=== PATIENT | male | born 1945 | race Caucasian/White ===

== ENCOUNTER 2016-06-08 08:16 | Day surgery (SDC) | payer MEDICARE ==
[2016-06-02 12:48] VITALS: BMI 37.3
[~2016-06-08 08:16] MED LIST: LACTATED RINGERS 1,000 ML IV SCH
[2016-06-08 08:49] VITALS: RESP 18; TEMP 97.9
[2016-06-08] MEDS ORDERED: PROPOFOL 10 MG/ML 20 ML VIAL IV ONE (08:55)
--- NOTE | 2016-06-08 09:35 | P.PCN ---
Date of Procedure: 06/08/16 Procedure(s) Performed: Procedure: Colonoscopy and polypectomy. Preoperative diagnosis: Hemoccult-positive stools. Postoperative diagnosis: 1. Small/diminutive sigmoid polyps snared but no large polyps or cancer. 2. Sigmoid diverticulosis with no evidence of acute diverticulitis or strictures. 3. Low-grade internal hemorrhoids not bleeding at the time of this exam. Preparation: HalfLytely prep. Sedation: Was provided by anesthesia. Brief clinical history: The patient is a 70-year-old male who is referred for this evaluation for screening for neoplasia because of finding of occult blood in his stools. He had no prior colonoscopy. The patient has rare intermittent rectal bleeding. No abdominal pains, change in bowel habits or any family history of colon cancer. This would be his first colonoscopy. Procedure: With the patient on his left lateral decubitus position and after informed consent and adequate sedation, the perianal area was inspected and it did not show any fissures or fistulas. There were no masses felt on digital rectal examination. The Olympus CFQ 160L video colonoscope was then inserted in the rectum in the usual fashion and advanced to the cecum. There were a few diverticular orifices seen scattered in the sigmoid with no evidence of acute diverticulitis or strictures. The mucosa appeared healthy. There were 2 small/ diminutive polyps in the distal sigmoid that I snared and retrieved by suction but there were no large polyps or cancer. I retroflexed endoscope in the rectum before the endoscope was withdrawn. Low-grade internal hemorrhoids were noted but there was no evidence of bleeding. The patient tolerated the procedure well. Plan: The patient was reassured. Discussed dietary measures and local care for hemorrhoids. Consideration can be given for repeat exam in 5 years depending on his overall health at that time. He will follow up with you as planned.
[2016-06-08 09:38] VITALS: BP 129/73; PULSE 90
== END 2016-06-08 09:56 | disposition home or self-care (01) ==
LOC: ORWHC2ENDO 08:16
DX: D12.5 Benign neoplasm of sigmoid colon (principal); K64.8 Other hemorrhoids; K92.1 Melena; K57.30 Diverticulosis of large intestine without perforation or abscess without bleeding; Z88.8 Allergy status to other drugs, medicaments and biological substances; Z79.899 Other long term (current) drug therapy
CPT/HCPCS: 88305; 45385; J2704; 99153

== ENCOUNTER → 2017-01-20 | Outpatient (CLI) | payer MEDICARE ==
[2017-01-20 17:56] LABS: Blood Urea Nitrogen 11 mg/dL (9-20); Non-African American GFR(MDRD) >60 (>60 ml/min/1.73 sqM)
--- NOTE | 2017-01-20 20:02 | CT ---
EXAMINATION TYPE: CT abdomen pelvis w con DATE OF EXAM: 01/20/2017 COMPARISON: 10/27/2010 HISTORY: Genrealized abdominal pain. CT DLP: 1776.8 mGycm Automated exposure control for dose reduction was used. TECHNIQUE: Helical acquisition of images was performed from the lung bases through the pelvis. CONTRAST: Performed with Oral Contrast and with IV Contrast, patient injected with 100 mL of Omnipaque 300. FINDINGS: Lung bases are clear of consolidation. There is no pleural effusion. Liver spleen pancreas gallbladder appear normal. Bile ducts are not dilated. There is no adrenal mass. There are multiple surgical clips related to right nephrectomy. Left kidney shows normal size and contour. There is no hydronephrosis. There is no retroperitoneal adenopathy. I see no intestinal wall thickening. There are no dilated loops. Bladder distends smoothly. Abdominal aorta is atheromatous. There are spondylotic changes in the lumbar spine with evidence for some mult ilevel lumbar spinal stenosis. There are a few diverticula in the sigmoid colon. IMPRESSION: RIGHT NEPHRECTOMY. NO EVIDENCE OF RECURRENT TUMOR. THERE IS CLEARING OF LEFT RENAL CORTICAL CYST COMP ARED TO OLD EXAM. ATHEROSCLEROTIC VASCULAR DISEASE. MILD COLONIC DIVERTICULOSIS. MILD MULTILEVEL LUMB AR SPINAL STENOSIS.
== END | disposition home or self-care (01) ==
LOC: RADCTMAIN 17:19
DX: K57.30 Diverticulosis of large intestine without perforation or abscess without bleeding (principal); I70.90 Unspecified atherosclerosis; Z90.5 Acquired absence of kidney
CPT/HCPCS: 82565; 84520; 74177; 36415; Q9967

== ENCOUNTER 2017-08-03 11:41 | Observation (INO) | payer MEDICARE ==
[2017-08-03] MEDS ORDERED: MECLIZINE 12.5 MG TAB PO STA (12:09)
--- NOTE | 2017-08-03 12:55 | CT ---
EXAMINATION TYPE: CT brain wo con DATE OF EXAM: 08/03/2017 COMPARISON: NONE HISTORY: Weak feeling, near syncopal CT DLP: [address] of the brain was performed. The ventricles, basal cisterns and sulci overlying the cerebral convexities demonstrate mild enlargem ent. There is no evidence for intracranial hemorrhage or sulcal effacement. There is decreased attenuation about the periventricular white matter and deep white matter of both c erebral hemispheres, compatible with chronic small vessel ischemia. Differential diagnosis does inclu de demyelination. No mass effects are seen.No midline shift. Osseous calvarium is intact. If symptoms persist consider MRI. IMPRESSION: 1. Age related atrophic and chronic small vessel ischemic change without acute intracranial process s een at this time.
[2017-08-03 13:03] LABS: INR 1.2 (<1.2); Prothrombin Time 11.1 sec (9.0-12.0)
--- NOTE | 2017-08-03 13:08 | XR ---
EXAMINATION TYPE: XR chest 2V DATE OF EXAM: 08/03/2017 COMPARISON: 08/23/2013 HISTORY: Shortness of breath TECHNIQUE: Frontal and lateral views of the chest are obtained. FINDINGS: Scattered senescent parenchymal changes noted. No evidence for infiltrate. No evidence for atelectasis. Cardiomegaly with pulmonary venous congestion. No evidence for overt failure at this time. Mediastinal structures are stable and grossly unremarkable. No evidence for hilar prominence. Degenerative changes dorsal spine. IMPRESSION: 1. Cardiomegaly with pulmonary venous congestion. No evidence for overt failure at this time.
[2017-08-03 13:18] LABS: Basophils % (A) 0 %; Eosinophils # (A) 0.1 k/uL (0-0.7); Eosinophils % (A) 1 %; HCT 46.9 % (39.0-53.0); HGB 14.9 gm/dL (13.0-17.5); Lymphocytes # (A) 1.2 k/uL (1.0-4.8); Lymphocytes % (A) 14 %; MCH 30.5 pg (25.0-35.0); MCHC 31.8 g/dL (31.0-37.0); MCV 95.9 fL (80.0-100.0); Mean Platelet Volume 7.2; Monocytes # (A) 0.6 k/uL (0-1.0); Monocytes % (A) 7 %; Neutrophils # (A) 6.8 k/uL (1.3-7.7); Neutrophils % (A) 76 %; Platelet Count 205 k/uL (150-450); RBC 4.89 m/uL (4.30-5.90); RDW 14.1 % (11.5-15.5); WBC 8.9 k/uL (3.8-10.6)
[2017-08-03 13:27] LABS: Appearance,Urine Clear (Clear); Bilirubin,Urine Negative (Negative); Blood,Urine Negative (Negative); Color,Urine Yellow; Glucose,Urine (UA) Negative (Negative); Ketones,Urine Negative (Negative); Leukocyte Esterase,Urine Negative (Negative); Nitrite,Urine Negative (Negative); PH, Urine 5.5 (5.0-8.0); Protein,Urine Trace (Negative); Specific Gravity,Urine 1.019 (1.001-1.035); Urobilinogen,Urine <2.0 mg/dL (<2.0)
[2017-08-03 13:29] LABS: ALT 30 U/L (21-72); AST 21 U/L (17-59); Albumin 3.6 g/dL (3.5-5.0); Alcohol <10 mg/dL; Alkaline Phosphatase 70 U/L (38-126); Anion Gap 10 mmol/L; Blood Urea Nitrogen 18 mg/dL (9-20); Calcium 8.9 mg/dL (8.4-10.2); Carbon Dioxide 30 mmol/L (22-30); Chloride 100 mmol/L (98-107); Glucose 96 mg/dL (74-99); Potassium 4.2 mmol/L (3.5-5.1); Sodium 140 mmol/L (137-145); Total Bilirubin 0.7 mg/dL (0.2-1.3); Total Protein 6.1 g/dL (6.3-8.2)
[2017-08-03 13:51] LABS: Amphetamine Screen,Urine Not Detected (NotDetected); Barbiturate Screen,Urine Not Detected (NotDetected); Benzodiazepines Screen,Urine Not Detected (NotDetected); Cocaine Screen,Urine Not Detected (NotDetected); Methadone Screen, Urine Not Detected (NotDetected); Opiate Screen,Urine Not Detected (NotDetected); Oxycodone Screen, Urine Not Detected (NotDetected); Phencyclidine Screen,Urine Not Detected (NotDetected); Tricyclic Antidepressant,Urine Not Detected (NotDetected); Urn Cannabinoid Scrn Detected (NotDetected)
[2017-08-03] MEDS ORDERED: ONDANSETRON 4 MG/2 ML VIAL IVP PRN ×2 (14:42→15:39)
[2017-08-03] MEDS ORDERED: NALOXONE 0.4 MG/ML 1 ML VIAL IV PRN (14:42)
--- NOTE | 2017-08-03 14:42 | ED ---
Dizziness HPI - General Chief Complaint: Dizziness Stated Complaint: Nausea Time Seen by Provider: 08/03/17 11:52 Source: patient, EMS Mode of arrival: EMS Limitations: no limitations - History of Present Illness Initial Comments: Patient complains of some dizziness today. He states that he developed left- sided weakness, which has resolved. However, he still feels dizzy. He does not feel like he can walk. He denies any chest or back pain. He has no belly pain. He has no nausea or vomiting. He states that he took a marijuana brownie earlier today. Earlier today, he was out raking, and had no weakness, dizziness or trouble walking at that time. He has no change in vision or hearing. He has no neck pain or stiffness. He has no belly pain. - Related Data Home Medications Medication Instructions Recorded Confirmed Multivitamins, Thera [Multivitamin] 1 tab PO BID 06/02/16 08/03/17 Gabapentin [Neurontin] 300 mg PO TID PRN 08/03/17 08/03/17 Vit C/E/Zn/Coppr/Lutein/Zeaxan 1 cap PO DAILY 08/03/17 08/03/17 [Preservision Areds 2 Softgel] Allergies Allergy/AdvReac Type Severity Reaction Status Date / Time lidocaine Allergy Lightheaded, Verified 08/03/17 12:10 low heart beat Review of Systems ROS Statement: Those systems with pertinent positive or pertinent negative responses have been documented in the HPI. ROS Other: All systems not noted in ROS Statement are negative. Past Medical History Past Medical History: Cancer, Eye Disorder Additional Past Medical History / Comment(s): Guaic positive stool. Kidney CA. Left eye detached retina.Macular degeneration. History of Any Multi-Drug Resistant Organisms: None Reported Past Surgical History: Back Surgery Additional Past Surgical History / Comment(s): Rt kidney removed. Lt eye surg x3 for detacted retina. Jesus cataract surg. Past Anesthesia/Blood Transfusion Reactions: Previous Problems w/ Anesthesia Additional Past Anesthesia/Blood Transfusion Reaction / Comment(s): States low heart rate & lt-headed with Lidocaine via ?epidural. Difficult intubation. Past Psychological History: No Psychological Hx Reported Smoking Status: Current every day smoker Past Alcohol Use History: Occasional Past Drug Use History: None Reported - Past Family History Mother Family Medical History: Cancer Additional Family Medical History / Comment(s): Brain CA. General Exam Limitations: no limitations General appearance: alert, in no apparent distress Head exam: Present: atraumatic, normocephalic, normal inspection Eye exam: Present: normal appearance, PERRL, EOMI. Absent: scleral icterus, conjunctival injection, periorbital swelling ENT exam: Present: normal exam, mucous membranes moist Neck exam: Present: normal inspection. Absent: tenderness, meningismus, lymphadenopathy Respiratory exam: Present: normal lung sounds bilaterally. Absent: respiratory distress, wheezes, rales, rhonchi, stridor Cardiovascular Exam: Present: regular rate, normal rhythm, normal heart sounds. Absent: systolic murmur, diastolic murmur, rubs, gallop, clicks GI/Abdominal exam: Present: soft, normal bowel sounds. Absent: distended, tenderness, guarding, rebound, rigid Extremities exam: Present: normal inspection, full ROM, normal capillary refill. Absent: tenderness, pedal edema, joint swelling, calf tenderness Back exam: Present: normal inspection Neurological exam: Present: alert, oriented X3, CN II-XII intact Psychiatric exam: Present: normal affect, normal mood Skin exam: Present: warm, dry, intact, normal color. Absent: rash Course Vital Signs 08/03/17 08/03/17 11:46 14:00 Temperature 96.9 F L Pulse Rate 84 96 Respiratory 18 18 Rate Blood Pressure 125/72 126/63 O2 Sat by Pulse 93 L 93 L Oximetry EKG Findings - EKG Comments: EKG Findings:: Twelve-lead EKG shows ventricular rate 97 bpm, normal CO interval and QRS complexes, no ST elevation or depression, interpreted by me as normal sinus rhythm. Medical Decision Making - Medical Decision Making Patient presents with dizziness, left-sided weakness which has resolved. CT the head is negative. Laboratory studies are normal. This could be related to a TIA. Patient states he can't walk well and he is afraid of falling over. Therefore he will be admitted for observation and neurology consultation. - Lab Data Result diagrams: 08/03/17 11:55 08/03/17 12:56 Lab Results 08/03/17 08/03/17 08/03/17 Range/Units 11:55 11:55 12:56 WBC 8.9 (3.8-10.6) k/uL RBC 4.89 (4.30-5.90) m/uL Hgb 14.9 (13.0-17.5) gm/dL Hct 46.9 (39.0-53.0) % MCV 95.9 (80.0-100.0) fL MCH 30.5 (25.0-35.0) pg MCHC 31.8 (31.0-37.0) g/dL RDW 14.1 (11.5-15.5) % Plt Count 205 (150-450) k/uL Neutrophils % 76 % Lymphocytes % 14 % Monocytes % 7 % Eosinophils % 1 % Basophils % 0 % Neutrophils # 6.8 (1.3-7.7) k/uL Lymphocytes # 1.2 (1.0-4.8) k/uL Monocytes # 0.6 (0-1.0) k/uL Eosinophils # 0.1 (0-0.7) k/uL Basophils # 0.0 (0-0.2) k/uL PT 11.1 (9.0-12.0) sec INR 1.2 H (<1.2) Sodium 140 (137-145) mmol/L Potassium 4.2 (3.5-5.1) mmol/L Chloride 100 (98-107) mmol/L Carbon Dioxide 30 (22-30) mmol/L Anion Gap 10 mmol/L BUN 18 (9-20) mg/dL Creatinine 0.78 (0.66-1.25) mg/dL Est GFR (CKD-EPI)AfAm >90 (>60 ml/min/1.73 sqM) Est GFR (CKD-EPI)NonAf >90 (>60 ml/min/1.73 sqM) Glucose 96 (74-99) mg/dL Calcium 8.9 (8.4-10.2) mg/dL Total Bilirubin 0.7 (0.2-1.3) mg/dL AST 21 (17-59) U/L ALT 30 (21-72) U/L Alkaline Phosphatase 70 (38-126) U/L Troponin I (0.000-0.034) ng/mL NT-Pro-B Natriuret Pep pg/mL Total Protein 6.1 L (6.3-8.2) g/dL Albumin 3.6 (3.5-5.0) g/dL Urine Color Urine Appearance (Clear) Urine pH (5.0-8.0) Ur Specific Petal (1.001-1.035) Urine Protein (Negative) Urine Glucose (UA) (Negative) Urine Ketones (Negative) Urine Blood (Negative) Urine Nitrite (Negative) Urine Bilirubin (Negative) Urine Urobilinogen (<2.0) mg/dL Ur Leukocyte Esterase (Negative) Urine Opiates Screen (NotDetected) Ur Oxycodone Screen (NotDetected) Urine Methadone Screen (NotDetected) Ur Propoxyphene Screen (NotDetected) Ur Barbiturates Screen (NotDetected) U Tricyclic Antidepress (NotDetected) Ur Phencyclidine Scrn (NotDetected) Ur Amphetamines Screen (NotDetected) U Methamphetamines Scrn (NotDetected) U Benzodiazepines Scrn (NotDetected) Urine Cocaine Screen (NotDetected) U Marijuana (THC) Screen (NotDetected) Serum Alcohol <10 mg/dL 08/03/17 08/03/17 08/03/17 Range/Units 13:10 13:10 Unknown WBC (3.8-10.6) k/uL RBC (4.30-5.90) m/uL Hgb (13.0-17.5) gm/dL Hct (39.0-53.0) % MCV (80.0-100.0) fL MCH (25.0-35.0) pg MCHC (31.0-37.0) g/dL RDW (11.5-15.5) % Plt Count (150-450) k/uL Neutrophils % % Lymphocytes % % Monocytes % % Eosinophils % % Basophils % % Neutrophils # (1.3-7.7) k/uL Lymphocytes # (1.0-4.8) k/uL Monocytes # (0-1.0) k/uL Eosinophils # (0-0.7) k/uL Basophils # (0-0.2) k/uL PT (9.0-12.0) sec INR (<1.2) Sodium (137-145) mmol/L Potassium (3.5-5.1) mmol/L Chloride (98-107) mmol/L Carbon Dioxide (22-30) mmol/L Anion Gap mmol/L BUN (9-20) mg/dL Creatinine (0.66-1.25) mg/dL Est GFR (CKD-EPI)AfAm (>60 ml/min/1.73 sqM) Est GFR (CKD-EPI)NonAf (>60 ml/min/1.73 sqM) Glucose (74-99) mg/dL Calcium (8.4-10.2) mg/dL Total Bilirubin (0.2-1.3) mg/dL AST (17-59) U/L ALT (21-72) U/L Alkaline Phosphatase (38-126) U/L Troponin I (0.000-0.034) ng/mL NT-Pro-B Natriuret Pep 722 pg/mL Total Protein (6.3-8.2) g/dL Albumin (3.5-5.0) g/dL Urine Color Yellow Urine Appearance Clear (Clear) Urine pH 5.5 (5.0-8.0) Ur Specific Petal 1.019 (1.001-1.035) Urine Protein Trace H (Negative) Urine Glucose (UA) Negative (Negative) Urine Ketones Negative (Negative) Urine Blood Negative (Negative) Urine Nitrite Negative (Negative) Urine Bilirubin Negative (Negative) Urine Urobilinogen <2.0 (<2.0) mg/dL Ur Leukocyte Esterase Negative (Negative) Urine Opiates Screen Not Detected (NotDetected) Ur Oxycodone Screen Not Detected (NotDetected) Urine Methadone Screen Not Detected (NotDetected) Ur Propoxyphene Screen Not Detected (NotDetected) Ur Barbiturates Screen Not Detected (NotDetected) U Tricyclic Antidepress Not Detected (NotDetected) Ur Phencyclidine Scrn Not Detected (NotDetected) Ur Amphetamines Screen Not Detected (NotDetected) U Methamphetamines Scrn Not Detected (NotDetected) U Benzodiazepines Scrn Not Detected (NotDetected) Urine Cocaine Screen Not Detected (NotDetected) U Marijuana (THC) Screen Detected H (NotDetected) Serum Alcohol mg/dL 08/03/17 Range/Units Unknown WBC (3.8-10.6) k/uL RBC (4.30-5.90) m/uL Hgb (13.0-17.5) gm/dL Hct (39.0-53.0) % MCV (80.0-100.0) fL MCH (25.0-35.0) pg MCHC (31.0-37.0) g/dL RDW (11.5-15.5) % Plt Count (150-450) k/uL Neutrophils % % Lymphocytes % % Monocytes % % Eosinophils % % Basophils % % Neutrophils # (1.3-7.7) k/uL Lymphocytes # (1.0-4.8) k/uL Monocytes # (0-1.0) k/uL Eosinophils # (0-0.7) k/uL Basophils # (0-0.2) k/uL PT (9.0-12.0) sec INR (<1.2) Sodium (137-145) mmol/L Potassium (3.5-5.1) mmol/L Chloride (98-107) mmol/L Carbon Dioxide (22-30) mmol/L Anion Gap mmol/L BUN (9-20) mg/dL Creatinine (0.66-1.25) mg/dL Est GFR (CKD-EPI)AfAm (>60 ml/min/1.73 sqM) Est GFR (CKD-EPI)NonAf (>60 ml/min/1.73 sqM) Glucose (74-99) mg/dL Calcium (8.4-10.2) mg/dL Total Bilirubin (0.2-1.3) mg/dL AST (17-59) U/L ALT (21-72) U/L Alkaline Phosphatase (38-126) U/L Troponin I <0.012 (0.000-0.034) ng/mL NT-Pro-B Natriuret Pep pg/mL Total Protein (6.3-8.2) g/dL Albumin (3.5-5.0) g/dL Urine Color Urine Appearance (Clear) Urine pH (5.0-8.0) Ur Specific Petal (1.001-1.035) Urine Protein (Negative) Urine Glucose (UA) (Negative) Urine Ketones (Negative) Urine Blood (Negative) Urine Nitrite (Negative) Urine Bilirubin (Negative) Urine Urobilinogen (<2.0) mg/dL Ur Leukocyte Esterase (Negative) Urine Opiates Screen (NotDetected) Ur Oxycodone Screen (NotDetected) Urine Methadone Screen (NotDetected) Ur Propoxyphene Screen (NotDetected) Ur Barbiturates Screen (NotDetected) U Tricyclic Antidepress (NotDetected) Ur Phencyclidine Scrn (NotDetected) Ur Amphetamines Screen (NotDetected) U Methamphetamines Scrn (NotDetected) U Benzodiazepines Scrn (NotDetected) Urine Cocaine Screen (NotDetected) U Marijuana (THC) Screen (NotDetected) Serum Alcohol mg/dL Disposition Clinical Impression: Transient cerebral ischemia Disposition: ADMITTED IP TO THIS HOSP Condition: Fair Referrals: [facility],Clinic [Primary Care Provider] - 1-2 days
[2017-08-03] MEDS ORDERED: GABAPENTIN 300 MG CAP PO PRN (14:44)
[2017-08-03] MEDS ORDERED: ASPIRIN 81 MG PO STA (15:35)
[2017-08-03] MEDS ORDERED: CALCIUM CARBONATE 500 MG CHEWABLE PO PRN (15:39)
[2017-08-03] MEDS ORDERED: ACETAMINOPHEN TAB 325 MG TAB PO PRN (15:39)
[2017-08-03] MEDS ORDERED: LABETALOL 5 MG/ML VIAL MDV IVP PRN (15:39)
[2017-08-03] MEDS ORDERED: HYDROcodone/APAP 5-325MG 1 EACH TAB PO PRN (16:22)
[2017-08-03] MEDS ORDERED: ALBUTEROL NEBULIZED 2.5 MG/3 ML INHALATION PRN (16:22)
--- NOTE | 2017-08-03 16:36 | P.HPIM ---
History of Present Illness H&P Date: 08/03/17 Chief Complaint: dizziness patient is a 71-year-old male with a past medical history of melanoma , kidney cancer, emphysema on home oxygen, and left eye retinal detachment presented to the emergency department with complaints of dizziness. On arrival to the ER his vital signs were within normal limits. Laboratory analysis was essentially unremarkable. Head CT showed age-related atrophy with small vessel ischemic changes. His chest x-ray demonstrated no acute process. His EKG showed sinus rhythm at a rate of 97 with PVCs, normal axis, normal intervals, and no ST-T wave changes. He was given a dose of Antivert but his symptoms did not resolve. Arrangements were made for admission for observation. Patient seen and examined at bedside in the emergency department. He states that he started experiencing whole body weakness and dizziness at 10:30 AM. It worsened until 11 AM. His family and encouraged him to come to the emergency department. He states he felt like he was given a pass out. He did not have any acute changes in vision. He did not feel so the room was spinning. He denied chest pain, shortness of breath, nausea, and vomiting. He is still having intermittent dizziness, but the weakness has resolved. he has not had any recent cough, cold, fever, or flulike symptoms. He has not recently started or stopped any medications. He denies eating or drinking anything unusual, or changes in his usual activity. However he did admit to the ER to eating a marijuana brownie. He also complains of chronic thoracic back pain that started after he had a melanoma removed approximately one year ago. He states the squeezing sensation starts in the center of his back he then has radiation down his left leg and around his left abdomen. He describes it as a squeezing sensation and feeling like there is something under his skin. He has tried Neurontin in the past without success. However he was taking it on an as-needed basis. He states he is [facility]. Review of Systems General: no fever/chills, no rigors, no weight loss/weight gain, no unusual fatigue Eyes: no noticeable visual changes recently, had chronic visual loss, no loss of vision ENT: no rhinorrhea, no congestion, no sore throat Cardiovascular: no chest pain, no palpitations, + preyncope/ No syncope, no edema Pulmonary: no shortness of breath, no wheezing, no cough Abdominal: no abdominal pain, no constipation, no diarrhea, no vomiting, no nausea Genitourinary: no dysuria, no urinary frequency, no unusual discharge/odor Neuro: + paresthesias leg leg and left abdomen, no unusual paresis/paralysis, no headache, + dizziness Dermatologic: no unusual rashes, no unusual lesions, no unusual changes in nails Hematologic: no hemoptysis, no hematuria, no melena/hematochezia Psychiatric: no changes in mood or behaviors, no changes in sleep pattern Past Medical History Past Medical History: Cancer, Eye Disorder Additional Past Medical History / Comment(s): emphysema (patient states he is not aware of this but takes inhalers and uses oxygen at home), Kidney CA. Left eye detached retina.Macular degeneration. History of Any Multi-Drug Resistant Organisms: None Reported Past Surgical History: Back Surgery Additional Past Surgical History / Comment(s): Rt kidney removed. Lt eye surg x3 for detacted retina. Jesus cataract surg. Mohs surgery thoracic spine for melanoma. Past Anesthesia/Blood Transfusion Reactions: Previous Problems w/ Anesthesia Additional Past Anesthesia/Blood Transfusion Reaction / Comment(s): States low heart rate & lt-headed with Lidocaine via ?epidural. Difficult intubation. Past Psychological History: No Psychological Hx Reported Smoking Status: Current every day smoker Past Alcohol Use History: Occasional Additional Past Alcohol Use History / Comment(s): states that he drinks 2-3 beers 3 times weekly, and one day of the week he drinks 15 beers Past Drug Use History: None Reported Additional History: Lives with his , uses oxygen, no pain or walker use - Past Family History Mother Family Medical History: Cancer Additional Family Medical History / Comment(s): Brain CA. Father Family Medical History: CVA/TIA Medications and Allergies Home Medications Medication Instructions Recorded Confirmed Type Multivitamins, Thera [Multivitamin] 1 tab PO BID 06/02/16 08/03/17 History Gabapentin [Neurontin] 300 mg PO TID PRN 08/03/17 08/03/17 History Vit C/E/Zn/Coppr/Lutein/Zeaxan 1 cap PO DAILY 08/03/17 08/03/17 History [Preservision Areds 2 Softgel] Allergies Allergy/AdvReac Type Severity Reaction Status Date / Time lidocaine Allergy Lightheaded, Verified 08/03/17 12:10 low heart beat Physical Exam Osteopathic Statement: *. No significant issues noted on an osteopathic structural exam other than those noted in the History and Physical/Consult. Vitals: Vital Signs Temp Pulse Resp BP Pulse Ox 08/03/17 14:00 96 18 126/63 93 L 08/03/17 11:46 96.9 F L 84 18 125/72 93 L Intake and Output 08/03/17 08/03/17 08/03/17 06:59 14:59 22:59 Other: Weight 124.738 kg General: non toxic, no distress, appears at stated age,obese Derm: no unusual rashes/lesions no unusual ecchymoses, warm, dry Head: atraumatic, normocephalic, symmetric Eyes: EOMI, no lid lag, anicteric sclera, pupils equal round reactive to light, conjunctival injection on the left with purulent drainage ENT: Nose and ears atraumatic, no thrush, no pharyngeal erythema Neck: No thyromegaly, no cervical lymphadenopathy, trachea midline, supple Mouth: no lip lesion, mucus membranes moist Cardiovascular: S1S2 reg, no murmur, positive posterior tibial pulse bilateral, no edema, capillary refill less than 2 seconds Lungs: decreased bs bilateral, no rhonchi, no rales , no accessory muscle use Abdominal: soft, nontender to palpation, no guarding, no appreciable organomegaly, normal bowel sounds Ext: no gross muscle atrophy, muscle strength 5 out of 5 in all 4 extremities grossly, no contractures, Neuro: CN II-XI grossly intact, light touch intact all 4 extremities, finger to nose intact on right but poor, Psych: Alert, oriented, appropriate affect Results CBC & Chem 7: 08/03/17 11:55 08/03/17 12:56 Labs: Abnormal Lab Results - Last 24 Hours (Table) 08/03/17 08/03/17 08/03/17 Range/Units 11:55 12:56 13:10 INR 1.2 H (<1.2) Total Protein 6.1 L (6.3-8.2) g/dL Urine Protein (Negative) U Marijuana (THC) Screen Detected H (NotDetected) 08/03/17 Range/Units 13:10 INR (<1.2) Total Protein (6.3-8.2) g/dL Urine Protein Trace H (Negative) U Marijuana (THC) Screen (NotDetected) Comments: His EKG showed sinus rhythm at a rate of 97 with PVCs, normal axis, normal intervals, and no ST-T wave changes. Chest x-ray: report reviewed CT Scan - head: report reviewed Thrombosis Risk Factor Assmnt - DVT/VTE Prophylaxis DVT/VTE Prophylaxis: Pharmacologic Prophylaxis ordered Assessment and Plan Assessment: Dizziness - CVA vs vertigo vs arrhythmia - tele, echo - ASA, statin - speech/PT/OT consult - MRA/MRI brain - neuro check Back pain and parasthesia - check CT of cervical and thoracic spine - Pain control - consided repeat trial of gabapentin on chronic basis Emphysema without exacerbation - albuterol prn Chronic hypoxic respiraotry failure - O2 as needed Morbid obesity BMI 39.5 - structured outpatinet weight loss Tobacco absue - cessation - nicotine replacement Left eye conjunctivitis - cipro gtts X 5 days Chronic: macular degeneration retinal detachment Surrogate decision-maker: Narcisa CODE STATUS:Full, does not want vent penitentiary DVT prophylaxis: Lovenox Discussed with: Patient, family Anticipated discharge: 24-[address]: home A total of 60 minutes was spent on the care of this complex patient more than 50 % of the time was spent in counseling and care coordination.
[2017-08-03 17:14] LABS: Glucose,Whole Blood 113 mg/dL (75-99)
[2017-08-03 17:29] VITALS: BMI 39.4
[2017-08-03] MEDS: NICOTINE 21MG/24HR PATCH TRANSDERM SCH (17:58)
[2017-08-03] MEDS: CIPROFLOXACIN 0.3% OPHTH SOLN 5 ML BTL LEFT EYE SCH ×3 (17:58→23:08)
--- NOTE | 2017-08-03 19:25 | CT ---
EXAMINATION TYPE: CT CervThoracic spine wo con DATE OF EXAM: 08/03/2017 COMPARISON: NONE HISTORY: Pain and tingling CT DLP: 2216.2 mGycm Automated exposure control for dose reduction was used. FINDINGS: Total axial sections are obtained from the level of the skull base to L1 vertebra with no contrast. Cervical and thoracic vertebra have fairly normal alignment. There is anterior spurring in the lower cervical spine in the mid and lower thoracic spine. There is osteopenia. There is very subtle loss of height of a few mid thoracic vertebra. This is less than 10%. There is narrowing at C5-6 C6-7 disc s paces with spurring of the endplates. The skull base is intact. Posterior elements appear intact. The re is no cervical or thoracic paraspinal mass. I do not see any significant cervical or thoracic spin al stenosis. There is slight narrowing of the spinal canal at C5-6 C6-7 due to endplate spur formatio n. The canal measures 8 to 9 mm at C5-6. IMPRESSION: SPONDYLOTIC CHANGES ABOVE. OSTEOPENIA. MINIMAL INSUFFICIENCY COMPRESSION DEFORMITY IN THE MIDTHORA CIC VERTEBRA. SPONDYLOTIC CHANGES IN THE LOWER CERVICAL SPINE. NO SPINAL STENOSIS.
--- NOTE | 2017-08-03 19:49 | P.CNNES ---
History of Present Illness Consult date: 08/03/17 Reason for Consult: Patient with near syncope and dizziness. History of Present Illness: This patient is a 71-year-old right-handed white male was brought into the emergency room today with symptoms of dizziness and lightheadedness. Patient states that he was outdoors working in his yard raking when he became suddenly weak with generalized leg weakness and lightheadedness. He started to feel near syncopal and was able to go indoors and sat on his couch for several minutes. He was able to alert his who found him to be somewhat confused and complaining of lightheadedness. He did not have any true vertigo or spinning sensation but felt generally weak and disoriented slightly. The patient states that he has a history of having had back surgery in 2008 and subsequently was found also to have evidence of melanoma diagnosed in July 2016. He underwent 2 surgical procedures for removal of the melanoma. He has been having recurrent thoracic pain that seems to radiate onto his side mostly on his left side. As noted the melanoma was completely removed. He has been having recurrent pain in the thoracic region near the site of one of the biopsy excisions that was done for him. He had tried Neurontin but had not been taking Neurontin on any regular basis. He mentions he also has a history of renal cancer and did have one nephrectomy procedure done in the past. He was seen in the emergency room today by Dr. Rosado who did order a computed tomography scan of the brain. CAT scan of the brain revealed only age-related atrophy with small vessel ischemic changes. Patient also was sent for CT of the cervical and thoracic spine. The impression on this report indicated spondylitic changes with osteopenia and compression deformity in the mid thoracic vertebra. Spondylitic changes also in the lower cervical spine were noted with no evidence of spinal stenosis. We reviewed the results of the CAT scan of the brain and of the cervical and thoracic spine today with the patient. The patient states due to the severity of his back pain symptoms he did use a marijuana brownie as this seemed to give him some relief so he could do some work. Apparently he had taken one prior to going out and raking this morning. He also used a similar marijuana brownie for relief of back pain while he did some painting yesterday. It is unclear whether this may have also caused some of his symptoms of lightheadedness and slight confusion earlier today. The patient is now admitted and neurology has been consulted for further evaluation and recommendations. Review of Systems Constitutional: Denies chills, Denies fever Eyes: denies blurred vision, denies pain Ears, nose, mouth and throat: Denies headache, Denies sore throat Cardiovascular: Denies chest pain, Denies shortness of breath Respiratory: Denies cough Gastrointestinal: Denies abdominal pain, Denies diarrhea, Denies nausea, Denies vomiting Musculoskeletal: Denies myalgias Integumentary: Denies pruritus, Denies rash Neurological: Reports burning pain, Reports confusion, Reports paresthesias, Reports sensory deficit, Reports syncope, Reports tingling, Denies numbness, Denies weakness Psychiatric: Denies anxiety, Denies depression Endocrine: Denies fatigue, Denies weight change Past Medical History Past Medical History: Cancer, Eye Disorder Additional Past Medical History / Comment(s): emphysema (patient states he is not aware of this but takes inhalers and uses oxygen at home), Kidney CA. Left eye detached retina.Macular degeneration. History of Any Multi-Drug Resistant Organisms: None Reported Past Surgical History: Back Surgery Additional Past Surgical History / Comment(s): Rt kidney removed. Lt eye surg x3 for detacted retina. Jesus cataract surg. Mohs surgery thoracic spine for melanoma. Past Anesthesia/Blood Transfusion Reactions: Previous Problems w/ Anesthesia Additional Past Anesthesia/Blood Transfusion Reaction / Comment(s): States low heart rate & lt-headed with Lidocaine via ?epidural. Difficult intubation. Past Psychological History: No Psychological Hx Reported Smoking Status: Current every day smoker Past Alcohol Use History: Occasional Additional Past Alcohol Use History / Comment(s): states that he drinks 2-3 beers 3 times weekly, and one day of the week he drinks 15 beers Past Drug Use History: None Reported - Past Family History Mother Family Medical History: Cancer Additional Family Medical History / Comment(s): Brain CA. Father Family Medical History: CVA/TIA Medications and Allergies Home Medications Medication Instructions Recorded Confirmed Type Multivitamins, Thera [Multivitamin] 1 tab PO BID 06/02/16 08/03/17 History Gabapentin [Neurontin] 300 mg PO TID PRN 08/03/17 08/03/17 History Vit C/E/Zn/Coppr/Lutein/Zeaxan 1 cap PO DAILY 08/03/17 08/03/17 History [Preservision Areds 2 Softgel] Allergies Allergy/AdvReac Type Severity Reaction Status Date / Time lidocaine Allergy Lightheaded, Verified 08/03/17 12:10 low heart beat Physical Examination - Vital Signs Vital Signs: Vital Signs Temp Pulse Resp BP Pulse Ox 08/03/17 16:16 92 16 123/80 96 08/03/17 14:00 96 18 126/63 93 L 08/03/17 11:46 96.9 F L 84 18 125/72 93 L Intake and Output 08/03/17 08/03/17 08/03/17 06:59 14:59 22:59 Intake Total 238 Balance 238 Intake: Oral 238 Other: Weight 124.738 kg 124.738 kg - Constitutional General appearance: average body habitus, cooperative - EENT EENT: PERRL, mucous membranes moist - Respiratory Respiratory: lungs clear, normal breath sounds - Cardiovascular Cardiovascular: regular rate, normal S1, normal S2 Extremities: no peripheral edema bilaterally - Gastrointestinal Gastrointestinal: normoactive bowel sounds - Integumentary Integumentary: normal - Neurologic Cranial nerve examination: PERRL, EOMI, VFF, V1/V2/V3 grossly intact, face symmetric, tongue midline, intact gag reflex, intact corneal reflex, normal palatal elevation Speech examination: intact Sensorimotor examination: intact Detailed motor examination: grossly full strength in all extremities Motor examination - right side: 4/5: biceps, triceps, wrist flexion, wrist extension, recreational director, hip flexors, knee extensors, dorsiflexion, toe extension (EHL) , plantarflexion Motor examination - left side: 4/5: biceps, triceps, wrist flexion, wrist extension, recreational director, hip flexors, knee extensors, dorsiflexion, toe extension (EHL) , plantarflexion Detailed sensory examination: intact Reflex and gait examination: intact Reflexes: 1+: ankle, bicep, knee, tricep - Musculoskeletal Musculoskeletal: no pain - Psychiatric Psychiatric: mood/affect appropriate, cooperative Results - Laboratory Findings CBC and BMP: 08/03/17 11:55 08/03/17 12:56 Abnormal Lab Findings: Abnormal Labs 08/03/17 08/03/17 08/03/17 11:55 12:56 13:10 INR 1.2 H POC Glucose (mg/dL) Total Protein 6.1 L Urine Protein U Marijuana (THC) Screen Detected H 08/03/17 08/03/17 13:10 17:12 INR POC Glucose (mg/dL) 113 H Total Protein Urine Protein Trace H U Marijuana (THC) Screen Assessment and Plan (1) TIA (transient ischemic attack) Current Visit: Yes Status: Acute Code(s): G45.9 - TRANSIENT CEREBRAL ISCHEMIC ATTACK, UNSPECIFIED SNOMED Code(s): 935930999 (2) Near syncope Current Visit: Yes Status: Acute Code(s): R55 - SYNCOPE AND COLLAPSE SNOMED Code(s): 581267395 (3) History of melanoma excision Current Visit: Yes Status: Acute Code(s): Z98.890 - OTHER SPECIFIED POSTPROCEDURAL STATES; Z85.820 - PERSONAL HISTORY OF MALIGNANT MELANOMA OF SKIN SNOMED Code(s): 239804391 (4) Dizziness Current Visit: Yes Status: Acute Code(s): R42 - DIZZINESS AND GIDDINESS SNOMED Code(s): 842319792 Plan: This patient is a 71-year-old male being evaluated for recent episode of lightheadedness and near syncope and dizziness. Patient was outdoors this morning raking his yard when he became suddenly symptomatic. He went indoors and his noticed that he was having difficulties. EMS was called and he was brought into the emergency room for further evaluation. He was seen in the ER by Dr. Rosado. Computed tomography scan of the brain was ordered and revealed age related atrophy and chronic small vessel ischemic changes without acute intracranial process. He also had a computed tomography scan of the cervical and thoracic spine results of which are noted above. Patient apparently had consumed brownie containing marijuana as it was helpful for relief of some of his chronic pain symptoms related to his back. He has undergone resection of 2 melanoma sites at the [facility] in July 2016. Following this he has had recurrent pain radiating into his left thoracic region. CAT scan results are as noted above. Patient may be a candidate to retry Neurontin for management of neuropathic pain. We recommend patient undergo MRI/MRA of the brain to further evaluate for possibility of brainstem ischemia. Clinical history suggesting possible more findings for near syncope. We will continue close neurological follow-up of this patient during this admission. His overall prognosis at this time remains guarded. Case was discussed at length with the patient. All of his questions were answered. He is aware of our recommendations. Time with Patient: Greater than 30
[2017-08-03] MEDS ORDERED: ATORVASTATIN 80 MG TAB PO SCH (21:00)
--- NOTE | 2017-08-03 21:01 | ECHOF ---
Referral Reason:Thrombus MEASUREMENTS -------- HEIGHT: 175.3 cm WEIGHT: 127.0 kg BP: RVIDd: 3.4 cm (< 3.3) IVSd: 1.0 cm (0.6 - 1.1) LVIDd: 5.3 cm (3.9 - 5.3) LVPWd: 1.2 cm (0.6 - 1.1) EDV(Teich): 134 ml IVSs: 1.1 cm LVIDs: 4.5 cm LVPWs: 1.1 cm %IVS Thck: 9 % ESV(Teich): 94 ml EF(Teich): 29 % %FS: 14 % SV(Teich): 39 ml LA Diam: 4.0 cm (2.7 - 3.8) Ao Diam: 3.2 cm (2.0 - 3.7) AV Cusp: 2.2 cm (1.5 - 2.6) LA Diam: 4.0 cm (2.7 - 3.8) MV EXCURSION: 21.475 mm (> 18.000) MV EF SLOPE: 104 mm/s (70 - 150) EPSS: 0.5 cm MV E Javier: 0.72 m/s MV DecT: 224 ms MV Dec [place]oto: 3.2 m/s MV A Javier: 0.86 m/s MV E/A Ratio: 0.83 MV PHT: 65 ms E/E': 11.53 E': 0.06 m/s AV Vmax: 1.26 m/s AV maxP.36 mmHg TR Vmax: 2.00 m/s TR maxP.00 mmHg RAP: 5.00 mmHg RVSP: 21.00 mmHg FINDINGS -------- Sinus rhythm. Morbid Obesity This was a techncally difficult study with suboptimal views, , Definity utilized for enhancement of images. The left ventricular size is normal. There is mild concentric left ventricular hypertrophy. Overa ll left ventricular systolic function is low-normal with, an EF between 50 - 55 %. The right ventricle is normal in size. The left atrial size is normal. The right atrial size is normal. .5 Lumason utilized for Enhancement of images. The aortic valve is trileaflet, and appears structurally normal. No aortic stenosis or regurgitation. Mild mitral annular calcification present. Mild mitral regurgitation is present. Mild tricuspid regurgitation present. There is no evidence of pulmonary hypertension. The right v entricular systolic pressure, as measured by Doppler, is 21.00mmHg. There is no pulmonic regurgitation present. The aortic root size is normal. There is no pericardial effusion. CONCLUSIONS -------- 1. Morbid Obesity 2. This was a techncally difficult study with suboptimal views, , Definity utilized for enhancement o f images. 3. The left ventricular size is normal. 4. There is mild concentric left ventricular hypertrophy. 5. Overall left ventricular systolic function is low-normal with, an EF between 50 - 55 %. 6. The left atrial size is normal. 7. .5 Lumason utilized for Enhancement of images. 8. The aortic valve is trileaflet, and appears structurally normal. No aortic stenosis or regurgitati on. 9. Mild mitral annular calcification present. 10. Mild mitral regurgitation is present. 11. Mild tricuspid regurgitation present. 12. There is no evidence of pulmonary hypertension. 13. The right ventricular systolic pressure, as measured by Doppler, is 21.00mmHg. 14. There is no pulmonic regurgitation present. 15. The aortic root size is normal. 16. There is no pericardial effusion. [employer]MENT REPAIRER: Rody Marc RDCS
[2017-08-03] MEDS: FAMOTIDINE 20 MG TAB PO SCH (21:04)
[2017-08-03 21:11] LABS: Glucose,Whole Blood 103 mg/dL (75-99)
[2017-08-04] MEDS: CIPROFLOXACIN 0.3% OPHTH SOLN 5 ML BTL LEFT EYE SCH ×3 (03:58→11:36)
[2017-08-04 06:32] LABS: Glucose,Whole Blood 91 mg/dL (75-99)
[2017-08-04] MEDS ORDERED: LORazepam 2 MG/ML INJ IV PRN (07:24)
[2017-08-04 07:35] LABS: Anion Gap 9 mmol/L; Blood Urea Nitrogen 16 mg/dL (9-20); Calcium 8.9 mg/dL (8.4-10.2); Carbon Dioxide 30 mmol/L (22-30); Chloride 101 mmol/L (98-107); Cholesterol 157 mg/dL (<200); Glucose 82 mg/dL (74-99); HDL Cholesterol 50 mg/dL (40-60); LDL Cholesterol,Calculated 96 mg/dL (0-99); Potassium 4.4 mmol/L (3.5-5.1); Sodium 140 mmol/L (137-145); Triglycerides 54 mg/dL (<150)
[2017-08-04] MEDS ORDERED: ASPIRIN 325 MG TAB PO SCH (09:00)
[2017-08-04] MEDS ORDERED: ENOXAPARIN 40 MG/0.4 ML SYRINGE SQ SCH (09:00)
[2017-08-04] MEDS: FAMOTIDINE 20 MG TAB PO SCH (09:12)
[2017-08-04] MEDS: NICOTINE 21MG/24HR PATCH TRANSDERM SCH (09:12)
[2017-08-04 09:37] VITALS: RESP 18
--- NOTE | 2017-08-04 10:24 | MR ---
EXAMINATION TYPE: MR brain wo con DATE OF EXAM: 08/04/2017 8:25 AM COMPARISON: NONE HISTORY: CVA, dizziness FINDINGS: The ventricles, basal cisterns and sulci overlying the cerebral convexities are mildly enlarged. There is evidence of moderate periventricular white matter ischemic demyelination. Remote deep white matter insults are also noted. No acute edema is seen on diffusion weighted imaging. There is no evidence for midline shift or mass effect. Acute intracranial hemorrhage or extra-axial collection is not evident. The paranasal sinuses and mastoid air cells are well-aerated. Small mucous retention cyst or polyp ri ght maxillary sinus. IMPRESSION: Age-related atrophic and chronic small vessel ischemic change. No acute intracranial process at this time.
--- NOTE | 2017-08-04 10:28 | MR ---
EXAMINATION TYPE: MR angio head wo/neck wo/w con DATE OF EXAM: 08/04/2017 8:59 AM COMPARISON: NONE HISTORY: CVA, dizziness Three-dimensional [id number] cervical carotid MRA was performed with multiple intensity projectio n images submitted and source data reviewed at the workstation. 12.5 cc Gadavist was utilized. Right carotid system: There is mild plaque seen about the common carotid artery. Mild plaque is also seen at the origin and proximal aspect of the right internal carotid artery. Stenosis is estimated at less than 50%. No hemodynamically significant stenosis is appreciated. Right external carotid ar richard right vertebral artery are patent. Left carotid system: Mild plaque involving the left common carotid artery. Minimal to mild plaque or igin left ICA. No hemodynamically significant stenosis is appreciated. External carotid artery and the left vertebral artery are patent. IMPRESSION: 1. No hemodynamically significant stenosis is appreciated at this time. EXAMINATION TYPE: MR angio head wo/neck wo/w con DATE OF EXAM: 08/04/2017 8:59 AM COMPARISON: NONE HISTORY: CVA, dizziness Three-dimensional [id number] intracranial MRA was performed with multiple intensity projection im ages submitted and source data reviewed at the workstation. The vertebrobasilar system as well as intracranial portions of the internal carotid arteries and thei r major tributaries are patent. I do not see evidence for sizable aneurysm or vascular malformation. IMPRESSION: Normal study.
[2017-08-04 11:26] LABS: Glucose,Whole Blood 87 mg/dL (75-99)
[2017-08-04 11:47] VITALS: BP 127/68; PULSE 87; TEMP 98
[2017-08-04] MEDS ORDERED: VIT A,C & E-LUTEIN-MINERALS 1 EACH TAB PO SCH (12:00)
[2017-08-04] MEDS ORDERED: MULTIVITAMINS, THERA 1 EACH TAB PO SCH (12:00)
[2017-08-04 14:16] LABS: Hemoglobin A1C 5.5 % (4.0-6.0)
--- NOTE | 2017-08-04 14:46 | P.DS ---
Providers Date of admission: 08/03/17 14:42 Expected date of discharge: 08/04/17 Attending physician: Gretchen Bernardo DO Consults: 08/03/17 14:43 Consult Physician Routine Consulting Provider: Juliano Sandhu Consult Reason/Comments: tia Do you want consulting provider notified?: Yes Primary care physician: [facility] - Discharge Diagnosis(es) (1) Marijuana intoxication Status: Acute (2) Dizziness Status: Acute (3) Neuropathy Status: Acute (4) History of melanoma excision Status: Acute (5) Near syncope Status: Acute (6) Back pain Status: Acute (7) Conjunctivitis, left eye Status: Acute (8) Tobacco abuse Status: Acute (9) Chronic respiratory failure with hypoxia Status: Acute Hospital Course: Patient is a 71-year-old male with a past medical history of melanoma , kidney cancer, emphysema on home oxygen, and left eye retinal detachment presented to the emergency department with complaints of dizziness. On arrival to the ER his vital signs were within normal limits. Laboratory analysis was essentially unremarkable. Head CT showed age-related atrophy with small vessel ischemic changes. His chest x-ray demonstrated no acute process. His EKG showed sinus rhythm at a rate of 97 with PVCs, normal axis, normal intervals, and no ST-T wave changes. He was given a dose of Antivert but his symptoms did not resolve. Arrangements were made for admission for observation. He also complained of chronic thoracic back pain that started after he had a melanoma removed approximately one year ago. He has tried Neurontin in the past without success. However he was taking it on an as-needed basis. He states he is supposed to get a referral to neurology from the [place] shortly. he was monitored overnight. Blood pressure was normal limits.cholesterol profile is within normal limits. Troponins remained negative. He underwent a CT of the cervical and thoracic spinewhich showed spondylitic changes, osteopenia, and mild insufficiency compression deformity.the next morning he underwent an MRI of the brain which showed age-related atrophy and chronic small vessel ischemic changes. MRA of the head and neck showed no hemodynamically significant stenosis.he was seen by neurology who felt this was probable presyncopal episode. Patient admitted to eating a marijuana laced brownie. He states he's been doing this to help deal with the neuropathy and pain. He does not once prior and had no significant side effects. We determined that his dizziness and weakness likely stemmed from marijuana intoxication. We discussed a formal trial of gabapentin where he takes this 3 times a day. We will start with his 300 mg 3 times a day dosing and informed him that we can escalate from there. [facility] We had an extensive discussion stating that he needs to take this 3 times a day and not as needed for pain. [facility] will [facility]. He was determined stable for discharge. Patient seen and examined at bedside. Dizziness is resolved, weakness resolved , feeling much better. No chest pain or shortness of breath. Discussion as outlined above. Vital signs reviewed and stable. General: non toxic, no distress, appears at stated age Derm: warm, dry Head: atraumatic, normocephalic, symmetric Eyes: EOMI, no lid lag, anicteric sclera Mouth: no lip lesion, mucus membranes moist Cardiovascular: S1S2 reg, no murmur, positive posterior tibial pulse bilateral, Lungs: CTA bilateral, no rhonchi, no rales , no accessory muscle use Abdominal: soft, nontender to palpation, no guarding, no appreciable organomegaly Ext: no gross muscle atrophy, no edema, no contractures Neuro: CN II-XI grossly intact, no focal neuro deficits Psych: Alert, oriented, appropriate affect A total of 42 minutes of time were spent preparing this complex discharge summary. Pertinent Studies: CT of the cervical and thoracic spinewhich showed spondylitic changes, osteopenia, and mild insufficiency compression deformity. MRI of the brain which showed age-related atrophy and chronic small vessel ischemic changes MRA of the head and neck showed no hemodynamically significant stenosis. Patient Condition at Discharge: Stable Plan - Discharge Summary Discharge Rx Participant: No New Discharge Prescriptions: New Ciprofloxacin Ophth Soln [Ciloxan 0.3% Ophth Soln] 2 drops LEFT EYE Q4HR #1 bottle Continue Multivitamins, Thera [Multivitamin (formulary)] 1 tab PO BID Vit C/E/Zn/Coppr/Lutein/Zeaxan [Preservision Areds 2 Softgel] 1 cap PO DAILY Changed Gabapentin [Neurontin] 300 mg PO TID #90 cap Discharge Medication List Multivitamins, Thera [Multivitamin (formulary)] 1 tab PO BID 06/02/16 [History] Vit C/E/Zn/Coppr/Lutein/Zeaxan [Preservision Areds 2 Softgel] 1 cap PO DAILY [History] Ciprofloxacin Ophth Soln [Ciloxan 0.3% Ophth Soln] 2 drops LEFT EYE Q4HR #1 bottle 08/04/17 [Rx] Gabapentin [Neurontin] 300 mg PO TID #90 cap 08/04/17 [Rx] Follow up Appointment(s)/Referral(s): Juliano Sandhu MD [STAFF PHYSICIAN] - 08/26/17 10:15 am (Patient requested referral for nerve pain.) [facility] [Primary Care Provider] - 08/15/17 10:00 am ([phone] With Vickie FIERRO) Patient Instructions/Handouts: Transient Ischemic Attack (DC), Heart Healthy Diet (DC) Activity/Diet/Wound Care/Special Instructions: heart healthy diet Activity as tolerated. Gabapentin: Please take twice daily for the first 7 days, then increase to 3 times daily. May cause sedation do not drive or operate heavy machinery. Discharge Disposition: HOME SELF-CARE
== END 2017-08-04 13:21 | disposition home or self-care (01) ==
LOC: EC 11:41 → 6SEL 14:42
PROVIDERS: ADMIT Internal Medicine; ATTEND Internal Medicine
DX: F12.929 Cannabis use, unspecified with intoxication, unspecified (principal); R42 Dizziness and giddiness; R53.1 Weakness; R55 Syncope and collapse; G62.9 Polyneuropathy, unspecified; H10.9 Unspecified conjunctivitis; J96.11 Chronic respiratory failure with hypoxia; J43.9 Emphysema, unspecified; Z99.81 Dependence on supplemental oxygen; G89.29 Other chronic pain; M54.6 Pain in thoracic spine; R20.2 Paresthesia of skin; F17.200 Nicotine dependence, unspecified, uncomplicated; H35.30 Unspecified macular degeneration; Z68.39 Body mass index [BMI] 39.0-39.9, adult; E66.01 Morbid (severe) obesity due to excess calories; H33.22 Serous retinal detachment, left eye; Z90.5 Acquired absence of kidney; Z79.899 Other long term (current) drug therapy; Z88.4 Allergy status to anesthetic agent; Z85.528 Personal history of other malignant neoplasm of kidney; Z85.820 Personal history of malignant melanoma of skin; Z80.8 Family history of malignant neoplasm of other organs or systems; Z82.3 Family history of stroke; M85.80 Other specified disorders of bone density and structure, unspecified site
CPT/HCPCS: 99285 ×2; 96374; 36415; 93005; 83880; 80061; 80053; 80048; 84443; 84484 ×2; 85025; 85610; 81003; 80306; 80320; 83036; 71046; 72128; 72125; 70450; 70544; 70549; 70551; G0378 ×2; C8929; S4990 ×2; J2060; A9581; Q9950; 93306

== ENCOUNTER → 2018-09-06 | Outpatient (CLI) | payer OTHER ==
--- NOTE | 2018-09-06 15:13 | MR ---
MRI CERVICAL SPINE: CLINICAL HISTORY: Cervicalgia per order. Neck pain for 2 years per patient. TECHNIQUE: Multiplanar, multisequence imaging of the cervical spine is performed without and with IV contrast, 12 cc of gadolinium was given intravenously. COMPARISON: CT cervical spine August 03, 2017. FINDINGS: Sagittal images of the cervical spine show the craniocervical junction to remain within nor mal limits. Generalized canal narrowing throughout the cervical spine is noted. The cervical and upp er thoracic spinal cord is normal in course, caliber, and signal. There is stable grade 1 retrolisthe sis of C5 on C6 and to lesser degree C6 on C7. The vertebral body heights remain normal. Moderate dis c space narrowing and anterior spurring C5-C6 level and mild disc space narrowing and anterior spurri ng with Modic type I degenerative change C6-C7 level are noted. No suspicious postcontrast enhancemen t is seen. Axial images at the C2-C3 level shows right paracentral disc protrusion effacing and to rule out thec al sac on axial image 53 confirm sagittal image 10 with annular tear, bilateral neural foramina are p atent. Axial images at the C3-C4 level shows central disc protrusion effacing anterior thecal sac with mild bilateral neural foraminal narrowing axial image 43. Axial images at C4-C5 level shows central disc protrusion effacing anterior thecal sac with uncoverte bral facet degenerative changes causing moderate bilateral neural foraminal narrowing. Axial images at C5-C6 levels with spondylolisthesis and broad-based posterior disc protrusion effacin g anterior thecal sac and causing moderate to advanced bilateral neural foraminal narrowing. Axial images at C6-C7 level shows spondylolisthesis and broad-based upper central disc protrusion eff acing at the lateral thecal sac and causing moderate to advanced bilateral neural foraminal narrowing . Axial images at C7-T1 level are felt within normal limits. Uncovertebral facet spurring is seen gisel r on CT at this level bilaterally. IMPRESSION: Multilevel degenerative changes in the cervical spine most prominent at C5-C6 and C6-C7 l evel as detailed above.
== END | disposition home or self-care (01) ==
LOC: RADMRIMAIN 13:12
PROVIDERS: ATTEND Physician Assistant Medical
DX: M47.812 Spondylosis without myelopathy or radiculopathy, cervical region (principal)
CPT/HCPCS: 72156

== ENCOUNTER → 2018-09-14 | Outpatient (CLI) | payer OTHER ==
[~2018-09-14] MED LIST changes: -LACTATED RINGERS 1,000 ML IV SCH; +REGADENOSON 0.4 MG/5 ML SYRINGE IV ONE
--- NOTE | 2018-09-14 16:56 | NM ---
EXAMINATION TYPE: NM stress lexiscan cardiolite DATE OF EXAM: 09/14/2018 COMPARISON: NONE HISTORY: 72-year-old male with chest pain TECHNIQUE: After the intravenous administration of 10.16 mCi Tc 99m Sestamibi - Cardiolite resting S PECT images acquired 45 minutes post injection. The patient received 0.4mg Lexiscan, 25 mCi Tc 99m Sestamibi - Stress images obtained 30 minutes post injection FINDINGS: Review of stress and rest SPECT images demonstrates multiple areas of decreased perfusion particularl y on the rest images which becomes less pronounced on stress imaging. Some fixed areas along the infe roseptal wall are noted, again, more pronounced on rest imaging. Findings suggesting attenuation cayla fact. No distinct reversibility seen. Gated analysis shows appropriate wall motion but with an estima tani left ventricular ejection fraction of 48 %. TID was calculated at 1.0, within normal limits. IMPRESSION: Areas of decreased perfusion more pronounced on the rest imaging suggesting attenuation artifact. No definite suspicious reversibility is seen. However, note that estimated LVEF is calculated at 48% whi ch is diminished. Further clinical evaluation recommended.
--- NOTE | 2018-09-15 11:37 | P.STRESS ---
- Stress Test Note Stress Test Results/Findings: Exam Performed: NM stress lexiscan cardiolite Exam Date: 09/14/18 Reason for Exam: Chest Pain Height: 5 ft 10 in Weight: 113.398 kg Protocol: Lexiscan Stage: na Duration of Exercise: na Resting Heart Rate: 75 Resting Blood Pressure: 149/84 Maximum Achieved Heart Rate: 92 Maximum Achieved Blood Pressure: 149/84 85% PMHR: 126 100% PMHR: 148 METS: na Technologist Comment: Stress Test Results/Findings: Baseline heart is 75 beats a minute Baseline blood pressure 149/84 mmHg B centralization normal sinus rhythm and normal cardiac intervals Patient received Lexiscan infusion per protocol No ECG evidence for ischemia no significant heart rate or blood pressure changes Nuclear portion will be reported separately
== END | disposition home or self-care (01) ==
LOC: RADNMMAIN 08:33
PROVIDERS: ATTEND Physician Assistant Medical
DX: R94.31 Abnormal electrocardiogram [ECG] [EKG] (principal); R07.89 Other chest pain
CPT/HCPCS: 93017; 78452; A9500; J2785

== ENCOUNTER 2019-02-23 06:18 | Day surgery (SDC) | payer OTHER ==
[2019-02-20 15:41] VITALS: BMI 37.3
[~2019-02-23 06:18] MED LIST changes: +ALPRAZolam 0.25 MG TAB PO PRN; +ALPRAZolam 0.5 MG TAB PO PRN; +NITROGLYCERIN SL TABS 0.4 MG TAB SUBLINGUAL PRN; -REGADENOSON 0.4 MG/5 ML SYRINGE IV ONE; +SODIUM CHLORIDE 0.9% 1,000 ML in EMPTY BAG 1 BAG IV ONE
[2019-02-23] MEDS ORDERED: ATORVASTATIN 80 MG TAB PO ONE (07:00)
[2019-02-23] MEDS ORDERED: ASPIRIN 325 MG TAB PO ONE (07:00)
[2019-02-23 07:21] VITALS: TEMP 98.5
[2019-02-23] MEDS ORDERED: LIDOCAINE 1% INJ 10MG/ML (20 ML MDV) ONE (07:36)
[2019-02-23] MEDS ORDERED: VERAPAMIL 2.5 MG/ML 2 ML AMP ONE (07:36)
[2019-02-23] MEDS: MIDAZOLAM 2 MG/2 ML VIAL IV ONE ×2 (07:48→07:54)
[2019-02-23] MEDS ORDERED: HEPARIN SODIUM 1,000 UN/ML (10ML VL) ONE ×2 (07:59→08:01)
[2019-02-23] MEDS ORDERED: MIDAZOLAM 2 MG/2 ML VIAL IV ONE (08:00)
[2019-02-23] MEDS ORDERED: LIDOCAINE 1% INJ 10MG/ML (20 ML MDV) SQ ONE (08:00)
[2019-02-23] MEDS: VERAPAMIL SYRINGE (5 MG/10 ML) INTRAARTER ONE ×2 (08:02→08:08)
[2019-02-23] MEDS ORDERED: IOPAMIDOL-370 125ML BTL INJ ONE (08:08)
[2019-02-23] MEDS ORDERED: RX INFO: IV CONTRAST WAS GIVEN 1 EACH MISC MISCELLANE PRN (08:22)
[2019-02-23] MEDS ORDERED: SODIUM CHLORIDE 0.9% 1,000 ML IV SCH (08:30)
--- NOTE | 2019-02-23 08:37 | P.PCN ---
Date of Procedure: 02/23/19 Operative Findings: CARDIAC CATHETERIZATION PERFORMING PHYSICIAN: Manfred Rodgers MD, RPVI PROCEDURE PERFORMED: 1. Selective right and left coronary angiogram 2. Left heart catheterization INDICATION: This is a pleasant 73-year-old gentleman with a past medical history significant for hypertension and dyslipidemia who continues to have shortness of breath. A stress test was performed and came in to be unremarkable. An echocardiogram was done and showed cardiomyopathy with EF around 45%. Because of that a heart catheterization was advised to rule out severe coronary artery disease contributing to the shortness of breath as well as cardiomyopathy. COMPLICATION: None APPROACH: Right radial artery LEVEL OF SEDATION: Moderate Sedation a of 13 minutes PROCEDURE DESCRIPTION: After obtaining an informed consent, the patient was brought to cardiac garage laborer. Local anesthesia was performed using lidocaine subcutaneously. The right radial artery was cannulated using Seldinger technique, the guidewire passed easily, following that we advanced a 5-Lao sheath dilator assembly, the wire and dilator were removed and sheath was flushed. Following that, 2 mg of verapamil along with 5000 unit heparin were given. Selective right and left coronary angiogram using a 6-Lao JR4 and JL 3.5 catheters. Following that we did left heart catheterization using 6-Lao pigtail catheter. The procedure was completed there was no complication. SELECTIVE CORONARY ANGIOGRAM: The right coronary artery: Is a large caliber vessel and a dominant vessel. The mid RCA has mild disease only. Distally bifurcates into PDA and PLV branches and both appeared to be angiographically normal. Left main: It is angiographically normal. Bifurcates into left circumflex, ramus intermedius, and left anterior descending artery The left circumflex: Is a large caliber vessel and codominant vessel. The left circumflex in the distal portion has intermediate lesion appeared to be in the range of 50% only. The left anterior descending artery: Is a large caliber vessel and its angiographically normal. The midportion gives rises into a large diagonal branch which seems to be angiographically normal. HEMODYNAMICS: The LVEDP was 8 mmHg without significant gradient across aortic valve. CONCLUSION: 1. Mild disease involving the mid RCA 2. Intermediate disease involving the distal LCx 3. Normal LVEDP 4. No gradient across aortic valve POSTPROCEDURE MANAGEMENT: Medical treatment Follow-up with the patient
[2019-02-23 11:20] VITALS: PULSE 72
[2019-02-23 13:31] VITALS: BP 145/78; RESP 18
== END 2019-02-23 13:31 | disposition home or self-care (01) ==
LOC: CATHCVL 06:18
PROVIDERS: ATTEND Internal Medicine Interventional Cardiology
DX: I25.10 Atherosclerotic heart disease of native coronary artery without angina pectoris (principal); I42.9 Cardiomyopathy, unspecified; I10 Essential (primary) hypertension; E78.00 Pure hypercholesterolemia, unspecified; E78.5 Hyperlipidemia, unspecified; H54.8 Legal blindness, as defined in USA; Z87.891 Personal history of nicotine dependence; Z79.899 Other long term (current) drug therapy; Z82.49 Family history of ischemic heart disease and other diseases of the circulatory system
CPT/HCPCS: 93458; C1769; C1894; J2250; J2001; J1644; Q9967

== ENCOUNTER 2020-11-25 11:40 | Inpatient (IN) | payer OTHER, MEDICARE ==
[2020-11-25] MEDS ORDERED: HEPARIN SODIUM 1,000 UN/ML (10ML VL) IV ONE (12:26)
[2020-11-25] MEDS ORDERED: DILTIAZEM DRIP BOLUS FROM BAG 1 MG SOLN IV ONE (12:26)
--- NOTE | 2020-11-25 12:31 | ED ---
Arrhythmia/Palpitations HPI - General Chief Complaint: Arrhythmia/Palpitations Stated Complaint: Sent by PCP - irregular heartbeat Time Seen by Provider: 11/25/20 12:02 Source: patient, RN notes reviewed Mode of arrival: wheelchair Limitations: no limitations - History of Present Illness Initial Comments: This is a 74-year-old male with a history of a who was seen by Dr. Kramer today and sent here for evaluation he was found to have new onset atrial fibrillation with a rapid ventricular response. Patient has been having episodes of dizziness and lightheadedness also exertional dyspnea. He states is since been going on for quite some time 3 cannot pinpoint exactly when it started. He denies any chest pain fevers chills nausea vomiting sweats or other symptoms MD Complaint: rapid heart beat, palpitations, atrial fibrillation - Related Data Home Medications Medication Instructions Recorded Confirmed Vit C/E/Zn/Coppr/Lutein/Zeaxan 1 cap PO BID 08/03/17 11/25/20 [Preservision Areds 2 Softgel] Albuterol Sulfate [Proair Hfa] 2 puff INHALATION RT-Q6H PRN 02/23/19 11/25/20 Gabapentin [Neurontin] 400 mg PO BID 02/23/19 11/25/20 Metoprolol Tartrate [Lopressor] 25 mg PO BID 02/23/19 11/25/20 lisinopriL [Zestril] 2.5 mg PO HS 02/23/19 11/25/20 Albuterol Nebulized [Ventolin 2.5 mg INHALATION RT-QID PRN 11/25/20 11/25/20 Nebulized] Aspirin EC [Ecotrin Low Dose] 81 mg PO DAILY 11/25/20 11/25/20 Dextran 70/Hypromellose 1 drop BOTH EYES QID 11/25/20 11/25/20 [Lubricating Tears 0.1-0.3% Drp] Escitalopram [Lexapro] 10 mg PO DAILY 11/25/20 11/25/20 Lidocaine 4% Cream [Lmx 4] 1 applic TOPICAL BID PRN 11/25/20 11/25/20 Allergies Allergy/AdvReac Type Severity Reaction Status Date / Time atorvastatin [From Lipitor] AdvReac Muscle Pain Verified 11/25/20 13:41 Review of Systems ROS Statement: Those systems with pertinent positive or pertinent negative responses have been documented in the HPI. ROS Other: All systems not noted in ROS Statement are negative. Past Medical History Past Medical History: Cancer, Eye Disorder, Hearing Disorder / Deafness, Hyperlipidemia, Hypertension, Osteoarthritis (OA) Additional Past Medical History / Comment(s): Emphysema (takes inhalers and uses oxygen at home). Hx Kidney Cancer in 2006. Left eye detached retina. Wet Macular Degeneration right eye. Hx Melanoma on back. Bilateral hearing aid use, legally blind. History of Any Multi-Drug Resistant Organisms: None Reported Past Surgical History: Back Surgery Additional Past Surgical History / Comment(s): Right kidney removed. Left eye surgery X3 for detacted retina. Bilateral cataract surgery. Mohs surgery thoracic spine for melanoma. Past Anesthesia/Blood Transfusion Reactions: Previous Problems w/ Anesthesia Additional Past Anesthesia/Blood Transfusion Reaction / Comment(s): States low heart rate, light-headed and low BP X1 with anesthesia. "Got broke vocal cord and could not talk for 2 months after anesthesia one time." Past Psychological History: No Psychological Hx Reported Past Alcohol Use History: Daily Past Drug Use History: Marijuana - Past Family History Mother Family Medical History: Cancer Additional Family Medical History / Comment(s): Brain CA. Father Family Medical History: CVA/TIA General Exam - General Exam Comments Initial Comments: This is a well-developed well-nourished awake alert oriented 3 male Limitations: no limitations General appearance: alert, in no apparent distress Head exam: Present: atraumatic, normocephalic, normal inspection Eye exam: Present: normal appearance, PERRL, EOMI. Absent: scleral icterus, conjunctival injection, periorbital swelling ENT exam: Present: normal exam, mucous membranes moist Neck exam: Present: normal inspection. Absent: tenderness, meningismus, lymphadenopathy Respiratory exam: Present: normal lung sounds bilaterally. Absent: respiratory distress, wheezes, rales, rhonchi, stridor Cardiovascular Exam: Present: tachycardia, irregular rhythm. Absent: systolic murmur, diastolic murmur, rubs, gallop, clicks GI/Abdominal exam: Present: soft, normal bowel sounds. Absent: distended, tenderness, guarding, rebound, rigid Extremities exam: Present: full ROM, normal capillary refill, pedal edema (Trace edema). Absent: tenderness, joint swelling, calf tenderness Back exam: Present: normal inspection Neurological exam: Present: alert, oriented X3, CN II-XII intact Psychiatric exam: Present: normal affect, normal mood Skin exam: Present: warm, dry, intact, normal color. Absent: rash Course Vital Signs 11/25/20 11/25/20 11/25/20 11:58 12:35 12:55 Temperature 98.2 F Pulse Rate 76 186 H 161 H Respiratory 20 20 20 Rate Blood Pressure 134/114 102/89 102/85 O2 Sat by Pulse 95 96 96 Oximetry 11/25/20 11/25/20 11/25/20 13:00 13:05 13:15 Temperature Pulse Rate 146 H 165 H 152 H Respiratory 20 20 20 Rate Blood Pressure 112/79 104/82 106/77 O2 Sat by Pulse 92 L 94 L 94 L Oximetry 11/25/20 11/25/20 11/25/20 13:20 13:25 13:45 Temperature Pulse Rate 149 H 144 H 137 H Respiratory 20 20 20 Rate Blood Pressure 95/83 97/82 113/99 O2 Sat by Pulse 93 L 94 L 95 Oximetry 11/25/20 13:50 Temperature Pulse Rate 135 H Respiratory 20 Rate Blood Pressure 140/85 O2 Sat by Pulse 94 L Oximetry EKG Findings - EKG Results: EKG: interpreted by ERMD (Atrial fibrillation with a rapid ventricular response rate was 79 QRS 106 QT since QTC 262/[address]-T wave configuration) Medical Decision Making - Medical Decision Making I did discuss [employer] the patient family as well as with Dr. maynard. Patient be admitted with cardiology consultation from Dr. Kramer. - Lab Data Result diagrams: 11/25/20 12:33 11/25/20 12:33 Lab Results 11/25/20 11/25/20 11/25/20 Range/Units 12:33 12:33 12:33 WBC 7.3 (3.8-10.6) k/uL RBC 3.83 L (4.30-5.90) m/uL Hgb 12.3 L (13.0-17.5) gm/dL Hct 38.4 L (39.0-53.0) % MCV 100.4 H (80.0-100.0) fL MCH 32.1 (25.0-35.0) pg MCHC 32.0 (31.0-37.0) g/dL RDW 13.1 (11.5-15.5) % Plt Count 229 (150-450) k/uL MPV 8.0 Neutrophils % 74 % Lymphocytes % 14 % Monocytes % 7 % Eosinophils % 3 % Basophils % 1 % Neutrophils # 5.4 (1.3-7.7) k/uL Lymphocytes # 1.0 (1.0-4.8) k/uL Monocytes # 0.5 (0-1.0) k/uL Eosinophils # 0.2 (0-0.7) k/uL Basophils # 0.0 (0-0.2) k/uL Hypochromasia Slight PT 10.4 (9.0-12.0) sec INR 1.0 (<1.2) APTT 22.5 (22.0-30.0) sec Sodium 140 (137-145) mmol/L Potassium 4.6 (3.5-5.1) mmol/L Chloride 101 (98-107) mmol/L Carbon Dioxide 36 H (22-30) mmol/L Anion Gap 3 mmol/L BUN 24 H (9-20) mg/dL Creatinine 0.77 (0.66-1.25) mg/dL Est GFR (CKD-EPI)AfAm >90 (>60 ml/min/1.73 sqM) Est GFR (CKD-EPI)NonAf 90 (>60 ml/min/1.73 sqM) Glucose 100 H (74-99) mg/dL Calcium 9.0 (8.4-10.2) mg/dL Magnesium 2.1 (1.6-2.3) mg/dL Total Bilirubin 0.3 (0.2-1.3) mg/dL AST 25 (17-59) U/L ALT 22 (4-49) U/L Alkaline Phosphatase 81 (38-126) U/L Creatine Kinase 81 (55-170) U/L Troponin I (0.000-0.034) ng/mL Total Protein 6.4 (6.3-8.2) g/dL Albumin 3.7 (3.5-5.0) g/dL TSH 1.860 (0.465-4.680) mIU/L 11/25/20 Range/Units 12:33 WBC (3.8-10.6) k/uL RBC (4.30-5.90) m/uL Hgb (13.0-17.5) gm/dL Hct (39.0-53.0) % MCV (80.0-100.0) fL MCH (25.0-35.0) pg MCHC (31.0-37.0) g/dL RDW (11.5-15.5) % Plt Count (150-450) k/uL MPV Neutrophils % % Lymphocytes % % Monocytes % % Eosinophils % % Basophils % % Neutrophils # (1.3-7.7) k/uL Lymphocytes # (1.0-4.8) k/uL Monocytes # (0-1.0) k/uL Eosinophils # (0-0.7) k/uL Basophils # (0-0.2) k/uL Hypochromasia PT (9.0-12.0) sec INR (<1.2) APTT (22.0-30.0) sec Sodium (137-145) mmol/L Potassium (3.5-5.1) mmol/L Chloride (98-107) mmol/L Carbon Dioxide (22-30) mmol/L Anion Gap mmol/L BUN (9-20) mg/dL Creatinine (0.66-1.25) mg/dL Est GFR (CKD-EPI)AfAm (>60 ml/min/1.73 sqM) Est GFR (CKD-EPI)NonAf (>60 ml/min/1.73 sqM) Glucose (74-99) mg/dL Calcium (8.4-10.2) mg/dL Magnesium (1.6-2.3) mg/dL Total Bilirubin (0.2-1.3) mg/dL AST (17-59) U/L ALT (4-49) U/L Alkaline Phosphatase (38-126) U/L Creatine Kinase (55-170) U/L Troponin I <0.012 (0.000-0.034) ng/mL Total Protein (6.3-8.2) g/dL Albumin (3.5-5.0) g/dL TSH (0.465-4.680) mIU/L - Radiology Data Radiology results: report reviewed (Imaging reviewed evidence of congestive failure. Please see the complete report), image reviewed Critical Care Time Critical Care Time: Yes Total Critical Care Time: 39 Critical Care Time: Ur care time includes initial presentation with history physical labs x-rays. Reevaluation is of the patient response to therapy discuss with the patient family regarding the findings review of old charting. Admission orders documentation the above. Disposition Clinical Impression: Rapid atrial fibrillation, Congestive heart failure Disposition: ADMITTED IP TO THIS HOSP Condition: Fair Referrals: [facility],Clinic [Primary Care Provider] - 1-2 days
[2020-11-25 12:49] LABS: Basophils % (A) 1 %; Eosinophils # (A) 0.2 k/uL (0-0.7); Eosinophils % (A) 3 %; HCT 38.4 % (39.0-53.0); HGB 12.3 gm/dL (13.0-17.5); Hypochromasia Slight; Lymphocytes % (A) 14 %; MCH 32.1 pg (25.0-35.0); MCV 100.4 fL (80.0-100.0); Monocytes # (A) 0.5 k/uL (0-1.0); Monocytes % (A) 7 %; Neutrophils # (A) 5.4 k/uL (1.3-7.7); Neutrophils % (A) 74 %; Platelet Count 229 k/uL (150-450); RBC 3.83 m/uL (4.30-5.90); RDW 13.1 % (11.5-15.5); WBC 7.3 k/uL (3.8-10.6)
[2020-11-25] MEDS: HEPARIN SOD,PORK IN 0.45% NACL 25,000 UNIT in 0.45% NACL 1 250ML.BAG IV SCH (12:52)
--- NOTE | 2020-11-25 12:52 | XR ---
EXAMINATION TYPE: XR chest 2V DATE OF EXAM: 11/25/2020 COMPARISON: 08/03/2017 HISTORY: Dysrhythmia TECHNIQUE: Frontal and lateral views of the chest are obtained. FINDINGS: There is pulmonary edema and mild bibasilar airspace disease which is new since the prior exam. Cardiac silhouette is unchanged in size. IMPRESSION: There is pulmonary edema and mild bibasilar airspace disease which is new since the prior exam.
[2020-11-25] MEDS: DILTIAZEM 125 MG in SODIUM CHLORIDE 0.9% 100 ML IV SCH (12:54)
[2020-11-25 13:00] LABS: ALT 22 U/L (4-49); AST 25 U/L (17-59); African American GFR (CKD) >90 (>60 ml/min/1.73 sqM); Albumin 3.7 g/dL (3.5-5.0); Alkaline Phosphatase 81 U/L (38-126); Anion Gap 3 mmol/L; Blood Urea Nitrogen 24 mg/dL (9-20); Carbon Dioxide 36 mmol/L (22-30); Chloride 101 mmol/L (98-107); Creatine Kinase 81 U/L (55-170); Glucose 100 mg/dL (74-99); Magnesium 2.1 mg/dL (1.6-2.3); Non-African American GFR(CKD) 90 (>60 ml/min/1.73 sqM); Potassium 4.6 mmol/L (3.5-5.1); Sodium 140 mmol/L (137-145); Total Bilirubin 0.3 mg/dL (0.2-1.3); Total Protein 6.4 g/dL (6.3-8.2)
[2020-11-25 13:04] LABS: Partial Thromboplastin Time 22.5 sec (22.0-30.0); Prothrombin Time 10.4 sec (9.0-12.0)
[2020-11-25] MEDS: SODIUM CHLORIDE 0.9% 500 ML 500 ML IV STA (13:26)
[2020-11-25] MEDS ORDERED: DILTIAZEM DRIP BOLUS FROM BAG 1 MG SOLN IV STA (13:47)
[2020-11-25] MEDS ORDERED: LIDOCAINE 4% CREAM 5 GM TUBE TOPICAL PRN (13:59)
[2020-11-25] MEDS ORDERED: ALBUTEROL NEBULIZED 2.5 MG/3 ML INHALATION PRN (13:59)
[2020-11-25] MEDS: SODIUM CHLORIDE 0.9% 1,000 ML IV SCH (15:01)
[2020-11-25] MEDS: FUROSEMIDE 10 MG/ML 4 ML VIAL IV SCH ×2 (16:16→21:31)
[2020-11-25] MEDS: METOPROLOL TARTRATE 25 MG TAB PO SCH ×2 (17:29→23:35)
[2020-11-25] MEDS: ARTIFICIAL TEARS-HYPROMELLOSE DROPS 15 ML BTL BOTH EYES SCH ×2 (19:01→21:31)
[2020-11-25] MEDS: ALPRAZolam 0.25 MG TAB PO PRN (19:51)
[2020-11-25] MEDS: GABAPENTIN 400 MG CAP PO SCH (19:52)
[2020-11-25] MEDS ORDERED: METOPROLOL TARTRATE 25 MG TAB PO SCH (21:00)
--- NOTE | 2020-11-25 21:06 | P.HPIM ---
History of Present Illness this is a pleasant 74yo M wiht past medical history of hyperlipidemia , hypertension , osteoarthritis, emphysemia and copd on chroinc oxygen use at home (4 L/M) left eye detached retina, 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 me lanoma on the back, hearing difficulty , legally blind . he follows up with the [facility] , his cardiologsit is and battery checker is , he went to see today for palpiation and not feeling well and found to have a fib and rve , he was referred to the emergency room, no chest pain or dyspnea. no abd pain or diarrhea ,no urinary complaint or fever he smokes 1-2 ceg per day, he drinks once or twice weekly ,no illicit drugs on admission his HR 140-180s, rest of vitals are stable labs reviewed, unremarkable CBC, BMP LFT. TSH is normal at 1.8. troponin is negative at <0.012, proBNP 3310 EKG: atrial fibrillation at 179 CXR: no acute process Past Medical History Past Medical History: Cancer, Eye Disorder, Hearing Disorder / Deafness, Hyperlipidemia, Hypertension, Osteoarthritis (OA) Additional Past Medical History / Comment(s): Emphysema (takes inhalers and uses oxygen at home). Hx Kidney Cancer in 2006. Left eye detached retina. Wet Macular Degeneration right eye. Hx Melanoma on back. Bilateral hearing aid use, legally blind. History of Any Multi-Drug Resistant Organisms: None Reported Past Surgical History: Back Surgery Additional Past Surgical History / Comment(s): Right kidney removed. Left eye surgery X3 for detacted retina. Bilateral cataract surgery. Mohs surgery thoracic spine for melanoma. Past Anesthesia/Blood Transfusion Reactions: Previous Problems w/ Anesthesia Additional Past Anesthesia/Blood Transfusion Reaction / Comment(s): States low heart rate, light-headed and low BP X1 with anesthesia. "Got broke vocal cord and could not talk for 2 months after anesthesia one time." Past Psychological History: No Psychological Hx Reported Past Alcohol Use History: Daily Past Drug Use History: Marijuana - Past Family History Mother Family Medical History: Cancer Additional Family Medical History / Comment(s): Brain CA. Father Family Medical History: CVA/TIA Medications and Allergies Home Medications Medication Instructions Recorded Confirmed Type Vit C/E/Zn/Coppr/Lutein/Zeaxan 1 cap PO BID 08/03/17 11/25/20 History [Preservision Areds 2 Softgel] Albuterol Sulfate [Proair Hfa] 2 puff INHALATION RT-Q6H PRN 02/23/19 11/25/20 History Gabapentin [Neurontin] 400 mg PO BID 02/23/19 11/25/20 History Metoprolol Tartrate [Lopressor] 25 mg PO BID 02/23/19 11/25/20 History lisinopriL [Zestril] 2.5 mg PO HS 02/23/19 11/25/20 History Albuterol Nebulized [Ventolin 2.5 mg INHALATION RT-QID PRN 11/25/20 11/25/20 History Nebulized] Aspirin EC [Ecotrin Low Dose] 81 mg PO DAILY 11/25/20 11/25/20 History Dextran 70/Hypromellose 1 drop BOTH EYES QID 11/25/20 11/25/20 History [Lubricating Tears 0.1-0.3% Drp] Escitalopram [Lexapro] 10 mg PO DAILY 11/25/20 11/25/20 History Lidocaine 4% Cream [Lmx 4] 1 applic TOPICAL BID PRN 11/25/20 11/25/20 History Allergies Allergy/AdvReac Type Severity Reaction Status Date / Time atorvastatin [From Lipitor] AdvReac Muscle Pain Verified 11/25/20 13:41 Physical Exam Vitals: Vital Signs Temp Pulse Resp BP Pulse Ox 11/25/20 14:20 109 H 20 95/79 96 11/25/20 14:00 104 H 20 116/69 96 11/25/20 13:50 135 H 20 140/85 94 L 11/25/20 13:45 137 H 20 113/99 95 11/25/20 13:25 144 H 20 97/82 94 L 11/25/20 13:20 149 H 20 95/83 93 L 11/25/20 13:15 152 H 20 106/77 94 L 11/25/20 13:05 165 H 20 104/82 94 L 11/25/20 13:00 146 H 20 112/79 92 L 11/25/20 12:55 161 H 20 102/85 96 11/25/20 12:35 186 H 20 102/89 96 11/25/20 11:58 98.2 F 76 20 134/114 95 Intake and Output 11/24/20 11/25/20 11/25/20 22:59 06:59 14:59 Other: Weight 122.47 kg GENERAL: The patient is alert and oriented x3, not in any acute distress. Well developed, well nourished. HEENT: Pupils are round and equally reacting to light. EOMI. No scleral icterus. No conjunctival pallor. Normocephalic, atraumatic. No pharyngeal erythema. No thyromegaly. CARDIOVASCULAR: S1 and S2 present. No murmurs, rubs, or gallops. PULMONARY: Chest is clear to auscultation, no wheezing or crackles. ABDOMEN: Soft, nontender, nondistended, normoactive bowel sounds. No palpable organomegaly. MUSCULOSKELETAL: No joint swelling or deformity. EXTREMITIES: No cyanosis, clubbing, or pedal edema. NEUROLOGICAL: Gross neurological examination did not reveal any focal deficits. SKIN: No rashes. no petechiae. Results CBC & Chem 7: 11/25/20 12:33 11/25/20 12:33 Labs: Abnormal Lab Results - Last 24 Hours (Table) 11/25/20 11/25/20 Range/Units 12:33 12:33 RBC 3.83 L (4.30-5.90) m/uL Hgb 12.3 L (13.0-17.5) gm/dL Hct 38.4 L (39.0-53.0) % MCV 100.4 H (80.0-100.0) fL Carbon Dioxide 36 H (22-30) mmol/L BUN 24 H (9-20) mg/dL Glucose 100 H (74-99) mg/dL Assessment and Plan Assessment: new onset Atrial fibrillation with RVR hyperlipidemia hypertension nicotine dependance osteoarthritis emphysemia and copd on chroinc oxygen use at home (4 L/M) left eye detached retina, wet macular degeneration of the right eye, legally b tom melanoma on the back hearing difficulty obesity Plan: this is a pleasant 74 yo M who presents with afib and rvr, c/w cardizem and heparin drip started in ED cardiology consult monitor heart rate Labs and medication were reviewed.. Continue same treatment. Continue with symptomatic treatment. Resume home medication. Monitor lytes and vitals. DVT and GI prophylaxis. Further recommendationsas per clinical course of the patient DVT prophylaxis: heparin GI Prophylaxis: Pepcid
[2020-11-26] MEDS: ALPRAZolam 0.25 MG TAB PO PRN (01:12)
[2020-11-26 03:16] LABS: Basophils % (A) 1 %; Eosinophils # (A) 0.2 k/uL (0-0.7); Eosinophils % (A) 3 %; HCT 38.6 % (39.0-53.0); HGB 11.5 gm/dL (13.0-17.5); Hypochromasia Moderate; Lymphocytes # (A) 1.1 k/uL (1.0-4.8); Lymphocytes % (A) 15 %; MCH 31.4 pg (25.0-35.0); MCHC 29.9 g/dL (31.0-37.0); Macrocytosis Moderate; Mean Platelet Volume 7.5; Monocytes # (A) 0.5 k/uL (0-1.0); Monocytes % (A) 7 %; Neutrophils # (A) 5.4 k/uL (1.3-7.7); Neutrophils % (A) 72 %; Platelet Count 232 k/uL (150-450); RBC 3.67 m/uL (4.30-5.90); RDW 13.8 % (11.5-15.5); WBC 7.6 k/uL (3.8-10.6)
[2020-11-26 03:39] LABS: Calcium 8.5 mg/dL (8.4-10.2); Potassium 4.1 mmol/L (3.5-5.1)
[2020-11-26] MEDS: FUROSEMIDE 10 MG/ML 4 ML VIAL IV SCH ×2 (05:48→21:21)
[2020-11-26] MEDS: HEPARIN SOD,PORK IN 0.45% NACL 25,000 UNIT in 0.45% NACL 1 250ML.BAG IV SCH (05:52)
[2020-11-26] MEDS ORDERED: APIXABAN 5 MG TAB PO SCH (09:00)
[2020-11-26] MEDS ORDERED: ASPIRIN 81 MG PO SCH (09:00)
[2020-11-26] MEDS: ARTIFICIAL TEARS-HYPROMELLOSE DROPS 15 ML BTL BOTH EYES SCH ×4 (09:18→21:22)
[2020-11-26] MEDS: GABAPENTIN 400 MG CAP PO SCH ×2 (09:18→21:21)
[2020-11-26] MEDS: VIT A,C & E-LUTEIN-MINERALS 1 EACH TAB PO SCH (09:18)
[2020-11-26] MEDS: ESCITALOPRAM 10 MG TAB PO SCH (09:18)
[2020-11-26] MEDS: METOPROLOL TARTRATE 50 MG TAB PO SCH ×2 (09:18→21:22)
[2020-11-26] MEDS: AMIODARONE 200 MG TAB PO SCH ×2 (09:18→21:21)
[2020-11-26] MEDS: APIXABAN 5 MG TAB PO SCH ×2 (10:15→21:21)
--- NOTE | 2020-11-26 11:03 | ECHOF ---
Referral Reason:LV function MEASUREMENTS -------- HEIGHT: 177.8 cm WEIGHT: 137.0 kg BP: 114/63 RVIDd: 5.1 cm (< 3.3) IVSd: 1.2 cm (0.6 - 1.1) LVIDd: 4.4 cm (3.9 - 5.3) LVPWd: 1.5 cm (0.6 - 1.1) IVSs: 1.3 cm LVIDs: 3.4 cm LVPWs: 2.3 cm LAESV Index (A-L): 29.25 ml/m Ao Diam: 3.2 cm (2.0 - 3.7) AV Cusp: 2.2 cm (1.5 - 2.6) LA Diam: 5.0 cm (2.7 - 3.8) MV EXCURSION: 16.775 mm (> 18.000) MV EF SLOPE: 63 mm/s (70 - 150) EPSS: 0.8 cm RAP: 20.00 mmHg RVSP: 65.95 mmHg FINDINGS -------- This was a technically difficult study with suboptimal views. The left ventricular size is normal. There is mild concentric left ventricular hypertrophy. Overa ll left ventricular systolic function is mildly impaired with, an EF between 45 - 50 %. The right ventricle is moderate to severely enlarged. LA is midly dilated 29-33ml/m2. The right atrium was not well visualized. 5.0mg of Lumason was utilized for enhancement of images Interatrial and interventricular septum intact. The aortic valve was not well visualized. There is no evidence of aortic regurgitation. There is no evidence of aortic stenosis. The mitral valve was not well visualized. Mild mitral regurgitation is present. Moderate to severe tricuspid regurgitation present. There is severe pulmonary hypertension. The r ight ventricular systolic pressure, as measured by Doppler, is 65.95mmHg. The pulmonic valve was not well visualized. There is no pulmonic regurgitation present. The aortic root size is normal. The inferior vena cava is dilated with poor inspiratory collapse which is consistent with estimated r ight atrial pressure of 20 mmHg. There is no pericardial effusion. CONCLUSIONS -------- 1. The left ventricular size is normal. 2. There is mild concentric left ventricular hypertrophy. 3. Overall left ventricular systolic function is mildly impaired with, an EF between 45 - 50 %. 4. The right ventricle is moderate to severely enlarged. 5. LA is midly dilated 29-33ml/m2. 6. Mild mitral regurgitation is present. 7. Moderate to severe tricuspid regurgitation present. 8. There is severe pulmonary hypertension. 9. The right ventricular systolic pressure, as measured by Doppler, is 65.95mmHg. 10. The inferior vena cava is dilated with poor inspiratory collapse which is consistent with estimat ed right atrial pressure of 20 mmHg. ANIMAL ATTENDANTS AND TRAINERS: Luz Briceno RDCS
[2020-11-26 11:07] VITALS: BMI 43.3
--- NOTE | 2020-11-26 11:46 | P.CRDCN ---
History of Present Illness History of present illness: HISTORY OF PRESENTING ILLNESS This is a pleasant 74-year-old male past medical history significant for hypertension, non obstructive coronary artery disease, dyslipidemia, and COPD, obstructive sleep apnea. He follows in the office with Dr. Rodgers. We have been asked to see in consultation for atrial fibrillation with RVR. Patient states that he's been feeling tired and fatigued and no energy. He also had increasing shortness of breath with exertion over the past 2-3 weeks is progressively getting worse. He presents to appointment with Dr. Rodgers on 11/25/20, he was tachycardic and EKG was performed and was found to be in atrial fibrillation with rapid ventricular response and was sent to the emergency department. He has chronic shortness of breath, but it has worsening. He states he does have obstructive sleep apnea with use of CPAP at home. He states he is a former heavy alcohol user. Currently drinks about 8 beers a week. Current every day smoker. Smokes 1-2 cigarettes per day. Denies history of diabetes, stroke, [place], GI bleed or gastric ulcers. He endorses symptoms of occasionally waking up short of breath. He is able to sleep flat with one pillow on his side. Denies chest pain, palpitations, lightheadedness, dizziness, syncope. DIAGNOSTICS EKG reveals atrial fibrillation with rapid ventricular response heart rate 179. Prior EKG in the office in 2018 patient was in sinus rhythm Most recent stress test with Lexiscan 09/2018 which was negative for reversible ischemia Cardiac catheterization history includes catheterization 02/2019 which revealed minimal CAD, 50% lesion in the distal left circumflex Most recent echocardiogram 06/2019 revealed an EF of 55%, mild concentric hypertrophy, mild mitral regurgitation mild tricuspid regurgitation Telemetry tracings indicate patient in atrial fibrillation with rapid ventricular response heart rate 100 to 160s. Chest xray evidence of pulmonary edema, cardiac silhouette is enlarged, mild bibasilar airspace disease. Laboratory reviewed, troponin negative 1, proBNP 3310, TSH within normal limits, WBC 7.6, hemoglobin 11.5, platelets 232, sodium 141, potassium 4.1, serum creatinine 0.98, magnesium 2.1, liver enzymes within normal limits. Current home medications include lisinopril 2.5 mg nightly, metoprolol tartrate 25 mg twice daily, gabapentin, Lexapro, aspirin 81 mg daily, albuterol REVIEW OF SYSTEMS At the time of my exam: CONSTITUTIONAL: Denies fever or chills. Positive fatigue, positive tiredness CARDIOVASCULAR: Positive shortness of breath, positive orthopnea Denies chest pain or palpitations. RESPIRATORY: Denies cough. GASTROINTESTINAL: Denies abdominal pain, diarrhea, constipation, nausea or vomiting. MUSCULOSKELETAL: Denies myalgias. NEUROLOGIC: Denies numbness, tingling, headacbe or weakness. ENDOCRINE: + fatigue, Denies weight change, polydipsia or polyurina. GENITOURINARY: Denies burning, hematuria or urgency with micturation. HEMATOLOGIC: Denies history of anemia or bleeding. PHYSICAL EXAMINATION CONSTITUTIONAL: Appears short of breath, labored breathing HEENT: Head is normocephalic. Pupils are equal, round. Sclerae anicteric. Mucous membranes of the mouth are moist. No JVD. No carotid bruit. CHEST EXAMINATION: Lungs are clear to auscultation. No chest wall tenderness is noted on palpation or with deep breathing. HEART EXAMINATION: Irregular tachycardic rate and rhythm. S1, S2 heard. Systolic murmur noted left sternal border ABDOMEN: Soft, nontender. Positive bowel sounds. EXTREMITIES: 2+ peripheral pulses, 1+ bilateral lower extremity extremity edema and no calf tenderness. SKIN:intact NEUROLOGIC EXAMINATION: Patient is awake, alert and oriented x3. ASSESSMENT Paroxysmal atrial fibrillation with rapid ventricular response - [id number] score 3 Acute systolic heart failure- mildly impaired EF 45-50% Severe pulmonary hypertension Hypertension Nonobstructive coronary artery disease Dyslipidemia COPD Objective sleep apnea Chronic nicotine dependence PLAN -Obtain 2-D echocardiogram to assess LV function revealed left ventricular systolic function is mildly impaired with an EF of 45-50%, right ventricle is moderately to severely enlarged, mild mitral regurgitation, moderate to severe tricuspid regurgitation, severe pulmonary hypertension with an RVSP of 65.9 mmHg -Continue IV cardizem 5mg/hr -Start amiodarone 400mg BID -Increase metoprolol tartrate to 50mg BID -Reduce IV Lasix to 40mg BID -Continue lisinopril 2.5 mg nightly -Start Eliquis 5mg BID, will discontinue aspirin and heparin drip -Monitor renal function and electrolytes -Case management consulted for Eliquis coverage, due to patient's [facility] insurance Eliquis is covered at this time prescription sent to pharmacy for free month, case management is humairag a printed prescription to the [facility] for coverage. -Further recommendations based on clinical course Nurse Practitioner note has been reviewed, I agree with a documented findings and plan of care. Patient was seen and examined. Past Medical History Past Medical History: Cancer, Eye Disorder, Hearing Disorder / Deafness, Hyperlipidemia, Hypertension, Osteoarthritis (OA) Additional Past Medical History / Comment(s): Emphysema (takes inhalers and uses oxygen at home). Hx Kidney Cancer in 2006. Left eye detached retina. Wet Macular Degeneration right eye. Hx Melanoma on back. Bilateral hearing aid use, legally blind. History of Any Multi-Drug Resistant Organisms: None Reported Past Surgical History: Back Surgery Additional Past Surgical History / Comment(s): Right kidney removed. Left eye surgery X3 for detacted retina. Bilateral cataract surgery. Mohs surgery thoracic spine for melanoma. Past Anesthesia/Blood Transfusion Reactions: Previous Problems w/ Anesthesia Additional Past Anesthesia/Blood Transfusion Reaction / Comment(s): States low heart rate, light-headed and low BP X1 with anesthesia. "Got broke vocal cord and could not talk for 2 months after anesthesia one time." Past Psychological History: No Psychological Hx Reported Past Alcohol Use History: Daily Past Drug Use History: Marijuana - Past Family History Mother Family Medical History: Cancer Additional Family Medical History / Comment(s): Brain CA. Father Family Medical History: CVA/TIA Medications and Allergies Home Medications Medication Instructions Recorded Confirmed Type Vit C/E/Zn/Coppr/Lutein/Zeaxan 1 cap PO BID 08/03/17 11/25/20 History [Preservision Areds 2 Softgel] Albuterol Sulfate [Proair Hfa] 2 puff INHALATION RT-Q6H PRN 02/23/19 11/25/20 History Gabapentin [Neurontin] 400 mg PO BID 02/23/19 11/25/20 History Metoprolol Tartrate [Lopressor] 25 mg PO BID 02/23/19 11/25/20 History lisinopriL [Zestril] 2.5 mg PO HS 02/23/19 11/25/20 History Albuterol Nebulized [Ventolin 2.5 mg INHALATION RT-QID PRN 11/25/20 11/25/20 History Nebulized] Aspirin EC [Ecotrin Low Dose] 81 mg PO DAILY 11/25/20 11/25/20 History Dextran 70/Hypromellose 1 drop BOTH EYES QID 11/25/20 11/25/20 History [Lubricating Tears 0.1-0.3% Drp] Escitalopram [Lexapro] 10 mg PO DAILY 11/25/20 11/25/20 History Lidocaine 4% Cream [Lmx 4] 1 applic TOPICAL BID PRN 11/25/20 11/25/20 History Apixaban [Eliquis] 5 mg PO BID 30 Days #60 tab 11/26/20 Rx Allergies Allergy/AdvReac Type Severity Reaction Status Date / Time atorvastatin [From Lipitor] AdvReac Muscle Pain Verified 11/25/20 13:41 Physical Exam Vitals: Vital Signs Temp Pulse Resp BP Pulse Ox 11/25/20 14:20 109 H 20 95/79 96 11/25/20 14:00 104 H 20 116/69 96 11/25/20 13:50 135 H 20 140/85 94 L 11/25/20 13:45 137 H 20 113/99 95 11/25/20 13:25 144 H 20 97/82 94 L 11/25/20 13:20 149 H 20 95/83 93 L 11/25/20 13:15 152 H 20 106/77 94 L 11/25/20 13:05 165 H 20 104/82 94 L 11/25/20 13:00 146 H 20 112/79 92 L 11/25/20 12:55 161 H 20 102/85 96 11/25/20 12:35 186 H 20 102/89 96 11/25/20 11:58 98.2 F 76 20 134/114 95 Intake and Output 11/24/20 11/25/20 11/25/20 22:59 06:59 14:59 Other: Weight 122.47 kg Results 11/26/20 02:44 11/26/20 02:44 Cardiac Enzymes 11/25/20 11/25/20 Range/Units 12:33 12:33 AST 25 (17-59) U/L Troponin I <0.012 (0.000-0.034) ng/mL Coagulation 11/25/20 Range/Units 12:33 PT 10.4 (9.0-12.0) sec APTT 22.5 (22.0-30.0) sec CBC 11/25/20 Range/Units 12:33 WBC 7.3 (3.8-10.6) k/uL RBC 3.83 L (4.30-5.90) m/uL Hgb 12.3 L (13.0-17.5) gm/dL Hct 38.4 L (39.0-53.0) % Plt Count 229 (150-450) k/uL Comprehensive Metabolic Panel 11/25/20 Range/Units 12:33 Sodium 140 (137-145) mmol/L Potassium 4.6 (3.5-5.1) mmol/L Chloride 101 (98-107) mmol/L Carbon Dioxide 36 H (22-30) mmol/L BUN 24 H (9-20) mg/dL Creatinine 0.77 (0.66-1.25) mg/dL Glucose 100 H (74-99) mg/dL Calcium 9.0 (8.4-10.2) mg/dL AST 25 (17-59) U/L ALT 22 (4-49) U/L Alkaline Phosphatase 81 (38-126) U/L Total Protein 6.4 (6.3-8.2) g/dL Albumin 3.7 (3.5-5.0) g/dL Current Medications Generic Name Dose Route Start Last Admin Trade Name Freq PRN Reason Stop Dose Admin Albuterol Sulfate 2.5 mg 11/25/20 13:59 Albuterol Nebulized 2.5 Mg/3 Ml INHALATION RT-QID PRN Shortness Of Breath Artificial Tears 1 drops 11/25/20 18:00 Artificial Tears-Hypromellose Drops 15 Ml Btl BOTH EYES QID [facility] Aspirin 81 mg 11/26/20 09:00 Aspirin 81 Mg PO DAILY [facility] Escitalopram Oxalate 10 mg 11/26/20 09:00 Escitalopram 10 Mg Tab PO DAILY [facility] Furosemide 40 mg 11/25/20 14:00 Furosemide 10 Mg/Ml 4 Ml Vial IV Q8H [facility] Gabapentin 400 mg 11/25/20 21:00 Gabapentin 400 Mg Cap PO BID [facility] Diltiazem HCl 125 mg/ Sodium 125 mls @ 5 mls/hr 11/25/20 12:30 11/25/20 12:54 Chloride IV 5 mg/hr .Q24H [facility] 5 mls/hr Administration 5 MG/HR Heparin Sodium/Sodium Chloride 250 mls @ 10 mls/hr 11/25/20 12:30 11/25/20 12:52 25,000 unit/ Sodium Chloride IV 8.165 units/kg/hr .Q24H [facility] 10 mls/hr Administration Protocol 8.165 UNITS/KG/HR Sodium Chloride 1,000 mls @ 20 mls/hr 11/25/20 14:00 Saline 0.9% IV .Q24H [facility] Lidocaine HCl 1 applic 11/25/20 13:59 Lidocaine 4% Cream 5 Gm Tube TOPICAL BID PRN knee pain Protocol Lisinopril 2.5 mg 11/25/20 21:00 Lisinopril 2.5 Mg Tab PO HS [facility] Metoprolol Tartrate 25 mg 11/25/20 21:00 Metoprolol Tartrate 25 Mg Tab PO BID [facility] Multivitamins/Minerals 1 each 11/26/20 09:00 Vit A,C & W-[id number]-[id number] 1 Each Tab PO DAILY [facility] Intake and Output 11/24/20 11/25/20 11/25/20 22:59 06:59 14:59 Other: Weight 122.47 kg Patient Weight 11/26/20 06:59 Weight 122.47 kg 11/25/20 12:33 11/25/20 12:33
--- NOTE | 2020-11-26 13:22 | P.PN ---
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 melanoma on the back, hearing difficulty , legally blind . he follows up with the [facility] , his cardiologsit is and lead instructor/flight attendant is , he went to see today for palpiation and not feeling well and found to have a fib and rve , he was referred to the emergency room, no chest pain or dyspnea. no abd pain or diarrhea ,no urinary complaint or fever he smokes 1-2 ceg per day, he drinks once or twice weekly ,no illicit drugs on admission his HR 140-180s, rest of vitals are stable labs reviewed, unremarkable CBC, BMP LFT. TSH is normal at 1.8. troponin is negative at <0.012, proBNP 3310 EKG: atrial fibrillation at 179 CXR: no acute process 11/26/2020 Patient denies chest pain or dyspnea today, however looks like he has some difficulty breathing when talking although he denies any symptoms. He is using his CPAP machine from home at night for his EIGHTH. No coughing. No chest pain. No other complaint. Heart rate still uncontrolled at 138, pressure is on the low side 90/54 after m etoprolol 50 mg added by tea room manager. Therefore amiodarone was added also by tea room manager 400 mg twice daily. His creatinine and labs are normal. cht x-ray some bilateral pulmonary congestion and small right pleural effusion Heparin drip switch to Eliquis, we need to find the co-pay. He kept on Cardizem drip. A diagram showed ejection fraction of 45-50% with mild LVH, deferred to severe tricuspid regurgitation, es severe pulmonary hypertension Review of systems CONSTITUTIONAL: No fever, no malaise, no fatigue. HEENT: No recent visual problems or hearing problems. Denied any sore throat. CARDIOVASCULAR: No orthopnea, PND, no palpitations, no syncope. PULMONARY: No shortness of breath, no cough, no hemoptysis. GASTROINTESTINAL: No diarrhea, no nausea, no vomiting, no abdominal pain. Normoactive bowel sounds. NEUROLOGICAL: No headaches, no weakness, no numbness. Active Medications Generic Name Dose Route Start Last Admin Trade Name Freq PRN Reason Stop Dose Admin Albuterol Sulfate 2.5 mg 11/25/20 13:59 11/26/20 11:21 Albuterol Nebulized 2.5 Mg/3 Ml INHALATION 2.5 mg RT-QID PRN Administration Shortness Of Breath Alprazolam 0.25 mg 11/25/20 19:14 11/26/20 01:12 Alprazolam 0.25 Mg Tab PO 0.25 mg TID PRN Administration Anxiety Amiodarone HCl 400 mg 11/26/20 09:00 11/26/20 09:18 Amiodarone 200 Mg Tab PO 400 mg BID [facility] Administration Apixaban 5 mg 11/26/20 10:15 Apixaban 5 Mg Tab PO BID [facility] Protocol Artificial Tears 1 drops 11/25/20 18:00 11/26/20 09:18 Artificial Tears-Hypromellose Drops 15 Ml Btl BOTH EYES 1 drops QID [facility] Administration Escitalopram Oxalate 10 mg 11/26/20 09:00 11/26/20 09:18 Escitalopram 10 Mg Tab PO 10 mg DAILY [facility] Administration Furosemide 40 mg 11/26/20 21:00 Furosemide 10 Mg/Ml 4 Ml Vial IV Q12HR [facility] Gabapentin 400 mg 11/25/20 21:00 11/26/20 09:18 Gabapentin 400 Mg Cap PO 400 mg BID [facility] Administration Diltiazem HCl 125 mg/ Sodium 125 mls @ 5 mls/hr 11/25/20 12:30 11/25/20 12:54 Chloride IV 5 mg/hr .Q24H [facility] 5 mls/hr Administration 5 MG/HR Sodium Chloride 1,000 mls @ 20 mls/hr 11/25/20 14:00 11/25/20 15:01 Saline 0.9% IV 20 mls/hr .Q24H [facility] Administration Lidocaine HCl 1 applic 11/25/20 13:59 Lidocaine 4% Cream 5 Gm Tube TOPICAL BID PRN knee pain Protocol Lisinopril 2.5 mg 11/25/20 21:00 11/25/20 19:52 Lisinopril 2.5 Mg Tab PO 2.5 mg HS [facility] Administration Methylprednisolone Sodium Succinate 40 mg 11/26/20 14:00 Methylprednisolone Sod Succi 40 Mg/Ml 1 Ml Vial IV Q8HR [facility] Metoprolol Tartrate 50 mg 11/26/20 09:00 11/26/20 09:18 Metoprolol Tartrate 50 Mg Tab PO 50 mg BID [facility] Administration Multivitamins/Minerals 1 each 11/26/20 09:00 11/26/20 09:18 Vit A,C & W-Hzlnie-Hrphpctz 1 Each Tab PO 1 each DAILY [facility] Administration Objective - Vital Signs Vital signs: Vital Signs Temp 98.4 F 11/25/20 20:00 Pulse 80 11/26/20 12:00 Resp 20 11/26/20 12:00 BP 90/54 11/26/20 12:00 Pulse Ox 97 11/26/20 12:00 Intake & Output 11/25/20 11/26/20 11/26/20 18:59 06:59 18:59 Intake Total 260 204.000 354 Output Total 800 Balance 260 -596.000 354 Weight 137 kg 137 kg 137 kg Intake: Intake, IV Titration 204.000 Amount Heparin Sod,Pork in 0.45% 204.000 NaCl 25,000 unit In 0.45 % NaCl 1 250ml.bag @ 8. 165 UNITS/KG/HR 10 mls/hr IV .Q24H [facility] Rx#: [id number] Oral 260 354 Output: Urine 800 Other: Voiding Method Urinal Urinal - Exam -GENERAL: The patient is alert and oriented x3, not in any acute distress. Morbidly obese HEENT: Pupils are round and equally reacting to light. EOMI. No scleral icterus. No conjunctival pallor. Normocephalic, atraumatic. No pharyngeal erythema. No thyromegaly. CARDIOVASCULAR: S1 and S2 present. No murmurs, rubs, or gallops. -PULMONARY: Chest is clear to auscultation, no decreased air entry with the scattered wheezing ABDOMEN: Soft, nontender, nondistended, normoactive bowel sounds. No palpable organomegaly. MUSCULOSKELETAL: No joint swelling or deformity. EXTREMITIES: No cyanosis, clubbing, or pedal edema. NEUROLOGICAL: Gross neurological examination did not reveal any focal deficits. SKIN: No rashes. no petechiae. - Labs CBC & Chem 7: 11/26/20 02:44 11/26/20 02:44 Labs: Abnormal Lab Results - Last 24 Hours (Table) 11/26/20 11/26/20 11/26/20 Range/Units 02:44 02:44 02:44 RBC 3.67 L (4.30-5.90) m/uL Hgb 11.5 L (13.0-17.5) gm/dL Hct 38.6 L (39.0-53.0) % MCV 105.0 H (80.0-100.0) fL MCHC 29.9 L (31.0-37.0) g/dL APTT 33.4 H (22.0-30.0) sec Chloride 97 L (98-107) mmol/L Carbon Dioxide 38 H (22-30) mmol/L BUN 22 H (9-20) mg/dL Glucose 112 H (74-99) mg/dL 11/26/20 Range/Units 09:46 RBC (4.30-5.90) m/uL Hgb (13.0-17.5) gm/dL Hct (39.0-53.0) % MCV (80.0-100.0) fL MCHC (31.0-37.0) g/dL APTT 36.8 H (22.0-30.0) sec Chloride (98-107) mmol/L Carbon Dioxide (22-30) mmol/L BUN (9-20) mg/dL Glucose (74-99) mg/dL Assessment and Plan Assessment: new onset Atrial fibrillation with RVR Acute systolic CHF, ejection fraction 45-50% moderate to severe tricuspid regurgitation Severe pulmonary hypertension Acute COPD exacerbation hyperlipidemia hypertension nicotine dependance osteoarthritis emphysemia and copd on chroinc oxygen use at home (4 L/M) left eye detached retina, wet macular degeneration of the right eye, legally blind melanoma on the back hearing difficulty obesity Plan: this is a pleasant 74 yo M who presents with afib and rvr, c/w cardizem , continue with metoprolol and amiodarone and monitor heart rate Continue with with IV Lasix, continue with Eliquis cardiology consult s labs and tarts Solu-Medrol medication were reviewed.. Continue same treatment. Continue with symptomatic treatment. Resume home medication. Monitor lytes and vitals. DVT and GI p rophylaxis. Further recommendationsas per clinical course of the patient DVT prophylaxis: Eliquis GI Prophylaxis: Pepcid
[2020-11-26] MEDS: SODIUM CHLORIDE 0.9% 500 ML 500 ML IV STA ×2 (13:24→13:30)
[2020-11-26] MEDS: methylPREDNISolone SOD SUCCI 40 MG/ML 1 ML VIAL IV SCH ×2 (14:00→23:04)
[2020-11-26 14:11] LABS: Glucose,Whole Blood 130 mg/dL (75-99)
[2020-11-26 14:59] LABS: ABG Oxygen Saturation 99.5 % (94-97); ABG PH 7.29 (7.35-7.45); ABG PO2 246 mmHg (83-108); ABG TCO2 42 mmol/L (19-24); Allen Test Performed? Yes
[2020-11-26 15:04] LABS: ABG HCO3 40 mmol/L (21-25); ABG PCO2 83 mmHg (35-45)
[2020-11-26] MEDS ORDERED: RIVAROXABAN 20 MG TAB PO SCH (17:30)
[2020-11-26] MEDS: DILTIAZEM 125 MG in SODIUM CHLORIDE 0.9% 100 ML IV SCH (20:45)
[2020-11-26] MEDS: SODIUM CHLORIDE 0.9% 1,000 ML IV SCH (20:46)
[2020-11-26 21:05] LABS: Glucose,Whole Blood 118 mg/dL (75-99)
[2020-11-27 06:22] LABS: Glucose,Whole Blood 164 mg/dL (75-99)
[2020-11-27] MEDS: INSULIN ASPART (NovoLOG) 100 UNIT/ML VIAL SQ SCH ×4 (06:25→20:25)
[2020-11-27] MEDS: AMIODARONE 200 MG TAB PO SCH ×2 (08:00→20:25)
[2020-11-27] MEDS: FUROSEMIDE 10 MG/ML 4 ML VIAL IV SCH ×2 (08:10→20:25)
[2020-11-27] MEDS: methylPREDNISolone SOD SUCCI 40 MG/ML 1 ML VIAL IV SCH ×3 (08:10→22:54)
[2020-11-27] MEDS: VIT A,C & E-LUTEIN-MINERALS 1 EACH TAB PO SCH (08:10)
[2020-11-27] MEDS: METOPROLOL TARTRATE 50 MG TAB PO SCH (08:10)
[2020-11-27] MEDS: ESCITALOPRAM 10 MG TAB PO SCH (08:11)
[2020-11-27] MEDS: ARTIFICIAL TEARS-HYPROMELLOSE DROPS 15 ML BTL BOTH EYES SCH ×4 (08:11→20:24)
[2020-11-27] MEDS: APIXABAN 5 MG TAB PO SCH ×2 (08:11→20:25)
[2020-11-27] MEDS: GABAPENTIN 400 MG CAP PO SCH ×2 (08:11→20:25)
[2020-11-27 09:44] LABS: Basophils % (A) 0 %; Eosinophils % (A) 0 %; HCT 40.3 % (39.0-53.0); HGB 12.3 gm/dL (13.0-17.5); Hypochromasia Moderate; Lymphocytes # (A) 0.6 k/uL (1.0-4.8); Lymphocytes % (A) 6 %; MCH 31.7 pg (25.0-35.0); MCHC 30.5 g/dL (31.0-37.0); Macrocytosis Slight; Monocytes # (A) 0.2 k/uL (0-1.0); Monocytes % (A) 2 %; Neutrophils # (A) 8.7 k/uL (1.3-7.7); Neutrophils % (A) 92 %; Platelet Count 248 k/uL (150-450); RBC 3.87 m/uL (4.30-5.90); RDW 12.9 % (11.5-15.5); WBC 9.5 k/uL (3.8-10.6)
[2020-11-27 09:58] LABS: Calcium 8.7 mg/dL (8.4-10.2); Magnesium 1.9 mg/dL (1.6-2.3); Potassium 4.6 mmol/L (3.5-5.1)
[2020-11-27] MEDS ORDERED: METOPROLOL TARTRATE 25 MG TAB PO STA (10:31)
--- NOTE | 2020-11-27 11:31 | P.PN ---
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 melanoma on the back, hearing difficulty , legally blind . he follows up with the [facility] , his cardiologsit is and aids social worker is , he went to see today for palpiation and not feeling well and found to have a fib and rve , he was referred to the emergency room, no chest pain or dyspnea. no abd pain or diarrhea ,no urinary complaint or fever he smokes 1-2 ceg per day, he drinks once or twice weekly ,no illicit drugs on admission his HR 140-180s, rest of vitals are stable labs reviewed, unremarkable CBC, BMP LFT. TSH is normal at 1.8. troponin is negative at <0.012, proBNP 3310 EKG: atrial fibrillation at 179 CXR: no acute process 11/26/2020 Patient denies chest pain or dyspnea today, however looks like he has some difficulty breathing when talking although he denies any symptoms. He is using his CPAP machine from home at night for his EIGHTH. No coughing. No chest pain. No other complaint. Heart rate still uncontrolled at 138, pressure is on the low side 90/54 after m etoprolol 50 mg added by blockmason. Therefore amiodarone was added also by blockmason 400 mg twice daily. His creatinine and labs are normal. cht x-ray some bilateral pulmonary congestion and small right pleural effusion Heparin drip switch to Eliquis, we need to find the co-pay. He kept on Cardizem drip. A diagram showed ejection fraction of 45-50% with mild LVH, deferred to severe tricuspid regurgitation, es severe pulmonary hypertension 11/27/2020 Patient denies any symptoms currently, sitting at bedside. No chest pain or dyspnea. He uses CPAP machine last night where he had ABG shows CO2 retention. Today he is fully awake and oriented in his breathing quietly. His heart rate this morning was 147, he is already on amiodarone and metoprolol 50 mg which is increased to 75 mg, draped currently improved down to 117. Yesterday his blood pressure dropped to about 86/60s on Cardizem drip, so give him a bolus of 500 mL of normal saline, his Cardizem drip is stopped currently. Today systolic blood pressure is 118. And as stated he is asymptomatic. But he has bilateral leg swelling and decreased air entry on both legs on examination. Patient confirms history of COPD. He denies significant coughing or phlegm. No abdominal or GI complaints. Labs look stable. Cardiogram showed ejection fraction of 45-50% with mild LVH, there to severe tricuspid regurgitation severe pulmonary hypertension Remains on Eliquis 5 mg, Lasix 40 mg IV twice daily, salmeterol 40 mg, metoprolol 75 mg and amiodarone 400 mg Objective - Vital Signs Vital signs: Vital Signs Temp 98 F 11/27/20 08:00 Pulse 147 H 11/27/20 08:00 Resp 21 11/27/20 08:00 BP 102/61 11/27/20 03:57 Pulse Ox 91 L 11/27/20 08:00 Intake & Output 11/26/20 11/27/20 11/27/20 18:59 06:59 18:59 Intake Total 354 240 240 Output Total 475 Balance 354 -235 240 Weight 137 kg 136.5 kg Intake: Oral 354 240 240 Output: Urine 475 Other: Voiding Method Urinal Urinal Urinal # Voids 1 - Exam -GENERAL: The patient is alert and oriented x3, not in any acute distress. Morbidly obese HEENT: Pupils are round and equally reacting to light. EOMI. No scleral icterus. No conjunctival pallor. Normocephalic, atraumatic. No pharyngeal erythema. No thyromegaly. CARDIOVASCULAR: S1 and S2 present. No murmurs, rubs, or gallops. -PULMONARY: Chest is clear to auscultation, decreased air entry with the scattered wheezing, present since admission ABDOMEN: Soft, nontender, nondistended, normoactive bowel sounds. No palpable organomegaly. MUSCULOSKELETAL: No joint swelling or deformity. EXTREMITIES: No cyanosis, clubbing, or pedal edema. NEUROLOGICAL: Gross neurological examination did not reveal any focal deficits. SKIN: No rashes. no petechiae. - Labs CBC & Chem 7: 11/27/20 08:35 11/27/20 08:35 Labs: Abnormal Lab Results - Last 24 Hours (Table) 11/26/20 11/26/20 11/26/20 Range/Units 14:07 14:56 21:04 RBC (4.30-5.90) m/uL Hgb (13.0-17.5) gm/dL MCV (80.0-100.0) fL MCHC (31.0-37.0) g/dL Neutrophils # (1.3-7.7) k/uL Lymphocytes # (1.0-4.8) k/uL ABG pH 7.29 L (7.35-7.45) ABG pCO2 83 H* (35-45) mmHg ABG pO2 246 H (83-108) mmHg ABG HCO3 40 H* (21-25) mmol/L ABG Total CO2 42 H (19-24) mmol/L ABG O2 Saturation 99.5 H (94-97) % Chloride (98-107) mmol/L Carbon Dioxide (22-30) mmol/L BUN (9-20) mg/dL Glucose (74-99) mg/dL POC Glucose (mg/dL) 130 H 118 H (75-99) mg/dL 11/27/20 11/27/20 11/27/20 Range/Units 06:20 08:35 08:35 RBC 3.87 L (4.30-5.90) m/uL Hgb 12.3 L (13.0-17.5) gm/dL MCV 104.0 H (80.0-100.0) fL MCHC 30.5 L (31.0-37.0) g/dL Neutrophils # 8.7 H (1.3-7.7) k/uL Lymphocytes # 0.6 L (1.0-4.8) k/uL ABG pH (7.35-7.45) ABG pCO2 (35-45) mmHg ABG pO2 (83-108) mmHg ABG HCO3 (21-25) mmol/L ABG Total CO2 (19-24) mmol/L ABG O2 Saturation (94-97) % Chloride 96 L (98-107) mmol/L Carbon Dioxide 40 H (22-30) mmol/L BUN 32 H (9-20) mg/dL Glucose 203 H (74-99) mg/dL POC Glucose (mg/dL) 164 H (75-99) mg/dL Assessment and Plan Assessment: new onset Atrial fibrillation with RVR Acute systolic CHF, ejection fraction 45-50% moderate to severe tricuspid regurgitation Severe pulmonary hypertension Acute COPD exacerbation hyperlipidemia hypertension nicotine dependance osteoarthritis emphysemia and copd on chroinc oxygen use at home (4 L/M) left eye detached retina, wet macular degeneration of the right eye, legally blind melanoma on the back hearing difficulty obesity Plan: this is a pleasant 74 yo M who presents with afib and rvr, c/w cardizem , continue with metoprolol and amiodarone and monitor heart rate Continue with with IV Lasix, continue with Eliquis cardiology consult starts Solu-Medrol labs and medication were reviewed.. Continue same treatment. Continue with symptomatic treatment. Resume home medication. Monitor lytes and vitals. DVT and GI prophylaxis. Further recommendationsas per clinical course of the patient DVT prophylaxis: Eliquis GI Prophylaxis: Pepcid
[2020-11-27 11:38] LABS: Glucose,Whole Blood 205 mg/dL (75-99)
[2020-11-27] MEDS: DILTIAZEM 125 MG in SODIUM CHLORIDE 0.9% 100 ML IV SCH ×2 (12:56→20:44)
--- NOTE | 2020-11-27 13:02 | P.CNPUL ---
History of Present Illness Consult date: 11/27/20 Requesting physician: Issa E Joselin Reason for consult: dyspnea, COPD Chief complaint: New-onset atrial fibrillation, shortness of breath History of present illness: This is a very pleasant 74-year-old gentleman who follows at the [facility] for his primary care needs. He has a history of hearing disorder, hyperlipidemia, hypertension, osteoarthritis, kidney cancer in 2006, macular degeneration, melanoma removed from his back daily alcohol use, history of marijuana use. He also has chronic and ongoing tobacco dependence and oxygen dependent chronic obstructive pulmonary disease and had previously followed with a director public service that he was not liking and is scheduled to see Dr. Ware in our office next month. He has only been on a Ventolin rescue inhaler. However on 11/25/2020 he had been seen by his wellness consultant Dr. Kramer and found to be in new onset atrial fibrillation with a rapid ventricular response. The patient was having issues with dizziness, lightheadedness and shortness of breath and was referred here to the emergency room for the same. Chest x-ray revealed some pulmonary edema and mild bibasilar airspace disease. Arterial blood gases revealed a pO2 of 246, pCO2 83, pH 7.29 on 100% FiO2. He was placed on BiPAP support of 14/7 and 40% FiO2. He is seen today in consultation on the selective care unit. He sitting up at the bedside. Awake, alert and oriented 3. Maintaining O2 saturation in the 90s on 4 L/m per nasal cannula currently. No worsening shortness of breath, cough or congestion. He does remain in atrial fibrillation. He remains on IV diuretics, IV Solu-Medrol, bronchodilators. He's anticoagulated with Eliquis. White count 9.5. Hemoglobin 12.3. Sodium 141. Potassium 4.6. Creatinine 1.17. Review of Systems REVIEW OF SYSTEMS: CONSTITUTIONAL: Denies any recent significant weight loss or weight gain. EYES: Denies change in vision. EARS, NOSE, MOUTH, THROAT: Denies headaches, denies sore throat. CARDIOVASCULAR: Positive for dizziness, lightheadedness, palpitations no syncopal episodes. RESPIRATORY: Positive for shortness of breath, no cough, congestion or hemoptysis. GASTROINTESTINAL: Denies change in appetite, denies abdominal pain GENITOURINARY: Denies hematuria, denies infections. MUSKULOSKELETAL: Denies pain, denies swelling. INTEGUMENTARY: Denies rash, denies eczema. NEUROLOGICAL: Denies recent memory loss, no recent seizure activity. PSYCHIATRIC: Denies anxiety, denies depression. HEMATOLOGIC/LYMPHATIC: Denies anemia, denies enlarged lymph nodes. Past Medical History Past Medical History: Cancer, Eye Disorder, Hearing Disorder / Deafness, H yperlipidemia, Hypertension, Osteoarthritis (OA) Additional Past Medical History / Comment(s): Emphysema (takes inhalers and uses oxygen at home). Hx Kidney Cancer in 2006. Left eye detached retina. Wet Macular Degeneration right eye. Hx Melanoma on back. Bilateral hearing aid use, legally blind. History of Any Multi-Drug Resistant Organisms: None Reported Past Surgical History: Back Surgery Additional Past Surgical History / Comment(s): Right kidney removed. Left eye surgery X3 for detacted retina. Bilateral cataract surgery. Mohs surgery thoracic spine for melanoma. Past Anesthesia/Blood Transfusion Reactions: Previous Problems w/ Anesthesia Additional Past Anesthesia/Blood Transfusion Reaction / Comment(s): States low heart rate, light-headed and low BP X1 with anesthesia. "Got broke vocal cord and could not talk for 2 months after anesthesia one time." Past Psychological History: No Psychological Hx Reported Past Alcohol Use History: Daily Past Drug Use History: Marijuana - Past Family History Mother Family Medical History: Cancer Additional Family Medical History / Comment(s): Brain CA. Father Family Medical History: CVA/TIA Medications and Allergies Home Medications Medication Instructions Recorded Confirmed Type Vit C/E/Zn/Coppr/Lutein/Zeaxan 1 cap PO BID 08/03/17 11/25/20 History [Preservision Areds 2 Softgel] Albuterol Sulfate [Proair Hfa] 2 puff INHALATION RT-Q6H PRN 02/23/19 11/25/20 History Gabapentin [Neurontin] 400 mg PO BID 02/23/19 11/25/20 History Metoprolol Tartrate [Lopressor] 25 mg PO BID 02/23/19 11/25/20 History lisinopriL [Zestril] 2.5 mg PO HS 02/23/19 11/25/20 History Albuterol Nebulized [Ventolin 2.5 mg INHALATION RT-QID PRN 11/25/20 11/25/20 History Nebulized] Aspirin EC [Ecotrin Low Dose] 81 mg PO DAILY 11/25/20 11/25/20 History Dextran 70/Hypromellose 1 drop BOTH EYES QID 11/25/20 11/25/20 History [Lubricating Tears 0.1-0.3% Drp] Escitalopram [Lexapro] 10 mg PO DAILY 11/25/20 11/25/20 History Lidocaine 4% Cream [Lmx 4] 1 applic TOPICAL BID PRN 11/25/20 11/25/20 History Apixaban [Eliquis] 5 mg PO BID 30 Days #60 tab 11/26/20 Rx Allergies Allergy/AdvReac Type Severity Reaction Status Date / Time atorvastatin [From Lipitor] AdvReac Muscle Pain Verified 11/25/20 13:41 Physical Exam Vitals: Vital Signs Temp Pulse Resp BP Pulse Ox 11/27/20 11:57 97.6 F 142 H 18 112/58 97 11/27/20 08:00 98 F 147 H 21 91 L 11/27/20 03:57 97.5 F L 117 H 21 102/61 94 L 11/27/20 00:00 97.5 F L 118 H 22 100/51 95 11/26/20 20:10 22 95 11/26/20 20:00 98.5 F 109 H 23 108/66 96 11/26/20 15:52 98 F 68 20 125/59 99 11/26/20 14:00 80 20 Intake and Output 11/26/20 11/27/20 11/27/20 22:59 06:59 14:59 Intake Total 240 480 Output Total 225 250 Balance 15 -250 480 Intake: Oral 240 480 Output: Urine 225 250 Other: Voiding Method Urinal Urinal Urinal # Voids 1 1 Weight 136.5 kg GENERAL EXAM: Alert, pleasant 74-year-old gentleman, on 4 L nasal cannula alternating with BiPAP, fairly comfortable in no apparent distress. HEAD: Normocephalic. EYES: Normal reaction of pupils, equal size. NOSE: Clear with pink turbinates. THROAT: No erythema or exudates. NECK: No masses, no JVD. CHEST: No chest wall deformity. LUNGS: Equal air entry with faint crackles in the bases, diminished. CVS: S1 and S2 normal with no audible murmur, irregular rhythm. ABDOMEN: No hepatosplenomegaly, normal bowel sounds, no guarding or rigidity. SPINE: No scoliosis or deformity SKIN: No rashes CENTRAL NERVOUS SYSTEM: No focal deficits, tone is normal in all 4 extremities. EXTREMITIES: There is no peripheral edema. No clubbing, no cyanosis. Peripheral pulses are intact. Results - Laboratory Findings CBC and BMP: 11/27/20 08:35 11/27/20 08:35 ABG ABG pH 7.29 (7.35-7.45) L 11/26/20 14:56 ABG pCO2 83 mmHg (35-45) H* 11/26/20 14:56 ABG pO2 246 mmHg (83-108) H 11/26/20 14:56 ABG O2 Saturation 99.5 % (94-97) H 11/26/20 14:56 PT/INR, D-dimer PT 10.4 sec (9.0-12.0) 11/25/20 12:33 INR 1.0 (<1.2) 11/25/20 12:33 Abnormal lab findings: Abnormal Labs 11/25/20 11/25/20 11/26/20 12:33 12:33 02:44 RBC 3.83 L Hgb 12.3 L Hct 38.4 L MCV 100.4 H MCHC Neutrophils # Lymphocytes # APTT 33.4 H ABG pH ABG pCO2 ABG pO2 ABG HCO3 ABG Total CO2 ABG O2 Saturation Chloride Carbon Dioxide 36 H BUN 24 H Glucose 100 H POC Glucose (mg/dL) 11/26/20 11/26/20 11/26/20 02:44 02:44 09:46 RBC 3.67 L Hgb 11.5 L Hct 38.6 L MCV 105.0 H MCHC 29.9 L Neutrophils # Lymphocytes # APTT 36.8 H ABG pH ABG pCO2 ABG pO2 ABG HCO3 ABG Total CO2 ABG O2 Saturation Chloride 97 L Carbon Dioxide 38 H BUN 22 H Glucose 112 H POC Glucose (mg/dL) 11/26/20 11/26/20 11/26/20 14:07 14:56 21:04 RBC Hgb Hct MCV MCHC Neutrophils # Lymphocytes # APTT ABG pH 7.29 L ABG pCO2 83 H* ABG pO2 246 H ABG HCO3 40 H* ABG Total CO2 42 H ABG O2 Saturation 99.5 H Chloride Carbon Dioxide BUN Glucose POC Glucose (mg/dL) 130 H 118 H 11/27/20 11/27/20 11/27/20 06:20 08:35 08:35 RBC 3.87 L Hgb 12.3 L Hct MCV 104.0 H MCHC 30.5 L Neutrophils # 8.7 H Lymphocytes # 0.6 L APTT ABG pH ABG pCO2 ABG pO2 ABG HCO3 ABG Total CO2 ABG O2 Saturation Chloride 96 L Carbon Dioxide 40 H BUN 32 H Glucose 203 H POC Glucose (mg/dL) 164 H 11/27/20 11:36 RBC Hgb Hct MCV MCHC Neutrophils # Lymphocytes # APTT ABG pH ABG pCO2 ABG pO2 ABG HCO3 ABG Total CO2 ABG O2 Saturation Chloride Carbon Dioxide BUN Glucose POC Glucose (mg/dL) 205 H - Diagnostic Findings Chest x-ray: image reviewed Assessment and Plan Assessment: 1 Atrial fibrillation with a rapid ventricular response, anticoagulated with Eliquis 2 Acute on chronic hypoxemic/hypercapnic respiratory failure secondary to acute COPD exacerbation 3 Chronic obstructive pulmonary disease, oxygen dependent 4 Chronic and ongoing tobacco dependence 5 Acute on chronic systolic and diastolic congestive heart failure 6 Severe pulmonary hypertension 7 History of obstructive sleep apnea, not on home equipment 8 History of melanoma with resection on his back 9 Hypertension 10 Hyperlipidemia 12 Hearing disorder Plan: The patient was seen and evaluated by Dr. Ware Chest x-ray, ABGs and labs reviewed Continue with DuoNeb inhalations, Pulmicort and Perforomist inhalations, IV Solu-Medrol Continue IV diuretics Educated regarding the importance of complete smoking cessation Full pulmonary workup at his scheduled appointment with Dr. Ware 12/08/2020 We will continue to follow and make further recommendations based on his clinical status I, the cosigning physician, performed a history & physical examination of the patient. Lungs sounds with crackles in the posterior bases. Maintaining good O2 saturations in the 90s on 4 L/m per nasal cannula. I discussed the assessment and plan of care with my nurse practitioner, Irina Vidal. I attest to the above consultation as dictated by her. Time with Patient: Greater than 30
--- NOTE | 2020-11-27 13:33 | P.PN ---
Subjective This is a pleasant 74-year-old male past medical history significant for hypertension, non obstructive coronary artery disease, dyslipidemia, and COPD, obstructive sleep apnea. He follows in the office with Dr. Rodgers. We have been asked to see in consultation for atrial fibrillation with RVR. Patient started on amiodarone, IV Cardizem, and metoprolol tartrate was increased. Echocardiogram revealed left ventricular systolic function is mildly impaired with an EF of 45-50%, right ventricle is moderately to severely enlarged, mild mitral regurgitation, moderate to severe tricuspid regurgitation, severe pulmonary hypertension with an RVSP of 65.9 mmHg. Patient seen and examined at bedside, no acute distress. No change breathing. He continues to short of breath. Yesterday evening patient on IV Cardizem drip at 5 mg/hr, patient's heart rate was 60 to 80s, continued to be in atrial fibrillation and he was hypotensive. Cardizem drip was stopped. Overnight and this morning patient continued to be in atrial fibrillation tachycardic heart rate in the 140 to 160s. BP 118/66. G reviewed WBC 9.5, hemoglobin 12.3, platelets 240, sodium 141, potassium 4.6, BNP 2, serum creatinine 1.1, magnesium 1.9. Patient really maintained on amiodarone 400mg BID, Eliquis 5mg BID, Cardizem Drip on hold, Lasix 40mg IV BID, lisinopril 2.5mg night, metoprolol tartrate 50mg BID. His lower extremity edema has much improved. PHYSICAL EXAMINATION CONSTITUTIONAL: Sitting up at the bedside, no acute distress. HEENT: Head is normocephalic. No JVD. No carotid bruit. CHEST EXAMINATION: Lungs are clear to auscultation. No chest wall tenderness is noted on palpation or with deep breathing. HEART EXAMINATION: Irregular tachycardic rate and rhythm. S1, S2 heard. Systolic murmur noted left sternal border ABDOMEN: Soft, nontender. Positive bowel sounds. EXTREMITIES: 2+ peripheral pulses, No lower extremity extremity edema and no calf tenderness. NEUROLOGIC EXAMINATION: Patient is awake, alert and oriented x3. ASSESSMENT Paroxysmal atrial fibrillation with rapid ventricular response - [id number] score 3 Acute systolic heart failure- mildly impaired EF 45-50% Severe pulmonary hypertension Hypertension Nonobstructive coronary artery disease Dyslipidemia COPD Objective sleep apnea Chronic nicotine dependence PLAN -We will increase metoprolol tartrate to 75mg BID -Restart IV cardizem 5mg/hr if patient continues to be tachycardic -Continue amiodarone 400mg BID -Continue IV Lasix to 40mg BID -Continue lisinopril 2.5 mg nightly -Start Eliquis 5mg BID, will discontinue aspirin and heparin drip -Monitor renal function and electrolytes -Case management consulted for Eliquis coverage, due to patient's [employer] insurance Eliquis is covered at this time prescription sent to pharmacy for free month, case management is faxing a printed prescription to the [place] for coverage. -Further recommendations based on clinical course Nurse Practitioner note has been reviewed, I agree with a documented findings and plan of care. Patient was seen and examined. Objective - Vital Signs Vital signs: Vital Signs Temp 97.6 F 11/27/20 11:57 Pulse 142 H 11/27/20 11:57 Resp 18 11/27/20 11:57 BP 112/58 11/27/20 11:57 Pulse Ox 97 11/27/20 11:57 Intake & Output 11/26/20 11/27/20 11/27/20 18:59 06:59 18:59 Intake Total 479 240 480 Output Total 475 Balance 479 -235 480 Weight 137 kg 136.5 kg Intake: Intake, IV Titration 125 Amount Diltiazem 125 mg In 125 Sodium Chloride 0.9% 100 ml @ 5 MG/HR 5 mls/hr IV .Q24H [facility] Rx#:[id number] Oral 354 240 480 Output: Urine 475 Other: Voiding Method Urinal Urinal Urinal # Voids 1 - Labs CBC & Chem 7: 11/27/20 08:35 11/27/20 08:35 Labs: Abnormal Lab Results - Last 24 Hours (Table) 11/26/20 11/26/20 11/26/20 Range/Units 14:07 14:56 21:04 RBC (4.30-5.90) m/uL Hgb (13.0-17.5) gm/dL MCV (80.0-100.0) fL MCHC (31.0-37.0) g/dL Neutrophils # (1.3-7.7) k/uL Lymphocytes # (1.0-4.8) k/uL ABG pH 7.29 L (7.35-7.45) ABG pCO2 83 H* (35-45) mmHg ABG pO2 246 H (83-108) mmHg ABG HCO3 40 H* (21-25) mmol/L ABG Total CO2 42 H (19-24) mmol/L ABG O2 Saturation 99.5 H (94-97) % Chloride (98-107) mmol/L Carbon Dioxide (22-30) mmol/L BUN (9-20) mg/dL Glucose (74-99) mg/dL POC Glucose (mg/dL) 130 H 118 H (75-99) mg/dL 11/27/20 11/27/20 11/27/20 Range/Units 06:20 08:35 08:35 RBC 3.87 L (4.30-5.90) m/uL Hgb 12.3 L (13.0-17.5) gm/dL MCV 104.0 H (80.0-100.0) fL MCHC 30.5 L (31.0-37.0) g/dL Neutrophils # 8.7 H (1.3-7.7) k/uL Lymphocytes # 0.6 L (1.0-4.8) k/uL ABG pH (7.35-7.45) ABG pCO2 (35-45) mmHg ABG pO2 (83-108) mmHg ABG HCO3 (21-25) mmol/L ABG Total CO2 (19-24) mmol/L ABG O2 Saturation (94-97) % Chloride 96 L (98-107) mmol/L Carbon Dioxide 40 H (22-30) mmol/L BUN 32 H (9-20) mg/dL Glucose 203 H (74-99) mg/dL POC Glucose (mg/dL) 164 H (75-99) mg/dL 11/27/20 Range/Units 11:36 RBC (4.30-5.90) m/uL Hgb (13.0-17.5) gm/dL MCV (80.0-100.0) fL MCHC (31.0-37.0) g/dL Neutrophils # (1.3-7.7) k/uL Lymphocytes # (1.0-4.8) k/uL ABG pH (7.35-7.45) ABG pCO2 (35-45) mmHg ABG pO2 (83-108) mmHg ABG HCO3 (21-25) mmol/L ABG Total CO2 (19-24) mmol/L ABG O2 Saturation (94-97) % Chloride (98-107) mmol/L Carbon Dioxide (22-30) mmol/L BUN (9-20) mg/dL Glucose (74-99) mg/dL POC Glucose (mg/dL) 205 H (75-99) mg/dL
[2020-11-27 17:03] LABS: Glucose,Whole Blood 142 mg/dL (75-99)
[2020-11-27] MEDS: SODIUM CHLORIDE 0.9% 1,000 ML IV SCH (19:28)
[2020-11-27 20:12] LABS: Glucose,Whole Blood 161 mg/dL (75-99)
[2020-11-27] MEDS: METOPROLOL TARTRATE 25 MG TAB PO SCH (20:25)
[2020-11-28 06:12] LABS: Glucose,Whole Blood 150 mg/dL (75-99)
[2020-11-28] MEDS: INSULIN ASPART (NovoLOG) 100 UNIT/ML VIAL SQ SCH ×4 (06:24→21:22)
[2020-11-28] MEDS: VIT A,C & E-LUTEIN-MINERALS 1 EACH TAB PO SCH (08:53)
[2020-11-28] MEDS: METOPROLOL TARTRATE 25 MG TAB PO SCH ×2 (08:53→21:22)
[2020-11-28] MEDS: methylPREDNISolone SOD SUCCI 40 MG/ML 1 ML VIAL IV SCH (08:53)
[2020-11-28] MEDS: AMIODARONE 200 MG TAB PO SCH ×2 (08:54→21:22)
[2020-11-28] MEDS: ESCITALOPRAM 10 MG TAB PO SCH (08:54)
[2020-11-28] MEDS: GABAPENTIN 400 MG CAP PO SCH ×2 (08:54→21:21)
[2020-11-28] MEDS: FUROSEMIDE 10 MG/ML 4 ML VIAL IV SCH (08:58)
[2020-11-28] MEDS: APIXABAN 5 MG TAB PO SCH ×2 (08:58→21:21)
[2020-11-28] MEDS: ARTIFICIAL TEARS-HYPROMELLOSE DROPS 15 ML BTL BOTH EYES SCH ×4 (08:59→21:23)
[2020-11-28 09:08] LABS: Calcium 8.8 mg/dL (8.4-10.2); Potassium 4.8 mmol/L (3.5-5.1)
[2020-11-28 11:34] LABS: Glucose,Whole Blood 168 mg/dL (75-99)
--- NOTE | 2020-11-28 12:17 | P.PN ---
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 melanoma on the back, hearing difficulty , legally blind . he follows up with the [facility] , his cardiologsit is and executive administrative asst is , he went to see today for palpiation and not feeling well and found to have a fib and rve , he was referred to the emergency room, no chest pain or dyspnea. no abd pain or diarrhea ,no urinary complaint or fever he smokes 1-2 ceg per day, he drinks once or twice weekly ,no illicit drugs on admission his HR 140-180s, rest of vitals are stable labs reviewed, unremarkable CBC, BMP LFT. TSH is normal at 1.8. troponin is negative at <0.012, proBNP 3310 EKG: atrial fibrillation at 179 CXR: no acute process 11/26/2020 Patient denies chest pain or dyspnea today, however looks like he has some difficulty breathing when talking although he denies any symptoms. He is using his CPAP machine from home at night for his EIGHTH. No coughing. No chest pain. No other complaint. Heart rate still uncontrolled at 138, pressure is on the low side 90/54 after m etoprolol 50 mg added by polisher aluminum. Therefore amiodarone was added also by polisher aluminum 400 mg twice daily. His creatinine and labs are normal. cht x-ray some bilateral pulmonary congestion and small right pleural effusion Heparin drip switch to Eliquis, we need to find the co-pay. He kept on Cardizem drip. A diagram showed ejection fraction of 45-50% with mild LVH, deferred to severe tricuspid regurgitation, es severe pulmonary hypertension 11/27/2020 Patient denies any symptoms currently, sitting at bedside. No chest pain or dyspnea. He uses CPAP machine last night where he had ABG shows CO2 retention. Today he is fully awake and oriented in his breathing quietly. His heart rate this morning was 147, he is already on amiodarone and metoprolol 50 mg which is increased to 75 mg, draped currently improved down to 117. Yesterday his blood pressure dropped to about 86/60s on Cardizem drip, so give him a bolus of 500 mL of normal saline, his Cardizem drip is stopped currently. Today systolic blood pressure is 118. And as stated he is asymptomatic. But he has bilateral leg swelling and decreased air entry on both legs on examination. Patient confirms history of COPD. He denies significant coughing or phlegm. No abdominal or GI complaints. Labs look stable. Cardiogram showed ejection fraction of 45-50% with mild LVH, there to severe tricuspid regurgitation severe pulmonary hypertension Remains on Eliquis 5 mg, Lasix 40 mg IV twice daily, salmeterol 40 mg, metoprolol 75 mg and amiodarone 400 mg 11/28/2020 Patient is still clinically the same, not in respiratory distress while at rest. His total using the BiPAP machine during the night. This morning he was still on bicarb drip and his creatinine went up to 1.6 this morning. Cardiology and pulmonary input is appreciated. Kept on Eliquis 5 mg, Solu-Medrol, we will check cartilage team to switch his Lasix oral scissors creatinine went up. We will keep monitoring Objective - Vital Signs Vital signs: Vital Signs Temp 97.6 F 11/28/20 08:00 Pulse 103 H 11/28/20 08:00 Resp 22 11/28/20 08:00 BP 119/56 11/28/20 08:00 Pulse Ox 96 11/28/20 08:00 Intake & Output 11/27/20 11/28/20 11/28/20 18:59 06:59 18:59 Intake Total 1360 399 240 Output Total 550 375 175 Balance 810 24 65 Weight 139 kg Intake: Intake, IV Titration 39 Amount Diltiazem 125 mg In 39 Sodium Chloride 0.9% 100 ml @ 5 MG/HR 5 mls/hr IV .Q24H [facility] Rx#:[id number] Oral 1360 360 240 Output: Urine 550 375 175 Other: Voiding Method Urinal Urinal - Exam -GENERAL: The patient is alert and oriented x3, not in any acute distress. M orbidly obese HEENT: Pupils are round and equally reacting to light. EOMI. No scleral icterus. No conjunctival pallor. Normocephalic, atraumatic. No pharyngeal erythema. No thyromegaly. CARDIOVASCULAR: S1 and S2 present. No murmurs, rubs, or gallops. -PULMONARY: Chest is clear to auscultation, decreased air entry with the scattered wheezing, present since admission ABDOMEN: Soft, nontender, nondistended, normoactive bowel sounds. No palpable organomegaly. MUSCULOSKELETAL: No joint swelling or deformity. EXTREMITIES: No cyanosis, clubbing, or pedal edema. NEUROLOGICAL: Gross neurological examination did not reveal any focal deficits. SKIN: No rashes. no petechiae. - Labs CBC & Chem 7: 11/27/20 08:35 11/28/20 08:22 Labs: Abnormal Lab Results - Last 24 Hours (Table) 11/27/20 11/27/20 11/28/20 Range/Units 17:02 20:11 06:11 Chloride (98-107) mmol/L Carbon Dioxide (22-30) mmol/L BUN (9-20) mg/dL Creatinine (0.66-1.25) mg/dL Glucose (74-99) mg/dL POC Glucose (mg/dL) 142 H 161 H 150 H (75-99) mg/dL 11/28/20 11/28/20 Range/Units 08:22 11:31 Chloride 91 L (98-107) mmol/L Carbon Dioxide 38 H (22-30) mmol/L BUN 45 H (9-20) mg/dL Creatinine 1.61 H (0.66-1.25) mg/dL Glucose 188 H (74-99) mg/dL POC Glucose (mg/dL) 168 H (75-99) mg/dL Assessment and Plan Assessment: new onset Atrial fibrillation with RVR Acute systolic CHF, ejection fraction 45-50% moderate to severe tricuspid regurgitation Severe pulmonary hypertension Acute COPD exacerbation hyperlipidemia hypertension nicotine dependance osteoarthritis emphysemia and copd on chroinc oxygen use at home (4 L/M) left eye detached retina, wet macular degeneration of the right eye, legally blind melanoma on the back hearing difficulty obesity Plan: this is a pleasant 74 yo M who presents with afib and rvr, c/w cardizem , continue with metoprolol and amiodarone and monitor heart rate Continue with with IV Lasix, continue with Eliquis cardiology consult starts Solu-Medrol labs and medication were reviewed.. Continue same treatment. Continue with symptomatic treatment. Resume home medication. Monitor lytes and vitals. DVT and GI prophylaxis. Further recommendationsas per clinical course of the patient DVT prophylaxis: Eliquis GI Prophylaxis: Pepcid
--- NOTE | 2020-11-28 13:34 | P.PN ---
Subjective Progress Note Date: 11/28/20 Principal diagnosis: New-onset A. fib, shortness of breath This is a very pleasant 74-year-old gentleman who follows at the [facility] clinic for his primary care needs. He has a history of hearing disorder, hyperlipidemia, hypertension, osteoarthritis, kidney cancer in 2006, macular degeneration, melanoma removed from his back daily alcohol use, history of marijuana use. He also has chronic and ongoing tobacco dependence and oxygen dependent chronic obstructive pulmonary disease and had previously followed with a hide salter that he was not liking and is scheduled to see Dr. Ware in our office next month. He has only been on a Ventolin rescue inhaler. However on 11/25/2020 he had been seen by his radiology orderly Dr. Kramer and found to be in new onset atrial fibrillation with a rapid ventricular response. The patient was having issues with dizziness, lightheadedness and shortness of breath and was referred here to the emergency room for the same. Chest x-ray revealed some pulmonary edema and mild bibasilar airspace disease. Arterial blood gases revealed a pO2 of 246, pCO2 83, pH 7.29 on 100% FiO2. He was placed on BiPAP support of 14/7 and 40% FiO2. He is seen today in consultation on the selective care unit. He sitting up at the bedside. Awake, alert and oriented 3. Maintaining O2 saturation in the 90s on 4 L/m per nasal cannula currently. No worsening shortness of breath, cough or congestion. He does remain in atrial fibrillation. He remains on IV diuretics, IV Solu-Medrol, bronchodilators. He's anticoagulated with Eliquis. White count 9.5. Hemoglobin 12.3. Sodium 141. Potassium 4.6. Creatinine 1.17. On 11/28/2020 patient seen in follow-up on selective care unit, he is currently on 3 L of oxygen pulse ox is 96%, he did wear BiPAP overnight, remains in A. fib with a rate of 103 bpm, plantar chest pain, he remains on lasix at 40 mg every 12 hours, net fluid balance is difficult to estimate, she still appears to be in positive fluid balance. Remains on Lasix 40 mg every 12 hours. Today's labs have been reviewed, his sodium is 137, potassium is 4.8, chloride is 91, CO2 is 38, B1 is 45, creatinine is 1.61. Overall he is breathing comfortably, he sitting up on the edge of the bed, his is at the bedside. No hemoptysis, no wheezing or phlegm production. His chest x-ray showed no acute process. Patient was started on Eliquis and oral Cordarone by cardiology. She remains on IV Lasix currently at 40 mg every 8 hours. His echocardiogram showed mildly impaired LV function with EF of 45-50%, no evidence of aortic regurgitation, no evidence of aortic stenosis, moderate to severe tricuspid regurgitation, severe pulmonary hypertension with right-sided pressure of 65.9 mmHg. Objective - Vital Signs Vital signs: Vital Signs Temp 97.6 F 11/28/20 08:00 Pulse 103 H 11/28/20 08:00 Resp 22 11/28/20 08:00 BP 119/56 11/28/20 08:00 Pulse Ox 96 11/28/20 08:00 Intake & Output 11/27/20 11/28/20 11/28/20 18:59 06:59 18:59 Intake Total 1360 399 480 Output Total 550 375 175 Balance 810 24 305 Weight 139 kg Intake: Intake, IV Titration 39 Amount Diltiazem 125 mg In 39 Sodium Chloride 0.9% 100 ml @ 5 MG/HR 5 mls/hr IV .Q24H [facility] Rx#:[id number] Oral 1360 360 480 Output: Urine 550 375 175 Other: Voiding Method Urinal Urinal - Exam GENERAL EXAM: Alert, very pleasant, 74-year-old white male, on 3 L of oxygen p ulse ox of 96% comfortable in no apparent distress. HEAD: Normocephalic/atraumatic. EYES: Normal reaction of pupils, equal size. Conjunctiva pink, sclera white. NOSE: Clear with pink turbinates. THROAT: No erythema or exudates. NECK: No masses, no JVD, no thyroid enlargement, no adenopathy. CHEST: No chest wall deformity. Symmetrical expansion. LUNGS: Equal air entry with no crackles, wheeze, rhonchi or dullness. CVS: Irregular rate and rhythm, normal S1 and S2, no gallops, no murmurs, no rub s ABDOMEN: Soft, nontender. No hepatosplenomegaly, normal bowel sounds, no guarding or rigidity. EXTREMITIES: No clubbing, no edema, no cyanosis, 2+ pulses and upper and lower extremities. MUSCULOSKELETAL: Muscle strength and tone normal. SPINE: No scoliosis or deformity SKIN: No rashes CENTRAL NERVOUS SYSTEM: Alert and oriented -3. No focal deficits, tone is normal in all 4 extremities. PSYCHIATRIC: Alert and oriented -3. Appropriate affect. Intact judgment and insight. - Labs CBC & Chem 7: 11/27/20 08:35 11/28/20 08:22 Labs: Abnormal Lab Results - Last 24 Hours (Table) 11/27/20 11/27/20 11/28/20 Range/Units 17:02 20:11 06:11 Chloride (98-107) mmol/L Carbon Dioxide (22-30) mmol/L BUN (9-20) mg/dL Creatinine (0.66-1.25) mg/dL Glucose (74-99) mg/dL POC Glucose (mg/dL) 142 H 161 H 150 H (75-99) mg/dL 11/28/20 11/28/20 Range/Units 08:22 11:31 Chloride 91 L (98-107) mmol/L Carbon Dioxide 38 H (22-30) mmol/L BUN 45 H (9-20) mg/dL Creatinine 1.61 H (0.66-1.25) mg/dL Glucose 188 H (74-99) mg/dL POC Glucose (mg/dL) 168 H (75-99) mg/dL Assessment and Plan Plan: Assessment: #1. Acute on chronic hypoxic/hypercapnic respiratory failure secondary to acute COPD exacerbation #2. A. fib with RVR, currently better controlled, on metoprolol and amiodarone and Eliquis for anticoagulation #3. Chronic obstructive pulmonary disease, oxygen dependent at baseline #4. Chronic and ongoing tobacco dependence #5. Acute on chronic systolic and diastolic CHF #6. Severe pulmonary hypertension with severe tricuspid regurgitation and mildly impaired EF #7. History of obstructive sleep apnea not on home CPAP #8. History of melanoma with resection on his back #9. Hypertension #10. Hyperlipidemia #11. Hearing disorder #12. Acute kidney injury related to diuretics Plan: Continue IV Lasix to once daily Stop IV steroids and switched to oral prednisone 40 mg daily From pulmonary perspective patient can be considered for discharge home when cleared by cardiology and medicine He has a upcoming appointment with Dr. Ware December 2 Antiarrhythmics and anticoagulation per cardiology Smoking cessation was strongly advised We'll continue to follow I performed a history & physical examination of the patient and discussed their management with my nurse practitioner, Bridget Roy. I reviewed the nurse practitioner's note and agree with the documented findings and plan of care. Lung sounds are positive for diffuse wheezes throughout the lung farah. The fi ndings and the impression was discussed with the patient. I attest to the documentation by the nurse practitioner. Time with Patient: Less than 30
--- NOTE | 2020-11-28 14:46 | P.PN ---
Subjective Progress Note Date: 11/28/20 This is a pleasant 74-year-old gentleman with a past medical history significant for hypertension, nonobstructive CAD, dyslipidemia, COPD, and obstructive sleep apnea. He follows in the office with Dr. Rodgers. Presented to the hospital with complaints of worsening fatigue, decreased energy and progressively worsening dyspnea on exertion over the past 2-3 weeks. We were asked the patient in consultation for atrial fibrillation with rapid ventricular response. Was initiated on Cardizem drip. He is currently on amiodarone 400 mg by mouth twice a day and metoprolol tartrate 75 mg by mouth twice a day. Cardizem drip continues at 5 mg an hour. Heart rate is currently in the 80s. Cardiogram with Doppler study done this admission showed mildly impaired LV systolic function with an ejection fraction between 45-50%, moderate to severely enlarged RV, mild MR, moderate to severe TR and severe pulmonary hypertension with RVSP of 65.95 mmHg. He is currently being diuresed with IV Lasix 40 mg every 12 hours. Abscess morning show worsening renal function with a BUN of 45 and creatinine of 1.61. On examination he sitting up at the side of the bed. He overall feels a bit better. He feels his breathing is stable over the last 24 hours. He denies any complaints of chest discomfort, dizziness, lightheadedness or palpitations. He denies any orthopnea or PND. He's been using BiPAP at night. Blood pressure is stable. He's been afebrile. Objective - Vital Signs Vital signs: Vital Signs Temp 97.6 F 11/28/20 08:00 Pulse 103 H 11/28/20 08:00 Resp 22 11/28/20 08:00 BP 119/56 11/28/20 08:00 Pulse Ox 96 11/28/20 08:00 Intake & Output 11/27/20 11/28/20 11/28/20 18:59 06:59 18:59 Intake Total 1360 399 240 Output Total 550 375 175 Balance 810 24 65 Weight 139 kg Intake: Intake, IV Titration 39 Amount Diltiazem 125 mg In 39 Sodium Chloride 0.9% 100 ml @ 5 MG/HR 5 mls/hr IV .Q24H [facility] Rx#:[id number] Oral 1360 360 240 Output: Urine 550 375 175 Other: Voiding Method Urinal Urinal - Exam PHYSICAL EXAMINATION: HEENT: Head is atraumatic, normocephalic. Pupils equal, round. Neck is supple. There is no elevated jugular venous pressure. HEART EXAMINATION: Heart sounds irregular rate and rhythm, S1 and S2 normal. The systolic murmur. CHEST EXAMINATION: Lungs reveal diminished air entry bilaterally. No chest wall tenderness is noted on palpation or with deep breathing. ABDOMEN: Soft, nontender. Bowel sounds are heard. No organomegaly noted. EXTREMITIES: 2+ peripheral pulses with evidence of mild peripheral edema and no calf tenderness noted. NEUROLOGIC patient is awake, alert and oriented x3. . - Labs CBC & Chem 7: 11/27/20 08:35 11/28/20 08:22 Labs: Abnormal Lab Results - Last 24 Hours (Table) 11/27/20 11/27/20 11/28/20 Range/Units 17:02 20:11 06:11 Chloride (98-107) mmol/L Carbon Dioxide (22-30) mmol/L BUN (9-20) mg/dL Creatinine (0.66-1.25) mg/dL Glucose (74-99) mg/dL POC Glucose (mg/dL) 142 H 161 H 150 H (75-99) mg/dL 11/28/20 11/28/20 Range/Units 08:22 11:31 Chloride 91 L (98-107) mmol/L Carbon Dioxide 38 H (22-30) mmol/L BUN 45 H (9-20) mg/dL Creatinine 1.61 H (0.66-1.25) mg/dL Glucose 188 H (74-99) mg/dL POC Glucose (mg/dL) 168 H (75-99) mg/dL Assessment and Plan Assessment: #1 atrial fibrillation with rapid ventricular response, likely persistent, currently anticoagulated with Eliquis, rate currently controlled on metoprolol tartrate 75 mg by mouth twice a day, amiodarone 400 mg by mouth twice a day and Cardizem at 5 mg per hour. #2 acute congestive heart failure with mildly impaired systolic function ejection fraction 45-50% #3 severe pulmonary hypertension #4 hypertension #5 nonobstructive CAD #6 dyslipidemia #7 COPD #8 obstructive sleep apnea #9 chronic nicotine dependence Plan: From cardiology perspective we will stop IV Cardizem. We will switch the patient to by mouth Lasix. We will continue to monitor renal function, electrolytes, daily weights as well as intake and outputs. We will continue to follow the patient provide further recommendations accordingly. YARN DUMPER note has been reviewed, I agree with a documented findings and plan of care. Patient was seen and examined.
[2020-11-28 16:34] LABS: Glucose,Whole Blood 147 mg/dL (75-99)
[2020-11-28 20:15] LABS: Glucose,Whole Blood 188 mg/dL (75-99)
[2020-11-28] MEDS ORDERED: METOPROLOL TARTRATE 50 MG TAB PO STA (22:28)
[2020-11-29 06:07] LABS: Glucose,Whole Blood 125 mg/dL (75-99)
[2020-11-29] MEDS: INSULIN ASPART (NovoLOG) 100 UNIT/ML VIAL SQ SCH ×4 (06:09→20:42)
[2020-11-29 08:11] LABS: Calcium 8.8 mg/dL (8.4-10.2)
[2020-11-29] MEDS ORDERED: FUROSEMIDE 10 MG/ML 4 ML VIAL IV SCH (09:00)
[2020-11-29] MEDS: GABAPENTIN 400 MG CAP PO SCH ×2 (09:38→20:41)
[2020-11-29] MEDS: predniSONE 20 MG TAB PO SCH (09:38)
[2020-11-29] MEDS: METOPROLOL TARTRATE 25 MG TAB PO SCH ×3 (09:38→21:44)
[2020-11-29] MEDS: ESCITALOPRAM 10 MG TAB PO SCH (09:38)
[2020-11-29] MEDS: VIT A,C & E-LUTEIN-MINERALS 1 EACH TAB PO SCH (09:38)
[2020-11-29] MEDS: AMIODARONE 200 MG TAB PO SCH ×2 (09:39→20:41)
[2020-11-29] MEDS: ARTIFICIAL TEARS-HYPROMELLOSE DROPS 15 ML BTL BOTH EYES SCH ×4 (09:39→20:42)
[2020-11-29] MEDS: APIXABAN 5 MG TAB PO SCH ×2 (09:39→20:42)
[2020-11-29] MEDS ORDERED: METOPROLOL TARTRATE 50 MG TAB PO STA (11:10)
[2020-11-29 11:43] LABS: Glucose,Whole Blood 112 mg/dL (75-99)
--- NOTE | 2020-11-29 12:17 | P.PN ---
Subjective Progress Note Date: 11/29/20 Principal diagnosis: New-onset A. fib, shortness of breath This is a very pleasant 74-year-old gentleman who follows at the [facility] clinic for his primary care needs. He has a history of hearing disorder, hyperlipidemia, hypertension, osteoarthritis, kidney cancer in 2006, macular degeneration, melanoma removed from his back daily alcohol use, history of marijuana use. He also has chronic and ongoing tobacco dependence and oxygen dependent chronic obstructive pulmonary disease and had previously followed with a veneer marker that he was not liking and is scheduled to see Dr. Ware in our office next month. He has only been on a Ventolin rescue inhaler. However on 11/25/2020 he had been seen by his whirley operator Dr. Kramer and found to be in new onset atrial fibrillation with a rapid ventricular response. The patient was having issues with dizziness, lightheadedness and shortness of breath and was referred here to the emergency room for the same. Chest x-ray revealed some pulmonary edema and mild bibasilar airspace disease. Arterial blood gases revealed a pO2 of 246, pCO2 83, pH 7.29 on 100% FiO2. He was placed on BiPAP support of 14/7 and 40% FiO2. He is seen today in consultation on the selective care unit. He sitting up at the bedside. Awake, alert and oriented 3. Maintaining O2 saturation in the 90s on 4 L/m per nasal cannula currently. No worsening shortness of breath, cough or congestion. He does remain in atrial fibrillation. He remains on IV diuretics, IV Solu-Medrol, bronchodilators. He's anticoagulated with Eliquis. White count 9.5. Hemoglobin 12.3. Sodium 141. Potassium 4.6. Creatinine 1.17. On 11/28/2020 patient seen in follow-up on selective care unit, he is currently on 3 L of oxygen pulse ox is 96%, he did wear BiPAP overnight, remains in A. fib with a rate of 103 bpm, plantar chest pain, he remains on lasix at 40 mg every 12 hours, net fluid balance is difficult to estimate, she still appears to be in positive fluid balance. Remains on Lasix 40 mg every 12 hours. Today's labs have been reviewed, his sodium is 137, potassium is 4.8, chloride is 91, CO2 is 38, B1 is 45, creatinine is 1.61. Overall he is breathing comfortably, he sitting up on the edge of the bed, his is at the bedside. No hemoptysis, no wheezing or phlegm production. His chest x-ray showed no acute process. Patient was started on Eliquis and oral Cordarone by cardiology. She remains on IV Lasix currently at 40 mg every 8 hours. His echocardiogram showed mildly impaired LV function with EF of 45-50%, no evidence of aortic regurgitation, no evidence of aortic stenosis, moderate to severe tricuspid regurgitation, severe pulmonary hypertension with right-sided pressure of 65.9 mmHg. On the 2020 patient seen in follow-up on selective care unit, he is sitting up in the recliner, breathing comfortably, he is currently just on 2 L of oxygen pulse ox is 95%. Awake and alert, oriented 3, no altered mentation, he did wear BiPAP last night with FiO2 of 40%. Has had no acute events overnight, he remains in atrial fibrillation, with a rate of 109 BPM. No worsening cough or congestion. No new chest x-ray, we'll cut back his Lasix yesterday to once daily in view of his worsening renal function, he has remained on Lasix 40 mg once daily today's labs have been reviewed showing teen worsening of renal function, and his creatinine is up to 1.7, and BUN is 55 with CO2 of 39. He continues on oral prednisone and breathing treatments, no significant wheezing, chest tightness, no significant phlegm production. Objective - Vital Signs Vital signs: Vital Signs Temp 97.8 F 11/29/20 11:36 Pulse 132 H 11/29/20 11:36 Resp 22 11/29/20 11:36 BP 98/67 11/29/20 11:36 Pulse Ox 94 L 11/29/20 11:36 Intake & Output 11/28/20 11/29/20 11/29/20 18:59 06:59 18:59 Intake Total 880 240 180 Output Total 715 400 300 Balance 165 -160 -120 Weight 139.5 kg Intake: Oral 880 240 180 Output: Urine 715 400 300 Other: Voiding Method Urinal # Voids 1 - Exam GENERAL EXAM: Alert, very pleasant, 74-year-old white male, on 3 L of oxygen pulse ox of 96% comfortable in no apparent distress. HEAD: Normocephalic/atraumatic. EYES: Normal reaction of pupils, equal size. Conjunctiva pink, sclera white. NOSE: Clear with pink turbinates. THROAT: No erythema or exudates. NECK: No masses, no JVD, no thyroid enlargement, no adenopathy. CHEST: No chest wall deformity. Symmetrical expansion. LUNGS: Equal air entry with no crackles, wheeze, rhonchi or dullness. CVS: Irregular rate and rhythm, normal S1 and S2, no gallops, no murmurs, no rubs ABDOMEN: Soft, nontender. No hepatosplenomegaly, normal bowel sounds, no guarding or rigidity. EXTREMITIES: No clubbing, no edema, no cyanosis, 2+ pulses and upper and lower extremities. MUSCULOSKELETAL: Muscle strength and tone normal. SPINE: No scoliosis or deformity SKIN: No rashes CENTRAL NERVOUS SYSTEM: Alert and oriented -3. No focal deficits, tone is normal in all 4 extremities. PSYCHIATRIC: Alert and oriented -3. Appropriate affect. Intact judgment and insight. - Labs CBC & Chem 7: 11/27/20 08:35 11/29/20 07:17 Labs: Abnormal Lab Results - Last 24 Hours (Table) 11/28/20 11/28/20 11/29/20 Range/Units 16:33 20:14 06:06 Chloride (98-107) mmol/L Carbon Dioxide (22-30) mmol/L BUN (9-20) mg/dL Creatinine (0.66-1.25) mg/dL Glucose (74-99) mg/dL POC Glucose (mg/dL) 147 H 188 H 125 H (75-99) mg/dL 11/29/20 11/29/20 Range/Units 07:17 11:41 Chloride 92 L (98-107) mmol/L Carbon Dioxide 39 H (22-30) mmol/L BUN 55 H (9-20) mg/dL Creatinine 1.70 H (0.66-1.25) mg/dL Glucose 117 H (74-99) mg/dL POC Glucose (mg/dL) 112 H (75-99) mg/dL Assessment and Plan Plan: Assessment: #1. Acute on chronic hypoxic/hypercapnic respiratory failure secondary to acute COPD exacerbation, improving #2. A. fib with RVR, currently better controlled, on metoprolol and amiodarone and Eliquis for anticoagulation #3. Chronic obstructive pulmonary disease, oxygen dependent at baseline #4. Chronic and ongoing tobacco dependence #5. Acute on chronic systolic and diastolic CHF #6. Severe pulmonary hypertension with severe tricuspid regurgitation and mildly impaired EF #7. History of obstructive sleep apnea not on home CPAP #8. History of melanoma with resection on his back #9. Hypertension #10. Hyperlipidemia #11. Hearing disorder #12. Acute kidney injury related to diuretics Plan: Continue oral prednisone Continue nebulized bronchodilators Patient's breathing is stable, improving Continue weaning FiO2 to keep O2 sats at or above 88-90% BiPAP support as needed Renal function is worsening, and patient has severe pulmonary hypertension We'll stop the IV Lasix for now Follow-up labs tomorrow From pulmonary perspective he could be considered for discharge home as long as been cleared by cardiology and medicine We'll continue to follow while he is inpatient and monitor his respiratory status I performed a history & physical examination of the patient and discussed their management with my nurse practitioner, Bridget Roy. I reviewed the nurse practitioner's note and agree with the documented findings and plan of care. Lung sounds are positive for diffuse wheezes throughout the lung farah. The findings and the impression was discussed with the patient. I attest to the documentation by the nurse practitioner. Time with Patient: Less than 30
--- NOTE | 2020-11-29 13:06 | P.PN ---
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 melanoma on the back, hearing difficulty , legally blind . he follows up with the [facility] , his cardiologsit is and quarter seamer is , he went to see today for palpiation and not feeling well and found to have a fib and rve , he was referred to the emergency room, no chest pain or dyspnea. no abd pain or diarrhea ,no urinary complaint or fever he smokes 1-2 ceg per day, he drinks once or twice weekly ,no illicit drugs on admission his HR 140-180s, rest of vitals are stable labs reviewed, unremarkable CBC, BMP LFT. TSH is normal at 1.8. troponin is negative at <0.012, proBNP 3310 EKG: atrial fibrillation at 179 CXR: no acute process 11/26/2020 Patient denies chest pain or dyspnea today, however looks like he has some difficulty breathing when talking although he denies any symptoms. He is using his CPAP machine from home at night for his EIGHTH. No coughing. No chest pain. No other complaint. Heart rate still uncontrolled at 138, pressure is on the low side 90/54 after m etoprolol 50 mg added by professor of business. Therefore amiodarone was added also by professor of business 400 mg twice daily. His creatinine and labs are normal. cht x-ray some bilateral pulmonary congestion and small right pleural effusion Heparin drip switch to Eliquis, we need to find the co-pay. He kept on Cardizem drip. A diagram showed ejection fraction of 45-50% with mild LVH, deferred to severe tricuspid regurgitation, es severe pulmonary hypertension 11/27/2020 Patient denies any symptoms currently, sitting at bedside. No chest pain or dyspnea. He uses CPAP machine last night where he had ABG shows CO2 retention. Today he is fully awake and oriented in his breathing quietly. His heart rate this morning was 147, he is already on amiodarone and metoprolol 50 mg which is increased to 75 mg, draped currently improved down to 117. Yesterday his blood pressure dropped to about 86/60s on Cardizem drip, so give him a bolus of 500 mL of normal saline, his Cardizem drip is stopped currently. Today systolic blood pressure is 118. And as stated he is asymptomatic. But he has bilateral leg swelling and decreased air entry on both legs on examination. Patient confirms history of COPD. He denies significant coughing or phlegm. No abdominal or GI complaints. Labs look stable. Cardiogram showed ejection fraction of 45-50% with mild LVH, there to severe tricuspid regurgitation severe pulmonary hypertension Remains on Eliquis 5 mg, Lasix 40 mg IV twice daily, salmeterol 40 mg, metoprolol 75 mg and amiodarone 400 mg 11/28/2020 Patient is still clinically the same, not in respiratory distress while at rest. His total using the BiPAP machine during the night. This morning he was still on bicarb drip and his creatinine went up to 1.6 this morning. Cardiology and pulmonary input is appreciated. Kept on Eliquis 5 mg, Solu-Medrol, we will check cartilage team to switch his Lasix oral scissors creatinine went up. We will keep monitoring 11/29/2020 Patient denies any symptoms, no chest pain or dyspnea. However he was still tachycardic this morning and received 50 mL extra dose of metoprolol prior professor of business He Is using the CPAP machine at night. He has 2+ bilateral leg swelling. His heart rate is around 132, blood pressure 98/67 and breathing rate 22 No significant wheezing but he has distant breath sounds due to his body habitus and obesity. Is not significantly dyspneic. And agree with changing his steroids to prednisone 40 mg. At the Lasix was used, his creatinine went up slightly at 1.7. Pulmonary service already cleared the patient for discharge Cardiology still on the case for uncontrolled heart rate. Patient is currently on Eliquis 5 mg and metoprolol 25 mg twice a day Eliquis is new medication, he is provided with a coupon for the first month free of discharge and he will follow-up with the [place] for further prescription Objective - Vital Signs Vital signs: Vital Signs Temp 97.8 F 11/29/20 11:36 Pulse 132 H 11/29/20 11:36 Resp 22 11/29/20 11:36 BP 98/67 11/29/20 11:36 Pulse Ox 94 L 11/29/20 11:36 Intake & Output 11/28/20 11/29/20 11/29/20 18:59 06:59 18:59 Intake Total 880 240 180 Output Total 715 400 300 Balance 165 -160 -120 Weight 139.5 kg Intake: Oral 880 240 180 Output: Urine 715 400 300 Other: Voiding Method Urinal # Voids 1 - Exam -GENERAL: The patient is alert and oriented x3, not in any acute distress. Morbidly obese HEENT: Pupils are round and equally reacting to light. EOMI. No scleral icterus. No conjunctival pallor. Normocephalic, atraumatic. No pharyngeal erythema. No thyromegaly. CARDIOVASCULAR: S1 and S2 present. No murmurs, rubs, or gallops. -PULMONARY: Chest is clear to auscultation, decreased air entry with the scattered wheezing, present since admission ABDOMEN: Soft, nontender, nondistended, normoactive bowel sounds. No palpable organomegaly. MUSCULOSKELETAL: No joint swelling or deformity. EXTREMITIES: No cyanosis, clubbing, or pedal edema. NEUROLOGICAL: Gross neurological examination did not reveal any focal deficits. SKIN: No rashes. no petechiae. - Labs CBC & Chem 7: 11/27/20 08:35 11/29/20 07:17 Labs: Abnormal Lab Results - Last 24 Hours (Table) 11/28/20 11/28/20 11/29/20 Range/Units 16:33 20:14 06:06 Chloride (98-107) mmol/L Carbon Dioxide (22-30) mmol/L BUN (9-20) mg/dL Creatinine (0.66-1.25) mg/dL Glucose (74-99) mg/dL POC Glucose (mg/dL) 147 H 188 H 125 H (75-99) mg/dL 11/29/20 11/29/20 Range/Units 07:17 11:41 Chloride 92 L (98-107) mmol/L Carbon Dioxide 39 H (22-30) mmol/L BUN 55 H (9-20) mg/dL Creatinine 1.70 H (0.66-1.25) mg/dL Glucose 117 H (74-99) mg/dL POC Glucose (mg/dL) 112 H (75-99) mg/dL Assessment and Plan Assessment: new onset Atrial fibrillation with RVR Acute systolic CHF, ejection fraction 45-50% moderate to severe tricuspid regurgitation Severe pulmonary hypertension Acute COPD exacerbation hyperlipidemia hypertension nicotine dependance osteoarthritis emphysemia and copd on chroinc oxygen use at home (4 L/M) left eye detached retina, 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 Continue same treatment. Continue with symptomatic treatment. Resume home medication. Monitor lytes and vitals. DVT and GI prophylaxis. Further recommendationsas per clinical course of the patient DVT prophylaxis: Eliquis GI Prophylaxis: Pepcid
--- NOTE | 2020-11-29 14:11 | P.PN ---
Subjective Progress Note Date: 11/29/20 This is a pleasant 74-year-old gentleman with a past medical history significant for hypertension, nonobstructive CAD, dyslipidemia, COPD, and obstructive sleep apnea. He follows in the office with Dr. Rodgers. Presented to the hospital with complaints of worsening fatigue, decreased energy and progressively worsening dyspnea on exertion over the past 2-3 weeks. We were asked the patient in consultation for atrial fibrillation with rapid ventricular response. Was initiated on Cardizem drip. He is currently on amiodarone 400 mg by mouth twice a day and metoprolol tartrate 75 mg by mouth twice a day. Cardizem drip continues at 5 mg an hour. Heart rate is currently in the 80s. Cardiogram with Doppler study done this admission showed mildly impaired LV systolic function with an ejection fraction between 45-50%, moderate to severely enlarged RV, mild MR, moderate to severe TR and severe pulmonary hypertension with RVSP of 65.95 mmHg. He is currently being diuresed with IV Lasix 40 mg every 12 hours. Abscess morning show worsening renal function with a BUN of 45 and creatinine of 1.61. On examination he sitting up at the side of the bed. He overall feels a bit better. He feels his breathing is stable over the last 24 hours. He denies any complaints of chest discomfort, dizziness, lightheadedness or palpitations. He denies any orthopnea or PND. He's been using BiPAP at night. Blood pressure is stable. He's been afebrile. 11/29/2020 Patient was seen and examined this afternoon sitting up in a chair. His heart rate remains poorly controlled and he has received 2 doses of extra metoprolol. Continues on amiodarone 400 mg by mouth twice a day. Creatinine is up to 1.7 today and Lasix and placed on hold. Continues to have dyspnea on exertion with drop in oxygen saturation with activity. Pulmonary is following. Objective - Vital Signs Vital signs: Vital Signs Temp 97.8 F 11/29/20 11:36 Pulse 132 H 11/29/20 11:36 Resp 22 11/29/20 11:36 BP 98/67 11/29/20 11:36 Pulse Ox 94 L 11/29/20 11:36 Intake & Output 11/28/20 11/29/20 11/29/20 18:59 06:59 18:59 Intake Total 880 240 180 Output Total 715 400 300 Balance 165 -160 -120 Weight 139.5 kg Intake: Oral 880 240 180 Output: Urine 715 400 300 Other: Voiding Method Urinal # Voids 1 - Exam PHYSICAL EXAMINATION: HEENT: Head is atraumatic, normocephalic. Pupils equal, round. Neck is supple. There is no elevated jugular venous pressure. HEART EXAMINATION: Heart sounds irregular rate and rhythm with tachycardia, S1 and S2 normal. The systolic murmur. CHEST EXAMINATION: Lungs reveal diminished air entry bilaterally. No chest wall tenderness is noted on palpation or with deep breathing. ABDOMEN: Soft, nontender. Bowel sounds are heard. No organomegaly noted. EXTREMITIES: 2+ peripheral pulses with evidence of mild peripheral edema and no calf tenderness noted. NEUROLOGIC patient is awake, alert and oriented x3. . - Labs CBC & Chem 7: 11/27/20 08:35 11/29/20 07:17 Labs: Abnormal Lab Results - Last 24 Hours (Table) 11/28/20 11/28/20 11/29/20 Range/Units 16:33 20:14 06:06 Chloride (98-107) mmol/L Carbon Dioxide (22-30) mmol/L BUN (9-20) mg/dL Creatinine (0.66-1.25) mg/dL Glucose (74-99) mg/dL POC Glucose (mg/dL) 147 H 188 H 125 H (75-99) mg/dL 11/29/20 11/29/20 Range/Units 07:17 11:41 Chloride 92 L (98-107) mmol/L Carbon Dioxide 39 H (22-30) mmol/L BUN 55 H (9-20) mg/dL Creatinine 1.70 H (0.66-1.25) mg/dL Glucose 117 H (74-99) mg/dL POC Glucose (mg/dL) 112 H (75-99) mg/dL Assessment and Plan Assessment: #1 atrial fibrillation with rapid ventricular response, likely persistent, currently anticoagulated with Eliquis, currently on metoprolol tartrate 75 mg by mouth twice a day, amiodarone 400 mg by mouth twice a day. #2 acute congestive heart failure with mildly impaired systolic function ejection fraction 45-50% #3 severe pulmonary hypertension #4 hypertension #5 nonobstructive CAD #6 dyslipidemia #7 COPD #8 obstructive sleep apnea #9 chronic nicotine dependence #10 acute kidney injury, Lasix currently on hold Plan: From cardiology perspective we will increase metoprolol to 75 mg by mouth 3 times a day. We will continue to monitor renal function, electrolytes, daily weights as well as intake and outputs. We will continue to follow the patient provide further recommendations accordingly. TRAINING AND DOCUMENTATION SPECIALIST note has been reviewed, I agree with a documented findings and plan of care. Patient was seen and examined.
[2020-11-29 16:30] LABS: Glucose,Whole Blood 126 mg/dL (75-99)
[2020-11-29 20:00] LABS: Glucose,Whole Blood 267 mg/dL (75-99)
[2020-11-29] MEDS: ALPRAZolam 0.25 MG TAB PO PRN (20:46)
[2020-11-30 06:06] LABS: Glucose,Whole Blood 104 mg/dL (75-99)
[2020-11-30] MEDS: INSULIN ASPART (NovoLOG) 100 UNIT/ML VIAL SQ SCH ×4 (06:07→21:21)
[2020-11-30 07:55] LABS: Calcium 8.7 mg/dL (8.4-10.2)
--- NOTE | 2020-11-30 08:04 | XR ---
EXAMINATION TYPE: XR chest 1V portable DATE OF EXAM: 11/30/2020 COMPARISON: 11/25/2020 HISTORY: 74 years Male. STUDY INDICATION GIVEN: Shortness of breath TECHNIQUE: AP portable chest radiograph FINDINGS AND IMPRESSION: Cardiomegaly, prominent interstitium Curly B-lines suggest pulmonary edema CHF. Bibasilar opacities which have a patchy-like appearance in the right lower lobe: Atelectasis and/or d eveloping pneumonia. Small right pleural effusion slightly increased in size. No left pleural effusion. No pneumothorax. Osteopenic bony structures no acute osseous abnormality. Irregular appearance to the anterior aspect of the left seventh rib could be related to remote trauma.
[2020-11-30] MEDS: VIT A,C & E-LUTEIN-MINERALS 1 EACH TAB PO SCH (09:33)
[2020-11-30] MEDS: METOPROLOL TARTRATE 25 MG TAB PO SCH ×3 (09:33→21:20)
[2020-11-30] MEDS: ARTIFICIAL TEARS-HYPROMELLOSE DROPS 15 ML BTL BOTH EYES SCH ×4 (09:33→21:22)
[2020-11-30] MEDS: predniSONE 20 MG TAB PO SCH (09:33)
[2020-11-30] MEDS: GABAPENTIN 400 MG CAP PO SCH ×2 (09:33→21:21)
[2020-11-30] MEDS: APIXABAN 5 MG TAB PO SCH ×2 (09:33→21:21)
[2020-11-30] MEDS: ESCITALOPRAM 10 MG TAB PO SCH (09:33)
[2020-11-30] MEDS: AMIODARONE 200 MG TAB PO SCH ×2 (09:33→21:20)
[2020-11-30 11:43] LABS: Glucose,Whole Blood 109 mg/dL (75-99)
--- NOTE | 2020-11-30 12:11 | P.PN ---
Subjective Progress Note Date: 11/30/20 Principal diagnosis: New-onset A. fib, shortness of breath This is a very pleasant 74-year-old gentleman who follows at the [facility] clinic for his primary care needs. He has a history of hearing disorder, hyperlipidemia, hypertension, osteoarthritis, kidney cancer in 2006, macular degeneration, melanoma removed from his back daily alcohol use, history of marijuana use. He also has chronic and ongoing tobacco dependence and oxygen dependent chronic obstructive pulmonary disease and had previously followed with a senior living sales counselor that he was not liking and is scheduled to see Dr. Ware in our office next month. He has only been on a Ventolin rescue inhaler. However on 11/25/2020 he had been seen by his group therapist Dr. Kramer and found to be in new onset atrial fibrillation with a rapid ventricular response. The patient was having issues with dizziness, lightheadedness and shortness of breath and was referred here to the emergency room for the same. Chest x-ray revealed some pulmonary edema and mild bibasilar airspace disease. Arterial blood gases revealed a pO2 of 246, pCO2 83, pH 7.29 on 100% FiO2. He was placed on BiPAP support of 14/7 and 40% FiO2. He is seen today in consultation on the selective care unit. He sitting up at the bedside. Awake, alert and oriented 3. Maintaining O2 saturation in the 90s on 4 L/m per nasal cannula currently. No worsening shortness of breath, cough or congestion. He does remain in atrial fibrillation. He remains on IV diuretics, IV Solu-Medrol, bronchodilators. He's anticoagulated with Eliquis. White count 9.5. Hemoglobin 12.3. Sodium 141. Potassium 4.6. Creatinine 1.17. On 11/28/2020 patient seen in follow-up on selective care unit, he is currently on 3 L of oxygen pulse ox is 96%, he did wear BiPAP overnight, remains in A. fib with a rate of 103 bpm, plantar chest pain, he remains on lasix at 40 mg every 12 hours, net fluid balance is difficult to estimate, she still appears to be in positive fluid balance. Remains on Lasix 40 mg every 12 hours. Today's labs have been reviewed, his sodium is 137, potassium is 4.8, chloride is 91, CO2 is 38, B1 is 45, creatinine is 1.61. Overall he is breathing comfortably, he sitting up on the edge of the bed, his is at the bedside. No hemoptysis, no wheezing or phlegm production. His chest x-ray showed no acute process. Patient was started on Eliquis and oral Cordarone by cardiology. She remains on IV Lasix currently at 40 mg every 8 hours. His echocardiogram showed mildly impaired LV function with EF of 45-50%, no evidence of aortic regurgitation, no evidence of aortic stenosis, moderate to severe tricuspid regurgitation, severe pulmonary hypertension with right-sided pressure of 65.9 mmHg. On the 2020 patient seen in follow-up on selective care unit, he is sitting up in the recliner, breathing comfortably, he is currently just on 2 L of oxygen pulse ox is 95%. Awake and alert, oriented 3, no altered mentation, he did wear BiPAP last night with FiO2 of 40%. Has had no acute events overnight, he remains in atrial fibrillation, with a rate of 109 BPM. No worsening cough or congestion. No new chest x-ray, we'll cut back his Lasix yesterday to once daily in view of his worsening renal function, he has remained on Lasix 40 mg once daily today's labs have been reviewed showing teen worsening of renal function, and his creatinine is up to 1.7, and BUN is 55 with CO2 of 39. He continues on oral prednisone and breathing treatments, no significant wheezing, chest tightness, no significant phlegm production. On the 11/30/2020 patient seen in follow-up on selective care unit. Wore BiPAP support last night, he is breathing comfortably, has had no acute events overnight, he is currently on 2 L of oxygen his pulse ox is 95%, had no fever or chills, he remains in atrial fibrillation, with a rate of 89-107 BPM. He is breathing comfortably, we stopped his diuretics yesterday, his weight is relatively stable, he is voiding, creatinine is up to 1.85 on today's labs, BUN is 67, CO2 is 40. His chest x-ray today shows cardiomegaly, prominent interstitium, pulmonary edema or CHF. Objective - Vital Signs Vital signs: Vital Signs Temp 98.8 F 11/30/20 08:50 Pulse 105 H 11/30/20 08:50 Resp 20 11/30/20 08:50 BP 116/58 11/30/20 08:50 Pulse Ox 83 L 11/30/20 11:34 Intake & Output 11/29/20 11/30/20 11/30/20 18:59 06:59 18:59 Intake Total 950 240 180 Output Total 600 675 Balance 350 -435 180 Weight 139.6 kg Intake: Oral 950 240 180 Output: Urine 600 675 Other: Voiding Method Urinal - Exam GENERAL EXAM: Alert, very pleasant, 74-year-old white male, on 3 L of oxygen pulse ox of 96% comfortable in no apparent distress. HEAD: Normocephalic/atraumatic. EYES: Normal reaction of pupils, equal size. Conjunctiva pink, sclera white. NOSE: Clear with pink turbinates. THROAT: No erythema or exudates. NECK: No masses, no JVD, no thyroid enlargement, no adenopathy. CHEST: No chest wall deformity. Symmetrical expansion. LUNGS: Equal air entry with no crackles, wheeze, rhonchi or dullness. CVS: Irregular rate and rhythm, normal S1 and S2, no gallops, no murmurs, no rubs ABDOMEN: Soft, nontender. No hepatosplenomegaly, normal bowel sounds, no guarding or rigidity. EXTREMITIES: No clubbing, no edema, no cyanosis, 2+ pulses and upper and lower extremities. MUSCULOSKELETAL: Muscle strength and tone normal. SPINE: No scoliosis or deformity SKIN: No rashes CENTRAL NERVOUS SYSTEM: Alert and oriented -3. No focal deficits, tone is normal in all 4 extremities. PSYCHIATRIC: Alert and oriented -3. Appropriate affect. Intact judgment and insight. - Labs CBC & Chem 7: 11/27/20 08:35 11/30/20 06:54 Labs: Abnormal Lab Results - Last 24 Hours (Table) 11/29/20 11/29/20 11/30/20 Range/Units 16:29 19:58 06:05 Chloride (98-107) mmol/L Carbon Dioxide (22-30) mmol/L BUN (9-20) mg/dL Creatinine (0.66-1.25) mg/dL POC Glucose (mg/dL) 126 H 267 H 104 H (75-99) mg/dL 11/30/20 11/30/20 Range/Units 06:54 11:42 Chloride 94 L (98-107) mmol/L Carbon Dioxide 40 H (22-30) mmol/L BUN 62 H (9-20) mg/dL Creatinine 1.85 H (0.66-1.25) mg/dL POC Glucose (mg/dL) 109 H (75-99) mg/dL Assessment and Plan Plan: Assessment: #1. Acute on chronic hypoxic/hypercapnic respiratory failure secondary to acute COPD exacerbation, improving #2. A. fib with RVR, currently better controlled, on metoprolol and amiodarone and Eliquis for anticoagulation #3. Chronic obstructive pulmonary disease, oxygen dependent at baseline #4. Chronic and ongoing tobacco dependence #5. Acute on chronic systolic and diastolic CHF #6. Severe pulmonary hypertension with severe tricuspid regurgitation and mildly impaired EF #7. History of obstructive sleep apnea not on home CPAP #8. History of melanoma with resection on his back #9. Hypertension #10. Hyperlipidemia #11. Hearing disorder #12. Acute kidney injury related to diuretics Plan: Patient's breathing is stable, improving Continue weaning FiO2 to keep O2 sats at or above 88-90% BiPAP support as needed Renal function is worsening, diuretics remain on hold Today's chest x-ray has been noted No worsening dyspnea Continue oral prednisone I performed a history & physical examination of the patient and discussed their management with my nurse practitioner, Bridget Roy. I reviewed the nurse practitioner's note and agree with the documented findings and plan of care. Lung sounds are positive for diffuse wheezes throughout the lung farah. The findings and the impression was discussed with the patient. I attest to the documentation by the nurse practitioner. Time with Patient: Less than 30
--- NOTE | 2020-11-30 16:01 | P.PN ---
Subjective Progress Note Date: 11/30/20 This is a pleasant 74-year-old gentleman with a past medical history significant for hypertension, nonobstructive CAD, dyslipidemia, COPD, and obstructive sleep apnea. He follows in the office with Dr. Rodgers. Presented to the hospital with complaints of worsening fatigue, decreased energy and progressively worsening dyspnea on exertion over the past 2-3 weeks. We were asked the patient in consultation for atrial fibrillation with rapid ventricular response. Was initiated on Cardizem drip. He is currently on amiodarone 400 mg by mouth twice a day and metoprolol tartrate 75 mg by mouth twice a day. Cardizem drip continues at 5 mg an hour. Heart rate is currently in the 80s. Cardiogram with Doppler study done this admission showed mildly impaired LV systolic function with an ejection fraction between 45-50%, moderate to severely enlarged RV, mild MR, moderate to severe TR and severe pulmonary hypertension with RVSP of 65.95 mmHg. He is currently being diuresed with IV Lasix 40 mg every 12 hours. Abscess morning show worsening renal function with a BUN of 45 and creatinine of 1.61. On examination he sitting up at the side of the bed. He overall feels a bit better. He feels his breathing is stable over the last 24 hours. He denies any complaints of chest discomfort, dizziness, lightheadedness or palpitations. He denies any orthopnea or PND. He's been using BiPAP at night. Blood pressure is stable. He's been afebrile. 11/29/2020 Patient was seen and examined this afternoon sitting up in a chair. His heart rate remains poorly controlled and he has received 2 doses of extra metoprolol. Continues on amiodarone 400 mg by mouth twice a day. Creatinine is up to 1.7 today and Lasix and placed on hold. Continues to have dyspnea on exertion with drop in oxygen saturation with activity. Pulmonary is following. 11/30/2020 Patient was seen and examined this afternoon sitting up at the side of the bed. Heart rate is better controlled running in the 90s to low 100s. He continues on amiodarone 400 mg by mouth twice a day and metoprolol tartrate 75 mg by mouth 3 times a day and lisinopril 2.5 mg by mouth daily.. Overall he feels a bit better today. He feels his breathing is improved some. Lasix remains on hold creatinine is up to 1.85. Objective - Vital Signs Vital signs: Vital Signs Temp 98.3 F 11/30/20 12:00 Pulse 96 11/30/20 12:00 Resp 22 11/30/20 12:00 BP 91/59 11/30/20 12:00 Pulse Ox 94 L 11/30/20 12:00 Intake & Output 11/29/20 11/30/20 11/30/20 18:59 06:59 18:59 Intake Total 950 240 180 Output Total 600 675 300 Balance 350 -435 -120 Weight 139.6 kg Intake: Oral 950 240 180 Output: Urine 600 675 300 Stool 0 Other: Voiding Method Urinal # Voids 1 # Bowel Movements 0 - Exam PHYSICAL EXAMINATION: HEENT: Head is atraumatic, normocephalic. Pupils equal, round. Neck is supple. There is no elevated jugular venous pressure. HEART EXAMINATION: Heart sounds irregular rate and rhythm, S1 and S2 normal. With a systolic murmur. CHEST EXAMINATION: Lungs reveal diminished air entry bilaterally. No chest wall tenderness is noted on palpation or with deep breathing. ABDOMEN: Soft, nontender. Bowel sounds are heard. No organomegaly noted. EXTREMITIES: 2+ peripheral pulses with evidence of mild peripheral edema and no calf tenderness noted. NEUROLOGIC patient is awake, alert and oriented x3. . - Labs CBC & Chem 7: 11/27/20 08:35 11/30/20 06:54 Labs: Abnormal Lab Results - Last 24 Hours (Table) 11/29/20 11/29/20 11/30/20 Range/Units 16:29 19:58 06:05 Chloride (98-107) mmol/L Carbon Dioxide (22-30) mmol/L BUN (9-20) mg/dL Creatinine (0.66-1.25) mg/dL POC Glucose (mg/dL) 126 H 267 H 104 H (75-99) mg/dL 11/30/20 11/30/20 Range/Units 06:54 11:42 Chloride 94 L (98-107) mmol/L Carbon Dioxide 40 H (22-30) mmol/L BUN 62 H (9-20) mg/dL Creatinine 1.85 H (0.66-1.25) mg/dL POC Glucose (mg/dL) 109 H (75-99) mg/dL Assessment and Plan Assessment: #1 atrial fibrillation with rapid ventricular response, likely persistent, currently anticoagulated with Eliquis, currently on metoprolol tartrate 75 mg by mouth 3 times a day, amiodarone 400 mg by mouth twice a day, heart rate is better controlled today #2 acute congestive heart failure with mildly impaired systolic function ejection fraction 45-50% #3 severe pulmonary hypertension #4 hypertension currently with hypotension #5 nonobstructive CAD #6 dyslipidemia #7 COPD #8 obstructive sleep apnea #9 chronic nicotine dependence #10 acute kidney injury, Lasix currently on hold Plan: From cardiology perspective we will stop lisinopril for now. We will continue to monitor renal function, electrolytes, daily weights as well as intake and outputs. We will continue to follow the patient provide further recommendations accordingly. COLOR SPECIALIST note has been reviewed, I agree with a documented findings and plan of care. Patient was seen and examined.
[2020-11-30 16:37] LABS: Glucose,Whole Blood 157 mg/dL (75-99)
[2020-11-30 19:48] LABS: Glucose,Whole Blood 213 mg/dL (75-99)
[2020-11-30] MEDS: ALPRAZolam 0.25 MG TAB PO PRN (21:20)
[2020-12-01] MEDS: INSULIN ASPART (NovoLOG) 100 UNIT/ML VIAL SQ SCH ×2 (06:01→13:04)
[2020-12-01 06:02] LABS: Glucose,Whole Blood 98 mg/dL (75-99)
--- NOTE | 2020-12-01 06:59 | P.PN ---
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 melanoma on the back, hearing difficulty , legally blind . he follows up with the [facility] , his cardiologsit is and iap displays analyst is , he went to see today for palpiation and not feeling well and found to have a fib and rve , he was referred to the emergency room, no chest pain or dyspnea. no abd pain or diarrhea ,no urinary complaint or fever he smokes 1-2 ceg per day, he drinks once or twice weekly ,no illicit drugs on admission his HR 140-180s, rest of vitals are stable labs reviewed, unremarkable CBC, BMP LFT. TSH is normal at 1.8. troponin is negative at <0.012, proBNP 3310 EKG: atrial fibrillation at 179 CXR: no acute process 11/26/2020 Patient denies chest pain or dyspnea today, however looks like he has some difficulty breathing when talking although he denies any symptoms. He is using his CPAP machine from home at night for his EIGHTH. No coughing. No chest pain. No other complaint. Heart rate still uncontrolled at 138, pressure is on the low side 90/54 after m etoprolol 50 mg added by plater apprentice. Therefore amiodarone was added also by plater apprentice 400 mg twice daily. His creatinine and labs are normal. cht x-ray some bilateral pulmonary congestion and small right pleural effusion Heparin drip switch to Eliquis, we need to find the co-pay. He kept on Cardizem drip. A diagram showed ejection fraction of 45-50% with mild LVH, deferred to severe tricuspid regurgitation, es severe pulmonary hypertension 11/27/2020 Patient denies any symptoms currently, sitting at bedside. No chest pain or dyspnea. He uses CPAP machine last night where he had ABG shows CO2 retention. Today he is fully awake and oriented in his breathing quietly. His heart rate this morning was 147, he is already on amiodarone and metoprolol 50 mg which is increased to 75 mg, draped currently improved down to 117. Yesterday his blood pressure dropped to about 86/60s on Cardizem drip, so give him a bolus of 500 mL of normal saline, his Cardizem drip is stopped currently. Today systolic blood pressure is 118. And as stated he is asymptomatic. But he has bilateral leg swelling and decreased air entry on both legs on examination. Patient confirms history of COPD. He denies significant coughing or phlegm. No abdominal or GI complaints. Labs look stable. Cardiogram showed ejection fraction of 45-50% with mild LVH, there to severe tricuspid regurgitation severe pulmonary hypertension Remains on Eliquis 5 mg, Lasix 40 mg IV twice daily, salmeterol 40 mg, metoprolol 75 mg and amiodarone 400 mg 11/28/2020 Patient is still clinically the same, not in respiratory distress while at rest. His total using the BiPAP machine during the night. This morning he was still on bicarb drip and his creatinine went up to 1.6 this morning. Cardiology and pulmonary input is appreciated. Kept on Eliquis 5 mg, Solu-Medrol, we will check cartilage team to switch his Lasix oral scissors creatinine went up. We will keep monitoring 11/29/2020 Patient denies any symptoms, no chest pain or dyspnea. However he was still tachycardic this morning and received 50 mL extra dose of metoprolol prior plater apprentice He Is using the CPAP machine at night. He has 2+ bilateral leg swelling. His heart rate is around 132, blood pressure 98/67 and breathing rate 22 No significant wheezing but he has distant breath sounds due to his body habitus and obesity. Is not significantly dyspneic. And agree with changing his steroids to prednisone 40 mg. At the Lasix was used, his creatinine went up slightly at 1.7. Pulmonary service already cleared the patient for discharge Cardiology still on the case for uncontrolled heart rate. Patient is currently on Eliquis 5 mg and metoprolol 25 mg twice a day Eliquis is new medication, he is provided with a coupon for the first month free of discharge and he will follow-up with the [facility] for further prescription patient seen and examined by me on 11/30/2020 History of asymptomatic with no chest pain or dyspnea. Hemodynamically stable Heart rate still go above 100 at times but is better controlled on metoprolol 25 mg 3 times a day Patient is currently on Eliquis and on for one was opened provided and [facility], patient informed and he agreed Gore Maker: The case Objective - Vital Signs Vital signs: Vital Signs Temp 97.7 F 12/01/20 04:00 Pulse 71 12/01/20 04:00 Resp 19 12/01/20 04:00 BP 120/75 12/01/20 00:00 Pulse Ox 98 12/01/20 04:00 Intake & Output 11/30/20 11/30/20 12/01/20 06:59 18:59 06:59 Intake Total 240 180 240 Output Total 675 600 645 Balance -435 420 -405 Weight 139.6 kg 139.3 kg Intake: Oral 240 180 240 Output: Urine 675 600 645 Stool 0 Other: Voiding Method Urinal Urinal # Voids 1 1 # Bowel Movements 0 - Exam -GENERAL: The patient is alert and oriented x3, not in any acute distress. Morbidly obese HEENT: Pupils are round and equally reacting to light. EOMI. No scleral icterus. No conjunctival pallor. Normocephalic, atraumatic. No pharyngeal erythema. No thyromegaly. CARDIOVASCULAR: S1 and S2 present. No murmurs, rubs, or gallops. -PULMONARY: Chest is clear to auscultation, decreased air entry with the scattered wheezing, present since admission ABDOMEN: Soft, nontender, nondistended, normoactive bowel sounds. No palpable organomegaly. MUSCULOSKELETAL: No joint swelling or deformity. EXTREMITIES: No cyanosis, clubbing, or pedal edema. NEUROLOGICAL: Gross neurological examination did not reveal any focal deficits. SKIN: No rashes. no petechiae. - Labs CBC & Chem 7: 11/27/20 08:35 11/30/20 06:54 Labs: Abnormal Lab Results - Last 24 Hours (Table) 11/30/20 11/30/20 11/30/20 Range/Units 06:54 11:42 16:36 Chloride 94 L (98-107) mmol/L Carbon Dioxide 40 H (22-30) mmol/L BUN 62 H (9-20) mg/dL Creatinine 1.85 H (0.66-1.25) mg/dL POC Glucose (mg/dL) 109 H 157 H (75-99) mg/dL 11/30/20 Range/Units 19:45 Chloride (98-107) mmol/L Carbon Dioxide (22-30) mmol/L BUN (9-20) mg/dL Creatinine (0.66-1.25) mg/dL POC Glucose (mg/dL) 213 H (75-99) mg/dL Assessment and Plan Assessment: new onset Atrial fibrillation with RVR Acute systolic CHF, ejection fraction 45-50% moderate to severe tricuspid regurgitation Severe pulmonary hypertension Acute COPD exacerbation hyperlipidemia hypertension nicotine dependance osteoarthritis emphysemia and copd on chroinc oxygen use at home (4 L/M) left eye detached retina, 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 Continue same treatment. Continue with symptomatic treatment. Resume home medication. Monitor lytes and vitals. DVT and GI prophylaxis. Further recommendationsas per clinical course of the patient DVT prophylaxis: Eliquis GI Prophylaxis: Pepcid
[2020-12-01 09:04] VITALS: TEMP 98.3
[2020-12-01] MEDS: VIT A,C & E-LUTEIN-MINERALS 1 EACH TAB PO SCH (09:05)
[2020-12-01] MEDS: METOPROLOL TARTRATE 25 MG TAB PO SCH ×2 (09:05→15:14)
[2020-12-01] MEDS: APIXABAN 5 MG TAB PO SCH (09:05)
[2020-12-01] MEDS: GABAPENTIN 400 MG CAP PO SCH (09:06)
[2020-12-01] MEDS: AMIODARONE 200 MG TAB PO SCH (09:06)
[2020-12-01] MEDS: ESCITALOPRAM 10 MG TAB PO SCH (09:06)
[2020-12-01] MEDS: predniSONE 20 MG TAB PO SCH (09:06)
[2020-12-01] MEDS: ARTIFICIAL TEARS-HYPROMELLOSE DROPS 15 ML BTL BOTH EYES SCH ×2 (09:06→14:33)
[2020-12-01 11:40] LABS: Glucose,Whole Blood 127 mg/dL (75-99)
[2020-12-01 11:49] LABS: Calcium 9.4 mg/dL (8.4-10.2); Potassium 4.7 mmol/L (3.5-5.1)
--- NOTE | 2020-12-01 12:26 | P.PN ---
Subjective This is a pleasant 74-year-old gentleman with a past medical history significant for hypertension, nonobstructive CAD, dyslipidemia, COPD, and obstructive sleep apnea. He follows in the office with Dr. Rodgers. Presented to the hospital with complaints of worsening fatigue, decreased energy and progressively worsening dyspnea on exertion over the past 2-3 weeks. We were asked the patient in consultation for atrial fibrillation with rapid ventricular response. Was initiated on Cardizem drip. He is currently on amiodarone 400 mg by mouth twice a day and metoprolol tartrate 75 mg by mouth twice a day. Cardizem drip continues at 5 mg an hour. Heart rate is currently in the 80s. Cardiogram with Doppler study done this admission showed mildly impaired LV systolic function with an ejection fraction between 45-50%, moderate to severely enlarged RV, mild MR, moderate to severe TR and severe pulmonary hypertension with RVSP of 65.95 mmHg. He is currently being diuresed with IV Lasix 40 mg every 12 hours. Abscess morning show worsening renal function with a BUN of 45 and creatinine of 1.61. On examination he sitting up at the side of the bed. He overall feels a bit better. He feels his breathing is stable over the last 24 hours. He denies any complaints of chest discomfort, dizziness, lightheadedness or palpitations. He denies any orthopnea or PND. He's been using BiPAP at night. Blood pressure is stable. He's been afebrile. 12/01/2020 Patient seen and examined sitting up in chair in no acute distress. He continues to have mild shortness of breath. He denies chest pain, dizziness or palpitations. Telemetry tracings reviewed, heart rates between 90 and 110. Blood pressure 109/66. Laboratory data reviewed, sodium 140, potassium 4.7 and creatinine 1.28. GENERAL: Well-appearing, well-nourished and in no acute distress. NECK: Supple without JVD or thyromegaly. LUNGS: Breath sounds clear to auscultation bilaterally. Respiration equal and unlabored. No wheezes, rales or rhonchi. HEART: Irregular rate and rhythm with systolic ejection murmur at the base, no rubs or gallops. S1 and S2 heard. EXTREMITIES: Normal range of motion, trace bilateral lower extremity edema. No clubbing or cyanosis. Peripheral pulses intact. ASSESSMENT Chronic persistent atrial fibrillation with rapid ventricular rate Acute on chronic systolic heart failure Severe pulmonary hypertension Nonobstructive coronary artery disease Acute kidney injury Dyslipidemia COPD Chronic nicotine dependence PLAN Decrease amiodarone to 200 mg twice a day for 2 weeks and then 200 mg daily thereafter. Clinically stable from a cardiac prospective, follow up with Dr. Rodgers upon discharge. Nurse Practitioner note has been reviewed, I agree with a documented findings and plan of care. Patient was seen and examined. Objective - Vital Signs Vital signs: Vital Signs Temp 98.3 F 12/01/20 09:01 Pulse 94 12/01/20 09:01 Resp 16 12/01/20 09:01 BP 109/66 12/01/20 09:01 Pulse Ox 91 L 12/01/20 09:01 Intake & Output 11/30/20 12/01/20 12/01/20 18:59 06:59 18:59 Intake Total 180 240 960 Output Total 600 645 Balance -420 -405 960 Weight 139.3 kg Intake: Oral 180 240 960 Output: Urine 600 645 Stool 0 Other: Voiding Method Urinal Urinal # Voids 1 1 # Bowel Movements 0 - Labs CBC & Chem 7: 11/27/20 08:35 12/01/20 10:56 Labs: Abnormal Lab Results - Last 24 Hours (Table) 11/30/20 11/30/20 12/01/20 Range/Units 16:36 19:45 10:56 Chloride 97 L (98-107) mmol/L Carbon Dioxide 38 H (22-30) mmol/L BUN 51 H (9-20) mg/dL Creatinine 1.28 H (0.66-1.25) mg/dL Glucose 128 H (74-99) mg/dL POC Glucose (mg/dL) 157 H 213 H (75-99) mg/dL 12/01/20 Range/Units 11:35 Chloride (98-107) mmol/L Carbon Dioxide (22-30) mmol/L BUN (9-20) mg/dL Creatinine (0.66-1.25) mg/dL Glucose (74-99) mg/dL POC Glucose (mg/dL) 127 H (75-99) mg/dL
--- NOTE | 2020-12-01 13:03 | P.PN ---
Subjective Progress Note Date: 12/01/20 Principal diagnosis: New-onset A. fib, shortness of breath This is a very pleasant 74-year-old gentleman who follows at the [facility] clinic for his primary care needs. He has a history of hearing disorder, hyperlipidemia, hypertension, osteoarthritis, kidney cancer in 2006, macular degeneration, melanoma removed from his back daily alcohol use, history of marijuana use. He also has chronic and ongoing tobacco dependence and oxygen dependent chronic obstructive pulmonary disease and had previously followed with a service center appraiser that he was not liking and is scheduled to see Dr. Ware in our office next month. He has only been on a Ventolin rescue inhaler. However on 11/25/2020 he had been seen by his garment tag stringer Dr. Kramer and found to be in new onset atrial fibrillation with a rapid ventricular response. The patient was having issues with dizziness, lightheadedness and shortness of breath and was referred here to the emergency room for the same. Chest x-ray revealed some pulmonary edema and mild bibasilar airspace disease. Arterial blood gases revealed a pO2 of 246, pCO2 83, pH 7.29 on 100% FiO2. He was placed on BiPAP support of 14/7 and 40% FiO2. He is seen today in consultation on the selective care unit. He sitting up at the bedside. Awake, alert and oriented 3. Maintaining O2 saturation in the 90s on 4 L/m per nasal cannula currently. No worsening shortness of breath, cough or congestion. He does remain in atrial fibrillation. He remains on IV diuretics, IV Solu-Medrol, bronchodilators. He's anticoagulated with Eliquis. White count 9.5. Hemoglobin 12.3. Sodium 141. Potassium 4.6. Creatinine 1.17. On 11/28/2020 patient seen in follow-up on selective care unit, he is currently on 3 L of oxygen pulse ox is 96%, he did wear BiPAP overnight, remains in A. fib with a rate of 103 bpm, plantar chest pain, he remains on lasix at 40 mg every 12 hours, net fluid balance is difficult to estimate, she still appears to be in positive fluid balance. Remains on Lasix 40 mg every 12 hours. Today's labs have been reviewed, his sodium is 137, potassium is 4.8, chloride is 91, CO2 is 38, B1 is 45, creatinine is 1.61. Overall he is breathing comfortably, he sitting up on the edge of the bed, his is at the bedside. No hemoptysis, no wheezing or phlegm production. His chest x-ray showed no acute process. Patient was started on Eliquis and oral Cordarone by cardiology. She remains on IV Lasix currently at 40 mg every 8 hours. His echocardiogram showed mildly impaired LV function with EF of 45-50%, no evidence of aortic regurgitation, no evidence of aortic stenosis, moderate to severe tricuspid regurgitation, severe pulmonary hypertension with right-sided pressure of 65.9 mmHg. On the 2020 patient seen in follow-up on selective care unit, he is sitting up in the recliner, breathing comfortably, he is currently just on 2 L of oxygen pulse ox is 95%. Awake and alert, oriented 3, no altered mentation, he did wear BiPAP last night with FiO2 of 40%. Has had no acute events overnight, he remains in atrial fibrillation, with a rate of 109 BPM. No worsening cough or congestion. No new chest x-ray, we'll cut back his Lasix yesterday to once daily in view of his worsening renal function, he has remained on Lasix 40 mg once daily today's labs have been reviewed showing teen worsening of renal function, and his creatinine is up to 1.7, and BUN is 55 with CO2 of 39. He continues on oral prednisone and breathing treatments, no significant wheezing, chest tightness, no significant phlegm production. On the 11/30/2020 patient seen in follow-up on selective care unit. Wore BiPAP support last night, he is breathing comfortably, has had no acute events overnight, he is currently on 2 L of oxygen his pulse ox is 95%, had no fever or chills, he remains in atrial fibrillation, with a rate of 89-107 BPM. He is breathing comfortably, we stopped his diuretics yesterday, his weight is relatively stable, he is voiding, creatinine is up to 1.85 on today's labs, BUN is 67, CO2 is 40. His chest x-ray today shows cardiomegaly, prominent interstitium, pulmonary edema or CHF. On 12/01/2020 patient seen in follow-up on selective care unit. She is sitting up in the chair, breathing comfortably, he did wear BiPAP last night at pressures of 14/7 and FiO2 of 40%, he is currently on 2 L of oxygen pulse ox is 91%, his Lasix remains on hold, today's labs show improving renal function, with BUN of 51 and creatinine down to 1.28. Potassium is 4.7, sodium is 140. Patient is currently on Cordarone 200 mg twice a day, and Eliquis for anticoagulation, we transitioned him to oral prednisone. Worsening dyspnea, no wheezing no chest discomfort. Heart rate is controlled. Objective - Vital Signs Vital signs: Vital Signs Temp 98.3 F 12/01/20 09:01 Pulse 94 12/01/20 09:01 Resp 16 12/01/20 09:01 BP 109/66 12/01/20 09:01 Pulse Ox 91 L 12/01/20 09:01 Intake & Output 11/30/20 12/01/20 12/01/20 18:59 06:59 18:59 Intake Total 180 240 960 Output Total 600 645 Balance -420 -405 960 Weight 139.3 kg Intake: Oral 180 240 960 Output: Urine 600 645 Stool 0 Other: Voiding Method Urinal Urinal # Voids 1 1 # Bowel Movements 0 - Exam GENERAL EXAM: Alert, very pleasant, 74-year-old white male, on 2 L of oxygen pulse ox of 91% comfortable in no apparent distress. HEAD: Normocephalic/atraumatic. EYES: Normal reaction of pupils, equal size. Conjunctiva pink, sclera white. NOSE: Clear with pink turbinates. THROAT: No erythema or exudates. NECK: No masses, no JVD, no thyroid enlargement, no adenopathy. CHEST: No chest wall deformity. Symmetrical expansion. LUNGS: Equal air entry with no crackles, wheeze, rhonchi or dullness. CVS: Irregular rate and rhythm, normal S1 and S2, no gallops, no murmurs, no rubs ABDOMEN: Soft, nontender. No hepatosplenomegaly, normal bowel sounds, no guarding or rigidity. EXTREMITIES: No clubbing, no edema, no cyanosis, 2+ pulses and upper and lower extremities. MUSCULOSKELETAL: Muscle strength and tone normal. SPINE: No scoliosis or deformity SKIN: No rashes CENTRAL NERVOUS SYSTEM: Alert and oriented -3. No focal deficits, tone is normal in all 4 extremities. PSYCHIATRIC: Alert and oriented -3. Appropriate affect. Intact judgment and insight. - Labs CBC & Chem 7: 11/27/20 08:35 12/01/20 10:56 Labs: Abnormal Lab Results - Last 24 Hours (Table) 11/30/20 11/30/20 12/01/20 Range/Units 16:36 19:45 10:56 Chloride 97 L (98-107) mmol/L Carbon Dioxide 38 H (22-30) mmol/L BUN 51 H (9-20) mg/dL Creatinine 1.28 H (0.66-1.25) mg/dL Glucose 128 H (74-99) mg/dL POC Glucose (mg/dL) 157 H 213 H (75-99) mg/dL 12/01/20 Range/Units 11:35 Chloride (98-107) mmol/L Carbon Dioxide (22-30) mmol/L BUN (9-20) mg/dL Creatinine (0.66-1.25) mg/dL Glucose (74-99) mg/dL POC Glucose (mg/dL) 127 H (75-99) mg/dL Assessment and Plan Plan: Assessment: #1. Acute on chronic hypoxic/hypercapnic respiratory failure secondary to acute COPD exacerbation, improving #2. A. fib with RVR, currently better controlled, on metoprolol and amiodarone and Eliquis for anticoagulation #3. Chronic obstructive pulmonary disease, oxygen dependent at baseline #4. Chronic and ongoing tobacco dependence #5. Acute on chronic systolic and diastolic CHF #6. Severe pulmonary hypertension with severe tricuspid regurgitation and mildly impaired EF #7. History of obstructive sleep apnea not on home CPAP #8. History of melanoma with resection on his back #9. Hypertension #10. Hyperlipidemia #11. Hearing disorder #12. Acute kidney injury related to diuretics, improving, diuretics remain on hold Plan: Patient has remained stable Breathing is improving Continue weaning FiO2 Currently down to 2 L, obtain home oxygen assessment Patient is clear for discharge home from pulmonary perspective he will need outpatient sleep study He can finish prednisone taper, and resume generalized bronchodilators Outpatient follow-up with Dr. Ware in the office, will need a sleep study set up when he sees Dr. Ware I performed a history & physical examination of the patient and discussed their management with my nurse practitioner, Bridget Roy. I reviewed the nurse practitioner's note and agree with the documented findings and plan of care. Lung sounds are positive for diffuse wheezes throughout the lung farah. The findings and the impression was discussed with the patient. I attest to the documentation by the nurse practitioner. Time with Patient: Less than 30
[2020-12-01 13:06] VITALS: RESP 18
[2020-12-01] MEDS ORDERED: FUROSEMIDE 10 MG/ML 2 ML VIAL IV ONE (14:19)
[2020-12-01 15:14] VITALS: BP 113/80; PULSE 97
[2020-12-01] MEDS ORDERED: AMIODARONE 200 MG TAB PO SCH (21:00)
--- NOTE | 2020-12-01 23:21 | P.DS ---
Providers Date of admission: 11/25/20 13:57 Attending physician: Issa Olivera MD Consults: 11/25/20 13:57 Consult Physician Routine Consulting Provider: Manfred Rodgers Consult Reason/Comments: New-onset A. fib Do you want consulting provider notified?: Already Contacted 11/26/20 14:43 Consult Physician Urgent Consulting Provider: Chacho James Consult Reason/Comments: hypoxia Do you want consulting provider notified?: Already Contacted 11/30/20 09:01 Consult Physician Routine Consulting Provider: Zeke Mcgrath Consult Reason/Comments: UTI, urinary retention Do you want consulting provider notified?: Yes Primary care physician: [facility] Hospital Course: Diagnoses: new onset Atrial fibrillation with RVR Acute systolic CHF, ejection fraction 45-50% moderate to severe tricuspid regurgitation Severe pulmonary hypertension Acute COPD exacerbation hyperlipidemia hypertension nicotine dependance osteoarthritis emphysemia and copd on chroinc oxygen use at home (4 L/M) left eye detached retina, wet macular degeneration of the right eye, legally blind melanoma on the back hearing difficulty obesity Hospital course: this is a pleasant 74yo M wiht past medical history of hyperlipidemia , hypertension , osteoarthritis, emphysemia and copd on chroinc oxygen use at home (4 L/M) left eye detached retina, 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 melanoma on the back, hearing difficulty , legally blind . he [facility] , his cardiologsit is and charge aide is , he went to see for palpiation and not feeling well and found to have a fib and rve , he was referred to the emergency room, his rate was controlled easily but with amiodarone 400 mg twice daily, metoprolol 75 mg 3 times a day, later on upon discharge diamond sander change his amiodarone to 200 mg twice a day for 2 weeks and daily thereafter. Patient is a started also on Eliquis, a 1 month free Eliquis Parmjit is provided for him with recommendation to follow-up with the [facility]/office for more prescription thereafter, he verbalized understanding and acceptance with this recommendation Also found to have acute COPD exacerbation and treated with steroids. This was switched to tapered prednisone up on discharge Patient uses CPAP machine at home and advised to continue with it Other problems including moderate to severe tricuspid regurgitation with severe pulmonary hypertension Patient has been evaluated by charge aide and diamond sander on both surfaces cleared him for discharge Patient is back to baseline and he was asymptomatic on the day of discharge. He only had mild exertional dyspnea more than usual and one-time dose of Lasix 20 mg is provided for him. Of note the staff worked the patient on 2 L/m of oxygen where usually he is at 4 L/m of oxygen Nevertheless patient is back to baseline I medically stable for discharge and he agrees to go home today and follow-up as an outpatient Problems and management plan were discussed with the patient and he verbalized understanding and acceptance Patient was found stable and can be discharged home however he needs follow-up as an outpatient. Patient was instructed to follow up with PCP within one week and patient agrees Physical exam -Gen: patient is a AAOx3, no distress. Morbidly obese CVS: S1-S2, RRR, no murmur Lungs: B/L CTA, no wheezing Abdomen: soft, no distention, no tenderness, positive bowel sounds -Extremity: Bilateral pitting leg edema. No induration Time spent more than 35 minutes Patient Condition at Discharge: Fair Plan - Discharge Summary Discharge Rx Participant: Yes New Discharge Prescriptions: New Apixaban [Eliquis] 5 mg PO BID 30 Days #60 tab Amiodarone [Cordarone] 200 mg PO DIRECTED 30 Days #60 tab predniSONE 10 mg PO DIRECTED #40 tab Continue Vit C/E/Zn/Coppr/Lutein/Zeaxan [Preservision Areds 2 Softgel] 1 cap PO BID Albuterol Sulfate [Proair Hfa] 2 puff INHALATION RT-Q6H PRN PRN Reason: Shortness Of Breath Metoprolol Tartrate [Lopressor] 25 mg PO BID Gabapentin [Neurontin] 400 mg PO BID Lidocaine 4% Cream [Lmx 4] 1 applic TOPICAL BID PRN PRN Reason: knee pain Escitalopram [Lexapro] 10 mg PO DAILY Dextran 70/Hypromellose [Lubricating Tears 0.1-0.3% Drp] 1 drop BOTH EYES QID Albuterol Nebulized [Ventolin Nebulized] 2.5 mg INHALATION RT-QID PRN PRN Reason: Shortness Of Breath Discontinued lisinopriL [Zestril] 2.5 mg PO HS Aspirin EC [Ecotrin Low Dose] 81 mg PO DAILY Discharge Medication List Vit C/E/Zn/Coppr/Lutein/Zeaxan [Preservision Areds 2 Softgel] 1 cap PO BID 08/03/17 [History] Albuterol Sulfate [Proair Hfa] 2 puff INHALATION RT-Q6H PRN 02/23/19 [History] Gabapentin [Neurontin] 400 mg PO BID 02/23/19 [History] Metoprolol Tartrate [Lopressor] 25 mg PO BID 02/23/19 [History] Albuterol Nebulized [Ventolin Nebulized] 2.5 mg INHALATION RT-QID PRN 11/25/20 [History] Dextran 70/Hypromellose [Lubricating Tears 0.1-0.3% Drp] 1 drop BOTH EYES QID 11/25/20 [History] Escitalopram [Lexapro] 10 mg PO DAILY 11/25/20 [History] Lidocaine 4% Cream [Lmx 4] 1 applic TOPICAL BID PRN 11/25/20 [History] Apixaban [Eliquis] 5 mg PO BID 30 Days #60 tab 11/26/20 [Rx] Amiodarone [Cordarone] 200 mg PO DIRECTED 30 Days #60 tab 12/01/20 [Rx] predniSONE 10 mg PO DIRECTED #40 tab 12/01/20 [Rx] Follow up Appointment(s)/Referral(s): Manfred Rodgers MD [STAFF PHYSICIAN] - 12/08/20 1:15 pm ([facility] location) Chris Ware DO [Doctor of Osteopathic Medicine] - 12/08/20 11:30 am (you will need outpatient sleep study) [facility] [Primary Care Provider] - 12/04/20 10:00 am (Virtual Appointment: Office will call you to confirm appointment and assist with set up. ) Patient Instructions/Handouts: Heart Failure ([facility]), A-fib (Atrial Fibrillation) ([facility]) Activity/Diet/Wound Care/Special Instructions: *Patient will need his first month of Eliquis filled at [facility] using a coupon. family independence case manager already faxed a written Rx to the [facility] to continue thereafter. Home Care Services will be arranged through the [facility]. If patient does not hear from them within 2 days of discharge, call the [facility] at [phone]. Discharge Disposition: HOME SELF-CARE
== END 2020-12-01 16:03 | disposition home or self-care (01) | DRG 308 ==
LOC: EC 11:40 → 3SCARD 13:57
PROVIDERS: ADMIT Internal Medicine; ATTEND Internal Medicine
PROC: 5A09557 Assistance with Respiratory Ventilation, Greater than 96 Consecutive Hours, Continuous Positive Airway Pressure (ICD-10-PCS; principal; 2020-11-26)
DX: I48.19 Other persistent atrial fibrillation (principal); J96.21 Acute and chronic respiratory failure with hypoxia; I50.21 Acute systolic (congestive) heart failure; J96.22 Acute and chronic respiratory failure with hypercapnia; Z68.41 Body mass index [BMI] 40.0-44.9, adult; N17.9 Acute kidney failure, unspecified; N39.0 Urinary tract infection, site not specified; R00.2 Palpitations; H91.90 Unspecified hearing loss, unspecified ear; J43.9 Emphysema, unspecified; Z85.528 Personal history of other malignant neoplasm of kidney; Z85.820 Personal history of malignant melanoma of skin; H54.8 Legal blindness, as defined in USA; Z80.8 Family history of malignant neoplasm of other organs or systems; Z82.3 Family history of stroke; E78.5 Hyperlipidemia, unspecified; Z99.81 Dependence on supplemental oxygen; H35.3210 Exudative age-related macular degeneration, right eye, stage unspecified; Z97.4 Presence of external hearing-aid; M19.90 Unspecified osteoarthritis, unspecified site; E66.9 Obesity, unspecified; I27.20 Pulmonary hypertension, unspecified; I25.10 Atherosclerotic heart disease of native coronary artery without angina pectoris; G47.33 Obstructive sleep apnea (adult) (pediatric); T50.2X5A Adverse effect of carbonic-anhydrase inhibitors, benzothiadiazides and other diuretics, initial encounter; I95.9 Hypotension, unspecified; R33.9 Retention of urine, unspecified; I07.1 Rheumatic tricuspid insufficiency; F17.210 Nicotine dependence, cigarettes, uncomplicated; Z79.01 Long term (current) use of anticoagulants; Z79.82 Long term (current) use of aspirin; Z79.899 Other long term (current) drug therapy; I11.0 Hypertensive heart disease with heart failure
CPT/HCPCS: 36415; 36600; 71045; 71046; 80048; 80053; 82550; 82805; 83735; 83880; 84443; 84484; 85025; 85610; 85730; 93005; 93306; 94640; 94660; 94760; 96360; 96374; 96375; 96376; 99285; 99291

== ENCOUNTER 2020-12-02 16:32 | Inpatient (IN) | payer OTHER, MEDICARE ==
[2020-12-02] MEDS ORDERED: ASPIRIN 81 MG PO STA (17:02)
[2020-12-02] MEDS ORDERED: IPRATROPIUM-ALBUTEROL 3 ML NEB INHALATION STA ×2 (17:03→18:20)
[2020-12-02] MEDS ORDERED: methylPREDNISolone SOD SUCCI 125 MG/2 ML VIAL IV STA (17:03)
[2020-12-02] MEDS: MAGNESIUM SULFATE-D5W PMX 1 GM in DEXTROSE/WATER 1 100ML.BAG IVPB SCH ×2 (17:08→18:11)
--- NOTE | 2020-12-02 18:18 | ED ---
General Adult HPI - General Chief complaint: Chest Pain Stated complaint: chest pain Time Seen by Provider: 12/02/20 16:43 Source: patient, RN notes reviewed, old records reviewed Mode of arrival: wheelchair Limitations: no limitations - History of Present Illness Initial comments: Patient is a 74-year-old male with past medical history of chronic respiratory failure requiring home 4L NC home oxygen, COPD, heart failure, A. fib was recently discharged from the hospital yesterday presents returning to the emergency department complaining of left-sided chest pain as well as worsening dyspnea and bilateral lower extremity edema. He states been worsening over the last day or so. They became concerned and brought him to the emergency department for evaluation. He presents with his family members. He denies any fevers, chills, cough. Denies any abdominal pain, nausea, vomiting. States that his shortness of breath is worse with exertion. He does endorse worsening exertional dyspnea but denies any worsening orthopnea or paroxysmal nocturnal dyspnea. He describes the chest pain as a sharp sensation over his left chest that does not radiate. It is improving at this time, and was worse earlier. He denies any palliative or provocative factors that are known. He'll ice denies any abdominal pain, nausea, vomiting. Patient otherwise feels his baseline. Family members are concerned that he may have been discharged home to really he presents complaining of his cardiac and lung symptoms at this time. - Related Data Home Medications Medication Instructions Recorded Confirmed Vit C/E/Zn/Coppr/Lutein/Zeaxan 1 cap PO BID 08/03/17 12/02/20 [Preservision Areds 2 Softgel] Albuterol Sulfate [Proair Hfa] 2 puff INHALATION RT-Q6H PRN 02/23/19 12/02/20 Gabapentin [Neurontin] 400 mg PO BID 02/23/19 12/02/20 Albuterol Nebulized [Ventolin 2.5 mg INHALATION RT-QID PRN 11/25/20 12/02/20 Nebulized] Dextran 70/Hypromellose 1 drop BOTH EYES QID 11/25/20 12/02/20 [Lubricating Tears 0.1-0.3% Drp] Escitalopram [Lexapro] 10 mg PO DAILY 11/25/20 12/02/20 Lidocaine 4% Cream [Lmx 4] 1 applic TOPICAL BID PRN 11/25/20 12/02/20 Amiodarone [Cordarone] See Taper PO DIRECTED 12/02/20 12/02/20 predniSONE See Taper PO DIRECTED 12/02/20 12/02/20 Previous Rx's Medication Instructions Recorded Apixaban [Eliquis] 5 mg PO BID 30 Days #60 tab 11/26/20 Metoprolol Tartrate [Lopressor] 75 mg PO TID #90 tablet 12/01/20 Allergies Allergy/AdvReac Type Severity Reaction Status Date / Time atorvastatin [From Lipitor] AdvReac Muscle Pain Verified 12/02/20 18:10 Review of Systems ROS Statement: Those systems with pertinent positive or pertinent negative responses have been documented in the HPI. Review of Systems: CONST: Denies fever EYES: Denies blurry vision ENT: Denies nasal congestion C/V: Endorses chest pain RESP: Shortness of breath GI: Denies abdominal pain : Denies dysuria SKIN: Denies rash. MSK: Denies joint pain. NEURO: Denies headache ROS Other: All systems not noted in ROS Statement are negative. Past Medical History Past Medical History: Atrial Fibrillation, Cancer, Eye Disorder, Hearing Disorder / Deafness, Hyperlipidemia, Hypertension, Osteoarthritis (OA) Additional Past Medical History / Comment(s): Emphysema (takes inhalers and uses oxygen at home). Hx Kidney Cancer in 2006. Left eye detached retina. Wet Macular Degeneration right eye. Hx Melanoma on back. Bilateral hearing aid use, legally blind. History of Any Multi-Drug Resistant Organisms: None Reported Past Surgical History: Back Surgery Additional Past Surgical History / Comment(s): Right kidney removed. Left eye surgery X3 for detacted retina. Bilateral cataract surgery. Mohs surgery thoracic spine for melanoma. Past Anesthesia/Blood Transfusion Reactions: Previous Problems w/ Anesthesia Additional Past Anesthesia/Blood Transfusion Reaction / Comment(s): States low heart rate, light-headed and low BP X1 with anesthesia. "Got broke vocal cord and could not talk for 2 months after anesthesia one time." Past Psychological History: No Psychological Hx Reported Smoking Status: Former smoker Past Alcohol Use History: Daily Past Drug Use History: Marijuana - Past Family History Mother Family Medical History: Cancer Additional Family Medical History / Comment(s): Brain CA. Father Family Medical History: CVA/TIA General Exam - General Exam Comments Initial Comments: General: Appears in no acute distress. HEAD: Normal with no signs of head trauma. EYES: PERRLA, EOMI, conjunctiva normal, no discharge. ENT: Hearing grossly intact, normal oropharynx. RESPIRATORY: Reduced breath sounds bilaterally with end expiratory wheezing. No obvious rhonchi. Minimal increased work of breathing. No retractions. C/V: Patient is tachycardic with an irregular rhythm. S1 and S2 auscultated. Patient has 2-3+ pitting edema in the bilateral lower extremities up to the level of the knees. Peripheral pulses are 2+ and intact throughout. ABD: Abd is soft, nontender, nondistended EXT: Normal range of motion, no obvious deformity SKIN: No rashes or lesions observed on exposed skin. NEURO: Alert and oriented 4. Limitations: no limitations Course Vital Signs 12/02/20 12/02/20 12/02/20 16:33 17:28 17:37 Temperature 98.1 F Pulse Rate 106 H 92 94 Respiratory 24 18 18 Rate Blood Pressure 117/74 O2 Sat by Pulse 81 L Oximetry 12/02/20 12/02/20 12/02/20 18:15 19:22 19:33 Temperature Pulse Rate 102 H 112 H 106 H Respiratory 16 Rate Blood Pressure 108/77 O2 Sat by Pulse 92 L Oximetry Medical Decision Making - Medical Decision Making Based on the patient's presentation and physical exam, I do believe he is likely expressing a heart failure exacerbation as well as COPD exacerbation, likely a mixed picture. Therefore we will treat for both. Due to his chest pain that is improving, I would like to obtain a cardiac workup as well. This will include basic labs, troponin, EKG, chest x-ray. Also included BNP. COVID-19 swab will be obtained. Patient will be admitted 125 mg of IV Solu-Medrol as well as multiple DuoNeb breathing treatments in the department for his COPD exacerbation. He was given an aspirin for his chest pain. I did a point of care echo which revealed bilateral B lines in both lung farah as well as before IVC with a mildly reduced EF, which is concerning for heart failure exacerbation therefore that coupled with his worsening dyspnea and bilateral lower extremity edema, he will receive 40 mg of IV Lasix. He'll be connected to continuous cardiac monitoring was here in the department. He was in agreement with this plan. Patient's EKG shows A. fib without RVR. He is rate controlled. Chest x-ray reveals mild bilateral pulmonary edema. Laboratory studies are remarkable for an elevated BNP in the 6000s, a normal troponin. Patient does have a mild hyperkalemia 5.4 without any EKG changes at this time. He is receiving Lasix which should help clear it. Patient is a mild leukocytosis of 11.9. Patient does have an elevated bicarbonate which appears chronic as it is 38 which is similar as yesterday. Renal function is mildly improved with a creatinine of 1.21. Remainder of his laboratory studies are unremarkable. Due to patient's hyperkalemia, we will provide him with 10 units of regular insulin as well as an amp of D50 to shift it intracellularly until can be cleared by Lasix. Patient is already receiving albuterol and DuoNeb switches shifted as well. Renal function is adequate so he should clear it. On reevaluation, patient's breathing is improved as is his oxygen saturation to there are greater than 95% on 5 L nasal cannula. Breath sounds are more audible bilaterally with improved wheezing, and he will be administered an additional DuoNeb at this time. I informed him the results of his laboratory studies and imaging and a specimen I would like to admit the hospital. He was in agreement with this plan. Patient remains in nature fibrillation but rate controlled with rate less than 110 bpm. Patient was in agreement with this plan. COVID-19 swab was negative. I spoke with the admitting team, GABRIEL Patiño of [facility], who accepted the admission. Patient will be admitted under Dr. Stallworth. I put a routine consult and for the patient's lumber marker, Dr. andino, to evaluate the patient tomorrow. Patient was placed on every six-hour 40 mg Solu-Medrol as well as every 4 hours DuoNeb breathing treatments for his COPD exacerbation. Nightly CPAP was ordered at the patient's request. I spoke with the patient's shrimp peeling machine operator, Dr. Rodgers and consult attempt to evaluate him for his heart failure exacerbation. Dr. Rodgers agreed to the consultation. Patient was therefore admitted to the hospital in serious condition with a telemetry bed. - Lab Data Result diagrams: 12/02/20 17:11 12/02/20 17:11 Lab Results 12/02/20 12/02/20 12/02/20 Range/Units 17:11 17:11 17:11 WBC 11.9 H (3.8-10.6) k/uL RBC 4.17 L (4.30-5.90) m/uL Hgb 13.0 (13.0-17.5) gm/dL Hct 43.4 (39.0-53.0) % MCV 104.1 H (80.0-100.0) fL MCH 31.2 (25.0-35.0) pg MCHC 30.0 L (31.0-37.0) g/dL RDW 12.9 (11.5-15.5) % Plt Count 233 (150-450) k/uL MPV 8.2 Neutrophils % 90 % Lymphocytes % 5 % Monocytes % 4 % Eosinophils % 0 % Basophils % 0 % Neutrophils # 10.7 H (1.3-7.7) k/uL Lymphocytes # 0.6 L (1.0-4.8) k/uL Monocytes # 0.4 (0-1.0) k/uL Eosinophils # 0.0 (0-0.7) k/uL Basophils # 0.0 (0-0.2) k/uL Hypochromasia Moderate Macrocytosis Slight PT 10.5 (9.0-12.0) sec INR 1.0 (<1.2) APTT 22.6 (22.0-30.0) sec Sodium 138 (137-145) mmol/L Potassium 5.4 H (3.5-5.1) mmol/L Chloride 95 L (98-107) mmol/L Carbon Dioxide 38 H (22-30) mmol/L Anion Gap 5 mmol/L BUN 45 H (9-20) mg/dL Creatinine 1.21 (0.66-1.25) mg/dL Est GFR (CKD-EPI)AfAm 68 (>60 ml/min/1.73 sqM) Est GFR (CKD-EPI)NonAf 59 (>60 ml/min/1.73 sqM) Glucose 176 H (74-99) mg/dL Calcium 9.4 (8.4-10.2) mg/dL Magnesium 2.3 (1.6-2.3) mg/dL Total Bilirubin 0.3 (0.2-1.3) mg/dL AST 27 (17-59) U/L ALT 50 H (4-49) U/L Alkaline Phosphatase 68 (38-126) U/L Troponin I (0.000-0.034) ng/mL NT-Pro-B Natriuret Pep pg/mL Total Protein 6.5 (6.3-8.2) g/dL Albumin 3.8 (3.5-5.0) g/dL Coronavirus (PCR) (Not Detectd) 12/02/20 12/02/20 12/02/20 Range/Units 17:11 17:11 18:45 WBC (3.8-10.6) k/uL RBC (4.30-5.90) m/uL Hgb (13.0-17.5) gm/dL Hct (39.0-53.0) % MCV (80.0-100.0) fL MCH (25.0-35.0) pg MCHC (31.0-37.0) g/dL RDW (11.5-15.5) % Plt Count (150-450) k/uL MPV Neutrophils % % Lymphocytes % % Monocytes % % Eosinophils % % Basophils % % Neutrophils # (1.3-7.7) k/uL Lymphocytes # (1.0-4.8) k/uL Monocytes # (0-1.0) k/uL Eosinophils # (0-0.7) k/uL Basophils # (0-0.2) k/uL Hypochromasia Macrocytosis PT (9.0-12.0) sec INR (<1.2) APTT (22.0-30.0) sec Sodium (137-145) mmol/L Potassium (3.5-5.1) mmol/L Chloride (98-107) mmol/L Carbon Dioxide (22-30) mmol/L Anion Gap mmol/L BUN (9-20) mg/dL Creatinine (0.66-1.25) mg/dL Est GFR (CKD-EPI)AfAm (>60 ml/min/1.73 sqM) Est GFR (CKD-EPI)NonAf (>60 ml/min/1.73 sqM) Glucose (74-99) mg/dL Calcium (8.4-10.2) mg/dL Magnesium (1.6-2.3) mg/dL Total Bilirubin (0.2-1.3) mg/dL AST (17-59) U/L ALT (4-49) U/L Alkaline Phosphatase (38-126) U/L Troponin I <0.012 (0.000-0.034) ng/mL NT-Pro-B Natriuret Pep 6450 pg/mL Total Protein (6.3-8.2) g/dL Albumin (3.5-5.0) g/dL Coronavirus (PCR) Not Detected (Not Detectd) - EKG Data -: EKG Interpreted by Me EKG Comments: 12-lead Electrocardiogram Interpretation Note EKG was reviewed and interpreted by myself. 12-lead ECG performed at 1656 is interpreted by me as revealing atrial fibrillation at a rate of 104 beats per minute. [place] is normal. TX interval is unobtainable. QRS duration is 112 ms, QTc is 423 ms.. There were no ST or T wave abnormalities to suggest myocardial ischemia or injury. R wave progression across the precordium was satisfactory. By my interpretation this EKG is non-diagnostic for acute ischemia. Disposition Clinical Impression: COPD exacerbation, Acute exacerbation of congestive heart failure, Atrial fibrillation, Chronic respiratory failure with hypoxia, On home oxygen therapy, Sleep apnea, Hyperkalemia, Dyspnea, Chest pain Disposition: ADMITTED IP TO THIS HOSP Condition: Serious Referrals: [facility],Clinic [Primary Care Provider] - 1-2 days
--- NOTE | 2020-12-02 18:18 | XR ---
EXAMINATION TYPE: XR chest 2V DATE OF EXAM: 12/02/2020 COMPARISON: 11/30/2020 HISTORY: Chest TECHNIQUE: FINDINGS: There is some blunting of the costophrenic angles. Heart is enlarged. There is minimal marco a estion. There are chest leads. Bony thorax is intact. IMPRESSION: Small pleural effusions. There is mild pulmonary congestion and consistent with minimal h eart failure that is unchanged compared to last exam..
[2020-12-02] MEDS ORDERED: FUROSEMIDE 10 MG/ML 4 ML VIAL IV STA (18:25)
[2020-12-02 18:34] LABS: Basophils % (A) 0 %; Eosinophils % (A) 0 %; HCT 43.4 % (39.0-53.0); Hypochromasia Moderate; Lymphocytes # (A) 0.6 k/uL (1.0-4.8); Lymphocytes % (A) 5 %; MCH 31.2 pg (25.0-35.0); MCV 104.1 fL (80.0-100.0); Macrocytosis Slight; Mean Platelet Volume 8.2; Monocytes # (A) 0.4 k/uL (0-1.0); Monocytes % (A) 4 %; Neutrophils # (A) 10.7 k/uL (1.3-7.7); Neutrophils % (A) 90 %; Platelet Count 233 k/uL (150-450); RBC 4.17 m/uL (4.30-5.90); RDW 12.9 % (11.5-15.5); WBC 11.9 k/uL (3.8-10.6)
[2020-12-02 18:39] LABS: Albumin 3.8 g/dL (3.5-5.0); Calcium 9.4 mg/dL (8.4-10.2); Magnesium 2.3 mg/dL (1.6-2.3); Potassium 5.4 mmol/L (3.5-5.1); Total Bilirubin 0.3 mg/dL (0.2-1.3); Total Protein 6.5 g/dL (6.3-8.2)
[2020-12-02 18:43] LABS: Partial Thromboplastin Time 22.6 sec (22.0-30.0); Prothrombin Time 10.5 sec (9.0-12.0)
[2020-12-02] MEDS ORDERED: ACETAMINOPHEN TAB 325 MG TAB PO PRN (19:28)
[2020-12-02] MEDS ORDERED: DEXTROSE 50% SYRINGE 50 ML IVP STA (20:00)
[2020-12-02] MEDS ORDERED: INSULIN REGULAR 100 UNIT/ML VIAL (IV) IV ONE (20:00)
[2020-12-02] MEDS: APIXABAN 5 MG TAB PO SCH (21:54)
[2020-12-02] MEDS: GABAPENTIN 400 MG CAP PO SCH (21:55)
[2020-12-02] MEDS: AMIODARONE 200 MG TAB PO SCH (21:55)
[2020-12-02] MEDS: ARTIFICIAL TEARS-HYPROMELLOSE DROPS 15 ML BTL BOTH EYES SCH (22:06)
[2020-12-02] MEDS: IPRATROPIUM-ALBUTEROL 3 ML NEB INHALATION SCH ×2 (22:06→23:56)
[2020-12-02] MEDS: METOPROLOL TARTRATE 25 MG TAB PO SCH (22:09)
[2020-12-02] MEDS ORDERED: IPRATROPIUM-ALBUTEROL 3 ML NEB ONE (23:59)
[2020-12-03] MEDS: IPRATROPIUM-ALBUTEROL 3 ML NEB INHALATION SCH ×5 (04:25→19:58)
[2020-12-03] MEDS: methylPREDNISolone SOD SUCCI 40 MG/ML 1 ML VIAL IV SCH ×5 (06:16→23:06)
[2020-12-03] MEDS: MIDODRINE 5 MG TAB PO SCH ×3 (07:59→18:15)
[2020-12-03] MEDS: METOPROLOL TARTRATE 25 MG TAB PO SCH ×3 (08:19→20:50)
[2020-12-03] MEDS: AMIODARONE 200 MG TAB PO SCH ×2 (08:19→20:51)
[2020-12-03] MEDS: APIXABAN 5 MG TAB PO SCH ×2 (08:19→20:51)
[2020-12-03] MEDS: GABAPENTIN 400 MG CAP PO SCH ×2 (08:19→20:50)
[2020-12-03] MEDS: FUROSEMIDE 10 MG/ML 4 ML VIAL IV SCH ×2 (08:20→20:51)
--- NOTE | 2020-12-03 08:24 | P.CRDCN ---
History of Present Illness Consult date: 12/03/20 History of present illness: This is a very pleasant 74-year-old gentleman with extensive past medical history consistent off advanced chronic obstructive pulmonary disease and currently the patient is on oxygen continuously as well as mild cardiomyopathy with last echo showing an 85% as well as persistent atrial fibrillation as well as hypertension and dyslipidemia presented to the emergency department complaining of increasing shortness of breath. The patient just was discharged from the hospital summary after he was admitted with a newly diagnosed as atrial fibrillation and a rate control strategy was proceeded. He was discharged on metoprolol as well as on oral anticoagulation. This time he stated that he wake up yesterday not feeling well. He did not have any specific symptoms of chest pain or chest discomfort but he did have slight increase in the shortness of breath.No cough or sputum production. No fever no chills. He did feel weak and tired and has no energy. When he presented to emergency department he underwent a workup including EKG showing atrial fibrillation with heart rate 110 beats per minutes. The NC proBNP came in to be elevated. On examination he has no JVD but he does have clear breathing sounds bilaterally with mild bilateral lower extremities edema. The patient was started on Lasix. He stated that he is feeling slightly better. The last echo from his previous admission showed an ejection fraction of 45% with severe pulmonary hypertension which is not unexpected given his lung condition and COPD. Past Medical History Past Medical History: Atrial Fibrillation, Cancer, Eye Disorder, Hearing Disorder / Deafness, Hyperlipidemia, Hypertension, Osteoarthritis (OA) Additional Past Medical History / Comment(s): Emphysema (takes inhalers and uses oxygen at home). Hx Kidney Cancer in 2006. Left eye detached retina. Wet Macular Degeneration right eye. Hx Melanoma on back. Bilateral hearing aid use, legally blind. History of Any Multi-Drug Resistant Organisms: None Reported Past Surgical History: Back Surgery Additional Past Surgical History / Comment(s): Right kidney removed. Left eye surgery X3 for detacted retina. Bilateral cataract surgery. Mohs surgery thoracic spine for melanoma. Past Anesthesia/Blood Transfusion Reactions: Previous Problems w/ Anesthesia Additional Past Anesthesia/Blood Transfusion Reaction / Comment(s): States low heart rate, light-headed and low BP X1 with anesthesia. "Got broke vocal cord a nd could not talk for 2 months after anesthesia one time." Past Psychological History: No Psychological Hx Reported Smoking Status: Former smoker Past Alcohol Use History: Daily Past Drug Use History: Marijuana - Past Family History Mother Family Medical History: Cancer Additional Family Medical History / Comment(s): Brain CA. Father Family Medical History: CVA/TIA Medications and Allergies Home Medications Medication Instructions Recorded Confirmed Type Vit C/E/Zn/Coppr/Lutein/Zeaxan 1 cap PO BID 08/03/17 12/02/20 History [Preservision Areds 2 Softgel] Albuterol Sulfate [Proair Hfa] 2 puff INHALATION RT-Q6H PRN 02/23/19 12/02/20 History Gabapentin [Neurontin] 400 mg PO BID 02/23/19 12/02/20 History Albuterol Nebulized [Ventolin 2.5 mg INHALATION RT-QID PRN 11/25/20 12/02/20 History Nebulized] Dextran 70/Hypromellose 1 drop BOTH EYES QID 11/25/20 12/02/20 History [Lubricating Tears 0.1-0.3% Drp] Escitalopram [Lexapro] 10 mg PO DAILY 11/25/20 12/02/20 History Lidocaine 4% Cream [Lmx 4] 1 applic TOPICAL BID PRN 11/25/20 12/02/20 History Apixaban [Eliquis] 5 mg PO BID 30 Days #60 tab 11/26/20 12/02/20 Rx Metoprolol Tartrate [Lopressor] 75 mg PO TID #90 tablet 12/01/20 12/02/20 Rx Amiodarone [Cordarone] See Taper PO DIRECTED 12/02/20 12/02/20 History predniSONE See Taper PO DIRECTED 12/02/20 12/02/20 History Allergies Allergy/AdvReac Type Severity Reaction Status Date / Time atorvastatin [From Lipitor] AdvReac Muscle Pain Verified 12/02/20 18:10 Physical Exam Vitals: Vital Signs Temp Pulse Pulse Resp BP BP Pulse Ox 12/03/20 07:39 97.2 F L 94 20 143/112 96 12/03/20 07:34 114 H 18 12/03/20 07:24 108 H 18 94 L 12/03/20 06:24 99 18 133/99 94 L 12/02/20 23:03 110 H 18 114/58 97 12/02/20 22:05 115 H 22 93/70 93 L 07/27/21 19:33 106 H 12/02/20 19:22 112 H 12/02/20 18:15 102 H 16 108/77 92 L 12/02/20 17:37 94 18 12/02/20 17:28 92 18 12/02/20 16:33 98.1 F 106 H 24 117/74 81 L Intake and Output 12/02/20 12/03/20 12/03/20 22:59 06:59 14:59 Other: Weight 136.078 kg - Constitutional General appearance: no acute distress - Respiratory Respiratory: bilateral: CTA - Cardiovascular Rhythm: irregularly irregular Heart sounds: normal: S1, S2 Abnormal Heart Sounds: systolic murmur Results 12/02/20 17:11 12/02/20 17:11 Cardiac Enzymes 12/02/20 12/02/20 12/02/20 Range/Units 17:11 17:11 21:01 AST 27 (17-59) U/L Troponin I <0.012 <0.012 (0.000-0.034) ng/mL 12/03/20 Range/Units 03:55 AST (17-59) U/L Troponin I <0.012 (0.000-0.034) ng/mL Coagulation 12/02/20 Range/Units 17:11 PT 10.5 (9.0-12.0) sec APTT 22.6 (22.0-30.0) sec CBC 12/02/20 Range/Units 17:11 WBC 11.9 H (3.8-10.6) k/uL RBC 4.17 L (4.30-5.90) m/uL Hgb 13.0 (13.0-17.5) gm/dL Hct 43.4 (39.0-53.0) % Plt Count 233 (150-450) k/uL Comprehensive Metabolic Panel 12/02/20 Range/Units 17:11 Sodium 138 (137-145) mmol/L Potassium 5.4 H (3.5-5.1) mmol/L Chloride 95 L (98-107) mmol/L Carbon Dioxide 38 H (22-30) mmol/L BUN 45 H (9-20) mg/dL Creatinine 1.21 (0.66-1.25) mg/dL Glucose 176 H (74-99) mg/dL Calcium 9.4 (8.4-10.2) mg/dL AST 27 (17-59) U/L ALT 50 H (4-49) U/L Alkaline Phosphatase 68 (38-126) U/L Total Protein 6.5 (6.3-8.2) g/dL Albumin 3.8 (3.5-5.0) g/dL Current Medications Generic Name Dose Route Start Last Admin Trade Name Freq PRN Reason Stop Dose Admin Acetaminophen 650 mg 12/02/20 19:28 Acetaminophen Tab 325 Mg Tab PO Q6HR PRN Mild Pain or Fever > 100.5 Albuterol/Ipratropium 3 ml 12/02/20 22:00 12/03/20 07:24 Ipratropium-Albuterol 3 Ml Neb INHALATION 3 ml RT-Q4H ELKE Administration Amiodarone HCl 200 mg 12/02/20 21:00 12/02/20 21:55 Amiodarone 200 Mg Tab PO 200 mg BID ELKE Administration Apixaban 5 mg 12/02/20 21:00 12/02/20 21:54 Apixaban 5 Mg Tab PO 5 mg BID ELKE Administration Protocol Artificial Tears 1 drops 12/02/20 22:00 12/02/20 22:06 Artificial Tears-Hypromellose Drops 15 Ml Btl BOTH EYES Not Given QID ELKE Furosemide 40 mg 12/03/20 09:00 Furosemide 10 Mg/Ml 4 Ml Vial IV Q12HR ELKE Gabapentin 400 mg 12/02/20 21:00 12/02/20 21:55 Gabapentin 400 Mg Cap PO 400 mg BID ELKE Administration Methylprednisolone Sodium Succinate 40 mg 12/03/20 00:00 12/03/20 06:22 Methylprednisolone Sod Succi 40 Mg/Ml 1 Ml Vial IV 40 mg Q6HR ELKE Administration Metoprolol Tartrate 75 mg 12/02/20 22:00 12/02/20 22:09 Metoprolol Tartrate 25 Mg Tab PO 75 mg TID ELKE Administration Midodrine 5 mg 12/03/20 07:30 12/03/20 07:59 Midodrine 5 Mg Tab PO Not Given AC-TID ELKE Intake and Output 12/02/20 12/03/20 12/03/20 22:59 06:59 14:59 Other: Weight 136.078 kg 12/02/20 17:11 12/02/20 17:11 Assessment and Plan Assessment: Assessment #1 generalized symptoms of tiredness and fatigue and has no energy. #2 shortness of breath which is a combination of chronic obstructive pulmonary disease as well as heart failure with reduced ejection fraction #3 known chronic hypoxic respiratory failure #4 persistent atrial fibrillation with relatively controlled heart rate #5 multiple comorbid conditions Plan #1 I doubt the patient is in overt heart failure clinically. He has no JVD. His breathing sounds are clear. He has only mild or extremities edema. #2 continue the Lasix for additional 24 hours #3 monitor the kidney function and electrolytes #4 recent echo showed an EF of 45% #5 follow-up with the patient
[2020-12-03] MEDS: ARTIFICIAL TEARS-HYPROMELLOSE DROPS 15 ML BTL BOTH EYES SCH ×4 (08:35→20:52)
--- NOTE | 2020-12-03 10:50 | P.HPIM ---
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 me lanoma on the back, hearing difficulty , legally blind . he follows up with the [facility] , his cardiologsit is and medicine and health service manager is , he was recently discharged 2 days ago for A. fib and RVR on the top of his acute systolic CHF and COPD exacerbation. However patient went home and had difficulty moving around, he dropped his oxygen and it was still short of breath. He missed 1 dose of metoprolol but resumed his medication of right toes 75 mg 3 times a day. also he was not restricting the flu. The patient returns to the hospital complaining of from dyspnea, fatigue and tiredness with bilateral leg swelling. Also is complaining of from a sharp left-sided chest pain that increased with movement and tenderness. His chest pain does not look cardiac in origin and is improved by the time I saw him His Vitas looks stable, he is saturating 93% on his home dose of 4 L oxygen nasal cannula, he was slightly tachycardic at 110-115. However in the morning his heart rate was 99. his labs showed mild leukocytosis of 11.9 since he is on prednisone. Potassium slightly up at 5.41 normal creatinine at 1.2. Rest of CBC, INR, BMP and liver enzymes were unremarkable. Troponins 3 less than 0.012 which is negative. emergency room he received Lasix 1, Solu-Medrol, bronchodilator. chest x-ray showing: Pulmonary congestion similar to last CXR EKG showing atrial fibrillation's with RVR at 104, QTC is 423 Review of Systems CONSTITUTIONAL: No fever, no malaise, no fatigue. HEENT: No recent visual problems or hearing problems. Denied any sore throat. CARDIOVASCULAR: No orthopnea, PND, no palpitations, no syncope. PULMONARY: No chest wall tenderness, no hemoptysis. GASTROINTESTINAL: No diarrhea, no nausea, no vomiting, no abdominal pain. Normoactive bowel sounds. NEUROLOGICAL: No headaches, no weakness, no numbness. HEMATOLOGICAL: Denies any bleeding or petechiae. GENITOURINARY: Denies any burning micturition, frequency, or urgency. MUSCULOSKELETAL/RHEUMATOLOGICAL: Denies any joint pain, swelling, or any muscle pain. ENDOCRINE: Denies any polyuria or polydipsia. Past Medical History Past Medical History: Atrial Fibrillation, Cancer, Eye Disorder, Hearing Disorder / Deafness, Hyperlipidemia, Hypertension, Osteoarthritis (OA) Additional Past Medical History / Comment(s): Emphysema (takes inhalers and uses oxygen at home). Hx Kidney Cancer in 2006. Left eye detached retina. Wet Macular Degeneration right eye. Hx Melanoma on back. Bilateral hearing aid use, legally blind. History of Any Multi-Drug Resistant Organisms: None Reported Past Surgical History: Back Surgery Additional Past Surgical History / Comment(s): Right kidney removed. Left eye surgery X3 for detacted retina. Bilateral cataract surgery. Mohs surgery thoracic spine for melanoma. Past Anesthesia/Blood Transfusion Reactions: Previous Problems w/ Anesthesia Additional Past Anesthesia/Blood Transfusion Reaction / Comment(s): States low heart rate, light-headed and low BP X1 with anesthesia. "Got broke vocal cord and could not talk for 2 months after anesthesia one time." Past Psychological History: No Psychological Hx Reported Smoking Status: Former smoker Past Alcohol Use History: Daily Past Drug Use History: Marijuana - Past Family History Mother Family Medical History: Cancer Additional Family Medical History / Comment(s): Brain CA. Father Family Medical History: CVA/TIA Medications and Allergies Home Medications Medication Instructions Recorded Confirmed Type Vit C/E/Zn/Coppr/Lutein/Zeaxan 1 cap PO BID 08/03/17 12/02/20 History [Preservision Areds 2 Softgel] Albuterol Sulfate [Proair Hfa] 2 puff INHALATION RT-Q6H PRN 02/23/19 12/02/20 History Gabapentin [Neurontin] 400 mg PO BID 02/23/19 12/02/20 History Albuterol Nebulized [Ventolin 2.5 mg INHALATION RT-QID PRN 11/25/20 12/02/20 History Nebulized] Dextran 70/Hypromellose 1 drop BOTH EYES QID 11/25/20 12/02/20 History [Lubricating Tears 0.1-0.3% Drp] Escitalopram [Lexapro] 10 mg PO DAILY 11/25/20 12/02/20 History Lidocaine 4% Cream [Lmx 4] 1 applic TOPICAL BID PRN 11/25/20 12/02/20 History Apixaban [Eliquis] 5 mg PO BID 30 Days #60 tab 11/26/20 12/02/20 Rx Metoprolol Tartrate [Lopressor] 75 mg PO TID #90 tablet 12/01/20 12/02/20 Rx Amiodarone [Cordarone] See Taper PO DIRECTED 12/02/20 12/02/20 History predniSONE See Taper PO DIRECTED 12/02/20 12/02/20 History Allergies Allergy/AdvReac Type Severity Reaction Status Date / Time atorvastatin [From Lipitor] AdvReac Muscle Pain Verified 12/02/20 18:10 Physical Exam Vitals: Vital Signs Temp Pulse Resp BP Pulse Ox 12/03/20 06:24 99 18 133/99 94 L 12/02/20 23:03 110 H 18 114/58 97 12/02/20 22:05 115 H 22 93/70 93 L 12/02/20 19:33 106 H 12/02/20 19:22 112 H 12/02/20 18:15 102 H 16 108/77 92 L 12/02/20 17:37 94 18 12/02/20 17:28 92 18 12/02/20 16:33 98.1 F 106 H 24 117/74 81 L Intake and Output 12/02/20 12/03/20 12/03/20 22:59 06:59 14:59 Other: Weight 136.078 kg -GENERAL: The patient is alert and oriented x3, not in any acute distress. Obese HEENT: Pupils are round and equally reacting to light. EOMI. No scleral icterus. No conjunctival pallor. Normocephalic, atraumatic. No pharyngeal erythema. No thyromegaly. CARDIOVASCULAR: S1 and S2 present. No murmurs, rubs, or gallops. -PULMONARY: Chest is clear to auscultation, bilateral scattered wheezing and bilateral basal crackles. with decreased air entry ABDOMEN: Soft, nontender, nondistended, normoactive bowel sounds. No palpable organomegaly. MUSCULOSKELETAL: No joint swelling or deformity. -EXTREMITIES: No cyanosis, clubbing,. 2+ leg edema, pitting. NEUROLOGICAL: Gross neurological examination did not reveal any focal deficits. SKIN: No rashes. No petechiae Results CBC & Chem 7: 12/02/20 17:11 12/02/20 17:11 Labs: Abnormal Lab Results - Last 24 Hours (Table) 12/02/20 12/02/20 Range/Units 17:11 17:11 WBC 11.9 H (3.8-10.6) k/uL RBC 4.17 L (4.30-5.90) m/uL MCV 104.1 H (80.0-100.0) fL MCHC 30.0 L (31.0-37.0) g/dL Neutrophils # 10.7 H (1.3-7.7) k/uL Lymphocytes # 0.6 L (1.0-4.8) k/uL Potassium 5.4 H (3.5-5.1) mmol/L Chloride 95 L (98-107) mmol/L Carbon Dioxide 38 H (22-30) mmol/L BUN 45 H (9-20) mg/dL Glucose 176 H (74-99) mg/dL ALT 50 H (4-49) U/L Assessment and Plan Assessment: Acute on chronic systolic CHF, ejection fraction 45-50% Acute COPD exacerbation Deconditioning new onset Atrial fibrillation with RVR moderate to severe tricuspid regurgitation Severe pulmonary hypertension hyperlipidemia hypertension nicotine dependance osteoarthritis emphysemia and copd on chroinc oxygen use at home (4 L/M) left eye detached retina, 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 Continue with steroids and bronchodilator. Start Lasix 40 mg twice daily, at midodrine to help blood pressure Monitor electrolytes and creatinine Cardiology and pulmonary team consult Probably patient will need placement to ECF for rehab, he is from the [facility] and office Labs and medication were reviewed.. Continue same treatment. Continue with symptomatic treatment. Resume home medication. Monitor lytes and vitals. DVT and GI prophylaxis. Further recommendationsas per clinical course of the patient DVT prophylaxis: Eliquis GI Prophylaxis: Pepcid PT/OT: Pending Prognosis is guarded
--- NOTE | 2020-12-03 11:50 | P.CNPUL ---
History of Present Illness Consult date: 12/03/20 Requesting physician: Lakhwinder Stallworth Reason for consult: dyspnea, pleural effusion Chief complaint: Generalized weakness, fatigue, shortness of breath History of present illness: This is a very pleasant 74-year-old gentleman who follows at the [facility] clinic for his primary care needs. He has a history of hearing disorder, hyperlipidemia, hypertension, osteoarthritis, kidney cancer in 2006, macular degeneration, melanoma removed from his back daily alcohol use, history of marijuana use. He also has chronic and ongoing tobacco dependence and oxygen dependent chronic obstructive pulmonary disease and had previously followed with a mop worker that he was not liking and is scheduled to see Dr. Ware in our office next month. He also has obstructive sleep apnea but not utilizing his home CPAP. He has only been on a Ventolin rescue inhaler. He was recently hospitalized for atrial fibrillation with a rapid ventricular response and fluid volume overload. He was discharged home on amiodarone, Eliquis, beta blockers. Prednisone taper for COPD. He was just discharged home on 12/01/2020 and return to the emergency room on 12/02/2020 with complaints of generalized weakness, fatigue, increasing edema of the lower extremities. He was short of breath. Chest x-ray revealed evidence of small bilateral pleural effusions with some mild pulmonary congestion consistent with minimal heart failure. He is seen today in consultation in the emergency room. He is currently sitting up on the stretcher. Awake and alert in no acute distress. He states he just has general overall weakness and fatigue. Short of breath with minimal activity. He is maintaining O2 saturations in the mid 90s on 4 L/m per nasal cannula. He is a febrile. Slightly tachycardic. Remains in atrial fibrillation. White count 11.9. Hemoglobin 13.0. Sodium 138. Potassium 5.4. Creatinine 1.21. Troponins negative 3. ProBNP 6450. Barbosa virus not detected. He's been initiated on DuoNeb inhalations, IV Solu-Medrol, IV diuretics. Anticoagulated with Eliquis. Review of Systems REVIEW OF SYSTEMS: CONSTITUTIONAL: Positive for generalized weakness, fatigue. Denies any recent significant weight loss or weight gain. EYES: Denies change in vision. EARS, NOSE, MOUTH, THROAT: Denies headaches, denies sore throat. CARDIOVASCULAR: Denies chest pain, palpitations or syncopal episodes. RESPIRATORY: Positive for shortness of breath, cough, congestion or hemoptysis. GASTROINTESTINAL: Denies change in appetite, denies abdominal pain GENITOURINARY: Denies hematuria, denies infections. MUSKULOSKELETAL: Denies pain, denies swelling. INTEGUMENTARY: Denies rash, denies eczema. NEUROLOGICAL: Denies recent memory loss, no recent seizure activity. PSYCHIATRIC: Denies anxiety, denies depression. HEMATOLOGIC/LYMPHATIC: Denies anemia, denies enlarged lymph nodes. Past Medical History Past Medical History: Atrial Fibrillation, Cancer, Eye Disorder, Hearing Disorder / Deafness, Hyperlipidemia, Hypertension, Osteoarthritis (OA) Additional Past Medical History / Comment(s): Emphysema (takes inhalers and uses oxygen at home). Hx Kidney Cancer in 2006. Left eye detached retina. Wet Macular Degeneration right eye. Hx Melanoma on back. Bilateral hearing aid use, legally blind. History of Any Multi-Drug Resistant Organisms: None Reported Past Surgical History: Back Surgery Additional Past Surgical History / Comment(s): Right kidney removed. Left eye surgery X3 for detacted retina. Bilateral cataract surgery. Mohs surgery thoracic spine for melanoma. Past Anesthesia/Blood Transfusion Reactions: Previous Problems w/ Anesthesia Additional Past Anesthesia/Blood Transfusion Reaction / Comment(s): States low heart rate, light-headed and low BP X1 with anesthesia. "Got broke vocal cord and could not talk for 2 months after anesthesia one time." Past Psychological History: No Psychological Hx Reported Smoking Status: Former smoker Past Alcohol Use History: Daily Past Drug Use History: Marijuana - Past Family History Mother Family Medical History: Cancer Additional Family Medical History / Comment(s): Brain CA. Father Family Medical History: CVA/TIA Medications and Allergies Home Medications Medication Instructions Recorded Confirmed Type Vit C/E/Zn/Coppr/Lutein/Zeaxan 1 cap PO BID 08/03/17 12/02/20 History [Preservision Areds 2 Softgel] Albuterol Sulfate [Proair Hfa] 2 puff INHALATION RT-Q6H PRN 02/23/19 12/02/20 History Gabapentin [Neurontin] 400 mg PO BID 02/23/19 12/02/20 History Albuterol Nebulized [Ventolin 2.5 mg INHALATION RT-QID PRN 11/25/20 12/02/20 History Nebulized] Dextran 70/Hypromellose 1 drop BOTH EYES QID 11/25/20 12/02/20 History [Lubricating Tears 0.1-0.3% Drp] Escitalopram [Lexapro] 10 mg PO DAILY 11/25/20 12/02/20 History Lidocaine 4% Cream [Lmx 4] 1 applic TOPICAL BID PRN 11/25/20 12/02/20 History Apixaban [Eliquis] 5 mg PO BID 30 Days #60 tab 11/26/20 12/02/20 Rx Metoprolol Tartrate [Lopressor] 75 mg PO TID #90 tablet 12/01/20 12/02/20 Rx Amiodarone [Cordarone] See Taper PO DIRECTED 12/02/20 12/02/20 History predniSONE See Taper PO DIRECTED 12/02/20 12/02/20 History Allergies Allergy/AdvReac Type Severity Reaction Status Date / Time atorvastatin [From Lipitor] AdvReac Muscle Pain Verified 12/02/20 18:10 Physical Exam Vitals: Vital Signs Temp Pulse Pulse Resp BP BP Pulse Ox 12/03/20 11:16 111 H 18 12/03/20 11:05 103 H 18 12/03/20 07:39 97.2 F L 94 20 143/112 96 12/03/20 07:34 114 H 18 12/03/20 07:24 108 H 18 94 L 12/03/20 06:24 99 18 133/99 94 L 12/02/20 23:03 110 H 18 114/58 97 12/02/20 22:05 115 H 22 93/70 93 L 12/02/20 19:33 106 H 12/02/20 19:22 112 H 12/02/20 18:15 102 H 16 108/77 92 L 12/02/20 17:37 94 18 12/02/20 17:28 92 18 12/02/20 16:33 98.1 F 106 H 24 117/74 81 L Intake and Output 12/02/20 12/03/20 12/03/20 22:59 06:59 14:59 Intake Total 320 Output Total 400 Balance -80 Intake: Oral 320 Output: Urine 400 Other: Weight 136.078 kg GENERAL EXAM: Alert, pleasant 74-year-old gentleman, on 4 L nasal cannula, fairly comfortable in no apparent distress. HEAD: Normocephalic. EYES: Normal reaction of pupils, equal size. NOSE: Clear with pink turbinates. THROAT: No erythema or exudates. NECK: No masses, no JVD. CHEST: No chest wall deformity. LUNGS: Equal air entry with faint crackles in the bases, diminished. CVS: S1 and S2 normal with no audible murmur, irregular rhythm. ABDOMEN: No hepatosplenomegaly, normal bowel sounds, no guarding or rigidity. SPINE: No scoliosis or deformity SKIN: No rashes CENTRAL NERVOUS SYSTEM: No focal deficits, tone is normal in all 4 extremities. EXTREMITIES: There is 1+ peripheral edema. No clubbing, no cyanosis. Peripheral pulses are intact. Results - Laboratory Findings CBC and BMP: 12/02/20 17:11 12/02/20 17:11 PT/INR, D-dimer PT 10.5 sec (9.0-12.0) 12/02/20 17:11 INR 1.0 (<1.2) 12/02/20 17:11 Abnormal lab findings: Abnormal Labs 12/02/20 12/02/20 17:11 17:11 WBC 11.9 H RBC 4.17 L MCV 104.1 H MCHC 30.0 L Neutrophils # 10.7 H Lymphocytes # 0.6 L Potassium 5.4 H Chloride 95 L Carbon Dioxide 38 H BUN 45 H Glucose 176 H ALT 50 H Assessment and Plan Assessment: 1 Generalized fatigue and weakness. Possibly related to ongoing atrial fibrillation, COPD, diastolic heart failure 2 Atrial fibrillation, anticoagulated with Eliquis 3 Acute on chronic hypoxemic/hypercapnic respiratory failure secondary to acute COPD exacerbation 4 Chronic obstructive pulmonary disease, oxygen dependent 5 Chronic and ongoing tobacco dependence 6 Acute on chronic systolic and diastolic congestive heart failure 7 Severe pulmonary hypertension 8 History of obstructive sleep apnea, not utilizing his home CPAP 9 History of melanoma with resection on his back 10 Hypertension 11 Hyperlipidemia 12 Hearing disorder Plan: The patient was seen and evaluated by Dr. James Chest x-ray, labs reviewed Continue bronchodilators, IV Solu-Medrol Continue IV diuretics to new Eliquis Requested home CPAP machine to be brought in for evaluation Educated regarding the importance of complete smoking cessation We will continue to follow and make further recommendations based on his clinical status I, the cosigning physician, performed a history & physical examination of the patient. Lungs sounds faint crackles in the posterior bases, diminished. Maintaining good O2 saturations in the 90s on 4 L/m per nasal cannula. I discussed the assessment and plan of care with my nurse practitioner, Irina Vidal. I attest to the above consult patient as dictated by her. Time with Patient: Greater than 30
[2020-12-03 20:09] LABS: Glucose,Whole Blood 203 mg/dL (75-99)
[2020-12-03] MEDS: INSULIN ASPART (NovoLOG) 100 UNIT/ML VIAL SQ SCH (20:51)
[2020-12-03] MEDS ORDERED: ALPRAZolam 0.5 MG TAB PO STA (22:33)
[2020-12-03] MEDS ORDERED: METOPROLOL TARTRATE 5 MG/5 ML VIAL IVP PRN (22:51)
[2020-12-03] MEDS ORDERED: methylPREDNISolone SOD SUCCI 40 MG/ML 1 ML VIAL ONE (23:59)
[2020-12-03] MEDS ORDERED: IPRATROPIUM-ALBUTEROL 3 ML NEB ONE (23:59)
[2020-12-04] MEDS: IPRATROPIUM-ALBUTEROL 3 ML NEB INHALATION SCH ×6 (00:18→20:51)
[2020-12-04] MEDS: INSULIN ASPART (NovoLOG) 100 UNIT/ML VIAL SQ SCH ×4 (06:06→20:35)
[2020-12-04 06:09] LABS: Glucose,Whole Blood 115 mg/dL (75-99)
[2020-12-04] MEDS: methylPREDNISolone SOD SUCCI 40 MG/ML 1 ML VIAL IV SCH ×4 (06:17→22:57)
[2020-12-04] MEDS: MIDODRINE 5 MG TAB PO SCH (06:17)
[2020-12-04] MEDS: APIXABAN 5 MG TAB PO SCH ×2 (08:08→20:35)
[2020-12-04] MEDS: AMIODARONE 200 MG TAB PO SCH ×2 (08:08→20:35)
[2020-12-04] MEDS: GABAPENTIN 400 MG CAP PO SCH ×2 (08:09→20:35)
[2020-12-04] MEDS: FUROSEMIDE 10 MG/ML 4 ML VIAL IV SCH (08:09)
[2020-12-04] MEDS: ARTIFICIAL TEARS-HYPROMELLOSE DROPS 15 ML BTL BOTH EYES SCH ×4 (08:09→20:36)
[2020-12-04] MEDS: METOPROLOL TARTRATE 25 MG TAB PO SCH ×2 (08:10→16:39)
[2020-12-04 09:18] LABS: Basophils % (A) 0 %; Eosinophils % (A) 0 %; HCT 42.4 % (39.0-53.0); HGB 13.1 gm/dL (13.0-17.5); Hypochromasia Slight; Lymphocytes # (A) 0.7 k/uL (1.0-4.8); Lymphocytes % (A) 4 %; MCH 31.9 pg (25.0-35.0); MCHC 30.9 g/dL (31.0-37.0); MCV 103.1 fL (80.0-100.0); Macrocytosis Slight; Monocytes # (A) 0.5 k/uL (0-1.0); Monocytes % (A) 3 %; Neutrophils # (A) 17.4 k/uL (1.3-7.7); Neutrophils % (A) 93 %; Platelet Count 232 k/uL (150-450); RBC 4.11 m/uL (4.30-5.90); RDW 12.9 % (11.5-15.5); WBC 18.7 k/uL (3.8-10.6)
[2020-12-04 09:35] LABS: Potassium 4.6 mmol/L (3.5-5.1)
[2020-12-04 11:49] LABS: Glucose,Whole Blood 195 mg/dL (75-99)
--- NOTE | 2020-12-04 14:18 | P.PN ---
Subjective This is a pleasant 74-year-old male past medical history significant for hypertension, non obstructive coronary artery disease, dyslipidemia, and COPD, obstructive sleep apnea uses CPAP, former etoh, nicotine dependence. He follows in the office with Dr. Rodgers. We have been asked to see in consultation for congestive heart failure. Patient recently admitted to the hospital on for newly diagnosed atrial fibrillation. At that time patient was having symptoms of feeling tired, fatigued and no energy. He also had increased shortness of breath with exertion for 2-3 weeks that progressively getting worse. He presents to appointment with Dr. Rodgers on 11/25/20, he was tachycardic and EKG was performed and was found to be in atrial fibrillation with rapid ventricular response and was sent to the emergency department. Echocardiogram left ventricular systolic function is mildly impaired with an EF of 45-50%, right ventricle is moderately to severely enlarged, mild mitral regurgitation, moderate to severe tricuspid regurgitation, severe pulmonary hypertension with an RVSP of 65.9 mmHg. He was initiated on IV Lasix 40 mg twice a day, amiodarone 400 mg twice a day, metoprolol titrate 75 mg 3 times a day and Eliquis 2.5mg BI D. His kidney function worsened and his IV diuretics stopped. Patient was stabilized, seem to improve and was discharged home. However, over the past 2 days he has been feeling worse. He states he started feeling short short of breath, lightheaded and just not feeling well. He also endorses having CPAP issues and not having the right CPAP for home. Denies chest pain, palpitations. Denies history of diabetes, stroke, [place]. DIAGNOSTICS EKG reveals atrial fibrillation heart rate 104. Prior EKG in the office in 2019 patient was in sinus rhythm Most recent stress test with Lexiscan 09/2018 which was negative for reversible ischemia Cardiac catheterization history includes catheterization 02/2019 which revealed minimal CAD, 50% lesion in the distal left circumflex Telemetry tracings indicate patient in atrial fibrillation with rapid ventricular response heart rate 100-120s Chest xray reveals small pleural effusions. Mild pulmonary congestion which is unchanged compared to prior chest x-ray Laboratory reviewed, WBC 18.7, hemoglobin 13.1, platelets 232, sodium 134, potassium 4.6, BUN 49, serum creatinine 1.4, magnesium 2.0, troponin negative 1 Current home medications include Toprol titrate 75 mg 2 times a day, Eliquis 5 mg twice a day, amiodarone taper. PHYSICAL EXAMINATION CONSTITUTIONAL: No acute distress HEENT: Head is normocephalic. No JVD. No carotid bruit. CHEST EXAMINATION: Lungs crackles in the bases bilaterally No chest wall tenderness is noted on palpation or with deep breathing. HEART EXAMINATION: Irregular tachycardic rate and rhythm. S1, S2 heard. Systolic murmur noted left sternal border ABDOMEN: Soft, nontender. Positive bowel sounds. EXTREMITIES: 2+ peripheral pulses, 1+ bilateral lower extremity extremity edema and no calf tenderness. NEUROLOGIC EXAMINATION: Patient is awake, alert and oriented x3. ASSESSMENT Shortness of breath, most likely multifactorial due to atrial fibrillation with RVR, JAMEY with difficulty using CPAP device at home, and COPD. Paroxysmal atrial fibrillation with rapid ventricular response - [id number] score 3 on Eliquis Acute systolic heart failure- mildly impaired EF 45-50% Severe pulmonary hypertension Hypertension Nonobstructive coronary artery disease Dyslipidemia COPD Objective sleep apnea Chronic nicotine dependence PLAN Will continue patient's home cardiac medications amiodarone 200mg BID, Eliquis, metoprolol tartrate Continue Lasix 40mg BID Will plan for [facility] cardioverison with Dr. Rodgers tomorrow 12/05/20, Patient is agreement in the procedure. I have discussed the risks, benefits and alternative therapies for the above-mentioned procedure and for both sedation/analgesia as they pertain to this patient. The patient has indicated understanding and acceptance of the risks and procedures discussed. Questions have been answered appropriately and he is agreeable to move forward with the above-stated procedure. Further recommendations based on clinical course Nurse Practitioner note has been reviewed, I agree with a documented findings and plan of care. Patient was seen and examined. Objective - Vital Signs Vital signs: Vital Signs Temp 98.1 F 12/04/20 04:00 Pulse 55 L 12/04/20 04:25 Resp 16 12/04/20 04:25 BP 123/65 12/04/20 04:00 Pulse Ox 98 12/04/20 04:00 Intake & Output 12/03/20 12/04/20 12/04/20 18:59 06:59 18:59 Intake Total 760 Output Total 900 800 Balance -140 -800 Weight 136.078 kg 137.8 kg Intake: Oral 760 Output: Urine 900 800 Other: Voiding Method Urinal Urinal # Voids 400 - Labs CBC & Chem 7: 12/04/20 08:38 12/04/20 08:38 Labs: Abnormal Lab Results - Last 24 Hours (Table) 12/03/20 12/04/20 Range/Units 20:08 06:05 POC Glucose (mg/dL) 203 H 115 H (75-99) mg/dL
--- NOTE | 2020-12-04 14:34 | P.PN ---
Subjective Progress Note Date: 12/04/20 This is a very pleasant 74-year-old gentleman who follows at the [facility] for his primary care needs. He has a history of hearing disorder, hyperlipidemia, hypertension, osteoarthritis, kidney cancer in 2006, macular degeneration, melanoma removed from his back daily alcohol use, history of marijuana use. He also has chronic and ongoing tobacco dependence and oxygen dependent chronic obstructive pulmonary disease and had previously followed with a filling machine tender that he was not liking and is scheduled to see Dr. Ware in our office next month. He also has obstructive sleep apnea but not utilizing his home CPAP. He has only been on a Ventolin rescue inhaler. He was recently hospitalized for atrial fibrillation with a rapid ventricular response and fluid volume overload. He was discharged home on amiodarone, Eliquis, beta blockers. Prednisone taper for COPD. He was just discharged home on 12/01/2020 and return to the emergency room on 12/02/2020 with complaints of generalized weakness, fatigue, increasing edema of the lower extremities. He was short of breath. Chest x-ray revealed evidence of small bilateral pleural effusions with some mild pulmonary congestion consistent with minimal heart failure. He is seen today in consultation in the emergency room. He is currently sitting up on the stretcher. Awake and alert in no acute distress. He states he just has general overall weakness and fatigue. Short of breath with minimal activity. He is maintaining O2 saturations in the mid 90s on 4 L/m per nasal cannula. He is a febrile. Slightly tachycardic. Remains in atrial fibrillation. White count 11.9. Hemoglobin 13.0. Sodium 138. Potassium 5.4. Creatinine 1.21. Troponins negative 3. ProBNP 6450. Barbosa virus not detected. He's been initiated on DuoNeb inhalations, IV Solu-Medrol, IV diuretics. Anticoagulated with Eliquis. 12/04/2020, the patient is doing well perthe complaints of shortness of breath compared to yesterday. Still has significant amount of edema in lower extremity although improved compared to yesterday. He has a single kidney. His chronic kidney disease. His Lasix has been switched to oral 40 mg by mouth twice a day. He is in a negative fluid balance of at least 1 L over the past 24 hours. He remains in atrial fibrillation. He is being considered for cardioversion. He is on amiodarone, beta blockers, Eliquis. He is also on IV Solu-Medrol regarding COPD exacerbation in combination with bronchodilators. He is cur rently on oxygen 40s per minute nasal cannula. No signs of any significant respiratory distress. His comorbidities are all noted. Objective - Vital Signs Vital signs: Vital Signs Temp 98.1 F 12/04/20 08:00 Pulse 85 12/04/20 14:00 Resp 18 12/04/20 14:00 BP 111/66 12/04/20 12:00 Pulse Ox 95 12/04/20 12:00 Intake & Output 12/03/20 12/04/20 12/04/20 18:59 06:59 18:59 Intake Total 760 360 Output Total 900 800 500 Balance -140 -800 -140 Weight 136.078 kg 137.8 kg Intake: Oral 760 360 Output: Urine 900 800 500 Other: Voiding Method Urinal Urinal # Voids 400 - Exam GENERAL EXAM: Alert, pleasant 74-year-old gentleman, on 4 L nasal cannula, fairly comfortable in no apparent distress. HEAD: Normocephalic. EYES: Normal reaction of pupils, equal size. NOSE: Clear with pink turbinates. THROAT: No erythema or exudates. NECK: No masses, no JVD. CHEST: No chest wall deformity. LUNGS: Equal air entry with faint crackles in the bases, diminished. CVS: S1 and S2 normal with no audible murmur, irregular rhythm. ABDOMEN: No hepatosplenomegaly, normal bowel sounds, no guarding or rigidity. SPINE: No scoliosis or deformity SKIN: No rashes CENTRAL NERVOUS SYSTEM: No focal deficits, tone is normal in all 4 extremities. EXTREMITIES: There is 1+ peripheral edema. No clubbing, no cyanosis. Peripheral pulses are intact. - Labs CBC & Chem 7: 12/04/20 08:38 12/04/20 08:38 Labs: Abnormal Lab Results - Last 24 Hours (Table) 12/03/20 12/04/20 12/04/20 Range/Units 20:08 06:05 08:38 WBC 18.7 H (3.8-10.6) k/uL RBC 4.11 L (4.30-5.90) m/uL MCV 103.1 H (80.0-100.0) fL MCHC 30.9 L (31.0-37.0) g/dL Neutrophils # 17.4 H (1.3-7.7) k/uL Lymphocytes # 0.7 L (1.0-4.8) k/uL Chloride (98-107) mmol/L Carbon Dioxide (22-30) mmol/L BUN (9-20) mg/dL Creatinine (0.66-1.25) mg/dL Glucose (74-99) mg/dL POC Glucose (mg/dL) 203 H 115 H (75-99) mg/dL 12/04/20 12/04/20 Range/Units 08:38 11:47 WBC (3.8-10.6) k/uL RBC (4.30-5.90) m/uL MCV (80.0-100.0) fL MCHC (31.0-37.0) g/dL Neutrophils # (1.3-7.7) k/uL Lymphocytes # (1.0-4.8) k/uL Chloride 86 L (98-107) mmol/L Carbon Dioxide 43 H* (22-30) mmol/L BUN 49 H (9-20) mg/dL Creatinine 1.46 H (0.66-1.25) mg/dL Glucose 177 H (74-99) mg/dL POC Glucose (mg/dL) 195 H (75-99) mg/dL Assessment and Plan Plan: 1 shortness of breath, multifactorial, associated related to COPD exacerbation, CHF/fluid overload/lower extremity edema and chronic atrial fibrillation. 2 Atrial fibrillation, anticoagulated with Eliquis 3 Acute on chronic hypoxemic/hypercapnic respiratory failure secondary to acute COPD exacerbation 4 Chronic obstructive pulmonary disease, oxygen dependent 5 Chronic and ongoing tobacco dependence 6 Acute on chronic systolic and diastolic congestive heart failure, the patient has a ejection fraction of 45-50%, mildly impaired and severe pulmonary hypertension. 7 Severe pulmonary hypertension 8 History of obstructive sleep apnea, not utilizing his home CPAP 9 History of melanoma with resection on his back 10 Hypertension 11 Hyperlipidemia 12 Hearing disorder 13 morbid obesity with a BMI of 43.6 14 acute kidney injury and the patient is known to have a single kidney with a previous nephrectomy Plan: Agree on reducing the dose of Lasix Monitor renal function Cardioversion in a.m. regarding atrial fibrillation Continue bronchodilators continue IV Solu-Medrol Monitor fluid balance We'll continue to follow. Also always encourage the patient to go back on utilizing his CPAP regarding his obstructive sleep apnea.
[2020-12-04 16:22] LABS: Glucose,Whole Blood 120 mg/dL (75-99)
[2020-12-04] MEDS: FUROSEMIDE 40 MG TAB PO SCH (16:26)
[2020-12-04] MEDS: METOPROLOL TARTRATE 50 MG TAB PO SCH ×2 (16:27→20:35)
[2020-12-04 20:29] LABS: Glucose,Whole Blood 146 mg/dL (75-99)
[2020-12-04] MEDS ORDERED: ALPRAZolam 0.5 MG TAB PO STA (22:54)
[2020-12-05] MEDS: IPRATROPIUM-ALBUTEROL 3 ML NEB INHALATION SCH ×6 (00:31→19:28)
[2020-12-05] MEDS: INSULIN ASPART (NovoLOG) 100 UNIT/ML VIAL SQ SCH ×4 (05:54→21:51)
[2020-12-05] MEDS: ARTIFICIAL TEARS-HYPROMELLOSE DROPS 15 ML BTL BOTH EYES SCH ×4 (05:54→21:54)
[2020-12-05] MEDS ORDERED: ALPRAZolam 0.5 MG TAB PO PRN (05:59)
[2020-12-05] MEDS: methylPREDNISolone SOD SUCCI 40 MG/ML 1 ML VIAL IV SCH ×2 (06:01→12:10)
[2020-12-05] MEDS: METOPROLOL TARTRATE 50 MG TAB PO SCH ×3 (06:01→21:51)
[2020-12-05] MEDS: APIXABAN 5 MG TAB PO SCH ×2 (06:01→21:51)
[2020-12-05] MEDS: GABAPENTIN 400 MG CAP PO SCH ×2 (06:01→21:51)
[2020-12-05] MEDS: AMIODARONE 200 MG TAB PO SCH (06:01)
[2020-12-05 06:13] LABS: Glucose,Whole Blood 122 mg/dL (75-99)
[2020-12-05 07:39] LABS: Calcium 8.8 mg/dL (8.4-10.2); Magnesium 2.2 mg/dL (1.6-2.3); Potassium 4.9 mmol/L (3.5-5.1)
--- NOTE | 2020-12-05 08:23 | P.PN ---
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 melanoma on the back, hearing difficulty , legally blind . he follows up with the [facility] , his cardiologsit is and battery inspector is , he was recently discharged 2 days ago for A. fib and RVR on the top of his acute systolic CHF and COPD exacerbation. However patient went home and had difficulty moving around, he dropped his oxygen and it was still short of breath. He missed 1 dose of metoprolol but resumed his medication of right toes 75 mg 3 times a day. also he was not restricting the flu. The patient returns to the hospital complaining of from dyspnea, fatigue and tiredness with bilateral leg swelling. Also is complaining of from a sharp left-sided chest pain that increased with movement and tenderness. His chest pain does not look cardiac in origin and is improved by the time I saw him His Vitas looks stable, he is saturating 93% on his home dose of 4 L oxygen nasal cannula, he was slightly tachycardic at 110-115. However in the morning his heart rate was 99. his labs showed mild leukocytosis of 11.9 since he is on prednisone. Potassium slightly up at 5.41 normal creatinine at 1.2. Rest of CBC, INR, BMP and liver enzymes were unremarkable. Troponins 3 less than 0.012 which is negative. emergency room he received Lasix 1, Solu-Medrol, bronchodilator. chest x-ray showing: Pulmonary congestion similar to last CXR EKG showing atrial fibrillation's with RVR at 104, QTC is 423 12/05/2020 Patient sitting in bed edge with no symptoms. No dyspnea or chest pain while at rest. Heart rate is controlled and 80s Creatinine went up to 1.4 and his IV Lasix switched to oral dose 40 mg twice a day Keep the patient on a fluid restriction Patient is also on Solu-Medrol 40 mg as well as Eliquis 5 mg Plan by cement mason for OSWALDO and cardioversion tomorrow Objective - Vital Signs Vital signs: Vital Signs Temp 98.4 F 12/04/20 15:51 Pulse 104 H 12/04/20 16:39 Resp 18 12/04/20 15:51 BP 98/58 12/04/20 15:51 Pulse Ox 94 L 12/04/20 15:51 Intake & Output 12/03/20 12/04/20 12/04/20 18:59 06:59 18:59 Intake Total 760 360 Output Total 467 677 9003 Balance -140 -800 -1140 Weight 136.078 kg 137.8 kg Intake: Oral 760 360 Output: Urine 524 028 8948 Other: Voiding Method Urinal Urinal # Voids 400 - Exam GENERAL: The patient is alert and oriented x3, not in any acute distress.obese HEENT: Pupils are round and equally reacting to light. EOMI. No scleral icterus. No conjunctival pallor. Normocephalic, atraumatic. No pharyngeal erythema. No thyromegaly. CARDIOVASCULAR: S1 and S2 present. No murmurs, rubs, or gallops. PULMONARY: Chest is clear to auscultation, no wheezing or crackles. ABDOMEN: Soft, nontender, nondistended, normoactive bowel sounds. No palpable organomegaly. MUSCULOSKELETAL: No joint swelling or deformity. -EXTREMITIES: No cyanosis, clubbing, or. Bilateral leg edema NEUROLOGICAL: Gross neurological examination did not reveal any focal deficits. SKIN: No rashes. no petechiae. - Labs CBC & Chem 7: 12/04/20 08:38 12/05/20 06:36 Labs: Abnormal Lab Results - Last 24 Hours (Table) 12/03/20 12/04/20 12/04/20 Range/Units 20:08 06:05 08:38 WBC 18.7 H (3.8-10.6) k/uL RBC 4.11 L (4.30-5.90) m/uL MCV 103.1 H (80.0-100.0) fL MCHC 30.9 L (31.0-37.0) g/dL Neutrophils # 17.4 H (1.3-7.7) k/uL Lymphocytes # 0.7 L (1.0-4.8) k/uL Chloride (98-107) mmol/L Carbon Dioxide (22-30) mmol/L BUN (9-20) mg/dL Creatinine (0.66-1.25) mg/dL Glucose (74-99) mg/dL POC Glucose (mg/dL) 203 H 115 H (75-99) mg/dL 12/04/20 12/04/20 12/04/20 Range/Units 08:38 11:47 16:21 WBC (3.8-10.6) k/uL RBC (4.30-5.90) m/uL MCV (80.0-100.0) fL MCHC (31.0-37.0) g/dL Neutrophils # (1.3-7.7) k/uL Lymphocytes # (1.0-4.8) k/uL Chloride 86 L (98-107) mmol/L Carbon Dioxide 43 H* (22-30) mmol/L BUN 49 H (9-20) mg/dL Creatinine 1.46 H (0.66-1.25) mg/dL Glucose 177 H (74-99) mg/dL POC Glucose (mg/dL) 195 H 120 H (75-99) mg/dL Assessment and Plan Assessment: Acute on chronic systolic CHF, ejection fraction 45-50% Acute COPD exacerbation Deconditioning new onset Atrial fibrillation with RVR moderate to severe tricuspid regurgitation Severe pulmonary hypertension hyperlipidemia hypertension nicotine dependance osteoarthritis emphysemia and copd on chroinc oxygen use at home (4 L/M) left eye detached retina, 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 Continue with steroids and bronchodilator. Start Lasix 40 mg twice daily, at midodrine to help blood pressure Monitor electrolytes and creatinine Cardiology and pulmonary team consult OSWALDO and cardioversion in a.m. Probably patient will need placement to ECF for rehab, he is from the OR system and office Labs and medication were reviewed.. Continue same treatment. Continue with symptomatic treatment. Resume home medication. Monitor lytes and vitals. DVT and GI prophylaxis. Further recommendationsas per clinical course of the patient DVT prophylaxis: Eliquis GI Prophylaxis: Pepcid PT/OT: Pending Prognosis is guarded
[2020-12-05] MEDS: FUROSEMIDE 40 MG TAB PO SCH ×2 (08:27→16:54)
[2020-12-05 08:33] LABS: Basophils % (A) 0 %; Eosinophils % (A) 0 %; HCT 44.4 % (39.0-53.0); HGB 13.9 gm/dL (13.0-17.5); Hypochromasia Slight; Lymphocytes # (A) 0.8 k/uL (1.0-4.8); Lymphocytes % (A) 5 %; MCH 31.9 pg (25.0-35.0); MCHC 31.2 g/dL (31.0-37.0); MCV 102.3 fL (80.0-100.0); Macrocytosis Slight; Mean Platelet Volume 7.8; Monocytes # (A) 0.6 k/uL (0-1.0); Monocytes % (A) 4 %; Neutrophils % (A) 91 %; Platelet Count 244 k/uL (150-450); RBC 4.34 m/uL (4.30-5.90); RDW 13.3 % (11.5-15.5); WBC 16.6 k/uL (3.8-10.6)
[2020-12-05] MEDS ORDERED: LACTATED RINGERS 1,000 ML IV ONE ×2 (09:22)
[2020-12-05] MEDS ORDERED: PROPOFOL 10 MG/ML 20 ML VIAL IV ONE (09:32)
[2020-12-05 10:40] VITALS: RESP 20
[2020-12-05 11:48] LABS: Glucose,Whole Blood 174 mg/dL (75-99)
--- NOTE | 2020-12-05 12:06 | ECHOT ---
TRANSESOPHAGEAL ECHOCARDIOGRAM DATE OF SERVICE: December 05, 2020 PERFORMING PHYSICIAN: Manfred Rodgers MD. PROCEDURE PERFORMED: Transesophageal echocardiogram. INDICATION: Rule out left atrial appendage thrombus before cardioversion. COMPLICATION: None. LEVEL OF SEDATION: The procedure was performed using deep sedation and using propofol with [employer] in the room. PROCEDURE DESCRIPTION: After obtaining an informed consent, the patient was brought to the recovery room. The patient was turned into left lateral position. Pulse oximetry and heart rate monitors were attached the patient. Subsequently, the patient was sedated using propofol. After that, the transesophageal echocardiogram probe was advanced through the bite guard to the mid esophageal where 2D echocardiogram images as well as color Doppler images of various cardiac structures were obtained. Left atrial appendage thrombus was ruled out. The procedure was completed without any complication. FINDINGS: The left ventricular dimension appeared to be within normal limits. Left ventricular systolic function appeared to be mildly impaired with EF around 45%. Right ventricle appeared to be mildly dilated. The left atrium and right atrium are severely dilated. The left atrial appendage appeared to be free from any thrombus. The aortic valve is trileaflet valve and seems to be mildly thickened and calcified without stenosis with trace insufficiency. The mitral valve seems to be mildly thickened with mild mitral regurgitation. There was moderate tricuspid regurgitation seen. The pulmonary artery systolic pressure was not calculated. CONCLUSION: 1. Mildly impaired left ventricular systolic function with EF of 45%. 2. Dilated right ventricle with normal function. 3. Severe biatrial enlargement. 4. Intact interatrial septum. 5. Intact left atrial appendage without any evidence of thrombus. 6. Aortic sclerosis without stenosis with trace insufficiency. 7. Thickened mitral valve leaflets with mild mitral regurgitation. 8. Moderate tricuspid regurgitation. 9. No evidence of pericardial effusion. MMODL / IJN: [id number] /
--- NOTE | 2020-12-05 12:10 | CE ---
CARDIAC ELECTROPHYSIOLOGY REPORT DATE OF SERVICE: December 02, 2020. PERFORMING PHYSICIAN: Manfred Rodgers MD. PROCEDURE PERFORMED: Successful cardioversion of atrial fibrillation to normal sinus mechanism using 200 joules on first attempt. INDICATION: Atrial fibrillation was difficult to control on maximized medical treatment. PROCEDURE DESCRIPTION: After OSWALDO was performed and intracardiac thrombus was ruled out, we pursued cardioversion. The patient was cardioverted from atrial fibrillation to normal sinus mechanism using 200 joules on first attempt. CONCLUSION: Successful cardioversion of atrial fibrillation to normal sinus mechanism using 200 joules on first attempt. POSTPROCEDURE MANAGEMENT: 1. Continue anticoagulation. 2. Follow up with the patient. MMODL / IJN: [id number] /
[2020-12-05] MEDS ORDERED: FUROSEMIDE 10 MG/ML 4 ML VIAL IV SCH (13:15)
--- NOTE | 2020-12-05 14:05 | P.PN ---
Subjective Progress Note Date: 12/05/20 This is a very pleasant 74-year-old gentleman who follows at the [facility] for his primary care needs. He has a history of hearing disorder, hyperlipidemia, hypertension, osteoarthritis, kidney cancer in 2006, macular degeneration, melanoma removed from his back daily alcohol use, history of marijuana use. He also has chronic and ongoing tobacco dependence and oxygen dependent chronic obstructive pulmonary disease and had previously followed with a manager of network that he was not liking and is scheduled to see Dr. Ware in our office next month. He also has obstructive sleep apnea but not utilizing his home CPAP. He has only been on a Ventolin rescue inhaler. He was recently hospitalized for atrial fibrillation with a rapid ventricular response and fluid volume overload. He was discharged home on amiodarone, Eliquis, beta blockers. Prednisone taper for COPD. He was just discharged home on 12/01/2020 and return to the emergency room on 12/02/2020 with complaints of generalized weakness, fatigue, increasing edema of the lower extremities. He was short of breath. Chest x-ray revealed evidence of small bilateral pleural effusions with some mild pulmonary congestion consistent with minimal heart failure. He is seen today in consultation in the emergency room. He is currently sitting up on the stretcher. Awake and alert in no acute distress. He states he just has general overall weakness and fatigue. Short of breath with minimal activity. He is maintaining O2 saturations in the mid 90s on 4 L/m per nasal cannula. He is a febrile. Slightly tachycardic. Remains in atrial fibrillation. White count 11.9. Hemoglobin 13.0. Sodium 138. Potassium 5.4. Creatinine 1.21. Troponins negative 3. ProBNP 6450. Barbosa virus not detected. He's been initiated on DuoNeb inhalations, IV Solu-Medrol, IV diuretics. Anticoagulated with Eliquis. 12/04/2020, the patient is doing well perthe complaints of shortness of breath compared to yesterday. Still has significant amount of edema in lower extremity although improved compared to yesterday. He has a single kidney. His chronic kidney disease. His Lasix has been switched to oral 40 mg by mouth twice a day. He is in a negative fluid balance of at least 1 L over the past 24 hours. He remains in atrial fibrillation. He is being considered for cardioversion. He is on amiodarone, beta blockers, Eliquis. He is also on IV Solu-Medrol regarding COPD exacerbation in combination with bronchodilators. He is cur rently on oxygen 40s per minute nasal cannula. No signs of any significant respiratory distress. His comorbidities are all noted. 12/05/2020 on seeing the patient for a follow-up. The patient underwent a OSWALDO cardioversion today. The OSWALDO showed mild impairment of LV function with an ejection fraction of 45%.. Severely dilated RV, biatrial enlargement and no evidence of any intracardiac thrombus. The patient underwent cardioversion utilizing 200 J and he converted back into normal sinus mechanism. Anti- coagulation was resumed. Clinically is doing well. He is sitting up on a chair. He is still being diuresed with IV Lasix. He is receiving Lasix at a dose of 40 mg by mouth 100 daily basis. Fluid balance has been -1.5 L over the past 24 hours. In fact he diuresed another 1700 mL of urine today before. His kidney function is stable with a creatinine of 1.4. Noted the patient has only a single kidney and as such would not subject him to aggressive diuresis. Wasn't +16.6 hemoglobin 13.9. Objective - Vital Signs Vital signs: Vital Signs Temp 98.5 F 12/05/20 10:39 Pulse 58 L 12/05/20 11:50 Resp 20 12/05/20 11:50 BP 113/69 12/05/20 11:50 Pulse Ox 96 12/05/20 11:50 Intake & Output 12/04/20 12/05/20 12/05/20 18:59 06:59 18:59 Intake Total 600 280 Output Total 1500 600 200 Balance -900 -600 80 Weight 136 kg Intake: IV 100 Oral 600 180 Output: Urine 1500 600 200 Other: # Voids 1 - Exam GENERAL EXAM: Alert, pleasant 74-year-old gentleman, on 4 L nasal cannula, fairly comfortable in no apparent distress. HEAD: Normocephalic. EYES: Normal reaction of pupils, equal size. NOSE: Clear with pink turbinates. THROAT: No erythema or exudates. NECK: No masses, no JVD. CHEST: No chest wall deformity. LUNGS: Equal air entry with faint crackles in the bases, diminished. CVS: S1 and S2 normal with no audible murmur, irregular rhythm. ABDOMEN: No hepatosplenomegaly, normal bowel sounds, no guarding or rigidity. SPINE: No scoliosis or deformity SKIN: No rashes CENTRAL NERVOUS SYSTEM: No focal deficits, tone is normal in all 4 extremities. EXTREMITIES: There is 1+ peripheral edema. No clubbing, no cyanosis. Peripheral pulses are intact. - Labs CBC & Chem 7: 12/05/20 06:36 12/05/20 06:36 Labs: Abnormal Lab Results - Last 24 Hours (Table) 12/04/20 12/04/20 12/05/20 Range/Units 16:21 20:27 05:57 WBC (3.8-10.6) k/uL MCV (80.0-100.0) fL Neutrophils # (1.3-7.7) k/uL Lymphocytes # (1.0-4.8) k/uL Chloride (98-107) mmol/L Carbon Dioxide (22-30) mmol/L BUN (9-20) mg/dL Creatinine (0.66-1.25) mg/dL Glucose (74-99) mg/dL POC Glucose (mg/dL) 120 H 146 H 122 H (75-99) mg/dL 12/05/20 12/05/20 12/05/20 Range/Units 06:36 06:36 11:46 WBC 16.6 H (3.8-10.6) k/uL MCV 102.3 H (80.0-100.0) fL Neutrophils # 15.0 H (1.3-7.7) k/uL Lymphocytes # 0.8 L (1.0-4.8) k/uL Chloride 85 L (98-107) mmol/L Carbon Dioxide 44 H* (22-30) mmol/L BUN 54 H (9-20) mg/dL Creatinine 1.49 H (0.66-1.25) mg/dL Glucose 126 H (74-99) mg/dL POC Glucose (mg/dL) 174 H (75-99) mg/dL Assessment and Plan Plan: 1 shortness of breath, multifactorial, associated related to COPD exacerbation, CHF/fluid overload/lower extremity edema and chronic atrial fibrillation. 2 Atrial fibrillation, anticoagulated with Eliquis, the patient is post OSWALDO, post cardioversion and currently in a normal sinus mechanism. 3 Acute on chronic hypoxemic/hypercapnic respiratory failure secondary to acute COPD exacerbation 4 Chronic obstructive pulmonary disease, oxygen dependent 5 Chronic and ongoing tobacco dependence 6 Acute on chronic systolic and diastolic congestive heart failure, the patient has a ejection fraction of 45-50%, mildly impaired and severe pulmonary hyp ertension. 7 Severe pulmonary hypertension 8 History of obstructive sleep apnea, not utilizing his home CPAP 9 History of melanoma with resection on his back 10 Hypertension 11 Hyperlipidemia 12 Hearing disorder 13 morbid obesity with a BMI of 43.6 14 acute kidney injury and the patient is known to have a single kidney with a previous nephrectomy is stable at 1.4. Plan: Continue PO Lasix Monitor renal function Cardioversion completed Continue bronchodilators Stop the IV Solu-Medrol put the patient prednisone burst taper Patient to bring his CPAP machine from home for me to check and make the necessary adjustments Monitor fluid balance We'll continue to follow.
[2020-12-05 16:45] LABS: Glucose,Whole Blood 142 mg/dL (75-99)
[2020-12-05] MEDS ORDERED: IPRATROPIUM-ALBUTEROL 3 ML NEB INHALATION PRN (20:25)
[2020-12-05 20:26] LABS: Glucose,Whole Blood 188 mg/dL (75-99)
--- NOTE | 2020-12-05 21:14 | P.PN ---
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 melanoma on the back, hearing difficulty , legally blind . he follows up with the [facility] , his cardiologsit is and instructional developer is , he was recently discharged 2 days ago for A. fib and RVR on the top of his acute systolic CHF and COPD exacerbation. However patient went home and had difficulty moving around, he dropped his oxygen and it was still short of breath. He missed 1 dose of metoprolol but resumed his medication of right toes 75 mg 3 times a day. also he was not restricting the flu. The patient returns to the hospital complaining of from dyspnea, fatigue and tiredness with bilateral leg swelling. Also is complaining of from a sharp left-sided chest pain that increased with movement and tenderness. His chest pain does not look cardiac in origin and is improved by the time I saw him His Vitas looks stable, he is saturating 93% on his home dose of 4 L oxygen nasal cannula, he was slightly tachycardic at 110-115. However in the morning his heart rate was 99. his labs showed mild leukocytosis of 11.9 since he is on prednisone. Potassium slightly up at 5.41 normal creatinine at 1.2. Rest of CBC, INR, BMP and liver enzymes were unremarkable. Troponins 3 less than 0.012 which is negative. emergency room he received Lasix 1, Solu-Medrol, bronchodilator. chest x-ray showing: Pulmonary congestion similar to last CXR EKG showing atrial fibrillation's with RVR at 104, QTC is 423 12/04/2020 Patient sitting in bed edge with no symptoms. No dyspnea or chest pain while at rest. Heart rate is controlled and 80s Creatinine went up to 1.4 and his IV Lasix switched to oral dose 40 mg twice a day Keep the patient on a fluid restriction Patient is also on Solu-Medrol 40 mg as well as Eliquis 5 mg Plan by family psychologist for OSWALDO and cardioversion tomorrow 12/05/2020 Patient is doing well. No chest pain or dyspnea. He is status post cardioversion and his heart rate is under control now Metoprolol to 50 mg 3 times a day and amiodarone to 200 mg daily. Filler Leaf Cutter Long recommendation Continue with the Eliquis 5 mg I discussed the case with family psychologist, keep Lasix by mouth 40 mg twice daily Continue Solu-Medrol 40 mg He did very well with PT/OT. Patient couldn't walk 60 feet. Patient does not need to rehab and he can go home with home care. Possible discharge in 24 hours if remains stable per Filler Leaf Cutter Long who recommended to keep him one more day Objective - Vital Signs Vital signs: Vital Signs Temp 98.5 F 12/05/20 10:39 Pulse 58 L 12/05/20 11:50 Resp 20 12/05/20 11:50 BP 113/69 12/05/20 11:50 Pulse Ox 96 12/05/20 11:50 Intake & Output 12/04/20 12/05/20 12/05/20 18:59 06:59 18:59 Intake Total 600 280 Output Total 1500 600 200 Balance -900 -600 80 Weight 136 kg Intake: IV 100 Oral 600 180 Output: Urine 1500 600 200 Other: # Voids 1 - Exam GENERAL: The patient is alert and oriented x3, not in any acute distress.obese HEENT: Pupils are round and equally reacting to light. EOMI. No scleral icterus. No conjunctival pallor. Normocephalic, atraumatic. No pharyngeal erythema. No thyromegaly. CARDIOVASCULAR: S1 and S2 present. No murmurs, rubs, or gallops. PULMONARY: Chest is clear to auscultation, no wheezing or crackles. ABDOMEN: Soft, nontender, nondistended, normoactive bowel sounds. No palpable organomegaly. MUSCULOSKELETAL: No joint swelling or deformity. -EXTREMITIES: No cyanosis, clubbing, or. Bilateral leg edema NEUROLOGICAL: Gross neurological examination did not reveal any focal deficits. SKIN: No rashes. no petechiae. - Labs CBC & Chem 7: 12/05/20 06:36 12/05/20 06:36 Labs: Abnormal Lab Results - Last 24 Hours (Table) 12/04/20 12/04/20 12/05/20 Range/Units 16:21 20:27 05:57 WBC (3.8-10.6) k/uL MCV (80.0-100.0) fL Neutrophils # (1.3-7.7) k/uL Lymphocytes # (1.0-4.8) k/uL Chloride (98-107) mmol/L Carbon Dioxide (22-30) mmol/L BUN (9-20) mg/dL Creatinine (0.66-1.25) mg/dL Glucose (74-99) mg/dL POC Glucose (mg/dL) 120 H 146 H 122 H (75-99) mg/dL 12/05/20 12/05/20 12/05/20 Range/Units 06:36 06:36 11:46 WBC 16.6 H (3.8-10.6) k/uL MCV 102.3 H (80.0-100.0) fL Neutrophils # 15.0 H (1.3-7.7) k/uL Lymphocytes # 0.8 L (1.0-4.8) k/uL Chloride 85 L (98-107) mmol/L Carbon Dioxide 44 H* (22-30) mmol/L BUN 54 H (9-20) mg/dL Creatinine 1.49 H (0.66-1.25) mg/dL Glucose 126 H (74-99) mg/dL POC Glucose (mg/dL) 174 H (75-99) mg/dL Assessment and Plan Assessment: Acute on chronic systolic CHF, ejection fraction 45-50% Acute COPD exacerbation Recent onset Atrial fibrillation with RVR, status post cardioversion on 12/04 moderate to severe tricuspid regurgitation Severe pulmonary hypertension hyperlipidemia hypertension nicotine dependance osteoarthritis emphysemia and copd on chroinc oxygen use at home (4 L/M) left eye detached retina, 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 Continue with steroids and bronchodilator. Continue with Lasix 40 mg twice daily No dose of metoprolol and amiodarone. Filler Leaf Cutter Long Monitor electrolytes and creatinine Cardiology and pulmonary team consult Probably patient will need placement to ECF for rehab, he is from the [place] and [place] Labs and medication were reviewed.. Continue same treatment. Continue with symptomatic treatment. Resume home medication. Monitor lytes and vitals. DVT and GI prophylaxis. Further recommendations as per clinical course of the patient DVT prophylaxis: Eliquis GI Prophylaxis: Pepcid PT/OT: No need for rehab, continue with home health care upon discharge Possible discharge in 24 hours to 48 hours if he remains stable and improved
[2020-12-06 06:23] LABS: Glucose,Whole Blood 112 mg/dL (75-99)
[2020-12-06] MEDS: INSULIN ASPART (NovoLOG) 100 UNIT/ML VIAL SQ SCH ×2 (07:19→12:18)
[2020-12-06] MEDS: IPRATROPIUM-ALBUTEROL 3 ML NEB INHALATION SCH ×3 (08:04→15:48)
[2020-12-06 08:27] LABS: Basophils % (A) 0 %; Eosinophils % (A) 0 %; HGB 13.9 gm/dL (13.0-17.5); Hypochromasia Slight; Lymphocytes # (A) 0.8 k/uL (1.0-4.8); Lymphocytes % (A) 6 %; MCH 32.3 pg (25.0-35.0); MCHC 31.5 g/dL (31.0-37.0); MCV 102.8 fL (80.0-100.0); Macrocytosis Slight; Monocytes # (A) 0.9 k/uL (0-1.0); Monocytes % (A) 7 %; Neutrophils # (A) 12.1 k/uL (1.3-7.7); Neutrophils % (A) 86 %; Platelet Count 217 k/uL (150-450); RBC 4.28 m/uL (4.30-5.90); RDW 12.8 % (11.5-15.5)
[2020-12-06 08:41] LABS: Calcium 8.9 mg/dL (8.4-10.2); Magnesium 2.2 mg/dL (1.6-2.3); Potassium 5.3 mmol/L (3.5-5.1)
--- NOTE | 2020-12-06 08:57 | XR ---
EXAMINATION TYPE: XR chest 1V portable DATE OF EXAM: 12/06/2020 COMPARISON: 12/02/2020 HISTORY: Chest pain TECHNIQUE: Single frontal view of the chest is obtained. FINDINGS: There is no change in the mild diffuse interstitial opacity most likely reflecting mild in terstitial edema. Heart size is mildly prominent and there is a small to moderate right pleural effus ion. There is no pneumothorax. The osseous structures are intact there is been no significant interva l change since the prior study IMPRESSION: No change in the acute cardiopulmonary process most likely reflecting moderate CHF.
[2020-12-06] MEDS ORDERED: predniSONE 20 MG TAB PO SCH (09:00)
[2020-12-06] MEDS: ARTIFICIAL TEARS-HYPROMELLOSE DROPS 15 ML BTL BOTH EYES SCH ×2 (09:00→16:41)
[2020-12-06] MEDS: APIXABAN 5 MG TAB PO SCH (09:00)
[2020-12-06] MEDS: AMIODARONE 200 MG TAB PO SCH (09:00)
[2020-12-06] MEDS: FUROSEMIDE 40 MG TAB PO SCH (09:01)
[2020-12-06] MEDS: METOPROLOL TARTRATE 50 MG TAB PO SCH ×2 (09:01→16:42)
[2020-12-06] MEDS: GABAPENTIN 400 MG CAP PO SCH (09:01)
[2020-12-06 09:46] VITALS: TEMP 97.6
[2020-12-06] MEDS ORDERED: SODIUM POLYSTYRENE SULFONATE 30 GM/120 ML BOTTLE RECTAL ONE (12:00)
--- NOTE | 2020-12-06 12:02 | P.PN ---
Subjective Progress Note Date: 12/06/20 This is a very pleasant 74-year-old gentleman who follows at the [facility] for his primary care needs. He has a history of hearing disorder, hyperlipidemia, hypertension, osteoarthritis, kidney cancer in 2006, macular degeneration, melanoma removed from his back daily alcohol use, history of marijuana use. He also has chronic and ongoing tobacco dependence and oxygen dependent chronic obstructive pulmonary disease and had previously followed with a truck trailer mechanic that he was not liking and is scheduled to see Dr. Ware in our office next month. He also has obstructive sleep apnea but not utilizing his home CPAP. He has only been on a Ventolin rescue inhaler. He was recently hospitalized for atrial fibrillation with a rapid ventricular response and fluid volume overload. He was discharged home on amiodarone, Eliquis, beta blockers. Prednisone taper for COPD. He was just discharged home on 12/01/2020 and return to the emergency room on 12/02/2020 with complaints of generalized weakness, fatigue, increasing edema of the lower extremities. He was short of breath. Chest x-ray revealed evidence of small bilateral pleural effusions with some mild pulmonary congestion consistent with minimal heart failure. He is seen today in consultation in the emergency room. He is currently sitting up on the stretcher. Awake and alert in no acute distress. He states he just has general overall weakness and fatigue. Short of breath with minimal activity. He is maintaining O2 saturations in the mid 90s on 4 L/m per nasal cannula. He is a febrile. Slightly tachycardic. Remains in atrial fibrillation. White count 11.9. Hemoglobin 13.0. Sodium 138. Potassium 5.4. Creatinine 1.21. Troponins negative 3. ProBNP 6450. Barbosa virus not detected. He's been initiated on DuoNeb inhalations, IV Solu-Medrol, IV diuretics. Anticoagulated with Eliquis. 12/04/2020, the patient is doing well perthe complaints of shortness of breath compared to yesterday. Still has significant amount of edema in lower extremity although improved compared to yesterday. He has a single kidney. His chronic kidney disease. His Lasix has been switched to oral 40 mg by mouth twice a day. He is in a negative fluid balance of at least 1 L over the past 24 hours. He remains in atrial fibrillation. He is being considered for cardioversion. He is on amiodarone, beta blockers, Eliquis. He is also on IV Solu-Medrol regarding COPD exacerbation in combination with bronchodilators. He is cur rently on oxygen 40s per minute nasal cannula. No signs of any significant respiratory distress. His comorbidities are all noted. 12/05/2020 on seeing the patient for a follow-up. The patient underwent a OSWALDO cardioversion today. The OSWALDO showed mild impairment of LV function with an ejection fraction of 45%.. Severely dilated RV, biatrial enlargement and no evidence of any intracardiac thrombus. The patient underwent cardioversion utilizing 200 J and he converted back into normal sinus mechanism. Anti- coagulation was resumed. Clinically is doing well. He is sitting up on a chair. He is still being diuresed with IV Lasix. He is receiving Lasix at a dose of 40 mg by mouth 100 daily basis. Fluid balance has been -1.5 L over the past 24 hours. In fact he diuresed another 1700 mL of urine today before. His kidney function is stable with a creatinine of 1.4. Noted the patient has only a single kidney and as such would not subject him to aggressive diuresis. Wasn't +16.6 hemoglobin 13.9. 12/06/2020, the patient is being seen in follow-up. Doing well. Sitting up on a chair. Post cardioversion. He remains in sinus rhythm. Chest x-ray shows small bilateral pleural effusion and some mild interstitial edema. Aeration is improved. In terms of diuretics, he remains on Lasix 40 mg by mouth twice a day. He is making good urine output. His creatinine is stable at 1.4 with a mean of 55. Serum bicarbonate of 43. No other complaints otherwise for now. He remains on oxygen at 4 L per minute nasal cannula. Objective - Vital Signs Vital signs: Vital Signs Temp 97.6 F 12/06/20 08:00 Pulse 68 12/06/20 11:25 Resp 20 12/06/20 08:00 BP 131/88 12/06/20 08:00 Pulse Ox 92 L 12/06/20 08:00 Intake & Output 12/05/20 12/06/20 12/06/20 18:59 06:59 18:59 Intake Total 520 240 Output Total 300 525 Balance 220 -525 240 Weight 138.4 kg Intake: IV 100 Oral 420 240 Output: Urine 300 525 - Exam GENERAL EXAM: Alert, pleasant 74-year-old gentleman, on 4 L nasal cannula, fairly comfortable in no apparent distress. HEAD: Normocephalic. EYES: Normal reaction of pupils, equal size. NOSE: Clear with pink turbinates. THROAT: No erythema or exudates. NECK: No masses, no JVD. CHEST: No chest wall deformity. LUNGS: Equal air entry with faint crackles in the bases, diminished. CVS: S1 and S2 normal with no audible murmur, irregular rhythm. ABDOMEN: No hepatosplenomegaly, normal bowel sounds, no guarding or rigidity. SPINE: No scoliosis or deformity SKIN: No rashes CENTRAL NERVOUS SYSTEM: No focal deficits, tone is normal in all 4 extremities. EXTREMITIES: There is 1+ peripheral edema. No clubbing, no cyanosis. Peripheral pulses are intact. - Labs CBC & Chem 7: 12/06/20 07:28 12/06/20 07:28 Labs: Abnormal Lab Results - Last 24 Hours (Table) 12/05/20 12/05/20 12/06/20 Range/Units 16:43 20:24 06:22 WBC (3.8-10.6) k/uL RBC (4.30-5.90) m/uL MCV (80.0-100.0) fL Neutrophils # (1.3-7.7) k/uL Lymphocytes # (1.0-4.8) k/uL Potassium (3.5-5.1) mmol/L Chloride (98-107) mmol/L Carbon Dioxide (22-30) mmol/L BUN (9-20) mg/dL Creatinine (0.66-1.25) mg/dL Glucose (74-99) mg/dL POC Glucose (mg/dL) 142 H 188 H 112 H (75-99) mg/dL 12/06/20 12/06/20 Range/Units 07:28 07:28 WBC 14.0 H (3.8-10.6) k/uL RBC 4.28 L (4.30-5.90) m/uL MCV 102.8 H (80.0-100.0) fL Neutrophils # 12.1 H (1.3-7.7) k/uL Lymphocytes # 0.8 L (1.0-4.8) k/uL Potassium 5.3 H (3.5-5.1) mmol/L Chloride 85 L (98-107) mmol/L Carbon Dioxide 43 H* (22-30) mmol/L BUN 55 H (9-20) mg/dL Creatinine 1.41 H (0.66-1.25) mg/dL Glucose 100 H (74-99) mg/dL POC Glucose (mg/dL) (75-99) mg/dL Assessment and Plan Plan: 1 shortness of breath, multifactorial, associated related to COPD exacerbation, CHF/fluid overload/lower extremity edema and chronic atrial fibrillation. Patient is post cardioversion. He is diuresing well. Is less short of breath. Function remains stable. 2 Atrial fibrillation, anticoagulated with Eliquis, the patient is post OSWALDO, post cardioversion and currently in a normal sinus mechanism. 3 Acute on chronic hypoxemic/hypercapnic respiratory failure secondary to acute COPD exacerbation 4 Chronic obstructive pulmonary disease, oxygen dependent 5 Chronic and ongoing tobacco dependence 6 Acute on chronic systolic and diastolic congestive heart failure, the patient has a ejection fraction of 45-50%, mildly impaired and severe pulmonary hypertension. 7 Severe pulmonary hypertension 8 History of obstructive sleep apnea, not utilizing his home CPAP 9 History of melanoma with resection on his back 10 Hypertension 11 Hyperlipidemia 12 Hearing disorder 13 morbid obesity with a BMI of 43.6 14 acute kidney injury and the patient is known to have a single kidney with a previous nephrectomy is stable at 1.4. Plan: Continue PO Lasix Monitor renal function Cardioversion completed Continue bronchodilators Stop the IV Solu-Medrol put the patient prednisone burst taper The patient has a dreamstation APAP at the minimum pressure of 6 and pressure of 18, automatic setting. Machine was checked. This machine is currently on a recall. He needs to contact with a later stage he'll [facility] to [facility] replacement [facility]. We'll continue to follow.
[2020-12-06 12:10] LABS: Glucose,Whole Blood 86 mg/dL (75-99)
--- NOTE | 2020-12-06 12:44 | P.PN ---
Subjective This is a pleasant 74-year-old male past medical history significant for hypertension, non obstructive coronary artery disease, dyslipidemia, and COPD, obstructive sleep apnea uses CPAP, former etoh, nicotine dependence. He follows in the office with Dr. Rodgers. We have been asked to see in consultation for congestive heart failure. Patient recently admitted to the hospital on / for newly diagnosed atrial fibrillation. At that time patient was having symptoms of feeling tired, fatigued and no energy. He also had increased shortness of breath with exertion for 2-3 weeks that progressively getting worse. He presents to appointment with Dr. Rodgers on 11/25/20, he was tachycardic and EKG was performed and was found to be in atrial fibrillation with rapid ventricular response and was sent to the emergency department. Echocardiogram left ventricular systolic function is mildly impaired with an EF of 45-50%, right ventricle is moderately to severely enlarged, mild mitral regurgitation, moderate to severe tricuspid regurgitation, severe pulmonary hypertension with an RVSP of 65.9 mmHg. He was initiated on IV Lasix 40 mg twice a day, amiodarone 400 mg twice a day, metoprolol titrate 75 mg 3 times a day and Eliquis 2.5mg B ID. His kidney function worsened and his IV diuretics stopped. Patient was stabilized, seem to improve and was discharged home. However, over the past 2 days he has been feeling worse. He states he started feeling short short of breath, lightheaded and just not feeling well. He also endorses having CPAP issues and not having the right CPAP for home. Denies chest pain, palpitations. Denies history of diabetes, stroke, [place]. 12/06 Patient seen and examined. Patient states he feels much better since his cardioversion 12/05/2020. He states he was able to get better sleep. He has been diuresis with mild increased creatinine however appears at baseline. I'll hyperkalemia. Discussed better diet without as much salt intake. He was not on any water pills at home and we will stop his Lasix. He appears stable for discharge home today. DIAGNOSTICS EKG reveals atrial fibrillation heart rate 104. Prior EKG in the office in 2018 patient was in sinus rhythm Most recent stress test with Lexiscan 09/2018 which was negative for reversible ischemia Cardiac catheterization history includes catheterization 02/2019 which revealed minimal CAD, 50% lesion in the distal left circumflex Telemetry tracings indicate patient in atrial fibrillation with rapid ventricular response heart rate 100-120s Chest xray reveals small pleural effusions. Mild pulmonary congestion which is unchanged compared to prior chest x-ray Laboratory reviewed, WBC 18.7, hemoglobin 13.1, platelets 232, sodium 134, po tassium 4.6, BUN 49, serum creatinine 1.4, magnesium 2.0, troponin negative 1 Current home medications include Toprol titrate 75 mg 2 times a day, Eliquis 5 mg twice a day, amiodarone taper. PHYSICAL EXAMINATION CONSTITUTIONAL: No acute distress HEENT: Head is normocephalic. No JVD. No carotid bruit. CHEST EXAMINATION: Lungs crackles in the bases bilaterally No chest wall tenderness is noted on palpation or with deep breathing. HEART EXAMINATION: Regular rate and rhythm. S1, S2 heard. Systolic murmur noted left sternal border ABDOMEN: Soft, nontender. Positive bowel sounds. EXTREMITIES: 2+ peripheral pulses, 1+ bilateral lower extremity extremity edema and no calf tenderness. NEUROLOGIC EXAMINATION: Patient is awake, alert and oriented x3. ASSESSMENT Shortness of breath, most likely multifactorial due to atrial fibrillation with RVR, JAMEY with difficulty using CPAP device at home, and COPD. Paroxysmal atrial fibrillation with rapid ventricular response - [id number] score 3 on Eliquis, S/p CV 12/05, currently sinus rhythm Chronic systolic heart failure- mildly impaired EF 45-50% Severe pulmonary hypertension Hypertension Nonobstructive coronary artery disease Dyslipidemia COPD Objective sleep apnea Chronic nicotine dependence PLAN Will continue patient's home cardiac medications amiodarone 200mg BID, Eliquis, metoprolol tartrate Patient appears much improved since cardioversion. He states he is feeling better and sleeping better without as much shortness breath. May still be some component of his chronic COPD. Patient did have issues with overdiuresis and ac dewey kidney injury previously and we will stop Lasix. Stable for discharge home on amiodarone and beta arsh. Discussed importance of CPAP. Follow-up in office in 1 week. Lower extremity edema likely some component of venous insufficiency. Objective - Vital Signs Vital signs: Vital Signs Temp 97.6 F 12/06/20 08:00 Pulse 68 12/06/20 11:25 Resp 20 12/06/20 08:00 BP 131/88 12/06/20 08:00 Pulse Ox 92 L 07/31/21 08:00 Intake & Output 12/05/20 12/06/20 12/06/20 18:59 06:59 18:59 Intake Total 520 240 Output Total 300 525 Balance 220 -525 240 Weight 138.4 kg Intake: IV 100 Oral 420 240 Output: Urine 300 525 - Labs CBC & Chem 7: 12/06/20 07:28 12/06/20 07:28 Labs: Abnormal Lab Results - Last 24 Hours (Table) 12/05/20 12/05/20 12/06/20 Range/Units 16:43 20:24 06:22 WBC (3.8-10.6) k/uL RBC (4.30-5.90) m/uL MCV (80.0-100.0) fL Neutrophils # (1.3-7.7) k/uL Lymphocytes # (1.0-4.8) k/uL Potassium (3.5-5.1) mmol/L Chloride (98-107) mmol/L Carbon Dioxide (22-30) mmol/L BUN (9-20) mg/dL Creatinine (0.66-1.25) mg/dL Glucose (74-99) mg/dL POC Glucose (mg/dL) 142 H 188 H 112 H (75-99) mg/dL 12/06/20 12/06/20 Range/Units 07:28 07:28 WBC 14.0 H (3.8-10.6) k/uL RBC 4.28 L (4.30-5.90) m/uL MCV 102.8 H (80.0-100.0) fL Neutrophils # 12.1 H (1.3-7.7) k/uL Lymphocytes # 0.8 L (1.0-4.8) k/uL Potassium 5.3 H (3.5-5.1) mmol/L Chloride 85 L (98-107) mmol/L Carbon Dioxide 43 H* (22-30) mmol/L BUN 55 H (9-20) mg/dL Creatinine 1.41 H (0.66-1.25) mg/dL Glucose 100 H (74-99) mg/dL POC Glucose (mg/dL) (75-99) mg/dL
[2020-12-06 14:22] VITALS: BP 127/74
[2020-12-06 15:58] VITALS: PULSE 70
--- NOTE | 2020-12-07 00:17 | P.DS ---
Providers Date of admission: 12/02/20 19:33 Attending physician: Lakhwinder Stallworth Consults: 12/02/20 19:28 Consult Physician Routine Consulting Provider: Chris Ware Consult Reason/Comments: COPD exacerbation, chronic hypoxic respiratory failure Do you want consulting provider notified?: Yes, Notify in am Consult Physician Routine Consulting Provider: Manfred Rodgers Consult Reason/Comments: Heart failure exacerbation, history of afib Do you want consulting provider notified?: Already Contacted Primary care physician: [facility] Hospital Course: Diagnoses: Acute on chronic systolic CHF, ejection fraction 45-50% Acute COPD exacerbation Recent onset Atrial fibrillation with RVR, status post cardioversion on 12/04 moderate to severe tricuspid regurgitation Severe pulmonary hypertension hyperlipidemia hypertension nicotine dependance osteoarthritis emphysemia and copd on chroinc oxygen use at home (4 L/M) left eye detached retina, 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 melanoma on the back, hearing difficulty , legally blind . he follows up with [facility] , his cardiologsit is and hand plug shaper is , he was recently discharged 2 days ago for A. fib and RVR on the top of his acute systolic CHF and COPD exacerbation. However patient went home and had difficulty moving around, he dropped his oxygen and it was still short of breath. He missed 1 dose of metoprolol but resumed his medication of right toes 75 mg 3 times a day. So he [facility] the [facility] with similar symptoms. He was evaluated by oracle reports developer and hand plug shaper and he was treated with IV Solu-Medrol and switched to oral prednisone. Benefits Coordinator evaluated the patient, he underwent OSWALDO and cardioversion yesterday on 12/05 post procedure he felt better. Benefits Coordinator lowered his metoprolol 75 mg down to 50 mg 3 times a day. While keeping amiodarone 200 mg twice a day for 2 weeks and switch to once daily thereafter (patient has PRESCRIPTION provided for him including amiodarone and Eliquis from recent previous admission, the only new prescription provided for him is for metoprolol/Lopressor) patient was counseled extensively about this prescription on the day of discharge he denies chest pain or dyspnea. No abdominal pain. No change in urine or bowel habits. No fever Patient was cleared for discharge by cardiology and pulmonary teams Problems and management plan were discussed with the patient and he verbalized understanding and acceptance Patient was found stable and can be discharged home however he needs follow-up as an outpatient. Patient was instructed to follow up with PCP within [place] clinic within one week and patient agrees with the appointments made for him on 12/25. Also patient agrees with the appointments made for him with Dr. Ware on 12/[address] Kramer on 12/08 and states he will follow-up Physical exam -Gen: patient is a AAOx3, no distress. Obese CVS: S1-S2, RRR, no murmur Lungs: B/L CTA, no wheezing Abdomen: soft, no distention, no tenderness, positive bowel sounds -Extremity: 2+ bilateral pitting leg edema . No induration Time spent more than 35 minutes Patient Condition at Discharge: Serious Plan - Discharge Summary Discharge Rx Participant: No New Discharge Prescriptions: New Metoprolol Tartrate [Lopressor] 50 mg PO TID #90 tab Continue Vit C/E/Zn/Coppr/Lutein/Zeaxan [Preservision Areds 2 Softgel] 1 cap PO BID Albuterol Sulfate [Proair Hfa] 2 puff INHALATION RT-Q6H PRN PRN Reason: Shortness Of Breath Gabapentin [Neurontin] 400 mg PO BID Lidocaine 4% Cream [Lmx 4] 1 applic TOPICAL BID PRN PRN Reason: knee pain Escitalopram [Lexapro] 10 mg PO DAILY Dextran 70/Hypromellose [Lubricating Tears 0.1-0.3% Drp] 1 drop BOTH EYES QID Albuterol Nebulized [Ventolin Nebulized] 2.5 mg INHALATION RT-QID PRN PRN Reason: Shortness Of Breath Apixaban [Eliquis] 5 mg PO BID 30 Days #60 tab Amiodarone [Cordarone] See Taper PO DIRECTED predniSONE See Taper PO DIRECTED Discontinued Metoprolol Tartrate [Lopressor] 75 mg PO TID #90 tablet Discharge Medication List Vit C/E/Zn/Coppr/Lutein/Zeaxan [Preservision Areds 2 Softgel] 1 cap PO BID 08/03/17 [History] Albuterol Sulfate [Proair Hfa] 2 puff INHALATION RT-Q6H PRN 02/23/19 [History] Gabapentin [Neurontin] 400 mg PO BID 02/23/19 [History] Albuterol Nebulized [Ventolin Nebulized] 2.5 mg INHALATION RT-QID PRN 11/25/20 [History] Dextran 70/Hypromellose [Lubricating Tears 0.1-0.3% Drp] 1 drop BOTH EYES QID 11/25/20 [History] Escitalopram [Lexapro] 10 mg PO DAILY 11/25/20 [History] Lidocaine 4% Cream [Lmx 4] 1 applic TOPICAL BID PRN 11/25/20 [History] Apixaban [Eliquis] 5 mg PO BID 30 Days #60 tab 11/26/20 [Rx] Amiodarone [Cordarone] See Taper PO DIRECTED 12/02/20 [History] predniSONE See Taper PO DIRECTED 12/02/20 [History] Metoprolol Tartrate [Lopressor] 50 mg PO TID #90 tab 12/05/20 [Rx] Follow up Appointment(s)/Referral(s): Manfred Rodgers MD [STAFF PHYSICIAN] - 12/08/20 1:15 pm Chris Ware DO [Doctor of Osteopathic Medicine] - 12/08/20 11:15 am [facility],Clinic [Primary Care Provider] - 12/25/20 3:00 pm Activity/Diet/Wound Care/Special Instructions: [facility] is setting up HomeCare. Heart healthy diet, also low potassium , low sodium diet limit potassium rich food eg no banana, no orange Activity is restricted until you see your doctor [facility] about your Eli[facility] refill after 1 month. Find out if you have any co-pays a head of time you will need to contact the [place] to obtain a replacement CPAP machine. Discharge Disposition: HOME WITH HOME HEALTH SERVICES
== END 2020-12-06 17:23 | disposition home health service (06) | DRG 291 ==
LOC: EC 16:32 → 5NMEDONC 19:33 → 3SCARD 12-03 16:04
PROVIDERS: ADMIT Hospitalist; ATTEND Hospitalist
PROC: 5A2204Z Restoration of Cardiac Rhythm, Single (ICD-10-PCS; principal; 2020-12-06)
PROC: B246ZZ4 Ultrasonography of Right and Left Heart, Transesophageal (ICD-10-PCS; 2020-12-06)
PROC: 3E0F7SF Introduction of Other Gas into Respiratory Tract, Via Natural or Artificial Opening (ICD-10-PCS; 2020-12-06)
DX: I11.0 Hypertensive heart disease with heart failure (principal); J96.21 Acute and chronic respiratory failure with hypoxia; J96.22 Acute and chronic respiratory failure with hypercapnia; I48.19 Other persistent atrial fibrillation; Z68.41 Body mass index [BMI] 40.0-44.9, adult; I50.43 Acute on chronic combined systolic (congestive) and diastolic (congestive) heart failure; I42.9 Cardiomyopathy, unspecified; D72.829 Elevated white blood cell count, unspecified; J43.9 Emphysema, unspecified; E78.5 Hyperlipidemia, unspecified; E87.5 Hyperkalemia; I07.1 Rheumatic tricuspid insufficiency; F17.210 Nicotine dependence, cigarettes, uncomplicated; E66.01 Morbid (severe) obesity due to excess calories; I13.0 Hypertensive heart and chronic kidney disease with heart failure and stage 1 through stage 4 chronic kidney disease, or unspecified chronic kidney disease; N18.9 Chronic kidney disease, unspecified; R00.0 Tachycardia, unspecified; G47.33 Obstructive sleep apnea (adult) (pediatric); H35.3210 Exudative age-related macular degeneration, right eye, stage unspecified; H54.8 Legal blindness, as defined in USA; H91.90 Unspecified hearing loss, unspecified ear; I25.10 Atherosclerotic heart disease of native coronary artery without angina pectoris; I27.20 Pulmonary hypertension, unspecified; M19.90 Unspecified osteoarthritis, unspecified site; Z20.822 Contact with and (suspected) exposure to COVID-19; Z79.01 Long term (current) use of anticoagulants; Z79.899 Other long term (current) drug therapy; Z98.41 Cataract extraction status, right eye; Z85.820 Personal history of malignant melanoma of skin; Z97.4 Presence of external hearing-aid; Z85.528 Personal history of other malignant neoplasm of kidney; Z99.81 Dependence on supplemental oxygen; Z88.8 Allergy status to other drugs, medicaments and biological substances; Z98.42 Cataract extraction status, left eye; Z71.6 Tobacco abuse counseling
CPT/HCPCS: 36415; 71045; 71046; 80048; 80053; 83735; 83880; 84132; 84484; 85025; 85610; 85730; 87635; 92960; 93005; 93312; 93320; 93325; 94640; 94660; 96365; 96375; 99285

== ENCOUNTER 2021-01-17 18:38 | Inpatient (IN) | payer MEDICARE ==
[2021-01-17] MEDS ORDERED: DILTIAZEM 5 MG/ML 5 ML VIAL IVP STA (19:12)
[2021-01-17] MEDS ORDERED: DILTIAZEM 125 MG in SODIUM CHLORIDE 0.9% 100 ML IV SCH (19:15)
[2021-01-17 19:24] LABS: Basophils % (A) 0 %; Eosinophils # (A) 0.1 k/uL (0-0.7); Eosinophils % (A) 2 %; HCT 36.2 % (39.0-53.0); HGB 11.4 gm/dL (13.0-17.5); Hypochromasia Moderate; Lymphocytes # (A) 0.8 k/uL (1.0-4.8); Lymphocytes % (A) 10 %; MCH 32.5 pg (25.0-35.0); MCHC 31.5 g/dL (31.0-37.0); MCV 103.2 fL (80.0-100.0); Macrocytosis Slight; Mean Platelet Volume 7.6; Monocytes # (A) 0.7 k/uL (0-1.0); Monocytes % (A) 8 %; Neutrophils # (A) 6.1 k/uL (1.3-7.7); Neutrophils % (A) 76 %; Platelet Count 214 k/uL (150-450); RBC 3.51 m/uL (4.30-5.90); RDW 14.8 % (11.5-15.5)
--- NOTE | 2021-01-17 19:28 | ED ---
General Adult HPI - General Chief complaint: Shortness of Breath Stated complaint: sob/chest pain Time Seen by Provider: 01/17/21 18:55 Source: patient Mode of arrival: wheelchair Limitations: no limitations - History of Present Illness Initial comments: 75 year-old male patient presents to the emergency department for evaluation of shortness of breath, chest pain, and palpitations. Patient states he has been having increased trouble over the last couple of weeks. States that today was worse. States he had some mild chest pain earlier today it has resolved. Patient states two days ago he caught himself drooling and was concerned he may have had a TIA. He does have history of afib, they did recently drop his metoprolol dose down to half. He does take apixaban. Denies cough or congestion. He is oxygen dependent. Denies fever or chills. Patient denies any recent rash, abdominal pain, nausea, vomiting, diarrhea, constipation, back pain, numbness, tingling, dizziness, weakness, hematuria, dysuria, urinary urgency, urinary frequency, headache, visual changes, or any other complaints. - Related Data Home Medications Medication Instructions Recorded Confirmed Vit C/E/Zn/Coppr/Lutein/Zeaxan 1 cap PO BID 08/03/17 01/17/21 [Preservision Areds 2 Softgel] Albuterol Sulfate [Proair Hfa] 2 puff INHALATION RT-Q6H PRN 02/23/19 01/17/21 Dextran 70/Hypromellose 1 drop BOTH EYES QID 11/25/20 01/17/21 [Lubricating Tears 0.1-0.3% Drp] Escitalopram [Lexapro] 10 mg PO DAILY 11/25/20 01/17/21 Lidocaine 4% Cream [Lmx 4] 1 applic TOPICAL BID PRN 11/25/20 01/17/21 Amiodarone [Cordarone] 200 mg PO DAILY 12/02/20 01/17/21 Albuterol Nebulized [Ventolin 2.5 mg INHALATION RT-Q4H 01/17/21 01/17/21 Nebulized] Fluticasone Propion/Salmeterol 1 puff INHALATION RT-BID 01/17/21 01/17/21 [Fluticasone-Salmeterol 500-50] Roflumilast [Daliresp] 500 mcg PO DAILY 01/17/21 01/17/21 Tiotropium 2.5 Mcg/Puff [Spiriva 2 puff INHALATION RT-DAILY 01/17/21 01/17/21 Respimat 2.5 Mcg] predniSONE 5 mg PO DAILY 01/17/21 01/17/21 traZODone HCL [Desyrel] 50 mg PO HS 01/17/21 01/17/21 Previous Rx's Medication Instructions Recorded Apixaban [Eliquis] 5 mg PO BID 30 Days #60 tab 11/26/20 Metoprolol Tartrate [Lopressor] 50 mg PO TID #90 tab 12/05/20 Allergies Allergy/AdvReac Type Severity Reaction Status Date / Time atorvastatin [From Lipitor] AdvReac Muscle Pain Verified 01/17/21 20:11 Review of Systems ROS Statement: Those systems with pertinent positive or pertinent negative responses have been documented in the HPI. ROS Other: All systems not noted in ROS Statement are negative. Past Medical History Past Medical History: Atrial Fibrillation, Cancer, COPD, Eye Disorder, Hearing Disorder / Deafness, Hyperlipidemia, Hypertension, Osteoarthritis (OA) Additional Past Medical History / Comment(s): Emphysema (takes inhalers and uses oxygen at home). Hx Kidney Cancer in 2006. Left eye detached retina. Wet Macular Degeneration right eye. Hx Melanoma on back. Bilateral hearing aid use, legally blind. History of Any Multi-Drug Resistant Organisms: None Reported Past Surgical History: Back Surgery Additional Past Surgical History / Comment(s): Right kidney removed. Left eye surgery X3 for detacted retina. Bilateral cataract surgery. Mohs surgery thoracic spine for melanoma. Past Anesthesia/Blood Transfusion Reactions: Previous Problems w/ Anesthesia Additional Past Anesthesia/Blood Transfusion Reaction / Comment(s): States low heart rate, light-headed and low BP X1 with anesthesia. "Got broke vocal cord and could not talk for 2 months after anesthesia one time." Past Psychological History: No Psychological Hx Reported Smoking Status: Former smoker Past Alcohol Use History: None Reported Past Drug Use History: None Reported - Past Family History Mother Family Medical History: Cancer Additional Family Medical History / Comment(s): Brain CA. Father Family Medical History: CVA/TIA General Exam Limitations: no limitations General appearance: alert, in no apparent distress, other (This is a well- developed, well-nourished adult male patient in no acute distress. Vital signs upon presentation temperature 98.3F, pulse 78, respirations 20, blood pressure 115/72, pulse ox 97% on room air.) ENT exam: Present: normal exam, normal oropharynx, mucous membranes moist Respiratory exam: Present: normal lung sounds bilaterally. Absent: respiratory distress, wheezes, rales, rhonchi, stridor Cardiovascular Exam: Present: tachycardia, irregular rhythm, normal heart sounds. Absent: systolic murmur, diastolic murmur, rubs, gallop, clicks GI/Abdominal exam: Present: soft, normal bowel sounds. Absent: distended, tenderness, guarding, rebound, rigid Neurological exam: Present: alert, oriented X3, CN II-XII intact Psychiatric exam: Present: normal affect, normal mood Skin exam: Present: warm, dry, intact, normal color. Absent: rash Course Vital Signs 01/17/21 01/17/21 01/17/21 18:39 19:01 19:48 Temperature 98.3 F Pulse Rate 78 156 H 123 H Respiratory 20 24 24 Rate Blood Pressure 115/72 104/75 112/91 O2 Sat by Pulse 97 95 95 Oximetry EKG Findings - EKG Comments: EKG Findings:: EKG obtained at 1848 shows A. fib with RVR with a rate of 141, QRS duration 108, QT 260, QTC 398. No evidence of ST elevation or depression. Medical Decision Making - Medical Decision Making 75-year-old male patient presents to the emergency department today for evaluation of shortness of breath, chest pain, palpitations. Physical examination revealed diminished lung sounds bilaterally. Abdomen soft and nontender. Mild swelling in the lower extremities. EKG did reveal A. fib with RVR. Labs reviewed and were relatively unremarkable with no new changes. He was given 20 mg of IV Cardizem and started on Cardizem drip. Cardizem drip is being titrated for rate control. He'll be admitted to the hospital for ca rdiology evaluation. Patient is agreeable this plan. He does currently take apixaban. Case discussed by attending Dr. Gillette. - Lab Data Result diagrams: 01/17/21 19:10 01/17/21 19:10 Lab Results 01/17/21 01/17/21 01/17/21 Range/Units 19:10 19:10 19:10 WBC 8.0 (3.8-10.6) k/uL RBC 3.51 L (4.30-5.90) m/uL Hgb 11.4 L (13.0-17.5) gm/dL Hct 36.2 L (39.0-53.0) % MCV 103.2 H (80.0-100.0) fL MCH 32.5 (25.0-35.0) pg MCHC 31.5 (31.0-37.0) g/dL RDW 14.8 (11.5-15.5) % Plt Count 214 (150-450) k/uL MPV 7.6 Neutrophils % 76 % Lymphocytes % 10 % Monocytes % 8 % Eosinophils % 2 % Basophils % 0 % Neutrophils # 6.1 (1.3-7.7) k/uL Lymphocytes # 0.8 L (1.0-4.8) k/uL Monocytes # 0.7 (0-1.0) k/uL Eosinophils # 0.1 (0-0.7) k/uL Basophils # 0.0 (0-0.2) k/uL Hypochromasia Moderate Macrocytosis Slight PT 11.4 (9.0-12.0) sec INR 1.1 (<1.2) APTT 23.3 (22.0-30.0) sec Sodium 140 (137-145) mmol/L Potassium 4.6 (3.5-5.1) mmol/L Chloride 100 (98-107) mmol/L Carbon Dioxide 33 H (22-30) mmol/L Anion Gap 7 mmol/L BUN 35 H (9-20) mg/dL Creatinine 1.30 H (0.66-1.25) mg/dL Est GFR (CKD-EPI)AfAm 62 (>60 ml/min/1.73 sqM) Est GFR (CKD-EPI)NonAf 54 (>60 ml/min/1.73 sqM) Glucose 111 H (74-99) mg/dL Calcium 9.3 (8.4-10.2) mg/dL Magnesium 1.9 (1.6-2.3) mg/dL Total Bilirubin 0.5 (0.2-1.3) mg/dL AST 28 (17-59) U/L ALT 41 (4-49) U/L Alkaline Phosphatase 94 (38-126) U/L Troponin I (0.000-0.034) ng/mL Total Protein 6.5 (6.3-8.2) g/dL Albumin 3.7 (3.5-5.0) g/dL TSH 1.560 (0.465-4.680) mIU/L Coronavirus (PCR) (Not Detectd) 01/17/21 01/17/21 Range/Units 19:10 19:10 WBC (3.8-10.6) k/uL RBC (4.30-5.90) m/uL Hgb (13.0-17.5) gm/dL Hct (39.0-53.0) % MCV (80.0-100.0) fL MCH (25.0-35.0) pg MCHC (31.0-37.0) g/dL RDW (11.5-15.5) % Plt Count (150-450) k/uL MPV Neutrophils % % Lymphocytes % % Monocytes % % Eosinophils % % Basophils % % Neutrophils # (1.3-7.7) k/uL Lymphocytes # (1.0-4.8) k/uL Monocytes # (0-1.0) k/uL Eosinophils # (0-0.7) k/uL Basophils # (0-0.2) k/uL Hypochromasia Macrocytosis PT (9.0-12.0) sec INR (<1.2) APTT (22.0-30.0) sec Sodium (137-145) mmol/L Potassium (3.5-5.1) mmol/L Chloride (98-107) mmol/L Carbon Dioxide (22-30) mmol/L Anion Gap mmol/L BUN (9-20) mg/dL Creatinine (0.66-1.25) mg/dL Est GFR (CKD-EPI)AfAm (>60 ml/min/1.73 sqM) Est GFR (CKD-EPI)NonAf (>60 ml/min/1.73 sqM) Glucose (74-99) mg/dL Calcium (8.4-10.2) mg/dL Magnesium (1.6-2.3) mg/dL Total Bilirubin (0.2-1.3) mg/dL AST (17-59) U/L ALT (4-49) U/L Alkaline Phosphatase (38-126) U/L Troponin I <0.012 (0.000-0.034) ng/mL Total Protein (6.3-8.2) g/dL Albumin (3.5-5.0) g/dL TSH (0.465-4.680) mIU/L Coronavirus (PCR) Not Detected (Not Detectd) - Radiology Data Radiology results: report reviewed, image reviewed Two-view x-ray of the chest is obtained. Report was reviewed in its entirety. Impression by Dr. Ashton shows cardiomegaly with prominence of the left interstitial and small right pleural effusion. Disposition Clinical Impression: Atrial fibrillation with RVR, Chest pain Disposition: ADMITTED IP TO THIS [facility] Condition: Serious Referrals: [facility],Clinic [Primary Care Provider] - 1-2 days Decision to Admit Reason: Admit from EC Decision Date: 01/17/21 Decision Time: 20:32
[2021-01-17 19:31] LABS: INR 1.1 (<1.2); Partial Thromboplastin Time 23.3 sec (22.0-30.0); Prothrombin Time 11.4 sec (9.0-12.0)
[2021-01-17 19:38] LABS: Albumin 3.7 g/dL (3.5-5.0); Calcium 9.3 mg/dL (8.4-10.2); Magnesium 1.9 mg/dL (1.6-2.3); Potassium 4.6 mmol/L (3.5-5.1); Total Bilirubin 0.5 mg/dL (0.2-1.3); Total Protein 6.5 g/dL (6.3-8.2)
--- NOTE | 2021-01-17 19:42 | XR ---
EXAMINATION TYPE: XR chest 2V DATE OF EXAM: 01/17/2021 COMPARISON: Chest radiograph 12/06/2020 HISTORY: Congestive heart failure TECHNIQUE: Frontal and lateral views of the chest are obtained. FINDINGS: Unchanged cardiomegaly. Mildly prominent lung interstitium. Small right pleural effusion. No dense fo cheryl consolidation or pneumothorax. Visualized osseous structures appear intact. IMPRESSION: Cardiomegaly with prominence of the lung interstitium and small right pleural effusion.
[2021-01-17] MEDS ORDERED: NALOXONE 0.4 MG/ML 1 ML VIAL IV PRN (20:28)
[2021-01-17] MEDS: DILTIAZEM 125 MG in SODIUM CHLORIDE 0.9% 100 ML IV SCH (23:04)
[2021-01-17] MEDS: METOPROLOL TARTRATE 50 MG TAB PO SCH (23:04)
[2021-01-17] MEDS: traZODone HCL 50 MG TAB PO SCH (23:05)
[2021-01-18] MEDS: ALBUTEROL NEBULIZED 2.5 MG/3 ML INHALATION SCH ×6 (00:30→19:49)
[2021-01-18] MEDS ORDERED: ALBUTEROL NEBULIZED 2.5 MG/3 ML INHALATION PRN (06:00)
[2021-01-18] MEDS: ARTIFICIAL TEARS-HYPROMELLOSE DROPS 15 ML BTL BOTH EYES SCH ×4 (08:01→20:39)
[2021-01-18] MEDS: APIXABAN 5 MG TAB PO SCH ×2 (08:01→20:39)
[2021-01-18] MEDS: ESCITALOPRAM 10 MG TAB PO SCH (08:02)
[2021-01-18] MEDS: METOPROLOL TARTRATE 50 MG TAB PO SCH ×3 (08:02→20:38)
[2021-01-18] MEDS: DILTIAZEM 125 MG in SODIUM CHLORIDE 0.9% 100 ML IV SCH (08:14)
[2021-01-18] MEDS: SYMBICORT 160-4.5 MCG INHALER INHALATION SCH ×3 (08:26→19:49)
[2021-01-18] MEDS ORDERED: AMIODARONE 200 MG TAB PO SCH (09:00)
[2021-01-18] MEDS ORDERED: NON FORMULARY DRUG (Roflumilast [Daliresp] 500 MCG Tablet) PO SCH (09:00)
[2021-01-18] MEDS ORDERED: predniSONE 5 MG TAB PO SCH (09:00)
[2021-01-18] MEDS ORDERED: predniSONE 20 MG TAB PO STA (09:21)
--- NOTE | 2021-01-18 09:48 | P.HPIM ---
History of Present Illness This is a pleasant 75 years old male with past medical history of atrial fibrillation, COPD, hypertension, hyperlipidemia, osteoarthritis, right nephrectomy, legally blind. Presents because of worsening dyspnea and some little chest pain and tightness and this left side radiating to the center. Nonspecific. [place]ette Like tightness a nd draped in -09/15 and currently feels better now patient also complaining from worsening exertional dyspnea, currently he has difficulty walking because of his oxygen status . The to cough with occasional white phlegm also patient is on 4 L of oxygen at home, and a prednisone 5 mg daily. 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 Ware Patient is afebrile, he is tachycardic with heart rate 123-142. Blood pressure is stable patient is tachypneic at 24 and hypoxic saturating 90-97% on 4 L oxygen via nasal cannula. CBC is unremarkable except for mild anemia at 11.4. There is normal at 1.1. Creatinine is 1.3 which is at baseline of 1.2-1.4 TSH is normal at 1.5 Coronavirus not detected chest x-ray showed cardiomegaly with prominence of the lung interstitial small right pleural effusion In the emergency room patient was started on Cardizem drip and cardiology team were consulted Currently he is on Cardizem drip at 10 mg/h Review of Systems CONSTITUTIONAL: No fever, no malaise, no fatigue. HEENT: No recent visual problems or hearing problems. Denied any sore throat. CARDIOVASCULAR: No orthopnea, PND, no palpitations, no syncope. PULMONARY: No chest wall tenderness, no hemoptysis. GASTROINTESTINAL: No diarrhea, no nausea, no vomiting, no abdominal pain. Normoactive bowel sounds. NEUROLOGICAL: No headaches, no weakness, no numbness. HEMATOLOGICAL: Denies any bleeding or petechiae. GENITOURINARY: Denies any burning micturition, frequency, or urgency. MUSCULOSKELETAL/RHEUMATOLOGICAL: Denies any joint pain, swelling, or any muscle pain. ENDOCRINE: Denies any polyuria or polydipsia. ROS unobtainable: due to endotracheal tube Past Medical History Past Medical History: Atrial Fibrillation, Cancer, COPD, Eye Disorder, Hearing Disorder / Deafness, Hyperlipidemia, Hypertension, Osteoarthritis (OA) Additional Past Medical History / Comment(s): Emphysema (takes inhalers and uses oxygen at home). Hx Kidney Cancer in 2006, R nephrectomy.q Left eye detached retina. Wet Macular Degeneration right eye. Hx Melanoma on back. Bilateral hearing aid use, legally blind. History of Any Multi-Drug Resistant Organisms: None Reported Past Surgical History: Back Surgery Additional Past Surgical History / Comment(s): Right kidney removed. Left eye surgery X3 for detacted retina. Bilateral cataract surgery. Mohs surgery thoracic spine for melanoma. Past Anesthesia/Blood Transfusion Reactions: Previous Problems w/ Anesthesia Additional Past Anesthesia/Blood Transfusion Reaction / Comment(s): States low heart rate, light-headed and low BP X1 with anesthesia. "Got broke vocal cord and could not talk for 2 months after anesthesia one time." Past Psychological History: No Psychological Hx Reported Smoking Status: Former smoker Past Alcohol Use History: None Reported Past Drug Use History: None Reported Additional Drug Use History / Comment(s): States uses Marijuana "once a month, if that." Quit smoking 12/27 - Past Family History Mother Family Medical History: Cancer Additional Family Medical History / Comment(s): Brain CA. Father Family Medical History: CVA/TIA Medications and Allergies Home Medications Medication Instructions Recorded Confirmed Type Vit C/E/Zn/Coppr/Lutein/Zeaxan 1 cap PO BID 08/03/17 01/17/21 History [Preservision Areds 2 Softgel] Albuterol Sulfate [Proair Hfa] 2 puff INHALATION RT-Q6H PRN 02/23/19 01/17/21 History Dextran 70/Hypromellose 1 drop BOTH EYES QID 11/25/20 01/17/21 History [Lubricating Tears 0.1-0.3% Drp] Escitalopram [Lexapro] 10 mg PO DAILY 11/25/20 01/17/21 History Lidocaine 4% Cream [Lmx 4] 1 applic TOPICAL BID PRN 11/25/20 01/17/21 History Apixaban [Eliquis] 5 mg PO BID 30 Days #60 tab 11/26/20 01/17/21 Rx Amiodarone [Cordarone] 200 mg PO DAILY 12/02/20 01/17/21 History Metoprolol Tartrate [Lopressor] 50 mg PO TID #90 tab 12/05/20 01/17/21 Rx Albuterol Nebulized [Ventolin 2.5 mg INHALATION RT-Q4H 01/17/21 01/17/21 History Nebulized] Fluticasone Propion/Salmeterol 1 puff INHALATION RT-BID 01/17/21 01/17/21 History [Fluticasone-Salmeterol 500-50] Roflumilast [Daliresp] 500 mcg PO DAILY 01/17/21 01/17/21 History Tiotropium 2.5 Mcg/Puff [Spiriva 2 puff INHALATION RT-DAILY 01/17/21 01/17/21 History Respimat 2.5 Mcg] predniSONE 5 mg PO DAILY 01/17/21 01/17/21 History traZODone HCL [Desyrel] 50 mg PO HS 01/17/21 01/17/21 History Allergies Allergy/AdvReac Type Severity Reaction Status Date / Time atorvastatin [From Lipitor] AdvReac Muscle Pain Verified 01/17/21 20:11 Physical Exam Vitals: Vital Signs Temp Pulse Pulse Resp BP BP Pulse Ox 01/17/21 21:18 98.1 F 140 H 24 130/73 92 L 01/17/21 20:30 142 H 24 112/81 97 01/17/21 19:48 123 H 24 112/91 95 01/17/21 19:01 156 H 24 104/75 95 01/17/21 18:39 98.3 F 78 20 115/72 97 Intake and Output 01/17/21 01/17/21 01/17/21 06:59 14:59 22:59 Intake Total 4.583 Balance 4.583 Intake: Intake, IV Titration 4.583 Amount Diltiazem 125 mg In 4.583 Sodium Chloride 0.9% 100 ml @ 5 MG/HR 5 mls/hr IV .Q24H [facility] Rx#:[id number] Other: Weight 131.542 kg -GENERAL: The patient is alert and oriented x3, not in any acute distress. Obese HEENT: Pupils are round and equally reacting to light. EOMI. No scleral icterus. No conjunctival pallor. Normocephalic, atraumatic. No pharyngeal erythema. No thyromegaly. CARDIOVASCULAR: S1 and S2 present. No murmurs, rubs, or gallops. -PULMONARY: Chest is clear to auscultation, no wheezing or crackles. Some degree of air entry on both sides ABDOMEN: Soft, nontender, nondistended, normoactive bowel sounds. No palpable organomegaly. MUSCULOSKELETAL: No joint swelling or deformity. EXTREMITIES: No cyanosis, clubbing, or pedal edema. NEUROLOGICAL: Gross neurological examination did not reveal any focal deficits. SKIN: No rashes. No petechiae Results CBC & Chem 7: 01/17/21 19:10 01/17/21 19:10 Labs: Abnormal Lab Results - Last 24 Hours (Table) 01/17/21 01/17/21 Range/Units 19:10 19:10 RBC 3.51 L (4.30-5.90) m/uL Hgb 11.4 L (13.0-17.5) gm/dL Hct 36.2 L (39.0-53.0) % MCV 103.2 H (80.0-100.0) fL Lymphocytes # 0.8 L (1.0-4.8) k/uL Carbon Dioxide 33 H (22-30) mmol/L BUN 35 H (9-20) mg/dL Creatinine 1.30 H (0.66-1.25) mg/dL Glucose 111 H (74-99) mg/dL Thrombosis Risk Factor Assmnt - Choose All That Apply Each Factor Represents 1 point: Abnormal pulmonary function (COPD) Each Risk Factor Represents 3 Points: Age 75 years or older Other congenital or acquired thrombophilia - If yes, enter type in comment: No Thrombosis Risk Factor Assessment Total Risk Factor Score: 4 Thrombosis Risk Factor Assessment Level: Moderate Risk Assessment and Plan Assessment: A. fib with RVR COPD, with acute exacerbation Acute hypoxic respiratory failure Chronic kidney disease liver enzymes are unremarkable. Troponin is negative less than 0.012. 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 fib and RVR and hypoxia and tachypnea Continue with Cardizem drip. Restart Eliquis. Continue with telemetry and cardiology consult we will consult pulmonary service for his respiratory distress. Continue with steroids, bronchodilator and oxygen therapy. Labs and medication were reviewed.. Continue same treatment. Continue with symptomatic treatment. Resume home medication. Monitor lytes and vitals. DVT and GI prophylaxis. Further recommendations as per clinical course of the patient DVT prophylaxiEliquis GI Prophylaxis: Pepcid PT/OT: Pending Prognosis is guarded
[2021-01-18] MEDS: FUROSEMIDE 10 MG/ML 4 ML VIAL IV SCH ×2 (10:32→20:38)
--- NOTE | 2021-01-18 10:36 | CONS ---
CONSULTATION Mr. Senior is a 75-year-old male who presented to the emergency room with not feeling well. He has been short of breath, having palpitations, some tightness in the chest, and because of that he came into the emergency room. Subsequently he was admitted. The patient has a known history of chronic severe obstructive lung disease. He stopped smoking 2 months ago. He has a history of atrial fibrillation, was admitted to the hospital toward the end of November of this year with atrial fibrillation and RVR. At that time he was treated medically, then presented again to the hospital with symptoms of progressive dyspnea and atrial fibrillation with rapid ventricular response. He underwent transesophageal echocardiogram by Dr. Rodgers and was found to have an ejection fraction of 45% with biatrial enlargement and moderate tricuspid regurgitation. He underwent cardioversion with moravian of sinus mechanism. The patient came in in atrial fibrillation at this time. He is not quite sure if he stayed in sinus mechanism or if he had recurrent atrial fibrillation since the intervention. He has chronic peripheral edema. He has significant dyspnea on exertion. No dizziness. No syncope. No PND or significant orthopnea. On his echocardiogram that was done in November his right-sided pressure was 66 mmHg, consistent with severe pulmonary hypertension. His coronary risk factors are remarkable for the prior history of smoking. He is hypertensive. He is nondiabetic. MEDICATION: His medications includes Eliquis 5 mg twice a day, Lopressor 50 mg 3 times a day, fluticasone, albuterol, amiodarone 200 mg daily, Respimat, prednisone and trazodone. REVIEW OF SYSTEMS: RESPIRATORY SYSTEM: He has chronic dyspnea on exertion with chronic obstructive lung disease. No recent fever. GI SYSTEM: No recent GI bleeding. No peptic ulcer disease. SYSTEM: No dysuria or hematuria. NERVOUS SYSTEM: No stroke or seizure. PHYSICAL EXAMINATION: This is a 75-year-old male, alert, oriented, in no apparent distress, obese. VITAL SIGNS: Blood pressure 124/79 with a heart rate running in the 100s to 120s. HEAD: Normocephalic. Eyes: Sclerae anicteric. NECK: No bruit. LUNGS: Decreased air exchange bilaterally. No wheezes. HEART: Irregularly irregular. S1, S2. No S3, with systolic murmur at the base. No diastolic murmur. No rub. ABDOMEN: Soft, obese, nontender. EXTREMITIES: Plus 1 to 2 edema bilaterally. LAB DATA: Lab data revealed BUN and creatinine of 35 and 1.3, potassium 4.6. Troponin less than 0.012. TSH 1.560. Hemoglobin of 11.4. EKG revealed atrial fibrillation with rapid ventricular response, rate in the 140s, with nonspecific ST-T wave changes. Chest x-ray shows a small right pleural effusion. IMPRESSION: 1. Atrial fibrillation. The patient underwent cardioversion on December 06 of this year. Unclear if he maintained sinus mechanism since. 2. Symptoms of dyspnea with a combination of probable congestive heart failure with mildly impaired left ventricular systolic function in addition to chronic obstructive lung disease and severe pulmonary hypertension. 3. Severe pulmonary hypertension, chronic obstructive lung disease and prior history of smoking. 4. Hypertension. RECOMMENDATIONS: From the cardiac standpoint, I will continue IV Cardizem for now. I will start him on IV Lasix. Will follow his renal function closely. I will increase the dose of his amiodarone. Depending on his progress, further recommendations will be made regarding the need to attempt repeat cardioversion if he has maintained sinus mechanism post previous CVN. At this time will control the rate. Thank you for this consult. Will follow with you . MMODL / IJN: [id number] / YAS
[2021-01-18] MEDS: Roflumilast [Daliresp] 500 MCG Tablet PO SCH (17:57)
[2021-01-18] MEDS: traZODone HCL 50 MG TAB PO SCH (20:39)
[2021-01-18] MEDS: FAMOTIDINE 20 MG/2 ML VIAL IV SCH (20:39)
[2021-01-18] MEDS: AMIODARONE 200 MG TAB PO SCH (20:39)
[2021-01-19] MEDS: DILTIAZEM 125 MG in SODIUM CHLORIDE 0.9% 100 ML IV SCH ×2 (00:07→22:16)
[2021-01-19] MEDS: ALBUTEROL NEBULIZED 2.5 MG/3 ML INHALATION SCH ×3 (03:52→08:31)
[2021-01-19] MEDS: SYMBICORT 160-4.5 MCG INHALER INHALATION SCH ×2 (08:31→19:59)
[2021-01-19 08:56] LABS: Calcium 8.7 mg/dL (8.4-10.2)
--- NOTE | 2021-01-19 08:59 | XR ---
EXAMINATION TYPE: XR chest 1V portable DATE OF EXAM: 01/19/2021 CLINICAL HISTORY: Difficulty breathing progress study. TECHNIQUE: Single AP portable upright view of the chest is obtained. COMPARISON: Chest x-ray from 2 days earlier FINDINGS: Persistent cardiomegaly with small to moderate size right pleural effusion and associated atelectasis and/or infiltrate. Left lung remains clear. Osseous structures are intact. IMPRESSION: Cardiomegaly with small to moderate size right pleural effusion and associated right basi lar atelectasis and/or infiltrate redemonstrated. No significant change from 2 days earlier.
[2021-01-19] MEDS ORDERED: methylPREDNISolone SOD SUCCI 40 MG/ML 1 ML VIAL IV SCH (09:00)
[2021-01-19 09:07] LABS: Magnesium 1.9 mg/dL (1.6-2.3); Potassium 4.9 mmol/L (3.5-5.1)
[2021-01-19] MEDS: AMIODARONE 200 MG TAB PO SCH ×2 (09:13→20:24)
[2021-01-19] MEDS: APIXABAN 5 MG TAB PO SCH ×2 (09:13→20:21)
[2021-01-19] MEDS: ESCITALOPRAM 10 MG TAB PO SCH (09:14)
[2021-01-19] MEDS: METOPROLOL TARTRATE 50 MG TAB PO SCH (09:14)
[2021-01-19] MEDS: ARTIFICIAL TEARS-HYPROMELLOSE DROPS 15 ML BTL BOTH EYES SCH ×4 (09:14→20:27)
[2021-01-19] MEDS: Roflumilast [Daliresp] 500 MCG Tablet PO SCH (09:15)
[2021-01-19] MEDS: FAMOTIDINE 20 MG/2 ML VIAL IV SCH (09:16)
[2021-01-19] MEDS: FUROSEMIDE 10 MG/ML 4 ML VIAL IV SCH (09:17)
--- NOTE | 2021-01-19 11:33 | P.PN ---
Subjective This is a pleasant 75 years old male with past medical history of atrial fibrillation, COPD, hypertension, hyperlipidemia, osteoarthritis, right nep hrectomy, legally blind. Presents because of worsening dyspnea and some little chest pain and tightness and this left side radiating to the center. Nonspecific. [place] Like tightness and draped in and currently feels better now patient also complaining from worsening exertional dyspnea, currently he has difficulty walking because of his oxygen status . The to cough with occasional white phlegm also patient is on 4 L of oxygen at home, and a prednisone 5 mg daily. 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 Blood pressure is stable patient is tachypneic at 24 and hypoxic saturating 90-97% on 4 L oxygen via nasal cannula. CBC is unremarkable except for mild anemia at 11.4. There is normal at 1.1. Creatinine is 1.3 which is at baseline of 1.2-1.4 TSH is normal at 1.5 Coronavirus not detected chest x-ray showed cardiomegaly with prominence of the lung interstitial small right pleural effusion In the emergency room patient was started on Cardizem drip and cardiology team were consulted Currently he is on Cardizem drip at 10 mg/h 01/19/2021 Patient with no chest pain but still short of breath and he has decreased air entry with significant leg swelling, on chest exam he has bilateral crepitation. Oxygen saturation is at baseline at 24 L, at home he uses 4 L oxygen. His labs are stable and creatinine is slightly better at 1.5 today. Chest x-ray showing right pleural effusion with associated atelectasis versus infiltrate. Patient of pneumonia is low with no fever or leukocytosis. An echo from 11/2020 showing ejection fraction of 45-50%. TSH is normal at 1.5 He remains on Eliquis, Cardizem drip at 10 mg per hour, IV Lasix 40 mg twice daily and steroids are switched to prednisone 40 mg by pulmonary team. Objective - Vital Signs Vital signs: Vital Signs Temp 97.9 F 01/19/21 08:00 Pulse 95 01/19/21 08:44 Resp 18 01/19/21 08:44 BP 107/62 01/19/21 08:00 Pulse Ox 92 L 01/19/21 08:37 Intake & Output 01/18/21 01/19/21 01/19/21 18:59 06:59 18:59 Intake Total 451.667 125 Output Total 800 550 Balance -348.333 -425 Weight 135.2 kg Intake: Intake, IV Titration 91.667 125 Amount Diltiazem 125 mg In 91.667 125 Sodium Chloride 0.9% 100 ml @ 10 MG/HR 10 mls/hr IV .[id number] [facility] Rx#: [id number] Oral 360 Output: Urine 800 550 Other: Voiding Method Toilet Toilet Urinal Urinal # Voids 1 1 - Exam -GENERAL: The patient is alert and oriented x3, not in any acute distress. Obese HEENT: Pupils are round and equally reacting to light. EOMI. No scleral icterus. No conjunctival pallor. Normocephalic, atraumatic. No pharyngeal erythema. No thyromegaly. CARDIOVASCULAR: S1 and S2 present. No murmurs, rubs, or gallops. -PULMONARY: Chest is clear to auscultation, bilateral crepitation with decreased air entry on both sides ABDOMEN: Soft, nontender, nondistended, normoactive bowel sounds. No palpable organomegaly. MUSCULOSKELETAL: No joint swelling or deformity. -EXTREMITIES: No cyanosis, clubbing, bilateral pitting leg edema NEUROLOGICAL: Gross neurological examination did not reveal any focal deficits. SKIN: No rashes. no petechiae. - Labs CBC & Chem 7: 01/17/21 19:10 01/19/21 08:08 Labs: Abnormal Lab Results - Last 24 Hours (Table) 01/19/21 Range/Units 08:08 Chloride 96 L (98-107) mmol/L Carbon Dioxide 35 H (22-30) mmol/L BUN 39 H (9-20) mg/dL Glucose 113 H (74-99) mg/dL Assessment and Plan Assessment: A. fib with RVR acute on chronic systolic CHF with ejection fraction 45-50% COPD, with mild acute exacerbation Acute on chronic hypoxic respiratory failure Chronic kidney disease liver enzymes are unremarkable. Troponin is negative less than 0.012. 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 fib and RVR and hypoxia and tachypnea patient is on IV Lasix 40 mg twice a day Continue with Cardizem drip. Continue with Eliquis. Continue with telemetry and cardiology consult we will consult pulmonary service for his respiratory distress. Continue with steroids, bronchodilator and oxygen therapy. Labs and medication were reviewed.. Continue same treatment. Continue with symptomatic treatment. Resume home medication. Monitor lytes and vitals. DVT and GI prophylaxis. Further recommendations as per clinical course of the patient DVT prophylaxiEliquis GI Prophylaxis: Pepcid PT/OT: Pending Prognosis is guarded
[2021-01-19] MEDS: IPRATROPIUM-ALBUTEROL 3 ML NEB INHALATION SCH ×3 (11:35→19:59)
[2021-01-19 11:48] LABS: Glucose,Whole Blood 139 mg/dL (75-99)
[2021-01-19] MEDS: INSULIN ASPART (NovoLOG) 100 UNIT/ML VIAL SQ SCH ×3 (12:06→20:22)
[2021-01-19] MEDS ORDERED: METOPROLOL TARTRATE 25 MG TAB PO STA (12:57)
--- NOTE | 2021-01-19 14:24 | P.CNPUL ---
History of Present Illness Consult date: 01/19/21 Requesting physician: Celina Chen Reason for consult: dyspnea Chief complaint: Dyspnea History of present illness: 75-year-old male patient with past medical history of COPD on home oxygen, chronic atrial fibrillation on Eliquis, chronic tobacco dependence quit only recently 2 months ago, history of systolic and diastolic CHF with ejection fraction of 45-50%, mildly impaired LV function, and severe pulmonary hypertension, obstructive sleep apnea noncompliant with CPAP, history of hyper tension, and hyperlipidemia him into the emergency department on 01/17/2021 complaining of shortness of breath, chest pain and palpitations. He states he has been increasing trouble over the last couple of weeks. He had some mild chest pain which had resolved spontaneously. Also reports an episode of drooling couple days ago, and was concerned about a possibility of TIA. He is on Eliquis on an outpatient basis. He reports increasing edema in his lower extremities, no fever or chills, no cough or chest congestion. No nausea, vomiting or diarrhea, no abdominal pain. His chest x-ray in the emergency department show cardiomegaly with prominence of the lung interstitium and small right pleural effusion. EKG showed A. fib with RVR with a rate of 141 BPM. Patient was started on IV Cardizem in the emergency department at 10 mg per hour for rate control, he is on home dose amiodarone 200 mg twice a day on which he continues, he is already on Eliquis 5 mg twice daily, currently his heart rate is better controlled, on 2 L of oxygen has pulse ox is 90-92%, he was generally fluid overloaded, short of breath, and his chest x-ray showed just showed prominence, and small right plural effusion.. Cardiology started the patient on IV diuretics 40 mg of Lasix every 12 hours, he is in -773 mL fluid balance over the last 24 hours, has quite a bit of swelling in bilateral lower extremities, follow-up chest x-ray today shows cardiomegaly persistent mild to moderate size right pleural effusion. No fever or chills, he tested negative for COVID-19, his baseline FEV1 is 19% of predicted, patient follows with Dr. Ware in the pulmonary clinic, he is on albuterol inhaler, and Advair in addition to Spiriva on an outpatient basis, in addition he is on maintenance dose prednisone 5 mg daily. Review of Systems All systems: negative Constitutional: Denies chills, Denies fever Eyes: denies blurred vision, denies pain Ears, nose, mouth and throat: Denies headache, Denies sore throat Cardiovascular: Reports chest pain, Reports leg edema, Denies shortness of breath Respiratory: Reports dyspnea, Denies cough Gastrointestinal: Denies abdominal pain, Denies diarrhea, Denies nausea, Denies vomiting Musculoskeletal: Denies myalgias Integumentary: Denies pruritus, Denies rash Neurological: Denies numbness, Denies weakness Psychiatric: Denies anxiety, Denies depression Endocrine: Denies fatigue, Denies weight change Past Medical History Past Medical History: Atrial Fibrillation, Cancer, COPD, Eye Disorder, Hearing Disorder / Deafness, Hyperlipidemia, Hypertension, Osteoarthritis (OA) Additional Past Medical History / Comment(s): Emphysema (takes inhalers and uses oxygen at home). Hx Kidney Cancer in 2006, R nephrectomy.q Left eye detached retina. Wet Macular Degeneration right eye. Hx Melanoma on back. Bilateral hearing aid use, legally blind. History of Any Multi-Drug Resistant Organisms: None Reported Past Surgical History: Back Surgery Additional Past Surgical History / Comment(s): Right kidney removed. Left eye surgery X3 for detacted retina. Bilateral cataract surgery. Mohs surgery thoracic spine for melanoma. Past Anesthesia/Blood Transfusion Reactions: Previous Problems w/ Anesthesia Additional Past Anesthesia/Blood Transfusion Reaction / Comment(s): States low h eart rate, light-headed and low BP X1 with anesthesia. "Got broke vocal cord and could not talk for 2 months after anesthesia one time." Past Psychological History: No Psychological Hx Reported Smoking Status: Former smoker Past Alcohol Use History: None Reported Past Drug Use History: None Reported Additional Drug Use History / Comment(s): States uses Marijuana "once a month, if that." Quit smoking 12/27 - Past Family History Mother Family Medical History: Cancer Additional Family Medical History / Comment(s): Brain CA. Father Family Medical History: CVA/TIA Medications and Allergies Home Medications Medication Instructions Recorded Confirmed Type Vit C/E/Zn/Coppr/Lutein/Zeaxan 1 cap PO BID 08/03/17 01/17/21 History [Preservision Areds 2 Softgel] Albuterol Sulfate [Proair Hfa] 2 puff INHALATION RT-Q6H PRN 02/23/19 01/17/21 History Dextran 70/Hypromellose 1 drop BOTH EYES QID 11/25/20 01/17/21 History [Lubricating Tears 0.1-0.3% Drp] Escitalopram [Lexapro] 10 mg PO DAILY 11/25/20 01/17/21 History Lidocaine 4% Cream [Lmx 4] 1 applic TOPICAL BID PRN 11/25/20 01/17/21 History Apixaban [Eliquis] 5 mg PO BID 30 Days #60 tab 11/26/20 01/17/21 Rx Amiodarone [Cordarone] 200 mg PO DAILY 12/02/20 01/17/21 History Metoprolol Tartrate [Lopressor] 50 mg PO TID #90 tab 12/05/20 01/17/21 Rx Albuterol Nebulized [Ventolin 2.5 mg INHALATION RT-Q4H 01/17/21 01/17/21 History Nebulized] Fluticasone Propion/Salmeterol 1 puff INHALATION RT-BID 01/17/21 01/17/21 History [Fluticasone-Salmeterol 500-50] Roflumilast [Daliresp] 500 mcg PO DAILY 01/17/21 01/17/21 History Tiotropium 2.5 Mcg/Puff [Spiriva 2 puff INHALATION RT-DAILY 01/17/21 01/17/21 History Respimat 2.5 Mcg] predniSONE 5 mg PO DAILY 01/17/21 01/17/21 History traZODone HCL [Desyrel] 50 mg PO HS 01/17/21 01/17/21 History Allergies Allergy/AdvReac Type Severity Reaction Status Date / Time atorvastatin [From Lipitor] AdvReac Muscle Pain Verified 01/17/21 20:11 Physical Exam Vitals: Vital Signs Temp Pulse Pulse Resp BP Pulse Ox 01/19/21 11:47 94 18 01/19/21 11:38 90 18 01/19/21 08:44 95 18 01/19/21 08:37 93 16 92 L 01/19/21 08:00 97.9 F 124 H 20 107/62 90 L 01/19/21 04:03 92 01/19/21 04:00 79 20 111/75 96 01/19/21 03:52 103 H 01/19/21 00:12 98/63 01/19/21 00:11 99 01/19/21 00:00 88 01/18/21 23:55 98.1 F 103 H 24 93/58 94 L 01/18/21 20:06 90 01/18/21 20:00 97.8 F 114 H 22 127/68 90 L 01/18/21 19:49 88 01/18/21 16:32 90 01/18/21 16:21 88 01/18/21 16:00 98.0 F 112 H 22 112/72 93 L Intake and Output 01/18/21 01/19/21 01/19/21 22:59 06:59 14:59 Intake Total 125 Output Total 800 550 Balance -675 -550 Intake: Intake, IV Titration 125 Amount Diltiazem 125 mg In 125 Sodium Chloride 0.9% 100 ml @ 10 MG/HR 10 mls/hr IV .[id number] [facility] Rx#: [id number] Output: Urine 800 550 Other: Voiding Method Toilet Urinal # Voids 1 Weight 135.2 kg GENERAL EXAM: Alert, very pleasant, 75-year-old on 2 L of oxygen, with pulse ox of 92% comfortable in no apparent distress. HEAD: Normocephalic/atraumatic. EYES: Normal reaction of pupils, equal size. Conjunctiva pink, sclera white. NOSE: Clear with pink turbinates. THROAT: No erythema or exudates. NECK: No masses, no JVD, no thyroid enlargement, no adenopathy. CHEST: No chest wall deformity. Symmetrical expansion. LUNGS: Equal air entry with no crackles, wheeze, rhonchi or dullness. CVS: Irregular rate and rhythm currently with a controlled rate, normal S1 and S2, no gallops, no murmurs, no rubs ABDOMEN: Soft, nontender. No hepatosplenomegaly, normal bowel sounds, no guarding or rigidity. EXTREMITIES: No clubbing, 1 plus lower extremity edema no cyanosis, 2+ pulses and upper and lower extremities. MUSCULOSKELETAL: Muscle strength and tone normal. SPINE: No scoliosis or deformity SKIN: No rashes CENTRAL NERVOUS SYSTEM: Alert and oriented -3. No focal deficits, tone is normal in all 4 extremities. PSYCHIATRIC: Alert and oriented -3. Appropriate affect. Intact judgment and insight. Results - Laboratory Findings CBC and BMP: 01/17/21 19:10 01/19/21 08:08 PT/INR, D-dimer PT 11.4 sec (9.0-12.0) 01/17/21 19:10 INR 1.1 (<1.2) 01/17/21 19:10 Abnormal lab findings: Abnormal Labs 01/17/21 01/17/21 01/19/21 19:10 19:10 08:08 RBC 3.51 L Hgb 11.4 L Hct 36.2 L MCV 103.2 H Lymphocytes # 0.8 L Chloride 96 L Carbon Dioxide 33 H 35 H BUN 35 H 39 H Creatinine 1.30 H Glucose 111 H 113 H POC Glucose (mg/dL) 01/19/21 11:46 RBC Hgb Hct MCV Lymphocytes # Chloride Carbon Dioxide BUN Creatinine Glucose POC Glucose (mg/dL) 139 H - Diagnostic Findings Chest x-ray: report reviewed, image reviewed Additional studies: EKG reviewed Assessment and Plan Plan: Assessment: #1. Acute on chronic hypoxic respiratory failure related to acute exacerbation of systolic CHF, with mildly impaired left ventricle systolic function and EF of 45-50%. COVID-19 PCR was negative #2. Mild exacerbation of chronic obstructive pulmonary disease related to the above #3. A. fib with RVR, patient continues on Cardizem infusion at 10 mg per hour, he is on home dose amiodarone 200 mg twice daily and home dose Eliquis 5 mg daily #4. History of chronic A. fib, with previous cardioversion #5. Severe pulmonary hypertension, with right-sided pressure of 66 mmHg likely related to history of COPD #6. Hypertension #7. Chronic nicotine dependence, currently in remission, quit smoking 2 months ago #8. 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 Hearing disorder #10. History of obstructive sleep apnea noncompliant with his home CPAP Plan: Continue diuretics per cardiology recommendations Continue rate control medications per cardiology We'll add oral prednisone 40 mg daily Continue with nebulized bronchodilators Recommend continuing with diuresis No need for antibiotics We'll continue to follow Follow-up labs including electrolytes and renal profile I performed a history & physical examination of the patient and discussed their management with my nurse practitioner, Bridget Kirill. I reviewed the nurse practitioner's note and agree with the documented findings and plan of care. Lung sounds are positive for crackles throughout the lung farah. The findings and the impression was discussed with the patient. I attest to the documentation by the nurse practitioner. Time with Patient: Greater than 30
--- NOTE | 2021-01-19 16:15 | P.PN ---
Subjective This is a pleasant 74-year-old male past medical history significant for chronic atrial fibrillation (diagnosed in November 2020), hypertension, non obstructive coronary artery disease, dyslipidemia, and COPD, obstructive sleep apnea uses CPAP, former etoh, nicotine dependence. He follows in the office with Dr. Rodgers. We have been asked to see in consultation for atrial fibrillation with RVR. Patient presented to the emergency department with worsening shortness of breath, palpitations. Patient recently admitted to the hospital on / for newly diagnosed atrial fibrillation. At that time patient was having symptoms of feeling tired, fatigued and no energy. He also had increased shortness of breath with exertion for 2-3 weeks that progressively getting worse. He presents to appointment with Dr. Rodgers on 11/25/20, he was tachycardic and EKG was performed and was found to be in atrial fibrillation with rapid ventricular response and was sent to the emergency department. Echocardiogram left ventricular systolic function is mildly impaired with an EF of 45-50%, right ventricle is moderately to severely enlarged, mild mitral regurgitation, moderate to severe tricuspid regurgitation, severe pulmonary hypertension with an RVSP of 65.9 mmHg. He underwent successful OSWALDO cardioversion with Dr. Rodgers and has been doing well since then. 01/19/21 Patient seen and examined at bedside, no acute distress. Continues to have shortness of breath. Telemetry reviewed patient continues to be atrial fibrillation with heart rates 80 to 120s. He states he continues to not feel well. Blood pressure 90/64, heart rate 66, afebrile, maintaining oxygen saturations on 2 L nasal cannula. He continues to be maintained on IV Cardizem at 10 mg/hr, metoprolol titrate 50 mg TID, his amiodarone was increased to 200 mg twice a day, anticoagulated on Eliquis 5 mg twice a day, Lasix 40mg IV BID. Patient with 1.3 L urine output over the past 24 hours. Laboratory data reviewed sodium 139, potassium 4.9, BUN 39, serum creatinine 1.25, proBNP 3050 PHYSICAL EXAMINATION CONSTITUTIONAL: No acute distress HEENT: Head is normocephalic. No JVD. CHEST EXAMINATION: Lungs diminished, decreased air exchange bilaterally No chest wall tenderness is noted on palpation or with deep breathing. HEART EXAMINATION: Irregular tachycardic rate and rhythm. S1, S2 heard. Systolic murmur noted left sternal border ABDOMEN: Soft, nontender. Positive bowel sounds. EXTREMITIES: 2+ peripheral pulses 2+-3+ bilateral lower extremity extremity edema and no calf tenderness. NEUROLOGIC EXAMINATION: Patient is awake, alert and oriented x3. ASSESSMENT Shortness of breath, most likely multifactorial due to atrial fibrillation with RVR, COPD and congestive heart failure, pulmonary hypertension Chronic atrial fibrillation with rapid ventricular response - [id number] score 3 on Eliquis Acute systolic heart failure- mildly impaired EF 45-50% Severe pulmonary hypertension Hypertension Nonobstructive coronary artery disease Dyslipidemia COPD Objective sleep apnea Chronic nicotine dependence PLAN Increase metoprolol tartrate to 75mg TID Wean IV cardizem drip Continue amiodarone and Eliquis Switch Bumex 2mg BID I/Os, Daily weights Monitor renal function and electrolytes. Continue cardiac telemetry Patient could benefit from an ablation in the future, this can be discussed as an outpatient Further recommendations based on clinical course Nurse Practitioner note has been reviewed, I agree with a documented findings and plan of care. Patient was seen and examined. Objective - Vital Signs Vital signs: Vital Signs Temp 97.9 F 01/19/21 12:00 Pulse 95 01/19/21 15:26 Resp 18 01/19/21 15:26 BP 98/64 01/19/21 12:00 Pulse Ox 92 L 01/19/21 08:37 Intake & Output 01/18/21 01/19/21 01/19/21 18:59 06:59 18:59 Intake Total 451.667 125 360 Output Total 800 550 Balance -348.333 -425 360 Weight 135.2 kg Intake: Intake, IV Titration 91.667 125 Amount Diltiazem 125 mg In 91.667 125 Sodium Chloride 0.9% 100 ml @ 10 MG/HR 10 mls/hr IV .[id number] [facility] Rx#: [id number] Oral 360 360 Output: Urine 800 550 Other: Voiding Method Toilet Toilet Urinal Urinal # Voids 1 1 - Labs CBC & Chem 7: 01/17/21 19:10 01/19/21 08:08 Labs: Abnormal Lab Results - Last 24 Hours (Table) 01/19/21 01/19/21 Range/Units 08:08 11:46 Chloride 96 L (98-107) mmol/L Carbon Dioxide 35 H (22-30) mmol/L BUN 39 H (9-20) mg/dL Glucose 113 H (74-99) mg/dL POC Glucose (mg/dL) 139 H (75-99) mg/dL
[2021-01-19 16:31] LABS: Glucose,Whole Blood 162 mg/dL (75-99)
[2021-01-19] MEDS: METOPROLOL TARTRATE 25 MG TAB PO SCH ×2 (16:51→20:20)
[2021-01-19 20:05] LABS: Glucose,Whole Blood 180 mg/dL (75-99)
[2021-01-19] MEDS: FAMOTIDINE 20 MG TAB PO SCH (20:21)
[2021-01-19] MEDS: traZODone HCL 50 MG TAB PO SCH (20:21)
[2021-01-19] MEDS: BUMETANIDE 1 MG TAB PO SCH (20:21)
[2021-01-20] MEDS: DILTIAZEM 125 MG in SODIUM CHLORIDE 0.9% 100 ML IV SCH (06:25)
[2021-01-20 06:30] LABS: Glucose,Whole Blood 121 mg/dL (75-99)
[2021-01-20] MEDS: INSULIN ASPART (NovoLOG) 100 UNIT/ML VIAL SQ SCH ×4 (06:32→21:41)
[2021-01-20 08:09] LABS: Calcium 8.7 mg/dL (8.4-10.2); Magnesium 1.6 mg/dL (1.6-2.3); Potassium 4.3 mmol/L (3.5-5.1)
[2021-01-20] MEDS: BUMETANIDE 1 MG TAB PO SCH ×2 (08:27→21:53)
[2021-01-20] MEDS: METOPROLOL TARTRATE 25 MG TAB PO SCH ×3 (08:27→21:40)
[2021-01-20] MEDS: predniSONE 20 MG TAB PO SCH (08:28)
[2021-01-20] MEDS: AMIODARONE 200 MG TAB PO SCH ×2 (08:28→21:40)
[2021-01-20] MEDS: APIXABAN 5 MG TAB PO SCH ×2 (08:29→21:40)
[2021-01-20] MEDS: ESCITALOPRAM 10 MG TAB PO SCH (08:29)
[2021-01-20] MEDS: FAMOTIDINE 20 MG TAB PO SCH ×2 (08:29→21:41)
[2021-01-20] MEDS: ARTIFICIAL TEARS-HYPROMELLOSE DROPS 15 ML BTL BOTH EYES SCH ×4 (08:29→21:42)
[2021-01-20] MEDS: Roflumilast [Daliresp] 500 MCG Tablet PO SCH (08:30)
[2021-01-20] MEDS: SYMBICORT 160-4.5 MCG INHALER INHALATION SCH ×2 (09:17→20:30)
[2021-01-20] MEDS: IPRATROPIUM-ALBUTEROL 3 ML NEB INHALATION SCH ×4 (09:18→20:30)
[2021-01-20] MEDS ORDERED: DIGOXIN 250 MCG/ML 2 ML AMP IVP ONE (10:41)
[2021-01-20] MEDS ORDERED: MAGNESIUM SULFATE-D5W PMX 1 GM in DEXTROSE/WATER 1 100ML.BAG IVPB ONE (11:00)
--- NOTE | 2021-01-20 11:03 | P.PN ---
Subjective This is a pleasant 75 years old male with past medical history of atrial fibrillation, COPD, hypertension, hyperlipidemia, osteoarthritis, right nep hrectomy, legally blind. Presents because of worsening dyspnea and some little chest pain and tightness and this left side radiating to the center. Nonspecific. [place] Like tightness and draped in -09/15 and currently feels better now patient also complaining from worsening exertional dyspnea, currently he has difficulty walking because of his oxygen status . The to cough with occasional white phlegm also patient is on 4 L of oxygen at home, and a prednisone 5 mg daily. His lab instructor is Dr. Ware Patient is afebrile, he is tachycardic with heart rate 123-142. Blood pressure is stable patient is tachypneic at 24 and hypoxic saturating 90-97% on 4 L oxygen via nasal cannula. CBC is unremarkable except for mild anemia at 11.4. There is normal at 1.1. Creatinine is 1.3 which is at baseline of 1.2-1.4 TSH is normal at 1.5 Coronavirus not detected chest x-ray showed cardiomegaly with prominence of the lung interstitial small right pleural effusion In the emergency room patient was started on Cardizem drip and cardiology team were consulted Currently he is on Cardizem drip at 10 mg/h 01/19/2021 Patient with no chest pain but still short of breath and he has decreased air entry with significant leg swelling, on chest exam he has bilateral crepitation. Oxygen saturation is at baseline at 24 L, at home he uses 4 L oxygen. His labs are stable and creatinine is slightly better at 1.5 today. Chest x-ray showing right pleural effusion with associated atelectasis versus infiltrate. Patient of pneumonia is low with no fever or leukocytosis. An echo from 11/2020 showing ejection fraction of 45-50%. TSH is normal at 1.5 He remains on Eliquis, Cardizem drip at 10 mg per hour, IV Lasix 40 mg twice daily and steroids are switched to prednisone 40 mg by pulmonary team. 01/20/2021 She does not see much difference since he came in both the sitting in bed most of the time. His breathing examination looks better. He is at baseline of 4 L oxygen via nasal cannula. Normal however his heart rate is a still uncontrolled around 116 today. Blood pressure is 104/54. Digoxin has been admitted today by broadband engineer on the top of his metoprolol 75 mg 3 times a day and amiodarone. His IV Lasix to switch to Bumex 2 mg twice a day Continue on a prednisone 40 mg per manager of radiology Objective - Vital Signs Vital signs: Vital Signs Temp 97.8 F 01/20/21 04:00 Pulse 109 H 01/20/21 04:00 Resp 20 01/20/21 04:00 BP 103/73 01/20/21 04:00 Pulse Ox 94 L 01/20/21 04:00 Intake & Output 01/19/21 01/20/21 01/20/21 18:59 06:59 18:59 Intake Total 360 240 Output Total 320 325 Balance 360 -320 -85 Weight 136.5 kg Intake: Oral 360 240 Output: Urine 320 325 Other: Voiding Method Toilet Urinal # Voids 1 1 1 # Bowel Movements 1 1 - Exam -GENERAL: The patient is alert and oriented x3, not in any acute distress. Obese HEENT: Pupils are round and equally reacting to light. EOMI. No scleral icterus. No conjunctival pallor. Normocephalic, atraumatic. No pharyngeal erythema. No thyromegaly. CARDIOVASCULAR: S1 and S2 present. No murmurs, rubs, or gallops. -PULMONARY: Chest is clear to auscultation, bilateral crepitation with decreased air entry on both sides ABDOMEN: Soft, nontender, nondistended, normoactive bowel sounds. No palpable organomegaly. MUSCULOSKELETAL: No joint swelling or deformity. -EXTREMITIES: No cyanosis, clubbing, bilateral pitting leg edema NEUROLOGICAL: Gross neurological examination did not reveal any focal deficits. SKIN: No rashes. no petechiae. - Labs CBC & Chem 7: 01/17/21 19:10 01/20/21 07:27 Labs: Abnormal Lab Results - Last 24 Hours (Table) 01/19/21 01/19/21 01/19/21 Range/Units 11:46 16:29 20:03 Chloride (98-107) mmol/L Carbon Dioxide (22-30) mmol/L BUN (9-20) mg/dL Glucose (74-99) mg/dL POC Glucose (mg/dL) 139 H 162 H 180 H (75-99) mg/dL 01/20/21 01/20/21 Range/Units 06:29 07:27 Chloride 95 L (98-107) mmol/L Carbon Dioxide 36 H (22-30) mmol/L BUN 40 H (9-20) mg/dL Glucose 110 H (74-99) mg/dL POC Glucose (mg/dL) 121 H (75-99) mg/dL Assessment and Plan Assessment: A. fib with RVR , currently is on Eliquis acute on chronic systolic CHF with ejection fraction 45-50% COPD, with mild acute exacerbation Acute on chronic hypoxic respiratory failure Chronic kidney disease liver enzymes are unremarkable. Troponin is negative less than 0.012. 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 fib and RVR and hypoxia and tachypnea patient is on Bumex 2 mg twice a day Continue with metoprolol, amiodarone and digoxin. Continue with Eliquis. Continue with telemetry and cardiology consult Continue with the prednisone 40 mg. Continue with bronchodilator and oxygen therapy. Labs and medication were reviewed.. Continue same treatment. Continue with symptomatic treatment. Resume home medication. Monitor lytes and vitals. DVT and GI prophylaxis. Further recommendations as per clinical course of the patient DVT prophylaxis Eliquis GI Prophylaxis: Pepcid PT/OT: Home health care Prognosis is guarded
[2021-01-20 11:34] LABS: Glucose,Whole Blood 123 mg/dL (75-99)
--- NOTE | 2021-01-20 11:53 | CDI ---
Documentation Clarification Form Date: 01/20/2021 11:44:26 AM From: Bailey Kenyon CCS, CCDS Admit Date: 01/17/2021 08:15:00 PM Patient Name: Abhilash Senior Visit Number: [id number] Discharge Date: ATTENTION: The Clinical Documentation Specialists (CDI) and [facility] Coding Staff appreciate your assistance in clarifying documentation. Please respond to the clarification below the line at the bottom and electronically sign. The CDI & [facility] Coding staff will review the response and follow-up if needed. Please note: Queries are made part of the Legal Health Record. If you have any questions, please contact the author of this message via ITS. Dr. Parsons E. Sheet: Chronic Kidney Disease is documented in the 01/17 History & Physical without further specificity. Nephrology is not consulted. Additional clarification regarding the stage of CKD is requested. History/Risk Factors per the 01/17 H/P: Atrial Fibrillation, Kidney Cancer 2007 status post Right Nephrectomy, COPD, Hyperlipidemia, Hypertension, Osteoarthritis, CHF, Home O2, Macular Degeneration Right Eye, Melanoma, Legally Blind. Clinical Indicators: Presented to the ED on 01/17 with SOB and Chest pain, Chest Tightness and Palpitations. ED Clinical Impression: Atrial Fibrillation w/RVR and Chest Pain 01/17 BUN: 35 Creatinine: 1.30 GFR: 54. 01/19 GFR: 56 01/20 GFR: 57 Historical GFR: 01/20/2017: >60 Treatment 01/17: Blood glucose monitoring, Telemetry, Heart Healthy Diet, O2 2Lnc, IV Cardizem 20 mg x1 Home meds: Desyrel, INH Albuterol, po Prednisone, INH Spiriva, Lexapro, Cordarone, Daliresp, INH Ventolin, Lopressor, Eliquis Please clarify the stage of the CKD, if known: [ ] CKD Stage 2 (GFR 60-89) [ ] CKD Stage 3 (GFR 30-59) [ ] CKD Stage 3a (GFR 45-59) [ ] CKD ruled out [ ] Other, please specify [ ] Unable to determine (Template Last revised: June 2020) CKD Stage 3 (GFR 30-59) [facility]
--- NOTE | 2021-01-20 12:37 | P.PN ---
Subjective This is a pleasant 74-year-old male past medical history significant for chronic atrial fibrillation (diagnosed in November 2020), hypertension, non obstructive coronary artery disease, dyslipidemia, and COPD, obstructive sleep apnea uses CPAP, former etoh, nicotine dependence. He follows in the office with Dr. Rodgers. We have been asked to see in consultation for atrial fibrillation with RVR. Patient presented to the emergency department with worsening shortness of breath, palpitations. Patient recently admitted to the hospital on / for newly diagnosed atrial fibrillation. At that time patient was having symptoms of feeling tired, fatigued and no energy. He also had increased shortness of breath with exertion for 2-3 weeks that progressively getting worse. He presents to appointment with Dr. Rodgers on 11/25/20, he was tachycardic and EKG was performed and was found to be in atrial fibrillation with rapid ventricular response and was sent to the emergency department. Echocardiogram left ventricular systolic function is mildly impaired with an EF of 45-50%, right ventricle is moderately to severely enlarged, mild mitral regurgitation, moderate to severe tricuspid regurgitation, severe pulmonary hypertension with an RVSP of 65.9 mmHg. He underwent successful OSWALDO cardioversion with Dr. Rodgers and has been doing well since then. 01/20/21 Patient seen and examined at bedside, no acute distress. Continues to have shortness of breath. He states he is just not feeling well. Telemetry reviewed patient continues to be atrial fibrillation with heart rates 90-130s. Blood pressure 103/73, heart rate 120s, afebrile, maintaining oxygen saturations on 2 L nasal cannula. He continues to be maintained on metoprolol tartrate 75 mg TID, amiodarone 200 mg twice a day, anticoagulated on Eliquis 5 mg twice a day, Bumex 2mg BID. Patient with 600mL urine output over the past 24 hours. Laboratory data reviewed sodium 139, potassium 4.3, BUN 40, serum creatinine 1.24 (1.25 yesterday), proBNP 3050 PHYSICAL EXAMINATION CONSTITUTIONAL: No acute distress HEENT: Head is normocephalic. No JVD. CHEST EXAMINATION: Lungs diminished, decreased air exchange bilaterally No chest wall tenderness is noted on palpation or with deep breathing. HEART EXAMINATION: Irregular tachycardic rate and rhythm. S1, S2 heard. Systolic murmur noted left sternal border ABDOMEN: Soft, nontender. Positive bowel sounds. EXTREMITIES: 2+ peripheral pulses 2+ bilateral lower extremity extremity edema and no calf tenderness. NEUROLOGIC EXAMINATION: Patient is awake, alert and oriented x3. ASSESSMENT Shortness of breath, most likely multifactorial due to atrial fibrillation with RVR, COPD and congestive heart failure, pulmonary hypertension Chronic atrial fibrillation with rapid ventricular response - [id number] score 3 on Eliquis Acute systolic heart failure- mildly impaired EF 45-50% Severe pulmonary hypertension Hypertension Nonobstructive coronary artery disease Dyslipidemia COPD Objective sleep apnea Chronic nicotine dependence PLAN -Start Digoxin, give IV 250mg loading dose, Digoxin PO 250mg Daily started tomorrow -We will proceed with OSWALDO cardioversion tomorrow 01/[address] Rodgers -NPO after midnight -I have discussed the risks, benefits and alternative therapies for the above- mentioned procedure and for both sedation/analgesia if indicated, as they pertain to this patient. The patient has indicated understanding and acceptance of the risks and procedures discussed. Questions have been answered appropriately and he is agreeable to move forward with the above-stated procedure. -Continue metoprolol tartrate to 75mg TID and amiodarone 200mg BID -IV cardizem drip is off. -Continue Eliquis 5mg BID -Continue Bumex 2mg BID -I/Os, Daily weights -Monitor renal function and electrolytes. -Continue cardiac telemetry -Patient could benefit from an ablation in the future, this can be discussed as an outpatient -Further recommendations based on clinical course Nurse Practitioner note has been reviewed, I agree with a documented findings and plan of care. Patient was seen and examined. Objective - Vital Signs Vital signs: Vital Signs Temp 97.8 F 01/20/21 04:00 Pulse 109 H 01/20/21 04:00 Resp 20 01/20/21 04:00 BP 103/73 01/20/21 04:00 Pulse Ox 94 L 01/20/21 04:00 Intake & Output 01/19/21 01/20/21 01/20/21 18:59 06:59 18:59 Intake Total 360 240 Output Total 320 325 Balance 360 -320 -85 Weight 136.5 kg Intake: Oral 360 240 Output: Urine 320 325 Other: Voiding Method Toilet Urinal # Voids 1 1 # Bowel Movements 1 - Labs CBC & Chem 7: 01/17/21 19:10 01/20/21 07:27 Labs: Abnormal Lab Results - Last 24 Hours (Table) 01/19/21 01/19/21 01/19/21 Range/Units 08:08 11:46 16:29 Chloride 96 L (98-107) mmol/L Carbon Dioxide 35 H (22-30) mmol/L BUN 39 H (9-20) mg/dL Glucose 113 H (74-99) mg/dL POC Glucose (mg/dL) 139 H 162 H (75-99) mg/dL 01/19/21 01/20/21 01/20/21 Range/Units 20:03 06:29 07:27 Chloride 95 L (98-107) mmol/L Carbon Dioxide 36 H (22-30) mmol/L BUN 40 H (9-20) mg/dL Glucose 110 H (74-99) mg/dL POC Glucose (mg/dL) 180 H 121 H (75-99) mg/dL
--- NOTE | 2021-01-20 14:12 | P.PN ---
Subjective Progress Note Date: 01/20/21 75-year-old male patient with past medical history of COPD on home oxygen, chronic atrial fibrillation on Eliquis, chronic tobacco dependence quit only recently 2 months ago, history of systolic and diastolic CHF with ejection fraction of 45-50%, mildly impaired LV function, and severe pulmonary hypertensi on, obstructive sleep apnea noncompliant with CPAP, history of hypertension, and hyperlipidemia him into the emergency department on 01/17/2021 complaining of shortness of breath, chest pain and palpitations. He states he has been increasing trouble over the last couple of weeks. He had some mild chest pain which had resolved spontaneously. Also reports an episode of drooling couple days ago, and was concerned about a possibility of TIA. He is on Eliquis on an outpatient basis. He reports increasing edema in his lower extremities, no fever or chills, no cough or chest congestion. No nausea, vomiting or diarrhea, no abdominal pain. His chest x-ray in the emergency department show cardi omegaly with prominence of the lung interstitium and small right pleural effusion. EKG showed A. fib with RVR with a rate of 141 BPM. Patient was started on IV Cardizem in the emergency department at 10 mg per hour for rate control, he is on home dose amiodarone 200 mg twice a day on which he continues, he is already on Eliquis 5 mg twice daily, currently his heart rate is better controlled, on 2 L of oxygen has pulse ox is 90-92%, he was generally fluid overloaded, short of breath, and his chest x-ray showed just showed prominence, and small right plural effusion.. Cardiology started the patient on IV diuretics 40 mg of Lasix every 12 hours, he is in -773 mL fluid balance over the last 24 hours, has quite a bit of swelling in bilateral lower extremities, follow-up chest x-ray today shows cardiomegaly persistent mild to moderate size right pleural effusion. No fever or chills, he tested negative for COVID-19, his baseline FEV1 is 19% of predicted, patient follows with Dr. Ware in the pulmonary clinic, he is on albuterol inhaler, and Advair in addition to Spiriva on an outpatient basis, in addition he is on maintenance dose prednisone 5 mg daily. On 01/20/2021 patient seen in follow-up on medical surgical floor. Patient is currently on 5 L of oxygen, he still has exertional dyspnea just walking to the bathroom, but seems to be in no acute distress. Cardizem drip has been discontinued, he still remains in A. fib with RVR with a rate of 2128. Cardiology is following and patient is being loaded with digoxin. No IV fluids. And his IV fluids have been hep-locked, his been afebrile. Vital signs have been stable, he is on nebulized bronchodilators, he is on oral prednisone. He is on Bumex, and he is in negative fluid balance. Objective - Vital Signs Vital signs: Vital Signs Temp 98.1 F 01/20/21 08:00 Pulse 95 01/20/21 12:55 Resp 20 01/20/21 08:00 BP 104/59 01/20/21 08:00 Pulse Ox 91 L 01/20/21 08:00 Intake & Output 01/19/21 01/20/21 01/20/21 18:59 06:59 18:59 Intake Total 360 240 Output Total 320 325 Balance 360 -320 -85 Weight 136.5 kg Intake: Oral 360 240 Output: Urine 320 325 Other: Voiding Method Toilet Urinal # Voids 1 1 1 # Bowel Movements 1 1 - Exam GENERAL EXAM: Alert, very pleasant, 75-year-old on 2 L of oxygen, with pulse ox of 92% comfortable in no apparent distress. HEAD: Normocephalic/atraumatic. EYES: Normal reaction of pupils, equal size. Conjunctiva pink, sclera white. NOSE: Clear with pink turbinates. THROAT: No erythema or exudates. NECK: No masses, no JVD, no thyroid enlargement, no adenopathy. CHEST: No chest wall deformity. Symmetrical expansion. LUNGS: Equal air entry with no crackles, wheeze, rhonchi or dullness. CVS: Irregular rate and rhythm currently with a controlled rate, normal S1 and S2, no gallops, no murmurs, no rubs ABDOMEN: Soft, nontender. No hepatosplenomegaly, normal bowel sounds, no guarding or rigidity. EXTREMITIES: No clubbing, 1 plus lower extremity edema no cyanosis, 2+ pulses and upper and lower extremities. MUSCULOSKELETAL: Muscle strength and tone normal. SPINE: No scoliosis or deformity SKIN: No rashes CENTRAL NERVOUS SYSTEM: Alert and oriented -3. No focal deficits, tone is normal in all 4 extremities. PSYCHIATRIC: Alert and oriented -3. Appropriate affect. Intact judgment and insight. - Labs CBC & Chem 7: 01/17/21 19:10 01/20/21 07:27 Labs: Abnormal Lab Results - Last 24 Hours (Table) 01/19/21 01/19/21 01/20/21 Range/Units 16:29 20:03 06:29 Chloride (98-107) mmol/L Carbon Dioxide (22-30) mmol/L BUN (9-20) mg/dL Glucose (74-99) mg/dL POC Glucose (mg/dL) 162 H 180 H 121 H (75-99) mg/dL 01/20/21 01/20/21 Range/Units 07:27 11:32 Chloride 95 L (98-107) mmol/L Carbon Dioxide 36 H (22-30) mmol/L BUN 40 H (9-20) mg/dL Glucose 110 H (74-99) mg/dL POC Glucose (mg/dL) 123 H (75-99) mg/dL Assessment and Plan Plan: Assessment: #1. Acute on chronic hypoxic respiratory failure related to acute exacerbation of systolic CHF, with mildly impaired left ventricle systolic function and EF of 45-50%. COVID-19 PCR was negative #2. Mild exacerbation of chronic obstructive pulmonary disease related to the above #3. A. fib with RVR, patient continues on Cardizem infusion at 10 mg per hour, he is on home dose amiodarone 200 mg twice daily and home dose Eliquis 5 mg daily #4. History of chronic A. fib, with previous cardioversion #5. Severe pulmonary hypertension, with right-sided pressure of 66 mmHg likely related to history of COPD #6. Hypertension #7. Chronic nicotine dependence, currently in remission, quit smoking 2 months ago #8. 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 Hearing disorder #10. History of obstructive sleep apnea noncompliant with his home CPAP Plan: Continue diuretics per cardiology recommendations he is currently on Bumex, he is in negative fluid balance,breathing although still has exertional dyspnea Continue rate control medications per cardiology Continue bronchodilators, continue prednisone Follow-up labs including electrolytes and renal profile I performed a history & physical examination of the patient and discussed their management with my nurse practitioner, Bridget Roy. I reviewed the nurse practitioner's note and agree with the documented findings and plan of care. Lung sounds are positive for crackles throughout the lung farah. The findings and the impression was discussed with the patient. I attest to the documentation by the nurse practitioner. Time with Patient: Less than 30
[2021-01-20 16:52] LABS: Glucose,Whole Blood 158 mg/dL (75-99)
[2021-01-20 20:25] LABS: Glucose,Whole Blood 157 mg/dL (75-99)
[2021-01-20] MEDS: traZODone HCL 50 MG TAB PO SCH (21:41)
[2021-01-21 06:10] LABS: Glucose,Whole Blood 92 mg/dL (75-99)
[2021-01-21] MEDS: INSULIN ASPART (NovoLOG) 100 UNIT/ML VIAL SQ SCH ×4 (08:19→22:25)
[2021-01-21 08:31] LABS: Calcium 8.8 mg/dL (8.4-10.2)
[2021-01-21] MEDS: SYMBICORT 160-4.5 MCG INHALER INHALATION SCH ×2 (08:40→21:02)
[2021-01-21] MEDS: IPRATROPIUM-ALBUTEROL 3 ML NEB INHALATION SCH ×4 (08:40→21:02)
[2021-01-21] MEDS: METOPROLOL TARTRATE 25 MG TAB PO SCH ×3 (11:48→22:24)
[2021-01-21] MEDS: predniSONE 20 MG TAB PO SCH (11:48)
[2021-01-21] MEDS: ESCITALOPRAM 10 MG TAB PO SCH (11:48)
[2021-01-21] MEDS: APIXABAN 5 MG TAB PO SCH ×2 (11:48→22:24)
[2021-01-21] MEDS: DIGOXIN 250 MCG TAB PO SCH (11:49)
[2021-01-21] MEDS: ARTIFICIAL TEARS-HYPROMELLOSE DROPS 15 ML BTL BOTH EYES SCH ×4 (11:49→22:28)
[2021-01-21] MEDS: BUMETANIDE 1 MG TAB PO SCH ×2 (11:49→22:23)
[2021-01-21] MEDS: Roflumilast [Daliresp] 500 MCG Tablet PO SCH (11:49)
[2021-01-21] MEDS: AMIODARONE 200 MG TAB PO SCH ×2 (11:49→22:24)
[2021-01-21] MEDS: FAMOTIDINE 20 MG TAB PO SCH ×2 (11:54→11:55)
[2021-01-21 12:27] LABS: Glucose,Whole Blood 83 mg/dL (75-99)
--- NOTE | 2021-01-21 13:24 | P.PN ---
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 He states he has been increasing trouble over the last couple of weeks. He had some mild chest pain which had resolved spontaneously. Also reports an episode of drooling couple days ago, and was concerned about a possibility of TIA. He is on Eliquis on an outpatient basis. He reports increasing edema in his lower extremities, no fever or chills, no cough or chest congestion. No nausea, vomiting or diarrhea, no abdominal pain. His chest x-ray in the emergency department show cardi omegaly with prominence of the lung interstitium and small right pleural effusion. EKG showed A. fib with RVR with a rate of 141 BPM. Patient was started on IV Cardizem in the emergency department at 10 mg per hour for rate control, he is on home dose amiodarone 200 mg twice a day on which he continues, he is already on Eliquis 5 mg twice daily, currently his heart rate is better controlled, on 2 L of oxygen has pulse ox is 90-92%, he was generally fluid overloaded, short of breath, and his chest x-ray showed just showed prominence, and small right plural effusion.. Cardiology started the patient on IV diuretics 40 mg of Lasix every 12 hours, he is in -773 mL fluid balance over the last 24 hours, has quite a bit of swelling in bilateral lower extremities, follow-up chest x-ray today shows cardiomegaly persistent mild to moderate size right pleural effusion. No fever or chills, he tested negative for COVID-19, his baseline FEV1 is 19% of predicted, patient follows with Dr. Ware in the pulmonary clinic, he is on albuterol inhaler, and Advair in addition to Spiriva on an outpatient basis, in addition he is on maintenance dose prednisone 5 mg daily. On 01/20/2021 patient seen in follow-up on medical surgical floor. Patient is currently on 5 L of oxygen, he still has exertional dyspnea just walking to the bathroom, but seems to be in no acute distress. Cardizem drip has been discontinued, he still remains in A. fib with RVR with a rate of 129. Cardiology is following and patient is being loaded with digoxin. No IV fluids. And his IV fluids have been hep-locked, his been afebrile. Vital signs have been stable, he is on nebulized bronchodilators, he is on oral prednisone. He is on Bumex, and he is in negative fluid balance. On 02/01/2021 patient seen in follow-up on selective care unit, he remains in atrial fibrillation, and the rate is still uncontrolled, currently at 126, he is off the Cardizem infusion, he was loaded with digoxin yesterday, he is on met oprolol 75 mg 3 times daily, and continues on maintenance dose of digoxin. He states he is still quite short of breath with any exertion, and walking only short distances in the room, remains on 4 L of oxygen pulse ox 97%, afebrile, remains on bronchodilators, including Symbicort, and DuoNeb, he is on oral prednisone 40 mg daily, is on Bumex 2 mg twice daily. Patient is on Eliquis, and cardiology is planning on cardioversion today. Objective - Vital Signs Vital signs: Vital Signs Temp 97.9 F 01/21/21 11:43 Pulse 60 01/21/21 11:59 Resp 18 01/21/21 11:43 BP 117/70 01/21/21 11:43 Pulse Ox 97 01/21/21 11:43 Intake & Output 01/20/21 01/21/21 01/21/21 18:59 06:59 18:59 Intake Total 480 0 Output Total 650 1700 Balance -170 -1700 0 Weight 134.4 kg Intake: Oral 480 0 Output: Urine 650 1700 Other: # Voids 1 1 # Bowel Movements 1 1 - Exam GENERAL EXAM: Alert, very pleasant, 75-year-old on 2 L of oxygen, with pulse ox of 92% comfortable in no apparent distress. HEAD: Normocephalic/atraumatic. EYES: Normal reaction of pupils, equal size. Conjunctiva pink, sclera white. NOSE: Clear with pink turbinates. THROAT: No erythema or exudates. NECK: No masses, no JVD, no thyroid enlargement, no adenopathy. CHEST: No chest wall deformity. Symmetrical expansion. LUNGS: Equal air entry with no crackles, wheeze, rhonchi or dullness. CVS: Irregular rate and rhythm currently with a controlled rate, normal S1 and S2, no gallops, no murmurs, no rubs ABDOMEN: Soft, nontender. No hepatosplenomegaly, normal bowel sounds, no guarding or rigidity. EXTREMITIES: No clubbing, 1 plus lower extremity edema no cyanosis, 2+ pulses and upper and lower extremities. MUSCULOSKELETAL: Muscle strength and tone normal. SPINE: No scoliosis or deformity SKIN: No rashes CENTRAL NERVOUS SYSTEM: Alert and oriented -3. No focal deficits, tone is normal in all 4 extremities. PSYCHIATRIC: Alert and oriented -3. Appropriate affect. Intact judgment and insight. - Labs CBC & Chem 7: 01/17/21 19:10 01/21/21 07:20 Labs: Abnormal Lab Results - Last 24 Hours (Table) 01/20/21 01/20/21 01/21/21 Range/Units 16:49 20:23 07:20 Chloride 91 L (98-107) mmol/L Carbon Dioxide 39 H (22-30) mmol/L BUN 45 H (9-20) mg/dL Creatinine 1.35 H (0.66-1.25) mg/dL POC Glucose (mg/dL) 158 H 157 H (75-99) mg/dL Assessment and Plan Plan: Assessment: #1. Acute on chronic hypoxic respiratory failure related to acute exacerbation of systolic CHF, with mildly impaired left ventricle systolic function and EF of 45-50%. COVID-19 PCR was negative #2. Mild exacerbation of chronic obstructive pulmonary disease related to the above #3. A. fib with RVR, patient continues on Cardizem infusion at 10 mg per hour, he is on home dose amiodarone 200 mg twice daily and home dose Eliquis 5 mg daily #4. History of chronic A. fib, with previous cardioversion #5. Severe pulmonary hypertension, with right-sided pressure of 66 mmHg likely related to history of COPD #6. Hypertension #7. Chronic nicotine dependence, currently in remission, quit smoking 2 months ago #8. 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 Hearing disorder #10. History of obstructive sleep apnea noncompliant with his home CPAP Plan: Continue oral prednisone, continue bronchodilators Patient's heart rate still poorly controlled, Rate control medications and anticoagulation per cardiology Continues on diuretics, he is maintaining negative fluid balance Patient is scheduled for cardioversion today Follow-up chest x-ray in the morning, follow-up labs I performed a history & physical examination of the patient and discussed their management with my nurse practitioner, Bridget Roy. I reviewed the nurse practitioner's note and agree with the documented findings and plan of care. Lung sounds are positive for crackles throughout the lung farah. The findings and the impression was discussed with the patient. I attest to the documentation by the nurse practitioner. Time with Patient: Less than 30
--- NOTE | 2021-01-21 13:28 | P.PN ---
Subjective This is a pleasant 75 years old male with past medical history of atrial fibrillation, COPD, hypertension, hyperlipidemia, osteoarthritis, right nep hrectomy, legally blind. Presents because of worsening dyspnea and some little chest pain and tightness and this left side radiating to the center. Nonspecific. [place] Like tightness and draped in -09/15 and currently feels better now patient also complaining from worsening exertional dyspnea, currently he has difficulty walking because of his oxygen status . The to cough with occasional white phlegm also patient is on 4 L of oxygen at home, and a prednisone 5 mg daily. His bronc breaker is Dr. Ware Patient is afebrile, he is tachycardic with heart rate 123-142. Blood pressure is stable patient is tachypneic at 24 and hypoxic saturating 90-97% on 4 L oxygen via nasal cannula. CBC is unremarkable except for mild anemia at 11.4. There is normal at 1.1. Creatinine is 1.3 which is at baseline of 1.2-1.4 TSH is normal at 1.5 Coronavirus not detected chest x-ray showed cardiomegaly with prominence of the lung interstitial small right pleural effusion In the emergency room patient was started on Cardizem drip and cardiology team were consulted Currently he is on Cardizem drip at 10 mg/h 01/19/2021 Patient with no chest pain but still short of breath and he has decreased air entry with significant leg swelling, on chest exam he has bilateral crepitation. Oxygen saturation is at baseline at 24 L, at home he uses 4 L oxygen. His labs are stable and creatinine is slightly better at 1.5 today. Chest x-ray showing right pleural effusion with associated atelectasis versus infiltrate. Patient of pneumonia is low with no fever or leukocytosis. An echo from 11/2020 showing ejection fraction of 45-50%. TSH is normal at 1.5 He remains on Eliquis, Cardizem drip at 10 mg per hour, IV Lasix 40 mg twice daily and steroids are switched to prednisone 40 mg by pulmonary team. 01/20/2021 She does not see much difference since he came in both the sitting in bed most of the time. His breathing examination looks better. He is at baseline of 4 L oxygen via nasal cannula. Normal however his heart rate is a still uncontrolled around 116 today. Blood pressure is 104/54. Digoxin has been admitted today by packaging clerk on the top of his metoprolol 75 mg 3 times a day and amiodarone. His IV Lasix to switch to Bumex 2 mg twice a day Continue on a prednisone 40 mg per shop router 01/21/2021 Herman looks generally stable but he still complains from the same symptoms he came into the hospital with. he is basically breathing quietly at rest, with some fluid overload with extensive edema in the legs but he got some exertional dyspnea when he walks, he is also big heavy habitus with BMI of 42.5. He is kept on amiodarone 200 mg twice a day, and metoprolol 25 mg twice a day and dig oxin was added yesterday his heart rate was 105 this morning however it was 88R on, we'll keep monitoring. The case with cardiology team and possible his going for a OSWALDO tomorrow and possible cardioversion. Objective - Vital Signs Vital signs: Vital Signs Temp 97.9 F 01/21/21 11:43 Pulse 60 01/21/21 11:59 Resp 18 01/21/21 11:43 BP 117/70 01/21/21 11:43 Pulse Ox 97 01/21/21 11:43 Intake & Output 01/20/21 01/21/21 01/21/21 18:59 06:59 18:59 Intake Total 480 0 Output Total 650 1700 Balance -170 -1700 0 Weight 134.4 kg Intake: Oral 480 0 Output: Urine 650 1700 Other: # Voids 1 1 # Bowel Movements 1 1 - Exam -GENERAL: The patient is alert and oriented x3, not in any acute distress. Obese HEENT: Pupils are round and equally reacting to light. EOMI. No scleral icterus. No conjunctival pallor. Normocephalic, atraumatic. No pharyngeal erythema. No thyromegaly. CARDIOVASCULAR: S1 and S2 present. No murmurs, rubs, or gallops. -PULMONARY: Chest is clear to auscultation, bilateral crepitation with decreased air entry on both sides ABDOMEN: Soft, nontender, nondistended, normoactive bowel sounds. No palpable organomegaly. MUSCULOSKELETAL: No joint swelling or deformity. -EXTREMITIES: No cyanosis, clubbing, bilateral pitting leg edema NEUROLOGICAL: Gross neurological examination did not reveal any focal deficits. SKIN: No rashes. no petechiae. - Labs CBC & Chem 7: 01/17/21 19:10 01/21/21 07:20 Labs: Abnormal Lab Results - Last 24 Hours (Table) 01/20/21 01/20/21 01/21/21 Range/Units 16:49 20:23 07:20 Chloride 91 L (98-107) mmol/L Carbon Dioxide 39 H (22-30) mmol/L BUN 45 H (9-20) mg/dL Creatinine 1.35 H (0.66-1.25) mg/dL POC Glucose (mg/dL) 158 H 157 H (75-99) mg/dL Assessment and Plan Assessment: A. fib with RVR , currently is on Eliquis acute on chronic systolic CHF with ejection fraction 45-50% COPD, with mild acute exacerbation Acute on chronic hypoxic respiratory failure Chronic kidney disease liver enzymes are unremarkable. Troponin is negative less than 0.012. 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 fib and RVR and hypoxia and tachypnea patient is on Bumex 2 mg twice a day Continue with metoprolol, amiodarone and digoxin. Continue with Eliquis. Continue with telemetry and cardiology consult Continue with the prednisone 40 mg. Continue with bronchodilator and oxygen therapy. Possible cardioversion in the morning if no improvement Labs and medication were reviewed.. Continue same treatment. Continue with symptomatic treatment. Resume home medication. Monitor lytes and vitals. DVT and GI prophylaxis. Further recommendations as per clinical course of the patient DVT prophylaxis Eliquis GI Prophylaxis: Pepcid PT/OT: Home health care Prognosis is guarded
[2021-01-21] MEDS ORDERED: LACTATED RINGERS 1,000 ML IV ONE (14:22)
[2021-01-21] MEDS ORDERED: PROPOFOL 10 MG/ML 20 ML VIAL IV ONE (14:30)
--- NOTE | 2021-01-21 15:11 | PCN ---
PROCEDURE NOTE DATE OF PROCEDURE: 01/21/2021 PROCEDURE PERFORMED: Successful cardioversion of atrial fibrillation to normal sinus mechanism using 75 joules on first attempt. PERFORMING PHYSICIAN: Manfred Rodgers MD. INDICATION: Atrial fibrillation, uncontrolled on medical treatment. PROCEDURE DESCRIPTION: After obtaining informed consent, the patient was brought to the recovery room. Pulse oximetry and heart rate monitors were attached to the patient. Subsequently, the patient was sedated using propofol with FRONT END WEB DEVELOPER in the room. The patient then cardioverted from atrial fibrillation to normal sinus mechanism using 75 joules on first attempt. CONCLUSION: Successful cardioversion of atrial fibrillation to normal sinus mechanism using 75 joules on first attempt. MMODL / IJN: [id number] /
[2021-01-21 17:11] LABS: Glucose,Whole Blood 193 mg/dL (75-99)
[2021-01-21 20:13] LABS: Glucose,Whole Blood 166 mg/dL (75-99)
[2021-01-21] MEDS: traZODone HCL 50 MG TAB PO SCH (22:25)
[2021-01-22 06:42] LABS: Glucose,Whole Blood 91 mg/dL (75-99)
[2021-01-22] MEDS: INSULIN ASPART (NovoLOG) 100 UNIT/ML VIAL SQ SCH ×4 (06:50→21:19)
[2021-01-22 07:02] LABS: Basophils % (A) 0 %; Eosinophils % (A) 0 %; HCT 37.9 % (39.0-53.0); HGB 12.1 gm/dL (13.0-17.5); Hypochromasia Slight; Lymphocytes # (A) 0.6 k/uL (1.0-4.8); Lymphocytes % (A) 6 %; MCH 32.2 pg (25.0-35.0); MCHC 31.8 g/dL (31.0-37.0); MCV 101.1 fL (80.0-100.0); Macrocytosis Slight; Mean Platelet Volume 7.8; Monocytes # (A) 0.9 k/uL (0-1.0); Monocytes % (A) 8 %; Neutrophils # (A) 9.1 k/uL (1.3-7.7); Neutrophils % (A) 84 %; Platelet Count 226 k/uL (150-450); RBC 3.75 m/uL (4.30-5.90); RDW 14.4 % (11.5-15.5); WBC 10.9 k/uL (3.8-10.6)
[2021-01-22 07:14] LABS: Calcium 8.5 mg/dL (8.4-10.2); Potassium 3.9 mmol/L (3.5-5.1)
--- NOTE | 2021-01-22 07:45 | XR ---
EXAMINATION TYPE: XR chest 1V portable DATE OF EXAM: 01/22/2021 CLINICAL HISTORY: Difficulty breathing progress study. TECHNIQUE: Single AP portable upright view of the chest is obtained. COMPARISON: Chest x-ray from 3 days earlier and older studies FINDINGS: Persistent cardiomegaly with small to moderate size right pleural effusion and associated basilar opacity. Tiny left pleural effusion with associated patchy atelectasis and/or infiltrate is p resent currently. Osseous structures remaining intact. IMPRESSION: Cardiomegaly with small to moderate size right pleural effusion and tiny left pleural eff usion with associated right greater than left bibasilar atelectasis and/or infiltrate now present. Ri ght-sided findings not significantly changed from most recent x-ray
[2021-01-22] MEDS: SYMBICORT 160-4.5 MCG INHALER INHALATION SCH ×2 (08:35→19:05)
[2021-01-22] MEDS: IPRATROPIUM-ALBUTEROL 3 ML NEB INHALATION SCH ×4 (08:35→19:06)
[2021-01-22] MEDS: DIGOXIN 250 MCG TAB PO SCH (08:57)
[2021-01-22] MEDS: APIXABAN 5 MG TAB PO SCH ×2 (08:57→21:19)
[2021-01-22] MEDS: AMIODARONE 200 MG TAB PO SCH ×2 (08:57→21:19)
[2021-01-22] MEDS: METOPROLOL TARTRATE 25 MG TAB PO SCH ×3 (08:58→21:19)
[2021-01-22] MEDS: Roflumilast [Daliresp] 500 MCG Tablet PO SCH (08:58)
[2021-01-22] MEDS: FAMOTIDINE 20 MG TAB PO SCH ×2 (08:58→21:19)
[2021-01-22] MEDS: BUMETANIDE 1 MG TAB PO SCH (08:58)
[2021-01-22] MEDS: predniSONE 20 MG TAB PO SCH (08:58)
[2021-01-22] MEDS: ESCITALOPRAM 10 MG TAB PO SCH (08:58)
[2021-01-22] MEDS: ARTIFICIAL TEARS-HYPROMELLOSE DROPS 15 ML BTL BOTH EYES SCH ×4 (08:59→21:20)
[2021-01-22] MEDS ORDERED: BUMETANIDE 0.25 MG/ML 10 ML VIAL IV SCH (10:30)
[2021-01-22 12:06] LABS: Glucose,Whole Blood 104 mg/dL (75-99)
--- NOTE | 2021-01-22 13:31 | P.PN ---
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 He states he has been increasing trouble over the last couple of weeks. He had some mild chest pain which had resolved spontaneously. Also reports an episode of drooling couple days ago, and was concerned about a possibility of TIA. He is on Eliquis on an outpatient basis. He reports increasing edema in his lower extremities, no fever or chills, no cough or chest congestion. No nausea, vomiting or diarrhea, no abdominal pain. His chest x-ray in the emergency department show cardi omegaly with prominence of the lung interstitium and small right pleural effusion. EKG showed A. fib with RVR with a rate of 141 BPM. Patient was started on IV Cardizem in the emergency department at 10 mg per hour for rate control, he is on home dose amiodarone 200 mg twice a day on which he continues, he is already on Eliquis 5 mg twice daily, currently his heart rate is better controlled, on 2 L of oxygen has pulse ox is 90-92%, he was generally fluid overloaded, short of breath, and his chest x-ray showed just showed prominence, and small right plural effusion.. Cardiology started the patient on IV diuretics 40 mg of Lasix every 12 hours, he is in -773 mL fluid balance over the last 24 hours, has quite a bit of swelling in bilateral lower extremities, follow-up chest x-ray today shows cardiomegaly persistent mild to moderate size right pleural effusion. No fever or chills, he tested negative for COVID-19, his baseline FEV1 is 19% of predicted, patient follows with Dr. Ware in the pulmonary clinic, he is on albuterol inhaler, and Advair in addition to Spiriva on an outpatient basis, in addition he is on maintenance dose prednisone 5 mg daily. On 01/20/2021 patient seen in follow-up on medical surgical floor. Patient is currently on 5 L of oxygen, he still has exertional dyspnea just walking to the bathroom, but seems to be in no acute distress. Cardizem drip has been discontinued, he still remains in A. fib with RVR with a rate of 129. Cardiology is following and patient is being loaded with digoxin. No IV fluids. And his IV fluids have been hep-locked, his been afebrile. Vital signs have been stable, he is on nebulized bronchodilators, he is on oral prednisone. He is on Bumex, and he is in negative fluid balance. On 02/01/2021 patient seen in follow-up on selective care unit, he remains in atrial fibrillation, and the rate is still uncontrolled, currently at 126, he is off the Cardizem infusion, he was loaded with digoxin yesterday, he is on met oprolol 75 mg 3 times daily, and continues on maintenance dose of digoxin. He states he is still quite short of breath with any exertion, and walking only short distances in the room, remains on 4 L of oxygen pulse ox 97%, afebrile, remains on bronchodilators, including Symbicort, and DuoNeb, he is on oral prednisone 40 mg daily, is on Bumex 2 mg twice daily. Patient is on Eliquis, and cardiology is planning on cardioversion today. On 01/22/2021 patient seen in follow-up on selective care unit, he is sitting up on the edge of the bed, he does not feel like he is improving, although he seems quite comfortable, does not appear to be in any acute distress, he states he feels tired, but seems to be breathing comfortably, he continues on oral Bumex 2 mg twice daily, he is in negative fluid balance, his weight is down by 4.4 kg in the last 24 hours, he is currently on 4 L of oxygen, his pulse ox is 88%, no fever or chills, no complaints of chest discomfort, he status post transesophageal echocardiogram and cardioversion on 01/21/2021. The seizure was successful, and patient converted to sinus mechanism utilizing 75 J on the first attempt. Vital signs have been stable, blood pressure stable, 106/50, she remains on oral diuretics, he remains on oral amiodarone, and Eliquis in additi on to digoxin, he is on nebulized bronchodilators, he is on oral prednisone 40 mg daily, his chest x-ray shows cardiomegaly with small to moderate-sized right pleural effusion and tiny left pleural effusion with associated bibasilar atelectasis. In the findings are relatively stable compared to most recent chest x-ray. Objective - Vital Signs Vital signs: Vital Signs Temp 98.2 F 01/22/21 12:00 Pulse 69 01/22/21 12:00 Resp 20 01/22/21 12:00 BP 106/50 01/22/21 12:00 Pulse Ox 88 L 01/22/21 12:00 Intake & Output 01/21/21 01/22/21 01/22/21 18:59 06:59 18:59 Intake Total 300 240 Output Total 500 650 Balance -200 -410 Weight 130 kg Intake: IV 300 Oral 0 240 Output: Urine 500 650 Other: # Voids 1 1 # Bowel Movements 1 - Exam GENERAL EXAM: Alert, very pleasant, 75-year-old on 4 L of oxygen, with pulse ox of 88% comfortable in no apparent distress. HEAD: Normocephalic/atraumatic. EYES: Normal reaction of pupils, equal size. Conjunctiva pink, sclera white. NOSE: Clear with pink turbinates. THROAT: No erythema or exudates. NECK: No masses, no JVD, no thyroid enlargement, no adenopathy. CHEST: No chest wall deformity. Symmetrical expansion. LUNGS: Equal air entry with no crackles, wheeze, rhonchi or dullness. CVS: regular rate and rhythm currently with a controlled rate, normal S1 and S2, no gallops, no murmurs, no rubs ABDOMEN: Soft, nontender. No hepatosplenomegaly, normal bowel sounds, no guard ing or rigidity. EXTREMITIES: No clubbing, 1 plus lower extremity edema no cyanosis, 2+ pulses and upper and lower extremities. MUSCULOSKELETAL: Muscle strength and tone normal. SPINE: No scoliosis or deformity SKIN: No rashes CENTRAL NERVOUS SYSTEM: Alert and oriented -3. No focal deficits, tone is normal in all 4 extremities. PSYCHIATRIC: Alert and oriented -3. Appropriate affect. Intact judgment and insight. - Labs CBC & Chem 7: 01/22/21 06:08 01/22/21 06:08 Labs: Abnormal Lab Results - Last 24 Hours (Table) 01/21/21 01/21/21 01/22/21 Range/Units 17:08 20:07 06:08 WBC (3.8-10.6) k/uL RBC (4.30-5.90) m/uL Hgb (13.0-17.5) gm/dL Hct (39.0-53.0) % MCV (80.0-100.0) fL Neutrophils # (1.3-7.7) k/uL Lymphocytes # (1.0-4.8) k/uL Chloride 91 L (98-107) mmol/L Carbon Dioxide 40 H (22-30) mmol/L BUN 41 H (9-20) mg/dL POC Glucose (mg/dL) 193 H 166 H (75-99) mg/dL 01/22/21 01/22/21 Range/Units 06:08 11:56 WBC 10.9 H (3.8-10.6) k/uL RBC 3.75 L (4.30-5.90) m/uL Hgb 12.1 L (13.0-17.5) gm/dL Hct 37.9 L (39.0-53.0) % MCV 101.1 H (80.0-100.0) fL Neutrophils # 9.1 H (1.3-7.7) k/uL Lymphocytes # 0.6 L (1.0-4.8) k/uL Chloride (98-107) mmol/L Carbon Dioxide (22-30) mmol/L BUN (9-20) mg/dL POC Glucose (mg/dL) 104 H (75-99) mg/dL Assessment and Plan Plan: Assessment: #1. Acute on chronic hypoxic respiratory failure related to acute exacerbation of systolic CHF, with mildly impaired left ventricle systolic function and EF of 45-50%. COVID-19 PCR was negative #2. Mild exacerbation of chronic obstructive pulmonary disease related to the above #3. A. fib with RVR, patient continues on Cardizem infusion at 10 mg per hour, he is on home dose amiodarone 200 mg twice daily and home dose Eliquis 5 mg daily. Status post OSWALDO and successful cardioversion on 01/21/2021 #4. History of chronic A. fib, with previous cardioversion #5. Severe pulmonary hypertension, with right-sided pressure of 66 mmHg likely related to history of COPD #6. Hypertension #7. Chronic nicotine dependence, currently in remission, quit smoking 2 months ago #8. 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 Hearing disorder #10. History of obstructive sleep apnea noncompliant with his home CPAP Plan: Continue Bumex Today's chest x-ray has been reviewed showing right greater than left pleural effusions and adjacent atelectasis Patient is maintaining negative fluid balance No worsening in his dyspnea Continue oral prednisone Continue nebulized bronchodilators I performed a history & physical examination of the patient and discussed their management with my nurse practitioner, Bridget Roy. I reviewed the nurse practitioner's note and agree with the documented findings and plan of care. Lung sounds are positive for crackles throughout the lung farah. The findings and the impression was discussed with the patient. I attest to the documentation by the nurse practitioner. Time with Patient: Less than 30
--- NOTE | 2021-01-22 13:46 | P.PN ---
Subjective This is a pleasant 74-year-old male past medical history significant for chronic atrial fibrillation (diagnosed in November 2020), hypertension, non obstructive coronary artery disease, dyslipidemia, and COPD, obstructive sleep apnea uses CPAP, former etoh, nicotine dependence. He follows in the office with Dr. Rodgers. We have been asked to see in consultation for atrial fibrillation with RVR. Patient presented to the emergency department with worsening shortness of breath, palpitations. Patient recently admitted to the hospital on / for newly diagnosed atrial fibrillation. At that time patient was having symptoms of feeling tired, fatigued and no energy. He also had increased shortness of breath with exertion for 2-3 weeks that progressively getting worse. He presents to appointment with Dr. Rodgers on 11/25/20, he was tachycardic and EKG was performed and was found to be in atrial fibrillation with rapid ventricular response and was sent to the emergency department. Echocardiogram left ventricular systolic function is mildly impaired with an EF of 45-50%, right ventricle is moderately to severely enlarged, mild mitral regurgitation, moderate to severe tricuspid regurgitation, severe pulmonary hypertension with an RVSP of 65.9 mmHg. He underwent successful OSWALDO cardioversion with Dr. Rodgers and has been doing well since then. 01/22/21 Patient seen and examined at bedside. He is s/p successful OSWALDO cardioversion with Dr. Rodgers on 01/21. Continues to have shortness of breath. He states he is still just not feeling well. Telemetry reviewed patient is maintaining sinus mechanism HR 55-60s. Blood pressure 132/62, heart rate 70 on 4L nasal cannular SpO2 88%. He continues to be maintained on metoprolol tartrate 75 mg TID, amiodarone 200 mg twice a day, anticoagulated on Eliquis 5 mg twice a day, Bumex 2mg BID, digoxin 250mg daily. Patient with 2.3L urine output over the past 24 hours. Laboratory data reviewed sodium 139, potassium 3.9, BUN 41, serum creatinine 1.19(1.24 yesterday). PHYSICAL EXAMINATION CONSTITUTIONAL: No acute distress HEENT: Head is normocephalic. No JVD. CHEST EXAMINATION: Lungs diminished, decreased air exchange bilaterally No chest wall tenderness is noted on palpation or with deep breathing. HEART EXAMINATION: Regular rate and rhythm. S1, S2 heard. Systolic murmur noted left sternal border ABDOMEN: Soft, nontender. Positive bowel sounds. EXTREMITIES: 2+ peripheral pulses 2+ bilateral lower extremity extremity edema and no calf tenderness. NEUROLOGIC EXAMINATION: Patient is awake, alert and oriented x3. ASSESSMENT Shortness of breath, most likely multifactorial due to atrial fibrillation with RVR, COPD and congestive heart failure, pulmonary hypertension Chronic atrial fibrillation with rapid ventricular response - [id number] score 3 on Eliquis s/p OSWALDO cardioversion 01/21 Acute systolic heart failure- mildly impaired EF 45-50% Severe pulmonary hypertension Hypertension Nonobstructive coronary artery disease Dyslipidemia COPD Objective sleep apnea Chronic nicotine dependence PLAN -Start IV Bumex 2mg BID -Continue Digoxin PO 250mg daily, metoprolol tartrate to 75mg TID and amiodarone 200mg BID -IV cardizem drip is off. -Continue Eliquis 5mg BID -I/Os, Daily weights -Monitor renal function and electrolytes. -Continue cardiac telemetry -Patient could benefit from an ablation in the future, this can be discussed as an outpatient -Further recommendations based on clinical course Nurse Practitioner note has been reviewed, I agree with a documented findings and plan of care. Patient was seen and examined. Objective - Vital Signs Vital signs: Vital Signs Temp 98.2 F 01/22/21 12:00 Pulse 69 01/22/21 12:00 Resp 20 01/22/21 12:00 BP 106/50 01/22/21 12:00 Pulse Ox 88 L 01/22/21 12:00 Intake & Output 01/21/21 01/22/21 01/22/21 18:59 06:59 18:59 Intake Total 300 240 Output Total 500 650 Balance -200 -410 Weight 130 kg Intake: IV 300 Oral 0 240 Output: Urine 500 650 Other: # Voids 1 1 # Bowel Movements 1 - Labs CBC & Chem 7: 01/22/21 06:08 01/22/21 06:08 Labs: Abnormal Lab Results - Last 24 Hours (Table) 01/21/21 01/21/21 01/22/21 Range/Units 17:08 20:07 06:08 WBC (3.8-10.6) k/uL RBC (4.30-5.90) m/uL Hgb (13.0-17.5) gm/dL Hct (39.0-53.0) % MCV (80.0-100.0) fL Neutrophils # (1.3-7.7) k/uL Lymphocytes # (1.0-4.8) k/uL Chloride 91 L (98-107) mmol/L Carbon Dioxide 40 H (22-30) mmol/L BUN 41 H (9-20) mg/dL POC Glucose (mg/dL) 193 H 166 H (75-99) mg/dL 01/22/21 01/22/21 Range/Units 06:08 11:56 WBC 10.9 H (3.8-10.6) k/uL RBC 3.75 L (4.30-5.90) m/uL Hgb 12.1 L (13.0-17.5) gm/dL Hct 37.9 L (39.0-53.0) % MCV 101.1 H (80.0-100.0) fL Neutrophils # 9.1 H (1.3-7.7) k/uL Lymphocytes # 0.6 L (1.0-4.8) k/uL Chloride (98-107) mmol/L Carbon Dioxide (22-30) mmol/L BUN (9-20) mg/dL POC Glucose (mg/dL) 104 H (75-99) mg/dL
--- NOTE | 2021-01-22 15:31 | P.PN ---
Subjective This is a pleasant 75 years old male with past medical history of atrial fibrillation, COPD, hypertension, hyperlipidemia, osteoarthritis, right nep hrectomy, legally blind. Presents because of worsening dyspnea and some little chest pain and tightness and this left side radiating to the center. Nonspecific. [place] Like tightness and draped in -09/15 and currently feels better now patient also complaining from worsening exertional dyspnea, currently he has difficulty walking because of his oxygen status . The to cough with occasional white phlegm also patient is on 4 L of oxygen at home, and a prednisone 5 mg daily. His coater hand is Dr. Ware Patient is afebrile, he is tachycardic with heart rate 123-142. Blood pressure is stable patient is tachypneic at 24 and hypoxic saturating 90-97% on 4 L oxygen via nasal cannula. CBC is unremarkable except for mild anemia at 11.4. There is normal at 1.1. Creatinine is 1.3 which is at baseline of 1.2-1.4 TSH is normal at 1.5 Coronavirus not detected chest x-ray showed cardiomegaly with prominence of the lung interstitial small right pleural effusion In the emergency room patient was started on Cardizem drip and cardiology team were consulted Currently he is on Cardizem drip at 10 mg/h 01/19/2021 Patient with no chest pain but still short of breath and he has decreased air entry with significant leg swelling, on chest exam he has bilateral crepitation. Oxygen saturation is at baseline at 24 L, at home he uses 4 L oxygen. His labs are stable and creatinine is slightly better at 1.5 today. Chest x-ray showing right pleural effusion with associated atelectasis versus infiltrate. Patient of pneumonia is low with no fever or leukocytosis. An echo from 11/2020 showing ejection fraction of 45-50%. TSH is normal at 1.5 He remains on Eliquis, Cardizem drip at 10 mg per hour, IV Lasix 40 mg twice daily and steroids are switched to prednisone 40 mg by pulmonary team. 01/20/2021 She does not see much difference since he came in both the sitting in bed most of the time. His breathing examination looks better. He is at baseline of 4 L oxygen via nasal cannula. Normal however his heart rate is a still uncontrolled around 116 today. Blood pressure is 104/54. Digoxin has been admitted today by lacquer mixer on the top of his metoprolol 75 mg 3 times a day and amiodarone. His IV Lasix to switch to Bumex 2 mg twice a day Continue on a prednisone 40 mg per cork floor installer 01/21/2021 Herman looks generally stable but he still complains from the same symptoms he came into the hospital with. he is basically breathing quietly at rest, with some fluid overload with extensive edema in the legs but he got some exertional dyspnea when he walks, he is also big heavy habitus with BMI of 42.5. He is kept on amiodarone 200 mg twice a day, and metoprolol 25 mg twice a day and dig oxin was added yesterday his heart rate was 105 this morning however it was 88R on, we'll keep monitoring. The case with cardiology team and possible his going for a OSWALDO tomorrow and possible cardioversion. 01/22/2021 Patient is to see him since he came in with his respiratory status is is in significant fluid overload with significant bilateral pleural effusion and like edema and swelling. He has exertional dyspnea. Today he was started on IV Bumex by lacquer mixer While his heart rate is controlled with metoprolol, amiodarone and digoxin. E Learning Specialist recommended considering ablation which can be discussed and done as an outpatient. Other than that he is hemodynamically stable. Creatinine improved down to 1.1. He is saturating 88% on baseline of 4 L/m of oxygen. Continue on Eliquis, IV Bumex, prednisone 40 mg daily. Objective - Vital Signs Vital signs: Vital Signs Temp 98.2 F 01/22/21 12:00 Pulse 69 01/22/21 14:00 Resp 20 01/22/21 14:00 BP 106/50 01/22/21 12:00 Pulse Ox 88 L 01/22/21 12:00 Intake & Output 01/21/21 01/22/21 01/22/21 18:59 06:59 18:59 Intake Total 300 420 Output Total 500 650 Balance -200 -230 Weight 130 kg Intake: IV 300 Oral 0 420 Output: Urine 500 650 Other: # Voids 1 1 # Bowel Movements 1 - Exam -GENERAL: The patient is alert and oriented x3, not in any acute distress. Obese HEENT: Pupils are round and equally reacting to light. EOMI. No scleral icterus. No conjunctival pallor. Normocephalic, atraumatic. No pharyngeal erythema. No thyromegaly. CARDIOVASCULAR: S1 and S2 present. No murmurs, rubs, or gallops. -PULMONARY: Chest is clear to auscultation, bilateral crepitation with decreased air entry on both sides ABDOMEN: Soft, nontender, nondistended, normoactive bowel sounds. No palpable organomegaly. MUSCULOSKELETAL: No joint swelling or deformity. -EXTREMITIES: No cyanosis, clubbing, bilateral pitting leg edema NEUROLOGICAL: Gross neurological examination did not reveal any focal deficits. SKIN: No rashes. no petechiae. - Labs CBC & Chem 7: 01/22/21 06:08 01/22/21 06:08 Labs: Abnormal Lab Results - Last 24 Hours (Table) 01/21/21 01/21/21 01/22/21 Range/Units 17:08 20:07 06:08 WBC (3.8-10.6) k/uL RBC (4.30-5.90) m/uL Hgb (13.0-17.5) gm/dL Hct (39.0-53.0) % MCV (80.0-100.0) fL Neutrophils # (1.3-7.7) k/uL Lymphocytes # (1.0-4.8) k/uL Chloride 91 L (98-107) mmol/L Carbon Dioxide 40 H (22-30) mmol/L BUN 41 H (9-20) mg/dL POC Glucose (mg/dL) 193 H 166 H (75-99) mg/dL 01/22/21 01/22/21 Range/Units 06:08 11:56 WBC 10.9 H (3.8-10.6) k/uL RBC 3.75 L (4.30-5.90) m/uL Hgb 12.1 L (13.0-17.5) gm/dL Hct 37.9 L (39.0-53.0) % MCV 101.1 H (80.0-100.0) fL Neutrophils # 9.1 H (1.3-7.7) k/uL Lymphocytes # 0.6 L (1.0-4.8) k/uL Chloride (98-107) mmol/L Carbon Dioxide (22-30) mmol/L BUN (9-20) mg/dL POC Glucose (mg/dL) 104 H (75-99) mg/dL Assessment and Plan Assessment: A. fib with RVR , currently is on Eliquis acute on chronic systolic CHF with ejection fraction 45-50% COPD, with mild acute exacerbation Acute on chronic hypoxic respiratory failure Chronic kidney disease liver enzymes are unremarkable. Troponin is negative less than 0.012. 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 fib and RVR and hypoxia and tachypnea patient is on iv Bumex 2 mg twice a day Continue with metoprolol, amiodarone and digoxin. Continue with Eliquis. Continue with telemetry and cardiology consult Continue with the prednisone 40 mg. Continue with bronchodilator and oxygen therapy. Possible cardioversion in the morning if no improvement Labs and medication were reviewed.. Continue same treatment. Continue with symptomatic treatment. Resume home medication. Monitor lytes and vitals. DVT and GI prophylaxis. Further recommendations as per clinical course of the patient DVT prophylaxis Eliquis GI Prophylaxis: Pepcid PT/OT: Home health care Prognosis is guarded
[2021-01-22 16:31] LABS: Glucose,Whole Blood 136 mg/dL (75-99)
[2021-01-22] MEDS: BUMETANIDE 0.25 MG/ML 10 ML VIAL IV SCH (16:42)
[2021-01-22 19:47] LABS: Glucose,Whole Blood 163 mg/dL (75-99)
[2021-01-22] MEDS: traZODone HCL 50 MG TAB PO SCH (21:19)
[2021-01-23] MEDS: BUMETANIDE 0.25 MG/ML 10 ML VIAL IV SCH ×2 (04:16→16:16)
[2021-01-23 05:46] LABS: Glucose,Whole Blood 121 mg/dL (75-99)
[2021-01-23] MEDS: INSULIN ASPART (NovoLOG) 100 UNIT/ML VIAL SQ SCH ×4 (05:53→21:18)
[2021-01-23] MEDS: SYMBICORT 160-4.5 MCG INHALER INHALATION SCH ×2 (07:42→20:43)
[2021-01-23] MEDS: IPRATROPIUM-ALBUTEROL 3 ML NEB INHALATION SCH ×4 (07:42→20:43)
[2021-01-23 09:00] LABS: Calcium 8.6 mg/dL (8.4-10.2); Magnesium 1.4 mg/dL (1.6-2.3); Potassium 3.4 mmol/L (3.5-5.1)
[2021-01-23] MEDS: FAMOTIDINE 20 MG TAB PO SCH ×2 (09:38→21:13)
[2021-01-23] MEDS: METOPROLOL TARTRATE 25 MG TAB PO SCH ×3 (09:38→21:13)
[2021-01-23] MEDS: APIXABAN 5 MG TAB PO SCH ×2 (09:38→21:13)
[2021-01-23] MEDS: AMIODARONE 200 MG TAB PO SCH ×2 (09:38→21:13)
[2021-01-23] MEDS: DIGOXIN 250 MCG TAB PO SCH (09:38)
[2021-01-23] MEDS: predniSONE 20 MG TAB PO SCH (09:38)
[2021-01-23] MEDS: ESCITALOPRAM 10 MG TAB PO SCH (09:38)
[2021-01-23] MEDS: Roflumilast [Daliresp] 500 MCG Tablet PO SCH (09:39)
[2021-01-23] MEDS ORDERED: Potassium Replacement Protocol 1 EACH MISC MISCELLANE PRN ×2 (09:41→09:46)
[2021-01-23] MEDS: ARTIFICIAL TEARS-HYPROMELLOSE DROPS 15 ML BTL BOTH EYES SCH ×4 (09:41→21:15)
[2021-01-23] MEDS ORDERED: Magnesium Replacement Protocol 1 EACH MISC MISCELLANE PRN ×2 (09:42→09:46)
[2021-01-23] MEDS: POTASSIUM CHLORIDE ER 20 MEQ TAB.ER PO SCH ×2 (11:38→13:09)
[2021-01-23] MEDS: MAGNESIUM SULFATE-D5W PMX 1 GM in DEXTROSE/WATER 1 100ML.BAG IVPB SCH ×3 (11:38→16:16)
[2021-01-23] MEDS: acetaZOLAMIDE 250 MG TAB PO SCH (11:38)
[2021-01-23 12:11] LABS: Glucose,Whole Blood 110 mg/dL (75-99)
[2021-01-23 13:37] VITALS: BMI 41.8
--- NOTE | 2021-01-23 14:17 | P.PN ---
Subjective This is a pleasant 74-year-old male past medical history significant for chronic atrial fibrillation (diagnosed in November 2020), hypertension, non obstructive coronary artery disease, dyslipidemia, and COPD, obstructive sleep apnea uses CPAP, former etoh, nicotine dependence. He follows in the office with Dr. Rodgers. We have been asked to see in consultation for atrial fibrillation with RVR. Patient presented to the emergency department with worsening shortness of breath, palpitations. Patient recently admitted to the hospital on / for newly diagnosed atrial fibrillation. At that time patient was having symptoms of feeling tired, fatigued and no energy. He also had increased shortness of breath with exertion for 2-3 weeks that progressively getting worse. He presents to appointment with Dr. Rodgers on 11/25/20, he was tachycardic and EKG was performed and was found to be in atrial fibrillation with rapid ventricular response and was sent to the emergency department. Echocardiogram left ventricular systolic function is mildly impaired with an EF of 45-50%, right ventricle is moderately to severely enlarged, mild mitral regurgitation, moderate to severe tricuspid regurgitation, severe pulmonary hypertension with an RVSP of 65.9 mmHg. He underwent successful OSWALDO cardioversion with Dr. Rodgers and has been doing well since then. 01/21/21- Patient underwent successful OSWALDO cardioversion with Dr. Rodgers 01/23/21: Patient seen and examined at bedside, no acute distress. He states he continues to feel short of breath and not feeling well. Telemetry reviewed patient is maintaining sinus mechanism HR 55-60s. Blood pressure 119/50, heart rate 56, afebrile, maintaining oxygen saturations on 4 L nasal cannula. He continues to be maintained on metoprolol tartrate 75 mg TID, amiodarone 200 mg twice a day, anticoagulated on Eliquis 5 mg twice a day, Bumex 2mg BID, digoxin 250mg daily. He is having significant urinary output, negative fluid balance. Patient with 3.4 L urine output over the past 24 hours. Laboratory data reviewed sodium 139, potassium 3.4, BUN 38, serum creatinine 1.21(1.19 yesterday), magnesium 1.4 PHYSICAL EXAMINATION CONSTITUTIONAL: No acute distress, states he continues to feel short of breath. HEENT: Head is normocephalic. No JVD. CHEST EXAMINATION: Lungs diminished, decreased air exchange bilaterally No chest wall tenderness is noted on palpation or with deep breathing. HEART EXAMINATION: Regular rate and rhythm. S1, S2 heard. Systolic murmur noted left sternal border ABDOMEN: Soft, nontender. Positive bowel sounds. EXTREMITIES: 2+ peripheral pulses 2+ bilateral lower extremity extremity edema and no calf tenderness. NEUROLOGIC EXAMINATION: Patient is awake, alert and oriented x3. ASSESSMENT Shortness of breath, most likely multifactorial due to atrial fibrillation with RVR, COPD and congestive heart failure, pulmonary hypertension Chronic atrial fibrillation with rapid ventricular response - [id number] score 3 on Eliquis s/p OSWALDO cardioversion 01/21 Acute systolic heart failure- mildly impaired EF 45-50% Severe pulmonary hypertension Hypertension Nonobstructive coronary artery disease Dyslipidemia COPD Objective sleep apnea Chronic nicotine dependence Hypokalemia Hypomagnesemia PLAN -Replace potassium and magnesium per protocol -Continue Bumex 2mg BID -Continue Digoxin PO 250mg daily, metoprolol tartrate to 75mg TID and amiodarone 200mg BID -Continue Eliquis 5mg BID -I/Os, Daily weights -Monitor renal function and electrolytes. -Continue cardiac telemetry -Patient could benefit from an ablation in the future, this can be discussed as an outpatient -Further recommendations based on clinical course Nurse Practitioner note has been reviewed, I agree with a documented findings and plan of care. Patient was seen and examined. Objective - Vital Signs Vital signs: Vital Signs Temp 97.9 F 01/23/21 08:00 Pulse 88 01/23/21 11:45 Resp 19 01/23/21 08:00 BP 119/58 01/23/21 08:00 Pulse Ox 90 L 01/23/21 08:00 Intake & Output 01/22/21 01/23/21 01/23/21 18:59 06:59 18:59 Intake Total 660 610 Output Total 1300 2100 600 Balance -640 -1490 -600 Weight 132.3 kg 132.3 kg Intake: Oral 660 610 Output: Urine 1300 2100 600 Other: Voiding Method Toilet Toilet Urinal Urinal # Voids 1 1 - Labs CBC & Chem 7: 01/22/21 06:08 01/23/21 08:08 Labs: Abnormal Lab Results - Last 24 Hours (Table) 01/22/21 01/22/21 01/23/21 Range/Units 16:29 19:44 05:44 Potassium (3.5-5.1) mmol/L Chloride (98-107) mmol/L Carbon Dioxide (22-30) mmol/L BUN (9-20) mg/dL Glucose (74-99) mg/dL POC Glucose (mg/dL) 136 H 163 H 121 H (75-99) mg/dL Magnesium (1.6-2.3) mg/dL 01/23/21 01/23/21 Range/Units 08:08 11:50 Potassium 3.4 L (3.5-5.1) mmol/L Chloride 85 L (98-107) mmol/L Carbon Dioxide 45 H* (22-30) mmol/L BUN 38 H (9-20) mg/dL Glucose 120 H (74-99) mg/dL POC Glucose (mg/dL) 110 H (75-99) mg/dL Magnesium 1.4 L (1.6-2.3) mg/dL
--- NOTE | 2021-01-23 14:30 | P.PN ---
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 He states he has been increasing trouble over the last couple of weeks. He had some mild chest pain which had resolved spontaneously. Also reports an episode of drooling couple days ago, and was concerned about a possibility of TIA. He is on Eliquis on an outpatient basis. He reports increasing edema in his lower extremities, no fever or chills, no cough or chest congestion. No nausea, vomiting or diarrhea, no abdominal pain. His chest x-ray in the emergency department show cardiomegaly with prominence of the lung interstitium and small right pleural effusion. EKG showed A. fib with RVR with a rate of 141 BPM. Patient was started on IV Cardizem in the emergency department at 10 mg per hour for rate control, he is on home dose amiodarone 200 mg twice a day on which he continues, he is already on Eliquis 5 mg twice daily, currently his heart rate is better controlled, on 2 L of oxygen has pulse ox is 90-92%, he was generally fluid overloaded, short of breath, and his chest x-ray showed just showed prominence, and small right plural effusion.. Cardiology started the patient on IV diuretics 40 mg of Lasix every 12 hours, he is in -773 mL fluid balance over the last 24 hours, has quite a bit of swelling in bilateral lower extremities, follow-up chest x-ray today shows cardiomegaly persistent mild to moderate size right pleural effusion. No fever or chills, he tested negative for COVID-19, his baseline FEV1 is 19% of predicted, patient follows with Dr. Ware in the pulmonary clinic, he is on albuterol inhaler, and Advair in addition to Spiriva on an outpatient basis, in addition he is on maintenance dose prednisone 5 mg daily. On 01/20/2021 patient seen in follow-up on medical surgical floor. Patient is currently on 5 L of oxygen, he still has exertional dyspnea just walking to the bathroom, but seems to be in no acute distress. Cardizem drip has been discontinued, he still remains in A. fib with RVR with a rate of 129. Cardiology is following and patient is being loaded with digoxin. No IV fluids. And his IV fluids have been hep-locked, his been afebrile. Vital signs have been stable, he is on nebulized bronchodilators, he is on oral prednisone. He is on Bumex, and he is in negative fluid balance. On 02/01/2021 patient seen in follow-up on selective care unit, he remains in atrial fibrillation, and the rate is still uncontrolled, currently at 126, he is off the Cardizem infusion, he was loaded with digoxin yesterday, he is on metoprolol 75 mg 3 times daily, and continues on maintenance dose of digoxin. He states he is still quite short of breath with any exertion, and walking only short distances in the room, remains on 4 L of oxygen pulse ox 97%, afebrile, remains on bronchodilators, including Symbicort, and DuoNeb, he is on oral prednisone 40 mg daily, is on Bumex 2 mg twice daily. Patient is on Eliquis, and cardiology is planning on cardioversion today. On 01/22/2021 patient seen in follow-up on selective care unit, he is sitting up on the edge of the bed, he does not feel like he is improving, although he seems quite comfortable, does not appear to be in any acute distress, he states he feels tired, but seems to be breathing comfortably, he continues on oral Bumex 2 mg twice daily, he is in negative fluid balance, his weight is down by 4.4 kg in the last 24 hours, he is currently on 4 L of oxygen, his pulse ox is 88%, no fever or chills, no complaints of chest discomfort, he status post transesophageal echocardiogram and cardioversion on 01/21/2021. The seizure was successful, and patient converted to sinus mechanism utilizing 75 J on the first attempt. Vital signs have been stable, blood pressure stable, 106/50, she remains on oral diuretics, he remains on oral amiodarone, and Eliquis in addition to digoxin, he is on nebulized bronchodilators, he is on oral prednisone 40 mg daily, his chest x-ray shows cardiomegaly with small to moderate-sized right pleural effusion and tiny left pleural effusion with associated bibasilar atelectasis. In the findings are relatively stable compared to most recent chest x-ray. Reevaluated today on 01/23/2021, patient is feeling a bit better today, remains in sinus rhythm, his rate is 60. Continues to have dyspnea on exertion, but definitely improved compared to his initial presentation. Chest x-ray continues to show small bilateral pleural effusions right more so than left. Patient remains on diuretics/Bumex. Patient is on 4 L nasal cannula, and his O2 saturations 90%. Electrolytes are normal potassium is 3.4 bicarb is 45 BUN is 38 creatinine 1.21 Objective - Vital Signs Vital signs: Vital Signs Temp 97.9 F 01/23/21 08:00 Pulse 88 01/23/21 11:45 Resp 19 01/23/21 08:00 BP 119/58 01/23/21 08:00 Pulse Ox 90 L 01/23/21 08:00 Intake & Output 01/22/21 01/23/21 01/23/21 18:59 06:59 18:59 Intake Total 660 610 Output Total 1300 2100 600 Balance -640 -1490 -600 Weight 132.3 kg 132.3 kg Intake: Oral 660 610 Output: Urine 1300 2100 600 Other: Voiding Method Toilet Toilet Urinal Urinal # Voids 1 1 - Exam GENERAL EXAM: Revealed a 75-year-old white male obese, pleasant, in no distress. HEAD: Normocephalic/atraumatic. EENT: PERRLA, HI, anicteric, no neck masses, no JVD, no stridor. CHEST: No chest wall deformity. . LUNGS: Minimal fine crackles at the bases especially at the right base. Symmetrical chest expansion CVS: regular rate and rhythm currently with a controlled rate, normal S1 and S2, no gallops, no murmurs, no rubs ABDOMEN: Soft, nontender. No hepatosplenomegaly, normal bowel sounds, no guarding or rigidity. EXTREMITIES: No clubbing, 1+ bipedal edema. MUSCULOSKELETAL: Muscle strength and tone normal. SKIN: No rashes CENTRAL NERVOUS SYSTEM: Alert and oriented -3. No gross focal deficit. PSYCHIATRIC: Normal mood affect and normal mental status examination. - Labs CBC & Chem 7: 01/22/21 06:08 01/23/21 08:08 Labs: Abnormal Lab Results - Last 24 Hours (Table) 01/22/21 01/22/21 01/23/21 Range/Units 16:29 19:44 05:44 Potassium (3.5-5.1) mmol/L Chloride (98-107) mmol/L Carbon Dioxide (22-30) mmol/L BUN (9-20) mg/dL Glucose (74-99) mg/dL POC Glucose (mg/dL) 136 H 163 H 121 H (75-99) mg/dL Magnesium (1.6-2.3) mg/dL 01/23/21 01/23/21 Range/Units 08:08 11:50 Potassium 3.4 L (3.5-5.1) mmol/L Chloride 85 L (98-107) mmol/L Carbon Dioxide 45 H* (22-30) mmol/L BUN 38 H (9-20) mg/dL Glucose 120 H (74-99) mg/dL POC Glucose (mg/dL) 110 H (75-99) mg/dL Magnesium 1.4 L (1.6-2.3) mg/dL Assessment and Plan Assessment: #1. Acute on chronic hypoxic respiratory failure related to acute exacerbation of systolic CHF, with mildly impaired left ventricle systolic function and EF of 45-50%. COVID-19 PCR was negative #2. Mild exacerbation of chronic obstructive pulmonary disease related to the above #3. A. fib with RVR, patient continues on Cardizem infusion at 10 mg per hour, he is on home dose amiodarone 200 mg twice daily and home dose Eliquis 5 mg daily. Status post OSWALDO and successful cardioversion on 01/21/2021 #4. History of chronic A. fib, with previous cardioversion #5. Severe pulmonary hypertension, with right-sided pressure of 66 mmHg likely related to history of COPD #6. Hypertension #7. Chronic nicotine dependence, currently in remission, quit smoking 2 months ago #8. 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 Hearing disorder #10. History of obstructive sleep apnea noncompliant with his home CPAP Recommendation: Continue present treatment plan including diuretics, Continue cardiac meds for his atrial fibrillation patient responded well to his recent cardioversion. Continue to maintain a relatively negative fluid balance. His pleural effusion is not large enough to consider thoracentesis. Continue bronchodilators and oral steroids for his underlying COPD. Continue oxygen and titrate accordingly. We will clear the patient to be discharged home once he is cleared by cardiology. Time with Patient: Less than 30
[2021-01-23 16:49] LABS: Glucose,Whole Blood 196 mg/dL (75-99)
[2021-01-23 20:21] LABS: Glucose,Whole Blood 128 mg/dL (75-99)
[2021-01-23] MEDS: traZODone HCL 50 MG TAB PO SCH (21:13)
[2021-01-24] MEDS: BUMETANIDE 0.25 MG/ML 10 ML VIAL IV SCH (03:33)
[2021-01-24 06:17] LABS: Glucose,Whole Blood 92 mg/dL (75-99)
[2021-01-24] MEDS: INSULIN ASPART (NovoLOG) 100 UNIT/ML VIAL SQ SCH ×4 (06:23→20:21)
[2021-01-24] MEDS: IPRATROPIUM-ALBUTEROL 3 ML NEB INHALATION SCH ×4 (08:32→19:51)
[2021-01-24] MEDS: SYMBICORT 160-4.5 MCG INHALER INHALATION SCH ×2 (08:32→19:51)
[2021-01-24] MEDS: ESCITALOPRAM 10 MG TAB PO SCH (09:02)
[2021-01-24] MEDS: predniSONE 20 MG TAB PO SCH (09:02)
[2021-01-24] MEDS: AMIODARONE 200 MG TAB PO SCH ×2 (09:02→20:20)
[2021-01-24] MEDS: APIXABAN 5 MG TAB PO SCH ×2 (09:02→20:20)
[2021-01-24] MEDS: DIGOXIN 250 MCG TAB PO SCH (09:03)
[2021-01-24] MEDS: FAMOTIDINE 20 MG TAB PO SCH ×2 (09:03→20:20)
[2021-01-24] MEDS: METOPROLOL TARTRATE 25 MG TAB PO SCH ×3 (09:03→20:20)
[2021-01-24] MEDS: acetaZOLAMIDE 250 MG TAB PO SCH ×2 (09:03→20:21)
[2021-01-24 09:33] LABS: Calcium 8.9 mg/dL (8.4-10.2); Potassium 3.8 mmol/L (3.5-5.1)
[2021-01-24 12:00] LABS: Glucose,Whole Blood 133 mg/dL (75-99)
[2021-01-24] MEDS: ARTIFICIAL TEARS-HYPROMELLOSE DROPS 15 ML BTL BOTH EYES SCH ×4 (12:28→20:22)
[2021-01-24] MEDS: Roflumilast [Daliresp] 500 MCG Tablet PO SCH (12:28)
--- NOTE | 2021-01-24 12:44 | P.PN ---
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 He states he has been increasing trouble over the last couple of weeks. He had some mild chest pain which had resolved spontaneously. Also reports an episode of drooling couple days ago, and was concerned about a possibility of TIA. He is on Eliquis on an outpatient basis. He reports increasing edema in his lower extremities, no fever or chills, no cough or chest congestion. No nausea, vomiting or diarrhea, no abdominal pain. His chest x-ray in the emergency department show cardi omegaly with prominence of the lung interstitium and small right pleural effusion. EKG showed A. fib with RVR with a rate of 141 BPM. Patient was started on IV Cardizem in the emergency department at 10 mg per hour for rate control, he is on home dose amiodarone 200 mg twice a day on which he continues, he is already on Eliquis 5 mg twice daily, currently his heart rate is better controlled, on 2 L of oxygen has pulse ox is 90-92%, he was generally fluid overloaded, short of breath, and his chest x-ray showed just showed prominence, and small right plural effusion.. Cardiology started the patient on IV diuretics 40 mg of Lasix every 12 hours, he is in -773 mL fluid balance over the last 24 hours, has quite a bit of swelling in bilateral lower extremities, follow-up chest x-ray today shows cardiomegaly persistent mild to moderate size right pleural effusion. No fever or chills, he tested negative for COVID-19, his baseline FEV1 is 19% of predicted, patient follows with Dr. Ware in the pulmonary clinic, he is on albuterol inhaler, and Advair in addition to Spiriva on an outpatient basis, in addition he is on maintenance dose prednisone 5 mg daily. On 01/20/2021 patient seen in follow-up on medical surgical floor. Patient is currently on 5 L of oxygen, he still has exertional dyspnea just walking to the bathroom, but seems to be in no acute distress. Cardizem drip has been discontinued, he still remains in A. fib with RVR with a rate of 129. Cardiology is following and patient is being loaded with digoxin. No IV fluids. And his IV fluids have been hep-locked, his been afebrile. Vital signs have been stable, he is on nebulized bronchodilators, he is on oral prednisone. He is on Bumex, and he is in negative fluid balance. On 02/01/2021 patient seen in follow-up on selective care unit, he remains in atrial fibrillation, and the rate is still uncontrolled, currently at 126, he is off the Cardizem infusion, he was loaded with digoxin yesterday, he is on met oprolol 75 mg 3 times daily, and continues on maintenance dose of digoxin. He states he is still quite short of breath with any exertion, and walking only short distances in the room, remains on 4 L of oxygen pulse ox 97%, afebrile, remains on bronchodilators, including Symbicort, and DuoNeb, he is on oral prednisone 40 mg daily, is on Bumex 2 mg twice daily. Patient is on Eliquis, and cardiology is planning on cardioversion today. On 01/22/2021 patient seen in follow-up on selective care unit, he is sitting up on the edge of the bed, he does not feel like he is improving, although he seems quite comfortable, does not appear to be in any acute distress, he states he feels tired, but seems to be breathing comfortably, he continues on oral Bumex 2 mg twice daily, he is in negative fluid balance, his weight is down by 4.4 kg in the last 24 hours, he is currently on 4 L of oxygen, his pulse ox is 88%, no fever or chills, no complaints of chest discomfort, he status post transesophageal echocardiogram and cardioversion on 01/21/2021. The seizure was successful, and patient converted to sinus mechanism utilizing 75 J on the first attempt. Vital signs have been stable, blood pressure stable, 106/50, she remains on oral diuretics, he remains on oral amiodarone, and Eliquis in additi on to digoxin, he is on nebulized bronchodilators, he is on oral prednisone 40 mg daily, his chest x-ray shows cardiomegaly with small to moderate-sized right pleural effusion and tiny left pleural effusion with associated bibasilar atelectasis. In the findings are relatively stable compared to most recent chest x-ray. On 01/24/2021 patient seen in follow-up on [facility] care unit, he is sleeping comfortably in bed, but did not like the patient, seems to be breathing comfortably, he is currently on 4 L of oxygen his pulse ox is 92%, has been afebrile, vital signs have been stable overnight. Remains on IV Bumex 2 mg twice daily, he is in -2.5 L over the last 24 hours, yesterday he was also started on Diamox in view of metabolic alkalosis. His CO2 is down slightly to 43 today. Sodium is 139, potassium is 3.8, chloride is 87, BUN is 32, and creatinine is 1.4. Patient remains on Eliquis for history of A. fib. He is on digoxin, oral amiodarone. Patient is on breathing treatments, and oral prednisone 40. New chest x-ray today. Objective - Vital Signs Vital signs: Vital Signs Temp 97.8 F 01/23/21 20:00 Pulse 64 01/24/21 12:05 Resp 16 01/24/21 08:00 BP 109/55 01/24/21 08:00 Pulse Ox 98 01/24/21 08:00 Intake & Output 01/23/21 01/24/21 01/24/21 18:59 06:59 18:59 Intake Total 240 485 780 Output Total 1500 1750 1625 Balance -1260 -1265 -845 Weight 132.3 kg Intake: Oral 240 485 780 Output: Urine 1500 1750 1625 Other: Voiding Method Toilet Toilet Toilet Urinal Urinal Urinal # Voids 1 - Exam GENERAL EXAM: Alert, very pleasant, 75-year-old on 4 L of oxygen, with pulse ox of 92% comfortable in no apparent distress. HEAD: Normocephalic/atraumatic. EYES: Normal reaction of pupils, equal size. Conjunctiva pink, sclera white. NOSE: Clear with pink turbinates. THROAT: No erythema or exudates. NECK: No masses, no JVD, no thyroid enlargement, no adenopathy. CHEST: No chest wall deformity. Symmetrical expansion. LUNGS: Equal air entry with no crackles, wheeze, rhonchi or dullness. CVS: regular rate and rhythm currently with a controlled rate, normal S1 and S2, no gallops, no murmurs, no rubs ABDOMEN: Soft, nontender. No hepatosplenomegaly, normal bowel sounds, no guarding or rigidity. EXTREMITIES: No clubbing, 1 plus lower extremity edema no cyanosis, 2+ pulses and upper and lower extremities. MUSCULOSKELETAL: Muscle strength and tone normal. SPINE: No scoliosis or deformity SKIN: No rashes CENTRAL NERVOUS SYSTEM: Alert and oriented -3. No focal deficits, tone is normal in all 4 extremities. PSYCHIATRIC: Alert and oriented -3. Appropriate affect. Intact judgment and insight. - Labs CBC & Chem 7: 01/22/21 06:08 01/24/21 08:38 Labs: Abnormal Lab Results - Last 24 Hours (Table) 01/23/21 01/23/21 01/24/21 Range/Units 16:28 20:19 08:38 Chloride 87 L (98-107) mmol/L Carbon Dioxide 43 H* (22-30) mmol/L BUN 32 H (9-20) mg/dL Creatinine 1.40 H (0.66-1.25) mg/dL Glucose 122 H (74-99) mg/dL POC Glucose (mg/dL) 196 H 128 H (75-99) mg/dL 01/24/21 Range/Units 11:57 Chloride (98-107) mmol/L Carbon Dioxide (22-30) mmol/L BUN (9-20) mg/dL Creatinine (0.66-1.25) mg/dL Glucose (74-99) mg/dL POC Glucose (mg/dL) 133 H (75-99) mg/dL Assessment and Plan Plan: Assessment: #1. Acute on chronic hypoxic respiratory failure related to acute exacerbation of systolic CHF, with mildly impaired left ventricle systolic function and EF of 45-50%. COVID-19 PCR was negative #2. Mild exacerbation of chronic obstructive pulmonary disease related to the above #3. A. fib with RVR, patient continues on Cardizem infusion at 10 mg per hour, he is on home dose amiodarone 200 mg twice daily and home dose Eliquis 5 mg daily. Status post OSWALDO and successful cardioversion on 01/21/2021 #4. History of chronic A. fib, with previous cardioversion #5. Severe pulmonary hypertension, with right-sided pressure of 66 mmHg likely related to history of COPD #6. Hypertension #7. Chronic nicotine dependence, currently in remission, quit smoking 2 months ago #8. 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 Hearing disorder #10. History of obstructive sleep apnea noncompliant with his home CPAP Plan: Increase diamox to twice daily Follow-up chest x-ray tomorrow Monitor electrolytes and renal profile Continue oral prednisone and nebulized bronchodilators From pulmonary respect patient could be considered for discharge home when cleared by cardiology I performed a history & physical examination of the patient and discussed their management with my nurse practitioner, Bridget Roy. I reviewed the nurse practitioner's note and agree with the documented findings and plan of care. Lung sounds are positive for crackles throughout the lung farah. The findings and the impression was discussed with the patient. I attest to the documentation by the nurse practitioner. Time with Patient: Less than 30
--- NOTE | 2021-01-24 16:26 | P.PN ---
Subjective This is a pleasant 74-year-old male past medical history significant for chronic atrial fibrillation (diagnosed in November 2020), hypertension, non obstructive coronary artery disease, dyslipidemia, and COPD, obstructive sleep apnea uses CPAP, former etoh, nicotine dependence. He follows in the office with Dr. Rodgers. We have been asked to see in consultation for atrial fibrillation with RVR. Patient presented to the emergency department with worsening shortness of breath, palpitations. Patient recently admitted to the hospital on / for newly diagnosed atrial fibrillation. At that time patient was having symptoms of feeling tired, fatigued and no energy. He also had increased shortness of breath with exertion for 2-3 weeks that progressively getting worse. He presents to appointment with Dr. Rodgers on 11/25/20, he was tachycardic and EKG was performed and was found to be in atrial fibrillation with rapid ventricular response and was sent to the emergency department. Echocardiogram left ventricular systolic function is mildly impaired with an EF of 45-50%, right ventricle is moderately to severely enlarged, mild mitral regurgitation, moderate to severe tricuspid regurgitation, severe pulmonary hypertension with an RVSP of 65.9 mmHg. He underwent successful OSWALDO cardioversion with Dr. Rodgers and has been doing well since then. 01/21/21- Patient underwent successful OSWALDO cardioversion with Dr. Rodgers 01/23/21: Patient seen and examined at bedside, no acute distress. He states he continues to feel short of breath and not feeling well. Telemetry reviewed patient is maintaining sinus mechanism HR 55-60s. Blood pressure 119/50, heart rate 56, afebrile, maintaining oxygen saturations on 4 L nasal cannula. He continues to be maintained on metoprolol tartrate 75 mg TID, amiodarone 200 mg twice a day, anticoagulated on Eliquis 5 mg twice a day, Bumex 2mg BID, digoxin 250mg daily. He is having significant urinary output, negative fluid balance. Patient with 3.4 L urine output over the past 24 hours. Laboratory data reviewed sodium 139, potassium 3.4, BUN 38, serum creatinine 1.21(1.19 yesterday), magnesium 1.4 01/24 Patient seen and examined. Patient admits to slow improvements however still has significant lower extremity edema. He has been diuresed with IV diuretics and was started on Diamox yesterday for metabolic alkalosis. His bicarb was still 43 today and creatinine mildly increased up to 1.4. He was changed back down to Bumex 2 mg by mouth twice daily. PHYSICAL EXAMINATION CONSTITUTIONAL: No acute distress, states he continues to feel short of breath. HEENT: Head is normocephalic. No JVD. CHEST EXAMINATION: Lungs diminished, decreased air exchange bilaterally No chest wall tenderness is noted on palpation or with deep breathing. HEART EXAMINATION: Regular rate and rhythm. S1, S2 heard. Systolic murmur noted left sternal border ABDOMEN: Soft, nontender. Positive bowel sounds. EXTREMITIES: 2+ peripheral pulses 2+ bilateral lower extremity extremity edema and no calf tenderness. NEUROLOGIC EXAMINATION: Patient is awake, alert and oriented x3. ASSESSMENT Shortness of breath, most likely multifactorial due to atrial fibrillation with RVR, COPD and congestive heart failure, pulmonary hypertension Chronic atrial fibrillation with rapid ventricular response - [id number] score 3 on Eliquis s/p OSWALDO cardioversion 01/21 Acute systolic heart failure- mildly impaired EF 45-50% Severe pulmonary hypertension Hypertension Nonobstructive coronary artery disease Dyslipidemia COPD Objective sleep apnea Chronic nicotine dependence Hypokalemia Hypomagnesemia PLAN -Replace potassium and magnesium per protocol -Continue Digoxin PO 250mg daily, metoprolol tartrate to 75mg TID and amiodarone 200mg BID -Continue Eliquis 5mg BID Bumex was changed to oral by pulmonology. Mild increase in creatinine noted. Majority of the lower extremity edema mainly related to venous insufficiency. Continue with supportive care. Objective - Vital Signs Vital signs: Vital Signs Temp 97.8 F 01/23/21 20:00 Pulse 60 01/24/21 16:17 Resp 16 01/24/21 12:00 BP 137/65 01/24/21 12:00 Pulse Ox 92 L 01/24/21 12:00 Intake & Output 01/23/21 01/24/21 01/24/21 18:59 06:59 18:59 Intake Total 163 281 1467 Output Total 1500 1750 1625 Balance -1260 -1265 -485 Weight 132.3 kg Intake: Oral 002 295 3580 Output: Urine 1500 1750 1625 Other: Voiding Method Toilet Toilet Toilet Urinal Urinal Urinal # Voids 1 - Labs CBC & Chem 7: 01/22/21 06:08 01/24/21 08:38 Labs: Abnormal Lab Results - Last 24 Hours (Table) 01/23/21 01/23/21 01/24/21 Range/Units 16:28 20:19 08:38 Chloride 87 L (98-107) mmol/L Carbon Dioxide 43 H* (22-30) mmol/L BUN 32 H (9-20) mg/dL Creatinine 1.40 H (0.66-1.25) mg/dL Glucose 122 H (74-99) mg/dL POC Glucose (mg/dL) 196 H 128 H (75-99) mg/dL 01/24/21 Range/Units 11:57 Chloride (98-107) mmol/L Carbon Dioxide (22-30) mmol/L BUN (9-20) mg/dL Creatinine (0.66-1.25) mg/dL Glucose (74-99) mg/dL POC Glucose (mg/dL) 133 H (75-99) mg/dL
--- NOTE | 2021-01-24 16:43 | P.PN ---
Subjective Progress Note Date: 01/23/21 Principal diagnosis: Linda davila with RVR , currently is on Eliquis Acute on chronic systolic CHF with ejection fraction 45-50% COPD, with mild acute exacerbation Acute on chronic hypoxic respiratory failure 75 years old male with past medical history of atrial fibrillation, COPD, hypertension, hyperlipidemia, osteoarthritis, right nephrectomy, legally blind. Presents because of worsening dyspnea and some little chest pain and tightness and this left side radiating to the center. Nonspecific. [place] Like tightness and draped in 4-5 and currently feels better now patient also complaining from worsening exertional dyspnea, currently he has difficulty walking because of his oxygen status . The to cough with occasional white phlegm also patient is on 4 L of oxygen at home, and a prednisone 5 mg daily. His pastoral ministries professor is Dr. Ware Patient is afebrile, he is tachycardic with heart rate 123-142. Blood pressure is stable patient is tachypneic at 24 and hypoxic saturating 90-97% on 4 L oxygen via nasal cannula. CBC is unremarkable except for mild anemia at 11.4. There is normal at 1.1. Creatinine is 1.3 which is at baseline of 1.2-1.4 TSH is normal at 1.5 Coronavirus not detected chest x-ray showed cardiomegaly with prominence of the lung interstitial small right pleural effusion In the emergency room patient was started on Cardizem drip and cardiology team were consulted Currently he is on Cardizem drip at 10 mg/h Objective - Vital Signs Vital signs: Vital Signs Temp 97.9 F 01/23/21 08:00 Pulse 86 01/23/21 11:36 Resp 19 01/23/21 08:00 BP 119/58 01/23/21 08:00 Pulse Ox 90 L 01/23/21 08:00 Intake & Output 01/22/21 01/23/21 01/23/21 18:59 06:59 18:59 Intake Total 660 610 Output Total 1300 2100 600 Balance -640 1490 -600 Weight 132.3 kg Intake: Oral 660 610 Output: Urine 1300 2100 600 Other: Voiding Method Toilet Urinal # Voids 1 1 - Exam -GENERAL: The patient is alert and oriented x3, not in any acute distress. Obese HEENT: Pupils are round and equally reacting to light. EOMI. No scleral icterus. No conjunctival pallor. Normocephalic, atraumatic. No pharyngeal erythema. No thyromegaly. CARDIOVASCULAR: S1 and S2 present. No murmurs, rubs, or gallops. -PULMONARY: Chest is clear to auscultation, bilateral crepitation with decreased air entry on both sides ABDOMEN: Soft, nontender, nondistended, normoactive bowel sounds. No palpable o rganomegaly. MUSCULOSKELETAL: No joint swelling or deformity. -EXTREMITIES: No cyanosis, clubbing, bilateral pitting leg edema NEUROLOGICAL: Gross neurological examination did not reveal any focal deficits. SKIN: No rashes. no petechiae. - Labs CBC & Chem 7: 01/22/21 06:08 01/24/21 08:38 Labs: Abnormal Lab Results - Last 24 Hours (Table) 01/22/21 01/22/21 01/22/21 Range/Units 11:56 16:29 19:44 Potassium (3.5-5.1) mmol/L Chloride (98-107) mmol/L Carbon Dioxide (22-30) mmol/L BUN (9-20) mg/dL Glucose (74-99) mg/dL POC Glucose (mg/dL) 104 H 136 H 163 H (75-99) mg/dL Magnesium (1.6-2.3) mg/dL 01/23/21 01/23/21 Range/Units 05:44 08:08 Potassium 3.4 L (3.5-5.1) mmol/L Chloride 85 L (98-107) mmol/L Carbon Dioxide 45 H* (22-30) mmol/L BUN 38 H (9-20) mg/dL Glucose 120 H (74-99) mg/dL POC Glucose (mg/dL) 121 H (75-99) mg/dL Magnesium 1.4 L (1.6-2.3) mg/dL Assessment and Plan Assessment: A. fib with RVR , currently is on Eliquis acute on chronic systolic CHF with ejection fraction 45-50% COPD, with mild acute exacerbation Acute on chronic hypoxic respiratory failure Chronic kidney disease liver enzymes are unremarkable. Troponin is negative less than 0.012. 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 fib and RVR and hypoxia and tachypnea patient is on iv Bumex 2 mg twice a day Continue with metoprolol, amiodarone and digoxin. Continue with Eliquis. Continue with telemetry and cardiology consult Continue with the prednisone 40 mg. Continue with bronchodilator and oxygen therapy. Possible cardioversion in the morning if no improvement Labs and medication were reviewed.. Continue same treatment. Continue with sy mptomatic treatment. Resume home medication. Monitor lytes and vitals. DVT and GI prophylaxis. Further recommendations as per clinical course of the patient DVT prophylaxis Eliquis GI Prophylaxis: Pepcid PT/OT: Home health care Prognosis is guarded
[2021-01-24 16:47] LABS: Glucose,Whole Blood 146 mg/dL (75-99)
--- NOTE | 2021-01-24 16:48 | P.PN ---
Subjective Progress Note Date: 01/24/21 Principal diagnosis: A. fib with RVR , currently is on Eliquis Acute on chronic systolic CHF with ejection fraction 45-50% COPD, with mild acute exacerbation Acute on chronic hypoxic respiratory failure 75 years old male with past medical history of atrial fibrillation, COPD, hypertension, hyperlipidemia, osteoarthritis, right nephrectomy, legally blind. Presents because of worsening dyspnea and some little chest pain and tightness and this left side radiating to the center. Nonspecific. [place] Like tightness and draped in 4-09/15 and currently feels better now patient also complaining from worsening exertional dyspnea, currently he has difficulty walking because of his oxygen status . The to cough with occasional white phlegm also patient is on 4 L of oxygen at home, and a prednisone 5 mg daily. His slag motor operator is Dr. Ware Patient is afebrile, he is tachycardic with heart rate 123-142. Blood pressure is stable patient is tachypneic at 24 and hypoxic saturating 90-97% on 4 L oxygen via nasal cannula. CBC is unremarkable except for mild anemia at 11.4. There is normal at 1.1. Creatinine is 1.3 which is at baseline of 1.2-1.4 TSH is normal at 1.5 Coronavirus not detected chest x-ray showed cardiomegaly with prominence of the lung interstitial small right pleural effusion In the emergency room patient was started on Cardizem drip and cardiology team were consulted Currently he is on Cardizem drip at 10 mg/h 01/24/2021 Patient seen in follow-up on selective care unit, he is sleeping comfortably in bed, but did not like the patient, seems to be breathing comfortably, he is currently on 4 L of oxygen his pulse ox is 92%, has been afebrile, vital signs have been stable overnight. Remains on IV Bumex 2 mg twice daily, he is in -2.5 L over the last 24 hours, yesterday he was also started on Diamox in view of metabolic alkalosis. His CO2 is down slightly to 43 today. Sodium is 139, potassium is 3.8, chloride is 87, BUN is 32, and creatinine is 1.4. Patient remains on Eliquis for history of A. fib. He is on digoxin, oral amiodarone. Patient is on breathing treatments, and oral prednisone 40. Patient remains on Bumex 2 mg IV twice a day; await further recommendations from cardiology; Diamox increased to a twice a day dosing; patient will remain on oral prednisone and bronchodilator nebulizer treatments and has been cleared for discharge from pulmonary standpoint; await further recommendations and cardiology Objective - Vital Signs Vital signs: Vital Signs Temp 97.8 F 01/23/21 20:00 Pulse 56 L 01/24/21 08:44 Resp 16 01/24/21 08:00 BP 109/55 01/24/21 08:00 Pulse Ox 98 01/24/21 08:00 Intake & Output 01/23/21 01/24/21 01/24/21 18:59 06:59 18:59 Intake Total 240 485 780 Output Total 1500 1750 1625 Balance -1260 -1265 -845 Weight 132.3 kg Intake: Oral 240 485 780 Output: Urine 1500 1750 1625 Other: Voiding Method Toilet Toilet Urinal Urinal # Voids 1 - Exam -GENERAL: The patient is alert and oriented x3, not in any acute distress. Obese HEENT: Pupils are round and equally reacting to light. EOMI. No scleral icterus. No conjunctival pallor. Normocephalic, atraumatic. No pharyngeal erythema. No thyromegaly. CARDIOVASCULAR: S1 and S2 present. No murmurs, rubs, or gallops. -PULMONARY: Chest is clear to auscultation, bilateral crepitation with decreased air entry on both sides ABDOMEN: Soft, nontender, nondistended, normoactive bowel sounds. No palpable organomegaly. MUSCULOSKELETAL: No joint swelling or deformity. -EXTREMITIES: No cyanosis, clubbing, bilateral pitting leg edema NEUROLOGICAL: Gross neurological examination did not reveal any focal deficits. SKIN: No rashes. no petechiae. - Labs CBC & Chem 7: 01/22/21 06:08 01/24/21 08:38 Labs: Abnormal Lab Results - Last 24 Hours (Table) 01/23/21 01/23/21 01/23/21 Range/Units 11:50 16:28 20:19 Chloride (98-107) mmol/L Carbon Dioxide (22-30) mmol/L BUN (9-20) mg/dL Creatinine (0.66-1.25) mg/dL Glucose (74-99) mg/dL POC Glucose (mg/dL) 110 H 196 H 128 H (75-99) mg/dL 01/24/21 Range/Units 08:38 Chloride 87 L (98-107) mmol/L Carbon Dioxide 43 H* (22-30) mmol/L BUN 32 H (9-20) mg/dL Creatinine 1.40 H (0.66-1.25) mg/dL Glucose 122 H (74-99) mg/dL POC Glucose (mg/dL) (75-99) mg/dL Assessment and Plan Assessment: A. fib with RVR , currently is on Eliquis acute on chronic systolic CHF with ejection fraction 45-50% COPD, with mild acute exacerbation Acute on chronic hypoxic respiratory failure Chronic kidney disease liver enzymes are unremarkable. Troponin is negative less than 0.012. 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 fib and RVR and hypoxia and tachypnea patient is on iv Bumex 2 mg twice a day Continue with metoprolol, amiodarone and digoxin. Continue with Eliquis. Continue with telemetry and cardiology consult Continue with the prednisone 40 mg. Continue with bronchodilator and oxygen therapy. Possible cardioversion in the morning if no improvement Labs and medication were reviewed.. Continue same treatment. Continue with symptomatic treatment. Resume home medication. Monitor lytes and vitals. DVT and GI prophylaxis. Further recommendations as per clinical course of the patient DVT prophylaxis Eliquis GI Prophylaxis: Pepcid PT/OT: Home health care Prognosis is guarded
[2021-01-24 19:46] LABS: Glucose,Whole Blood 194 mg/dL (75-99)
[2021-01-24] MEDS: BUMETANIDE 1 MG TAB PO SCH (20:21)
[2021-01-24] MEDS: traZODone HCL 50 MG TAB PO SCH (20:21)
[2021-01-25 05:57] LABS: Glucose,Whole Blood 94 mg/dL (75-99)
[2021-01-25] MEDS: INSULIN ASPART (NovoLOG) 100 UNIT/ML VIAL SQ SCH ×4 (05:59→22:16)
--- NOTE | 2021-01-25 07:38 | XR ---
EXAMINATION TYPE: XR chest 1V portable DATE OF EXAM: 01/25/2021 Comparison: 01/22/2021 Clinical History: 75-year-old male shortness of breath Findings: Heart mildly enlarged. Interstitial prominence. Continued small to moderate right effusion with right basilar opacity. Impression: 1. Mild cardiomegaly with interstitial changes are similar, correlate for mild pulmonary vascular con gestion. 2. Also, continued small to moderate right effusion with adjacent atelectasis and/or consolidation.
[2021-01-25] MEDS: IPRATROPIUM-ALBUTEROL 3 ML NEB INHALATION SCH ×4 (07:42→20:22)
[2021-01-25] MEDS: SYMBICORT 160-4.5 MCG INHALER INHALATION SCH ×2 (07:42→20:22)
[2021-01-25] MEDS: ESCITALOPRAM 10 MG TAB PO SCH (09:39)
[2021-01-25] MEDS: METOPROLOL TARTRATE 25 MG TAB PO SCH ×3 (09:39→22:15)
[2021-01-25] MEDS: DIGOXIN 250 MCG TAB PO SCH (09:39)
[2021-01-25] MEDS: acetaZOLAMIDE 250 MG TAB PO SCH ×2 (09:39→22:14)
[2021-01-25] MEDS: BUMETANIDE 1 MG TAB PO SCH ×2 (09:39→22:15)
[2021-01-25] MEDS: FAMOTIDINE 20 MG TAB PO SCH (09:39)
[2021-01-25] MEDS: APIXABAN 5 MG TAB PO SCH ×2 (09:40→22:15)
[2021-01-25] MEDS: Roflumilast [Daliresp] 500 MCG Tablet PO SCH (09:40)
[2021-01-25] MEDS: predniSONE 20 MG TAB PO SCH (09:40)
[2021-01-25] MEDS: AMIODARONE 200 MG TAB PO SCH ×2 (09:40→22:15)
[2021-01-25] MEDS: ARTIFICIAL TEARS-HYPROMELLOSE DROPS 15 ML BTL BOTH EYES SCH ×4 (09:41→22:16)
[2021-01-25 11:38] LABS: Glucose,Whole Blood 111 mg/dL (75-99)
--- NOTE | 2021-01-25 13:30 | P.PN ---
Subjective Progress Note Date: 01/25/21 75-year-old male patient with past medical history of COPD on home oxygen, chronic atrial fibrillation on Eliquis, chronic tobacco dependence quit only recently 2 months ago, history of systolic and diastolic CHF with ejection fraction of 45-50%, mildly impaired LV function, and severe pulmonary hypertens ion, obstructive sleep apnea noncompliant with CPAP, history of hypertension, and hyperlipidemia him into the emergency department on 01/17/2021 complaining of shortness of breath, chest pain and palpitations. He states he has been increasing trouble over the last couple of weeks. He had some mild chest pain which had resolved spontaneously. Also reports an episode of drooling couple days ago, and was concerned about a possibility of TIA. He is on Eliquis on an outpatient basis. He reports increasing edema in his lower extremities, no fever or chills, no cough or chest congestion. No nausea, vomiting or diarrhea, no abdominal pain. His chest x-ray in the emergency department show card iomegaly with prominence of the lung interstitium and small right pleural effusion. EKG showed A. fib with RVR with a rate of 141 BPM. Patient was started on IV Cardizem in the emergency department at 10 mg per hour for rate control, he is on home dose amiodarone 200 mg twice a day on which he continues, he is already on Eliquis 5 mg twice daily, currently his heart rate is better controlled, on 2 L of oxygen has pulse ox is 90-92%, he was generally fluid overloaded, short of breath, and his chest x-ray showed just showed prominence, and small right plural effusion.. Cardiology started the patient on IV diuretics 40 mg of Lasix every 12 hours, he is in -773 mL fluid balance over the last 24 hours, has quite a bit of swelling in bilateral lower extremities, follow-up chest x-ray today shows cardiomegaly persistent mild to moderate size right pleural effusion. No fever or chills, he tested negative for COVID-19, his baseline FEV1 is 19% of predicted, patient follows with Dr. Ware in the pulmonary clinic, he is on albuterol inhaler, and Advair in addition to Spiriva on an outpatient basis, in addition he is on maintenance dose prednisone 5 mg daily. On 01/20/2021 patient seen in follow-up on medical surgical floor. Patient is currently on 5 L of oxygen, he still has exertional dyspnea just walking to the bathroom, but seems to be in no acute distress. Cardizem drip has been discontinued, he still remains in A. fib with RVR with a rate of 129. Cardiology is following and patient is being loaded with digoxin. No IV fluids. And his IV fluids have been hep-locked, his been afebrile. Vital signs have been stable, he is on nebulized bronchodilators, he is on oral prednisone. He is on Bumex, and he is in negative fluid balance. On 02/01/2021 patient seen in follow-up on selective care unit, he remains in atrial fibrillation, and the rate is still uncontrolled, currently at 126, he is off the Cardizem infusion, he was loaded with digoxin yesterday, he is on me toprolol 75 mg 3 times daily, and continues on maintenance dose of digoxin. He states he is still quite short of breath with any exertion, and walking only short distances in the room, remains on 4 L of oxygen pulse ox 97%, afebrile, remains on bronchodilators, including Symbicort, and DuoNeb, he is on oral prednisone 40 mg daily, is on Bumex 2 mg twice daily. Patient is on Eliquis, and cardiology is planning on cardioversion today. On 01/22/2021 patient seen in follow-up on selective care unit, he is sitting up on the edge of the bed, he does not feel like he is improving, although he seems quite comfortable, does not appear to be in any acute distress, he states he feels tired, but seems to be breathing comfortably, he continues on oral Bumex 2 mg twice daily, he is in negative fluid balance, his weight is down by 4.4 kg in the last 24 hours, he is currently on 4 L of oxygen, his pulse ox is 88%, no fever or chills, no complaints of chest discomfort, he status post transesophageal echocardiogram and cardioversion on 01/21/2021. The seizure was successful, and patient converted to sinus mechanism utilizing 75 J on the first attempt. Vital signs have been stable, blood pressure stable, 106/50, she remains on oral diuretics, he remains on oral amiodarone, and Eliquis in addit ion to digoxin, he is on nebulized bronchodilators, he is on oral prednisone 40 mg daily, his chest x-ray shows cardiomegaly with small to moderate-sized right pleural effusion and tiny left pleural effusion with associated bibasilar atelectasis. In the findings are relatively stable compared to most recent chest x-ray. On 01/24/2021 patient seen in follow-up on selective care unit, he is sleeping comfortably in bed, but did not like the patient, seems to be breathing comfortably, he is currently on 4 L of oxygen his pulse ox is 92%, has been afebrile, vital signs have been stable overnight. Remains on IV Bumex 2 mg twice daily, he is in -2.5 L over the last 24 hours, yesterday he was also started on Diamox in view of metabolic alkalosis. His CO2 is down slightly to 43 today. Sodium is 139, potassium is 3.8, chloride is 87, BUN is 32, and creatinine is 1.4. Patient remains on Eliquis for history of A. fib. He is on digoxin, oral amiodarone. Patient is on breathing treatments, and oral prednisone 40. New chest x-ray today. The patient is seen today 01/25/2021 in follow-up on the selective care unit. He is currently sitting up in a chair at the bedside. Awake and alert in no acute distress. Breathing easier today compared to yesterday. Maintaining O2 saturations in the 90s on 2 L/m per nasal cannula. He's been afebrile. Hemodynamically. Chest x-ray shows mild cardiomegaly with interstitial changes and mild pulmonary vascular congestion. There is a moderate right effusion with adjacent atelectasis. Blood glucose 111. He remains on DuoNeb inhalations, Symbicort, Daliresp. Oral diuretics. Objective - Vital Signs Vital signs: Vital Signs Temp 96.6 F L 01/25/21 08:00 Pulse 51 L 01/25/21 12:00 Resp 16 01/25/21 12:00 BP 121/57 01/25/21 12:00 Pulse Ox 93 L 01/25/21 12:00 Intake & Output 01/24/21 01/25/21 01/25/21 18:59 06:59 18:59 Intake Total 1860 735 420 Output Total 1625 1600 Balance 235 -865 420 Weight 124.8 kg Intake: Oral 1860 735 420 Output: Urine 1625 1600 Other: Voiding Method Toilet Toilet Toilet Urinal Urinal Urinal - Exam GENERAL EXAM: Alert, very pleasant, 75-year-old on 2 L of oxygen, with pulse ox of 93% comfortable in no apparent distress. HEAD: Normocephalic/atraumatic. EYES: Normal reaction of pupils, equal size. Conjunctiva pink, sclera white. NOSE: Clear with pink turbinates. THROAT: No erythema or exudates. NECK: No masses, no JVD, no thyroid enlargement, no adenopathy. CHEST: No chest wall deformity. Symmetrical expansion. LUNGS: Equal air entry with crackles in the right base, diminished. CVS: regular rate and rhythm currently with a controlled rate, normal S1 and S2, no gallops, no murmurs, no rubs ABDOMEN: Soft, nontender. No hepatosplenomegaly, normal bowel sounds, no guarding or rigidity. EXTREMITIES: No clubbing, 1 plus lower extremity edema no cyanosis, 2+ pulses and upper and lower extremities. MUSCULOSKELETAL: Muscle strength and tone normal. SPINE: No scoliosis or deformity SKIN: No rashes CENTRAL NERVOUS SYSTEM: No focal deficits, tone is normal in all 4 extremities. PSYCHIATRIC: Alert and oriented -3. Appropriate affect. Intact judgment and insight. - Labs CBC & Chem 7: 01/22/21 06:08 01/24/21 08:38 Labs: Abnormal Lab Results - Last 24 Hours (Table) 01/24/21 01/24/21 01/25/21 Range/Units 16:45 19:45 11:36 POC Glucose (mg/dL) 146 H 194 H 111 H (75-99) mg/dL Assessment and Plan Assessment: 1 Acute on chronic hypoxic respiratory failure related to acute exacerbation of systolic CHF, with mildly impaired left ventricle systolic function and EF of 45-50%. COVID-19 PCR was negative 2 Mild exacerbation of chronic obstructive pulmonary disease related to the above 3 A. fib with RVR, patient continues on Cardizem infusion at 10 mg per hour, he is on home dose amiodarone 200 mg twice daily and home dose Eliquis 5 mg daily. Status post OSWALDO and successful cardioversion on 01/21/2021 4 History of chronic A. 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 Du Chest x-ray reviewed Cleared for discharge from the pulmonary standpoint Follow-up in the office in 1-2 weeks' He'll have a follow-up chest x-ray then I, the cosigning physician, performed a history & physical examination of the patient. Lungs sounds with crackles in the right. Maintaining good O2 saturations in the 90s on 2 L/m per nasal cannula. I discussed the assessment and plan of care with my nurse practitioner, Irina Vidal. I attest to the above note as dictated by her.
[2021-01-25 16:43] LABS: Glucose,Whole Blood 165 mg/dL (75-99)
--- NOTE | 2021-01-25 18:32 | P.PN ---
Subjective Progress Note Date: 01/25/21 Principal diagnosis: A. fib with RVR , currently is on Eliquis Acute on chronic systolic CHF with ejection fraction 45-50% COPD, with mild acute exacerbation Acute on chronic hypoxic respiratory failure 75 years old male with past medical history of atrial fibrillation, COPD, hypertension, hyperlipidemia, osteoarthritis, right nephrectomy, legally blind. Presents because of worsening dyspnea and some little chest pain and tightness and this left side radiating to the center. Nonspecific. [place] Like tightness and draped in 4-09/15 and currently feels better now patient also complaining from worsening exertional dyspnea, currently he has difficulty walking because of his oxygen status . The to cough with occasional white phlegm also patient is on 4 L of oxygen at home, and a prednisone 5 mg daily. His edgerman is Dr. Ware Patient is afebrile, he is tachycardic with heart rate 123-142. Blood pressure is stable patient is tachypneic at 24 and hypoxic saturating 90-97% on 4 L oxygen via nasal cannula. CBC is unremarkable except for mild anemia at 11.4. There is normal at 1.1. Creatinine is 1.3 which is at baseline of 1.2-1.4 TSH is normal at 1.5 Coronavirus not detected chest x-ray showed cardiomegaly with prominence of the lung interstitial small right pleural effusion In the emergency room patient was started on Cardizem drip and cardiology team were consulted Currently he is on Cardizem drip at 10 mg/h 01/24/2021 Patient seen in follow-up on selective care unit, he is sleeping comfortably in bed, but did not like the patient, seems to be breathing comfortably, he is currently on 4 L of oxygen his pulse ox is 92%, has been afebrile, vital signs have been stable overnight. Remains on IV Bumex 2 mg twice daily, he is in -2.5 L over the last 24 hours, yesterday he was also started on Diamox in view of metabolic alkalosis. His CO2 is down slightly to 43 today. Sodium is 139, potassium is 3.8, chloride is 87, BUN is 32, and creatinine is 1.4. Patient remains on Eliquis for history of A. fib. He is on digoxin, oral amiodarone. Patient is on breathing treatments, and oral prednisone 40. Patient remains on Bumex 2 mg IV twice a day; await further recommendations from cardiology; Diamox increased to a twice a day dosing; patient will remain on oral prednisone and bronchodilator nebulizer treatments and has been cleared for discharge from pulmonary standpoint; await further recommendations and cardiology 01/25/2021 Patient is seen and evaluated in follow-up on the selective care unit. He is currently sitting up in a chair at the bedside. Awake and alert in no acute distress. Breathing easier today compared to yesterday. Maintaining O2 satura tions in the 90s on 2 L/m per nasal cannula. He's been afebrile. Hemodynamically. Chest x-ray shows mild cardiomegaly with interstitial changes and mild pulmonary vascular congestion. There is a moderate right effusion with adjacent atelectasis. Blood glucose 111. He remains on DuoNeb inhalations, Symbicort, Daliresp. Oral diuretics. Patient remains on O2 at 2-3 L per nasal cannula; we will continue to titrate as able; chest x-ray shows persistent vascular congestion; patient is currently switched to oral diuretics due to worsening renal function; need to be ree valuated by cardiology; we will monitor renal function with plans for possible discharge in next 24-48 hours if renal function remains stable and patient is cleared by cardiology Objective - Vital Signs Vital signs: Vital Signs Temp 96.6 F L 01/25/21 08:00 Pulse 52 L 01/25/21 16:00 Resp 16 01/25/21 16:00 BP 135/55 01/25/21 16:00 Pulse Ox 94 L 01/25/21 16:00 Intake & Output 01/24/21 01/25/21 01/25/21 18:59 06:59 18:59 Intake Total 1860 735 900 Output Total 1625 1600 1075 Balance 235 -865 -175 Weight 124.8 kg Intake: Oral 1860 735 900 Output: Urine 1625 1600 1075 Other: Voiding Method Toilet Toilet Toilet Urinal Urinal Urinal - Exam -GENERAL: The patient is alert and oriented x3, not in any acute distress. Obese HEENT: Pupils are round and equally reacting to light. EOMI. No scleral icterus. No conjunctival pallor. Normocephalic, atraumatic. No pharyngeal erythema. No thyromegaly. CARDIOVASCULAR: S1 and S2 present. No murmurs, rubs, or gallops. -PULMONARY: Chest is clear to auscultation, bilateral crepitation with decreased air entry on both sides ABDOMEN: Soft, nontender, nondistended, normoactive bowel sounds. No palpable organomegaly. MUSCULOSKELETAL: No joint swelling or deformity. -EXTREMITIES: No cyanosis, clubbing, bilateral pitting leg edema NEUROLOGICAL: Gross neurological examination did not reveal any focal deficits. SKIN: No rashes. no petechiae. - Labs CBC & Chem 7: 01/22/21 06:08 01/24/21 08:38 Labs: Abnormal Lab Results - Last 24 Hours (Table) 01/24/21 01/25/21 01/25/21 Range/Units 19:45 11:36 16:41 POC Glucose (mg/dL) 194 H 111 H 165 H (75-99) mg/dL Assessment and Plan Assessment: A. fib with RVR , currently is on Eliquis acute on chronic systolic CHF with ejection fraction 45-50% COPD, with mild acute exacerbation Acute on chronic hypoxic respiratory failure Chronic kidney disease liver enzymes are unremarkable. Troponin is negative less than 0.012. 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 fib and RVR and hypoxia and tachypnea patient is on iv Bumex 2 mg twice a day Continue with metoprolol, amiodarone and digoxin. Continue with Eliquis. Continue with telemetry and cardiology consult Continue with the prednisone 40 mg. Continue with bronchodilator and oxygen therapy. Possible cardioversion in the morning if no improvement Labs and medication were reviewed.. Continue same treatment. Continue with symptomatic treatment. Resume home medication. Monitor lytes and vitals. DVT and GI prophylaxis. Further recommendations as per clinical course of the patient DVT prophylaxis Eliquis GI Prophylaxis: Pepcid PT/OT: Home health care Prognosis is guarded
--- NOTE | 2021-01-25 20:22 | P.PN ---
Subjective This is a pleasant 75-year-old male past medical history significant for chronic atrial fibrillation (diagnosed in November 2020), hypertension, non obstructive coronary artery disease, dyslipidemia, and COPD, obstructive sleep apnea uses CPAP, former etoh, nicotine dependence. He follows in the office with Dr. Rodgers. We have been asked to see in consultation for atrial fibrillation with RVR. Patient presented to the emergency department with worsening shortness of breath, palpitations. Patient recently admitted to the hospital on / for newly diagnosed atrial fibrillation. At that time patient was having symptoms of feeling tired, fatigued and no energy. He also had increased shortness of breath with exertion for 2-3 weeks that progressively getting worse. He presents to appointment with Dr. Rodgers on 11/25/20, he was tachycardic and EKG was performed and was found to be in atrial fibrillation with rapid ventricular response and was sent to the emergency department. Echocardiogram left ventricular systolic function is mildly impaired with an EF of 45-50%, right ventricle is moderately to severely enlarged, mild mitral regurgitation, moderate to severe tricuspid regurgitation, severe pulmonary hypertension with an RVSP of 65.9 mmHg. He underwent successful OSWALDO cardioversion with Dr. Rodgers and has been doing well since then. 01/21/21- Patient underwent successful OSWALDO cardioversion with Dr. Rodgers 01/23/21: Patient seen and examined at bedside, no acute distress. He states he continues to feel short of breath and not feeling well. Telemetry reviewed patient is maintaining sinus mechanism HR 55-60s. Blood pressure 119/50, heart rate 56, afebrile, maintaining oxygen saturations on 4 L nasal cannula. He continues to be maintained on metoprolol tartrate 75 mg TID, amiodarone 200 mg twice a day, anticoagulated on Eliquis 5 mg twice a day, Bumex 2mg BID, digoxin 250mg daily. He is having significant urinary output, negative fluid balance. Patient with 3.4 L urine output over the past 24 hours. Laboratory data reviewed sodium 139, potassium 3.4, BUN 38, serum creatinine 1.21(1.19 yesterday), magnesium 1.4 01/24 Patient seen and examined. Patient admits to slow improvements however still has significant lower extremity edema. He has been diuresed with IV diuretics and was started on Diamox yesterday for metabolic alkalosis. His bicarb was still 43 today and creatinine mildly increased up to 1.4. He was changed back down to Bumex 2 mg by mouth twice daily. 01/25 Patient seen and examined. Patient states he is feeling much better today. Remains in sinus rhythm. He has been receiving Diamox as well as the Bumex 2 mg twice a day. We are still documenteding excellent urine output with -2.5 L.. PHYSICAL EXAMINATION CONSTITUTIONAL: No acute distress HEENT: Head is normocephalic. No JVD. CHEST EXAMINATION: Lungs diminished, decreased air exchange bilaterally No chest wall tenderness is noted on palpation or with deep breathing. HEART EXAMINATION: Regular rate and rhythm. S1, S2 heard. Systolic murmur noted left sternal border ABDOMEN: Soft, nontender. Positive bowel sounds. EXTREMITIES: 2+ peripheral pulses 2+ bilateral lower extremity extremity edema and no calf tenderness. NEUROLOGIC EXAMINATION: Patient is awake, alert and oriented x3. ASSESSMENT Shortness of breath, most likely multifactorial due to atrial fibrillation with RVR, COPD and congestive heart failure, pulmonary hypertension Chronic atrial fibrillation with rapid ventricular response - [id number] score 3 on Eliquis s/p OSWALDO cardioversion 01/21 Acute systolic heart failure- mildly impaired EF 45-50% Severe pulmonary hypertension Hypertension Nonobstructive coronary artery disease Dyslipidemia COPD Objective sleep apnea Chronic nicotine dependence Hypokalemia Hypomagnesemia PLAN -Continue Digoxin PO 250mg daily, metoprolol tartrate to 75mg TID and amiodarone 200mg BID, currently in sinus -Continue Eliquis 5mg BID No blood work from today however monitor kidney function tomorrow morning. Patient continues to diurese well. Would continue with diuresis. Continue supportive care. Objective - Vital Signs Vital signs: Vital Signs Temp 97.6 F 01/25/21 19:51 Pulse 53 L 01/25/21 19:51 Resp 16 01/25/21 19:51 BP 116/59 01/25/21 19:51 Pulse Ox 94 L 01/25/21 19:51 Intake & Output 01/25/21 01/25/21 01/26/21 06:59 18:59 06:59 Intake Total 735 900 Output Total 1600 1075 1075 Balance -649 -175 107 Weight 124.8 kg Intake: Oral 735 900 Output: Urine 1600 1075 1075 Other: Voiding Method Toilet Toilet Toilet Urinal Urinal Urinal # Voids 1 # Bowel Movements 1 - Labs CBC & Chem 7: 01/22/21 06:08 01/24/21 08:38 Labs: Abnormal Lab Results - Last 24 Hours (Table) 01/25/21 01/25/21 Range/Units 11:36 16:41 POC Glucose (mg/dL) 111 H 165 H (75-99) mg/dL
[2021-01-25 20:38] LABS: Glucose,Whole Blood 130 mg/dL (75-99)
[2021-01-25] MEDS: traZODone HCL 50 MG TAB PO SCH (22:14)
[2021-01-26 05:45] LABS: Glucose,Whole Blood 99 mg/dL (75-99)
[2021-01-26] MEDS: INSULIN ASPART (NovoLOG) 100 UNIT/ML VIAL SQ SCH ×2 (07:49→12:22)
[2021-01-26] MEDS: SYMBICORT 160-4.5 MCG INHALER INHALATION SCH (08:07)
[2021-01-26] MEDS: IPRATROPIUM-ALBUTEROL 3 ML NEB INHALATION SCH ×3 (08:07→15:27)
[2021-01-26] MEDS ORDERED: FAMOTIDINE 20 MG TAB PO SCH (09:00)
[2021-01-26 09:27] LABS: Calcium 9.2 mg/dL (8.4-10.2); Potassium 3.4 mmol/L (3.5-5.1)
[2021-01-26 09:49] LABS: Basophils % (A) 0 %; Eosinophils # (A) 0.1 k/uL (0-0.7); Eosinophils % (A) 0 %; HCT 42.2 % (39.0-53.0); HGB 12.5 gm/dL (13.0-17.5); Hypochromasia Marked; Lymphocytes # (A) 0.9 k/uL (1.0-4.8); Lymphocytes % (A) 8 %; MCH 31.2 pg (25.0-35.0); MCHC 29.6 g/dL (31.0-37.0); MCV 105.2 fL (80.0-100.0); Macrocytosis Moderate; Mean Platelet Volume 8.2; Monocytes # (A) 0.5 k/uL (0-1.0); Monocytes % (A) 5 %; Neutrophils # (A) 8.8 k/uL (1.3-7.7); Neutrophils % (A) 85 %; Platelet Count 238 k/uL (150-450); RBC 4.01 m/uL (4.30-5.90); RDW 13.4 % (11.5-15.5); WBC 10.3 k/uL (3.8-10.6)
[2021-01-26 09:51] VITALS: RESP 18; TEMP 97.6
[2021-01-26 09:52] LABS: Magnesium 1.8 mg/dL (1.6-2.3)
[2021-01-26] MEDS: BUMETANIDE 1 MG TAB PO SCH (10:10)
[2021-01-26] MEDS: METOPROLOL TARTRATE 25 MG TAB PO SCH (10:10)
[2021-01-26] MEDS: ESCITALOPRAM 10 MG TAB PO SCH (10:11)
[2021-01-26] MEDS: DIGOXIN 250 MCG TAB PO SCH (10:11)
[2021-01-26] MEDS: acetaZOLAMIDE 250 MG TAB PO SCH (10:11)
[2021-01-26] MEDS: predniSONE 20 MG TAB PO SCH (10:11)
[2021-01-26] MEDS: APIXABAN 5 MG TAB PO SCH (10:11)
[2021-01-26] MEDS: AMIODARONE 200 MG TAB PO SCH (10:11)
[2021-01-26] MEDS: Roflumilast [Daliresp] 500 MCG Tablet PO SCH (10:12)
[2021-01-26] MEDS: ARTIFICIAL TEARS-HYPROMELLOSE DROPS 15 ML BTL BOTH EYES SCH ×2 (10:12→12:45)
[2021-01-26] MEDS: POTASSIUM CHLORIDE ER 20 MEQ TAB.ER PO SCH ×2 (10:12→12:45)
[2021-01-26 11:44] LABS: Glucose,Whole Blood 85 mg/dL (75-99)
--- NOTE | 2021-01-26 11:48 | P.PN ---
Subjective maintaining SR, no chest pain. Breathing stable. This is a pleasant 75-year-old male past medical history significant for chronic atrial fibrillation (diagnosed in November 2020), hypertension, non obstructive coronary artery disease, dyslipidemia, and COPD, obstructive sleep apnea uses CPAP, former etoh, nicotine dependence. He follows in the office with Dr. Rodgers. We have been asked to see in consultation for atrial fibrillation with RVR. Patient presented to the emergency department with worsening shortness of breath, palpitations. Patient recently admitted to the hospital on / for newly diagnosed atrial fibrillation. At that time patient was having symptoms of feeling tired, fatigued and no energy. He also had increased shortness of breath with exertion for 2-3 weeks that progressively getting worse. He presents to appointment with Dr. Rodgers on 11/25/20, he was tachycardic and EKG was performed and was found to be in atrial fibrillation with rapid ventricular response and was sent to the emergency department. Echocardiogram left ventricular systolic function is mildly impaired with an EF of 45-50%, right ventricle is moderately to severely enlarged, mild mitral regurgitation, moderate to severe tricuspid regurgitation, severe pulmonary hypertension with an RVSP of 65.9 mmHg. He underwent successful OSWALDO cardioversion with Dr. Rodgers and has been doing well since then. 01/26/2021 Pt seen and examined sitting up in recliner in no acute distress. He denies chest pain, worsening shortness of breath, dizziness or palpitations. Blood pressure 107/57 heart rate 56 afebrile and maintaining oxygen saturation on n temo cannula. Laboratory data reviewed, WBC 10.3, hemoglobin 12.5, platelets 238, sodium 138, potassium 3.4 and creatinine 1.4. PHYSICAL EXAMINATION CONSTITUTIONAL: No acute distress HEENT: Head is normocephalic. No JVD. CHEST EXAMINATION: Lungs diminished, decreased air exchange bilaterally No c hest wall tenderness is noted on palpation or with deep breathing. HEART EXAMINATION: Regular rate and rhythm. S1, S2 heard. Systolic murmur noted left sternal border EXTREMITIES: 2+ peripheral pulses 1+ bilateral lower extremity extremity edema and no calf tenderness. ASSESSMENT Shortness of breath, most likely multifactorial due to atrial fibrillation with RVR, COPD and congestive heart failure, pulmonary hypertension Chronic atrial fibrillation with rapid ventricular response - [id number] score 3 on Eliquis s/p OSWALDO cardioversion 01/21 Acute systolic heart failure- mildly impaired EF 45-50% Severe pulmonary hypertension Hypertension Nonobstructive coronary artery disease Dyslipidemia COPD Objective sleep apnea Chronic nicotine dependence Hypokalemia Hypomagnesemia PLAN Continue Digoxin PO 250mg daily, metoprolol tartrate to 75mg TID and amiodarone 200mg BID, currently in sinus. Continue Eliquis 5mg BID for thromboembolic protection. Stable for discharge on current medical regimen. Follow up with Dr. Rodgers upon discharge. Nurse Practitioner note has been reviewed, I agree with a documented findings and plan of care. Patient was seen and examined. Objective - Vital Signs Vital signs: Vital Signs Temp 97.8 F 01/26/21 04:00 Pulse 60 01/26/21 08:23 Resp 20 01/26/21 04:00 BP 135/61 01/26/21 04:00 Pulse Ox 99 01/26/21 04:00 Intake & Output 01/25/21 01/26/21 01/26/21 18:59 06:59 18:59 Intake Total 900 358 Output Total 1075 3100 Balance -175 -3100 358 Weight 124.6 kg Intake: Oral 900 358 Output: Urine 1075 3100 Other: Voiding Method Toilet Toilet Urinal Urinal # Voids 2 # Bowel Movements 1 - Labs CBC & Chem 7: 01/26/21 08:31 01/26/21 08:31 Labs: Abnormal Lab Results - Last 24 Hours (Table) 01/25/21 01/25/21 01/25/21 Range/Units 11:36 16:41 20:26 POC Glucose (mg/dL) 111 H 165 H 130 H (75-99) mg/dL
[2021-01-26 12:22] VITALS: BP 110/55; PULSE 54
[2021-01-26] MEDS ORDERED: POTASSIUM CHLORIDE ER 20 MEQ TAB.ER PO SCH (14:00)
--- NOTE | 2021-01-26 14:27 | P.PN ---
Subjective Progress Note Date: 01/26/21 Principal diagnosis: Acute exacerbation of systolic CHF, and COPD, and A. fib with RVR 75-year-old male patient with past medical history of COPD on home oxygen, chronic atrial fibrillation on Eliquis, chronic tobacco dependence quit only recently 2 months ago, history of systolic and diastolic CHF with ejection fraction of 45-50%, mildly impaired LV function, and severe pulmonary hypertension, obstructive sleep apnea noncompliant with CPAP, history of hypertension, and hyperlipidemia him into the emergency department on 01/17/2021 complaining of shortness of breath, chest pain and palpitations. He states he has been increasing trouble over the last couple of weeks. He had some mild chest pain which had resolved spontaneously. Also reports an episode of drooling couple days ago, and was concerned about a possibility of TIA. He is on Eliquis on an outpatient basis. He reports increasing edema in his lower extremities, no fever or chills, no cough or chest congestion. No nausea, vomiting or diarrhea, no abdominal pain. His chest x-ray in the emergency depar tment show cardiomegaly with prominence of the lung interstitium and small right pleural effusion. EKG showed A. fib with RVR with a rate of 141 BPM. Patient was started on IV Cardizem in the emergency department at 10 mg per hour for rate control, he is on home dose amiodarone 200 mg twice a day on which he continues, he is already on Eliquis 5 mg twice daily, currently his heart rate is better controlled, on 2 L of oxygen has pulse ox is 90-92%, he was generally fluid overloaded, short of breath, and his chest x-ray showed just showed prominence, and small right plural effusion.. Cardiology started the patient on IV diuretics 40 mg of Lasix every 12 hours, he is in -773 mL fluid balance over the last 24 hours, has quite a bit of swelling in bilateral lower extremities, follow-up chest x-ray today shows cardiomegaly persistent mild to moderate size right pleural effusion. No fever or chills, he tested negative for COVID-19, his baseline FEV1 is 19% of predicted, patient follows with Dr. Ware in the pulmonary clinic, he is on albuterol inhaler, and Advair in addition to Spiriva on an outpatient basis, in addition he is on maintenance dose prednisone 5 mg daily. On 01/20/2021 patient seen in follow-up on medical surgical floor. Patient is currently on 5 L of oxygen, he still has exertional dyspnea just walking to the bathroom, but seems to be in no acute distress. Cardizem drip has been discontinued, he still remains in A. fib with RVR with a rate of 129. Cardiology is following and patient is being loaded with digoxin. No IV fluids. And his IV fluids have been hep-locked, his been afebrile. Vital signs have been stable, he is on nebulized bronchodilators, he is on oral prednisone. He is on Bumex, and he is in negative fluid balance. On 02/01/2021 patient seen in follow-up on selective care unit, he remains in atrial fibrillation, and the rate is still uncontrolled, currently at 126, he is off the Cardizem infusion, he was loaded with digoxin yesterday, he is on metoprolol 75 mg 3 times daily, and continues on maintenance dose of digoxin. He states he is still quite short of breath with any exertion, and walking only short distances in the room, remains on 4 L of oxygen pulse ox 97%, afebrile, remains on bronchodilators, including Symbicort, and DuoNeb, he is on oral prednisone 40 mg daily, is on Bumex 2 mg twice daily. Patient is on Eliquis, and cardiology is planning on cardioversion today. On 01/22/2021 patient seen in follow-up on selective care unit, he is sitting up on the edge of the bed, he does not feel like he is improving, although he seems quite comfortable, does not appear to be in any acute distress, he states he feels tired, but seems to be breathing comfortably, he continues on oral Bumex 2 mg twice daily, he is in negative fluid balance, his weight is down by 4.4 kg in the last 24 hours, he is currently on 4 L of oxygen, his pulse ox is 88%, no fever or chills, no complaints of chest discomfort, he status post transesophageal echocardiogram and cardioversion on 01/21/2021. The seizure was successful, and patient converted to sinus mechanism utilizing 75 J on the first attempt. Vital signs have been stable, blood pressure stable, 106/50, she remains on oral diuretics, he remains on oral amiodarone, and Eliquis in addition to digoxin, he is on nebulized bronchodilators, he is on oral prednisone 40 mg daily, his chest x-ray shows cardiomegaly with small to moderate-sized right pleural effusion and tiny left pleural effusion with associated bibasilar atelectasis. In the findings are relatively stable compared to most recent chest x-ray. On 01/24/2021 patient seen in follow-up on selective care unit, he is sleeping comfortably in bed, but did not like the patient, seems to be breathing comfortably, he is currently on 4 L of oxygen his pulse ox is 92%, has been afebrile, vital signs have been stable overnight. Remains on IV Bumex 2 mg twice daily, he is in -2.5 L over the last 24 hours, yesterday he was also started on Diamox in view of metabolic alkalosis. His CO2 is down slightly to 43 today. Sodium is 139, potassium is 3.8, chloride is 87, BUN is 32, and creatinine is 1.4. Patient remains on Eliquis for history of A. fib. He is on digoxin, oral amiodarone. Patient is on breathing treatments, and oral prednisone 40. New chest x-ray today. On 01/26/2021 patient seen in follow-up on selective care unit. He is awake and alert, in no acute distress, he sitting up in the recliner, he is currently on 4 L of oxygen a pulse ox of 94%, he remains on oral Bumex 2 mg twice daily, he is in negative 3.2 L net fluid balance over the last 24 hours, he also remains on oral Diamox 250 mg twice daily. Overall patient appears to be breathing much easier, no complaints of chest pain, his most recent chest x-ray from yesterday showed mild enlargement of his heart, interstitial prominence, [id number] right pleural effusion with right basilar opacity. Today's labs have been re viewed, his white blood cell count is 10.3, hemoglobin is 12.5, sodium is 138, potassium is 3.4, chloride is 88, CO2 is 43, BUN is 34, and creatinine is 1.4. His heart rate is well controlled, he is on a combination of oral Cordarone, he is on Eliquis for anticoagulation, he is on digoxin, and metoprolol 75 mg 3 times daily, cardiology is following. He is breathing easier, no significant wheezing or congestion. He has been transitioned to oral prednisone. Objective - Vital Signs Vital signs: Vital Signs Temp 97.6 F 01/26/21 08:20 Pulse 54 L 01/26/21 12:00 Resp 18 01/26/21 12:00 BP 110/55 01/26/21 12:00 Pulse Ox 94 L 01/26/21 12:00 Intake & Output 01/25/21 01/26/21 01/26/21 18:59 06:59 18:59 Intake Total 900 358 Output Total 1075 3100 250 Balance -175 -3100 108 Weight 124.6 kg Intake: Oral 900 358 Output: Urine 1075 3100 250 Other: Voiding Method Toilet Toilet Toilet Urinal Urinal Urinal # Voids 2 # Bowel Movements 1 - Exam GENERAL EXAM: Alert, very pleasant, 75-year-old on 4 L of oxygen, with pulse ox of 92% comfortable in no apparent distress. HEAD: Normocephalic/atraumatic. EYES: Normal reaction of pupils, equal size. Conjunctiva pink, sclera white. NOSE: Clear with pink turbinates. THROAT: No erythema or exudates. NECK: No masses, no JVD, no thyroid enlargement, no adenopathy. CHEST: No chest wall deformity. Symmetrical expansion. LUNGS: Equal air entry with no crackles, wheeze, rhonchi or dullness. CVS: regular rate and rhythm currently with a controlled rate, normal S1 and S2, no gallops, no murmurs, no rubs ABDOMEN: Soft, nontender. No hepatosplenomegaly, normal bowel sounds, no guarding or rigidity. EXTREMITIES: No clubbing, 1 plus lower extremity edema no cyanosis, 2+ pulses and upper and lower extremities. MUSCULOSKELETAL: Muscle strength and tone normal. SPINE: No scoliosis or deformity SKIN: No rashes CENTRAL NERVOUS SYSTEM: Alert and oriented -3. No focal deficits, tone is normal in all 4 extremities. PSYCHIATRIC: Alert and oriented -3. Appropriate affect. Intact judgment and insight. - Labs CBC & Chem 7: 01/26/21 08:31 01/26/21 08:31 Labs: Abnormal Lab Results - Last 24 Hours (Table) 01/25/21 01/25/21 01/26/21 Range/Units 16:41 20:26 08:31 RBC (4.30-5.90) m/uL Hgb (13.0-17.5) gm/dL MCV (80.0-100.0) fL MCHC (31.0-37.0) g/dL Neutrophils # (1.3-7.7) k/uL Lymphocytes # (1.0-4.8) k/uL Potassium 3.4 L (3.5-5.1) mmol/L Chloride 88 L (98-107) mmol/L Carbon Dioxide 43 H* (22-30) mmol/L BUN 34 H (9-20) mg/dL Creatinine 1.40 H (0.66-1.25) mg/dL Glucose 127 H (74-99) mg/dL POC Glucose (mg/dL) 165 H 130 H (75-99) mg/dL 01/26/21 Range/Units 08:31 RBC 4.01 L (4.30-5.90) m/uL Hgb 12.5 L (13.0-17.5) gm/dL MCV 105.2 H (80.0-100.0) fL MCHC 29.6 L (31.0-37.0) g/dL Neutrophils # 8.8 H (1.3-7.7) k/uL Lymphocytes # 0.9 L (1.0-4.8) k/uL Potassium (3.5-5.1) mmol/L Chloride (98-107) mmol/L Carbon Dioxide (22-30) mmol/L BUN (9-20) mg/dL Creatinine (0.66-1.25) mg/dL Glucose (74-99) mg/dL POC Glucose (mg/dL) (75-99) mg/dL Assessment and Plan Plan: Assessment: #1. Acute on chronic hypoxic respiratory failure related to acute exacerbation of systolic CHF, with mildly impaired left ventricle systolic function and EF of 45-50%. COVID-19 PCR was negative #2. Mild exacerbation of chronic obstructive pulmonary disease related to the above #3. A. fib with RVR, patient continues on Cardizem infusion at 10 mg per hour, he is on home dose amiodarone 200 mg twice daily and home dose Eliquis 5 mg daily. Status post OSWALDO and successful cardioversion on 01/21/2021 #4. History of chronic A. fib, with previous cardioversion #5. Severe pulmonary hypertension, with right-sided pressure of 66 mmHg likely related to history of COPD #6. Hypertension #7. Chronic nicotine dependence, currently in remission, quit smoking 2 months ago #8. 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 Hearing disorder #10. History of obstructive sleep apnea noncompliant with his home CPAP Plan: Patient is stable Breathing is improving Continue oral Bumex and Diamox Continue prednisone, breathing treatments Increase activity as tolerated Patient can be considered for discharge home from pulmonary perspective if cleared by cardiology Our pulmonary office will be contacting him with an appointment for CPAP titration I performed a history & physical examination of the patient and discussed their management with my nurse practitioner, Bridget Roy. I reviewed the nurse practitioner's note and agree with the documented findings and plan of care. Lung sounds are positive for crackles throughout the lung farah. The findings and the impression was discussed with the patient. I attest to the documentation by the nurse practitioner. Time with Patient: Less than 30
--- NOTE | 2021-01-26 22:37 | P.DS ---
Providers Date of admission: 01/17/21 20:15 Attending physician: Celina Chen Consults: 01/17/21 20:29 Consult Physician Routine Consulting Provider: [facility] Consult Reason/Comments: Afib w RVR Do you want consulting provider notified?: Yes 01/18/21 13:00 Consult Physician Routine Consulting Provider: Gladys Du Reason/Comments: COPD Do you want consulting provider notified?: Yes Primary care physician: [facility] Hospital Course: Final Diagnosis A. fib with RVR , currently is on Eliquis acute on chronic systolic CHF with ejection fraction 45-50% COPD, with mild acute exacerbation Acute on chronic hypoxic respiratory failure Chronic kidney disease liver enzymes are unremarkable. Troponin is negative less than 0.012. 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 Pt will follow up in the pulmonary office in 1 to 2 weeks for a repeat chest xray. Continue with 1200 mL fluid restriction. Repeat BMP in 2 days. Pt will be sent home with home health care. He currently wears 4L NC at home, he is at his baseline. Hospital Course This is a pleasant 75 year old male who presented to the [facility] with complaints of SOB chest pain and palpitations. This patient has PMH of COPD on 4L NC home oxygen, chronic atrial fibrillation on eliquis, systolic and diastolic chronic CHF with an EF of 45-50%, severe pulmonary hypertension, chronic tobacco use, quit 2 months ago, hypertension, hyperlipidemia, JAMEY with CPAP noncompliance, as well as chronic kidney disease, legally blind, history of kidney cancer with right nephrectomy, and morbid obesity. Patient also had some concerns for a TIA becuase he also had an eipsode of drooling at home prior to admission. Patient reports edema in his LE bilaterally. COVID 19 is negative. Pts CO2 is elevated at 43 and he is being discharged on diamox. Potassium 3.4 was replaced per protocol and patient was discharged home on oral potassium. Patient had a chest xray in the [facility] which revealed cardiomegaly and a small right pleural effusion. Patient was started on IV cardizem gtt d/t afib RVR. Pt underwent a succesfull OSWALDO with cardioversion on 01/21. Repeat chest xray on 01/25 revealed mild pulmonary vascular congestion, and small to moderate right effusion with adjacent atelectasis or consolidation. Patient has been transitioned to PO amio and PO digoxin, as well as PO bumex on DC from cardiology services. Vital signs have remained stable, afebrile, SR in the 50's, BP 110/55, 94% on 4L NC. Patient will need to f/u with providers and continue on 1200 cc fluid restriction. 01/26/2021 Patient is evaluated at bedside sitting up in the chair. He is feeling well, was able to get into the shower today. He denies any chest pain, palpitations, cough, or SOB with activity. His lungs are clear to auscultation, and S1 and S2 with regular rate and rhythm are heard. Patient does cont. to have 1-2+ LE pitting edema, however this is improving. Overall patient is down about 30 lbs this hospital stay. Pt is ready for discharge, and has been cleared by cardiology and pulmonary services. Please see medication reconciliation for a list of current medications. Thank you for allowing us to participate in the care of this patient. Patient Condition at Discharge: Fair Plan - Discharge Summary Discharge Rx Participant: No New Discharge Prescriptions: New Bumetanide [BUMEX] 2 mg PO BID #60 tab acetaZOLAMIDE [Diamox] 250 mg PO BID #60 tab Famotidine [Pepcid] 20 mg PO DAILY tab Potassium Chloride ER [K-Dur 20] 20 meq PO DAILY #30 tab Digoxin [Lanoxin] 250 mcg PO DAILY #30 tab Metoprolol Tartrate [Lopressor] 75 mg PO TID #90 tab Continue Vit C/E/Zn/Coppr/Lutein/Zeaxan [Preservision Areds 2 Softgel] 1 cap PO BID Albuterol Sulfate [Proair Hfa] 2 puff INHALATION RT-Q6H PRN PRN Reason: Shortness Of Breath Lidocaine 4% Cream [Lmx 4] 1 applic TOPICAL BID PRN PRN Reason: knee pain Escitalopram [Lexapro] 10 mg PO DAILY Dextran 70/Hypromellose [Lubricating Tears 0.1-0.3% Drp] 1 drop BOTH EYES QID Apixaban [Eliquis] 5 mg PO BID 30 Days #60 tab Fluticasone Propion/Salmeterol [Fluticasone-Salmeterol 500-50] 1 puff INHALATION RT-BID Amiodarone [Cordarone] 200 mg PO DAILY traZODone HCL [Desyrel] 50 mg PO HS predniSONE 5 mg PO DAILY Tiotropium 2.5 Mcg/Puff [Spiriva Respimat 2.5 Mcg] 2 puff INHALATION RT-DAILY Roflumilast [Daliresp] 500 mcg PO DAILY Albuterol Nebulized [Ventolin Nebulized] 2.5 mg INHALATION RT-Q4H Discontinued Metoprolol Tartrate [Lopressor] 50 mg PO TID #90 tab Discharge Medication List Vit C/E/Zn/Coppr/Lutein/Zeaxan [Preservision Areds 2 Softgel] 1 cap PO BID 08/03/17 [History] Albuterol Sulfate [Proair Hfa] 2 puff INHALATION RT-Q6H PRN 02/23/19 [History] Dextran 70/Hypromellose [Lubricating Tears 0.1-0.3% Drp] 1 drop BOTH EYES QID 11/25/20 [History] Escitalopram [Lexapro] 10 mg PO DAILY 11/25/20 [History] Lidocaine 4% Cream [Lmx 4] 1 applic TOPICAL BID PRN 11/25/20 [History] Apixaban [Eliquis] 5 mg PO BID 30 Days #60 tab 11/26/20 [Rx] Amiodarone [Cordarone] 200 mg PO DAILY 12/02/20 [History] Albuterol Nebulized [Ventolin Nebulized] 2.5 mg INHALATION RT-Q4H 01/17/21 [History] Fluticasone Propion/Salmeterol [Fluticasone-Salmeterol 500-50] 1 puff INHALATION RT-BID 01/17/21 [History] Roflumilast [Daliresp] 500 mcg PO DAILY 01/17/21 [History] Tiotropium 2.5 Mcg/Puff [Spiriva Respimat 2.5 Mcg] 2 puff INHALATION RT-DAILY 01/17/21 [History] predniSONE 5 mg PO DAILY 01/17/21 [History] traZODone HCL [Desyrel] 50 mg PO HS 09/11/21 [History] Bumetanide [BUMEX] 2 mg PO BID #60 tab 01/26/21 [Rx] Digoxin [Lanoxin] 250 mcg PO DAILY #30 tab 01/26/21 [Rx] Famotidine [Pepcid] 20 mg PO DAILY tab 01/26/21 [Rx] Metoprolol Tartrate [Lopressor] 75 mg PO TID #90 tab 01/26/21 [Rx] Potassium Chloride ER [K-Dur 20] 20 meq PO DAILY #30 tab 01/26/21 [Rx] acetaZOLAMIDE [Diamox] 250 mg PO BID #60 tab 01/26/21 [Rx] Follow up Appointment(s)/Referral(s): Gladys Du MD [STAFF PHYSICIAN] - 02/10/21 3:45 pm (Patient is to follow-up in 1-2 weeks Will have a repeat chest x-ray the office With Irina Vidal NP) Manfred Rodgers MD [STAFF PHYSICIAN] - 01/30/21 2:45 pm [facility] [Primary Care Provider] - 1-2 days Ambulatory/Diagnostic Orders: Basic Metabolic Panel [LAB.AMB] Time Frame: 2 Days, Location: None Selected Patient Instructions/Handouts: Heart Failure (DC), A-fib (Atrial Fibrillation) (DC), COPD (Chronic Obstructive Pulmonary Disease) (DC) Activity/Diet/Wound Care/Special Instructions: Continue with 1200 mL fluid restriction Patient is to follow up with his PCP, he needs a dig level outpatient as well as a vitamin B12 level. Discharge Disposition: HOME WITH HOME HEALTH SERVICES
== END 2021-01-26 16:04 | disposition home health service (06) | DRG 308 ==
LOC: EC 18:38 → 3SCARD 20:15
PROVIDERS: ADMIT Internal Medicine; ATTEND Internal Medicine
PROC: 5A2204Z Restoration of Cardiac Rhythm, Single (ICD-10-PCS; principal; 2021-01-21 10:40)
DX: I48.20 Chronic atrial fibrillation, unspecified (principal); J96.21 Acute and chronic respiratory failure with hypoxia; I50.43 Acute on chronic combined systolic (congestive) and diastolic (congestive) heart failure; J44.1 Chronic obstructive pulmonary disease with (acute) exacerbation; E87.3 Alkalosis; I27.23 Pulmonary hypertension due to lung diseases and hypoxia; Z20.822 Contact with and (suspected) exposure to COVID-19; J44.0 Chronic obstructive pulmonary disease with (acute) lower respiratory infection; I13.0 Hypertensive heart and chronic kidney disease with heart failure and stage 1 through stage 4 chronic kidney disease, or unspecified chronic kidney disease; H54.8 Legal blindness, as defined in USA; F17.211 Nicotine dependence, cigarettes, in remission; N18.30 Chronic kidney disease, stage 3 unspecified; E78.5 Hyperlipidemia, unspecified; E83.42 Hypomagnesemia; E87.6 Hypokalemia; M19.90 Unspecified osteoarthritis, unspecified site; H91.90 Unspecified hearing loss, unspecified ear; I25.10 Atherosclerotic heart disease of native coronary artery without angina pectoris; E66.9 Obesity, unspecified; G47.33 Obstructive sleep apnea (adult) (pediatric); H35.3290 Exudative age-related macular degeneration, unspecified eye, stage unspecified; F12.90 Cannabis use, unspecified, uncomplicated; I07.1 Rheumatic tricuspid insufficiency; D64.9 Anemia, unspecified; Z99.81 Dependence on supplemental oxygen; Z97.4 Presence of external hearing-aid; Z68.41 Body mass index [BMI] 40.0-44.9, adult; Z90.5 Acquired absence of kidney; Z91.19 Patient's noncompliance with other medical treatment and regimen; Z85.820 Personal history of malignant melanoma of skin; Z85.528 Personal history of other malignant neoplasm of kidney; Z80.8 Family history of malignant neoplasm of other organs or systems; Z79.899 Other long term (current) drug therapy; Z79.01 Long term (current) use of anticoagulants
CPT/HCPCS: 36415; 71045; 71046; 80048; 80053; 83735; 83880; 84443; 84484; 85025; 85610; 85730; 87635; 92960; 93005; 94640; 94760; 96374; 99285

== ENCOUNTER → 2021-02-04 | Outpatient (CLI) | payer MEDICARE ==
[2021-02-05 13:39] LABS: African American GFR (CKD) 70.3 (60.0-200.0); Anion Gap 10.2 mmol/L (4.00-12.00); BUN/Creat Ratio 27.69 Ratio (12.00-20.00); Blood Urea Nitrogen 32.4 mg/dL (9.0-27.0); Carbon Dioxide 37.3 mmol/L (21.6-31.8); Magnesium 2.1 mg/dL (1.5-2.4); Non-African American GFR(CKD) 60.6 (60.0-200.0); Potassium 3.8 mmol/L (3.5-5.5)
== END | disposition home or self-care (01) ==
LOC: LABWHC1 11:47
PROVIDERS: ATTEND Nurse Practitioner Adult Health
DX: I10 Essential (primary) hypertension (principal)
CPT/HCPCS: 36415; 80048; 83735

== ENCOUNTER 2021-04-17 15:16 | Emergency (ER) | payer MEDICARE ==
[2021-04-17 15:24] VITALS: TEMP 98.2
[2021-04-17 16:12] LABS: Albumin 3.5 g/dL (3.5-5.0); Calcium 9.1 mg/dL (8.4-10.2); INR 0.9 (<1.2); Partial Thromboplastin Time 22.2 sec (22.0-30.0); Potassium 3.8 mmol/L (3.5-5.1); Prothrombin Time 10.2 sec (9.0-12.0); Total Bilirubin 0.3 mg/dL (0.2-1.3); Total Protein 6.7 g/dL (6.3-8.2)
[2021-04-17 16:15] LABS: Basophils # (A) 0.1 k/uL (0-0.2); Basophils % (A) 1 %; Eosinophils # (A) 0.4 k/uL (0-0.7); Eosinophils % (A) 7 %; HCT 37.2 % (39.0-53.0); HGB 11.8 gm/dL (13.0-17.5); Hypochromasia Slight; Lymphocytes # (A) 1.1 k/uL (1.0-4.8); Lymphocytes % (A) 18 %; MCH 30.9 pg (25.0-35.0); MCHC 31.8 g/dL (31.0-37.0); MCV 97.3 fL (80.0-100.0); Mean Platelet Volume 7.2; Monocytes # (A) 0.6 k/uL (0-1.0); Monocytes % (A) 9 %; Neutrophils # (A) 3.8 k/uL (1.3-7.7); Neutrophils % (A) 62 %; Platelet Count 239 k/uL (150-450); RBC 3.83 m/uL (4.30-5.90); RDW 14.2 % (11.5-15.5); WBC 6.2 k/uL (3.8-10.6)
--- NOTE | 2021-04-17 16:45 | ED ---
General Adult HPI - General Chief complaint: Shortness of Breath Stated complaint: SOB Time Seen by Provider: 04/17/21 16:32 Source: patient Mode of arrival: wheelchair Limitations: no limitations - History of Present Illness Initial comments: Dictation was produced using [employer] dictation software. please excuse any grammatical, word or spelling errors. Chief Complaint: 75-year-old male with multiple comorbidities presents to the em ergency department for symptoms of head cold History of Present Illness: Patient is a 75-year-old male presents to the emergency department for 10 days of URI symptoms. Patient states he has runny n ose and congestion and a dry cough. Patient has multiple cardiopulmonary comorbidities including A. fib, COPD dyslipidemia and hypertension. Patient wears 4 L nasal cannula at home. Patient denies any shortness of breath. Denies any chest pain. States that his whole household head COVID-19 recently. Patient is vaccinated. The ROS documented in this emergency department record has been reviewed and confirmed by me. Those systems with pertinent positive or negative responses have been documented in the HPI. All other systems are other negative and/or noncontributory. PHYSICAL EXAM: General Impression: Alert and oriented x3, not in acute distress HEENT: Normocephalic atraumatic, extra-ocular movements intact, pupils equal and reactive to light bilaterally, mucous membranes moist. Cardiovascular: Heart regular rate and rhythm Chest: Able to complete full sentences, no retractions, no tachypnea Abdomen: abdomen soft, non-tender, non-distended, no organomegaly Musculoskeletal: Pulses present and equal in all extremities, no peripheral edema Motor: no focal deficits noted Neurological: CN II-XII grossly intact, no focal motor or sensory deficits noted Skin: Intact with no visualized rashes Psych: Normal affect and mood ED course: 75-year-old male presents to the emergency department for URI symptoms. Vital signs upon arrival are within acceptable limits. His 97% on 4 L nasal cannula which is his usual oxygen nasal cannula level. She hasn't underwent and stretch protocol orders. CBC, coag panel, metabolic panel is within acceptable limits. Patient is positive for COVID-19. Patient meets criteria for monoclonal antibody infusion. He is agreeable. Chest x-ray is unremarkable. Patient agreeable for monoclonal antibody infusion. Patient given Afrin spray to bilateral naris for nasal congestion. patient observed after infusion with no issues. The patient will be discharged. Return precautions discussed. - Related Data Home Medications Medication Instructions Recorded Confirmed Vit C/E/Zn/Coppr/Lutein/Zeaxan 1 cap PO BID 08/03/17 01/17/21 [Preservision Areds 2 Softgel] Albuterol Sulfate [Proair Hfa] 2 puff INHALATION RT-Q6H PRN 02/23/19 01/17/21 Dextran 70/Hypromellose 1 drop BOTH EYES QID 11/25/20 01/17/21 [Lubricating Tears 0.1-0.3% Drp] Escitalopram [Lexapro] 10 mg PO DAILY 11/25/20 01/17/21 Lidocaine 4% Cream [Lmx 4] 1 applic TOPICAL BID PRN 11/25/20 01/17/21 Amiodarone [Cordarone] 200 mg PO DAILY 12/02/20 01/17/21 Albuterol Nebulized [Ventolin 2.5 mg INHALATION RT-Q4H 01/17/21 01/17/21 Nebulized] Fluticasone Propion/Salmeterol 1 puff INHALATION RT-BID 01/17/21 01/17/21 [Fluticasone-Salmeterol 500-50] Roflumilast [Daliresp] 500 mcg PO DAILY 01/17/21 01/17/21 Tiotropium 2.5 Mcg/Puff [Spiriva 2 puff INHALATION RT-DAILY 01/17/21 01/17/21 Respimat 2.5 Mcg] predniSONE 5 mg PO DAILY 01/17/21 01/17/21 traZODone HCL [Desyrel] 50 mg PO HS 01/17/21 01/17/21 Previous Rx's Medication Instructions Recorded Apixaban [Eliquis] 5 mg PO BID 30 Days #60 tab 11/26/20 Bumetanide [BUMEX] 2 mg PO BID #60 tab 01/26/21 Digoxin [Lanoxin] 250 mcg PO DAILY #30 tab 01/26/21 Famotidine [Pepcid] 20 mg PO DAILY tab 01/26/21 Metoprolol Tartrate [Lopressor] 75 mg PO TID #90 tab 01/26/21 Potassium Chloride ER [K-Dur 20] 20 meq PO DAILY #30 tab 01/26/21 acetaZOLAMIDE [Diamox] 250 mg PO BID #60 tab 01/26/21 Allergies Allergy/AdvReac Type Severity Reaction Status Date / Time No Known Allergies Allergy Verified 04/17/21 15:21 Review of Systems ROS Statement: Those systems with pertinent positive or pertinent negative responses have been documented in the HPI. ROS Other: All systems not noted in ROS Statement are negative. Past Medical History Past Medical History: Atrial Fibrillation, Cancer, COPD, Eye Disorder, Hearing Disorder / Deafness, Hyperlipidemia, Hypertension, Osteoarthritis (OA) Additional Past Medical History / Comment(s): Emphysema (takes inhalers and uses oxygen at home). Hx Kidney Cancer in 2006, R nephrectomy.q Left eye detached retina. Wet Macular Degeneration right eye. Hx Melanoma on back. Bilateral hearing aid use, legally blind. History of Any Multi-Drug Resistant Organisms: None Reported Past Surgical History: Back Surgery Additional Past Surgical History / Comment(s): Right kidney removed. Left eye surgery X3 for detacted retina. Bilateral cataract surgery. Mohs surgery thoracic spine for melanoma. Past Anesthesia/Blood Transfusion Reactions: Previous Problems w/ Anesthesia Additional Past Anesthesia/Blood Transfusion Reaction / Comment(s): States low heart rate, light-headed and low BP X1 with anesthesia. "Got broke vocal cord and could not talk for 2 months after anesthesia one time." Past Psychological History: No Psychological Hx Reported Smoking Status: Former smoker Past Alcohol Use History: None Reported Past Drug Use History: None Reported - Past Family History Mother Family Medical History: Cancer Additional Family Medical History / Comment(s): Brain CA. Father Family Medical History: CVA/TIA General Exam Limitations: no limitations Course Vital Signs 04/17/21 04/17/21 15:21 17:50 Temperature 98.2 F 98.2 F Pulse Rate 100 73 Respiratory 22 18 Rate Blood Pressure 145/79 133/74 O2 Sat by Pulse 97 100 Oximetry Medical Decision Making - Lab Data Result diagrams: 04/17/21 15:55 04/17/21 15:55 Lab Results 04/17/21 04/17/21 04/17/21 Range/Units 15:29 15:55 15:55 WBC 6.2 (3.8-10.6) k/uL RBC 3.83 L (4.30-5.90) m/uL Hgb 11.8 L (13.0-17.5) gm/dL Hct 37.2 L (39.0-53.0) % MCV 97.3 (80.0-100.0) fL MCH 30.9 (25.0-35.0) pg MCHC 31.8 (31.0-37.0) g/dL RDW 14.2 (11.5-15.5) % Plt Count 239 (150-450) k/uL MPV 7.2 Neutrophils % 62 % Lymphocytes % 18 % Monocytes % 9 % Eosinophils % 7 % Basophils % 1 % Neutrophils # 3.8 (1.3-7.7) k/uL Lymphocytes # 1.1 (1.0-4.8) k/uL Monocytes # 0.6 (0-1.0) k/uL Eosinophils # 0.4 (0-0.7) k/uL Basophils # 0.1 (0-0.2) k/uL Hypochromasia Slight PT 10.2 (9.0-12.0) sec INR 0.9 (<1.2) APTT 22.2 (22.0-30.0) sec Sodium (137-145) mmol/L Potassium (3.5-5.1) mmol/L Chloride (98-107) mmol/L Carbon Dioxide (22-30) mmol/L Anion Gap mmol/L BUN (9-20) mg/dL Creatinine (0.66-1.25) mg/dL Est GFR (CKD-EPI)AfAm (>60 ml/min/1.73 sqM) Est GFR (CKD-EPI)NonAf (>60 ml/min/1.73 sqM) Glucose (74-99) mg/dL Calcium (8.4-10.2) mg/dL Total Bilirubin (0.2-1.3) mg/dL AST (17-59) U/L ALT (4-49) U/L Alkaline Phosphatase (38-126) U/L Troponin I (0.000-0.034) ng/mL Total Protein (6.3-8.2) g/dL Albumin (3.5-5.0) g/dL Coronavirus (PCR) Detected A (Not Detectd) 04/17/21 04/17/21 Range/Units 15:55 15:55 WBC (3.8-10.6) k/uL RBC (4.30-5.90) m/uL Hgb (13.0-17.5) gm/dL Hct (39.0-53.0) % MCV (80.0-100.0) fL MCH (25.0-35.0) pg MCHC (31.0-37.0) g/dL RDW (11.5-15.5) % Plt Count (150-450) k/uL MPV Neutrophils % % Lymphocytes % % Monocytes % % Eosinophils % % Basophils % % Neutrophils # (1.3-7.7) k/uL Lymphocytes # (1.0-4.8) k/uL Monocytes # (0-1.0) k/uL Eosinophils # (0-0.7) k/uL Basophils # (0-0.2) k/uL Hypochromasia PT (9.0-12.0) sec INR (<1.2) APTT (22.0-30.0) sec Sodium 138 (137-145) mmol/L Potassium 3.8 (3.5-5.1) mmol/L Chloride 94 L (98-107) mmol/L Carbon Dioxide 38 H (22-30) mmol/L Anion Gap 6 mmol/L BUN 25 H (9-20) mg/dL Creatinine 1.06 (0.66-1.25) mg/dL Est GFR (CKD-EPI)AfAm 80 (>60 ml/min/1.73 sqM) Est GFR (CKD-EPI)NonAf 69 (>60 ml/min/1.73 sqM) Glucose 104 H (74-99) mg/dL Calcium 9.1 (8.4-10.2) mg/dL Total Bilirubin 0.3 (0.2-1.3) mg/dL AST 55 (17-59) U/L ALT 84 H (4-49) U/L Alkaline Phosphatase 131 H (38-126) U/L Troponin I <0.012 (0.000-0.034) ng/mL Total Protein 6.7 (6.3-8.2) g/dL Albumin 3.5 (3.5-5.0) g/dL Coronavirus (PCR) (Not Detectd) Disposition Clinical Impression: COVID-19 Disposition: HOME SELF-CARE Condition: Good Instructions (If sedation given, give patient instructions): Coronavirus Disease 2019 (COVID-19) Is patient prescribed a controlled substance at d/c from ED?: No Referrals: Sinan Kurtz DO [Doctor of Osteopathic Medicine] - 1-2 days
--- NOTE | 2021-04-17 17:21 | XR ---
EXAMINATION TYPE: XR chest 1V portable DATE OF EXAM: 04/17/2021 COMPARISON: 02/10/2021 HISTORY: Short of breath TECHNIQUE: Single view FINDINGS: Heart is normal. Lungs are clear of consolidation. There are no hilar masses. Costophrenic angles are clear. There is slight coarsening of the interstitial markings. There is no heart failure. IMPRESSION: No active cardiopulmonary disease. Mild pulmonary fibrotic changes. Normal heart. No dugan ge.
[2021-04-17] MEDS ORDERED: CASIRIVIMAB (REGN10933) (EUA) 600 MG, IMDEVIMAB (REGN10987) (EUA) 600 MG in SODIUM CHLO... IVPB ONE (17:30)
[2021-04-17 17:52] VITALS: RESP 18
[2021-04-17] MEDS ORDERED: OXYMETAZOLINE 0.05% NASL SPRAY 1 SPRAY BOTTLE NASAL STA (18:00)
[2021-04-17] MEDS ORDERED: SODIUM CHLORIDE 0.9% 50 ML IVPB ONE (18:00)
[2021-04-17 19:02] VITALS: BP 120/69; PULSE 84
== END 2021-04-17 19:15 | disposition home or self-care (01) ==
LOC: EC 15:16
DX: U07.1 COVID-19 (principal); I48.91 Unspecified atrial fibrillation; J44.9 Chronic obstructive pulmonary disease, unspecified; E78.5 Hyperlipidemia, unspecified; I10 Essential (primary) hypertension; H91.90 Unspecified hearing loss, unspecified ear; M19.90 Unspecified osteoarthritis, unspecified site; Z87.891 Personal history of nicotine dependence; Z79.51 Long term (current) use of inhaled steroids; Z79.01 Long term (current) use of anticoagulants; Z79.899 Other long term (current) drug therapy
CPT/HCPCS: 99284; 36415; 93005; 80053; 84484; 85025; 85610; 85730; 87635; 71045; Q0244

== ENCOUNTER 2021-08-04 14:47 | Observation (INO) | payer OTHER, MEDICARE ==
[2021-08-04] MEDS ORDERED: methylPREDNISolone SOD SUCCI 125 MG/2 ML VIAL IV STA (15:32)
[2021-08-04] MEDS ORDERED: IPRATROPIUM-ALBUTEROL 3 ML NEB INHALATION STA (15:32)
--- NOTE | 2021-08-04 15:37 | ED ---
General Adult HPI - General Chief complaint: Shortness of Breath Stated complaint: MANN Time Seen by Provider: 08/04/21 15:05 Source: patient, family, RN notes reviewed Mode of arrival: ambulatory Limitations: no limitations - History of Present Illness Initial comments: Patient is a pleasant 75-year-old male presenting to emergency Department short of breath. Symptoms have progressively the past couple of weeks. Occasional cough. Patient did go to his doctor recently and was told CO2 level was high. Patient has been recently on antibiotics and steroids without improvement. No fevers. No leg pain or leg swelling. Patient does have history of COPD. - Related Data Home Medications Medication Instructions Recorded Confirmed Vit C/E/Zn/Coppr/Lutein/Zeaxan 1 cap PO BID 08/03/17 05/12/21 [Preservision Areds 2 Softgel] Albuterol Sulfate [Proair Hfa] 2 puff INHALATION RT-Q6H PRN 02/23/19 05/12/21 Dextran 70/Hypromellose 1 drop BOTH EYES QID 11/25/20 05/12/21 [Lubricating Tears 0.1-0.3% Drp] Escitalopram [Lexapro] 10 mg PO DAILY 11/25/20 01/17/21 Lidocaine 4% Cream [Lmx 4] 1 applic TOPICAL BID PRN 11/25/20 01/17/21 Amiodarone [Cordarone] 200 mg PO DAILY 12/02/20 01/17/21 Albuterol Nebulized [Ventolin 2.5 mg INHALATION RT-Q4H 01/17/21 05/12/21 Nebulized] Fluticasone Propion/Salmeterol 1 puff INHALATION RT-BID 01/17/21 05/12/21 [Fluticasone-Salmeterol 500-50] Roflumilast [Daliresp] 500 mcg PO DAILY 01/17/21 01/17/21 Tiotropium 2.5 Mcg/Puff [Spiriva 2 puff INHALATION RT-DAILY 01/17/21 01/17/21 Respimat 2.5 Mcg] predniSONE 5 mg PO DAILY 01/17/21 01/17/21 traZODone HCL [Desyrel] 50 mg PO HS 01/17/21 01/17/21 Previous Rx's Medication Instructions Recorded Apixaban [Eliquis] 5 mg PO BID 30 Days #60 tab 11/26/20 Bumetanide [BUMEX] 2 mg PO BID #60 tab 01/26/21 Digoxin [Lanoxin] 250 mcg PO DAILY #30 tab 01/26/21 Famotidine [Pepcid] 20 mg PO DAILY tab 01/26/21 Metoprolol Tartrate [Lopressor] 75 mg PO TID #90 tab 01/26/21 Potassium Chloride ER [K-Dur 20] 20 meq PO DAILY #30 tab 01/26/21 acetaZOLAMIDE [Diamox] 250 mg PO BID #60 tab 01/26/21 Allergies Allergy/AdvReac Type Severity Reaction Status Date / Time No Known Allergies Allergy Verified 08/04/21 15:09 Review of Systems ROS Statement: Those systems with pertinent positive or pertinent negative responses have been documented in the HPI. ROS Other: All systems not noted in ROS Statement are negative. Constitutional: Denies: fever Eyes: Denies: eye pain ENT: Denies: ear pain Respiratory: Reports: as per HPI, dyspnea Cardiovascular: Denies: chest pain Endocrine: Reports: fatigue Gastrointestinal: Denies: abdominal pain Genitourinary: Denies: dysuria Musculoskeletal: Denies: back pain Skin: Denies: rash Neurological: Denies: weakness Past Medical History Past Medical History: Atrial Fibrillation, Cancer, COPD, Eye Disorder, Hearing Disorder / Deafness, Hyperlipidemia, Hypertension, Osteoarthritis (OA) Additional Past Medical History / Comment(s): Emphysema (takes inhalers and uses oxygen at home). Hx Kidney Cancer in 2006, R nephrectomy.q Left eye detached retina. Wet Macular Degeneration right eye. Hx Melanoma on back. Bilateral hearing aid use, legally blind. History of Any Multi-Drug Resistant Organisms: None Reported Past Surgical History: Back Surgery Additional Past Surgical History / Comment(s): Right kidney removed. Left eye surgery X3 for detacted retina. Bilateral cataract surgery. Mohs surgery thorac ic spine for melanoma. Past Anesthesia/Blood Transfusion Reactions: Previous Problems w/ Anesthesia Additional Past Anesthesia/Blood Transfusion Reaction / Comment(s): States low heart rate, light-headed and low BP X1 with anesthesia. "Got broke vocal cord and could not talk for 2 months after anesthesia one time." Past Psychological History: No Psychological Hx Reported Smoking Status: Never smoker Past Alcohol Use History: None Reported Past Drug Use History: None Reported - Past Family History Mother Family Medical History: Cancer Additional Family Medical History / Comment(s): Brain Cancer. Father Family Medical History: CVA/TIA General Exam Limitations: no limitations General appearance: alert, in no apparent distress Head exam: Present: normocephalic Eye exam: Present: normal appearance Neck exam: Present: normal inspection Respiratory exam: Present: decreased breath sounds Cardiovascular Exam: Present: regular rate, normal rhythm GI/Abdominal exam: Present: soft. Absent: tenderness Extremities exam: Present: normal inspection. Absent: pedal edema, calf tenderness Neurological exam: Present: alert Psychiatric exam: Present: normal affect, normal mood Skin exam: Present: normal color Course Vital Signs 08/04/21 08/04/21 08/04/21 15:04 16:29 16:56 Temperature 98.4 F 97.8 F Pulse Rate 64 62 62 Respiratory 22 20 18 Rate Blood Pressure 106/64 126/72 O2 Sat by Pulse 96 96 Oximetry EKG Findings - EKG Comments: EKG Findings:: Sinus rhythm with rate of 63. [place] 157. QRS 141. QT 378. QTC 35. Normal axis. Bundle-branch block. No acute ST change. Medical Decision Making - Medical Decision Making Patient reevaluated. Patient and family updated. Case discussed with Dr. mcelroy who will admit this patient that was determined to be observation per nursing administration - Lab Data Result diagrams: 08/04/21 15:38 08/04/21 15:38 Lab Results 08/04/21 08/04/21 08/04/21 Range/Units 15:38 15:38 15:38 WBC 9.3 (3.8-10.6) k/uL RBC 4.40 (4.30-5.90) m/uL Hgb 12.9 L (13.0-17.5) gm/dL Hct 41.3 (39.0-53.0) % MCV 94.0 (80.0-100.0) fL MCH 29.4 (25.0-35.0) pg MCHC 31.3 (31.0-37.0) g/dL RDW 13.2 (11.5-15.5) % Plt Count 266 (150-450) k/uL MPV 7.0 Neutrophils % (Manual) 72 % Lymphocytes % (Manual) 19 % Monocytes % (Manual) 8 % Eosinophils % (Manual) 1 % Neutrophils # (Manual) 6.70 (1.3-7.7) k/uL Lymphocytes # (Manual) 1.77 (1.0-4.8) k/uL Monocytes # (Manual) 0.74 (0-1.0) k/uL Eosinophils # (Manual) 0.09 (0-0.7) k/uL Nucleated RBCs 0 (0-0) /100 WBC Manual Slide Review Performed RBC Morphology Normal PT 10.2 (9.0-12.0) sec INR 0.9 (<1.2) APTT 22.0 (22.0-30.0) sec Sample Site ABG pH (7.35-7.45) ABG pCO2 (35-45) mmHg ABG pO2 (83-108) mmHg ABG HCO3 (21-25) mmol/L ABG Total CO2 (19-24) mmol/L ABG O2 Saturation (94-97) % ABG Base Excess mmol/L Pritesh Test FiO2 % Sodium 137 (137-145) mmol/L Potassium 3.8 (3.5-5.1) mmol/L Chloride 89 L (98-107) mmol/L Carbon Dioxide 39 H (22-30) mmol/L Anion Gap 9 mmol/L BUN 45 H (9-20) mg/dL Creatinine 1.81 H (0.66-1.25) mg/dL Est GFR (CKD-EPI)AfAm 41 (>60 ml/min/1.73 sqM) Est GFR (CKD-EPI)NonAf 36 (>60 ml/min/1.73 sqM) Glucose 103 H (74-99) mg/dL Plasma Lactic Acid Fabiano (0.7-2.0) mmol/L Calcium 9.5 (8.4-10.2) mg/dL Total Bilirubin 0.7 (0.2-1.3) mg/dL AST 19 (17-59) U/L ALT 20 (4-49) U/L Alkaline Phosphatase 88 (38-126) U/L Troponin I (0.000-0.034) ng/mL Total Protein 7.1 (6.3-8.2) g/dL Albumin 3.9 (3.5-5.0) g/dL Coronavirus (PCR) (Not Detectd) 08/04/21 08/04/2108/04/22 Range/Units 15:38 15:38 15:38 WBC (3.8-10.6) k/uL RBC (4.30-5.90) m/uL Hgb (13.0-17.5) gm/dL Hct (39.0-53.0) % MCV (80.0-100.0) fL MCH (25.0-35.0) pg MCHC (31.0-37.0) g/dL RDW (11.5-15.5) % Plt Count (150-450) k/uL MPV Neutrophils % (Manual) % Lymphocytes % (Manual) % Monocytes % (Manual) % Eosinophils % (Manual) % Neutrophils # (Manual) (1.3-7.7) k/uL Lymphocytes # (Manual) (1.0-4.8) k/uL Monocytes # (Manual) (0-1.0) k/uL Eosinophils # (Manual) (0-0.7) k/uL Nucleated RBCs (0-0) /100 WBC Manual Slide Review RBC Morphology PT (9.0-12.0) sec INR (<1.2) APTT (22.0-30.0) sec Sample Site ABG pH (7.35-7.45) ABG pCO2 (35-45) mmHg ABG pO2 (83-108) mmHg ABG HCO3 (21-25) mmol/L ABG Total CO2 (19-24) mmol/L ABG O2 Saturation (94-97) % ABG Base Excess mmol/L Pritesh Test FiO2 % Sodium (137-145) mmol/L Potassium (3.5-5.1) mmol/L Chloride (98-107) mmol/L Carbon Dioxide (22-30) mmol/L Anion Gap mmol/L BUN (9-20) mg/dL Creatinine (0.66-1.25) mg/dL Est GFR (CKD-EPI)AfAm (>60 ml/min/1.73 sqM) Est GFR (CKD-EPI)NonAf (>60 ml/min/1.73 sqM) Glucose (74-99) mg/dL Plasma Lactic Acid Fabiano 1.3 (0.7-2.0) mmol/L Calcium (8.4-10.2) mg/dL Total Bilirubin (0.2-1.3) mg/dL AST (17-59) U/L ALT (4-49) U/L Alkaline Phosphatase (38-126) U/L Troponin I 0.020 (0.000-0.034) ng/mL Total Protein (6.3-8.2) g/dL Albumin (3.5-5.0) g/dL Coronavirus (PCR) Not Detected (Not Detectd) 08/04/21 Range/Units 16:07 WBC (3.8-10.6) k/uL RBC (4.30-5.90) m/uL Hgb (13.0-17.5) gm/dL Hct (39.0-53.0) % MCV (80.0-100.0) fL MCH (25.0-35.0) pg MCHC (31.0-37.0) g/dL RDW (11.5-15.5) % Plt Count (150-450) k/uL MPV Neutrophils % (Manual) % Lymphocytes % (Manual) % Monocytes % (Manual) % Eosinophils % (Manual) % Neutrophils # (Manual) (1.3-7.7) k/uL Lymphocytes # (Manual) (1.0-4.8) k/uL Monocytes # (Manual) (0-1.0) k/uL Eosinophils # (Manual) (0-0.7) k/uL Nucleated RBCs (0-0) /100 WBC Manual Slide Review RBC Morphology PT (9.0-12.0) sec INR (<1.2) APTT (22.0-30.0) sec Sample Site Right Radial ABG pH 7.45 (7.35-7.45) ABG pCO2 65 H (35-45) mmHg ABG pO2 207 H (83-108) mmHg ABG HCO3 45 H* (21-25) mmol/L ABG Total CO2 47 H (19-24) mmol/L ABG O2 Saturation 99.1 H (94-97) % ABG Base Excess 21.2 mmol/L Pritesh Test Yes FiO2 35 % Sodium (137-145) mmol/L Potassium (3.5-5.1) mmol/L Chloride (98-107) mmol/L Carbon Dioxide (22-30) mmol/L Anion Gap mmol/L BUN (9-20) mg/dL Creatinine (0.66-1.25) mg/dL Est GFR (CKD-EPI)AfAm (>60 ml/min/1.73 sqM) Est GFR (CKD-EPI)NonAf (>60 ml/min/1.73 sqM) Glucose (74-99) mg/dL Plasma Lactic Acid Fabiano (0.7-2.0) mmol/L Calcium (8.4-10.2) mg/dL Total Bilirubin (0.2-1.3) mg/dL AST (17-59) U/L ALT (4-49) U/L Alkaline Phosphatase (38-126) U/L Troponin I (0.000-0.034) ng/mL Total Protein (6.3-8.2) g/dL Albumin (3.5-5.0) g/dL Coronavirus (PCR) (Not Detectd) - Radiology Data Radiology results: image reviewed (Chest x-ray does not reveal acute abno rmality.) Disposition Clinical Impression: Renal insufficiency, COPD (chronic obstructive pulmonary disease), CO2 retention Disposition: ADMITTED IP TO THIS HOSP Is patient prescribed a controlled substance at d/c from ED?: No Referrals: Vickie Haro, PAC [REFERRING] - 1-2 days
[2021-08-04 15:58] LABS: HCT 41.3 % (39.0-53.0); HGB 12.9 gm/dL (13.0-17.5); MCH 29.4 pg (25.0-35.0); MCHC 31.3 g/dL (31.0-37.0); Platelet Count 266 k/uL (150-450); RDW 13.2 % (11.5-15.5); WBC 9.3 k/uL (3.8-10.6)
[2021-08-04 16:07] LABS: Albumin 3.9 g/dL (3.5-5.0); Calcium 9.5 mg/dL (8.4-10.2); Potassium 3.8 mmol/L (3.5-5.1); Total Bilirubin 0.7 mg/dL (0.2-1.3); Total Protein 7.1 g/dL (6.3-8.2)
[2021-08-04 16:12] LABS: ABG Base Excess 21.2 mmol/L; ABG Oxygen Saturation 99.1 % (94-97); ABG PCO2 65 mmHg (35-45); ABG PH 7.45 (7.35-7.45); ABG PO2 207 mmHg (83-108); ABG TCO2 47 mmol/L (19-24); Allen Test Performed? Yes
--- NOTE | 2021-08-04 16:28 | XR ---
EXAMINATION TYPE: XR chest 2V DATE OF EXAM: 08/04/2021 COMPARISON: X-ray dated 04/17/2021 HISTORY: Difficulty breathing TECHNIQUE: Frontal and lateral views of the chest are obtained. FINDINGS: Suspected COPD changes. Left basal linear pulmonary atelectasis versus minimal pulmonary infiltration . 10 mm nodular density superimposed on the lung bases on the lateral view, not appreciated previousl y. Further elective CT assessment can be considered. Grossly unremarkable lungs otherwise. No sizable pleural effusion or definite pneumothorax. No gross cardiomegaly. Degenerative changes of the thoracic spine. IMPRESSION: No significant acute pulmonary abnormality identified. Incidental findings as described above.
[2021-08-04 16:29] LABS: INR 0.9 (<1.2); Prothrombin Time 10.2 sec (9.0-12.0)
[2021-08-04 16:32] LABS: ABG HCO3 45 mmol/L (21-25)
[2021-08-04 16:39] LABS: Eosinophils # (M) 0.09 k/uL (0-0.7); Lymphocytes # (M) 1.77 k/uL (1.0-4.8); Monocytes # (M) 0.74 k/uL (0-1.0); Neutrophils % (M) 72 %; Nucleated Red Blood Cells 0 /100 WBC (0-0); Total Cells Counted 100
[2021-08-04 16:40] LABS: RBC Morphology Normal
[2021-08-04] MEDS ORDERED: IPRATROPIUM-ALBUTEROL 3 ML NEB INHALATION PRN (17:43)
[2021-08-04] MEDS ORDERED: SODIUM CHLORIDE 0.9% 1,000 ML IV STA (17:43)
[2021-08-04] MEDS: IPRATROPIUM-ALBUTEROL 3 ML NEB INHALATION SCH (21:12)
[2021-08-04] MEDS: methylPREDNISolone SOD SUCCI 125 MG/2 ML VIAL IV SCH (21:35)
--- NOTE | 2021-08-05 01:34 | P.HPIM ---
History of Present Illness H&P Date: 08/04/21 The patient is a 75-year-old male with a PMH of A. fib on Eliquis, hypertension, hyperlipidemia, COPD, chronic hypoxic respiratory failure on 2 L nasal cannula continuous oxygen at home, chronic kidney disease who was sent to the emergency room for abnormal lab results. Patient reports that he was called at home and told that his CO2 was elevated and that he should go to the emergency room. He reports that over the past few days he has been feeling more tired than usual. Reports occasional dyspnea on exertion without chest discomfort. Also reports a poor appetite over the past 1 week due to his above symptoms and thereby a poor oral intake including fluids. Denied experiencing fever, chills, cough. Denied nausea, vomiting, diaphoresis, dizziness. Chest x-ray in the emergency room was unremarkable. EKG reveals sinus rhythm at 63 bpm with a right bundle branch block. Laboratory evaluation was remarkable for a CO2 of 39 on BMP, BUN 45, and creatinine 1.81 (baseline 1.4), and pCO2 of 65 on ABG. The patient reports being diagnosed with obstructive sleep apnea but not using his CPAP. He reports that he does not find it comfortable. Review of systems: Pertinent positives and negatives as discussed in HPI, a complete review of systems was performed and all other systems are negative. Physical examination: General: non toxic, no distress, appears at stated age, obese Derm: no unusual rashes/lesions no unusual ecchymoses, warm, dry Head: atraumatic, normocephalic, symmetric Eyes: EOMI, no lid lag, anicteric sclera, pupils equal round reactive to light ENT: Nose and ears atraumatic, no thrush, no pharyngeal erythema Neck: No thyromegaly, no cervical lymphadenopathy, trachea midline, supple Mouth: no lip lesion, mucus membranes moist Cardiovascular: S1S2 reg, no murmur, positive posterior tibial pulse bilateral, no edema, capillary refill less than 2 seconds Lungs: Expiratory wheezing with somewhat poor air entry, no rhonchi, no rales , no accessory muscle use Abdominal: soft, nontender to palpation, no guarding, no appreciable organomegaly, normal bowel sounds Ext: no gross muscle atrophy, muscle strength 5 out of 5 in all 4 extremities grossly, no contractures, Neuro: CN II-XI grossly intact, light touch intact all 4 extremities, finger to nose within normal limits, Psych: Alert, oriented, appropriate affect Assessment/plan Acute kidney injury, on chronic kidney disease, likely secondary to poor oral intake -Gentle IV fluids Acute COPD exacerbation with acute on chronic hypercapnic respiratory failure -Solumedrol -Duonebs -Home inhalers Chronic conditions: A. fib, hypertension, hyperlipidemia -Continue with home meds DVT prophylaxis -Eliquis The patient is admitted with an anticipated less than 2 midnight stay for evaluation of acute COPD exacer CODE STATUS: Full Code Discussed with: Patient Anticipated discharge date: in am Anticipated discharge place: Home Past Medical History Past Medical History: Atrial Fibrillation, Cancer, COPD, Eye Disorder, Hearing Disorder / Deafness, Hyperlipidemia, Hypertension, Osteoarthritis (OA) Additional Past Medical History / Comment(s): Emphysema (takes inhalers and uses oxygen at home). Hx Kidney Cancer in 2006, R nephrectomy.q Left eye detached retina. Wet Macular Degeneration right eye. Hx Melanoma on back. Bilateral hea ring aid use, legally blind. History of Any Multi-Drug Resistant Organisms: None Reported Past Surgical History: Back Surgery Additional Past Surgical History / Comment(s): Right kidney removed. Left eye surgery X3 for detacted retina. Bilateral cataract surgery. Mohs surgery thoracic spine for melanoma. Past Anesthesia/Blood Transfusion Reactions: Previous Problems w/ Anesthesia Additional Past Anesthesia/Blood Transfusion Reaction / Comment(s): States low heart rate, light-headed and low BP X1 with anesthesia. "Got broke vocal cord and could not talk for 2 months after anesthesia one time." Past Psychological History: No Psychological Hx Reported Smoking Status: Never smoker Past Alcohol Use History: None Reported Past Drug Use History: None Reported - Past Family History Mother Family Medical History: Cancer Additional Family Medical History / Comment(s): Brain Cancer. Father Family Medical History: CVA/TIA Medications and Allergies Home Medications Medication Instructions Recorded Confirmed Type Vit C/E/Zn/Coppr/Lutein/Zeaxan 1 cap PO BID 08/03/17 08/04/21 History [Preservision Areds 2 Softgel] Albuterol Sulfate [Proair Hfa] 2 puff INHALATION RT-Q6H PRN 02/23/19 08/04/21 History Escitalopram [Lexapro] 10 mg PO DAILY 11/25/20 08/04/21 History Apixaban [Eliquis] 5 mg PO BID 30 Days #60 tab 11/26/20 08/04/21 Rx Amiodarone [Cordarone] 200 mg PO DAILY 12/02/20 08/04/21 History Albuterol Nebulized [Ventolin 2.5 mg INHALATION RT-QID PRN 01/17/21 08/04/21 History Nebulized] Fluticasone Propion/Salmeterol 1 puff INHALATION RT-BID 01/17/21 08/04/21 History [Fluticasone-Salmeterol 500-50] Roflumilast [Daliresp] 500 mcg PO DAILY 01/17/21 08/04/21 History Tiotropium 2.5 Mcg/Puff [Spiriva 2 puff INHALATION RT-DAILY 01/17/21 08/04/21 History Respimat 2.5 Mcg] predniSONE 5 mg PO DAILY 01/17/21 08/04/21 History traZODone HCL [Desyrel] 50 mg PO HS 01/17/21 08/04/21 History Digoxin [Lanoxin] 250 mcg PO DAILY #30 tab 01/26/21 08/04/21 Rx Famotidine [Pepcid] 20 mg PO DAILY tab 01/26/21 08/04/21 Rx Metoprolol Tartrate [Lopressor] 75 mg PO TID #90 tab 01/26/21 08/04/21 Rx Potassium Chloride ER [K-Dur 20] 20 meq PO DAILY #30 tab 01/26/21 08/04/21 Rx Ammonium Lactate Cream [Lac-Hydrin 1 applic TOPICAL BID 08/04/21 08/04/21 History 12% Cream] Bumetanide [BUMEX] 2 mg PO BID 08/04/21 08/04/21 History Dextran/Hypromellose/Glycerin 1 drop BOTH EYES QID 08/04/21 08/04/21 History [Genteal Tears 0.1%-0.2%-0.3%] Loratadine 10 mg PO DAILY 08/04/21 08/04/21 History Rosuvastatin [Crestor] 10 mg PO DAILY 08/04/21 08/04/21 History Allergies Allergy/AdvReac Type Severity Reaction Status Date / Time atorvastatin [From Lipitor] Allergy Per Verified 08/04/21 17:52 [facility] Physical Exam Vitals: Vital Signs Temp Pulse Resp BP Pulse Ox 08/04/21 20:50 98.3 F 76 18 114/62 95 08/04/21 16:56 97.8 F 62 18 126/72 96 08/04/21 16:29 62 20 08/04/21 15:04 98.4 F 64 22 106/64 96 Intake and Output 08/04/21 08/04/21 08/04/21 06:59 14:59 22:59 Other: Weight 106.594 kg Results CBC & Chem 7: 08/04/21 15:38 08/04/21 15:38 Labs: Abnormal Lab Results - Last 24 Hours (Table) 08/04/21 08/04/21 08/04/21 Range/Units 15:38 15:38 16:07 Hgb 12.9 L (13.0-17.5) gm/dL ABG pCO2 65 H (35-45) mmHg ABG pO2 207 H (83-108) mmHg ABG HCO3 45 H* (21-25) mmol/L ABG Total CO2 47 H (19-24) mmol/L ABG O2 Saturation 99.1 H (94-97) % Chloride 89 L (98-107) mmol/L Carbon Dioxide 39 H (22-30) mmol/L BUN 45 H (9-20) mg/dL Creatinine 1.81 H (0.66-1.25) mg/dL Glucose 103 H (74-99) mg/dL
[2021-08-05] MEDS: methylPREDNISolone SOD SUCCI 125 MG/2 ML VIAL IV SCH ×4 (04:07→21:40)
[2021-08-05 07:40] LABS: Glucose,Whole Blood 135 mg/dL (75-99)
[2021-08-05] MEDS: IPRATROPIUM-ALBUTEROL 3 ML NEB INHALATION SCH ×4 (08:14→19:39)
[2021-08-05] MEDS: SYMBICORT 160-4.5 MCG INHALER INHALATION SCH ×2 (08:14→19:40)
[2021-08-05] MEDS: IPRATROPIUM 0.5 MG/2.5 ML NEBU INHALATION SCH ×4 (08:15→19:38)
[2021-08-05] MEDS: DIGOXIN 250 MCG TAB PO SCH (08:31)
[2021-08-05] MEDS: INSULIN ASPART (NovoLOG) 100 UNIT/ML VIAL SQ SCH ×4 (08:31→20:26)
[2021-08-05] MEDS: APIXABAN 5 MG TAB PO SCH ×2 (08:31→20:04)
[2021-08-05] MEDS: ESCITALOPRAM 10 MG TAB PO SCH (08:31)
[2021-08-05] MEDS: AMIODARONE 200 MG TAB PO SCH (08:31)
[2021-08-05] MEDS: FAMOTIDINE 20 MG TAB PO SCH (08:31)
[2021-08-05] MEDS: METOPROLOL TARTRATE 25 MG TAB PO SCH ×3 (08:31→20:18)
[2021-08-05] MEDS: BUMETANIDE 1 MG TAB PO SCH ×2 (08:31→20:04)
[2021-08-05] MEDS: NON FORMULARY DRUG (Rosuvastatin 20 MG Tablet) PO SCH (08:32)
--- NOTE | 2021-08-05 08:39 | P.PN ---
Subjective Progress Note Date: 08/05/21 Hospital course: Patient is a very pleasant 75-year-old male with a past medical history of atrial fibrillation on oral anticoagulation with Eliquis, hypertension, hyperlipidemia, type II [id number]-rzajibgak diabetes mellitus, COPD home oxygen dependent on 2 L at all times, obstructive sleep apnea reports has been unable to use CPAP, and stage II chronic kidney disease. Patient presented to the emergency department with a chief complaint of abnormal labs. Patient reports that he went to his PCPs office for a checkup secondary to experiencing increased dyspnea with exertion, decreased appetite, and excessive fatigue worsening over the past week. Patient received a phone call at home telling him that his CO2 was elevated and that he should go to the ER for further evaluat ion. In the emergency department, patient was seen and fully evaluated. Lab findings revealed compensated metabolic alkalosis with pH of 7.45, pCO2 65, pO2 of 207, bicarbonate 45, total CO2 of 47, and O2 saturation of 99.1 with a base excess of 21.2. CBC revealed very mild normocytic normochromic anemia with hemoglobin of 12.9 otherwise unremarkable. Coags unremarkable. CMP revealing non-anion gap metabolic alkalosis with chloride of 89 and bicarb of 39 and acute kidney injury on chronic kidney disease with BUN of 45, creatinine 1.81, and GFR of 36 with baseline creatinine of 1.06. Patient was admitted under our services for acute kidney injury on chronic kidney disease secondary to dehydration resulting from poor oral intake and acute COPD exacerbation with acute on chronic hypercapnic respiratory failure. Physical exam: Patient seen and fully evaluated at the bedside this morning. He was sitting up in the chair. He reports generalized fatigue, nausea, and loss of appetite. He denies having any headache, lightheadedness, dizziness, chest pain, palpitations, shortness of breath at rest, abdominal pain, vomiting, or diarrhea. We will obtain repeat morning labs as well as a digoxin level to rule out digoxin toxicity. Vital signs reviewed and stable. General: Nontoxic, no distress and appears stated age. Derm: Skin warm and dry, normal coloration for ethnicity. Head: Atraumatic, normocephalic and symmetric. Eyes: no lid lag, and anicteric sclera. Patient with a lazy eye and history of left eye detached retina in right eye macular degeneration, legally blind. Mouth: no lip lesions, mucus membranes moist Cardiovascular: regular rate and rhythm with normal S1S2, no murmur, positive posterior tibial pulses bilaterally, and cap refill < 2 seconds. Lungs: Respirations even, regular, and unlabored on room air. Lungs CTA bilaterally, no rhonchi, no rales, no wheezing, and no accessory muscle usage. Abdominal: soft, nontender to palpation, no guarding, no appreciable organomegaly Ext: ROM intact. No gross muscle atrophy, no edema, no contractures Neuro: Speech clear, face symmetrical and CN II-XII grossly intact with no noted focal neuro deficits Psych: Alert and oriented to person, place, time, and situation. Appropriate and pleasant affect. Assessment and Plan of Care: Acute kidney injury on stage II chronic kidney disease, secondary to dehydration resulting from poor oral intake. History of renal carcinoma with right nephrectomy in 2006 Fatigue, decreased appetite, dehydration -Continue hydration with IV fluids. -Hold nephrotoxic medications -Continue close monitoring with repeat a.m. labs. -Obtain digoxin level to rule out dig toxicity secondary to reports of loss of appetite. Patient does deny episodes of vomiting, diarrhea, palpitations, headache, lightheadedness or vision changes. Acute COPD exacerbation with acute on chronic hypercapnic respiratory failure Obstructive sleep apnea -Provide oxygenation as needed to maintain SpO2 equal to or greater than 92%. -Encourage use of CPAP nightly as recommended. Discussed with patient possibility of getting alternative mask, possibly nasal CPAP mask. Discussed with respiratory and case management, working with medical supply company in attempts to obtain. May be difficult as patient's CPAP and supplies are from [place]. -Telemetry monitoring. -Monitor Pulse-oximetry -Duonebs as needed for SOB and/or wheezing -Encourage use of Incentive Spirometry 10-15 times hourly while awake -Steroids: Solu-Medrol -Consult the general manager Atrial fibrillation -Continue daily medication regimen with amiodarone, digoxin, metoprolol, and Eliquis. -Obtain digoxin level. Hypertension -Monitor vital signs and continue daily medication regimen. Hyperlipidemia -Continue daily medication regimen with rosuvastatin. -Encourage heart healthy and carb consistent diet. Vmj-bvlmdyq-peviwyisy diabetes mellitus -Patient on home medications normally diet-controlled, Place patient on glycemic protocol with NovoLog sliding scale as patient has been placed on steroids which will likely increase glucose levels. -We will obtain a hemoglobin A1c with a.m. labs. 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 -Fall precautions CODE STATUS: Full code DVT prophylaxis: Richard Discussed with: Patient and RN Anticipated discharge date: likely tomorrow pending repeat a.m. labs Anticipated discharge place: Home A total of 38 minutes was spent on the care of this complex patient more than 50% of the time was spent in counseling and care coordination. I reviewed the documentation as provided by the CHANDLER above, who is the original author of this note. I agree with the documented assessment and plan, with the following changes: None Objective - Vital Signs Vital signs: Vital Signs Temp 98.2 F 08/05/21 04:45 Pulse 83 08/05/21 08:37 Resp 20 08/05/21 04:45 BP 128/62 08/05/21 04:45 Pulse Ox 97 08/05/21 08:21 Intake & Output 08/04/21 08/05/21 08/05/21 18:59 06:59 18:59 Intake Total 100 Balance 100 Weight 106.594 kg Intake: Oral 100 Other: Voiding Method Toilet Urinal # Voids 1 - Labs CBC & Chem 7: 08/05/21 08:32 08/05/21 08:32 Labs: Abnormal Lab Results - Last 24 Hours (Table) 08/04/21 08/04/21 08/04/21 Range/Units 15:38 15:38 16:07 Hgb 12.9 L (13.0-17.5) gm/dL ABG pCO2 65 H (35-45) mmHg ABG pO2 207 H (83-108) mmHg ABG HCO3 45 H* (21-25) mmol/L ABG Total CO2 47 H (19-24) mmol/L ABG O2 Saturation 99.1 H (94-97) % Chloride 89 L (98-107) mmol/L Carbon Dioxide 39 H (22-30) mmol/L BUN 45 H (9-20) mg/dL Creatinine 1.81 H (0.66-1.25) mg/dL Glucose 103 H (74-99) mg/dL POC Glucose (mg/dL) (75-99) mg/dL 08/05/21 Range/Units 07:39 Hgb (13.0-17.5) gm/dL ABG pCO2 (35-45) mmHg ABG pO2 (83-108) mmHg ABG HCO3 (21-25) mmol/L ABG Total CO2 (19-24) mmol/L ABG O2 Saturation (94-97) % Chloride (98-107) mmol/L Carbon Dioxide (22-30) mmol/L BUN (9-20) mg/dL Creatinine (0.66-1.25) mg/dL Glucose (74-99) mg/dL POC Glucose (mg/dL) 135 H (75-99) mg/dL
[2021-08-05 08:59] LABS: HCT 37.4 % (39.0-53.0); HGB 11.9 gm/dL (13.0-17.5); MCH 30.1 pg (25.0-35.0); MCHC 31.9 g/dL (31.0-37.0); MCV 94.2 fL (80.0-100.0); Mean Platelet Volume 7.4; Platelet Count 221 k/uL (150-450); RBC 3.97 m/uL (4.30-5.90); RDW 12.7 % (11.5-15.5); WBC 8.4 k/uL (3.8-10.6)
[2021-08-05] MEDS ORDERED: predniSONE 5 MG TAB PO SCH (09:00)
[2021-08-05 09:08] LABS: ALT 18 U/L (4-49); AST 16 U/L (17-59); African American GFR (CKD) 45 (>60 ml/min/1.73 sqM); Albumin 3.4 g/dL (3.5-5.0); Albumin/Globulin Ratio 1.2; Alkaline Phosphatase 95 U/L (38-126); Blood Urea Nitrogen 47 mg/dL (9-20); Calcium 8.8 mg/dL (8.4-10.2); Chloride 86 mmol/L (98-107); Globulin 2.9 g/dL; Glucose 199 mg/dL (74-99); Magnesium 1.8 mg/dL (1.6-2.3); Non-African American GFR(CKD) 39 (>60 ml/min/1.73 sqM); Potassium 3.7 mmol/L (3.5-5.1); Sodium 134 mmol/L (137-145); Total Bilirubin 0.7 mg/dL (0.2-1.3); Total Protein 6.3 g/dL (6.3-8.2)
[2021-08-05 09:14] LABS: Anion Gap 9 mmol/L
[2021-08-05 09:18] LABS: Carbon Dioxide 39 mmol/L (22-30)
[2021-08-05 11:50] LABS: Glucose,Whole Blood 239 mg/dL (75-99)
[2021-08-05 13:48] LABS: Glucose,Whole Blood 170 mg/dL (75-99)
[2021-08-05 14:25] LABS: Glucose,Whole Blood 182 mg/dL (75-99)
[2021-08-05 15:11] LABS: VBG PH 7.45 (7.31-7.41)
[2021-08-05 16:58] LABS: Glucose,Whole Blood 149 mg/dL (75-99)
[2021-08-05 20:22] LABS: Glucose,Whole Blood 172 mg/dL (75-99)
[2021-08-05] MEDS ORDERED: traZODone HCL 50 MG TAB PO SCH (21:00)
[2021-08-06] MEDS ORDERED: MELATONIN 5 MG TABLET PO SCH (01:00)
[2021-08-06] MEDS: methylPREDNISolone SOD SUCCI 125 MG/2 ML VIAL IV SCH ×2 (04:15→10:50)
[2021-08-06 07:36] LABS: Glucose,Whole Blood 160 mg/dL (75-99)
[2021-08-06] MEDS: NON FORMULARY DRUG (Rosuvastatin 20 MG Tablet) PO SCH (07:47)
[2021-08-06] MEDS: FAMOTIDINE 20 MG TAB PO SCH (07:49)
[2021-08-06] MEDS: DIGOXIN 250 MCG TAB PO SCH (07:49)
[2021-08-06] MEDS: APIXABAN 5 MG TAB PO SCH (07:49)
[2021-08-06] MEDS: INSULIN ASPART (NovoLOG) 100 UNIT/ML VIAL SQ SCH ×2 (07:49→12:11)
[2021-08-06] MEDS: AMIODARONE 200 MG TAB PO SCH (07:49)
[2021-08-06] MEDS: BUMETANIDE 1 MG TAB PO SCH (07:49)
[2021-08-06] MEDS: METOPROLOL TARTRATE 25 MG TAB PO SCH (07:49)
[2021-08-06] MEDS: ESCITALOPRAM 10 MG TAB PO SCH (07:50)
[2021-08-06 08:10] VITALS: BP 102/55; RESP 18; TEMP 97.7
[2021-08-06] MEDS: IPRATROPIUM 0.5 MG/2.5 ML NEBU INHALATION SCH ×2 (08:13→11:52)
[2021-08-06] MEDS: SYMBICORT 160-4.5 MCG INHALER INHALATION SCH (08:15)
[2021-08-06] MEDS: IPRATROPIUM-ALBUTEROL 3 ML NEB INHALATION SCH ×2 (08:15→11:52)
[2021-08-06 09:14] LABS: HCT 33.2 % (39.6-50.0); HGB 10.5 g/dL (13.0-17.0); MCH 28.8 pg (27.0-32.0); MCHC 31.6 g/dL (32.0-37.0); MCV 91.2 fL (80.0-97.0); Mean Platelet Volume 9.7 fL (9.5-12.2); NRBC Per 100 WBC 0 /100 WBCS (0.0-0.0); Platelet Count 213 X 10*3/uL (140-440); RBC 3.64 X 10*6/uL (4.40-5.60); RDW 12.8 % (11.5-14.5); WBC 14.36 X 10*3/uL (4.50-10.00)
[2021-08-06 09:22] LABS: African American GFR (CKD) 44.7 (60.0-200.0); Albumin 3.6 g/dL (3.8-4.9); Albumin/Globulin Ratio 1.64 (1.60-3.17); Anion Gap 12.5 mmol/L (10.00-18.00); BUN/Creat Ratio 25.53 Ratio (12.00-20.00); Blood Urea Nitrogen 43.4 mg/dL (9.0-27.0); Calcium 8.6 mg/dL (8.7-10.3); Carbon Dioxide 34.5 mmol/L (20.0-27.5); Globulin 2.2 g/dL (1.6-3.3); Magnesium 2.3 mg/dL (1.5-2.4); Non-African American GFR(CKD) 38.6 (60.0-200.0); Potassium 3.6 mmol/L (3.5-5.5); Total Bilirubin 0.3 mg/dL (0.30-1.20); Total Protein 5.8 g/dL (6.2-8.2)
--- NOTE | 2021-08-06 10:33 | P.PN ---
Subjective Progress Note Date: 08/06/21 Hospital course: Patient is a very pleasant 75-year-old male with a past medical history of atrial fibrillation on oral anticoagulation with Eliquis, hypertension, hyperlipidemia, type II xfq-fbeiqyg-agaafddcw diabetes mellitus, COPD home oxygen dependent on 2 L at all times, obstructive sleep apnea reports has been unable to use CPAP, and stage II chronic kidney disease. Patient presented to the emergency department with a chief complaint of abnormal labs. Patient reports that he went to his PCPs office for a checkup secondary to experiencing increased dyspnea with exertion, decreased appetite, and excessive fatigue worsening over the past week. Patient received a phone call at home telling him that his CO2 was elevated and that he should go to the ER for further evaluat ion. In the emergency department, patient was seen and fully evaluated. Lab findings revealed compensated metabolic alkalosis with pH of 7.45, pCO2 65, pO2 of 207, bicarbonate 45, total CO2 of 47, and O2 saturation of 99.1 with a base excess of 21.2. CBC revealed very mild normocytic normochromic anemia with hemoglobin of 12.9 otherwise unremarkable. Coags unremarkable. CMP revealing non-anion gap metabolic alkalosis with chloride of 89 and bicarb of 39 and acute kidney injury on chronic kidney disease with BUN of 45, creatinine 1.81, and GFR of 36 with baseline creatinine of 1.06. Patient was admitted under our services for acute kidney injury on chronic kidney disease secondary to dehydration resulting from poor oral intake and acute COPD exacerbation with acute on chronic hypercapnic respiratory failure. Physical exam: Patient seen and fully evaluated at the bedside this morning. He was sitting up in the chair. He reports generalized fatigue, nausea, and loss of appetite. He denies having any headache, lightheadedness, dizziness, chest pain, palpitations, shortness of breath at rest, abdominal pain, vomiting, or diarrhea. We will obtain repeat morning labs as well as a digoxin level to rule out digoxin toxicity. Vital signs reviewed and stable. General: Nontoxic, no distress and appears stated age. Derm: Skin warm and dry, normal coloration for ethnicity. Head: Atraumatic, normocephalic and symmetric. Eyes: no lid lag, and anicteric sclera. Patient with a lazy eye and history of left eye detached retina in right eye macular degeneration, legally blind. Mouth: no lip lesions, mucus membranes moist Cardiovascular: regular rate and rhythm with normal S1S2, no murmur, positive posterior tibial pulses bilaterally, and cap refill < 2 seconds. Lungs: Respirations even, regular, and unlabored on room air. Lungs CTA bilaterally, no rhonchi, no rales, no wheezing, and no accessory muscle usage. Abdominal: soft, nontender to palpation, no guarding, no appreciable organomegaly Ext: ROM intact. No gross muscle atrophy, no edema, no contractures Neuro: Speech clear, face symmetrical and CN II-XII grossly intact with no noted focal neuro deficits Psych: Alert and oriented to person, place, time, and situation. Appropriate and pleasant affect. Assessment and Plan of Care: Acute kidney injury on stage II chronic kidney disease, secondary to dehydration resulting from poor oral intake. History of renal carcinoma with right nephrectomy in 2006 Fatigue, decreased appetite, dehydration -Continue hydration with IV fluids. -Hold nephrotoxic medications -Continue close monitoring with repeat a.m. labs. -Obtain digoxin level to rule out dig toxicity secondary to reports of loss of appetite. Patient does deny episodes of vomiting, diarrhea, palpitations, headache, lightheadedness or vision changes. Acute COPD exacerbation with acute on chronic hypercapnic respiratory failure Obstructive sleep apnea -Provide oxygenation as needed to maintain SpO2 equal to or greater than 92%. -Encourage use of CPAP nightly as recommended. Discussed with patient possibility of getting alternative mask, possibly nasal CPAP mask. Discussed with respiratory and case management, working with medical supply company in attempts to obtain. May be difficult as patient's CPAP and supplies are from [place]. -Telemetry monitoring. -Monitor Pulse-oximetry -Duonebs as needed for SOB and/or wheezing -Encourage use of Incentive Spirometry 10-15 times hourly while awake -Steroids: Solu-Medrol -Consult the professor of communication and writing Atrial fibrillation -Continue daily medication regimen with amiodarone, digoxin, metoprolol, and Eliquis. -Obtain digoxin level. Hypertension -Monitor vital signs and continue daily medication regimen. Hyperlipidemia -Continue daily medication regimen with rosuvastatin. -Encourage heart healthy and carb consistent diet. Umu-cqexeca-autijbnju diabetes mellitus -Patient on home medications normally diet-controlled, Place patient on glycemic protocol with NovoLog sliding scale as patient has been placed on steroids which will likely increase glucose levels. -We will obtain a hemoglobin A1c with a.m. labs. 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 -Fall precautions CODE STATUS: Full code DVT prophylaxis: Richard Discussed with: Patient and RN Anticipated discharge date: likely tomorrow pending repeat a.m. labs Anticipated discharge place: Home A total of 38 minutes was spent on the care of this complex patient more than 50% of the time was spent in counseling and care coordination. Objective - Vital Signs Vital signs: Vital Signs Temp 97.7 F 08/06/21 07:30 Pulse 74 08/06/21 08:23 Resp 18 08/06/21 07:30 BP 102/55 08/06/21 07:30 Pulse Ox 94 L 08/06/21 08:16 Intake & Output 08/05/21 08/06/21 08/06/21 18:59 06:59 18:59 Intake Total 700 900 Output Total 275 Balance 425 900 Intake: Intake, IV Titration 600 900 Amount Sodium Chloride 0.9% 1, 600 900 000 ml @ 75 mls/hr IV . [id number] STA Rx#:[id number] Oral 100 Output: Urine 275 Other: Voiding Method Urinal Urinal Urinal # Bowel Movements 0 0 - Labs CBC & Chem 7: 08/06/21 06:27 08/06/21 06:27 Labs: Abnormal Lab Results - Last 24 Hours (Table) 08/05/21 08/05/21 08/05/21 Range/Units 11:48 13:46 14:23 WBC (4.50-10.00) X 10*3/uL RBC (4.40-5.60) X 10*6/uL Hgb (13.0-17.0) g/dL Hct (39.6-50.0) % MCHC (32.0-37.0) g/dL VBG pH (7.31-7.41) VBG pCO2 (37-51) mmHg VBG HCO3 (24-28) mmol/L Chloride (96-109) mmol/L Carbon Dioxide (20.0-27.5) mmol/L BUN (9.0-27.0) mg/dL Creatinine (0.6-1.5) mg/dL Est GFR (CKD-EPI)AfAm (60.0-200.0) Est GFR (CKD-EPI)NonAf (60.0-200.0) BUN/Creatinine Ratio (12.00-20.00) Ratio Glucose (70-110) mg/dL POC Glucose (mg/dL) 239 H 170 H 182 H (75-99) mg/dL Calcium (8.7-10.3) mg/dL AST (14-35) U/L Total Protein (6.2-8.2) g/dL Albumin (3.8-4.9) g/dL 08/05/21 08/05/21 08/05/21 Range/Units 14:35 16:56 20:21 WBC (4.50-10.00) X 10*3/uL RBC (4.40-5.60) X 10*6/uL Hgb (13.0-17.0) g/dL Hct (39.6-50.0) % MCHC (32.0-37.0) g/dL VBG pH 7.45 H (7.31-7.41) VBG pCO2 53 H (37-51) mmHg VBG HCO3 36 H (24-28) mmol/L Chloride (96-109) mmol/L Carbon Dioxide (20.0-27.5) mmol/L BUN (9.0-27.0) mg/dL Creatinine (0.6-1.5) mg/dL Est GFR (CKD-EPI)AfAm (60.0-200.0) Est GFR (CKD-EPI)NonAf (60.0-200.0) BUN/Creatinine Ratio (12.00-20.00) Ratio Glucose (70-110) mg/dL POC Glucose (mg/dL) 149 H 172 H (75-99) mg/dL Calcium (8.7-10.3) mg/dL AST (14-35) U/L Total Protein (6.2-8.2) g/dL Albumin (3.8-4.9) g/dL 08/06/21 08/06/21 08/06/21 Range/Units 06:27 06:27 07:32 WBC 14.36 H (4.50-10.00) X 10*3/uL RBC 3.64 L (4.40-5.60) X 10*6/uL Hgb 10.5 L (13.0-17.0) g/dL Hct 33.2 L (39.6-50.0) % MCHC 31.6 L (32.0-37.0) g/dL VBG pH (7.31-7.41) VBG pCO2 (37-51) mmHg VBG HCO3 (24-28) mmol/L Chloride 91 L (96-109) mmol/L Carbon Dioxide 34.5 H (20.0-27.5) mmol/L BUN 43.4 H (9.0-27.0) mg/dL Creatinine 1.7 H (0.6-1.5) mg/dL Est GFR (CKD-EPI)AfAm 44.7 L (60.0-200.0) Est GFR (CKD-EPI)NonAf 38.6 L (60.0-200.0) BUN/Creatinine Ratio 25.53 H (12.00-20.00) Ratio Glucose 156 H (70-110) mg/dL POC Glucose (mg/dL) 160 H (75-99) mg/dL Calcium 8.6 L (8.7-10.3) mg/dL AST 7 L (14-35) U/L Total Protein 5.8 L (6.2-8.2) g/dL Albumin 3.6 L (3.8-4.9) g/dL
[2021-08-06 11:43] LABS: Glucose,Whole Blood 152 mg/dL (75-99)
--- NOTE | 2021-08-06 12:14 | P.CNPUL ---
History of Present Illness Consult date: 08/06/21 Requesting physician: Flavia Vega Reason for consult: dyspnea, COPD Chief complaint: Shortness of breath History of present illness: This is a very pleasant 75-year-old male patient who follows at the [facility] for his primary care needs. He has a history of atrial fibrillation, kidney cancer status post right nephrectomy in 2006, hyperlipidemia, hypertension, hearing disorder, osteoarthritis, resection of a melanoma of the back. He also has a history of 60 years of chronic tobacco dependence however quit in January 2021. He had been seen and evaluated our office at that time. His FEV1 value is 19% of predicted. Gold stage IV COPD. He is oxygen dependent normally on 4 L/m per nasal cannula. He also has obstructive sleep apnea and had previously been prescribed CPAP though he denies using it often. He also has essential tremors. He presented here on 08/04/2021 with complaints of increasing shortness of breath. He is seen today in consultation on the regular medical f david. He is awake and alert in no acute distress. Currently maintaining O2 saturations in the 90s on 2 L/m per nasal cannula. He is afebrile. Hemodynamically stable. Chest x-ray revealed no significant acute pulmonary process. Evidence of COPD. 10 mm nodular density superimposed on the lung b ases on the lateral view. White count 14.3. Hemoglobin 10.5. Sodium 138. Potassium 3.6. BUN 43. Creatinine 1.7. Blood glucose 152. He's been initiated on Symbicort, DuoNeb inhalations, IV Solu-Medrol. He is breathing a bit easier today compared to yesterday. Review of Systems REVIEW OF SYSTEMS: CONSTITUTIONAL: Denies any recent significant weight loss or weight gain. EYES: Denies change in vision. EARS, NOSE, MOUTH, THROAT: Denies headaches, denies sore throat. CARDIOVASCULAR: Denies chest pain, palpitations or syncopal episodes. RESPIRATORY: Positive for shortness of breath, cough, congestion no hemoptysis. GASTROINTESTINAL: Denies change in appetite, denies abdominal pain GENITOURINARY: Denies hematuria, denies infections. MUSKULOSKELETAL: Denies pain, denies swelling. INTEGUMENTARY: Denies rash, denies eczema. NEUROLOGICAL: Denies recent memory loss, no recent seizure activity. PSYCHIATRIC: Denies anxiety, denies depression. HEMATOLOGIC/LYMPHATIC: Denies anemia, denies enlarged lymph nodes. Past Medical History Past Medical History: Atrial Fibrillation, Cancer, COPD, Eye Disorder, Hearing Disorder / Deafness, Hyperlipidemia, Hypertension, Osteoarthritis (OA) Additional Past Medical History / Comment(s): Emphysema (takes inhalers and uses oxygen at home). Hx Kidney Cancer in 2006, R nephrectomy.q Left eye detached retina. Wet Macular Degeneration right eye. Hx Melanoma on back. Bilateral hearing aid use, legally blind. History of Any Multi-Drug Resistant Organisms: None Reported Past Surgical History: Back Surgery Additional Past Surgical History / Comment(s): Right kidney removed. Left eye s urgery X3 for detacted retina. Bilateral cataract surgery. Mohs surgery thoracic spine for melanoma. Past Anesthesia/Blood Transfusion Reactions: Previous Problems w/ Anesthesia Additional Past Anesthesia/Blood Transfusion Reaction / Comment(s): States low heart rate, light-headed and low BP X1 with anesthesia. "Got broke vocal cord and could not talk for 2 months after anesthesia one time." Smoking Status: Former smoker - Past Family History Mother Family Medical History: Cancer Additional Family Medical History / Comment(s): Brain Cancer. Father Family Medical History: CVA/TIA Medications and Allergies Home Medications Medication Instructions Recorded Confirmed Type Vit C/E/Zn/Coppr/Lutein/Zeaxan 1 cap PO BID 08/03/17 08/04/21 History [Preservision Areds 2 Softgel] Albuterol Sulfate [Proair Hfa] 2 puff INHALATION RT-Q6H PRN 02/23/19 08/04/21 History Escitalopram [Lexapro] 10 mg PO DAILY 11/25/20 08/04/21 History Apixaban [Eliquis] 5 mg PO BID 30 Days #60 tab 11/26/20 08/04/21 Rx Amiodarone [Cordarone] 200 mg PO DAILY 12/02/20 08/04/21 History Albuterol Nebulized [Ventolin 2.5 mg INHALATION RT-QID PRN 01/17/21 08/04/21 History Nebulized] Fluticasone Propion/Salmeterol 1 puff INHALATION RT-BID 01/17/21 08/04/21 History [Fluticasone-Salmeterol 500-50] Roflumilast [Daliresp] 500 mcg PO DAILY 01/17/21 08/04/21 History Tiotropium 2.5 Mcg/Puff [Spiriva 2 puff INHALATION RT-DAILY 01/17/21 08/04/21 History Respimat 2.5 Mcg] traZODone HCL [Desyrel] 50 mg PO HS 01/17/21 08/04/21 History Famotidine [Pepcid] 20 mg PO DAILY tab 01/26/21 08/04/21 Rx Metoprolol Tartrate [Lopressor] 75 mg PO TID #90 tab 01/26/21 08/04/21 Rx Potassium Chloride ER [K-Dur 20] 20 meq PO DAILY #30 tab 01/26/21 08/04/21 Rx Ammonium Lactate Cream [Lac-Hydrin 1 applic TOPICAL BID 08/04/21 08/04/21 History 12% Cream] Bumetanide [BUMEX] 2 mg PO BID 08/04/21 08/04/21 History Dextran/Hypromellose/Glycerin 1 drop BOTH EYES QID 08/04/21 08/04/21 History [Genteal Tears 0.1%-0.2%-0.3%] Loratadine 10 mg PO DAILY 08/04/21 08/04/21 History Rosuvastatin [Crestor] 10 mg PO DAILY 08/04/21 08/04/21 History Digoxin [Lanoxin] 125 mcg PO DAILY #30 tab 08/06/21 08/04/21 Rx predniSONE 5 mg PO DAILY #0 08/06/21 08/04/21 Rx predniSONE 50 mg PO DAILY 5 Days #5 tab 08/06/21 Rx Allergies Allergy/AdvReac Type Severity Reaction Status Date / Time atorvastatin [From Lipitor] Allergy Per Verified 08/04/21 17:52 [facility] Physical Exam Vitals: Vital Signs Temp Pulse Pulse Resp BP Pulse Ox 08/06/21 12:01 75 08/06/21 11:53 73 08/06/21 08:23 74 08/06/21 08:16 70 94 L 08/06/21 07:30 97.7 F 68 18 102/55 92 L 08/06/21 04:50 97.5 F L 69 16 121/62 93 L 08/05/21 20:32 97.2 F L 64 18 113/48 95 08/05/21 20:00 18 03/30/22 19:55 68 08/05/21 19:40 64 92 L 08/05/21 16:11 76 08/05/21 15:56 67 08/05/21 14:19 70 22 113/57 99 08/05/21 14:12 77 22 131/55 98 08/05/21 12:25 98.1 F 66 20 119/60 92 L Intake and Output 08/05/21 08/06/21 08/06/21 22:59 06:59 14:59 Intake Total 600 900 Output Total 275 Balance 325 900 Intake: Intake, IV Titration 600 900 Amount Sodium Chloride 0.9% 1, 600 900 000 ml @ 75 mls/hr IV . [id number] STA Rx#:[id number] Output: Urine 275 Other: Voiding Method Urinal Urinal # Bowel Movements 0 GENERAL EXAM: Alert, active, pleasant 75 year gentleman, on 2 L nasal cannula, comfortable in no apparent distress. HEAD: Normocephalic. EYES: Normal reaction of pupils, equal size. NOSE: Clear with pink turbinates. THROAT: No erythema or exudates. NECK: No masses, no JVD. CHEST: No chest wall deformity. LUNGS: Equal air entry with faint and extra wheeze, diminished. CVS: S1 and S2 normal with no audible murmur, regular rhythm. ABDOMEN: No hepatosplenomegaly, normal bowel sounds, no guarding or rigidity. SPINE: No scoliosis or deformity SKIN: No rashes CENTRAL NERVOUS SYSTEM: No focal deficits, tone is normal in all 4 extremities. EXTREMITIES: There is no peripheral edema. No clubbing, no cyanosis. Peripheral pulses are intact. Results - Laboratory Findings CBC and BMP: 08/06/21 06:27 08/06/21 06:27 ABG ABG pH 7.45 (7.35-7.45) 08/04/21 16:07 ABG pCO2 65 mmHg (35-45) H 08/04/21 16:07 ABG pO2 207 mmHg (83-108) H 08/04/21 16:07 ABG O2 Saturation 99.1 % (94-97) H 08/04/21 16:07 PT/INR, D-dimer PT 10.2 sec (9.0-12.0) 08/04/21 15:38 INR 0.9 (<1.2) 08/04/21 15:38 Abnormal lab findings: Abnormal Labs 08/04/21 08/04/21 08/04/21 15:38 15:38 16:07 WBC RBC Hgb 12.9 L Hct MCHC ABG pCO2 65 H ABG pO2 207 H ABG HCO3 45 H* ABG Total CO2 47 H ABG O2 Saturation 99.1 H VBG pH VBG pCO2 VBG HCO3 Sodium Chloride 89 L Carbon Dioxide 39 H BUN 45 H Creatinine 1.81 H Est GFR (CKD-EPI)AfAm Est GFR (CKD-EPI)NonAf BUN/Creatinine Ratio Glucose 103 H POC Glucose (mg/dL) Calcium AST Total Protein Albumin 08/05/21 08/05/21 08/05/21 07:39 08:32 08:32 WBC RBC 3.97 L Hgb 11.9 L Hct 37.4 L MCHC ABG pCO2 ABG pO2 ABG HCO3 ABG Total CO2 ABG O2 Saturation VBG pH VBG pCO2 VBG HCO3 Sodium 134 L Chloride 86 L Carbon Dioxide 39 H BUN 47 H Creatinine 1.70 H Est GFR (CKD-EPI)AfAm Est GFR (CKD-EPI)NonAf BUN/Creatinine Ratio Glucose 199 H POC Glucose (mg/dL) 135 H Calcium AST 16 L Total Protein Albumin 3.4 L 08/05/21 08/05/21 08/05/21 11:48 13:46 14:23 WBC RBC Hgb Hct MCHC ABG pCO2 ABG pO2 ABG HCO3 ABG Total CO2 ABG O2 Saturation VBG pH VBG pCO2 VBG HCO3 Sodium Chloride Carbon Dioxide BUN Creatinine Est GFR (CKD-EPI)AfAm Est GFR (CKD-EPI)NonAf BUN/Creatinine Ratio Glucose POC Glucose (mg/dL) 239 H 170 H 182 H Calcium AST Total Protein Albumin 08/05/21 08/05/21 08/05/21 14:35 16:56 20:21 WBC RBC Hgb Hct MCHC ABG pCO2 ABG pO2 ABG HCO3 ABG Total CO2 ABG O2 Saturation VBG pH 7.45 H VBG pCO2 53 H VBG HCO3 36 H Sodium Chloride Carbon Dioxide BUN Creatinine Est GFR (CKD-EPI)AfAm Est GFR (CKD-EPI)NonAf BUN/Creatinine Ratio Glucose POC Glucose (mg/dL) 149 H 172 H Calcium AST Total Protein Albumin 08/06/21 08/06/2122 06:27 06:27 07:32 WBC 14.36 H RBC 3.64 L Hgb 10.5 L Hct 33.2 L MCHC 31.6 L ABG pCO2 ABG pO2 ABG HCO3 ABG Total CO2 ABG O2 Saturation VBG pH VBG pCO2 VBG HCO3 Sodium Chloride 91 L Carbon Dioxide 34.5 H BUN 43.4 H Creatinine 1.7 H Est GFR (CKD-EPI)AfAm 44.7 L Est GFR (CKD-EPI)NonAf 38.6 L BUN/Creatinine Ratio 25.53 H Glucose 156 H POC Glucose (mg/dL) 160 H Calcium 8.6 L AST 7 L Total Protein 5.8 L Albumin 3.6 L 08/06/21 11:36 WBC RBC Hgb Hct MCHC ABG pCO2 ABG pO2 ABG HCO3 ABG Total CO2 ABG O2 Saturation VBG pH VBG pCO2 VBG HCO3 Sodium Chloride Carbon Dioxide BUN Creatinine Est GFR (CKD-EPI)AfAm Est GFR (CKD-EPI)NonAf BUN/Creatinine Ratio Glucose POC Glucose (mg/dL) 152 H Calcium AST Total Protein Albumin - Diagnostic Findings Chest x-ray: image reviewed Assessment and Plan Assessment: 1 Acute on chronic hypoxemic respiratory failure secondary to acute exacerbation of chronic obstructive pulmonary disease 2 History of severe oxygen dependent chronic obstructive pulmonary disease, Gold stage IV with an FEV1 value 19% of predicted 3 60 year smoking history, quit in January 2021 4 History of atrial fibrillation anticoagulated with Eliquis 5 Hypertension 6 Hyperlipidemia 7 History of obstructive sleep apnea, noncompliant with CPAP 8 Secondary pulmonary hypertension Plan: The patient was seen and evaluated X-ray and labs reviewed Plan for outpatient workup regarding the possible 10 mm pulmonary nodule The patient would not likely tolerate any interventions Continue home Symbicort, Spiriva, albuterol Complete a prednisone taper starting at 40 mg daily for 4 days Follow up with Dr. Ware in 1-2 weeks' I have personally seen and examined the patient, performed the documentation and the assessment and plan as written. Number of minutes spent on the visit: 20.
[2021-08-06 12:37] VITALS: PULSE 68
--- NOTE | 2021-08-06 13:02 | P.DS ---
Providers Date of admission: 08/04/21 17:43 Expected date of discharge: 08/06/21 Attending physician: Flavia Vega MD Consults: 08/05/21 16:20 Consult Physician Routine Consulting Provider: Chris Ware Consult Reason/Comments: Acute on chronic hypercapnic respiratory failure Do you want consulting provider notified?: Yes Primary care physician: [facility] Hospital Course: Discharge Diagnosis: Acute kidney injury on stage III chronic kidney disease, secondary to dehydration resulting from poor oral intake. History of renal carcinoma with right nephrectomy in 2006. Improved with IV hydration and patient to follow-up with repeat BMP with results to go [facility]. Fatigue, loss of appetite, nausea. Likely secondary to increased digoxin level nearly toxic. Digoxin dose decreased in half down to 125 g daily, patient to follow-up with cardiology in 1 week. Acute COPD exacerbation with acute on chronic hypercapnic respiratory failure, discharged home with prednisone taper Obstructive sleep apnea, discussed with patient possibility of getting an alternative mask to optimize use of CPAP, patient [facility]. Atrial fibrillation. Continue daily medication regimen with amiodarone, digoxin, metoprolol, and Eliquis. Digoxin dose was decreased by half secondary to elevated digoxin levels. Hypertension, Monitor vital signs and continue daily medication regimen. Hyperlipidemia. Continue daily medication regimen with rosuvastatin. 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 Patient presented to the emergency department with a chief complaint of abnormal labs. Patient reports that he went to his PCPs office for a checkup secondary to experiencing increased dyspnea with exertion, decreased appetite, and excessive fatigue worsening over the past week. Patient received a phone call at home telling him that his CO2 was elevated and that he should go to the ER for further evaluation. In the emergency department, patient was seen and fully evaluated. Lab findings revealed compensated metabolic alkalosis with pH of 7.45, pCO2 65, pO2 of 207, bicarbonate 45, total CO2 of 47, and O2 saturation of 99.1 with a base excess of 21.2. CBC revealed very mild normocytic normochromic anemia with hemoglobin of 12.9 otherwise unremarkable. Coags unremarkable. CMP revealing non-anion gap metabolic alkalosis with chloride of 89 and bicarb of 39 and acute kidney injury on chronic kidney disease with BUN of 45, creatinine 1.81, and GFR of 36 with baseline creatinine of 1.06. Patient was admitted under our services for acute kidney injury on chronic kidney disease secondary to dehydration resulting from poor oral intake and acute COPD exacerbation with acute on chronic hypercapnic respiratory failure. Patient was started on IV hydration, duo nebs, and steroids. Gait digoxin level was obtained secondary to nausea and loss of appetite. This is elevated at 2.2 nearly toxic. Digoxin was decreased from 225 g daily down to 125 g daily. Patient monitored again overnight. Upon evaluation, patient reports he feels better than he has felt in a long time. Patient reports for the first time he is looking forward to eating breakfast as his appetite has returned. Patient states he feels more energized and much better and denies having any complaints at this time. He was seen and evaluated by pulmonary who is recommending patient continue home Symbicort, Spiriva, and albuterol. Patient doing well at this time and denies experiencing shortness of breath at rest, dizziness, lightheadedness, chest pain or palpitations. Patient medically stable for discharge at this time and being discharged home on a prednisone taper and instructed to resume daily 5 mg of prednisone once taper is completed. Patient to follow-up with repeat BMP in 3 days with results to go to [facility] for follow-up. Patient will also need to follow-up with pulmonology for further evaluation of possible nodule on lung by cardiology for further evaluation as digoxin dose was decreased. Patient medically stable for discharge at this time. Physical exam: Vital signs reviewed and stable. General: Nontoxic, no distress and appears stated age. Derm: Skin warm and dry, normal coloration for ethnicity. Head: Atraumatic, normocephalic and symmetric. Eyes: no lid lag, and anicteric sclera. Patient with a lazy eye and history of left eye detached retina in right eye macular degeneration, legally blind. Mouth: no lip lesions, mucus membranes moist Cardiovascular: regular rate and rhythm with normal S1S2, no murmur, positive posterior tibial pulses bilaterally, and cap refill < 2 seconds. Lungs: Respirations even, regular, and unlabored on room air. Lungs CTA bilaterally, no rhonchi, no rales, no wheezing, and no accessory muscle usage. Abdominal: soft, nontender to palpation, no guarding, no appreciable organomegaly Ext: ROM intact. No gross muscle atrophy, no edema, no contractures Neuro: Speech clear, face symmetrical and CN II-XII grossly intact with no noted focal neuro deficits Psych: Alert and oriented to person, place, time, and situation. Appropriate and pleasant affect. A total of 39 minutes of time were spent preparing this complex discharge summary. I reviewed the documentation as provided by the CHANDLER above, who is the original author of this note. I agree with the documented assessment and plan, with the following changes: none Patient Condition at Discharge: Stable Plan - Discharge Summary New Discharge Prescriptions: New predniSONE See Taper PO DAILY #30 tab Continue Vit C/E/Zn/Coppr/Lutein/Zeaxan [Preservision Areds 2 Softgel] 1 cap PO BID Albuterol Sulfate [Proair Hfa] 2 puff INHALATION RT-Q6H PRN PRN Reason: Shortness Of Breath Escitalopram [Lexapro] 10 mg PO DAILY Apixaban [Eliquis] 5 mg PO BID 30 Days #60 tab Fluticasone Propion/Salmeterol [Fluticasone-Salmeterol 500-50] 1 puff INHALATION RT-BID Famotidine [Pepcid] 20 mg PO DAILY tab Loratadine 10 mg PO DAILY Rosuvastatin [Crestor] 10 mg PO DAILY Amiodarone [Cordarone] 200 mg PO DAILY traZODone HCL [Desyrel] 50 mg PO HS Tiotropium 2.5 Mcg/Puff [Spiriva Respimat 2.5 Mcg] 2 puff INHALATION RT-DAILY Roflumilast [Daliresp] 500 mcg PO DAILY Albuterol Nebulized [Ventolin Nebulized] 2.5 mg INHALATION RT-QID PRN PRN Reason: Shortness Of Breath Potassium Chloride ER [K-Dur 20] 20 meq PO DAILY #30 tab Metoprolol Tartrate [Lopressor] 75 mg PO TID #90 tab Dextran/Hypromellose/Glycerin [Genteal Tears 0.1%-0.2%-0.3%] 1 drop BOTH EYES QID Bumetanide [BUMEX] 2 mg PO BID Ammonium Lactate Cream [Lac-Hydrin 12% Cream] 1 applic TOPICAL BID predniSONE 5 mg PO DAILY #0 Changed Digoxin [Lanoxin] 125 mcg PO DAILY #30 tab Discharge Medication List Vit C/E/Zn/Coppr/Lutein/Zeaxan [Preservision Areds 2 Softgel] 1 cap PO BID 08/03/17 [History] Albuterol Sulfate [Proair Hfa] 2 puff INHALATION RT-Q6H PRN 02/23/19 [History] Escitalopram [Lexapro] 10 mg PO DAILY 11/25/20 [History] Apixaban [Eliquis] 5 mg PO BID 30 Days #60 tab 11/26/20 [Rx] Amiodarone [Cordarone] 200 mg PO DAILY 12/02/20 [History] Albuterol Nebulized [Ventolin Nebulized] 2.5 mg INHALATION RT-QID PRN 01/17/21 [History] Fluticasone Propion/Salmeterol [Fluticasone-Salmeterol 500-50] 1 puff INHALATION RT-BID 01/17/21 [History] Roflumilast [Daliresp] 500 mcg PO DAILY 01/17/21 [History] Tiotropium 2.5 Mcg/Puff [Spiriva Respimat 2.5 Mcg] 2 puff INHALATION RT-DAILY 01/17/21 [History] traZODone HCL [Desyrel] 50 mg PO HS 01/17/21 [History] Famotidine [Pepcid] 20 mg PO DAILY tab 01/26/21 [Rx] Metoprolol Tartrate [Lopressor] 75 mg PO TID #90 tab 01/26/21 [Rx] Potassium Chloride ER [K-Dur 20] 20 meq PO DAILY #30 tab 01/26/21 [Rx] Ammonium Lactate Cream [Lac-Hydrin 12% Cream] 1 applic TOPICAL BID 08/04/21 [History] Bumetanide [BUMEX] 2 mg PO BID 08/04/21 [History] Dextran/Hypromellose/Glycerin [Genteal Tears 0.1%-0.2%-0.3%] 1 drop BOTH EYES QID 08/04/21 [History] Loratadine 10 mg PO DAILY 08/04/21 [History] Rosuvastatin [Crestor] 10 mg PO DAILY 08/04/21 [History] Digoxin [Lanoxin] 125 mcg PO DAILY #30 tab 08/06/21 [Rx] predniSONE 5 mg PO DAILY #0 08/06/21 [Rx] predniSONE See Taper PO DAILY #30 tab 08/06/21 [Rx] Follow up Appointment(s)/Referral(s): Vickie Haro, JITENDRA [REFERRING] - 1-2 days Manfred Rodgers MD [STAFF PHYSICIAN] - 08/24/21 3:00 pm (This appointment will be at the [address] [place] [address].) Chris Ware DO [Doctor of Osteopathic Medicine] - 1 Week (The office was on lunch please call and make follow up appiontment.) Ambulatory/Diagnostic Orders: Basic Metabolic Panel [LAB.AMB] Time Frame: 3 Days, Location: None Selected Activity/Diet/Wound Care/Special Instructions: Activity: As tolerated. Take breaks as needed. Diet: Heart healthy and carb consistent diet. Avoid salts, or foods with hidden salts such as canned or boxed foods and frozen dinners. Extra salt makes your heart work harder and traps the fluid in your body for longer. Special Instructions: Take all of your medications as directed and remember to keep all of your doctor's appointments and follow-up as needed. As we discussed your digoxin levels were very high, near toxic. This was likely the cause of your loss of appetite and nausea experienced over the past week. Your dose has been decreased to half a pill (125 mcg) so you will only take half of a tablet and will need to follow up in the office with your remote sensing technician, Dr. Rodgers as we discussed. You will need to follow up outpatient with pulmonary, Dr. Ware for further evaluation of possible nodule and continued long-term management of COPD. [facility]. Thank you for allowing us to participate in your care, it was truly a pleasure having you for our patient!!! Discharge Disposition: HOME SELF-CARE
[2021-08-07] MEDS ORDERED: DIGOXIN 125 MCG TAB PO SCH (09:00)
== END 2021-08-06 14:47 | disposition home or self-care (01) ==
LOC: EC 14:47 → 6NMEDSUR 17:43 → 5NMEDONC 08-05 00:08
PROVIDERS: ADMIT Internal Medicine; ATTEND Internal Medicine
DX: E87.2 Acidosis (principal); E86.0 Dehydration; J44.9 Chronic obstructive pulmonary disease, unspecified; D63.1 Anemia in chronic kidney disease; E87.3 Alkalosis; J96.12 Chronic respiratory failure with hypercapnia; J96.11 Chronic respiratory failure with hypoxia; I12.9 Hypertensive chronic kidney disease with stage 1 through stage 4 chronic kidney disease, or unspecified chronic kidney disease; N18.30 Chronic kidney disease, stage 3 unspecified; N17.9 Acute kidney failure, unspecified; G47.33 Obstructive sleep apnea (adult) (pediatric); E78.5 Hyperlipidemia, unspecified; H91.90 Unspecified hearing loss, unspecified ear; M19.90 Unspecified osteoarthritis, unspecified site; J43.9 Emphysema, unspecified; Z99.81 Dependence on supplemental oxygen; Z85.528 Personal history of other malignant neoplasm of kidney; Z90.5 Acquired absence of kidney; H35.3210 Exudative age-related macular degeneration, right eye, stage unspecified; H54.8 Legal blindness, as defined in USA; Z98.42 Cataract extraction status, left eye; Z98.41 Cataract extraction status, right eye; Z79.899 Other long term (current) drug therapy; Z85.820 Personal history of malignant melanoma of skin; Z98.890 Other specified postprocedural states; Z80.8 Family history of malignant neoplasm of other organs or systems; Z82.3 Family history of stroke; Z79.01 Long term (current) use of anticoagulants; Z79.52 Long term (current) use of systemic steroids; Z88.8 Allergy status to other drugs, medicaments and biological substances; I48.91 Unspecified atrial fibrillation
CPT/HCPCS: 96376 ×3; 96361 ×2; 96374; 99285; 36415; 94640 ×4; 36600; 94760; 93005; 83880; 80053 ×3; 80162; 82805; 82803; 83605; 83735 ×2; 84484; 85025; 85027 ×2; 85610; 85730; 83036; 84145; 87635; 71046; G0378 ×3; J2930 ×3; J7512

== ENCOUNTER 2021-11-15 08:32 | Inpatient (IN) | payer OTHER, MEDICARE ==
[2021-11-15] MEDS ORDERED: methylPREDNISolone SOD SUCCI 125 MG/2 ML VIAL IV STA (08:50)
[2021-11-15] MEDS ORDERED: IPRATROPIUM-ALBUTEROL 3 ML NEB INHALATION STA (08:50)
--- NOTE | 2021-11-15 08:53 | ED ---
General Adult HPI - General Chief complaint: Shortness of Breath Stated complaint: MANN Time Seen by Provider: 11/15/21 08:39 Source: patient, RN notes reviewed Mode of arrival: ambulatory Limitations: no limitations - History of Present Illness Initial comments: Patient is a pleasant 75-year-old male presenting to the emergency department with difficulty breathing. Symptoms have progressed over the past week. Minimal cough. No fever. Symptoms are similar to previous COPD. Patient did talk to his lung doctor who recommended he come to the emergency department. No leg pain or leg swelling. - Related Data Home Medications Medication Instructions Recorded Confirmed Vit C/E/Zn/Coppr/Lutein/Zeaxan 1 cap PO BID 08/03/17 08/04/21 [Preservision Areds 2 Softgel] Albuterol Sulfate [Proair Hfa] 2 puff INHALATION RT-Q6H PRN 02/23/19 08/04/21 Escitalopram [Lexapro] 10 mg PO DAILY 11/25/20 08/04/21 Amiodarone [Cordarone] 200 mg PO DAILY 12/02/20 08/04/21 Albuterol Nebulized [Ventolin 2.5 mg INHALATION RT-QID PRN 01/17/21 08/04/21 Nebulized] Fluticasone Propion/Salmeterol 1 puff INHALATION RT-BID 01/17/21 08/04/21 [Fluticasone-Salmeterol 500-50] Roflumilast [Daliresp] 500 mcg PO DAILY 01/17/21 08/04/21 Tiotropium 2.5 Mcg/Puff [Spiriva 2 puff INHALATION RT-DAILY 01/17/21 08/04/21 Respimat 2.5 Mcg] traZODone HCL [Desyrel] 50 mg PO HS 01/17/21 08/04/21 Ammonium Lactate Cream [Lac-Hydrin 1 applic TOPICAL BID 08/04/21 08/04/21 12% Cream] Bumetanide [BUMEX] 2 mg PO BID 08/04/21 08/04/21 Dextran/Hypromellose/Glycerin 1 drop BOTH EYES QID 08/04/21 08/04/21 [Genteal Tears 0.1%-0.2%-0.3%] Loratadine 10 mg PO DAILY 08/04/21 08/04/21 Rosuvastatin [Crestor] 10 mg PO DAILY 08/04/21 08/04/21 Previous Rx's Medication Instructions Recorded Apixaban [Eliquis] 5 mg PO BID 30 Days #60 tab 11/26/20 Famotidine [Pepcid] 20 mg PO DAILY tab 01/26/21 Metoprolol Tartrate [Lopressor] 75 mg PO TID #90 tab 01/26/21 Potassium Chloride ER [K-Dur 20] 20 meq PO DAILY #30 tab 01/26/21 Digoxin [Lanoxin] 125 mcg PO DAILY #30 tab 08/06/21 predniSONE 5 mg PO DAILY #0 08/06/21 predniSONE See Taper PO DAILY #30 tab 08/06/21 Allergies Allergy/AdvReac Type Severity Reaction Status Date / Time atorvastatin [From Lipitor] Allergy Per Verified 11/15/21 08:36 [facility] Review of Systems ROS Statement: Those systems with pertinent positive or pertinent negative responses have been documented in the HPI. ROS Other: All systems not noted in ROS Statement are negative. Constitutional: Denies: fever Eyes: Denies: eye pain ENT: Denies: ear pain Respiratory: Reports: as per HPI, dyspnea Cardiovascular: Denies: chest pain Endocrine: Denies: fatigue Gastrointestinal: Denies: abdominal pain Genitourinary: Denies: dysuria Musculoskeletal: Denies: back pain Skin: Denies: rash Neurological: Denies: weakness Past Medical History Past Medical History: Atrial Fibrillation, Cancer, COPD, Eye Disorder, Hearing Disorder / Deafness, Hyperlipidemia, Hypertension, Osteoarthritis (OA) Additional Past Medical History / Comment(s): Emphysema (takes inhalers and uses oxygen at home). Hx Kidney Cancer in 2006, R nephrectomy.q Left eye detached retina. Wet Macular Degeneration right eye. Hx Melanoma on back. Bilateral hearing aid use, legally blind. History of Any Multi-Drug Resistant Organisms: None Reported Past Surgical History: Back Surgery Additional Past Surgical History / Comment(s): Right kidney removed. Left eye surgery X3 for detacted retina. Bilateral cataract surgery. Mohs surgery thoracic spine for melanoma. Past Anesthesia/Blood Transfusion Reactions: Previous Problems w/ Anesthesia Additional Past Anesthesia/Blood Transfusion Reaction / Comment(s): States low heart rate, light-headed and low BP X1 with anesthesia. "Got broke vocal cord and could not talk for 2 months after anesthesia one time." Past Psychological History: No Psychological Hx Reported Smoking Status: Former smoker Past Alcohol Use History: None Reported Past Drug Use History: None Reported - Past Family History Mother Family Medical History: Cancer Additional Family Medical History / Comment(s): Brain Cancer. Father Family Medical History: CVA/TIA General Exam Limitations: no limitations General appearance: alert, in no apparent distress Head exam: Present: normocephalic Eye exam: Present: normal appearance Neck exam: Present: normal inspection Respiratory exam: Present: decreased breath sounds Cardiovascular Exam: Present: regular rate, normal rhythm GI/Abdominal exam: Present: soft. Absent: tenderness Extremities exam: Present: normal inspection. Absent: pedal edema, joint swelling, calf tenderness Neurological exam: Present: alert Psychiatric exam: Present: normal affect, normal mood Skin exam: Present: normal color Course Vital Signs 11/15/21 11/15/21 11/15/21 08:34 09:50 09:57 Temperature 98 F Pulse Rate 67 60 Respiratory 26 H 20 Rate Blood Pressure 129/63 O2 Sat by Pulse 78 L Oximetry 11/15/21 11/15/21 11/15/21 10:06 10:50 11:01 Temperature Pulse Rate 60 Respiratory 18 Rate Blood Pressure O2 Sat by Pulse 88 L 95 Oximetry EKG Findings - EKG Comments: EKG Findings:: Sinus bradycardia 58. ID 141. QRS 141. QT 440. QTc 437. Normal axis. Right bundle branch block. No acute ST change. Medical Decision Making - Medical Decision Making Patient reevaluated and somewhat better. Patient ambulated with increase dyspnea and pulse ox dropping to 85% despite 4 L nasal cannula. Case discussed with Dr. Agrawal, who will admit covering Dr. Bharati Harvey. Patient and family updated - Lab Data Result diagrams: 11/15/21 09:04 11/15/21 09:04 Lab Results 11/15/21 11/15/21 11/15/21 Range/Units 09:04 09:04 09:04 WBC 4.2 (3.8-10.6) k/uL RBC 3.60 L (4.30-5.90) m/uL Hgb 11.3 L (13.0-17.5) gm/dL Hct 34.9 L (39.0-53.0) % MCV 97.1 (80.0-100.0) fL MCH 31.3 (25.0-35.0) pg MCHC 32.2 (31.0-37.0) g/dL RDW 14.3 (11.5-15.5) % Plt Count 187 (150-450) k/uL MPV 7.4 Neutrophils % (Manual) 55 % Lymphocytes % (Manual) 23 % Monocytes % (Manual) 14 % Eosinophils % (Manual) 7 % Basophils % (Manual) 1 % Neutrophils # (Manual) 2.31 (1.3-7.7) k/uL Lymphocytes # (Manual) 0.97 L (1.0-4.8) k/uL Monocytes # (Manual) 0.59 (0-1.0) k/uL Eosinophils # (Manual) 0.29 (0-0.7) k/uL Basophils # (Manual) 0.04 (0-0.2) k/uL Nucleated RBCs 0 (0-0) /100 WBC Manual Slide Review Performed Hypochromasia Slight PT 10.5 (9.0-12.0) sec INR 1.0 (<1.2) APTT 25.4 (22.0-30.0) sec Sodium 140 (137-145) mmol/L Potassium 4.4 (3.5-5.1) mmol/L Chloride 88 L (98-107) mmol/L Carbon Dioxide 44 H* (22-30) mmol/L Anion Gap 8 mmol/L BUN 36 H (9-20) mg/dL Creatinine 1.62 H (0.66-1.25) mg/dL Est GFR (CKD-EPI)AfAm 47 (>60 ml/min/1.73 sqM) Est GFR (CKD-EPI)NonAf 41 (>60 ml/min/1.73 sqM) Glucose 102 H (74-99) mg/dL Plasma Lactic Acid Fabiano (0.7-2.0) mmol/L Calcium 8.4 (8.4-10.2) mg/dL Total Bilirubin 0.4 (0.2-1.3) mg/dL AST 25 (17-59) U/L ALT 16 (4-49) U/L Alkaline Phosphatase 103 (38-126) U/L NT-Pro-B Natriuret Pep pg/mL Total Protein 6.8 (6.3-8.2) g/dL Albumin 3.8 (3.5-5.0) g/dL Coronavirus (PCR) (Not Detectd) Influenza Type A RNA (Not Detectd) Influenza Type B (PCR) (Not Detectd) 11/15/21 11/15/21 11/15/21 Range/Units 09:04 09:04 09:04 WBC (3.8-10.6) k/uL RBC (4.30-5.90) m/uL Hgb (13.0-17.5) gm/dL Hct (39.0-53.0) % MCV (80.0-100.0) fL MCH (25.0-35.0) pg MCHC (31.0-37.0) g/dL RDW (11.5-15.5) % Plt Count (150-450) k/uL MPV Neutrophils % (Manual) % Lymphocytes % (Manual) % Monocytes % (Manual) % Eosinophils % (Manual) % Basophils % (Manual) % Neutrophils # (Manual) (1.3-7.7) k/uL Lymphocytes # (Manual) (1.0-4.8) k/uL Monocytes # (Manual) (0-1.0) k/uL Eosinophils # (Manual) (0-0.7) k/uL Basophils # (Manual) (0-0.2) k/uL Nucleated RBCs (0-0) /100 WBC Manual Slide Review Hypochromasia PT (9.0-12.0) sec INR (<1.2) APTT (22.0-30.0) sec Sodium (137-145) mmol/L Potassium (3.5-5.1) mmol/L Chloride (98-107) mmol/L Carbon Dioxide (22-30) mmol/L Anion Gap mmol/L BUN (9-20) mg/dL Creatinine (0.66-1.25) mg/dL Est GFR (CKD-EPI)AfAm (>60 ml/min/1.73 sqM) Est GFR (CKD-EPI)NonAf (>60 ml/min/1.73 sqM) Glucose (74-99) mg/dL Plasma Lactic Acid Fabiano 0.9 (0.7-2.0) mmol/L Calcium (8.4-10.2) mg/dL Total Bilirubin (0.2-1.3) mg/dL AST (17-59) U/L ALT (4-49) U/L Alkaline Phosphatase (38-126) U/L NT-Pro-B Natriuret Pep 375 pg/mL Total Protein (6.3-8.2) g/dL Albumin (3.5-5.0) g/dL Coronavirus (PCR) Not Detected (Not Detectd) Influenza Type A RNA (Not Detectd) Influenza Type B (PCR) (Not Detectd) 11/15/21 Range/Units 09:04 WBC (3.8-10.6) k/uL RBC (4.30-5.90) m/uL Hgb (13.0-17.5) gm/dL Hct (39.0-53.0) % MCV (80.0-100.0) fL MCH (25.0-35.0) pg MCHC (31.0-37.0) g/dL RDW (11.5-15.5) % Plt Count (150-450) k/uL MPV Neutrophils % (Manual) % Lymphocytes % (Manual) % Monocytes % (Manual) % Eosinophils % (Manual) % Basophils % (Manual) % Neutrophils # (Manual) (1.3-7.7) k/uL Lymphocytes # (Manual) (1.0-4.8) k/uL Monocytes # (Manual) (0-1.0) k/uL Eosinophils # (Manual) (0-0.7) k/uL Basophils # (Manual) (0-0.2) k/uL Nucleated RBCs (0-0) /100 WBC Manual Slide Review Hypochromasia PT (9.0-12.0) sec INR (<1.2) APTT (22.0-30.0) sec Sodium (137-145) mmol/L Potassium (3.5-5.1) mmol/L Chloride (98-107) mmol/L Carbon Dioxide (22-30) mmol/L Anion Gap mmol/L BUN (9-20) mg/dL Creatinine (0.66-1.25) mg/dL Est GFR (CKD-EPI)AfAm (>60 ml/min/1.73 sqM) Est GFR (CKD-EPI)NonAf (>60 ml/min/1.73 sqM) Glucose (74-99) mg/dL Plasma Lactic Acid Fabiano (0.7-2.0) mmol/L Calcium (8.4-10.2) mg/dL Total Bilirubin (0.2-1.3) mg/dL AST (17-59) U/L ALT (4-49) U/L Alkaline Phosphatase (38-126) U/L NT-Pro-B Natriuret Pep pg/mL Total Protein (6.3-8.2) g/dL Albumin (3.5-5.0) g/dL Coronavirus (PCR) (Not Detectd) Influenza Type A RNA Not Detected (Not Detectd) Influenza Type B (PCR) Not Detected (Not Detectd) - Radiology Data Radiology results: image reviewed (Chest x-ray shows cardiomegaly. Tiny bilateral effusions.) Disposition Clinical Impression: COPD exacerbation Disposition: ADMITTED IP TO THIS HOSP Is patient prescribed a controlled substance at d/c from ED?: No Referrals: Sinan Kurtz DO [Primary Care Provider] - 1-2 days Time of Disposition: 11:20
[2021-11-15 09:25] LABS: Partial Thromboplastin Time 25.4 sec (22.0-30.0); Prothrombin Time 10.5 sec (9.0-12.0)
[2021-11-15 09:29] LABS: Albumin 3.8 g/dL (3.5-5.0); Calcium 8.4 mg/dL (8.4-10.2); Potassium 4.4 mmol/L (3.5-5.1); Total Bilirubin 0.4 mg/dL (0.2-1.3); Total Protein 6.8 g/dL (6.3-8.2)
[2021-11-15 09:40] LABS: HCT 34.9 % (39.0-53.0); HGB 11.3 gm/dL (13.0-17.5); Hypochromasia Slight; MCH 31.3 pg (25.0-35.0); MCHC 32.2 g/dL (31.0-37.0); MCV 97.1 fL (80.0-100.0); Mean Platelet Volume 7.4; Platelet Count 187 k/uL (150-450); RDW 14.3 % (11.5-15.5); WBC 4.2 k/uL (3.8-10.6)
--- NOTE | 2021-11-15 09:44 | XR ---
EXAMINATION TYPE: XR chest 2V DATE OF EXAM: 11/15/2021 COMPARISON: Chest x-ray August 04, 2021 HISTORY: Difficulty in breathing. TECHNIQUE: Frontal and lateral views of the chest are obtained. FINDINGS: There is new right basilar opacity.. The cardiac silhouette size is more prominent and mi ldly enlarged. Tiny bilateral pleural effusions on the lateral view are now present. The osseous st ructures are intact. IMPRESSION: New mild cardiomegaly and tiny bilateral pleural effusions. Correlate for CHF exacerbati on.
[2021-11-15 10:24] LABS: Basophils # (M) 0.04 k/uL (0-0.2); Eosinophils # (M) 0.29 k/uL (0-0.7); Lymphocytes # (M) 0.97 k/uL (1.0-4.8); Monocytes # (M) 0.59 k/uL (0-1.0); Neutrophils # (M) 2.31 k/uL (1.3-7.7); Neutrophils % (M) 55 %; Nucleated Red Blood Cells 0 /100 WBC (0-0); Total Cells Counted 100
[2021-11-15] MEDS ORDERED: IPRATROPIUM-ALBUTEROL 3 ML NEB INHALATION PRN (11:20)
[2021-11-15] MEDS: IPRATROPIUM-ALBUTEROL 3 ML NEB INHALATION SCH ×3 (11:38→19:43)
[2021-11-15] MEDS ORDERED: NALOXONE 0.4 MG/ML 1 ML VIAL IV PRN ×2 (13:25→13:26)
--- NOTE | 2021-11-15 13:36 | P.HPIM ---
History of Present Illness H&P Date: 11/15/21 Chief Complaint: sob 75-year-old male with past medical history significant for atrial fibrillation, advanced COPD on 4-5L of O2 at baseline follows with Dr. Ware, legally blind, hyperlipidemia, hypertension, osteoarthritis presenting to the emergency department with difficulty breathing maikol on exertion. Symptoms have progressed over the past week. Minimal cough. No fever. Symptoms are similar to previous COPD. Patient did talk to his lung doctor who recommended he come to the emergency department. No leg pain or leg swelling. He also has been having intermittent abdominal pain associated with urinary frequency, denied fevers or chills. No nausea or vomiting.. He was ambulated in the emergency department when his baseline oxygen and his O2 saturation dropped to 77%. Chest x-ray showed new mild cardiomegaly with tiny bilateral pleural effusion. ProBNP was 375. Creatinine 1.65, chronic. EKG okay. He was subsequently admitted for further evaluation. Review of Systems Complete review of system performed, pertinent positives per HPI, otherwise negative Past Medical History Past Medical History: Atrial Fibrillation, Cancer, COPD, Eye Disorder, Hearing Disorder / Deafness, Hyperlipidemia, Hypertension, Osteoarthritis (OA) Additional Past Medical History / Comment(s): Emphysema (takes inhalers and uses oxygen at home). Hx Kidney Cancer in 2006, R nephrectomy.q Left eye detached retina. Wet Macular Degeneration right eye. Hx Melanoma on back. Bilateral hearing aid use, legally blind. History of Any Multi-Drug Resistant Organisms: None Reported Past Surgical History: Back Surgery Additional Past Surgical History / Comment(s): Right kidney removed. Left eye surgery X3 for detacted retina. Bilateral cataract surgery. Mohs surgery thoracic spine for melanoma. Past Anesthesia/Blood Transfusion Reactions: Previous Problems w/ Anesthesia Additional Past Anesthesia/Blood Transfusion Reaction / Comment(s): States low heart rate, light-headed and low BP X1 with anesthesia. "Got broke vocal cord and could not talk for 2 months after anesthesia one time." Past Psychological History: No Psychological Hx Reported Smoking Status: Former smoker Past Alcohol Use History: None Reported Past Drug Use History: None Reported - Past Family History Mother Family Medical History: Cancer Additional Family Medical History / Comment(s): Brain Cancer. Father Family Medical History: CVA/TIA Medications and Allergies Home Medications Medication Instructions Recorded Confirmed Type Vit C/E/Zn/Coppr/Lutein/Zeaxan 1 cap PO BID 08/03/17 11/15/21 History [Preservision Areds 2 Softgel] Albuterol Sulfate [Proair Hfa] 2 puff INHALATION RT-Q6H PRN 02/23/19 11/15/21 History Escitalopram [Lexapro] 10 mg PO DAILY 11/25/20 11/15/21 History Apixaban [Eliquis] 5 mg PO BID 30 Days #60 tab 11/26/20 11/15/21 Rx Amiodarone [Cordarone] 200 mg PO DAILY 12/02/20 11/15/21 History Albuterol Nebulized [Ventolin 2.5 mg INHALATION RT-TID PRN 01/17/21 11/15/21 History Nebulized] Roflumilast [Daliresp] 500 mcg PO DAILY 01/17/21 11/15/21 History Tiotropium 2.5 Mcg/Puff [Spiriva 2 puff INHALATION RT-DAILY 01/17/21 11/15/21 History Respimat 2.5 Mcg] Potassium Chloride ER [K-Dur 20] 20 meq PO DAILY #30 tab 01/26/21 11/15/21 Rx Ammonium Lactate Cream [Lac-Hydrin 1 applic TOPICAL BID 08/04/21 11/15/21 History 12% Cream] Bumetanide [BUMEX] 2 mg PO BID 08/04/21 11/15/21 History Dextran/Hypromellose/Glycerin 1 drop BOTH EYES QID 08/04/21 11/15/21 History [Genteal Tears 0.1%-0.2%-0.3%] Loratadine 10 mg PO DAILY 08/04/21 11/15/21 History Rosuvastatin [Crestor] 10 mg PO DAILY 08/04/21 11/15/21 History Digoxin [Lanoxin] 125 mcg PO DAILY #30 tab 08/06/21 11/15/21 Rx predniSONE 5 mg PO DAILY #0 08/06/21 11/15/21 Rx Famotidine [Pepcid] 20 mg PO BID 11/15/21 11/15/21 History Fluticasone Propion/Salmeterol 1 puff INHALATION RT-BID 11/15/21 11/15/21 History [Wixela 500-50 Inhub] Gabapentin [Neurontin] 400 mg PO BID 11/15/21 11/15/21 History Metoprolol Tartrate [Lopressor] 12.5 mg PO BID 11/15/21 11/15/21 History Allergies Allergy/AdvReac Type Severity Reaction Status Date / Time atorvastatin [From Lipitor] Allergy Per Verified 11/15/21 12:10 [facility] Physical Exam Vitals: Vital Signs Temp Pulse Resp BP Pulse Ox 11/15/21 11:48 70 11/15/21 11:38 68 93 L 11/15/21 11:01 18 95 11/15/21 10:50 88 L 11/15/21 10:06 60 11/15/21 09:57 60 11/15/21 09:50 20 11/15/21 08:34 98 F 67 26 H 129/63 78 L Intake and Output 11/14/21 11/15/21 11/15/21 22:59 06:59 14:59 Other: Weight 113.398 kg Constitutional: No acute distress, conversant, pleasant Eyes:Anicteric sclerae, moist conjunctiva, no lid-lag, PERRLA, ENMT: Oropharynx clear, no erythema, exudates Neck: Supple, FROM, no masses, or JVD, No carotid bruits, No thyromegaly Lungs: Severely diminished breath sounds bilaterally, Clear to percussion, Normal respiratory effort, no accessory muscle use Cardiovascular: Heart regular in rate and rhythm, No murmurs, gallops, or rubs, No peripheral edema Abdominal: Soft, Nontender, no guarding, rebound or rigidity, Normoactive bowel sounds, No hepatomegaly, No splenomegaly, No palpable mass Skin: Normal temperature, tone, texture, turgor, no induration, No subcutaneous nodules, No rash, lesions, No ulcers Extremities: No digital cyanosis, No clubbing, Pedal pulses intact and symmetrical, Radial pulses intact and symmetrical, No calf tenderness Psychiatric: Alert and oriented to person, place and time, appropriate affect, intact judgement Neuro: Muscles Strength 5/5 in all 4 extremities, Sensation to light touch grossly present throughout, Cranial nerves II-XII grossly intact, no focal sensory deficits Results CBC & Chem 7: 11/15/21 09:04 11/15/21 09:04 Labs: Abnormal Lab Results - Last 24 Hours (Table) 11/15/21 11/15/21 Range/Units 09:04 09:04 RBC 3.60 L (4.30-5.90) m/uL Hgb 11.3 L (13.0-17.5) gm/dL Hct 34.9 L (39.0-53.0) % Lymphocytes # (Manual) 0.97 L (1.0-4.8) k/uL Chloride 88 L (98-107) mmol/L Carbon Dioxide 44 H* (22-30) mmol/L BUN 36 H (9-20) mg/dL Creatinine 1.62 H (0.66-1.25) mg/dL Glucose 102 H (74-99) mg/dL Assessment and Plan Plan: Acute on chronic hypoxemic respiratory failure Acute COPD exacerbation IV steroids Bronchodilators Check pro calcitonin Consult pulmonary Supplemental oxygen Monitor O2 sats Urinary frequency Check urinalysis with culture if indicated Atrial Fibrillation, paroxysmal, Hyperlipidemia, Hypertension, Osteoarthritis (OA) All chronic Resume medications Admit to inpatient, expected length of stay more than 2 midnights
[2021-11-15] MEDS: methylPREDNISolone SOD SUCCI 125 MG/2 ML VIAL IV SCH ×2 (14:26→20:23)
[2021-11-15] MEDS ORDERED: IPRATROPIUM 0.5 MG/2.5 ML NEBU INHALATION SCH (16:00)
[2021-11-15] MEDS ORDERED: ACETAMINOPHEN TAB 325 MG TAB PO PRN (16:33)
[2021-11-15 17:11] LABS: Appearance,Urine Clear (Clear); Bilirubin,Urine Negative (Negative); Blood,Urine Negative (Negative); Color,Urine Yellow; Glucose,Urine (UA) Negative (Negative); Ketones,Urine Negative (Negative); Leukocyte Esterase,Urine Negative (Negative); Nitrite,Urine Negative (Negative); Protein,Urine Negative (Negative); Specific Gravity,Urine 1.014 (1.001-1.035); Urobilinogen,Urine <2.0 mg/dL (<2.0)
[2021-11-15] MEDS: ARTIFICIAL TEARS-HYPROMELLOSE DROPS 15 ML BTL BOTH EYES SCH ×2 (17:20→20:24)
[2021-11-15] MEDS: SYMBICORT 160-4.5 MCG INHALER INHALATION SCH (19:43)
[2021-11-15] MEDS: APIXABAN 5 MG TAB PO SCH (20:23)
[2021-11-15] MEDS: GABAPENTIN 400 MG CAP PO SCH (20:24)
[2021-11-15] MEDS: FAMOTIDINE 20 MG TAB PO SCH (20:24)
[2021-11-15] MEDS: MELATONIN 5 MG TABLET PO SCH (20:24)
[2021-11-15] MEDS: BUMETANIDE 1 MG TAB PO SCH (20:24)
[2021-11-15] MEDS: METOPROLOL TARTRATE 12.5 MG TAB PO SCH (20:24)
[2021-11-16] MEDS: methylPREDNISolone SOD SUCCI 125 MG/2 ML VIAL IV SCH ×4 (02:54→21:55)
[2021-11-16] MEDS: SYMBICORT 160-4.5 MCG INHALER INHALATION SCH ×2 (08:13→20:35)
[2021-11-16] MEDS: IPRATROPIUM-ALBUTEROL 3 ML NEB INHALATION SCH ×4 (08:13→20:35)
[2021-11-16] MEDS: FAMOTIDINE 20 MG TAB PO SCH (08:52)
[2021-11-16] MEDS: POTASSIUM CHLORIDE ER 20 MEQ TAB.ER PO SCH (08:52)
[2021-11-16] MEDS: METOPROLOL TARTRATE 12.5 MG TAB PO SCH ×2 (08:52→21:50)
[2021-11-16] MEDS: ESCITALOPRAM 10 MG TAB PO SCH (08:52)
[2021-11-16] MEDS: GABAPENTIN 400 MG CAP PO SCH ×2 (08:52→21:50)
[2021-11-16] MEDS: APIXABAN 5 MG TAB PO SCH ×2 (08:52→21:50)
[2021-11-16] MEDS: AMIODARONE 200 MG TAB PO SCH (08:52)
[2021-11-16] MEDS: LORATADINE 10 MG TAB PO SCH (08:52)
[2021-11-16] MEDS: BUMETANIDE 1 MG TAB PO SCH ×2 (08:52→21:50)
[2021-11-16] MEDS: ARTIFICIAL TEARS-HYPROMELLOSE DROPS 15 ML BTL BOTH EYES SCH ×4 (08:53→22:15)
[2021-11-16] MEDS: PATIENT'S OWN (Rosuvastatin 20 MG Tablet) PO SCH (08:54)
[2021-11-16] MEDS: ROFLUMILAST 500 MCG PO SCH (08:54)
[2021-11-16] MEDS ORDERED: DIGOXIN 250 MCG TAB PO SCH (09:00)
[2021-11-16 09:13] LABS: Basophils # (A) 0.01 X 10*3/uL (0.00-0.10); Basophils % (A) 0.1 %; Eosinophils # (A) 0 X 10*3/uL (0.04-0.35); Eosinophils % (A) 0 %; HCT 33.4 % (39.6-50.0); HGB 9.9 g/dL (13.0-17.0); Immature Grans, Automated 0.4 %; Lymphocytes # (A) 0.46 X 10*3/uL (0.90-5.00); Lymphocytes % (A) 6.4 %; MCH 28.9 pg (27.0-32.0); MCHC 29.6 g/dL (32.0-37.0); MCV 97.4 fL (80.0-97.0); Mean Platelet Volume 9.5 fL (9.5-12.2); Monocytes # (A) 0.11 X 10*3/uL (0.20-1.00); Monocytes % (A) 1.5 %; NRBC Per 100 WBC 0 /100 WBCS (0.0-0.0); Neutrophils # (A) 6.59 X 10*3/uL (1.80-7.70); Neutrophils % (A) 91.6 %; Platelet Count 176 X 10*3/uL (140-440); RBC 3.43 X 10*6/uL (4.40-5.60); RDW 13.7 % (11.5-14.5)
[2021-11-16 09:36] LABS: Albumin/Globulin Ratio 1.74 (1.60-3.17); Anion Gap 9.4 mmol/L (10.00-18.00); BUN/Creat Ratio 22.8 Ratio (12.00-20.00); Blood Urea Nitrogen 34.2 mg/dL (9.0-27.0); Calcium 8.8 mg/dL (8.7-10.3); Carbon Dioxide 38.6 mmol/L (20.0-27.5); Globulin 2.3 g/dL (1.6-3.3); Non-African American GFR(CKD) 44.9 (60.0-200.0); Potassium 4.7 mmol/L (3.5-5.5); Total Bilirubin 0.2 mg/dL (0.30-1.20); Total Protein 6.3 g/dL (6.2-8.2)
[2021-11-16 09:49] LABS: ABG Base Excess 15.6 mmol/L; ABG Oxygen Saturation 89.4 % (94-97); ABG PCO2 60 mmHg (35-45); ABG PH 7.43 (7.35-7.45); ABG TCO2 42 mmol/L (19-24); Allen Test Performed? Yes
[2021-11-16 09:52] LABS: ABG HCO3 40 mmol/L (21-25); ABG PO2 54 mmHg (83-108)
[2021-11-16] MEDS: DOXYCYCLINE 100 MG CAP PO SCH ×2 (11:33→21:50)
--- NOTE | 2021-11-16 11:33 | P.CNPUL ---
History of Present Illness Consult date: 11/16/21 Requesting physician: Emma Donnelly Reason for consult: dyspnea, COPD, hypoxemia, pulmonary hypertension, abnormal CXR/CT, obstructive sleep apnea Chief complaint: Shortness of breath. History of present illness: Pulmonary/critical care consultation dated 11/16/2021. 75-year-old male with history of very severe COPD, who presents to the emergency department on November 15, complaining of shortness of breath. He apparently called our office on Tuesday, stating that his saturations were down into the low 80s and high 70s. We told him to go to the emergency room. He finally made it there on November 15, yesterday. The patient does have a bit of a cough. Is mostly nonproductive. No wheezing. No fever or chills. He hasn't been feeling well for about a week or so. The patient is oxygen dependent, with chronic hypoxemic respiratory failure. Currently, he's on 8 L, with a saturation of 93%. He has a history of atrial fibrillation, COPD, decreased hearing, hyperlipidemia, hypertension, kidney cancer, status post right nephrectomy, detached retina, macular degeneration, and melanoma. He was a heavy smoker in the past. White count 7.2, hemoglobin 9.9, hematocrit 33.4, 176,000. Blood gases show pO2 of 54, pCO2 of 60, and a pH is 7.43. That was on 4 L. Saturations are 89.4%. Sodium 138, potassium 4.7, chlorides 90, CO2 39, anion gap 9, BUN 34, creatinine 1.5. Chest x-rays consistent with mild fluid overload. Review of Systems REVIEW OF SYSTEMS: CONSTITUTIONAL: [Negative.] NEUROLOGIC: [ Negative.] HEENT: [ Negative.] CARDIAC: [Negative.] PULMONARY: Shortness of breath, nonproductive cough, and low saturations. GI: [Negative.] : [Negative.] RHEUMATOLOGIC: [ Negative.] IMMUNOLOGIC: [ Negative.] ENDOCRINE: [Negative. ] DERMATOLOGIC: [Negative.] Past Medical History Past Medical History: Atrial Fibrillation, Cancer, COPD, Eye Disorder, Hearing Disorder / Deafness, Hyperlipidemia, Hypertension, Osteoarthritis (OA) Additional Past Medical History / Comment(s): Emphysema (takes inhalers and uses oxygen at home). Hx Kidney Cancer in 2006, R nephrectomy.q Left eye detached retina. Wet Macular Degeneration right eye. Hx Melanoma on back. Bilateral hearing aid use, legally blind. History of Any Multi-Drug Resistant Organisms: None Reported Past Surgical History: Back Surgery Additional Past Surgical History / Comment(s): Right kidney removed. Left eye surgery X3 for detacted retina. Bilateral cataract surgery. Mohs surgery thoracic spine for melanoma. Past Anesthesia/Blood Transfusion Reactions: Previous Problems w/ Anesthesia Additional Past Anesthesia/Blood Transfusion Reaction / Comment(s): States low heart rate, light-headed and low BP X1 with anesthesia. "Got broke vocal cord and could not talk for 2 months after anesthesia one time." Past Psychological History: No Psychological Hx Reported Smoking Status: Former smoker Past Alcohol Use History: None Reported Additional Past Alcohol Use History / Comment(s): States that he drinks occasionally Past Drug Use History: None Reported Additional Drug Use History / Comment(s): Quit smoking 12/27 - Past Family History Mother Family Medical History: Cancer Additional Family Medical History / Comment(s): Brain Cancer. Father Family Medical History: CVA/TIA Medications and Allergies Home Medications Medication Instructions Recorded Confirmed Type Vit C/E/Zn/Coppr/Lutein/Zeaxan 1 cap PO BID 08/03/17 11/15/21 History [Preservision Areds 2 Softgel] Albuterol Sulfate [Proair Hfa] 2 puff INHALATION RT-Q6H PRN 02/23/19 11/15/21 History Escitalopram [Lexapro] 10 mg PO DAILY 11/25/20 11/15/21 History Apixaban [Eliquis] 5 mg PO BID 30 Days #60 tab 11/26/20 11/15/21 Rx Amiodarone [Cordarone] 200 mg PO DAILY 12/02/20 11/15/21 History Albuterol Nebulized [Ventolin 2.5 mg INHALATION RT-TID PRN 01/17/21 11/15/21 History Nebulized] Roflumilast [Daliresp] 500 mcg PO DAILY 01/17/21 11/15/21 History Tiotropium 2.5 Mcg/Puff [Spiriva 2 puff INHALATION RT-DAILY 01/17/21 11/15/21 History Respimat 2.5 Mcg] Potassium Chloride ER [K-Dur 20] 20 meq PO DAILY #30 tab 01/26/21 11/15/21 Rx Ammonium Lactate Cream [Lac-Hydrin 1 applic TOPICAL BID 08/04/21 11/15/21 History 12% Cream] Bumetanide [BUMEX] 2 mg PO BID 08/04/21 11/15/21 History Dextran/Hypromellose/Glycerin 1 drop BOTH EYES QID 08/04/21 11/15/21 History [Genteal Tears 0.1%-0.2%-0.3%] Loratadine 10 mg PO DAILY 08/04/21 11/15/21 History Rosuvastatin [Crestor] 10 mg PO DAILY 08/04/21 11/15/21 History Digoxin [Lanoxin] 125 mcg PO DAILY #30 tab 08/06/21 11/15/21 Rx predniSONE 5 mg PO DAILY #0 08/06/21 11/15/21 Rx Ammonium Lactate Cream [Lac-Hydrin 1 applic TOPICAL BID 11/15/21 11/15/21 History 12% Cream] Digoxin [Lanoxin] 125 mcg PO DAILY 11/15/21 11/15/21 History Famotidine [Pepcid] 20 mg PO BID 11/15/21 11/15/21 History Fluticasone Propion/Salmeterol 1 puff INHALATION RT-BID 11/15/21 11/15/21 History [Wixela 500-50 Inhub] Gabapentin [Neurontin] 400 mg PO BID 11/15/21 11/15/21 History Loratadine [Claritin] 10 mg PO DAILY 11/15/21 11/15/21 History Metoprolol Tartrate [Lopressor] 12.5 mg PO BID 11/15/21 11/15/21 History Potassium Chloride ER [K-Dur 20] 20 meq PO BID 11/15/21 11/15/21 History Rosuvastatin [Crestor] 10 mg PO DAILY 11/15/21 11/15/21 History traZODone HCL [Desyrel] 50 mg PO HS 11/15/21 11/15/21 History Allergies Allergy/AdvReac Type Severity Reaction Status Date / Time atorvastatin [From Lipitor] Allergy Per Verified 11/15/21 12:[address] [facility] Physical Exam Osteopathic Statement: *. No significant issues noted on an osteopathic structural exam other than those noted in the History and Physical/Consult. Vitals: Vital Signs Temp Pulse Pulse Resp BP BP Pulse Ox 11/16/21 09:05 18 93 L 11/16/21 08:28 83 95 11/16/21 08:16 86 11/16/21 08:00 97.6 F 72 16 125/51 93 L 11/16/21 00:36 97.8 F 71 16 114/61 92 L 11/15/21 20:04 76 11/15/21 19:54 98.1 F 75 16 114/65 95 11/15/21 19:43 72 11/15/21 15:39 66 11/15/21 15:27 66 11/15/21 13:56 97.6 F 70 20 112/60 91 L 11/15/21 13:10 97.6 F 69 20 112/60 91 L 11/15/21 13:07 69 20 121/65 93 L 11/15/21 11:48 70 11/15/21 11:38 68 93 L Intake and Output 11/15/21 11/16/21 11/16/21 22:59 06:59 14:59 Intake Total 1380 Output Total 950 300 400 Balance 430 -300 -400 Intake: Oral 1380 Output: Urine 950 300 400 Other: Voiding Method Urinal No acute distress, oriented 3. Currently, the patient's on 8 L high flow nasal cannula. Turn down the 4 L, so that we can obtain an arterial blood gas. No conversational dyspnea, or use of accessory muscles. HEENT examination is grossly unremarkable. Neck supple. Full range of motion. No adenopathy thyromegaly or neck vein distention. Cardiovascular examination reveals regular rhythm rate. S1-S2 normal. No S3 or S4. No discernible murmur noted. Heart sounds are distant. Heart rate 83 bpm. Lungs reveal scattered rhonchi, crackles, and wheezes. Breath sounds are diminished throughout. Her sounds are equal bilaterally. Abdomen soft with bowel sounds. No masses or tenderness. Extremities are intact. No cyanosis or clubbing. Mild edema appreciated. Skin is without rash or lesion. Neurologic examination is brief but nonfocal. Results - Laboratory Findings CBC and BMP: 11/16/21 05:34 11/16/21 05:34 ABG ABG pH 7.43 (7.35-7.45) 11/16/21 09:38 ABG pCO2 60 mmHg (35-45) H 11/16/21 09:38 ABG pO2 54 mmHg (83-108) L* 11/16/21 09:38 ABG O2 Saturation 89.4 % (94-97) L 11/16/21 09:38 PT/INR, D-dimer PT 10.5 sec (9.0-12.0) 11/15/21 09:04 INR 1.0 (<1.2) 11/15/21 09:04 Abnormal lab findings: Abnormal Labs 11/15/21 11/15/21 11/15/21 09:04 09:04 09:04 RBC 3.60 L Hgb 11.3 L Hct 34.9 L MCV MCHC Lymphocytes # Lymphocytes # (Manual) 0.97 L Monocytes # Eosinophils # ABG pCO2 ABG pO2 ABG HCO3 ABG Total CO2 ABG O2 Saturation Chloride 88 L Carbon Dioxide 44 H* Anion Gap BUN 36 H Creatinine 1.62 H Est GFR (CKD-EPI)AfAm Est GFR (CKD-EPI)NonAf BUN/Creatinine Ratio Glucose 102 H Total Bilirubin Procalcitonin 0.23 H 11/16/21 11/16/21 11/16/21 05:34 05:34 09:38 RBC 3.43 L Hgb 9.9 L Hct 33.4 L MCV 97.4 H MCHC 29.6 L Lymphocytes # 0.46 L Lymphocytes # (Manual) Monocytes # 0.11 L Eosinophils # 0 L ABG pCO2 60 H ABG pO2 54 L* ABG HCO3 40 H* ABG Total CO2 42 H ABG O2 Saturation 89.4 L Chloride 90 L Carbon Dioxide 38.6 H Anion Gap 9.40 L BUN 34.2 H Creatinine Est GFR (CKD-EPI)AfAm 52.0 L Est GFR (CKD-EPI)NonAf 44.9 L BUN/Creatinine Ratio 22.80 H Glucose 161 H Total Bilirubin 0.20 L Procalcitonin - Diagnostic Findings Chest x-ray: image reviewed Assessment and Plan Assessment: Acute on chronic hypoxemic and hypercapnic respiratory failure, in a patient with severe COPD. Chronic hypoxemic respiratory failure. History of chronic atrial fibrillation. Prior history of heavy tobacco use. History of deafness. History of right no detachment macular degeneration. History of hyperlipidemia. History of hypertension. History of osteoarthritis. Previous history of right nephrectomy for hypernephroma. History of melanoma. Plan: Plan dated 11/16/2021. This patient is admitted with a COPD exacerbation. We'll make sure he has all the appropriate medications including inhaled corticosteroids, systemic corticosteroids, long-acting beta agonists, short acting beta agonist, muscarinic antagonist, and oxygen therapy. The patient's medication profile is reviewed and everything seems appropriate. I don't believe he benefits from doxycycline at this time. All the other medications seem appropriate. We will continue to follow. Prognosis is certainly guarded. The patient's blood gases reviewed. He is a CO2 retainer. Based on the blood gas, the patient should be discharged on a Trilogy ventilator, with the average volume assured pressure support modality (AVAPS). Time with Patient: Greater than 30
--- NOTE | 2021-11-16 13:37 | P.PN ---
Subjective Progress Note Date: 11/16/21 Principal diagnosis: sob States that if he gets up and ambulates he gets short of breath but if he is sitting he is ok. No chest pain or significant cough. No fevers. Objective - Vital Signs Vital signs: Vital Signs Temp 97.6 F 11/16/21 08:00 Pulse 87 11/16/21 12:14 Resp 18 11/16/21 09:05 BP 125/51 11/16/21 08:00 Pulse Ox 93 L 11/16/21 09:05 FiO2 Intake & Output 11/15/21 11/16/21 11/16/21 18:59 06:59 18:59 Intake Total 1380 Output Total 750 500 400 Balance 630 -500 -400 Weight 113.398 kg Intake: Oral 1380 Output: Urine 750 500 400 Other: Voiding Method Urinal - Exam Constitutional: No acute distress, conversant, pleasant Eyes:Anicteric sclerae, moist conjunctiva, no lid-lag, PERRLA, ENMT: Oropharynx clear, no erythema, exudates Neck: Supple, FROM, no masses, or JVD, No carotid bruits, No thyromegaly Lungs: Severely diminished breath sounds bilaterally, Clear to percussion, Normal respiratory effort, no accessory muscle use Cardiovascular: Heart regular in rate and rhythm, No murmurs, gallops, or rubs, No peripheral edema Abdominal: Soft, Nontender, no guarding, rebound or rigidity, Normoactive bowel sounds, No hepatomegaly, No splenomegaly, No palpable mass Skin: Normal temperature, tone, texture, turgor, no induration, No subcutaneous nodules, No rash, lesions, No ulcers Extremities: No digital cyanosis, No clubbing, Pedal pulses intact and symmetrical, Radial pulses intact and symmetrical, No calf tenderness Psychiatric: Alert and oriented to person, place and time, appropriate affect, intact judgement Neuro: Muscles Strength 5/5 in all 4 extremities, Sensation to light touch grossly present throughout, Cranial nerves II-XII grossly intact, no focal sensory deficits - Labs CBC & Chem 7: 11/16/21 05:34 11/16/21 05:34 Labs: Abnormal Lab Results - Last 24 Hours (Table) 11/15/21 11/16/21 11/16/21 Range/Units 09:04 05:34 05:34 RBC 3.43 L (4.40-5.60) X 10*6/uL Hgb 9.9 L (13.0-17.0) g/dL Hct 33.4 L (39.6-50.0) % MCV 97.4 H (80.0-97.0) fL MCHC 29.6 L (32.0-37.0) g/dL Lymphocytes # 0.46 L (0.90-5.00) X 10*3/uL Monocytes # 0.11 L (0.20-1.00) X 10*3/uL Eosinophils # 0 L (0.04-0.35) X 10*3/uL ABG pCO2 (35-45) mmHg ABG pO2 (83-108) mmHg ABG HCO3 (21-25) mmol/L ABG Total CO2 (19-24) mmol/L ABG O2 Saturation (94-97) % Chloride 90 L (96-109) mmol/L Carbon Dioxide 38.6 H (20.0-27.5) mmol/L Anion Gap 9.40 L (10.00-18.00) mmol/L BUN 34.2 H (9.0-27.0) mg/dL Est GFR (CKD-EPI)AfAm 52.0 L (60.0-200.0) Est GFR (CKD-EPI)NonAf 44.9 L (60.0-200.0) BUN/Creatinine Ratio 22.80 H (12.00-20.00) Ratio Glucose 161 H (70-110) mg/dL Total Bilirubin 0.20 L (0.30-1.20) mg/dL Procalcitonin 0.23 H (0.02-0.09) ng/mL 11/16/21 Range/Units 09:38 RBC (4.40-5.60) X 10*6/uL Hgb (13.0-17.0) g/dL Hct (39.6-50.0) % MCV (80.0-97.0) fL MCHC (32.0-37.0) g/dL Lymphocytes # (0.90-5.00) X 10*3/uL Monocytes # (0.20-1.00) X 10*3/uL Eosinophils # (0.04-0.35) X 10*3/uL ABG pCO2 60 H (35-45) mmHg ABG pO2 54 L* (83-108) mmHg ABG HCO3 40 H* (21-25) mmol/L ABG Total CO2 42 H (19-24) mmol/L ABG O2 Saturation 89.4 L (94-97) % Chloride (96-109) mmol/L Carbon Dioxide (20.0-27.5) mmol/L Anion Gap (10.00-18.00) mmol/L BUN (9.0-27.0) mg/dL Est GFR (CKD-EPI)AfAm (60.0-200.0) Est GFR (CKD-EPI)NonAf (60.0-200.0) BUN/Creatinine Ratio (12.00-20.00) Ratio Glucose (70-110) mg/dL Total Bilirubin (0.30-1.20) mg/dL Procalcitonin (0.02-0.09) ng/mL Assessment and Plan Plan: Acute on chronic hypoxemic respiratory failure Acute COPD exacerbation Currently requiring 8L IV steroids Bronchodilators Pro calcitonin up 0.23, will start abx. Pulmonary following. Supplemental oxygen Monitor O2 sats Urinary frequency Urinalysis negative for infection Atrial Fibrillation, paroxysmal, Hyperlipidemia, Hypertension, Osteoarthritis (OA) All chronic Resume medications
[2021-11-16] MEDS: MELATONIN 5 MG TABLET PO SCH (21:50)
[2021-11-17] MEDS: methylPREDNISolone SOD SUCCI 125 MG/2 ML VIAL IV SCH ×4 (03:39→20:58)
[2021-11-17] MEDS: METOPROLOL TARTRATE 12.5 MG TAB PO SCH ×2 (07:25→20:18)
[2021-11-17] MEDS: APIXABAN 5 MG TAB PO SCH ×2 (07:25→20:18)
[2021-11-17] MEDS: DOXYCYCLINE 100 MG CAP PO SCH ×2 (07:26→20:18)
[2021-11-17] MEDS: GABAPENTIN 400 MG CAP PO SCH ×2 (07:26→20:18)
[2021-11-17] MEDS: BUMETANIDE 1 MG TAB PO SCH ×2 (07:26→20:18)
[2021-11-17] MEDS: AMIODARONE 200 MG TAB PO SCH (07:26)
[2021-11-17] MEDS: FAMOTIDINE 20 MG TAB PO SCH (07:26)
[2021-11-17] MEDS: POTASSIUM CHLORIDE ER 20 MEQ TAB.ER PO SCH (07:26)
[2021-11-17] MEDS: LORATADINE 10 MG TAB PO SCH (07:26)
[2021-11-17] MEDS: ARTIFICIAL TEARS-HYPROMELLOSE DROPS 15 ML BTL BOTH EYES SCH ×4 (07:29→20:19)
[2021-11-17] MEDS: ESCITALOPRAM 10 MG TAB PO SCH (07:31)
[2021-11-17] MEDS: ROFLUMILAST 500 MCG PO SCH (07:32)
[2021-11-17] MEDS: PATIENT'S OWN (Rosuvastatin 20 MG Tablet) PO SCH (07:32)
[2021-11-17] MEDS: SYMBICORT 160-4.5 MCG INHALER INHALATION SCH ×2 (08:12→19:36)
[2021-11-17] MEDS: IPRATROPIUM-ALBUTEROL 3 ML NEB INHALATION SCH ×4 (08:12→19:36)
--- NOTE | 2021-11-17 12:24 | P.PN ---
Subjective Progress Note Date: 11/17/21 Principal diagnosis: Shortness of breath. Pulmonary/critical care consultation dated 11/16/2021. 75-year-old male with history of very severe COPD, who presents to the emergency department on November 15, complaining of shortness of breath. He apparently called our office on Tuesday, stating that his saturations were down into the low 80s and high 70s. We told him to go to the emergency room. He finally made it there on November 15, yesterday. The patient does have a bit of a cough. Is mostly nonproductive. No wheezing. No fever or chills. He hasn't been feeling well for about a week or so. The patient is oxygen dependent, with chronic hypoxemic respiratory failure. Currently, he's on 8 L, with a saturation of 93%. He has a history of atrial fibrillation, COPD, decreased hearing, hyperlipidemia, hypertension, kidney cancer, status post right nephrectomy, detached retina, macular degeneration, and melanoma. He was a heavy smoker in the past. White count 7.2, hemoglobin 9.9, hematocrit 33.4, 176,000. Blood gases show pO2 of 54, pCO2 of 60, and a pH is 7.43. That was on 4 L. Saturations are 89.4%. Sodium 138, potassium 4.7, chlorides 90, CO2 39, anion gap 9, BUN 34, creatinine 1.5. Chest x-rays consistent with mild fluid overload. Progress note dated 11/17/2021. This is a 75-year-old male seen yesterday in consultation. The patient does have history of chronic hypoxemic respiratory failure, and severe COPD. I see the patient in the office. Please see the note above. Currently, he's feeling better, and is on 4 L. We were able to arrange for him to get a Trilogy ventilator. The patient will be on average volume assured pressure support. This should help the patient with his underlying COPD. Currently, he's on 4 L nasal cannula. Is not receiving any IV fluids. No new labs today. Patient's resting comfortably in a chair next to his hospital bed. Objective - Vital Signs Vital signs: Vital Signs Temp 97.7 F 11/17/21 07:53 Pulse 65 11/17/21 12:08 Resp 18 11/17/21 07:53 BP 120/61 11/17/21 07:53 Pulse Ox 93 L 11/17/21 08:12 FiO2 36 11/17/21 08:12 Intake & Output 11/16/21 11/17/21 11/17/21 18:59 06:59 18:59 Intake Total 100 Output Total 1000 Balance -900 Intake: Intake, IV Titration 100 Amount cefTRIAXone 1 gm In 100 Sodium Chloride 0.9% 50 ml @ 100 mls/hr IVPB Q24HR [facility] Rx#:[id number] Output: Urine 1000 Other: Voiding Method Toilet Urinal # Voids 2 - Exam No acute distress, oriented 3. Currently, the patient's on 4 L nasal cannula. Saturations are more than adequate. There is no conversational dyspnea, or use of accessory muscles. HEENT examination is grossly unremarkable. Neck supple. Full range of motion. No adenopathy thyromegaly or neck vein distention. Cardiovascular examination reveals regular rhythm rate. S1-S2 normal. No S3 or S4. No discernible murmur noted. Heart sounds are distant. Heart rate 65 bpm. Lungs reveal scattered rhonchi, crackles, and wheezes. Breath sounds are diminished throughout. Breath sounds are equal bilaterally. Breath sounds are improved today. 4 L saturation is 93%. Abdomen soft with bowel sounds. No masses or tenderness. Extremities are intact. No cyanosis or clubbing. Mild edema appreciated. Skin is without rash or lesion. Neurologic examination is brief but nonfocal. - Labs CBC & Chem 7: 11/16/21 05:34 11/16/21 05:34 Assessment and Plan Assessment: Acute on chronic hypoxemic and hypercapnic respiratory failure, in a patient with severe COPD. Chronic hypoxemic respiratory failure. History of chronic atrial fibrillation. Prior history of heavy tobacco use. History of deafness. History of right no detachment macular degeneration. History of hyperlipidemia. History of hypertension. History of osteoarthritis. Previous history of right nephrectomy for hypernephroma. History of melanoma. Plan: Plan dated 11/16/2021. This patient is admitted with a COPD exacerbation. We'll make sure he has all the appropriate medications including inhaled corticosteroids, systemic corticosteroids, long-acting beta agonists, short acting beta agonist, muscarinic antagonist, and oxygen therapy. The patient's medication profile is reviewed and everything seems appropriate. I don't believe he benefits from doxycycline at this time. All the other medications seem appropriate. We will continue to follow. Prognosis is certainly guarded. The patient's blood gases reviewed. He is a CO2 retainer. Based on the blood gas, the patient should be discharged on a Trilogy ventilator, with the average volume assured pressure support modality (AVAPS). Plan dated 11/17/2021. The patient is admitted with a diagnosis of COPD exacerbation. The patient's on appropriate medications. He is now back to 4 L nasal cannula, which is his home oxygen dose. Blood gases support a Trilogy ventilator at home. We will arrange for this. Labs, x-rays, and medications are reviewed. The patient appears to be doing relatively well, and much better. Breath sounds are improved. We will continue to follow make recommendations where appropriate. Prognosis is certainly guarded. Time with Patient: Less than 30
--- NOTE | 2021-11-17 13:07 | P.PN ---
Subjective Progress Note Date: 11/17/21 Principal diagnosis: sob Patient still having shortness of breath with activity. He denied having any chest pain, cough or fevers. Objective - Vital Signs Vital signs: Vital Signs Temp 97.7 F 11/17/21 07:53 Pulse 65 11/17/21 12:08 Resp 18 11/17/21 07:53 BP 120/61 11/17/21 07:53 Pulse Ox 93 L 11/17/21 08:12 FiO2 36 11/17/21 08:12 Intake & Output 11/16/21 11/17/21 11/17/21 18:59 06:59 18:59 Intake Total 100 Output Total 1000 Balance -900 Intake: Intake, IV Titration 100 Amount cefTRIAXone 1 gm In 100 Sodium Chloride 0.9% 50 ml @ 100 mls/hr IVPB Q24HR [facility] Rx#:[id number] Output: Urine 1000 Other: Voiding Method Toilet Urinal # Voids 2 - Exam Constitutional: No acute distress, conversant, pleasant Eyes:Anicteric sclerae, moist conjunctiva, no lid-lag, PERRLA, ENMT: Oropharynx clear, no erythema, exudates Neck: Supple, FROM, no masses, or JVD, No carotid bruits, No thyromegaly Lungs: Severely diminished breath sounds bilaterally, Clear to percussion, Normal respiratory effort, no accessory muscle use Cardiovascular: Heart regular in rate and rhythm, No murmurs, gallops, or rubs, No peripheral edema Abdominal: Soft, Nontender, no guarding, rebound or rigidity, Normoactive bowel sounds, No hepatomegaly, No splenomegaly, No palpable mass Skin: Normal temperature, tone, texture, turgor, no induration, No subcutaneous nodules, No rash, lesions, No ulcers Extremities: No digital cyanosis, No clubbing, Pedal pulses intact and symmetri cheryl, Radial pulses intact and symmetrical, No calf tenderness Psychiatric: Alert and oriented to person, place and time, appropriate affect, intact judgement Neuro: Muscles Strength 5/5 in all 4 extremities, Sensation to light touch grossly present throughout, Cranial nerves II-XII grossly intact, no focal sensory deficits - Labs CBC & Chem 7: 11/16/21 05:34 11/16/21 05:34 Assessment and Plan Plan: Acute on chronic hypoxemic respiratory failure Acute COPD exacerbation Earlier he was requiring 8L, currently is on 4 L. IV steroids Bronchodilators Pro calcitonin up 0.23, continue doxycycline. Pulmonary advised discharging patient on a Trilogy ventilator, with the average volume assured pressure support modality (AVAPS). Supplemental oxygen Monitor O2 sats Urinary frequency Urinalysis negative for infection Atrial Fibrillation, paroxysmal, Hyperlipidemia, Hypertension, Osteoarthritis (OA) All chronic Resume medications Anticipated discharge: Home in a.m.
[2021-11-17] MEDS: MELATONIN 5 MG TABLET PO SCH (20:18)
[2021-11-18] MEDS: methylPREDNISolone SOD SUCCI 125 MG/2 ML VIAL IV SCH ×2 (03:30→08:37)
[2021-11-18 07:27] VITALS: BP 125/66; RESP 17; TEMP 98.4
[2021-11-18] MEDS: SYMBICORT 160-4.5 MCG INHALER INHALATION SCH (08:22)
[2021-11-18] MEDS: IPRATROPIUM-ALBUTEROL 3 ML NEB INHALATION SCH ×2 (08:22→11:42)
[2021-11-18 08:26] VITALS: PULSE 80
[2021-11-18] MEDS: GABAPENTIN 400 MG CAP PO SCH (08:36)
[2021-11-18] MEDS: LORATADINE 10 MG TAB PO SCH (08:36)
[2021-11-18] MEDS: APIXABAN 5 MG TAB PO SCH (08:36)
[2021-11-18] MEDS: METOPROLOL TARTRATE 12.5 MG TAB PO SCH (08:37)
[2021-11-18] MEDS: ESCITALOPRAM 10 MG TAB PO SCH (08:37)
[2021-11-18] MEDS: DOXYCYCLINE 100 MG CAP PO SCH (08:37)
[2021-11-18] MEDS: AMIODARONE 200 MG TAB PO SCH (08:37)
[2021-11-18] MEDS: POTASSIUM CHLORIDE ER 20 MEQ TAB.ER PO SCH (08:37)
[2021-11-18] MEDS: FAMOTIDINE 20 MG TAB PO SCH (08:37)
[2021-11-18] MEDS: BUMETANIDE 1 MG TAB PO SCH (08:37)
[2021-11-18] MEDS ORDERED: predniSONE 20 MG TAB PO SCH (09:00)
[2021-11-18] MEDS: ROFLUMILAST 500 MCG PO SCH (09:13)
[2021-11-18] MEDS: PATIENT'S OWN (Rosuvastatin 20 MG Tablet) PO SCH (09:13)
[2021-11-18] MEDS: ARTIFICIAL TEARS-HYPROMELLOSE DROPS 15 ML BTL BOTH EYES SCH (09:49)
--- NOTE | 2021-11-18 12:34 | P.PN ---
Subjective Progress Note Date: 11/18/21 Principal diagnosis: Shortness of breath On 11/18/2021 patient seen in follow-up on medical surgical floor, he is awake and alert, in no acute distress, he is clinically improving, breathing quite comfortably, he remains on 4 L of oxygen pulse ox is 94%. His IV fluids have been hep-locked. Patient's blood gas didn't qualify him for trilogy device for diagnoses of advanced COPD with recurrent hospitalizations for acute exacerbations. Currently arrangements are in progress for arrangement of Trilogy ventilator at home, on AVAPS settings. Currently patient remains on Sym bicort, DuoNeb, remains on doxycycline and Rocephin for antibiotic coverage, and and IV Solu-Medrol. His had no fever or chills. His chest x-ray on admission showed mild cardiomegaly and tiny bilateral pleural effusions. Objective - Vital Signs Vital signs: Vital Signs Temp 98.4 F 11/18/21 07:26 Pulse 80 11/18/21 08:37 Resp 17 11/18/21 07:26 BP 125/66 11/18/21 07:26 Pulse Ox 94 L 11/18/21 07:26 FiO2 36 11/17/21 08:12 Intake & Output 11/17/21 11/18/21 11/18/21 18:59 06:59 18:59 Intake Total 240 Balance 240 Intake: Oral 240 Other: Voiding Method Toilet Urinal # Voids 2 3 - Exam GENERAL EXAM: Alert, very pleasant, 75-year-old white male, on 4 L of oxygen pulse ox of 90-94% comfortable in no apparent distress. HEAD: Normocephalic/atraumatic. EYES: Normal reaction of pupils, equal size. Conjunctiva pink, sclera white. NOSE: Clear with pink turbinates. THROAT: No erythema or exudates. NECK: No masses, no JVD, no thyroid enlargement, no adenopathy. CHEST: No chest wall deformity. Symmetrical expansion. LUNGS: Diminished air entry with no crackles, wheeze, rhonchi or dullness. CVS: Regular rate and rhythm, normal S1 and S2, no gallops, no murmurs, no rubs ABDOMEN: Soft, nontender. No hepatosplenomegaly, normal bowel sounds, no guarding or rigidity. EXTREMITIES: No clubbing, no edema, no cyanosis, 2+ pulses and upper and lower extremities. MUSCULOSKELETAL: Muscle strength and tone normal. SPINE: No scoliosis or deformity SKIN: No rashes CENTRAL NERVOUS SYSTEM: Alert and oriented -3. No focal deficits, tone is normal in all 4 extremities. PSYCHIATRIC: Alert and oriented -3. Appropriate affect. Intact judgment and insight. - Labs CBC & Chem 7: 11/16/21 05:34 11/16/21 05:34 Assessment and Plan Plan: Assessment: #1. Acute on chronic hypoxic and hypercapnic respiratory failure related to acute exacerbation of COPD #2. Chronic hypoxic and hypercapnic respiratory failure #3. History of chronic atrial fibrillation #4. Previous history of heavy tobacco use, currently in remission #5. History of deafness #6. History of right macular degeneration #7. Hypertension #8. Hyperlipidemia #9. History arthritis #10. Previous history of right nephrectomy for hypernephroma #11. History of melanoma Plan: Patient is clinically improved Breathing much more comfortably We will transition his IV Solu-Medrol to oral prednisone 40 mg He can continue on doxycycline, we can discontinue the Rocephin Patient is stable for discharge home today Trilogy ventilator on AVAPS settings is being arranged for home use for a diagnosis of advanced COPD with chronic hypoxic and hypercapnic respiratory failure with recurrent readmissions At home he can resume his maintenance Wixela Inhub, Spiriva, and nebulized albuterol He can resume his Bumex Outpatient follow-up with Dr. Ware in the office next week I have personally seen and examined the patient, performed the documentation and the assessment and plan as written. Number of minutes spent on the visit: [15] Time with Patient: Less than 30
--- NOTE | 2021-11-18 15:08 | P.DS ---
Providers Date of admission: 11/15/21 11:21 Expected date of discharge: 11/18/21 Attending physician: Emma Donnelly MD Consults: 11/15/21 11:20 Consult Physician Routine Consulting Provider: Chris Ware Consult Reason/Comments: dyspnea Do you want consulting provider notified?: Yes Primary care physician: [facility] Course: 75-year-old male with past medical history significant for atrial fibrillation, advanced COPD on 4-5L of O2 at baseline follows with Dr. Ware, legally blind, hyperlipidemia, hypertension, osteoarthritis presenting to the emergency department with difficulty breathing maikol on exertion. Symptoms have progressed over the past week. Minimal cough. No fever. Symptoms are similar to previous COPD. Patient did talk to his lung doctor who recommended he come to the emergency department. No leg pain or leg swelling. He also has been having intermittent abdominal pain associated with urinary frequency, denied fevers or chills. No nausea or vomiting. He was ambulated in the emergency department when his baseline oxygen and his O2 saturation dropped to 77%. Chest x-ray showed new mild cardiomegaly with tiny bilateral pleural effusion. ProBNP was 375. Creatinine 1.65, chronic. He was subsequently admitted for further evaluation. Patient was started on IV steroids and bronchodilators. Pulmonology was consulted for further management of his condition. Pulmonology recommended trilogy ventilator which was arranged to arrive at home on the day of discharge. His pro-calcitonin was mildly elevated for which he was started on doxycycline for 3 days. His respiratory status improved. He was able to be weaned down to his baseline oxygen 4 L. Patient was seen and examined on 11/18/2021. He reported feeling back to baseline with considerable improvement in his breathing. Patient was requesting to be discharged home. He was cleared by pulmonology standpoint. He was discharged home with Medrol Dosepak and advised to continue prednisone after completion. Advised follow-up with his PCP within 1-2 days of discharge. Advised to follow-up with Pulmonology Dr. Ware on 11/26/2021. This complex discharge took about 45 minutes to complete. General: [non toxic], [no distress], [appears at stated age] Derm: [warm], [dry] Head: [atraumatic], [normocephalic], [symmetric] Eyes: [EOMI], [no lid lag], [anicteric sclera] Mouth: [no lip lesion], [mucus membranes moist] Cardiovascular: [S1S2 reg], [no murmur] Lungs: [Decreased breath sounds bilateral], [no rhonchi, no rales] , [no accessory muscle use] Ext: [no gross muscle atrophy], [no edema], [no contractures] Neuro: [no focal neuro deficits] Psych: [Alert], [oriented], [appropriate affect] Discharge Diagnosis: Acute on chronic hypoxemic hypercapnic respiratory failure Acute COPD exacerbation Chronic conditions: Atrial Fibrillation, Hyperlipidemia, Hypertension, Osteoarthritis (OA) Pertinent Studies: CXR Patient Condition at Discharge: Stable Plan - Discharge Summary Discharge Rx Participant: Yes New Discharge Prescriptions: New methylPREDNISolone Dose Pack [Medrol Dose Pack] 4 mg PO DIRECTED #1 packet Continue Vit C/E/Zn/Coppr/Lutein/Zeaxan [Preservision Areds 2 Softgel] 1 cap PO BID Albuterol Sulfate [Proair Hfa] 2 puff INHALATION RT-Q6H PRN PRN Reason: Shortness Of Breath Escitalopram [Lexapro] 10 mg PO DAILY Apixaban [Eliquis] 5 mg PO BID 30 Days #60 tab Loratadine 10 mg PO DAILY Rosuvastatin [Crestor] 10 mg PO DAILY Gabapentin [Neurontin] 400 mg PO BID Metoprolol Tartrate [Lopressor] 12.5 mg PO BID Fluticasone Propion/Salmeterol [Wixela 500-50 Inhub] 1 puff INHALATION RT-BID Famotidine [Pepcid] 20 mg PO BID Amiodarone [Cordarone] 200 mg PO DAILY Tiotropium 2.5 Mcg/Puff [Spiriva Respimat 2.5 Mcg] 2 puff INHALATION RT-DAILY Roflumilast [Daliresp] 500 mcg PO DAILY Albuterol Nebulized [Ventolin Nebulized] 2.5 mg INHALATION RT-TID PRN PRN Reason: Shortness Of Breath Potassium Chloride ER [K-Dur 20] 20 meq PO DAILY #30 tab Dextran/Hypromellose/Glycerin [Genteal Tears 0.1%-0.2%-0.3%] 1 drop BOTH EYES QID Bumetanide [BUMEX] 2 mg PO BID predniSONE 5 mg PO DAILY #0 traZODone HCL [Desyrel] 50 mg PO HS Rosuvastatin [Crestor] 10 mg PO DAILY Digoxin [Lanoxin] 125 mcg PO DAILY Ammonium Lactate Cream [Lac-Hydrin 12% Cream] 1 applic TOPICAL BID Discontinued Digoxin [Lanoxin] 125 mcg PO DAILY #30 tab Potassium Chloride ER [K-Dur 20] 20 meq PO BID Ammonium Lactate Cream [Lac-Hydrin 12% Cream] 1 applic TOPICAL BID Loratadine [Claritin] 10 mg PO DAILY Discharge Medication List Vit C/E/Zn/Coppr/Lutein/Zeaxan [Preservision Areds 2 Softgel] 1 cap PO BID 08/03/17 [History] Albuterol Sulfate [Proair Hfa] 2 puff INHALATION RT-Q6H PRN 02/23/19 [History] Escitalopram [Lexapro] 10 mg PO DAILY 11/25/20 [History] Apixaban [Eliquis] 5 mg PO BID 30 Days #60 tab 11/26/20 [Rx] Amiodarone [Cordarone] 200 mg PO DAILY 12/02/20 [History] Albuterol Nebulized [Ventolin Nebulized] 2.5 mg INHALATION RT-TID PRN 01/17/21 [History] Roflumilast [Daliresp] 500 mcg PO DAILY 01/17/21 [History] Tiotropium 2.5 Mcg/Puff [Spiriva Respimat 2.5 Mcg] 2 puff INHALATION RT-DAILY 01/17/21 [History] Potassium Chloride ER [K-Dur 20] 20 meq PO DAILY #30 tab 01/26/21 [Rx] Bumetanide [BUMEX] 2 mg PO BID 08/04/21 [History] Dextran/Hypromellose/Glycerin [Genteal Tears 0.1%-0.2%-0.3%] 1 drop BOTH EYES QID 08/04/21 [History] Loratadine 10 mg PO DAILY 08/04/21 [History] Rosuvastatin [Crestor] 10 mg PO DAILY 08/04/21 [History] predniSONE 5 mg PO DAILY #0 08/06/21 [Rx] Ammonium Lactate Cream [Lac-Hydrin 12% Cream] 1 applic TOPICAL BID 11/15/21 [History] Digoxin [Lanoxin] 125 mcg PO DAILY 11/15/21 [History] Famotidine [Pepcid] 20 mg PO BID 11/15/21 [History] Fluticasone Propion/Salmeterol [Wixela 500-50 Inhub] 1 puff INHALATION RT-BID 11/15/21 [History] Gabapentin [Neurontin] 400 mg PO BID 11/15/21 [History] Metoprolol Tartrate [Lopressor] 12.5 mg PO BID 11/15/21 [History] Rosuvastatin [Crestor] 10 mg PO DAILY 11/15/21 [History] traZODone HCL [Desyrel] 50 mg PO HS 11/15/21 [History] methylPREDNISolone Dose Pack [Medrol Dose Pack] 4 mg PO DIRECTED #1 packet [Rx] Follow up Appointment(s)/Referral(s): Vickie Haro PAC [REFERRING] - 1-2 Days [facility] [NON-STAFF] - As Needed Chris Ware DO [Family Provider] - 11/26/21 9:30 am Clay Concepcion [NON-STAFF] - (Please call Jamey Williamson if you have any questions regarding the Trilogy Vent. ) Patient Instructions/Handouts: COPD (Chronic Obstructive Pulmonary Disease) (DC) Activity/Diet/Wound Care/Special Instructions: *coordinator of genetic services: see case management for indigent funds form for new meds at discharge Home Care is being arranged by the [facility]. Please call [phone] if you do not hear from a home care agency within 48 hours of discharge. Start home dose of Prednisone after finishing Medrol Dose-[place] Follow up with PCP within 1-2 days of discharge. Follow up with Pulmonology within 1 week of discharge. Come back to the ED for worsening shortness of breath. Discharge Disposition: HOME SELF-CARE
== END 2021-11-18 14:30 | disposition home health service (06) | DRG 189 ==
LOC: EC 08:32 → 4SSUR 11:21
PROVIDERS: ADMIT Internal Medicine; ATTEND Internal Medicine
DX: J96.21 Acute and chronic respiratory failure with hypoxia (principal); I27.20 Pulmonary hypertension, unspecified; Z99.81 Dependence on supplemental oxygen; J43.9 Emphysema, unspecified; J96.22 Acute and chronic respiratory failure with hypercapnia; E78.5 Hyperlipidemia, unspecified; I48.0 Paroxysmal atrial fibrillation; H35.3210 Exudative age-related macular degeneration, right eye, stage unspecified; Z20.822 Contact with and (suspected) exposure to COVID-19; G47.33 Obstructive sleep apnea (adult) (pediatric); I10 Essential (primary) hypertension; E87.70 Fluid overload, unspecified; R35.0 Frequency of micturition; I45.10 Unspecified right bundle-branch block; H54.8 Legal blindness, as defined in USA; H91.90 Unspecified hearing loss, unspecified ear; M19.90 Unspecified osteoarthritis, unspecified site; Z79.01 Long term (current) use of anticoagulants; Z79.51 Long term (current) use of inhaled steroids; Z79.52 Long term (current) use of systemic steroids; Z79.899 Other long term (current) drug therapy; Z85.528 Personal history of other malignant neoplasm of kidney; Z90.5 Acquired absence of kidney; Z85.820 Personal history of malignant melanoma of skin; Z87.891 Personal history of nicotine dependence; Z88.8 Allergy status to other drugs, medicaments and biological substances; Z80.8 Family history of malignant neoplasm of other organs or systems
CPT/HCPCS: 36415; 36600; 71046; 80053; 81003; 82805; 83605; 83735; 83880; 84145; 85025; 85610; 85730; 87502; 87635; 93005; 94640; 94760; 96374; 99285

== ENCOUNTER 2022-05-30 19:25 | Inpatient (IN) | payer OTHER, MEDICARE ==
[2022-05-30 19:56] LABS: Glucose,Whole Blood 225 mg/dL (70-110)
[2022-05-30] MEDS ORDERED: IPRATROPIUM-ALBUTEROL 3 ML NEB INHALATION STA (20:33)
[2022-05-30 20:34] LABS: Basophils % (A) 1 %; Eosinophils # (A) 0.1 k/uL (0-0.7); Eosinophils % (A) 1 %; HCT 37.7 % (39.0-53.0); Lymphocytes # (A) 0.5 k/uL (1.0-4.8); Lymphocytes % (A) 7 %; MCH 30.2 pg (25.0-35.0); MCHC 31.8 g/dL (31.0-37.0); MCV 95.1 fL (80.0-100.0); Mean Platelet Volume 7.2; Monocytes # (A) 0.5 k/uL (0-1.0); Monocytes % (A) 7 %; Neutrophils # (A) 5.5 k/uL (1.3-7.7); Neutrophils % (A) 81 %; Platelet Count 176 k/uL (150-450); RBC 3.96 m/uL (4.30-5.90); RDW 14.7 % (11.5-15.5); WBC 6.9 k/uL (3.8-10.6)
[2022-05-30] MEDS ORDERED: LORazepam 2 MG/ML INJ IV STA (20:34)
--- NOTE | 2022-05-30 20:39 | ED ---
Dizziness HPI - General Chief Complaint: Dizziness Stated Complaint: Dizzy Time Seen by Provider: 05/30/22 19:53 Source: patient, family, RN notes reviewed Mode of arrival: wheelchair Limitations: no limitations - History of Present Illness Initial Comments: This is a 76-year-old male who presents to the emergency department for dizziness and tremors. States that this been present for the last 3-4 days and seems to be worsening. It started in the left hand and is now in both hands and legs. States that he feels very unsteady. He is having difficulty using his hands to hold objects due to the shaking. Denies any history of similar symptoms in the past. Denies any fevers or chills. He does report a minor increase in shortness of breath over the last few days. He is on 4 L oxygen via nasal cannula at home for COPD. Also reports intermittent chest tightness over the last couple of days. Denies any fevers, chills, sore throat, palpitations, abdominal pain, nausea, vomiting, diarrhea, back pain, or headaches. MD Complaint: dizziness, other (tremors) Onset/Timin -: days(s) Associated Symptoms: chest pain, shortness of breath - Related Data Home Medications Medication Instructions Recorded Confirmed Vit C/E/Zn/Coppr/Lutein/Zeaxan 1 cap PO BID 08/03/17 11/15/21 [Preservision Areds 2 Softgel] Albuterol Sulfate [Proair Hfa] 2 puff INHALATION RT-Q6H PRN 02/23/19 11/15/21 Escitalopram [Lexapro] 10 mg PO DAILY 11/25/20 11/15/21 Amiodarone [Cordarone] 200 mg PO DAILY 12/02/20 11/15/21 Albuterol Nebulized [Ventolin 2.5 mg INHALATION RT-TID PRN 01/17/21 11/15/21 Nebulized] Roflumilast [Daliresp] 500 mcg PO DAILY 01/17/21 11/15/21 Tiotropium 2.5 Mcg/Puff [Spiriva 2 puff INHALATION RT-DAILY 01/17/21 11/15/21 Respimat 2.5 Mcg] Bumetanide [BUMEX] 2 mg PO BID 08/04/21 11/15/21 Dextran/Hypromellose/Glycerin 1 drop BOTH EYES QID 08/04/21 11/15/21 [Genteal Tears 0.1%-0.2%-0.3%] Loratadine 10 mg PO DAILY 08/04/21 11/15/21 Rosuvastatin [Crestor] 10 mg PO DAILY 08/04/21 11/15/21 Ammonium Lactate Cream [Lac-Hydrin 1 applic TOPICAL BID 11/15/21 11/15/21 12% Cream] Digoxin [Lanoxin] 125 mcg PO DAILY 11/15/21 11/15/21 Famotidine [Pepcid] 20 mg PO BID 11/15/21 11/15/21 Fluticasone Propion/Salmeterol 1 puff INHALATION RT-BID 11/15/21 11/15/21 [Wixela 500-50 Inhub] Gabapentin [Neurontin] 400 mg PO BID 11/15/21 11/15/21 Metoprolol Tartrate [Lopressor] 12.5 mg PO BID 11/15/21 11/15/21 Rosuvastatin [Crestor] 10 mg PO DAILY 11/15/21 11/15/21 traZODone HCL [Desyrel] 50 mg PO HS 11/15/21 11/15/21 Previous Rx's Medication Instructions Recorded Apixaban [Eliquis] 5 mg PO BID 30 Days #60 tab 11/26/20 Potassium Chloride ER [K-Dur 20] 20 meq PO DAILY #30 tab 01/26/21 predniSONE 5 mg PO DAILY #0 08/06/21 methylPREDNISolone Dose Pack 4 mg PO DIRECTED #1 packet 11/18/21 [Medrol Dose Pack] Allergies Allergy/AdvReac Type Severity Reaction Status Date / Time atorvastatin [From Lipitor] Allergy Per Verified 11/15/21 12:10 [facility] Review of Systems ROS Statement: Those systems with pertinent positive or pertinent negative responses have been documented in the HPI. ROS Other: All systems not noted in ROS Statement are negative. Past Medical History Past Medical History: Atrial Fibrillation, Cancer, COPD, Eye Disorder, Hearing Disorder / Deafness, Hyperlipidemia, Hypertension, Osteoarthritis (OA) Additional Past Medical History / Comment(s): Emphysema (takes inhalers and uses oxygen at home). Hx Kidney Cancer in 2007, R nephrectomy.q Left eye detached retina. Wet Macular Degeneration right eye. Hx Melanoma on back. Bilateral hearing aid use, legally blind. History of Any Multi-Drug Resistant Organisms: None Reported Past Surgical History: Back Surgery Additional Past Surgical History / Comment(s): Right kidney removed. Left eye surgery X3 for detacted retina. Bilateral cataract surgery. Mohs surgery thorac ic spine for melanoma. Past Anesthesia/Blood Transfusion Reactions: Previous Problems w/ Anesthesia Additional Past Anesthesia/Blood Transfusion Reaction / Comment(s): States low heart rate, light-headed and low BP X1 with anesthesia. "Got broke vocal cord and could not talk for 2 months after anesthesia one time." Past Psychological History: No Psychological Hx Reported Smoking Status: Former smoker Past Alcohol Use History: None Reported Past Drug Use History: None Reported - Past Family History Mother Family Medical History: Cancer Additional Family Medical History / Comment(s): Brain Cancer. Father Family Medical History: CVA/TIA General Exam Limitations: no limitations General appearance: alert, in no apparent distress Head exam: Present: atraumatic, normocephalic, normal inspection Respiratory exam: Present: decreased breath sounds, prolonged expiratory Cardiovascular Exam: Present: regular rate, normal rhythm Neurological exam: Present: alert, oriented X3, CN II-XII intact Psychiatric exam: Present: normal affect, normal mood Skin exam: Present: warm, dry, intact, normal color. Absent: rash Course Vital Signs 05/30/22 05/30/22 05/30/22 19:48 21:14 21:24 Temperature 98.4 F Pulse Rate 87 84 85 Respiratory 22 Rate Blood Pressure 125/62 O2 Sat by Pulse 92 L Oximetry 05/31/22 00:06 Temperature Pulse Rate 88 Respiratory 15 Rate Blood Pressure 133/87 O2 Sat by Pulse 99 Oximetry Medical Decision Making - Medical Decision Making This is a 76-year-old male who presents to the emergency department for increasing shortness of breath and tremors. Was pt. sent in by a medical professional or institution? @ -No Did you speak to anyone other than the patient for history? @ -His family Did you review nursing and triage notes? @ -Yes, and I agree, it is accurate with regards to the patient's symptoms. Were old charts reviewed? @ -Yes, lab work and EKG from 11/15/2021 Differential Diagnosis? @ -Differential Dyspnea: Coronary syndrome, arrhythmia, tamponade, asthma, COPD, pulmonary embolism, pneumonia, pneumothorax, pulmonary effusion, anaphylaxis, diabetic ketoacidosis, flailed chest, pulmonary contusion, diaphragmatic rupture, anemia, neuromusc ular, this is not meant to be an all-inclusive list. Differential Tremors: Parkinson's, brain lesion, essential tremor, MS, hypoglycemia, stress, this is not meant to be an all-inclusive list. Differential Chest Pain: Stable Angina, Unstable Angina, STEMI, NSTEMI Aortic Dissection, Pneumothorax, Musculoskeletal, Esophageal Spasm GERD, Cholecystitis, Pancreatitis, Zoster, this is not meant to be an all-inclusive list. EKG interpreted by me (3pts min.)? @ -Sinus rhythm. Ventricular rate 82 bpm, AZ interval 149 ms, QRS duration 156 ms, QTC 434 ms. X-rays interpreted by me (1pt min.)? @ --Chest x-ray obtained, my interpretation identifies no localized consolidations or infiltrates. CT interpreted by me (1pt min.)? @ -CT scan of the brain identifies no ischemic changes or masses. What testing was considered but not performed? (CT, X-rays, U/S, labs)? Why? @ -None What meds were considered but not given? Why? @ -None Did you discuss the management of the patient with other professionals? @ -Yes, Dr. Dudley who accepts the patient for admission. Did you reconcile home meds? @ -No Was smoking cessation discussed for >3mins.? @ -No Was critical care preformed (if so, how long)? @ -No Were there social determinants of health that impacted care today? How? (Homelessness, low income, unemployed, alcoholism, drug addiction, transportation, low edu. Level, literacy, decrease access to med. care, group home, rehab)? @ -No Was there de-escalation of care discussed even if they declined? (Discuss DNR or withdrawal of care, Hospice)? @ -No What co-morbidities impacted this encounter? (DM, HTN, Smoking, COPD, CAD, Cancer, CVA, Hep., AIDS, mental health diagnosis, sleep apnea, morbid obesity)? @ -COPD, HLD, HTN. Was patient admitted / discharged? @ -Admitted. Lab work obtained and is found to be consistent with an acute kidney injury and elevated lactic acid. CO2 is elevated, but consistent when compared with prior values. Chest x-ray and computed tomography scan of the br ain obtained both identifying no acute findings. He was given a liter bolus of normal saline for the OBDULIO and elevated lactic acid. DuoNeb breathing treatment administered as well, which the patient states is beneficial. Patient will be admitted to medicine for AK I and elevated lactic acid for rehydration. Undiagnosed new problem with uncertain prognosis? @ -Tremors Drug Therapy requiring intensive monitoring for toxicity (Heparin, Nitro, Insulin, Cardizem)? @ -None Were any procedures done? @ -None Diagnosis/symptom? @ -Acute kidney injury Acute, or Chronic, or Acute on Chronic? @ -Acute Uncomplicated (without systemic symptoms) or Complicated (systemic symptoms)? @ -Complicated Side effects of treatment? @ -None Exacerbation, Progression, or Severe Exacerbation] @ -Not applicable Poses a threat to life or bodily function? @ -Yes Diagnosis/symptom? @ -Elevated lactic acid Acute, or Chronic, or Acute on Chronic? @ -Acute Uncomplicated (without systemic symptoms) or Complicated (systemic symptoms)? @ -Complicated Side effects of treatment? @ -None Exacerbation, Progression, or Severe Exacerbation] @ -Not applicable Poses a threat to life or bodily function? @ -Yes This case was discussed in detail with the attending ED physician, Dr. Edwards. Presentation, findings, and treatment plan discussed in detail as well. - Lab Data Result diagrams: 05/30/22 20:06 05/30/22 20:06 Lab Results 05/30/22 05/30/22 05/30/22 Range/Units 19:53 20:06 20:06 WBC 6.9 (3.8-10.6) k/uL RBC 3.96 L (4.30-5.90) m/uL Hgb 12.0 L (13.0-17.5) gm/dL Hct 37.7 L (39.0-53.0) % MCV 95.1 (80.0-100.0) fL MCH 30.2 (25.0-35.0) pg MCHC 31.8 (31.0-37.0) g/dL RDW 14.7 (11.5-15.5) % Plt Count 176 (150-450) k/uL MPV 7.2 Neutrophils % 81 % Lymphocytes % 7 % Monocytes % 7 % Eosinophils % 1 % Basophils % 1 % Neutrophils # 5.5 (1.3-7.7) k/uL Lymphocytes # 0.5 L (1.0-4.8) k/uL Monocytes # 0.5 (0-1.0) k/uL Eosinophils # 0.1 (0-0.7) k/uL Basophils # 0.0 (0-0.2) k/uL PT 9.8 (9.0-12.0) sec INR 0.9 (<1.2) Sample Site ABG pH (7.35-7.45) ABG pCO2 (35-45) mmHg ABG pO2 (83-108) mmHg ABG HCO3 (21-25) mmol/L ABG Total CO2 (19-24) mmol/L ABG O2 Saturation (94-97) % ABG Base Excess mmol/L Pritesh Test FiO2 % Sodium (137-145) mmol/L Potassium (3.5-5.1) mmol/L Chloride (98-107) mmol/L Carbon Dioxide (22-30) mmol/L Anion Gap mmol/L BUN (9-20) mg/dL Creatinine (0.66-1.25) mg/dL Est GFR (CKD-EPI)AfAm (>60 ml/min/1.73 sqM) Est GFR (CKD-EPI)NonAf (>60 ml/min/1.73 sqM) Glucose (74-99) mg/dL POC Glucose (mg/dL) 225 H (70-110) mg/dL POC Glu Process Manufacturing Engineer ID Misty Story Lactic Ac Sepsis Rflx Plasma Lactic Acid Fabiano (0.7-2.0) mmol/L Calcium (8.4-10.2) mg/dL Magnesium (1.6-2.3) mg/dL Total Bilirubin (0.2-1.3) mg/dL AST (17-59) U/L ALT (4-49) U/L Alkaline Phosphatase (38-126) U/L Troponin I (0.000-0.034) ng/mL Total Protein (6.3-8.2) g/dL Albumin (3.5-5.0) g/dL TSH (0.465-4.680) mIU/L Free T4 (0.78-2.19) ng/dL Influenza Type A (PCR) (Not Detectd) Influenza Type B (PCR) (Not Detectd) RSV (PCR) (Not Detectd) SARS-CoV-2 (PCR) (Not Detectd) 05/30/22 05/30/22 05/30/22 Range/Units 20:06 20:06 20:24 WBC (3.8-10.6) k/uL RBC (4.30-5.90) m/uL Hgb (13.0-17.5) gm/dL Hct (39.0-53.0) % MCV (80.0-100.0) fL MCH (25.0-35.0) pg MCHC (31.0-37.0) g/dL RDW (11.5-15.5) % Plt Count (150-450) k/uL MPV Neutrophils % % Lymphocytes % % Monocytes % % Eosinophils % % Basophils % % Neutrophils # (1.3-7.7) k/uL Lymphocytes # (1.0-4.8) k/uL Monocytes # (0-1.0) k/uL Eosinophils # (0-0.7) k/uL Basophils # (0-0.2) k/uL PT (9.0-12.0) sec INR (<1.2) Sample Site ABG pH (7.35-7.45) ABG pCO2 (35-45) mmHg ABG pO2 (83-108) mmHg ABG HCO3 (21-25) mmol/L ABG Total CO2 (19-24) mmol/L ABG O2 Saturation (94-97) % ABG Base Excess mmol/L Pritesh Test FiO2 % Sodium 139 (137-145) mmol/L Potassium 3.9 (3.5-5.1) mmol/L Chloride 90 L (98-107) mmol/L Carbon Dioxide 42 H* (22-30) mmol/L Anion Gap 7 mmol/L BUN 36 H (9-20) mg/dL Creatinine 2.35 H (0.66-1.25) mg/dL Est GFR (CKD-EPI)AfAm 30 (>60 ml/min/1.73 sqM) Est GFR (CKD-EPI)NonAf 26 (>60 ml/min/1.73 sqM) Glucose 206 H (74-99) mg/dL POC Glucose (mg/dL) (70-110) mg/dL POC Glu Process Manufacturing Engineer ID Lactic Ac Sepsis Rflx Plasma Lactic Acid Fabiano 5.1 H* (0.7-2.0) mmol/L Calcium 8.7 (8.4-10.2) mg/dL Magnesium 2.0 (1.6-2.3) mg/dL Total Bilirubin 0.4 (0.2-1.3) mg/dL AST 23 (17-59) U/L ALT 23 (4-49) U/L Alkaline Phosphatase 100 (38-126) U/L Troponin I <0.012 (0.000-0.034) ng/mL Total Protein 6.6 (6.3-8.2) g/dL Albumin 3.9 (3.5-5.0) g/dL TSH 0.071 L (0.465-4.680) mIU/L Free T4 1.41 (0.78-2.19) ng/dL Influenza Type A (PCR) (Not Detectd) Influenza Type B (PCR) (Not Detectd) RSV (PCR) (Not Detectd) SARS-CoV-2 (PCR) (Not Detectd) 05/30/22 05/30/22 05/30/22 Range/Units 20:29 21:06 21:15 WBC (3.8-10.6) k/uL RBC (4.30-5.90) m/uL Hgb (13.0-17.5) gm/dL Hct (39.0-53.0) % MCV (80.0-100.0) fL MCH (25.0-35.0) pg MCHC (31.0-37.0) g/dL RDW (11.5-15.5) % Plt Count (150-450) k/uL MPV Neutrophils % % Lymphocytes % % Monocytes % % Eosinophils % % Basophils % % Neutrophils # (1.3-7.7) k/uL Lymphocytes # (1.0-4.8) k/uL Monocytes # (0-1.0) k/uL Eosinophils # (0-0.7) k/uL Basophils # (0-0.2) k/uL PT (9.0-12.0) sec INR (<1.2) Sample Site Right Radial ABG pH 7.42 (7.35-7.45) ABG pCO2 64 H (35-45) mmHg ABG pO2 83 (83-108) mmHg ABG HCO3 41 H* (21-25) mmol/L ABG Total CO2 43 H (19-24) mmol/L ABG O2 Saturation 96.4 (94-97) % ABG Base Excess 16.6 mmol/L Pritesh Test Yes FiO2 40 % Sodium (137-145) mmol/L Potassium (3.5-5.1) mmol/L Chloride (98-107) mmol/L Carbon Dioxide (22-30) mmol/L Anion Gap mmol/L BUN (9-20) mg/dL Creatinine (0.66-1.25) mg/dL Est GFR (CKD-EPI)AfAm (>60 ml/min/1.73 sqM) Est GFR (CKD-EPI)NonAf (>60 ml/min/1.73 sqM) Glucose (74-99) mg/dL POC Glucose (mg/dL) (70-110) mg/dL POC Glu Process Manufacturing Engineer ID Lactic Ac Sepsis Rflx Y Plasma Lactic Acid Fabiano (0.7-2.0) mmol/L Calcium (8.4-10.2) mg/dL Magnesium (1.6-2.3) mg/dL Total Bilirubin (0.2-1.3) mg/dL AST (17-59) U/L ALT (4-49) U/L Alkaline Phosphatase (38-126) U/L Troponin I (0.000-0.034) ng/mL Total Protein (6.3-8.2) g/dL Albumin (3.5-5.0) g/dL TSH (0.465-4.680) mIU/L Free T4 (0.78-2.19) ng/dL Influenza Type A (PCR) Not Detected (Not Detectd) Influenza Type B (PCR) Not Detected (Not Detectd) RSV (PCR) Not Detected (Not Detectd) SARS-CoV-2 (PCR) Not Detected (Not Detectd) - Radiology Data Radiology results: report reviewed, image reviewed Disposition Clinical Impression: OBDULIO (acute kidney injury), Tremor, Lactic acid increased Disposition: ADMITTED IP TO THIS HOSP
--- NOTE | 2022-05-30 20:45 | XR ---
EXAMINATION TYPE: XR chest 2V DATE OF EXAM: 05/30/2022 COMPARISON: 11/15/2021 HISTORY: Short of breath TECHNIQUE: 2 view FINDINGS: There is no heart failure nor confluent pneumonic infiltrate. Costophrenic angles are clear . There are no hilar masses. The bony thorax is intact. There are chest leads. IMPRESSION: No active cardiopulmonary disease. Normal heart. There is clearing of the small right ple ural effusion compared to the old exam.
[2022-05-30 20:49] LABS: ALT 23 U/L (4-49); AST 23 U/L (17-59); African American GFR (CKD) 30 (>60 ml/min/1.73 sqM); Albumin 3.9 g/dL (3.5-5.0); Alkaline Phosphatase 100 U/L (38-126); Blood Urea Nitrogen 36 mg/dL (9-20); Calcium 8.7 mg/dL (8.4-10.2); Chloride 90 mmol/L (98-107); Glucose 206 mg/dL (74-99); Non-African American GFR(CKD) 26 (>60 ml/min/1.73 sqM); Potassium 3.9 mmol/L (3.5-5.1); Sodium 139 mmol/L (137-145); Total Bilirubin 0.4 mg/dL (0.2-1.3); Total Protein 6.6 g/dL (6.3-8.2)
[2022-05-30 20:53] LABS: INR 0.9 (<1.2); Prothrombin Time 9.8 sec (9.0-12.0)
[2022-05-30 20:55] LABS: Anion Gap 7 mmol/L
[2022-05-30 21:04] LABS: Carbon Dioxide 42 mmol/L (22-30)
[2022-05-30] MEDS ORDERED: SODIUM CHLORIDE 0.9% 1,000 ML IV STA (21:11)
[2022-05-30 21:23] LABS: ABG Base Excess 16.6 mmol/L; ABG Oxygen Saturation 96.4 % (94-97); ABG PCO2 64 mmHg (35-45); ABG PH 7.42 (7.35-7.45); ABG PO2 83 mmHg (83-108); ABG TCO2 43 mmol/L (19-24); Allen Test Performed? Yes
[2022-05-30 21:34] LABS: ABG HCO3 41 mmol/L (21-25)
--- NOTE | 2022-05-30 21:39 | CT ---
EXAMINATION TYPE: CT brain wo con DATE OF EXAM: 05/30/2022 COMPARISON: 08/03/2017 HISTORY: Acute onset tremors, dizziness CT DLP: 1173.4 mGycm Automated exposure control for dose reduction was used. Images obtained of the brain without contrast. Ventricles have normal size. There is no mass effect or midline shift. No sign of intracranial hemorr sara. There is mild cerebral atrophy. The calvarium is intact. There is normal aeration of the mastoi d sinuses. No evidence of cerebral edema. IMPRESSION: Mild atrophy. No acute intracranial abnormality. No change.
[2022-05-30] MEDS ORDERED: ONDANSETRON 4 MG/2 ML VIAL IVP PRN (22:21)
[2022-05-30] MEDS ORDERED: NALOXONE 0.4 MG/ML 1 ML VIAL IV PRN (22:21)
[2022-05-30] MEDS ORDERED: HYDROcodone/APAP 5-325MG 1 EACH TAB PO PRN (22:21)
[2022-05-30 22:37] LABS: T4, Free (Free Thyroxine) 1.41 ng/dL (0.78-2.19)
[2022-05-31] MEDS: SODIUM CHLORIDE 0.9% 1,000 ML IV SCH ×2 (00:57→11:18)
--- NOTE | 2022-05-31 02:44 | P.HPIM ---
History of Present Illness H&P Date: 05/30/22 Chief Complaint: tremors 76 year old male with afib on eliquis , COPD on 4 L oxygen , hypertension patient coming in with dizziness and tremors that got worse over the past few days, he reports tremors in bilateral upper extremities of over a month which has been gradually getting worse. today he started experiencing tremors over his lower extrmeities with bilateral leg tingling for which he decided to come in for evaluation. he denies any history of stroke, denies any headache, or difficulty with speech . 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 denies any head injury he also reports exercise intolerance with SOB with moderately heavy exertions. denies chest pain , orthopnea or leg edema blood work showed elevated creatinine OBDULIO, lactic acidosis , chronic hypercapnic respiratory failure, mild anemia patient denies illicit drugs , smoking or heavy alcohol Brain CT no acute pathology CXR no acute pathology Review of Systems Pertinent positives as noted in HPI. All other systems were reviewed and are negative Past Medical History Past Medical History: Atrial Fibrillation, Cancer, COPD, Eye Disorder, Hearing D isorder / Deafness, Hyperlipidemia, Hypertension, Osteoarthritis (OA) Additional Past Medical History / Comment(s): Emphysema (takes inhalers and uses oxygen at home). Hx Kidney Cancer in 2006, R nephrectomy.q Left eye detached retina. Wet Macular Degeneration right eye. Hx Melanoma on back. Bilateral hearing aid use, legally blind. History of Any Multi-Drug Resistant Organisms: None Reported Past Surgical History: Back Surgery Additional Past Surgical History / Comment(s): Right kidney removed. Left eye surgery X3 for detacted retina. Bilateral cataract surgery. Mohs surgery thoracic spine for melanoma. Past Anesthesia/Blood Transfusion Reactions: Previous Problems w/ Anesthesia Additional Past Anesthesia/Blood Transfusion Reaction / Comment(s): States low heart rate, light-headed and low BP X1 with anesthesia. "Got broke vocal cord and could not talk for 2 months after anesthesia one time." Past Psychological History: No Psychological Hx Reported Smoking Status: Former smoker Past Alcohol Use History: None Reported Past Drug Use History: None Reported - Past Family History Mother Family Medical History: Cancer Additional Family Medical History / Comment(s): Brain Cancer. Father Family Medical History: CVA/TIA Medications and Allergies Home Medications Medication Instructions Recorded Confirmed Type Vit C/E/Zn/Coppr/Lutein/Zeaxan 1 cap PO BID 08/03/17 11/15/21 History [Preservision Areds 2 Softgel] Albuterol Sulfate [Proair Hfa] 2 puff INHALATION RT-Q6H PRN 02/23/19 11/15/21 History Escitalopram [Lexapro] 10 mg PO DAILY 11/25/20 11/15/21 History Apixaban [Eliquis] 5 mg PO BID 30 Days #60 tab 11/26/20 11/15/21 Rx Amiodarone [Cordarone] 200 mg PO DAILY 12/02/20 11/15/21 History Albuterol Nebulized [Ventolin 2.5 mg INHALATION RT-TID PRN 01/17/21 11/15/21 History Nebulized] Roflumilast [Daliresp] 500 mcg PO DAILY 01/17/21 11/15/21 History Tiotropium 2.5 Mcg/Puff [Spiriva 2 puff INHALATION RT-DAILY 01/17/21 11/15/21 History Respimat 2.5 Mcg] Potassium Chloride ER [K-Dur 20] 20 meq PO DAILY #30 tab 01/26/21 11/15/21 Rx Bumetanide [BUMEX] 2 mg PO BID 08/04/21 11/15/21 History Dextran/Hypromellose/Glycerin 1 drop BOTH EYES QID 08/04/21 11/15/21 History [Genteal Tears 0.1%-0.2%-0.3%] Loratadine 10 mg PO DAILY 08/04/21 11/15/21 History Rosuvastatin [Crestor] 10 mg PO DAILY 08/04/21 11/15/21 History predniSONE 5 mg PO DAILY #0 08/06/21 11/15/21 Rx Ammonium Lactate Cream [Lac-Hydrin 1 applic TOPICAL BID 11/15/21 11/15/21 History 12% Cream] Digoxin [Lanoxin] 125 mcg PO DAILY 11/15/21 11/15/21 History Famotidine [Pepcid] 20 mg PO BID 11/15/21 11/15/21 History Fluticasone Propion/Salmeterol 1 puff INHALATION RT-BID 11/15/21 11/15/21 History [Wixela 500-50 Inhub] Gabapentin [Neurontin] 400 mg PO BID 11/15/21 11/15/21 History Metoprolol Tartrate [Lopressor] 12.5 mg PO BID 11/15/21 11/15/21 History Rosuvastatin [Crestor] 10 mg PO DAILY 11/15/21 11/15/21 History traZODone HCL [Desyrel] 50 mg PO HS 11/15/21 11/15/21 History methylPREDNISolone Dose Pack 4 mg PO DIRECTED #1 packet 11/18/21 Rx [Medrol Dose Pack] Allergies Allergy/AdvReac Type Severity Reaction Status Date / Time atorvastatin [From Lipitor] Allergy Per Verified 11/15/21 12:10 [facility] Physical Exam Vitals: Vital Signs Temp Pulse Resp BP Pulse Ox 05/30/22 21:24 85 05/30/22 21:14 84 05/30/22 19:48 98.4 F 87 22 125/62 92 L Intake and Output 05/30/22 05/30/22 05/30/22 06:59 14:59 22:59 Other: Weight 113.398 kg Constitutional: No acute distress, conversant, pleasant Eyes: Anicteric sclerae, moist conjunctiva, Pupils equal round reactive to light ENMT: NC/AT Oropharynx clear, no erythema, or exudates Neck: Supple, no masses, or JVD No carotid bruits No thyromegaly Lungs: Clear to auscultation Clear to percussion Normal respiratory effort, no accessory muscle use Cardiovascular: Heart regular in rate and rhythm, No murmurs, gallops, or rubs No peripheral edema Abdominal: Soft Nontender, no guarding, rebound or rigidity Abdomen moving with respiration Normoactive bowel sounds No hepatomegaly, No splenomegaly No palpable mass No abdominal wall hernia noted Skin: Normal temperature, tone, texture, turgor No induration No subcutaneous nodules No rash, lesions No ulcers Extremities: No digital cyanosis No clubbing Pedal pulses intact and symmetrical Radial pulses intact and symmetrical No calf tenderness Psychiatric: Alert and oriented to person, place and time Appropriate affect fair judgement Neuro Muscles Strength 5/5 in all 4 extremities Sensation to light touch grossly present throughout Cranial nerves II-XII grossly intact Lymphatics: no palpable cervical or supraclavicular lymph nodes Results CBC & Chem 7: 05/30/22 20:06 05/30/22 20:06 Labs: Abnormal Lab Results - Last 24 Hours (Table) 05/30/22 05/30/22 05/30/22 Range/Units 19:53 20:06 20:06 RBC 3.96 L (4.30-5.90) m/uL Hgb 12.0 L (13.0-17.5) gm/dL Hct 37.7 L (39.0-53.0) % Lymphocytes # 0.5 L (1.0-4.8) k/uL ABG pCO2 (35-45) mmHg ABG HCO3 (21-25) mmol/L ABG Total CO2 (19-24) mmol/L Chloride 90 L (98-107) mmol/L Carbon Dioxide 42 H* (22-30) mmol/L BUN 36 H (9-20) mg/dL Creatinine 2.35 H (0.66-1.25) mg/dL Glucose 206 H (74-99) mg/dL POC Glucose (mg/dL) 225 H (70-110) mg/dL Plasma Lactic Acid Fabiano (0.7-2.0) mmol/L TSH 0.071 L (0.465-4.680) mIU/L 05/30/22 05/30/22 Range/Units 20:24 21:15 RBC (4.30-5.90) m/uL Hgb (13.0-17.5) gm/dL Hct (39.0-53.0) % Lymphocytes # (1.0-4.8) k/uL ABG pCO2 64 H (35-45) mmHg ABG HCO3 41 H* (21-25) mmol/L ABG Total CO2 43 H (19-24) mmol/L Chloride (98-107) mmol/L Carbon Dioxide (22-30) mmol/L BUN (9-20) mg/dL Creatinine (0.66-1.25) mg/dL Glucose (74-99) mg/dL POC Glucose (mg/dL) (70-110) mg/dL Plasma Lactic Acid Fabiano 5.1 H* (0.7-2.0) mmol/L TSH (0.465-4.680) mIU/L Assessment and Plan Assessment: OBDULIO secondary pre renal azotemia and dehydration lactic acidosis monitor urine output IVF hydration with normal saline avoid nephrotoxic meds tele chronic hypercapnic respiratory failure resume inhalers / nebulizers resume home oxygen 4 L NC CXR no acute pathology essential tremors CT brain no acute pathology neuro checks fall precautions PT eval check brain MRI, patient report new onset tremors and tingling lower extremities afib on eliquis verify home meds COPD compensated resume home oxygen 4 L NC resume inhalers and nebulizers verify home medications full code DVT PPX on eliquis or aifb
[2022-05-31] MEDS: IPRATROPIUM-ALBUTEROL 3 ML NEB INHALATION PRN ×2 (07:53→15:54)
[2022-05-31] MEDS: APIXABAN 5 MG TAB PO SCH ×2 (08:05→21:55)
[2022-05-31] MEDS ORDERED: METOPROLOL TARTRATE 12.5 MG TAB PO SCH (09:00)
[2022-05-31] MEDS ORDERED: FAMOTIDINE 20 MG TAB PO SCH (09:00)
[2022-05-31 09:37] LABS: Appearance,Urine Clear (Clear); Bilirubin,Urine Negative (Negative); Blood,Urine Negative (Negative); Color,Urine Yellow; Glucose,Urine (UA) Negative (Negative); Ketones,Urine Negative (Negative); Leukocyte Esterase,Urine Negative (Negative); Nitrite,Urine Negative (Negative); PH, Urine 5.5 (5.0-8.0); Protein,Urine Negative (Negative); Specific Gravity,Urine 1.017 (1.001-1.035); Urobilinogen,Urine <2.0 mg/dL (<2.0)
[2022-05-31 09:39] LABS: Amphetamine Screen,Urine Not Detected (NotDetected); Barbiturate Screen,Urine Not Detected (NotDetected); Benzodiazepines Screen,Urine Not Detected (NotDetected); Cocaine Screen,Urine Not Detected (NotDetected); Methadone Screen, Urine Not Detected (NotDetected); Opiate Screen,Urine Not Detected (NotDetected); Oxycodone Screen, Urine Not Detected (NotDetected); Phencyclidine Screen,Urine Not Detected (NotDetected); Tricyclic Antidepressant,Urine Not Detected (NotDetected); Urn Cannabinoid Scrn Detected (NotDetected)
--- NOTE | 2022-05-31 10:29 | P.PN ---
Subjective Progress Note Date: 05/31/22 Hospital course: Patient is a very pleasant 76-year-old male with a past medical history of COPD with chronic hypercarbic and hypoxic respiratory failure home oxygen dependent on 4 L at all times, atrial fibrillation on anticoagulation with Eliquis, hypertension, hyperlipidemia, macular degeneration with left detached retina resulting in blindness, and history of renal cancer in 2006 with right nephrectomy. Recent presented to the emergency department on 05/30/22 with a chief complaint of new onset bilateral upper and lower extremities. Patient reported upper extremity tremors began approximately one month ago and progressively worsening and yesterday he started dropping objects due to inability to plastic boat buffer or hold them because of worsening upper extremity tremors and developed lower extremity tremors and tingling so he decided it was imperative to come in for further evaluation to find out what was going on. Patient denies any recent changes in his medications or medication doses. He underwent full evaluation in the emergency department. Labs completed and upon review CBC revealed normocytic anemia with hemoglobin of 12.0. Normal coagulation profile. BMP revealing elevated renal function and metabolic acidosis with chloride of 90, carbon dioxide of 42, anion gap of 7, BUN 36, and creatinine of 2.35 with GFR of 26 (baseline creatinine 1.5). Initial lactic acid elevated at 2.8. Liver profile unremarkable and troponin negative at less than 0.012. TSH was low at 0.071 but free T4 was normal findings at 1.41. EKG was completed showing normal sinus rhythm at 82 bpm with a right bundle branch block and with the exception of rate this is unchanged when compared to previous EKG completed 11/15/21 showing sinus bradycardia at 58 bpm with a right bundle branch block. CT brain without contrast was completed showing mild atrophy and negative for acute intercranial abnormality. Patient was admitted under our services with consultation to neurology. Troponins trended all negative at less than 0.012, < 0.012, and 0.013. Patient was given a 1 L bolus and repeat lactate normal at 1.5. Influenza A, influenza B, RSV, and Covid PCR were all negative. Urina lysis negative for blood, ketones, or infection. An urine drug screen positive for marijuana. Physical exam: Patient seen and fully evaluated at bedside this morning. Patient reports his tremors seem to have improved daily and has only noticed when he tries to picker an object. However patient states he has also not been out of bed to assess his lower extremities and attempt to walk. He denies having any headache, lightheadedness, dizziness, chest pain, palpitations, shortness of breath, or experiencing any numbness or focal weakness in his extremities. Patient's medical record was updated with pharmacy and reviewed with patient. Patient denies having any changes in home medication dosages are pink started on any new medications. Home medications reordered at this time. Awaiting repeat BNP and toxin level. MRI to be completed. Vital signs reviewed and stable. General: Nontoxic, no distress and appears stated age. Derm: Skin warm and dry, normal coloration for ethnicity. Head: Atraumatic, normocephalic and symmetric. Eyes: EOMs intact, no lid lag, and anicteric sclera Mouth: no lip lesions, mucus membranes moist Cardiovascular: regular rate and rhythm with normal S1S2, no murmur, positive posterior tibial pulses bilaterally, and cap refill < 2 seconds. Lungs: Respirations even, regular, and unlabored on room air. Lungs diminished, no rhonchi, no rales, no wheezing, and no accessory muscle usage. Abdominal: soft, nontender to palpation, no guarding, no appreciable organomegaly Ext: ROM intact. No gross muscle atrophy, no edema, no contractures Neuro: Speech clear, face symmetrical and CN II-XII grossly intact with no noted focal neuro deficits. GCS 15. Minimal tremors noted when patient attempted to picker a glass, otherwise no resting tremors noted at this time. Psych: Alert and oriented to person, place, time, and situation. Appropriate and pleasant affect. Assessment and Plan of Care: Acute kidney injury with history of right nephrectomy -Acute kidney injury believed to be secondary to dehydration and daily diuretic use with Bumex 2 mg twice daily -Urinalysis negative for blood, protein, or infection. -Hold nephrotoxic medications including Bumex and continue gentle IV fluid hydration. -We will repeat BMP if no improvement or worsening of renal function will order renal ultrasound and consult to nephrology at that time. -Continue bladder management and monitor for postvoid residuals. New-onset essential tremors -CT brain negative for acute intercranial process -MRI to be completed -Neuro checks -Neurology consult -Fall precautions -PT/OT -Tremors can be common adverse effect of amiodarone, patient reports tremors new-onset and denies any recent changes in medication at this time we will continue with daily scheduled dose. Chronic respiratory failure with hypercarbia Advanced COPD, not in acute exacerbation -Continue with daily home oxygen 4 L at all times. -DuoNeb's as needed for shortness of breath and/or wheezing -Continue daily Scheduled albuterol nebulizer treatments. -Continue daily phosphodiesterase4 inhibitor, Daliresp. Paroxysmal Atrial fibrillation -Continue daily antiarrhythmics with digoxin and amiodarone and anticoagulation with Eliquis. -Obtain digoxin level CODE STATUS: Full code DVT prophylaxis: Eliquis Discussed with: Patient and RN Anticipated discharge date: Clinical course to determine Anticipated discharge place: Home A total of 38 minutes was spent on the care of this complex patient more than 50% of the time was spent in counseling and care coordination. Padilla Pham NP rendered care for this patient independently, reviewed the findings and plan as documented in the note above. I did not physically speak with or examine the patient on this date. Objective - Vital Signs Vital signs: Vital Signs Temp 98.3 F 05/31/22 07:40 Pulse 76 05/31/22 08:00 Resp 20 05/31/22 07:40 BP 133/63 05/31/22 07:40 Pulse Ox 93 L 05/31/22 07:40 FiO2 Intake & Output 05/30/22 05/31/22 05/31/22 18:59 06:59 18:59 Weight 113.398 kg Other: # Voids 2 - Labs CBC & Chem 7: 05/30/22 20:06 05/31/22 10:35 Labs: Abnormal Lab Results - Last 24 Hours (Table) 05/30/22 05/30/22 05/30/22 Range/Units 19:53 20:06 20:06 RBC 3.96 L (4.30-5.90) m/uL Hgb 12.0 L (13.0-17.5) gm/dL Hct 37.7 L (39.0-53.0) % Lymphocytes # 0.5 L (1.0-4.8) k/uL ABG pCO2 (35-45) mmHg ABG HCO3 (21-25) mmol/L ABG Total CO2 (19-24) mmol/L Chloride 90 L (98-107) mmol/L Carbon Dioxide 42 H* (22-30) mmol/L BUN 36 H (9-20) mg/dL Creatinine 2.35 H (0.66-1.25) mg/dL Glucose 206 H (74-99) mg/dL POC Glucose (mg/dL) 225 H (70-110) mg/dL Plasma Lactic Acid Fabiano (0.7-2.0) mmol/L TSH 0.071 L (0.465-4.680) mIU/L U Marijuana (THC) Screen (NotDetected) 05/30/22 05/30/22 05/30/22 Range/Units 20:24 21:15 22:34 RBC (4.30-5.90) m/uL Hgb (13.0-17.5) gm/dL Hct (39.0-53.0) % Lymphocytes # (1.0-4.8) k/uL ABG pCO2 64 H (35-45) mmHg ABG HCO3 41 H* (21-25) mmol/L ABG Total CO2 43 H (19-24) mmol/L Chloride (98-107) mmol/L Carbon Dioxide (22-30) mmol/L BUN (9-20) mg/dL Creatinine (0.66-1.25) mg/dL Glucose (74-99) mg/dL POC Glucose (mg/dL) (70-110) mg/dL Plasma Lactic Acid Fabiano 5.1 H* 2.8 H* (0.7-2.0) mmol/L TSH (0.465-4.680) mIU/L U Marijuana (THC) Screen (NotDetected) 05/31/22 Range/Units 09:00 RBC (4.30-5.90) m/uL Hgb (13.0-17.5) gm/dL Hct (39.0-53.0) % Lymphocytes # (1.0-4.8) k/uL ABG pCO2 (35-45) mmHg ABG HCO3 (21-25) mmol/L ABG Total CO2 (19-24) mmol/L Chloride (98-107) mmol/L Carbon Dioxide (22-30) mmol/L BUN (9-20) mg/dL Creatinine (0.66-1.25) mg/dL Glucose (74-99) mg/dL POC Glucose (mg/dL) (70-110) mg/dL Plasma Lactic Acid Fabiano (0.7-2.0) mmol/L TSH (0.465-4.680) mIU/L U Marijuana (THC) Screen Detected H (NotDetected)
[2022-05-31] MEDS: NON FORMULARY DRUG (Roflumilast [Daliresp] 500 MCG Tablet) PO SCH (11:13)
[2022-05-31] MEDS: NON FORMULARY DRUG (Rosuvastatin 20 MG Tablet) PO SCH (11:13)
[2022-05-31] MEDS: DIGOXIN 125 MCG TAB PO SCH (11:15)
[2022-05-31] MEDS: ESCITALOPRAM 10 MG TAB PO SCH (11:15)
[2022-05-31] MEDS: AMIODARONE 200 MG TAB PO SCH (11:15)
[2022-05-31] MEDS: FERROUS SULFATE 325 MG TAB PO SCH (11:15)
[2022-05-31 11:25] LABS: African American GFR (CKD) 48 (>60 ml/min/1.73 sqM); Blood Urea Nitrogen 34 mg/dL (9-20); Calcium 8.4 mg/dL (8.4-10.2); Chloride 94 mmol/L (98-107); Glucose 107 mg/dL (74-99); Non-African American GFR(CKD) 42 (>60 ml/min/1.73 sqM); Potassium 3.7 mmol/L (3.5-5.1); Sodium 138 mmol/L (137-145)
[2022-05-31] MEDS: ALBUTEROL NEBULIZED 2.5 MG/3 ML INHALATION SCH ×3 (11:29→20:13)
[2022-05-31 11:32] LABS: Anion Gap 3 mmol/L
[2022-05-31 11:39] LABS: Carbon Dioxide 41 mmol/L (22-30)
[2022-05-31 11:50] LABS: Digoxin 0.6 ng/mL
[2022-06-01] MEDS: ALBUTEROL NEBULIZED 2.5 MG/3 ML INHALATION SCH ×5 (01:15→20:06)
[2022-06-01] MEDS: SODIUM CHLORIDE 0.9% 1,000 ML IV SCH ×2 (02:57→15:36)
--- NOTE | 2022-06-01 07:55 | P.CNNES ---
History of Present Illness Consult date: 05/31/22 Requesting physician: Padilla Pham Reason for Consult: bilateral upper and lower extremity tremors and difficulty holding objects History of Present Illness: Patient is a 76-year-old male with history of X tobacco use, COPD came to the hospital yesterday at 7:25 PM for dizziness and tremors. Patient tells me that he has bad shakes for about 2 days prior to arrival. Prior to that he does not have any history of tremors. Even his legs also shaking too. He can't eat, cannot write because of the shakes. Prior to the 2 days prior to arrival, he did not have any problem with the tremors. He feels that these tremors don't seem to settle down. Vital signs on arrival blood pressure 125/62, pulse rate 87 temperature 98.4. Blood test shows WBC 6.9 hemoglobin 12.0, platelets 176. PT/PTT normal. Sodium and potassium are normal, carbon dioxide 42, BUN 36, creatinine 2.35. Lactate. 5.1. Hepatic panel, troponin negative. TSH is decreased 0.071 and free T4 normal 1.41. Influenza screen, RSV and monae virus PCR negative. Urine drug screen positive for marijuana. UA negative. CT head revealed mild atrophy, no acute intracranial process. I personally reviewed CT head, and agree with the findings. No acute process. Visualized paranasal sinuses reveal some opacification of the ethmoid air cells. Other sinuses are clear. External auditory canal appears clear. EKG shows sinus rhythm. Chest x-ray showed no active cardiac or disease. Normal heart. There is clearing of the small right pleural effusion compared to old exam. Current medications include Lexapro 10 mg, Eliquis 5 mg twice a day, amiodarone 200 mg daily, Daliresp, albuterol, potassium, Bumex, prednisone 5 mg daily, Crestor 10 mg daily, digoxin 125 mg daily, Pepcid, ferrous sulfate. Patient had a previous MRA of the brain without and MRA of the neck with and without contrast were normal on 08/04/2017. MRI of the brain from 08/04/2017 performed for dizziness showed age-related changes. No acute process. Patient has smoked 1 pack per day for about 50-55 years, quit 2 years ago. Patient drinks 4 beers every other day, sometimes 5 beers on the weekend. Denies any clear use. The last drink was yesterday while watching football. Review of Systems Constitutional: Denies chills, Denies fever Eyes: denies blurred vision, denies pain Ears: deny: ear discharge, earache Ears, nose, mouth and throat: Reports vertigo, Denies headache, Denies sore throat Cardiovascular: Reports shortness of breath, Denies chest pain Respiratory: Reports cough, Reports home oxygen, Reports wheezing Gastrointestinal: Denies abdominal pain, Denies diarrhea, Denies nausea, Denies vomiting Musculoskeletal: Denies myalgias Integumentary: Denies pruritus, Denies rash Neurological: Reports as per HPI Psychiatric: Denies anxiety, Denies depression Endocrine: Denies fatigue, Denies weight change Past Medical History Past Medical History: Atrial Fibrillation, Cancer, COPD, Eye Disorder, Hearing Disorder / Deafness, Hyperlipidemia, Hypertension, Osteoarthritis (OA) Additional Past Medical History / Comment(s): Emphysema (takes inhalers and uses oxygen at home). Hx Kidney Cancer in 2006, R nephrectomy.q Left eye detached retina. Wet Macular Degeneration right eye. Hx Melanoma on back. Bilateral hearing aid use, legally blind. History of Any Multi-Drug Resistant Organisms: None Reported Past Surgical History: Back Surgery Additional Past Surgical History / Comment(s): Right kidney removed. Left eye surgery X3 for detacted retina. Bilateral cataract surgery. Mohs surgery thoracic spine for melanoma. Past Anesthesia/Blood Transfusion Reactions: Previous Problems w/ Anesthesia Additional Past Anesthesia/Blood Transfusion Reaction / Comment(s): States low heart rate, light-headed and low BP X1 with anesthesia. "Got broke vocal cord and could not talk for 2 months after anesthesia one time." Past Psychological History: No Psychological Hx Reported Smoking Status: Former smoker Past Alcohol Use History: None Reported Past Drug Use History: None Reported - Past Family History Mother Family Medical History: Cancer Additional Family Medical History / Comment(s): Brain Cancer. Father Family Medical History: CVA/TIA Medications and Allergies Home Medications Medication Instructions Recorded Confirmed Type Vit C/E/Zn/Coppr/Lutein/Zeaxan 1 cap PO BID 08/03/17 05/31/22 History [Preservision Areds 2 Softgel] Escitalopram [Lexapro] 10 mg PO DAILY 11/25/20 05/31/22 History Apixaban [Eliquis] 5 mg PO BID 30 Days #60 tab 11/26/20 05/31/22 Rx Amiodarone [Cordarone] 200 mg PO DAILY 12/02/20 05/31/22 History Albuterol Nebulized [Ventolin 2.5 mg INHALATION RT-Q4H 01/17/21 05/31/22 History Nebulized] Roflumilast [Daliresp] 500 mcg PO DAILY 01/17/21 05/31/22 History Potassium Chloride ER [K-Dur 20] 20 meq PO DAILY #30 tab 01/26/21 05/31/22 Rx Bumetanide [BUMEX] 2 mg PO BID 08/04/21 05/31/22 History predniSONE 5 mg PO DAILY #0 08/06/21 05/31/22 Rx Digoxin [Lanoxin] 125 mcg PO DAILY 11/15/21 05/31/22 History Famotidine [Pepcid] 20 mg PO DAILY 11/15/21 05/31/22 History Rosuvastatin [Crestor] 10 mg PO DAILY 11/15/21 05/31/22 History Ferrous Sulfate [Feosol] 325 mg PO DAILY 05/31/22 05/31/22 History Ipratropium [place] 0.06%Nasal 1 spray EA NOSTRIL BID 05/31/22 05/31/22 History [Atrovent Nasal 0.06%] Allergies Allergy/AdvReac Type Severity Reaction Status Date / Time atorvastatin [From Lipitor] Allergy Per Verified 05/31/22 08:57 [facility] Physical Examination - Vital Signs Vital Signs: Vital Signs Temp Pulse Pulse Resp BP BP Pulse Ox 05/31/22 11:41 80 05/31/22 11:30 72 05/31/22 08:00 76 05/31/22 07:55 78 05/31/22 07:40 98.3 F 70 20 133/63 93 L 05/31/22 02:00 98.2 F 75 18 132/80 95 05/31/22 00:06 88 15 133/87 99 05/30/22 21:24 85 05/30/22 21:14 84 05/30/22 19:48 98.4 F 87 22 125/62 92 L Intake and Output 05/30/22 05/31/22 05/31/22 22:59 06:59 14:59 Other: # Voids 2 Weight 113.398 kg 113.398 kg Patient is an elderly male, very pleasant, in no acute distress. Patient is alert awake oriented to time place and person. Speech and language functions are normal. Patient can name and repeat very well. No aphasia or dysarthria. Attention, concentration and fund of knowledge is adequate. On cranial nerve examination, pupils are equal, round and reacting to light, visual farah are full on confrontation, with no neglect on double simultaneous stimulation. Extraocular muscles are intact with no nystagmus. Face is symmetr ic, tongue protrudes to the midline. Palatal elevation and sensation normal, hearing and shoulder shrug normal, facial sensation normal. On muscle strength testing, there is no pronator drift and the strength is normal in arms and legs distally and proximally. Deep tendon reflexes are symmetric biceps 2, brachioradialis 2, knees 2, ankles 1 and plantars are downgoing bilaterally. Sensory to touch is equal with no neglect on double simultaneous stimulation. Cerebellar function showed no ataxia for [id number] testing. No dysdiadochokinesia. Patient has mild to moderate tremors of outstretched hands, and also for [id number] testing. No tremors at rest. No ataxia for [id number] testing on either side. Tone and bulk of muscles normal. Gait deferred.. On general examination, there is no carotid bruit or murmur, S1-S2 audible. Chest is clear on consultation. Abdomen is soft nontender. No organomegaly, bowel sounds present. Peripheral pulses are present. Very mild peripheral edema. Results - Laboratory Findings CBC and BMP: 05/30/22 20:06 05/31/22 10:35 Abnormal Lab Findings: Abnormal Labs 05/30/22 05/30/22 05/30/22 19:53 20:06 20:06 RBC 3.96 L Hgb 12.0 L Hct 37.7 L Lymphocytes # 0.5 L ABG pCO2 ABG HCO3 ABG Total CO2 Chloride 90 L Carbon Dioxide 42 H* BUN 36 H Creatinine 2.35 H Glucose 206 H POC Glucose (mg/dL) 225 H Plasma Lactic Acid Fabiano TSH 0.071 L U Marijuana (THC) Screen 05/30/22 05/30/22 05/30/22 20:24 21:15 22:34 RBC Hgb Hct Lymphocytes # ABG pCO2 64 H ABG HCO3 41 H* ABG Total CO2 43 H Chloride Carbon Dioxide BUN Creatinine Glucose POC Glucose (mg/dL) Plasma Lactic Acid Fabiano 5.1 H* 2.8 H* TSH U Marijuana (THC) Screen 05/31/22 05/31/22 09:00 10:35 RBC Hgb Hct Lymphocytes # ABG pCO2 ABG HCO3 ABG Total CO2 Chloride 94 L Carbon Dioxide 41 H* BUN 34 H Creatinine 1.59 H Glucose 107 H POC Glucose (mg/dL) Plasma Lactic Acid Fabiano TSH U Marijuana (THC) Screen Detected H Assessment and Plan Assessment: * New onset tremors, likely metabolic tremors from acute (on chronic) metabolic dysfunction. Reasons multifactorial as mentioned below. * Acute kidney injury, improving * Abnormal thyroid functions, rule out mild hyperthyroidism. * Chronic hypoxic and hypercapnic respiratory failure. * COPD, home oxygen dependent at 4 L * Chronic CO2 retainer * Atrial fibrillation, on anticoagulation with Eliquis * X tobacco use * Hypertension * Hyperlipidemia * Macular degeneration * History of renal cancer in 2006 with right nephrectomy * Marijuana use Plan: * Patient's tremors are likely metabolic in nature. Patient states since he is in the hospital, the tremors are improving. Patient denies any history of tremors prior to few days before admission. Therefore doubt essential tremors. * Medical management of various cardiopulmonary and renal conditions as per IM. * Tremors can be enhanced by hyperthyroidism. Patient's TSH is low 0.071 ( 0.465-4.680), with normal free T4 1.41. Patient may have some component of hyperthyroidism. Suggest optimizing thyroid functions. * Check B12, folate. * Neurology will follow clinically. Thank you for the consult.
[2022-06-01] MEDS: AMIODARONE 200 MG TAB PO SCH (08:05)
[2022-06-01] MEDS: FAMOTIDINE 20 MG TAB PO SCH (08:06)
[2022-06-01] MEDS: DIGOXIN 125 MCG TAB PO SCH (08:07)
[2022-06-01] MEDS: ESCITALOPRAM 10 MG TAB PO SCH (08:07)
[2022-06-01] MEDS: FERROUS SULFATE 325 MG TAB PO SCH (08:08)
[2022-06-01] MEDS: APIXABAN 5 MG TAB PO SCH ×2 (08:08→21:09)
[2022-06-01] MEDS: NON FORMULARY DRUG (Rosuvastatin 20 MG Tablet) PO SCH (08:13)
[2022-06-01] MEDS: NON FORMULARY DRUG (Roflumilast [Daliresp] 500 MCG Tablet) PO SCH (08:13)
[2022-06-01] MEDS: ACETAMINOPHEN TAB 325 MG TAB PO PRN ×2 (08:35→22:02)
[2022-06-01 12:18] LABS: African American GFR (CKD) 77 (>60 ml/min/1.73 sqM); Blood Urea Nitrogen 18 mg/dL (9-20); Calcium 8.6 mg/dL (8.4-10.2); Chloride 94 mmol/L (98-107); Glucose 134 mg/dL (74-99); Magnesium 2.3 mg/dL (1.6-2.3); Non-African American GFR(CKD) 66 (>60 ml/min/1.73 sqM); Potassium 3.8 mmol/L (3.5-5.1); Sodium 138 mmol/L (137-145)
[2022-06-01 12:25] LABS: Anion Gap 1 mmol/L
[2022-06-01 12:34] LABS: Carbon Dioxide 43 mmol/L (22-30)
--- NOTE | 2022-06-01 14:41 | MR ---
EXAMINATION TYPE: MR brain wo con DATE OF EXAM: 06/01/2022 COMPARISON: Prior MRI brain August 04, 2017. CT brain 2 days ago. HISTORY: Tingling and tremors in lower extremities and right arm. TECHNIQUE: Multiplanar, multisequence imaging of the brain and brainstem is performed without IV cont rast. FINDINGS: Exam slightly suboptimal as patient has difficulty holding still. Diffusion weighted images demonstrate no evidence of a recent infarct or other diffusion abnormality. Mild to moderate ventricular and sulcal prominence is redemonstrated. Scattered areas of T2 hyperinte nsity in the deep and periventricular white matter are again seen. T2 Star-weighted images show singl e focus in the high posterior right frontal lobe axial image [id number] without calcification on recent CT s uspicious for focal old injury or hemosiderin deposition at this level. Midline structures demonstrate normal morphology. The craniocervical junction appears within normal limits. Normal vascular flow voids are present. Scleral buckle left globe is redemonstrated. Patchy m ucosal thickening and fluid in the bilateral ethmoid sinuses. Mild mucosal thickening in inferior rig ht maxillary sinus is noted. IMPRESSION: There is mild to moderate diffuse cerebral atrophy and chronic small vessel ischemic dugan ge redemonstrated. No MRI evidence for recent infarct. No significant change from prior MRI.
--- NOTE | 2022-06-01 15:14 | P.PN ---
Subjective Progress Note Date: 06/01/22 Hospital course: Patient is a very pleasant 76-year-old male with a past medical history of COPD with chronic hypercarbic and hypoxic respiratory failure home oxygen dependent on 4 L at all times, atrial fibrillation on anticoagulation with Eliquis, hypertension, hyperlipidemia, macular degeneration with left detached retina resulting in blindness, and history of renal cancer in 2006 with right nephrectomy. Recent presented to the emergency department on 05/30/22 with a chief complaint of new onset bilateral upper and lower extremities. 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 Patient denies any recent changes in his medications or medication doses. He underwent full evaluation in the emergency department. Labs completed and upon review CBC revealed normocytic anemia with hemoglobin of 12.0. Normal coagulation profile. BMP revealing elevated renal function and metabolic acidosis with chloride of 90, carbon dioxide of 42, anion gap of 7, BUN 36, and creatinine of 2.35 with GFR of 26 (baseline creatinine 1.5). Initial lactic acid elevated at 2.8. Liver profile unremarkable and troponin negative at less than 0.012. TSH was low at 0.071 but free T4 was normal findings at 1.41. EKG was completed showing normal sinus rhythm at 82 bpm with a right bundle branch block and with the exception of rate this is unchanged when compared to previous EKG completed 11/15/21 showing sinus bradycardia at 58 bpm with a right bundle branch block. CT brain without contrast was completed showing mild atrophy and negative for acute intercranial abnormality. Patient was admitted under our services with consultation to neurology. Troponins trended all negative at less than 0.012, < 0.012, and 0.013. Patient was given a 1 L bolus and repeat lactate normal at 1.5. Influenza A, influenza B, RSV, and Covid PCR were all negative. Urinalysis negative for blood, ketones, or infection. Urine drug screen positive for marijuana. Patient has been admitted under our services with consultation to neurology. Physical exam: Patient seen and fully evaluated at bedside this morning. Pt continues to have mild tremors with extension but absent with rest and reports feeling "tired and off". He denies having any headache, lightheadedness, dizziness, chest pain, palpitations, shortness of breath, or experiencing any numbness/tingling/focal weakness in his extremities. Morning labs reviewed and stable showing resolution of previous acute kidney injury with renal function improving from initial BUN of 36, creatinine 2.35, and GFR of 26 and now BUN of 18, creatinine 1.08, and GFR of 66. Patient continues to be hypercarbic with carbon dioxide of 43, this is chronic with baseline carbon dioxide around 40. Patient to continue with daily oxygen supplementation and nightly BiPAP. Awaiting MRI to be completed. Vital signs reviewed and stable. General: Nontoxic, no distress and appears stated age. Derm: Skin warm and dry, normal coloration for ethnicity. Head: Atraumatic, normocephalic and symmetric. Eyes: EOMs intact, no lid lag, and anicteric sclera Mouth: no lip lesions, mucus membranes moist Cardiovascular: regular rate and rhythm with normal S1S2, no murmur, positive posterior tibial pulses bilaterally, and cap refill < 2 seconds. Lungs: Respirations even, regular, and unlabored on room air. Lungs diminished, no rhonchi, no rales, no wheezing, and no accessory muscle usage. Abdominal: soft, nontender to palpation, no guarding, no appreciable organomegaly Ext: ROM intact. No gross muscle atrophy, no edema, no contractures Neuro: Speech clear, face symmetrical and CN II-XII grossly intact with no noted focal neuro deficits. GCS 15. Minimal tremors noted when patient attempted to pepper picker a glass, otherwise no resting tremors noted at this time. Psych: Alert and oriented to person, place, time, and situation. Appropriate and pleasant affect. Assessment and Plan of Care: Acute kidney injury with history of right nephrectomy, resolved after IV fluid hydration. -Acute kidney injury believed to be secondary to dehydration and daily diuretic use with Bumex 2 mg twice daily -Urinalysis negative for blood, protein, or infection. -Hold nephrotoxic medications including Bumex. -Patient received IV hydration resulting in resolution of acute kidney injury. New-onset essential tremors -CT brain negative for acute intercranial process -Awaiting MRI to be completed -Neuro checks -Neurology following, stating new-onset tremors likely metabolic tremors from acute on chronic metabolic dysfunction -Fall precautions -PT/OT -Tremors can be common adverse effect of amiodarone, patient reports tremors new-onset and denies any recent changes in medication at this time we will continue with daily scheduled dose. Chronic respiratory failure with hypercarbia Advanced COPD, not in acute exacerbation -Continue with daily home oxygen 4 L at all time and BiPAP nightly. -DuoNeb's as needed for shortness of breath and/or wheezing -Continue daily Scheduled albuterol nebulizer treatments. -Continue daily phosphodiesterase4 inhibitor, Daliresp. Paroxysmal Atrial fibrillation -Continue daily antiarrhythmics with digoxin and amiodarone and anticoagulation with Eliquis. -Digoxin level 0.6. Abnormal TSH 0.071 and free T4 1 0.41. Highly doubtful subclinical hyperthyroidism as patient is free from any other symptoms including tachycardia, diaphoresis, diarrhea, and has no noted tremors at rest. Hold all vitamins especially Preservision Areds (due to containing biotin which results in abnormal TSH) and have outpatient repeat TSH after 1 week. CODE STATUS: Full code DVT prophylaxis: Eliquis Discussed with: Patient and RN Anticipated discharge date: Clinical course to determine Anticipated discharge place: Home A total of 35 minutes was spent on the care of this complex patient more than 50% of the time was spent in counseling and care coordination. Padilla Pham NP rendered care for this patient independently, reviewed the findings and plan as documented in the note above. I did not physically speak with or examine the patient on this date. Objective - Vital Signs Vital signs: Vital Signs Temp 98.0 F 06/01/22 08:00 Pulse 76 06/01/22 08:32 Resp 18 06/01/22 08:00 BP 130/67 06/01/22 08:00 Pulse Ox 96 06/01/22 08:00 FiO2 Intake & Output 05/31/22 06/01/22 06/01/22 18:59 06:59 18:59 Intake Total 200 900 Output Total 300 600 Balance -100 300 Intake: Intake, IV Titration 900 Amount Sodium Chloride 0.9% 1, 900 000 ml @ 75 mls/hr IV . [id number] ELKE Rx#:[id number] Oral 200 Output: Urine 300 300 Post Void Residual 300 Other: Voiding Method Toilet # Voids 3 4 # Bowel Movements 2 - Labs CBC & Chem 7: 05/30/22 20:06 06/01/22 09:45 Labs: Abnormal Lab Results - Last 24 Hours (Table) 05/31/22 05/31/22 Range/Units 09:00 10:35 Chloride 94 L (98-107) mmol/L Carbon Dioxide 41 H* (22-30) mmol/L BUN 34 H (9-20) mg/dL Creatinine 1.59 H (0.66-1.25) mg/dL Glucose 107 H (74-99) mg/dL U Marijuana (THC) Screen Detected H (NotDetected)
[2022-06-01] MEDS: Rosuvastatin 20 MG Tablet PO SCH (15:36)
[2022-06-01] MEDS: Roflumilast [Daliresp] 500 MCG Tablet PO SCH (15:37)
[2022-06-02] MEDS: ALBUTEROL NEBULIZED 2.5 MG/3 ML INHALATION SCH ×3 (00:48→09:22)
[2022-06-02] MEDS: ACETAMINOPHEN TAB 325 MG TAB PO PRN (04:32)
[2022-06-02] MEDS: SODIUM CHLORIDE 0.9% 1,000 ML IV SCH (04:32)
[2022-06-02 08:06] VITALS: BP 145/73; PULSE 74; RESP 18; TEMP 98.2
[2022-06-02] MEDS: APIXABAN 5 MG TAB PO SCH (09:38)
[2022-06-02] MEDS: FERROUS SULFATE 325 MG TAB PO SCH (09:39)
[2022-06-02] MEDS: AMIODARONE 200 MG TAB PO SCH (09:39)
[2022-06-02] MEDS: DIGOXIN 125 MCG TAB PO SCH (09:39)
[2022-06-02] MEDS: FAMOTIDINE 20 MG TAB PO SCH (09:39)
[2022-06-02] MEDS: ESCITALOPRAM 10 MG TAB PO SCH (09:39)
[2022-06-02] MEDS: Roflumilast [Daliresp] 500 MCG Tablet PO SCH (09:40)
[2022-06-02] MEDS: Rosuvastatin 20 MG Tablet PO SCH (09:40)
--- NOTE | 2022-06-02 10:11 | P.DS ---
Providers Date of admission: 05/30/22 22:22 Expected date of discharge: 06/02/22 Attending physician: Sherry Dudley MD Consults: 05/31/22 10:08 Consult Physician Routine Consulting Provider: Rosalie George Consult Reason/Comments: bilateral upper and lower extremity tremors and difficulty holding objects Do you want consulting provider notified?: Yes Primary care physician: [facility] Hospital Course: Discharge Diagnosis: Acute kidney injury with history of right nephrectomy, resolved after IV fluid hydration. New-onset essential tremors. CT brain negative for acute intercranial process. MRI revealing mild to moderate diffuse cerebral atrophy and chronic small vessel ischemic changes redemonstrated with no reported significant changes from prior MRI completed 08/04/17, Neurology evaluating, stating new-onset tremors likely metabolic tremors from acute on chronic metabolic dysfunction. Tremors also possibly secondary to daily albuterol and steroid use for treatment of chronic respiratory failure with advanced COPD. Chronic respiratory failure with hypercarbia Advanced COPD, not in acute exacerbation. Continue with daily home oxygen 2-4 L at all time and BiPAP nightly. Paroxysmal Atrial fibrillation. Continue daily antiarrhythmics with digoxin and amiodarone and anticoagulation with Eliquis. Digoxin level 0.6. Abnormal TSH. TSH 0.071 and free T4 1 0.41. Highly doubtful subclinical hyperthyroidism as patient is free from any other symptoms including tachyc ardia, diaphoresis, diarrhea, and has no noted tremors at rest. Patient was instructed to Hold all vitamins especially Preservision Areds (due to containing biotin which results in abnormal TSH) and have outpatient repeat TSH after 1 week. Hospital Course: Patient is a very pleasant 76-year-old male with a past medical history of COPD with chronic hypercarbic and hypoxic respiratory failure home oxygen dependent on 4 L at all times, atrial fibrillation on anticoagulation with Eliquis, hypertension, hyperlipidemia, macular degeneration with left detached retina resulting in blindness, and history of renal cancer in 2007 with right nephrectomy. Recent presented to the emergency department on 05/30/22 with a chief complaint of new onset bilateral upper and lower extremities. 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 Patient denies any recent changes in his medications or medication doses. He underwent full evaluation in the emergency department. Labs completed and upon review CBC revealed normocytic anemia with hemoglobin of 12.0. Normal coagulation profile. BMP revealing elevated renal function and metabolic acidosis with chloride of 90, carbon dioxide of 42, anion gap of 7, BUN 36, and creatinine of 2.35 with GFR of 26 (baseline creatinine 1.5). Initial lactic acid elevated at 2.8. Liver profile unremarkable and troponin negative at less than 0.012. TSH was low at 0.071 but free T4 was normal findings at 1.41. EKG was completed showing normal sinus rhythm at 82 bpm with a right bundle branch block and with the exception of rate this is unchanged when compared to previous EKG completed 11/15/21 showing sinus bradycardia at 58 bpm with a right bundle branch block. CT brain without contrast was completed showing mild atrophy and negative for acute intercranial abnormality. Patient was admitted under our services with consultation to neurology. Troponins trended all negative at less than 0.012, < 0.012, and 0.013. Patient was given a 1 L bolus and repeat lactate normal at 1. 5. Influenza A, influenza B, RSV, and Covid PCR were all negative. Urinalysis negative for blood, ketones, or infection. Urine drug screen positive for marijuana. Patient has been admitted under our services with consultation to neurology. MRI revealing mild to moderate diffuse cerebral atrophy and chronic small vessel ischemic changes redemonstrated with no reported significant changes from prior MRI completed 08/04/17. Neurology evaluating, stating new- onset tremors likely metabolic tremors from acute on chronic metabolic dysfunction. Tremors also possibly secondary to daily albuterol and steroid use for treatment of chronic respiratory failure with advanced COPD. also discussed with patient that he will need to follow up outpatient for repeat lab work for Abnormal TSH. TSH 0.071 and free T4 1 0.41. Highly doubtful subclinical hyperthyroidism as patient is free from any other symptoms including tachycardia, diaphoresis, diarrhea, and has no noted tremors at rest. Patient was instructed to Hold all vitamins especially Preservision Areds (due to containing biotin which results in abnormal TSH) and have outpatient repeat TSH after 1 week. Patient also restarted on Bumex however dose was decreased from 2 mg by mouth twice daily down to 1 mg by mouth twice daily and patient to have repeat BMP in 1 week to ensure stable renal function. Patient is free from any complaints this morning. Has had significant improvement in tremors. Medically stable for discharge at this time. Physical exam: Vital signs reviewed and stable. General: Nontoxic, no distress and appears stated age. Derm: Skin warm and dry, normal coloration for ethnicity. Head: Atraumatic, normocephalic and symmetric. Eyes: EOMs intact, no lid lag, and anicteric sclera Mouth: no lip lesions, mucus membranes moist Cardiovascular: regular rate and rhythm with normal S1S2, no murmur, positive posterior tibial pulses bilaterally, and cap refill < 2 seconds. Lungs: Respirations even, regular, and unlabored on room air. Lungs diminished, no rhonchi, no rales, no wheezing, and no accessory muscle usage. Abdominal: soft, nontender to palpation, no guarding, no appreciable organomegaly Ext: ROM intact. No gross muscle atrophy, no edema, no contractures Neuro: Speech clear, face symmetrical and CN II-XII grossly intact with no noted focal neuro deficits. GCS 15. Minimal tremors noted when patient attempted to nut picker a glass, otherwise no resting tremors noted at this time. Psych: Alert and oriented to person, place, time, and situation. Appropriate and pleasant affect. A total of 34 minutes of time were spent preparing this complex discharge summary. Pt was discharged on 06/02/22 at 9:59 AM Padilla Pham NP rendered care for this patient independently, reviewed the findings and plan as documented in the note above. I did not physically speak with or examine the patient on this date. Patient Condition at Discharge: Stable Plan - Discharge Summary New Discharge Prescriptions: New Bumetanide [Bumex] 1 mg PO BID 30 Days #60 tablet Melatonin 5 mg PO HS 30 Days #30 tablet diphenhydrAMINE [Benadryl] 50 mg PO HS PRN 30 Days #30 capsule PRN Reason: Insomnia Continue Escitalopram [Lexapro] 10 mg PO DAILY Apixaban [Eliquis] 5 mg PO BID 30 Days #60 tab Famotidine [Pepcid] 20 mg PO DAILY Amiodarone [Cordarone] 200 mg PO DAILY Roflumilast [Daliresp] 500 mcg PO DAILY Albuterol Nebulized [Ventolin Nebulized] 2.5 mg INHALATION RT-Q4H Potassium Chloride ER [K-Dur 20] 20 meq PO DAILY #30 tab predniSONE 5 mg PO DAILY #0 Rosuvastatin [Crestor] 10 mg PO DAILY Digoxin [Lanoxin] 125 mcg PO DAILY Ipratropium [place] 0.06%Nasal [Atrovent Nasal 0.06%] 1 spray EA NOSTRIL BID Ferrous Sulfate [Iron (65 MG Elemental)] 325 mg PO DAILY Discontinued Bumetanide [BUMEX] 2 mg PO BID No Action Vit C/E/Zn/Coppr/Lutein/Zeaxan [Preservision Areds 2 Softgel] 1 cap PO BID Discharge Medication List Vit C/E/Zn/Coppr/Lutein/Zeaxan [Preservision Areds 2 Softgel] 1 cap PO BID 08/03/17 [History] Escitalopram [Lexapro] 10 mg PO DAILY 11/25/20 [History] Apixaban [Eliquis] 5 mg PO BID 30 Days #60 tab 11/26/20 [Rx] Amiodarone [Cordarone] 200 mg PO DAILY 12/02/20 [History] Albuterol Nebulized [Ventolin Nebulized] 2.5 mg INHALATION RT-Q4H 01/17/21 [History] Roflumilast [Daliresp] 500 mcg PO DAILY 01/17/21 [History] Potassium Chloride ER [K-Dur 20] 20 meq PO DAILY #30 tab 01/26/21 [Rx] predniSONE 5 mg PO DAILY #0 08/06/21 [Rx] Digoxin [Lanoxin] 125 mcg PO DAILY 11/15/21 [History] Famotidine [Pepcid] 20 mg PO DAILY 11/15/21 [History] Rosuvastatin [Crestor] 10 mg PO DAILY 11/15/21 [History] Ferrous Sulfate [Iron (65 MG Elemental)] 325 mg PO DAILY 05/31/22 [History] Ipratropium [place] 0.06%Nasal [Atrovent Nasal 0.06%] 1 spray EA NOSTRIL BID 05/31/22 [History] Bumetanide [Bumex] 1 mg PO BID 30 Days #60 tablet 06/02/22 [Rx] Melatonin 5 mg PO HS 30 Days #30 tablet 06/02/22 [Rx] diphenhydrAMINE [Benadryl] 50 mg PO HS PRN 30 Days #30 capsule 06/02/22 [Rx] Follow up Appointment(s)/Referral(s): [facility],Clinic [Primary Care Provider] - 06/11/22 1:00 pm Ambulatory/Diagnostic Orders: Basic Metabolic Panel [LAB.AMB] Time Frame: 1 Week, Location: None Selected T4, Free (Free Thyroxine) [LAB.AMB] Location: None Selected TSH, 3rd Generation [LAB.AMB] Time Frame: 1 Week, Location: None Selected Patient Instructions/Handouts: Bumetanide (By mouth), Diphenhydramine (By mouth), Melatonin (By mouth), Tremors (DC) Activity/Diet/Wound Care/Special Instructions: Activity: As tolerated. Take breaks as needed. Diet: Heart healthy and carb consistent diet. Avoid salts, or foods with hidden salts such as canned or boxed foods and frozen dinners. Extra salt makes your heart work harder and traps the fluid in your body for longer. Ensure that you stay hydrated while taking your diuretic to prevent kidney injury. Special Instructions: Take all of your medications as directed and remember to keep all of your doctor's appointments and follow-up as needed. As we discussed, I'm going to have you hold all multivitamins including Preservision Areds (due to containing biotin which can result in abnormal TSH) and have outpatient repeat TSH after 1 week. You may resume taking your vitamin after labs are drawn. I also sent order for a drill and melatonin as requested for nighttime assistance with sleeping, please take 30 minutes prior to going to bed. If you do not find improvement again speak with her primary doctor as we discussed because there are other medication options available for you. Thank you for allowing us to participate in your care, it was truly a pleasure having you for our patient!!! Discharge Disposition: HOME SELF-CARE
--- NOTE | 2022-06-02 11:07 | P.PN ---
Subjective Progress Note Date: 06/01/22 Patient was seen for a follow-up. Denies any changes in condition. Continues to have tremors. Objective - Vital Signs Vital signs: Vital Signs Temp 98.2 F 06/02/22 07:55 Pulse 74 06/02/22 07:55 Resp 18 06/02/22 07:55 BP 145/73 06/02/22 07:55 Pulse Ox 92 L 06/02/22 07:55 FiO2 28 06/01/22 22:34 Intake & Output 06/01/22 06/02/22 06/02/22 18:59 06:59 18:59 Intake Total 200 240 Output Total 300 1650 Balance -100 -1650 240 Intake: Oral 200 240 Output: Urine 300 1650 Other: Voiding Method Toilet Toilet Urinal # Voids 1 1 # Bowel Movements 1 - Exam Mental status, speech and language functions are normal. Cranial nerves are normal. Muscle strength normal. Patient continues to have [id number] fine tremors of outstretched hands and also for [id number] testing bilaterally, left more than right. No tremors at rest. Tone and bulk of muscles normal. No parkinsonian features. - Labs CBC & Chem 7: 05/30/22 20:06 06/01/22 09:45 Labs: Abnormal Lab Results - Last 24 Hours (Table) 06/01/22 Range/Units 09:45 Chloride 94 L (98-107) mmol/L Carbon Dioxide 43 H* (22-30) mmol/L Glucose 134 H (74-99) mg/dL Assessment and Plan Assessment: * New onset tremors, likely metabolic tremors from acute (on chronic) metabolic dysfunction. Reasons multifactorial as mentioned below. * Acute kidney injury, improving * Abnormal thyroid functions, rule out mild hyperthyroidism. * Chronic hypoxic and hypercapnic respiratory failure. * COPD, home oxygen dependent at 4 L * Chronic CO2 retainer * Atrial fibrillation, on anticoagulation with Eliquis * X tobacco use * Hypertension * Hyperlipidemia * Macular degeneration * History of renal cancer in 2006 with right nephrectomy * Marijuana use Plan: * Patient's tremors are likely metabolic in nature. Patient states since he is in the hospital, the tremors are improving. Patient denies any history of tremors prior to few days before admission. Therefore doubt essential tremors. May consider propranolol (beta blockers) for tremors although beta blockers may be contraindicated because of COPD. Cardio selective beta arsh like atenolol could be considered. * Medical management of various cardiopulmonary and renal conditions as per IM. * Tremors can be enhanced by hyperthyroidism. Patient's TSH is low 0.071 (0.465-4.680), with normal free T4 1.41. Patient may have some component of hyperthyroidism. Suggest optimizing thyroid functions. * B12 484, folate 11.20. * MRI of the brain initiated by primary physician was negative for any ischemic or neoplastic process. * Neurologically clear for discharge. Suggest follow up with neurologist as outpatient, if the tremors persist.
== END 2022-06-02 12:26 | disposition home or self-care (01) | DRG 683 ==
LOC: EC 19:25 → 4SSUR 22:22
PROVIDERS: ADMIT Internal Medicine; ATTEND Internal Medicine
DX: N17.9 Acute kidney failure, unspecified (principal); E87.20 Acidosis, unspecified; J96.12 Chronic respiratory failure with hypercapnia; J96.11 Chronic respiratory failure with hypoxia; H33.22 Serous retinal detachment, left eye; Z99.81 Dependence on supplemental oxygen; D64.9 Anemia, unspecified; E05.90 Thyrotoxicosis, unspecified without thyrotoxic crisis or storm; I48.0 Paroxysmal atrial fibrillation; E86.0 Dehydration; J43.9 Emphysema, unspecified; I10 Essential (primary) hypertension; G25.0 Essential tremor; H35.3220 Exudative age-related macular degeneration, left eye, stage unspecified; E78.5 Hyperlipidemia, unspecified; H54.8 Legal blindness, as defined in USA; H91.93 Unspecified hearing loss, bilateral; I45.10 Unspecified right bundle-branch block; Z20.822 Contact with and (suspected) exposure to COVID-19; Z90.5 Acquired absence of kidney; Z79.899 Other long term (current) drug therapy; Z79.51 Long term (current) use of inhaled steroids; Z79.891 Long term (current) use of opiate analgesic; Z79.01 Long term (current) use of anticoagulants; Z88.8 Allergy status to other drugs, medicaments and biological substances; Z97.4 Presence of external hearing-aid; Z87.891 Personal history of nicotine dependence; Z85.528 Personal history of other malignant neoplasm of kidney
CPT/HCPCS: 36415; 36600; 70450; 70551; 71046; 80048; 80053; 80162; 80306; 81003; 82607; 82746; 82805; 83605; 83735; 84439; 84443; 84484; 85025; 85610; 87636; 93005; 94640; 94660; 94760; 96361; 96374; 99285

== ENCOUNTER 2022-08-14 14:51 | Inpatient (IN) | payer OTHER, MEDICARE ==
--- NOTE | 2022-08-14 16:10 | ED ---
General Adult HPI - General Chief complaint: Recheck/Abnormal Lab/Rx Stated complaint: "not feeling well" Time Seen by Provider: 08/14/22 15:16 Source: patient Mode of arrival: ambulatory Limitations: no limitations - History of Present Illness Initial comments: This patient is 76-year-old man who presents with complaint that he is just generally not feeling well. He states he is having a hard time putting his finger on anything specific. When pressed with specific questions, he does acknowledge some chest tightness, feeling it mainly in the bilateral mid axillary areas. He did not call it pain but mainly tightness. He is denying dyspnea. He is complaining of fatigue and generalized weakness. No vomiting or diarrhea. No change in urination noted. -: days(s) Location: chest Quality: other (Tightness) Consistency: constant Improves with: none Worsens with: none Associated Symptoms: other (Fatigue) Treatments Prior to Arrival: none - Related Data Home Medications Medication Instructions Recorded Confirmed Vit C/E/Zn/Coppr/Lutein/Zeaxan 1 cap PO BID 08/03/17 08/14/22 [Preservision Areds 2 Softgel] Escitalopram [Lexapro] 10 mg PO DAILY 11/25/20 08/14/22 Amiodarone [Cordarone] 200 mg PO DAILY 12/02/20 08/14/22 Albuterol Nebulized [Ventolin 2.5 mg INHALATION RT-Q4H 01/17/21 08/14/22 Nebulized] Roflumilast [Daliresp] 500 mcg PO DAILY 01/17/21 08/14/22 Digoxin [Lanoxin] 125 mcg PO DAILY 11/15/21 08/14/22 Famotidine [Pepcid] 20 mg PO DAILY 11/15/21 08/14/22 Rosuvastatin [Crestor] 10 mg PO DAILY 11/15/21 08/14/22 Ferrous Sulfate [Iron (65 MG 325 mg PO DAILY 05/31/22 08/14/22 Elemental)] Ipratropium [place] 0.06%Nasal 1 spray EA NOSTRIL BID 05/31/22 08/14/22 [Atrovent Nasal 0.06%] Previous Rx's Medication Instructions Recorded Apixaban [Eliquis] 5 mg PO BID 30 Days #60 tab 11/26/20 Potassium Chloride ER [K-Dur 20] 20 meq PO DAILY #30 tab 01/26/21 predniSONE 5 mg PO DAILY #0 08/06/21 Bumetanide [Bumex] 1 mg PO BID 30 Days #60 tablet 06/02/22 Melatonin 5 mg PO HS 30 Days #30 tablet 06/02/22 diphenhydrAMINE [Benadryl] 50 mg PO HS PRN 30 Days #30 capsule 06/02/22 Allergies Allergy/AdvReac Type Severity Reaction Status Date / Time atorvastatin [From Lipitor] Allergy Per Verified 08/14/22 16:44 [facility] Review of Systems ROS Statement: Those systems with pertinent positive or pertinent negative responses have been documented in the HPI. ROS Other: All systems not noted in ROS Statement are negative. Constitutional: Reports: weakness. Denies: fever, chills Respiratory: Denies: cough, dyspnea, wheezes Cardiovascular: Reports: as per HPI, chest pain. Denies: palpitations, orthopnea, edema, syncope Gastrointestinal: Denies: abdominal pain, nausea, vomiting, diarrhea, melena, hematochezia Genitourinary: Denies: dysuria, hematuria Musculoskeletal: Denies: back pain Skin: Denies: rash Neurological: Denies: headache, weakness Past Medical History Past Medical History: Atrial Fibrillation, Cancer, COPD, Eye Disorder, Hearing Disorder / Deafness, Hyperlipidemia, Hypertension, Osteoarthritis (OA) Additional Past Medical History / Comment(s): Emphysema (takes inhalers and uses oxygen at home). Hx Kidney Cancer in 2006, R nephrectomy.q Left eye detached retina. Wet Macular Degeneration right eye. Hx Melanoma on back. Bilateral hearing aid use, legally blind. History of Any Multi-Drug Resistant Organisms: None Reported Past Surgical History: Back Surgery Additional Past Surgical History / Comment(s): Right kidney removed. Left eye surgery X3 for detacted retina. Bilateral cataract surgery. Mohs surgery thoracic spine for melanoma. Past Anesthesia/Blood Transfusion Reactions: Previous Problems w/ Anesthesia Additional Past Anesthesia/Blood Transfusion Reaction / Comment(s): States low heart rate, light-headed and low BP X1 with anesthesia. "Got broke vocal cord and could not talk for 2 months after anesthesia one time." Past Psychological History: No Psychological Hx Reported Smoking Status: Current every day smoker Past Alcohol Use History: Daily Past Drug Use History: None Reported - Past Family History Mother Family Medical History: Cancer Additional Family Medical History / Comment(s): Brain Cancer. Father Family Medical History: CVA/TIA General Exam Limitations: no limitations General appearance: alert, in no apparent distress Head exam: Present: atraumatic, normocephalic Eye exam: Present: normal appearance. Absent: scleral icterus, conjunctival injection Neck exam: Present: normal inspection Respiratory exam: Present: decreased breath sounds. Absent: respiratory distress, wheezes, rales, rhonchi, stridor, accessory muscle use Cardiovascular Exam: Present: regular rate, normal rhythm, normal heart sounds. Absent: systolic murmur, diastolic murmur, rubs, gallop GI/Abdominal exam: Present: soft. Absent: distended, tenderness, guarding, rebound, rigid, mass Extremities exam: Present: normal inspection, normal capillary refill. Absent: pedal edema, calf tenderness Back exam: Present: normal inspection. Absent: CVA tenderness (R), CVA tenderness (L) Neurological exam: Present: alert Skin exam: Present: warm, dry, intact, normal color. Absent: rash Course Vital Signs 08/14/22 08/14/22 08/14/22 15:02 17:04 18:24 Temperature 97.8 F Pulse Rate 89 80 Pulse Rate [ Pulse Oximetery ] Respiratory 24 18 Rate Blood Pressure 121/73 130/70 Blood Pressure [Left Arm] O2 Sat by Pulse 94 L 97 Oximetry Fraction of 30 Inspired Oxygen (FIO2) 08/14/22 08/14/22 08/14/22 18:31 19:07 19:33 Temperature Pulse Rate 70 77 Pulse Rate [ Pulse Oximetery ] Respiratory 18 Rate Blood Pressure 94/70 Blood Pressure [Left Arm] O2 Sat by Pulse 95 Oximetry Fraction of 27 27 Inspired Oxygen (FIO2) 08/14/22 08/14/22 08/14/22 19:41 20:36 21:01 Temperature 98.3 F Pulse Rate 78 77 Pulse Rate [ 70 Pulse Oximetery ] Respiratory 18 16 Rate Blood Pressure 150/59 Blood Pressure 143/72 [Left Arm] O2 Sat by Pulse 99 94 L Oximetry Fraction of Inspired Oxygen (FIO2) EKG Findings - EKG Results: EKG: interpreted by ERMD, sinus rhythm (Rate 75 bpm), normal axis - Blocks, [place], Hypertrophy, ST Abn: AV and intraventricular conduction: right bundle branch block (fixed/intermittent, complete/incomplete) Medical Decision Making - Medical Decision Making This patient is a 76-year-old man who presents to have evaluation as he is just not feeling right, as well as having chest tightness. On the exam, patient does appear to be having COPD exacerbation with very little air movement on auscultation. The chest x-ray is obtained and I interpreted this as not showing acute infiltrate, pneumothorax, or congestive heart failure. The patient's workup does reveal venous blood gas with pCO2 of 87. The patient does have lab evidence of chronic hypercapnia, though I suspect the level of 87 is above his baseline. We'll admit patient for course of antibiotic, steroid, inhaled medication, and retrial of BiPAP as well as pulmonology consultation. - Lab Data Result diagrams: 08/14/22 16:44 08/14/22 16:44 Lab Results 08/14/22 08/14/22 08/14/22 Range/Units 16:44 16:44 16:44 WBC 4.5 (3.8-10.6) k/uL RBC 4.34 (4.30-5.90) m/uL Hgb 13.4 (13.0-17.5) gm/dL Hct 40.9 (39.0-53.0) % MCV 94.3 (80.0-100.0) fL MCH 30.9 (25.0-35.0) pg MCHC 32.8 (31.0-37.0) g/dL RDW 13.7 (11.5-15.5) % Plt Count 149 L (150-450) k/uL MPV 7.3 Neutrophils % (Manual) 59 % Lymphocytes % (Manual) 21 % Monocytes % (Manual) 18 % Eosinophils % (Manual) 2 % Neutrophils # (Manual) 2.66 (1.3-7.7) k/uL Lymphocytes # (Manual) 0.95 L (1.0-4.8) k/uL Monocytes # (Manual) 0.81 (0-1.0) k/uL Eosinophils # (Manual) 0.09 (0-0.7) k/uL Nucleated RBCs 0 (0-0) /100 WBC Manual Slide Review Performed Stomatocytes Present VBG pH (7.31-7.41) VBG pCO2 (37-51) mmHg VBG HCO3 (24-28) mmol/L Sodium 141 (137-145) mmol/L Potassium 4.5 (3.5-5.1) mmol/L Chloride 90 L (98-107) mmol/L Carbon Dioxide 45 H* (22-30) mmol/L Anion Gap 6 mmol/L BUN 17 (9-20) mg/dL Creatinine 1.38 H (0.66-1.25) mg/dL Est GFR (CKD-EPI)AfAm 57 (>60 ml/min/1.73 sqM) Est GFR (CKD-EPI)NonAf 49 (>60 ml/min/1.73 sqM) Glucose 101 H (74-99) mg/dL Plasma Lactic Acid [place] (0.7-2.0) mmol/L Calcium 9.1 (8.4-10.2) mg/dL Total Bilirubin 0.6 (0.2-1.3) mg/dL AST 24 (17-59) U/L ALT 24 (4-49) U/L Alkaline Phosphatase 113 (38-126) U/L Troponin I (0.000-0.034) ng/mL NT-Pro-B Natriuret Pep pg/mL Total Protein 7.0 (6.3-8.2) g/dL Albumin 4.0 (3.5-5.0) g/dL Urine Color Yellow Urine Appearance Clear (Clear) Urine pH 6.0 (5.0-8.0) Ur Specific [place] 1.011 (1.001-1.035) Urine Protein Negative (Negative) Urine Glucose (UA) Negative (Negative) Urine Ketones Negative (Negative) Urine Blood Negative (Negative) Urine Nitrite Negative (Negative) Urine Bilirubin Negative (Negative) Urine Urobilinogen <2.0 (<2.0) mg/dL Ur Leukocyte Esterase Negative (Negative) Influenza Type A (PCR) (Not Detectd) Influenza Type B (PCR) (Not Detectd) RSV (PCR) (Not Detectd) SARS-CoV-2 (PCR) (Not Detectd) 08/14/22 08/14/22 08/14/22 Range/Units 16:44 16:44 16:44 WBC (3.8-10.6) k/uL RBC (4.30-5.90) m/uL Hgb (13.0-17.5) gm/dL Hct (39.0-53.0) % MCV (80.0-100.0) fL MCH (25.0-35.0) pg MCHC (31.0-37.0) g/dL RDW (11.5-15.5) % Plt Count (150-450) k/uL MPV Neutrophils % (Manual) % Lymphocytes % (Manual) % Monocytes % (Manual) % Eosinophils % (Manual) % Neutrophils # (Manual) (1.3-7.7) k/uL Lymphocytes # (Manual) (1.0-4.8) k/uL Monocytes # (Manual) (0-1.0) k/uL Eosinophils # (Manual) (0-0.7) k/uL Nucleated RBCs (0-0) /100 WBC Manual Slide Review Stomatocytes VBG pH (7.31-7.41) VBG pCO2 (37-51) mmHg VBG HCO3 (24-28) mmol/L Sodium (137-145) mmol/L Potassium (3.5-5.1) mmol/L Chloride (98-107) mmol/L Carbon Dioxide (22-30) mmol/L Anion Gap mmol/L BUN (9-20) mg/dL Creatinine (0.66-1.25) mg/dL Est GFR (CKD-EPI)AfAm (>60 ml/min/1.73 sqM) Est GFR (CKD-EPI)NonAf (>60 ml/min/1.73 sqM) Glucose (74-99) mg/dL Plasma Lactic Acid [place] 0.9 (0.7-2.0) mmol/L Calcium (8.4-10.2) mg/dL Total Bilirubin (0.2-1.3) mg/dL AST (17-59) U/L ALT (4-49) U/L Alkaline Phosphatase (38-126) U/L Troponin I <0.012 (0.000-0.034) ng/mL NT-Pro-B Natriuret Pep 183 pg/mL Total Protein (6.3-8.2) g/dL Albumin (3.5-5.0) g/dL Urine Color Urine Appearance (Clear) Urine pH (5.0-8.0) Ur Specific [place] (1.001-1.035) Urine Protein (Negative) Urine Glucose (UA) (Negative) Urine Ketones (Negative) Urine Blood (Negative) Urine Nitrite (Negative) Urine Bilirubin (Negative) Urine Urobilinogen (<2.0) mg/dL Ur Leukocyte Esterase (Negative) Influenza Type A (PCR) (Not Detectd) Influenza Type B (PCR) (Not Detectd) RSV (PCR) (Not Detectd) SARS-CoV-2 (PCR) (Not Detectd) 08/14/22 08/14/22 Range/Units 17:18 17:55 WBC (3.8-10.6) k/uL RBC (4.30-5.90) m/uL Hgb (13.0-17.5) gm/dL Hct (39.0-53.0) % MCV (80.0-100.0) fL MCH (25.0-35.0) pg MCHC (31.0-37.0) g/dL RDW (11.5-15.5) % Plt Count (150-450) k/uL MPV Neutrophils % (Manual) % Lymphocytes % (Manual) % Monocytes % (Manual) % Eosinophils % (Manual) % Neutrophils # (Manual) (1.3-7.7) k/uL Lymphocytes # (Manual) (1.0-4.8) k/uL Monocytes # (Manual) (0-1.0) k/uL Eosinophils # (Manual) (0-0.7) k/uL Nucleated RBCs (0-0) /100 WBC Manual Slide Review Stomatocytes VBG pH 7.34 (7.31-7.41) VBG pCO2 87 H* (37-51) mmHg VBG HCO3 46 H (24-28) mmol/L Sodium (137-145) mmol/L Potassium (3.5-5.1) mmol/L Chloride (98-107) mmol/L Carbon Dioxide (22-30) mmol/L Anion Gap mmol/L BUN (9-20) mg/dL Creatinine (0.66-1.25) mg/dL Est GFR (CKD-EPI)AfAm (>60 ml/min/1.73 sqM) Est GFR (CKD-EPI)NonAf (>60 ml/min/1.73 sqM) Glucose (74-99) mg/dL Plasma Lactic Acid Fabiano (0.7-2.0) mmol/L Calcium (8.4-10.2) mg/dL Total Bilirubin (0.2-1.3) mg/dL AST (17-59) U/L ALT (4-49) U/L Alkaline Phosphatase (38-126) U/L Troponin I (0.000-0.034) ng/mL NT-Pro-B Natriuret Pep pg/mL Total Protein (6.3-8.2) g/dL Albumin (3.5-5.0) g/dL Urine Color Urine Appearance (Clear) Urine pH (5.0-8.0) Ur Specific [place] (1.001-1.035) Urine Protein (Negative) Urine Glucose (UA) (Negative) Urine Ketones (Negative) Urine Blood (Negative) Urine Nitrite (Negative) Urine Bilirubin (Negative) Urine Urobilinogen (<2.0) mg/dL Ur Leukocyte Esterase (Negative) Influenza Type A (PCR) Not Detected (Not Detectd) Influenza Type B (PCR) Not Detected (Not Detectd) RSV (PCR) Not Detected (Not Detectd) SARS-CoV-2 (PCR) Not Detected (Not Detectd) Disposition Clinical Impression: COPD exacerbation, Chronic respiratory failure with hypercapnia Disposition: ADMITTED IP TO THIS HOSP Condition: Fair Is patient prescribed a controlled substance at d/c from ED?: No
--- NOTE | 2022-08-14 16:32 | XR ---
EXAMINATION TYPE: XR chest 2V DATE OF EXAM: 08/14/2022 COMPARISON: 05/30/22 HISTORY: Shortness of breath TECHNIQUE: Frontal and lateral views of the chest are obtained. FINDINGS: Scattered senescent parenchymal changes noted. Hyperinflation compatible with COPD. No evidence for infiltrate. No evidence for atelectasis. Heart size is stable. Mediastinal structures are stable and grossly unremarkable. No evidence for hilar prominence. Degenerative changes dorsal spine. IMPRESSION: 1. No evidence for acute pulmonary disease.
[2022-08-14 17:04] LABS: Calcium 9.1 mg/dL (8.4-10.2); Potassium 4.5 mmol/L (3.5-5.1); Total Bilirubin 0.6 mg/dL (0.2-1.3)
[2022-08-14 17:11] LABS: HCT 40.9 % (39.0-53.0); HGB 13.4 gm/dL (13.0-17.5); MCH 30.9 pg (25.0-35.0); MCHC 32.8 g/dL (31.0-37.0); MCV 94.3 fL (80.0-100.0); Mean Platelet Volume 7.3; Platelet Count 149 k/uL (150-450); RBC 4.34 m/uL (4.30-5.90); RDW 13.7 % (11.5-15.5); WBC 4.5 k/uL (3.8-10.6)
[2022-08-14 17:49] LABS: Eosinophils # (M) 0.09 k/uL (0-0.7); Lymphocytes # (M) 0.95 k/uL (1.0-4.8); Monocytes # (M) 0.81 k/uL (0-1.0); Neutrophils # (M) 2.66 k/uL (1.3-7.7); Neutrophils % (M) 59 %; Nucleated Red Blood Cells 0 /100 WBC (0-0); Stomatocytes Present; Total Cells Counted 100
[2022-08-14 18:06] LABS: VBG PH 7.34 (7.31-7.41)
[2022-08-14] MEDS ORDERED: methylPREDNISolone SOD SUCCI 125 MG/2 ML VIAL IV STA (18:09)
[2022-08-14] MEDS ORDERED: NALOXONE 0.4 MG/ML 1 ML VIAL IVP PRN (18:29)
[2022-08-14 18:33] LABS: Appearance,Urine Clear (Clear); Bilirubin,Urine Negative (Negative); Blood,Urine Negative (Negative); Color,Urine Yellow; Glucose,Urine (UA) Negative (Negative); Ketones,Urine Negative (Negative); Leukocyte Esterase,Urine Negative (Negative); Nitrite,Urine Negative (Negative); Protein,Urine Negative (Negative); Specific Gravity,Urine 1.011 (1.001-1.035); Urobilinogen,Urine <2.0 mg/dL (<2.0)
[2022-08-14] MEDS: IPRATROPIUM-ALBUTEROL 3 ML NEB INHALATION SCH (19:29)
[2022-08-14] MEDS ORDERED: HEPARIN SODIUM,PORCINE/PF 5,000 UNIT/0.5 ML SYRINGE SQ SCH (21:00)
[2022-08-14] MEDS: ACETAMINOPHEN TAB 325 MG TAB PO PRN (21:31)
[2022-08-14] MEDS: DOXYCYCLINE 100 MG CAP PO SCH (21:43)
[2022-08-15] MEDS: methylPREDNISolone SOD SUCCI 125 MG/2 ML VIAL IV SCH ×5 (01:03→23:27)
[2022-08-15] MEDS ORDERED: IPRATROPIUM 0.5 MG/2.5 ML NEBU INHALATION PRN (03:26)
--- NOTE | 2022-08-15 03:27 | P.HPIM ---
History of Present Illness H&P Date: 08/14/22 The patient is 76-year-old male with a PMH of A. lola on Eliquis, COPD with chronic hypoxic respiratory failure on 4 L is a cannula oxygen at home, hypertension, and hyperlipidemia who presents to the emergency room with complaints of feeling unwell. The patient states that over the past 1-2 days, he is simply not been feeling like himself. He does report chest tightness with minimal shortness of breath. Also denied fever, chills, cough, nausea, vomiting, abdominal pain, diarrhea. Chest x-ray the emergency room was unremarkable. EKG reveals sinus rhythm at 75 bpm with a right bundle branch block as reviewed by me. Laboratory evaluation revealed a WBC count of 4.5, hemoglobin 13.4, platelet count 149, sodium 141, potassium 4.5, chloride 90, CO2 45, creatinine 1.38, troponin less than 0.012, and proBNP 183 with an unremarkable UA. A VBG revealed a pH of 7.34, pCO2 87, and bicarb 46. Vital signs in the emergency room revealed SpO2 90% on 4 L is a cannula oxygen with BP 110/61, pulse 73, and temp 97.8F. ED documentation reviewed and case discussed with ED provider. Review of systems: Pertinent positives and negatives as discussed in HPI, a complete review of systems was performed and all other systems are negative. Physical examination: Vital signs reviewed General: non toxic, no distress, appears at stated age, obese Derm: no unusual rashes/lesions, warm Head: atraumatic, normocephalic, symmetric Eyes: EOMI, no lid lag, anicteric sclera, pupils equal round reactive to light ENT: Nose and ears atraumatic Neck: No cervical lymphadenopathy, trachea midline, supple Mouth: no lip lesion, mucus membranes moist Cardiovascular: S1S2 reg, no murmur, positive dorsalis pedis pulse bilateral, no edema Lungs: CTA bilateral, no rhonchi, no rales, no accessory muscle use Abdominal: soft, nontender to palpation, no guarding Ext: muscle strength 5 out of 5 in all 4 extremities grossly, no gross muscle atrophy, no contractures, Neuro: CN II-XI grossly intact, no gross focal neuro deficits Psych: Alert, oriented, appropriate affect Assessment: Acute on chronic hypoxic and hypercapnic respiratory failure, likely secondary to mild COPD exacerbation Thrombocytopenia Chronic conditions: Chronic kidney disease, A. fib, hypertension, hyperlipidemia Imaging: Chest x-ray the emergency room was unremarkable. EKG reveals sinus rhythm at 75 bpm with a right bundle branch block as reviewed by me. Data Review: Laboratory evaluation revealed a WBC count of 4.5, hemoglobin 13.4, platelet count 149, sodium 141, potassium 4.5, chloride 90, CO2 45, creatinine 1.38, troponin less than 0.012, and proBNP 183 with an unremarkable UA. A VBG revealed a pH of 7.34, pCO2 87, and bicarb 46. Vital signs in the emergency room revealed SpO2 90% on 4 L is a cannula oxygen with BP 110/61, pulse 73, and temp 97.8F. Plan: Continue Solu-Medrol 60 mg IV every 6 hours DuoNeb around the clock and as needed Pulmonary consulted Continue with home medications: -Eliquis 5 mg by mouth twice a day -Bumex 1 mg by mouth twice a day -Digoxin 125 mg by mouth daily -Crestor 10 mg by mouth daily -Amiodarone 200 mg by mouth daily DVT prophylaxis: Eliquis The patient is admitted with an anticipated greater than 2 midnight stay for evaluation of COPD exacerbation CODE STATUS: Full Code Discussed with: Patient Anticipated discharge place: Home Past Medical History Past Medical History: Atrial Fibrillation, Cancer, COPD, Eye Disorder, Hearing Disorder / Deafness, Hyperlipidemia, Hypertension, Osteoarthritis (OA) Additional Past Medical History / Comment(s): Emphysema (takes inhalers and uses oxygen at home). Hx Kidney Cancer in 2006, R nephrectomy.q Left eye detached retina. Wet Macular Degeneration right eye. Hx Melanoma on back. Bilateral hearing aid use, legally blind. History of Any Multi-Drug Resistant Organisms: None Reported Past Surgical History: Back Surgery Additional Past Surgical History / Comment(s): Right kidney removed. Left eye surgery X3 for detacted retina. Bilateral cataract surgery. Mohs surgery thoracic spine for melanoma. Past Anesthesia/Blood Transfusion Reactions: Previous Problems w/ Anesthesia Additional Past Anesthesia/Blood Transfusion Reaction / Comment(s): States low heart rate, light-headed and low BP X1 with anesthesia. "Got broke vocal cord and could not talk for 2 months after anesthesia one time." Past Psychological History: No Psychological Hx Reported Smoking Status: Current every day smoker Past Alcohol Use History: Daily Additional Past Alcohol Use History / Comment(s): States that he drinks Past Drug Use History: None Reported - Past Family History Mother Family Medical History: Cancer Additional Family Medical History / Comment(s): Brain Cancer. Father Family Medical History: CVA/TIA Medications and Allergies Home Medications Medication Instructions Recorded Confirmed Type Vit C/E/Zn/Coppr/Lutein/Zeaxan 1 cap PO BID 08/03/17 08/14/22 History [Preservision Areds 2 Softgel] Escitalopram [Lexapro] 10 mg PO DAILY 11/25/20 08/14/22 History Apixaban [Eliquis] 5 mg PO BID 30 Days #60 tab 11/26/20 08/14/22 Rx Amiodarone [Cordarone] 200 mg PO DAILY 12/02/20 08/14/22 History Albuterol Nebulized [Ventolin 2.5 mg INHALATION RT-Q4H 01/17/21 08/14/22 History Nebulized] Roflumilast [Daliresp] 500 mcg PO DAILY 01/17/21 08/14/22 History Potassium Chloride ER [K-Dur 20] 20 meq PO DAILY #30 tab 01/26/21 08/14/22 Rx predniSONE 5 mg PO DAILY #0 08/06/21 08/14/22 Rx Digoxin [Lanoxin] 125 mcg PO DAILY 11/15/21 08/14/22 History Famotidine [Pepcid] 20 mg PO DAILY 11/15/21 08/14/22 History Rosuvastatin [Crestor] 10 mg PO DAILY 11/15/21 08/14/22 History Ferrous Sulfate [Iron (65 MG 325 mg PO DAILY 05/31/22 08/14/22 History Elemental)] Ipratropium [place] 0.06%Nasal 1 spray EA NOSTRIL BID 05/31/22 08/14/22 History [Atrovent Nasal 0.06%] Bumetanide [Bumex] 1 mg PO BID 30 Days #60 tablet 06/02/22 08/14/22 Rx Melatonin 5 mg PO HS 30 Days #30 tablet 06/02/22 08/14/22 Rx diphenhydrAMINE [Benadryl] 50 mg PO HS PRN 30 Days #30 capsule 06/02/22 08/14/22 Rx Allergies Allergy/AdvReac Type Severity Reaction Status Date / Time atorvastatin [From Lipitor] Allergy Per Verified 08/14/22 16:44 [facility] Physical Exam Vitals: Vital Signs Temp Pulse Pulse Resp BP BP Pulse Ox 08/14/22 21:01 98.3 F 70 16 143/72 94 L 08/14/22 20:36 77 18 150/59 99 08/14/22 19:41 78 08/14/22 19:33 77 08/14/22 19:07 70 18 94/70 95 08/14/22 18:31 08/14/22 18:24 08/14/22 17:04 80 18 130/70 97 08/14/22 15:02 97.8 F 89 24 121/73 94 L FiO2 08/14/22 21:01 08/14/22 20:36 08/14/22 19:41 08/14/22 19:33 27 08/14/22 19:07 08/14/22 18:31 27 08/14/22 18:24 30 08/14/22 17:04 08/14/22 15:02 Intake and Output 08/14/22 08/14/22 08/15/22 14:59 22:59 06:59 Other: Weight 113.398 kg Results CBC & Chem 7: 08/14/22 16:44 08/14/22 16:44 Labs: Abnormal Lab Results - Last 24 Hours (Table) 08/14/22 08/14/22 08/14/22 Range/Units 16:44 16:44 17:55 Plt Count 149 L (150-450) k/uL Lymphocytes # (Manual) 0.95 L (1.0-4.8) k/uL VBG pCO2 87 H* (37-51) mmHg VBG HCO3 46 H (24-28) mmol/L Chloride 90 L (98-107) mmol/L Carbon Dioxide 45 H* (22-30) mmol/L Creatinine 1.38 H (0.66-1.25) mg/dL Glucose 101 H (74-99) mg/dL Thrombosis Risk Factor Assmnt - Choose All That Apply Any of the Below Risk Factors Present?: Yes Each Factor Represents 1 point: Abnormal pulmonary function (COPD), Obesity (BMI >25) Other Risk Factors: Yes Each Risk Factor Represents 2 Points: Age 61-74 years Other congenital or acquired thrombophilia - If yes, enter type in comment: No Thrombosis Risk Factor Assessment Total Risk Factor Score: 4 Thrombosis Risk Factor Assessment Level: Moderate Risk
[2022-08-15] MEDS ORDERED: ALBUTEROL NEBULIZED 2.5 MG/3 ML INHALATION PRN (03:29)
[2022-08-15 06:18] LABS: Glucose,Whole Blood 162 mg/dL (70-110)
[2022-08-15] MEDS: INSULIN ASPART (NovoLOG) 100 UNIT/ML VIAL SQ SCH ×4 (06:22→20:34)
[2022-08-15] MEDS: DIGOXIN 125 MCG TAB PO SCH (07:49)
[2022-08-15] MEDS: ESCITALOPRAM 10 MG TAB PO SCH (07:49)
[2022-08-15] MEDS: BUMETANIDE 1 MG TAB PO SCH ×2 (07:49→20:33)
[2022-08-15] MEDS: APIXABAN 5 MG TAB PO SCH ×2 (07:49→20:33)
[2022-08-15] MEDS: AMIODARONE 200 MG TAB PO SCH (07:49)
[2022-08-15] MEDS: DOXYCYCLINE 100 MG CAP PO SCH ×2 (07:49→20:33)
[2022-08-15] MEDS: NON FORMULARY DRUG (Rosuvastatin 20 MG Tablet) PO SCH (07:50)
[2022-08-15] MEDS: IPRATROPIUM-ALBUTEROL 3 ML NEB INHALATION SCH ×5 (09:14→22:30)
[2022-08-15 11:40] LABS: Glucose,Whole Blood 180 mg/dL (70-110)
[2022-08-15] MEDS: GABAPENTIN 100 MG CAP PO SCH ×2 (11:46→20:33)
--- NOTE | 2022-08-15 11:53 | P.CNPUL ---
History of Present Illness Consult date: 08/15/22 Requesting physician: Anjana Kumar Reason for consult: COPD Chief complaint: Shortness of breath History of present illness: This is a 76-year-old white male with known history of severe COPD/emphysema, FEV1 is in the range of 20% of the predicted. Patient has chronic hypoxic respiratory failure, maintained on 4 L nasal cannula at home, normally sees Dr. Ware for his underlying COPD. Patient also has AVAPS machine at home, and he is compliant with it. Patient came into the ER with 1 week history of shortness of breath, occasional dry cough, no chest pain, no fever, no chills, no hemopty sis. Patient was just not feeling well. Patient was also complaining of fatigue, and generalized weakness. Chest x-ray showed no evidence of active pulmonary disease. CBC was basically unremarkable, basic metabolic profile unremarkable except for elevated bicarb 45 and creatinine of 1.38, venous blood gases showed a pCO2 of 87 pH of 7.34, patient had negative screening for influenza A and influenza B, RSV and COVID-19 infection patient was admitted and this consult was appreciated patient was admitted with the impression of acute exacerbation of COPD Review of Systems CONSTITUTIONAL: Generalized weakness and fatigue, no fever, no chills. EYES: Denies change in vision. EARS, NOSE, MOUTH, THROAT: Denies headaches, denies sore throat. CARDIOVASCULAR: Denies chest pain, palpitations or syncopal episodes. RESPIRATORY: As noted in HPI, dry cough and shortness of breath. No chest pain no hemoptysis. GASTROINTESTINAL: Denies change in appetite, denies abdominal pain GENITOURINARY: Denies hematuria, denies infections. MUSKULOSKELETAL: Generalized weakness and fatigue. INTEGUMENTARY: Denies rash, denies eczema. NEUROLOGICAL: Denies recent memory loss, no recent seizure activity. PSYCHIATRIC: Denies anxiety, denies depression. HEMATOLOGIC/LYMPHATIC: Denies anemia, denies enlarged lymph nodes. Past Medical History Past Medical History: Atrial Fibrillation, Cancer, COPD, Eye Disorder, Hearing Disorder / Deafness, Hyperlipidemia, Hypertension, Osteoarthritis (OA) Additional Past Medical History / Comment(s): Emphysema (takes inhalers and uses oxygen at home). Hx Kidney Cancer in 2007, R nephrectomy.q Left eye detached retina. Wet Macular Degeneration right eye. Hx Melanoma on back. Bilateral hearing aid use, legally blind. History of Any Multi-Drug Resistant Organisms: None Reported Past Surgical History: Back Surgery Additional Past Surgical History / Comment(s): Right kidney removed. Left eye surgery X3 for detacted retina. Bilateral cataract surgery. Mohs surgery thoracic spine for melanoma. Past Anesthesia/Blood Transfusion Reactions: Previous Problems w/ Anesthesia Additional Past Anesthesia/Blood Transfusion Reaction / Comment(s): States low heart rate, light-headed and low BP X1 with anesthesia. "Got broke vocal cord and could not talk for 2 months after anesthesia one time." Past Psychological History: No Psychological Hx Reported Smoking Status: Current every day smoker Past Alcohol Use History: Daily Additional Past Alcohol Use History / Comment(s): States that he drinks Past Drug Use History: None Reported - Past Family History Mother Family Medical History: Cancer Additional Family Medical History / Comment(s): Brain Cancer. Father Family Medical History: CVA/TIA Medications and Allergies Home Medications Medication Instructions Recorded Confirmed Type Vit C/E/Zn/Coppr/Lutein/Zeaxan 1 cap PO BID 08/03/17 08/14/22 History [Preservision Areds 2 Softgel] Escitalopram [Lexapro] 10 mg PO DAILY 11/25/20 08/14/22 History Apixaban [Eliquis] 5 mg PO BID 30 Days #60 tab 11/26/20 08/14/22 Rx Amiodarone [Cordarone] 200 mg PO DAILY 12/02/20 08/14/22 History Albuterol Nebulized [Ventolin 2.5 mg INHALATION RT-Q4H 01/17/21 08/14/22 History Nebulized] Roflumilast [Daliresp] 500 mcg PO DAILY 01/17/21 08/14/22 History Potassium Chloride ER [K-Dur 20] 20 meq PO DAILY #30 tab 01/26/21 08/14/22 Rx predniSONE 5 mg PO DAILY #0 08/06/21 08/14/22 Rx Digoxin [Lanoxin] 125 mcg PO DAILY 11/15/21 08/14/22 History Famotidine [Pepcid] 20 mg PO DAILY 11/15/21 08/14/22 History Rosuvastatin [Crestor] 10 mg PO DAILY 11/15/21 08/14/22 History Ferrous Sulfate [Iron (65 MG 325 mg PO DAILY 05/31/22 08/14/22 History Elemental)] Ipratropium [place] 0.06%Nasal 1 spray EA NOSTRIL BID 05/31/22 08/14/22 History [Atrovent Nasal 0.06%] Bumetanide [Bumex] 1 mg PO BID 30 Days #60 tablet 06/02/22 08/14/22 Rx Melatonin 5 mg PO HS 30 Days #30 tablet 06/02/22 08/14/22 Rx diphenhydrAMINE [Benadryl] 50 mg PO HS PRN 30 Days #30 capsule 06/02/22 08/14/22 Rx Allergies Allergy/AdvReac Type Severity Reaction Status Date / Time atorvastatin [From Lipitor] Allergy Per Verified 08/14/22 16:44 [facility] Physical Exam Vitals: Vital Signs Temp Pulse Pulse Resp BP BP Pulse Ox 08/15/22 09:16 92 L 08/15/22 07:46 97.9 F 73 16 136/73 96 08/15/22 04:00 71 16 121/64 91 L 08/15/22 01:57 08/15/22 00:00 97.8 F 73 14 110/61 90 L 08/14/22 21:01 98.3 F 70 16 143/72 94 L 08/14/22 20:36 77 18 150/59 99 08/14/22 19:41 78 08/14/22 19:33 77 08/14/22 19:07 70 18 94/70 95 08/14/22 18:31 08/14/22 18:24 08/14/22 17:04 80 18 130/70 97 08/14/22 15:02 97.8 F 89 24 121/73 94 L FiO2 08/15/22 09:16 08/15/22 07:46 08/15/22 04:00 27 08/15/22 01:57 27 08/15/22 00:00 08/14/22 21:01 08/14/22 20:36 08/14/22 19:41 08/14/22 19:33 27 08/14/22 19:07 08/14/22 18:31 27 08/14/22 18:24 30 08/14/22 17:04 08/14/22 15:02 Intake and Output 08/14/22 08/15/22 08/15/22 22:59 06:59 14:59 Intake Total 608 Balance 608 Intake: IV 10 Invasive Line 1 10 Oral 598 Other: Voiding Method Toilet Toilet Toilet Urinal Urinal Urinal # Voids 0 1 # Bowel Movements 0 Weight 113.398 kg GENERAL EXAM: Revealed a very pleasant 76-year-old white male in no distress, on 4 L nasal cannula. HEAD: Normocephalic. EYES: Normal reaction of pupils, equal size. NOSE: Clear with pink turbinates. THROAT: No erythema or exudates. NECK: No masses, no JVD. CHEST: No chest wall deformity. LUNGS extremely diminished breath sound bilaterally no crackles or rhonchi or wheezes Cardiac: Distant S1 and S2, no S3 gallop,. ABDOMEN: No hepatosplenomegaly, normal bowel sounds, no guarding or rigidity. SKIN: No rashes CENTRAL NERVOUS SYalert and oriented 3,NO Focal deficits. EXTREMITIES: no clubbing edema or cyanosis Results - Laboratory Findings CBC and BMP: 08/14/22 16:44 08/14/22 16:44 Abnormal lab findings: Abnormal Labs 08/14/22 08/14/22 08/14/22 16:44 16:44 17:55 Plt Count 149 L Lymphocytes # (Manual) 0.95 L VBG pCO2 87 H* VBG HCO3 46 H Chloride 90 L Carbon Dioxide 45 H* Creatinine 1.38 H Glucose 101 H POC Glucose (mg/dL) 08/15/22 06:17 Plt Count Lymphocytes # (Manual) VBG pCO2 VBG HCO3 Chloride Carbon Dioxide Creatinine Glucose POC Glucose (mg/dL) 162 H - Diagnostic Findings Chest x-ray: image reviewed (As noted in HPI) Assessment and Plan Assessment: Impression: Acute exacerbation of COPD, patient has baseline Gold stage IV COPD,FEV1 in the range of 20% of the predicted value. AVAPS at home. Chronic hypoxic and hypercapnic respiratory failure [id number] smoking history quit in 2020. Chronic atrial fibrillation, anticoagulated with eliquis. Benign essential hypertension History of obstructive sleep apnea syndrome Secondary pulmonary hypertension Degenerative joint disease History of kidney cancer in 2006 and previous right nephrectomy History of back melanoma requiring surgery History of detached retina Recommendation: Continue present treatment plan Continue oxygen and titrate accordingly Use BiPAP as needed patient may bring his own AVAPS machine if possible. Patient to remain on Solu-Medrol. Continue updrafts. Resume home meds/cardiac meds including eliquis and diuretics as well as amiod kasia Agree with doxycycline twice a day Continue Symbicort We will continue to follow possible discharge planning in the next 24-48 hours Time with Patient: Greater than 30
--- NOTE | 2022-08-15 13:06 | P.PN ---
Subjective Progress Note Date: 08/15/22 Patient is a 76-year-old male with atrial fibrillation on Eliquis, COPD with chronic hypoxic respiratory failure on 4 L nasal cannula, hypertension, dyslipidemia, and multiple other comorbid conditions who presented to the ER with complaints of "feeling unwell". In the ER he underwent an extensive evaluation. Initial vital signs showed a an O2 sat of 90% on 4 L nasal cannula. Laboratory analysis was remarkable for platelets of 149, chloride 90, carbon dioxide 45, and creatinine of 1.38. Influenza A/B/RSV/COVID-19 were negative. VBG showed a pH of 7.34/CO2 87/HCO3 46. Chest x-ray was unremarkable for acute process. In the ER he was given steroids, bronchodilators, and doxycycline. He was admitted for further monitoring. Pulmonary was consulted. Patient seen and examined at bedside. He reports his breathing is much improved since yesterday, he denies any continued chest tightness. He is eating and drinking well. He complains of neuropathy in his lower extremities consisting of a burning and tingling pain. He reports he had an EEG done a month ago but has not yet been started on any medications. Vital signs reviewed General: nontoxic, no distress, appears at stated age, Obese Cardiovascular: S1S2 reg, no murmur, positive posterior tibial pulse bilateral, Lungs: Inspiratory wheeze with diminished breath sounds bilateral bases, no rhonchi, no rales , no accessory muscle use Abdominal: soft, nontender to palpation, no guarding, no appreciable organomeg harry Ext: no gross muscle atrophy, no edema, no contractures Neuro: CN II-XI grossly intact, no focal neuro deficits Psych: Alert, oriented, appropriate affect Assessment: Acute exacerbation of severe COPD Acute on chronic hypoxic respiratory failure Thrombocytopenia, likely reactive Paroxysmal atrial fibrillation Hypertension Dyslipidemia Chronic kidney disease Stage III Obesity with BMI 36.9 Peripheral neuropathy Chronic cardiomyopathy with ejection fraction 45-50%, severe pulmonary hypertension with severe tricuspid regurgitation Imaging: none additional for review Data Review: Vital signs from this morning reveal a temperature of 97.3, pulse 75, respirations 16, blood pressure 136/73, and O2 sat 96% on 4 L Plan: -Continue with DuoNeb 4 times daily and albuterol as needed, Symbicort twice daily, Solu-Medrol 60 every 6 -Doxycycline in 100 mg twice daily, day #1 -Amiodarone 200 mg daily, Eliquis 5 mg twice daily -Pulmonary consultation reviewed: BiPAP as needed patient may bring in his own AVAPS, continue with Solu-Medrol and updrafts -Start gabapentin 200 mg twice daily -Repeat BMP and CBC in a.m. DVT prophylaxis: Eliquis Discussed with: Patient, nursing Anticipated discharge date: 24-[address]: Home with home health This dictation was prepared using [employer] voice recognition software. Though every attempt is made to correct errors during during dictation some may still exist. Objective - Vital Signs Vital signs: Vital Signs Temp 97.3 F L 08/15/22 11:45 Pulse 90 08/15/22 12:32 Resp 16 08/15/22 11:45 BP 123/66 08/15/22 11:45 Pulse Ox 93 L 08/15/22 11:45 FiO2 27 08/15/22 04:00 Intake & Output 08/14/22 08/15/22 08/15/22 18:59 06:59 18:59 Intake Total 726 Balance 726 Weight 113.398 kg 113.398 kg Intake: IV 10 Invasive Line 1 10 Oral 716 Other: Voiding Method Toilet Toilet Urinal Urinal # Voids 0 1 # Bowel Movements 0 - Labs CBC & Chem 7: 08/14/22 16:44 08/14/22 16:44 Labs: Abnormal Lab Results - Last 24 Hours (Table) 08/14/22 08/14/22 08/14/22 Range/Units 16:44 16:44 17:55 Plt Count 149 L (150-450) k/uL Lymphocytes # (Manual) 0.95 L (1.0-4.8) k/uL VBG pCO2 87 H* (37-51) mmHg VBG HCO3 46 H (24-28) mmol/L Chloride 90 L (98-107) mmol/L Carbon Dioxide 45 H* (22-30) mmol/L Creatinine 1.38 H (0.66-1.25) mg/dL Glucose 101 H (74-99) mg/dL POC Glucose (mg/dL) (70-110) mg/dL 08/15/22 08/15/22 Range/Units 06:17 11:38 Plt Count (150-450) k/uL Lymphocytes # (Manual) (1.0-4.8) k/uL VBG pCO2 (37-51) mmHg VBG HCO3 (24-28) mmol/L Chloride (98-107) mmol/L Carbon Dioxide (22-30) mmol/L Creatinine (0.66-1.25) mg/dL Glucose (74-99) mg/dL POC Glucose (mg/dL) 162 H 180 H (70-110) mg/dL
[2022-08-15 16:23] LABS: Glucose,Whole Blood 179 mg/dL (70-110)
[2022-08-15 20:01] LABS: Glucose,Whole Blood 171 mg/dL (70-110)
[2022-08-15] MEDS: ACETAMINOPHEN TAB 325 MG TAB PO PRN (20:32)
[2022-08-15] MEDS: SYMBICORT 160-4.5 MCG INHALER INHALATION SCH ×2 (20:58→22:30)
[2022-08-16 03:53] VITALS: RESP 19
[2022-08-16 06:01] LABS: Glucose,Whole Blood 186 mg/dL (70-110)
[2022-08-16 06:02] LABS: HCT 39.1 % (39.0-53.0); HGB 12.4 gm/dL (13.0-17.5); MCHC 31.8 g/dL (31.0-37.0); MCV 94.5 fL (80.0-100.0); Mean Platelet Volume 7.6; Platelet Count 189 k/uL (150-450); RBC 4.14 m/uL (4.30-5.90); RDW 13.5 % (11.5-15.5); WBC 18.7 k/uL (3.8-10.6)
[2022-08-16 06:11] LABS: Calcium 8.7 mg/dL (8.4-10.2); Magnesium 1.9 mg/dL (1.6-2.3); Potassium 4.7 mmol/L (3.5-5.1)
[2022-08-16] MEDS: methylPREDNISolone SOD SUCCI 125 MG/2 ML VIAL IV SCH ×2 (06:13→11:55)
[2022-08-16] MEDS: INSULIN ASPART (NovoLOG) 100 UNIT/ML VIAL SQ SCH ×2 (06:14→11:56)
[2022-08-16] MEDS: IPRATROPIUM-ALBUTEROL 3 ML NEB INHALATION SCH ×2 (07:45→11:14)
[2022-08-16] MEDS: SYMBICORT 160-4.5 MCG INHALER INHALATION SCH (07:45)
[2022-08-16] MEDS: NON FORMULARY DRUG (Rosuvastatin 20 MG Tablet) PO SCH (08:50)
[2022-08-16] MEDS: DOXYCYCLINE 100 MG CAP PO SCH (08:56)
[2022-08-16] MEDS: APIXABAN 5 MG TAB PO SCH (08:56)
[2022-08-16] MEDS: GABAPENTIN 100 MG CAP PO SCH (08:56)
[2022-08-16] MEDS: AMIODARONE 200 MG TAB PO SCH (08:56)
[2022-08-16] MEDS: BUMETANIDE 1 MG TAB PO SCH (08:57)
[2022-08-16] MEDS: DIGOXIN 125 MCG TAB PO SCH (08:57)
[2022-08-16] MEDS: ESCITALOPRAM 10 MG TAB PO SCH (08:57)
--- NOTE | 2022-08-16 10:57 | P.PN ---
Subjective Progress Note Date: 08/16/22 Principal diagnosis: Shortness of breath. This is a 76-year-old white male with known history of severe COPD/emphysema, FEV1 is in the range of 20% of the predicted. Patient has chronic hypoxic respiratory failure, maintained on 4 L nasal cannula at home, normally sees Dr. Ware for his underlying COPD. Patient also has AVAPS machine at home, and he is compliant with it. Patient came into the ER with 1 week history of shortness of breath, occasional dry cough, no chest pain, no fever, no chills, no hemoptysis. Patient was just not feeling well. Patient was also complaining of fatigue, and generalized weakness. Chest x-ray showed no evidence of active pulmonary disease. CBC was basically unremarkable, basic metabolic profile unremarkable except for elevated bicarb 45 and creatinine of 1.38, venous blood gases showed a pCO2 of 87 pH of 7.34, patient had negative screening for influenza A and influenza B, RSV and COVID-19 infection patient was admitted and this consult was appreciated patient was admitted with the impression of acute exacerbation of COPD Progress note dated 08/16/2022. 76-year-old male, seen today in room 359. He is sitting at the edge of the bed. He's on 4 L of oxygen. The patient is not receiving any IV fluids. The patient is using BiPAP at 19, with settings of 12/6 and 27%. The patient does not have any distress. He is starting to feel better. White count 18.7, hemoglobin 12.4, hematocrit 39.1, and platelet count 189,000. Sodium 134, potassium 4.7, chloride 87, CO2 40, BUN 42, creatinine 1.38. Objective - Vital Signs Vital signs: Vital Signs Temp 97.8 F 08/16/22 08:53 Pulse 80 08/16/22 08:53 Resp 19 08/16/22 08:53 BP 142/62 08/16/22 08:53 Pulse Ox 95 08/16/22 08:53 FiO2 27 08/16/22 03:52 Intake & Output 08/15/22 08/16/22 08/16/22 18:59 06:59 18:59 Intake Total 1236 480 Output Total 460 Balance 1236 -460 480 Intake: IV 20 Invasive Line 1 20 Oral 1216 480 Output: Urine 460 Other: Voiding Method Toilet Toilet Urinal Urinal # Voids 1 # Bowel Movements 1 - Exam No acute distress, oriented 3. Currently on 4 L of oxygen. HEENT examination is grossly unremarkable. Neck supple. Full range of motion. No adenopathy thyromegaly or neck vein distention. Cardiovascular examination reveals regular rhythm rate. S1-S2 normal. No S3 or S4. No discernible murmur noted. Heart rate 80 bpm. Heart sounds are distant. Lungs reveal scattered bilateral expiratory wheezes and rhonchi. Breath sounds are equal bilaterally. There are no crackles. 4 L saturation is 95%. There is prolongation on forced maneuver. Abdomen soft bowel sounds are heard. No masses or tenderness. Extremities are intact. No cyanosis clubbing or edema. Skin is without rash or lesion. Neurologic examination is brief but nonfocal. - Labs CBC & Chem 7: 08/16/22 05:34 08/16/22 05:34 Labs: Abnormal Lab Results - Last 24 Hours (Table) 08/15/22 08/15/22 08/15/22 Range/Units 11:38 16:17 20:00 WBC (3.8-10.6) k/uL RBC (4.30-5.90) m/uL Hgb (13.0-17.5) gm/dL Sodium (137-145) mmol/L Chloride (98-107) mmol/L Carbon Dioxide (22-30) mmol/L BUN (9-20) mg/dL Creatinine (0.66-1.25) mg/dL Glucose (74-99) mg/dL POC Glucose (mg/dL) 180 H 179 H 171 H (70-110) mg/dL 08/16/22 08/16/22 08/16/22 Range/Units 05:34 05:34 05:58 WBC 18.7 H (3.8-10.6) k/uL RBC 4.14 L (4.30-5.90) m/uL Hgb 12.4 L (13.0-17.5) gm/dL Sodium 134 L (137-145) mmol/L Chloride 87 L (98-107) mmol/L Carbon Dioxide 40 H (22-30) mmol/L BUN 42 H (9-20) mg/dL Creatinine 1.38 H (0.66-1.25) mg/dL Glucose 174 H (74-99) mg/dL POC Glucose (mg/dL) 186 H (70-110) mg/dL Assessment and Plan Assessment: Acute exacerbation of COPD with acute hypoxemic respiratory failure. History of severe COPD, GOLD stage IV, with an FEV1 that is 20% of predicted. The patient uses a Trilogy ventilator at home, in the AVAPSmode. [id number] history of tobacco use. Chronic atrial fibrillation. Essential hypertension. Obstructive sleep apnea syndrome. Secondary pulmonary hypertension/cor pulmonale. Degenerative joint disease. Right nephrectomy, 2006, for hypernephroma. History of melanoma. History of detached retina. Plan: Plan dated 08/16/2022. The patient continues on oxygen therapy during the daytime, and BiPAP at nighttime. Labs, x-rays, and medications are all reviewed. The patient continues on appropriate updrafts, and systemic corticosteroids. He is also receiving doxycycline twice a day. We will continue to follow and make re commendations along the way. Prognosis is guarded. The patient does have severe/stage IV, COPD. Time with Patient: Less than 30
[2022-08-16 11:43] LABS: Glucose,Whole Blood 198 mg/dL (70-110)
[2022-08-16 12:00] VITALS: BP 124/57; PULSE 70; TEMP 98.1
--- NOTE | 2022-08-16 13:58 | P.DS ---
Providers Date of admission: 08/14/22 18:33 Expected date of discharge: 08/16/22 Attending physician: Gretchen Bernardo DO Consults: 08/14/22 18:34 Consult Physician Routine Consulting Provider: Gladys Du Consult Reason/Comments: COPD exacerbation. Acute on chronic hypercarbic respiratory failure. Do you want consulting provider notified?: Yes Primary care physician: [facility] Hospital Course: Discharge Diagnosis: Acute exacerbation of severe COPD Acute on chronic hypoxic respiratory failure Thrombocytopenia, likely reactive Paroxysmal atrial fibrillation Hypertension Dyslipidemia Chronic kidney disease Stage III Obesity with BMI 36.9 Peripheral neuropathy Chronic cardiomyopathy with ejection fraction 45-50%, severe pulmonary hypertension with severe tricuspid regurgitation Hospital Course: Patient is a 76-year-old male with atrial fibrillation on Eliquis, COPD with chronic hypoxic respiratory failure on 4 L nasal cannula, hypertension, dyslipidemia, and multiple other comorbid conditions who presented to the ER with complaints of "feeling unwell". In the ER he underwent an extensive evaluation. Initial vital signs showed a an O2 sat of 90% on 4 L nasal cannula. Laboratory analysis was remarkable for platelets of 149, chloride 90, carbon dioxide 45, and creatinine of 1.38. Influenza A/B/RSV/COVID-19 were negative. VBG showed a pH of 7.34/CO2 87/HCO3 46. Chest x-ray was unremarkable for acute process. In the ER he was given steroids, bronchodilators, and doxycycline. He was admitted for further monitoring. Pulmonary was consulted. He was continued on doxycycline steroids and bronchodilators. He continued to improve. His CO2 improved significantly. He was verbally cleared for discharge by pulmonary. His breathing was back to baseline and he was determined stable for discharge Follow-up: Dr. Ware in 1 week, [facility] in 3-5 days. Complete prednisone vesna, the resume prednisone 5 mg daily. Patient seen and examined at bedside. Breathing is back to baseline, no cough, eating and drinking well. He feels as though he can do well at home. Vital signs reviewed and stable. General: nontoxic, no distress, appears at stated age Derm: warm, dry Head: atraumatic, normocephalic, symmetric Eyes: EOMI, no lid lag, anicteric sclera Mouth: no lip lesion, mucus membranes moist Cardiovascular: S1S2 reg, no murmur, positive posterior tibial pulse bilateral, Lungs: Faint inspiratory wheeze bilaterally, no rhonchi, no rales , no accessory muscle use Abdominal: soft, nontender to palpation, no guarding, no appreciable organomegaly Ext: no gross muscle atrophy, no edema, no contractures Neuro: CN II-XI grossly intact, no focal neuro deficits Psych: Alert, oriented, appropriate affect A total of 37 minutes of time were spent preparing this complex discharge summary. Patient was discharged on 08/16/22. This dictation was prepared using [employer] voice recognition software. Though every attempt is made to correct errors during during dictation some may still exist. Patient Condition at Discharge: Fair Plan - Discharge Summary New Discharge Prescriptions: New predniSONE [Deltasone] 0 mg PO DIRECTED #24 tab Gabapentin [Neurontin] 200 mg PO BID #120 cap Doxycycline [Vibramycin] 100 mg PO BID #7 cap Continue Vit C/E/Zn/Coppr/Lutein/Zeaxan [Preservision Areds 2 Softgel] 1 cap PO BID Escitalopram [Lexapro] 10 mg PO DAILY Apixaban [Eliquis] 5 mg PO BID 30 Days #60 tab Famotidine [Pepcid] 20 mg PO DAILY Bumetanide [BUMEX] 1 mg PO BID 30 Days #60 tablet Melatonin 5 mg PO HS 30 Days #30 tablet Amiodarone [Cordarone] 200 mg PO DAILY Roflumilast [Daliresp] 500 mcg PO DAILY Albuterol Nebulized [Ventolin Nebulized] 2.5 mg INHALATION RT-Q4H Potassium Chloride ER [K-Dur 20] 20 meq PO DAILY #30 tab predniSONE 5 mg PO DAILY #0 Rosuvastatin [Crestor] 10 mg PO DAILY Digoxin [Lanoxin] 125 mcg PO DAILY Ipratropium [place] 0.06%Nasal [Atrovent Nasal 0.06%] 1 spray EA NOSTRIL BID Ferrous Sulfate [Iron (65 MG Elemental)] 325 mg PO DAILY diphenhydrAMINE [Benadryl] 50 mg PO HS PRN 30 Days #30 capsule PRN Reason: Insomnia Discharge Medication List Vit C/E/Zn/Coppr/Lutein/Zeaxan [Preservision Areds 2 Softgel] 1 cap PO BID 08/03/17 [History] Escitalopram [Lexapro] 10 mg PO DAILY 11/25/20 [History] Apixaban [Eliquis] 5 mg PO BID 30 Days #60 tab 11/26/20 [Rx] Amiodarone [Cordarone] 200 mg PO DAILY 12/02/20 [History] Albuterol Nebulized [Ventolin Nebulized] 2.5 mg INHALATION RT-Q4H 01/17/21 [History] Roflumilast [Daliresp] 500 mcg PO DAILY 01/17/21 [History] Potassium Chloride ER [K-Dur 20] 20 meq PO DAILY #30 tab 01/26/21 [Rx] predniSONE 5 mg PO DAILY #0 08/06/21 [Rx] Digoxin [Lanoxin] 125 mcg PO DAILY 11/15/21 [History] Famotidine [Pepcid] 20 mg PO DAILY 11/15/21 [History] Rosuvastatin [Crestor] 10 mg PO DAILY 11/15/21 [History] Ferrous Sulfate [Iron (65 MG Elemental)] 325 mg PO DAILY 05/31/22 [History] Ipratropium [place] 0.06%Nasal [Atrovent Nasal 0.06%] 1 spray EA NOSTRIL BID 05/31/22 [History] Bumetanide [BUMEX] 1 mg PO BID 30 Days #60 tablet 06/02/22 [Rx] Melatonin 5 mg PO HS 30 Days #30 tablet 06/02/22 [Rx] diphenhydrAMINE [Benadryl] 50 mg PO HS PRN 30 Days #30 capsule 06/02/22 [Rx] Doxycycline [Vibramycin] 100 mg PO BID #7 cap 08/16/22 [Rx] Gabapentin [Neurontin] 200 mg PO BID #120 cap 08/16/22 [Rx] predniSONE [Deltasone] 0 mg PO DIRECTED #24 tab 08/16/22 [Rx] Follow up Appointment(s)/Referral(s): Chris Ware DO [Doctor of Osteopathic Medicine] - 3 Days (Tuesday) [facility] [Primary Care Provider] - 08/19/22 3:00 pm () Activity/Diet/Wound Care/Special Instructions: Activity: as tolerated Diet: low salt Special Instructions: Home care orders faxed to [facility]. [place] will be arranging home care. Please call to follow up. #[phone]. Continued to do well abstaining from smoking. Please resume your home inhaler/nebulizer regimen as prescribed by Dr. Ware prior to this hospital stay. You have been given a prescription for a prednisone taper. Once this is completed please resume your prednisone 5 mg daily. Resume using your AVPS. Thank you for trusting us with your care, we wish you well on your journey better health. Discharge Disposition: HOME WITH HOME HEALTH SERVICES
== END 2022-08-16 14:59 | disposition home health service (06) | DRG 190 ==
LOC: EC 14:51 → 3SCARD 18:33
PROVIDERS: ADMIT Internal Medicine; ATTEND Internal Medicine
PROC: 5A09357 Assistance with Respiratory Ventilation, Less than 24 Consecutive Hours, Continuous Positive Airway Pressure (ICD-10-PCS; principal; 2022-08-14)
DX: J43.9 Emphysema, unspecified (principal); J96.21 Acute and chronic respiratory failure with hypoxia; J96.22 Acute and chronic respiratory failure with hypercapnia; I42.8 Other cardiomyopathies; Z20.822 Contact with and (suspected) exposure to COVID-19; M19.90 Unspecified osteoarthritis, unspecified site; N18.30 Chronic kidney disease, stage 3 unspecified; I12.9 Hypertensive chronic kidney disease with stage 1 through stage 4 chronic kidney disease, or unspecified chronic kidney disease; Z68.36 Body mass index [BMI] 36.0-36.9, adult; D69.6 Thrombocytopenia, unspecified; E78.5 Hyperlipidemia, unspecified; I48.0 Paroxysmal atrial fibrillation; I07.1 Rheumatic tricuspid insufficiency; H91.90 Unspecified hearing loss, unspecified ear; H54.8 Legal blindness, as defined in USA; I27.29 Other secondary pulmonary hypertension; G62.9 Polyneuropathy, unspecified; G47.33 Obstructive sleep apnea (adult) (pediatric); E66.9 Obesity, unspecified; F17.210 Nicotine dependence, cigarettes, uncomplicated; I45.10 Unspecified right bundle-branch block; Z79.01 Long term (current) use of anticoagulants; Z79.899 Other long term (current) drug therapy; Z85.528 Personal history of other malignant neoplasm of kidney; Z85.820 Personal history of malignant melanoma of skin; Z90.5 Acquired absence of kidney; Z97.4 Presence of external hearing-aid; Z88.8 Allergy status to other drugs, medicaments and biological substances
CPT/HCPCS: 36415; 71046; 80048; 80053; 81003; 82803; 83605; 83735; 83880; 84484; 85025; 85027; 87636; 93005; 94640; 94660; 94760; 96374; 99285

== ENCOUNTER 2022-08-19 16:53 | Inpatient (IN) | payer OTHER, MEDICARE ==
[2022-08-19] MEDS ORDERED: ALBUTEROL NEBULIZED 2.5 MG/3 ML INHALATION STA (17:16)
[2022-08-19] MEDS ORDERED: IPRATROPIUM-ALBUTEROL 3 ML NEB INHALATION STA (17:16)
[2022-08-19 18:13] LABS: Basophils % (A) 0 %; Eosinophils % (A) 0 %; HCT 38.9 % (39.0-53.0); HGB 12.6 gm/dL (13.0-17.5); Lymphocytes # (A) 0.5 k/uL (1.0-4.8); Lymphocytes % (A) 6 %; MCH 31.1 pg (25.0-35.0); MCHC 32.3 g/dL (31.0-37.0); MCV 96.2 fL (80.0-100.0); Mean Platelet Volume 7.4; Monocytes # (A) 0.2 k/uL (0-1.0); Monocytes % (A) 3 %; Neutrophils # (A) 7.3 k/uL (1.3-7.7); Neutrophils % (A) 90 %; Platelet Count 167 k/uL (150-450); RBC 4.05 m/uL (4.30-5.90); RDW 13.5 % (11.5-15.5)
[2022-08-19 18:17] LABS: Albumin 3.7 g/dL (3.5-5.0); Calcium 8.8 mg/dL (8.4-10.2); Potassium 4.6 mmol/L (3.5-5.1); Total Bilirubin 0.7 mg/dL (0.2-1.3); Total Protein 6.2 g/dL (6.3-8.2)
[2022-08-19 18:24] LABS: Prothrombin Time 10.2 sec (9.0-12.0)
[2022-08-19 18:28] LABS: Partial Thromboplastin Time 21.1 sec (22.0-30.0)
--- NOTE | 2022-08-19 19:10 | XR ---
EXAMINATION: XR chest 1V portable DATE AND TIME: 08/19/2022 5:49 PM CLINICAL INDICATION: PHH; sob TECHNIQUE: AP upright portable COMPARISON: 08/14/2022 FINDINGS: The lung bases show evidence of mild silhouetting of the pulmonary vasculature by a fine reticular pa ttern of increased density, a finding which can correlate with a clinical diagnosis of mild interstit ial phase pulmonary edema, provided there is no clinical evidence for infection. The pleural spaces are negative. EKG leads. The cardiac silhouette is not enlarged (AP x-ray technique). The remainder of the mediasti nal silhouette is unremarkable. The skeletal structures and soft tissues are negative for acute findings. IMPRESSION: Bibasilar mild silhouetting of the pulmonary vasculature.
[2022-08-19] MEDS ORDERED: methylPREDNISolone SOD SUCCI 125 MG/2 ML VIAL IV STA (19:24)
[2022-08-19] MEDS ORDERED: BUMETANIDE 0.25 MG/ML 4 ML VIAL IVP STA (19:26)
--- NOTE | 2022-08-19 19:27 | ED ---
SOB HPI - General Chief Complaint: Shortness of Breath Stated Complaint: SOB Time Seen by Provider: 08/19/22 17:05 Source: patient Mode of arrival: wheelchair Limitations: no limitations - History of Present Illness Initial Comments: 76 year old male past medical history of COPD on home O2 4 L, A. fib, congestive heart failure presents emergency department reporting shortness of breath. Patient was recently hospitalized for similar complaint. Was discharged home with steroids and antibiotics. Has been taking them as directed. Went to his primary care office today for his follow-up. They found him to have low oxygen saturations. Patient would desaturate into the 70s with ambulation on his 4 L. At rest the patient was 87%. Does admit to a chronic cough. Cough is nonproductive. No fevers. Denies any chest pain. No worsening of his lower extremity swelling. Has been taking all his medications as directed. States he uses his nebulizer twice a day. His continues to smoke. No other alleviating, precipitating or modifying factors - Related Data Home Medications Medication Instructions Recorded Confirmed Vit C/E/Zn/Coppr/Lutein/Zeaxan 1 cap PO BID 08/03/17 08/19/22 [Preservision Areds 2 Softgel] Escitalopram [Lexapro] 10 mg PO DAILY 11/25/20 08/19/22 Amiodarone [Cordarone] 200 mg PO DAILY 12/02/20 08/19/22 Albuterol Nebulized [Ventolin 2.5 mg INHALATION RT-Q4H 01/17/21 08/19/22 Nebulized] Roflumilast [Daliresp] 500 mcg PO DAILY 01/17/21 08/19/22 Digoxin [Lanoxin] 125 mcg PO DAILY 11/15/21 08/19/22 Famotidine [Pepcid] 20 mg PO DAILY 11/15/21 08/19/22 Rosuvastatin [Crestor] 10 mg PO DAILY 11/15/21 08/19/22 Ferrous Sulfate [Iron (65 MG 325 mg PO DAILY 05/31/22 08/19/22 Elemental)] Ipratropium [place] 0.06%Nasal 1 spr EA NOSTRIL BID 05/31/22 08/19/22 [Atrovent Nasal 0.06%] Previous Rx's Medication Instructions Recorded Apixaban [Eliquis] 5 mg PO BID 30 Days #60 tab 11/26/20 Potassium Chloride ER [K-Dur 20] 20 meq PO DAILY #30 tab 01/26/21 Bumetanide [BUMEX] 1 mg PO BID 30 Days #60 tablet 06/02/22 Melatonin 5 mg PO HS 30 Days #30 tablet 06/02/22 diphenhydrAMINE [Benadryl] 50 mg PO HS PRN 30 Days #30 capsule 06/02/22 Doxycycline [Vibramycin] 100 mg PO BID #7 cap 08/16/22 Gabapentin [Neurontin] 200 mg PO BID #120 cap 08/16/22 Budesonide-Formot 160-4.5 Mcg 2 puff INHALATION RT-BID #1 each 08/20/22 [Symbicort 160-4.5 Mcg Inhaler] predniSONE See Taper PO DIRECTED #30 tab 08/20/22 Allergies Allergy/AdvReac Type Severity Reaction Status Date / Time atorvastatin [From Lipitor] AdvReac Muscle pain Verified 08/19/22 18:52 Review of Systems ROS Statement: Those systems with pertinent positive or pertinent negative responses have been documented in the HPI. ROS Other: All systems not noted in ROS Statement are negative. Past Medical History Past Medical History: Atrial Fibrillation, Cancer, COPD, Eye Disorder, Hearing Disorder / Deafness, Hyperlipidemia, Hypertension, Osteoarthritis (OA) Additional Past Medical History / Comment(s): Emphysema (takes inhalers and uses oxygen at home). Hx Kidney Cancer in 2006, R nephrectomy.q Left eye detached retina. Wet Macular Degeneration right eye. Hx Melanoma on back. Bilateral hearing aid use, legally blind. History of Any Multi-Drug Resistant Organisms: None Reported Past Surgical History: Back Surgery Additional Past Surgical History / Comment(s): Right kidney removed. Left eye surgery X3 for detacted retina. Bilateral cataract surgery. Mohs surgery thoracic spine for melanoma. Past Anesthesia/Blood Transfusion Reactions: Previous Problems w/ Anesthesia Additional Past Anesthesia/Blood Transfusion Reaction / Comment(s): States low heart rate, light-headed and low BP X1 with anesthesia. "Got broke vocal cord and could not talk for 2 months after anesthesia one time." Past Psychological History: No Psychological Hx Reported Smoking Status: Current every day smoker Past Alcohol Use History: Daily Past Drug Use History: None Reported - Past Family History Mother Family Medical History: Cancer Additional Family Medical History / Comment(s): Brain Cancer. Father Family Medical History: CVA/TIA General Exam Limitations: no limitations General appearance: alert, anxious Head exam: Present: atraumatic, normocephalic, normal inspection Eye exam: Present: normal appearance, PERRL, EOMI. Absent: scleral icterus, conjunctival injection, periorbital swelling ENT exam: Present: normal exam, mucous membranes moist Neck exam: Present: normal inspection. Absent: tenderness, meningismus, lymphadenopathy Respiratory exam: Present: wheezes, accessory muscle use, decreased breath sounds. Absent: respiratory distress, rales, rhonchi, stridor Cardiovascular Exam: Present: regular rate, normal rhythm, normal heart sounds. Absent: systolic murmur, diastolic murmur, rubs, gallop, clicks GI/Abdominal exam: Present: soft, normal bowel sounds. Absent: distended, tenderness, guarding, rebound, rigid Extremities exam: Present: normal inspection, full ROM, normal capillary refill. Absent: tenderness, pedal edema, joint swelling, calf tenderness Back exam: Present: normal inspection Neurological exam: Present: alert, oriented X3, CN II-XII intact Psychiatric exam: Present: normal affect, normal mood Skin exam: Present: warm, dry, intact, normal color. Absent: rash Course Vital Signs 08/19/22 08/19/22 08/19/22 16:55 16:57 17:20 Temperature 98.6 F Pulse Rate 87 77 Pulse Rate [ Pulse Oximetery ] Respiratory 24 22 18 Rate Blood Pressure 142/66 Blood Pressure [Left Arm] O2 Sat by Pulse 87 L Oximetry 08/19/22 08/19/22 08/19/22 17:30 17:31 17:41 Temperature Pulse Rate 78 78 80 Pulse Rate [ Pulse Oximetery ] Respiratory 20 20 20 Rate Blood Pressure Blood Pressure [Left Arm] O2 Sat by Pulse Oximetry 08/19/22 08/19/22 20:23 21:15 Temperature 97.6 F Pulse Rate 71 Pulse Rate [ 72 Pulse Oximetery ] Respiratory 20 18 Rate Blood Pressure 126/69 Blood Pressure 147/76 [Left Arm] O2 Sat by Pulse 93 L 93 L Oximetry Medical Decision Making - Medical Decision Making Was pt. sent in by a medical professional or institution (, PA, BIBLE WORKER, urgent care, hospital, or retirement...) When possible be specific @ -No Did you speak to anyone other than the patient for history (EMS, parent, family, police, friend...)? What history was obtained from this source @ -Patient's son Did you review nursing and triage notes (agree or disagree)? Why? @ -I reviewed and agree with nursing and triage notes Were old charts reviewed (outside hosp., previous admission, EMS record, old EKG, old radiological studies, urgent care reports/EKG's, retirement records)? Report findings @ - old charts were reviewed - recent discharge summary Differential Diagnosis (chest pain, altered mental status, abdominal pain women, abdominal pain men, vaginal bleeding, weakness, fever, dyspnea, syncope, headache, dizziness, GI bleed, back pain, seizure, CVA, palpatations, mental health, musculoskeletal)? @ -acs, pleurisy, chest wall pain, nstemi, pe, CAP, COPD EKG interpreted by me (3pts min.). @ -yes X-rays interpreted by me (1pt min.). @ -yes CT interpreted by me (1pt min.). @ -None done U/S interpreted by me (1pt. min.). @ -None done What testing was considered but not performed or refused? (CT, X-rays, U/S, labs)? Why? @ -None What meds were considered but not given or refused? Why? @ -None Did you discuss the management of the patient with other professionals (karyn singh i.e. , PA, BIBLE WORKER, lab, RT, psych nurse, social worker psychiatric, mill crane operator, teacher, navigating officer, telephonic case manager)? Give summary @ -Dr. Kumar Was smoking cessation discussed for >3mins.? @ -No Was critical care preformed (if so, how long)? @ -No Were there social determinants of health that impacted care today? How? (Homelessness, low income, unemployed, alcoholism, drug addiction, transport ation, low edu. Level, literacy, decrease access to med. care, fpc, rehab)? @ -No Was there de-escalation of care discussed even if they declined (Discuss DNR or withdrawal of care, Hospice)? DNR status @ -No What co-morbidities impacted this encounter? (DM, HTN, Smoking, COPD, CAD, Cancer, CVA, ARF, Chemo, Hep., AIDS, mental health diagnosis, sleep apnea, morbid obesity)? @ -COPD Was patient admitted / discharged? Hospital course, mention meds given and route, prescriptions, significant lab abnormalities, going to OR and other pertinent info. @ -Upon arrival patient is placed into trauma 2. He does have increased work of breathing. He is placed on 15 L and given a DuoNeb breathing treatment followed by an albuterol treatment. Laboratory studies are conducted and reviewed. Elevated CO2 of 41 which is chronic for the patient. Chest x-ray demonstrates a little bit of pulmonary vascular congestion. I did order steroids and breathing treatments. Patient will be admitted to Dr. Kumar to admit the patient Undiagnosed new problem with uncertain prognosis? @ -No Drug Therapy requiring intensive monitoring for toxicity (Heparin, Nitro, Insulin, Cardizem)? @ -No Were any procedures done? @ -No Diagnosis/symptom? @ -acute copd exacerbation Acute, or Chronic, or Acute on Chronic? @ -acute on chronic Uncomplicated (without systemic symptoms) or Complicated (systemic symptoms)? @ -complicated Side effects of treatment? @ -No Exacerbation, Progression, or Severe Exacerbation? @ -severe exacerbation Poses a threat to life or bodily function? How? (Chest pain, [place], [place], pneumonia, PE, COPD, DKA, ARF, appy, cholecystitis, CVA, Diverticulitis, Homicidal, Suicidal, threat to staff... and all critical care pts) @ -yes - Lab Data Result diagrams: 08/20/22 07:41 08/20/22 07:41 Lab Results 08/19/22 08/19/22 08/19/22 Range/Units 17:51 17:51 17:51 WBC 8.0 (3.8-10.6) k/uL RBC 4.05 L (4.30-5.90) m/uL Hgb 12.6 L (13.0-17.5) gm/dL Hct 38.9 L (39.0-53.0) % MCV 96.2 (80.0-100.0) fL MCH 31.1 (25.0-35.0) pg MCHC 32.3 (31.0-37.0) g/dL RDW 13.5 (11.5-15.5) % Plt Count 167 (150-450) k/uL MPV 7.4 Neutrophils % 90 % Lymphocytes % 6 % Monocytes % 3 % Eosinophils % 0 % Basophils % 0 % Neutrophils # 7.3 (1.3-7.7) k/uL Lymphocytes # 0.5 L (1.0-4.8) k/uL Monocytes # 0.2 (0-1.0) k/uL Eosinophils # 0.0 (0-0.7) k/uL Basophils # 0.0 (0-0.2) k/uL PT 10.2 (9.0-12.0) sec INR 1.0 (<1.2) APTT 21.1 L (22.0-30.0) sec Sodium 141 (137-145) mmol/L Potassium 4.6 (3.5-5.1) mmol/L Chloride 96 L (98-107) mmol/L Carbon Dioxide 41 H* (22-30) mmol/L Anion Gap 4 mmol/L BUN 44 H (9-20) mg/dL Creatinine 1.58 H (0.66-1.25) mg/dL Est GFR (CKD-EPI)AfAm 49 (>60 ml/min/1.73 sqM) Est GFR (CKD-EPI)NonAf 42 (>60 ml/min/1.73 sqM) Glucose 123 H (74-99) mg/dL Plasma Lactic Acid [place] (0.7-2.0) mmol/L Calcium 8.8 (8.4-10.2) mg/dL Total Bilirubin 0.7 (0.2-1.3) mg/dL AST 20 (17-59) U/L ALT 24 (4-49) U/L Alkaline Phosphatase 87 (38-126) U/L Troponin I (0.000-0.034) ng/mL NT-Pro-B Natriuret Pep pg/mL Total Protein 6.2 L (6.3-8.2) g/dL Albumin 3.7 (3.5-5.0) g/dL Influenza Type A (PCR) (Not Detectd) Influenza Type B (PCR) (Not Detectd) RSV (PCR) (Not Detectd) SARS-CoV-2 (PCR) (Not Detectd) 08/19/22 08/19/22 08/19/22 Range/Units 17:51 17:51 17:51 WBC (3.8-10.6) k/uL RBC (4.30-5.90) m/uL Hgb (13.0-17.5) gm/dL Hct (39.0-53.0) % MCV (80.0-100.0) fL MCH (25.0-35.0) pg MCHC (31.0-37.0) g/dL RDW (11.5-15.5) % Plt Count (150-450) k/uL MPV Neutrophils % % Lymphocytes % % Monocytes % % Eosinophils % % Basophils % % Neutrophils # (1.3-7.7) k/uL Lymphocytes # (1.0-4.8) k/uL Monocytes # (0-1.0) k/uL Eosinophils # (0-0.7) k/uL Basophils # (0-0.2) k/uL PT (9.0-12.0) sec INR (<1.2) APTT (22.0-30.0) sec Sodium (137-145) mmol/L Potassium (3.5-5.1) mmol/L Chloride (98-107) mmol/L Carbon Dioxide (22-30) mmol/L Anion Gap mmol/L BUN (9-20) mg/dL Creatinine (0.66-1.25) mg/dL Est GFR (CKD-EPI)AfAm (>60 ml/min/1.73 sqM) Est GFR (CKD-EPI)NonAf (>60 ml/min/1.73 sqM) Glucose (74-99) mg/dL Plasma Lactic Acid Fabiano 1.6 (0.7-2.0) mmol/L Calcium (8.4-10.2) mg/dL Total Bilirubin (0.2-1.3) mg/dL AST (17-59) U/L ALT (4-49) U/L Alkaline Phosphatase (38-126) U/L Troponin I <0.012 (0.000-0.034) ng/mL NT-Pro-B Natriuret Pep 275 pg/mL Total Protein (6.3-8.2) g/dL Albumin (3.5-5.0) g/dL Influenza Type A (PCR) (Not Detectd) Influenza Type B (PCR) (Not Detectd) RSV (PCR) (Not Detectd) SARS-CoV-2 (PCR) (Not Detectd) 08/19/22 Range/Units 17:51 WBC (3.8-10.6) k/uL RBC (4.30-5.90) m/uL Hgb (13.0-17.5) gm/dL Hct (39.0-53.0) % MCV (80.0-100.0) fL MCH (25.0-35.0) pg MCHC (31.0-37.0) g/dL RDW (11.5-15.5) % Plt Count (150-450) k/uL MPV Neutrophils % % Lymphocytes % % Monocytes % % Eosinophils % % Basophils % % Neutrophils # (1.3-7.7) k/uL Lymphocytes # (1.0-4.8) k/uL Monocytes # (0-1.0) k/uL Eosinophils # (0-0.7) k/uL Basophils # (0-0.2) k/uL PT (9.0-12.0) sec INR (<1.2) APTT (22.0-30.0) sec Sodium (137-145) mmol/L Potassium (3.5-5.1) mmol/L Chloride (98-107) mmol/L Carbon Dioxide (22-30) mmol/L Anion Gap mmol/L BUN (9-20) mg/dL Creatinine (0.66-1.25) mg/dL Est GFR (CKD-EPI)AfAm (>60 ml/min/1.73 sqM) Est GFR (CKD-EPI)NonAf (>60 ml/min/1.73 sqM) Glucose (74-99) mg/dL Plasma Lactic Acid [place] (0.7-2.0) mmol/L Calcium (8.4-10.2) mg/dL Total Bilirubin (0.2-1.3) mg/dL AST (17-59) U/L ALT (4-49) U/L Alkaline Phosphatase (38-126) U/L Troponin I (0.000-0.034) ng/mL NT-Pro-B Natriuret Pep pg/mL Total Protein (6.3-8.2) g/dL Albumin (3.5-5.0) g/dL Influenza Type A (PCR) Not Detected (Not Detectd) Influenza Type B (PCR) Not Detected (Not Detectd) RSV (PCR) Not Detected (Not Detectd) SARS-CoV-2 (PCR) Not Detected (Not Detectd) - EKG Data EKG Comments: EKG demonstrates sinus rhythm with rate 81. MO interval 143. QRS 145. QTC of 400. There is a right bundle branch block. No acute ST segment elevations Disposition Clinical Impression: On home oxygen therapy, Chronic respiratory failure with hypoxia, CO2 retention Disposition: ADMITTED IP TO THIS HOSP Condition: Stable Is patient prescribed a controlled substance at d/c from ED?: No Time of Disposition: 19:53 Decision to Admit Reason: Admit from EC Decision Date: 08/19/22 Decision Time: 19:53
[2022-08-19] MEDS ORDERED: NALOXONE 0.4 MG/ML 1 ML VIAL IV PRN (19:53)
[2022-08-19] MEDS ORDERED: diphenhydrAMINE 25 MG CAP PO PRN (20:16)
[2022-08-19] MEDS ORDERED: IPRATROPIUM-ALBUTEROL 3 ML NEB INHALATION PRN (20:46)
[2022-08-19] MEDS ORDERED: MELATONIN 5 MG TABLET PO SCH (21:00)
[2022-08-19] MEDS: APIXABAN 5 MG TAB PO SCH (21:39)
[2022-08-19] MEDS: GABAPENTIN 100 MG CAP PO SCH (21:39)
[2022-08-19] MEDS: DOXYCYCLINE 100 MG CAP PO SCH (21:48)
[2022-08-19] MEDS: IPRATROPIUM BROMIDE 0.06% NASAL SPRAY (15 ML) EA NOSTRIL SCH (21:49)
--- NOTE | 2022-08-19 23:34 | P.HPIM ---
History of Present Illness H&P Date: 08/19/22 The patient is a 76-year-old male with a PMH of severe COPD, chronic hypoxic respiratory failure on 4 L nasal cannula oxygen continuously at home, paroxysmal A. fib on Eliquis, hypertension, hyperlipidemia, chronic kidney disease, and systolic CHF who presents to the emergency room with complaints of shortness of breath. Of note, the patient was recently admitted to the hospital for hypoxic and hypercapnic respiratory failure and was discharged on 08/16. The patient states that although he had initial improvement, he continued to gradually feel worse. The patient went to see his PCP earlier today where he was noted to be hypoxic with SpO2 in the 70s with ambulation while on 4 L nasal cannula oxygen. The patient denies experiencing lower extremity swelling, orthopnea, chest dis comfort, or cough. He also denied fever, chills, nausea, vomiting. In the emergency room, the patient underwent an extensive evaluation. Chest x- ray revealed no overt acute abnormalities aside from by basilar mild silhouetting of the pulmonary vasculature. EKG revealed sinus rhythm with a right bundle branch block at 81 bpm with diffuse T-wave flattening as reviewed by me. Upon presentation the patient was noted to be 87% SpO2 on nasal cannula 5 L oxygen. BP was 142/66, pulse 87, temp 98.6F, and respiratory rate 24. Laboratory evaluation was remarkable for hemoglobin 12.6, WBC count 8.0, CO2 41, BUN 44, creatinine 1.58 (1.38 on discharge), proBNP 275, troponin less than 0.012 with influenza, RSV, and Covid testing negative. ED documentation reviewed and case discussed with ED provider. Review of systems: Pertinent positives and negatives as discussed in HPI, a complete review of systems was performed and all other systems are negative. Physical examination: Vital signs reviewed General: non toxic, no distress, appears at stated age, obese Derm: no unusual rashes/lesions, warm Head: atraumatic, normocephalic, symmetric Eyes: EOMI, no lid lag, anicteric sclera, pupils equal round reactive to light ENT: Nose and ears atraumatic Neck: No cervical lymphadenopathy, trachea midline, supple Mouth: no lip lesion, mucus membranes moist Cardiovascular: S1S2 reg, no murmur, positive dorsalis pedis pulse bilateral, no edema Lungs: Poor air entry bilaterally with expiratory wheezing noted, no rales or rhonchi appreciated, no accessory muscle use Abdominal: soft, nontender to palpation, no guarding Ext: muscle strength 5 out of 5 in all 4 extremities grossly, no gross muscle atrophy, no contractures, Neuro: CN II-XI grossly intact, no gross focal neuro deficits Psych: Alert, oriented, appropriate affect Assessment: Acute on chronic hypoxic respiratory failure secondary to acute COPD exacerbation OBDULIO on chronic kidney disease Chronic conditions: A. fib, hypertension, hyperlipidemia, systolic CHF Imaging: Chest x-ray revealed no overt acute abnormalities aside from by basilar mild silhouetting of the pulmonary vasculature. EKG revealed sinus rhythm with a right bundle branch block at 81 bpm with diffuse T-wave flattening as reviewed by me. Data Review: Upon presentation the patient was noted to be 87% SpO2 on nasal cannula 5 L oxygen. BP was 142/66, pulse 87, temp 98.6F, and respiratory rate 24. Laboratory evaluation was remarkable for hemoglobin 12.6, WBC count 8.0, CO2 41, BUN 44, creatinine 1.58 (1.38 on discharge), proBNP 275, troponin less than 0.012 with influenza, RSV, and Covid testing negative. Plan: Obtain ABG Agree with Solu-Medrol 40 mg IV every 8 hour Pulmonary consulted DuoNeb's [id number]-[id number]-stfau and when necessary inhaled Hold off on home Bumex dose at this time due to acute kidney injury with low BNP Doxycycline 100 mg by mouth twice a day Continue with home medications: -Amiodarone 200 mg by mouth daily -Eliquis 5 mg by mouth twice a day -Lexapro 10 mg by mouth daily -Gabapentin 200 mg by mouth twice a day -Crestor 10 mg by mouth daily -Monitor BMP daily DVT prophylaxis: Eliquis The patient is admitted with an anticipated than 2 midnight stay for evaluation of COPD exacerbation CODE STATUS: Full Code Discussed with: Patient Anticipated discharge place: Home Past Medical History Past Medical History: Atrial Fibrillation, Cancer, COPD, Eye Disorder, Hearing Disorder / Deafness, Hyperlipidemia, Hypertension, Osteoarthritis (OA) Additional Past Medical History / Comment(s): Emphysema (takes inhalers and uses oxygen at home). Hx Kidney Cancer in 2006, R nephrectomy.q Left eye detached retina. Wet Macular Degeneration right eye. Hx Melanoma on back. Bilateral hearing aid use, legally blind. History of Any Multi-Drug Resistant Organisms: None Reported Past Surgical History: Back Surgery Additional Past Surgical History / Comment(s): Right kidney removed. Left eye surgery X3 for detacted retina. Bilateral cataract surgery. Mohs surgery thoracic spine for melanoma. Past Anesthesia/Blood Transfusion Reactions: Previous Problems w/ Anesthesia Additional Past Anesthesia/Blood Transfusion Reaction / Comment(s): States low heart rate, light-headed and low BP X1 with anesthesia. "Got broke vocal cord and could not talk for 2 months after anesthesia one time." Past Psychological History: No Psychological Hx Reported Smoking Status: Current every day smoker Past Alcohol Use History: Daily Additional Past Alcohol Use History / Comment(s): States that he drinks Past Drug Use History: None Reported - Past Family History Mother Family Medical History: Cancer Additional Family Medical History / Comment(s): Brain Cancer. Father Family Medical History: CVA/TIA Medications and Allergies Home Medications Medication Instructions Recorded Confirmed Type Vit C/E/Zn/Coppr/Lutein/Zeaxan 1 cap PO BID 08/03/17 08/19/22 History [Preservision Areds 2 Softgel] Escitalopram [Lexapro] 10 mg PO DAILY 11/25/20 08/19/22 History Apixaban [Eliquis] 5 mg PO BID 30 Days #60 tab 11/26/20 08/19/22 Rx Amiodarone [Cordarone] 200 mg PO DAILY 12/02/20 08/19/22 History Albuterol Nebulized [Ventolin 2.5 mg INHALATION RT-Q4H 01/17/21 08/19/22 History Nebulized] Roflumilast [Daliresp] 500 mcg PO DAILY 01/17/21 08/19/22 History Potassium Chloride ER [K-Dur 20] 20 meq PO DAILY #30 tab 01/26/21 08/19/22 Rx Digoxin [Lanoxin] 125 mcg PO DAILY 11/15/21 08/19/22 History Famotidine [Pepcid] 20 mg PO DAILY 11/15/21 08/19/22 History Rosuvastatin [Crestor] 10 mg PO DAILY 11/15/21 08/19/22 History Ferrous Sulfate [Iron (65 MG 325 mg PO DAILY 05/31/22 08/19/22 History Elemental)] Ipratropium [place] 0.06%Nasal 1 spr EA NOSTRIL BID 05/31/22 08/19/22 History [Atrovent Nasal 0.06%] Bumetanide [BUMEX] 1 mg PO BID 30 Days #60 tablet 06/02/22 08/19/22 Rx Melatonin 5 mg PO HS 30 Days #30 tablet 06/02/22 08/19/22 Rx diphenhydrAMINE [Benadryl] 50 mg PO HS PRN 30 Days #30 capsule 06/02/22 08/19/22 Rx Doxycycline [Vibramycin] 100 mg PO BID #7 cap 08/16/22 08/19/22 Rx Gabapentin [Neurontin] 200 mg PO BID #120 cap 08/16/22 08/19/22 Rx predniSONE 5 mg PO DIRECTED 08/19/22 08/19/22 History predniSONE [Deltasone] See Taper PO DIRECTED 08/19/22 08/19/22 History Allergies Allergy/AdvReac Type Severity Reaction Status Date / Time atorvastatin [From Lipitor] AdvReac Muscle pain Verified 08/19/22 18:52 Physical Exam Vitals: Vital Signs Temp Pulse Pulse Resp BP BP Pulse Ox 08/19/22 21:15 97.6 F 72 18 147/76 93 L 08/19/22 20:23 71 20 126/69 93 L 08/19/22 17:41 80 20 08/19/22 17:31 78 20 08/19/22 17:30 78 20 08/19/22 17:20 77 18 08/19/22 16:57 22 08/19/22 16:55 98.6 F 87 24 142/66 87 L Intake and Output 08/19/22 08/19/22 08/20/22 14:59 22:59 06:59 Intake Total 400 Balance 400 Intake: Oral 400 Other: Weight 112.491 kg Results CBC & Chem 7: 08/19/22 17:51 08/19/22 17:51 Labs: Abnormal Lab Results - Last 24 Hours (Table) 08/19/22 08/19/22 08/19/22 Range/Units 17:51 17:51 17:51 RBC 4.05 L (4.30-5.90) m/uL Hgb 12.6 L (13.0-17.5) gm/dL Hct 38.9 L (39.0-53.0) % Lymphocytes # 0.5 L (1.0-4.8) k/uL APTT 21.1 L (22.0-30.0) sec Chloride 96 L (98-107) mmol/L Carbon Dioxide 41 H* (22-30) mmol/L BUN 44 H (9-20) mg/dL Creatinine 1.58 H (0.66-1.25) mg/dL Glucose 123 H (74-99) mg/dL Total Protein 6.2 L (6.3-8.2) g/dL Thrombosis Risk Factor Assmnt - Choose All That Apply Any of the Below Risk Factors Present?: Yes Each Factor Represents 1 point: Abnormal pulmonary function (COPD) Other Risk Factors: Yes Each Risk Factor Represents 3 Points: Age 75 years or older Thrombosis Risk Factor Assessment Total Risk Factor Score: 4 Thrombosis Risk Factor Assessment Level: Moderate Risk
[2022-08-20] MEDS ORDERED: IPRATROPIUM-ALBUTEROL 3 ML NEB INHALATION SCH
[2022-08-20] MEDS ORDERED: methylPREDNISolone SOD SUCCI 40 MG/ML 1 ML VIAL IV SCH
[2022-08-20 01:05] LABS: ABG Base Excess 15.8 mmol/L; ABG Oxygen Saturation 96.1 % (94-97); ABG PCO2 64 mmHg (35-45); ABG PH 7.41 (7.35-7.45); ABG PO2 79 mmHg (83-108); ABG TCO2 43 mmol/L (19-24); Allen Test Performed? Yes
[2022-08-20 01:10] LABS: ABG HCO3 41 mmol/L (21-25)
[2022-08-20] MEDS ORDERED: SYMBICORT 160-4.5 MCG INHALER INHALATION SCH (08:00)
[2022-08-20] MEDS ORDERED: NON FORMULARY DRUG (Roflumilast [Daliresp] 500 MCG Tablet) PO SCH (09:00)
[2022-08-20] MEDS ORDERED: AMIODARONE 200 MG TAB PO SCH (09:00)
[2022-08-20] MEDS ORDERED: DIGOXIN 125 MCG TAB PO SCH (09:00)
[2022-08-20] MEDS ORDERED: POTASSIUM CHLORIDE ER 20 MEQ TAB.ER PO SCH (09:00)
[2022-08-20] MEDS ORDERED: NON FORMULARY DRUG (Rosuvastatin 20 MG Tablet) PO SCH (09:00)
[2022-08-20] MEDS ORDERED: ESCITALOPRAM 10 MG TAB PO SCH (09:00)
[2022-08-20] MEDS ORDERED: FAMOTIDINE 20 MG TAB PO SCH (09:00)
[2022-08-20] MEDS ORDERED: predniSONE 20 MG TAB PO SCH (09:00)
[2022-08-20] MEDS: DOXYCYCLINE 100 MG CAP PO SCH (09:13)
[2022-08-20] MEDS: APIXABAN 5 MG TAB PO SCH (09:13)
[2022-08-20] MEDS: GABAPENTIN 100 MG CAP PO SCH (09:14)
[2022-08-20] MEDS: IPRATROPIUM BROMIDE 0.06% NASAL SPRAY (15 ML) EA NOSTRIL SCH (09:15)
[2022-08-20] MEDS: IPRATROPIUM-ALBUTEROL 3 ML NEB INHALATION SCH ×2 (09:37→12:30)
[2022-08-20 11:24] LABS: Basophils # (A) 0 X 10*3/uL (0.00-0.10); Basophils % (A) 0 %; Eosinophils # (A) 0 X 10*3/uL (0.04-0.35); Eosinophils % (A) 0 %; HCT 41.7 % (39.6-50.0); HGB 12.8 g/dL (13.0-17.0); Immature Grans, Automated 0.5 %; Lymphocytes # (A) 0.44 X 10*3/uL (0.90-5.00); Lymphocytes % (A) 4.6 %; MCH 29.6 pg (27.0-32.0); MCHC 30.7 g/dL (32.0-37.0); MCV 96.3 fL (80.0-97.0); Mean Platelet Volume 9.9 fL (9.5-12.2); Monocytes # (A) 0.15 X 10*3/uL (0.20-1.00); Monocytes % (A) 1.6 %; NRBC Per 100 WBC 0 /100 WBCS (0.0-0.0); Neutrophils # (A) 8.86 X 10*3/uL (1.80-7.70); Neutrophils % (A) 93.3 %; Platelet Count 182 X 10*3/uL (140-440); RBC 4.33 X 10*6/uL (4.40-5.60)
[2022-08-20 11:25] LABS: African American GFR (CKD) 56.7 (60.0-200.0); Anion Gap 8.6 mmol/L (10.00-18.00); BUN/Creat Ratio 25.68 Ratio (12.00-20.00); Blood Urea Nitrogen 35.7 mg/dL (9.0-27.0); Non-African American GFR(CKD) 48.9 (60.0-200.0); Potassium 4.5 mmol/L (3.5-5.5)
--- NOTE | 2022-08-20 11:37 | P.CNPUL ---
History of Present Illness Consult date: 08/20/22 Requesting physician: Anjana Kumar Reason for consult: dyspnea, COPD Chief complaint: Hypoxemia History of present illness: This is a very pleasant 76-year-old male with known history of atrial fib rillation, hyperlipidemia, hypertension, hearing disorder, kidney cancer with previous right nephrectomy, macular degeneration, melanoma resected from his back, chronic and ongoing tobacco dependence, daily alcohol use. He also has severe COPD/emphysema, FEV1 is in the range of 20% of the predicted with chronic hypoxic respiratory failure, maintained on 4 L nasal cannula at home, normally sees Dr. Ware for his underlying COPD. Patient also has AVAPS machine at home, and he is compliant with it. He was just discharged home from here following his COPD exacerbation on 08/16/2022. Yesterday he was at the [facility] and his O2 saturations stayed at 85% while there and he is referred back here for further evaluation. He is seen in consultation on the regular medical floor. Currently sitting up at the bedside. Awake and alert in no acute distress. States his shortness of breath is about the same. Minimal dyspnea on exertion. No worse than his usual. He does state he may have overdid it the last couple of days being outside and blowing leaves though he does use his oxygen as far as it can reach. Chest x-ray reveals evidence of COPD, question mild pulmonary interstitial edema. White count 9.5. Hemoglobin 12.8. Platelets 182. Sodium 142. TSH 4.5. Bicarb 40. BUN 36. Creatinine 1.4. Arterial blood gases on 36% FiO2 revealed a PaO2 of 79, P CO2 of 64 and a pH of 7.41. Consistent with his chronic lung disease. He's been initiated on DuoNeb inhalations, Symbicort, IV Solu-Medrol. He is feeling better today and back to his baseline. He is anxious to go home. Review of Systems REVIEW OF SYSTEMS: CONSTITUTIONAL: Denies any recent significant weight loss or weight gain. EYES: Denies change in vision. EARS, NOSE, MOUTH, THROAT: Denies headaches, denies sore throat. CARDIOVASCULAR: Denies chest pain, palpitations or syncopal episodes. RESPIRATORY: Positive for shortness of breath, no cough, congestion or hemoptysis. GASTROINTESTINAL: Denies change in appetite, denies abdominal pain GENITOURINARY: Denies hematuria, denies infections. MUSKULOSKELETAL: Denies pain, denies swelling. INTEGUMENTARY: Denies rash, denies eczema. NEUROLOGICAL: Denies recent memory loss, no recent seizure activity. PSYCHIATRIC: Denies anxiety, denies depression. HEMATOLOGIC/LYMPHATIC: Denies anemia, denies enlarged lymph nodes. Past Medical History Past Medical History: Atrial Fibrillation, Cancer, COPD, Eye Disorder, Hearing Disorder / Deafness, Hyperlipidemia, Hypertension, Osteoarthritis (OA) Additional Past Medical History / Comment(s): Emphysema (takes inhalers and uses oxygen at home). Hx Kidney Cancer in 2006, R nephrectomy.q Left eye detached retina. Wet Macular Degeneration right eye. Hx Melanoma on back. Bilateral hearing aid use, legally blind. History of Any Multi-Drug Resistant Organisms: None Reported Past Surgical History: Back Surgery Additional Past Surgical History / Comment(s): Right kidney removed. Left eye surgery X3 for detacted retina. Bilateral cataract surgery. Mohs surgery thoracic spine for melanoma. Past Anesthesia/Blood Transfusion Reactions: Previous Problems w/ Anesthesia Additional Past Anesthesia/Blood Transfusion Reaction / Comment(s): States low heart rate, light-headed and low BP X1 with anesthesia. "Got broke vocal cord and could not talk for 2 months after anesthesia one time." Past Psychological History: No Psychological Hx Reported Smoking Status: Current every day smoker Past Alcohol Use History: Daily Additional Past Alcohol Use History / Comment(s): States that he drinks Past Drug Use History: None Reported - Past Family History Mother Family Medical History: Cancer Additional Family Medical History / Comment(s): Brain Cancer. Father Family Medical History: CVA/TIA Medications and Allergies Home Medications Medication Instructions Recorded Confirmed Type Vit C/E/Zn/Coppr/Lutein/Zeaxan 1 cap PO BID 08/03/17 08/19/22 History [Preservision Areds 2 Softgel] Escitalopram [Lexapro] 10 mg PO DAILY 11/25/20 08/19/22 History Apixaban [Eliquis] 5 mg PO BID 30 Days #60 tab 11/26/20 08/19/22 Rx Amiodarone [Cordarone] 200 mg PO DAILY 12/02/20 08/19/22 History Albuterol Nebulized [Ventolin 2.5 mg INHALATION RT-Q4H 01/17/21 08/19/22 History Nebulized] Roflumilast [Daliresp] 500 mcg PO DAILY 01/17/21 08/19/22 History Potassium Chloride ER [K-Dur 20] 20 meq PO DAILY #30 tab 01/26/21 08/19/22 Rx Digoxin [Lanoxin] 125 mcg PO DAILY 11/15/21 08/19/22 History Famotidine [Pepcid] 20 mg PO DAILY 11/15/21 08/19/22 History Rosuvastatin [Crestor] 10 mg PO DAILY 11/15/21 08/19/22 History Ferrous Sulfate [Iron (65 MG 325 mg PO DAILY 05/31/22 08/19/22 History Elemental)] Ipratropium [place] 0.06%Nasal 1 spr EA NOSTRIL BID 05/31/22 08/19/22 History [Atrovent Nasal 0.06%] Bumetanide [BUMEX] 1 mg PO BID 30 Days #60 tablet 06/02/22 08/19/22 Rx Melatonin 5 mg PO HS 30 Days #30 tablet 06/02/22 08/19/22 Rx diphenhydrAMINE [Benadryl] 50 mg PO HS PRN 30 Days #30 capsule 06/02/22 08/19/22 Rx Doxycycline [Vibramycin] 100 mg PO BID #7 cap 08/16/22 08/19/22 Rx Gabapentin [Neurontin] 200 mg PO BID #120 cap 08/16/22 08/19/22 Rx predniSONE 5 mg PO DIRECTED 08/19/22 08/19/22 History predniSONE [Deltasone] See Taper PO DIRECTED 08/19/22 08/19/22 History Allergies Allergy/AdvReac Type Severity Reaction Status Date / Time atorvastatin [From Lipitor] AdvReac Muscle pain Verified 08/19/22 18:52 Physical Exam Vitals: Vital Signs Temp Pulse Pulse Resp BP BP Pulse Ox 08/20/22 09:56 70 08/20/22 09:39 68 92 L 08/20/22 07:36 97.4 F L 66 18 148/70 93 L 08/20/22 01:40 97.6 F 64 18 153/64 98 08/19/22 21:15 97.6 F 72 18 147/76 93 L 08/19/22 20:23 71 20 126/69 93 L 08/19/22 17:41 80 20 08/19/22 17:31 78 20 08/19/22 17:30 78 20 08/19/22 17:20 77 18 08/19/22 16:57 22 08/19/22 16:55 98.6 F 87 24 142/66 87 L Intake and Output 08/19/22 08/20/22 08/20/22 22:59 06:59 14:59 Intake Total 400 Output Total 500 Balance 400 -500 Intake: Oral 400 Output: Urine 500 Other: Weight 112.491 kg GENERAL EXAM: Alert, active, very pleasant 76-year-old male, on 4 L nasal cannula, comfortable in no apparent distress. HEAD: Normocephalic. EYES: Normal reaction of pupils, equal size. NOSE: Clear with pink turbinates. THROAT: No erythema or exudates. NECK: No masses, no JVD. CHEST: No chest wall deformity. LUNGS: Equal air entry with no crackles, wheeze, rhonchi or dullness. Diminished throughout CVS: S1 and S2 normal with no audible murmur, regular rhythm. ABDOMEN: No hepatosplenomegaly, normal bowel sounds, no guarding or rigidity. SPINE: No scoliosis or deformity SKIN: No rashes CENTRAL NERVOUS SYSTEM: No focal deficits, tone is normal in all 4 extremities. EXTREMITIES: There is no peripheral edema. No clubbing, no cyanosis. Peripheral pulses are intact. Results - Laboratory Findings CBC and BMP: 08/20/22 07:41 08/20/22 07:41 ABG ABG pH 7.41 (7.35-7.45) 08/20/22 00:48 ABG pCO2 64 mmHg (35-45) H 08/20/22 00:48 ABG pO2 79 mmHg (83-108) L 08/20/22 00:48 ABG O2 Saturation 96.1 % (94-97) 08/20/22 00:48 PT/INR, D-dimer PT 10.2 sec (9.0-12.0) 08/19/22 17:51 INR 1.0 (<1.2) 08/19/22 17:51 Abnormal lab findings: Abnormal Labs 08/19/22 08/19/22 08/19/22 17:51 17:51 17:51 RBC 4.05 L Hgb 12.6 L Hct 38.9 L MCHC Immature Gran # Neutrophils # Lymphocytes # 0.5 L Monocytes # Eosinophils # APTT 21.1 L ABG pCO2 ABG pO2 ABG HCO3 ABG Total CO2 Chloride 96 L Carbon Dioxide 41 H* Anion Gap BUN 44 H Creatinine 1.58 H Est GFR (CKD-EPI)AfAm Est GFR (CKD-EPI)NonAf BUN/Creatinine Ratio Glucose 123 H Total Protein 6.2 L 08/20/22 08/20/22 08/20/22 00:48 07:41 07:41 RBC 4.33 L Hgb 12.8 L Hct MCHC 30.7 L Immature Gran # 0.05 H Neutrophils # 8.86 H Lymphocytes # 0.44 L Monocytes # 0.15 L Eosinophils # 0 L APTT ABG pCO2 64 H ABG pO2 79 L ABG HCO3 41 H* ABG Total CO2 43 H Chloride 93 L Carbon Dioxide 40.0 H Anion Gap 8.60 L BUN 35.7 H Creatinine Est GFR (CKD-EPI)AfAm 56.7 L Est GFR (CKD-EPI)NonAf 48.9 L BUN/Creatinine Ratio 25.68 H Glucose 134 H Total Protein - Diagnostic Findings Chest x-ray: image reviewed Assessment and Plan Assessment: Acute exacerbation of COPD, patient has baseline Gold stage IV COPD, FEV1 in the range of 20% of the predicted value. AVAPS at home. Chronic hypoxic and hypercapnic respiratory failure [id number] smoking history quit in 2020. Chronic atrial fibrillation, anticoagulated with eliquis. Benign essential hypertension History of obstructive sleep apnea syndrome Secondary pulmonary hypertension Degenerative joint disease History of kidney cancer in 2006 and previous right nephrectomy History of back melanoma requiring surgery History of detached retina Plan: The patient was seen and evaluated Chest x-ray, labs and medications reviewed Could be transitioned to oral prednisone taper Continue his home oxygen at home pulmonary medications Cleared for discharge from the pulmonary standpoint Keep his appointment with Dr. Ware as scheduled Encouraged to call sooner with any recurrence of symptoms or other questions or concerns I have personally seen and examined the patient, performed the documentation and the assessment and plan as written. Number of minutes spent on the visit: 20.
[2022-08-20 11:57] VITALS: BP 135/65; RESP 16; TEMP 98.2
[2022-08-20] MEDS ORDERED: FERROUS SULFATE 325 MG TAB PO SCH (12:00)
[2022-08-20 12:36] VITALS: PULSE 68
--- NOTE | 2022-08-20 13:20 | P.DS ---
Providers Date of admission: 08/19/22 20:07 Expected date of discharge: 08/20/22 Attending physician: Anjana Kumar MD Consults: 08/19/22 20:04 Consult Physician Urgent Consulting Provider: Chris Ware Consult Reason/Comments: aecopd Do you want consulting provider notified?: Yes Primary care physician: [facility] Course: The patient is a 76-year-old male with a PMH of severe COPD, chronic hypoxic respiratory failure on 4 L nasal cannula oxygen continuously at home, paroxysmal A. fib on Eliquis, hypertension, hyperlipidemia, chronic kidney disease, and systolic CHF who presents to the emergency room with complaints of shortness of breath. Of note, the patient was recently admitted to the hospital for hypoxic and hypercapnic respiratory failure and was discharged on 08/16. The patient states that although he had initial improvement, he continued to gradually feel worse. The patient went to see his PCP earlier today where he was noted to be hypoxic with SpO2 in the 70s with ambulation while on 4 L nasal cannula oxygen. In the emergency room, the patient underwent an extensive evaluation. Chest x- ray revealed no overt acute abnormalities aside from by basilar mild silhouetting of the pulmonary vasculature. EKG revealed sinus rhythm with a right bundle branch block at 81 bpm with diffuse T-wave flattening as reviewed by me. Upon presentation the patient was noted to be 87% SpO2 on nasal cannula 5 L oxygen. BP was 142/66, pulse 87, temp 98.6F, and respiratory rate 24. Laboratory evaluation was remarkable for hemoglobin 12.6, WBC count 8.0, CO2 41, BUN 44, creatinine 1.58 (1.38 on discharge), proBNP 275, troponin less than 0.012 with influenza, RSV, and Covid testing negative. Patient was started on bronchodilators scheduled and as needed along with Solu- Medrol. Pulmonology was consulted and recommended prednisone taper on discharge. Pulmonology clear the patient for discharge. Patient was seen and examined this afternoon. He reports breathing back to baseline. States that he is comfortable going home. Pertinent studies include chest x-ray. Vital signs reviewed General: non toxic, no distress, appears at stated age, obese Derm: no unusual rashes/lesions, warm Head: atraumatic, normocephalic, symmetric Eyes: EOMI, no lid lag, anicteric sclera ENT: Nose and ears atraumatic Neck: No cervical lymphadenopathy, trachea midline, supple Mouth: no lip lesion, mucus membranes moist Cardiovascular: Good distal perfusion in all 4 extremities Lungs: Poor air entry bilaterally with no wheezing, no rales or rhonchi appreciated, no accessory muscle use Ext: muscle strength 5 out of 5 in all 4 extremities grossly, no gross muscle atrophy, no contractures, Neuro: no gross focal neuro deficits Psych: Alert, oriented, appropriate affect Discharge diagnosis: Acute on chronic hypoxic respiratory failure secondary to acute COPD exacerbation OBDULIO on chronic kidney disease Chronic conditions: A. fib, hypertension, hyperlipidemia, systolic CHF This complex discharge took 35 minutes to complete. Patient Condition at Discharge: Stable Plan - Discharge Summary Discharge Rx Participant: No New Discharge Prescriptions: New predniSONE See Taper PO DIRECTED #30 tab Budesonide-Formot 160-4.5 Mcg [Symbicort 160-4.5 Mcg Inhaler] 2 puff INHALATION RT-BID #1 each Continue Vit C/E/Zn/Coppr/Lutein/Zeaxan [Preservision Areds 2 Softgel] 1 cap PO BID Escitalopram [Lexapro] 10 mg PO DAILY Apixaban [Eliquis] 5 mg PO BID 30 Days #60 tab Famotidine [Pepcid] 20 mg PO DAILY Bumetanide [BUMEX] 1 mg PO BID 30 Days #60 tablet Melatonin 5 mg PO HS 30 Days #30 tablet Gabapentin [Neurontin] 200 mg PO BID #120 cap Amiodarone [Cordarone] 200 mg PO DAILY Roflumilast [Daliresp] 500 mcg PO DAILY Albuterol Nebulized [Ventolin Nebulized] 2.5 mg INHALATION RT-Q4H Potassium Chloride ER [K-Dur 20] 20 meq PO DAILY #30 tab Rosuvastatin [Crestor] 10 mg PO DAILY Digoxin [Lanoxin] 125 mcg PO DAILY Ipratropium [place] 0.06%Nasal [Atrovent Nasal 0.06%] 1 spr EA NOSTRIL BID Ferrous Sulfate [Iron (65 MG Elemental)] 325 mg PO DAILY diphenhydrAMINE [Benadryl] 50 mg PO HS PRN 30 Days #30 capsule PRN Reason: Insomnia Doxycycline [Vibramycin] 100 mg PO BID #7 cap Discontinued predniSONE 5 mg PO DIRECTED predniSONE [Deltasone] See Taper PO DIRECTED Discharge Medication List Vit C/E/Zn/Coppr/Lutein/Zeaxan [Preservision Areds 2 Softgel] 1 cap PO BID 08/03/17 [History] Escitalopram [Lexapro] 10 mg PO DAILY 11/25/20 [History] Apixaban [Eliquis] 5 mg PO BID 30 Days #60 tab 11/26/20 [Rx] Amiodarone [Cordarone] 200 mg PO DAILY 12/02/20 [History] Albuterol Nebulized [Ventolin Nebulized] 2.5 mg INHALATION RT-Q4H 01/17/21 [History] Roflumilast [Daliresp] 500 mcg PO DAILY 01/17/21 [History] Potassium Chloride ER [K-Dur 20] 20 meq PO DAILY #30 tab 01/26/21 [Rx] Digoxin [Lanoxin] 125 mcg PO DAILY 11/15/21 [History] Famotidine [Pepcid] 20 mg PO DAILY 11/15/21 [History] Rosuvastatin [Crestor] 10 mg PO DAILY 11/15/21 [History] Ferrous Sulfate [Iron (65 MG Elemental)] 325 mg PO DAILY 05/31/22 [History] Ipratropium [place] 0.06%Nasal [Atrovent Nasal 0.06%] 1 spr EA NOSTRIL BID 05/31/22 [History] Bumetanide [BUMEX] 1 mg PO BID 30 Days #60 tablet 06/02/22 [Rx] Melatonin 5 mg PO HS 30 Days #30 tablet 06/02/22 [Rx] diphenhydrAMINE [Benadryl] 50 mg PO HS PRN 30 Days #30 capsule 06/02/22 [Rx] Doxycycline [Vibramycin] 100 mg PO BID #7 cap 08/16/22 [Rx] Gabapentin [Neurontin] 200 mg PO BID #120 cap 08/16/22 [Rx] Budesonide-Formot 160-4.5 Mcg [Symbicort 160-4.5 Mcg Inhaler] 2 puff INHALATION RT-BID #1 each 08/20/22 [Rx] predniSONE See Taper PO DIRECTED #30 tab 08/20/22 [Rx] Follow up Appointment(s)/Referral(s): Chris Ware DO [Doctor of Osteopathic Medicine] - 1 Week [facility] [Primary Care Provider] - 1-2 days Discharge Disposition: HOME SELF-CARE
== END 2022-08-20 14:30 | disposition home or self-care (01) | DRG 190 ==
LOC: EC 16:53 → 5NMEDONC 20:07
PROVIDERS: ADMIT Internal Medicine; ATTEND Internal Medicine
DX: J43.9 Emphysema, unspecified (principal); J96.21 Acute and chronic respiratory failure with hypoxia; J96.22 Acute and chronic respiratory failure with hypercapnia; N17.9 Acute kidney failure, unspecified; I13.0 Hypertensive heart and chronic kidney disease with heart failure and stage 1 through stage 4 chronic kidney disease, or unspecified chronic kidney disease; I48.20 Chronic atrial fibrillation, unspecified; I50.22 Chronic systolic (congestive) heart failure; H33.22 Serous retinal detachment, left eye; I27.29 Other secondary pulmonary hypertension; Z99.81 Dependence on supplemental oxygen; N18.9 Chronic kidney disease, unspecified; I45.10 Unspecified right bundle-branch block; H35.3290 Exudative age-related macular degeneration, unspecified eye, stage unspecified; H54.8 Legal blindness, as defined in USA; H91.93 Unspecified hearing loss, bilateral; E78.5 Hyperlipidemia, unspecified; G47.33 Obstructive sleep apnea (adult) (pediatric); M19.90 Unspecified osteoarthritis, unspecified site; F10.90 Alcohol use, unspecified, uncomplicated; Z20.822 Contact with and (suspected) exposure to COVID-19; Z85.528 Personal history of other malignant neoplasm of kidney; Z90.5 Acquired absence of kidney; Z97.4 Presence of external hearing-aid; Z85.820 Personal history of malignant melanoma of skin; Z88.8 Allergy status to other drugs, medicaments and biological substances; Z79.891 Long term (current) use of opiate analgesic; Z87.891 Personal history of nicotine dependence; Z79.899 Other long term (current) drug therapy; Z79.01 Long term (current) use of anticoagulants; Z80.8 Family history of malignant neoplasm of other organs or systems
CPT/HCPCS: 36415; 36600; 71045; 80048; 80053; 82805; 83605; 83880; 84484; 85025; 85610; 85730; 87636; 93005; 94640; 94760; 96374; 96375; 99285

== ENCOUNTER 2022-12-25 19:44 | Observation (INO) | payer OTHER, MEDICARE ==
[2022-12-25 20:53] LABS: HGB 11.5 gm/dL (13.0-17.5); MCH 31.5 pg (25.0-35.0); MCHC 32.9 g/dL (31.0-37.0); MCV 95.9 fL (80.0-100.0); Mean Platelet Volume 7.5; Platelet Count 154 k/uL (150-450); RBC 3.65 m/uL (4.30-5.90); RDW 13.1 % (11.5-15.5); WBC 5.2 k/uL (3.8-10.6)
[2022-12-25 21:01] LABS: ALT 19 U/L (4-49); AST 25 U/L (17-59); African American GFR (CKD) 71 (>60 ml/min/1.73 sqM); Albumin 3.5 g/dL (3.5-5.0); Alkaline Phosphatase 81 U/L (38-126); Anion Gap 7 mmol/L; Blood Urea Nitrogen 25 mg/dL (9-20); Calcium 8.1 mg/dL (8.4-10.2); Carbon Dioxide 39 mmol/L (22-30); Chloride 85 mmol/L (98-107); Creatine Kinase 67 U/L (55-170); Glucose 84 mg/dL (74-99); Magnesium 1.9 mg/dL (1.6-2.3); Non-African American GFR(CKD) 61 (>60 ml/min/1.73 sqM); Potassium 4.1 mmol/L (3.5-5.1); Sodium 131 mmol/L (137-145); Total Bilirubin 0.5 mg/dL (0.2-1.3); Total Protein 6.4 g/dL (6.3-8.2)
--- NOTE | 2022-12-25 21:10 | XR ---
EXAMINATION TYPE: XR chest 2V DATE OF EXAM: 12/25/2022 9:02 PM COMPARISON: Chest radiographs from 08/19/2022 TECHNIQUE: XR chest 2V Frontal and lateral views of the chest. CLINICAL INDICATION:Male, 77 years old with history of Weakness; FINDINGS: Lungs/Pleura: Prominent interstitial lung markings are seen scattered throughout the lungs with gene ening of the diaphragm and increased lucency of the lung apices. No evidence of focal consolidation, pneumothorax or pleural effusion. Pulmonary vascularity: Unremarkable. Heart/mediastinum: Cardiomediastinal silhouette is unremarkable. Musculoskeletal: No acute osseous pathology. Other findings: None IMPRESSION: 1. No acute cardiopulmonary disease process. 2. COPD changes.
[2022-12-25 21:19] LABS: INR 0.9 (<1.2); Partial Thromboplastin Time 22.7 sec (22.0-30.0); Prothrombin Time 9.8 sec (9.0-12.0)
[2022-12-25 22:34] LABS: Lymphocytes # (M) 0.94 k/uL (1.0-4.8); Monocytes # (M) 0.31 k/uL (0-1.0); Neutrophils # (M) 3.85 k/uL (1.3-7.7); Neutrophils % (M) 74 %; Nucleated Red Blood Cells 0 /100 WBC (0-0); Total Cells Counted 100
--- NOTE | 2022-12-25 22:44 | ED ---
General Adult HPI - General Chief complaint: Weakness Stated complaint: Weakness Time Seen by Provider: 12/25/22 19:51 Source: patient, EMS Mode of arrival: EMS Limitations: no limitations - History of Present Illness Initial comments: Abhilash is a 77-year-old male who presents to the ER today for evaluation of generalized weakness. Patient reports he's been progressively more weak over the past couple of weeks, today he had a trip and fall while walking with his walker he fell forward landing on his knees. He did not follow-up with the ground he didn't have any injuries but he was too weak to get back up. The patient states that he is just too weak to walk. He does admit to daily drinking and having a couple of beers today. He denies fevers chills cough congestion, chest pain, palpitations, nausea vomiting diarrhea. - Related Data Home Medications Medication Instructions Recorded Confirmed Vit C/E/Zn/Coppr/Lutein/Zeaxan 1 cap PO BID 08/03/17 12/25/22 [Preservision Areds 2 Softgel] Escitalopram [Lexapro] 10 mg PO DAILY 11/25/20 12/25/22 Amiodarone [Cordarone] 200 mg PO DAILY 12/02/20 12/25/22 Albuterol Nebulized [Ventolin 2.5 mg INHALATION RT-Q4H 01/17/21 12/25/22 Nebulized] Roflumilast [Daliresp] 500 mcg PO DAILY 01/17/21 12/25/22 Digoxin [Lanoxin] 125 mcg PO DAILY 11/15/21 12/25/22 Famotidine [Pepcid] 20 mg PO DAILY 11/15/21 12/25/22 Rosuvastatin [Crestor] 10 mg PO DAILY 11/15/21 12/25/22 Ferrous Sulfate [Iron (65 MG 325 mg PO DAILY 05/31/22 12/25/22 Elemental)] Ipratropium [place] 0.06%Nasal 1 spr EA NOSTRIL BID 05/31/22 12/25/22 [Atrovent Nasal 0.06%] Previous Rx's Medication Instructions Recorded Apixaban [Eliquis] 5 mg PO BID 30 Days #60 tab 11/26/20 Potassium Chloride ER [K-Dur 20] 20 meq PO DAILY #30 tab 01/26/21 Bumetanide [BUMEX] 1 mg PO BID 30 Days #60 tablet 06/02/22 Melatonin 5 mg PO HS 30 Days #30 tablet 06/02/22 diphenhydrAMINE [Benadryl] 50 mg PO HS PRN 30 Days #30 capsule 06/02/22 Gabapentin [Neurontin] 200 mg PO BID #120 cap 08/16/22 Budesonide-Formot 160-4.5 Mcg 2 puff INHALATION RT-BID #1 each 08/20/22 [Symbicort 160-4.5 Mcg Inhaler] Allergies Allergy/AdvReac Type Severity Reaction Status Date / Time atorvastatin [From Lipitor] AdvReac Muscle pain Verified 12/25/22 21:12 Review of Systems ROS Statement: Those systems with pertinent positive or pertinent negative responses have been documented in the HPI. ROS Other: All systems not noted in ROS Statement are negative. Past Medical History Past Medical History: Atrial Fibrillation, Cancer, COPD, Eye Disorder, Hearing Disorder / Deafness, Hyperlipidemia, Hypertension, Osteoarthritis (OA) Additional Past Medical History / Comment(s): Emphysema (takes inhalers and uses oxygen at home). Hx Kidney Cancer in 2006, R nephrectomy.q Left eye detached retina. Wet Macular Degeneration right eye. Hx Melanoma on back. Bilateral hearing aid use, legally blind. History of Any Multi-Drug Resistant Organisms: None Reported Past Surgical History: Back Surgery Additional Past Surgical History / Comment(s): Right kidney removed. Left eye surgery X3 for detacted retina. Bilateral cataract surgery. Mohs surgery thoracic spine for melanoma. Past Anesthesia/Blood Transfusion Reactions: Previous Problems w/ Anesthesia Additional Past Anesthesia/Blood Transfusion Reaction / Comment(s): States low heart rate, light-headed and low BP X1 with anesthesia. "Got broke vocal cord and could not talk for 2 months after anesthesia one time." Past Psychological History: No Psychological Hx Reported Smoking Status: Current every day smoker Past Alcohol Use History: Daily Past Drug Use History: None Reported - Past Family History Mother Family Medical History: Cancer Additional Family Medical History / Comment(s): Brain Cancer. Father Family Medical History: CVA/TIA General Exam - General Exam Comments Initial Comments: Physical Exam GENERAL: Chronically ill-appearing gentleman in no acute distress HENT: Normocephalic, Atraumatic. Eyes: No redness or discharge PULMONARY: Unlabored respirations. CARDIOVASCULAR: RRR Warm and well perfused extremities ABDOMEN: Non-distended SKIN: No rashes : Deferred NEUROLOGIC: Alert and oriented MUSCULOSKELETAL: Moving all extremities with no apparent injury PSYCHIATRIC: No SI/HI Limitations: no limitations Course Vital Signs 12/25/22 12/25/22 19:46 21:00 Temperature 97.5 F L Pulse Rate 79 77 Respiratory 20 20 Rate Blood Pressure 107/64 143/70 O2 Sat by Pulse 98 98 Oximetry EKG Findings - EKG Comments: EKG Findings:: EKG interpreted by me EKG obtained due to generalized weakness EKG obtained at 2041 rate is 74 rhythm is sinus with a right bundle, NJ 160 QRS 160 QTC [address] elevations or depressions or evidence of acute ischemia or infarction. Medical Decision Making - Medical Decision Making Was pt. sent in by a medical professional or institution (, PA, CASH REGISTER BALANCER, urgent care, hospital, or longterm...) When possible be specific @ -No Did you speak to anyone other than the patient for history (EMS, parent, family, police, friend...)? What history was obtained from this source @ -No Did you review nursing and triage notes (agree or disagree)? Why? @ -I reviewed and agree with nursing and triage notes Were old charts reviewed (outside hosp., previous admission, EMS record, old EKG, old radiological studies, urgent care reports/EKG's, longterm records)? Report findings @ medical records were reviewed Differential Diagnosis (chest pain, altered mental status, abdominal pain women, abdominal pain men, vaginal bleeding, weakness, fever, dyspnea, syncope, headache, dizziness, GI bleed, back pain, seizure, CVA, palpatations, mental health, musculoskeletal)? @ -Differential Weakness: Hypoglycemia, shock, sepsis, hyponatremia, anemia, infection, OK, ETOH, adverse medicine reaction, overdose, stroke, this is not meant to be an all-inclusive list. EKG interpreted by me (3pts min.). @ -As above X-rays interpreted by me (1pt min.). @ -None done CT interpreted by me (1pt min.). @ -None done U/S interpreted by me (1pt. min.). @ -None done What testing was considered but not performed or refused? (CT, X-rays, U/S, labs)? Why? @ -None What meds were considered but not given or refused? Why? @ -None Did you discuss the management of the patient with other professionals (professionals i.e. , PA, CASH REGISTER BALANCER, lab, RT, psych nurse, nephrology social worker, photographic equipment mechanic, teacher, corporate trust officer, caser in)? Give summary @ -No Was smoking cessation discussed for >3mins.? @ -No Was critical care preformed (if so, how long)? @ -No Were there social determinants of health that impacted care today? How? (Homelessness, low income, unemployed, alcoholism, drug addiction, transportation, low edu. Level, literacy, decrease access to med. care, group home, rehab)? @ -No Was there de-escalation of care discussed even if they declined (Discuss DNR or withdrawal of care, Hospice)? DNR status @ -No What co-morbidities impacted this encounter? (DM, HTN, Smoking, COPD, CAD, Cancer, CVA, ARF, Chemo, Hep., AIDS, mental health diagnosis, sleep apnea, morbid obesity)? @ -COPD, hypertension, cancer Was patient admitted / discharged? Hospital course, mention meds given and route, prescriptions, significant lab abnormalities, going to OR and other pertinent info. @ -Admit The patient was seen and evaluated this elderly gentleman with multiple comorbidities with progressively worsening weakness. Labs are consistent with some dehydration, lactic acidosis, hypocalcemia. Given the patient's inability to ambulate independently he will need to be hospitalized for evaluation by physical therapy Undiagnosed new problem with uncertain prognosis? @ -No Drug Therapy requiring intensive monitoring for toxicity (Heparin, Nitro, Insulin, Cardizem)? @ -No Were any procedures done? @ -No Diagnosis/symptom? @ -default Acute, or Chronic, or Acute on Chronic? @ -default Uncomplicated (without systemic symptoms) or Complicated (systemic symptoms)? @ -default Side effects of treatment? @ -No Exacerbation, Progression, or Severe Exacerbation? @ -No Poses a threat to life or bodily function? How? (Chest pain, USA, OK, pneumonia, PE, COPD, DKA, ARF, appy, cholecystitis, CVA, Diverticulitis, Homicidal, Suicidal, threat to staff... and all critical care pts) @ -No - Lab Data Result diagrams: 12/25/22 20:39 12/25/22 20:39 Lab Results 12/25/22 12/25/22 12/25/22 Range/Units 20:39 20:39 20:39 WBC 5.2 (3.8-10.6) k/uL RBC 3.65 L (4.30-5.90) m/uL Hgb 11.5 L (13.0-17.5) gm/dL Hct 35.0 L (39.0-53.0) % MCV 95.9 (80.0-100.0) fL MCH 31.5 (25.0-35.0) pg MCHC 32.9 (31.0-37.0) g/dL RDW 13.1 (11.5-15.5) % Plt Count 154 (150-450) k/uL MPV 7.5 Neutrophils % (Manual) 74 % Lymphocytes % (Manual) 18 % Monocytes % (Manual) 6 % Eosinophils % (Manual) 2 % Neutrophils # (Manual) 3.85 (1.3-7.7) k/uL Lymphocytes # (Manual) 0.94 L (1.0-4.8) k/uL Monocytes # (Manual) 0.31 (0-1.0) k/uL Eosinophils # (Manual) 0.10 (0-0.7) k/uL Nucleated RBCs 0 (0-0) /100 WBC Manual Slide Review Performed PT 9.8 (9.0-12.0) sec INR 0.9 (<1.2) APTT 22.7 (22.0-30.0) sec Sodium 131 L (137-145) mmol/L Potassium 4.1 (3.5-5.1) mmol/L Chloride 85 L (98-107) mmol/L Carbon Dioxide 39 H (22-30) mmol/L Anion Gap 7 mmol/L BUN 25 H (9-20) mg/dL Creatinine 1.15 (0.66-1.25) mg/dL Est GFR (CKD-EPI)AfAm 71 (>60 ml/min/1.73 sqM) Est GFR (CKD-EPI)NonAf 61 (>60 ml/min/1.73 sqM) Glucose 84 (74-99) mg/dL Lactic Ac Sepsis Rflx Plasma Lactic Acid Fabiano (0.7-2.0) mmol/L Calcium 8.1 L (8.4-10.2) mg/dL Magnesium 1.9 (1.6-2.3) mg/dL Total Bilirubin 0.5 (0.2-1.3) mg/dL AST 25 (17-59) U/L ALT 19 (4-49) U/L Alkaline Phosphatase 81 (38-126) U/L Creatine Kinase 67 (55-170) U/L Troponin I (0.000-0.034) ng/mL Total Protein 6.4 (6.3-8.2) g/dL Albumin 3.5 (3.5-5.0) g/dL Influenza Type A (PCR) (Not Detectd) Influenza Type B (PCR) (Not Detectd) RSV (PCR) (Not Detectd) SARS-CoV-2 (PCR) (Not Detectd) 12/25/22 12/25/22 12/25/22 Range/Units 20:39 20:39 21:20 WBC (3.8-10.6) k/uL RBC (4.30-5.90) m/uL Hgb (13.0-17.5) gm/dL Hct (39.0-53.0) % MCV (80.0-100.0) fL MCH (25.0-35.0) pg MCHC (31.0-37.0) g/dL RDW (11.5-15.5) % Plt Count (150-450) k/uL MPV Neutrophils % (Manual) % Lymphocytes % (Manual) % Monocytes % (Manual) % Eosinophils % (Manual) % Neutrophils # (Manual) (1.3-7.7) k/uL Lymphocytes # (Manual) (1.0-4.8) k/uL Monocytes # (Manual) (0-1.0) k/uL Eosinophils # (Manual) (0-0.7) k/uL Nucleated RBCs (0-0) /100 WBC Manual Slide Review PT (9.0-12.0) sec INR (<1.2) APTT (22.0-30.0) sec Sodium (137-145) mmol/L Potassium (3.5-5.1) mmol/L Chloride (98-107) mmol/L Carbon Dioxide (22-30) mmol/L Anion Gap mmol/L BUN (9-20) mg/dL Creatinine (0.66-1.25) mg/dL Est GFR (CKD-EPI)AfAm (>60 ml/min/1.73 sqM) Est GFR (CKD-EPI)NonAf (>60 ml/min/1.73 sqM) Glucose (74-99) mg/dL Lactic Ac Sepsis Rflx Y Plasma Lactic Acid Fabiano 3.1 H* (0.7-2.0) mmol/L Calcium (8.4-10.2) mg/dL Magnesium (1.6-2.3) mg/dL Total Bilirubin (0.2-1.3) mg/dL AST (17-59) U/L ALT (4-49) U/L Alkaline Phosphatase (38-126) U/L Creatine Kinase (55-170) U/L Troponin I <0.012 (0.000-0.034) ng/mL Total Protein (6.3-8.2) g/dL Albumin (3.5-5.0) g/dL Influenza Type A (PCR) (Not Detectd) Influenza Type B (PCR) (Not Detectd) RSV (PCR) (Not Detectd) SARS-CoV-2 (PCR) (Not Detectd) 12/25/22 Range/Units 22:53 WBC (3.8-10.6) k/uL RBC (4.30-5.90) m/uL Hgb (13.0-17.5) gm/dL Hct (39.0-53.0) % MCV (80.0-100.0) fL MCH (25.0-35.0) pg MCHC (31.0-37.0) g/dL RDW (11.5-15.5) % Plt Count (150-450) k/uL MPV Neutrophils % (Manual) % Lymphocytes % (Manual) % Monocytes % (Manual) % Eosinophils % (Manual) % Neutrophils # (Manual) (1.3-7.7) k/uL Lymphocytes # (Manual) (1.0-4.8) k/uL Monocytes # (Manual) (0-1.0) k/uL Eosinophils # (Manual) (0-0.7) k/uL Nucleated RBCs (0-0) /100 WBC Manual Slide Review PT (9.0-12.0) sec INR (<1.2) APTT (22.0-30.0) sec Sodium (137-145) mmol/L Potassium (3.5-5.1) mmol/L Chloride (98-107) mmol/L Carbon Dioxide (22-30) mmol/L Anion Gap mmol/L BUN (9-20) mg/dL Creatinine (0.66-1.25) mg/dL Est GFR (CKD-EPI)AfAm (>60 ml/min/1.73 sqM) Est GFR (CKD-EPI)NonAf (>60 ml/min/1.73 sqM) Glucose (74-99) mg/dL Lactic Ac Sepsis Rflx Plasma Lactic Acid Fabiano (0.7-2.0) mmol/L Calcium (8.4-10.2) mg/dL Magnesium (1.6-2.3) mg/dL Total Bilirubin (0.2-1.3) mg/dL AST (17-59) U/L ALT (4-49) U/L Alkaline Phosphatase (38-126) U/L Creatine Kinase (55-170) U/L Troponin I (0.000-0.034) ng/mL Total Protein (6.3-8.2) g/dL Albumin (3.5-5.0) g/dL Influenza Type A (PCR) Not Detected (Not Detectd) Influenza Type B (PCR) Not Detected (Not Detectd) RSV (PCR) Not Detected (Not Detectd) SARS-CoV-2 (PCR) Not Detected (Not Detectd) Disposition Clinical Impression: Generalized weakness, Lactic acidosis, CO2 retention, Chronic respiratory failure with hypercapnia, Renal insufficiency Disposition: ADMITTED IP TO THIS HOSP Condition: Serious
[2022-12-26] MEDS ORDERED: NALOXONE 0.4 MG/ML 1 ML VIAL IV PRN (00:11)
[2022-12-26] MEDS: ALBUTEROL NEBULIZED 2.5 MG/3 ML INHALATION SCH ×6 (03:25→23:34)
--- NOTE | 2022-12-26 03:38 | P.HPIM ---
History of Present Illness H&P Date: 12/26/22 Chief Complaint: fall 77 year old male with afib on blood thinners, COPD on 4 L NC patient lives at home with his , he is at his baseline of his health, he normally cant do much or go far due to shortness of breath. he was at home today , when suddenly felt weak in his legs and fell to the ground, he did not hit his head, no LOC, he denies any SOB, chest pain , dizziness, palpitations, nausea or vomiting. he denies any fever, chills, URI symptoms , denies any urinary changes, or bowel habit changes, denies any abd pain. patient denies any recent illness, or hospitalization, denies any recent changes with his medications he denies any new focal neuro deficits, or saddle numbness . he reports history of low back pain, and pinched nerve, but currently denies any radiculopathy admits to tobacco smoking , and alcohol few times a week, denies any illicit dr ugs PMHx COPD on 4 L NC, hypertension, afib on blood thinners review of systems Pertinent positives as noted in HPI. All other systems were reviewed and are negative on exam Constitutional: No acute distress, conversant, pleasant Eyes: Anicteric sclerae, moist conjunctiva, Pupils equal round reactive to light ENMT: NC/AT Oropharynx clear, no erythema, or exudates Neck: Supple, no masses, or JVD No carotid bruits No thyromegaly Lungs: Clear to auscultation Clear to percussion Normal respiratory effort, no accessory muscle use Cardiovascular: Heart regular in rate and rhythm, No murmurs, gallops, or rubs No peripheral edema Abdominal: Soft Nontender, no guarding, rebound or rigidity Abdomen moving with respiration Normoactive bowel sounds No hepatomegaly, No splenomegaly No palpable mass No abdominal wall hernia noted Skin: superficial scrap over the right wrist. Extremities: No digital cyanosis No clubbing Pedal pulses intact and symmetrical Radial pulses intact and symmetrical No calf tenderness Psychiatric: Alert and oriented to person, place and time Appropriate affect fair judgement Neuro Muscles Strength 4/5 in bilateral upper extremities , 4/5 in proximal muscle group of lower extremities , 3/5 in distal muscle group of lower extremities Sensation to light touch grossly present throughout Cranial nerves II-XII grossly intact Lymphatics: no palpable cervical or supraclavicular lymph nodes Past Medical History Past Medical History: Atrial Fibrillation, Cancer, COPD, Eye Disorder, Hearing Disorder / Deafness, Hyperlipidemia, Hypertension, Osteoarthritis (OA) Additional Past Medical History / Comment(s): Emphysema (takes inhalers and uses oxygen at home). Hx Kidney Cancer in 2007, R nephrectomy.q Left eye detached retina. Wet Macular Degeneration right eye. Hx Melanoma on back. Bilateral hearing aid use, legally blind. History of Any Multi-Drug Resistant Organisms: None Reported Past Surgical History: Back Surgery Additional Past Surgical History / Comment(s): Right kidney removed. Left eye surgery X3 for detacted retina. Bilateral cataract surgery. Mohs surgery thoracic spine for melanoma. Past Anesthesia/Blood Transfusion Reactions: Previous Problems w/ Anesthesia Additional Past Anesthesia/Blood Transfusion Reaction / Comment(s): States low heart rate, light-headed and low BP X1 with anesthesia. "Got broke vocal cord and could not talk for 2 months after anesthesia one time." Past Psychological History: No Psychological Hx Reported Smoking Status: Current every day smoker Past Alcohol Use History: Daily Additional Past Alcohol Use History / Comment(s): States that he drinks Past Drug Use History: None Reported Additional Drug Use History / Comment(s): Quit smoking 12/27 - Past Family History Mother Family Medical History: Cancer Additional Family Medical History / Comment(s): Brain Cancer. Father Family Medical History: CVA/TIA Medications and Allergies Home Medications Medication Instructions Recorded Confirmed Type Vit C/E/Zn/Coppr/Lutein/Zeaxan 1 cap PO BID 08/03/17 12/25/22 History [Preservision Areds 2 Softgel] Escitalopram [Lexapro] 10 mg PO DAILY 11/25/20 12/25/22 History Apixaban [Eliquis] 5 mg PO BID 30 Days #60 tab 11/26/20 12/25/22 Rx Amiodarone [Cordarone] 200 mg PO DAILY 12/02/20 12/25/22 History Albuterol Nebulized [Ventolin 2.5 mg INHALATION RT-Q4H 01/17/21 12/25/22 History Nebulized] Roflumilast [Daliresp] 500 mcg PO DAILY 01/17/21 12/25/22 History Potassium Chloride ER [K-Dur 20] 20 meq PO DAILY #30 tab 01/26/21 12/25/22 Rx Digoxin [Lanoxin] 125 mcg PO DAILY 11/15/21 12/25/22 History Famotidine [Pepcid] 20 mg PO DAILY 11/15/21 12/25/22 History Rosuvastatin [Crestor] 10 mg PO DAILY 11/15/21 12/25/22 History Ferrous Sulfate [Iron (65 MG 325 mg PO DAILY 05/31/22 12/25/22 History Elemental)] Ipratropium [place] 0.06%Nasal 1 spr EA NOSTRIL BID 05/31/22 12/25/22 History [Atrovent Nasal 0.06%] Bumetanide [BUMEX] 1 mg PO BID 30 Days #60 tablet 06/02/22 12/25/22 Rx Melatonin 5 mg PO HS 30 Days #30 tablet 06/02/22 12/25/22 Rx diphenhydrAMINE [Benadryl] 50 mg PO HS PRN 30 Days #30 capsule 06/02/22 12/25/22 Rx Gabapentin [Neurontin] 200 mg PO BID #120 cap 08/16/22 12/25/22 Rx Budesonide-Formot 160-4.5 Mcg 2 puff INHALATION RT-BID #1 each 08/20/22 12/25/22 Rx [Symbicort 160-4.5 Mcg Inhaler] Allergies Allergy/AdvReac Type Severity Reaction Status Date / Time atorvastatin [From Lipitor] AdvReac Muscle pain Verified 12/25/22 21:12 Physical Exam Vitals: Vital Signs Temp Pulse Pulse Resp BP BP Pulse Ox 12/26/22 02:17 97.6 F 71 18 182/66 98 12/26/22 01:46 97.9 F 72 20 168/68 98 12/25/22 21:00 77 20 143/70 98 12/25/22 19:46 97.5 F L 79 20 107/64 98 Intake and Output 12/25/22 12/25/22 12/26/22 14:59 22:59 06:59 Other: Weight 113.398 kg 113.398 kg Results CBC & Chem 7: 12/25/22 20:39 12/25/22 20:39 Labs: Abnormal Lab Results - Last 24 Hours (Table) 12/25/22 12/25/22 12/25/22 Range/Units 20:39 20:39 20:39 RBC 3.65 L (4.30-5.90) m/uL Hgb 11.5 L (13.0-17.5) gm/dL Hct 35.0 L (39.0-53.0) % Lymphocytes # (Manual) 0.94 L (1.0-4.8) k/uL Sodium 131 L (137-145) mmol/L Chloride 85 L (98-107) mmol/L Carbon Dioxide 39 H (22-30) mmol/L BUN 25 H (9-20) mg/dL Plasma Lactic Acid Fabiano 3.1 H* (0.7-2.0) mmol/L Calcium 8.1 L (8.4-10.2) mg/dL Assessment and Plan Assessment: 77 year old male with afib on blood thinner, COPD on4 L NC. coming in after a fall, I discussed the case with ED doc and I accepted the admission for fall due to lower extremity weakness for PT evaluation with anticipated length of stay < 2 midnights lower extremity weakness fall denies head injury or LOC fall precautions PT evaluation gentle IVF hydration with normal saline LA 3.2 continue to trend blood work showing Hgb 11.5 WBC 5.2 renal function unremarkable Na 131, K 4.1, BUN 25 , Cr 1.25 corrcted Ca 8.5 chronic conditions afib on blood thinner and amiodarone , digoxin COPD on 4 L NC, continue with inhalers and albuterol HLD on statin full code DVT PPX on eliquis for afib
[2022-12-26] MEDS: SODIUM CHLORIDE 0.9% 1,000 ML IV SCH ×2 (06:58→18:44)
[2022-12-26] MEDS: SYMBICORT 160-4.5 MCG INHALER INHALATION SCH ×2 (07:40→20:11)
[2022-12-26] MEDS: FAMOTIDINE 20 MG TAB PO SCH (09:16)
[2022-12-26] MEDS: AMIODARONE 200 MG TAB PO SCH (09:16)
[2022-12-26] MEDS: BUMETANIDE 1 MG TAB PO SCH ×2 (09:16→20:05)
[2022-12-26] MEDS: DIGOXIN 125 MCG TAB PO SCH (09:16)
[2022-12-26] MEDS: APIXABAN 5 MG TAB PO SCH ×2 (09:16→20:05)
[2022-12-26] MEDS: ESCITALOPRAM 10 MG TAB PO SCH (09:16)
[2022-12-26] MEDS: GABAPENTIN 100 MG CAP PO SCH ×2 (09:16→20:05)
[2022-12-26 10:40] LABS: African American GFR (CKD) 68 (>60 ml/min/1.73 sqM); Blood Urea Nitrogen 25 mg/dL (9-20); Calcium 8.2 mg/dL (8.4-10.2); Chloride 86 mmol/L (98-107); Glucose 137 mg/dL (74-99); Non-African American GFR(CKD) 59 (>60 ml/min/1.73 sqM); Potassium 4.3 mmol/L (3.5-5.1); Sodium 135 mmol/L (137-145)
[2022-12-26 10:56] LABS: Anion Gap 8 mmol/L
[2022-12-26 11:12] LABS: Carbon Dioxide 41 mmol/L (22-30)
[2022-12-26] MEDS: NON FORMULARY DRUG (Rosuvastatin 20 MG Tablet) PO SCH (12:38)
[2022-12-26] MEDS: MELATONIN 5 MG TABLET PO SCH (20:05)
[2022-12-27] MEDS: ALBUTEROL NEBULIZED 2.5 MG/3 ML INHALATION SCH ×6 (05:09→23:31)
[2022-12-27] MEDS: SODIUM CHLORIDE 0.9% 1,000 ML IV SCH (05:26)
[2022-12-27 07:13] LABS: African American GFR (CKD) 76 (>60 ml/min/1.73 sqM); Blood Urea Nitrogen 20 mg/dL (9-20); Calcium 8.3 mg/dL (8.4-10.2); Glucose 100 mg/dL (74-99); Non-African American GFR(CKD) 66 (>60 ml/min/1.73 sqM)
[2022-12-27 07:31] LABS: Carbon Dioxide 44 mmol/L (22-30)
[2022-12-27 07:35] LABS: Anion Gap 0 mmol/L; Chloride 89 mmol/L (98-107); Potassium 4.1 mmol/L (3.5-5.1); Sodium 133 mmol/L (137-145)
[2022-12-27] MEDS: SYMBICORT 160-4.5 MCG INHALER INHALATION SCH ×2 (07:59→19:35)
[2022-12-27] MEDS: APIXABAN 5 MG TAB PO SCH ×2 (08:26→20:00)
[2022-12-27] MEDS: GABAPENTIN 100 MG CAP PO SCH ×2 (08:26→20:00)
[2022-12-27] MEDS: ESCITALOPRAM 10 MG TAB PO SCH (08:26)
[2022-12-27] MEDS: FAMOTIDINE 20 MG TAB PO SCH (08:26)
[2022-12-27] MEDS: AMIODARONE 200 MG TAB PO SCH (08:27)
[2022-12-27] MEDS: BUMETANIDE 1 MG TAB PO SCH ×2 (08:27→20:01)
[2022-12-27] MEDS: DIGOXIN 125 MCG TAB PO SCH (09:57)
[2022-12-27] MEDS ORDERED: HYDROcodone/APAP 7.5-325MG 1 EACH TAB PO ONE (10:17)
[2022-12-27] MEDS ORDERED: HYDROcodone/APAP 7.5-325MG 1 EACH TAB PO PRN (10:17)
[2022-12-27] MEDS: NON FORMULARY DRUG (Roflumilast [Daliresp] 500 MCG Tablet) PO SCH (12:40)
[2022-12-27] MEDS: NON FORMULARY DRUG (Rosuvastatin 20 MG Tablet) PO SCH (12:41)
--- NOTE | 2022-12-27 15:10 | P.PN ---
Subjective Progress Note Date: 12/27/22 Patient is a 77-year-old male with PMH of chronic respiratory failure and COPD on 4 L nasal cannula, hypertension, atrial fibrillation, dyslipidemia presents the ED for generalized weakness and fall. He denied any loss of consciousness. He reports pain in his bilateral thighs. In the ED, his vital signs are stable on 4 L NC. CBC showed hemoglobin of 11.5. INR was 0.9. CMP showed sodium 131, chloride of 85, bicarb of 39, BUN of 25, calcium of 8.1. Lactic acid was 3.1. Troponin was less than 0.012. Creatinine kinase 67. Influenza, RSV, COVID-19 negative. Chest x-ray showed COPD changes and no acute pathology. EKG showed sinus rhythm with right bundle branch block. Patient was admitted for PT evaluation. PT evaluated the patient on 12/27 and recommends [facility] versus home with home health depending on progression and improvement. 12/27 Patient was seen and examined. No acute events overnight. Patient reports pain in his bilateral thighs. He reports continued weakness and difficulty ambulating. He would like to go home if possible. BMP shows sodium of 133, chloride of 89, bicarb of 44, glucose 100 and calcium of 8.3. General: non toxic, no distress, appears at stated age Derm: warm, dry Head: atraumatic, normocephalic, symmetric Eyes: EOMI, no lid lag, anicteric sclera Cardiovascular: S1S2 reg, no murmur Lungs: Decreased BS bilateral, no rhonchi, no rales , no accessory muscle use Ext: no gross muscle atrophy, no edema, no contractures Neuro: no focal neuro deficits Psych: Alert, oriented, appropriate affect Generalized weakness Fall Resolved: OBDULIO, Lactic acidosis Chronic conditions: Chronic respiratory failure and COPD on 4 L nasal cannula, hypertension, atrial fibrillation, dyslipidemia Based on my assessment of this patient, this patient meets a moderate complexity level of care. Patient has a new diagnosis of generalized weakness with fall with uncertain prognosis. Generalized weakness: PT and OT consulted. Fall precautions. SNF vs home with HH depending on progression. Fall Resolved: OBDULIO, Lactic acidosis I have reviewed the following customer service and sales consultant notes: I have reviewed the results of the following tests: BMP. I have ordered the following tests: BMP. Venous blood gas. I have discussed the care of this patient with the following independent his sinan: I have independently interpreted the following test below: I have discussed the management of this patient with the following physician: Objective - Vital Signs Vital signs: Vital Signs Temp 97.6 F 12/27/22 11:05 Pulse 78 12/27/22 11:38 Resp 18 12/27/22 11:05 BP 123/76 12/27/22 11:05 Pulse Ox 97 12/27/22 11:05 FiO2 Intake & Output 12/26/22 12/27/22 12/27/22 18:59 06:59 18:59 Intake Total 1400 Output Total 2450 1400 1050 Balance -2450 0 -1050 Intake: Intake, IV Titration 900 Amount Sodium Chloride 0.9% 1, 900 000 ml @ 75 mls/hr IV . [id number] [facility] Rx#:[id number] Oral 500 Output: Urine 2450 1400 1050 Other: Voiding Method Toilet Toilet Toilet Urinal Urinal Urinal # Bowel Movements 1 - Labs CBC & Chem 7: 12/25/22 20:39 12/27/22 05:32 Labs: Abnormal Lab Results - Last 24 Hours (Table) 12/27/22 Range/Units 05:32 Sodium 133 L (137-145) mmol/L Chloride 89 L (98-107) mmol/L Carbon Dioxide 44 H* (22-30) mmol/L Glucose 100 H (74-99) mg/dL Calcium 8.3 L (8.4-10.2) mg/dL
[2022-12-27] MEDS: MELATONIN 5 MG TABLET PO SCH (20:00)
[2022-12-28] MEDS: ALBUTEROL NEBULIZED 2.5 MG/3 ML INHALATION SCH ×3 (04:35→11:22)
[2022-12-28 06:11] LABS: VBG PH 7.37 (7.31-7.41)
[2022-12-28 06:25] LABS: African American GFR (CKD) 88 (>60 ml/min/1.73 sqM); Anion Gap 5 mmol/L; Blood Urea Nitrogen 17 mg/dL (9-20); Calcium 8.1 mg/dL (8.4-10.2); Chloride 89 mmol/L (98-107); Glucose 130 mg/dL (74-99); Non-African American GFR(CKD) 77 (>60 ml/min/1.73 sqM); Potassium 3.6 mmol/L (3.5-5.1); Sodium 134 mmol/L (137-145)
[2022-12-28 06:31] LABS: Carbon Dioxide 40 mmol/L (22-30)
[2022-12-28] MEDS: SYMBICORT 160-4.5 MCG INHALER INHALATION SCH (07:28)
[2022-12-28 07:38] VITALS: BP 127/69; RESP 20; TEMP 98.8
[2022-12-28 07:40] VITALS: PULSE 78
[2022-12-28] MEDS: ESCITALOPRAM 10 MG TAB PO SCH (08:35)
[2022-12-28] MEDS: AMIODARONE 200 MG TAB PO SCH (08:35)
[2022-12-28] MEDS: BUMETANIDE 1 MG TAB PO SCH (08:35)
[2022-12-28] MEDS: DIGOXIN 125 MCG TAB PO SCH (08:35)
[2022-12-28] MEDS: APIXABAN 5 MG TAB PO SCH (08:35)
[2022-12-28] MEDS: FAMOTIDINE 20 MG TAB PO SCH (08:35)
[2022-12-28] MEDS: NON FORMULARY DRUG (Rosuvastatin 20 MG Tablet) PO SCH (08:36)
[2022-12-28] MEDS: GABAPENTIN 100 MG CAP PO SCH (08:36)
[2022-12-28] MEDS: NON FORMULARY DRUG (Roflumilast [Daliresp] 500 MCG Tablet) PO SCH (08:36)
--- NOTE | 2022-12-28 10:31 | P.DS ---
Providers Date of admission: 12/26/22 00:12 Expected date of discharge: 12/28/22 Attending physician: Sherry Dudley MD Primary care physician: [facility] Hospital Course: Discharge Diagnosis: Generalized weakness Fall Lactic acidosis Chronic hypoxic respiratory failure COPD Hypertension Atrial fibrillation Dyslipidemia Hospital Course: 77-year-old male with PMH of chronic respiratory failure and COPD on 4 L nasal cannula, hypertension, atrial fibrillation, dyslipidemia presents the ED for generalized weakness and fall. In the ED, his vital signs are stable on 4 L NC. CBC showed hemoglobin of 11.5. INR was 0.9. CMP showed sodium 131, chloride of 85, bicarb of 39, BUN of 25, calcium of 8.1. Lactic acid was 3.1. Troponin was less than 0.012. Creatinine kinase 67. Influenza, RSV, COVID-19 negative. Chest x-ray showed COPD changes and no acute pathology. EKG showed sinus rhythm with right bundle branch block. Patient was admitted for PT evaluation. Lactic acid improved. No major electrolyte derangements. Metabolic alkalosis likely in the setting of chronic respiratory acidosis. Patient able to ambulate, will be discharged home with follow-up with PCP. Patient seen and examined at bedside. Vital signs reviewed and stable. General: nontoxic, no distress, appears at stated age Derm: warm, dry Head: atraumatic, normocephalic, symmetric Eyes: EOMI, no lid lag, anicteric sclera Mouth: no lip lesion, mucus membranes moist Cardiovascular: S1S2 reg, no murmur Lungs: CTA bilateral, no rhonchi, no rales , no accessory muscle use, supplemental oxygen Abdominal: soft, nontender to palpation, no guarding, no appreciable organomegaly Ext: no gross muscle atrophy, no edema, no contractures Neuro: CN II-XI grossly intact, no focal neuro deficits Psych: Alert, oriented, appropriate affect A total of 33 minutes of time were spent preparing this complex discharge summary. Patient was discharged on 12/28/22 9:48. Patient Condition at Discharge: Stable Plan - Discharge Summary Discharge Rx Participant: No New Discharge Prescriptions: Continue Vit C/E/Zn/Coppr/Lutein/Zeaxan [Preservision Areds 2 Softgel] 1 cap PO BID Escitalopram [Lexapro] 10 mg PO DAILY Apixaban [Eliquis] 5 mg PO BID 30 Days #60 tab Famotidine [Pepcid] 20 mg PO DAILY Bumetanide [BUMEX] 1 mg PO BID 30 Days #60 tablet Melatonin 5 mg PO HS 30 Days #30 tablet Gabapentin [Neurontin] 200 mg PO BID #120 cap Budesonide-Formot 160-4.5 Mcg [Symbicort 160-4.5 Mcg Inhaler] 2 puff INHALATION RT-BID #1 each Amiodarone [Cordarone] 200 mg PO DAILY Roflumilast [Daliresp] 500 mcg PO DAILY Albuterol Nebulized [Ventolin Nebulized] 2.5 mg INHALATION RT-Q4H Potassium Chloride ER [K-Dur 20] 20 meq PO DAILY #30 tab Rosuvastatin [Crestor] 10 mg PO DAILY Digoxin [Lanoxin] 125 mcg PO DAILY Ipratropium [place] 0.06%Nasal [Atrovent Nasal 0.06%] 1 spr EA NOSTRIL BID Ferrous Sulfate [Iron (65 MG Elemental)] 325 mg PO DAILY diphenhydrAMINE [Benadryl] 50 mg PO HS PRN 30 Days #30 capsule PRN Reason: Insomnia Discharge Medication List Vit C/E/Zn/Coppr/Lutein/Zeaxan [Preservision Areds 2 Softgel] 1 cap PO BID 08/03/17 [History] Escitalopram [Lexapro] 10 mg PO DAILY 11/25/20 [History] Apixaban [Eliquis] 5 mg PO BID 30 Days #60 tab 11/26/20 [Rx] Amiodarone [Cordarone] 200 mg PO DAILY 12/02/20 [History] Albuterol Nebulized [Ventolin Nebulized] 2.5 mg INHALATION RT-Q4H 01/17/21 [History] Roflumilast [Daliresp] 500 mcg PO DAILY 01/17/21 [History] Potassium Chloride ER [K-Dur 20] 20 meq PO DAILY #30 tab 01/26/21 [Rx] Digoxin [Lanoxin] 125 mcg PO DAILY 11/15/21 [History] Famotidine [Pepcid] 20 mg PO DAILY 11/15/21 [History] Rosuvastatin [Crestor] 10 mg PO DAILY 11/15/21 [History] Ferrous Sulfate [Iron (65 MG Elemental)] 325 mg PO DAILY 05/31/22 [History] Ipratropium [place] 0.06%Nasal [Atrovent Nasal 0.06%] 1 spr EA NOSTRIL BID 05/31/22 [History] Bumetanide [BUMEX] 1 mg PO BID 30 Days #60 tablet 06/02/22 [Rx] Melatonin 5 mg PO HS 30 Days #30 tablet 06/02/22 [Rx] diphenhydrAMINE [Benadryl] 50 mg PO HS PRN 30 Days #30 capsule 06/02/22 [Rx] Gabapentin [Neurontin] 200 mg PO BID #120 cap 08/16/22 [Rx] Budesonide-Formot 160-4.5 Mcg [Symbicort 160-4.5 Mcg Inhaler] 2 puff INHALATION RT-BID #1 each 08/20/22 [Rx] Follow up Appointment(s)/Referral([facility]): [facility] - 1 Week [facility],Clinic [Primary Care Provider] - 1-2 days Patient Instructions/Handouts: Weakness (DC) Activity/Diet/Wound Care/Special Instructions: the [facility] is setting up home care for you, if you do not hear from them in a few days - [facility] Please see your PCP. Discharge Disposition: HOME SELF-CARE
== END 2022-12-28 11:56 | disposition home or self-care (01) ==
LOC: EC 19:44 → 5NMEDONC 12-26 00:12
PROVIDERS: ADMIT Internal Medicine; ATTEND Internal Medicine
DX: R53.1 Weakness (principal); E87.20 Acidosis, unspecified; J96.11 Chronic respiratory failure with hypoxia; J43.9 Emphysema, unspecified; I10 Essential (primary) hypertension; I48.91 Unspecified atrial fibrillation; E78.5 Hyperlipidemia, unspecified; W01.0XXA Fall on same level from slipping, tripping and stumbling without subsequent striking against object, initial encounter; Z20.822 Contact with and (suspected) exposure to COVID-19; M79.651 Pain in right thigh; M79.652 Pain in left thigh; R26.2 Difficulty in walking, not elsewhere classified; N17.9 Acute kidney failure, unspecified; M19.90 Unspecified osteoarthritis, unspecified site; Z85.528 Personal history of other malignant neoplasm of kidney; Z90.5 Acquired absence of kidney; F17.200 Nicotine dependence, unspecified, uncomplicated; H35.3290 Exudative age-related macular degeneration, unspecified eye, stage unspecified; Z85.820 Personal history of malignant melanoma of skin; H54.8 Legal blindness, as defined in USA; H91.93 Unspecified hearing loss, bilateral; Z79.899 Other long term (current) drug therapy; Z79.01 Long term (current) use of anticoagulants; Z88.8 Allergy status to other drugs, medicaments and biological substances; Z80.8 Family history of malignant neoplasm of other organs or systems; Z82.3 Family history of stroke
CPT/HCPCS: 99285; 36415; 94640 ×6; 94760 ×3; 93005; 97530; 97162; 80053; 80048 ×3; 82550; 82803; 83605 ×2; 83735; 84484; 85025; 85610; 85730; 87636; 71046; G0378 ×3

== ENCOUNTER 2023-03-18 09:33 | Emergency (ER) | payer OTHER, MEDICARE ==
[2023-03-18] MEDS ORDERED: IPRATROPIUM-ALBUTEROL 3 ML NEB INHALATION STA (09:47)
--- NOTE | 2023-03-18 09:56 | ED ---
Recheck HPI - General Chief Complaint: Recheck/Abnormal Lab/Rx Stated Complaint: Abnormal Labs Time Seen by Provider: 03/18/23 09:39 Source: patient, RN notes reviewed Mode of arrival: ambulatory Limitations: no limitations - History of Present Illness Initial Comments: This is a 77-year-old male who presents to the emergency department for abnormal blood work. Patient had routine blood work done yesterday at the [facility], and received a phone call this morning stating that his carbon dioxide level was very high, and he needed to come to the emergency department. He does have COPD and wears oxygen at home. He has not had to increase this. He has felt slightly ill over the last week, but has otherwise not had any more difficulty breathing than normal. Denies any chest pain. He does regular breathing treatments at home and has a follow up with Dr. Ware, pulmonology, later this month. MD Complaint: abnormal lab - Related Data Home Medications Medication Instructions Recorded Confirmed Vit C/E/Zn/Coppr/Lutein/Zeaxan 1 cap PO BID 08/03/17 12/25/22 [Preservision Areds 2 Softgel] Escitalopram [Lexapro] 10 mg PO DAILY 11/25/20 12/25/22 Amiodarone [Cordarone] 200 mg PO DAILY 12/02/20 12/25/22 Albuterol Nebulized [Ventolin 2.5 mg INHALATION RT-Q4H 01/17/21 12/25/22 Nebulized] Roflumilast [Daliresp] 500 mcg PO DAILY 01/17/21 12/25/22 Digoxin [Lanoxin] 125 mcg PO DAILY 11/15/21 12/25/22 Famotidine [Pepcid] 20 mg PO DAILY 11/15/21 12/25/22 Rosuvastatin [Crestor] 10 mg PO DAILY 11/15/21 12/25/22 Ferrous Sulfate [Iron (65 MG 325 mg PO DAILY 05/31/22 12/25/22 Elemental)] Ipratropium [place] 0.06%Nasal 1 spr EA NOSTRIL BID 05/31/22 12/25/22 [Atrovent Nasal 0.06%] Previous Rx's Medication Instructions Recorded Apixaban [Eliquis] 5 mg PO BID 30 Days #60 tab 11/26/20 Potassium Chloride ER [K-Dur 20] 20 meq PO DAILY #30 tab 01/26/21 Bumetanide [BUMEX] 1 mg PO BID 30 Days #60 tablet 06/02/22 Melatonin 5 mg PO HS 30 Days #30 tablet 06/02/22 diphenhydrAMINE [Benadryl] 50 mg PO HS PRN 30 Days #30 capsule 06/02/22 Gabapentin [Neurontin] 200 mg PO BID #120 cap 08/16/22 Budesonide-Formot 160-4.5 Mcg 2 puff INHALATION RT-BID #1 each 08/20/22 [Symbicort 160-4.5 Mcg Inhaler] Allergies Allergy/AdvReac Type Severity Reaction Status Date / Time atorvastatin [From Lipitor] AdvReac Muscle pain Verified 03/18/23 09:36 Review of Systems ROS Statement: Those systems with pertinent positive or pertinent negative responses have been documented in the HPI. ROS Other: All systems not noted in ROS Statement are negative. Past Medical History Past Medical History: Atrial Fibrillation, Cancer, COPD, Eye Disorder, Hearing Disorder / Deafness, Hyperlipidemia, Hypertension, Osteoarthritis (OA) Additional Past Medical History / Comment(s): Emphysema (takes inhalers and uses oxygen at home). Hx Kidney Cancer in 2006, R nephrectomy.q Left eye detached retina. Wet Macular Degeneration right eye. Hx Melanoma on back. Bilateral hearing aid use, legally blind. History of Any Multi-Drug Resistant Organisms: None Reported Past Surgical History: Back Surgery Additional Past Surgical History / Comment(s): Right kidney removed. Left eye surgery X3 for detacted retina. Bilateral cataract surgery. Mohs surgery thoracic spine for melanoma. Past Anesthesia/Blood Transfusion Reactions: Previous Problems w/ Anesthesia Additional Past Anesthesia/Blood Transfusion Reaction / Comment(s): States low heart rate, light-headed and low BP X1 with anesthesia. "Got broke vocal cord and could not talk for 2 months after anesthesia one time." Past Psychological History: No Psychological Hx Reported Smoking Status: Current every day smoker Past Alcohol Use History: Daily Past Drug Use History: None Reported - Past Family History Mother Family Medical History: Cancer Additional Family Medical History / Comment(s): Brain Cancer. Father Family Medical History: CVA/TIA General Exam Limitations: no limitations General appearance: alert, in no apparent distress Head exam: Present: atraumatic, normocephalic, normal inspection Respiratory exam: Present: wheezes, decreased breath sounds, prolonged ex piratory Cardiovascular Exam: Present: regular rate, normal rhythm, normal heart sounds. Absent: systolic murmur, diastolic murmur, rubs, gallop, clicks Neurological exam: Present: alert, oriented X3, CN II-XII intact Psychiatric exam: Present: normal affect, normal mood Skin exam: Present: warm, dry, intact, normal color. Absent: rash Course Vital Signs 03/18/23 03/18/23 03/18/23 09:37 11:50 12:01 Temperature 98 F Pulse Rate 92 85 92 Respiratory 18 Rate Blood Pressure 133/60 O2 Sat by Pulse 91 L Oximetry 03/18/23 12:37 Temperature Pulse Rate 77 Respiratory 18 Rate Blood Pressure 117/95 O2 Sat by Pulse 95 Oximetry Medical Decision Making - Medical Decision Making This is a 77-year-old male who presents to the emergency department for shortness of breath and elevated CO2 levels. Was pt. sent in by a medical professional or institution? @ -No Did you speak to anyone other than the patient for history? @ -No Did you review nursing and triage notes? @ -Yes, and I agree, it is accurate with regards to the patient's symptoms. Were old charts reviewed? @ -No Differential Diagnosis? @ -Differential Dyspnea: Coronary syndrome, arrhythmia, tamponade, asthma, COPD, pulmonary embolism, pneumonia, pneumothorax, pulmonary effusion, anaphylaxis, diabetic ketoacidosis, flailed chest, pulmonary contusion, diaphragmatic rupture, anemia, neuro muscular, this is not meant to be an all-inclusive list. EKG interpreted by me (3pts min.)? @ -EKG interpreted by me demonstrating the following: Sinus rhythm. Ventricular rate 76 bpm, MS interval 155 ms, QRS duration 154 ms, QTC 389 ms. X-rays interpreted by me (1pt min.)? @ -Chest x-ray obtained, my interpretation identifies no localized consolidations or infiltrates. CT interpreted by me (1pt min.)? @ -Not obtained U/S interpreted by me (1pt. min.)? @ -Not obtained What testing was considered but not performed? (CT, X-rays, U/S, labs)? Why? @ -None What meds were considered but not given? Why? @ -None Did you discuss the management of the patient with other professionals? @ -No Did you reconcile home meds? @ -No Was smoking cessation discussed for >3mins.? @ -No Was critical care preformed (if so, how long)? @ -No Were there social determinants of health that impacted care today? How? (Homelessness, low income, unemployed, alcoholism, drug addiction, transportation, low edu. Level, literacy, decrease access to med. care, custodial, rehab)? @ -No Was there de-escalation of care discussed even if they declined? (Discuss DNR or withdrawal of care, Hospice)? @ -No What co-morbidities impacted this encounter? (DM, HTN, Smoking, COPD, CAD, Cancer, CVA, Hep., AIDS, mental health diagnosis, sleep apnea, morbid obesity)? @ -COPD Was patient admitted / discharged? @ -Discharged. Lab work obtained and found to be fairly unremarkable, with a CO2 of 37. This is better than it has been in the past for the patient and expected with his history of COPD. Covid, influenza, and RSV testing were negative. Chest x-ray reveals no acute process. He was given a DuoNeb breathing treatment in the emergency department. Given his current CO2 level, patient can be discharged home and will follow up with pulmonology as scheduled this month. Undiagnosed new problem with uncertain prognosis? @ -None Drug Therapy requiring intensive monitoring for toxicity (Heparin, Nitro, Insulin, Cardizem)? @ -None Were any procedures done? @ -None Diagnosis/symptom? @ -COPD Acute, or Chronic, or Acute on Chronic? @ -Chronic Uncomplicated (without systemic symptoms) or Complicated (systemic symptoms)? @ -Uncomplicated Side effects of treatment? @ -None Exacerbation, Progression, or Severe Exacerbation] @ -Stable Poses a threat to life or bodily function? @ -Not at this time Return precautions reviewed in depth, the patient is instructed to return to the emergency department with any new, worsening, or concerning symptoms. Patient verbalized understanding. This case was discussed in detail with the attending ED physician, Dr. Townsend. Presentation, findings, and treatment plan discussed in detail as well. - Lab Data Result diagrams: 03/18/23 10:48 03/18/23 10:48 Lab Results 03/18/23 03/18/23 03/18/23 Range/Units 10:48 10:48 10:48 WBC 8.3 (3.8-10.6) k/uL RBC 4.14 L (4.30-5.90) m/uL Hgb 12.9 L (13.0-17.5) gm/dL Hct 39.9 (39.0-53.0) % MCV 96.4 (80.0-100.0) fL MCH 31.2 (25.0-35.0) pg MCHC 32.4 (31.0-37.0) g/dL RDW 13.5 (11.5-15.5) % Plt Count 174 (150-450) k/uL MPV 7.1 Neutrophils % 76 % Lymphocytes % 10 % Monocytes % 8 % Eosinophils % 2 % Basophils % 0 % Neutrophils # 6.4 (1.3-7.7) k/uL Lymphocytes # 0.8 L (1.0-4.8) k/uL Monocytes # 0.7 (0-1.0) k/uL Eosinophils # 0.2 (0-0.7) k/uL Basophils # 0.0 (0-0.2) k/uL Sodium 139 (137-145) mmol/L Potassium 4.2 (3.5-5.1) mmol/L Chloride 90 L (98-107) mmol/L Carbon Dioxide 37 H (22-30) mmol/L Anion Gap 12 mmol/L BUN 26 H (9-20) mg/dL Creatinine 1.11 (0.66-1.25) mg/dL Est GFR (CKD-EPI)AfAm 74 (>60 ml/min/1.73 sqM) Est GFR (CKD-EPI)NonAf 64 (>60 ml/min/1.73 sqM) Glucose 93 (74-99) mg/dL Calcium 9.3 (8.4-10.2) mg/dL Total Bilirubin 0.7 (0.2-1.3) mg/dL AST 20 (17-59) U/L ALT 16 (4-49) U/L Alkaline Phosphatase 93 (38-126) U/L NT-Pro-B Natriuret Pep 155 pg/mL Total Protein 6.8 (6.3-8.2) g/dL Albumin 4.0 (3.5-5.0) g/dL Influenza Type A (PCR) Not Detected (Not Detectd) Influenza Type B (PCR) Not Detected (Not Detectd) RSV (PCR) Not Detected (Not Detectd) SARS-CoV-2 (PCR) Not Detected (Not Detectd) - Radiology Data Radiology results: report reviewed, image reviewed Disposition Clinical Impression: COPD (chronic obstructive pulmonary disease) Disposition: HOME SELF-CARE Instructions (If sedation given, give patient instructions): COPD (Chronic Obstructive Pulmonary Disease) (ED) Additional Instructions: Return to the emergency department with any new, worsening, or concerning symptoms. Follow up with your primary care provider in 1-[address] Ware as scheduled. Is patient prescribed a controlled substance at d/c from ED?: No Referrals: [facility],Clinic [Primary Care Provider] - 1-2 days
--- NOTE | 2023-03-18 10:23 | XR ---
EXAMINATION TYPE: XR chest 2V DATE OF EXAM: 03/18/2023 COMPARISON: 12/25/2022 HISTORY: 77 year-old male shortness of breath, difficulty breathing TECHNIQUE: AP and lateral views FINDINGS: Heart normal size. Aorta and pulmonary vasculature within normal limits. Some strandy densities in th e lower lungs likely atelectasis. No marsha consolidation or pleural effusion. Hyperinflation is prese nt. [facility] in the mid to lower thoracic spine. IMPRESSION: COPD. Some strandy atelectasis. No definite acute process.
[2023-03-18 10:26] VITALS: RESP 18; TEMP 98
[2023-03-18 11:06] LABS: Basophils % (A) 0 %; Eosinophils # (A) 0.2 k/uL (0-0.7); Eosinophils % (A) 2 %; HCT 39.9 % (39.0-53.0); HGB 12.9 gm/dL (13.0-17.5); Lymphocytes # (A) 0.8 k/uL (1.0-4.8); Lymphocytes % (A) 10 %; MCH 31.2 pg (25.0-35.0); MCHC 32.4 g/dL (31.0-37.0); MCV 96.4 fL (80.0-100.0); Mean Platelet Volume 7.1; Monocytes # (A) 0.7 k/uL (0-1.0); Monocytes % (A) 8 %; Neutrophils # (A) 6.4 k/uL (1.3-7.7); Neutrophils % (A) 76 %; Platelet Count 174 k/uL (150-450); RBC 4.14 m/uL (4.30-5.90); RDW 13.5 % (11.5-15.5); WBC 8.3 k/uL (3.8-10.6)
[2023-03-18 11:23] LABS: ALT 16 U/L (4-49); AST 20 U/L (17-59); African American GFR (CKD) 74 (>60 ml/min/1.73 sqM); Alkaline Phosphatase 93 U/L (38-126); Blood Urea Nitrogen 26 mg/dL (9-20); Calcium 9.3 mg/dL (8.4-10.2); Chloride 90 mmol/L (98-107); Glucose 93 mg/dL (74-99); Non-African American GFR(CKD) 64 (>60 ml/min/1.73 sqM); Potassium 4.2 mmol/L (3.5-5.1); Sodium 139 mmol/L (137-145); Total Bilirubin 0.7 mg/dL (0.2-1.3); Total Protein 6.8 g/dL (6.3-8.2)
[2023-03-18 11:29] LABS: Anion Gap 12 mmol/L
[2023-03-18 11:32] LABS: NT-Pro-B-Type Natriuretic Pept 155 pg/mL
[2023-03-18 11:35] LABS: Carbon Dioxide 37 mmol/L (22-30)
[2023-03-18 12:54] VITALS: BP 117/95; PULSE 77
== END 2023-03-18 12:45 | disposition home or self-care (01) ==
LOC: EC 09:33
DX: J44.9 Chronic obstructive pulmonary disease, unspecified (principal); E78.5 Hyperlipidemia, unspecified; I10 Essential (primary) hypertension; M19.90 Unspecified osteoarthritis, unspecified site; I48.91 Unspecified atrial fibrillation; F17.200 Nicotine dependence, unspecified, uncomplicated; Z88.8 Allergy status to other drugs, medicaments and biological substances; Z79.899 Other long term (current) drug therapy; Z20.822 Contact with and (suspected) exposure to COVID-19
CPT/HCPCS: 36415; 71046; 80053; 83880; 85025; 87636; 93005; 94640; 99284

== ENCOUNTER 2023-04-26 11:40 | Inpatient (IN) | payer OTHER, MEDICARE ==
[2023-04-26 11:49] LABS: Glucose,Whole Blood 117 mg/dL (70-110)
[2023-04-26 12:11] LABS: Basophils % (A) 0 %; Eosinophils # (A) 0.1 k/uL (0-0.7); Eosinophils % (A) 1 %; HGB 11.3 gm/dL (13.0-17.5); Hypochromasia Moderate; Lymphocytes # (A) 0.7 k/uL (1.0-4.8); Lymphocytes % (A) 8 %; MCH 31.4 pg (25.0-35.0); MCHC 31.3 g/dL (31.0-37.0); MCV 100.4 fL (80.0-100.0); Mean Platelet Volume 7.9; Monocytes # (A) 0.9 k/uL (0-1.0); Monocytes % (A) 9 %; Neutrophils # (A) 7.4 k/uL (1.3-7.7); Neutrophils % (A) 80 %; Platelet Count 182 k/uL (150-450); RBC 3.59 m/uL (4.30-5.90); RDW 13.1 % (11.5-15.5); WBC 9.4 k/uL (3.8-10.6)
[2023-04-26 12:23] LABS: INR 0.8 (<1.2); Partial Thromboplastin Time 24.9 sec (22.0-30.0); Prothrombin Time 9.4 sec (10.0-12.5)
[2023-04-26 12:34] LABS: VBG PH 7.3 (7.31-7.41)
[2023-04-26 12:43] LABS: ALT 24 U/L (4-49); AST 30 U/L (17-59); African American GFR (CKD) 58 (>60 ml/min/1.73 sqM); Albumin 3.4 g/dL (3.5-5.0); Alkaline Phosphatase 72 U/L (38-126); Blood Urea Nitrogen 40 mg/dL (9-20); Calcium 8.9 mg/dL (8.4-10.2); Chloride 93 mmol/L (98-107); Glucose 106 mg/dL (74-99); Magnesium 2.4 mg/dL (1.6-2.3); Non-African American GFR(CKD) 50 (>60 ml/min/1.73 sqM); Potassium 4.3 mmol/L (3.5-5.1); Sodium 142 mmol/L (137-145); Total Bilirubin 0.6 mg/dL (0.2-1.3); Total Protein 6.3 g/dL (6.3-8.2)
[2023-04-26 12:49] LABS: Anion Gap 8 mmol/L; NT-Pro-B-Type Natriuretic Pept 518 pg/mL
--- NOTE | 2023-04-26 12:49 | ED ---
Altered Mental Status HPI - General Chief Complaint: Altered Mental Status Stated Complaint: AMS Time Seen by Provider: 04/26/23 12:10 Source: patient, RN notes reviewed, old records reviewed Mode of arrival: EMS Limitations: altered mental status, physical limitation - History of Present Illness Initial Comments: This is a 77-year-old male is brought to ER today for evaluation of altered mental status not acting himself. Patient is severe COPD patient on 4 L of supportive supplemental oxygen. Family knows patient to be altered, confused throughout the day today which is been a problem with him before when his CO2 goes high, son is at bedside states patient has not been wearing his CPAP at night MD Complaint: altered mental status, confusion, weakness -: hour(s) Severity: moderate Consistency of Symptoms: waxing and waning Context: history of similar presentation, COPD Associated Symptoms: chest pain, cough Treatments Prior to Arrival: oxygen - Related Data Home Medications Medication Instructions Recorded Confirmed Vit C/E/Zn/Coppr/Lutein/Zeaxan 1 cap PO BID 08/03/17 04/26/23 [Preservision Areds 2 Softgel] Escitalopram [Lexapro] 10 mg PO DAILY 11/25/20 04/26/23 Amiodarone [Cordarone] 200 mg PO DAILY 12/02/20 04/26/23 Roflumilast [Daliresp] 500 mcg PO DAILY 01/17/21 04/26/23 Digoxin [Lanoxin] 125 mcg PO DAILY 11/15/21 04/26/23 Famotidine [Pepcid] 20 mg PO DAILY 11/15/21 04/26/23 Ferrous Sulfate [Iron (65 MG 325 mg PO DAILY 05/31/22 04/26/23 Elemental)] Albuterol Inhaler [Ventolin Hfa 2 puff INHALATION RT-Q6H PRN 04/26/23 04/26/23 Inhaler] Cholecalciferol [Vitamin D3 (25 25 mcg PO DAILY 04/26/23 04/26/23 Mcg = 1000 Iu)] Fluticasone Propion/Salmeterol 1 puff INHALATION RT-BID 04/26/23 04/26/23 [Wixela 500-50 Inhub] Loratadine 10 mg PO DAILY 04/26/23 04/26/23 Tiotropium 2.5 Mcg/Puff [Spiriva 2 puff INHALATION RT-DAILY 04/26/23 04/26/23 Respimat 2.5 Mcg] buPROPion [Wellbutrin] 150 mg PO BID 04/26/23 04/26/23 predniSONE 5 mg PO DAILY 04/26/23 04/26/23 Previous Rx's Medication Instructions Recorded Apixaban [Eliquis] 5 mg PO BID 30 Days #60 tab 11/26/20 Potassium Chloride ER [K-Dur 20] 20 meq PO DAILY #30 tab 01/26/21 Bumetanide [BUMEX] 1 mg PO BID 30 Days #60 tablet 06/02/22 dexAMETHasone [Decadron] 6 mg PO DAILY #6 tablet 04/30/23 Allergies Allergy/AdvReac Type Severity Reaction Status Date / Time atorvastatin [From Lipitor] AdvReac Muscle pain Verified 04/26/23 15:03 Review of Systems ROS Statement: Those systems with pertinent positive or pertinent negative responses have been documented in the HPI. ROS Other: All systems not noted in ROS Statement are negative. Past Medical History Past Medical History: Atrial Fibrillation, Cancer, COPD, Eye Disorder, Hearing Disorder / Deafness, Hyperlipidemia, Hypertension, Osteoarthritis (OA) Additional Past Medical History / Comment(s): Emphysema (takes inhalers and uses oxygen at home). Hx Kidney Cancer in 2006, R nephrectomy.q Left eye detached retina. Wet Macular Degeneration right eye. Hx Melanoma on back. Bilateral hearing aid use, legally blind. History of Any Multi-Drug Resistant Organisms: None Reported Past Surgical History: Back Surgery Additional Past Surgical History / Comment(s): Right kidney removed. Left eye surgery X3 for detacted retina. Bilateral cataract surgery. Mohs surgery thoracic spine for melanoma. Past Anesthesia/Blood Transfusion Reactions: Previous Problems w/ Anesthesia Additional Past Anesthesia/Blood Transfusion Reaction / Comment(s): States low heart rate, light-headed and low BP X1 with anesthesia. "Got broke vocal cord a nd could not talk for 2 months after anesthesia one time." Past Psychological History: No Psychological Hx Reported Smoking Status: Current every day smoker Past Alcohol Use History: Daily Past Drug Use History: None Reported - Past Family History Mother Family Medical History: Cancer Additional Family Medical History / Comment(s): Brain Cancer. Father Family Medical History: CVA/TIA General Exam Limitations: no limitations General appearance: alert, in no apparent distress, anxious, in distress Head exam: Present: atraumatic, normocephalic, normal inspection Eye exam: Present: normal appearance, PERRL, EOMI. Absent: scleral icterus, conjunctival injection, periorbital swelling ENT exam: Present: normal exam, mucous membranes moist Neck exam: Present: normal inspection. Absent: tenderness, meningismus, lymphad enopathy Respiratory exam: Present: respiratory distress, wheezes, accessory muscle use, decreased breath sounds, prolonged expiratory. Absent: rales, rhonchi, stridor Cardiovascular Exam: Present: regular rate, normal rhythm, normal heart sounds. Absent: systolic murmur, diastolic murmur, rubs, gallop, clicks GI/Abdominal exam: Present: soft, normal bowel sounds. Absent: distended, tenderness, guarding, rebound, rigid Extremities exam: Present: normal inspection, full ROM, normal capillary refill. Absent: tenderness, pedal edema, joint swelling, calf tenderness Back exam: Present: normal inspection Neurological exam: Present: alert, oriented X3, CN II-XII intact Psychiatric exam: Present: normal affect, normal mood Skin exam: Present: warm, dry, intact, normal color. Absent: rash Course Vital Signs 04/26/23 04/26/23 04/26/23 11:44 11:49 12:54 Temperature 98.1 F Pulse Rate 79 80 Pulse Rate [ Pulse Oximetery ] Respiratory 18 18 18 Rate Blood Pressure 118/65 136/56 Blood Pressure [Left Arm] O2 Sat by Pulse 92 L 91 L Oximetry Fraction of Inspired Oxygen (FIO2) 04/26/23 04/26/23 04/26/23 12:55 13:07 13:37 Temperature Pulse Rate 76 Pulse Rate [ Pulse Oximetery ] Respiratory 22 Rate Blood Pressure 104/47 Blood Pressure [Left Arm] O2 Sat by Pulse 94 L Oximetry Fraction of 40 40 Inspired Oxygen (FIO2) 04/26/23 04/26/23 04/26/23 14:57 15:00 15:10 Temperature 98.0 F Pulse Rate 77 78 Pulse Rate [ 80 Pulse Oximetery ] Respiratory 20 20 20 Rate Blood Pressure Blood Pressure 129/64 [Left Arm] O2 Sat by Pulse 88 L Oximetry Fraction of 40 Inspired Oxygen (FIO2) 04/26/23 04/26/23 04/26/23 15:35 17:04 17:14 Temperature 97.2 F L 97.0 F L Pulse Rate 75 77 70 Pulse Rate [ Pulse Oximetery ] Respiratory 18 18 18 Rate Blood Pressure 106/67 107/35 110/40 Blood Pressure [Left Arm] O2 Sat by Pulse 93 L 91 L 91 L Oximetry Fraction of Inspired Oxygen (FIO2) 04/26/23 17:35 Temperature Pulse Rate Pulse Rate [ Pulse Oximetery ] Respiratory Rate Blood Pressure Blood Pressure [Left Arm] O2 Sat by Pulse Oximetry Fraction of 40 Inspired Oxygen (FIO2) - Reevaluation(s) Reevaluation #1: 04/26/23 14:40 Records reviewed Reevaluation #2: 04/26/23 14:40 Patient symptoms are relatively unchanged placed on BiPAP Reevaluation #3: 04/26/23 14:40 Patient informed results and questions answered Reevaluation #4: 04/26/23 14:40 Was pt. sent in by a medical professional or institution (, PA, SHOPPER'S AIDE, urgent care, hospital, or group home...) When possible be specific @ -no Did you speak to anyone other than the patient for history (EMS, parent, family, police, friend...)? What history was obtained from this source @ -no Did you review nursing and triage notes (agree or disagree)? Why? @ -agree Are old charts reviewed (outside hosp., previous admission, EMS record, old EKG, old radiological studies, urgent care reports/EKG's, group home records)? Report findings @ -yes Differential Diagnosis (chest pain, altered mental status, abdominal pain women, abdominal pain men, vaginal bleeding, weakness, fever, dyspnea, syncope, headache, dizziness, GI bleed, back pain, seizure, CVA, palpatations, mental health, musculoskeletal)? @ -prior EKG interpreted by me (3pts min.). @ -yes X-rays interpreted by me (1pt min.). @ -yes positive for CHF CT interpreted by me (1pt min.). @ -no U/S interpreted by me (1pt. min.). @ -no What testing was considered but not performed or refused? (CT, X-rays, U/S, labs)? Why? @ -none What meds were considered but not given or refused? Why? @ -none Did you discuss the management of the patient with other professionals (professionals i.e. , PA, SHOPPER'S AIDE, lab, RT, psych nurse, marriage and family social worker, piccoloist, teacher, weapons officer naval activity, rifle case repairer)? Give summary @ -no Was smoking cessation discussed for >3mins.? @ -no Was critical care preformed (if so, how long)? @ -no Were there social determinants of health that impacted care today? How? (Homelessness, low income, unemployed, alcoholism, drug addiction, transportation, low edu. Level, literacy, decrease access to med. care, detention, rehab)? @ -none Was there de-escalation of care discussed even if they declined (Discuss DNR or withdrawal of care, Hospice)? DNR status @ -no What co-morbidities impacted this encounter? (DM, HTN, Smoking, COPD, CAD, Cancer, CVA, ARF, Chemo, Hep., AIDS, mental health diagnosis, sleep apnea, morbid obesity)? @ -none Was patient admitted / discharged? Hospital course, mention meds given and route, prescriptions, significant lab abnormalities, going to OR and other pertinent info. @ - 77 male to the ER for evaluation. Patient presents to the emergency department today for evaluation of severe COPD CHF, patient will be admitted for breathing treatments, BiPAP due to respiratory failure. Admitted Undiagnosed new problem with uncertain prognosis? @ -no Drug Therapy requiring intensive monitoring for toxicity (Heparin, Nitro, Insulin, Cardizem)? @ -no Were any procedures done? @ -no Diagnosis/symptom? @ -Respiratory failure, CHF, COPD Acute, or Chronic, or Acute on Chronic? @ -Acute Uncomplicated (without systemic symptoms) or Complicated (systemic symptoms)? @ -Complicated Side effects of treatment? @ -no Exacerbation, Progression, or Severe Exacerbation? @ -exacerbation Poses a threat to life or bodily function? How? (Chest pain, USA, MA, pneumonia, PE, COPD, DKA, ARF, appy, cholecystitis, CVA, Diverticulitis, Homicidal, Suicidal, threat to staff... and all critical care pts) @ -yes BiPAP dependent respiratory disease Reevaluation #5: 04/26/23 14:40 Differential Dyspnea: Coronary syndrome, arrhythmia, tamponade, asthma, COPD, pulmonary embolism, pneumonia, pneumothorax, pulmonary effusion, anaphylaxis, diabetic ketoacidosis, flailed chest, pulmonary contusion, diaphragmatic rupture, anemia, neuromuscu lar, this is not meant to be an all-inclusive list. - Consultations Consultation #1: geraldine maciel agrees to admit the patient Medical Decision Making - Medical Decision Making 77 male to the ER for evaluation. Patient presents to the emergency department today for evaluation of severe COPD CHF, patient will be admitted for breathing treatments, BiPAP due to respiratory failure. - Lab Data Result diagrams: 04/30/23 08:13 04/30/23 08:13 Lab Results 04/26/23 04/26/23 04/26/23 Range/Units 11:47 12:00 12:00 WBC 9.4 (3.8-10.6) k/uL RBC 3.59 L (4.30-5.90) m/uL Hgb 11.3 L (13.0-17.5) gm/dL Hct 36.0 L (39.0-53.0) % MCV 100.4 H (80.0-100.0) fL MCH 31.4 (25.0-35.0) pg MCHC 31.3 (31.0-37.0) g/dL RDW 13.1 (11.5-15.5) % Plt Count 182 (150-450) k/uL MPV 7.9 Neutrophils % 80 % Lymphocytes % 8 % Monocytes % 9 % Eosinophils % 1 % Basophils % 0 % Neutrophils # 7.4 (1.3-7.7) k/uL Lymphocytes # 0.7 L (1.0-4.8) k/uL Monocytes # 0.9 (0-1.0) k/uL Eosinophils # 0.1 (0-0.7) k/uL Basophils # 0.0 (0-0.2) k/uL Hypochromasia Moderate PT 9.4 L (10.0-12.5) sec INR 0.8 (<1.2) APTT 24.9 (22.0-30.0) sec VBG pH (7.31-7.41) VBG pCO2 (37-51) mmHg VBG HCO3 (24-28) mmol/L Sodium (137-145) mmol/L Potassium (3.5-5.1) mmol/L Chloride (98-107) mmol/L Carbon Dioxide (22-30) mmol/L Anion Gap mmol/L BUN (9-20) mg/dL Creatinine (0.66-1.25) mg/dL Est GFR (CKD-EPI)AfAm (>60 ml/min/1.73 sqM) Est GFR (CKD-EPI)NonAf (>60 ml/min/1.73 sqM) Glucose (74-99) mg/dL POC Glucose (mg/dL) 117 H (70-110) mg/dL POC Glu Plant Utilities Engineer ID Machado, Dashawn Plasma Lactic Acid Fabiano (0.7-2.0) mmol/L Calcium (8.4-10.2) mg/dL Magnesium (1.6-2.3) mg/dL Total Bilirubin (0.2-1.3) mg/dL AST (17-59) U/L ALT (4-49) U/L Alkaline Phosphatase (38-126) U/L Troponin I (0.000-0.034) ng/mL NT-Pro-B Natriuret Pep pg/mL Total Protein (6.3-8.2) g/dL Albumin (3.5-5.0) g/dL 04/26/23 04/26/23 04/26/23 Range/Units 12:00 12:00 12:00 WBC (3.8-10.6) k/uL RBC (4.30-5.90) m/uL Hgb (13.0-17.5) gm/dL Hct (39.0-53.0) % MCV (80.0-100.0) fL MCH (25.0-35.0) pg MCHC (31.0-37.0) g/dL RDW (11.5-15.5) % Plt Count (150-450) k/uL MPV Neutrophils % % Lymphocytes % % Monocytes % % Eosinophils % % Basophils % % Neutrophils # (1.3-7.7) k/uL Lymphocytes # (1.0-4.8) k/uL Monocytes # (0-1.0) k/uL Eosinophils # (0-0.7) k/uL Basophils # (0-0.2) k/uL Hypochromasia PT (10.0-12.5) sec INR (<1.2) APTT (22.0-30.0) sec VBG pH (7.31-7.41) VBG pCO2 (37-51) mmHg VBG HCO3 (24-28) mmol/L Sodium 142 (137-145) mmol/L Potassium 4.3 (3.5-5.1) mmol/L Chloride 93 L (98-107) mmol/L Carbon Dioxide 41 H* (22-30) mmol/L Anion Gap 8 mmol/L BUN 40 H (9-20) mg/dL Creatinine 1.36 H (0.66-1.25) mg/dL Est GFR (CKD-EPI)AfAm 58 (>60 ml/min/1.73 sqM) Est GFR (CKD-EPI)NonAf 50 (>60 ml/min/1.73 sqM) Glucose 106 H (74-99) mg/dL POC Glucose (mg/dL) (70-110) mg/dL POC Glu Plant Utilities Engineer ID Plasma Lactic Acid Fabiano 0.8 (0.7-2.0) mmol/L Calcium 8.9 (8.4-10.2) mg/dL Magnesium 2.4 H (1.6-2.3) mg/dL Total Bilirubin 0.6 (0.2-1.3) mg/dL AST 30 (17-59) U/L ALT 24 (4-49) U/L Alkaline Phosphatase 72 (38-126) U/L Troponin I 0.026 (0.000-0.034) ng/mL NT-Pro-B Natriuret Pep 518 pg/mL Total Protein 6.3 (6.3-8.2) g/dL Albumin 3.4 L (3.5-5.0) g/dL 04/26/23 Range/Units 12:00 WBC (3.8-10.6) k/uL RBC (4.30-5.90) m/uL Hgb (13.0-17.5) gm/dL Hct (39.0-53.0) % MCV (80.0-100.0) fL MCH (25.0-35.0) pg MCHC (31.0-37.0) g/dL RDW (11.5-15.5) % Plt Count (150-450) k/uL MPV Neutrophils % % Lymphocytes % % Monocytes % % Eosinophils % % Basophils % % Neutrophils # (1.3-7.7) k/uL Lymphocytes # (1.0-4.8) k/uL Monocytes # (0-1.0) k/uL Eosinophils # (0-0.7) k/uL Basophils # (0-0.2) k/uL Hypochromasia PT (10.0-12.5) sec INR (<1.2) APTT (22.0-30.0) sec VBG pH 7.30 L (7.31-7.41) VBG pCO2 92 H* (37-51) mmHg VBG HCO3 45 H (24-28) mmol/L Sodium (137-145) mmol/L Potassium (3.5-5.1) mmol/L Chloride (98-107) mmol/L Carbon Dioxide (22-30) mmol/L Anion Gap mmol/L BUN (9-20) mg/dL Creatinine (0.66-1.25) mg/dL Est GFR (CKD-EPI)AfAm (>60 ml/min/1.73 sqM) Est GFR (CKD-EPI)NonAf (>60 ml/min/1.73 sqM) Glucose (74-99) mg/dL POC Glucose (mg/dL) (70-110) mg/dL POC Glu Plant Utilities Engineer ID Plasma Lactic Acid Fabiano (0.7-2.0) mmol/L Calcium (8.4-10.2) mg/dL Magnesium (1.6-2.3) mg/dL Total Bilirubin (0.2-1.3) mg/dL AST (17-59) U/L ALT (4-49) U/L Alkaline Phosphatase (38-126) U/L Troponin I (0.000-0.034) ng/mL NT-Pro-B Natriuret Pep pg/mL Total Protein (6.3-8.2) g/dL Albumin (3.5-5.0) g/dL - EKG Data -: EKG Interpreted by Me (EKG shows sinus 79 MD 140 QRS 154 QTc 394) - Radiology Data Radiology results: report reviewed (CHest X-rays negative for acute disease), image reviewed Disposition Clinical Impression: Generalized weakness, Dyspnea, Congestive heart failure, COPD exacerbation, CO2 retention, Hypercarbia, Altered mental status Disposition: ADMITTED IP TO THIS [facility] Condition: Stable Is patient prescribed a controlled substance at d/c from ED?: No Time of Disposition: 14:00
[2023-04-26 12:54] LABS: Carbon Dioxide 41 mmol/L (22-30)
[2023-04-26] MEDS ORDERED: IPRATROPIUM-ALBUTEROL 3 ML NEB INHALATION STA ×2 (14:00→14:21)
[2023-04-26] MEDS ORDERED: ALBUTEROL NEBULIZED 2.5 MG/3 ML INHALATION PRN (14:00)
[2023-04-26] MEDS ORDERED: NALOXONE 0.4 MG/ML 1 ML VIAL IVP PRN (14:00)
[2023-04-26] MEDS ORDERED: NON FORMULARY DRUG (Albuterol Inhaler 90 MCG Puff) INHALATION PRN (16:25)
--- NOTE | 2023-04-26 16:36 | P.HPIM ---
History of Present Illness H&P Date: 04/26/23 Patient is a 77-year-old male with history of chronic hypoxic respiratory failure on 4 L nasal cannula, COPD, hypertension, atrial fibrillation, pulmonary hypertension, mildly reduced systolic function, dyslipidemia presenting with shortness of breath. Patient is a poor historian. He claims that he has been feeling weak and short of breath over the last 1 week. He has also noticed increase cough with minimal sputum production. He denies any chest pain, palpitations, abdominal pain, nausea, vomiting, urinary or bowel complaints. He denies any significant orthopnea or PND. He normally ambulates using a walker/cane. He lives with his . Unclear if patient still smokes. He says he occasionally drinks alcohol, denies any illicit drug use. Temperature is 98.1, pulse 79, respiratory rate 18, blood pressure 118/65, saturating at 92% on 3 L, now on BiPAP. WBC never 4, hemoglobin 11.3, pH 7.3, pCO2 92, bicarb 41, creatinine 1.36 slightly above baseline, proBNP 518, troponin 0.026, magnesium 2.4. Chest x-ray independently interpreted, shows interstitial opacities. EKG independently interpreted, shows sinus rhythm with left bundle branch block. Patient admitted for COPD exacerbation. Pulmonology consulted. Pertinent positives and negatives as discussed in HPI, a complete review of systems was performed and all other systems are negative. Patient seen and examined at bedside. Vital signs reviewed General: nontoxic, no distress, appears at stated age, morbidly obese Derm: warm, dry Head: atraumatic, normocephalic, symmetric Eyes: EOMI, no lid lag, anicteric sclera, pupils equal round reactive to light ENT: Nose and ears atraumatic Neck: No thyromegaly, supple Mouth: no lip lesion, mucus membranes moist Cardiovascular: S1S2 reg, no murmur, no edema Lungs: Bibasilar rales, no wheeze, no accessory muscle use, on BiPAP Abdominal: soft, nontender to palpation, no guarding, no appreciable organomegaly Ext: no gross muscle atrophy, muscle strength muscle strength 5 out of 5 in all 4 extremities, no contractures Neuro: CN II-XII grossly intact Psych: Alert, oriented, appropriate affect Assessment/Plan: Active: Acute COPD exacerbation Acute on chronic hypoxic and hypercapnic respiratory failure Respiratory acidosis -We'll obtain a respiratory viral panel -Continue BiPAP -IV Solu-Medrol 40 every 8 hours, monitor mentation -albuterol PRN, Wixela BID, Spiriva Daily -Pulmonology consulted -Repeat blood gas and BMP tomorrow Acute on chronic anemia -No significant change from baseline -No active bleeding -Repeat CBC tomorrow Chronic: Paroxysmal atrial fibrillation Hypertension Pulmonary hypertension Mildly reduced systolic function, not in exacerbation Dyslipidemia The patient is admitted with an anticipated greater than 2 midnight stay as inpatient status for evaluation of COPD exacerbation. Surrogate decision-maker: CODE STATUS: Full code DVT prophylaxis: drea Anticipated discharge date: Pending clinical course Anticipated discharge place: Pending clinical course A total of 65 minutes was spent on the care of this complex patient more than 50% of the time was spent in counseling and care coordination. Past Medical History Past Medical History: Atrial Fibrillation, Cancer, COPD, Eye Disorder, Hearing Disorder / Deafness, Hyperlipidemia, Hypertension, Osteoarthritis (OA) Additional Past Medical History / Comment(s): Emphysema (takes inhalers and uses oxygen at home). Hx Kidney Cancer in 2006, R nephrectomy.q Left eye detached retina. Wet Macular Degeneration right eye. Hx Melanoma on back. Bilateral hearing aid use, legally blind. History of Any Multi-Drug Resistant Organisms: None Reported Past Surgical History: Back Surgery Additional Past Surgical History / Comment(s): Right kidney removed. Left eye surgery X3 for detacted retina. Bilateral cataract surgery. Mohs surgery thoracic spine for melanoma. Past Anesthesia/Blood Transfusion Reactions: Previous Problems w/ Anesthesia Additional Past Anesthesia/Blood Transfusion Reaction / Comment(s): States low heart rate, light-headed and low BP X1 with anesthesia. "Got broke vocal cord and could not talk for 2 months after anesthesia one time." Past Psychological History: No Psychological Hx Reported Smoking Status: Current every day smoker Past Alcohol Use History: Daily Past Drug Use History: None Reported - Past Family History Mother Family Medical History: Cancer Additional Family Medical History / Comment(s): Brain Cancer. Father Family Medical History: CVA/TIA Medications and Allergies Home Medications Medication Instructions Recorded Confirmed Type Vit C/E/Zn/Coppr/Lutein/Zeaxan 1 cap PO BID 08/03/17 04/26/23 History [Preservision Areds 2 Softgel] Escitalopram [Lexapro] 10 mg PO DAILY 11/25/20 04/26/23 History Apixaban [Eliquis] 5 mg PO BID 30 Days #60 tab 11/26/20 04/26/23 Rx Amiodarone [Cordarone] 200 mg PO DAILY 12/02/20 04/26/23 History Roflumilast [Daliresp] 500 mcg PO DAILY 01/17/21 04/26/23 History Potassium Chloride ER [K-Dur 20] 20 meq PO DAILY #30 tab 01/26/21 04/26/23 Rx Digoxin [Lanoxin] 125 mcg PO DAILY 11/15/21 04/26/23 History Famotidine [Pepcid] 20 mg PO DAILY 11/15/21 04/26/23 History Ferrous Sulfate [Iron (65 MG 325 mg PO DAILY 05/31/22 04/26/23 History Elemental)] Bumetanide [BUMEX] 1 mg PO BID 30 Days #60 tablet 06/02/22 04/26/23 Rx Gabapentin [Neurontin] 200 mg PO BID #120 cap 08/16/22 04/26/23 Rx Albuterol Inhaler [Ventolin Hfa 2 puff INHALATION RT-Q6H PRN 04/26/23 04/26/23 History Inhaler] Cholecalciferol [Vitamin D3 (25 25 mcg PO DAILY 04/26/23 04/26/23 History Mcg = 1000 Iu)] Fluticasone Propion/Salmeterol 1 puff INHALATION RT-BID 04/26/23 04/26/23 History [Wixela 500-50 Inhub] Loratadine 10 mg PO DAILY 04/26/23 04/26/23 History Tiotropium 2.5 Mcg/Puff [Spiriva 2 puff INHALATION RT-DAILY 04/26/23 04/26/23 History Respimat 2.5 Mcg] buPROPion [Wellbutrin] 150 mg PO BID 04/26/23 04/26/23 History predniSONE 5 mg PO DAILY 04/26/23 04/26/23 History traZODone HCL [Desyrel] 50 mg PO HS 04/26/23 04/26/23 History Allergies Allergy/AdvReac Type Severity Reaction Status Date / Time atorvastatin [From Lipitor] AdvReac Muscle pain Verified 04/26/23 15:03 Physical Exam Vitals: Vital Signs Temp Pulse Resp BP Pulse Ox FiO2 04/26/23 15:35 75 18 106/67 93 L 04/26/23 15:10 78 20 04/26/23 15:00 77 20 40 04/26/23 13:37 76 22 104/47 94 L 04/26/23 13:07 40 04/26/23 12:55 40 04/26/23 12:54 80 18 136/56 91 L 04/26/23 11:49 18 04/26/23 11:44 98.1 F 79 18 118/65 92 L Intake and Output 04/26/23 04/26/23 04/26/23 06:59 14:59 22:59 Other: Weight 102.058 kg Results CBC & Chem 7: 04/26/23 12:00 04/26/23 12:00 Labs: Abnormal Lab Results - Last 24 Hours (Table) 04/26/23 04/26/23 04/26/23 Range/Units 11:47 12:00 12:00 RBC 3.59 L (4.30-5.90) m/uL Hgb 11.3 L (13.0-17.5) gm/dL Hct 36.0 L (39.0-53.0) % MCV 100.4 H (80.0-100.0) fL Lymphocytes # 0.7 L (1.0-4.8) k/uL PT 9.4 L (10.0-12.5) sec VBG pH (7.31-7.41) VBG pCO2 (37-51) mmHg VBG HCO3 (24-28) mmol/L Chloride (98-107) mmol/L Carbon Dioxide (22-30) mmol/L BUN (9-20) mg/dL Creatinine (0.66-1.25) mg/dL Glucose (74-99) mg/dL POC Glucose (mg/dL) 117 H (70-110) mg/dL Magnesium (1.6-2.3) mg/dL Albumin (3.5-5.0) g/dL 04/26/23 04/26/23 Range/Units 12:00 12:00 RBC (4.30-5.90) m/uL Hgb (13.0-17.5) gm/dL Hct (39.0-53.0) % MCV (80.0-100.0) fL Lymphocytes # (1.0-4.8) k/uL PT (10.0-12.5) sec VBG pH 7.30 L (7.31-7.41) VBG pCO2 92 H* (37-51) mmHg VBG HCO3 45 H (24-28) mmol/L Chloride 93 L (98-107) mmol/L Carbon Dioxide 41 H* (22-30) mmol/L BUN 40 H (9-20) mg/dL Creatinine 1.36 H (0.66-1.25) mg/dL Glucose 106 H (74-99) mg/dL POC Glucose (mg/dL) (70-110) mg/dL Magnesium 2.4 H (1.6-2.3) mg/dL Albumin 3.4 L (3.5-5.0) g/dL
--- NOTE | 2023-04-26 17:05 | XR ---
EXAMINATION TYPE: XR chest 2V DATE OF EXAM: 04/26/2023 1:05 PM CLINICAL INDICATION:Male, 77 years old with history of difficulty breathing; [facility] COMPARISON: 03/18/2023 TECHNIQUE: XR chest 2V. Frontal PA and lateral views of the chest. FINDINGS: EKG leads over the chest. No indwelling lines are seen. Heart again appears enlarged. Aorta is mildly tortuous. There is increased central vascular congestion, interstitial and alveolar opacities in the mid to lower lungs bilaterally compared to prior. Suspect enlarging small pleural effusions with bib asilar infiltrates or atelectasis. No visualized pneumothorax. There may be background COPD. Osseous structures appear unchanged. Mild degenerative changes of the shoulders and spine. IMPRESSION: Cardiomegaly, pulmonary vascular congestion, edema and bilateral pleural effusions. Correlate clinica lly for congestive heart failure. Superimposed infection should be excluded clinically.
[2023-04-26 17:20] LABS: VBG PH 7.47 (7.31-7.41)
[2023-04-26] MEDS: BUMETANIDE 1 MG TAB PO SCH (20:05)
[2023-04-26] MEDS: APIXABAN 5 MG TAB PO SCH (20:05)
[2023-04-26] MEDS: buPROPion 75 MG TAB PO SCH (20:05)
[2023-04-26] MEDS ORDERED: ALBUTEROL HFA INHALER INHALATION PRN (21:17)
[2023-04-26] MEDS: SYMBICORT 160-4.5 MCG INHALER INHALATION SCH (21:33)
[2023-04-27] MEDS ORDERED: methylPREDNISolone SOD SUCCI 40 MG/ML 1 ML VIAL IV SCH
--- NOTE | 2023-04-27 03:58 | P.CNPUL ---
History of Present Illness Consult date: 04/27/23 Requesting physician: Frederic Carmen Reason for consult: COPD Chief complaint: Altered mental status History of present illness: I am seeing this patient in consultation today 04/27/2023 after he was not acting himself while at home, he does have advanced COPD. He was positive for COVID-19 on arrival. Patient is a 77-year-old white male with past medical history significant for severe COPD, atrial fibrillation, hyperlipidemia, hypertension, renal cancer with previous right nephrectomy, macular degeneration, among other things. Patient does follow in the pulmonary office with Dr. Ware for management of his severe COPD/emphysema. He did have a recent office visit a little over one week ago. Recent PFT demonstrates a FEV1 37% of predicted. He is oxygen dependent while at home on 2 L nasal cannula. He is reportedly supposed to wear a AVAPS machine at night. Patient is currently lying in bed, on 4 L/m nasal cannula, in no acute distress. Apparently, he was noticed to be acting "off" while at home by his . He was confused and weak. Earlier in the week, he had URI-like symptoms such as runny nose, cough. He is now more short of breath than normal. Denies any fevers, chest pain, hemoptysis. Denies any heart palpitations, syncope, lower extremity edema. His had similar URI symptoms earlier in the week. VBG on arrival was consistent with hypercapnic respiratory failure. Patient was initially placed on BiPAP with settings 14/6 and FiO2 40%. He is currently alert and oriented, no signs of hypercapnia. He did test positive for COVID-19. Chest x-ray on arrival showed some cardiomegaly, pulmonary vascular congestion, and bilateral pleural effusions. No obvious evidence of pneumonia. CBC shows WBC count of 9.4, hemoglobin 11.3, hematocrit 36, platelets 182. CMP on arrival shows a sodium 142, potassium 4.3, chloride 93, serum bicarb 41, BUN 40, creatinine 1.36, glucose 106. Troponin 0.026. NT proBNP 518. ECG currently demonstrates normal sinus rhythm with a right bundle branch block. Afebrile. Patient appears hemodynamically stable. Review of Systems REVIEW OF SYSTEMS: CONSTITUTIONAL: Denies any recent significant weight loss or weight gain. Endorses generalized weakness. Denies fevers. EYES: Denies change in vision. EARS, NOSE, MOUTH, THROAT: Denies headaches, denies sore throat. CARDIOVASCULAR: Denies chest pain, palpitations or syncopal episodes. RESPIRATORY: See HPI GASTROINTESTINAL: Denies change in appetite, abdominal pain, nausea and vomiting, or diarrhea GENITOURINARY: Denies hematuria, denies infections. MUSKULOSKELETAL: Denies pain, denies swelling. INTEGUMENTARY: Denies rash, denies eczema. NEUROLOGICAL: Denies recent memory loss, no recent seizure activity. PSYCHIATRIC: Denies anxiety, denies depression. HEMATOLOGIC/LYMPHATIC: Denies anemia, denies enlarged lymph node Past Medical History Past Medical History: Atrial Fibrillation, Cancer, COPD, Eye Disorder, Hearing Disorder / Deafness, Hyperlipidemia, Hypertension, Osteoarthritis (OA) Additional Past Medical History / Comment(s): Emphysema (takes inhalers and uses oxygen at home). Hx Kidney Cancer in 2006, R nephrectomy.q Left eye detached retina. Wet Macular Degeneration right eye. Hx Melanoma on back. Bilateral heari ng aid use, legally blind. History of Any Multi-Drug Resistant Organisms: None Reported Past Surgical History: Back Surgery Additional Past Surgical History / Comment(s): Right kidney removed. Left eye surgery X3 for detacted retina. Bilateral cataract surgery. Mohs surgery thoracic spine for melanoma. Past Anesthesia/Blood Transfusion Reactions: Previous Problems w/ Anesthesia Additional Past Anesthesia/Blood Transfusion Reaction / Comment(s): States low heart rate, light-headed and low BP X1 with anesthesia. "Got broke vocal cord and could not talk for 2 months after anesthesia one time." Past Psychological History: No Psychological Hx Reported Smoking Status: Current every day smoker Past Alcohol Use History: Daily Past Drug Use History: None Reported - Past Family History Mother Family Medical History: Cancer Additional Family Medical History / Comment(s): Brain Cancer. Father Family Medical History: CVA/TIA Medications and Allergies Home Medications Medication Instructions Recorded Confirmed Type Vit C/E/Zn/Coppr/Lutein/Zeaxan 1 cap PO BID 08/03/17 04/26/23 History [Preservision Areds 2 Softgel] Escitalopram [Lexapro] 10 mg PO DAILY 11/25/20 04/26/23 History Apixaban [Eliquis] 5 mg PO BID 30 Days #60 tab 11/26/20 04/26/23 Rx Amiodarone [Cordarone] 200 mg PO DAILY 12/02/20 04/26/23 History Roflumilast [Daliresp] 500 mcg PO DAILY 01/17/21 04/26/23 History Potassium Chloride ER [K-Dur 20] 20 meq PO DAILY #30 tab 01/26/21 04/26/23 Rx Digoxin [Lanoxin] 125 mcg PO DAILY 11/15/21 04/26/23 History Famotidine [Pepcid] 20 mg PO DAILY 11/15/21 04/26/23 History Ferrous Sulfate [Iron (65 MG 325 mg PO DAILY 05/31/22 04/26/23 History Elemental)] Bumetanide [BUMEX] 1 mg PO BID 30 Days #60 tablet 06/02/22 04/26/23 Rx Gabapentin [Neurontin] 200 mg PO BID #120 cap 08/16/22 04/26/23 Rx Albuterol Inhaler [Ventolin Hfa 2 puff INHALATION RT-Q6H PRN 04/26/23 04/26/23 History Inhaler] Cholecalciferol [Vitamin D3 (25 25 mcg PO DAILY 04/26/23 04/26/23 History Mcg = 1000 Iu)] Fluticasone Propion/Salmeterol 1 puff INHALATION RT-BID 04/26/23 04/26/23 Hist ory [Wixela 500-50 Inhub] Loratadine 10 mg PO DAILY 04/26/23 04/26/23 History Tiotropium 2.5 Mcg/Puff [Spiriva 2 puff INHALATION RT-DAILY 04/26/23 04/26/23 History Respimat 2.5 Mcg] buPROPion [Wellbutrin] 150 mg PO BID 04/26/23 04/26/23 History predniSONE 5 mg PO DAILY 04/26/23 04/26/23 History traZODone HCL [Desyrel] 50 mg PO HS 04/26/23 04/26/23 History Allergies Allergy/AdvReac Type Severity Reaction Status Date / Time atorvastatin [From Lipitor] AdvReac Muscle pain Verified 04/26/23 15:03 Physical Exam Vitals: Vital Signs Temp Pulse Pulse Resp BP BP Pulse Ox 04/27/23 03:10 98.1 F 87 20 123/78 89 L 04/27/23 01:08 20 04/26/23 23:34 98.3 F 83 20 111/73 91 L 04/26/23 20:00 97.1 F L 76 20 129/64 94 L 04/26/23 17:39 04/26/23 17:35 04/26/23 17:14 97.0 F L 70 18 110/40 91 L 04/26/23 17:04 97.2 F L 77 18 107/35 91 L 04/26/23 15:35 75 18 106/67 93 L 04/26/23 15:10 78 20 04/26/23 15:00 77 20 04/26/23 14:57 98.0 F 80 20 129/64 88 L 04/26/23 13:37 76 22 104/47 94 L 04/26/23 13:07 04/26/23 12:55 04/26/23 12:54 80 18 136/56 91 L 04/26/23 11:49 18 04/26/23 11:44 98.1 F 79 18 118/65 92 L FiO2 04/27/23 03:10 04/27/23 01:08 04/26/23 23:34 04/26/23 20:00 04/26/23 17:39 40 04/26/23 17:35 40 04/26/23 17:14 04/26/23 17:04 04/26/23 15:35 04/26/23 15:10 04/26/23 15:00 40 04/26/23 14:57 04/26/23 13:37 04/26/23 13:07 40 04/26/23 12:55 40 04/26/23 12:54 04/26/23 11:49 04/26/23 11:44 Intake and Output 04/26/23 04/26/23 04/27/23 14:59 22:59 06:59 Output Total 800 Balance -800 Output: Urine 800 Other: # Voids 1 Weight 102.058 kg GENERAL EXAM: Alert, 77-year-old white male, comfortable in no apparent distress. HEAD: Normocephalic and atraumatic EYES: Normal reaction of pupils, equal size. NOSE: Clear with pink turbinates. THROAT: No erythema or exudates. NECK: No masses, no JVD. CHEST: No chest wall deformity. LUNGS: Equal air entry with bibasilar inspiratory crackles and diminished lung sounds throughout. no significant wheeze, rhonchi. on 4 L/m nasal cannula. No conversational dyspnea or accessory muscle use.. CVS: S1 and S2 normal with no audible murmur, regular rhythm. No extra heart sounds ABDOMEN: No hepatosplenomegaly, active bowel sounds, no guarding or rigidity. SPINE: No scoliosis or deformity SKIN: No rashes CENTRAL NERVOUS SYSTEM: No focal deficits, tone is normal in all 4 extremities. EXTREMITIES: There is no peripheral edema, clubbing, or cyanosis. Peripheral pulses are intact. Results - Laboratory Findings CBC and BMP: 04/26/23 12:00 04/26/23 12:00 PT/INR, D-dimer PT 9.4 sec (10.0-12.5) L 04/26/23 12:00 INR 0.8 (<1.2) 04/26/23 12:00 Abnormal lab findings: Abnormal Labs 04/26/23 04/26/23 04/26/23 11:47 12:00 12:00 RBC 3.59 L Hgb 11.3 L Hct 36.0 L MCV 100.4 H Lymphocytes # 0.7 L PT 9.4 L VBG pH VBG pCO2 VBG HCO3 Chloride Carbon Dioxide BUN Creatinine Glucose POC Glucose (mg/dL) 117 H Magnesium Albumin SARS-CoV-2 (PCR) 04/26/23 04/26/23 04/26/23 12:00 12:00 17:10 RBC Hgb Hct MCV Lymphocytes # PT VBG pH 7.30 L 7.47 H VBG pCO2 92 H* 60 H VBG HCO3 45 H 43 H Chloride 93 L Carbon Dioxide 41 H* BUN 40 H Creatinine 1.36 H Glucose 106 H POC Glucose (mg/dL) Magnesium 2.4 H Albumin 3.4 L SARS-CoV-2 (PCR) 04/26/23 17:10 RBC Hgb Hct MCV Lymphocytes # PT VBG pH VBG pCO2 VBG HCO3 Chloride Carbon Dioxide BUN Creatinine Glucose POC Glucose (mg/dL) Magnesium Albumin SARS-CoV-2 (PCR) Detected A - Diagnostic Findings Chest x-ray: image reviewed Assessment and Plan Assessment: Acute on chronic hypoxemic and hypercapnic respiratory failure, possibly multifactorial related to combination of acute COPD exacerbation and possible underlying congestive heart failure with reduced ejection fraction. Chest x-ray on arrival showed cardiomegaly, mild pulmonary vascular congestion, bilateral interstitial infiltrates, and suspected small bilateral pleural effusions. No obvious focal infiltrates or evidence of focal pneumonia. Acute COVID-19 infection Chronic hypoxic and hypercapnic respiratory failure secondary to severe oxygen dependent chronic obstructive pulmonary disease/emphysema. Most recent PFT demonstrates an FEV1 37% of predicted. Chronic atrial fibrillation, anticoagulated with eliquis. Benign essential hypertension History of obstructive sleep apnea syndrome, with home AVAPS machine Secondary pulmonary hypertension Degenerative joint disease History of kidney cancer in 2006 and previous right nephrectomy History of back melanoma requiring surgery History of detached retina Former tobacco smoker Plan: Patient's medications, labs, chest x-ray reviewed. Continue supplemental oxygen. Patient has been restarted on Ventolin HFA, Spiriva inhaler, and Symbicort inhaler. Also, receiving high-dose IV steroids. Patient did test positive for COVID-19, and has been symptomatic for over a week. No obvious foc al infiltrates. Will check procalcitonin level. Patient is going to ask his to bring in his home AVAPS machine, in the meantime he can use BiPAP at night. No current signs of hypercapnic encephalopathy. NT proBNP only 518. Bumex has been restarted. Eliquis is been restarted. We will continue to follow, and further recommendations are forthcoming I have personally seen and examined the patient, performed the documentation and the assessment and plan as written. Number of minutes spent on the visit:20 Time with Patient: Greater than 30
[2023-04-27] MEDS: methylPREDNISolone SOD SUCCI 40 MG/ML 1 ML VIAL IV SCH ×4 (06:10→23:15)
[2023-04-27 08:12] LABS: Basophils % (A) 0 %; Eosinophils % (A) 0 %; HCT 37.5 % (39.0-53.0); HGB 11.6 gm/dL (13.0-17.5); Hypochromasia Slight; Lymphocytes # (A) 0.4 k/uL (1.0-4.8); Lymphocytes % (A) 4 %; Mean Platelet Volume 7.8; Monocytes # (A) 0.2 k/uL (0-1.0); Monocytes % (A) 2 %; Neutrophils # (A) 8.1 k/uL (1.3-7.7); Neutrophils % (A) 94 %; Platelet Count 206 k/uL (150-450); RBC 3.75 m/uL (4.30-5.90); RDW 13.3 % (11.5-15.5); WBC 8.7 k/uL (3.8-10.6)
[2023-04-27 08:32] LABS: VBG PH 7.41 (7.31-7.41)
[2023-04-27 08:44] LABS: African American GFR (CKD) 69 (>60 ml/min/1.73 sqM); Blood Urea Nitrogen 34 mg/dL (9-20); Calcium 9.3 mg/dL (8.4-10.2); Chloride 89 mmol/L (98-107); Glucose 170 mg/dL (74-99); Magnesium 2.2 mg/dL (1.6-2.3); Non-African American GFR(CKD) 60 (>60 ml/min/1.73 sqM); Phosphorus 3.4 mg/dL (2.5-4.5); Potassium 4.5 mmol/L (3.5-5.1); Sodium 139 mmol/L (137-145)
[2023-04-27 08:50] LABS: Anion Gap 13 mmol/L
[2023-04-27] MEDS: APIXABAN 5 MG TAB PO SCH ×2 (09:11→20:40)
[2023-04-27] MEDS: AMIODARONE 200 MG TAB PO SCH (09:11)
[2023-04-27] MEDS: buPROPion 75 MG TAB PO SCH ×2 (09:11→20:40)
[2023-04-27] MEDS: NON FORMULARY DRUG (Roflumilast [Daliresp] 500 MCG Tablet) PO SCH (09:12)
[2023-04-27] MEDS: FAMOTIDINE 20 MG TAB PO SCH (09:12)
[2023-04-27] MEDS: ESCITALOPRAM 10 MG TAB PO SCH (09:12)
[2023-04-27] MEDS: DIGOXIN 125 MCG TAB PO SCH (09:12)
[2023-04-27] MEDS: BUMETANIDE 1 MG TAB PO SCH ×2 (09:12→20:40)
[2023-04-27 09:14] LABS: Carbon Dioxide 37 mmol/L (22-30)
[2023-04-27] MEDS: ALBUTEROL HFA INHALER INHALATION SCH ×4 (09:36→21:18)
[2023-04-27] MEDS: SYMBICORT 160-4.5 MCG INHALER INHALATION SCH ×2 (09:37→21:18)
[2023-04-27] MEDS: TIOTROPIUM 2.5 MCG INHALER INHALATION SCH (09:43)
--- NOTE | 2023-04-27 13:07 | P.PN ---
Subjective Progress Note Date: 04/27/23 Hospital Course: 77-year-old male with history of chronic hypoxic respiratory failure on 4 L nasal cannula, COPD, hypertension, atrial fibrillation, pulmonary hypertension, mildly reduced systolic function, dyslipidemia presenting with shortness of breath. On presentation,Temperature is 98.1, pulse 79, respiratory rate 18, blood pressure 118/65, saturating at 92% on 3 L, now on BiPAP. WBC never 4, hemoglobin 11.3, pH 7.3, pCO2 92, bicarb 41, creatinine 1.36 slightly above baseline, proBNP 518, troponin 0.026, magnesium 2.4. Chest x-ray independently interpreted, shows interstitial opacities. EKG independently interpreted, shows sinus rhythm with left bundle branch block. Patient admitted for COPD exacerbation. Pulmonology consulted. Patient also found to be COVID-19 pos itive. Currently on IV steroids and bronchodilators. Subjective: Patient seen and examined at bedside. No acute events overnight. Respiratory function improving. Pertinent positives and negatives as discussed above, a complete review of systems was performed and all other systems are negative. Vitals Signs Reviewed. General: nontoxic, no distress, appears at stated age, obese Derm: warm, dry Head: atraumatic, normocephalic, symmetric Eyes: EOMI, no lid lag, anicteric sclera Mouth: no lip lesion, mucus membranes moist Cardiovascular: S1S2 reg, no murmur Lungs: Bibasilar rales , scattered diabetes no accessory muscle use, supplemental oxygen Abdominal: soft, nontender to palpation, no guarding, no appreciable organomegaly Ext: no gross muscle atrophy, no edema, no contractures Neuro: CN II-XI grossly intact, no focal neuro deficits Psych: Alert, oriented, appropriate affect Data Reviewed Today: Pertinent Labs: WBC 8.7, hemoglobin 11.6, pH 7.41, pCO2 66, potassium 4.5, bic arbonate 37, creatinine 1.17, pro calcitonin 0.79 Imaging: No new imaging Assessment and Plan: Patient is critically ill, prognosis guarded. Active: Acute COPD exacerbation Acute on chronic hypoxic and hypercapnic respiratory failure, resolving Respiratory acidosis, resolving Acute COVID-19 infection -IV Solu-Medrol increased to 60 mg every 6 hours, monitor mentation closely -albuterol PRN and 4 times a day, Symbicort BID, Spiriva Daily -Pulmonology note reviewed, will bring his AVAPs Acute on chronic anemia -No significant change from baseline -No active bleeding Chronic: Paroxysmal atrial fibrillation Hypertension Pulmonary hypertension Mildly reduced systolic function, not in exacerbation Dyslipidemia DVT ppx: Eliquis Code status: FC Anticipated discharge place: Home Anticipated discharge time: 1-2 days Objective - Vital Signs Vital signs: Vital Signs Temp 98.0 F 04/27/23 11:28 Pulse 79 04/27/23 11:28 Resp 20 04/27/23 11:28 BP 118/57 04/27/23 11:28 Pulse Ox 92 L 04/27/23 11:28 FiO2 40 04/26/23 17:39 Intake & Output 04/26/23 04/27/23 04/27/23 18:59 06:59 18:59 Intake Total 180 Output Total 800 Balance -800 180 Weight 102.058 kg Intake: Oral 180 Output: Urine 800 Other: Voiding Method Urinal # Voids 1 - Labs CBC & Chem 7: 04/27/23 07:43 04/27/23 07:43 Labs: Abnormal Lab Results - Last 24 Hours (Table) 04/26/23 04/26/23 04/27/23 Range/Units 17:10 17:10 00:30 RBC (4.30-5.90) m/uL Hgb (13.0-17.5) gm/dL Hct (39.0-53.0) % Neutrophils # (1.3-7.7) k/uL Lymphocytes # (1.0-4.8) k/uL VBG pH 7.47 H (7.31-7.41) VBG pCO2 60 H (37-51) mmHg VBG HCO3 43 H (24-28) mmol/L Chloride (98-107) mmol/L Carbon Dioxide (22-30) mmol/L BUN (9-20) mg/dL Glucose (74-99) mg/dL Procalcitonin 0.79 H (0.02-0.09) ng/mL SARS-CoV-2 (PCR) Detected A (Not Detectd) 04/27/23 04/27/23 04/27/23 Range/Units 07:43 07:43 07:43 RBC 3.75 L (4.30-5.90) m/uL Hgb 11.6 L (13.0-17.5) gm/dL Hct 37.5 L (39.0-53.0) % Neutrophils # 8.1 H (1.3-7.7) k/uL Lymphocytes # 0.4 L (1.0-4.8) k/uL VBG pH (7.31-7.41) VBG pCO2 66 H (37-51) mmHg VBG HCO3 42 H (24-28) mmol/L Chloride 89 L (98-107) mmol/L Carbon Dioxide 37 H (22-30) mmol/L BUN 34 H (9-20) mg/dL Glucose 170 H (74-99) mg/dL Procalcitonin (0.02-0.09) ng/mL SARS-CoV-2 (PCR) (Not Detectd)
[2023-04-28] MEDS: methylPREDNISolone SOD SUCCI 40 MG/ML 1 ML VIAL IV SCH ×4 (05:23→23:37)
[2023-04-28 08:16] LABS: Basophils % (A) 0 %; Eosinophils % (A) 0 %; HGB 10.9 gm/dL (13.0-17.5); Hypochromasia Slight; Lymphocytes # (A) 0.6 k/uL (1.0-4.8); Lymphocytes % (A) 3 %; MCH 29.8 pg (25.0-35.0); MCHC 30.4 g/dL (31.0-37.0); MCV 97.9 fL (80.0-100.0); Monocytes # (A) 0.5 k/uL (0-1.0); Monocytes % (A) 3 %; Neutrophils # (A) 17.1 k/uL (1.3-7.7); Neutrophils % (A) 93 %; Platelet Count 223 k/uL (150-450); RBC 3.67 m/uL (4.30-5.90); RDW 13.3 % (11.5-15.5); WBC 18.3 k/uL (3.8-10.6)
[2023-04-28 08:29] LABS: African American GFR (CKD) 65 (>60 ml/min/1.73 sqM); Blood Urea Nitrogen 38 mg/dL (9-20); Calcium 9.4 mg/dL (8.4-10.2); Chloride 88 mmol/L (98-107); Glucose 132 mg/dL (74-99); Magnesium 2.2 mg/dL (1.6-2.3); Non-African American GFR(CKD) 57 (>60 ml/min/1.73 sqM); Potassium 4.2 mmol/L (3.5-5.1); Sodium 135 mmol/L (137-145)
[2023-04-28 08:37] LABS: Anion Gap 9 mmol/L; Carbon Dioxide 38 mmol/L (22-30)
[2023-04-28] MEDS: ALBUTEROL HFA INHALER INHALATION SCH ×4 (09:09→21:34)
[2023-04-28] MEDS: SYMBICORT 160-4.5 MCG INHALER INHALATION SCH ×2 (09:09→21:34)
[2023-04-28] MEDS: TIOTROPIUM 2.5 MCG INHALER INHALATION SCH (09:09)
[2023-04-28] MEDS: BUMETANIDE 1 MG TAB PO SCH ×2 (09:41→20:20)
[2023-04-28] MEDS: APIXABAN 5 MG TAB PO SCH ×2 (09:41→20:20)
[2023-04-28] MEDS: ESCITALOPRAM 10 MG TAB PO SCH (09:41)
[2023-04-28] MEDS: buPROPion 75 MG TAB PO SCH ×2 (09:41→20:20)
[2023-04-28] MEDS: FAMOTIDINE 20 MG TAB PO SCH (09:41)
[2023-04-28] MEDS: DIGOXIN 125 MCG TAB PO SCH (09:41)
[2023-04-28] MEDS: AMIODARONE 200 MG TAB PO SCH (09:41)
[2023-04-28] MEDS: NON FORMULARY DRUG (Roflumilast [Daliresp] 500 MCG Tablet) PO SCH (09:42)
--- NOTE | 2023-04-28 13:04 | P.PN ---
Subjective Progress Note Date: 04/28/23 Principal diagnosis: Hypercapnic respiratory failure. I am seeing this patient in consultation today 04/27/2023 after he was not acting himself while at home, he does have advanced COPD. He was positive for COVID-19 on arrival. Patient is a 77-year-old white male with past medical history significant for severe COPD, atrial fibrillation, hyperlipidemia, hypertension, renal cancer with previous right nephrectomy, macular degeneration, among other things. Patient does follow in the pulmonary office with Dr. Ware for management of his severe COPD/emphysema. He did have a recent office visit a little over one week ago. Recent PFT demonstrates a FEV1 37% of predicted. He is oxygen dependent while at home on 2 L nasal cannula. He is reportedly supposed to wear a AVAPS machine at night. Patient is currently lying in bed, on 4 L/m nasal cannula, in no acute distress. Apparently, he was noticed to be acting "off" while at home by his . He was confused and weak. Earlier in the week, he had URI-like symptoms such as runny nose, cough. He is now more short of breath than normal. Denies any fevers, chest pain, hemoptysis. Denies any heart palpitations, syncope, lower extremity edema. His had similar URI symptoms earlier in the week. VBG on arrival was consistent with hypercapnic respiratory failure. Patient was initially placed on BiPAP with settings 14/6 and FiO2 40%. He is currently alert and oriented, no signs of hypercapnia. He did test positive for COVID-19. Chest x-ray on arrival showed some cardiomegaly, pulmonary vascular congestion, and bilateral pleural effusions. No obvious evidence of pneumonia. CBC shows WBC count of 9.4, hemoglobin 11.3, hematocrit 36, platelets 182. CMP on arrival shows a sodium 142, potassium 4.3, chloride 93, serum bicarb 41, BUN 40, creatinine 1.36, glucose 106. Troponin 0.026. NT proBNP 518. ECG currently demonstrates normal sinus rhythm with a right bundle branch block. Afebrile. Patient a ppears hemodynamically stable. Progress note dated 04/28/2023. 77-year-old male who was seen yesterday in consultation. I see him in the office for his severe COPD, and chronic hypoxemic and hypercapnic respiratory failure. The patient continues on oxygen at 4 L. He did test positive for coronavirus infection. He's not receiving any IV fluids. He did bring his AVAPS machine into the hospital. Currently, he is feeling better. Labs are reviewed and include a white count of 18.3, hemoglobin 10.9, hematocrit 36, platelet count 223,000. Sodium 135, potassium 4.2, chlorides 88, CO2 38, BUN 38, and the creatinine is 1.23. Glucose is 132. Objective - Vital Signs Vital signs: Vital Signs Temp 98 F 04/28/23 09:30 Pulse 77 04/28/23 09:30 Resp 18 04/28/23 09:30 BP 121/63 04/28/23 09:30 Pulse Ox 93 L 04/28/23 09:30 FiO2 40 04/26/23 17:39 Intake & Output 04/27/23 04/28/23 04/28/23 18:59 06:59 18:59 Intake Total 360 120 Balance 360 120 Intake: Oral 360 120 Other: Voiding Method Urinal # Voids 4 1 # Bowel Movements 1 - Exam No acute distress, oriented 3. Currently on 4 L. Much more awake and alert. HEENT examination is grossly unremarkable. Mucous membranes are moist. No oral lesions. Neck supple. Full range of motion. No adenopathy thyromegaly or neck vein distention. Cardiovascular examination reveals regular rhythm rate. S1-S2 normal. No S3 or S4. No discernible murmur noted. Heart sounds are distant. Heart rate 77 bpm. Lungs reveal mostly clear breath sounds. Scattered rhonchi are noted. No wheezes or crackles. Breath sounds are equal bilaterally but diminished throughout. 4 L saturation is 93%. Abdomen soft bowel sounds are heard. No masses or tenderness. Extremities are intact. No cyanosis clubbing or edema. Skin is without rash or lesion. Neurologic examination is brief but nonfocal. - Labs CBC & Chem 7: 04/28/23 07:24 04/28/23 07:24 Labs: Abnormal Lab Results - Last 24 Hours (Table) 04/28/23 04/28/23 Range/Units 07:24 07:24 WBC 18.3 H (3.8-10.6) k/uL RBC 3.67 L (4.30-5.90) m/uL Hgb 10.9 L (13.0-17.5) gm/dL Hct 36.0 L (39.0-53.0) % MCHC 30.4 L (31.0-37.0) g/dL Neutrophils # 17.1 H (1.3-7.7) k/uL Lymphocytes # 0.6 L (1.0-4.8) k/uL Sodium 135 L (137-145) mmol/L Chloride 88 L (98-107) mmol/L Carbon Dioxide 38 H (22-30) mmol/L BUN 38 H (9-20) mg/dL Glucose 132 H (74-99) mg/dL Assessment and Plan Assessment: Acute on chronic hypoxemic and hypercapnic respiratory failure, possibly multifactorial related to combination of acute COPD exacerbation and possible underlying congestive heart failure with reduced ejection fraction. Chest x-ray on arrival showed cardiomegaly, mild pulmonary vascular congestion, bilateral interstitial infiltrates, and suspected small bilateral pleural effusions. No obvious focal infiltrates or evidence of focal pneumonia. Acute COVID-19 infection. Chronic hypoxic and hypercapnic respiratory failure secondary to severe oxygen dependent chronic obstructive pulmonary disease/emphysema. Most recent PFT demonstrates an FEV1 37% of predicted. Chronic atrial fibrillation. Benign essential hypertension. History of obstructive sleep apnea syndrome, with home AVAPS machine. Secondary pulmonary hypertension. Degenerative joint disease. History of kidney cancer in 2006 and previous right nephrectomy. History of back melanoma. History of detached retina. Ongoing tobacco use with nicotine addiction. Plan: Plan dated 04/28/2023. The patient is seen today in room 352. He continues on oxygen at 4 L by nasal cannula. He did test positive for coronavirus. His home AVAPS machine is at the bedside. Labs, x-rays, and medications are reviewed. We will continue to follow the patient, and make recommendations along the way. We counseled about the importance of smoking cessation. Prognosis is guarded. Time with Patient: Less than 30
--- NOTE | 2023-04-28 14:41 | P.PN ---
Subjective Progress Note Date: 04/28/23 Hospital Course: 77-year-old male with history of chronic hypoxic respiratory failure on 4 L na bradley cannula, COPD, hypertension, atrial fibrillation, pulmonary hypertension, mildly reduced systolic function, dyslipidemia presenting with shortness of breath. On presentation,Temperature is 98.1, pulse 79, respiratory rate 18, blood pressure 118/65, saturating at 92% on 3 L, now on BiPAP. WBC never 4, hemoglobin 11.3, pH 7.3, pCO2 92, bicarb 41, creatinine 1.36 slightly above baseline, proBNP 518, troponin 0.026, magnesium 2.4. Chest x-ray independently interpreted, shows interstitial opacities. EKG independently interpreted, shows sinus rhythm with left bundle branch block. Patient admitted for COPD exacerbation. Pulmonology consulted. Patient also found to be COVID-19 positive. Currently on IV steroids and bronchodilators. Subjective: Patient seen and examined at bedside. No acute events overnight. He was not using his AVAPs overnight. Pertinent positives and negatives as discussed above, a complete review of systems was performed and all other systems are negative. Vitals Signs Reviewed. General: nontoxic, no distress, appears at stated age, obese Derm: warm, dry Head: atraumatic, normocephalic, symmetric Eyes: EOMI, no lid lag, anicteric sclera Mouth: no lip lesion, mucus membranes moist Cardiovascular: S1S2 reg, no murmur Lungs: Bibasilar rales , scattered diabetes no accessory muscle use, supplemental oxygen Abdominal: soft, nontender to palpation, no guarding, no appreciable organomegaly Ext: no gross muscle atrophy, no edema, no contractures Neuro: CN II-XI grossly intact, no focal neuro deficits Psych: Alert, oriented, appropriate affect Data Reviewed Today: Pertinent Labs: WBC 18.3, hemoglobin 10.9, creatinine 1.23 Imaging: No new imaging Assessment and Plan: Patient is critically ill, prognosis guarded. Active: Acute COPD exacerbation Acute on chronic hypoxic and hypercapnic respiratory failure, resolving Respiratory acidosis, resolving Acute COVID-19 infection Leukocytosis, likely steroid-induced -IV Solu-Medrol increased to 60 mg every 6 hours, monitor mentation closely -albuterol PRN and 4 times a day, Symbicort BID, Spiriva Daily -Pulmonology note reviewed, continue current therapy -Counseled regarding use of AVAPS at night Acute on chronic anemia -Repeat CBC -No active bleeding Chronic: Paroxysmal atrial fibrillation Hypertension Pulmonary hypertension Mildly reduced systolic function, not in exacerbation Dyslipidemia DVT ppx: Eliquis Code status: FC Anticipated discharge place: Home Anticipated discharge time: 1-2 days Objective - Vital Signs Vital signs: Vital Signs Temp 98 F 04/28/23 09:30 Pulse 77 04/28/23 09:30 Resp 18 04/28/23 09:30 BP 121/63 04/28/23 09:30 Pulse Ox 93 L 04/28/23 09:30 FiO2 40 04/26/23 17:39 Intake & Output 04/27/23 04/28/23 04/28/23 18:59 06:59 18:59 Intake Total 360 120 Balance 360 120 Intake: Oral 360 120 Other: Voiding Method Urinal # Voids 4 1 # Bowel Movements 1 - Labs CBC & Chem 7: 04/28/23 07:24 04/28/23 07:24 Labs: Abnormal Lab Results - Last 24 Hours (Table) 04/28/23 04/28/23 Range/Units 07:24 07:24 WBC 18.3 H (3.8-10.6) k/uL RBC 3.67 L (4.30-5.90) m/uL Hgb 10.9 L (13.0-17.5) gm/dL Hct 36.0 L (39.0-53.0) % MCHC 30.4 L (31.0-37.0) g/dL Neutrophils # 17.1 H (1.3-7.7) k/uL Lymphocytes # 0.6 L (1.0-4.8) k/uL Sodium 135 L (137-145) mmol/L Chloride 88 L (98-107) mmol/L Carbon Dioxide 38 H (22-30) mmol/L BUN 38 H (9-20) mg/dL Glucose 132 H (74-99) mg/dL
[2023-04-29] MEDS: methylPREDNISolone SOD SUCCI 40 MG/ML 1 ML VIAL IV SCH ×4 (06:04→23:36)
[2023-04-29] MEDS: TIOTROPIUM 2.5 MCG INHALER INHALATION SCH (08:57)
[2023-04-29] MEDS: SYMBICORT 160-4.5 MCG INHALER INHALATION SCH ×2 (08:57→21:32)
[2023-04-29] MEDS: ALBUTEROL HFA INHALER INHALATION SCH ×4 (08:57→21:31)
[2023-04-29] MEDS: buPROPion 75 MG TAB PO SCH ×2 (09:32→20:32)
[2023-04-29] MEDS: DIGOXIN 125 MCG TAB PO SCH (09:32)
[2023-04-29] MEDS: AMIODARONE 200 MG TAB PO SCH (09:32)
[2023-04-29] MEDS: ESCITALOPRAM 10 MG TAB PO SCH (09:32)
[2023-04-29] MEDS: BUMETANIDE 1 MG TAB PO SCH ×2 (09:32→20:32)
[2023-04-29] MEDS: APIXABAN 5 MG TAB PO SCH ×2 (09:33→20:33)
[2023-04-29] MEDS: FAMOTIDINE 20 MG TAB PO SCH (09:33)
[2023-04-29] MEDS: NON FORMULARY DRUG (Roflumilast [Daliresp] 500 MCG Tablet) PO SCH (09:34)
[2023-04-29 09:43] LABS: Basophils % (A) 0 %; Eosinophils % (A) 0 %; HCT 36.6 % (39.0-53.0); HGB 11.4 gm/dL (13.0-17.5); Hypochromasia Slight; Lymphocytes # (A) 0.5 k/uL (1.0-4.8); Lymphocytes % (A) 3 %; MCH 30.9 pg (25.0-35.0); MCHC 31.2 g/dL (31.0-37.0); MCV 98.9 fL (80.0-100.0); Mean Platelet Volume 7.6; Monocytes # (A) 0.6 k/uL (0-1.0); Monocytes % (A) 3 %; Neutrophils # (A) 15.2 k/uL (1.3-7.7); Neutrophils % (A) 93 %; Platelet Count 252 k/uL (150-450); RBC 3.71 m/uL (4.30-5.90); RDW 13.1 % (11.5-15.5); WBC 16.4 k/uL (3.8-10.6)
[2023-04-29 09:57] LABS: African American GFR (CKD) 50 (>60 ml/min/1.73 sqM); Blood Urea Nitrogen 51 mg/dL (9-20); Chloride 89 mmol/L (98-107); Glucose 195 mg/dL (74-99); Non-African American GFR(CKD) 43 (>60 ml/min/1.73 sqM); Potassium 4.2 mmol/L (3.5-5.1); Sodium 140 mmol/L (137-145)
[2023-04-29 10:04] LABS: Anion Gap 12 mmol/L; Carbon Dioxide 39 mmol/L (22-30)
--- NOTE | 2023-04-29 13:05 | P.PN ---
Subjective Progress Note Date: 04/29/23 Principal diagnosis: Hypercapnic respiratory failure. I am seeing this patient in consultation today 04/27/2023 after he was not acting himself while at home, he does have advanced COPD. He was positive for COVID-19 on arrival. Patient is a 77-year-old white male with past medical history significant for severe COPD, atrial fibrillation, hyperlipidemia, hypertension, renal cancer with previous right nephrectomy, macular degeneration, among other things. Patient does follow in the pulmonary office with Dr. Ware for management of his severe COPD/emphysema. He did have a recent office visit a little over one week ago. Recent PFT demonstrates a FEV1 37% of predicted. He is oxygen dependent while at home on 2 L nasal cannula. He is reportedly supposed to wear a AVAPS machine at night. Patient is currently lying in bed, on 4 L/m nasal cannula, in no acute distress. Apparently, he was noticed to be acting "off" while at home by his . He was confused and weak. Earlier in the week, he had URI-like symptoms such as runny nose, cough. He is now more short of breath than normal. Denies any fevers, chest pain, hemoptysis. Denies any heart palpitations, syncope, lower extremity edema. His had similar URI symptoms earlier in the week. VBG on arrival was consistent with hypercapnic respiratory failure. Patient was initially placed on BiPAP with settings 14/6 and FiO2 40%. He is currently alert and oriented, no signs of hypercapnia. He did test positive for COVID-19. Chest x-ray on arrival showed some cardiomegaly, pulmonary vascular congestion, and bilateral pleural effusions. No obvious evidence of pneumonia. CBC shows WBC count of 9.4, hemoglobin 11.3, hematocrit 36, platelets 182. CMP on arrival shows a sodium 142, potassium 4.3, chloride 93, serum bicarb 41, BUN 40, creatinine 1.36, glucose 106. Troponin 0.026. NT proBNP 518. ECG currently demonstrates normal sinus rhythm with a right bundle branch block. Afebrile. Patient a ppears hemodynamically stable. Progress note dated 04/28/2023. 77-year-old male who was seen yesterday in consultation. I see him in the office for his severe COPD, and chronic hypoxemic and hypercapnic respiratory failure. The patient continues on oxygen at 4 L. He did test positive for coronavirus infection. He's not receiving any IV fluids. He did bring his AVAPS machine into the hospital. Currently, he is feeling better. Labs are reviewed and include a white count of 18.3, hemoglobin 10.9, hematocrit 36, platelet count 223,000. Sodium 135, potassium 4.2, chlorides 88, CO2 38, BUN 38, and the creatinine is 1.23. Glucose is 132. Progress note dated 04/29/2023. This is a 77-year-old male who was admitted with diagnosis of respiratory failure. His respiratory failure was caused by both hypoxemia and hypercapnia. The patient does have a history of severe oxygen-dependent COPD. He is resting comfortably today in room 352. He's on 4 L by nasal cannula. He's not receiving any IV fluids. White count of 16.4, hemoglobin 11.4, hematocrit 36.6, platelet count 252,000. Sodium is 140, potassium 4.2, chlorides 99, CO2 39, BUN 51, creatinine 1.53. Calcium is 9. Objective - Vital Signs Vital signs: Vital Signs Temp 97.6 F 04/29/23 09:36 Pulse 72 04/29/23 12:07 Resp 16 04/29/23 12:07 BP 139/66 04/29/23 12:07 Pulse Ox 95 04/29/23 12:07 FiO2 40 04/26/23 17:39 Intake & Output 04/28/23 04/29/23 04/29/23 18:59 06:59 18:59 Intake Total 360 540 490 Balance 360 540 490 Intake: IV 10 Invasive Line 1 10 Oral 360 540 480 Other: Voiding Method Urinal Urinal # Voids 1 # Bowel Movements 0 - Exam No acute distress, oriented 3. Currently on 4 L. Much more awake and alert. HEENT examination is grossly unremarkable. Mucous membranes are moist. No oral lesions. Neck supple. Full range of motion. No adenopathy thyromegaly or neck vein distention. Cardiovascular examination reveals regular rhythm rate. S1-S2 normal. No S3 or S4. No discernible murmur noted. Heart sounds are distant. Heart rate 72 bpm. Lungs reveal mostly clear breath sounds. Scattered rhonchi are noted. No wheezes or crackles. Breath sounds are equal bilaterally but diminished through out. 4 L saturation is 95 %. Abdomen soft bowel sounds are heard. No masses or tenderness. Extremities are intact. No cyanosis clubbing or edema. Skin is without rash or lesion. Neurologic examination is brief but nonfocal. - Labs CBC & Chem 7: 04/29/23 08:54 04/29/23 08:54 Labs: Abnormal Lab Results - Last 24 Hours (Table) 04/29/23 04/29/23 Range/Units 08:54 08:54 WBC 16.4 H (3.8-10.6) k/uL RBC 3.71 L (4.30-5.90) m/uL Hgb 11.4 L (13.0-17.5) gm/dL Hct 36.6 L (39.0-53.0) % Neutrophils # 15.2 H (1.3-7.7) k/uL Lymphocytes # 0.5 L (1.0-4.8) k/uL Chloride 89 L (98-107) mmol/L Carbon Dioxide 39 H (22-30) mmol/L BUN 51 H (9-20) mg/dL Creatinine 1.53 H (0.66-1.25) mg/dL Glucose 195 H (74-99) mg/dL Assessment and Plan Assessment: Acute on chronic hypoxemic and hypercapnic respiratory failure, possibly multifactorial related to combination of acute COPD exacerbation and possible underlying congestive heart failure with reduced ejection fraction. Chest x-ray on arrival showed cardiomegaly, mild pulmonary vascular congestion, bilateral interstitial infiltrates, and suspected small bilateral pleural effusions. No obvious focal infiltrates or evidence of focal pneumonia. Acute COVID-19 infection. Chronic hypoxic and hypercapnic respiratory failure secondary to severe oxygen dependent chronic obstructive pulmonary disease/emphysema. Most recent PFT demonstrates an FEV1 37% of predicted. Chronic atrial fibrillation. Benign essential hypertension. History of obstructive sleep apnea syndrome, with home AVAPS machine. Secondary pulmonary hypertension. Degenerative joint disease. History of kidney cancer in 2006 and previous right nephrectomy. History of back melanoma. History of detached retina. Ongoing tobacco use with nicotine addiction. Plan: Plan dated 04/28/2023. The patient is seen today in room 352. He continues on oxygen at 4 L by nasal cannula. He did test positive for coronavirus. His home AVAPS machine is at the bedside. Labs, x-rays, and medications are reviewed. We will continue to follow the patient, and make recommendations along the way. We counseled about the importance of smoking cessation. Prognosis is guarded. Plan dated 04/29/2023. The patient continues to make good progress. He is seen today in room 352. He continues on oxygen at 4 L. The patient did test positive for coronavirus. Labs, x-rays, and medications are reviewed. We will continue to follow the patient, and make recommendations along the way. His overall prognosis remains guarded. Unfortunately, the patient does continue to smoke cigarettes. He uses his home portable ventilator, at nighttime, when he sleeps. Time with Patient: Less than 30
--- NOTE | 2023-04-29 13:51 | P.PN ---
Subjective Progress Note Date: 04/29/23 Hospital Course: 77-year-old male with history of chronic hypoxic respiratory failure on 4 L nasal cannula, COPD, hypertension, atrial fibrillation, pulmonary hypertension, mildly reduced systolic function, dyslipidemia presenting with shortness of breath. On presentation,Temperature is 98.1, pulse 79, respiratory rate 18, blood pressure 118/65, saturating at 92% on 3 L, now on BiPAP. WBC never 4, hemoglobin 11.3, pH 7.3, pCO2 92, bicarb 41, creatinine 1.36 slightly above baseline, proBNP 518, troponin 0.026, magnesium 2.4. Chest x-ray independently interpreted, shows interstitial opacities. EKG independently interpreted, shows sinus rhythm with left bundle branch block. Patient admitted for COPD exacerbation. Pulmonology consulted. Patient also found to be COVID-19 pos itive. Currently on IV steroids and bronchodilators. Subjective: Patient seen and examined at bedside. No acute events overnight. Still having significant cough and shortness of breath, as well as feels restless. Pertinent positives and negatives as discussed above, a complete review of syste ms was performed and all other systems are negative. Vitals Signs Reviewed. General: nontoxic, no distress, appears at stated age, obese Derm: warm, dry Head: atraumatic, normocephalic, symmetric Eyes: EOMI, no lid lag, anicteric sclera Mouth: no lip lesion, mucus membranes moist Cardiovascular: S1S2 reg, no murmur Lungs: Bibasilar rales , scattered diabetes no accessory muscle use, supplement al oxygen Abdominal: soft, nontender to palpation, no guarding, no appreciable organomegaly Ext: no gross muscle atrophy, no edema, no contractures Neuro: CN II-XI grossly intact, no focal neuro deficits Psych: Alert, oriented, appropriate affect Data Reviewed Today: Pertinent Labs: WBC 16.4, hemoglobin 11.4, sodium 140, creatinine 1.53 Imaging: No new imaging Assessment and Plan: Patient is critically ill, prognosis guarded. Active: Acute COPD exacerbation Acute on chronic hypoxic and hypercapnic respiratory failure, resolving Respiratory acidosis, resolving Acute COVID-19 infection Leukocytosis, likely steroid-induced -IV Solu-Medrol increased to 60 mg every 6 hours, monitor mentation closely -albuterol PRN and 4 times a day, Symbicort BID, Spiriva Daily -Pulmonology note reviewed, continue current therapy -Counseled regarding use of AVAPS at night -Repeat CBC and BMP tomorrow -Creatinine slightly worsening, if continues to worsen, we'll hold Bumex Acute on chronic anemia, improving -No active bleeding Chronic: Paroxysmal atrial fibrillation Hypertension Pulmonary hypertension Mildly reduced systolic function, not in exacerbation Dyslipidemia DVT ppx: Eliquis Code status: FC Anticipated discharge place: Home Anticipated discharge time: 1-2 days Objective - Vital Signs Vital signs: Vital Signs Temp 97.6 F 04/29/23 09:36 Pulse 72 04/29/23 12:07 Resp 16 04/29/23 12:07 BP 139/66 04/29/23 12:07 Pulse Ox 95 04/29/23 12:07 FiO2 40 04/26/23 17:39 Intake & Output 04/28/23 04/29/23 04/29/23 18:59 06:59 18:59 Intake Total 360 540 490 Balance 360 540 490 Intake: IV 10 Invasive Line 1 10 Oral 360 540 480 Other: Voiding Method Urinal Urinal # Voids 1 # Bowel Movements 0 - Labs CBC & Chem 7: 04/29/23 08:54 04/29/23 08:54 Labs: Abnormal Lab Results - Last 24 Hours (Table) 04/29/23 04/29/23 Range/Units 08:54 08:54 WBC 16.4 H (3.8-10.6) k/uL RBC 3.71 L (4.30-5.90) m/uL Hgb 11.4 L (13.0-17.5) gm/dL Hct 36.6 L (39.0-53.0) % Neutrophils # 15.2 H (1.3-7.7) k/uL Lymphocytes # 0.5 L (1.0-4.8) k/uL Chloride 89 L (98-107) mmol/L Carbon Dioxide 39 H (22-30) mmol/L BUN 51 H (9-20) mg/dL Creatinine 1.53 H (0.66-1.25) mg/dL Glucose 195 H (74-99) mg/dL
[2023-04-29 16:15] VITALS: RESP 18
[2023-04-29 21:31] VITALS: TEMP 97.9
[2023-04-30] MEDS: methylPREDNISolone SOD SUCCI 40 MG/ML 1 ML VIAL IV SCH ×2 (05:59→12:28)
[2023-04-30] MEDS: SYMBICORT 160-4.5 MCG INHALER INHALATION SCH (07:55)
[2023-04-30] MEDS: ALBUTEROL HFA INHALER INHALATION SCH ×2 (07:55→11:42)
[2023-04-30] MEDS: TIOTROPIUM 2.5 MCG INHALER INHALATION SCH (07:56)
[2023-04-30 09:20] LABS: Basophils % (A) 0 %; Eosinophils % (A) 0 %; HCT 37.3 % (39.0-53.0); HGB 11.8 gm/dL (13.0-17.5); Hypochromasia Slight; Lymphocytes # (A) 0.5 k/uL (1.0-4.8); Lymphocytes % (A) 4 %; MCH 31.2 pg (25.0-35.0); MCHC 31.7 g/dL (31.0-37.0); MCV 98.2 fL (80.0-100.0); Mean Platelet Volume 7.9; Monocytes # (A) 0.5 k/uL (0-1.0); Monocytes % (A) 4 %; Neutrophils % (A) 92 %; Platelet Count 252 k/uL (150-450); RBC 3.79 m/uL (4.30-5.90); RDW 13.6 % (11.5-15.5); WBC 14.1 k/uL (3.8-10.6)
[2023-04-30] MEDS: ESCITALOPRAM 10 MG TAB PO SCH (09:21)
[2023-04-30] MEDS: BUMETANIDE 1 MG TAB PO SCH (09:21)
[2023-04-30] MEDS: APIXABAN 5 MG TAB PO SCH (09:21)
[2023-04-30] MEDS: buPROPion 75 MG TAB PO SCH (09:21)
[2023-04-30] MEDS: AMIODARONE 200 MG TAB PO SCH (09:21)
[2023-04-30] MEDS: FAMOTIDINE 20 MG TAB PO SCH (09:21)
[2023-04-30] MEDS: DIGOXIN 125 MCG TAB PO SCH (09:21)
[2023-04-30 09:42] LABS: African American GFR (CKD) 61 (>60 ml/min/1.73 sqM); Blood Urea Nitrogen 46 mg/dL (9-20); Calcium 8.9 mg/dL (8.4-10.2); Chloride 88 mmol/L (98-107); Glucose 155 mg/dL (74-99); Non-African American GFR(CKD) 52 (>60 ml/min/1.73 sqM); Potassium 3.9 mmol/L (3.5-5.1); Sodium 135 mmol/L (137-145)
[2023-04-30 09:49] LABS: Anion Gap 12 mmol/L
[2023-04-30] MEDS: NON FORMULARY DRUG (Roflumilast [Daliresp] 500 MCG Tablet) PO SCH (10:18)
[2023-04-30 10:30] LABS: Carbon Dioxide 35 mmol/L (22-30)
--- NOTE | 2023-04-30 11:47 | P.PN ---
Subjective Progress Note Date: 04/30/23 Principal diagnosis: Hypercapnic respiratory failure. I am seeing this patient in consultation today 04/27/2023 after he was not acting himself while at home, he does have advanced COPD. He was positive for COVID-19 on arrival. Patient is a 77-year-old white male with past medical history significant for severe COPD, atrial fibrillation, hyperlipidemia, hypertension, renal cancer with previous right nephrectomy, macular degeneration, among other things. Patient does follow in the pulmonary office with Dr. Ware for management of his severe COPD/emphysema. He did have a recent office visit a little over one week ago. Recent PFT demonstrates a FEV1 37% of predicted. He is oxygen dependent while at home on 2 L nasal cannula. He is reportedly supposed to wear a AVAPS machine at night. Patient is currently lying in bed, on 4 L/m nasal cannula, in no acute distress. Apparently, he was noticed to be acting "off" while at home by his . He was confused and weak. Earlier in the week, he had URI-like symptoms such as runny nose, cough. He is now more short of breath than normal. Denies any fevers, chest pain, hemoptysis. Denies any heart palpitations, syncope, lower extremity edema. His had similar URI symptoms earlier in the week. VBG on arrival was consistent with hypercapnic respiratory failure. Patient was initially placed on BiPAP with settings 14/6 and FiO2 40%. He is currently alert and oriented, no signs of hypercapnia. He did test positive for COVID-19. Chest x-ray on arrival showed some cardiomegaly, pulmonary vascular congestion, and bilateral pleural effusions. No obvious evidence of pneumonia. CBC shows WBC count of 9.4, hemoglobin 11.3, hematocrit 36, platelets 182. CMP on arrival shows a sodium 142, potassium 4.3, chloride 93, serum bicarb 41, BUN 40, creatinine 1.36, glucose 106. Troponin 0.026. NT proBNP 518. ECG currently demonstrates normal sinus rhythm with a right bundle branch block. Afebrile. Patient a ppears hemodynamically stable. Progress note dated 04/28/2023. 77-year-old male who was seen yesterday in consultation. I see him in the office for his severe COPD, and chronic hypoxemic and hypercapnic respiratory failure. The patient continues on oxygen at 4 L. He did test positive for coronavirus infection. He's not receiving any IV fluids. He did bring his AVAPS machine into the hospital. Currently, he is feeling better. Labs are reviewed and include a white count of 18.3, hemoglobin 10.9, hematocrit 36, platelet count 223,000. Sodium 135, potassium 4.2, chlorides 88, CO2 38, BUN 38, and the creatinine is 1.23. Glucose is 132. Progress note dated 04/29/2023. This is a 77-year-old male who was admitted with diagnosis of respiratory failure. His respiratory failure was caused by both hypoxemia and hypercapnia. The patient does have a history of severe oxygen-dependent COPD. He is resting comfortably today in room 352. He's on 4 L by nasal cannula. He's not receiving any IV fluids. White count of 16.4, hemoglobin 11.4, hematocrit 36.6, platelet count 252,000. Sodium is 140, potassium 4.2, chlorides 99, CO2 39, BUN 51, creatinine 1.53. Calcium is 9. Progress note dated 04/30/2023. 77-year-old male admitted with a diagnosis of respiratory failure. The patient has both hypoxemic and hypercapnic respiratory failure he does suffer from severe oxygen-dependent COPD. Currently, the patient is seen today in room 352. The patient continues on oxygen at 4 L. Laboratory data includes a white count of 14.1, hemoglobin 11.8, hematocrit 37.3, and a platelet count of 252,000. Sodium 135, potassium 3.9, chlorides 88, CO2 35, anion gap 12, BUN 46, and creatinine 1.31. Glucose 155. Pro-calcitonin level was 0.79. Objective - Vital Signs Vital signs: Vital Signs Temp 97.9 F 04/30/23 07:39 Pulse 86 04/30/23 07:39 Resp 18 04/30/23 07:39 BP 140/68 04/30/23 07:39 Pulse Ox 97 04/30/23 07:58 FiO2 40 04/26/23 17:39 Intake & Output 04/29/23 04/30/23 04/30/23 18:59 06:59 18:59 Intake Total 1100 20 128 Output Total 30 Balance 1070 20 128 Intake: IV 20 20 10 Invasive Line 1 20 20 10 Oral 1080 118 Output: Urine 30 Other: Voiding Method Urinal Urinal Urinal # Voids 2 - Exam No acute distress, oriented 3. Currently on 4 L. Much more awake and alert. HEENT examination is grossly unremarkable. Mucous membranes are moist. No oral lesions. Neck supple. Full range of motion. No adenopathy thyromegaly or neck vein distention. Cardiovascular examination reveals regular rhythm rate. S1-S2 normal. No S3 or S4. No discernible murmur noted. Heart sounds are distant. Heart rate 86 bpm. Lungs reveal mostly clear breath sounds. Scattered rhonchi are noted. No wheezes or crackles. Breath sounds are equal bilaterally but diminished through out. 4 L saturation is 97 %. Abdomen soft bowel sounds are heard. No masses or tenderness. Extremities are intact. No cyanosis clubbing or edema. Skin is without rash or lesion. Neurologic examination is brief but nonfocal. - Labs CBC & Chem 7: 04/30/23 08:13 04/30/23 08:13 Labs: Abnormal Lab Results - Last 24 Hours (Table) 04/30/23 04/30/23 Range/Units 08:13 08:13 WBC 14.1 H (3.8-10.6) k/uL RBC 3.79 L (4.30-5.90) m/uL Hgb 11.8 L (13.0-17.5) gm/dL Hct 37.3 L (39.0-53.0) % Neutrophils # 13.0 H (1.3-7.7) k/uL Lymphocytes # 0.5 L (1.0-4.8) k/uL Sodium 135 L (137-145) mmol/L Chloride 88 L (98-107) mmol/L Carbon Dioxide 35 H (22-30) mmol/L BUN 46 H (9-20) mg/dL Creatinine 1.31 H (0.66-1.25) mg/dL Glucose 155 H (74-99) mg/dL Assessment and Plan Assessment: Acute on chronic hypoxemic and hypercapnic respiratory failure, possibly multifactorial related to combination of acute COPD exacerbation and possible underlying congestive heart failure with reduced ejection fraction. Chest x-ray on arrival showed cardiomegaly, mild pulmonary vascular congestion, bilateral in terstitial infiltrates, and suspected small bilateral pleural effusions. No obvious focal infiltrates or evidence of focal pneumonia. Acute COVID-19 infection. Chronic hypoxic and hypercapnic respiratory failure secondary to severe oxygen dependent chronic obstructive pulmonary disease/emphysema. Most recent PFT demonstrates an FEV1 37% of predicted. Chronic atrial fibrillation. Benign essential hypertension. History of obstructive sleep apnea syndrome, with home AVAPS machine. Secondary pulmonary hypertension. Degenerative joint disease. History of kidney cancer in 2006 and previous right nephrectomy. History of back melanoma. History of detached retina. Ongoing tobacco use with nicotine addiction. Plan: Plan dated 04/28/2023. The patient is seen today in room 352. He continues on oxygen at 4 L by nasal cannula. He did test positive for coronavirus. His home AVAPS machine is at the bedside. Labs, x-rays, and medications are reviewed. We will continue to follow the patient, and make recommendations along the way. We counseled about the importance of smoking cessation. Prognosis is guarded. Plan dated 04/29/2023. The patient continues to make good progress. He is seen today in room 352. He continues on oxygen at 4 L. The patient did test positive for coronavirus. Labs, x-rays, and medications are reviewed. We will continue to follow the patient, and make recommendations along the way. His overall prognosis remains guarded. Unfortunately, the patient does continue to smoke cigarettes. He uses his home portable ventilator, at nighttime, when he sleeps. Plan dated 04/30/2023. The patient continues to do well clinically. He is seen today in room 352. He remains on 4 L. Labs, x-rays, and medications are reviewed. The patient's overall prognosis remains guarded. In addition, the patient is counseled about the importance of smoking cessation. He's been counseled many times before. The patient's home AVAPS machine is at bedside. He does use it at nighttime. We will continue to follow and make recommendations along the way. The patient's overall prognosis remains guarded. Time with Patient: Less than 30
--- NOTE | 2023-04-30 13:23 | P.DS ---
Providers Date of admission: 04/26/23 14:22 Expected date of discharge: 04/30/23 Attending physician: Gretchen Bernardo DO Consults: 04/26/23 14:01 Consult Physician Routine Consulting Provider: Chacho James Consult Reason/Comments: copd Do you want consulting provider notified?: Yes Primary care physician: [facility] Hospital Course: Discharge Diagnosis: Acute COPD exacerbation Acute on chronic hypoxic and hypercapnic respiratory failure Respiratory acidosis Acute COVID-19 infection Leukocytosis, likely steroid-induced Acute on chronic anemia Paroxysmal atrial fibrillation Hypertension Pulmonary hypertension Mildly reduced systolic function, not in exacerbation Dyslipidemia Hospital Course: 77-year-old male with history of chronic hypoxic respiratory failure on 4 L nasal cannula, COPD, hypertension, atrial fibrillation, pulmonary hypertension, mildly reduced systolic function, dyslipidemia presenting with shortness of breath. On presentation,Temperature is 98.1, pulse 79, respiratory rate 18, blood pressure 118/65, saturating at 92% on 3 L, now on BiPAP. WBC never 4, hemoglobin 11.3, pH 7.3, pCO2 92, bicarb 41, creatinine 1.36 slightly above baseline, proBNP 518, troponin 0.026, magnesium 2.4. Chest x-ray independently interpreted, shows interstitial opacities. EKG independently interpreted, shows sinus rhythm with left bundle branch block. Patient admitted for COPD exacerbation. Pulmonology consulted. Patient also found to be COVID-19 positive. Started on IV steroids and bronchodilators. Patient is at his baseline. Recommended to use his AVAPs at night. Being discharged on steroids. Follow-up with pulmonology. He is chronically ill recommended outpatient palliative care. Patient seen and examined at bedside. Vital signs reviewed and stable. General: nontoxic, no distress, appears at stated age, obese Derm: warm, dry Head: atraumatic, normocephalic, symmetric Eyes: EOMI, no lid lag, anicteric sclera Mouth: no lip lesion, mucus membranes moist Cardiovascular: S1S2 reg, no murmur Lungs: Bibasilar rales , scattered diabetes no accessory muscle use, supplemental oxygen Abdominal: soft, nontender to palpation, no guarding, no appreciable organomegaly Ext: no gross muscle atrophy, no edema, no contractures Neuro: CN II-XI grossly intact, no focal neuro deficits Psych: Alert, oriented, appropriate affect A total of 33 minutes of time were spent preparing this complex discharge summary. Patient was discharged on 04/30/23 at 1302. Patient Condition at Discharge: Stable Plan - Discharge Summary Discharge Rx Participant: No New Discharge Prescriptions: New dexAMETHasone [Decadron] 6 mg PO DAILY #6 tablet Continue Vit C/E/Zn/Coppr/Lutein/Zeaxan [Preservision Areds 2 Softgel] 1 cap PO BID Escitalopram [Lexapro] 10 mg PO DAILY Apixaban [Eliquis] 5 mg PO BID 30 Days #60 tab Famotidine [Pepcid] 20 mg PO DAILY Bumetanide [BUMEX] 1 mg PO BID 30 Days #60 tablet predniSONE 5 mg PO DAILY Loratadine 10 mg PO DAILY buPROPion [Wellbutrin] 150 mg PO BID Albuterol Inhaler [Ventolin Hfa Inhaler] 2 puff INHALATION RT-Q6H PRN PRN Reason: Shortness Of Breath Amiodarone [Cordarone] 200 mg PO DAILY Roflumilast [Daliresp] 500 mcg PO DAILY Potassium Chloride ER [K-Dur 20] 20 meq PO DAILY #30 tab Digoxin [Lanoxin] 125 mcg PO DAILY Ferrous Sulfate [Iron (65 MG Elemental)] 325 mg PO DAILY Fluticasone Propion/Salmeterol [Wixela 500-50 Inhub] 1 puff INHALATION RT-BID Cholecalciferol [Vitamin D3 (25 Mcg = 1000 Iu)] 25 mcg PO DAILY Tiotropium 2.5 Mcg/Puff [Spiriva Respimat 2.5 Mcg] 2 puff INHALATION RT-DAILY Discontinued Gabapentin [Neurontin] 200 mg PO BID #120 cap traZODone HCL [Desyrel] 50 mg PO HS Discharge Medication List Vit C/E/Zn/Coppr/Lutein/Zeaxan [Preservision Areds 2 Softgel] 1 cap PO BID 08/03/17 [History] Escitalopram [Lexapro] 10 mg PO DAILY 11/25/20 [History] Apixaban [Eliquis] 5 mg PO BID 30 Days #60 tab 11/26/20 [Rx] Amiodarone [Cordarone] 200 mg PO DAILY 12/02/20 [History] Roflumilast [Daliresp] 500 mcg PO DAILY 01/17/21 [History] Potassium Chloride ER [K-Dur 20] 20 meq PO DAILY #30 tab 01/26/21 [Rx] Digoxin [Lanoxin] 125 mcg PO DAILY 11/15/21 [History] Famotidine [Pepcid] 20 mg PO DAILY 11/15/21 [History] Ferrous Sulfate [Iron (65 MG Elemental)] 325 mg PO DAILY 05/31/22 [History] Bumetanide [BUMEX] 1 mg PO BID 30 Days #60 tablet 06/02/22 [Rx] Albuterol Inhaler [Ventolin Hfa Inhaler] 2 puff INHALATION RT-Q6H PRN 04/26/23 [History] Cholecalciferol [Vitamin D3 (25 Mcg = 1000 Iu)] 25 mcg PO DAILY 04/26/23 [History] Fluticasone Propion/Salmeterol [Wixela 500-50 Inhub] 1 puff INHALATION RT-BID 04/26/23 [History] Loratadine 10 mg PO DAILY 04/26/23 [History] Tiotropium 2.5 Mcg/Puff [Spiriva Respimat 2.5 Mcg] 2 puff INHALATION RT-DAILY 04/26/23 [History] buPROPion [Wellbutrin] 150 mg PO BID 04/26/23 [History] predniSONE 5 mg PO DAILY 04/26/23 [History] dexAMETHasone [Decadron] 6 mg PO DAILY #6 tablet 04/30/23 [Rx] Follow up Appointment(s)/Referral(s): Chris Ware DO [Doctor of Osteopathic Medicine] - 2 Weeks [facility] [Primary Care Provider] - 1-2 days Patient Instructions/Handouts: Chronic Respiratory Failure (DC), COVID-19 (Coronavirus Disease 2019) (DC) Activity/Diet/Wound Care/Special Instructions: Please see Pulmonology in 2 weeks. Also take your decadron for next 6 days and resume your prednisone 5 mg after that. Please wear your AVAPS at night. Discharge Disposition: HOME SELF-CARE
[2023-04-30 14:03] VITALS: BP 122/68; PULSE 80
== END 2023-04-30 14:22 | disposition home or self-care (01) | DRG 190 ==
LOC: EC 11:40 → 3SCARD 14:22
PROVIDERS: ADMIT Internal Medicine; ATTEND Internal Medicine
PROC: 5A09357 Assistance with Respiratory Ventilation, Less than 24 Consecutive Hours, Continuous Positive Airway Pressure (ICD-10-PCS; principal; 2023-04-26)
DX: J43.9 Emphysema, unspecified (principal); J96.21 Acute and chronic respiratory failure with hypoxia; J96.22 Acute and chronic respiratory failure with hypercapnia; U07.1 COVID-19; E87.29 Other acidosis; I45.2 Bifascicular block; I13.0 Hypertensive heart and chronic kidney disease with heart failure and stage 1 through stage 4 chronic kidney disease, or unspecified chronic kidney disease; I50.22 Chronic systolic (congestive) heart failure; N18.4 Chronic kidney disease, stage 4 (severe); I11.0 Hypertensive heart disease with heart failure; I27.29 Other secondary pulmonary hypertension; Z99.81 Dependence on supplemental oxygen; D64.9 Anemia, unspecified; D72.829 Elevated white blood cell count, unspecified; E78.5 Hyperlipidemia, unspecified; E11.22 Type 2 diabetes mellitus with diabetic chronic kidney disease; H54.8 Legal blindness, as defined in USA; H91.90 Unspecified hearing loss, unspecified ear; I48.0 Paroxysmal atrial fibrillation; G47.33 Obstructive sleep apnea (adult) (pediatric); M19.90 Unspecified osteoarthritis, unspecified site; I45.10 Unspecified right bundle-branch block; T38.0X5A Adverse effect of glucocorticoids and synthetic analogues, initial encounter; Z79.01 Long term (current) use of anticoagulants; Z79.51 Long term (current) use of inhaled steroids; Z85.528 Personal history of other malignant neoplasm of kidney; Z85.820 Personal history of malignant melanoma of skin; Z90.5 Acquired absence of kidney; Z97.4 Presence of external hearing-aid; Z79.899 Other long term (current) drug therapy; Z88.8 Allergy status to other drugs, medicaments and biological substances; X58.XXXA Exposure to other specified factors, initial encounter
CPT/HCPCS: 36415; 71046; 80048; 80053; 82803; 83605; 83735; 83880; 84100; 84145; 84484; 85025; 85610; 85730; 87636; 93005; 94640; 94660; 94760; 99285

== ENCOUNTER 2023-06-19 18:01 | Inpatient (IN) | payer OTHER, MEDICARE ==
[2023-06-19 18:23] LABS: VBG PH 7.37 (7.31-7.41)
[2023-06-19 18:32] LABS: ALT 14 U/L (4-49); AST 21 U/L (17-59); African American GFR (CKD) 69 (>60 ml/min/1.73 sqM); Albumin 3.5 g/dL (3.5-5.0); Alkaline Phosphatase 83 U/L (38-126); Anion Gap 5 mmol/L; Blood Urea Nitrogen 21 mg/dL (9-20); Calcium 8.7 mg/dL (8.4-10.2); Carbon Dioxide 35 mmol/L (22-30); Chloride 97 mmol/L (98-107); Glucose 117 mg/dL (74-99); Magnesium 1.6 mg/dL (1.6-2.3); Non-African American GFR(CKD) 60 (>60 ml/min/1.73 sqM); Partial Thromboplastin Time 27.1 sec (22.0-30.0); Potassium 4.4 mmol/L (3.5-5.1); Prothrombin Time 10.8 sec (10.0-12.5); Sodium 137 mmol/L (137-145); Total Bilirubin 0.8 mg/dL (0.2-1.3); Total Protein 6.4 g/dL (6.3-8.2)
[2023-06-19] MEDS: methylPREDNISolone SOD SUCCI 125 MG/2 ML VIAL IV STA (18:38)
[2023-06-19 18:39] LABS: Basophils # (A) 0.1 k/uL (0-0.2); Basophils % (A) 0 %; Eosinophils % (A) 0 %; HCT 38.2 % (39.0-53.0); Hypochromasia Moderate; Lymphocytes # (A) 0.6 k/uL (1.0-4.8); Lymphocytes % (A) 4 %; MCH 31.1 pg (25.0-35.0); MCHC 31.4 g/dL (31.0-37.0); Mean Platelet Volume 7.4; Monocytes # (A) 1.4 k/uL (0-1.0); Monocytes % (A) 8 %; Neutrophils # (A) 14.3 k/uL (1.3-7.7); Neutrophils % (A) 86 %; Platelet Count 172 k/uL (150-450); RBC 3.86 m/uL (4.30-5.90); RDW 14.2 % (11.5-15.5); WBC 16.7 k/uL (3.8-10.6)
[2023-06-19 18:41] LABS: NT-Pro-B-Type Natriuretic Pept 2260 pg/mL
[2023-06-19] MEDS: IPRATROPIUM 0.5 MG/2.5 ML NEBU INHALATION STA (18:41)
[2023-06-19] MEDS: ALBUTEROL NEBULIZED 2.5 MG/3 ML INHALATION STA (18:41)
--- NOTE | 2023-06-19 18:41 | ED ---
General Adult HPI - General Chief complaint: Shortness of Breath Stated complaint: willis Time Seen by Provider: 06/19/23 18:02 Source: patient, EMS, RN notes reviewed, old records reviewed Mode of arrival: EMS Limitations: no limitations - History of Present Illness Initial comments: 77-year-old male with increased cough and dyspnea. Symptoms have been p rogressive over the past 3 days. Patient is oxygen dependent, COPD. Patient reports central chest tightness. He also reports bilateral lower extremity edema. He denies fever. Cough is mostly nonproductive. - Related Data Home Medications Medication Instructions Recorded Confirmed Vit C/E/Zn/Coppr/Lutein/Zeaxan 1 cap PO BID 08/03/17 04/26/23 [Preservision Areds 2 Softgel] Escitalopram [Lexapro] 10 mg PO DAILY 11/25/20 04/26/23 Amiodarone [Cordarone] 200 mg PO DAILY 12/02/20 04/26/23 Roflumilast [Daliresp] 500 mcg PO DAILY 01/17/21 04/26/23 Digoxin [Lanoxin] 125 mcg PO DAILY 11/15/21 04/26/23 Famotidine [Pepcid] 20 mg PO DAILY 11/15/21 04/26/23 Ferrous Sulfate [Iron (65 MG 325 mg PO DAILY 05/31/22 04/26/23 Elemental)] Albuterol Inhaler [Ventolin Hfa 2 puff INHALATION RT-Q6H PRN 04/26/23 04/26/23 Inhaler] Cholecalciferol [Vitamin D3 (25 25 mcg PO DAILY 04/26/23 04/26/23 Mcg = 1000 Iu)] Fluticasone Propion/Salmeterol 1 puff INHALATION RT-BID 04/26/23 04/26/23 [Wixela 500-50 Inhub] Loratadine 10 mg PO DAILY 04/26/23 04/26/23 Tiotropium 2.5 Mcg/Puff [Spiriva 2 puff INHALATION RT-DAILY 04/26/23 04/26/23 Respimat 2.5 Mcg] buPROPion [Wellbutrin] 150 mg PO BID 04/26/23 04/26/23 predniSONE 5 mg PO DAILY 04/26/23 04/26/23 Previous Rx's Medication Instructions Recorded Apixaban [Eliquis] 5 mg PO BID 30 Days #60 tab 11/26/20 Potassium Chloride ER [K-Dur 20] 20 meq PO DAILY #30 tab 01/26/21 Bumetanide [BUMEX] 1 mg PO BID 30 Days #60 tablet 06/02/22 dexAMETHasone [Decadron] 6 mg PO DAILY #6 tablet 04/30/23 Allergies Allergy/AdvReac Type Severity Reaction Status Date / Time atorvastatin [From Lipitor] AdvReac Muscle pain Verified 04/26/23 15:03 Review of Systems ROS Statement: Those systems with pertinent positive or pertinent negative responses have been documented in the HPI. ROS Other: All systems not noted in ROS Statement are negative. Past Medical History Past Medical History: Atrial Fibrillation, Cancer, COPD, Eye Disorder, Hearing Disorder / Deafness, Hyperlipidemia, Hypertension, Osteoarthritis (OA) Additional Past Medical History / Comment(s): Emphysema (takes inhalers and uses oxygen at home). Hx Kidney Cancer in 2006, R nephrectomy.q Left eye detached retina. Wet Macular Degeneration right eye. Hx Melanoma on back. Bilateral hearing aid use, legally blind. History of Any Multi-Drug Resistant Organisms: None Reported Past Surgical History: Back Surgery Additional Past Surgical History / Comment(s): Right kidney removed. Left eye surgery X3 for detacted retina. Bilateral cataract surgery. Mohs surgery thoracic spine for melanoma. Past Anesthesia/Blood Transfusion Reactions: Previous Problems w/ Anesthesia Additional Past Anesthesia/Blood Transfusion Reaction / Comment(s): States low heart rate, light-headed and low BP X1 with anesthesia. "Got broke vocal cord and could not talk for 2 months after anesthesia one time." Past Psychological History: No Psychological Hx Reported Smoking Status: Current every day smoker Past Alcohol Use History: Daily Past Drug Use History: None Reported - Past Family History Mother Family Medical History: Cancer Additional Family Medical History / Comment(s): Brain Cancer. Father Family Medical History: CVA/TIA General Exam General appearance: alert, in no apparent distress Head exam: Present: atraumatic, normocephalic Eye exam: Present: normal appearance, PERRL ENT exam: Present: normal exam Neck exam: Present: normal inspection. Absent: tenderness, meningismus Respiratory exam: Present: respiratory distress, wheezes, accessory muscle use, decreased breath sounds, prolonged expiratory Cardiovascular Exam: Present: regular rate, normal rhythm GI/Abdominal exam: Present: soft. Absent: distended, tenderness Extremities exam: Present: pedal edema Neurological exam: Present: alert, oriented X3, CN II-XII intact. Absent: motor sensory deficit Psychiatric exam: Present: normal affect, normal mood Skin exam: Present: warm, dry, intact Course Vital Signs 06/19/23 06/19/23 06/19/23 18:02 18:05 18:20 Temperature 98.4 F Pulse Rate 98 Respiratory Rate Blood Pressure 125/63 O2 Sat by Pulse 88 L 98 Oximetry Fraction of 50 Inspired Oxygen (FIO2) 06/19/23 06/19/23 06/19/23 18:22 18:42 18:50 Temperature Pulse Rate 101 H 96 Respiratory Rate Blood Pressure O2 Sat by Pulse Oximetry Fraction of 50 Inspired Oxygen (FIO2) 06/19/23 06/19/23 06/19/23 18:51 18:56 19:00 Temperature Pulse Rate 96 94 Respiratory Rate Blood Pressure 125/63 O2 Sat by Pulse 98 93 L Oximetry Fraction of Inspired Oxygen (FIO2) 06/19/23 06/19/23 19:10 19:23 Temperature 97.9 F Pulse Rate 99 99 Respiratory 22 Rate Blood Pressure 124/53 O2 Sat by Pulse 95 Oximetry Fraction of Inspired Oxygen (FIO2) Medical Decision Making - Medical Decision Making Was pt. sent in by a medical professional or institution ([facility], SOFTWARE COMPUTER SPECIALIST, urgent care, hospital, or senior care...) When possible be specific @ -No Did you speak to anyone other than the patient for history (EMS, parent, family, police, friend...)? What history was obtained from this source @ -Paramedics Did you review nursing and triage notes (agree or disagree)? Why? @ -I reviewed and agree with nursing and triage notes Were old charts reviewed (outside hosp., previous admission, EMS record, old EKG, old radiological studies, urgent care reports/EKG's, senior care records)? Report findings @ -No old charts were reviewed Differential Diagnosis (chest pain, altered mental status, abdominal pain women, abdominal pain men, vaginal bleeding, weakness, fever, dyspnea, syncope, headache, dizziness, GI bleed, back pain, seizure, CVA, palpatations, mental health, musculoskeletal)? @ Differential Dyspnea: Coronary syndrome, arrhythmia, tamponade, asthma, COPD, pulmonary embolism, pneumonia, pneumothorax, pulmonary effusion, anaphylaxis, diabetic ketoacidosis, flailed chest, pulmonary contusion, diaphragmatic rupture, anemia, neuromuscular, this is not meant to be an all-inclusive list. EKG interpreted by me (3pts min.). @ -Sinus rhythm right bundle branch block, rate of 99, AL interval 142, QRS duration 142, QTC [address] segment elevation. X-rays interpreted by me (1pt min.). @ -[Chest x-ray shows right lower lobe infiltrate CT interpreted by me (1pt min.). @ -None done U/S interpreted by me (1pt. min.). @ -None done What testing was considered but not performed or refused? (CT, X-rays, U/S, labs)? Why? @ -None What meds were considered but not given or refused? Why? @ -None Did you discuss the management of the patient with other professionals (professionals i.e. , PA, SOFTWARE COMPUTER SPECIALIST, lab, RT, psych nurse, social insurance analyst, manager technical sales, teacher, licensed loan officer, egg caser)? Give summary @ Dr. Kumar Was smoking cessation discussed for >3mins.? @ -No Was critical care preformed (if so, how long)? @ Yes, 35 minutes Were there social determinants of health that impacted care today? How? (Homelessness, low income, unemployed, alcoholism, drug addiction, transportation, low edu. Level, literacy, decrease access to med. care, [facility], rehab)? @ -No Was there de-escalation of care discussed even if they declined (Discuss DNR or withdrawal of care, Hospice)? DNR status @ -No What co-morbidities impacted this encounter? (DM, HTN, Smoking, COPD, CAD, Cancer, CVA, ARF, Chemo, Hep., AIDS, mental health diagnosis, sleep apnea, morbid obesity)? @ -[COPD Was patient admitted / discharged? Hospital course, mention meds given and route, prescriptions, significant lab abnormalities, going to OR and other pertinent info. @ -[77-year-old male presenting with respiratory failure, hypoxia. History of oxygen dependent COPD. Patient presents with hypoxia, worsening cough and dyspnea. Patient has infiltrate on x-ray suggestive of developing pneumonia. He has a leukocytosis. He additionally does appear fluid overloaded with peripheral edema and elevated BNP. He is also given a dose of Lasix in addition to steroids, antibiotics and albuterol. He'll be admitted to internal medicine with his tightener on consult. Undiagnosed new problem with uncertain prognosis? @ -No Drug Therapy requiring intensive monitoring for toxicity (Heparin, Nitro, Insulin, Cardizem)? @ -No Were any procedures done? @ -No Diagnosis/symptom? @ -COPD exacerbation, pneumonia, respiratory failure Acute, or Chronic, or Acute on Chronic? @ -acute Uncomplicated (without systemic symptoms) or Complicated (systemic symptoms)? @ -complicated Side effects of treatment? @ -No Exacerbation, Progression, or Severe Exacerbation? @ -No Poses a threat to life or bodily function? How? (Chest pain, USA, SD, pneumonia, PE, COPD, DKA, ARF, appy, cholecystitis, CVA, Diverticulitis, Homicidal, Suicidal, threat to staff... and all critical care pts) @ -[yes, sepsis, resp failure - Lab Data Result diagrams: 06/19/23 18:13 06/19/23 18:13 Lab Results 06/19/23 06/19/23 06/19/23 Range/Units 18:13 18:13 18:13 WBC 16.7 H (3.8-10.6) k/uL RBC 3.86 L (4.30-5.90) m/uL Hgb 12.0 L (13.0-17.5) gm/dL Hct 38.2 L (39.0-53.0) % MCV 99.0 (80.0-100.0) fL MCH 31.1 (25.0-35.0) pg MCHC 31.4 (31.0-37.0) g/dL RDW 14.2 (11.5-15.5) % Plt Count 172 (150-450) k/uL MPV 7.4 Neutrophils % 86 % Lymphocytes % 4 % Monocytes % 8 % Eosinophils % 0 % Basophils % 0 % Neutrophils # 14.3 H (1.3-7.7) k/uL Lymphocytes # 0.6 L (1.0-4.8) k/uL Monocytes # 1.4 H (0-1.0) k/uL Eosinophils # 0.0 (0-0.7) k/uL Basophils # 0.1 (0-0.2) k/uL Hypochromasia Moderate PT 10.8 (10.0-12.5) sec INR 1.0 (<1.2) APTT 27.1 (22.0-30.0) sec VBG pH (7.31-7.41) VBG pCO2 (37-51) mmHg VBG HCO3 (24-28) mmol/L Sodium 137 (137-145) mmol/L Potassium 4.4 (3.5-5.1) mmol/L Chloride 97 L (98-107) mmol/L Carbon Dioxide 35 H (22-30) mmol/L Anion Gap 5 mmol/L BUN 21 H (9-20) mg/dL Creatinine 1.17 (0.66-1.25) mg/dL Est GFR (CKD-EPI)AfAm 69 (>60 ml/min/1.73 sqM) Est GFR (CKD-EPI)NonAf 60 (>60 ml/min/1.73 sqM) Glucose 117 H (74-99) mg/dL Plasma Lactic Acid Fabiano (0.7-2.0) mmol/L Calcium 8.7 (8.4-10.2) mg/dL Magnesium 1.6 (1.6-2.3) mg/dL Total Bilirubin 0.8 (0.2-1.3) mg/dL AST 21 (17-59) U/L ALT 14 (4-49) U/L Alkaline Phosphatase 83 (38-126) U/L Troponin I (0.000-0.034) ng/mL NT-Pro-B Natriuret Pep 2260 pg/mL Total Protein 6.4 (6.3-8.2) g/dL Albumin 3.5 (3.5-5.0) g/dL Influenza Type A (PCR) (Not Detectd) Influenza Type B (PCR) (Not Detectd) RSV (PCR) (Not Detectd) SARS-CoV-2 (PCR) (Not Detectd) 06/19/23 06/19/23 06/19/23 Range/Units 18:13 18:13 18:13 WBC (3.8-10.6) k/uL RBC (4.30-5.90) m/uL Hgb (13.0-17.5) gm/dL Hct (39.0-53.0) % MCV (80.0-100.0) fL MCH (25.0-35.0) pg MCHC (31.0-37.0) g/dL RDW (11.5-15.5) % Plt Count (150-450) k/uL MPV Neutrophils % % Lymphocytes % % Monocytes % % Eosinophils % % Basophils % % Neutrophils # (1.3-7.7) k/uL Lymphocytes # (1.0-4.8) k/uL Monocytes # (0-1.0) k/uL Eosinophils # (0-0.7) k/uL Basophils # (0-0.2) k/uL Hypochromasia PT (10.0-12.5) sec INR (<1.2) APTT (22.0-30.0) sec VBG pH (7.31-7.41) VBG pCO2 (37-51) mmHg VBG HCO3 (24-28) mmol/L Sodium (137-145) mmol/L Potassium (3.5-5.1) mmol/L Chloride (98-107) mmol/L Carbon Dioxide (22-30) mmol/L Anion Gap mmol/L BUN (9-20) mg/dL Creatinine (0.66-1.25) mg/dL Est GFR (CKD-EPI)AfAm (>60 ml/min/1.73 sqM) Est GFR (CKD-EPI)NonAf (>60 ml/min/1.73 sqM) Glucose (74-99) mg/dL Plasma Lactic Acid Fabiano 2.2 H* (0.7-2.0) mmol/L Calcium (8.4-10.2) mg/dL Magnesium (1.6-2.3) mg/dL Total Bilirubin (0.2-1.3) mg/dL AST (17-59) U/L ALT (4-49) U/L Alkaline Phosphatase (38-126) U/L Troponin I 0.030 (0.000-0.034) ng/mL NT-Pro-B Natriuret Pep pg/mL Total Protein (6.3-8.2) g/dL Albumin (3.5-5.0) g/dL Influenza Type A (PCR) Not Detected (Not Detectd) Influenza Type B (PCR) Not Detected (Not Detectd) RSV (PCR) Not Detected (Not Detectd) SARS-CoV-2 (PCR) Not Detected (Not Detectd) 06/19/23 Range/Units 18:13 WBC (3.8-10.6) k/uL RBC (4.30-5.90) m/uL Hgb (13.0-17.5) gm/dL Hct (39.0-53.0) % MCV (80.0-100.0) fL MCH (25.0-35.0) pg MCHC (31.0-37.0) g/dL RDW (11.5-15.5) % Plt Count (150-450) k/uL MPV Neutrophils % % Lymphocytes % % Monocytes % % Eosinophils % % Basophils % % Neutrophils # (1.3-7.7) k/uL Lymphocytes # (1.0-4.8) k/uL Monocytes # (0-1.0) k/uL Eosinophils # (0-0.7) k/uL Basophils # (0-0.2) k/uL Hypochromasia PT (10.0-12.5) sec INR (<1.2) APTT (22.0-30.0) sec VBG pH 7.37 (7.31-7.41) VBG pCO2 66 H (37-51) mmHg VBG HCO3 38 H (24-28) mmol/L Sodium (137-145) mmol/L Potassium (3.5-5.1) mmol/L Chloride (98-107) mmol/L Carbon Dioxide (22-30) mmol/L Anion Gap mmol/L BUN (9-20) mg/dL Creatinine (0.66-1.25) mg/dL Est GFR (CKD-EPI)AfAm (>60 ml/min/1.73 sqM) Est GFR (CKD-EPI)NonAf (>60 ml/min/1.73 sqM) Glucose (74-99) mg/dL Plasma Lactic Acid Fabiano (0.7-2.0) mmol/L Calcium (8.4-10.2) mg/dL Magnesium (1.6-2.3) mg/dL Total Bilirubin (0.2-1.3) mg/dL AST (17-59) U/L ALT (4-49) U/L Alkaline Phosphatase (38-126) U/L Troponin I (0.000-0.034) ng/mL NT-Pro-B Natriuret Pep pg/mL Total Protein (6.3-8.2) g/dL Albumin (3.5-5.0) g/dL Influenza Type A (PCR) (Not Detectd) Influenza Type B (PCR) (Not Detectd) RSV (PCR) (Not Detectd) SARS-CoV-2 (PCR) (Not Detectd) Disposition Clinical Impression: COPD (chronic obstructive pulmonary disease), Hypercarbia, Pneumonia Disposition: ADMITTED IP TO THIS HOSP Condition: Stable Is patient prescribed a controlled substance at d/c from ED?: No Referrals: Vickie Haro, PAC [REFERRING] - 1-2 days Time of Disposition: 19:39
--- NOTE | 2023-06-19 18:45 | XR ---
EXAM: XR chest 1V portable CLINICAL INDICATION:Male, 77 years old with history of willis; [facility] COMPARISON: 04/26/2023 TECHNIQUE: Chest single view. FINDINGS: Lines/tubes/devices: EKG leads and other extrinsic structures overlie the chest. Cardiomediastinum: Cardiac silhouette appears stable, mildly enlarged. Stable mediastinal silhouette. Vasculature: Similar mild congestion. Lungs/pleura: Asymmetric opacity of the RIGHT more than LEFT lung base, could be due to soft tissue overlap versus early edema/infiltrate. No pneumothorax or pleural effusion. No sizable consolidation, effusion, or v isible pneumothorax. Bones/soft tissues: Bony thorax appears grossly intact as seen. Regional soft tissues appear unremarkable. IMPRESSION: Asymmetric opacity at the right more than left lung base, could represent emerging pneumonia and/or i nfiltrate. Follow-up as indicated. No acute cardiopulmonary findings.
[2023-06-19] MEDS: FUROSEMIDE 10 MG/ML 4 ML VIAL IV STA (19:19)
[2023-06-19] MEDS: AZITHROMYCIN 500 MG in SODIUM CHLORIDE 0.9% 250 ML IVPB STA (19:19)
[2023-06-19] MEDS ORDERED: ACETAMINOPHEN TAB 325 MG TAB PO PRN (19:34)
[2023-06-19] MEDS ORDERED: NALOXONE 0.4 MG/ML 1 ML VIAL IVP PRN (19:34)
[2023-06-19] MEDS: SODIUM CHLORIDE 0.9% 1,000 ML IV ONE (22:30)
--- NOTE | 2023-06-19 22:30 | P.HPIM ---
History of Present Illness H&P Date: 06/19/23 Patient is a 77-year-old male with a PMH of COPD with chronic hypoxic respiratory failure on 4 L nasal cannula oxygen at home continuously, paroxysmal A-fib on Eliquis, pulmonary hypertension, hypertension, and hyperlipidemia who presents to the emergency room with complaints of shortness of breath. Patient reports breathing has been gradually worsening over the past 1 week. Reports whitish phlegm during this time somewhat thicker than usual. Denies chest discomfort, fever, chills, or green/yellow phlegm. Denies nausea, vomiting, abdominal pain, diarrhea. Turned off his oxygen to 6 L nasal cannula without significant relief and attempted to use his inhalers multiple times. Chest x-ray in the emergency room revealed right greater than left asymmetrical lung base opacity concerning for developing pneumonia. EKG revealed sinus rhythm at 99 bpm with a right bundle branch block as reviewed by me. Laboratory evaluation was remarkable for leukocytosis of 16.7, hemoglobin 12.0, lactic acid 2.2, CO2 35, BUN 21, creatinine 1.17, troponin 0.030, and proBNP 2260 with respiratory viral panel negative. VBG revealed pCO2 of 66. ED documentation reviewed and case discussed with ED provider. Review of systems: Pertinent positives and negatives as discussed in HPI, a complete review of systems was performed and all other systems are negative. Physical examination: Vital signs reviewed General: On BiPAP, no distress, appears at stated age, morbidly obese Derm: no unusual rashes/lesions, warm Head: atraumatic, normocephalic, symmetric Eyes: EOMI, no lid lag, anicteric sclera, pupils equal round reactive to light ENT: Nose and ears atraumatic Neck: No cervical lymphadenopathy, trachea midline, supple Mouth: no lip lesion, mucus membranes moist Cardiovascular: S1S2 reg, no murmur, positive dorsalis pedis pulse bilateral, no edema Lungs: Poor air entry bilaterally without rhonchi or rales, no accessory muscle use Abdominal: soft, nontender to palpation, no guarding Ext: muscle strength 5 out of 5 in all 4 extremities grossly, no gross muscle atrophy, no contractures, Neuro: CN II-XI grossly intact, no gross focal neuro deficits Psych: Alert, oriented, appropriate affect Assessment: Acute COPD exacerbation with acute on chronic hypoxic and hypercapnic respiratory failure Unable to rule out community-acquired pneumonia Lactic acidosis Chronic conditions: A-fib, hypertension, hyperlipidemia, pulmonary hypertension Imaging: Chest x-ray in the emergency room revealed right greater than left asymmetrical lung base opacity concerning for developing pneumonia. EKG revealed sinus rhythm at 99 bpm with a right bundle branch block as reviewed by me. Data Review: Laboratory evaluation was remarkable for leukocytosis of 16.7, hemoglobin 12.0, lactic acid 2.2, CO2 35, BUN 21, creatinine 1.17, troponin 0.030, and proBNP 2260 with respiratory viral panel negative. VBG revealed pCO2 of 66. Plan: Continue with BiPAP for now Pulmonary consulted Continue Solu-Medrol 60 mg IV every 6 hourly with DuoNebs Obtain procalcitonin levels Continue with azithromycin and ceftriaxone for now Previous echo from 11/2020 revealed EF of 45 to 50% Obtain repeat echocardiogram in setting of elevated BNP Monitor lactic acid level for resolution Continue with home antihypertensives and home Eliquis DVT prophylaxis: Eliquis The patient is admitted with an anticipated greater than 2 midnight stay for evaluation of COPD exacerbation CODE STATUS: Full Code Discussed with: Patient Anticipated discharge place: Home Past Medical History Past Medical History: Atrial Fibrillation, Cancer, COPD, Eye Disorder, Hearing Disorder / Deafness, Hyperlipidemia, Hypertension, Osteoarthritis (OA) Additional Past Medical History / Comment(s): Emphysema (takes inhalers and uses oxygen at home). Hx Kidney Cancer in 2006, R nephrectomy.q Left eye detached retina. Wet Macular Degeneration right eye. Hx Melanoma on back. Bilateral hearing aid use, legally blind. History of Any Multi-Drug Resistant Organisms: None Reported Past Surgical History: Back Surgery Additional Past Surgical History / Comment(s): Right kidney removed. Left eye surgery X3 for detacted retina. Bilateral cataract surgery. Mohs surgery thoracic spine for melanoma. Past Anesthesia/Blood Transfusion Reactions: Previous Problems w/ Anesthesia Additional Past Anesthesia/Blood Transfusion Reaction / Comment(s): States low heart rate, light-headed and low BP X1 with anesthesia. "Got broke vocal cord and could not talk for 2 months after anesthesia one time." Past Psychological History: No Psychological Hx Reported Smoking Status: Current every day smoker Past Alcohol Use History: Daily Past Drug Use History: None Reported - Past Family History Mother Family Medical History: Cancer Additional Family Medical History / Comment(s): Brain Cancer. Father Family Medical History: CVA/TIA Medications and Allergies Home Medications Medication Instructions Recorded Confirmed Type Vit C/E/Zn/Coppr/Lutein/Zeaxan 1 cap PO BID 08/03/17 06/19/23 History [Preservision Areds 2 Softgel] Escitalopram [Lexapro] 10 mg PO DAILY 11/25/20 06/19/23 History Apixaban [Eliquis] 5 mg PO BID 30 Days #60 tab 11/26/20 06/19/23 Rx Amiodarone [Cordarone] 200 mg PO DAILY 12/02/20 06/19/23 History Roflumilast [Daliresp] 500 mcg PO DAILY 01/17/21 06/19/23 History Potassium Chloride ER [K-Dur 20] 20 meq PO DAILY #30 tab 01/26/21 06/19/23 Rx Digoxin [Lanoxin] 125 mcg PO DAILY 11/15/21 06/19/23 History Famotidine [Pepcid] 20 mg PO DAILY 11/15/21 06/19/23 History Ferrous Sulfate [Iron (65 MG 325 mg PO DAILY 05/31/22 06/19/23 History Elemental)] Bumetanide [BUMEX] 1 mg PO BID 30 Days #60 tablet 06/02/22 06/19/23 Rx Albuterol Inhaler [Ventolin Hfa 2 puff INHALATION RT-Q6H PRN 04/26/23 06/19/23 History Inhaler] Cholecalciferol [Vitamin D3 (25 25 mcg PO DAILY 04/26/23 06/19/23 History Mcg = 1000 Iu)] Fluticasone Propion/Salmeterol 1 puff INHALATION RT-BID 04/26/23 06/19/23 History [Wixela 500-50 Inhub] Loratadine 10 mg PO DAILY 04/26/23 06/19/23 History Tiotropium 2.5 Mcg/Puff [Spiriva 2 puff INHALATION RT-DAILY 04/26/23 06/19/23 History Respimat 2.5 Mcg] buPROPion [Wellbutrin] 150 mg PO BID 04/26/23 06/19/23 History predniSONE 5 mg PO DAILY 04/26/23 06/19/23 History Varenicline [Chantix Continuing 1 mg PO BID 06/19/23 06/19/23 History Pack] Allergies Allergy/AdvReac Type Severity Reaction Status Date / Time atorvastatin [From Lipitor] AdvReac Muscle pain Verified 06/19/23 19:47 Physical Exam Vitals: Vital Signs Temp Pulse Resp BP Pulse Ox FiO2 06/19/23 21:00 94 20 114/64 94 L 50 06/19/23 19:23 97.9 F 99 22 124/53 95 06/19/23 19:10 99 06/19/23 19:00 94 125/63 93 L 06/19/23 18:56 98 06/19/23 18:51 96 06/19/23 18:50 96 06/19/23 18:42 101 H 06/19/23 18:22 50 06/19/23 18:20 98 06/19/23 18:05 50 06/19/23 18:02 98.4 F 98 125/63 88 L Intake and Output 06/19/23 06/19/23 06/19/23 06:59 14:59 22:59 Other: Weight 103.419 kg Results CBC & Chem 7: 06/19/23 18:13 06/19/23 18:13 Labs: Abnormal Lab Results - Last 24 Hours (Table) 06/19/23 06/19/23 06/19/23 Range/Units 18:13 18:13 18:13 WBC 16.7 H (3.8-10.6) k/uL RBC 3.86 L (4.30-5.90) m/uL Hgb 12.0 L (13.0-17.5) gm/dL Hct 38.2 L (39.0-53.0) % Neutrophils # 14.3 H (1.3-7.7) k/uL Lymphocytes # 0.6 L (1.0-4.8) k/uL Monocytes # 1.4 H (0-1.0) k/uL VBG pCO2 (37-51) mmHg VBG HCO3 (24-28) mmol/L Chloride 97 L (98-107) mmol/L Carbon Dioxide 35 H (22-30) mmol/L BUN 21 H (9-20) mg/dL Glucose 117 H (74-99) mg/dL Plasma Lactic Acid Fabiano 2.2 H* (0.7-2.0) mmol/L 06/19/23 06/19/23 Range/Units 18:13 20:47 WBC (3.8-10.6) k/uL RBC (4.30-5.90) m/uL Hgb (13.0-17.5) gm/dL Hct (39.0-53.0) % Neutrophils # (1.3-7.7) k/uL Lymphocytes # (1.0-4.8) k/uL Monocytes # (0-1.0) k/uL VBG pCO2 66 H (37-51) mmHg VBG HCO3 38 H (24-28) mmol/L Chloride (98-107) mmol/L Carbon Dioxide (22-30) mmol/L BUN (9-20) mg/dL Glucose (74-99) mg/dL Plasma Lactic Acid Fabiano 2.7 H* (0.7-2.0) mmol/L
[2023-06-19] MEDS: methylPREDNISolone SOD SUCCI 125 MG/2 ML VIAL IV SCH (23:57)
[2023-06-20] MEDS: IPRATROPIUM-ALBUTEROL 3 ML NEB INHALATION SCH (01:01)
[2023-06-20 07:18] LABS: HCT 35.4 % (39.0-53.0); HGB 10.8 gm/dL (13.0-17.5); Hypochromasia Marked; MCHC 30.6 g/dL (31.0-37.0); MCV 101.1 fL (80.0-100.0); Macrocytosis Slight; Mean Platelet Volume 8.1; Platelet Count 161 k/uL (150-450); RDW 14.1 % (11.5-15.5); WBC 15.6 k/uL (3.8-10.6)
[2023-06-20 07:45] LABS: Anion Gap 5 mmol/L; Blood Urea Nitrogen 31 mg/dL (9-20); Calcium 8.3 mg/dL (8.4-10.2); Carbon Dioxide 35 mmol/L (22-30); Chloride 99 mmol/L (98-107); Glucose 146 mg/dL (74-99); Potassium 4.5 mmol/L (3.5-5.1); Sodium 139 mmol/L (137-145)
[2023-06-20] MEDS: SYMBICORT 160-4.5 MCG INHALER INHALATION SCH (07:47)
[2023-06-20 08:00] LABS: African American GFR (CKD) 63 (>60 ml/min/1.73 sqM); Non-African American GFR(CKD) 54 (>60 ml/min/1.73 sqM)
[2023-06-20] MEDS: POTASSIUM CHLORIDE ER 20 MEQ TAB.ER PO SCH (08:51)
[2023-06-20] MEDS: AMIODARONE 200 MG TAB PO SCH (08:51)
[2023-06-20] MEDS: DIGOXIN 125 MCG TAB PO SCH (08:51)
[2023-06-20] MEDS: NON FORMULARY DRUG (Roflumilast [Daliresp] 500 MCG Tablet) PO SCH (08:51)
[2023-06-20] MEDS: BUMETANIDE 1 MG TAB PO SCH (08:51)
[2023-06-20] MEDS: buPROPion SR 150 MG TABLET.ER PO SCH (08:51)
[2023-06-20] MEDS: APIXABAN 5 MG TAB PO SCH (08:51)
[2023-06-20] MEDS ORDERED: AZITHROMYCIN 1,200 MG/30 ML BOTTLE PO SCH (09:00)
[2023-06-20] MEDS: AZITHROMYCIN 250 MG TAB PO SCH (09:19)
--- NOTE | 2023-06-20 13:02 | P.PN ---
Subjective Progress Note Date: 06/20/23 Pt remains on bipap, but reports he is feeling mildly improved. PC is elevated. Gen: In NAD, non-toxic HEENT: normocephalic, atraumatic, hearing acuity is intant, mucous membranes moist CVS: perfusing all extremities well, no pitting edema, Respiratory: symmetric chest expansion, no accessory muscle use, GI: soft, NTTP, ND, : no suprapubic tenderness, no CVA tenderness MSK/Derm: no rashes, cyanosis Neuro: CN II-XII intact, no motor weakness, Psych: cooperative, euthymic mood, judgment and insight is intact Hospital course: Patient is a 77-year-old male with a PMH of COPD with chronic hypoxic respiratory failure on 4 L nasal cannula oxygen at home continuously, paroxysmal A-fib on Eliquis, pulmonary hypertension, hypertension, and hyperlipidemia who presents to the emergency room with complaints of shortness of breath. Chest x- ray in the emergency room revealed right greater than left asymmetrical lung base opacity concerning for developing pneumonia. EKG revealed sinus rhythm at 99 bpm with a right bundle branch block as reviewed by me. Laboratory evaluation was remarkable for leukocytosis of 16.7, hemoglobin 12.0, lactic acid 2.2, CO2 35, BUN 21, creatinine 1.17, troponin 0.030, and proBNP 2260 with respiratory viral panel negative. VBG revealed pCO2 of 66. Assessment: Acute COPD exacerbation with acute on chronic hypoxic and hypercapnic respiratory failure Community Acquired Pneumonia Lactic acidosis Chronic conditions: A-fib, hypertension, hyperlipidemia, pulmonary hypertension Plan: Continue with BiPAP for now Pulmonary consulted Continue Solu-Medrol 60 mg IV every 6 hourly with DuoNebs Continue with azithromycin and ceftriaxone for now Previous echo from 11/2020 revealed EF of 45 to 50% Obtain repeat echocardiogram in setting of elevated BNP Continue with home antihypertensives and home Eliquis DVT prophylaxis: Eliquis The patient is admitted with an anticipated greater than 2 midnight stay for evaluation of COPD exacerbation CODE STATUS: Full Code Discussed with: Patient Anticipated discharge place: Home Objective - Vital Signs Vital signs: Vital Signs Temp 96.8 F L 06/20/23 11:28 Pulse 86 06/20/23 11:40 Resp 25 H 06/20/23 11:28 BP 102/47 06/20/23 11:28 Pulse Ox 89 L 06/20/23 11:28 FiO2 40 02/12/24 11:32 Intake & Output 06/19/23 06/20/23 06/20/23 18:59 06:59 18:59 Intake Total 90 Balance 90 Weight 103.419 kg 103.419 kg Intake: Oral 90 - Labs CBC & Chem 7: 06/20/23 07:05 06/20/23 07:05 Labs: Abnormal Lab Results - Last 24 Hours (Table) 06/19/23 06/19/23 06/19/23 Range/Units 18:13 18:13 18:13 WBC 16.7 H (3.8-10.6) k/uL RBC 3.86 L (4.30-5.90) m/uL Hgb 12.0 L (13.0-17.5) gm/dL Hct 38.2 L (39.0-53.0) % MCV (80.0-100.0) fL MCHC (31.0-37.0) g/dL Neutrophils # 14.3 H (1.3-7.7) k/uL Lymphocytes # 0.6 L (1.0-4.8) k/uL Monocytes # 1.4 H (0-1.0) k/uL VBG pCO2 (37-51) mmHg VBG HCO3 (24-28) mmol/L Chloride 97 L (98-107) mmol/L Carbon Dioxide 35 H (22-30) mmol/L BUN 21 H (9-20) mg/dL Creatinine (0.66-1.25) mg/dL Glucose 117 H (74-99) mg/dL Plasma Lactic Acid Fabiano 2.2 H* (0.7-2.0) mmol/L Calcium (8.4-10.2) mg/dL Procalcitonin (0.02-0.09) ng/mL 06/19/23 06/19/23 06/19/23 Range/Units 18:13 20:47 22:55 WBC (3.8-10.6) k/uL RBC (4.30-5.90) m/uL Hgb (13.0-17.5) gm/dL Hct (39.0-53.0) % MCV (80.0-100.0) fL MCHC (31.0-37.0) g/dL Neutrophils # (1.3-7.7) k/uL Lymphocytes # (1.0-4.8) k/uL Monocytes # (0-1.0) k/uL VBG pCO2 66 H (37-51) mmHg VBG HCO3 38 H (24-28) mmol/L Chloride (98-107) mmol/L Carbon Dioxide (22-30) mmol/L BUN (9-20) mg/dL Creatinine (0.66-1.25) mg/dL Glucose (74-99) mg/dL Plasma Lactic Acid Fabiano 2.7 H* (0.7-2.0) mmol/L Calcium (8.4-10.2) mg/dL Procalcitonin 7.08 H (0.02-0.09) ng/mL 06/20/23 06/20/23 Range/Units 07:05 07:05 WBC 15.6 H (3.8-10.6) k/uL RBC 3.50 L (4.30-5.90) m/uL Hgb 10.8 L (13.0-17.5) gm/dL Hct 35.4 L (39.0-53.0) % MCV 101.1 H (80.0-100.0) fL MCHC 30.6 L (31.0-37.0) g/dL Neutrophils # (1.3-7.7) k/uL Lymphocytes # (1.0-4.8) k/uL Monocytes # (0-1.0) k/uL VBG pCO2 (37-51) mmHg VBG HCO3 (24-28) mmol/L Chloride (98-107) mmol/L Carbon Dioxide 35 H (22-30) mmol/L BUN 31 H (9-20) mg/dL Creatinine 1.27 H (0.66-1.25) mg/dL Glucose 146 H (74-99) mg/dL Plasma Lactic Acid Fabiano (0.7-2.0) mmol/L Calcium 8.3 L (8.4-10.2) mg/dL Procalcitonin (0.02-0.09) ng/mL
--- NOTE | 2023-06-20 15:12 | P.CNPUL ---
History of Present Illness Consult date: 06/20/23 Requesting physician: Anjana Kumar Reason for consult: dyspnea, COPD Chief complaint: Shortness of breath History of present illness: This is a 77-year-old male patient with a known history of oxygen dependent chronic obstructive pulmonary disease, chronic and ongoing tobacco dependence, alcohol use, atrial fibrillation, hyperlipidemia, hypertension, renal cancer with previous right nephrectomy, macular degeneration. He follows with Dr. Ware in our office. He has severe advanced COPD with FEV1 via 37% of predicted. He also has an AVAPS machine to utilize at night. He presented to the emergency room last evening with increasing shortness of breath cough and congestion x 3 days. He had some chest tightness and swelling of the lower extremities. Chest x-ray reveals basilar opacities right greater than left possibly representing early pneumonia. White count 15.6. Hemoglobin 10.8. Platelets 161. Sodium 139. Potassium 4.5. Bicarb 35. BUN 31. Creatinine 1.27. Glucose 146. His procalcitonin was elevated at 7.08. He is seen today in consultation in the emergency department. He has been afebrile. Hemodynamically stable. He is requiring BiPAP support 14/7 and 40% FiO2. He has been initiated on DuoNeb ventilations, Symbicort, Solu-Medrol. Antibiotics in the form of ceftriaxone and azithromycin. He is anticoagulated with Eliquis. Review of Systems REVIEW OF SYSTEMS: CONSTITUTIONAL: Denies any recent significant weight loss or weight gain. EYES: Denies change in vision. EARS, NOSE, MOUTH, THROAT: Denies headaches, denies sore throat. CARDIOVASCULAR: Denies chest pain, palpitations or syncopal episodes. RESPIRATORY: Positive for shortness of breath, cough, congestion no hemoptysis. GASTROINTESTINAL: Denies change in appetite, denies abdominal pain GENITOURINARY: Denies hematuria, denies infections. MUSKULOSKELETAL: Denies pain, denies swelling. INTEGUMENTARY: Denies rash, denies eczema. NEUROLOGICAL: Denies recent memory loss, no recent seizure activity. PSYCHIATRIC: Denies anxiety, denies depression. HEMATOLOGIC/LYMPHATIC: Denies anemia, denies enlarged lymph nodes. Past Medical History Past Medical History: Atrial Fibrillation, Cancer, COPD, Eye Disorder, Hearing Disorder / Deafness, Hyperlipidemia, Hypertension, Osteoarthritis (OA) Additional Past Medical History / Comment(s): Emphysema (takes inhalers and uses oxygen at home). Hx Kidney Cancer in 2007, R nephrectomy.q Left eye detached retina. Wet Macular Degeneration right eye. Hx Melanoma on back. Bilateral hearing aid use, legally blind. History of Any Multi-Drug Resistant Organisms: None Reported Past Surgical History: Back Surgery Additional Past Surgical History / Comment(s): Right kidney removed. Left eye surgery X3 for detacted retina. Bilateral cataract surgery. Mohs surgery thoracic spine for melanoma.plate in right arm, bilateral eye lids lifted Past Anesthesia/Blood Transfusion Reactions: Previous Problems w/ Anesthesia Additional Past Anesthesia/Blood Transfusion Reaction / Comment(s): States low heart rate, light-headed and low BP X1 with anesthesia. "Got broke vocal cord and could not talk for 2 months after anesthesia one time." Smoking Status: Current some day smoker - Past Family History Mother Family Medical History: Cancer Additional Family Medical History / Comment(s): Brain Cancer. Father Family Medical History: CVA/TIA Medications and Allergies Home Medications Medication Instructions Recorded Confirmed Type Vit C/E/Zn/Coppr/Lutein/Zeaxan 1 cap PO BID 08/03/17 06/19/23 History [Preservision Areds 2 Softgel] Escitalopram [Lexapro] 10 mg PO DAILY 11/25/20 06/19/23 History Apixaban [Eliquis] 5 mg PO BID 30 Days #60 tab 11/26/20 06/19/23 Rx Amiodarone [Cordarone] 200 mg PO DAILY 12/02/20 06/19/23 History Roflumilast [Daliresp] 500 mcg PO DAILY 01/17/21 06/19/23 History Potassium Chloride ER [K-Dur 20] 20 meq PO DAILY #30 tab 01/26/21 06/19/23 Rx Digoxin [Lanoxin] 125 mcg PO DAILY 11/15/21 06/19/23 History Famotidine [Pepcid] 20 mg PO DAILY 11/15/21 06/19/23 History Ferrous Sulfate [Iron (65 MG 325 mg PO DAILY 05/31/22 06/19/23 History Elemental)] Bumetanide [BUMEX] 1 mg PO BID 30 Days #60 tablet 06/02/22 06/19/23 Rx Albuterol Inhaler [Ventolin Hfa 2 puff INHALATION RT-Q6H PRN 04/26/23 06/19/23 History Inhaler] Cholecalciferol [Vitamin D3 (25 25 mcg PO DAILY 04/26/23 06/19/23 History Mcg = 1000 Iu)] Fluticasone Propion/Salmeterol 1 puff INHALATION RT-BID 04/26/23 06/19/23 History [Wixela 500-50 Inhub] Loratadine 10 mg PO DAILY 04/26/23 06/19/23 History Tiotropium 2.5 Mcg/Puff [Spiriva 2 puff INHALATION RT-DAILY 04/26/23 06/19/23 History Respimat 2.5 Mcg] buPROPion [Wellbutrin] 150 mg PO BID 04/26/23 06/19/23 History predniSONE 5 mg PO DAILY 04/26/23 06/19/23 History Varenicline [Chantix Continuing 1 mg PO BID 06/19/23 06/19/23 History Pack] Allergies Allergy/AdvReac Type Severity Reaction Status Date / Time atorvastatin [From Lipitor] AdvReac Muscle pain Verified 06/19/23 19:47 Physical Exam Vitals: Vital Signs Temp Pulse Pulse Resp BP BP Pulse Ox 06/20/23 14:53 88 06/20/23 14:44 87 90 L 06/20/23 11:40 86 06/20/23 11:32 82 06/20/23 11:28 96.8 F L 84 25 H 102/47 89 L 06/20/23 08:31 96.8 F L 82 25 H 110/51 06/20/23 08:07 80 06/20/23 07:51 80 06/20/23 06:00 77 20 120/64 97 06/20/23 04:11 06/20/23 04:00 70 18 117/60 95 06/20/23 02:00 71 18 107/53 97 06/20/23 01:23 76 06/20/23 01:02 74 06/20/23 01:00 71 18 103/40 95 06/20/23 00:00 77 20 101/44 95 06/19/23 21:00 94 20 114/64 94 L 06/19/23 19:23 97.9 F 99 22 124/53 95 06/19/23 19:10 99 06/19/23 19:00 94 125/63 93 L 06/19/23 18:56 98 06/19/23 18:51 96 06/19/23 18:50 96 06/19/23 18:42 101 H 06/19/23 18:22 06/19/23 18:20 98 06/19/23 18:05 06/19/23 18:02 98.4 F 98 125/63 88 L FiO2 06/20/23 14:53 06/20/23 14:44 40 06/20/23 11:40 06/20/23 11:32 40 06/20/23 11:28 40 06/20/23 08:31 40 06/20/23 08:07 06/20/23 07:51 40 06/20/23 06:00 06/20/23 04:11 40 06/20/23 04:00 06/20/23 02:00 06/20/23 01:23 06/20/23 01:02 40 06/20/23 01:00 06/20/23 00:00 06/19/23 21:00 50 06/19/23 19:23 06/19/23 19:10 06/19/23 19:00 06/19/23 18:56 06/19/23 18:51 06/19/23 18:50 06/19/23 18:42 06/19/23 18:22 50 06/19/23 18:20 06/19/23 18:05 50 06/19/23 18:02 Intake and Output 06/20/23 06/20/23 06/20/23 06:59 14:59 22:59 Intake Total 90 Output Total 200 Balance -110 Intake: Oral 90 Output: Urine 200 Other: # Bowel Movements 1 Weight 103.419 kg GENERAL EXAM: Alert, 77-year-old male patient, on BiPAP 14/7 and 40% FiO2, comfortable in no apparent distress. HEAD: Normocephalic. EYES: Normal reaction of pupils, equal size. NOSE: Clear with pink turbinates. THROAT: No erythema or exudates. NECK: No masses, no JVD. CHEST: No chest wall deformity. LUNGS: Equal air entry with bilateral scattered rhonchi, end expiratory wheeze, diminished. CVS: S1 and S2 normal with no audible murmur, regular rhythm. ABDOMEN: No hepatosplenomegaly, normal bowel sounds, no guarding or rigidity. SPINE: No scoliosis or deformity SKIN: No rashes CENTRAL NERVOUS SYSTEM: No focal deficits, tone is normal in all 4 extremities. EXTREMITIES: There is no peripheral edema. No clubbing, no cyanosis. Peripheral pulses are intact. Results - Laboratory Findings CBC and BMP: 06/20/23 07:05 06/20/23 07:05 PT/INR, D-dimer PT 10.8 sec (10.0-12.5) 06/19/23 18:13 INR 1.0 (<1.2) 06/19/23 18:13 Abnormal lab findings: Abnormal Labs 06/19/23 06/19/23 06/19/23 18:13 18:13 18:13 WBC 16.7 H RBC 3.86 L Hgb 12.0 L Hct 38.2 L MCV MCHC Neutrophils # 14.3 H Lymphocytes # 0.6 L Monocytes # 1.4 H VBG pCO2 VBG HCO3 Chloride 97 L Carbon Dioxide 35 H BUN 21 H Creatinine Glucose 117 H Plasma Lactic Acid Fabiano 2.2 H* Calcium Procalcitonin 06/19/23 06/19/23 06/19/23 18:13 20:47 22:55 WBC RBC Hgb Hct MCV MCHC Neutrophils # Lymphocytes # Monocytes # VBG pCO2 66 H VBG HCO3 38 H Chloride Carbon Dioxide BUN Creatinine Glucose Plasma Lactic Acid Fabiano 2.7 H* Calcium Procalcitonin 7.08 H 06/20/23 06/20/23 07:05 07:05 WBC 15.6 H RBC 3.50 L Hgb 10.8 L Hct 35.4 L MCV 101.1 H MCHC 30.6 L Neutrophils # Lymphocytes # Monocytes # VBG pCO2 VBG HCO3 Chloride Carbon Dioxide 35 H BUN 31 H Creatinine 1.27 H Glucose 146 H Plasma Lactic Acid Fabiano Calcium 8.3 L Procalcitonin - Diagnostic Findings Chest x-ray: image reviewed Assessment and Plan Assessment: Acute on chronic hypoxemic and hypercapnic respiratory failure secondary to a combination of acute COPD exacerbation and early pneumonia. Procalcitonin 7.08. Initiated on ceftriaxone and azithromycin Chronic hypoxic and hypercapnic respiratory failure secondary to severe oxygen dependent chronic obstructive pulmonary disease/emphysema. Most recent PFT demonstrates an FEV1 37% of predicted Chronic and ongoing tobacco dependence Chronic atrial fibrillation, anticoagulated with Eliquis. Benign essential hypertension History of obstructive sleep apnea syndrome, with home AVAPS machine Secondary pulmonary hypertension Degenerative joint disease History of kidney cancer in 2007 and previous right nephrectomy History of back melanoma requiring surgery History of detached retina Plan: The patient was seen and evaluated Chest x-ray, labs and medications reviewed Continue DuoNeb ventilations, Symbicort, steroids Continue ceftriaxone and azithromycin Anticoagulated with Eliquis Continue diuretics Educated regarding the importance of complete smoking cessation NicoDerm patch will be offered We will continue to follow and make further recommendations based on his clinical status I have personally seen and examined the patient, performed the documentation and the assessment and plan as written. Number of minutes spent on the visit: 20.
[2023-06-20 16:04] LABS: Glucose,Whole Blood 143 mg/dL (70-110)
[2023-06-20 20:12] LABS: Glucose,Whole Blood 131 mg/dL (70-110)
[2023-06-21] MEDS: IPRATROPIUM-ALBUTEROL 3 ML NEB INHALATION PRN (00:25)
[2023-06-21 05:53] LABS: Glucose,Whole Blood 140 mg/dL (70-110)
[2023-06-21 07:49] LABS: Basophils % (A) 0 %; Eosinophils % (A) 0 %; HCT 35.5 % (39.0-53.0); HGB 11.4 gm/dL (13.0-17.5); Hypochromasia Moderate; Lymphocytes # (A) 0.4 k/uL (1.0-4.8); Lymphocytes % (A) 3 %; MCH 31.7 pg (25.0-35.0); MCV 98.9 fL (80.0-100.0); Mean Platelet Volume 8.1; Monocytes # (A) 0.5 k/uL (0-1.0); Monocytes % (A) 3 %; Neutrophils # (A) 14.9 k/uL (1.3-7.7); Neutrophils % (A) 94 %; Platelet Count 179 k/uL (150-450); RBC 3.59 m/uL (4.30-5.90); RDW 14.1 % (11.5-15.5); WBC 15.9 k/uL (3.8-10.6)
[2023-06-21 08:02] LABS: African American GFR (CKD) 53 (>60 ml/min/1.73 sqM); Anion Gap 5 mmol/L; Blood Urea Nitrogen 48 mg/dL (9-20); Calcium 8.2 mg/dL (8.4-10.2); Carbon Dioxide 34 mmol/L (22-30); Chloride 98 mmol/L (98-107); Glucose 126 mg/dL (74-99); Non-African American GFR(CKD) 45 (>60 ml/min/1.73 sqM); Sodium 137 mmol/L (137-145)
[2023-06-21] MEDS: NICOTINE 14MG/24HR PATCH TRANSDERM SCH (08:47)
[2023-06-21 11:24] LABS: Glucose,Whole Blood 143 mg/dL (70-110)
--- NOTE | 2023-06-21 11:32 | P.PN ---
Subjective Progress Note Date: 06/21/23 Hospital Course: 77-year-old male with history of COPD, chronic hypoxic respiratory failure on 4 L, paroxysmal atrial fibrillation on Eliquis, pulmonary hypertension, hypertension, dyslipidemia presented with acute on chronic shortness of breath. Chest x-ray in the emergency room revealed right greater than left asymmetrical lung base opacity concerning for developing pneumonia. EKG revealed sinus rhy thm at 99 bpm with a right bundle branch block. Laboratory evaluation was remarkable for leukocytosis of 16.7, hemoglobin 12.0, lactic acid 2.2, CO2 35, BUN 21, creatinine 1.17, troponin 0.030, and proBNP 2260 with respiratory viral panel negative. VBG revealed pCO2 of 66. Admitted for COPD exacerbation and community-acquired pneumonia. Patient started on BiPAP. Also on IV steroids, bronchodilators, IV antibiotics. Pulmonology consulted. Subjective: Patient seen and examined at bedside. No acute events overnight. Continues to have cough and shortness of breath. Pertinent positives and negatives as discussed above, a complete review of systems was performed and all other systems are negative. Vitals Signs Reviewed. General: Nontoxic, no distress, appears at stated age Derm: Warm, dry Head: Atraumatic, normocephalic, symmetric Eyes: EOMI, no lid lag, anicteric sclera Mouth: No lip lesion, mucus membranes moist Cardiovascular: S1S2 reg, no murmur Lungs: Bibasilar rales, no accessory muscle use, supplemental oxygen Abdominal: Soft, nontender to palpation, no guarding, no appreciable organomegaly Ext: No gross muscle atrophy, no edema, no contractures Neuro: CN II-XI grossly intact, no focal neuro deficits Psych: Alert, oriented, appropriate affect Data Reviewed Today: Pertinent Labs: WBC 15.9, hemoglobin 11.4, bicarb 34, creatinine 1.47, blood sugars range between 1 26-1 43, magnesium 2 Imaging: No new imaging Assessment and Plan: Patient is severely ill, prognosis guarded. Active: Acute on chronic hypoxic and hypercapnic respiratory failure Acute COPD exacerbation Sepsis secondary to community-acquired pneumonia OBDULIO nonoliguric -Pulmonology following -On Symbicort twice daily, continue Tropium daily, DuoNebs as needed as well as 4 times daily, IV Solu-Medrol 60 every 6 hours, monitor mentation and blood sugars -Continue to wean O2 -Continue IV ceftriaxone 1 g every 24 hours, and azithromycin 250 oral daily -Continue to monitor renal function -Patient is also on Bumex, continue for now -Repeat CBC tomorrow and BMP Resolved: Lactic acidosis Chronic: Paroxysmal atrial fibrillation Pulmonary hypertension Hypertension Depression Nicotine dependence DVT ppx: Eliquis Code status: Full code Anticipated discharge place: Pending clinical course Anticipated discharge time: Pending clinical course Objective - Vital Signs Vital signs: Vital Signs Temp 97.9 F 06/21/23 08:41 Pulse 78 06/21/23 11:10 Resp 20 06/21/23 11:10 BP 120/67 06/21/23 11:10 Pulse Ox 92 L 06/21/23 11:10 FiO2 40 06/21/23 04:00 Intake & Output 06/20/23 06/21/23 06/21/23 18:59 06:59 18:59 Intake Total 208 360 Output Total 200 500 Balance 8 -500 360 Weight 103.419 kg 102.1 kg Intake: Oral 208 360 Output: Urine 200 500 Other: Voiding Method Urinal # Bowel Movements 1 - Labs CBC & Chem 7: 06/21/23 06:13 06/21/23 06:13 Labs: Abnormal Lab Results - Last 24 Hours (Table) 06/20/23 06/20/23 06/20/23 Range/Units 07:05 16:02 20:11 WBC (3.8-10.6) k/uL RBC (4.30-5.90) m/uL Hgb (13.0-17.5) gm/dL Hct (39.0-53.0) % Neutrophils # (1.3-7.7) k/uL Lymphocytes # (1.0-4.8) k/uL Carbon Dioxide (22-30) mmol/L BUN (9-20) mg/dL Creatinine (0.66-1.25) mg/dL Glucose (74-99) mg/dL POC Glucose (mg/dL) 143 H 131 H (70-110) mg/dL Calcium (8.4-10.2) mg/dL Procalcitonin 8.38 H (0.02-0.09) ng/mL 06/21/23 06/21/23 06/21/23 Range/Units 05:51 06:13 06:13 WBC 15.9 H (3.8-10.6) k/uL RBC 3.59 L (4.30-5.90) m/uL Hgb 11.4 L (13.0-17.5) gm/dL Hct 35.5 L (39.0-53.0) % Neutrophils # 14.9 H (1.3-7.7) k/uL Lymphocytes # 0.4 L (1.0-4.8) k/uL Carbon Dioxide 34 H (22-30) mmol/L BUN 48 H (9-20) mg/dL Creatinine 1.47 H (0.66-1.25) mg/dL Glucose 126 H (74-99) mg/dL POC Glucose (mg/dL) 140 H (70-110) mg/dL Calcium 8.2 L (8.4-10.2) mg/dL Procalcitonin (0.02-0.09) ng/mL 06/21/23 Range/Units 11:20 WBC (3.8-10.6) k/uL RBC (4.30-5.90) m/uL Hgb (13.0-17.5) gm/dL Hct (39.0-53.0) % Neutrophils # (1.3-7.7) k/uL Lymphocytes # (1.0-4.8) k/uL Carbon Dioxide (22-30) mmol/L BUN (9-20) mg/dL Creatinine (0.66-1.25) mg/dL Glucose (74-99) mg/dL POC Glucose (mg/dL) 143 H (70-110) mg/dL Calcium (8.4-10.2) mg/dL Procalcitonin (0.02-0.09) ng/mL Microbiology - Last 24 Hours (Table) 06/19/23 18:30 Blood Culture - Preliminary Blood 06/19/23 18:45 Blood Culture - Preliminary Blood
--- NOTE | 2023-06-21 13:20 | P.PN ---
Subjective Progress Note Date: 06/21/23 Principal diagnosis: Acute on chronic hypoxic and hypercapnic respiratory failure secondary to acute community-acquired right lower lobe pneumonia and acute exacerbation of COPD This is a 77-year-old male patient with a known history of oxygen dependent chronic obstructive pulmonary disease, chronic and ongoing tobacco dependence, alcohol use, atrial fibrillation, hyperlipidemia, hypertension, renal cancer with previous right nephrectomy, macular degeneration. He follows with Dr. Ware in our office. He has severe advanced COPD with FEV1 via 37% of predicted. He also has an AVAPS machine to utilize at night. He presented to the emergency room last evening with increasing shortness of breath cough and congestion x 3 days. He had some chest tightness and swelling of the lower extremities. Chest x-ray reveals basilar opacities right greater than left possibly representing early pneumonia. White count 15.6. Hemoglobin 10.8. Platelets 161. Sodium 139. Potassium 4.5. Bicarb 35. BUN 31. Creatinine 1.27. Glucose 146. His procalcitonin was elevated at 7.08. He is seen today in consultation in the emergency department. He has been afebrile. Hemodynami rocio stable. He is requiring BiPAP support 14/7 and 40% FiO2. He has been initiated on DuoNeb ventilations, Symbicort, Solu-Medrol. Antibiotics in the form of ceftriaxone and azithromycin. He is anticoagulated with Eliquis. Patient was reevaluated today on 06/21/23, patient remains on oxygen at 10 L high flow nasal cannula, he has BiPAP available at bedside, patient is feeling better, breathing easier, nonetheless he seems to be quite anxious and tremulous, patient states that his updrafts make him quite tremulous when he takes them. Hemodynamically the patient is stable, blood pressure is 120/67, and his heart rate is 96.Procalcitonin level is elevated WBC count is high 15.9 hemoglobin 11.4. Renal profile is abnormal with BUN of 48 creatinine 1.47, blood cultures are negative so far. No growth in the last 24 hours. Patient is empirically on Rocephin and Zithromax for his right lower lobe pneumonia. Objective - Vital Signs Vital signs: Vital Signs Temp 97.9 F 06/21/23 08:41 Pulse 96 06/21/23 12:40 Resp 20 06/21/23 11:10 BP 120/67 06/21/23 11:10 Pulse Ox 92 L 06/21/23 11:10 FiO2 40 06/21/23 04:00 Intake & Output 06/20/23 06/21/23 06/21/23 18:59 06:59 18:59 Intake Total 208 360 Output Total 200 500 Balance 8 -500 360 Weight 103.419 kg 102.1 kg Intake: Oral 208 360 Output: Urine 200 500 Other: Voiding Method Urinal # Bowel Movements 1 1 - Exam General: The patient is awake and alert, slightly anxious, on 9 L high flow nasal cannula Skin: Skin is warm and dry and no rashes or lesions are noted. Eye: Pupils are equal, round and reactive to light, extra-ocular movements are intact; there is normal conjunctiva bilaterally. Ears, nose, mouth and throat: There are moist mucous membranes and no oral lesions. Neck: The neck is supple, there is no tenderness or JVD. Cardiovascular: There is a regular rate and rhythm. No murmur, rub or gallop is appreciated. Respiratory: Rhonchi and wheezes noted bilaterally. Gastrointestinal: Soft, non-distended, non-tender abdomen without masses or organomegaly noted. There is no rebound or guarding present. Bowel sounds are unremarkable. Back: There is no tenderness to palpation in the midline. There is no obvious deformity. Musculoskeletal: Normal ROM, no tenderness, There is no pedal edema. There is no calf tenderness or swelling. No cords were appreciated. Neurological: CN II-XII intact, Cranial nerves III through XII are intact. There are no obvious motor or sensory deficits. Coordination appears grossly intact. Speech is normal. Psychiatric: Cooperative, appropriate mood & affect, normal judgment. - Labs CBC & Chem 7: 06/21/23 06:13 06/21/23 06:13 Labs: Abnormal Lab Results - Last 24 Hours (Table) 06/20/23 06/20/23 06/20/23 Range/Units 07:05 16:02 20:11 WBC (3.8-10.6) k/uL RBC (4.30-5.90) m/uL Hgb (13.0-17.5) gm/dL Hct (39.0-53.0) % Neutrophils # (1.3-7.7) k/uL Lymphocytes # (1.0-4.8) k/uL Carbon Dioxide (22-30) mmol/L BUN (9-20) mg/dL Creatinine (0.66-1.25) mg/dL Glucose (74-99) mg/dL POC Glucose (mg/dL) 143 H 131 H (70-110) mg/dL Calcium (8.4-10.2) mg/dL Procalcitonin 8.38 H (0.02-0.09) ng/mL 06/21/23 06/21/23 06/21/23 Range/Units 05:51 06:13 06:13 WBC 15.9 H (3.8-10.6) k/uL RBC 3.59 L (4.30-5.90) m/uL Hgb 11.4 L (13.0-17.5) gm/dL Hct 35.5 L (39.0-53.0) % Neutrophils # 14.9 H (1.3-7.7) k/uL Lymphocytes # 0.4 L (1.0-4.8) k/uL Carbon Dioxide 34 H (22-30) mmol/L BUN 48 H (9-20) mg/dL Creatinine 1.47 H (0.66-1.25) mg/dL Glucose 126 H (74-99) mg/dL POC Glucose (mg/dL) 140 H (70-110) mg/dL Calcium 8.2 L (8.4-10.2) mg/dL Procalcitonin (0.02-0.09) ng/mL 06/21/23 Range/Units 11:20 WBC (3.8-10.6) k/uL RBC (4.30-5.90) m/uL Hgb (13.0-17.5) gm/dL Hct (39.0-53.0) % Neutrophils # (1.3-7.7) k/uL Lymphocytes # (1.0-4.8) k/uL Carbon Dioxide (22-30) mmol/L BUN (9-20) mg/dL Creatinine (0.66-1.25) mg/dL Glucose (74-99) mg/dL POC Glucose (mg/dL) 143 H (70-110) mg/dL Calcium (8.4-10.2) mg/dL Procalcitonin (0.02-0.09) ng/mL Microbiology - Last 24 Hours (Table) 06/19/23 18:30 Blood Culture - Preliminary Blood 06/19/23 18:45 Blood Culture - Preliminary Blood Assessment and Plan Assessment: Impression: Acute on chronic hypoxic and hypercapnic respiratory failure, multifactorial Acute right lower lobe pneumonia, community-acquired Rocephin and Zithromax Acute exacerbation of COPD Chronic atrial fibrillation on anticoagulation therapy/Eliquis History of obstructive sleep apnea with home AVAPS machine Benign essential hypertension History of pulmonary hypertension History of renal cell carcinoma and previous right nephrectomy in 2006 History of back melanoma And history of detached retina. Recommendation: Continue bronchodilators/DuoNeb, Symbicort, and continue Solu-Medrol. Continue Rocephin and Zithromax Continue diuretics Resume home meds Titrate oxygen accordingly Will continue to follow Not ready for any discharge planning at this point. Time with Patient: Less than 30
[2023-06-21 16:25] LABS: Glucose,Whole Blood 142 mg/dL (70-110)
[2023-06-21 20:16] LABS: Glucose,Whole Blood 159 mg/dL (70-110)
[2023-06-21] MEDS: ALPRAZolam 0.25 MG TAB PO STA (23:03)
[2023-06-22 05:40] LABS: Glucose,Whole Blood 165 mg/dL (70-110)
[2023-06-22] MEDS ORDERED: NON FORMULARY DRUG (Tiotropium 2.5 Mcg/Puff 10 PUFF Each) INHALATION SCH (08:00)
--- NOTE | 2023-06-22 08:13 | XR ---
EXAMINATION TYPE: XR chest 1V portable DATE OF EXAM: 06/22/2023 6:38 AM CLINICAL INDICATION:Male, 77 years old with history of Pneumonia; [facility] COMPARISON: Chest radiographs from 06/19/2023. TECHNIQUE: XR chest 1V portable Frontal view of the chest. FINDINGS: Lungs/Pleura: Right lower lung airspace opacities. There is no evidence of pleural effusion, focal co nsolidation, or pneumothorax. Pulmonary vascularity: Unremarkable. Heart/mediastinum: Cardiomediastinal silhouette is unremarkable. Musculoskeletal: No acute osseous pathology. IMPRESSION: Similar right lower lung airspace opacities.
[2023-06-22 08:31] LABS: Basophils % (A) 0 %; Eosinophils % (A) 0 %; HCT 34.8 % (39.0-53.0); HGB 10.9 gm/dL (13.0-17.5); Hypochromasia Slight; Lymphocytes # (A) 0.4 k/uL (1.0-4.8); Lymphocytes % (A) 3 %; MCH 30.6 pg (25.0-35.0); MCHC 31.3 g/dL (31.0-37.0); MCV 97.7 fL (80.0-100.0); Mean Platelet Volume 8.4; Monocytes # (A) 0.4 k/uL (0-1.0); Monocytes % (A) 3 %; Neutrophils # (A) 13.8 k/uL (1.3-7.7); Neutrophils % (A) 94 %; Platelet Count 198 k/uL (150-450); RBC 3.56 m/uL (4.30-5.90); RDW 14.2 % (11.5-15.5); WBC 14.7 k/uL (3.8-10.6)
[2023-06-22 08:58] LABS: African American GFR (CKD) 46 (>60 ml/min/1.73 sqM); Anion Gap 3 mmol/L; Blood Urea Nitrogen 47 mg/dL (9-20); Calcium 8.4 mg/dL (8.4-10.2); Carbon Dioxide 36 mmol/L (22-30); Chloride 98 mmol/L (98-107); Glucose 125 mg/dL (74-99); Magnesium 1.9 mg/dL (1.6-2.3); Non-African American GFR(CKD) 40 (>60 ml/min/1.73 sqM); Sodium 137 mmol/L (137-145)
[2023-06-22] MEDS: FAMOTIDINE 20 MG TAB PO SCH (09:23)
[2023-06-22] MEDS: ESCITALOPRAM 10 MG TAB PO SCH (09:24)
[2023-06-22 11:29] LABS: Glucose,Whole Blood 240 mg/dL (70-110)
--- NOTE | 2023-06-22 12:12 | P.PN ---
Subjective Progress Note Date: 06/22/23 Principal diagnosis: Acute on chronic hypoxic and hypercapnic respiratory failure secondary to acute community-acquired right lower lobe pneumonia and acute exacerbation of COPD This is a 77-year-old male patient with a known history of oxygen dependent chronic obstructive pulmonary disease, chronic and ongoing tobacco dependence, alcohol use, atrial fibrillation, hyperlipidemia, hypertension, renal cancer with previous right nephrectomy, macular degeneration. He follows with Dr. Ware in our office. He has severe advanced COPD with FEV1 via 37% of predicted. He also has an AVAPS machine to utilize at night. He presented to the emergency room last evening with increasing shortness of breath cough and congestion x 3 days. He had some chest tightness and swelling of the lower extremities. Chest x-ray reveals basilar opacities right greater than left possibly representing early pneumonia. White count 15.6. Hemoglobin 10.8. Platelets 161. Sodium 139. Potassium 4.5. Bicarb 35. BUN 31. Creatinine 1.27. Glucose 146. His procalcitonin was elevated at 7.08. He is seen today in consultation in the emergency department. He has been afebrile. Hemodynami rocio stable. He is requiring BiPAP support / and 40% FiO2. He has been initiated on DuoNeb ventilations, Symbicort, Solu-Medrol. Antibiotics in the form of ceftriaxone and azithromycin. He is anticoagulated with Eliquis. Patient was reevaluated today on 06/21/23, patient remains on oxygen at 10 L high flow nasal cannula, he has BiPAP available at bedside, patient is feeling better, breathing easier, nonetheless he seems to be quite anxious and tremulous, patient states that his updrafts make him quite tremulous when he takes them. Hemodynamically the patient is stable, blood pressure is 120/67, and his heart rate is 96.Procalcitonin level is elevated WBC count is high 15.9 hemoglobin 11.4. Renal profile is abnormal with BUN of 48 creatinine 1.47, blood cultures are negative so far. No growth in the last 24 hours. Patient is empirically on Rocephin and Zithromax for his right lower lobe pneumonia. Patient was reevaluated today on 06/22/2023,Doing better he is down to 6 L high flow nasal cannula with O2 sats of 91% patient has BiPAP at bedside but is not using it. WBC count is 14.7 hemoglobin 10.9 basic metabolic profile is normal creatinine is 1.65, slightly higher compared to yesterday creatinine of 1.47 hence Bumex dose should be cut down to once a day instead of twice daily. Patient remains on Rocephin for his right lower lobe pneumonia.Procalcitonin level was high on this admission as high as 8.38 Objective - Vital Signs Vital signs: Vital Signs Temp 97.5 F L 06/22/23 11:34 Pulse 68 06/22/23 11:43 Resp 18 06/22/23 11:34 BP 117/50 06/22/23 11:34 Pulse Ox 91 L 06/22/23 11:34 FiO2 40 06/21/23 04:00 Intake & Output 06/21/23 06/22/23 06/22/23 18:59 06:59 18:59 Intake Total 1076 420 Output Total 450 300 300 Balance 626 -300 120 Intake: Oral 1076 420 Output: Urine 450 300 300 Other: Voiding Method Urinal Bedside Commode Bedside Commode Urinal # Voids 1 1 # Bowel Movements 1 1 - Exam General: The patient is awake and alert, slightly anxious, on 6 L high flow nasal cannula Skin: Skin is warm and dry and no rashes or lesions are noted. Eye: Pupils are equal, round and reactive to light, extra-ocular movements are intact; there is normal conjunctiva bilaterally. Ears, nose, mouth and throat: There are moist mucous membranes and no oral lesions. Neck: The neck is supple, there is no tenderness or JVD. Cardiovascular: There is a regular rate and rhythm. No murmur, rub or gallop is appreciated. Respiratory: Crackles at the right base no rhonchi no wheezes Gastrointestinal: Soft, non-distended, non-tender abdomen without masses or organomegaly noted. There is no rebound or guarding present. Bowel sounds are unremarkable. Back: There is no tenderness to palpation in the midline. There is no obvious deformity. Musculoskeletal: Normal ROM, no tenderness, There is no pedal edema. There is no calf tenderness or swelling. No cords were appreciated. Neurological: CN II-XII intact, Cranial nerves III through XII are intact. There are no obvious motor or sensory deficits. Coordination appears grossly intact. Speech is normal. Psychiatric: Cooperative, appropriate mood & affect, normal judgment. - Labs CBC & Chem 7: 06/22/23 07:36 06/22/23 07:36 Labs: Abnormal Lab Results - Last 24 Hours (Table) 06/21/23 06/21/23 06/22/23 Range/Units 16:23 20:13 05:38 WBC (3.8-10.6) k/uL RBC (4.30-5.90) m/uL Hgb (13.0-17.5) gm/dL Hct (39.0-53.0) % Neutrophils # (1.3-7.7) k/uL Lymphocytes # (1.0-4.8) k/uL Carbon Dioxide (22-30) mmol/L BUN (9-20) mg/dL Creatinine (0.66-1.25) mg/dL Glucose (74-99) mg/dL POC Glucose (mg/dL) 142 H 159 H 165 H (70-110) mg/dL 06/22/23 06/22/23 06/22/23 Range/Units 07:36 07:36 11:27 WBC 14.7 H (3.8-10.6) k/uL RBC 3.56 L (4.30-5.90) m/uL Hgb 10.9 L (13.0-17.5) gm/dL Hct 34.8 L (39.0-53.0) % Neutrophils # 13.8 H (1.3-7.7) k/uL Lymphocytes # 0.4 L (1.0-4.8) k/uL Carbon Dioxide 36 H (22-30) mmol/L BUN 47 H (9-20) mg/dL Creatinine 1.65 H (0.66-1.25) mg/dL Glucose 125 H (74-99) mg/dL POC Glucose (mg/dL) 240 H (70-110) mg/dL Microbiology - Last 24 Hours (Table) 06/19/23 18:45 Blood Culture - Preliminary Blood 06/19/23 18:30 Blood Culture - Preliminary Blood Assessment and Plan Assessment: Impression: Acute on chronic hypoxic and hypercapnic respiratory failure, multifactorial Acute right lower lobe pneumonia, community-acquired, being treated with Rocephin Acute exacerbation of COPD Chronic atrial fibrillation on anticoagulation therapy/Eliquis History of obstructive sleep apnea with home AVAPS machine Benign essential hypertension History of pulmonary hypertension History of renal cell carcinoma and previous right nephrectomy in 2007 History of back melanoma And history of detached retina. Recommendation: Continue bronchodilators/DuoNeb, Symbicort, and continue Solu-Medrol. Continue Rocephin and Zithromax Down the dose of Bumex to 1 mg daily instead of twice daily Continue home meds, avoid nephrotoxic medication Titrate oxygen accordingly Will continue to follow Time with Patient: Less than 30
--- NOTE | 2023-06-22 12:28 | P.PN ---
Subjective Progress Note Date: 06/22/23 Hospital Course: 77-year-old male with history of COPD, chronic hypoxic respiratory failure on 4 L, paroxysmal atrial fibrillation on Eliquis, pulmonary hypertension, hypertension, dyslipidemia presented with acute on chronic shortness of breath. Chest x-ray in the emergency room revealed right greater than left asymmetrical lung base opacity concerning for developing pneumonia. EKG revealed sinus rhy thm at 99 bpm with a right bundle branch block. Laboratory evaluation was remarkable for leukocytosis of 16.7, hemoglobin 12.0, lactic acid 2.2, CO2 35, BUN 21, creatinine 1.17, troponin 0.030, and proBNP 2260 with respiratory viral panel negative. VBG revealed pCO2 of 66. Admitted for COPD exacerbation and community-acquired pneumonia. Patient started on BiPAP. Also on IV steroids, bronchodilators, IV antibiotics. Pulmonology consulted. Subjective: Patient seen and examined at bedside. No acute events overnight. Shortness of breath improved Pertinent positives and negatives as discussed above, a complete review of systems was performed and all other systems are negative. Vitals Signs Reviewed. General: Nontoxic, no distress, appears at stated age Derm: Warm, dry Head: Atraumatic, normocephalic, symmetric Eyes: EOMI, no lid lag, anicteric sclera Mouth: No lip lesion, mucus membranes moist Cardiovascular: S1S2 reg, no murmur Lungs: Bibasilar rales, no accessory muscle use, supplemental oxygen Abdominal: Soft, nontender to palpation, no guarding, no appreciable organom egaly Ext: No gross muscle atrophy, no edema, no contractures Neuro: CN II-XI grossly intact, no focal neuro deficits Psych: Alert, oriented, appropriate affect Data Reviewed Today: Pertinent Labs: WBC 14.7, hemoglobin 10.9, creatinine 1.65, blood sugars range between 1 25-1 59 Imaging: No new imaging Assessment and Plan: Patient is severely ill, prognosis guarded. Active: Acute on chronic hypoxic and hypercapnic respiratory failure Acute COPD exacerbation Sepsis secondary to community-acquired pneumonia OBDULIO nonoliguric -Pulmonology note reviewed, decrease Bumex, otherwise continue current management -On Symbicort twice daily, continue Tropium daily, DuoNebs as needed as well as 4 times daily, IV Solu-Medrol 60 every 6 hours, monitor mentation and blood sugars -Continue to wean O2 -Continue IV ceftriaxone 1 g every 24 hours, status post oral azithromycin -Continue to monitor renal function -Patient is also on Bumex, decreased to 1 mg daily per pulmonology -Repeat CBC tomorrow and BMP Resolved: Lactic acidosis Chronic: Paroxysmal atrial fibrillation Pulmonary hypertension Hypertension Depression Nicotine dependence DVT ppx: Eliquis Code status: Full code Anticipated discharge place: Pending clinical course Anticipated discharge time: Pending clinical course Objective - Vital Signs Vital signs: Vital Signs Temp 97.5 F L 06/22/23 11:34 Pulse 68 06/22/23 11:43 Resp 18 06/22/23 11:34 BP 117/50 06/22/23 11:34 Pulse Ox 91 L 06/22/23 11:34 FiO2 40 06/21/23 04:00 Intake & Output 06/21/23 06/22/23 06/22/23 18:59 06:59 18:59 Intake Total 1076 420 Output Total 450 300 300 Balance 626 -300 120 Intake: Oral 1076 420 Output: Urine 450 300 300 Other: Voiding Method Urinal Bedside Commode Bedside Commode Urinal # Voids 1 1 # Bowel Movements 1 1 - Labs CBC & Chem 7: 06/22/23 07:36 06/22/23 07:36 Labs: Abnormal Lab Results - Last 24 Hours (Table) 06/21/23 06/21/23 06/22/23 Range/Units 16:23 20:13 05:38 WBC (3.8-10.6) k/uL RBC (4.30-5.90) m/uL Hgb (13.0-17.5) gm/dL Hct (39.0-53.0) % Neutrophils # (1.3-7.7) k/uL Lymphocytes # (1.0-4.8) k/uL Carbon Dioxide (22-30) mmol/L BUN (9-20) mg/dL Creatinine (0.66-1.25) mg/dL Glucose (74-99) mg/dL POC Glucose (mg/dL) 142 H 159 H 165 H (70-110) mg/dL 06/22/23 06/22/23 06/22/23 Range/Units 07:36 07:36 11:27 WBC 14.7 H (3.8-10.6) k/uL RBC 3.56 L (4.30-5.90) m/uL Hgb 10.9 L (13.0-17.5) gm/dL Hct 34.8 L (39.0-53.0) % Neutrophils # 13.8 H (1.3-7.7) k/uL Lymphocytes # 0.4 L (1.0-4.8) k/uL Carbon Dioxide 36 H (22-30) mmol/L BUN 47 H (9-20) mg/dL Creatinine 1.65 H (0.66-1.25) mg/dL Glucose 125 H (74-99) mg/dL POC Glucose (mg/dL) 240 H (70-110) mg/dL Microbiology - Last 24 Hours (Table) 06/19/23 18:45 Blood Culture - Preliminary Blood 06/19/23 18:30 Blood Culture - Preliminary Blood
[2023-06-22 16:32] LABS: Glucose,Whole Blood 151 mg/dL (70-110)
[2023-06-22 20:12] LABS: Glucose,Whole Blood 223 mg/dL (70-110)
[2023-06-22] MEDS: ALPRAZolam 0.25 MG TAB PO STA (22:02)
[2023-06-22 23:45] VITALS: RESP 18
[2023-06-23 05:48] LABS: Glucose,Whole Blood 149 mg/dL (70-110)
--- NOTE | 2023-06-23 08:47 | XR ---
EXAMINATION TYPE: XR chest 1V portable DATE OF EXAM: 06/23/2023 7:04 AM CLINICAL INDICATION:Male, 77 years old with history of Pneumonia; H COMPARISON: Chest radiographs from 06/22/2023 TECHNIQUE: XR chest 1V portable Frontal view of the chest. FINDINGS: Lungs/Pleura: Improved aeration of lungs on today's exam with persistent airspace opacities scattered throughout the lungs. No evidence of pneumothorax or large pleural effusion. Pulmonary vascularity: Unremarkable. Heart/mediastinum: Cardiomediastinal silhouette is unremarkable. Musculoskeletal: No acute osseous pathology. Other findings: None IMPRESSION: 1. Improved aeration of the right lower lobe with persistent airspace opacities. 2. COPD changes.
[2023-06-23] MEDS: BUMETANIDE 1 MG TAB PO SCH (09:18)
[2023-06-23 09:37] LABS: Basophils % (A) 0 %; Eosinophils % (A) 0 %; HCT 34.7 % (39.0-53.0); Hypochromasia Moderate; Lymphocytes # (A) 0.4 k/uL (1.0-4.8); Lymphocytes % (A) 3 %; MCH 31.3 pg (25.0-35.0); MCHC 31.7 g/dL (31.0-37.0); MCV 98.7 fL (80.0-100.0); Mean Platelet Volume 8.2; Monocytes # (A) 0.4 k/uL (0-1.0); Monocytes % (A) 3 %; Neutrophils # (A) 11.9 k/uL (1.3-7.7); Neutrophils % (A) 92 %; Platelet Count 228 k/uL (150-450); RBC 3.52 m/uL (4.30-5.90); RDW 14.3 % (11.5-15.5); WBC 12.9 k/uL (3.8-10.6)
[2023-06-23 10:05] LABS: ALT 29 U/L (4-49); AST 25 U/L (17-59); African American GFR (CKD) 55 (>60 ml/min/1.73 sqM); Albumin 3.1 g/dL (3.5-5.0); Alkaline Phosphatase 77 U/L (38-126); Anion Gap 4 mmol/L; Blood Urea Nitrogen 42 mg/dL (9-20); Calcium 8.4 mg/dL (8.4-10.2); Carbon Dioxide 38 mmol/L (22-30); Chloride 97 mmol/L (98-107); Glucose 160 mg/dL (74-99); Non-African American GFR(CKD) 48 (>60 ml/min/1.73 sqM); Potassium 4.6 mmol/L (3.5-5.1); Sodium 139 mmol/L (137-145); Total Bilirubin 0.3 mg/dL (0.2-1.3); Total Protein 5.7 g/dL (6.3-8.2)
[2023-06-23 11:24] LABS: Glucose,Whole Blood 154 mg/dL (70-110)
--- NOTE | 2023-06-23 12:06 | P.PN ---
Subjective Progress Note Date: 06/23/23 Hospital Course: 77-year-old male with history of COPD, chronic hypoxic respiratory failure on 4 L, paroxysmal atrial fibrillation on Eliquis, pulmonary hypertension, hypertension, dyslipidemia presented with acute on chronic shortness of breath. Chest x-ray in the emergency room revealed right greater than left asymmetrical lung base opacity concerning for developing pneumonia. EKG revealed sinus rhy thm at 99 bpm with a right bundle branch block. Laboratory evaluation was remarkable for leukocytosis of 16.7, hemoglobin 12.0, lactic acid 2.2, CO2 35, BUN 21, creatinine 1.17, troponin 0.030, and proBNP 2260 with respiratory viral panel negative. VBG revealed pCO2 of 66. Admitted for COPD exacerbation and community-acquired pneumonia. Patient started on BiPAP. Also on IV steroids, bronchodilators, IV antibiotics. Pulmonology consulted. Subjective: Patient seen and examined at bedside. No acute events overnight. Shortness of breath improved. Pertinent positives and negatives as discussed above, a complete review of systems was performed and all other systems are negative. Vitals Signs Reviewed. General: Nontoxic, no distress, appears at stated age Derm: Warm, dry Head: Atraumatic, normocephalic, symmetric Eyes: EOMI, no lid lag, anicteric sclera Mouth: No lip lesion, mucus membranes moist Cardiovascular: S1S2 reg, no murmur Lungs: Bibasilar rales, no accessory muscle use, supplemental oxygen Abdominal: Soft, nontender to palpation, no guarding, no appreciable organ omegaly Ext: No gross muscle atrophy, no edema, no contractures Neuro: CN II-XI grossly intact, no focal neuro deficits Psych: Alert, oriented, appropriate affect Data Reviewed Today: Pertinent Labs: WBC 12.9, hemoglobin 11, creatinine 1.42, glucose range between 1 49-2 23 Imaging: Chest x-ray independently interpreted, right lower lobe opacity improved Assessment and Plan: Patient is severely ill, prognosis guarded. Active: Acute on chronic hypoxic and hypercapnic respiratory failure, improving Acute COPD exacerbation Sepsis secondary to community-acquired pneumonia OBDULIO nonoliguric, improving -Pulmonology following -On Symbicort twice daily,DuoNebs as needed as well as 4 times daily, IV Solu- Medrol 60 every 6 hours, monitor mentation and blood sugars -Continue to wean O2 -Continue IV ceftriaxone 1 g every 24 hours, status post oral azithromycin -Continue to monitor renal function -On a reduced dose of oral Bumex at 1 mg daily -Repeat CBC tomorrow and BMP -Likely discharge home with home care tomorrow Resolved: Lactic acidosis Chronic: Paroxysmal atrial fibrillation Pulmonary hypertension Hypertension Depression Nicotine dependence DVT ppx: Eliquis Code status: Full code Anticipated discharge place: Home with home care Anticipated discharge time: Likely tomorrow Objective - Vital Signs Vital signs: Vital Signs Temp 98.1 F 06/23/23 08:00 Pulse 74 06/23/23 10:28 Resp 18 06/23/23 08:00 BP 138/63 06/23/23 08:00 Pulse Ox 94 L 06/23/23 08:53 FiO2 40 06/21/23 04:00 Intake & Output 06/22/23 06/23/23 06/23/23 18:59 06:59 18:59 Intake Total 780 358 Output Total 3529 673 2272 Balance -420 -851 -449 Intake: Oral 780 358 Output: Urine 7299 089 4200 Other: Voiding Method Bedside Commode Bedside Commode Bedside Commode Urinal Urinal Urinal # Voids 1 # Bowel Movements 1 - Labs CBC & Chem 7: 06/23/23 09:00 06/23/23 09:00 Labs: Abnormal Lab Results - Last 24 Hours (Table) 06/22/23 06/22/23 06/23/23 Range/Units 16:30 20:10 05:46 WBC (3.8-10.6) k/uL RBC (4.30-5.90) m/uL Hgb (13.0-17.5) gm/dL Hct (39.0-53.0) % Neutrophils # (1.3-7.7) k/uL Lymphocytes # (1.0-4.8) k/uL Chloride (98-107) mmol/L Carbon Dioxide (22-30) mmol/L BUN (9-20) mg/dL Creatinine (0.66-1.25) mg/dL Glucose (74-99) mg/dL POC Glucose (mg/dL) 151 H 223 H 149 H (70-110) mg/dL Total Protein (6.3-8.2) g/dL Albumin (3.5-5.0) g/dL 06/23/23 06/23/23 06/23/23 Range/Units 09:00 09:00 11:19 WBC 12.9 H (3.8-10.6) k/uL RBC 3.52 L (4.30-5.90) m/uL Hgb 11.0 L (13.0-17.5) gm/dL Hct 34.7 L (39.0-53.0) % Neutrophils # 11.9 H (1.3-7.7) k/uL Lymphocytes # 0.4 L (1.0-4.8) k/uL Chloride 97 L (98-107) mmol/L Carbon Dioxide 38 H (22-30) mmol/L BUN 42 H (9-20) mg/dL Creatinine 1.42 H (0.66-1.25) mg/dL Glucose 160 H (74-99) mg/dL POC Glucose (mg/dL) 154 H (70-110) mg/dL Total Protein 5.7 L (6.3-8.2) g/dL Albumin 3.1 L (3.5-5.0) g/dL Microbiology - Last 24 Hours (Table) 06/19/23 18:30 Blood Culture - Preliminary Blood 06/19/23 18:45 Blood Culture - Preliminary Blood
--- NOTE | 2023-06-23 13:28 | P.PN ---
Subjective Progress Note Date: 06/23/23 Principal diagnosis: Acute on chronic hypoxic and hypercapnic respiratory failure secondary to acute community-acquired right lower lobe pneumonia and acute exacerbation of COPD This is a 77-year-old male patient with a known history of oxygen dependent chronic obstructive pulmonary disease, chronic and ongoing tobacco dependence, alcohol use, atrial fibrillation, hyperlipidemia, hypertension, renal cancer with previous right nephrectomy, macular degeneration. He follows with Dr. Ware in our office. He has severe advanced COPD with FEV1 via 37% of predicted. He also has an AVAPS machine to utilize at night. He presented to the emergency room last evening with increasing shortness of breath cough and congestion x 3 days. He had some chest tightness and swelling of the lower extremities. Chest x-ray reveals basilar opacities right greater than left possibly representing early pneumonia. White count 15.6. Hemoglobin 10.8. Platelets 161. Sodium 139. Potassium 4.5. Bicarb 35. BUN 31. Creatinine 1.27. Glucose 146. His procalcitonin was elevated at 7.08. He is seen today in consultation in the emergency department. He has been afebrile. Hemodynami rocio stable. He is requiring BiPAP support / and 40% FiO2. He has been initiated on DuoNeb ventilations, Symbicort, Solu-Medrol. Antibiotics in the form of ceftriaxone and azithromycin. He is anticoagulated with Eliquis. Patient was reevaluated today on 06/21/23, patient remains on oxygen at 10 L high flow nasal cannula, he has BiPAP available at bedside, patient is feeling better, breathing easier, nonetheless he seems to be quite anxious and tremulous, patient states that his updrafts make him quite tremulous when he takes them. Hemodynamically the patient is stable, blood pressure is 120/67, and his heart rate is 96.Procalcitonin level is elevated WBC count is high 15.9 hemoglobin 11.4. Renal profile is abnormal with BUN of 48 creatinine 1.47, blood cultures are negative so far. No growth in the last 24 hours. Patient is empirically on Rocephin and Zithromax for his right lower lobe pneumonia. Patient was reevaluated today on 06/22/2023,Doing better he is down to 6 L high flow nasal cannula with O2 sats of 91% patient has BiPAP at bedside but is not using it. WBC count is 14.7 hemoglobin 10.9 basic metabolic profile is normal creatinine is 1.65, slightly higher compared to yesterday creatinine of 1.47 hence Bumex dose should be cut down to once a day instead of twice daily. Patient remains on Rocephin for his right lower lobe pneumonia.Procalcitonin level was high on this admission as high as 8.38 Patient was reevaluated today on 06/23/2023, patient is on 4 L nasal cannula,O2 sats is 91%, he has BiPAP at bedside, improving clinically, however the patient does not feel like he is back to his baseline. Chest x-ray is showing improvement in his right lower lobe pneumonia. Patient remains on bronchodilators and antibiotics. And I am planning to possibly clear the patient for discharge in the next 24 to 48 hours. Objective - Vital Signs Vital signs: Vital Signs Temp 97.9 F 06/23/23 12:00 Pulse 86 06/23/23 12:42 Resp 18 06/23/23 12:00 BP 143/67 06/23/23 12:00 Pulse Ox 91 L 06/23/23 12:00 FiO2 40 06/21/23 04:00 Intake & Output 06/22/23 06/23/23 06/23/23 18:59 06:59 18:59 Intake Total 780 598 Output Total 7895 027 6059 Balance -320 -600 -402 Intake: Oral 780 598 Output: Urine 6769 154 1820 Other: Voiding Method Bedside Commode Bedside Commode Bedside Commode Urinal Urinal Urinal # Voids 1 # Bowel Movements 1 - Exam General: The patient is awake and alert, on 4 L nasal cannula Skin: Skin is warm and dry and no rashes or lesions are noted. Eye: Pupils are equal, round and reactive to light, extra-ocular movements are intact; there is normal conjunctiva bilaterally. Ears, nose, mouth and throat: There are moist mucous membranes and no oral lesions. Neck: The neck is supple, there is no tenderness or JVD. Cardiovascular: There is a regular rate and rhythm. No murmur, rub or gallop is appreciated. Respiratory: Minimal wheezing on forced expiratory maneuver, fine crackles at the right base. Gastrointestinal: Soft, non-distended, non-tender abdomen without masses or organomegaly noted. There is no rebound or guarding present. Bowel sounds are unremarkable. Back: There is no tenderness to palpation in the midline. There is no obvious deformity. Musculoskeletal: Normal ROM, no tenderness, There is no pedal edema. There is no calf tenderness or swelling. No cords were appreciated. Neurological: CN II-XII intact, Cranial nerves III through XII are intact. There are no obvious motor or sensory deficits. Coordination appears grossly intact. Speech is normal. Psychiatric: Cooperative, appropriate mood & affect, normal judgment. - Labs CBC & Chem 7: 06/23/23 09:00 06/23/23 09:00 Labs: Abnormal Lab Results - Last 24 Hours (Table) 06/22/23 06/22/23 06/23/23 Range/Units 16:30 20:10 05:46 WBC (3.8-10.6) k/uL RBC (4.30-5.90) m/uL Hgb (13.0-17.5) gm/dL Hct (39.0-53.0) % Neutrophils # (1.3-7.7) k/uL Lymphocytes # (1.0-4.8) k/uL Chloride (98-107) mmol/L Carbon Dioxide (22-30) mmol/L BUN (9-20) mg/dL Creatinine (0.66-1.25) mg/dL Glucose (74-99) mg/dL POC Glucose (mg/dL) 151 H 223 H 149 H (70-110) mg/dL Total Protein (6.3-8.2) g/dL Albumin (3.5-5.0) g/dL 06/23/23 06/23/23 06/23/23 Range/Units 09:00 09:00 11:19 WBC 12.9 H (3.8-10.6) k/uL RBC 3.52 L (4.30-5.90) m/uL Hgb 11.0 L (13.0-17.5) gm/dL Hct 34.7 L (39.0-53.0) % Neutrophils # 11.9 H (1.3-7.7) k/uL Lymphocytes # 0.4 L (1.0-4.8) k/uL Chloride 97 L (98-107) mmol/L Carbon Dioxide 38 H (22-30) mmol/L BUN 42 H (9-20) mg/dL Creatinine 1.42 H (0.66-1.25) mg/dL Glucose 160 H (74-99) mg/dL POC Glucose (mg/dL) 154 H (70-110) mg/dL Total Protein 5.7 L (6.3-8.2) g/dL Albumin 3.1 L (3.5-5.0) g/dL Microbiology - Last 24 Hours (Table) 06/19/23 18:30 Blood Culture - Preliminary Blood 06/19/23 18:45 Blood Culture - Preliminary Blood Assessment and Plan Assessment: Impression: Acute on chronic hypoxic and hypercapnic respiratory failure, multifactorial Acute right lower lobe pneumonia, community-acquired, being treated with Rocephin Acute exacerbation of COPD Chronic atrial fibrillation on anticoagulation therapy/Eliquis History of obstructive sleep apnea with home AVAPS machine Benign essential hypertension History of pulmonary hypertension History of renal cell carcinoma and previous right nephrectomy in 2006 History of back melanoma And history of detached retina. Recommendation: Continue bronchodilators/DuoNeb, Symbicort, and continue Solu-Medrol. Continue Rocephin and Zithromax Down the dose of Bumex to 1 mg daily instead of twice daily, creatinine is better today down to 1.42 Continue home meds, avoid nephrotoxic medication Titrate oxygen accordingly Will continue to follow Time with Patient: Less than 30
--- NOTE | 2023-06-23 15:17 | US ---
EXAMINATION TYPE: US venous doppler duplex LE LT DATE OF EXAM: 06/23/2023 3:10 PM COMPARISON: NONE CLINICAL INDICATION: Male, 77 years old with history of left thigh edema and pain; Left leg pain SIDE PERFORMED: Left TECHNIQUE: The lower extremity deep venous system is examined utilizing real time linear array sonog nila with graded compression, doppler sonography and color-flow sonography. VESSELS IMAGED: Common Femoral Vein Deep Femoral Vein Greater Saphenous Vein * Femoral Vein Popliteal Vein Small Saphenous Vein * Proximal Calf Veins (* superficial vessels) Left Leg: Negative for DVT IMPRESSION: No evidence of deep venous thrombosis.
[2023-06-23 16:55] LABS: Glucose,Whole Blood 151 mg/dL (70-110)
[2023-06-23 19:30] LABS: Glucose,Whole Blood 181 mg/dL (70-110)
[2023-06-24 05:48] LABS: Glucose,Whole Blood 142 mg/dL (70-110)
[2023-06-24 08:10] VITALS: BMI 32.3
[2023-06-24 09:17] LABS: Basophils % (A) 0 %; Eosinophils % (A) 0 %; HGB 12.2 gm/dL (13.0-17.5); Hypochromasia Marked; Lymphocytes # (A) 0.6 k/uL (1.0-4.8); Lymphocytes % (A) 4 %; MCH 30.4 pg (25.0-35.0); MCHC 30.4 g/dL (31.0-37.0); MCV 99.9 fL (80.0-100.0); Mean Platelet Volume 8.6; Monocytes # (A) 0.5 k/uL (0-1.0); Monocytes % (A) 3 %; Neutrophils # (A) 14.7 k/uL (1.3-7.7); Neutrophils % (A) 92 %; Platelet Count 277 k/uL (150-450); RDW 13.9 % (11.5-15.5); WBC 15.9 k/uL (3.8-10.6)
[2023-06-24 09:50] LABS: African American GFR (CKD) 55 (>60 ml/min/1.73 sqM); Anion Gap 2 mmol/L; Blood Urea Nitrogen 42 mg/dL (9-20); Calcium 8.9 mg/dL (8.4-10.2); Carbon Dioxide 38 mmol/L (22-30); Chloride 95 mmol/L (98-107); Glucose 162 mg/dL (74-99); Non-African American GFR(CKD) 48 (>60 ml/min/1.73 sqM); Potassium 4.7 mmol/L (3.5-5.1); Sodium 135 mmol/L (137-145)
[2023-06-24 11:16] LABS: Glucose,Whole Blood 134 mg/dL (70-110)
[2023-06-24 11:29] VITALS: BP 152/78; PULSE 81; TEMP 97.6
--- NOTE | 2023-06-24 12:49 | P.DS ---
Providers Date of admission: 06/19/23 19:34 Expected date of discharge: 06/24/23 Attending physician: Anjana Kumar MD Consults: 06/19/23 19:34 Consult Physician Routine Consulting Provider: Chris Ware Consult Reason/Comments: COPD Do you want consulting provider notified?: Yes Primary care physician: Sinan Kurtz Hospital Course: Discharge Diagnosis: Acute on chronic hypoxic and hypercapnic respiratory failure, improving Acute COPD exacerbation Sepsis secondary to community-acquired pneumonia OBDULIO nonoliguric Lactic acidosis Paroxysmal atrial fibrillation Pulmonary hypertension Hypertension Depression Nicotine dependence Hospital Course: 77-year-old male with history of COPD, chronic hypoxic respiratory failure on 4 L, paroxysmal atrial fibrillation on Eliquis, pulmonary hypertension, hypertension, dyslipidemia presented with acute on chronic shortness of breath. Chest x-ray in the emergency room revealed right greater than left asymmetrical lung base opacity concerning for developing pneumonia. EKG revealed sinus rhythm at 99 bpm with a right bundle branch block. Laboratory evaluation was remarkable for leukocytosis of 16.7, hemoglobin 12.0, lactic acid 2.2, CO2 35, BUN 21, creatinine 1.17, troponin 0.030, and proBNP 2260 with respiratory viral panel negative. VBG revealed pCO2 of 66. Admitted for COPD exacerbation and community-acquired pneumonia. Patient started on BiPAP. Also on IV steroids, bronchodilators, IV antibiotics. Pulmonology consulted. Oxygen down titrated to 4 L at the time of discharge. Patient being discharged home with steroid taper as well as oral antibiotics. Renal function improved. Patient also recommended to see with palliative care as an outpatient. Patient seen and examined at bedside. Vital signs reviewed and stable. General: Nontoxic, no distress, appears at stated age, chronically ill appearing, Obese Derm: Warm, dry Head: Atraumatic, normocephalic, symmetric Eyes: EOMI, no lid lag, anicteric sclera Mouth: No lip lesion, mucus membranes moist Cardiovascular: S1S2 reg, no murmur Lungs: Clear to auscultation bilaterally, no accessory muscle use, supplemental oxygen Abdominal: Soft, nontender to palpation, no guarding, no appreciable organomegaly Ext: No gross muscle atrophy, no edema, no contractures Neuro: CN II-XI grossly intact, no focal neuro deficits Psych: Alert, oriented, appropriate affect A total of 33 minutes of time were spent preparing this complex discharge summary. Patient was discharged on 06/24/2023 at 1102. Patient Condition at Discharge: Stable Plan - Discharge Summary Discharge Rx Participant: No New Discharge Prescriptions: New predniSONE [Deltasone] See Rx Instructions .ROUTE .COMPLEX #25 tab Cefdinir [Omnicef] 300 mg PO Q12HR #2 capsule Bumetanide [BUMEX] 1 mg PO DAILY tab Continue Vit C/E/Zn/Coppr/Lutein/Zeaxan [Preservision Areds 2 Softgel] 1 cap PO BID Escitalopram [Lexapro] 10 mg PO DAILY Apixaban [Eliquis] 5 mg PO BID 30 Days #60 tab Famotidine [Pepcid] 20 mg PO DAILY Loratadine 10 mg PO DAILY buPROPion [Wellbutrin] 150 mg PO BID Albuterol Inhaler [Ventolin Hfa Inhaler] 2 puff INHALATION RT-Q6H PRN PRN Reason: Shortness Of Breath Varenicline [Chantix Continuing Pack] 1 mg PO BID Amiodarone [Cordarone] 200 mg PO DAILY Roflumilast [Daliresp] 500 mcg PO DAILY Potassium Chloride ER [K-Dur 20] 20 meq PO DAILY #30 tab Digoxin [Lanoxin] 125 mcg PO DAILY Ferrous Sulfate [Iron (65 MG Elemental)] 325 mg PO DAILY Fluticasone Propion/Salmeterol [Wixela 500-50 Inhub] 1 puff INHALATION RT-BID Cholecalciferol [Vitamin D3 (25 Mcg = 1000 Iu)] 25 mcg PO DAILY Tiotropium 2.5 Mcg/Puff [Spiriva Respimat 2.5 Mcg] 2 puff INHALATION RT-DAILY Discontinued Bumetanide [BUMEX] 1 mg PO BID 30 Days #60 tablet predniSONE 5 mg PO DAILY Discharge Medication List Vit C/E/Zn/Coppr/Lutein/Zeaxan [Preservision Areds 2 Softgel] 1 cap PO BID 08/03/17 [History] Escitalopram [Lexapro] 10 mg PO DAILY 11/25/20 [History] Apixaban [Eliquis] 5 mg PO BID 30 Days #60 tab 11/26/20 [Rx] Amiodarone [Cordarone] 200 mg PO DAILY 12/02/20 [History] Roflumilast [Daliresp] 500 mcg PO DAILY 01/17/21 [History] Potassium Chloride ER [K-Dur 20] 20 meq PO DAILY #30 tab 01/26/21 [Rx] Digoxin [Lanoxin] 125 mcg PO DAILY 11/15/21 [History] Famotidine [Pepcid] 20 mg PO DAILY 11/15/21 [History] Ferrous Sulfate [Iron (65 MG Elemental)] 325 mg PO DAILY 05/31/22 [History] Albuterol Inhaler [Ventolin Hfa Inhaler] 2 puff INHALATION RT-Q6H PRN 04/26/23 [History] Cholecalciferol [Vitamin D3 (25 Mcg = 1000 Iu)] 25 mcg PO DAILY 04/26/23 [History] Fluticasone Propion/Salmeterol [Wixela 500-50 Inhub] 1 puff INHALATION RT-BID 04/26/23 [History] Loratadine 10 mg PO DAILY 04/26/23 [History] Tiotropium 2.5 Mcg/Puff [Spiriva Respimat 2.5 Mcg] 2 puff INHALATION RT-DAILY 04/26/23 [History] buPROPion [Wellbutrin] 150 mg PO BID 04/26/23 [History] Varenicline [Chantix Continuing Pack] 1 mg PO BID 06/19/23 [History] Bumetanide [BUMEX] 1 mg PO DAILY tab 06/24/23 [Rx] Cefdinir [Omnicef] 300 mg PO Q12HR #2 capsule 06/24/23 [Rx] predniSONE [Deltasone] See Rx Instructions .ROUTE .COMPLEX #25 tab 06/24/23 [Rx] Follow up Appointment(s)/Referral(s): Vickie Haro PAC [REFERRING] - 06/29/23 1:00 pm Chris Ware DO [Doctor of Osteopathic Medicine] - 07/11/23 1:30 pm [facility] [NON-STAFF] - Patient Instructions/Handouts: COPD (Chronic Obstructive Pulmonary Disease) (DC), Community Acquired Pneumonia (DC) Activity/Diet/Wound Care/Special Instructions: Please speak with your PCP with regards to palliative care. Discharge Disposition: HOME SELF-CARE
--- NOTE | 2023-06-24 12:57 | P.PN ---
Subjective Progress Note Date: 06/24/23 Principal diagnosis: Acute on chronic hypoxic and hypercapnic respiratory failure secondary to acute community-acquired right lower lobe pneumonia and acute exacerbation of COPD This is a 77-year-old male patient with a known history of oxygen dependent chronic obstructive pulmonary disease, chronic and ongoing tobacco dependence, alcohol use, atrial fibrillation, hyperlipidemia, hypertension, renal cancer with previous right nephrectomy, macular degeneration. He follows with Dr. Ware in our office. He has severe advanced COPD with FEV1 via 37% of predicted. He also has an AVAPS machine to utilize at night. He presented to the emergency room last evening with increasing shortness of breath cough and congestion x 3 days. He had some chest tightness and swelling of the lower extremities. Chest x-ray reveals basilar opacities right greater than left possibly representing early pneumonia. White count 15.6. Hemoglobin 10.8. Platelets 161. Sodium 139. Potassium 4.5. Bicarb 35. BUN 31. Creatinine 1.27. Glucose 146. His procalcitonin was elevated at 7.08. He is seen today in consultation in the emergency department. He has been afebrile. Hemodynami rocio stable. He is requiring BiPAP support / and 40% FiO2. He has been initiated on DuoNeb ventilations, Symbicort, Solu-Medrol. Antibiotics in the form of ceftriaxone and azithromycin. He is anticoagulated with Eliquis. Patient was reevaluated today on 06/21/23, patient remains on oxygen at 10 L high flow nasal cannula, he has BiPAP available at bedside, patient is feeling better, breathing easier, nonetheless he seems to be quite anxious and tremulous, patient states that his updrafts make him quite tremulous when he takes them. Hemodynamically the patient is stable, blood pressure is 120/67, and his heart rate is 96.Procalcitonin level is elevated WBC count is high 15.9 hemoglobin 11.4. Renal profile is abnormal with BUN of 48 creatinine 1.47, blood cultures are negative so far. No growth in the last 24 hours. Patient is empirically on Rocephin and Zithromax for his right lower lobe pneumonia. Patient was reevaluated today on 06/22/2023,Doing better he is down to 6 L high flow nasal cannula with O2 sats of 91% patient has BiPAP at bedside but is not using it. WBC count is 14.7 hemoglobin 10.9 basic metabolic profile is normal creatinine is 1.65, slightly higher compared to yesterday creatinine of 1.47 hence Bumex dose should be cut down to once a day instead of twice daily. Patient remains on Rocephin for his right lower lobe pneumonia.Procalcitonin level was high on this admission as high as 8.38 Patient was reevaluated today on 06/23/2023, patient is on 4 L nasal cannula,O2 sats is 91%, he has BiPAP at bedside, improving clinically, however the patient does not feel like he is back to his baseline. Chest x-ray is showing improvement in his right lower lobe pneumonia. Patient remains on bronchodilators and antibiotics. And I am planning to possibly clear the patient for discharge in the next 24 to 48 hours. Reevaluate today on 06/24/2023, patient is doing much better, he is on 2 L nasal cannula O2 sats is 98%, on physical examination he has hardly any wheezing, diminished breath sounds at the bases, chest x-ray yesterday showed significant improvement in his right lower lobe pneumonia, hence I am clearing the patient to be discharged home today. And should have outpatient follow-up in our office. Objective - Vital Signs Vital signs: Vital Signs Temp 97.6 F 06/24/23 11:10 Pulse 81 06/24/23 11:10 Resp 18 06/24/23 11:10 BP 152/78 06/24/23 11:10 Pulse Ox 91 L 06/24/23 11:10 FiO2 40 06/21/23 04:00 Intake & Output 06/23/23 06/24/23 06/24/23 18:59 06:59 18:59 Intake Total 838 540 240 Output Total 1999 1500 Balance -1162 -960 240 Weight 102.1 kg Intake: Oral 838 540 240 Output: Urine 1999 1499 Other: Voiding Method Bedside Commode Bedside Commode Bedside Commode Urinal Urinal Urinal # Voids 1 # Bowel Movements 1 - Exam General: The patient is awake and alert, on 2 L nasal cannula Skin: Skin is warm and dry and no rashes or lesions are noted. Eye: Pupils are equal, round and reactive to light, extra-ocular movements are intact; there is normal conjunctiva bilaterally. Ears, nose, mouth and throat: There are moist mucous membranes and no oral lesions. Neck: The neck is supple, there is no tenderness or JVD. Cardiovascular: There is a regular rate and rhythm. No murmur, rub or gallop is appreciated. Respiratory: Clear bilaterally no rhonchi no wheezes Gastrointestinal: Soft, non-distended, non-tender abdomen without masses or organomegaly noted. There is no rebound or guarding present. Bowel sounds are unremarkable. Back: There is no tenderness to palpation in the midline. There is no obvious deformity. Musculoskeletal: Normal ROM, no tenderness, There is no pedal edema. There is no calf tenderness or swelling. No cords were appreciated. Neurological: CN II-XII intact, Cranial nerves III through XII are intact. There are no obvious motor or sensory deficits. Coordination appears grossly intact. Speech is normal. Psychiatric: Cooperative, appropriate mood & affect, normal judgment. - Labs CBC & Chem 7: 06/24/23 07:41 06/24/23 07:41 Labs: Abnormal Lab Results - Last 24 Hours (Table) 06/23/23 06/23/23 06/24/23 Range/Units 16:53 19:27 05:47 WBC (3.8-10.6) k/uL RBC (4.30-5.90) m/uL Hgb (13.0-17.5) gm/dL MCHC (31.0-37.0) g/dL Neutrophils # (1.3-7.7) k/uL Lymphocytes # (1.0-4.8) k/uL Sodium (137-145) mmol/L Chloride (98-107) mmol/L Carbon Dioxide (22-30) mmol/L BUN (9-20) mg/dL Creatinine (0.66-1.25) mg/dL Glucose (74-99) mg/dL POC Glucose (mg/dL) 151 H 181 H 142 H (70-110) mg/dL 06/24/23 06/24/23 06/24/23 Range/Units 07:41 07:41 11:14 WBC 15.9 H (3.8-10.6) k/uL RBC 4.00 L (4.30-5.90) m/uL Hgb 12.2 L (13.0-17.5) gm/dL MCHC 30.4 L (31.0-37.0) g/dL Neutrophils # 14.7 H (1.3-7.7) k/uL Lymphocytes # 0.6 L (1.0-4.8) k/uL Sodium 135 L (137-145) mmol/L Chloride 95 L (98-107) mmol/L Carbon Dioxide 38 H (22-30) mmol/L BUN 42 H (9-20) mg/dL Creatinine 1.41 H (0.66-1.25) mg/dL Glucose 162 H (74-99) mg/dL POC Glucose (mg/dL) 134 H (70-110) mg/dL Assessment and Plan Assessment: Impression: Acute on chronic hypoxic and hypercapnic respiratory failure, multifactorial Acute right lower lobe pneumonia, community-acquired, being treated with Rocephin Acute exacerbation of COPD Chronic atrial fibrillation on anticoagulation therapy/Eliquis History of obstructive sleep apnea with home AVAPS machine Benign essential hypertension History of pulmonary hypertension History of renal cell carcinoma and previous right nephrectomy in 2006 History of back melanoma And history of detached retina. Recommendation: Will clear the patient for discharge home today Prednisone to be tapered over 2 weeks Continue antibiotics orally for few more days. Continue home meds, avoid nephrotoxic medication Outpatient follow-up Time with Patient: Less than 30
== END 2023-06-24 14:42 | disposition home health service (06) | DRG 871 ==
LOC: EC 18:01 → 3SCARD 19:34
PROVIDERS: ADMIT Internal Medicine; ATTEND Internal Medicine
PROC: 5A09457 Assistance with Respiratory Ventilation, 24-96 Consecutive Hours, Continuous Positive Airway Pressure (ICD-10-PCS; principal; 2023-06-19)
DX: A41.9 Sepsis, unspecified organism (principal); J18.9 Pneumonia, unspecified organism; J96.21 Acute and chronic respiratory failure with hypoxia; J96.22 Acute and chronic respiratory failure with hypercapnia; E87.20 Acidosis, unspecified; N17.9 Acute kidney failure, unspecified; J44.0 Chronic obstructive pulmonary disease with (acute) lower respiratory infection; J44.1 Chronic obstructive pulmonary disease with (acute) exacerbation; I27.29 Other secondary pulmonary hypertension; Z99.81 Dependence on supplemental oxygen; I48.0 Paroxysmal atrial fibrillation; H35.3210 Exudative age-related macular degeneration, right eye, stage unspecified; J43.9 Emphysema, unspecified; I10 Essential (primary) hypertension; F32.A Depression, unspecified; I45.10 Unspecified right bundle-branch block; E87.70 Fluid overload, unspecified; M19.90 Unspecified osteoarthritis, unspecified site; H54.8 Legal blindness, as defined in USA; E78.5 Hyperlipidemia, unspecified; F17.200 Nicotine dependence, unspecified, uncomplicated; Z71.6 Tobacco abuse counseling; G47.33 Obstructive sleep apnea (adult) (pediatric); H91.90 Unspecified hearing loss, unspecified ear; Z79.01 Long term (current) use of anticoagulants; Z79.51 Long term (current) use of inhaled steroids; Z79.52 Long term (current) use of systemic steroids; Z79.899 Other long term (current) drug therapy; Z85.820 Personal history of malignant melanoma of skin; Z85.528 Personal history of other malignant neoplasm of kidney; Z90.5 Acquired absence of kidney; Z71.3 Dietary counseling and surveillance
CPT/HCPCS: 36415; 71045; 80048; 80053; 82803; 83605; 83735; 83880; 84145; 84484; 85025; 85027; 85610; 85730; 87040; 87636; 93005; 94640; 94660; 94760; 96365; 96366; 96368; 96375; 96376; 99291

== ENCOUNTER 2024-02-15 09:38 | Inpatient (IN) | payer OTHER, MEDICARE ==
--- NOTE | 2024-02-15 10:19 | ED ---
General Adult HPI - General Chief complaint: Shortness of Breath Stated complaint: SOB Time Seen by Provider: 02/15/24 09:50 Source: patient, RN notes reviewed, old records reviewed Mode of arrival: wheelchair Limitations: no limitations - History of Present Illness Initial comments: Is a 78-year-old male who presents to the emergency department complaining of difficulty breathing for the last few days. Patient has a history of COPD and high blood pressure. Patient denies any recent fever chills or cough. Patient states anytime he gets up and moves around he feels like he is very short of breath. Patient denies chest pain or palpitation. Patient states he does have a history of A-fib. Patient is on blood thinners. Patient still smokes occ asionally. Patient states he is also noticed a little bit of increased edema. Patient denies any abdominal pain. - Related Data Home Medications Medication Instructions Recorded Confirmed Vit C/E/Zn/Coppr/Lutein/Zeaxan 1 cap PO BID 08/03/17 06/19/23 [Preservision Areds 2 Softgel] Escitalopram [Lexapro] 10 mg PO DAILY 11/25/20 06/19/23 Amiodarone [Cordarone] 200 mg PO DAILY 12/02/20 06/19/23 Roflumilast [Daliresp] 500 mcg PO DAILY 01/17/21 06/19/23 Digoxin [Lanoxin] 125 mcg PO DAILY 11/15/21 06/19/23 Famotidine [Pepcid] 20 mg PO DAILY 11/15/21 06/19/23 Ferrous Sulfate [Iron (65 MG 325 mg PO DAILY 05/31/22 06/19/23 Elemental)] Albuterol Inhaler [Ventolin Hfa 2 puff INHALATION RT-Q6H PRN 04/26/23 06/19/23 Inhaler] Cholecalciferol [Vitamin D3 (25 25 mcg PO DAILY 04/26/23 06/19/23 Mcg = 1000 Iu)] Fluticasone Propion/Salmeterol 1 puff INHALATION RT-BID 04/26/23 06/19/23 [Wixela 500-50 Inhub] Loratadine 10 mg PO DAILY 04/26/23 06/19/23 Tiotropium 2.5 Mcg/Puff [Spiriva 2 puff INHALATION RT-DAILY 04/26/23 06/19/23 Respimat 2.5 Mcg] buPROPion [Wellbutrin] 150 mg PO BID 04/26/23 06/19/23 Varenicline [Chantix Continuing 1 mg PO BID 06/19/23 06/19/23 Pack] Previous Rx's Medication Instructions Recorded Apixaban [Eliquis] 5 mg PO BID 30 Days #60 tab 11/26/20 Potassium Chloride ER [K-Dur 20] 20 meq PO DAILY #30 tab 01/26/21 Bumetanide [BUMEX] 1 mg PO DAILY tab 06/24/23 Cefdinir [Omnicef] 300 mg PO Q12HR #2 capsule 06/24/23 predniSONE [Deltasone] See Rx Instructions .ROUTE 06/24/23 .COMPLEX #25 tab Allergies Allergy/AdvReac Type Severity Reaction Status Date / Time atorvastatin [From Lipitor] AdvReac Muscle pain Verified 02/15/24 09:44 Review of Systems ROS Statement: Those systems with pertinent positive or pertinent negative responses have been documented in the HPI. ROS Other: All systems not noted in ROS Statement are negative. Past Medical History Past Medical History: Atrial Fibrillation, Cancer, COPD, Eye Disorder, Hearing Disorder / Deafness, Hyperlipidemia, Hypertension, Osteoarthritis (OA) Additional Past Medical History / Comment(s): Emphysema (takes inhalers and uses oxygen at home). Hx Kidney Cancer in 2006, R nephrectomy.q Left eye detached retina. Wet Macular Degeneration right eye. Hx Melanoma on back. Bilateral hearing aid use, legally blind. History of Any Multi-Drug Resistant Organisms: None Reported Past Surgical History: Back Surgery Additional Past Surgical History / Comment(s): Right kidney removed. Left eye surgery X3 for detacted retina. Bilateral cataract surgery. Mohs surgery thoracic spine for melanoma.plate in right arm, bilateral eye lids lifted Past Anesthesia/Blood Transfusion Reactions: Previous Problems w/ Anesthesia Additional Past Anesthesia/Blood Transfusion Reaction / Comment(s): States low heart rate, light-headed and low BP X1 with anesthesia. "Got broke vocal cord and could not talk for 2 months after anesthesia one time." Past Psychological History: Anxiety, Depression Smoking Status: Current every day smoker Past Alcohol Use History: Occasional Past Drug Use History: None Reported - Past Family History Mother Family Medical History: Cancer Additional Family Medical History / Comment(s): Brain Cancer. Father Family Medical History: CVA/TIA General Exam - General Exam Comments Initial Comments: GENERAL: Patient is well-developed and well-nourished. Patient is nontoxic and well- hydrated and is in mild distress. ENT: Neck is soft and supple. No significant lymphadenopathy is noted. Oropharynx is clear. Moist mucous membranes. Neck has full range of motion without eliciting any pain. EYES: The sclera were anicteric and conjunctiva were pink and moist. Extraocular movements were intact and pupils were equal round and reactive to light. Eyelids were unremarkable. PULMONARY: Diminished breath sounds throughout CARDIOVASCULAR: There is a regular rate and rhythm without any murmurs gallops or rubs. ABDOMEN: Soft and nontender with normal bowel sounds. No palpable organomegaly was noted. There is no palpable pulsatile mass. SKIN: Skin is clear with no lesions or rashes and otherwise unremarkable. NEUROLOGIC: Patient is alert and oriented x3. Cranial nerves II through XII are grossly intact. Motor and sensory are also intact. Normal speech, volume and content. Symmetrical smile. MUSCULOSKELETAL: Normal extremities with adequate strength and full range of motion. No lower extremity swelling or edema. No calf tenderness. LYMPHATICS: No significant lymphadenopathy is noted PSYCHIATRIC: Normal psychiatric evaluation. Limitations: no limitations Course Vital Signs 02/15/24 02/15/24 02/15/24 09:44 10:53 11:15 Temperature 98.3 F Pulse Rate 79 70 70 Respiratory 22 Rate Blood Pressure 126/59 O2 Sat by Pulse 89 L Oximetry Medical Decision Making - Medical Decision Making EKG is interpreted by me. EKG shows a sinus rhythm at 75 bpm MS interval 134 QRS is 149 QT interval 360 QTc is 389. Patient has a right bundle branch block. Was pt. sent in by a medical professional or institution (, PA, [employer], urgent care, hospital, or intermediate...) When possible be specific @ -No Did you speak to anyone other than the patient for history (EMS, parent, family, police, friend...)? What history was obtained from this source @ -No Did you review nursing and triage notes (agree or disagree)? Why? @ -I reviewed and agree with nursing and triage notes Were old charts reviewed (outside hosp., previous admission, EMS record, old EKG, old radiological studies, urgent care reports/EKG's, intermediate records)? Report findings @ -No old charts were reviewed Differential Diagnosis? @ -Differential Dyspnea: Coronary syndrome, arrhythmia, tamponade, asthma, COPD, pulmonary embolism, pneumonia, pneumothorax, pulmonary effusion, anaphylaxis, diabetic ketoacidosis, flailed chest, pulmonary contusion, diaphragmatic rupture, anemia, neuromuscular, this is not meant to be an all-inclusive list. EKG interpreted by me (3pts min.). @ -As above X-rays interpreted by me (1pt min.). @ -Chest x-ray shows no acute abnormality CT interpreted by me (1pt min.). @ -None done U/S interpreted by me (1pt. min.). @ -None done What testing was considered but not performed or refused? (CT, X-rays, U/S, labs)? Why? @ -None What meds were considered but not given or refused? Why? @ -None Did you discuss the management of the patient with other professionals (professionals i.e. , PA, [employer], lab, RT, psych nurse, social sciences research scientist, used car sales supervisor, teacher, environmental compliance officer, supportive employment case manager)? Give summary @ -I spoke with [facility] emergency department physicians and they agreed admit the patient admit the patient wrote admitting orders Was smoking cessation discussed for >3mins.? @ -No Was critical care preformed (if so, how long)? @ -No Were there social determinants of health that impacted care today? How? (Homelessness, low income, unemployed, alcoholism, drug addiction, transportation, low edu. Level, literacy, decrease access to med. care, prison, rehab)? @ -No Was there de-escalation of care discussed even if they declined (Discuss DNR or withdrawal of care, Hospice)? DNR status @ -No What co-morbidities impacted this encounter? (DM, HTN, Smoking, COPD, CAD, Cancer, CVA, ARF, Chemo, Hep., AIDS, mental health diagnosis, sleep apnea, morbid obesity)? @ -None Was patient admitted / discharged? Hospital course, mention meds given and route, prescriptions, significant lab abnormalities, going to OR and other pertinent info. @ -Patient received 2 albuterol treatments with Atrovent. Patient also received steroids. I went back into reevaluate the patient he stated he was feeling better as long as he sat still. Patient will be admitted to [facility] emergency department physicians. Patient desats into the 80s when he ambulates Undiagnosed new problem with uncertain prognosis? @ -No Drug Therapy requiring intensive monitoring for toxicity (Heparin, Nitro, Ins ulin, Cardizem)? @ -No Were any procedures done? @ -No Diagnosis/symptom? @ -COPD exacerbation Acute, or Chronic, or Acute on Chronic? @ -Acute Uncomplicated (without systemic symptoms) or Complicated (systemic symptoms)? @ -Complicated Side effects of treatment? @ -No Exacerbation, Progression, or Severe Exacerbation? @ -No Poses a threat to life or bodily function? How? (Chest pain, USA, SD, pneumonia, PE, COPD, DKA, ARF, appy, cholecystitis, CVA, Diverticulitis, Homicidal, Suicidal, threat to staff... and all critical care pts) @ -Yes this can lead to hypoxia and endorgan dysfunction - Lab Data Result diagrams: 02/15/24 10:11 02/15/24 10:11 Lab Results 02/15/24 02/15/24 02/15/24 Range/Units 10:11 10:11 10:11 WBC 5.2 (3.8-10.6) k/uL RBC 3.70 L (4.30-5.90) m/uL Hgb 11.8 L (13.0-17.5) gm/dL Hct 36.6 L (39.0-53.0) % MCV 98.8 (80.0-100.0) fL MCH 31.9 (25.0-35.0) pg MCHC 32.3 (31.0-37.0) g/dL RDW 13.7 (11.5-15.5) % Plt Count 154 (150-450) k/uL MPV 7.7 Neutrophils % 61 % Lymphocytes % 20 % Monocytes % 8 % Eosinophils % 8 % Basophils % 1 % Neutrophils # 3.2 (1.3-7.7) k/uL Lymphocytes # 1.0 (1.0-4.8) k/uL Monocytes # 0.4 (0-1.0) k/uL Eosinophils # 0.4 (0-0.7) k/uL Basophils # 0.0 (0-0.2) k/uL PT 10.1 (10.0-12.5) sec INR 0.9 (<1.2) APTT 24.2 (22.0-30.0) sec D-Dimer 0.24 (<0.60) mg/L FEU Sodium 140 (137-145) mmol/L Potassium 4.4 (3.5-5.1) mmol/L Chloride 95 L (98-107) mmol/L Carbon Dioxide 40 H (22-30) mmol/L Anion Gap 5 mmol/L BUN 18 (9-20) mg/dL Creatinine 1.11 (0.66-1.25) mg/dL Est GFR (CKD-EPI)AfAm 73 (>60 ml/min/1.73 sqM) Est GFR (CKD-EPI)NonAf 63 (>60 ml/min/1.73 sqM) Glucose 87 (74-99) mg/dL Plasma Lactic Acid Fabiano (0.7-2.0) mmol/L Calcium 9.3 (8.4-10.2) mg/dL Magnesium 1.9 (1.6-2.3) mg/dL Total Bilirubin 0.5 (0.2-1.3) mg/dL AST 26 (17-59) U/L ALT 16 (4-49) U/L Alkaline Phosphatase 72 (38-126) U/L Troponin I (0.000-0.034) ng/mL NT-Pro-B Natriuret Pep 323 pg/mL Total Protein 6.1 L (6.3-8.2) g/dL Albumin 3.6 (3.5-5.0) g/dL 02/15/24 02/15/24 Range/Units 10:11 10:11 WBC (3.8-10.6) k/uL RBC (4.30-5.90) m/uL Hgb (13.0-17.5) gm/dL Hct (39.0-53.0) % MCV (80.0-100.0) fL MCH (25.0-35.0) pg MCHC (31.0-37.0) g/dL RDW (11.5-15.5) % Plt Count (150-450) k/uL MPV Neutrophils % % Lymphocytes % % Monocytes % % Eosinophils % % Basophils % % Neutrophils # (1.3-7.7) k/uL Lymphocytes # (1.0-4.8) k/uL Monocytes # (0-1.0) k/uL Eosinophils # (0-0.7) k/uL Basophils # (0-0.2) k/uL PT (10.0-12.5) sec INR (<1.2) APTT (22.0-30.0) sec D-Dimer (<0.60) mg/L FEU Sodium (137-145) mmol/L Potassium (3.5-5.1) mmol/L Chloride (98-107) mmol/L Carbon Dioxide (22-30) mmol/L Anion Gap mmol/L BUN (9-20) mg/dL Creatinine (0.66-1.25) mg/dL Est GFR (CKD-EPI)AfAm (>60 ml/min/1.73 sqM) Est GFR (CKD-EPI)NonAf (>60 ml/min/1.73 sqM) Glucose (74-99) mg/dL Plasma Lactic Acid Fabiano 0.5 L (0.7-2.0) mmol/L Calcium (8.4-10.2) mg/dL Magnesium (1.6-2.3) mg/dL Total Bilirubin (0.2-1.3) mg/dL AST (17-59) U/L ALT (4-49) U/L Alkaline Phosphatase (38-126) U/L Troponin I <0.012 (0.000-0.034) ng/mL NT-Pro-B Natriuret Pep pg/mL Total Protein (6.3-8.2) g/dL Albumin (3.5-5.0) g/dL Critical Care Time Critical Care Time: Yes Total Critical Care Time: 35 Disposition Clinical Impression: COPD with acute exacerbation Disposition: ADMITTED IP TO THIS HOSP Referrals: [facility],Clinic [Primary Care Provider] - 1-2 days Time of Disposition: 12:01
[2024-02-15 10:34] LABS: ALT 16 U/L (4-49); AST 26 U/L (17-59); African American GFR (CKD) 73 (>60 ml/min/1.73 sqM); Albumin 3.6 g/dL (3.5-5.0); Alkaline Phosphatase 72 U/L (38-126); Anion Gap 5 mmol/L; Blood Urea Nitrogen 18 mg/dL (9-20); Calcium 9.3 mg/dL (8.4-10.2); Chloride 95 mmol/L (98-107); Glucose 87 mg/dL (74-99); Magnesium 1.9 mg/dL (1.6-2.3); Non-African American GFR(CKD) 63 (>60 ml/min/1.73 sqM); Potassium 4.4 mmol/L (3.5-5.1); Sodium 140 mmol/L (137-145); Total Bilirubin 0.5 mg/dL (0.2-1.3); Total Protein 6.1 g/dL (6.3-8.2)
[2024-02-15] MEDS: methylPREDNISolone SOD SUCCI 125 MG/2 ML VIAL IV STA (10:36)
[2024-02-15 10:42] LABS: NT-Pro-B-Type Natriuretic Pept 323 pg/mL
[2024-02-15 10:47] LABS: Carbon Dioxide 40 mmol/L (22-30)
--- NOTE | 2024-02-15 10:50 | XR ---
EXAMINATION TYPE: XR chest 2V DATE OF EXAM: 02/15/2024 10:34 AM COMPARISON: Chest radiographs from 06/23/2023 TECHNIQUE: XR chest 2V Frontal and lateral views of the chest. CLINICAL INDICATION:Male, 78 years old with history of difficulty breathing; FINDINGS: Lungs/Pleura: There is flattening of the diaphragm with increased lucency of the lungs. No evidence o f pneumothorax or pleural effusion. Bibasilar patchy airspace opacities. Pulmonary vascularity: Unremarkable. Heart/mediastinum: Cardiomediastinal silhouette is unremarkable. Musculoskeletal: No acute osseous pathology. IMPRESSION: 1. Bibasilar patchy airspace opacities concerning for pneumonia. 2. COPD changes. [facility], , 02/15/2024 10:48 AM
[2024-02-15] MEDS: ALBUTEROL NEBULIZED 2.5 MG/3 ML INHALATION STA (10:53)
[2024-02-15] MEDS: IPRATROPIUM 0.5 MG/2.5 ML NEBU INHALATION STA (10:53)
[2024-02-15 11:03] LABS: INR 0.9 (<1.2); Partial Thromboplastin Time 24.2 sec (22.0-30.0); Prothrombin Time 10.1 sec (10.0-12.5)
[2024-02-15 11:06] LABS: Basophils % (A) 1 %; Eosinophils # (A) 0.4 k/uL (0-0.7); Eosinophils % (A) 8 %; HCT 36.6 % (39.0-53.0); HGB 11.8 gm/dL (13.0-17.5); Lymphocytes % (A) 20 %; MCH 31.9 pg (25.0-35.0); MCHC 32.3 g/dL (31.0-37.0); MCV 98.8 fL (80.0-100.0); Mean Platelet Volume 7.7; Monocytes # (A) 0.4 k/uL (0-1.0); Monocytes % (A) 8 %; Neutrophils # (A) 3.2 k/uL (1.3-7.7); Neutrophils % (A) 61 %; Platelet Count 154 k/uL (150-450); RDW 13.7 % (11.5-15.5); WBC 5.2 k/uL (3.8-10.6)
[2024-02-15] MEDS ORDERED: NALOXONE 0.4 MG/ML 1 ML VIAL IVP PRN (12:01)
[2024-02-15] MEDS ORDERED: IPRATROPIUM-ALBUTEROL 3 ML NEB INHALATION PRN (12:01)
[2024-02-15] MEDS: cefTRIAXone IN SWFI 1,000 MG/10 ML SYRINGE IVP STA (12:21)
[2024-02-15] MEDS: ACETAMINOPHEN TAB 325 MG TAB PO PRN (15:09)
[2024-02-15] MEDS: IPRATROPIUM-ALBUTEROL 3 ML NEB INHALATION SCH (16:20)
[2024-02-15] MEDS: methylPREDNISolone SOD SUCCI 125 MG/2 ML VIAL IV SCH (17:22)
[2024-02-15] MEDS ORDERED: ONDANSETRON 4 MG/2 ML VIAL IVP PRN (18:10)
--- NOTE | 2024-02-15 18:16 | P.HPIM ---
History of Present Illness H&P Date: 02/15/24 78-year-old male with PMH of chronic respiratory failure and COPD on 4 L nasal cannula, hypertension, atrial fibrillation, dyslipidemia, systolic CHF presents the ED for multiple complaints. He reports progressively worsening shortness of breath over the past 2 weeks. He reports a constellation of other symptoms during this time including bitemporal headache, increased anxiety, and weakness which he attributes to build up of CO2 in his body. He does have a BiPAP at home which he uses occasionally. Other complaints include vague abdominal discomfort which he is not able to describe effectively. He also reports chronic lower back pain which he relates to Sciatica. He denies any chest pain, palpitations, lightheadedness, changes in urination or bowel habits. In the ED he underwent extensive evaluation. BP 126/59, HR 79, RR 22, T 98.3F, 89% on 4L NC. CBC, Coag panel, CMP significant for RBC 3.7, Hg 11.8, Hct 36.6, Cl 95, bicarb 40, total protein 6.1. Troponin < 0.012. BNP 323. Mag 1.9. COVID, RSV, Flu negative. EKG sinus rhythm with RBBB. CXR concerning for bibasilar opacities. He is admitted for further workup and management. General: non toxic, no distress, appears at stated age Derm: warm, dry Head: atraumatic, normocephalic, symmetric Eyes: EOMI, no lid lag, anicteric sclera Mouth: no lip lesion, mucus membranes moist Cardiovascular: S1 S2 reg. No murmurs, rubs, gallops Lungs: Dereased BS bilaterally with scattered expiratory wheezing, no accessory muscle use Ext: no gross muscle atrophy, no edema, no contractures Neuro: no focal neuro deficits Psych: Alert, oriented, appropriate affect Based on my assessment of this patient, this patient meets a high complexity level of care. Acute on chronic hypoxic respiratory failure: D-Dimer 0.24 low concerns for PE. BNP 323 low concerns for CHF exacerbation. Possible PNA on CXR. Telemetry monitoring. Acute COPD exacerbation: DuoNeb QID scheduled and Q2H PRN. SoluMedrol 60 mg IV Q6H. Symbicort 2 INH BID. Pulmonary consulted. Community Acquired Pneumonia: Rocephin 2g IV QD + Azithromycin 500 mg PO QD. Obtain Procal and sputum Cx. Metabolic alkalosis: Appears at baseline. Likely compensatory. BiPAP ordered QHS. Generalized weakness: PT and OT consult. Fall precautions. Atrial fibrillation: Amiodarone 200 mg PO QD. Eliquis 5 mg PO BID. Digoxin 125 mcg PO QD. Systolic CHF: Bumex 1 mg PO BID. CODE STATUS: FULL CODE. DVT Prophylaxis: Eliquis. GI Prophylaxis: Designated medical POA if patient is not able to make medical decisions for themselves: I have reviewed the following tax credit leasing consultant notes: ED note. I have reviewed the results of the following tests: As above. I have ordered the following tests: As above. I have discussed the care of this patient with the following independent historian: RN. I have independently interpreted the following test below: EKG. I have discussed the management of this patient with the following physician: Past Medical History Past Medical History: Atrial Fibrillation, Cancer, COPD, Eye Disorder, Hearing Disorder / Deafness, Hyperlipidemia, Hypertension, Osteoarthritis (OA) Additional Past Medical History / Comment(s): Emphysema (takes inhalers and uses oxygen at home). Hx Kidney Cancer in 2006, R nephrectomy.q Left eye detached retina. Wet Macular Degeneration right eye. Hx Melanoma on back. Bilateral hearing aid use, legally blind. History of Any Multi-Drug Resistant Organisms: None Reported Past Surgical History: Back Surgery Additional Past Surgical History / Comment(s): Right kidney removed. Left eye surgery X3 for detacted retina. Bilateral cataract surgery. Mohs surgery thoracic spine for melanoma.plate in right arm, bilateral eye lids lifted Past Anesthesia/Blood Transfusion Reactions: Previous Problems w/ Anesthesia Additional Past Anesthesia/Blood Transfusion Reaction / Comment(s): States low heart rate, light-headed and low BP X1 with anesthesia. "Got broke vocal cord and could not talk for 2 months after anesthesia one time." Past Psychological History: Anxiety, Depression Smoking Status: Current every day smoker Past Alcohol Use History: Occasional Additional Past Alcohol Use History / Comment(s): States that he drinks Past Drug Use History: None Reported Additional Drug Use History / Comment(s): Quit smoking 12/27 - Past Family History Mother Family Medical History: Cancer Additional Family Medical History / Comment(s): Brain Cancer. Father Family Medical History: CVA/TIA Medications and Allergies Home Medications Medication Instructions Recorded Confirmed Type Vit C/E/Zn/Coppr/Lutein/Zeaxan 1 cap PO BID 08/03/17 02/15/24 History [Preservision Areds 2 Softgel] Escitalopram [Lexapro] 10 mg PO DAILY 11/25/20 02/15/24 History Apixaban [Eliquis] 5 mg PO BID 30 Days #60 tab 11/26/20 02/15/24 Rx Amiodarone [Cordarone] 200 mg PO DAILY 12/02/20 02/15/24 History Roflumilast [Daliresp] 500 mcg PO DAILY 01/17/21 02/15/24 History Potassium Chloride ER [K-Dur 20] 20 meq PO DAILY #30 tab 01/26/21 02/15/24 Rx Digoxin [Lanoxin] 125 mcg PO DAILY 11/15/21 02/15/24 History Albuterol Inhaler [Ventolin Hfa 2 puff INHALATION RT-Q6H PRN 04/26/23 02/15/24 History Inhaler] Cholecalciferol [Vitamin D3 (25 25 mcg PO DAILY 04/26/23 02/15/24 History Mcg = 1000 Iu)] Fluticasone Propion/Salmeterol 1 puff INHALATION RT-BID 04/26/23 02/15/24 History [Wixela 500-50 Inhub] Tiotropium 2.5 Mcg/Puff [Spiriva 2 puff INHALATION RT-DAILY 04/26/23 02/15/24 History Respimat 2.5 Mcg] buPROPion [Wellbutrin] 150 mg PO BID 04/26/23 02/15/24 History Albuterol Nebulized [Ventolin 2.5 mg INHALATION RT-Q4H 02/15/24 02/15/24 History Nebulized] Bumetanide [BUMEX] 1 mg PO BID 02/15/24 02/15/24 History Carboxymethylcellulose Sodium 1 drop BOTH EYES Q6H PRN 02/15/24 02/15/24 History [Refresh Tears] Gabapentin [Neurontin] 200 mg PO BID 02/15/24 02/15/24 History Lidocaine 5% Patch [Lidoderm] 1 patch TRANSDERM DAILY 02/15/24 02/15/24 History traZODone HCL [Desyrel] 50 mg PO HS 02/15/24 02/15/24 History Allergies Allergy/AdvReac Type Severity Reaction Status Date / Time atorvastatin [From Lipitor] AdvReac Muscle pain Verified 02/15/24 12:14 Physical Exam Vitals: Vital Signs Temp Pulse Pulse Resp BP BP Pulse Ox 02/15/24 16:36 70 02/15/24 16:20 72 02/15/24 15:07 98.1 F 76 18 129/62 95 02/15/24 14:31 79 16 128/62 91 L 02/15/24 12:00 75 18 135/64 99 02/15/24 11:30 79 22 119/74 100 02/15/24 11:15 70 02/15/24 11:00 67 18 118/58 100 02/15/24 10:53 70 02/15/24 09:44 98.3 F 79 22 126/59 89 L Intake and Output 02/15/24 02/15/24 02/15/24 06:59 14:59 22:59 Other: Weight 107.048 kg Results CBC & Chem 7: 02/15/24 10:11 02/15/24 10:11 Labs: Abnormal Lab Results - Last 24 Hours (Table) 02/15/24 02/15/24 02/15/24 Range/Units 10:11 10:11 10:11 RBC 3.70 L (4.30-5.90) m/uL Hgb 11.8 L (13.0-17.5) gm/dL Hct 36.6 L (39.0-53.0) % Chloride 95 L (98-107) mmol/L Carbon Dioxide 40 H (22-30) mmol/L Plasma Lactic Acid Fabiano 0.5 L (0.7-2.0) mmol/L Total Protein 6.1 L (6.3-8.2) g/dL Thrombosis Risk Factor Assmnt - Choose All That Apply Any of the Below Risk Factors Present?: No Other Risk Factors: Yes Each Risk Factor Represents 3 Points: Age 75 years or older Thrombosis Risk Factor Assessment Total Risk Factor Score: 3 Thrombosis Risk Factor Assessment Level: Moderate Risk
[2024-02-15] MEDS: SYMBICORT 160-4.5 MCG INHALER INHALATION SCH (19:45)
[2024-02-15] MEDS: GABAPENTIN 100 MG CAP PO SCH (21:36)
[2024-02-15] MEDS: APIXABAN 5 MG TAB PO SCH (21:37)
[2024-02-15] MEDS: traZODone HCL 50 MG TAB PO SCH (21:37)
[2024-02-15] MEDS: BUMETANIDE 1 MG TAB PO SCH (21:44)
[2024-02-15] MEDS: buPROPion 75 MG TAB PO SCH (21:44)
--- NOTE | 2024-02-16 03:09 | P.CNPUL ---
History of Present Illness Consult date: 02/16/24 Requesting physician: Marcos Ferris Reason for consult: COPD Chief complaint: Worsening exertional dyspnea History of present illness: Patient is 78-year-old male with past medical history significant for COPD, current ongoing tobacco dependence, chronic home oxygen on 4 L/min nasal cannula , atrial fibrillation, hyperlipidemia, hypertension, renal cancer with previous right nephrectomy. He follows in the pulmonary office with Dr. Ware. He has severe COPD with an FEV1 37% of predicted. Also, known to have obstructive sleep apnea using AVAPS machine at night. Patient presents with acute on top of chronic shortness of breath. Mostly worse on exertion. He becomes severely short of breath with ambulation to the bathroom. Also, reports trouble concentrating and sleepiness. Denies any infectious symptoms. No fevers, cough, sputum production, chest pain, wheezing. Endorsed some generalized chest tightness. Nonlocalized. Nonradiating. Denies worsening lower extremity swelling. Denies orthopnea or PND. Patient is currently sitting in bedside recliner, on 4 L/min nasal cannula, does not appear to be any acute respiratory distress. Hospital provided CPAP is at bedside. Chest x-ray shows some possible subtle bibasilar patchy opacities. In my opinion, felt to be more c hronic in nature. Afebrile. CBC unremarkable without leukocytosis. D-dimer 0.24. CMP: Sodium 140, potassium 4.4, chloride 95, serum bicarb 40, BUN 18, creatinine 1.11, glucose 87. Lactic 0.5. LFTs unremarkable. NT proBNP 323. Troponin less than 0.012. EKG: Normal sinus rhythm, rate 75 bpm, RBB. Negative for influenza, RSV, COVID. Patient does continue to smoke a few cigarettes per week. Also, his smokes indoors and is exposed to significant secondhand smoke. Patient was empirically started on antibiotics in the emergency department. Procalcitonin level pending. Nontoxic appearance, stable. Review of Systems Constitutional: Reports daytime sleepiness, Reports fatigue, Denies chills, Denies fever, Denies weight gain, Denies weight loss Ears, nose, mouth and throat: Denies headache, Denies nasal congestion, Denies nasal discharge, Denies post-nasal drip, Denies sinus pain, Denies sinus pressure, Denies sore throat Cardiovascular: Reports dyspnea on exertion, Denies chest pain, Denies leg edema, Denies orthopnea, Denies palpitations, Denies paroxysmal nocturnal dyspnea, Denies syncope Respiratory: Reports as per HPI Gastrointestinal: Denies abdominal pain, Denies change in bowel habits, Denies constipation, Denies diarrhea, Denies loss of appetite, Denies nausea, Denies vomiting Genitourinary: Denies dysuria Musculoskeletal: Denies limitation of motion Integumentary: Denies rash Neurological: Reports memory loss, Denies balance difficulties, Denies confusion, Denies head injury, Denies headaches, Denies lack of coordination, Denies numbness, Denies paralysis, Denies seizures, Denies syncope, Denies visual changes Psychiatric: Denies anxiety, Denies depression Past Medical History Past Medical History: Atrial Fibrillation, Cancer, COPD, Eye Disorder, Hearing Disorder / Deafness, Hyperlipidemia, Hypertension, Osteoarthritis (OA) Additional Past Medical History / Comment(s): Emphysema (takes inhalers and uses oxygen at home). Hx Kidney Cancer in 2006, R nephrectomy.q Left eye detached retina. Wet Macular Degeneration right eye. Hx Melanoma on back. Bilateral hearing aid use, legally blind. History of Any Multi-Drug Resistant Organisms: None Reported Past Surgical History: Back Surgery Additional Past Surgical History / Comment(s): Right kidney removed. Left eye surgery X3 for detacted retina. Bilateral cataract surgery. Mohs surgery thoraci c spine for melanoma.plate in right arm, bilateral eye lids lifted Past Anesthesia/Blood Transfusion Reactions: Previous Problems w/ Anesthesia Additional Past Anesthesia/Blood Transfusion Reaction / Comment(s): States low heart rate, light-headed and low BP X1 with anesthesia. "Got broke vocal cord and could not talk for 2 months after anesthesia one time." Past Psychological History: Anxiety, Depression Smoking Status: Current every day smoker Past Alcohol Use History: Occasional Additional Past Alcohol Use History / Comment(s): States that he drinks Past Drug Use History: None Reported Additional Drug Use History / Comment(s): Quit smoking 12/27 - Past Family History Mother Family Medical History: Cancer Additional Family Medical History / Comment(s): Brain Cancer. Father Family Medical History: CVA/TIA Medications and Allergies Home Medications Medication Instructions Recorded Confirmed Type Vit C/E/Zn/Coppr/Lutein/Zeaxan 1 cap PO BID 08/03/17 02/15/24 History [Preservision Areds 2 Softgel] Escitalopram [Lexapro] 10 mg PO DAILY 11/25/20 02/15/24 History Apixaban [Eliquis] 5 mg PO BID 30 Days #60 tab 11/26/20 02/15/24 Rx Amiodarone [Cordarone] 200 mg PO DAILY 12/02/20 02/15/24 History Roflumilast [Daliresp] 500 mcg PO DAILY 01/17/21 02/15/24 History Potassium Chloride ER [K-Dur 20] 20 meq PO DAILY #30 tab 01/26/21 02/15/24 Rx Digoxin [Lanoxin] 125 mcg PO DAILY 11/15/21 02/15/24 History Albuterol Inhaler [Ventolin Hfa 2 puff INHALATION RT-Q6H PRN 04/26/23 02/15/24 History Inhaler] Cholecalciferol [Vitamin D3 (25 25 mcg PO DAILY 04/26/23 02/15/24 History Mcg = 1000 Iu)] Fluticasone Propion/Salmeterol 1 puff INHALATION RT-BID 04/26/23 02/15/24 History [Wixela 500-50 Inhub] Tiotropium 2.5 Mcg/Puff [Spiriva 2 puff INHALATION RT-DAILY 04/26/23 02/15/24 History Respimat 2.5 Mcg] buPROPion [Wellbutrin] 150 mg PO BID 04/26/23 02/15/24 History Albuterol Nebulized [Ventolin 2.5 mg INHALATION RT-Q4H 02/15/24 02/15/24 History Nebulized] Bumetanide [BUMEX] 1 mg PO BID 02/15/24 02/15/24 History Carboxymethylcellulose Sodium 1 drop BOTH EYES Q6H PRN 02/15/24 02/15/24 History [Refresh Tears] Gabapentin [Neurontin] 200 mg PO BID 02/15/24 02/15/24 History Lidocaine 5% Patch [Lidoderm] 1 patch TRANSDERM DAILY 02/15/24 02/15/24 History traZODone HCL [Desyrel] 50 mg PO HS 02/15/24 02/15/24 History Allergies Allergy/AdvReac Type Severity Reaction Status Date / Time atorvastatin [From Lipitor] AdvReac Muscle pain Verified 02/15/24 12:14 Physical Exam Vitals: Vital Signs Temp Pulse Pulse Resp BP BP Pulse Ox 02/16/24 01:39 97.2 F L 76 18 130/62 93 L 02/15/24 23:23 02/15/24 19:57 84 02/15/24 19:48 80 02/15/24 19:19 98.5 F 80 17 114/59 97 02/15/24 16:36 70 02/15/24 16:20 72 02/15/24 15:07 98.1 F 76 18 129/62 95 02/15/24 14:31 79 16 128/62 91 L 02/15/24 12:00 75 18 135/64 99 02/15/24 11:30 79 22 119/74 100 02/15/24 11:15 70 02/15/24 11:00 67 18 118/58 100 02/15/24 10:53 70 02/15/24 09:44 98.3 F 79 22 126/59 89 L FiO2 02/16/24 01:39 02/15/24 23:23 36 02/15/24 19:57 02/15/24 19:48 02/15/24 19:19 02/15/24 16:36 02/15/24 16:20 02/15/24 15:07 02/15/24 14:31 02/15/24 12:00 02/15/24 11:30 02/15/24 11:15 02/15/24 11:00 02/15/24 10:53 02/15/24 09:44 Intake and Output 02/15/24 02/15/24 02/16/24 14:59 22:59 06:59 Output Total 300 Balance -300 Output: Urine 300 Other: # Voids 1 Weight 107.048 kg GENERAL EXAM: Alert, 78-year-old male, obese, sitting up in bedside recliner,, comfortable in no apparent distress. HEAD: Normocephalic and atraumatic EYES: Normal reaction of pupils, equal size. NOSE: Clear with pink turbinates. THROAT: No erythema or exudates. NECK: No masses, no JVD. CHEST: No chest wall deformity. LUNGS: Equal air entry with diminished lung sounds throughout. No crackles, wheeze, rhonchi or focal dullness. On 4 L/min nasal cannula. No conversational dyspnea or accessory muscle use while at rest. Hospital provide CPAP at bedside in AVAPS mode CVS: S1 and S2 normal with no audible murmur, regular rhythm. No extra heart sounds ABDOMEN: No hepatosplenomegaly, active bowel sounds, no guarding or rigidity. SPINE: No scoliosis or deformity SKIN: No rashes CENTRAL NERVOUS SYSTEM: No focal deficits, tone is normal in all 4 extremities. EXTREMITIES: There is no peripheral edema, clubbing, or cyanosis. Peripheral pulses are intact. Results - Laboratory Findings CBC and BMP: 02/15/24 10:11 02/15/24 10:11 PT/INR, D-dimer PT 10.1 sec (10.0-12.5) 02/15/24 10:11 INR 0.9 (<1.2) 02/15/24 10:11 D-Dimer 0.24 mg/L FEU (<0.60) 02/15/24 10:11 Abnormal lab findings: Abnormal Labs 02/15/24 02/15/24 02/15/24 10:11 10:11 10:11 RBC 3.70 L Hgb 11.8 L Hct 36.6 L Chloride 95 L Carbon Dioxide 40 H Plasma Lactic Acid Fabiano 0.5 L Total Protein 6.1 L - Diagnostic Findings Chest x-ray: image reviewed Assessment and Plan Assessment: Acute on top of chronic dyspnea Acute COPD exacerbation and questionable bibasilar community-acquired pneumonia. Chronic ongoing tobacco dependence and secondhand smoke exposure Severe chronic obstructive pulmonary disease, FEV1 37% of predicted Chronic hypoxemic and hypercapnic respiratory, normally on 4 L/min nasal cannula 29/11 Obstructive sleep apnea, with home CPAP Obesity, with a BMI of 33.9 kg/m Paroxysmal atrial fibrillation, currently in normal sinus rhythm Hypertension History of renal cancer status post right nephrectomy Plan: Patient's medications, labs, chest x-ray reviewed Continue supplemental O2, currently on 4 L/min nasal cannula. Possible subtle bibasilar opacities noted on CXR, personally felt to be chronic Covered on empiric antibiotics in the ED. Procalcitonin level pending. Negative for influenza, RSV, COVID Continue combination of bronchodilators, Symbicort inhaler, and IV Solu-Medrol. Smoking cessation counseling performed greater than 10 minutes Nicotine patch refused Hospital provided CPAP at bedside to be used at bedtime Cardiac medications including Eliquis have been resumed We will continue to follow I have personally seen and examined the patient, performed the documentation and the assessment and plan as written. Number of minutes spent on the visit:20 Time with Patient: Greater than 30
[2024-02-16] MEDS: ESCITALOPRAM 10 MG TAB PO SCH (08:01)
[2024-02-16] MEDS: POTASSIUM CHLORIDE ER 20 MEQ TAB.ER PO SCH (08:01)
[2024-02-16] MEDS: AMIODARONE 200 MG TAB PO SCH (08:01)
[2024-02-16] MEDS: DIGOXIN 125 MCG TAB PO SCH (08:01)
[2024-02-16] MEDS: AZITHROMYCIN 500 MG TAB PO SCH (08:49)
[2024-02-16 08:58] LABS: Basophils # (A) 0 X 10*3/uL (0.00-0.10); Basophils % (A) 0 %; Eosinophils # (A) 0 X 10*3/uL (0.04-0.35); Eosinophils % (A) 0 %; HCT 34.2 % (39.6-50.0); HGB 10.6 g/dL (13.0-17.0); Lymphocytes # (A) 0.38 X 10*3/uL (0.90-5.00); Lymphocytes % (A) 5.3 %; MCH 30.4 pg (27.0-32.0); Mean Platelet Volume 10.4 FL (9.5-12.2); Monocytes # (A) 0.14 X 10*3/uL (0.20-1.00); Monocytes % (A) 1.9 %; NRBC Per 100 WBC 0 X 10*3/uL (0.00-0.01); Neutrophils # (A) 6.64 X 10*3/uL (1.80-7.70); Neutrophils % (A) 92.4 %; Platelet Count 160 X 10*3/uL (140-440); RBC 3.49 X 10*6/uL (4.40-5.60); WBC 7.19 X 10*3/uL (4.50-10.00)
[2024-02-16 09:26] LABS: BUN/Creat Ratio 20.73 Ratio (12.00-20.00); Blood Urea Nitrogen 22.8 mg/dL (9.0-27.0); Calcium 9.1 mg/dL (8.7-10.3); Carbon Dioxide 36.2 mmol/L (21.6-31.8); Chloride 94 mmol/L (96-109); Glucose 214 mg/dL (70-110); Magnesium 1.9 mg/dL (1.5-2.4); Potassium 4.1 mmol/L (3.5-5.5); Sodium 138 mmol/L (135-145)
--- NOTE | 2024-02-16 13:45 | P.PN ---
Subjective Progress Note Date: 02/16/24 78-year-old male with PMH of chronic respiratory failure and COPD on 4 L nasal cannula, hypertension, atrial fibrillation, dyslipidemia, systolic CHF presents the ED for multiple complaints. He reports progressively worsening shortness of breath over the past 2 weeks. He reports a constellation of other symptoms during this time including bitemporal headache, increased anxiety, and weakness which he attributes to build up of CO2 in his body. He does have a BiPAP at home which he uses occasionally. Other complaints include vague abdominal discomfort which he is not able to describe effectively. He also reports chronic lower back pain which he relates to Sciatica. He denies any chest pain, palpitations, lightheadedness, changes in urination or bowel habits. In the ED he underwent extensive evaluation. BP 126/59, HR 79, RR 22, T 98.3F, 89% on 4L NC. CBC, Coag panel, CMP significant for RBC 3.7, Hg 11.8, Hct 36.6, Cl 95, bicarb 40, total protein 6.1. Troponin < 0.012. BNP 323. Mag 1.9. COVID, RSV, Flu negative. EKG sinus rhythm with RBBB. CXR concerning for bibasilar opacities. He is admitted for further workup and management. 02/15 Patient was seen and examined. Feeling well. Currently 94% on 4L NC. CBC and BMP significant for RBC 3.49, Hg 10.6, Hct 34.2, MCV 98, Cl 94, bicarb 36.2, glu 214. Mag 1.9. Procal 0.11. General: non toxic, no distress, appears at stated age Derm: warm, dry Head: atraumatic, normocephalic, symmetric Eyes: EOMI, no lid lag, anicteric sclera Mouth: no lip lesion, mucus membranes moist Cardiovascular: S1 S2 reg. No murmurs, rubs, gallops Lungs: Dereased BS bilaterally with scattered expiratory wheezing, no accessory muscle use Ext: no gross muscle atrophy, no edema, no contractures Neuro: no focal neuro deficits Psych: Alert, oriented, appropriate affect Based on my assessment of this patient, this patient meets a high complexity level of care. Acute on chronic hypoxic respiratory failure: D-Dimer 0.24 low concerns for PE. BNP 323 low concerns for CHF exacerbation. Possible PNA on CXR, Procal negative, low concerns for PNA. Telemetry monitoring. Acute COPD exacerbation: DuoNeb QID scheduled and Q2H PRN. SoluMedrol 60 mg IV Q6H. Symbicort 2 INH BID. Pulmonary consulted. Acute bronchitis: Procal negative. Discontinue Rocephin and continue Mallory thromycin 500 mg PO QD x 3 days. Metabolic alkalosis: Appears at baseline. Likely compensatory. BiPAP ordered QHS. Generalized weakness: PT and OT consult. Fall precautions. Atrial fibrillation: Amiodarone 200 mg PO QD. Eliquis 5 mg PO BID. Digoxin 125 mcg PO QD. Systolic CHF: Bumex 1 mg PO BID. CODE STATUS: FULL CODE. DVT Prophylaxis: Eliquis. GI Prophylaxis: Protonix PO Designated medical POA if patient is not able to make medical decisions for themselves: I have reviewed the following law firm consultant notes: Pulmonary note. I have reviewed the results of the following tests: CBC, BMP, Mag, Procal. I have ordered the following tests: As above. I have discussed the care of this patient with the following independent historian: I have independently interpreted the following test below: I have discussed the management of this patient with the following physician: Objective - Vital Signs Vital signs: Vital Signs Temp 97.7 F 02/16/24 07:50 Pulse 78 02/16/24 09:11 Resp 16 02/16/24 07:50 BP 154/70 02/16/24 07:50 Pulse Ox 94 L 02/16/24 07:50 FiO2 36 02/15/24 23:23 Intake & Output 02/15/24 02/16/24 02/16/24 18:59 06:59 18:59 Output Total 300 Balance -300 Weight 107.048 kg Output: Urine 300 Other: # Voids 1 1 - Labs CBC & Chem 7: 02/16/24 03:13 02/16/24 03:13 Labs: Abnormal Lab Results - Last 24 Hours (Table) 02/16/24 02/16/24 Range/Units 03:13 03:13 RBC 3.49 L (4.40-5.60) X 10*6/uL Hgb 10.6 L (13.0-17.0) g/dL Hct 34.2 L (39.6-50.0) % MCV 98.0 H (80.0-97.0) FL MCHC 31.0 L (32.0-37.0) g/dL Lymphocytes # 0.38 L (0.90-5.00) X 10*3/uL Monocytes # 0.14 L (0.20-1.00) X 10*3/uL Eosinophils # 0 L (0.04-0.35) X 10*3/uL Chloride 94 L (96-109) mmol/L Carbon Dioxide 36.2 H (21.6-31.8) mmol/L BUN/Creatinine Ratio 20.73 H (12.00-20.00) Ratio Glucose 214 H (70-110) mg/dL
[2024-02-17] MEDS: PANTOPRAZOLE 40 MG TABLET PO SCH (08:26)
--- NOTE | 2024-02-17 12:07 | P.PN ---
Subjective Progress Note Date: 02/17/24 Patient is 78-year-old male with past medical history significant for COPD, current ongoing tobacco dependence, chronic home oxygen on 4 L/min nasal cannula, atrial fibrillation, hyperlipidemia, hypertension, renal cancer with previous right nephrectomy. He follows in the pulmonary office with Dr. Ware. He has severe COPD with an FEV1 37% of predicted. Also, known to have obstructive sleep apnea using AVAPS machine at night. Patient presents with acute on top of chronic shortness of breath. Mostly worse on exertion. He becomes severely short of breath with ambulation to the bathroom. Also, reports trouble concentrating and sleepiness. Denies any infectious symptoms. No fevers, cough, sputum production, chest pain, wheezing. Endorsed some generalized chest tightness. Nonlocalized. Nonradiating. Denies worsening lower extremity swelling. Denies orthopnea or PND. Patient is currently sitting in bedside recliner, on 4 L/min nasal cannula, does not appear to be any acute respiratory distress. Hospital provided CPAP is at bedside. Chest x-ray shows some possible subtle bibasilar patchy opacities. In my opinion, felt to be more chronic in nature. Afebrile. CBC unremarkable without leukocytosis. D-dimer 0.24. CMP: Sodium 140, potassium 4.4, chloride 95, serum bicarb 40, BUN 18, creatinine 1.11, glucose 87. Lactic 0.5. LFTs unremarkable. NT proBNP 323. Troponin less than 0.012. EKG: Normal sinus rhythm, rate 75 bpm, RBB. Negative for influenza, RSV, COVID. Patient does continue to smoke a few cigarettes per week. Also, his smokes indoors and is exposed to significant secondhand smoke. Patient was empirically started on antibiotics in the emergency depar tment. Procalcitonin level pending. Nontoxic appearance, stable. The patient is seen today February 17, 2024 in follow-up on the regular medical floor. He is currently up with assistance. Awake and alert in no acute distress. Continued O2 saturations in the 90s on 3 L/min per nasal cannula. He is afebrile. Hemodynamically stable. Blood cultures revealed no growth. Procalcitonin was negative at 0.11. Currently on azithromycin. Continued on DuoNeb inhalations, Symbicort, Solu-Medrol. Anticoagulated with Eliquis. Objective - Vital Signs Vital signs: Vital Signs Temp 97.7 F 02/17/24 07:28 Pulse 66 02/17/24 08:30 Resp 16 02/17/24 08:30 BP 142/74 02/17/24 07:28 Pulse Ox 93 L 02/17/24 07:28 FiO2 36 02/15/24 23:23 Intake & Output 02/16/24 02/17/24 02/17/24 18:59 06:59 18:59 Output Total 450 550 Balance -450 -550 Output: Urine 450 550 Other: Voiding Method Toilet Urinal # Voids 4 2 - Exam GENERAL EXAM: Alert, active, pleasant 78-year-old male, on 3 L nasal cannula, comfortable in no apparent distress. HEAD: Normocephalic. EYES: Normal reaction of pupils, equal size. NOSE: Clear with pink turbinates. THROAT: No erythema or exudates. NECK: No masses, no JVD. CHEST: No chest wall deformity. LUNGS: Equal air entry with no crackles, wheeze, rhonchi or dullness. Diminished. CVS: S1 and S2 normal with no audible murmur, regular rhythm. ABDOMEN: No hepatosplenomegaly, normal bowel sounds, no guarding or rigidity. SPINE: No scoliosis or deformity SKIN: No rashes CENTRAL NERVOUS SYSTEM: No focal deficits, tone is normal in all 4 extremities. EXTREMITIES: There is no peripheral edema. No clubbing, no cyanosis. Peripheral pulses are intact. - Labs CBC & Chem 7: 02/16/24 03:13 02/16/24 03:13 Labs: Microbiology - Last 24 Hours (Table) 02/15/24 12:05 Blood Culture - Preliminary Blood Assessment and Plan Assessment: Acute on top of chronic dyspnea Acute COPD exacerbation and questionable bibasilar community-acquired pneumonia. Chronic ongoing tobacco dependence and secondhand smoke exposure Severe chronic obstructive pulmonary disease, FEV1 37% of predicted Chronic hypoxemic and hypercapnic respiratory, normally on 4 L/min nasal cannula 29/11 Obstructive sleep apnea, with home CPAP Obesity, with a BMI of 33.9 kg/m Paroxysmal atrial fibrillation, currently in normal sinus rhythm Hypertension History of renal cancer status post right nephrectomy Plan: The patient was seen and evaluated Medications reviewed Procalcitonin negative Discontinue azithromycin Continue DuoNeb inhalations, Symbicort, steroids Again educated regarding smoking cessation Cleared for discharge from the pulmonary standpoint Follow-up in our office in 1 week I have personally seen and examined the patient, performed the documentation and the assessment and plan as written. Number of minutes spent on the visit: 10.
[2024-02-17 13:36] VITALS: BP 117/55; PULSE 76; RESP 18; TEMP 97.9
--- NOTE | 2024-02-17 14:12 | P.DS ---
Providers Date of admission: 02/15/24 12:01 Expected date of discharge: 02/17/24 Attending physician: Oliver Garcia Consults: 02/15/24 14:18 Consult Physician Routine Consulting Provider: Chris Ware Consult Reason/Comments: copd Do you want consulting provider notified?: Yes Primary care physician: [facility] Course: 78-year-old male with PMH of chronic respiratory failure and COPD on 4 L nasal cannula, hypertension, atrial fibrillation, dyslipidemia, systolic CHF presents the ED for multiple complaints. He reports progressively worsening shortness of breath over the past 2 weeks. He reports a constellation of other symptoms during this time including bitemporal headache, increased anxiety, and weakness which he attributes to build up of CO2 in his body. He does have a BiPAP at home which he uses occasionally. Other complaints include vague abdominal discomfort which he is not able to describe effectively. He also reports chronic lower back pain which he relates to Sciatica. He denies any chest pain, palpitations, lightheadedness, changes in urination or bowel habits. In the ED he underwent extensive evaluation. BP 126/59, HR 79, RR 22, T 98.3F, 89% on 4L NC. CBC, Coag panel, CMP significant for RBC 3.7, Hg 11.8, Hct 36.6, Cl 95, bicarb 40, total protein 6.1. Troponin < 0.012. BNP 323. Mag 1.9. COVID, RSV, Flu negative. EKG sinus rhythm with RBBB. CXR concerning for bibasilar opacities. He is admitted for further workup and management. Started on bronchodilators and SoluMedrol. Also started on Rocephin and Azithromycin. Pro-cheryl was 0.11. Pulmonary discontinued antibiotics. 02/15 Patient was seen and examined. Feeling well. Currently 94% on 3L NC. Breathing back to baseline. He does not reports abdominal pain at this time. He has been cleared by Pulmonary for discharge. Discharge Plan: Prednisone taper prescribed along with Mucinex and Protonix. Continue bronchodilators and BiPAP QHS at home. Advised to follow up with PCP for further workup of vague abdominal pain and headache. General: non toxic, no distress, appears at stated age Derm: warm, dry Head: atraumatic, normocephalic, symmetric Eyes: EOMI, no lid lag, anicteric sclera Mouth: no lip lesion, mucus membranes moist Cardiovascular: S1 S2 reg. No murmurs, rubs, gallops Lungs: Dereased BS bilaterally with scattered expiratory wheezing, no accessory muscle use Ext: no gross muscle atrophy, no edema, no contractures Neuro: no focal neuro deficits Psych: Alert, oriented, appropriate affect Discharge Diagnosis: Acute on chronic hypoxic respiratory failure Acute COPD exacerbation Acute bronchitis Metabolic alkalosis Generalized weakness Atrial fibrillation Systolic CHF This complex discharge took 35 minutes to complete. Patient Condition at Discharge: Stable Plan - Discharge Summary Discharge Rx Participant: Yes New Discharge Prescriptions: New predniSONE See Taper PO DIRECTED #30 tab Pantoprazole [Protonix] 40 mg PO AC-BRKFST #30 tab guaiFENesin [Mucinex] 1,200 mg PO BID #30 tab Continue Vit C/E/Zn/Coppr/Lutein/Zeaxan [Preservision Areds 2 Softgel] 1 cap PO BID Escitalopram [Lexapro] 10 mg PO DAILY Apixaban [Eliquis] 5 mg PO BID 30 Days #60 tab buPROPion [Wellbutrin] 150 mg PO BID Albuterol Inhaler [Ventolin Hfa Inhaler] 2 puff INHALATION RT-Q6H PRN PRN Reason: Shortness Of Breath Gabapentin [Neurontin] 200 mg PO BID Albuterol Nebulized [Ventolin Nebulized] 2.5 mg INHALATION RT-Q4H Bumetanide [BUMEX] 1 mg PO BID Amiodarone [Cordarone] 200 mg PO DAILY Roflumilast [Daliresp] 500 mcg PO DAILY Potassium Chloride ER [K-Dur 20] 20 meq PO DAILY #30 tab Digoxin [Lanoxin] 125 mcg PO DAILY Fluticasone Propion/Salmeterol [Wixela 500-50 Inhub] 1 puff INHALATION RT-BID Cholecalciferol [Vitamin D3 (25 Mcg = 1000 Iu)] 25 mcg PO DAILY Tiotropium 2.5 Mcg/Puff [Spiriva Respimat 2.5 Mcg] 2 puff INHALATION RT-DAILY traZODone HCL [Desyrel] 50 mg PO HS Lidocaine 5% Patch [Lidoderm 5% Patch] 1 patch TRANSDERM DAILY Carboxymethylcellulose Sodium [Refresh Tears] 1 drop BOTH EYES Q6H PRN PRN Reason: Dry Eye(S) Discharge Medication List Vit C/E/Zn/Coppr/Lutein/Zeaxan [Preservision Areds 2 Softgel] 1 cap PO BID 08/03/17 [History] Escitalopram [Lexapro] 10 mg PO DAILY 11/25/20 [History] Apixaban [Eliquis] 5 mg PO BID 30 Days #60 tab 11/26/20 [Rx] Amiodarone [Cordarone] 200 mg PO DAILY 12/02/20 [History] Roflumilast [Daliresp] 500 mcg PO DAILY 01/17/21 [History] Potassium Chloride ER [K-Dur 20] 20 meq PO DAILY #30 tab 01/26/21 [Rx] Digoxin [Lanoxin] 125 mcg PO DAILY 11/15/21 [History] Albuterol Inhaler [Ventolin Hfa Inhaler] 2 puff INHALATION RT-Q6H PRN 04/26/23 [History] Cholecalciferol [Vitamin D3 (25 Mcg = 1000 Iu)] 25 mcg PO DAILY 04/26/23 [History] Fluticasone Propion/Salmeterol [Wixela 500-50 Inhub] 1 puff INHALATION RT-BID 04/26/23 [History] Tiotropium 2.5 Mcg/Puff [Spiriva Respimat 2.5 Mcg] 2 puff INHALATION RT-DAILY 04/26/23 [History] buPROPion [Wellbutrin] 150 mg PO BID 04/26/23 [History] Albuterol Nebulized [Ventolin Nebulized] 2.5 mg INHALATION RT-Q4H 02/15/24 [History] Bumetanide [BUMEX] 1 mg PO BID 02/15/24 [History] Carboxymethylcellulose Sodium [Refresh Tears] 1 drop BOTH EYES Q6H PRN 02/15/24 [History] Gabapentin [Neurontin] 200 mg PO BID 02/15/24 [History] Lidocaine 5% Patch [Lidoderm 5% Patch] 1 patch TRANSDERM DAILY 02/15/24 [History] traZODone HCL [Desyrel] 50 mg PO HS 02/15/24 [History] Pantoprazole [Protonix] 40 mg PO AC-BRKFST #30 tab 02/17/24 [Rx] guaiFENesin [Mucinex] 1,200 mg PO BID #30 tab 02/17/24 [Rx] predniSONE See Taper PO DIRECTED #30 tab 02/17/24 [Rx] Follow up Appointment(s)/Referral(s): Chris Ware DO [Doctor of Osteopathic Medicine] - 03/15/24 2:00 pm [facility]inic [Primary Care Provider] - 1-2 days Discharge Disposition: HOME SELF-CARE
[2024-02-18] MEDS ORDERED: predniSONE 20 MG TAB PO SCH (09:00)
== END 2024-02-17 13:54 | disposition home or self-care (01) | DRG 193 ==
LOC: EC 09:38 → SUPCPDRO 09:38 → 4SSUR 12:01
PROVIDERS: ADMIT Student in an Organized Health Care Education/Training Program; ATTEND Student in an Organized Health Care Education/Training Program
DX: J18.9 Pneumonia, unspecified organism (principal); J96.21 Acute and chronic respiratory failure with hypoxia; J44.1 Chronic obstructive pulmonary disease with (acute) exacerbation; E87.3 Alkalosis; I50.22 Chronic systolic (congestive) heart failure; J44.0 Chronic obstructive pulmonary disease with (acute) lower respiratory infection; J20.9 Acute bronchitis, unspecified; I11.0 Hypertensive heart disease with heart failure; Z99.81 Dependence on supplemental oxygen; J43.9 Emphysema, unspecified; E66.9 Obesity, unspecified; F32.A Depression, unspecified; Z68.33 Body mass index [BMI] 33.0-33.9, adult; I48.0 Paroxysmal atrial fibrillation; G47.33 Obstructive sleep apnea (adult) (pediatric); I45.10 Unspecified right bundle-branch block; E78.5 Hyperlipidemia, unspecified; F17.210 Nicotine dependence, cigarettes, uncomplicated; F41.9 Anxiety disorder, unspecified; G89.29 Other chronic pain; H54.8 Legal blindness, as defined in USA; H91.93 Unspecified hearing loss, bilateral; Z85.528 Personal history of other malignant neoplasm of kidney; Z90.5 Acquired absence of kidney; Z79.01 Long term (current) use of anticoagulants; Z79.899 Other long term (current) drug therapy; Z85.820 Personal history of malignant melanoma of skin; Z97.4 Presence of external hearing-aid; Z88.8 Allergy status to other drugs, medicaments and biological substances
CPT/HCPCS: 36415; 71046; 80048; 80053; 83605; 83735; 83880; 84145; 84484; 85025; 85379; 85610; 85730; 87040; 87636; 93005; 94640; 94660; 96374; 96375; 99291

== ENCOUNTER 2024-04-10 20:00 | Emergency (ER) | payer OTHER, MEDICARE ==
--- NOTE | 2024-04-10 20:20 | ED ---
General Adult HPI - General Chief complaint: Shortness of Breath Stated complaint: Discomfort Time Seen by Provider: 04/10/24 20:07 Source: patient Mode of arrival: ambulatory Limitations: no limitations - History of Present Illness Initial comments: Dictation was produced using [employer] dictation software. please excuse any grammatical, word or spelling errors. Chief Complaint: 78-year-old male presents with chief complaint of feeling jittery History of Present Illness: Patient is a 78-year-old male has past medical history of COPD A-fib dyslipidemia states that he is feel jittery. He states he is here because he has been feeling very for the last couple days states that 2 nights ago had trouble sleeping started to feel jittery. This morning he woke up felt more jittery than usual. Denies any chest pain shortness of breath. No fever chills night sweats. No constitutional symptoms. No abdominal pain. No extremity weakness. Denies any dizziness or worsening symptoms whenever he stands. Patient wears as needed home O2 The ROS documented in this emergency department record has been reviewed and confirmed by me. Those systems with pertinent positive or negative responses have been documented in the HPI. All other systems are other negative and/or noncontributory. - Related Data Home Medications Medication Instructions Recorded Confirmed Vit C/E/Zn/Coppr/Lutein/Zeaxan 1 cap PO BID 08/03/17 02/15/24 [Preservision Areds 2 Softgel] Escitalopram [Lexapro] 10 mg PO DAILY 11/25/20 02/15/24 Amiodarone [Cordarone] 200 mg PO DAILY 12/02/20 02/15/24 Roflumilast [Daliresp] 500 mcg PO DAILY 01/17/21 02/15/24 Digoxin [Lanoxin] 125 mcg PO DAILY 11/15/21 02/15/24 Albuterol Inhaler [Ventolin Hfa 2 puff INHALATION RT-Q6H PRN 04/26/23 02/15/24 Inhaler] Cholecalciferol [Vitamin D3 (25 25 mcg PO DAILY 04/26/23 02/15/24 Mcg = 1000 Iu)] Fluticasone Propion/Salmeterol 1 puff INHALATION RT-BID 04/26/23 02/15/24 [Wixela 500-50 Inhub] Tiotropium 2.5 Mcg/Puff [Spiriva 2 puff INHALATION RT-DAILY 04/26/23 02/15/24 Respimat 2.5 Mcg] buPROPion [Wellbutrin] 150 mg PO BID 04/26/23 02/15/24 Albuterol Nebulized [Ventolin 2.5 mg INHALATION RT-Q4H 02/15/24 02/15/24 Nebulized] Bumetanide [BUMEX] 1 mg PO BID 02/15/24 02/15/24 Carboxymethylcellulose Sodium 1 drop BOTH EYES Q6H PRN 02/15/24 02/15/24 [Refresh Tears] Gabapentin [Neurontin] 200 mg PO BID 02/15/24 02/15/24 Lidocaine 5% Patch [Lidoderm 5% 1 patch TRANSDERM DAILY 02/15/24 02/15/24 Patch] traZODone HCL [Desyrel] 50 mg PO HS 02/15/24 02/15/24 Previous Rx's Medication Instructions Recorded Apixaban [Eliquis] 5 mg PO BID 30 Days #60 tab 11/26/20 Potassium Chloride ER [K-Dur 20] 20 meq PO DAILY #30 tab 01/26/21 Pantoprazole [Protonix] 40 mg PO AC-BRKFST #30 tab 02/17/24 guaiFENesin [Mucinex] 1,200 mg PO BID #30 tab 02/17/24 predniSONE See Taper PO DIRECTED #30 tab 02/17/24 Allergies Allergy/AdvReac Type Severity Reaction Status Date / Time atorvastatin [From Lipitor] AdvReac Muscle pain Verified 04/10/24 20:05 Review of Systems ROS Statement: Those systems with pertinent positive or pertinent negative responses have been documented in the HPI. ROS Other: All systems not noted in ROS Statement are negative. Past Medical History Past Medical History: Atrial Fibrillation, Cancer, COPD, Eye Disorder, Hearing Disorder / Deafness, Hyperlipidemia, Hypertension, Osteoarthritis (OA) Additional Past Medical History / Comment(s): Emphysema (takes inhalers and uses oxygen at home). Hx Kidney Cancer in 2006, R nephrectomy.q Left eye detached retina. Wet Macular Degeneration right eye. Hx Melanoma on back. Bilateral hearing aid use, legally blind. History of Any Multi-Drug Resistant Organisms: None Reported Past Surgical History: Back Surgery Additional Past Surgical History / Comment(s): Right kidney removed. Left eye surgery X3 for detacted retina. Bilateral cataract surgery. Mohs surgery thoracic spine for melanoma.plate in right arm, bilateral eye lids lifted Past Anesthesia/Blood Transfusion Reactions: Previous Problems w/ Anesthesia Additional Past Anesthesia/Blood Transfusion Reaction / Comment(s): States low heart rate, light-headed and low BP X1 with anesthesia. "Got broke vocal cord and could not talk for 2 months after anesthesia one time." Past Psychological History: Anxiety, Depression Smoking Status: Current every day smoker Past Alcohol Use History: Occasional Past Drug Use History: None Reported - Past Family History Mother Family Medical History: Cancer Additional Family Medical History / Comment(s): Brain Cancer. Father Family Medical History: CVA/TIA General Exam - General Exam Comments Initial Comments: PHYSICAL EXAM: General Impression: Alert and oriented x3, not in acute distress HEENT: Normocephalic atraumatic, extra-ocular movements intact, pupils equal and reactive to light bilaterally, mucous membranes moist. Cardiovascular: Heart regular rate and rhythm Chest: Able to complete full sentences, no retractions, no tachypnea Abdomen: abdomen soft, non-tender, non-distended, no organomegaly Musculoskeletal: Pulses present and equal in all extremities, no peripheral edema Motor: no focal deficits noted Neurological: CN II-XII grossly intact, no focal motor or sensory deficits noted Skin: Intact with no visualized rashes Psych: Normal affect and mood Limitations: no limitations Course Vital Signs 04/10/24 04/10/24 04/10/24 20:02 20:11 20:13 Temperature 98.5 F Pulse Rate 83 80 Respiratory 18 22 22 Rate Blood Pressure 128/62 161/72 O2 Sat by Pulse 91 L 93 L Oximetry EKG Findings - EKG Comments: EKG Findings:: My EKG interpretation: Ventricular rate 69, sinus rhythm, right bundle branch block,. 140, QRS 149, QTc 412. No GA prolongation, no QTC prolongation, no ST or T-wave changes noted. EOverall, this EKG is unremarkable Medical Decision Making - Medical Decision Making Was pt. sent in by a medical professional or institution (, PA, OUTGOING INSPECTOR, urgent care, hospital, or senior care...) When possible be specific @ -No Did you speak to anyone other than the patient for history (EMS, parent, family, police, friend...)? What history was obtained from this source @ -No Did you review nursing and triage notes (agree or disagree)? Why? @ -I reviewed and agree with nursing and triage notes Were old charts reviewed (outside hosp., previous admission, EMS record, old EKG, old radiological studies, urgent care reports/EKG's, senior care records)? Report findings @ -No old charts were reviewed Differential Diagnosis (chest pain, altered mental status, abdominal pain women, abdominal pain men, vaginal bleeding, musculoskeletal, weakness, fever, dyspnea, syncope, headache, dizziness, GI bleed, back pain, seizure, CVA, palpatations, mental health)? @ -Differential Weakness: Hypoglycemia, shock, sepsis, hyponatremia, anemia, infection, NE, ETOH, adverse medicine reaction, overdose, stroke, this is not meant to be an all-inclusive list. EKG interpreted by me (3pts min.). @ -See above X-rays interpreted by me (1pt min.). @ -Chest x-ray shows no acute processes CT interpreted by me (1pt min.). @ -None done U/S interpreted by me (1pt. min.). @ -None done What testing was considered but not performed or refused? (CT, X-rays, U/S, labs)? Why? @ -None What meds were considered but not given or refused? Why? @ -None Was smoking cessation discussed for >3mins.? @ -No Were there social determinants of health that impacted care today? How? (Homelessness, low income, unemployed, alcoholism, drug addiction, transportation, low edu. Level, literacy, decrease access to med. care, detention, rehab)? @ -No Was there de-escalation of care discussed even if they declined (Discuss DNR or withdrawal of care, Hospice)? DNR status @ -No What co-morbidities impacted this encounter? (DM, HTN, Smoking, COPD, CAD, Cancer, CVA, ARF, Chemo, Hep., AIDS, mental health diagnosis, sleep apnea, morbid obesity)? @ -None Was patient admitted / discharged? Hospital course, mention meds given and route, prescriptions, significant lab abnormalities, going to OR and other pertinent info. @ -78-year-old well-appearing male presents emergency department jitteriness and difficulty sleeping. Patient well-appearing. Vital signs stable. Patient no acute distress. Patient has no complaints of pain or any sort of serious complaints. Laboratory evaluation obtained. Labs unremarkable. Patient reevaluated bedside at 9:00 PM found to be stable to condition. Patient in no acute distress. Resting comfortably. At this point patient has no high risk f eatures will be discharged. Patient given 1 small dose of Xanax prior to discharge to help him sleep tonight. Is advised to follow-up with primary care doctor Did you discuss the management of the patient with other professionals (professionals i.e. , PA, OUTGOING INSPECTOR, lab, RT, psych nurse, hospital social worker, tool crib clerk, teacher, senior officer, window caser)? Give summary @ -No Was critical care preformed (if so, how long)? @ -No Undiagnosed new problem with uncertain prognosis? @ -No Drug Therapy requiring intensive monitoring for toxicity (Heparin, Nitro, Insulin, Cardizem)? @ -No Were any procedures done? @ -No Diagnosis/symptom? Acute, or Chronic, or Acute on Chronic? Uncomplicated (without systemic symptoms) or Complicated (systemic symptoms)? @ -Jittery Side effects of treatment? @ -No Exacerbation, Progression, or Severe Exacerbation? @ -No Poses a threat to life or bodily function? How? (Chest pain, USA, NE, pneumonia, PE, COPD, DKA, ARF, appy, cholecystitis, CVA, Diverticulitis, Homicidal, Suicidal, threat to staff... and all critical care pts) @ -No - Lab Data Result diagrams: 04/10/24 20:20 04/10/24 20:20 Lab Results 04/10/24 04/10/24 Range/Units 20:20 20:20 WBC 9.4 (3.8-10.6) k/uL RBC 4.03 L (4.30-5.90) m/uL Hgb 12.7 L (13.0-17.5) gm/dL Hct 40.0 (39.0-53.0) % MCV 99.3 (80.0-100.0) fL MCH 31.4 (25.0-35.0) pg MCHC 31.6 (31.0-37.0) g/dL RDW 13.7 (11.5-15.5) % Plt Count 186 (150-450) k/uL MPV 7.1 Neutrophils % 70 % Lymphocytes % 17 % Monocytes % 6 % Eosinophils % 4 % Basophils % 0 % Neutrophils # 6.6 (1.3-7.7) k/uL Lymphocytes # 1.6 (1.0-4.8) k/uL Monocytes # 0.6 (0-1.0) k/uL Eosinophils # 0.4 (0-0.7) k/uL Basophils # 0.0 (0-0.2) k/uL Sodium 136 L (137-145) mmol/L Potassium 4.7 (3.5-5.1) mmol/L Chloride 105 (98-107) mmol/L Carbon Dioxide 30 (22-30) mmol/L Anion Gap 1 mmol/L BUN 29 H (9-20) mg/dL Creatinine 1.40 H (0.66-1.25) mg/dL Est GFR (CKD-EPI)AfAm 55 (>60 ml/min/1.73 sqM) Est GFR (CKD-EPI)NonAf 48 (>60 ml/min/1.73 sqM) Glucose 92 (74-99) mg/dL Calcium 9.1 (8.4-10.2) mg/dL Magnesium 2.2 (1.6-2.3) mg/dL Disposition Clinical Impression: Jittery Disposition: HOME SELF-CARE Condition: Good Instructions (If sedation given, give patient instructions): Insomnia (ED) Is patient prescribed a controlled substance at d/c from ED?: No Referrals: [facility],Clinic [Primary Care Provider] - 1-2 days Time of Disposition: 21:01
[2024-04-10 20:34] LABS: Basophils % (A) 0 %; Eosinophils # (A) 0.4 k/uL (0-0.7); Eosinophils % (A) 4 %; HGB 12.7 gm/dL (13.0-17.5); Lymphocytes # (A) 1.6 k/uL (1.0-4.8); Lymphocytes % (A) 17 %; MCH 31.4 pg (25.0-35.0); MCHC 31.6 g/dL (31.0-37.0); MCV 99.3 fL (80.0-100.0); Mean Platelet Volume 7.1; Monocytes # (A) 0.6 k/uL (0-1.0); Monocytes % (A) 6 %; Neutrophils # (A) 6.6 k/uL (1.3-7.7); Neutrophils % (A) 70 %; Platelet Count 186 k/uL (150-450); RBC 4.03 m/uL (4.30-5.90); RDW 13.7 % (11.5-15.5); WBC 9.4 k/uL (3.8-10.6)
[2024-04-10 20:43] LABS: African American GFR (CKD) 55 (>60 ml/min/1.73 sqM); Anion Gap 1 mmol/L; Blood Urea Nitrogen 29 mg/dL (9-20); Calcium 9.1 mg/dL (8.4-10.2); Carbon Dioxide 30 mmol/L (22-30); Chloride 105 mmol/L (98-107); Glucose 92 mg/dL (74-99); Non-African American GFR(CKD) 48 (>60 ml/min/1.73 sqM); Sodium 136 mmol/L (137-145)
[2024-04-10 20:44] LABS: Magnesium 2.2 mg/dL (1.6-2.3); Potassium 4.7 mmol/L (3.5-5.1)
--- NOTE | 2024-04-10 20:51 | XR ---
EXAMINATION TYPE: XR chest 2V DATE OF EXAM: 04/10/2024 8:37 PM CLINICAL INDICATION:Male, 78 years old with history of feels jittery; [facility] COMPARISON: Chest radiographs from 02/15/2024 TECHNIQUE: XR chest 2V Frontal view of the chest. FINDINGS: Lungs/Pleura: There is no evidence of pleural effusion or pneumothorax. Subtle patchy bibasilar opac ifications are seen. Pulmonary vascularity: Unremarkable. Heart/mediastinum: Cardiomediastinal silhouette is unremarkable. Musculoskeletal: No acute osseous pathology. Other findings: None IMPRESSION: Subtle bibasilar patchy airspace opacities may represent developing airspace disease. [facility], , 04/10/2024 8:48 PM
[2024-04-10] MEDS: ALPRAZolam 0.25 MG TAB PO STA (21:15)
[2024-04-10 21:18] VITALS: BP 131/65; PULSE 76; RESP 17; TEMP 98.3
== END 2024-04-10 21:21 | disposition home or self-care (01) ==
LOC: EC 20:00
DX: R45.0 Nervousness (principal); I45.10 Unspecified right bundle-branch block; F17.200 Nicotine dependence, unspecified, uncomplicated; Z88.8 Allergy status to other drugs, medicaments and biological substances
CPT/HCPCS: 36415; 71046; 80048; 83735; 85025; 93005; 99285

== ENCOUNTER 2024-05-02 09:24 | Inpatient (IN) | payer OTHER, MEDICARE ==
--- NOTE | 2024-05-02 09:55 | ED ---
General Adult HPI - General Chief complaint: Shortness of Breath Stated complaint: SOB Time Seen by Provider: 05/02/24 09:30 Source: patient, RN notes reviewed, old records reviewed Mode of arrival: ambulatory Limitations: no limitations - History of Present Illness Initial comments: This is a 78-year-old male with a past ministry significant for COPD. Patient states he continues to smoke. Patient comes in today because he is been having difficulty breathing over the last 2 to 3 days per patient states he is also had some chest pressure the last 2 to 3 days. Patient states that has been somewhat intermittent to the pressure but the difficulty breathing has been constant. Patient states that increase his oxygen at home so he does not feel so short of breath. Patient denies any increased cough. Denies any fever chills per patient Nuys any abdominal pain. Patient denies any back pain. Patient Nuys nausea vomiting diarrhea. Patient has any diaphoretic episodes - Related Data Home Medications Medication Instructions Recorded Confirmed Vit C/E/Zn/Coppr/Lutein/Zeaxan 1 cap PO BID 08/03/17 02/15/24 [Preservision Areds 2 Softgel] Escitalopram [Lexapro] 10 mg PO DAILY 11/25/20 02/15/24 Amiodarone [Cordarone] 200 mg PO DAILY 12/02/20 02/15/24 Roflumilast [Daliresp] 500 mcg PO DAILY 01/17/21 02/15/24 Digoxin [Lanoxin] 125 mcg PO DAILY 11/15/21 02/15/24 Albuterol Inhaler [Ventolin Hfa 2 puff INHALATION RT-Q6H PRN 04/26/23 02/15/24 Inhaler] Cholecalciferol [Vitamin D3 (25 25 mcg PO DAILY 04/26/23 02/15/24 Mcg = 1000 Iu)] Fluticasone Propion/Salmeterol 1 puff INHALATION RT-BID 04/26/23 02/15/24 [Wixela 500-50 Inhub] Tiotropium 2.5 Mcg/Puff [Spiriva 2 puff INHALATION RT-DAILY 04/26/23 02/15/24 Respimat 2.5 Mcg] buPROPion [Wellbutrin] 150 mg PO BID 04/26/23 02/15/24 Albuterol Nebulized [Ventolin 2.5 mg INHALATION RT-Q4H 02/15/24 02/15/24 Nebulized] Bumetanide [BUMEX] 1 mg PO BID 02/15/24 02/15/24 Carboxymethylcellulose Sodium 1 drop BOTH EYES Q6H PRN 02/15/24 02/15/24 [Refresh Tears] Gabapentin [Neurontin] 200 mg PO BID 02/15/24 02/15/24 Lidocaine 5% Patch [Lidoderm 5% 1 patch TRANSDERM DAILY 02/15/24 02/15/24 Patch] traZODone HCL [Desyrel] 50 mg PO HS 02/15/24 02/15/24 Previous Rx's Medication Instructions Recorded Apixaban [Eliquis] 5 mg PO BID 30 Days #60 tab 11/26/20 Potassium Chloride ER [K-Dur 20] 20 meq PO DAILY #30 tab 01/26/21 Pantoprazole [Protonix] 40 mg PO AC-BRKFST #30 tab 02/17/24 guaiFENesin [Mucinex] 1,200 mg PO BID #30 tab 02/17/24 predniSONE See Taper PO DIRECTED #30 tab 02/17/24 Allergies Allergy/AdvReac Type Severity Reaction Status Date / Time atorvastatin [From Lipitor] AdvReac Muscle pain Verified 05/02/24 09:30 Review of Systems ROS Statement: Those systems with pertinent positive or pertinent negative responses have been documented in the HPI. ROS Other: All systems not noted in ROS Statement are negative. Past Medical History Past Medical History: Atrial Fibrillation, Cancer, COPD, Eye Disorder, Hearing Disorder / Deafness, Hyperlipidemia, Hypertension, Osteoarthritis (OA) Additional Past Medical History / Comment(s): Emphysema (takes inhalers and uses oxygen at home). Hx Kidney Cancer in 2006, R nephrectomy.q Left eye detached retina. Wet Macular Degeneration right eye. Hx Melanoma on back. Bilateral hearing aid use, legally blind. History of Any Multi-Drug Resistant Organisms: None Reported Past Surgical History: Back Surgery Additional Past Surgical History / Comment(s): Right kidney removed. Left eye surgery X3 for detacted retina. Bilateral cataract surgery. Mohs surgery thorac ic spine for melanoma.plate in right arm, bilateral eye lids lifted Past Anesthesia/Blood Transfusion Reactions: Previous Problems w/ Anesthesia Additional Past Anesthesia/Blood Transfusion Reaction / Comment(s): States low heart rate, light-headed and low BP X1 with anesthesia. "Got broke vocal cord and could not talk for 2 months after anesthesia one time." Past Psychological History: Anxiety, Depression Smoking Status: Current every day smoker Past Alcohol Use History: Occasional Past Drug Use History: None Reported - Past Family History Mother Family Medical History: Cancer Additional Family Medical History / Comment(s): Brain Cancer. Father Family Medical History: CVA/TIA General Exam - General Exam Comments Initial Comments: GENERAL: Patient is well-developed and well-nourished. Patient is nontoxic and well- hydrated and is in mild distress. ENT: Neck is soft and supple. No significant lymphadenopathy is noted. Oropharynx is clear. Moist mucous membranes. Neck has full range of motion without eliciting any pain. EYES: The sclera were anicteric and conjunctiva were pink and moist. Extraocular movements were intact and pupils were equal round and reactive to light. Eyelids were unremarkable. PULMONARY: Slight crackles in the left base. Occasional expiratory wheeze CARDIOVASCULAR: There is a regular rate and rhythm without any murmurs gallops or rubs. ABDOMEN: Soft and nontender with normal bowel sounds. No palpable organomegaly was noted. There is no palpable pulsatile mass. SKIN: Skin is clear with no lesions or rashes and otherwise unremarkable. NEUROLOGIC: Patient is alert and oriented x3. Cranial nerves II through XII are grossly intact. Motor and sensory are also intact. Normal speech, volume and content. Symmetrical smile. MUSCULOSKELETAL: Normal extremities with adequate strength and full range of motion. 2+ edema bilaterally LYMPHATICS: No significant lymphadenopathy is noted PSYCHIATRIC: Normal psychiatric evaluation. Limitations: no limitations Course Vital Signs 05/02/24 05/02/24 05/02/24 09:28 09:35 10:00 Temperature 98.5 F Pulse Rate 81 74 Respiratory 24 18 21 Rate Blood Pressure 128/62 115/59 O2 Sat by Pulse 88 L 99 96 Oximetry 05/02/24 05/02/24 10:54 11:02 Temperature Pulse Rate 75 77 Respiratory Rate Blood Pressure O2 Sat by Pulse Oximetry Medical Decision Making - Medical Decision Making EKG is interpreted by myself but EKG shows a sinus rhythm at 73 bpm MT interval 160 QRS is 146 QT interval 391 QTc is 416. Patient's EKG shows a right bundle branch block. Was pt. sent in by a medical professional or institution (Dr., PA, LEACH RUNNER, urgent care, hospital, or halfway...) When possible be specific @ -No Did you speak to anyone other than the patient for history (EMS, parent, family, police, friend...)? What history was obtained from this source @ -No Did you review nursing and triage notes (agree or disagree)? Why? @ -I reviewed and agree with nursing and triage notes Were old charts reviewed (outside hosp., previous admission, EMS record, old EKG, old radiological studies, urgent care reports/EKG's, halfway records)? Report findings @ -No old charts were reviewed Differential Diagnosis? @ -Differential Chest Pain: Stable Angina, Unstable Angina, STEMI, NSTEMI Aortic Dissection, Pneumothorax, Musculoskeletal, Esophageal Spasm GERD, Cholecystitis, Pancreatitis, Zoster, this is not meant to be an all-inclusive list. EKG interpreted by me (3pts min.). @ -As above X-rays interpreted by me (1pt min.). @ -Chest x-ray shows no acute abnormality CT interpreted by me (1pt min.). @ -None done U/S interpreted by me (1pt. min.). @ -None done What testing was considered but not performed or refused? (CT, X-rays, U/S, labs)? Why? @ -None What meds were considered but not given or refused? Why? @ -None Did you discuss the management of the patient with other professionals (professionals i.e. S[facility], LEACH RUNNER, lab, RT, psych nurse, rn social services, plant health care technician, teacher, aoc director combat operations officer, bottle caser)? Give summary @ -I spoke with sound physicians he agreed to admit the patient Was smoking cessation discussed for >3mins.? @ -No Was critical care preformed (if so, how long)? @ -No Were there social determinants of health that impacted care today? How? (Homelessness, low income, unemployed, alcoholism, drug addiction, transportation, low edu. Level, literacy, decrease access to med. care, half-way, rehab)? @ -No Was there de-escalation of care discussed even if they declined (Discuss DNR or withdrawal of care, Hospice)? DNR status @ -No What co-morbidities impacted this encounter? (DM, HTN, Smoking, COPD, CAD, Cancer, CVA, ARF, Chemo, Hep., AIDS, mental health diagnosis, sleep apnea, morbid obesity)? @ -None Was patient admitted / discharged? Hospital course, mention meds given and route, prescriptions, significant lab abnormalities, going to OR and other pertinent info. @ -I went back into reevaluate the patient patient continued to have chest pain. He describes it as a pressure sensation. Patient did receive a breathing treatment and steroids and was feeling better as far as his breathing goes. Patient also got some Lasix for the edema in his legs. Undiagnosed new problem with uncertain prognosis? @ -No Drug Therapy requiring intensive monitoring for toxicity (Heparin, Nitro, Insulin, Cardizem)? @ -No Were any procedures done? @ -No Diagnosis/symptom? @ -Chest pain Acute, or Chronic, or Acute on Chronic? @ -Acute Uncomplicated (without systemic symptoms) or Complicated (systemic symptoms)? @ -Comp Side effects of treatment? @ -No Exacerbation, Progression, or Severe Exacerbation? @ -No Poses a threat to life or bodily function? How? (Chest pain, [place], MO, pneumonia, PE, COPD, DKA, ARF, appy, cholecystitis, CVA, Diverticulitis, Homicidal, Suicidal, threat to staff... and all critical care pts) @ -Yes this could lead to an MO and endorgan dysfunction Diagnosis/symptom? @ -COPD exacerbation Acute, or Chronic, or Acute on Chronic? @ -Default Uncomplicated (without systemic symptoms) or Complicated (systemic symptoms)? @ -Acute complicated Side effects of treatment? @ -None Exacerbation, Progression, or Severe Exacerbation] @ -No Poses a threat to life or bodily function? @ -Yes this can lead to hypoxia and endorgan dysfunction - Lab Data Result diagrams: 05/02/24 09:57 05/02/24 09:57 Lab Results 05/02/24 05/02/24 05/02/24 Range/Units 09:57 09:57 09:57 WBC 5.1 (3.8-10.6) k/uL RBC 4.04 L (4.30-5.90) m/uL Hgb 12.7 L (13.0-17.5) gm/dL Hct 39.4 (39.0-53.0) % MCV 97.3 (80.0-100.0) fL MCH 31.4 (25.0-35.0) pg MCHC 32.3 (31.0-37.0) g/dL RDW 13.4 (11.5-15.5) % Plt Count 154 (150-450) k/uL MPV 6.9 Neutrophils % (Manual) 59 % Lymphocytes % (Manual) 24 % Monocytes % (Manual) 11 % Eosinophils % (Manual) 6 % Neutrophils # (Manual) 3.01 (1.3-7.7) k/uL Lymphocytes # (Manual) 1.22 (1.0-4.8) k/uL Monocytes # (Manual) 0.56 (0-1.0) k/uL Eosinophils # (Manual) 0.31 (0-0.7) k/uL Nucleated RBCs 0 (0-0) /100 WBC Manual Slide Review Performed PT 10.0 (10.0-12.5) sec INR 0.9 (<1.2) APTT 24.0 (22.0-30.0) sec Sodium 136 L (137-145) mmol/L Potassium 4.2 (3.5-5.1) mmol/L Chloride 100 (98-107) mmol/L Carbon Dioxide 37 H (22-30) mmol/L Anion Gap -1 mmol/L BUN 31 H (9-20) mg/dL Creatinine 1.44 H (0.66-1.25) mg/dL Est GFR (CKD-EPI)AfAm 53 (>60 ml/min/1.73 sqM) Est GFR (CKD-EPI)NonAf 46 (>60 ml/min/1.73 sqM) Glucose 91 (74-99) mg/dL Plasma Lactic Acid Fabiano (0.7-2.0) mmol/L Calcium 8.8 (8.4-10.2) mg/dL Total Bilirubin 0.3 (0.2-1.3) mg/dL AST 32 (17-59) U/L ALT 21 (4-49) U/L Alkaline Phosphatase 78 (38-126) U/L Troponin I (0.000-0.034) ng/mL NT-Pro-B Natriuret Pep 215 pg/mL Total Protein 6.2 L (6.3-8.2) g/dL Albumin 4.0 (3.5-5.0) g/dL 12/25/24 12/25/24 Range/Units 09:57 09:57 WBC (3.8-10.6) k/uL RBC (4.30-5.90) m/uL Hgb (13.0-17.5) gm/dL Hct (39.0-53.0) % MCV (80.0-100.0) fL MCH (25.0-35.0) pg MCHC (31.0-37.0) g/dL RDW (11.5-15.5) % Plt Count (150-450) k/uL MPV Neutrophils % (Manual) % Lymphocytes % (Manual) % Monocytes % (Manual) % Eosinophils % (Manual) % Neutrophils # (Manual) (1.3-7.7) k/uL Lymphocytes # (Manual) (1.0-4.8) k/uL Monocytes # (Manual) (0-1.0) k/uL Eosinophils # (Manual) (0-0.7) k/uL Nucleated RBCs (0-0) /100 WBC Manual Slide Review PT (10.0-12.5) sec INR (<1.2) APTT (22.0-30.0) sec Sodium (137-145) mmol/L Potassium (3.5-5.1) mmol/L Chloride (98-107) mmol/L Carbon Dioxide (22-30) mmol/L Anion Gap mmol/L BUN (9-20) mg/dL Creatinine (0.66-1.25) mg/dL Est GFR (CKD-EPI)AfAm (>60 ml/min/1.73 sqM) Est GFR (CKD-EPI)NonAf (>60 ml/min/1.73 sqM) Glucose (74-99) mg/dL Plasma Lactic Acid Fabiano 0.8 (0.7-2.0) mmol/L Calcium (8.4-10.2) mg/dL Total Bilirubin (0.2-1.3) mg/dL AST (17-59) U/L ALT (4-49) U/L Alkaline Phosphatase (38-126) U/L Troponin I 0.013 (0.000-0.034) ng/mL NT-Pro-B Natriuret Pep pg/mL Total Protein (6.3-8.2) g/dL Albumin (3.5-5.0) g/dL Disposition Clinical Impression: Chest pain, COPD exacerbation Disposition: ADMITTED IP TO THIS HOSP Referrals: [facility],Clinic [Primary Care Provider] - 1-2 days Time of Disposition: 11:14
[2024-05-02] MEDS: FUROSEMIDE 10 MG/ML 4 ML VIAL IV STA (10:11)
[2024-05-02 10:16] LABS: INR 0.9 (<1.2)
--- NOTE | 2024-05-02 10:22 | XR ---
EXAMINATION TYPE: XR chest 2V DATE OF EXAM: 05/02/2024 10:09 AM CLINICAL INDICATION:Male, 78 years old with history of difficulty breathing; [facility] COMPARISON: Chest radiograph 04/10/2024 TECHNIQUE: XR chest 2V Frontal view of the chest. FINDINGS: Lungs/Pleura: Bilateral hazy patchy airspace opacities in the lower lung zones. No pneumothorax. Pulmonary vascularity: Mild pulmonary vascular congestion. Heart/mediastinum: Cardiomediastinal silhouette is unremarkable. Musculoskeletal: No acute osseous pathology. Other findings: None IMPRESSION: Bilateral hazy airspace disease may relate to an infectious/inflammatory process. [facility], , 05/02/2024 10:20 AM
[2024-05-02 10:39] LABS: HCT 39.4 % (39.0-53.0); HGB 12.7 gm/dL (13.0-17.5); MCH 31.4 pg (25.0-35.0); MCHC 32.3 g/dL (31.0-37.0); MCV 97.3 fL (80.0-100.0); Mean Platelet Volume 6.9; Platelet Count 154 k/uL (150-450); RBC 4.04 m/uL (4.30-5.90); RDW 13.4 % (11.5-15.5); WBC 5.1 k/uL (3.8-10.6)
[2024-05-02 10:54] LABS: Eosinophils # (M) 0.31 k/uL (0-0.7); Lymphocytes # (M) 1.22 k/uL (1.0-4.8); Monocytes # (M) 0.56 k/uL (0-1.0); Neutrophils # (M) 3.01 k/uL (1.3-7.7); Neutrophils % (M) 59 %; Nucleated Red Blood Cells 0 /100 WBC (0-0); Total Cells Counted 100
[2024-05-02] MEDS: IPRATROPIUM-ALBUTEROL 3 ML NEB INHALATION STA (10:54)
[2024-05-02 10:55] LABS: ALT 21 U/L (4-49); AST 32 U/L (17-59); African American GFR (CKD) 53 (>60 ml/min/1.73 sqM); Alkaline Phosphatase 78 U/L (38-126); Anion Gap -1 mmol/L; Blood Urea Nitrogen 31 mg/dL (9-20); Calcium 8.8 mg/dL (8.4-10.2); Carbon Dioxide 37 mmol/L (22-30); Chloride 100 mmol/L (98-107); Glucose 91 mg/dL (74-99); Non-African American GFR(CKD) 46 (>60 ml/min/1.73 sqM); Potassium 4.2 mmol/L (3.5-5.1); Sodium 136 mmol/L (137-145); Total Bilirubin 0.3 mg/dL (0.2-1.3); Total Protein 6.2 g/dL (6.3-8.2)
[2024-05-02 11:04] LABS: NT-Pro-B-Type Natriuretic Pept 215 pg/mL
[2024-05-02] MEDS ORDERED: ACETAMINOPHEN TAB 325 MG TAB PO PRN (11:16)
[2024-05-02] MEDS ORDERED: NITROGLYCERIN SL TABS 0.4 MG TAB SUBLINGUAL PRN (12:05)
[2024-05-02] MEDS ORDERED: NALOXONE 0.4 MG/ML 1 ML VIAL IVP PRN (12:05)
[2024-05-02] MEDS: ASPIRIN 81 MG PO STA (12:20)
[2024-05-02] MEDS: SODIUM CHLORIDE 0.9% 1,000 ML IV ONE (12:21)
[2024-05-02] MEDS ORDERED: ALBUTEROL NEBULIZED 2.5 MG/3 ML INHALATION PRN (12:42)
[2024-05-02] MEDS ORDERED: ARTIFICIAL TEARS-HYPROMELLOSE DROPS 15 ML BTL BOTH EYES PRN (12:42)
[2024-05-02] MEDS: AMIODARONE 200 MG TAB PO SCH (12:51)
[2024-05-02] MEDS: APIXABAN 5 MG TAB PO SCH (12:53)
--- NOTE | 2024-05-02 13:51 | P.HPIM ---
History of Present Illness H&P Date: 05/02/24 History of Presenting Illness: Patient is a very pleasant 78-year-old male with a past medical history of COPD with chronic hypoxic respiratory failure 4 L home O2 dependent with continued nicotine dependence, hypertension, hyperlipidemia, chronic systolic heart failure, paroxysmal atrial fibrillation, renal cell carcinoma status post right nephrectomy now with CKD stage IIIb and history of macular degeneration with retinal detachment resulting in patient being legally blind. He presented to the emergency department secondary to worsening shortness of breath and chest pressure over the past 2 to 3 days. Patient reports he has been on 4 L home oxygen for a while but states since his last admission he has been doing great and his primary patrol deputy sheriff Dr. Ware put him on prednisone 5 mg daily and he has been going most days without any oxygen and only using at night but states over the past 2 to 3 days he began to notice increased shortness of breath worse with any exertion along with increased cough and chest tightness. Patient does report mostly dry cough but occasional production of sputum in which she reports is clear. Patient reports midsternal chest tightness/pain constant but when asked does state he thinks it might be worse with cough. Patient does have chronic lower extremity edema but states he has not noticed a significant increase in the swelling but also admits to not paying too close of attention. He denies having any fevers, chills, diaphoresis, headache, lightheadedness, dizziness, palpitations, nausea, or vomiting. Upon arrival to our facility, patient underwent evaluation in the emergency department.. Vital signs upon arrival show blood pressure 128/62, heart rate 81, respiratory rate 24, temp 98.5 F, and SpO2 of 88% on 4 L increasing to 5L with SPO2 improving to 99%.. EKG completed showing normal sinus rhythm at 73 bpm with a right bundle branch block. Chest x-ray showing bilateral hazy appearance concerning for infectious/inflammatory process. Labs completed and reviewed. CBC showing normocytic anemia with hemoglobin of 12.7. BMP showing hypercarbia with bicarb of 37, BUN of 31, creatinine of 1.44, GFR 46. Troponin was 0.013 and proBNP was 215. Cepheid 4 Plex panel positive for COVID-19. Patient admitted under our services with consultation to pulmonology and cardiology. Review of systems: Pertinent positives and negatives as discussed in HPI, a complete review of systems was performed and all other systems are negative. Physical exam: Vital signs reviewed and stable. General: Nontoxic, no distress and appears stated age. Derm: Skin warm and dry, normal coloration for ethnicity. Head: Atraumatic, normocephalic and symmetric. Eyes: EOM's intact, no lid lag, and anicteric sclera Mouth: no lip lesions, mucus membranes moist Cardiovascular: regular rate and rhythm with normal S1S2, soft systolic murmur, positive posterior tibial pulses bilaterally, and cap refill < 2 seconds. Lungs: Respirations even, regular, and unlabored on supplemental oxygen. Lungs tight and diminished, no rhonchi, no rales, no wheezing, and no accessory muscle usage. Patient does have noted conversational dyspnea after approximately 4 words. Abdominal: soft, nontender to palpation, no guarding, no appreciable organomegaly Ext: ROM intact. No gross muscle atrophy, 1+ pitting bilateral lower extremity edema, no contractures Neuro: Speech clear, face symmetrical and CN II-XII grossly intact with no noted focal neuro deficits Psych: Alert and oriented to person, place, time, and situation. Appropriate and pleasant affect. Assessment and Plan of Care: Acute on chronic respiratory failure with hypoxia and hypercapnia COPD with acute exacerbation COVID 19 infection -Oxygenation to be administered and titrated as needed to maintain SPO2 equal to or greater than 90%. Baseline oxygen 4 L -Telemetry monitoring. -Encourage Incentive Spirometry 10-15x hourly while awake -Steroids: Solu-Medrol 60 mg IVP every 6 hours -Pulmonology consulted, appreciate further recommendations. -Strict Droplet plus Contact precautions -Continue with Ventolin inhaler every 4 hours scheduled and as needed nebulizer treatments. -Continue Symbicort 160-4.5 mcg inhaler 2 puffs twice daily and Daliresp 500 mcg daily. Chest pain, suspect secondary to pleurisy vs costochondritis resulting from current COPD exacerbation and COVID-19 infection Paroxysmal atrial fibrillation, currently maintaining sinus mechanism Hypertension Chronic systolic heart failure, not in acute exacerbation -Cardiology consulted by ED physician, appreciate recommendations -Telemetry monitoring -Trend troponins -Continue cardiac medication regimen with aspirin 81 mg daily, Eliquis 5 mg twice daily, amiodarone 200 mg daily, Bumex 1 mg twice daily, digoxin 125 mcg daily, and as needed sublingual nitroglycerin as needed for chest pain/discomfort. -Follow-up in digoxin level CKD stage IIIb status post right nephrectomy -BUN 31, creatinine 1.44, GFR 46, appears to be stable and at baseline. Will continue to monitor with repeat a.m. labs. Macular degeneration with history of retinal detachment and legally blind -Patient to be provided with assistance as needed and to continue prescription eyedrops.. -Fall precautions in place. Anxiety with depression -Continue daily medication regimen with Wellbutrin 150 mg twice daily and trazodone 50 mg nightly. Peripheral neuropathy -Continue Neurontin 200 mg twice daily. Data and imaging reviewed: As stated above in HPI The patient is admitted with an anticipated greater than 2 midnight stay for evaluation of acute on chronic respiratory failure with hypoxia and hypercapnia secondary to COPD exacerbation and COVID-19 infection. CODE STATUS: Full code DVT prophylaxis: Eliquis Anticipated discharge date: Pending clinical course Anticipated discharge place: Home Patient was seen independently by Nurse Practitioner. This document was prepared using [employer] dictation software. Please allow for errors in child care nurse while rare they do occur. Padilla Pham NP rendered care for this patient independently, reviewed the findings and plan as documented in the note above and agree with plan. I did not physically speak with or examine the patient on this date. Past Medical History Past Medical History: Atrial Fibrillation, Cancer, COPD, Eye Disorder, Hearing Disorder / Deafness, Hyperlipidemia, Hypertension, Osteoarthritis (OA) Additional Past Medical History / Comment(s): Emphysema (takes inhalers and uses oxygen at home). Hx Kidney Cancer in 2006, R nephrectomy.q Left eye detached retina. Wet Macular Degeneration right eye. Hx Melanoma on back. Bilateral hearing aid use, legally blind. History of Any Multi-Drug Resistant Organisms: None Reported Past Surgical History: Back Surgery Additional Past Surgical History / Comment(s): Right kidney removed. Left eye surgery X3 for detacted retina. Bilateral cataract surgery. Mohs surgery thoracic spine for melanoma.plate in right arm, bilateral eye lids lifted Past Anesthesia/Blood Transfusion Reactions: Previous Problems w/ Anesthesia Additional Past Anesthesia/Blood Transfusion Reaction / Comment(s): States low heart rate, light-headed and low BP X1 with anesthesia. "Got broke vocal cord and could not talk for 2 months after anesthesia one time." Past Psychological History: Anxiety, Depression Smoking Status: Current every day smoker Past Alcohol Use History: Occasional Past Drug Use History: None Reported - Past Family History Mother Family Medical History: Cancer Additional Family Medical History / Comment(s): Brain Cancer. Father Family Medical History: CVA/TIA Medications and Allergies Home Medications Medication Instructions Recorded Confirmed Type Vit C/E/Zn/Coppr/Lutein/Zeaxan 1 cap PO BID 08/03/17 05/02/24 History [Preservision Areds 2 Softgel] Apixaban [Eliquis] 5 mg PO BID 30 Days #60 tab 11/26/20 05/02/24 Rx Amiodarone [Cordarone] 200 mg PO DAILY 12/02/20 05/02/24 History Roflumilast [Daliresp] 500 mcg PO DAILY 01/17/21 05/02/24 History Potassium Chloride ER [K-Dur 20] 20 meq PO DAILY #30 tab 01/26/21 05/02/24 Rx Digoxin [Lanoxin] 125 mcg PO DAILY 11/15/21 05/02/24 History Albuterol Inhaler [Ventolin Hfa 2 puff INHALATION RT-Q6H PRN 04/26/23 05/02/24 History Inhaler] Cholecalciferol [Vitamin D3 (25 25 mcg PO DAILY 04/26/23 05/02/24 History Mcg = 1000 Iu)] Fluticasone Propion/Salmeterol 1 puff INHALATION RT-BID 04/26/23 05/02/24 History [Wixela 500-50 Inhub] Tiotropium 2.5 Mcg/Puff [Spiriva 2 puff INHALATION RT-DAILY 04/26/23 05/02/24 History Respimat 2.5 Mcg] buPROPion [Wellbutrin] 150 mg PO BID 04/26/23 05/02/24 History Albuterol Nebulized [Ventolin 2.5 mg INHALATION RT-Q4H 02/15/24 05/02/24 History Nebulized] Bumetanide [BUMEX] 1 mg PO BID 02/15/24 05/02/24 History Carboxymethylcellulose Sodium 1 drop BOTH EYES Q6H PRN 02/15/24 05/02/24 History [Refresh Tears] Gabapentin [Neurontin] 200 mg PO BID 02/15/24 05/02/24 History Lidocaine 5% Patch [Lidoderm 5% 1 patch TRANSDERM DAILY 02/15/24 05/02/24 History Patch] traZODone HCL [Desyrel] 50 mg PO HS 02/15/24 05/02/24 History Sennosides/Docusate Sodium [Senna 1 tab PO BID 05/02/24 05/02/24 History Plus 8.6-50 mg Tablet] predniSONE 5 mg PO DAILY 05/02/24 05/02/24 History Allergies Allergy/AdvReac Type Severity Reaction Status Date / Time atorvastatin [From Lipitor] AdvReac Muscle pain Verified 05/02/24 12:10 Physical Exam Vitals: Vital Signs Temp Pulse Resp BP Pulse Ox 05/02/24 12:05 76 21 123/59 93 L 05/02/24 11:02 77 05/02/24 10:54 75 05/02/24 10:00 74 21 115/59 96 05/02/24 09:35 18 99 05/02/24 09:28 98.5 F 81 24 128/62 88 L Intake and Output 05/01/24 05/02/24 05/02/24 22:59 06:59 14:59 Other: Weight 104.326 kg Results CBC & Chem 7: 05/02/24 09:57 05/02/24 09:57 Labs: Abnormal Lab Results - Last 24 Hours (Table) 05/02/24 05/02/24 05/02/24 Range/Units 09:57 09:57 11:54 RBC 4.04 L (4.30-5.90) m/uL Hgb 12.7 L (13.0-17.5) gm/dL Sodium 136 L (137-145) mmol/L Carbon Dioxide 37 H (22-30) mmol/L BUN 31 H (9-20) mg/dL Creatinine 1.44 H (0.66-1.25) mg/dL Total Protein 6.2 L (6.3-8.2) g/dL SARS-CoV-2 (PCR) Detected A (Not Detectd)
[2024-05-02] MEDS ORDERED: ALBUTEROL HFA INHALER INHALATION PRN (14:52)
[2024-05-02] MEDS ORDERED: IPRATROPIUM 0.5 MG/2.5 ML NEBU INHALATION SCH (16:00)
[2024-05-02] MEDS ORDERED: IPRATROPIUM-ALBUTEROL 3 ML NEB INHALATION SCH (16:00)
[2024-05-02] MEDS ORDERED: ALBUTEROL NEBULIZED 2.5 MG/3 ML INHALATION SCH (16:00)
[2024-05-02] MEDS: ALBUTEROL HFA INHALER INHALATION SCH (16:05)
[2024-05-02] MEDS: BUMETANIDE 1 MG TAB PO SCH (17:28)
[2024-05-02] MEDS: methylPREDNISolone SOD SUCCI 125 MG/2 ML VIAL IV SCH (17:28)
[2024-05-02] MEDS: NITROGLYCERIN OINT 1 INCH/GM PACKET TOPICAL SCH (17:29)
[2024-05-02] MEDS: GABAPENTIN 100 MG CAP PO SCH (20:30)
[2024-05-02] MEDS: buPROPion 75 MG TAB PO SCH (20:30)
[2024-05-02] MEDS: SENNOSIDES-DOCUSATE SODIUM 1 EACH TAB PO SCH (20:30)
[2024-05-02] MEDS: AMOXIC-POT CLAV 875-125MG 1 EACH TAB PO SCH (20:30)
[2024-05-02] MEDS: traZODone HCL 50 MG TAB PO SCH (20:31)
[2024-05-02] MEDS: VIT A,C & E-LUTEIN-MINERALS 1 EACH TAB PO SCH (20:31)
[2024-05-02] MEDS: SYMBICORT 160-4.5 MCG INHALER INHALATION SCH (20:38)
[2024-05-02] MEDS ORDERED: OSELTAMIVIR 75 MG CAP PO SCH (21:00)
[2024-05-03] MEDS: MELATONIN 5 MG TABLET PO ONE (00:45)
[2024-05-03] MEDS ORDERED: ASPIRIN 325 MG TAB PO SCH (09:00)
[2024-05-03] MEDS: ALBUTEROL HFA INHALER INHALATION SCH (09:18)
[2024-05-03] MEDS: TIOTROPIUM 2.5 MCG INHALER INHALATION SCH (09:18)
[2024-05-03] MEDS: CHOLECALCIFEROL 25 MCG (1000 IU) TABLET PO SCH (09:25)
[2024-05-03] MEDS: ASPIRIN 81 MG PO SCH (09:25)
[2024-05-03] MEDS: DIGOXIN 125 MCG TAB PO SCH (09:26)
[2024-05-03] MEDS: LIDOCAINE 4% PATCH TOPICAL SCH (09:27)
[2024-05-03 09:29] LABS: HCT 38.3 % (39.6-50.0); HGB 11.9 g/dL (13.0-17.0); MCH 30.7 pg (27.0-32.0); MCHC 31.1 g/dL (32.0-37.0); MCV 98.7 FL (80.0-97.0); NRBC Per 100 WBC 0 X 10*3/uL (0.00-0.01); Platelet Count 167 X 10*3/uL (140-440); RBC 3.88 X 10*6/uL (4.40-5.60); RDW 12.9 % (11.5-14.5); WBC 2.24 X 10*3/uL (4.50-10.00)
[2024-05-03] MEDS: ROFLUMILAST 500 MCG PO SCH (09:36)
[2024-05-03 10:38] LABS: ALT 20 U/L (10-49); AST 29 U/L (14-35); Alkaline Phosphatase 82 U/L (41-126); BUN/Creat Ratio 19.93 Ratio (12.00-20.00); Blood Urea Nitrogen 27.9 mg/dL (9.0-27.0); Calcium 8.9 mg/dL (8.7-10.3); Carbon Dioxide 32.5 mmol/L (21.6-31.8); Chloride 93 mmol/L (96-109); Chol/HDL Ratio 1.77 Ratio; Globulin 2.1 g/dL (1.6-3.3); Glucose 182 mg/dL (70-110); Potassium 4.9 mmol/L (3.5-5.5); Sodium 135 mmol/L (135-145); Total Bilirubin <0.2 mg/dL (0.3-1.2); Total Protein 6.1 g/dL (6.2-8.2); VLDL Calculation 8.06 mg/dL (5.00-40.00)
--- NOTE | 2024-05-03 11:41 | P.CNPUL ---
History of Present Illness Consult date: 05/03/24 Requesting physician: Padilla Pham Reason for consult: dyspnea, COPD, abnormal CXR/CT Chief complaint: Shortness of breath History of present illness: This is a pleasant 78-year-old male patient with a known history of severe oxygen dependent, steroid-dependent chronic obstructive pulmonary disease with an FEV1 value of 37% of predicted and follows with Dr. Ware in our office. He has been maintained on Wixela, Spiriva, albuterol, Daliresp and prednisone 5 mg daily. He has a history of paroxysmal atrial fibrillation, anticoagulated with Eliquis, obstructive sleep apnea with home CPAP, obesity, renal cell carcinoma status post right nephrectomy, hypertension, chronic and ongoing tobacco dependence. He presented here to the emergency room today with complaints of shortness of breath 2 to 3 days prior. He also was having some chest pressure. No significant cough or congestion. No fever or chills. White count 2.2. Hemoglobin 11.9. Platelets 167. Sodium 135. Potassium 4.9. Bicarb 28. Creatinine 1.4. Glucose 182. Troponin negative x 3. proBNP 215. Procalcitonin is negative at 0.14. He did test positive for COVID. Chest x-ray reveals bilateral hazy opacities. He is seen today in consultation on the regular medical floor. He is currently up in a chair. Awake and alert in no acute distress. Feeling a bit better today compared to yesterday. Review of Systems REVIEW OF SYSTEMS: CONSTITUTIONAL: Denies any recent significant weight loss or weight gain. EYES: Denies change in vision. EARS, NOSE, MOUTH, THROAT: Denies headaches, denies sore throat. CARDIOVASCULAR: Positive for chest pain, no palpitations or syncopal episodes. RESPIRATORY: Positive for shortness of breath, no cough, congestion or hemoptysis. GASTROINTESTINAL: Denies change in appetite, denies abdominal pain GENITOURINARY: Denies hematuria, denies infections. MUSKULOSKELETAL: Denies pain, denies swelling. INTEGUMENTARY: Denies rash, denies eczema. NEUROLOGICAL: Denies recent memory loss, no recent seizure activity. PSYCHIATRIC: Denies anxiety, denies depression. HEMATOLOGIC/LYMPHATIC: Denies anemia, denies enlarged lymph nodes. Past Medical History Past Medical History: Atrial Fibrillation, Cancer, COPD, Eye Disorder, Hearing Disorder / Deafness, Hyperlipidemia, Hypertension, Osteoarthritis (OA) Additional Past Medical History / Comment(s): Emphysema (takes inhalers and uses oxygen at home). Hx Kidney Cancer in 2007, R nephrectomy.q Left eye detached retina. Wet Macular Degeneration right eye. Hx Melanoma on back. Bilateral hearing aid use, legally blind. History of Any Multi-Drug Resistant Organisms: None Reported Past Surgical History: Back Surgery Additional Past Surgical History / Comment(s): Right kidney removed. Left eye surgery X3 for detacted retina. Bilateral cataract surgery. Mohs surgery thor acic spine for melanoma.plate in right arm, bilateral eye lids lifted Past Anesthesia/Blood Transfusion Reactions: Previous Problems w/ Anesthesia Additional Past Anesthesia/Blood Transfusion Reaction / Comment(s): States low heart rate, light-headed and low BP X1 with anesthesia. "Got broke vocal cord and could not talk for 2 months after anesthesia one time." Past Psychological History: Anxiety, Depression Smoking Status: Current some day smoker Past Alcohol Use History: Occasional Additional Past Alcohol Use History / Comment(s): States that he drinks Past Drug Use History: None Reported Additional Drug Use History / Comment(s): Quit smoking 12/27 - Past Family History Mother Family Medical History: Cancer Additional Family Medical History / Comment(s): Brain Cancer. Father Family Medical History: CVA/TIA Medications and Allergies Home Medications Medication Instructions Recorded Confirmed Type Vit C/E/Zn/Coppr/Lutein/Zeaxan 1 cap PO BID 08/03/17 05/02/24 History [Preservision Areds 2 Softgel] Apixaban [Eliquis] 5 mg PO BID 30 Days #60 tab 11/26/20 05/02/24 Rx Amiodarone [Cordarone] 200 mg PO DAILY 12/02/20 05/02/24 History Roflumilast [Daliresp] 500 mcg PO DAILY 01/17/21 05/02/24 History Potassium Chloride ER [K-Dur 20] 20 meq PO DAILY #30 tab 01/26/21 05/02/24 Rx Digoxin [Lanoxin] 125 mcg PO DAILY 11/15/21 05/02/24 History Albuterol Inhaler [Ventolin Hfa 2 puff INHALATION RT-Q6H PRN 04/26/23 05/02/24 History Inhaler] Cholecalciferol [Vitamin D3 (25 25 mcg PO DAILY 04/26/23 05/02/24 History Mcg = 1000 Iu)] Fluticasone Propion/Salmeterol 1 puff INHALATION RT-BID 04/26/23 05/02/24 History [Wixela 500-50 Inhub] Tiotropium 2.5 Mcg/Puff [Spiriva 2 puff INHALATION RT-DAILY 04/26/23 05/02/24 History Respimat 2.5 Mcg] buPROPion [Wellbutrin] 150 mg PO BID 04/26/23 05/02/24 History Albuterol Nebulized [Ventolin 2.5 mg INHALATION RT-Q4H 02/15/24 05/02/24 History Nebulized] Bumetanide [BUMEX] 1 mg PO BID 02/15/24 05/02/24 History Carboxymethylcellulose Sodium 1 drop BOTH EYES Q6H PRN 02/15/24 05/02/24 History [Refresh Tears] Gabapentin [Neurontin] 200 mg PO BID 02/15/24 05/02/24 History Lidocaine 5% Patch [Lidoderm 5% 1 patch TRANSDERM DAILY 02/15/24 05/02/24 History Patch] traZODone HCL [Desyrel] 50 mg PO HS 02/15/24 05/02/24 History Sennosides/Docusate Sodium [Senna 1 tab PO BID 05/02/24 05/02/24 History Plus 8.6-50 mg Tablet] predniSONE 5 mg PO DAILY 05/02/24 05/02/24 History Allergies Allergy/AdvReac Type Severity Reaction Status Date / Time atorvastatin [From Lipitor] AdvReac Muscle pain Verified 05/02/24 12:10 Physical Exam Vitals: Vital Signs Temp Pulse Pulse Resp BP BP BP 05/03/24 07:00 97.5 F L 63 20 136/70 05/03/24 02:07 72 17 05/03/24 00:14 97.6 F 72 17 128/66 05/02/24 20:33 64 19 05/02/24 19:13 98.2 F 64 19 143/66 05/02/24 15:00 98.0 F 67 16 111/55 05/02/24 14:33 98.6 F 66 21 125/66 05/02/24 12:05 76 21 123/59 Pulse Ox 05/03/24 07:00 92 L 05/03/24 02:07 05/03/24 00:14 94 L 05/02/24 20:33 05/02/24 19:13 97 05/02/24 15:00 94 L 05/02/24 14:33 96 05/02/24 12:05 93 L Intake and Output 05/02/24 05/03/24 05/03/24 22:59 06:59 14:59 Intake Total 240 Balance 240 Intake: Oral 240 Other: Voiding Method Toilet Toilet Toilet # Voids 2 1 Weight 104.326 kg GENERAL EXAM: Alert, pleasant 78-year-old male, on 2 L nasal cannula, up in a chair, comfortable in no apparent distress. HEAD: Normocephalic. EYES: Normal reaction of pupils, equal size. NOSE: Clear with pink turbinates. THROAT: No erythema or exudates. NECK: No masses, no JVD. CHEST: No chest wall deformity. LUNGS: Equal air entry with faint expiratory wheeze, diminished. CVS: S1 and S2 normal with no audible murmur, regular rhythm. ABDOMEN: No hepatosplenomegaly, normal bowel sounds, no guarding or rigidity. SPINE: No scoliosis or deformity SKIN: No rashes CENTRAL NERVOUS SYSTEM: No focal deficits, tone is normal in all 4 extremities. EXTREMITIES: There is no peripheral edema. No clubbing, no cyanosis. Peripheral pulses are intact. Results - Laboratory Findings CBC and BMP: 05/03/24 05:36 05/03/24 05:36 PT/INR, D-dimer PT 10.0 sec (10.0-12.5) 05/02/24 09:57 INR 0.9 (<1.2) 05/02/24 09:57 Abnormal lab findings: Abnormal Labs 05/02/24 05/02/24 05/02/24 09:57 09:57 11:54 WBC RBC 4.04 L Hgb 12.7 L Hct MCV MCHC Sodium 136 L Chloride Carbon Dioxide 37 H BUN 31 H Creatinine 1.44 H Est GFR (CKD-EPI) Glucose Total Bilirubin Total Protein 6.2 L HDL Cholesterol SARS-CoV-2 (PCR) Detected A 05/03/24 05/03/24 05:36 05:36 WBC 2.24 L RBC 3.88 L Hgb 11.9 L Hct 38.3 L MCV 98.7 H MCHC 31.1 L Sodium Chloride 93 L Carbon Dioxide 32.5 H BUN 27.9 H Creatinine Est GFR (CKD-EPI) 51 L Glucose 182 H Total Bilirubin <0.2 L Total Protein 6.1 L HDL Cholesterol 95.90 H SARS-CoV-2 (PCR) - Diagnostic Findings Chest x-ray: image reviewed Assessment and Plan Assessment: Acute on chronic hypoxemic respiratory failure secondary to an acute exacerbation of chronic obstructive pulmonary disease. Procalcitonin negative Acute COVID infection Severe oxygen dependent, steroid-dependent chronic obstructive pulmonary disease with an FEV1 value of 37% of predicted Chronic tobacco dependence Right nephrectomy Paroxysmal atrial fibrillation, anticoagulated with Eliquis Obstructive sleep apnea utilizing CPAP Obesity Hypertension Macular degeneration History of melanoma status post resection Mildly impaired left ventricular systolic function with ejection fraction 45% Plan: The patient was seen and evaluated Chest x-ray, labs and medications reviewed Continue Symbicort, Spiriva, Solu-Medrol, albuterol Continue his home CPAP, oxygen Procalcitonin negative No need for antibiotics Anticoagulated with Eliquis Probable discharge in the a.m. We will continue to follow and make further recommendations based on his clinical status I have personally seen and examined the patient, performed the documentation and the assessment and plan as written. Number of minutes spent on the visit: 20 Dictation was produced using [employer] dictation software. Please excuse any g rammatical, word or spelling errors.
--- NOTE | 2024-05-03 13:58 | P.PN ---
Subjective Progress Note Date: 05/03/24 Hospital Course: Patient is a very pleasant 78-year-old male with a past medical history of COPD with chronic hypoxic respiratory failure 4 L home O2 dependent with continued nicotine dependence, hypertension, hyperlipidemia, chronic systolic heart failure, paroxysmal atrial fibrillation, renal cell carcinoma status post right nephrectomy now with CKD stage IIIb and history of macular degeneration with retinal detachment resulting in patient being legally blind. He presented to the emergency department secondary to worsening shortness of breath and chest pressure over the past 2 to 3 days. Patient reports he has been on 4 L home oxygen for a while but states since his last admission he has been doing great and his primary supervisor glycerin Dr. Ware put him on prednisone 5 mg daily and he has been going most days without any oxygen and only using at night but states over the past 2 to 3 days he began to notice increased shortness of breath worse with any exertion along with increased cough and chest tightness. Vital signs upon arrival show SpO2 of 88% on 4 L increasing to 5L with SPO2 improving to 99%.. EKG completed showing normal sinus rhythm at 73 bpm with a right bundle branch block. Chest x-ray showing bilateral hazy appearance concerning for infectious/inflammatory process. Troponin was 0.013 and proBNP was 215. Cepheid 4 Plex panel positive for COVID-19. Patient admitted under our services with consultation to pulmonology and cardiology. Subjective: Patient feels better today, he was sitting in the recliner, denied chest pain or tightness, abdominal pain Pertinent positives and negatives as discussed above, a complete review of systems was performed and all other systems are negative. Vitals Signs Reviewed. General: [nontoxic], [no distress], [appears at stated age], very hard of hearing Derm: [warm], [dry] Head: [atraumatic], [normocephalic], [symmetric] Eyes: [EOMI], [no lid lag], [anicteric sclera] Mouth: [no lip lesion], [mucus membranes moist] Cardiovascular: [S1S2 reg], [no murmur] Lungs: [Diminished breath sounds bilaterally Abdominal: [soft], [ nontender to palpation], [no guarding], [no appreciable organomegaly] Ext: 1+ bilateral lower extremity edema Neuro: [ CN II-XI grossly intact], [no focal neuro deficits] Psych: [Alert], [oriented], [appropriate affect] Data Reviewed Today: Pertinent Labs: [] Imaging: [] Assessment and Plan: Acute on chronic hypoxic respiratory failure secondary to acute exacerbation of COPD Severe COPD on home oxygen Acute COVID-19 infection -Pulmonology consulted, appreciate recommendations -Continue inhalers as ordered -Solu-Medrol to 60 every 8 hours -Continue oxygen therapy -Continue CPAP -No indications for antibiotics at this time Paroxysmal A-fib on Eliquis HTN Chest pain likely due to pleurisy -Continue telemetry -Cardiology consulted by ED, appreciate recommendations -Continue home meds aspirin, amiodarone, Bumex 1 mg twice daily, digoxin 125 daily, as needed nitro CKD 3B Status post right nephrectomy -Kidney function stable, continue to monitor Macular degeneration with history of retinal detachment and legally blind -Patient to be provided with assistance as needed and to continue prescription eyedrops.. -Fall precautions in place. Anxiety with depression -Continue daily medication regimen with Wellbutrin 150 mg twice daily and trazodone 50 mg nightly. Peripheral neuropathy -Continue Neurontin 200 mg twice daily. DVT ppx: Eliquis Anticipated discharge place: 24 hours Anticipated discharge time: home Objective - Vital Signs Vital signs: Vital Signs Temp 97.5 F L 05/03/24 07:00 Pulse 63 05/03/24 07:00 Resp 20 05/03/24 07:00 BP 136/70 05/03/24 07:00 Pulse Ox 92 L 05/03/24 07:00 FiO2 Intake & Output 05/02/24 05/03/24 05/03/24 18:59 06:59 18:59 Intake Total 240 Balance 240 Weight 104.326 kg Intake: Oral 240 Other: Voiding Method Toilet Toilet # Voids 1 1 - Labs CBC & Chem 7: 05/03/24 05:36 05/03/24 05:36 Labs: Abnormal Lab Results - Last 24 Hours (Table) 05/03/24 05/03/24 Range/Units 05:36 05:36 WBC 2.24 L (4.50-10.00) X 10*3/uL RBC 3.88 L (4.40-5.60) X 10*6/uL Hgb 11.9 L (13.0-17.0) g/dL Hct 38.3 L (39.6-50.0) % MCV 98.7 H (80.0-97.0) FL MCHC 31.1 L (32.0-37.0) g/dL Chloride 93 L (96-109) mmol/L Carbon Dioxide 32.5 H (21.6-31.8) mmol/L BUN 27.9 H (9.0-27.0) mg/dL Est GFR (CKD-EPI) 51 L (>=60) Glucose 182 H (70-110) mg/dL Total Bilirubin <0.2 L (0.3-1.2) mg/dL Total Protein 6.1 L (6.2-8.2) g/dL HDL Cholesterol 95.90 H (40.00-60.00) mg/dL
[2024-05-03] MEDS: methylPREDNISolone SOD SUCCI 125 MG/2 ML VIAL IV SCH (16:33)
--- NOTE | 2024-05-03 16:56 | CA ---
Transthoracic Echo Report Name: Abhilash Senior Age: 78 Gender: M : 1945 Exam Date: 05/03/2024 11:37 Exam Location: [facility] Ht (in): 70 Wt (lb): 230 Ordering Physician: Paul Adler MD ([id number]) Attending/Referring Phys: Nayely NIETO [employer] Aislinn Santacruz RDCS Procedure CPT: Indications: Chest Pain Cardiac Hx: Technical Quality: Technically difficult study Contrast 1: Definity Total Dose (mL): 2 Contrast 2: Total Dose (mL): MEASUREMENTS (Male / Female) Normal Values 2D ECHO LV Diastolic Diameter PLAX 6.1 cm 4.2 - 5.9 / 3.9 - 5.3 cm LV Systolic Diameter PLAX 4.0 cm IVS Diastolic Thickness 1.0 cm 0.6 - 1.0 / 0.6 - 0.9 cm LVPW Diastolic Thickness 1.1 cm 0.6 - 1.0 / 0.6 - 0.9 cm LV Relative Wall Thickness 0.4 RV Internal Dim ED PLAX 3.2 cm LV Diastolic Volume MOD BP 102.2 cm??? 67 - 155 / 56 - 104 cm??? LV Systolic Volume MOD BP 44.3 cm??? 22 - 58 / 19 - 49 cm??? LV Ejection Fraction MOD BP 56.7 % >= 55 % LV Cardiac Index MOD BP 1861.5 cm???/min???m??? LV Diastolic Volume MOD 4C 103.1 cm??? LV Systolic Volume MOD 4C 42.7 cm??? LV Ejection Fraction MOD 4C 58.6 % LV Cardiac Index MOD 4C 1940.7 cm???/min???m??? LV Diastolic Length 4C 7.9 cm LV Systolic Length 4C 7.2 cm LV Diastolic Volume MOD 2C 102.1 cm??? LV Systolic Volume MOD 2C 44.1 cm??? LV Ejection Fraction MOD 2C 56.8 % LV Cardiac Index MOD 2C 1864.4 cm???/min???m??? LV Diastolic Length 2C 7.8 cm LV Systolic Length 2C 6.8 cm LA Volume 94.5 cm??? 18 - 58 / 22 - 52 cm??? LA Volume Index 41.0 cm???/m??? 16 - 28 cm???/m??? M-MODE Aortic Root Diameter MM 3.4 cm AV Cusp Separation MM 2.1 cm DOPPLER AV Peak Velocity 169.3 cm/s AV Peak Gradient 11.5 mmHg MV Area PHT 2.0 cm??? Mitral E Point Velocity 76.8 cm/s Mitral A Point Velocity 102.7 cm/s Mitral E to A Ratio 0.7 MV Deceleration Time 376.3 ms TR Peak Velocity 268.6 cm/s TR Peak Gradient 28.9 mmHg Right Ventricular Systolic Press 33.4 mmHg FINDINGS Left Ventricle Left ventricular ejection fraction is estimated at 55-60 %. Mildly increased left ventricular diastolic diameter. No obvious regional wall motion abnormalities. Right Ventricle Normal right ventricular size. Right ventricular systolic pressure within normal limits. Right Atrium Normal right atrial size. No right atrial thrombus or mass seen. Left Atrium Severely increased left atrial volume. Mildly increased left atrial area. Mitral Valve Mitral valve thickened. Mitral annular calcification. Aortic Valve Trileaflet aortic valve. No aortic valve stenosis or regurgitation. Tricuspid Valve Structurally normal tricuspid valve. Mild tricuspid regurgitation. Pulmonic Valve Pulmonic valve not well visualized. Pericardium No pericardial effusion. Aorta Normal size aortic root and proximal ascending aorta. CONCLUSIONS Technically suboptimal study Normal LV systolic function Previewed by: Dr. Paul Adler MD (Electronically Signed) Final Date: 03 May 2024 16:55
--- NOTE | 2024-05-03 21:19 | CONS ---
CONSULTATION HISTORY OF PRESENT ILLNESS: This is a 78-year-old gentleman with history of COPD, paroxysmal atrial fibrillation, who was admitted to hospital with worsening shortness of breath and some chest discomfort. He tested positive for COVID and his chest x-ray revealed bilateral infiltrate consistent with an infectious etiology. I have been consulted for evaluation of chest discomfort. He has mild pericardial chest pain. Had 3 sets of troponins that are all within normal limits and an EKG showed sinus rhythm with right bundle branch block. PAST MEDICAL HISTORY: Significant for COPD, paroxysmal atrial fibrillation. MEDICATIONS: At home included, 1. Wellbutrin. 2. Spiriva. 3. K-Dur. 4. Neurontin. 5. Lanoxin. 6. Bumex. 7. Eliquis. 8. Cordarone. 9. Albuterol. ALLERGIES: Lipitor. FAMILY HISTORY: Negative for premature coronary artery disease. SOCIAL HISTORY: Negative for smoking, EtOH abuse, or drug abuse. REVIEW OF SYSTEMS: review of systems has been performed. Pertinents are as documented in history of presenting illness. PHYSICAL EXAMINATION: VITAL SIGNS: The patient is afebrile. Heart rate is 63 beats per minute. Blood pressure is 136/70, respiratory rate is 20, O2 saturation is 92% on 2 L. CHEST: Reveals bilateral rhonchi. HEART: Reveals first and second heart sounds. No gallop. EXTREMITIES: Did not reveal any edema. Peripheral pulses are felt. LABORATORY DATA: Labs show that the hemoglobin is 11.9, platelet count is 167. Potassium is 4.9, creatinine is 1.4. ASSESSMENT: 1. Atypical chest pain, myocardial infarction ruled out. 2. COVID pneumonia. 3. Chronic obstructive pulmonary disease exacerbation. 4. Paroxysmal atrial fibrillation. PLAN: I will continue him on his current medications. We will obtain a 2D echo on him. MMODL / IJN: [id number] /
[2024-05-03] MEDS: MELATONIN 5 MG TABLET PO SCH (23:37)
[2024-05-04 09:19] LABS: Basophils % (A) 0 %; Eosinophils % (A) 0 %; HCT 38.6 % (39.0-53.0); HGB 12.7 gm/dL (13.0-17.5); Lymphocytes # (A) 0.8 k/uL (1.0-4.8); Lymphocytes % (A) 6 %; MCH 31.8 pg (25.0-35.0); MCHC 32.9 g/dL (31.0-37.0); MCV 96.6 fL (80.0-100.0); Mean Platelet Volume 7.9; Monocytes # (A) 0.5 k/uL (0-1.0); Monocytes % (A) 3 %; Neutrophils # (A) 13.6 k/uL (1.3-7.7); Neutrophils % (A) 91 %; Platelet Count 174 k/uL (150-450); RBC 3.99 m/uL (4.30-5.90); RDW 13.6 % (11.5-15.5)
--- NOTE | 2024-05-04 12:33 | P.PN ---
Subjective Progress Note Date: 05/04/24 This is a pleasant 78-year-old male patient with a known history of severe oxygen dependent, steroid-dependent chronic obstructive pulmonary disease with an FEV1 value of 37% of predicted and follows with Dr. Ware in our office. He has been maintained on Wixela, Spiriva, albuterol, Daliresp and prednisone 5 mg daily. He has a history of paroxysmal atrial fibrillation, anticoagulated with Eliquis, obstructive sleep apnea with home CPAP, obesity, renal cell carcinoma status post right nephrectomy, hypertension, chronic and ongoing tobacco dependence. He presented here to the emergency room today with complaints of shortness of breath 2 to 3 days prior. He also was having some chest pressure. No significant cough or congestion. No fever or chills. White count 2.2. Hemoglobin 11.9. Platelets 167. Sodium 135. Potassium 4.9. Bicarb 28. Creatinine 1.4. Glucose 182. Troponin negative x 3. proBNP 215. Procalcitonin is negative at 0.14. He did test positive for COVID. Chest x-ray reveals bilateral hazy opacities. He is seen today in consultation on the regular medical floor. He is currently up in a chair. Awake and alert in no acute distress. Feeling a bit better today compared to yesterday. The patient is seen today May 04, 2024 in follow-up on the regular medical floor. He is currently sitting up in a chair at the bedside. Awake and alert in no acute distress. Maintaining good O2 saturations in the 90s on 2 L/min per nasal cannula. He has been afebrile. Hemodynamically stable. Count 15.0. Hemoglobin 12.7. Platelets 174. He is continued on Symbicort, albuterol, Spiriva. Remains on Solu-Medrol. Empiric antibiotics in the form of Augmentin. Anticoagulated with Eliquis. Remains on oral diuretics. Objective - Vital Signs Vital signs: Vital Signs Temp 97.5 F L 05/04/24 07:00 Pulse 63 05/04/24 07:00 Resp 17 05/04/24 07:00 BP 142/74 05/04/24 07:00 Pulse Ox 94 L 05/04/24 07:00 FiO2 Intake & Output 05/03/24 05/04/24 05/04/24 18:59 06:59 18:59 Intake Total 238 236 Balance 238 236 Intake: Oral 238 236 Other: Voiding Method Toilet Toilet Toilet # Voids 2 2 - Exam GENERAL EXAM: Alert, oriented 78-year-old male, on 2 L nasal cannula, comfortable in no apparent distress. HEAD: Normocephalic. EYES: Normal reaction of pupils, equal size. NOSE: Clear with pink turbinates. THROAT: No erythema or exudates. NECK: No masses, no JVD. CHEST: No chest wall deformity. LUNGS: Equal air entry with no crackles, wheeze or rhonchi. CVS: S1 and S2 normal with no audible murmur, regular rhythm. ABDOMEN: No hepatosplenomegaly, normal bowel sounds, no guarding or rigidity. SPINE: No scoliosis or deformity SKIN: No rashes CENTRAL NERVOUS SYSTEM: No focal deficits, tone is normal in all 4 extremities. EXTREMITIES: There is no peripheral edema. No clubbing, no cyanosis. Peripheral pulses are intact. - Labs CBC & Chem 7: 05/04/24 08:43 05/03/24 05:36 Labs: Abnormal Lab Results - Last 24 Hours (Table) 05/04/24 Range/Units 08:43 WBC 15.0 H (3.8-10.6) k/uL RBC 3.99 L (4.30-5.90) m/uL Hgb 12.7 L (13.0-17.5) gm/dL Hct 38.6 L (39.0-53.0) % Neutrophils # 13.6 H (1.3-7.7) k/uL Lymphocytes # 0.8 L (1.0-4.8) k/uL Assessment and Plan Assessment: Acute on chronic hypoxemic respiratory failure secondary to an acute exacerbation of chronic obstructive pulmonary disease. Procalcitonin negative Acute COVID infection Severe oxygen dependent, steroid-dependent chronic obstructive pulmonary disease with an FEV1 value of 37% of predicted Chronic tobacco dependence Right nephrectomy Paroxysmal atrial fibrillation, anticoagulated with Eliquis Obstructive sleep apnea utilizing CPAP Obesity Hypertension Macular degeneration History of melanoma status post resection Mildly impaired left ventricular systolic function with ejection fraction 45% Plan: The patient was seen and evaluated Labs and medications reviewed Cleared for discharge from the pulmonary standpoint Continue his home oxygen, pulmonary medications Complete a prednisone taper Follow-up in our office in 1 week I have personally seen and examined the patient, performed the documentation and the assessment and plan as written. Number of minutes spent on the visit: 10 Dictation was produced using [employer] dictation software. Please excuse any grammatical, word or spelling errors.
--- NOTE | 2024-05-04 12:38 | P.DS ---
Providers Date of admission: 05/02/24 12:06 Attending physician: Flavia Vega MD Consults: 05/02/24 12:05 Consult Physician Urgent Consulting Provider: [facility] Consult Reason/Comments: Chest pain Do you want consulting provider notified?: Yes 05/02/24 13:11 Consult Physician Routine Consulting Provider: Gladys Du Reason/Comments: acute on chronic resp failure and COVID Do you want consulting provider notified?: Yes Primary care physician: [facility] Hospital Course: Discharge Diagnosis: Acute on chronic hypoxic respiratory failure secondary to acute exacerbation of COPD Severe COPD on home oxygen Acute COVID-19 infection Paroxysmal A-fib on Eliquis HTN Chest pain likely due to pleurisy Hospital Course: Patient is a very pleasant 78-year-old male with a past medical history of COPD with chronic hypoxic respiratory failure 4 L home O2 dependent with continued nicotine dependence, hypertension, hyperlipidemia, chronic systolic heart failure, paroxysmal atrial fibrillation, renal cell carcinoma status post right nephrectomy now with CKD stage IIIb and history of macular degeneration with retinal detachment resulting in patient being legally blind. He presented to the emergency department secondary to worsening shortness of breath and chest pressure over the past 2 to 3 days. Patient reports he has been on 4 L home oxygen for a while but states since his last admission he has been doing great and his primary parking control officer Dr. Ware put him on prednisone 5 mg daily and he has been going most days without any oxygen and only using at night but states over the past 2 to 3 days he began to notice increased shortness of breath worse with any exertion along with increased cough and chest tightness. Vital signs upon arrival show SpO2 of 88% on 4 L increasing to 5L with SPO2 improving to 99%.. EKG completed showing normal sinus rhythm at 73 bpm with a right bundle branch block. Chest x-ray showing bilateral hazy appearance conc erning for infectious/inflammatory process. Troponin was 0.013 and proBNP was 215. Cepheid 4 Plex panel positive for COVID-19. Patient admitted under our services with consultation to pulmonology and cardiology. Patient was started on Solu-Medrol 60 every 6 hours, CPAP, oxygen therapy, his respiratory status improved on steroids, patient will be discharged on prednisone taper, follow-up with his primary parking control officer. Cardiology recommended to continue home meds, no acute interventions required. Patient seen and examined at bedside, feels almost back to his baseline Vital signs reviewed and stable. General: [nontoxic], [no distress], [appears at stated age] Derm: [warm], [dry] Head: [atraumatic], [normocephalic], [symmetric] Eyes: [EOMI], [no lid lag], [anicteric sclera] Mouth: [no lip lesion], [mucus membranes moist] Cardiovascular: [S1S2 reg], [no murmur] Lungs: Decreased air entry bilaterally, on nasal cannula, not in respiratory distress, no accessory muscle use Abdominal: [soft], [ nontender to palpation], [no guarding], [no appreciable organomegaly] Ext: [no gross muscle atrophy], mild bilateral lower extremity edema, [no contractures] Neuro: [ CN II-XI grossly intact], [no focal neuro deficits] Psych: [Alert], [oriented], [appropriate affect] A total of 40 minutes of time were spent preparing this complex discharge summary. Patient was discharged on 05/04/24 Patient Condition at Discharge: Stable Plan - Discharge Summary Discharge Rx Participant: Yes New Discharge Prescriptions: New Aspirin 81 mg PO DAILY 90 Days #90 tab Melatonin 5 mg PO HS tab Continue Vit C/E/Zn/Coppr/Lutein/Zeaxan [Preservision Areds 2 Softgel] 1 cap PO BID Apixaban [Eliquis] 5 mg PO BID 30 Days #60 tab buPROPion [Wellbutrin] 150 mg PO BID Albuterol Inhaler [Ventolin Hfa Inhaler] 2 puff INHALATION RT-Q6H PRN PRN Reason: Shortness Of Breath Gabapentin [Neurontin] 200 mg PO BID Albuterol Nebulized [Ventolin Nebulized] 2.5 mg INHALATION RT-Q4H Bumetanide [BUMEX] 1 mg PO BID Sennosides/Docusate Sodium [Senna Plus 8.6-50 mg Tablet] 1 tab PO BID Amiodarone [Cordarone] 200 mg PO DAILY Roflumilast [Daliresp] 500 mcg PO DAILY Potassium Chloride ER [K-Dur 20] 20 meq PO DAILY #30 tab Digoxin [Lanoxin] 125 mcg PO DAILY Fluticasone Propion/Salmeterol [Wixela 500-50 Inhub] 1 puff INHALATION RT-BID Cholecalciferol [Vitamin D3 (25 Mcg = 1000 Iu)] 25 mcg PO DAILY Tiotropium 2.5 Mcg/Puff [Spiriva Respimat 2.5 Mcg] 2 puff INHALATION RT-DAILY traZODone HCL [Desyrel] 50 mg PO HS Lidocaine 5% Patch [Lidoderm 5% Patch] 1 patch TRANSDERM DAILY Carboxymethylcellulose Sodium [Refresh Tears] 1 drop BOTH EYES Q6H PRN PRN Reason: Dry Eye(S) Changed predniSONE See Taper PO DAILY 60 Days #120 tab Discharge Medication List Vit C/E/Zn/Coppr/Lutein/Zeaxan [Preservision Areds 2 Softgel] 1 cap PO BID 08/03/17 [History] Apixaban [Eliquis] 5 mg PO BID 30 Days #60 tab 11/26/20 [Rx] Amiodarone [Cordarone] 200 mg PO DAILY 12/02/20 [History] Roflumilast [Daliresp] 500 mcg PO DAILY 01/17/21 [History] Potassium Chloride ER [K-Dur 20] 20 meq PO DAILY #30 tab 01/26/21 [Rx] Digoxin [Lanoxin] 125 mcg PO DAILY 11/15/21 [History] Albuterol Inhaler [Ventolin Hfa Inhaler] 2 puff INHALATION RT-Q6H PRN 04/26/23 [History] Cholecalciferol [Vitamin D3 (25 Mcg = 1000 Iu)] 25 mcg PO DAILY 04/26/23 [History] Fluticasone Propion/Salmeterol [Wixela 500-50 Inhub] 1 puff INHALATION RT-BID 04/26/23 [History] Tiotropium 2.5 Mcg/Puff [Spiriva Respimat 2.5 Mcg] 2 puff INHALATION RT-DAILY 04/26/23 [History] buPROPion [Wellbutrin] 150 mg PO BID 04/26/23 [History] Albuterol Nebulized [Ventolin Nebulized] 2.5 mg INHALATION RT-Q4H 02/15/24 [History] Bumetanide [BUMEX] 1 mg PO BID 02/15/24 [History] Carboxymethylcellulose Sodium [Refresh Tears] 1 drop BOTH EYES Q6H PRN 02/15/24 [History] Gabapentin [Neurontin] 200 mg PO BID 02/15/24 [History] Lidocaine 5% Patch [Lidoderm 5% Patch] 1 patch TRANSDERM DAILY 02/15/24 [History] traZODone HCL [Desyrel] 50 mg PO HS 02/15/24 [History] Sennosides/Docusate Sodium [Senna Plus 8.6-50 mg Tablet] 1 tab PO BID 05/02/24 [History] Aspirin 81 mg PO DAILY 90 Days #90 tab 05/04/24 [Rx] Melatonin 5 mg PO HS tab 05/04/24 [Rx] predniSONE See Taper PO DAILY 60 Days #120 tab 05/04/24 [Rx] Follow up Appointment(s)/Referral(s): [facility] [NON-STAFF] - As Needed Chris Ware DO [Doctor of Osteopathic Medicine] - 1 Week [facility]inic [Primary Care Provider] - 1-2 days Patient Instructions/Handouts: How To Wash Your Hands (DC), COVID-19 (Coronavirus Disease 2019) (DC), Face Coverings (Masks) and COVID-19 (DC) Activity/Diet/Wound Care/Special Instructions: please, follow up with your PCP and parking control officer Discharge Disposition: HOME WITH HOME HEALTH SERVICES
[2024-05-04 13:20] VITALS: PULSE 65; RESP 16; TEMP 98
[2024-05-04 16:53] VITALS: BP 138/69
--- NOTE | 2024-05-04 21:37 | PN ---
PROGRESS NOTE SUBJECTIVE: A 78-year-old gentleman who was admitted to hospital with COVID infection and COPD exacerbation. This morning, he is feeling better. Shortness of breath has improved. An echocardiogram shows normal LV systolic function. An EKG showed sinus rhythm with right bundle branch block. OBJECTIVE: VITAL SIGNS: Afebrile. Vital signs are stable. CHEST: Shows bilateral diffuse rhonchi. HEART: Reveals first and second heart sounds. No gallop. ABDOMEN: Soft. EXTREMITIES: Did not reveal any edema. Peripheral pulses are felt. ASSESSMENT: Chronic obstructive pulmonary disease exacerbation secondary to COVID infection. PLAN: The patient is doing well. No further cardiac workup. Arrange followup with Dr. Rodgers, who sees him in the office. MMODL / IJN: [id number] /
[2024-05-05] MEDS ORDERED: predniSONE 10 MG TAB PO SCH (09:00)
== END 2024-05-04 18:30 | disposition home health service (06) | DRG 177 ==
LOC: EC 09:24 → 6NMEDSUR 12:05 → OBSVTOIN 12:06 → 6NMEDSUR 14:24
PROVIDERS: ADMIT Internal Medicine; ATTEND Internal Medicine
DX: U07.1 COVID-19 (principal); J96.21 Acute and chronic respiratory failure with hypoxia; I50.22 Chronic systolic (congestive) heart failure; I13.0 Hypertensive heart and chronic kidney disease with heart failure and stage 1 through stage 4 chronic kidney disease, or unspecified chronic kidney disease; M19.90 Unspecified osteoarthritis, unspecified site; N18.32 Chronic kidney disease, stage 3b; J43.9 Emphysema, unspecified; I45.10 Unspecified right bundle-branch block; I48.0 Paroxysmal atrial fibrillation; H91.90 Unspecified hearing loss, unspecified ear; H54.8 Legal blindness, as defined in USA; G47.33 Obstructive sleep apnea (adult) (pediatric); G62.9 Polyneuropathy, unspecified; F41.9 Anxiety disorder, unspecified; H35.30 Unspecified macular degeneration; F32.A Depression, unspecified; E78.5 Hyperlipidemia, unspecified; E66.9 Obesity, unspecified; D64.9 Anemia, unspecified; F17.210 Nicotine dependence, cigarettes, uncomplicated; Z79.01 Long term (current) use of anticoagulants; Z79.52 Long term (current) use of systemic steroids; Z79.899 Other long term (current) drug therapy; I07.1 Rheumatic tricuspid insufficiency; Z85.528 Personal history of other malignant neoplasm of kidney; Z85.820 Personal history of malignant melanoma of skin; Z90.5 Acquired absence of kidney; Z97.4 Presence of external hearing-aid; Z99.81 Dependence on supplemental oxygen; Z88.8 Allergy status to other drugs, medicaments and biological substances; Z71.6 Tobacco abuse counseling
CPT/HCPCS: 36415; 71046; 80053; 80061; 80162; 83605; 83735; 83880; 84145; 84484; 85025; 85027; 85610; 85730; 87636; 93005; 93306; 94640; 96374; 96375; 99285

== ENCOUNTER 2024-05-05 11:19 | Inpatient (IN) | payer OTHER, MEDICARE ==
--- NOTE | 2024-05-05 12:19 | ED ---
SOB HPI - General Source: patient, RN notes reviewed Mode of arrival: wheelchair Limitations: no limitations - History of Present Illness MD Complaint: shortness of breath <Feng Stoner - Last Filed: 05/05/24 12:17> <Teo Juárez - Last Filed: 05/05/24 14:04> - General Chief Complaint: Shortness of Breath Stated Complaint: MANN Time Seen by Provider: 05/05/24 11:35 - History of Present Illness Initial Comments: Quick note: This is a 78-year-old male with history of COPD, A-fib and O2 dependence presenting with shortness of breath starting yesterday. Patient sta santos he was recently admitted and diagnosed with COVID on 05/02/2024 with ongoing dyspnea HAZEL. Denies fever, chills, chest pain, abdominal pain, N/V/D. (Feng Stoner) Dictation was produced using [employer] dictation software. please excuse any grammatical, word or spelling errors. Chief Complaint: 78-year-old male presents to the emergency department for shortness of breath History of Present Illness: 78-year-old male presents emergency department shortness of breath. Patient was admitted to the hospital on . He was admitted for 2 days and just discharged yesterday. He was admitted for COVID-19 pneumonia, shortness of breath and COPD exacerbation states that he was discharged yesterday. When he was at home started to feel okay however when he tried to exert himself felt short of breath. This morning he woke up with worsening symptoms prompting him to contact EMS to come to the emergency department. Patient Nuys any pain complaints at the bedside. Rest home O2 at 2 L nasal cannula The ROS documented in this emergency department record has been reviewed and confirmed by me. Those systems with pertinent positive or negative responses have been documented in the HPI. All other systems are other negative and/or noncontributory. (Teo Juárez) - Related Data Home Medications Medication Instructions Recorded Confirmed Vit C/E/Zn/Coppr/Lutein/Zeaxan 1 cap PO BID 08/03/17 05/05/24 [Preservision Areds 2 Softgel] Amiodarone [Cordarone] 200 mg PO DAILY 12/02/20 05/05/24 Roflumilast [Daliresp] 500 mcg PO DAILY 01/17/21 05/05/24 Digoxin [Lanoxin] 125 mcg PO DAILY 11/15/21 05/05/24 Albuterol Inhaler [Ventolin Hfa 2 puff INHALATION RT-Q6H PRN 04/26/23 05/05/24 Inhaler] Cholecalciferol [Vitamin D3 (25 25 mcg PO DAILY 04/26/23 05/05/24 Mcg = 1000 Iu)] Fluticasone Propion/Salmeterol 1 puff INHALATION RT-BID 04/26/23 05/05/24 [Wixela 500-50 Inhub] Tiotropium 2.5 Mcg/Puff [Spiriva 2 puff INHALATION RT-DAILY 04/26/23 05/05/24 Respimat 2.5 Mcg] buPROPion [Wellbutrin] 150 mg PO BID 04/26/23 05/05/24 Albuterol Nebulized [Ventolin 2.5 mg INHALATION RT-Q4H 02/15/24 05/05/24 Nebulized] Bumetanide [BUMEX] 1 mg PO BID 02/15/24 05/05/24 Carboxymethylcellulose Sodium 1 drop BOTH EYES Q6H PRN 02/15/24 05/05/24 [Refresh Tears] Gabapentin [Neurontin] 200 mg PO BID 02/15/24 05/05/24 Lidocaine 5% Patch [Lidoderm 5% 1 patch TRANSDERM DAILY 02/15/24 05/05/24 Patch] traZODone HCL [Desyrel] 50 mg PO HS 02/15/24 05/05/24 Sennosides/Docusate Sodium [Senna 1 tab PO BID 05/02/24 05/05/24 Plus 8.6-50 mg Tablet] predniSONE [Deltasone] See Taper PO DIRECTED 05/05/24 05/05/24 Previous Rx's Medication Instructions Recorded Apixaban [Eliquis] 5 mg PO BID 30 Days #60 tab 11/26/20 Potassium Chloride ER [K-Dur 20] 20 meq PO DAILY #30 tab 01/26/21 Aspirin 81 mg PO DAILY #90 tab 05/04/24 Melatonin 5 mg PO HS tab 05/04/24 Allergies Allergy/AdvReac Type Severity Reaction Status Date / Time atorvastatin [From Lipitor] AdvReac Muscle pain Verified 05/05/24 12:28 Review of Systems ROS Other: All systems not noted in ROS Statement are negative. <Feng Stoner - Last Filed: 05/05/24 12:17> ROS Other: All systems not noted in ROS Statement are negative. <Teo Juárez - Last Filed: 05/05/24 14:04> ROS Statement: Those systems with pertinent positive or pertinent negative responses have been documented in the HPI. Past Medical History Past Medical History: Atrial Fibrillation, Cancer, COPD, Eye Disorder, Hearing Disorder / Deafness, Hyperlipidemia, Hypertension, Osteoarthritis (OA) Additional Past Medical History / Comment(s): Emphysema (takes inhalers and uses oxygen at home). Hx Kidney Cancer in 2006, R nephrectomy.q Left eye detached retina. Wet Macular Degeneration right eye. Hx Melanoma on back. Bilateral hearing aid use, legally blind. History of Any Multi-Drug Resistant Organisms: None Reported Past Surgical History: Back Surgery Additional Past Surgical History / Comment(s): Right kidney removed. Left eye surgery X3 for detacted retina. Bilateral cataract surgery. Mohs surgery thoracic spine for melanoma.plate in right arm, bilateral eye lids lifted Past Anesthesia/Blood Transfusion Reactions: Previous Problems w/ Anesthesia Additional Past Anesthesia/Blood Transfusion Reaction / Comment(s): States low heart rate, light-headed and low BP X1 with anesthesia. "Got broke vocal cord and could not talk for 2 months after anesthesia one time." Past Psychological History: Anxiety, Depression Smoking Status: Current some day smoker Past Alcohol Use History: Occasional Past Drug Use History: None Reported - Past Family History Mother Family Medical History: Cancer Additional Family Medical History / Comment(s): Brain Cancer. Father Family Medical History: CVA/TIA <Feng Stoner - Last Filed: 05/05/24 12:17> General Exam <Feng Stoner - Last Filed: 05/05/24 12:17> <Teo Juárez - Last Filed: 05/05/24 14:04> - General Exam Comments Initial Comments: Visual Physical Exam Vital signs reviewed General: Well-appearing, nontoxic. Patient seated in wheelchair with nasal cannula and some accessory muscle use Head: Normocephalic, atraumatic Eyes: PERRLA, EOMI ENT: Airway patent Chest: Nonlabored breathing Skin: No visual rash, normal skin tone Neuro: Alert and oriented 3 Musculoskeletal: No gross abnormalities (Feng Stoner) PHYSICAL EXAM: General Impression: Alert and oriented x3, not in acute distress HEENT: Normocephalic atraumatic, extra-ocular movements intact, pupils equal and reactive to light bilaterally, mucous membranes moist. Cardiovascular: Heart regular rate and rhythm Chest: Able to complete full sentences, no retractions, no tachypnea, diffuse end expiratory lung wheezing, diminished lung sounds Abdomen: abdomen soft, non-tender, non-distended, no organomegaly Musculoskeletal: Pulses present and equal in all extremities, no peripheral edema Motor: no focal deficits noted Neurological: CN II-XII grossly intact, no focal motor or sensory deficits noted Skin: Intact with no visualized rashes Psych: Normal affect and mood (Teo Juárez) Course Vital Signs 05/05/24 11:24 Temperature 97.8 F Pulse Rate 75 Respiratory 20 Rate Blood Pressure 147/72 O2 Sat by Pulse 98 Oximetry Medical Decision Making <Feng Stoner - Last Filed: 05/05/24 12:17> - Lab Data Result diagrams: 05/05/24 11:50 05/05/24 11:50 <Teo Juárez - Last Filed: 05/05/24 14:04> - Medical Decision Making I completed the quick note portion of this chart signed LYUDMILA Sumner (Feng Stoner) Was pt. sent in by a medical professional or institution ([facility], EQUIPMENT MAINTENANCE TECH, urgent care, hospital, or correction...) When possible be specific @ -No Did you speak to anyone other than the patient for history (EMS, parent, family, police, friend...)? What history was obtained from this source @ -No Did you review nursing and triage notes (agree or disagree)? Why? @ -I reviewed and agree with nursing and triage notes Were old charts reviewed (outside hosp., previous admission, EMS record, old EKG, old radiological studies, urgent care reports/EKG's, correction records)? Report findings @ -From yesterday was reviewed same patient was admitted for COVID-19 and COPD Differential Diagnosis (chest pain, altered mental status, abdominal pain women, abdominal pain men, vaginal bleeding, musculoskeletal, weakness, fever, dyspnea, syncope, headache, dizziness, GI bleed, back pain, seizure, CVA, palpatations, mental health)? @ -Differential Dyspnea: Coronary syndrome, arrhythmia, tamponade, asthma, COPD, pulmonary embolism, pneumonia, pneumothorax, pulmonary effusion, anaphylaxis, diabetic ketoacidosis, flailed chest, pulmonary contusion, diaphragmatic rupture, anemia, neuromuscular, this is not meant to be an all-inclusive list. EKG interpreted by me (3pts min.). @ -None done X-rays interpreted by me (1pt min.). @ -Chest x-ray shows no acute processes CT interpreted by me (1pt min.). @ -None done U/S interpreted by me (1pt. min.). @ -None done What testing was considered but not performed or refused? (CT, X-rays, U/S, labs)? Why? @ -None What meds were considered but not given or refused? Why? @ -None Was smoking cessation discussed for >3mins.? @ -No Were there social determinants of health that impacted care today? How? (Homelessness, low income, unemployed, alcoholism, drug addiction, transportation, low edu. Level, literacy, decrease access to med. care, residential, rehab)? @ -No Was there de-escalation of care discussed even if they declined (Discuss DNR or withdrawal of care, Hospice)? DNR status @ -No What co-morbidities impacted this encounter? (DM, HTN, Smoking, COPD, CAD, Cancer, CVA, ARF, Chemo, Hep., AIDS, mental health diagnosis, sleep apnea, morbid obesity)? @ -COPD Was patient admitted / discharged? Hospital course, mention meds given and route, prescriptions, significant lab abnormalities, going to OR and other pertinent info. @ -70-year-old male Keely presents to the hospital for shortness of breath. Vital signs upon arrival are within acceptable limits. Patient well-appearing at rest. Status report having have increased exertional dyspnea. Patient wheezing at the bedside. Laboratory evaluation obtained. Labs within acceptable limits. D-dimer is negative. Chest x-ray is nonacute. Clinical presentation consistent with COPD exacerbation. Patient given steroids breathing treatment will be admitted consultation pulmonology. Case discussed with hospitalist for admission Did you discuss the management of the patient with other professionals (professionals i.e. , PA, EQUIPMENT MAINTENANCE TECH, lab, RT, psych nurse, healthcare social worker, repairer veneer sheet, teacher, corporate responsibility officer, watch case polisher)? Give summary @ -No Was critical care preformed (if so, how long)? @ -No Undiagnosed new problem with uncertain prognosis? @ -No Drug Therapy requiring intensive monitoring for toxicity (Heparin, Nitro, Insulin, Cardizem)? @ -No Were any procedures done? @ -No Diagnosis/symptom? Acute, or Chronic, or Acute on Chronic? Uncomplicated (without systemic symptoms) or Complicated (systemic symptoms)? @ -COPD exacerbation Side effects of treatment? @ -No Exacerbation, Progression, or Severe Exacerbation? @ -No Poses a threat to life or bodily function? How? (Chest pain, [place], [place], pneumonia, PE, COPD, DKA, ARF, appy, cholecystitis, CVA, Diverticulitis, Homicidal, Suicidal, threat to staff... and all critical care pts) @ -yes (Teo Juárez) - Lab Data Lab Results 05/05/24 05/05/24 05/05/24 Range/Units 11:50 11:50 11:50 WBC 13.2 H (3.8-10.6) k/uL RBC 4.49 (4.30-5.90) m/uL Hgb 13.9 (13.0-17.5) gm/dL Hct 43.8 (39.0-53.0) % MCV 97.4 (80.0-100.0) fL MCH 31.0 (25.0-35.0) pg MCHC 31.8 (31.0-37.0) g/dL RDW 13.6 (11.5-15.5) % Plt Count 207 (150-450) k/uL MPV 7.5 Neutrophils % 80 % Lymphocytes % 11 % Monocytes % 8 % Eosinophils % 0 % Basophils % 0 % Neutrophils # 10.5 H (1.3-7.7) k/uL Lymphocytes # 1.4 (1.0-4.8) k/uL Monocytes # 1.0 (0-1.0) k/uL Eosinophils # 0.0 (0-0.7) k/uL Basophils # 0.0 (0-0.2) k/uL PT 9.9 L (10.0-12.5) sec INR 0.9 (<1.2) APTT 21.5 L (22.0-30.0) sec D-Dimer (<0.60) mg/L FEU Sodium 136 L (137-145) mmol/L Potassium 4.2 (3.5-5.1) mmol/L Chloride 90 L (98-107) mmol/L Carbon Dioxide 35 H (22-30) mmol/L Anion Gap 11 mmol/L BUN 41 H (9-20) mg/dL Creatinine 1.43 H (0.66-1.25) mg/dL Est GFR (CKD-EPI)AfAm 54 (>60 ml/min/1.73 sqM) Est GFR (CKD-EPI)NonAf 47 (>60 ml/min/1.73 sqM) Glucose 79 (74-99) mg/dL Plasma Lactic Acid Fabiano (0.7-2.0) mmol/L Calcium 9.2 (8.4-10.2) mg/dL Total Bilirubin 0.2 (0.2-1.3) mg/dL AST 26 (17-59) U/L ALT 25 (4-49) U/L Alkaline Phosphatase 77 (38-126) U/L Troponin I (0.000-0.034) ng/mL Total Protein 6.9 (6.3-8.2) g/dL Albumin 4.3 (3.5-5.0) g/dL 05/05/24 05/05/24 05/05/24 Range/Units 11:50 11:50 11:50 WBC (3.8-10.6) k/uL RBC (4.30-5.90) m/uL Hgb (13.0-17.5) gm/dL Hct (39.0-53.0) % MCV (80.0-100.0) fL MCH (25.0-35.0) pg MCHC (31.0-37.0) g/dL RDW (11.5-15.5) % Plt Count (150-450) k/uL MPV Neutrophils % % Lymphocytes % % Monocytes % % Eosinophils % % Basophils % % Neutrophils # (1.3-7.7) k/uL Lymphocytes # (1.0-4.8) k/uL Monocytes # (0-1.0) k/uL Eosinophils # (0-0.7) k/uL Basophils # (0-0.2) k/uL PT (10.0-12.5) sec INR (<1.2) APTT (22.0-30.0) sec D-Dimer 0.22 (<0.60) mg/L FEU Sodium (137-145) mmol/L Potassium (3.5-5.1) mmol/L Chloride (98-107) mmol/L Carbon Dioxide (22-30) mmol/L Anion Gap mmol/L BUN (9-20) mg/dL Creatinine (0.66-1.25) mg/dL Est GFR (CKD-EPI)AfAm (>60 ml/min/1.73 sqM) Est GFR (CKD-EPI)NonAf (>60 ml/min/1.73 sqM) Glucose (74-99) mg/dL Plasma Lactic Acid Fabiano 1.0 (0.7-2.0) mmol/L Calcium (8.4-10.2) mg/dL Total Bilirubin (0.2-1.3) mg/dL AST (17-59) U/L ALT (4-49) U/L Alkaline Phosphatase (38-126) U/L Troponin I <0.012 (0.000-0.034) ng/mL Total Protein (6.3-8.2) g/dL Albumin (3.5-5.0) g/dL Disposition <Feng Stoner - Last Filed: 05/05/24 12:17> Decision Time: 14:04 <Teo Juárez - Last Filed: 05/05/24 14:04> Clinical Impression: COPD (chronic obstructive pulmonary disease) Disposition: ADMITTED IP TO THIS HOSP Condition: Fair Referrals: [facility],Clinic [Primary Care Provider] - 1-2 days
[2024-05-05 12:20] LABS: Basophils % (A) 0 %; Eosinophils % (A) 0 %; HCT 43.8 % (39.0-53.0); HGB 13.9 gm/dL (13.0-17.5); Lymphocytes # (A) 1.4 k/uL (1.0-4.8); Lymphocytes % (A) 11 %; MCHC 31.8 g/dL (31.0-37.0); MCV 97.4 fL (80.0-100.0); Mean Platelet Volume 7.5; Monocytes % (A) 8 %; Neutrophils # (A) 10.5 k/uL (1.3-7.7); Neutrophils % (A) 80 %; Platelet Count 207 k/uL (150-450); RBC 4.49 m/uL (4.30-5.90); RDW 13.6 % (11.5-15.5); WBC 13.2 k/uL (3.8-10.6)
[2024-05-05 12:38] LABS: ALT 25 U/L (4-49); AST 26 U/L (17-59); African American GFR (CKD) 54 (>60 ml/min/1.73 sqM); Albumin 4.3 g/dL (3.5-5.0); Alkaline Phosphatase 77 U/L (38-126); Blood Urea Nitrogen 41 mg/dL (9-20); Calcium 9.2 mg/dL (8.4-10.2); Chloride 90 mmol/L (98-107); Glucose 79 mg/dL (74-99); INR 0.9 (<1.2); Non-African American GFR(CKD) 47 (>60 ml/min/1.73 sqM); Potassium 4.2 mmol/L (3.5-5.1); Prothrombin Time 9.9 sec (10.0-12.5); Sodium 136 mmol/L (137-145); Total Bilirubin 0.2 mg/dL (0.2-1.3); Total Protein 6.9 g/dL (6.3-8.2)
[2024-05-05 12:44] LABS: Anion Gap 11 mmol/L
[2024-05-05] MEDS: DEXAMETHASONE SOD PHOSPHATE 10 MG/ML 1 ML VIAL IV STA (12:51)
[2024-05-05 12:53] LABS: Partial Thromboplastin Time 21.5 sec (22.0-30.0)
--- NOTE | 2024-05-05 12:53 | XR ---
EXAMINATION TYPE: XR chest 2V DATE OF EXAM: 05/05/2024 12:49 PM COMPARISON: Chest radiographs from 05/02/2024 CLINICAL INDICATION: Male, 78 years old with history of difficulty breathing; [facility] TECHNIQUE: XR chest 2V Frontal and lateral views of the chest. FINDINGS: Lungs/Pleura: There is flattening of the diaphragm with increased lucency of the lungs. No evidence o f pneumothorax, pleural effusion or focal consolidation. Pulmonary vascularity: Unremarkable. Heart/mediastinum: Cardiomediastinal silhouette is unremarkable. Musculoskeletal: No acute osseous pathology. IMPRESSION: 1. No acute cardiopulmonary disease process. 2. COPD changes. [facility], , 05/05/2024 12:50 PM
[2024-05-05 13:05] LABS: Carbon Dioxide 35 mmol/L (22-30)
[2024-05-05] MEDS ORDERED: NALOXONE 0.4 MG/ML 1 ML VIAL IVP PRN (14:01)
[2024-05-05] MEDS ORDERED: ALBUTEROL NEBULIZED 2.5 MG/3 ML INHALATION PRN (14:24)
[2024-05-05] MEDS: IPRATROPIUM-ALBUTEROL 3 ML NEB INHALATION STA (14:35)
[2024-05-05] MEDS: AZITHROMYCIN 500 MG TAB PO SCH (15:33)
[2024-05-05] MEDS: predniSONE 20 MG TAB PO SCH (15:33)
--- NOTE | 2024-05-05 15:34 | P.HPIM ---
History of Present Illness H&P Date: 05/05/24 Patient is a 78-year-old male with history of COPD, chronic hypoxic respiratory failure on 4 L, nicotine dependence, hypertension, dyslipidemia, chronic systolic heart failure, paroxysmal atrial fibrillation, renal cell carcinoma status post right nephrectomy, CKD stage III, macular degeneration presenting with worsening shortness of breath. Patient has been presenting to the hospital frequently with COPD exacerbation. He was discharged yesterday and presented shortly after with similar complaints. He claims that he was just not able to breathe at home. He denied ever being hypoxic on his home oxygen. He denies any productive cough, chest pain, abdominal pain, nausea, vomiting, urinary or bowel complaints. In the ER, temperature was 97.8, pulse 75, respiratory rate 28, blood pressure 147/72, saturating at 98% on room air. Chest x-ray independently interpreted, shows no acute opacities. WBC 13.2 improved compared to yesterday, hemoglobin 13.9, D-dimer 0.22, sodium 136, bicarb 35, creatinine 1.43 similar to yesterday, troponin negative, lactate 1. Patient on 40 mg oral prednisone, scheduled DuoNebs, oral azithromycin. Pulmonology also consulted. Patient being admitted for COPD exacerbation as observation. Pertinent positives and negatives as discussed in HPI, a complete review of systems was performed and all other systems are negative. Patient seen and examined at bedside. Vital signs reviewed General: nontoxic, no distress, appears at stated age Derm: warm, dry Head: atraumatic, normocephalic, symmetric Eyes: EOMI, no lid lag, anicteric sclera, pupils equal round reactive to light ENT: Nose and ears atraumatic Neck: No thyromegaly, supple Mouth: no lip lesion, mucus membranes moist Cardiovascular: S1S2 reg, no murmur, no edema Lungs: clear to auscultation bilateral, no rhonchi, no rales, no wheeze, no accessory muscle use Abdominal: soft, nontender to palpation, no guarding, no appreciable organomegaly Ext: no gross muscle atrophy, muscle strength muscle strength 5 out of 5 in all 4 extremities, no contractures Neuro: CN II-XII grossly intact Psych: Alert, oriented, appropriate affect Assessment/Plan: Active: Acute COPD exacerbation Acute on chronic hypoxic respiratory failure Leukocytosis, steroid-induced -Continue prednisone 40 mg daily, DuoNebs scheduled 4 times daily, albuterol every 4 hours scheduled, every 6 hours as needed, continue Wixela twice daily, Spiriva daily -Pulmonology consulted, pending recommendation -Okay to continue azithromycin 500 mg daily for the next 3 days Chronic: Paroxysmal atrial fibrillation Systolic heart failure Insomnia Nicotine dependence Depression/anxiety Neuropathy The patient is admitted with an anticipated less than 2 midnight stay as observation status for evaluation of COPD exacerbation. Surrogate decision-maker: Spouse CODE STATUS: Full code DVT prophylaxis: Eliquis Anticipated discharge date: Pending clinical course Anticipated discharge place: Pending clinical course A total of 65 minutes was spent on the care of this complex patient more than 50% of the time was spent in counseling and care coordination. Past Medical History Past Medical History: Atrial Fibrillation, Cancer, COPD, Eye Disorder, Hearing Disorder / Deafness, Hyperlipidemia, Hypertension, Osteoarthritis (OA) Additional Past Medical History / Comment(s): Emphysema (takes inhalers and uses oxygen at home). Hx Kidney Cancer in 2006, R nephrectomy.q Left eye detached retina. Wet Macular Degeneration right eye. Hx Melanoma on back. Bilateral hearing aid use, legally blind. History of Any Multi-Drug Resistant Organisms: None Reported Past Surgical History: Back Surgery Additional Past Surgical History / Comment(s): Right kidney removed. Left eye surgery X3 for detacted retina. Bilateral cataract surgery. Mohs surgery thoracic spine for melanoma.plate in right arm, bilateral eye lids lifted Past Anesthesia/Blood Transfusion Reactions: Previous Problems w/ Anesthesia Additional Past Anesthesia/Blood Transfusion Reaction / Comment(s): States low heart rate, light-headed and low BP X1 with anesthesia. "Got broke vocal cord and could not talk for 2 months after anesthesia one time." Past Psychological History: Anxiety, Depression Smoking Status: Current some day smoker Past Alcohol Use History: Occasional Past Drug Use History: None Reported - Past Family History Mother Family Medical History: Cancer Additional Family Medical History / Comment(s): Brain Cancer. Father Family Medical History: CVA/TIA Medications and Allergies Home Medications Medication Instructions Recorded Confirmed Type Vit C/E/Zn/Coppr/Lutein/Zeaxan 1 cap PO BID 08/03/17 05/05/24 History [Preservision Areds 2 Softgel] Apixaban [Eliquis] 5 mg PO BID 30 Days #60 tab 11/26/20 05/05/24 Rx Amiodarone [Cordarone] 200 mg PO DAILY 12/02/20 05/05/24 History Roflumilast [Daliresp] 500 mcg PO DAILY 01/17/21 05/05/24 History Potassium Chloride ER [K-Dur 20] 20 meq PO DAILY #30 tab 01/26/21 05/05/24 Rx Digoxin [Lanoxin] 125 mcg PO DAILY 11/15/21 05/05/24 History Albuterol Inhaler [Ventolin Hfa 2 puff INHALATION RT-Q6H PRN 04/26/23 05/05/24 History Inhaler] Cholecalciferol [Vitamin D3 (25 25 mcg PO DAILY 04/26/23 05/05/24 History Mcg = 1000 Iu)] Fluticasone Propion/Salmeterol 1 puff INHALATION RT-BID 04/26/23 05/05/24 History [Wixela 500-50 Inhub] Tiotropium 2.5 Mcg/Puff [Spiriva 2 puff INHALATION RT-DAILY 04/26/23 05/05/24 History Respimat 2.5 Mcg] buPROPion [Wellbutrin] 150 mg PO BID 04/26/23 05/05/24 History Albuterol Nebulized [Ventolin 2.5 mg INHALATION RT-Q4H 02/15/24 05/05/24 History Nebulized] Bumetanide [BUMEX] 1 mg PO BID 02/15/24 05/05/24 History Carboxymethylcellulose Sodium 1 drop BOTH EYES Q6H PRN 02/15/24 05/05/24 History [Refresh Tears] Gabapentin [Neurontin] 200 mg PO BID 02/15/24 05/05/24 History Lidocaine 5% Patch [Lidoderm 5% 1 patch TRANSDERM DAILY 02/15/24 05/05/24 History Patch] traZODone HCL [Desyrel] 50 mg PO HS 02/15/24 05/05/24 History Sennosides/Docusate Sodium [Senna 1 tab PO BID 05/02/24 05/05/24 History Plus 8.6-50 mg Tablet] Aspirin 81 mg PO DAILY #90 tab 05/04/24 05/05/24 Rx Melatonin 5 mg PO HS tab 05/04/24 05/05/24 Rx predniSONE [Deltasone] See Taper PO DIRECTED 05/05/24 05/05/24 History Allergies Allergy/AdvReac Type Severity Reaction Status Date / Time atorvastatin [From Lipitor] AdvReac Muscle pain Verified 05/05/24 12:28 Physical Exam Vitals: Vital Signs Temp Pulse Resp BP Pulse Ox 05/05/24 11:24 97.8 F 75 20 147/72 98 Intake and Output 05/04/24 05/05/24 05/05/24 22:59 06:59 14:59 Other: Weight 104.326 kg Results CBC & Chem 7: 05/05/24 11:50 05/05/24 11:50 Labs: Abnormal Lab Results - Last 24 Hours (Table) 05/05/24 05/05/24 05/05/24 Range/Units 11:50 11:50 11:50 WBC 13.2 H (3.8-10.6) k/uL Neutrophils # 10.5 H (1.3-7.7) k/uL PT 9.9 L (10.0-12.5) sec APTT 21.5 L (22.0-30.0) sec Sodium 136 L (137-145) mmol/L Chloride 90 L (98-107) mmol/L Carbon Dioxide 35 H (22-30) mmol/L BUN 41 H (9-20) mg/dL Creatinine 1.43 H (0.66-1.25) mg/dL
[2024-05-05] MEDS ORDERED: IPRATROPIUM-ALBUTEROL 3 ML NEB INHALATION SCH (16:00)
--- NOTE | 2024-05-05 17:35 | P.CNPUL ---
History of Present Illness Consult date: 05/05/24 Requesting physician: Oliver Garcia Reason for consult: dyspnea, COPD Chief complaint: Shortness of breath History of present illness: This is a 78-year-old male patient who has a known history of severe oxygen dependent, steroid-dependent chronic obstructive pulmonary disease with an FEV1 value of 37% of predicted. He has been maintained on Wixela, Spiriva, albuterol, Daliresp and prednisone 5 mg daily. He has a history of paroxysmal atrial fibrillation, anticoagulated with Eliquis, obstructive sleep apnea with home CPAP, obesity, renal cell carcinoma status post right nephrectomy, hypertension, chronic and ongoing tobacco dependence. He was just discharged home from here yesterday for a COPD exacerbation as he had been feeling quite a bit better and nearly back to his baseline. His procalcitonin was negative. He came back to the emergency room today with complaints of increasing shortness of breath with minimal exertion. X-ray continues to show no acute pulmonary process. His D-dimer was negative. Count 13.2. Hemoglobin 13.9. Platelets 207. Sodium 136. Potassium 4.2. Bicarb 35. BUN 41. Creatinine 1.43. Troponin negative x 1. He is seen in consultation in the emergency department. He is currently sitting up in a chair. Awake and alert in no acute distress. He is maintaining O2 saturations in the 90s on liters per minute per nasal cannula. He is afebrile. Hemodynamically stable. Is dyspneic with conversation. Dyspneic with minimal exertion. Review of Systems REVIEW OF SYSTEMS: CONSTITUTIONAL: Denies any recent significant weight loss or weight gain. EYES: Denies change in vision. EARS, NOSE, MOUTH, THROAT: Denies headaches, denies sore throat. CARDIOVASCULAR: Denies chest pain, palpitations or syncopal episodes. RESPIRATORY: Positive for shortness of breath, cough, congestion no hemoptysis. GASTROINTESTINAL: Denies change in appetite, denies abdominal pain GENITOURINARY: Denies hematuria, denies infections. MUSKULOSKELETAL: Denies pain, denies swelling. INTEGUMENTARY: Denies rash, denies eczema. NEUROLOGICAL: Denies recent memory loss, no recent seizure activity. PSYCHIATRIC: Denies anxiety, denies depression. HEMATOLOGIC/LYMPHATIC: Denies anemia, denies enlarged lymph nodes. Past Medical History Past Medical History: Atrial Fibrillation, Cancer, COPD, Eye Disorder, Hearing Disorder / Deafness, Hyperlipidemia, Hypertension, Osteoarthritis (OA) Additional Past Medical History / Comment(s): Emphysema (takes inhalers and uses oxygen at home). Hx Kidney Cancer in 2007, R nephrectomy.q Left eye detached retina. Wet Macular Degeneration right eye. Hx Melanoma on back. Bilateral hearing aid use, legally blind. History of Any Multi-Drug Resistant Organisms: None Reported Past Surgical History: Back Surgery Additional Past Surgical History / Comment(s): Right kidney removed. Left eye surgery X3 for detacted retina. Bilateral cataract surgery. Mohs surgery thoracic spine for melanoma.plate in right arm, bilateral eye lids lifted Past Anesthesia/Blood Transfusion Reactions: Previous Problems w/ Anesthesia Additional Past Anesthesia/Blood Transfusion Reaction / Comment(s): States low heart rate, light-headed and low BP X1 with anesthesia. "Got broke vocal cord and could not talk for 2 months after anesthesia one time." Past Psychological History: Anxiety, Depression Smoking Status: Current some day smoker Past Alcohol Use History: Occasional Past Drug Use History: None Reported - Past Family History Mother Family Medical History: Cancer Additional Family Medical History / Comment(s): Brain Cancer. Father Family Medical History: CVA/TIA Medications and Allergies Home Medications Medication Instructions Recorded Confirmed Type Vit C/E/Zn/Coppr/Lutein/Zeaxan 1 cap PO BID 08/03/17 05/05/24 History [Preservision Areds 2 Softgel] Apixaban [Eliquis] 5 mg PO BID 30 Days #60 tab 11/26/20 05/05/24 Rx Amiodarone [Cordarone] 200 mg PO DAILY 12/02/20 05/05/24 History Roflumilast [Daliresp] 500 mcg PO DAILY 01/17/21 05/05/24 History Potassium Chloride ER [K-Dur 20] 20 meq PO DAILY #30 tab 01/26/21 05/05/24 Rx Digoxin [Lanoxin] 125 mcg PO DAILY 11/15/21 05/05/24 History Albuterol Inhaler [Ventolin Hfa 2 puff INHALATION RT-Q6H PRN 04/26/23 05/05/24 History Inhaler] Cholecalciferol [Vitamin D3 (25 25 mcg PO DAILY 04/26/23 05/05/24 History Mcg = 1000 Iu)] Fluticasone Propion/Salmeterol 1 puff INHALATION RT-BID 04/26/23 05/05/24 History [Wixela 500-50 Inhub] Tiotropium 2.5 Mcg/Puff [Spiriva 2 puff INHALATION RT-DAILY 04/26/23 05/05/24 History Respimat 2.5 Mcg] buPROPion [Wellbutrin] 150 mg PO BID 04/26/23 05/05/24 History Albuterol Nebulized [Ventolin 2.5 mg INHALATION RT-Q4H 02/15/24 05/05/24 History Nebulized] Bumetanide [BUMEX] 1 mg PO BID 02/15/24 05/05/24 History Carboxymethylcellulose Sodium 1 drop BOTH EYES Q6H PRN 02/15/24 05/05/24 History [Refresh Tears] Gabapentin [Neurontin] 200 mg PO BID 02/15/24 05/05/24 History Lidocaine 5% Patch [Lidoderm 5% 1 patch TRANSDERM DAILY 02/15/24 05/05/24 History Patch] traZODone HCL [Desyrel] 50 mg PO HS 02/15/24 05/05/24 History Sennosides/Docusate Sodium [Senna 1 tab PO BID 05/02/24 05/05/24 History Plus 8.6-50 mg Tablet] Aspirin 81 mg PO DAILY #90 tab 05/04/24 05/05/24 Rx Melatonin 5 mg PO HS tab 05/04/24 05/05/24 Rx predniSONE [Deltasone] See Taper PO DIRECTED 05/05/24 05/05/24 History Allergies Allergy/AdvReac Type Severity Reaction Status Date / Time atorvastatin [From Lipitor] AdvReac Muscle pain Verified 05/05/24 12:28 Physical Exam Vitals: Vital Signs Temp Pulse Resp BP Pulse Ox 05/05/24 15:34 71 20 119/64 94 L 05/05/24 14:53 74 05/05/24 14:34 70 05/05/24 11:24 97.8 F 75 20 147/72 98 Intake and Output 05/05/24 05/05/24 05/05/24 06:59 14:59 22:59 Other: Weight 104.326 kg GENERAL EXAM: Alert, obese 78-year-old male, on 4 L nasal cannula, fairly comfortable in no apparent distress. HEAD: Normocephalic. EYES: Normal reaction of pupils, equal size. NOSE: Clear with pink turbinates. THROAT: No erythema or exudates. NECK: No masses, no JVD. CHEST: No chest wall deformity. LUNGS: Equal air entry with no crackles, wheeze, rhonchi or dullness. Diminished. CVS: S1 and S2 normal with no audible murmur, regular rhythm. ABDOMEN: No hepatosplenomegaly, normal bowel sounds, no guarding or rigidity. SPINE: No scoliosis or deformity SKIN: No rashes CENTRAL NERVOUS SYSTEM: No focal deficits, tone is normal in all 4 extremities. EXTREMITIES: There is no peripheral edema. No clubbing, no cyanosis. Periphera l pulses are intact. Results - Laboratory Findings CBC and BMP: 05/05/24 11:50 05/05/24 11:50 PT/INR, D-dimer PT 9.9 sec (10.0-12.5) L 05/05/24 11:50 INR 0.9 (<1.2) 05/05/24 11:50 D-Dimer 0.22 mg/L FEU (<0.60) 05/05/24 11:50 Abnormal lab findings: Abnormal Labs 05/05/24 05/05/24 05/05/24 11:50 11:50 11:50 WBC 13.2 H Neutrophils # 10.5 H PT 9.9 L APTT 21.5 L Sodium 136 L Chloride 90 L Carbon Dioxide 35 H BUN 41 H Creatinine 1.43 H - Diagnostic Findings Chest x-ray: image reviewed Assessment and Plan Assessment: Acute hypoxic respiratory failure secondary to an acute exacerbation of chronic obstructive pulmonary disease. Chest x-ray with no acute pulmonary process. D- dimer negative Acute COVID infection 05/02/2024 Severe oxygen dependent, steroid-dependent chronic obstructive pulmonary disease with an FEV1 value of 37% of predicted Chronic tobacco dependence Right nephrectomy Paroxysmal atrial fibrillation, anticoagulated with Eliquis Obstructive sleep apnea utilizing CPAP Obesity Hypertension Macular degeneration History of melanoma status post resection Mildly impaired left ventricular systolic function with ejection fraction 45% Plan: The patient was seen and evaluated Chest x-ray, labs and medications reviewed No acute pulmonary process Initiated on Symbicort and albuterol Initiated on IV Solu-Medrol Patient's home Daliresp Anticoagulated with Eliquis Continued on diuretics Empiric antibiotics Check a procalcitonin Titrate the FiO2 as tolerated We will continue to follow and make further recommendations based on his clinical status I have personally seen and examined the patient, performed the documentation and the assessment and plan as written. Number of minutes spent on the visit: 20 Dictation was produced using [employer] dictation software. Please excuse any grammatical, word or spelling errors.
[2024-05-05] MEDS: ALBUTEROL NEBULIZED 2.5 MG/3 ML INHALATION SCH (18:05)
[2024-05-05] MEDS: IPRATROPIUM 0.5 MG/2.5 ML NEBU INHALATION SCH (18:06)
[2024-05-05] MEDS: methylPREDNISolone SOD SUCCI 125 MG/2 ML VIAL IV SCH (18:24)
[2024-05-05] MEDS: SYMBICORT 160-4.5 MCG INHALER INHALATION SCH (20:19)
[2024-05-05] MEDS ORDERED: ALBUTEROL HFA INHALER INHALATION PRN (20:21)
[2024-05-05] MEDS: buPROPion 75 MG TAB PO SCH (20:51)
[2024-05-05] MEDS: SENNOSIDES-DOCUSATE SODIUM 1 EACH TAB PO SCH (20:51)
[2024-05-05] MEDS: GABAPENTIN 100 MG CAP PO SCH (20:51)
[2024-05-05] MEDS: traZODone HCL 50 MG TAB PO SCH (20:51)
[2024-05-05] MEDS: APIXABAN 5 MG TAB PO SCH (20:51)
[2024-05-05] MEDS: BUMETANIDE 1 MG TAB PO SCH (20:51)
[2024-05-05] MEDS: MELATONIN 5 MG TABLET PO SCH (20:51)
[2024-05-06] MEDS: ALBUTEROL HFA INHALER INHALATION SCH (00:50)
[2024-05-06 06:49] LABS: Basophils % (A) 0 %; Eosinophils % (A) 0 %; HCT 43.6 % (39.0-53.0); HGB 13.6 gm/dL (13.0-17.5); Hypochromasia Moderate; Lymphocytes # (A) 0.6 k/uL (1.0-4.8); Lymphocytes % (A) 5 %; MCH 31.4 pg (25.0-35.0); MCHC 31.1 g/dL (31.0-37.0); MCV 100.7 fL (80.0-100.0); Mean Platelet Volume 7.1; Monocytes # (A) 0.3 k/uL (0-1.0); Monocytes % (A) 3 %; Neutrophils # (A) 10.6 k/uL (1.3-7.7); Neutrophils % (A) 92 %; Platelet Count 182 k/uL (150-450); RBC 4.33 m/uL (4.30-5.90); RDW 13.1 % (11.5-15.5); WBC 11.6 k/uL (3.8-10.6)
[2024-05-06] MEDS: ASPIRIN 81 MG PO SCH (08:41)
[2024-05-06] MEDS: AMIODARONE 200 MG TAB PO SCH (08:41)
[2024-05-06] MEDS: DIGOXIN 125 MCG TAB PO SCH (08:41)
[2024-05-06] MEDS: TIOTROPIUM 2.5 MCG INHALER INHALATION SCH (09:01)
[2024-05-06] MEDS: ROFLUMILAST 500 MCG PO SCH (11:47)
--- NOTE | 2024-05-06 12:20 | P.PN ---
Subjective Progress Note Date: 05/06/24 This is a 78-year-old male patient who has a known history of severe oxygen dependent, steroid-dependent chronic obstructive pulmonary disease with an FEV1 value of 37% of predicted. He has been maintained on Wixela, Spiriva, albuterol, Daliresp and prednisone 5 mg daily. He has a history of paroxysmal atrial fibrillation, anticoagulated with Eliquis, obstructive sleep apnea with home CPAP, obesity, renal cell carcinoma status post right nephrectomy, hypertension, chronic and ongoing tobacco dependence. He was just discharged home from here yesterday for a COPD exacerbation as he had been feeling quite a bit better and nearly back to his baseline. His procalcitonin was negative. He came back to the emergency room today with complaints of increasing shortness of breath with minimal exertion. X-ray continues to show no acute pulmonary process. His D-dimer was negative. Count 13.2. Hemoglobin 13.9. Platelets 207. Sodium 136. Potassium 4.2. Bicarb 35. BUN 41. Creatinine 1.43. Tropo amber negative x 1. He is seen in consultation in the emergency department. He is currently sitting up in a chair. Awake and alert in no acute distress. He is maintaining O2 saturations in the 90s on liters per minute per nasal cannula. He is afebrile. Hemodynamically stable. Is dyspneic with conversation. Dyspneic with minimal exertion. The patient is seen today May 06, 2024 in follow-up on the regular medical floor. He is currently sitting up in a chair at the bedside. Awake and alert in no acute distress. He is maintaining O2 saturations in the 90s on 4 L/min per nasal cannula. He is not feeling much better today compared to yesterday. Still dyspneic with minimal exertion, dyspneic with conversation. He remains bronchospastic and wheezing. He is continued on Symbicort, Spiriva, albuterol. Empiric antibiotics in the form of azithromycin. Anticoagulated with Eliquis. White count 11.6. Hemoglobin 13.6. Platelets 182. Objective - Vital Signs Vital signs: Vital Signs Temp 97.8 F 05/06/24 07:00 Pulse 65 05/06/24 07:00 Resp 19 05/06/24 07:00 BP 156/65 05/06/24 07:00 Pulse Ox 95 05/06/24 07:00 FiO2 Intake & Output 12/28/24 12/29/24 12/29/24 18:59 06:59 18:59 Intake Total 180 Output Total 700 Balance -520 Weight 104.326 kg Intake: Oral 180 Output: Urine 700 Other: Voiding Method Urinal # Voids 1 - Exam GENERAL EXAM: Alert, 78-year-old male, on 4 L nasal cannula, comfortable in no apparent distress. HEAD: Normocephalic. EYES: Normal reaction of pupils, equal size. NOSE: Clear with pink turbinates. THROAT: No erythema or exudates. NECK: No masses, no JVD. CHEST: No chest wall deformity. LUNGS: Equal air entry with bilateral end expiratory wheeze. CVS: S1 and S2 normal with no audible murmur, regular rhythm. ABDOMEN: No hepatosplenomegaly, normal bowel sounds, no guarding or rigidity. SPINE: No scoliosis or deformity SKIN: No rashes CENTRAL NERVOUS SYSTEM: No focal deficits, tone is normal in all 4 extremities. EXTREMITIES: There is 1+ peripheral edema. No clubbing, no cyanosis. Peripheral pulses are intact. - Labs CBC & Chem 7: 05/06/24 05:51 05/05/24 11:50 Labs: Abnormal Lab Results - Last 24 Hours (Table) 05/05/24 05/05/24 05/05/24 Range/Units 11:50 11:50 11:50 WBC 13.2 H (3.8-10.6) k/uL MCV (80.0-100.0) fL Neutrophils # 10.5 H (1.3-7.7) k/uL Lymphocytes # (1.0-4.8) k/uL PT 9.9 L (10.0-12.5) sec APTT 21.5 L (22.0-30.0) sec Sodium 136 L (137-145) mmol/L Chloride 90 L (98-107) mmol/L Carbon Dioxide 35 H (22-30) mmol/L BUN 41 H (9-20) mg/dL Creatinine 1.43 H (0.66-1.25) mg/dL 05/06/24 Range/Units 05:51 WBC 11.6 H (3.8-10.6) k/uL MCV 100.7 H (80.0-100.0) fL Neutrophils # 10.6 H (1.3-7.7) k/uL Lymphocytes # 0.6 L (1.0-4.8) k/uL PT (10.0-12.5) sec APTT (22.0-30.0) sec Sodium (137-145) mmol/L Chloride (98-107) mmol/L Carbon Dioxide (22-30) mmol/L BUN (9-20) mg/dL Creatinine (0.66-1.25) mg/dL Assessment and Plan Assessment: Acute hypoxic respiratory failure secondary to an acute exacerbation of chronic obstructive pulmonary disease. Chest x-ray with no acute pulmonary process. D- dimer negative Acute COVID infection 05/02/2024 Severe oxygen dependent, steroid-dependent chronic obstructive pulmonary disease with an FEV1 value of 37% of predicted Chronic tobacco dependence Right nephrectomy Paroxysmal atrial fibrillation, anticoagulated with Eliquis Obstructive sleep apnea utilizing CPAP Obesity Hypertension Macular degeneration History of melanoma status post resection Mildly impaired left ventricular systolic function with ejection fraction 45% Plan: The patient was seen and evaluated Labs and medications reviewed Continue Symbicort, Spiriva, albuterol Continue IV Solu-Medrol Anticoagulated with Eliquis Empiric antibiotics Titrate the FiO2 as tolerated We will continue to follow I have personally seen and examined the patient, performed the documentation and the assessment and plan as written. Number of minutes spent on the visit: 10 Dictation was produced using [employer] dictation software. Please excuse any grammatical, word or spelling errors.
--- NOTE | 2024-05-06 13:25 | P.PN ---
Subjective Progress Note Date: 05/06/24 Hospital Course: 78-year-old male with history of COPD, chronic hypoxic respiratory failure on 4 L, nicotine dependence, hypertension, dyslipidemia, chronic systolic heart failure, paroxysmal atrial fibrillation, renal cell carcinoma status post right nephrectomy, CKD stage III, macular degeneration presenting with worsening shortness of breath. In the ER, temperature was 97.8, pulse 75, respiratory rate 28, blood pressure 147/72, saturating at 98% on room air. Chest x-ray independently interpreted, shows no acute opacities. WBC 13.2 improved compared to yesterday, hemoglobin 13.9, D-dimer 0.22, sodium 136, bicarb 35, creatinine 1.43 similar to yesterday, troponin negative, lactate 1. Patient on 40 mg oral prednisone, scheduled DuoNebs, oral azithromycin. Pulmonology also consulted. Patient being admitted for COPD exacerbation as observation. Subjective: Patient seen and examined at bedside. No acute events overnight. Claims that shortness of breath is still about the same. Pertinent positives and negatives as discussed above, a complete review of systems was performed and all other systems are negative. Vitals Signs Reviewed. General: nontoxic, no distress, appears at stated age Derm: warm, dry Head: atraumatic, normocephalic, symmetric Eyes: EOMI, no lid lag, anicteric sclera, pupils equal round reactive to light ENT: Nose and ears atraumatic Neck: No thyromegaly, supple Mouth: no lip lesion, mucus membranes moist Cardiovascular: S1S2 reg, no murmur, no edema Lungs: clear to auscultation bilateral, no rhonchi, no rales, no wheeze, no accessory muscle use Abdominal: soft, nontender to palpation, no guarding, no appreciable organomegaly Ext: no gross muscle atrophy, muscle strength muscle strength 5 out of 5 in all 4 extremities, no contractures Neuro: CN II-XII grossly intact Psych: Alert, oriented, appropriate affect Data Reviewed Today: Pertinent Labs: WBC 11.6 Imaging: No new imaging Assessment and Plan: Active: Acute COPD exacerbation Acute on chronic hypoxic respiratory failure Leukocytosis, steroid-induced -DuoNebs scheduled 4 times daily, albuterol every 4 hours scheduled, every 6 hours as needed, continue Wixela twice daily, Spiriva daily -Pulmonology note reviewed, changed oral steroids to IV Solu-Medrol 60 every 6 hours -Continue azithromycin 500 mg daily for the next 3 days Chronic: Paroxysmal atrial fibrillation Systolic heart failure Insomnia Nicotine dependence Depression/anxiety Neuropathy DVT ppx: Eliquis Code status: Full code Anticipated discharge place: Pending clinical course Anticipated discharge time: Pending clinical course Objective - Vital Signs Vital signs: Vital Signs Temp 97.8 F 05/06/24 07:00 Pulse 65 05/06/24 07:00 Resp 19 05/06/24 07:00 BP 156/65 05/06/24 07:00 Pulse Ox 95 05/06/24 07:00 FiO2 Intake & Output 05/05/24 05/06/24 05/06/24 18:59 06:59 18:59 Intake Total 180 Output Total 700 Balance -520 Weight 104.326 kg Intake: Oral 180 Output: Urine 700 Other: Voiding Method Urinal # Voids 1 - Labs CBC & Chem 7: 05/06/24 05:51 05/05/24 11:50 Labs: Abnormal Lab Results - Last 24 Hours (Table) 05/06/24 Range/Units 05:51 WBC 11.6 H (3.8-10.6) k/uL MCV 100.7 H (80.0-100.0) fL Neutrophils # 10.6 H (1.3-7.7) k/uL Lymphocytes # 0.6 L (1.0-4.8) k/uL
--- NOTE | 2024-05-07 12:22 | P.PN ---
Subjective Progress Note Date: 05/07/24 Hospital Course: 78-year-old male with history of COPD, chronic hypoxic respiratory failure on 4 L, nicotine dependence, hypertension, dyslipidemia, chronic systolic heart failure, paroxysmal atrial fibrillation, renal cell carcinoma status post right nephrectomy, CKD stage III, macular degeneration presenting with worsening shortness of breath. In the ER, temperature was 97.8, pulse 75, respiratory rate 28, blood pressure 147/72, saturating at 98% on room air. Chest x-ray independently interpreted, shows no acute opacities. WBC 13.2 improved compared to yesterday, hemoglobin 13.9, D-dimer 0.22, sodium 136, bicarb 35, creatinine 1.43 similar to yesterday, troponin negative, lactate 1. Patient on 40 mg oral prednisone, scheduled DuoNebs, oral azithromycin. Pulmonology also consulted. Patient being admitted for COPD exacerbation as observation. Patient continued to have hypoxic respiratory failure, status changed to inpatient. Subjective: Patient seen and examined at bedside. No acute events overnight. Claims that shortness of breath is still about the same. Pertinent positives and negatives as discussed above, a complete review of systems was performed and all other systems are negative. Vitals Signs Reviewed. General: nontoxic, no distress, appears at stated age Derm: warm, dry Head: atraumatic, normocephalic, symmetric Eyes: EOMI, no lid lag, anicteric sclera, pupils equal round reactive to light ENT: Nose and ears atraumatic Neck: No thyromegaly, supple Mouth: no lip lesion, mucus membranes moist Cardiovascular: S1S2 reg, no murmur, no edema Lungs: clear to auscultation bilateral, no rhonchi, no rales, no wheeze, no accessory muscle use Abdominal: soft, nontender to palpation, no guarding, no appreciable organomegaly Ext: no gross muscle atrophy, muscle strength muscle strength 5 out of 5 in all 4 extremities, no contractures Neuro: CN II-XII grossly intact Psych: Alert, oriented, appropriate affect Data Reviewed Today: Pertinent Labs: No new labs Imaging: No new imaging Assessment and Plan: Active: Acute COPD exacerbation Acute on chronic hypoxic respiratory failure Leukocytosis, steroid-induced -DuoNebs scheduled 4 times daily, albuterol every 4 hours scheduled, every 6 hours as needed, continue Wixela twice daily, Spiriva daily -Pulmonology following, oral steroids to IV Solu-Medrol 60 every 6 hours -Continue azithromycin 500 mg daily for 3 days Chronic: Paroxysmal atrial fibrillation Systolic heart failure Insomnia Nicotine dependence Depression/anxiety Neuropathy DVT ppx: Eliquis Code status: Full code Anticipated discharge place: Pending clinical course Anticipated discharge time: Pending clinical course Patient failed observation, status changed to inpatient Objective - Vital Signs Vital signs: Vital Signs Temp 96.1 F L 05/07/24 07:00 Pulse 70 05/07/24 07:00 Resp 17 05/07/24 07:00 BP 162/68 05/07/24 07:00 Pulse Ox 96 05/07/24 07:00 FiO2 Intake & Output 05/06/24 05/07/24 05/07/24 18:59 06:59 18:59 Output Total 900 Balance -900 Output: Urine 900 Other: Voiding Method Urinal # Voids 3 1 - Labs CBC & Chem 7: 05/06/24 05:51 05/05/24 11:50
--- NOTE | 2024-05-07 14:12 | P.PN ---
Subjective Progress Note Date: 05/07/24 This is a 78-year-old male patient who has a known history of severe oxygen dependent, steroid-dependent chronic obstructive pulmonary disease with an FEV1 value of 37% of predicted. He has been maintained on Wixela, Spiriva, albuterol, Daliresp and prednisone 5 mg daily. He has a history of paroxysmal atrial fibrillation, anticoagulated with Eliquis, obstructive sleep apnea with home CPAP, obesity, renal cell carcinoma status post right nephrectomy, hypertension, chronic and ongoing tobacco dependence. He was just discharged home from here yesterday for a COPD exacerbation as he had been feeling quite a bit better and nearly back to his baseline. His procalcitonin was negative. He came back to the emergency room today with complaints of increasing shortness of breath with minimal exertion. X-ray continues to show no acute pulmonary process. His D-dimer was negative. Count 13.2. Hemoglobin 13.9. Platelets 207. Sodium 136. Potassium 4.2. Bicarb 35. BUN 41. Creatinine 1.43. Tropo amber negative x 1. He is seen in consultation in the emergency department. He is currently sitting up in a chair. Awake and alert in no acute distress. He is maintaining O2 saturations in the 90s on liters per minute per nasal cannula. He is afebrile. Hemodynamically stable. Is dyspneic with conversation. Dyspneic with minimal exertion. The patient is seen today May 06, 2024 in follow-up on the regular medical floor. He is currently sitting up in a chair at the bedside. Awake and alert in no acute distress. He is maintaining O2 saturations in the 90s on 4 L/min per nasal cannula. He is not feeling much better today compared to yesterday. Still dyspneic with minimal exertion, dyspneic with conversation. He remains bronchospastic and wheezing. He is continued on Symbicort, Spiriva, albuterol. Empiric antibiotics in the form of azithromycin. Anticoagulated with Eliquis. White count 11.6. Hemoglobin 13.6. Platelets 182. The patient is seen today May 07, 2024 in follow-up on the regular medical floor. He is awake and alert in no acute distress. Up in a chair at the bedside. Maintaining O2 saturations in the 90s on 4 L/min per nasal cannula with O2 saturations at 97%. He is comfortable at rest. He does have ongoing issues with dyspnea on exertion. Still has some expiratory rhonchi bilaterally. No new labs today. He is continued on Symbicort, Spiriva, Solu-Medrol and albuterol. Anticoagulated with Eliquis. Empiric antibiotics in the form of a zithromycin. Objective - Vital Signs Vital signs: Vital Signs Temp 96.1 F L 05/07/24 07:00 Pulse 70 05/07/24 07:00 Resp 17 05/07/24 07:00 BP 162/68 05/07/24 07:00 Pulse Ox 96 05/07/24 07:00 FiO2 Intake & Output 05/06/24 05/07/24 05/07/24 18:59 06:59 18:59 Output Total 900 Balance -900 Output: Urine 900 Other: Voiding Method Urinal Urinal # Voids 3 1 - Exam GENERAL EXAM: Alert, pleasant 78-year-old male, up in a chair, on 4 L nasal cannula, comfortable in no apparent distress. HEAD: Normocephalic. EYES: Normal reaction of pupils, equal size. NOSE: Clear with pink turbinates. THROAT: No erythema or exudates. NECK: No masses, no JVD. CHEST: No chest wall deformity. LUNGS: Equal air entry with bilateral end expiratory wheeze, rhonchi. CVS: S1 and S2 normal with no audible murmur, regular rhythm. ABDOMEN: No hepatosplenomegaly, normal bowel sounds, no guarding or rigidity. SPINE: No scoliosis or deformity SKIN: No rashes CENTRAL NERVOUS SYSTEM: No focal deficits, tone is normal in all 4 extremities. EXTREMITIES: There is 1+ peripheral edema. No clubbing, no cyanosis. Peripheral pulses are intact. - Labs CBC & Chem 7: 05/06/24 05:51 05/05/24 11:50 Assessment and Plan Assessment: Acute hypoxic respiratory failure secondary to an acute exacerbation of chronic obstructive pulmonary disease. Chest x-ray with no acute pulmonary process. D- dimer negative Acute COVID infection 05/02/2024 Severe oxygen dependent, steroid-dependent chronic obstructive pulmonary disease with an FEV1 value of 37% of predicted Chronic tobacco dependence Right nephrectomy Paroxysmal atrial fibrillation, anticoagulated with Eliquis Obstructive sleep apnea utilizing CPAP Obesity Hypertension Macular degeneration History of melanoma status post resection Mildly impaired left ventricular systolic function with ejection fraction 45% Plan: The patient was seen and evaluated Medications reviewed Continue Symbicort, Spiriva, albuterol Continue IV Solu-Medrol Anticoagulated with Eliquis Titrate the FiO2 as tolerated Increase his activity as tolerated This patient was seen independently by the pulmonary nurse practitioner addressing pulmonary issues I have personally seen and examined the patient, performed the documentation and the assessment and plan as written. Number of minutes spent on the visit: 25 Dictation was produced using [employer] dictation software. Please excuse any grammatical, word or spelling errors.
--- NOTE | 2024-05-08 13:15 | P.PN ---
Subjective Progress Note Date: 05/08/24 Hospital Course: 78-year-old male with history of COPD, chronic hypoxic respiratory failure on 4 L, nicotine dependence, hypertension, dyslipidemia, chronic systolic heart failure, paroxysmal atrial fibrillation, renal cell carcinoma status post right nephrectomy, CKD stage III, macular degeneration presenting with worsening shortness of breath. In the ER, temperature was 97.8, pulse 75, respiratory rate 28, blood pressure 147/72, saturating at 98% on room air. Chest x-ray independently interpreted, shows no acute opacities. WBC 13.2 improved compared to yesterday, hemoglobin 13.9, D-dimer 0.22, sodium 136, bicarb 35, creatinine 1.43 similar to yesterday, troponin negative, lactate 1. Patient on 40 mg oral prednisone, scheduled DuoNebs, oral azithromycin. Pulmonology also consulted. Patient being admitted for COPD exacerbation as observation. Patient continued to have hypoxic respiratory failure, status changed to inpatient. Subjective: Patient seen and examined at bedside. No acute events overnight. Claims that shortness of breath has slightly improved but he does not feel he is functional enough to be able to go home. He is still getting short of breath getting up and going to the bathroom. Pertinent positives and negatives as discussed above, a complete review of systems was performed and all other systems are negative. Vitals Signs Reviewed. General: nontoxic, no distress, appears at stated age, chronically ill-appearing Derm: warm, dry Head: atraumatic, normocephalic, symmetric Eyes: EOMI, no lid lag, anicteric sclera, pupils equal round reactive to light ENT: Nose and ears atraumatic Neck: No thyromegaly, supple Mouth: no lip lesion, mucus membranes moist Cardiovascular: S1S2 reg, no murmur, no edema Lungs: clear to auscultation bilateral, no rhonchi, no rales, no wheeze, no accessory muscle use, supplemental oxygen Abdominal: soft, nontender to palpation, no guarding, no appreciable organomegaly Ext: no gross muscle atrophy, muscle strength muscle strength 5 out of 5 in all 4 extremities, no contractures Neuro: CN II-XII grossly intact Psych: Alert, oriented, appropriate affect Data Reviewed Today: Pertinent Labs: No new labs Imaging: No new imaging Assessment and Plan: Active: Acute COPD exacerbation Acute on chronic hypoxic respiratory failure Leukocytosis, steroid-induced -DuoNebs scheduled 4 times daily, albuterol every 4 hours scheduled, every 6 hours as needed, continue Wixela twice daily, Spiriva daily -Pulmonology following, oral steroids to IV Solu-Medrol 60 every 6 hours -Status post azithromycin Chronic: Paroxysmal atrial fibrillation Systolic heart failure Insomnia Nicotine dependence Depression/anxiety Neuropathy DVT ppx: Eliquis Code status: Full code Anticipated discharge place: Home Anticipated discharge time: Hopefully tomorrow Objective - Vital Signs Vital signs: Vital Signs Temp 97.8 F 05/08/24 07:50 Pulse 71 05/08/24 07:50 Resp 17 05/08/24 07:50 BP 158/73 05/08/24 07:50 Pulse Ox 97 05/08/24 08:25 FiO2 Intake & Output 05/07/24 05/08/24 05/08/24 18:59 06:59 18:59 Intake Total 118 240 Output Total 1100 Balance 118 -1100 240 Intake: Oral 118 240 Output: Urine 1100 Other: Voiding Method Urinal Toilet Toilet Urinal Urinal # Voids 2 1 - Labs CBC & Chem 7: 05/06/24 05:51 05/05/24 11:50
--- NOTE | 2024-05-08 13:57 | P.PN ---
Subjective Progress Note Date: 05/08/24 This is a 78-year-old male patient who has a known history of severe oxygen dependent, steroid-dependent chronic obstructive pulmonary disease with an FEV1 value of 37% of predicted. He has been maintained on Wixela, Spiriva, albuterol, Daliresp and prednisone 5 mg daily. He has a history of paroxysmal atrial fibrillation, anticoagulated with Eliquis, obstructive sleep apnea with home CPAP, obesity, renal cell carcinoma status post right nephrectomy, hypertension, chronic and ongoing tobacco dependence. He was just discharged home from here yesterday for a COPD exacerbation as he had been feeling quite a bit better and nearly back to his baseline. His procalcitonin was negative. He came back to the emergency room today with complaints of increasing shortness of breath with minimal exertion. X-ray continues to show no acute pulmonary process. His D-dimer was negative. Count 13.2. Hemoglobin 13.9. Platelets 207. Sodium 136. Potassium 4.2. Bicarb 35. BUN 41. Creatinine 1.43. Tropo amber negative x 1. He is seen in consultation in the emergency department. He is currently sitting up in a chair. Awake and alert in no acute distress. He is maintaining O2 saturations in the 90s on liters per minute per nasal cannula. He is afebrile. Hemodynamically stable. Is dyspneic with conversation. Dyspneic with minimal exertion. The patient is seen today May 06, 2024 in follow-up on the regular medical floor. He is currently sitting up in a chair at the bedside. Awake and alert in no acute distress. He is maintaining O2 saturations in the 90s on 4 L/min per nasal cannula. He is not feeling much better today compared to yesterday. Still dyspneic with minimal exertion, dyspneic with conversation. He remains bronchospastic and wheezing. He is continued on Symbicort, Spiriva, albuterol. Empiric antibiotics in the form of azithromycin. Anticoagulated with Eliquis. White count 11.6. Hemoglobin 13.6. Platelets 182. The patient is seen today May 07, 2024 in follow-up on the regular medical floor. He is awake and alert in no acute distress. Up in a chair at the bedside. Maintaining O2 saturations in the 90s on 4 L/min per nasal cannula with O2 saturations at 97%. He is comfortable at rest. He does have ongoing issues with dyspnea on exertion. Still has some expiratory rhonchi bilaterally. No new labs today. He is continued on Symbicort, Spiriva, Solu-Medrol and albuterol. Anticoagulated with Eliquis. Empiric antibiotics in the form of a zithromycin. The patient is seen today May 08, 2024 in follow-up on the regular medical floor. He is sitting up in a chair at the bedside. Awake and alert in no acute distress. Doing better today compared to yesterday. Not quite back to his baseline. Dyspneic with minimal exertion. He is on oxygen at 4 L/min per nasal cannula. He is afebrile. Hemodynamically stable. He remains on Symbicort, Spiriva albuterol, Solu-Medrol. He is taking his home Daliresp. He is anticoagulated with Eliquis. Remains on azithromycin. Remains on oral diuretics. His procalcitonin was negative at 0.07. Objective - Vital Signs Vital signs: Vital Signs Temp 97.8 F 05/08/24 07:50 Pulse 71 05/08/24 07:50 Resp 17 05/08/24 07:50 BP 158/73 05/08/24 07:50 Pulse Ox 97 05/08/24 08:25 FiO2 Intake & Output 05/07/24 05/08/24 05/08/24 18:59 06:59 18:59 Intake Total 118 240 Output Total 1100 Balance 118 -1100 240 Intake: Oral 118 240 Output: Urine 1100 Other: Voiding Method Urinal Toilet Toilet Urinal Urinal # Voids 2 1 - Exam GENERAL EXAM: Alert, 78-year-old male, up in a chair, on 4 L nasal cannula, in no apparent distress. HEAD: Normocephalic. EYES: Normal reaction of pupils, equal size. NOSE: Clear with pink turbinates. THROAT: No erythema or exudates. NECK: No masses, no JVD. CHEST: No chest wall deformity. LUNGS: Equal air entry with bilateral end expiratory wheeze, rhonchi. CVS: S1 and S2 normal with no audible murmur, regular rhythm. ABDOMEN: No hepatosplenomegaly, normal bowel sounds, no guarding or rigidity. SPINE: No scoliosis or deformity SKIN: No rashes CENTRAL NERVOUS SYSTEM: No focal deficits, tone is normal in all 4 extremities. EXTREMITIES: There is 1+ peripheral edema. No clubbing, no cyanosis. Peripheral pulses are intact. - Labs CBC & Chem 7: 05/06/24 05:51 05/05/24 11:50 Assessment and Plan Assessment: Acute hypoxic respiratory failure secondary to an acute exacerbation of chronic obstructive pulmonary disease. Chest x-ray with no acute pulmonary process. D- dimer negative. Procalcitonin negative. Acute COVID infection 05/02/2024 Severe oxygen dependent, steroid-dependent chronic obstructive pulmonary disease with an FEV1 value of 37% of predicted Chronic tobacco dependence Right nephrectomy Paroxysmal atrial fibrillation, anticoagulated with Eliquis Obstructive sleep apnea utilizing CPAP Obesity Hypertension Macular degeneration History of melanoma status post resection Mildly impaired left ventricular systolic function with ejection fraction 45% Plan: The patient was seen and evaluated Medications reviewed Procalcitonin negative Antibiotics discontinued Continue bronchodilators, steroids Anticoagulated with Eliquis Titrate the FiO2 as tolerated Increase his activity as tolerated This patient was seen independently by the pulmonary nurse practitioner kingsley mendoza pulmonary issues I have personally seen and examined the patient, performed the documentation and the assessment and plan as written. Number of minutes spent on the visit: 24 Dictation was produced using [employer] dictation software. Please excuse any grammatical, word or spelling errors.
[2024-05-09] MEDS: predniSONE 20 MG TAB PO SCH (09:32)
--- NOTE | 2024-05-09 12:27 | P.PN ---
Subjective Progress Note Date: 05/09/24 Hospital Course: 78-year-old male with history of COPD, chronic hypoxic respiratory failure on 4 L, nicotine dependence, hypertension, dyslipidemia, chronic systolic heart failure, paroxysmal atrial fibrillation, renal cell carcinoma status post right nephrectomy, CKD stage III, macular degeneration presenting with worsening shortness of breath. In the ER, temperature was 97.8, pulse 75, respiratory rate 28, blood pressure 147/72, saturating at 98% on room air. Chest x-ray independently interpreted, shows no acute opacities. WBC 13.2 improved compared to yesterday, hemoglobin 13.9, D-dimer 0.22, sodium 136, bicarb 35, creatinine 1.43 similar to yesterday, troponin negative, lactate 1. Patient on 40 mg oral prednisone, scheduled DuoNebs, oral azithromycin. Pulmonology also consulted. Patient being admitted for COPD exacerbation as observation. Patient continued to have hypoxic respiratory failure, status changed to inpatient. Patient now off of IV steroids. Subjective: Patient seen and examined at bedside. No acute events overnight. Claims that shortness of breath has slightly improved but he does not feel he is functional enough to be able to go home. He is still getting short of breath getting up and going to the bathroom. Pertinent positives and negatives as discussed above, a complete review of systems was performed and all other systems are negative. Vitals Signs Reviewed. General: nontoxic, no distress, appears at stated age, chronically ill-appearing Derm: warm, dry Head: atraumatic, normocephalic, symmetric Eyes: EOMI, no lid lag, anicteric sclera, pupils equal round reactive to light ENT: Nose and ears atraumatic Neck: No thyromegaly, supple Mouth: no lip lesion, mucus membranes moist Cardiovascular: S1S2 reg, no murmur, no edema Lungs: clear to auscultation bilateral, no rhonchi, no rales, no wheeze, no accessory muscle use, supplemental oxygen Abdominal: soft, nontender to palpation, no guarding, no appreciable organomegaly Ext: no gross muscle atrophy, muscle strength muscle strength 5 out of 5 in all 4 extremities, no contractures Neuro: CN II-XII grossly intact Psych: Alert, oriented, appropriate affect Data Reviewed Today: Pertinent Labs: No new labs Imaging: No new imaging Assessment and Plan: Active: Acute COPD exacerbation Acute on chronic hypoxic respiratory failure Leukocytosis, steroid-induced -DuoNebs scheduled 4 times daily, albuterol every 4 hours scheduled, every 6 hours as needed, continue Wixela twice daily, Spiriva daily -Discussed management with pulmonology, started on prednisone oral 40 mg daily, patient to be discharged tomorrow -Status post azithromycin Chronic: Paroxysmal atrial fibrillation Systolic heart failure Insomnia Nicotine dependence Depression/anxiety Neuropathy DVT ppx: Eliquis Code status: Full code Anticipated discharge place: Home Anticipated discharge time: Tomorrow Objective - Vital Signs Vital signs: Vital Signs Temp 97.8 F 05/09/24 07:20 Pulse 66 05/09/24 07:20 Resp 18 05/09/24 07:20 BP 134/69 05/09/24 07:20 Pulse Ox 99 05/09/24 07:20 FiO2 Intake & Output 05/08/24 05/09/24 05/09/24 18:59 06:59 18:59 Intake Total 358 1080 480 Balance 358 1080 480 Intake: Oral 358 1080 480 Other: Voiding Method Toilet Toilet Urinal Urinal # Voids 2 - Labs CBC & Chem 7: 05/06/24 05:51 05/05/24 11:50
--- NOTE | 2024-05-09 12:36 | P.PN ---
Subjective Progress Note Date: 05/09/24 This is a 78-year-old male patient who has a known history of severe oxygen dependent, steroid-dependent chronic obstructive pulmonary disease with an FEV1 value of 37% of predicted. He has been maintained on Wixela, Spiriva, albuterol, Daliresp and prednisone 5 mg daily. He has a history of paroxysmal atrial fibrillation, anticoagulated with Eliquis, obstructive sleep apnea with home CPAP, obesity, renal cell carcinoma status post right nephrectomy, hypertension, chronic and ongoing tobacco dependence. He was just discharged home from here yesterday for a COPD exacerbation as he had been feeling quite a bit better and nearly back to his baseline. His procalcitonin was negative. He came back to the emergency room today with complaints of increasing shortness of breath with minimal exertion. X-ray continues to show no acute pulmonary process. His D-dimer was negative. Count 13.2. Hemoglobin 13.9. Platelets 207. Sodium 136. Potassium 4.2. Bicarb 35. BUN 41. Creatinine 1.43. Tropo amber negative x 1. He is seen in consultation in the emergency department. He is currently sitting up in a chair. Awake and alert in no acute distress. He is maintaining O2 saturations in the 90s on liters per minute per nasal cannula. He is afebrile. Hemodynamically stable. Is dyspneic with conversation. Dyspneic with minimal exertion. The patient is seen today May 06, 2024 in follow-up on the regular medical floor. He is currently sitting up in a chair at the bedside. Awake and alert in no acute distress. He is maintaining O2 saturations in the 90s on 4 L/min per nasal cannula. He is not feeling much better today compared to yesterday. Still dyspneic with minimal exertion, dyspneic with conversation. He remains bronchospastic and wheezing. He is continued on Symbicort, Spiriva, albuterol. Empiric antibiotics in the form of azithromycin. Anticoagulated with Eliquis. White count 11.6. Hemoglobin 13.6. Platelets 182. The patient is seen today May 07, 2024 in follow-up on the regular medical floor. He is awake and alert in no acute distress. Up in a chair at the bedside. Maintaining O2 saturations in the 90s on 4 L/min per nasal cannula with O2 saturations at 97%. He is comfortable at rest. He does have ongoing issues with dyspnea on exertion. Still has some expiratory rhonchi bilaterally. No new labs today. He is continued on Symbicort, Spiriva, Solu-Medrol and albuterol. Anticoagulated with Eliquis. Empiric antibiotics in the form of a zithromycin. The patient is seen today May 08, 2024 in follow-up on the regular medical floor. He is sitting up in a chair at the bedside. Awake and alert in no acute distress. Doing better today compared to yesterday. Not quite back to his baseline. Dyspneic with minimal exertion. He is on oxygen at 4 L/min per nasal cannula. He is afebrile. Hemodynamically stable. He remains on Symbicort, Spiriva albuterol, Solu-Medrol. He is taking his home Daliresp. He is anticoagulated with Eliquis. Remains on azithromycin. Remains on oral diuretics. His procalcitonin was negative at 0.07. The patient is seen today May 09, 2024 in follow-up on the regular medical floor. He is maintaining good O2 saturations in the upper 90s on 4 L/min per nasal cannula. He is been afebrile. Hemodynamically stable. He is sitting up in a chair at the bedside. Awake and alert in no acute distress. States he is comfortable at rest but still has some shortness of breath while up ambulating. He remains on Symbicort, Spiriva albuterol, Solu-Medrol. Taking his home Daliresp. Anticoagulated with Eliquis. Remains on oral diuretics. No new labs today. Objective - Vital Signs Vital signs: Vital Signs Temp 97.8 F 05/09/24 07:20 Pulse 66 05/09/24 07:20 Resp 18 05/09/24 07:20 BP 134/69 05/09/24 07:20 Pulse Ox 99 05/09/24 07:20 FiO2 Intake & Output 05/08/24 05/09/24 05/09/24 18:59 06:59 18:59 Intake Total 358 1080 480 Balance 358 1080 480 Intake: Oral 358 1080 480 Other: Voiding Method Toilet Toilet Urinal Urinal # Voids 2 - Exam GENERAL EXAM: Alert, obese 78-year-old male, on 4 L nasal cannula, in no apparent distress. HEAD: Normocephalic. EYES: Normal reaction of pupils, equal size. NOSE: Clear with pink turbinates. THROAT: No erythema or exudates. NECK: No masses, no JVD. CHEST: No chest wall deformity. LUNGS: Equal air entry with bilateral end expiratory wheeze, rhonchi. CVS: S1 and S2 normal with no audible murmur, regular rhythm. ABDOMEN: No hepatosplenomegaly, normal bowel sounds, no guarding or rigidity. SPINE: No scoliosis or deformity SKIN: No rashes CENTRAL NERVOUS SYSTEM: No focal deficits, tone is normal in all 4 extremities. EXTREMITIES: There is 1+ peripheral edema. No clubbing, no cyanosis. Peripheral pulses are intact. - Labs CBC & Chem 7: 05/06/24 05:51 05/05/24 11:50 Assessment and Plan Assessment: Acute hypoxic respiratory failure secondary to an acute exacerbation of chronic obstructive pulmonary disease. Chest x-ray with no acute pulmonary process. D- dimer negative. Procalcitonin negative. Acute COVID infection 05/02/2024 Severe oxygen dependent, steroid-dependent chronic obstructive pulmonary disease with an FEV1 value of 37% of predicted Chronic tobacco dependence Right nephrectomy Paroxysmal atrial fibrillation, anticoagulated with Eliquis Obstructive sleep apnea utilizing CPAP Obesity Hypertension Macular degeneration History of melanoma status post resection Mildly impaired left ventricular systolic function with ejection fraction 45% Plan: The patient was seen and evaluated Medications reviewed Transitioned to oral steroids Continue bronchodilators Anticoagulated with Eliquis The patient is quite reluctant to go home Will plan for discharge in a.m. Increase his activity as tolerated This patient was seen independently by the pulmonary nurse practitioner addressing pulmonary issues I have personally seen and examined the patient, performed the documentation and the assessment and plan as written. Number of minutes spent on the visit: 25 Dictation was produced using [employer] software. Please excuse any grammatical, word or spelling errors.
[2024-05-10 03:13] VITALS: RESP 18
[2024-05-10 07:33] VITALS: BP 126/64; PULSE 69; TEMP 97.7
--- NOTE | 2024-05-10 11:01 | P.DS ---
Providers Date of admission: 05/05/24 14:03 Expected date of discharge: 05/10/24 Attending physician: Flavia Vega MD Consults: 05/05/24 14:01 Consult Physician Stat Consulting Provider: Gladys Du Consult Reason/Comments: copd Do you want consulting provider notified?: Yes Primary care physician: [facility] Hospital Course: Discharge Diagnosis: Acute COPD exacerbation Acute on chronic hypoxic respiratory failure Leukocytosis, steroid-induced Paroxysmal atrial fibrillation Systolic heart failure Insomnia Nicotine dependence Depression/anxiety Neuropathy Hospital Course: 78-year-old male with history of COPD, chronic hypoxic respiratory failure on 4 L, nicotine dependence, hypertension, dyslipidemia, chronic systolic heart failure, paroxysmal atrial fibrillation, renal cell carcinoma status post right nephrectomy, CKD stage III, macular degeneration presenting with worsening shortness of breath. In the ER, temperature was 97.8, pulse 75, respiratory rate 28, blood pressure 147/72, saturating at 98% on room air. Chest x-ray independently interpreted, shows no acute opacities. WBC 13.2 improved compared to yesterday, hemoglobin 13.9, D-dimer 0.22, sodium 136, bicarb 35, creatinine 1.43 similar to yesterday, troponin negative, lactate 1. Patient on 40 mg oral prednisone, scheduled DuoNebs, oral azithromycin. Pulmonology also consulted. Patient being admitted for COPD exacerbation as observation. Patient was started on IV steroids, now on oral steroid taper. Remains on 2 to 4 L of oxygen. Outpatient follow-up with pulmonology and PCP. Patient seen and examined at bedside. Vital signs reviewed and stable. General: Nontoxic, no distress, appears at stated age chronically ill-appearing Derm: Warm, dry Head: Atraumatic, normocephalic, symmetric Eyes: EOMI, no lid lag, anicteric sclera Mouth: No lip lesion, mucus membranes moist Cardiovascular: S1S2 reg, no murmur Lungs: CTA bilateral, no rhonchi, no rales, no accessory muscle use, supplemental oxygen Abdominal: Soft, nontender to palpation, no guarding, no appreciable organomegaly Ext: No gross muscle atrophy, no edema, no contractures Neuro: CN II-XI grossly intact, no focal neuro deficits Psych: Alert, oriented, appropriate affect A total of 36 minutes of time were spent preparing this complex discharge summary. Patient was discharged on 05/10/2024 at 948. Patient Condition at Discharge: Stable Plan - Discharge Summary Discharge Rx Participant: No New Discharge Prescriptions: New predniSONE [Deltasone] See Rx Instructions .ROUTE .COMPLEX #25 tab Continue Vit C/E/Zn/Coppr/Lutein/Zeaxan [Preservision Areds 2 Softgel] 1 cap PO BID Apixaban [Eliquis] 5 mg PO BID 30 Days #60 tab buPROPion [Wellbutrin] 150 mg PO BID Albuterol Inhaler [Ventolin Hfa Inhaler] 2 puff INHALATION RT-Q6H PRN PRN Reason: Shortness Of Breath Gabapentin [Neurontin] 200 mg PO BID Albuterol Nebulized [Ventolin Nebulized] 2.5 mg INHALATION RT-Q4H Bumetanide [BUMEX] 1 mg PO BID Sennosides/Docusate Sodium [Senna Plus 8.6-50 mg Tablet] 1 tab PO BID Amiodarone [Cordarone] 200 mg PO DAILY Roflumilast [Daliresp] 500 mcg PO DAILY Potassium Chloride ER [K-Dur 20] 20 meq PO DAILY #30 tab Digoxin [Lanoxin] 125 mcg PO DAILY Fluticasone Propion/Salmeterol [Wixela 500-50 Inhub] 1 puff INHALATION RT-BID Cholecalciferol [Vitamin D3 (25 Mcg = 1000 Iu)] 25 mcg PO DAILY Tiotropium 2.5 Mcg/Puff [Spiriva Respimat 2.5 Mcg] 2 puff INHALATION RT-DAILY traZODone HCL [Desyrel] 50 mg PO HS Lidocaine 5% Patch [Lidoderm 5% Patch] 1 patch TRANSDERM DAILY Carboxymethylcellulose Sodium [Refresh Tears] 1 drop BOTH EYES Q6H PRN PRN Reason: Dry Eye(S) Melatonin 5 mg PO HS tab Aspirin 81 mg PO DAILY #90 tab Discontinued predniSONE [Deltasone] See Taper PO DIRECTED Discharge Medication List Vit C/E/Zn/Coppr/Lutein/Zeaxan [Preservision Areds 2 Softgel] 1 cap PO BID 08/03/17 [History] Apixaban [Eliquis] 5 mg PO BID 30 Days #60 tab 11/26/20 [Rx] Amiodarone [Cordarone] 200 mg PO DAILY 12/02/20 [History] Roflumilast [Daliresp] 500 mcg PO DAILY 01/17/21 [History] Potassium Chloride ER [K-Dur 20] 20 meq PO DAILY #30 tab 01/26/21 [Rx] Digoxin [Lanoxin] 125 mcg PO DAILY 11/15/21 [History] Albuterol Inhaler [Ventolin Hfa Inhaler] 2 puff INHALATION RT-Q6H PRN 04/26/23 [History] Cholecalciferol [Vitamin D3 (25 Mcg = 1000 Iu)] 25 mcg PO DAILY 04/26/23 [H istory] Fluticasone Propion/Salmeterol [Wixela 500-50 Inhub] 1 puff INHALATION RT-BID 04/26/23 [History] Tiotropium 2.5 Mcg/Puff [Spiriva Respimat 2.5 Mcg] 2 puff INHALATION RT-DAILY 04/26/23 [History] buPROPion [Wellbutrin] 150 mg PO BID 04/26/23 [History] Albuterol Nebulized [Ventolin Nebulized] 2.5 mg INHALATION RT-Q4H 02/15/24 [History] Bumetanide [BUMEX] 1 mg PO BID 02/15/24 [History] Carboxymethylcellulose Sodium [Refresh Tears] 1 drop BOTH EYES Q6H PRN 02/15/24 [History] Gabapentin [Neurontin] 200 mg PO BID 02/15/24 [History] Lidocaine 5% Patch [Lidoderm 5% Patch] 1 patch TRANSDERM DAILY 02/15/24 [History] traZODone HCL [Desyrel] 50 mg PO HS 02/15/24 [History] Sennosides/Docusate Sodium [Senna Plus 8.6-50 mg Tablet] 1 tab PO BID 05/02/24 [History] Aspirin 81 mg PO DAILY #90 tab 05/04/24 [Rx] Melatonin 5 mg PO HS tab 05/04/24 [Rx] predniSONE [Deltasone] See Rx Instructions .ROUTE .COMPLEX #25 tab 05/10/24 [Rx] Follow up App[facility]ment(s[facility]Ref[facility] - As Needed Chris Ware DO [Doctor of Osteopathic Medicine] - 05/17/24 2:00 pm [facility] [Primary Care Provider] - 1-2 days Patient Instructions/Handouts: COPD (Chronic Obstructive Pulmonary Disease) (DC) Activity/Diet/Wound Care/Special Instructions: Please see your PCP and merchandise examiner. Discharge Disposition: HOME SELF-CARE
--- NOTE | 2024-05-10 12:56 | P.PN ---
Subjective Progress Note Date: 05/10/24 This is a 78-year-old male patient who has a known history of severe oxygen dependent, steroid-dependent chronic obstructive pulmonary disease with an FEV1 value of 37% of predicted. He has been maintained on Wixela, Spiriva, albuterol, Daliresp and prednisone 5 mg daily. He has a history of paroxysmal atrial fibrillation, anticoagulated with Eliquis, obstructive sleep apnea with home CPAP, obesity, renal cell carcinoma status post right nephrectomy, hypertension, chronic and ongoing tobacco dependence. He was just discharged home from here yesterday for a COPD exacerbation as he had been feeling quite a bit better and nearly back to his baseline. His procalcitonin was negative. He came back to the emergency room today with complaints of increasing shortness of breath with minimal exertion. X-ray continues to show no acute pulmonary process. His D-dimer was negative. Count 13.2. Hemoglobin 13.9. Platelets 207. Sodium 136. Potassium 4.2. Bicarb 35. BUN 41. Creatinine 1.43. Tropo amber negative x 1. He is seen in consultation in the emergency department. He is currently sitting up in a chair. Awake and alert in no acute distress. He is maintaining O2 saturations in the 90s on liters per minute per nasal cannula. He is afebrile. Hemodynamically stable. Is dyspneic with conversation. Dyspneic with minimal exertion. The patient is seen today May 06, 2024 in follow-up on the regular medical floor. He is currently sitting up in a chair at the bedside. Awake and alert in no acute distress. He is maintaining O2 saturations in the 90s on 4 L/min per nasal cannula. He is not feeling much better today compared to yesterday. Still dyspneic with minimal exertion, dyspneic with conversation. He remains bronchospastic and wheezing. He is continued on Symbicort, Spiriva, albuterol. Empiric antibiotics in the form of azithromycin. Anticoagulated with Eliquis. White count 11.6. Hemoglobin 13.6. Platelets 182. The patient is seen today May 07, 2024 in follow-up on the regular medical floor. He is awake and alert in no acute distress. Up in a chair at the bedside. Maintaining O2 saturations in the 90s on 4 L/min per nasal cannula with O2 saturations at 97%. He is comfortable at rest. He does have ongoing issues with dyspnea on exertion. Still has some expiratory rhonchi bilaterally. No new labs today. He is continued on Symbicort, Spiriva, Solu-Medrol and albuterol. Anticoagulated with Eliquis. Empiric antibiotics in the form of a zithromycin. The patient is seen today May 08, 2024 in follow-up on the regular medical floor. He is sitting up in a chair at the bedside. Awake and alert in no acute distress. Doing better today compared to yesterday. Not quite back to his baseline. Dyspneic with minimal exertion. He is on oxygen at 4 L/min per nasal cannula. He is afebrile. Hemodynamically stable. He remains on Symbicort, Spiriva albuterol, Solu-Medrol. He is taking his home Daliresp. He is anticoagulated with Eliquis. Remains on azithromycin. Remains on oral diuretics. His procalcitonin was negative at 0.07. The patient is seen today May 09, 2024 in follow-up on the regular medical floor. He is maintaining good O2 saturations in the upper 90s on 4 L/min per nasal cannula. He is been afebrile. Hemodynamically stable. He is sitting up in a chair at the bedside. Awake and alert in no acute distress. States he is comfortable at rest but still has some shortness of breath while up ambulating. He remains on Symbicort, Spiriva albuterol, Solu-Medrol. Taking his home Daliresp. Anticoagulated with Eliquis. Remains on oral diuretics. No new labs today. The patient is seen today May 10, 2024 in follow-up on the regular medical floor. He is sitting up in a chair. Awake and alert in no acute distress. Feeling quite a bit better today compared to yesterday. Feeling back to his bas rohith. He is maintaining O2 saturations in the 90s on 3 L/min per nasal cannula. He does have home oxygen. He is continued on DuoNeb inhalations, Symbicort, prednisone taper. Anticoagulated with Eliquis. Continued on his home Daliresp. Remains on oral diuretics. No new labs today. Objective - Vital Signs Vital signs: Vital Signs Temp 97.7 F 05/10/24 07:32 Pulse 69 05/10/24 07:32 Resp 18 05/10/24 07:32 BP 126/64 05/10/24 07:32 Pulse Ox 96 05/10/24 07:32 FiO2 Intake & Output 05/09/24 05/10/24 05/10/24 18:59 06:59 18:59 Intake Total 1042 118 Balance 1042 118 Intake: Oral 1042 118 Other: # Voids 4 4 # Bowel Movements 1 - Exam GENERAL EXAM: Alert, obese 78-year-old male, up in a chair, on 3 L nasal cannula, in no apparent distress. HEAD: Normocephalic. EYES: Normal reaction of pupils, equal size. NOSE: Clear with pink turbinates. THROAT: No erythema or exudates. NECK: No masses, no JVD. CHEST: No chest wall deformity. LUNGS: Equal air entry with bilateral end expiratory wheeze, rhonchi. CVS: S1 and S2 normal with no audible murmur, regular rhythm. ABDOMEN: No hepatosplenomegaly, normal bowel sounds, no guarding or rigidity. SPINE: No scoliosis or deformity SKIN: No rashes CENTRAL NERVOUS SYSTEM: No focal deficits, tone is normal in all 4 extremities. EXTREMITIES: There is 1+ peripheral edema. No clubbing, no cyanosis. Peripheral pulses are intact. - Labs CBC & Chem 7: 05/06/24 05:51 05/05/24 11:50 Assessment and Plan Assessment: Acute hypoxic respiratory failure secondary to an acute exacerbation of chronic obstructive pulmonary disease. Chest x-ray with no acute pulmonary process. D- dimer negative. Procalcitonin negative. Acute COVID infection 05/02/2024 Severe oxygen dependent, steroid-dependent chronic obstructive pulmonary disease with an FEV1 value of 37% of predicted Chronic tobacco dependence Right nephrectomy Paroxysmal atrial fibrillation, anticoagulated with Eliquis Obstructive sleep apnea utilizing CPAP Obesity Hypertension Macular degeneration History of melanoma status post resection Mildly impaired left ventricular systolic function with ejection fraction 45% Plan: The patient was seen and evaluated Medications reviewed Cleared for discharge To continue his home pulmonary medications, oxygen Complete a prednisone taper Follow-up with Dr. Ware in our office in 1 week This patient was seen independently by the pulmonary nurse practitioner addressing pulmonary issues I have personally seen and examined the patient, performed the documentation and the assessment and plan as written. Number of minutes spent on the visit: 23 Dictation was produced using [employer] software. Please excuse any grammatical, word or spelling errors.
== END 2024-05-10 12:16 | disposition home or self-care (01) | DRG 189 ==
LOC: EC 11:19 → 6NMEDSUR 14:02 → OBSVTOIN 14:03 → 6NMEDSUR 17:42
PROVIDERS: ADMIT Internal Medicine; ATTEND Internal Medicine
DX: J96.21 Acute and chronic respiratory failure with hypoxia (principal); I13.0 Hypertensive heart and chronic kidney disease with heart failure and stage 1 through stage 4 chronic kidney disease, or unspecified chronic kidney disease; I50.22 Chronic systolic (congestive) heart failure; J43.9 Emphysema, unspecified; E66.9 Obesity, unspecified; Z68.33 Body mass index [BMI] 33.0-33.9, adult; E78.5 Hyperlipidemia, unspecified; F32.A Depression, unspecified; F17.210 Nicotine dependence, cigarettes, uncomplicated; Z71.6 Tobacco abuse counseling; F41.9 Anxiety disorder, unspecified; G47.00 Insomnia, unspecified; H54.8 Legal blindness, as defined in USA; H91.90 Unspecified hearing loss, unspecified ear; H35.30 Unspecified macular degeneration; G62.9 Polyneuropathy, unspecified; I48.0 Paroxysmal atrial fibrillation; Z79.01 Long term (current) use of anticoagulants; G47.33 Obstructive sleep apnea (adult) (pediatric); N18.30 Chronic kidney disease, stage 3 unspecified; M19.90 Unspecified osteoarthritis, unspecified site; T38.0X5A Adverse effect of glucocorticoids and synthetic analogues, initial encounter; Z79.52 Long term (current) use of systemic steroids; Z79.82 Long term (current) use of aspirin; Z79.899 Other long term (current) drug therapy; Z85.820 Personal history of malignant melanoma of skin; Z85.528 Personal history of other malignant neoplasm of kidney; Z86.16 Personal history of COVID-19; Z90.5 Acquired absence of kidney; Z97.4 Presence of external hearing-aid; Z99.81 Dependence on supplemental oxygen; X58.XXXA Exposure to other specified factors, initial encounter; Z86.19 Personal history of other infectious and parasitic diseases; Z87.01 Personal history of pneumonia (recurrent)
CPT/HCPCS: 36415; 71046; 80053; 83605; 84145; 84484; 85025; 85379; 85610; 85730; 93005; 94640; 94667; 94668; 94760; 96374; 99285

== ENCOUNTER 2024-06-04 16:58 | Inpatient (IN) | payer OTHER, MEDICARE ==
--- NOTE | 2024-06-04 17:44 | ED ---
SOB HPI - General Source: patient, RN notes reviewed Mode of arrival: ambulatory Limitations: no limitations - History of Present Illness MD Complaint: shortness of breath <Chasity Hall - Last Filed: 06/04/24 17:43> - General Source: patient, family, RN notes reviewed Mode of arrival: ambulatory Limitations: no limitations <Mango Guzman - Last Filed: 06/04/24 19:31> - General Chief Complaint: Shortness of Breath Stated Complaint: difficulty breathing Time Seen by Provider: 06/04/24 17:40 - History of Present Illness Initial Comments: Quick Note: This is a 78-year-old male who presents to the emergency department for shortness of breath. States that it started a couple of days ago. This is much worse with activity. He has a history of COPD and wears oxygen at baseline. He has not had to increase how much oxygen he uses. States that this feels like another COPD exacerbation. (Chasity Hall) Patient is a 70-year-old male present to the emergency department with concerns with difficulty in breathing. Onset of symptoms was just a couple days ago. Patient does have history of COPD with somewhat similar symptoms. No fevers. Patient has chest congestion and cough. Patient does have some leg edema. No calf pain. Symptoms worsen with exertion and patient has to rest on the way to the restroom. Patient does have some associated tightness in his chest. (Mango Guzman) - Related Data Home Medications Medication Instructions Recorded Confirmed Vit C/E/Zn/Coppr/Lutein/Zeaxan 1 cap PO BID 08/03/17 05/05/24 [Preservision Areds 2 Softgel] Amiodarone [Cordarone] 200 mg PO DAILY 12/02/20 05/05/24 Roflumilast [Daliresp] 500 mcg PO DAILY 01/17/21 05/05/24 Digoxin [Lanoxin] 125 mcg PO DAILY 11/15/21 05/05/24 Albuterol Inhaler [Ventolin Hfa 2 puff INHALATION RT-Q6H PRN 04/26/23 05/05/24 Inhaler] Cholecalciferol [Vitamin D3 (25 25 mcg PO DAILY 04/26/23 05/05/24 Mcg = 1000 Iu)] Fluticasone Propion/Salmeterol 1 puff INHALATION RT-BID 04/26/23 05/05/24 [Wixela 500-50 Inhub] Tiotropium 2.5 Mcg/Puff [Spiriva 2 puff INHALATION RT-DAILY 04/26/23 05/05/24 Respimat 2.5 Mcg] buPROPion [Wellbutrin] 150 mg PO BID 04/26/23 05/05/24 Albuterol Nebulized [Ventolin 2.5 mg INHALATION RT-Q4H 02/15/24 05/05/24 Nebulized] Bumetanide [BUMEX] 1 mg PO BID 02/15/24 05/05/24 Carboxymethylcellulose Sodium 1 drop BOTH EYES Q6H PRN 02/15/24 05/05/24 [Refresh Tears] Gabapentin [Neurontin] 200 mg PO BID 02/15/24 05/05/24 Lidocaine 5% Patch [Lidoderm 5% 1 patch TRANSDERM DAILY 02/15/24 05/05/24 Patch] traZODone HCL [Desyrel] 50 mg PO HS 02/15/24 05/05/24 Sennosides/Docusate Sodium [Senna 1 tab PO BID 05/02/24 05/05/24 Plus 8.6-50 mg Tablet] Previous Rx's Medication Instructions Recorded Apixaban [Eliquis] 5 mg PO BID 30 Days #60 tab 11/26/20 Potassium Chloride ER [K-Dur 20] 20 meq PO DAILY #30 tab 01/26/21 Aspirin 81 mg PO DAILY #90 tab 05/04/24 Melatonin 5 mg PO HS tab 05/04/24 predniSONE [Deltasone] See Rx Instructions .ROUTE 05/10/24 .COMPLEX #25 tab Allergies Allergy/AdvReac Type Severity Reaction Status Date / Time atorvastatin [From Lipitor] AdvReac Muscle pain Verified 06/04/24 17:30 Review of Systems ROS Other: All systems not noted in ROS Statement are negative. <Chasity Hall - Last Filed: 06/04/24 17:43> ROS Other: All systems not noted in ROS Statement are negative. Constitutional: Denies: fever, chills Eyes: Denies: eye pain ENT: Reports: congestion Respiratory: Reports: cough, dyspnea Cardiovascular: Reports: as per HPI, chest pain (Patient does have some associated chest tightness) Endocrine: Reports: fatigue Gastrointestinal: Denies: abdominal pain Genitourinary: Denies: dysuria Musculoskeletal: Denies: back pain Skin: Denies: rash Neurological: Denies: weakness <Mango Guzman - Last Filed: 06/04/24 19:31> ROS Statement: Those systems with pertinent positive or pertinent negative responses have been documented in the HPI. Past Medical History Past Medical History: Atrial Fibrillation, Cancer, COPD, Eye Disorder, Hearing Disorder / Deafness, Hyperlipidemia, Hypertension, Osteoarthritis (OA) Additional Past Medical History / Comment(s): Emphysema (takes inhalers and uses oxygen at home). Hx Kidney Cancer in 2006, R nephrectomy.q Left eye detached retina. Wet Macular Degeneration right eye. Hx Melanoma on back. Bilateral hearing aid use, legally blind. History of Any Multi-Drug Resistant Organisms: None Reported Past Surgical History: Back Surgery Additional Past Surgical History / Comment(s): Right kidney removed. Left eye surgery X3 for detacted retina. Bilateral cataract surgery. Mohs surgery thoracic spine for melanoma.plate in right arm, bilateral eye lids lifted Past Anesthesia/Blood Transfusion Reactions: Previous Problems w/ Anesthesia Additional Past Anesthesia/Blood Transfusion Reaction / Comment(s): States low heart rate, light-headed and low BP X1 with anesthesia. "Got broke vocal cord and could not talk for 2 months after anesthesia one time." Past Psychological History: Anxiety, Depression Smoking Status: Current some day smoker Past Alcohol Use History: Occasional Past Drug Use History: None Reported - Past Family History Mother Family Medical History: Cancer Additional Family Medical History / Comment(s): Brain Cancer. Father Family Medical History: CVA/TIA <Chasity Hall - Last Filed: 06/04/24 17:43> General Exam Limitations: no limitations <Chasity Hall - Last Filed: 06/04/24 17:43> Limitations: no limitations General appearance: alert, in no apparent distress Head exam: Present: normocephalic Eye exam: Present: normal appearance Neck exam: Present: normal inspection Respiratory exam: Present: wheezes, decreased breath sounds Cardiovascular Exam: Present: regular rate, normal rhythm GI/Abdominal exam: Present: soft. Absent: tenderness Extremities exam: Present: pedal edema. Absent: calf tenderness Neurological exam: Present: alert Psychiatric exam: Present: normal affect, normal mood Skin exam: Present: normal color <Mango Guzman - Last Filed: 06/04/24 19:31> - General Exam Comments Initial Comments: Visual Physical Exam Vital signs reviewed General: Well-appearing, nontoxic, no acute distress. Head: Normocephalic, atraumatic Eyes: PERRLA, EOMI ENT: Airway patent Chest: Nonlabored breathing Skin: No visual rash, normal skin tone Neuro: Alert and oriented 3 Musculoskeletal: No gross abnormalities (Chasity Hall) Course Vital Signs 06/04/24 17:26 Temperature 98.5 F Pulse Rate 77 Respiratory 20 Rate Blood Pressure 137/68 O2 Sat by Pulse 96 Oximetry Medical Decision Making <Chasity Hall - Last Filed: 06/04/24 17:43> - Lab Data Result diagrams: 06/04/24 18:00 06/04/24 18:00 <Mango Guzman - Last Filed: 06/04/24 19:31> - Medical Decision Making I performed the QuickNote portion of this chart. Signed Chasity Hall PA-C. (Chasity Hall) EKG interpreted by myself shows sinus rhythm rate of 69. Right axis. Right bundle branch block. Nonspecific T waves Was pt. sent in by a medical professional or institution ([facility], [employer], urgent care, hospital, or longterm...) When possible be specific @ -No Did you speak to anyone other than the patient for history (EMS, parent, family, police, friend...)? What history was obtained from this source @ -Family's present helps right history of COPD Did you review nursing and triage notes (agree or disagree)? Why? @ -I reviewed and agree with nursing and triage notes Were old charts reviewed (outside hosp., previous admission, EMS record, old EKG, old radiological studies, urgent care reports/EKG's, longterm records)? Report findings @ -No old charts were reviewed Differential Diagnosis (chest pain, altered mental status, abdominal pain women, abdominal pain men, vaginal bleeding, weakness, fever, dyspnea, syncope, headache, dizziness, GI bleed, back pain, seizure, CVA, palpatations, mental health, musculoskeletal)? @ -Differential Dyspnea: Coronary syndrome, arrhythmia, tamponade, asthma, COPD, pulmonary embolism, pneumonia, pneumothorax, pulmonary effusion, anaphylaxis, diabetic ketoacidosis, flailed chest, pulmonary contusion, diaphragmatic rupture, anemia, neuromuscular, this is not meant to be an all-inclusive list. EKG interpreted by me (3pts min.). @ -As above X-rays interpreted by me (1pt min.). @ -Chest x-ray shows subtle scattered opacity CT interpreted by me (1pt min.). @ -None done U/S interpreted by me (1pt. min.). @ -None done What testing was considered but not performed or refused? (CT, X-rays, U/S, labs)? Why? @ -None What meds were considered but not given or refused? Why? @ -None Did you discuss the management of the patient with other professionals (professionals i.e. , PA, INDUSTRIAL SPRAYPAINTER, lab, RT, psych nurse, social psychologist, secondary education professor, teacher, attendance officer, case repairer)? Give summary @ -Case was discussed with practitioner Kelsey who will admit covering hospital call Was smoking cessation discussed for >3mins.? @ -No Was critical care preformed (if so, how long)? @ -No Were there social determinants of health that impacted care today? How? (Homelessness, low income, unemployed, alcoholism, drug addiction, transportation, low edu. Level, literacy, decrease access to med. care, care home, rehab)? @ -No Was there de-escalation of care discussed even if they declined (Discuss DNR or withdrawal of care, Hospice)? DNR status @ -No What co-morbidities impacted this encounter? (DM, HTN, Smoking, COPD, CAD, Cancer, CVA, ARF, Chemo, Hep., AIDS, mental health diagnosis, sleep apnea, morbid obesity)? @ -History of COPD Was patient admitted / discharged? Hospital course, mention meds given and route, prescriptions, significant lab abnormalities, going to OR and other pertinent info. @ -Patient with history of COPD presents for dyspnea. Evaluation is otherwise unremarkable except for some scattered opacities on chest x-ray. Patient will be admitted and covered with antibiotics. Blood culture and lactic acid also ordered. Patient reevaluated. Patient updated. Admission orders written Undiagnosed new problem with uncertain prognosis? @ -No Drug Therapy requiring intensive monitoring for toxicity (Heparin, Nitro, Insulin, Cardizem)? @ -No Were any procedures done? @ -No Diagnosis/symptom? @ -COPD Acute, or Chronic, or Acute on Chronic? @ -Acute Uncomplicated (without systemic symptoms) or Complicated (systemic symptoms)? @ -Default Side effects of treatment? @ -No Exacerbation, Progression, or Severe Exacerbation? @ -No Poses a threat to life or bodily function? How? (Chest pain, [place], GA, pneumonia, PE, COPD, DKA, ARF, appy, cholecystitis, CVA, Diverticulitis, Homicidal, Stacy cidal, threat to staff... and all critical care pts) @ -Threat to pulmonary function (Mango Guzman) - Lab Data Lab Results 06/04/24 06/04/24 06/04/24 Range/Units 18:00 18:00 18:00 WBC 7.1 (3.8-10.6) k/uL RBC 3.76 L (4.30-5.90) m/uL Hgb 12.0 L (13.0-17.5) gm/dL Hct 37.1 L (39.0-53.0) % MCV 98.8 (80.0-100.0) fL MCH 31.9 (25.0-35.0) pg MCHC 32.3 (31.0-37.0) g/dL RDW 14.2 (11.5-15.5) % Plt Count 212 (150-450) k/uL MPV 7.5 Neutrophils % 86 % Lymphocytes % 9 % Monocytes % 3 % Eosinophils % 1 % Basophils % 0 % Neutrophils # 6.1 (1.3-7.7) k/uL Lymphocytes # 0.6 L (1.0-4.8) k/uL Monocytes # 0.2 (0-1.0) k/uL Eosinophils # 0.1 (0-0.7) k/uL Basophils # 0.0 (0-0.2) k/uL PT 10.0 (10.0-12.5) sec INR 0.9 (<1.2) APTT 21.2 L (22.0-30.0) sec Sodium 139 (137-145) mmol/L Potassium 5.4 H (3.5-5.1) mmol/L Chloride 97 L (98-107) mmol/L Carbon Dioxide 36 H (22-30) mmol/L Anion Gap 6 mmol/L BUN 33 H (9-20) mg/dL Creatinine 1.24 (0.66-1.25) mg/dL Est GFR (CKD-EPI)AfAm 64 (>60 ml/min/1.73 sqM) Est GFR (CKD-EPI)NonAf 56 (>60 ml/min/1.73 sqM) Glucose 117 H (74-99) mg/dL Plasma Lactic Acid Fabiano (0.7-2.0) mmol/L Calcium 9.1 (8.4-10.2) mg/dL Magnesium 2.2 (1.6-2.3) mg/dL Total Bilirubin 0.6 (0.2-1.3) mg/dL AST 24 (17-59) U/L ALT 24 (4-49) U/L Alkaline Phosphatase 58 (38-126) U/L Troponin I (0.000-0.034) ng/mL NT-Pro-B Natriuret Pep 315 pg/mL Total Protein 6.0 L (6.3-8.2) g/dL Albumin 3.5 (3.5-5.0) g/dL Influenza Type A (PCR) (Not Detectd) Influenza Type B (PCR) (Not Detectd) RSV (PCR) (Not Detectd) SARS-CoV-2 (PCR) (Not Detectd) 06/04/24 06/04/24 06/04/24 Range/Units 18:00 18:00 18:06 WBC (3.8-10.6) k/uL RBC (4.30-5.90) m/uL Hgb (13.0-17.5) gm/dL Hct (39.0-53.0) % MCV (80.0-100.0) fL MCH (25.0-35.0) pg MCHC (31.0-37.0) g/dL RDW (11.5-15.5) % Plt Count (150-450) k/uL MPV Neutrophils % % Lymphocytes % % Monocytes % % Eosinophils % % Basophils % % Neutrophils # (1.3-7.7) k/uL Lymphocytes # (1.0-4.8) k/uL Monocytes # (0-1.0) k/uL Eosinophils # (0-0.7) k/uL Basophils # (0-0.2) k/uL PT (10.0-12.5) sec INR (<1.2) APTT (22.0-30.0) sec Sodium (137-145) mmol/L Potassium (3.5-5.1) mmol/L Chloride (98-107) mmol/L Carbon Dioxide (22-30) mmol/L Anion Gap mmol/L BUN (9-20) mg/dL Creatinine (0.66-1.25) mg/dL Est GFR (CKD-EPI)AfAm (>60 ml/min/1.73 sqM) Est GFR (CKD-EPI)NonAf (>60 ml/min/1.73 sqM) Glucose (74-99) mg/dL Plasma Lactic Acid Fabiano 1.9 (0.7-2.0) mmol/L Calcium (8.4-10.2) mg/dL Magnesium (1.6-2.3) mg/dL Total Bilirubin (0.2-1.3) mg/dL AST (17-59) U/L ALT (4-49) U/L Alkaline Phosphatase (38-126) U/L Troponin I <0.012 (0.000-0.034) ng/mL NT-Pro-B Natriuret Pep pg/mL Total Protein (6.3-8.2) g/dL Albumin (3.5-5.0) g/dL Influenza Type A (PCR) Not Detected (Not Detectd) Influenza Type B (PCR) Not Detected (Not Detectd) RSV (PCR) Not Detected (Not Detectd) SARS-CoV-2 (PCR) Not Detected (Not Detectd) Disposition <Chasity Hall - Last Filed: 06/04/24 17:43> Is patient prescribed a controlled substance at d/c from ED?: No Time of Disposition: 19:31 <Mango Guzman - Last Filed: 06/04/24 19:31> Clinical Impression: COPD (chronic obstructive pulmonary disease) Disposition: ADMITTED IP TO THIS HOSP Referrals: Vickie Haro, PAC [REFERRING] - 1-2 days
[2024-06-04 18:23] LABS: INR 0.9 (<1.2)
[2024-06-04 18:26] LABS: Basophils % (A) 0 %; Eosinophils # (A) 0.1 k/uL (0-0.7); Eosinophils % (A) 1 %; HCT 37.1 % (39.0-53.0); Lymphocytes # (A) 0.6 k/uL (1.0-4.8); Lymphocytes % (A) 9 %; MCH 31.9 pg (25.0-35.0); MCHC 32.3 g/dL (31.0-37.0); MCV 98.8 fL (80.0-100.0); Mean Platelet Volume 7.5; Monocytes # (A) 0.2 k/uL (0-1.0); Monocytes % (A) 3 %; Neutrophils # (A) 6.1 k/uL (1.3-7.7); Neutrophils % (A) 86 %; Platelet Count 212 k/uL (150-450); RBC 3.76 m/uL (4.30-5.90); RDW 14.2 % (11.5-15.5); WBC 7.1 k/uL (3.8-10.6)
[2024-06-04 18:31] LABS: ALT 24 U/L (4-49); AST 24 U/L (17-59); African American GFR (CKD) 64 (>60 ml/min/1.73 sqM); Albumin 3.5 g/dL (3.5-5.0); Alkaline Phosphatase 58 U/L (38-126); Blood Urea Nitrogen 33 mg/dL (9-20); Calcium 9.1 mg/dL (8.4-10.2); Chloride 97 mmol/L (98-107); Glucose 117 mg/dL (74-99); Magnesium 2.2 mg/dL (1.6-2.3); Non-African American GFR(CKD) 56 (>60 ml/min/1.73 sqM); Potassium 5.4 mmol/L (3.5-5.1); Sodium 139 mmol/L (137-145); Total Bilirubin 0.6 mg/dL (0.2-1.3)
[2024-06-04 18:37] LABS: Anion Gap 6 mmol/L; Carbon Dioxide 36 mmol/L (22-30)
[2024-06-04 18:39] LABS: NT-Pro-B-Type Natriuretic Pept 315 pg/mL
[2024-06-04 18:52] LABS: Partial Thromboplastin Time 21.2 sec (22.0-30.0)
[2024-06-04 18:57] LABS: Influenza A Not Detected (Not Detectd); Influenza B Not Detected (Not Detectd); RSV Not Detected (Not Detectd)
--- NOTE | 2024-06-04 19:22 | XR ---
EXAMINATION TYPE: XR chest 2V DATE OF EXAM: 06/04/2024 6:47 PM COMPARISON: Chest radiographs from 05/05/2024. CLINICAL INDICATION: Male, 78 years old with history of difficulty breathing; TECHNIQUE: XR chest 2V Frontal and lateral views of the chest. FINDINGS: Lungs/Pleura: Scattered subtle reticular and hazy opacities. No evidence of pneumothorax, focal conso lidation or pleural effusion. Pulmonary vascularity: Unremarkable. Heart/mediastinum: Cardiomediastinal silhouette is unremarkable. Musculoskeletal: No acute osseous pathology. IMPRESSION: Subtle scattered opacities which may represent an atypical pneumonia. Correlate for covid 19. [facility], , 06/04/2024 7:20 PM
[2024-06-04] MEDS ORDERED: IPRATROPIUM-ALBUTEROL 3 ML NEB INHALATION PRN (19:32)
[2024-06-04] MEDS ORDERED: NALOXONE 0.4 MG/ML 1 ML VIAL IVP PRN (19:32)
[2024-06-04] MEDS: IPRATROPIUM-ALBUTEROL 3 ML NEB INHALATION STA (19:44)
[2024-06-04] MEDS: IPRATROPIUM-ALBUTEROL 3 ML NEB INHALATION SCH (19:45)
[2024-06-04] MEDS: methylPREDNISolone SOD SUCCI 125 MG/2 ML VIAL IV STA (20:09)
[2024-06-04] MEDS: AZITHROMYCIN 500 MG in SODIUM CHLORIDE 0.9% 250 ML IVPB SCH (20:09)
[2024-06-04] MEDS ORDERED: ARTIFICIAL TEARS-HYPROMELLOSE DROPS 15 ML BTL BOTH EYES PRN (20:33)
[2024-06-04] MEDS: FUROSEMIDE 10 MG/ML 4 ML VIAL IV STA (21:50)
[2024-06-04] MEDS: APIXABAN 5 MG TAB PO SCH (21:51)
[2024-06-04] MEDS: VIT A,C & E-LUTEIN-MINERALS 1 EACH TAB PO SCH (21:51)
[2024-06-04] MEDS: SENNOSIDES-DOCUSATE SODIUM 1 EACH TAB PO SCH (21:51)
[2024-06-04] MEDS: BUMETANIDE 1 MG TAB PO SCH (21:51)
[2024-06-04] MEDS: MELATONIN 5 MG TABLET PO SCH (21:51)
[2024-06-04] MEDS: buPROPion 75 MG TAB PO SCH (21:51)
[2024-06-04] MEDS: GABAPENTIN 100 MG CAP PO SCH (21:51)
[2024-06-04] MEDS: traZODone HCL 50 MG TAB PO SCH (21:51)
[2024-06-05] MEDS: methylPREDNISolone SOD SUCCI 125 MG/2 ML VIAL IV SCH (01:36)
--- NOTE | 2024-06-05 02:28 | P.HPIM ---
History of Present Illness H&P Date: 06/05/24 Chief Complaint: Shortness of breath Patient is a 78-year-old male with history of COPD, chronic hypoxic respiratory failure on 2 L home oxygen, nicotine dependence, hypertension, dyslipidemia, HFrEF (EF 25 to 30%), paroxysmal atrial fibrillation, renal cell carcinoma status post right nephrectomy, CKD stage III, macular degeneration presenting with worsening shortness of breath. Patient states he follows with Dr. Ware and Dr. Rodgers. Patient states he has been having progressively worsening shortness of breath and now cannot walk 20 feet without becoming extremely wi nded. He endorses a chest heaviness, but denies any chest pain. He also reports that his has been sick with upper respiratory infection symptoms. Patient states generally his O2 sats are 93% but over the last few days he has gone as low as 77%. Patient states he uses his incentive spirometer at least a few times a day and is able to bring up some mucus which he says improves his respiratory status temporarily. Patient currently endorses smoking 2 to 3 cigarettes a day. Patient also endorsed some lightheadedness, which he thought was his A-fib and checked his blood pressure and found it to be 110/70. He denies any fever, cough, nausea, vomiting, diarrhea. It is of note that patient had recent admission last month for acute COPD exacerbation in setting of COVID infection. Vitals on admission temperature 97.8, heart rate 75, respiratory rate 20, blood pressure 147/72, O2 saturation 98% on 6 L nasal cannula EKG independently interpreted as sinus rhythm, ventricular rate 63 bpm, QTc 390 ms CXR shows subtle scattered opacities which may represent an atypical pneumonia Labs on admission show WBCs 7.1, hemoglobin 12, MCV 98.8, platelets 212. PT 10, INR 0.9, PTT 21.2. Sodium 139, potassium 5.4, chloride 97, bicarb 36, BUN 33, c reatinine 1.24, glucose 117. Calcium 9.1, magnesium 2.2. LFTs within normal limits. Troponin negative. NT proBNP 315. Cepheid negative. Digoxin 0.8, therapeutic. Review of systems: Pertinent positives and negatives as discussed in HPI, a complete review of systems was performed and all other systems are negative. Allergies: denies PCP: Vickie Haro [facility] Social history: Tobacco: 2-3 cigarettes a day Alcohol: 4 drinks a week Caffeine: 2 cups a day at home, 4 cups since he's been here Recreational drugs: gummies Travel: none Sick contacts: daughter in law Physical examination: Vital signs reviewed General: nontoxic, no distress, appears at stated age, currently on 2 L nasal cannula Derm: warm, dry, intact Head: atraumatic, normocephalic, symmetric Eyes: anicteric sclera Mouth: no lip lesion, mucus membranes moist Cardiovascular: S1 S2 reg, no murmur Lungs: Diminished breath sounds bilaterally, no wheezing, rales, rhonchi Abdominal: soft, non-tender to palpation, nondistended Extremities: 1+ nonpitting pedal edema which patient states is at baseline Neuro: Alert, Oriented to person, time and place, Gross neurological examination did not reveal any focal deficits. Cranial nerves II to XII grossly intact. Bilateral upper and lower extremity muscle strength intact and sensation intact. Psych: well appearing, appropriate affect Assessment/Plan: Patient is a 78-year-old male with past medical history of COPD, chronic hypoxic respiratory failure, nicotine dependence, hypertension, dyslipidemia, chronic systolic heart failure, paroxysmal A-fib who presented to the ER with worsening shortness of breath. Case was discussed with ER physician and patient will be admitted to internal medicine service for further evaluation. Active: Acute on chronic hypoxic respiratory failure secondary to acute COPD exacerbation Currently on 2 L nasal cannula Wean oxygen as tolerated to maintain oxygen saturations of greater than 94% DuoNebs 4 times daily and every 2 hours as needed Consult pulmonology Continue IV Solu-Medrol 60 mg every 6 hours Continue azithromycin 500 mg daily Check procalcitonin Continue Symbicort 2 puffs twice daily Continue Roflumilast 500 mcg daily Follow-up blood culture Hyperkalemia Hold K-Dur 20 milliequivalents daily Received one dose of Lasix in ED Continue to monitor Mild normocytic anemia, likely transient Continue to monitor CBC Chronic: Paroxysmal A-fib, currently normal sinus rhythm Continue Eliquis 5 mg p.o. twice daily Continue amiodarone 200 mg daily Cardiac monitoring Chronic kidney disease stage IIIa, at baseline Continue to monitor HFrEF (EF of 25 to 35%), not currently in exacerbation Continue Bumex 1 mg daily Continue digoxin 125 mcg daily Peripheral neuropathy Continue gabapentin 200 mg twice daily Depression/anxiety Continue Wellbutrin 150 mg twice daily Insomnia Continue trazodone 50 mg p.o. at bedtime F: 0.9% NS at 100 mL/h E: Replete as needed N: Heart healthy A: As tolerated DVT prophylaxis: On Eliquis 5 mg twice daily for A-fib The patient is admitted with an anticipated more than 2 midnight stay for evaluation of acute COPD exacerbation CODE STATUS: Full code Discussed with: Patient Anticipated discharge place: Pending clinical course Past Medical History Past Medical History: Atrial Fibrillation, Cancer, COPD, Eye Disorder, Hearing Disorder / Deafness, Hyperlipidemia, Hypertension, Osteoarthritis (OA) Additional Past Medical History / Comment(s): Emphysema (takes inhalers and uses oxygen at home). Hx Kidney Cancer in 2006, R nephrectomy.q Left eye detached ret yvette. Wet Macular Degeneration right eye. Hx Melanoma on back. Bilateral hearing aid use, legally blind. History of Any Multi-Drug Resistant Organisms: None Reported Past Surgical History: Back Surgery Additional Past Surgical History / Comment(s): Right kidney removed. Left eye surgery X3 for detacted retina. Bilateral cataract surgery. Mohs surgery thoracic spine for melanoma.plate in right arm, bilateral eye lids lifted Past Anesthesia/Blood Transfusion Reactions: Previous Problems w/ Anesthesia Additional Past Anesthesia/Blood Transfusion Reaction / Comment(s): States low heart rate, light-headed and low BP X1 with anesthesia. "Got broke vocal cord and could not talk for 2 months after anesthesia one time." Past Psychological History: Anxiety, Depression Smoking Status: Current some day smoker Past Alcohol Use History: Occasional Past Drug Use History: None Reported - Past Family History Mother Family Medical History: Cancer Additional Family Medical History / Comment(s): Brain Cancer. Father Family Medical History: CVA/TIA Medications and Allergies Home Medications Medication Instructions Recorded Confirmed Type Vit C/E/Zn/Coppr/Lutein/Zeaxan 1 cap PO BID 08/03/17 06/04/24 History [Preservision Areds 2 Softgel] Apixaban [Eliquis] 5 mg PO BID 30 Days #60 tab 11/26/20 06/04/24 Rx Amiodarone [Cordarone] 200 mg PO DAILY 12/02/20 06/04/24 History Roflumilast [Daliresp] 500 mcg PO DAILY 01/17/21 06/04/24 History Potassium Chloride ER [K-Dur 20] 20 meq PO DAILY #30 tab 01/26/21 06/04/24 Rx Digoxin [Lanoxin] 125 mcg PO DAILY 11/15/21 06/04/24 History Albuterol Inhaler [Ventolin Hfa 2 puff INHALATION RT-Q6H PRN 04/26/23 06/04/24 History Inhaler] Cholecalciferol [Vitamin D3 (25 25 mcg PO DAILY 04/26/23 06/04/24 History Mcg = 1000 Iu)] Fluticasone Propion/Salmeterol 1 puff INHALATION RT-BID 04/26/23 06/04/24 History [Wixela 500-50 Inhub] Tiotropium 2.5 Mcg/Puff [Spiriva 2 puff INHALATION RT-DAILY 04/26/23 06/04/24 History Respimat 2.5 Mcg] buPROPion [Wellbutrin] 150 mg PO BID 04/26/23 06/04/24 History Albuterol Nebulized [Ventolin 2.5 mg INHALATION RT-Q4H 02/15/24 06/04/24 History Nebulized] Bumetanide [BUMEX] 1 mg PO BID 02/15/24 06/04/24 History Carboxymethylcellulose Sodium 1 drop BOTH EYES Q6H PRN 02/15/24 06/04/24 History [Refresh Tears] Gabapentin [Neurontin] 200 mg PO BID 02/15/24 06/04/24 History Lidocaine 5% Patch [Lidoderm 5% 1 patch TRANSDERM DAILY 02/15/24 06/04/24 History Patch] traZODone HCL [Desyrel] 50 mg PO HS 02/15/24 06/04/24 History Sennosides/Docusate Sodium [Senna 1 tab PO BID 05/02/24 06/04/24 History Plus 8.6-50 mg Tablet] Aspirin 81 mg PO DAILY #90 tab 05/04/24 06/04/24 Rx Melatonin 5 mg PO HS tab 05/04/24 06/04/24 Rx Allergies Allergy/AdvReac Type Severity Reaction Status Date / Time atorvastatin [From Lipitor] AdvReac Muscle pain Verified 06/04/24 19:57 Physical Exam Vitals: Vital Signs Temp Pulse Resp BP Pulse Ox 06/04/24 22:54 65 18 136/68 95 06/04/24 19:58 72 06/04/24 19:45 70 06/04/24 17:26 98.5 F 77 20 137/68 96 Intake and Output 06/04/24 06/04/24 06/05/24 14:59 22:59 06:59 Other: Weight 104.326 kg Results CBC & Chem 7: 06/04/24 18:00 06/04/24 18:00 Labs: Abnormal Lab Results - Last 24 Hours (Table) 06/04/24 06/04/24 06/04/24 Range/Units 18:00 18:00 18:00 RBC 3.76 L (4.30-5.90) m/uL Hgb 12.0 L (13.0-17.5) gm/dL Hct 37.1 L (39.0-53.0) % Lymphocytes # 0.6 L (1.0-4.8) k/uL APTT 21.2 L (22.0-30.0) sec Potassium 5.4 H (3.5-5.1) mmol/L Chloride 97 L (98-107) mmol/L Carbon Dioxide 36 H (22-30) mmol/L BUN 33 H (9-20) mg/dL Glucose 117 H (74-99) mg/dL Total Protein 6.0 L (6.3-8.2) g/dL
[2024-06-05] MEDS: SODIUM CHLORIDE 0.9% 1,000 ML IV SCH (06:32)
[2024-06-05] MEDS: SYMBICORT 160-4.5 MCG INHALER INHALATION SCH (07:44)
[2024-06-05] MEDS ORDERED: NON FORMULARY DRUG (Tiotropium 2.5 Mcg/Puff 10 PUFF Each) INHALATION SCH (08:00)
[2024-06-05] MEDS: ASPIRIN 81 MG PO SCH (08:50)
[2024-06-05] MEDS: AMIODARONE 200 MG TAB PO SCH (08:51)
[2024-06-05] MEDS: CHOLECALCIFEROL 25 MCG (1000 IU) TABLET PO SCH (08:51)
[2024-06-05] MEDS: DIGOXIN 125 MCG TAB PO SCH (08:51)
[2024-06-05] MEDS: LIDOCAINE 4% PATCH TOPICAL SCH (08:52)
[2024-06-05] MEDS ORDERED: POTASSIUM CHLORIDE ER 20 MEQ TAB.ER PO SCH (09:00)
[2024-06-05 10:11] LABS: Basophils # (A) 0.01 X 10*3/uL (0.00-0.10); Basophils % (A) 0.1 %; Eosinophils # (A) 0 X 10*3/uL (0.04-0.35); Eosinophils % (A) 0 %; HCT 39.5 % (39.6-50.0); HGB 12.5 g/dL (13.0-17.0); Lymphocytes # (A) 0.49 X 10*3/uL (0.90-5.00); MCH 31.5 pg (27.0-32.0); MCHC 31.6 g/dL (32.0-37.0); MCV 99.5 FL (80.0-97.0); Mean Platelet Volume 9.5 FL (9.5-12.2); Monocytes # (A) 0.09 X 10*3/uL (0.20-1.00); Monocytes % (A) 1.3 %; NRBC Per 100 WBC 0 X 10*3/uL (0.00-0.01); Neutrophils # (A) 6.33 X 10*3/uL (1.80-7.70); Neutrophils % (A) 90.7 %; Platelet Count 189 X 10*3/uL (140-440); RBC 3.97 X 10*6/uL (4.40-5.60); RDW 13.8 % (11.5-14.5); WBC 6.98 X 10*3/uL (4.50-10.00)
[2024-06-05 10:28] LABS: BUN/Creat Ratio 20.21 Ratio (12.00-20.00); Blood Urea Nitrogen 28.3 mg/dL (9.0-27.0); Calcium 9.1 mg/dL (8.7-10.3); Carbon Dioxide 36.6 mmol/L (21.6-31.8); Chloride 94 mmol/L (96-109); Glucose 154 mg/dL (70-110); Potassium 4.5 mmol/L (3.5-5.5); Sodium 139 mmol/L (135-145)
[2024-06-06 06:02] LABS: Basophils % (A) 0 %; Eosinophils # (A) 0.1 k/uL (0-0.7); Eosinophils % (A) 0 %; HCT 40.9 % (39.0-53.0); HGB 13.3 gm/dL (13.0-17.5); Lymphocytes # (A) 0.6 k/uL (1.0-4.8); Lymphocytes % (A) 3 %; MCHC 32.4 g/dL (31.0-37.0); MCV 98.8 fL (80.0-100.0); Mean Platelet Volume 8.2; Monocytes # (A) 0.6 k/uL (0-1.0); Monocytes % (A) 4 %; Neutrophils # (A) 15.9 k/uL (1.3-7.7); Neutrophils % (A) 92 %; Platelet Count 210 k/uL (150-450); RBC 4.14 m/uL (4.30-5.90); RDW 14.4 % (11.5-15.5); WBC 17.3 k/uL (3.8-10.6)
[2024-06-06 06:15] LABS: African American GFR (CKD) 63 (>60 ml/min/1.73 sqM); Anion Gap 10 mmol/L; Blood Urea Nitrogen 38 mg/dL (9-20); Carbon Dioxide 32 mmol/L (22-30); Chloride 93 mmol/L (98-107); Glucose 144 mg/dL (74-99); Non-African American GFR(CKD) 54 (>60 ml/min/1.73 sqM); Sodium 135 mmol/L (137-145)
[2024-06-06 06:25] LABS: Potassium 5.5 mmol/L (3.5-5.1)
--- NOTE | 2024-06-06 12:09 | P.PN ---
Subjective Progress Note Date: 06/06/24 Principal diagnosis: shayy is a 78-year-old male with history of COPD, chronic hypoxic respiratory failure on 2 L home oxygen, nicotine dependence, hypertension, dyslipidemia, HFr EF (EF 25 to 30%), paroxysmal atrial fibrillation, renal cell carcinoma status post right nephrectomy, CKD stage III, macular degeneration presenting with worsening shortness of breath. Patient states he follows with Dr. Ware and Dr. Rodgers. Patient states he has been having progressively worsening shortness of breath and now cannot walk 20 feet without becoming extremely winded. He endorses a chest heaviness, but denies any chest pain. He also reports that his has been sick with upper respiratory infection symptoms. Patient states generally his O2 sats are 93% but over the last few days he has gone as low as 77%. Patient states he uses his incentive spirometer at least a few times a day and is able to bring up some mucus which he says improves his respiratory status temporarily. Patient currently endorses smoking 2 to 3 cigarettes a day. Patient also endorsed some lightheadedness, which he thought was his A-fib and checked his blood pressure and found it to be 110/70. He denies any fever, cough, nausea, vomiting, diarrhea. It is of note that patient had recent admission last month for acute COPD exacerbation in setting of COVID infection. Imaging on admission revealed subtle scattered opacities. Patient seen and examined. Reports his breathing is better compared to however does not feel that his breathing is baseline. He still reports that when he gets up and goes to the bathroom he desaturates and reports that he was in the mid 80% range on ambulation today Objective - Vital Signs Vital signs: Vital Signs Temp 98.1 F 06/06/24 07:05 Pulse 88 06/06/24 11:04 Resp 16 06/06/24 07:05 BP 137/56 06/06/24 07:05 Pulse Ox 96 06/06/24 07:05 FiO2 Intake & Output 06/05/24 06/06/24 06/06/24 18:59 06:59 18:59 Intake Total 590 Output Total 1100 Balance -1100 590 Weight 104.326 kg Intake: Oral 590 Output: Urine 1100 Other: Voiding Method Toilet Toilet Urinal Urinal # Voids 2 - Exam General: nontoxic, no distress, appears at stated age, currently on 2 L nasal cannula pleasant Derm: warm, dry, intact Head: atraumatic, normocephalic, symmetric Eyes: anicteric sclera Mouth: no lip lesion, mucus membranes moist Cardiovascular: S1 S2 reg, no murmur Lungs: Clear to auscultation bilaterally on nasal cannula Abdominal: soft, non-tender to palpation, nondistended Extremities: 1+ nonpitting pedal edema Neuro: Alert, Oriented to person, time and place, moving all extremity spontaneously Psych: Calm and cooperative - Labs CBC & Chem 7: 06/06/24 05:13 06/06/24 05:13 Labs: Abnormal Lab Results - Last 24 Hours (Table) 06/06/24 06/06/24 Range/Units 05:13 05:13 WBC 17.3 H (3.8-10.6) k/uL RBC 4.14 L (4.30-5.90) m/uL Neutrophils # 15.9 H (1.3-7.7) k/uL Lymphocytes # 0.6 L (1.0-4.8) k/uL Sodium 135 L (137-145) mmol/L Potassium 5.5 H (3.5-5.1) mmol/L Chloride 93 L (98-107) mmol/L Carbon Dioxide 32 H (22-30) mmol/L BUN 38 H (9-20) mg/dL Creatinine 1.26 H (0.66-1.25) mg/dL Glucose 144 H (74-99) mg/dL Microbiology - Last 24 Hours (Table) 06/04/24 23:08 Blood Culture - Preliminary Blood Assessment and Plan Assessment: #) Acute on chronic hypoxic respiratory failure second acute COPD exacerbation. The patient had required 3 L of oxygen upon mission and is currently on 2 L nasal cannula currently. Continue DuoNebs 4 times daily continue IV methylprednisone 60 mg every 6 hours continue azithromycin for atypical coverage. Would anticipate discharge home in approximately 24 hours. #) Hyperkalemia, etiology appears rather unclear. The patient is not on any TAHIR inhibitor or ARB. He is on bumetanide 1 mg twice daily. I will check a repeat BMP today however will need to closely monitor. Hold further potassium supplementation. #) Paroxysmal atrial fibrillation continue Eliquis 5 mg twice daily for thromboembolic risk reduction. Continue amiodarone 20 mg daily for rhythm management #) CKD stage 3a with baseline cr near 1.3, renal adjust medications consider risk versus benefits of nephrotoxic agents #) HFrEF, levef of 25-35% chronic, not in acute exacerbation continue bumetanide 1 mg daily new home digoxin 125 mcg daily #) Peripheral neuropathy continue gabapentin 200 mg BID #) Depression/anxiety continue wellbutrin 150 mg BID #) Insomina continue trazodone 50 mg daily Dispo: med/surge
[2024-06-06 12:26] LABS: African American GFR (CKD) 62 (>60 ml/min/1.73 sqM); Anion Gap 5 mmol/L; Blood Urea Nitrogen 35 mg/dL (9-20); Calcium 9.1 mg/dL (8.4-10.2); Carbon Dioxide 39 mmol/L (22-30); Chloride 87 mmol/L (98-107); Glucose 78 mg/dL (74-99); Non-African American GFR(CKD) 53 (>60 ml/min/1.73 sqM); Sodium 131 mmol/L (137-145)
[2024-06-06 12:53] LABS: Glucose,Whole Blood 100 mg/dL (70-110)
[2024-06-06 17:07] LABS: Glucose,Whole Blood 153 mg/dL (70-110)
[2024-06-07 08:27] LABS: Basophils # (A) 0.03 X 10*3/uL (0.00-0.10); Basophils % (A) 0.2 %; Eosinophils # (A) 0 X 10*3/uL (0.04-0.35); Eosinophils % (A) 0 %; HCT 39.1 % (39.6-50.0); HGB 12.2 g/dL (13.0-17.0); Lymphocytes # (A) 0.47 X 10*3/uL (0.90-5.00); Lymphocytes % (A) 2.9 %; MCH 31.1 pg (27.0-32.0); MCHC 31.2 g/dL (32.0-37.0); MCV 99.7 FL (80.0-97.0); Mean Platelet Volume 10.1 FL (9.5-12.2); Monocytes # (A) 0.49 X 10*3/uL (0.20-1.00); Monocytes % (A) 3.1 %; NRBC Per 100 WBC 0 X 10*3/uL (0.00-0.01); Neutrophils # (A) 14.82 X 10*3/uL (1.80-7.70); Neutrophils % (A) 92.6 %; Platelet Count 198 X 10*3/uL (140-440); RBC 3.92 X 10*6/uL (4.40-5.60); RDW 14.4 % (11.5-14.5); WBC 16.01 X 10*3/uL (4.50-10.00)
[2024-06-07 09:06] LABS: Blood Urea Nitrogen 32.1 mg/dL (9.0-27.0); Calcium 8.9 mg/dL (8.7-10.3); Carbon Dioxide 33.9 mmol/L (21.6-31.8); Chloride 90 mmol/L (96-109); Glucose 138 mg/dL (70-110); Potassium 4.7 mmol/L (3.5-5.5); Sodium 135 mmol/L (135-145)
--- NOTE | 2024-06-07 15:10 | P.PN ---
Subjective Progress Note Date: 06/07/24 Hospital course: Patient is a very pleasant 78-year-old male with a past medical history of COPD with chronic hypoxic respiratory failure home oxygen dependent on 2 L follows with set up mechanic automatic line Dr. Ware, nicotine dependence, hypertension, hyperlipidemia, chronic systolic heart failure with EF of 25 to 30%, paroxysmal atrial fibrillation on anticoagulation with Eliquis, renal cell carcinoma status post right nephrectomy with chronic kidney disease stage IIIa, macular degeneration, and peripheral neuropathy. He presented to the hospital on 06/04/2024 with a [facility] complaint of shortness of breath worse with exertion. Upon arrival to our facility, patient underwent evaluation in the emergency department. Vital signs upon arrival show blood pressure 137/68, heart rate 77, respiratory rate 20, temp 98.5 F, and SpO2 of 96% on 3 L. EKG was completed showing normal sinus rhythm at 69 bpm with a right bundle branch block. Chest x-ray completed showing subtle scattered opacities. Physical exam: Patient seen and fully evaluated at bedside this morning. He reports feeling slightly better than he did when he arrived to the hospital but still nowhere near his baseline. Patient reports continued hypoxia and severe shortness of breath with minimal exertion. Patient reports he is not even able to ambulate to the restroom without having to stop to catch his breath. Order placed for ambulatory pulse ox and discussed with RN and LOAD BLOCKER. With minimal exertion patient does desaturate down to 85 to 87% on his baseline 2 L oxygen. Vital signs reviewed and stable. General: Nontoxic, no distress and appears stated age. Derm: Skin warm and dry, normal coloration for ethnicity. Head: Atraumatic, normocephalic and symmetric. Eyes: EOM's intact, no lid lag, and anicteric sclera Mouth: no lip lesions, mucus membranes moist Cardiovascular: regular rate and rhythm with normal S1S2, systolic murmur, positive posterior tibial pulses bilaterally, and cap refill < 2 seconds. Lungs: Respirations even, regular, and unlabored on liters O2 via nasal cannula. Lungs diminished with soft expiratory wheezes bilaterally. Patient with mild conversational dyspnea after approximately 5 words. Abdominal: soft, nontender to palpation, no guarding, no appreciable organomegaly Ext: ROM intact. No gross muscle atrophy, no edema, no contractures Neuro: Speech clear, face symmetrical and CN II-XII grossly intact with no noted focal neuro deficits Psych: Alert and oriented to person, place, time, and situation. Appropriate and pleasant affect. Assessment and Plan of Care: Acute COPD exacerbation Acute on chronic hypoxic respiratory failure -Consult to Pulmonology secondary to persistent shortness of breath and desaturations with exertion on oxygen -Oxygenation to be administered and titrated as needed to maintain SPO2 equal to or greater than 92% -Telemetry monitoring. -Monitor pulse-oximetry -Duonebs 4 times daily and as needed for SOB and/or wheezing -Incentive Spirometry -Steroids: Solu-Medrol 60 mg IVP every 6 hours -Continue Symbicort 160-4.5 mcg inhaler 2 puffs twice daily and Roflumilast 500 mcg daily. -Procalcitonin 0.08. Viral panel negative. Hyperkalemia, secondary to hemolyzed specimen.. Resolved without intervention. Paroxysmal atrial fibrillation continue Eliquis 5 mg twice daily for thromboembolic risk reduction. Continue amiodarone 20 mg daily and digoxin 125 mcg daily for rhythm management. CKD stage 3a with baseline cr near 1.3, renal adjust medications consider risk versus benefits of nephrotoxic agents. HFrEF, EF of 25-35% chronic, not in acute exacerbation. Continue bumetanide 1 mg daily. Peripheral neuropathy. Continue gabapentin 200 mg BID Depression with anxiety. Continue wellbutrin 150 mg BID. Insomina. Continue trazodone 50 mg daily Data and imaging reviewed: Morning labs reviewed. CBC showing slight improvement of leukocytosis with WBC count decreasing from 17.3 down to 16.01 and stable hemoglobin of 12.2. BMP showing hyperchloremia with chloride of 98, hypercarbia with bicarb of 33.9, and anion gap of 11.10. BUN 32.1, creatinine 1.5, GFR 47. Blood glucose 138. Vital signs reviewed. Blood pressure 135/71, heart rate 70, respiratory rate 16, temp 97.5 F, and SpO2 of 94% on 2 L and with minimal exertion patient desaturates down to 85 to 87% on 2 L. CODE STATUS: Full code DVT prophylaxis: Eliquis Anticipated discharge date: Pending clinical course Anticipated discharge place: Home Patient was seen independently by Nurse Pracitioner. This document was prepared using LocalView dictation software. Please allow for errors in radial saw operator, while rare they do occur. Padilla Pham NP rendered care for this patient independently, reviewed the f indings and plan as documented in the note above and agree with plan. I did not physically speak with or examine the patient on this date. Objective - Vital Signs Vital signs: Vital Signs Temp 97.5 F L 06/07/24 07:00 Pulse 80 06/07/24 09:40 Resp 16 06/07/24 07:00 BP 135/71 06/07/24 07:00 Pulse Ox 94 L 06/07/24 07:00 FiO2 Intake & Output 06/06/24 06/07/24 06/07/24 18:59 06:59 18:59 Intake Total 1770 480 590 Balance 1770 480 590 Intake: Oral 1770 480 590 Other: Voiding Method Toilet Toilet Toilet Urinal Urinal Urinal # Voids 7 1 - Labs CBC & Chem 7: 06/07/24 03:58 06/07/24 03:58 Labs: Abnormal Lab Results - Last 24 Hours (Table) 06/06/24 06/06/24 06/07/24 Range/Units 11:56 17:06 03:58 WBC 16.01 H (4.50-10.00) X 10*3/uL RBC 3.92 L (4.40-5.60) X 10*6/uL Hgb 12.2 L (13.0-17.0) g/dL Hct 39.1 L (39.6-50.0) % MCV 99.7 H (80.0-97.0) FL MCHC 31.2 L (32.0-37.0) g/dL Immature Gran # 0.20 H (0.00-0.04) X 10*3/uL Neutrophils # 14.82 H (1.80-7.70) X 10*3/uL Lymphocytes # 0.47 L (0.90-5.00) X 10*3/uL Eosinophils # 0 L (0.04-0.35) X 10*3/uL Sodium 131 L (137-145) mmol/L Chloride 87 L (98-107) mmol/L Carbon Dioxide 39 H (22-30) mmol/L BUN 35 H (9-20) mg/dL Creatinine 1.28 H (0.66-1.25) mg/dL Est GFR (CKD-EPI) (>=60) BUN/Creatinine Ratio (12.00-20.00) Ratio Glucose (70-110) mg/dL POC Glucose (mg/dL) 153 H (70-110) mg/dL 06/07/24 Range/Units 03:58 WBC (4.50-10.00) X 10*3/uL RBC (4.40-5.60) X 10*6/uL Hgb (13.0-17.0) g/dL Hct (39.6-50.0) % MCV (80.0-97.0) FL MCHC (32.0-37.0) g/dL Immature Gran # (0.00-0.04) X 10*3/uL Neutrophils # (1.80-7.70) X 10*3/uL Lymphocytes # (0.90-5.00) X 10*3/uL Eosinophils # (0.04-0.35) X 10*3/uL Sodium (137-145) mmol/L Chloride 90 L (98-107) mmol/L Carbon Dioxide 33.9 H (22-30) mmol/L BUN 32.1 H (9-20) mg/dL Creatinine (0.66-1.25) mg/dL Est GFR (CKD-EPI) 47 L (>=60) BUN/Creatinine Ratio 21.40 H (12.00-20.00) Ratio Glucose 138 H (70-110) mg/dL POC Glucose (mg/dL) (70-110) mg/dL Microbiology - Last 24 Hours (Table) 06/04/24 23:08 Blood Culture - Preliminary Blood
[2024-06-07] MEDS: guaiFENesin-DM 600/30MG 1 EACH TAB.ER.12H PO PRN (21:51)
--- NOTE | 2024-06-08 04:27 | P.CNPUL ---
History of Present Illness Consult date: 06/08/24 Requesting physician: Padilla Pham Reason for consult: COPD Chief complaint: Acute on top of chronic dyspnea History of present illness: Patient is 78-year-old male with past medical history significant for COPD, current ongoing tobacco dependence, chronic home oxygen on 4 L/min nasal cannula, atrial fibrillation, hyperlipidemia, hypertension, renal cancer with previous right nephrectomy. He follows in the pulmonary office with Dr. Ware. He has severe COPD, with a most recent FEV1 37% of predicted. Also, known to have obstructive sleep apnea using AVAPS machine at night. Patient presents to the ED back on 06/04/2024 with acute on top of chronic shortness of breath. Mostly worse on exertion. Denies any particular infectious symptoms. Denies sick contacts. Admission chest x-ray showing subtle scattered opacities, which appear chronic on review of previous imaging. The patient did have a recent hospitalization late April for acute COVID-19 infection and COPD exacerbation. Viral panel on this admission negative for influenza, RSV, COVID. Procalcitonin level low at 0.08. Preliminary blood a show no growth at 48 hours. Preliminary sputum culture showing normal respiratory esau. Most recent CBC from yesterday showing a WBC count up to 16, hemoglobin 12.2, platelets 198. BMP from yesterday: Sodium 135, potassium 4.7, chloride 90, serum bicarb 34, BUN 32, creatinine 1.5, glucose 138. Patient's leukocytosis likely reactive to steroids. Component of chronic metabolic alkalosis. Patient's COPD has been treated with a combination of DuoNebs [id number], Symbicort inhaler, and IV Solu-Medrol. Pulmonary consulted yesterday as the patient continues to have exertional dyspnea. Note that he is chronically oxygen and steroid dependent on 2 to 4 L/min nasal cannula. He believes his shortness of breath has worsened and is interfering with ADLs. He states he can no longer wash dishes without taking breaks. He also reports shortness of breath with short walks such as walking on the hallway or to the bathroom. He has recently seen Dr. Ware in the pulmonary office on 05/17/2024. He normally uses a combination of Wixela, Spiriva, and albuterol nebs while at home. Continues to smoke 2 to 3 cigarettes/day. Currently being evaluated on the medical floor. He is sitting in a bedside recliner. On 2 L/min nasal cannula. Not in any respiratory distress while at rest. Current most recent vital signs: Temperature 97.9 F, heart rate 70 bpm, blood pressure 113/68 mmHg, respiratory rate nontachypneic, SpO2 is reading 97% on 2 L/min nasal cannula. Review of Systems Constitutional: Reports daytime sleepiness, Reports fatigue, Denies chills, Denies fever, Denies weight gain, Denies weight loss Ears, nose, mouth and throat: Denies headache, Denies nasal congestion, Denies nasal discharge, Denies post-nasal drip, Denies sinus pain, Denies sinus pressure, Denies sore throat Cardiovascular: Reports dyspnea on exertion, Denies chest pain, Denies leg edema, Denies orthopnea, Denies palpitations, Denies paroxysmal nocturnal dyspnea, Denies syncope Respiratory: Reports as per HPI Gastrointestinal: Denies abdominal pain, Denies change in bowel habits, Denies constipation, Denies diarrhea, Denies loss of appetite, Denies nausea, Denies vomiting Genitourinary: Denies dysuria Musculoskeletal: Denies limitation of motion Integumentary: Denies rash Neurological: Denies seizures or syncopal events Psychiatric: Denies anxiety, Denies depression Past Medical History Past Medical History: Atrial Fibrillation, Cancer, COPD, Eye Disorder, Hearing Disorder / Deafness, Hyperlipidemia, Hypertension, Osteoarthritis (OA) Additional Past Medical History / Comment(s): Emphysema (takes inhalers and uses oxygen at home). Hx Kidney Cancer in 2006, R nephrectomy.q Left eye detached retina. Wet Macular Degeneration right eye. Hx Melanoma on back. Bilateral hearing aid use, legally blind. History of Any Multi-Drug Resistant Organisms: None Reported Past Surgical History: Back Surgery Additional Past Surgical History / Comment(s): Right kidney removed. Left eye surgery X3 for detacted retina. Bilateral cataract surgery. Mohs surgery thoracic spine for melanoma.plate in right arm, bilateral eye lids lifted Past Anesthesia/Blood Transfusion Reactions: Previous Problems w/ Anesthesia Additional Past Anesthesia/Blood Transfusion Reaction / Comment(s): States low heart rate, light-headed and low BP X1 with anesthesia. "Got broke vocal cord and could not talk for 2 months after anesthesia one time." Past Psychological History: Anxiety, Depression Smoking Status: Current some day smoker Past Alcohol Use History: Occasional Additional Past Alcohol Use History / Comment(s): States that he drinks Past Drug Use History: None Reported Additional Drug Use History / Comment(s): Quit smoking 12/27 - Past Family History Mother Family Medical History: Cancer Additional Family Medical History / Comment(s): Brain Cancer. Father Family Medical History: CVA/TIA Medications and Allergies Home Medications Medication Instructions Recorded Confirmed Type Vit C/E/Zn/Coppr/Lutein/Zeaxan 1 cap PO BID 08/03/17 06/04/24 History [Preservision Areds 2 Softgel] Apixaban [Eliquis] 5 mg PO BID 30 Days #60 tab 11/26/20 06/04/24 Rx Amiodarone [Cordarone] 200 mg PO DAILY 12/02/20 06/04/24 History Roflumilast [Daliresp] 500 mcg PO DAILY 01/17/21 06/04/24 History Potassium Chloride ER [K-Dur 20] 20 meq PO DAILY #30 tab 01/26/21 06/04/24 Rx Digoxin [Lanoxin] 125 mcg PO DAILY 11/15/21 06/04/24 History Albuterol Inhaler [Ventolin Hfa 2 puff INHALATION RT-Q6H PRN 04/26/23 06/04/24 History Inhaler] Cholecalciferol [Vitamin D3 (25 25 mcg PO DAILY 04/26/23 06/04/24 History Mcg = 1000 Iu)] Fluticasone Propion/Salmeterol 1 puff INHALATION RT-BID 04/26/23 06/04/24 History [Wixela 500-50 Inhub] Tiotropium 2.5 Mcg/Puff [Spiriva 2 puff INHALATION RT-DAILY 04/26/23 06/04/24 History Respimat 2.5 Mcg] buPROPion [Wellbutrin] 150 mg PO BID 04/26/23 06/04/24 History Albuterol Nebulized [Ventolin 2.5 mg INHALATION RT-Q4H 02/15/24 06/04/24 History Nebulized] Bumetanide [BUMEX] 1 mg PO BID 02/15/24 06/04/24 History Carboxymethylcellulose Sodium 1 drop BOTH EYES Q6H PRN 02/15/24 06/04/24 History [Refresh Tears] Gabapentin [Neurontin] 200 mg PO BID 02/15/24 06/04/24 History Lidocaine 5% Patch [Lidoderm 5% 1 patch TRANSDERM DAILY 02/15/24 06/04/24 History Patch] traZODone HCL [Desyrel] 50 mg PO HS 02/15/24 06/04/24 History Sennosides/Docusate Sodium [Senna 1 tab PO BID 05/02/24 06/04/24 History Plus 8.6-50 mg Tablet] Aspirin 81 mg PO DAILY #90 tab 05/04/24 06/04/24 Rx Melatonin 5 mg PO HS tab 05/04/24 06/04/24 Rx predniSONE See Taper PO DIRECTED 12 Days 06/08/24 Rx #30 tab Allergies Allergy/AdvReac Type Severity Reaction Status Date / Time atorvastatin [From Lipitor] AdvReac Muscle pain Verified 06/04/24 19:57 Physical Exam Vitals: Vital Signs Temp Pulse Pulse Pulse Resp BP BP 06/08/24 02:00 97.9 F 70 17 113/68 06/07/24 19:54 80 06/07/24 19:42 84 06/07/24 19:40 97.6 F 76 17 129/71 06/07/24 16:54 80 06/07/24 16:45 82 06/07/24 15:50 98.1 F 78 16 127/65 06/07/24 12:26 88 06/07/24 12:14 82 06/07/24 10:36 98 06/07/24 09:55 86 06/07/24 09:40 80 06/07/24 07:00 97.5 F L 70 16 135/71 06/07/24 03:44 97.8 F 70 18 130/66 Pulse Ox Pulse Ox 06/08/24 02:00 97 06/07/24 19:54 06/07/24 19:42 06/07/24 19:40 96 06/07/24 16:54 06/07/24 16:45 06/07/24 15:50 97 06/07/24 12:26 06/07/24 12:14 06/07/24 10:36 87 L 06/07/24 09:55 06/07/24 09:40 06/07/24 07:00 94 L 06/07/24 03:44 97 Intake and Output 06/07/24 06/07/24 06/08/24 14:59 22:59 06:59 Intake Total 1180 590 Balance 1180 590 Intake: Oral 1180 590 Other: Voiding Method Toilet Toilet Urinal Urinal # Voids 1 GENERAL EXAM: Alert, 78-year-old male, obese, sitting up in bedside recliner,, comfortable in no apparent distress. HEAD: Normocephalic and atraumatic EYES: Normal reaction of pupils, equal size. NOSE: Clear with pink turbinates. THROAT: No erythema or exudates. NECK: No masses, no JVD. CHEST: No chest wall deformity. LUNGS: Equal air entry with diminished lung sounds throughout with faint end expiratory wheezes. No crackles, rhonchi or focal dullness. On 2 L/min nasal cannula. No conversational dyspnea or accessory muscle use while at rest. CVS: S1 and S2 normal with no audible murmur, regular rhythm. No extra heart sounds ABDOMEN: No hepatosplenomegaly, active bowel sounds, no guarding or rigidity. SPINE: No scoliosis or deformity SKIN: No rashes CENTRAL NERVOUS SYSTEM: No focal deficits, tone is normal in all 4 extremities. EXTREMITIES: There is no peripheral edema, clubbing, or cyanosis. Peripheral pulses are intact. Results - Laboratory Findings CBC and BMP: 06/07/24 03:58 06/07/24 03:58 PT/INR, D-dimer PT 10.0 sec (10.0-12.5) 06/04/24 18:00 INR 0.9 (<1.2) 06/04/24 18:00 Abnormal lab findings: Abnormal Labs 06/04/24 06/04/24 06/04/24 18:00 18:00 18:00 WBC RBC 3.76 L Hgb 12.0 L Hct 37.1 L MCV MCHC Immature Gran # Neutrophils # Lymphocytes # 0.6 L Monocytes # Eosinophils # APTT 21.2 L Sodium Potassium 5.4 H Chloride 97 L Carbon Dioxide 36 H BUN 33 H Creatinine Est GFR (CKD-EPI) BUN/Creatinine Ratio Glucose 117 H POC Glucose (mg/dL) Total Protein 6.0 L 06/05/24 06/05/24 06/06/24 06:53 06:53 05:13 WBC 17.3 H RBC 3.97 L 4.14 L Hgb 12.5 L Hct 39.5 L MCV 99.5 H MCHC 31.6 L Immature Gran # 0.06 H Neutrophils # 15.9 H Lymphocytes # 0.49 L 0.6 L Monocytes # 0.09 L Eosinophils # 0 L APTT Sodium Potassium Chloride 94 L Carbon Dioxide 36.6 H BUN 28.3 H Creatinine Est GFR (CKD-EPI) 51 L BUN/Creatinine Ratio 20.21 H Glucose 154 H POC Glucose (mg/dL) Total Protein 06/06/24 06/06/24 06/06/24 05:13 11:56 17:06 WBC RBC Hgb Hct MCV MCHC Immature Gran # Neutrophils # Lymphocytes # Monocytes # Eosinophils # APTT Sodium 135 L 131 L Potassium 5.5 H Chloride 93 L 87 L Carbon Dioxide 32 H 39 H BUN 38 H 35 H Creatinine 1.26 H 1.28 H Est GFR (CKD-EPI) BUN/Creatinine Ratio Glucose 144 H POC Glucose (mg/dL) 153 H Total Protein 06/07/24 06/07/24 03:58 03:58 WBC 16.01 H RBC 3.92 L Hgb 12.2 L Hct 39.1 L MCV 99.7 H MCHC 31.2 L Immature Gran # 0.20 H Neutrophils # 14.82 H Lymphocytes # 0.47 L Monocytes # Eosinophils # 0 L APTT Sodium Potassium Chloride 90 L Carbon Dioxide 33.9 H BUN 32.1 H Creatinine Est GFR (CKD-EPI) 47 L BUN/Creatinine Ratio 21.40 H Glucose 138 H POC Glucose (mg/dL) Total Protein - Diagnostic Findings Chest x-ray: image reviewed Assessment and Plan Assessment: Acute on top of chronic dyspnea Acute COPD exacerbation Acute leukocytosis, likely reactive steroids Severe oxygen and steroid dependent chronic obstructive pulmonary disease, most recent FEV1 37% of predicted Chronic hypoxemic and hypercapnic respiratory, normally on 2-4 L/min nasal cannula 29/11 Chronic ongoing tobacco dependence and secondhand smoke exposure Obstructive sleep apnea, with home CPAP Recent acute COVID-19 infection Obesity, with a BMI of 33 kg/m Paroxysmal atrial fibrillation, currently in normal sinus rhythm, anticoagulated on Eliquis Hypertension History of renal cancer status post right nephrectomy Plan: Patient's medications, labs, chest x-ray reviewed Continue supplemental O2, currently on 2L/min nasal cannula. Chest x-ray findings, felt to be chronic Procalcitonin level low at 0.08 Negative for influenza, RSV, COVID Continue combination of bronchodilators, Symbicort inhaler, and IV Solu-Medrol. Smoking cessation counseling performed Nicotine patch refused No need for home O2 reassessment, as the patient already has supplemental oxygen available at home Reportedly his SpO2 drops down the high 80s with ambulation but recovers at rest. Currently SpO2 is reading 97%. Symptoms likely secondary to his severe COPD/emphysema. Follows with Dr. Ware in the pulmonary office on an outpatient basis I have personally seen and examined the patient, performed the documentation and the assessment and plan as written. Number of minutes spent on the visit:20 Joint evaluation done along with the nurse practitioner. Agree with above- mentioned plan. The patient will be discharged to be followed up by Dr. Ware on outpatient basis. Case was reviewed. Time with Patient: Greater than 30
[2024-06-08 07:43] VITALS: BP 121/65; RESP 16; TEMP 97.8
[2024-06-08 08:24] VITALS: PULSE 84
--- NOTE | 2024-06-08 17:12 | P.DS ---
Providers Date of admission: 06/04/24 19:33 Expected date of discharge: 06/08/24 Attending physician: Anjana Kumar MD Consults: 06/07/24 11:09 Consult Physician Routine Consulting Provider: Chacho James Consult Reason/Comments: COPD exac, initial plan for for d/c however pt desat on O2 w/ ambulation Do you want consulting provider notified?: Yes Primary care physician: [facility] Course: Discharge Diagnosis: Acute COPD exacerbation. Patient underwent overnight hospitalization receiving continuous [id number] scheduled nebulizer treatments along with IV steroids. He was evaluated by pulmonology stating symptoms likely secondary to severe COPD/emphysema, reporting no need for home oxygen reassessment as patient already has supplemental oxygen at home and although patient desaturates down in the high 80s with ambulation he recovers at rest. Patient to follow-up outpatient with Dr. Ware in pulmonary office in 1 week. Patient medically optimized at this time. He is being discharged home on prednisone taper and instructed to continue DuoNebs 4 times daily for the next week in addition pt to continue Symbicort 160-4.5 mcg inhaler 2 puffs twice daily and Roflumilast 500 mcg daily. Patient to follow-up outpatient with PCP in 1 to 2 days and with enterprise project manager in 1 week. Acute on chronic hypoxic and hypercarbic respiratory failure Leukocytosis, reactive after IV steroids. Hyperkalemia, secondary to hemolyzed specimen.. Resolved without intervention. Paroxysmal atrial fibrillation continue Eliquis 5 mg twice daily for thromboembolic risk reduction. Continue amiodarone 20 mg daily and digoxin 125 mcg daily for rhythm management. CKD stage 3a with baseline cr near 1.3, renal adjust medications consider risk versus benefits of nephrotoxic agents. HFrEF, EF of 25-35% chronic, not in acute exacerbation. Continue bumetanide 1 mg daily. Peripheral neuropathy. Continue gabapentin 200 mg BID Depression with anxiety. Continue wellbutrin 150 mg BID. Insomina. Continue trazodone 50 mg daily Hospital Course: Patient is a very pleasant 78-year-old male with a past medical history of COPD with chronic hypoxic respiratory failure home oxygen dependent on 2 L follows with enterprise project manager Dr. Ware, nicotine dependence, hypertension, hyperlipidemia, chronic systolic heart failure with EF of 25 to 30%, paroxysmal atrial fibrillation on anticoagulation with Eliquis, renal cell carcinoma status post right nephrectomy with chronic kidney disease stage IIIa, macular degeneration, and peripheral neuropathy. He presented to the hospital on 06/04/2024 with a chief complaint of shortness of breath worse with exertion. Upon arrival to our facility, patient underwent evaluation in the emergency department. Vital signs upon arrival show blood pressure 137/68, heart rate 77, respiratory rate 20, temp 98.5 F, and SpO2 of 96% on 3 L. EKG was completed showing normal sinus rhythm at 69 bpm with a right bundle branch block. Chest x-ray completed showing subtle scattered opacities. Labs completed and reviewed. CBC showing normocytic anemia with hemoglobin of 12.0 otherwise normal findings. Coagulation profile showing a low PTT of 21.2 otherwise normal findings. BMP showing hyperkalemia with potassium of 5.4, chloride of 97, bicarb of 36, and anion gap of 6 with BUN of 33, creatinine of 1.24, GFR 56. Liver profile unremarkable. Troponin negative at less than 0.012 and proBNP 315. Patient admitted under our services with consultation to pulmonology. Procalcitonin 0.08. Viral panel negative. Patient underwent overnight hospitalization receiving continuous gkcds-sms-rgeli scheduled nebulizer treatments along with IV steroids. He was evaluated by pulmonology stating symptoms likely secondary to severe COPD/emphysema, reporting no need for home oxygen reassessment as patient already has supplemental oxygen at home and although patient desaturates down in the high 80s with ambulation he recovers at rest. Patient to follow-up outpatient with Dr. Ware in pulmonary office in 1 week. Patient medically optimized at this time. He is being discharged home on prednisone taper and instructed to continue DuoNebs 4 times daily for the next week in addition pt to continue Symbicort 160-4.5 mcg inhaler 2 puffs twice daily and Roflumilast 500 mcg daily. Patient to follow-up outpatient with PCP in 1 to 2 days and with enterprise project manager in 1 week. Patient discharged home with [facility] care. Physical exam: Vital signs reviewed and stable. General: Nontoxic, no distress and appears stated age. Derm: Skin warm and dry, normal coloration for ethnicity. Head: Atraumatic, normocephalic and symmetric. Eyes: EOM's intact, no lid lag, and anicteric sclera Mouth: no lip lesions, mucus membranes moist Cardiovascular: regular rate and rhythm with normal S1S2, systolic murmur, positive posterior tibial pulses bilaterally, and cap refill < 2 seconds. Lungs: Respirations even, regular, and unlabored on liters O2 via nasal cannula. Lungs diminished with soft expiratory wheezes bilaterally. Patient with mild conversational dyspnea after approximately 5 words. Abdominal: soft, nontender to palpation, no guarding, no appreciable organomegaly Ext: ROM intact. No gross muscle atrophy, no edema, no contractures Neuro: Speech clear, face symmetrical and CN II-XII grossly intact with no noted focal neuro deficits Psych: Alert and oriented to person, place, time, and situation. Appropriate and pleasant affect. A total of 34 minutes of time were spent preparing this complex discharge summary. Pt was discharged on 06/08/2024 at 9:50 AM. Patient was seen independently by Nurse Practitioner. This document was prepared using [employer] dictation software. Please allow for errors in sales service assistant while rare they do occur. Padilla Pham NP rendered care for this patient independently, reviewed the findings and plan as documented in the note above. I did not physically speak with or examine the patient on this date. Patient Condition at Discharge: Stable Plan - Discharge Summary New Discharge Prescriptions: New predniSONE See Taper PO DIRECTED 12 Days #30 tab Continue Vit C/E/Zn/Coppr/Lutein/Zeaxan [Preservision Areds 2 Softgel] 1 cap PO BID Apixaban [Eliquis] 5 mg PO BID 30 Days #60 tab buPROPion [Wellbutrin] 150 mg PO BID Albuterol Inhaler [Ventolin Hfa Inhaler] 2 puff INHALATION RT-Q6H PRN PRN Reason: Shortness Of Breath Gabapentin [Neurontin] 200 mg PO BID Albuterol Nebulized [Ventolin Nebulized] 2.5 mg INHALATION RT-Q4H Bumetanide [BUMEX] 1 mg PO BID Sennosides/Docusate Sodium [Senna Plus 8.6-50 mg Tablet] 1 tab PO BID Amiodarone [Cordarone] 200 mg PO DAILY Roflumilast [Daliresp] 500 mcg PO DAILY Potassium Chloride ER [K-Dur 20] 20 meq PO DAILY #30 tab Digoxin [Lanoxin] 125 mcg PO DAILY Fluticasone Propion/Salmeterol [Wixela 500-50 Inhub] 1 puff INHALATION RT-BID Cholecalciferol [Vitamin D3 (25 Mcg = 1000 Iu)] 25 mcg PO DAILY Tiotropium 2.5 Mcg/Puff [Spiriva Respimat 2.5 Mcg] 2 puff INHALATION RT-DAILY traZODone HCL [Desyrel] 50 mg PO HS Lidocaine 5% Patch [Lidoderm 5% Patch] 1 patch TRANSDERM DAILY Carboxymethylcellulose Sodium [Refresh Tears] 1 drop BOTH EYES Q6H PRN PRN Reason: Dry Eye(S) Melatonin 5 mg PO HS tab Aspirin 81 mg PO DAILY #90 tab Discharge Medication List Vit C/E/Zn/Coppr/Lutein/Zeaxan [Preservision Areds 2 Softgel] 1 cap PO BID 08/03/17 [History] Apixaban [Eliquis] 5 mg PO BID 30 Days #60 tab 11/26/20 [Rx] Amiodarone [Cordarone] 200 mg PO DAILY 12/02/20 [History] Roflumilast [Daliresp] 500 mcg PO DAILY 01/17/21 [History] Potassium Chloride ER [K-Dur 20] 20 meq PO DAILY #30 tab 01/26/21 [Rx] Digoxin [Lanoxin] 125 mcg PO DAILY 11/15/21 [History] Albuterol Inhaler [Ventolin Hfa Inhaler] 2 puff INHALATION RT-Q6H PRN 04/26/23 [History] Cholecalciferol [Vitamin D3 (25 Mcg = 1000 Iu)] 25 mcg PO DAILY 04/26/23 [History] Fluticasone Propion/Salmeterol [Wixela 500-50 Inhub] 1 puff INHALATION RT-BID 04/26/23 [History] Tiotropium 2.5 Mcg/Puff [Spiriva Respimat 2.5 Mcg] 2 puff INHALATION RT-DAILY 04/26/23 [History] buPROPion [Wellbutrin] 150 mg PO BID 04/26/23 [History] Albuterol Nebulized [Ventolin Nebulized] 2.5 mg INHALATION RT-Q4H 02/15/24 [History] Bumetanide [BUMEX] 1 mg PO BID 02/15/24 [History] Carboxymethylcellulose Sodium [Refresh Tears] 1 drop BOTH EYES Q6H PRN 02/15/24 [History] Gabapentin [Neurontin] 200 mg PO BID 02/15/24 [History] Lidocaine 5% Patch [Lidoderm 5% Patch] 1 patch TRANSDERM DAILY 02/15/24 [History] traZODone HCL [Desyrel] 50 mg PO HS 02/15/24 [History] Sennosides/Docusate Sodium [Senna Plus 8.6-50 mg Tablet] 1 tab PO BID 05/02/24 [History] Aspirin 81 mg PO DAILY #90 tab 05/04/24 [Rx] Melatonin 5 mg PO HS tab 05/04/24 [Rx] predniSONE See Taper PO DIRECTED 12 Days #30 tab 06/08/24 [Rx] Follow up Appointment(s)/Referral(s): Vickie Haro PAC [REFERRING] - 1-2 days [facility] [NON-STAFF] - As Needed Chris Ware DO [Doctor of Osteopathic Medicine] - 07/16/24 9:00 am [facility] [NON-STAFF] - 1 Week Patient Instructions/Handouts: COPD (Chronic Obstructive Pulmonary Disease) (DC) Activity/Diet/Wound Care/Special Instructions: Activity: As tolerated. Take breaks as needed. Diet: Heart healthy and carb consistent diet. Avoid salts, or foods with hidden salts such as canned or boxed foods and frozen dinners. Extra salt makes your heart work harder and traps the fluid in your body for longer. Special Instructions: Take all of your medications as directed and remember to keep all of your doctor's appointments and follow-up as needed. Thank you for allowing us to participate in your care, it was truly a pleasure having you for our patient!!! . Discharge Disposition: HOME WITH HOME HEALTH SERVICES
== END 2024-06-08 11:41 | disposition home health service (06) | DRG 190 ==
LOC: EC 16:58 → 6NMEDSUR 19:32 → OBSVTOIN 19:33 → 6NMEDSUR 20:42
PROVIDERS: ADMIT Internal Medicine; ATTEND Internal Medicine
DX: J43.9 Emphysema, unspecified (principal); J96.21 Acute and chronic respiratory failure with hypoxia; J96.22 Acute and chronic respiratory failure with hypercapnia; E87.3 Alkalosis; I48.0 Paroxysmal atrial fibrillation; G62.9 Polyneuropathy, unspecified; D64.9 Anemia, unspecified; I13.0 Hypertensive heart and chronic kidney disease with heart failure and stage 1 through stage 4 chronic kidney disease, or unspecified chronic kidney disease; E66.9 Obesity, unspecified; F32.A Depression, unspecified; N18.31 Chronic kidney disease, stage 3a; I50.22 Chronic systolic (congestive) heart failure; Z11.52 Encounter for screening for COVID-19; Z68.33 Body mass index [BMI] 33.0-33.9, adult; I45.10 Unspecified right bundle-branch block; H91.90 Unspecified hearing loss, unspecified ear; H54.8 Legal blindness, as defined in USA; M19.90 Unspecified osteoarthritis, unspecified site; G47.33 Obstructive sleep apnea (adult) (pediatric); F41.9 Anxiety disorder, unspecified; F17.210 Nicotine dependence, cigarettes, uncomplicated; E87.5 Hyperkalemia; D72.829 Elevated white blood cell count, unspecified; E78.5 Hyperlipidemia, unspecified; Z79.01 Long term (current) use of anticoagulants; Z79.51 Long term (current) use of inhaled steroids; Z79.52 Long term (current) use of systemic steroids; Z79.82 Long term (current) use of aspirin; Z79.899 Other long term (current) drug therapy; Z85.528 Personal history of other malignant neoplasm of kidney; Z85.820 Personal history of malignant melanoma of skin; Z86.16 Personal history of COVID-19; Z90.5 Acquired absence of kidney; Z80.8 Family history of malignant neoplasm of other organs or systems; Z97.4 Presence of external hearing-aid; Z99.81 Dependence on supplemental oxygen; Z98.42 Cataract extraction status, left eye; Z98.41 Cataract extraction status, right eye; Z71.6 Tobacco abuse counseling
CPT/HCPCS: 36415; 71046; 80048; 80053; 80162; 83605; 83735; 83880; 84145; 84484; 85025; 85610; 85730; 87040; 87070; 87205; 87636; 93005; 94640; 94760; 96365; 96366; 96375; 96376; 99285

== ENCOUNTER 2024-06-11 21:31 | Emergency (ER) | payer OTHER, MEDICARE ==
[2024-06-11 21:36] VITALS: TEMP 97.8
--- NOTE | 2024-06-11 21:50 | ED ---
Recheck HPI - General Chief Complaint: Recheck/Abnormal Lab/Rx Stated Complaint: Low Blood Pressure Time Seen by Provider: 06/11/24 21:49 Source: patient, RN notes reviewed, old records reviewed Mode of arrival: wheelchair Limitations: no limitations - History of Present Illness Initial Comments: 78-year-old male presented the ER for evaluation of low blood pressure. Patient reports he was recently admitted to the hospital for a COPD exacerbation. He was discharged on 06-08-2024. Patient reports his home visiting nurse visited today and found his blood pressure to be 101 systolic over 90s. Patient states this is extremely abnormal for him. He states throughout the day he took checked his blood pressure approximately 4 times with systolics in the 90s which prompted his ER visit. Patient states he does not take antihypertensive medications. Patient does report today he has felt unwell with a headache and nausea. Patient typically wears 2 L nasal cannula oxygen but denies any abnormal shortness of breath, chest pain, abdominal pain, vomiting, constipation/diarrhea, urinary complaints, fevers, chills or peripheral edema. - Related Data Home Medications Medication Instructions Recorded Confirmed Vit C/E/Zn/Coppr/Lutein/Zeaxan 1 cap PO BID 08/03/17 06/04/24 [Preservision Areds 2 Softgel] Amiodarone [Cordarone] 200 mg PO DAILY 12/02/20 06/04/24 Roflumilast [Daliresp] 500 mcg PO DAILY 01/17/21 06/04/24 Digoxin [Lanoxin] 125 mcg PO DAILY 11/15/21 06/04/24 Albuterol Inhaler [Ventolin Hfa 2 puff INHALATION RT-Q6H PRN 04/26/23 06/04/24 Inhaler] Cholecalciferol [Vitamin D3 (25 25 mcg PO DAILY 04/26/23 06/04/24 Mcg = 1000 Iu)] Fluticasone Propion/Salmeterol 1 puff INHALATION RT-BID 04/26/23 06/04/24 [Wixela 500-50 Inhub] Tiotropium 2.5 Mcg/Puff [Spiriva 2 puff INHALATION RT-DAILY 04/26/23 06/04/24 Respimat 2.5 Mcg] buPROPion [Wellbutrin] 150 mg PO BID 04/26/23 06/04/24 Albuterol Nebulized [Ventolin 2.5 mg INHALATION RT-Q4H 02/15/24 06/04/24 Nebulized] Bumetanide [BUMEX] 1 mg PO BID 02/15/24 06/04/24 Carboxymethylcellulose Sodium 1 drop BOTH EYES Q6H PRN 02/15/24 06/04/24 [Refresh Tears] Gabapentin [Neurontin] 200 mg PO BID 02/15/24 06/04/24 Lidocaine 5% Patch [Lidoderm 5% 1 patch TRANSDERM DAILY 02/15/24 06/04/24 Patch] traZODone HCL [Desyrel] 50 mg PO HS 02/15/24 06/04/24 Sennosides/Docusate Sodium [Senna 1 tab PO BID 05/02/24 06/04/24 Plus 8.6-50 mg Tablet] Previous Rx's Medication Instructions Recorded Apixaban [Eliquis] 5 mg PO BID 30 Days #60 tab 11/26/20 Potassium Chloride ER [K-Dur 20] 20 meq PO DAILY #30 tab 01/26/21 Aspirin 81 mg PO DAILY #90 tab 05/04/24 Melatonin 5 mg PO HS tab 05/04/24 predniSONE See Taper PO DIRECTED 12 Days 06/08/24 #30 tab Allergies Allergy/AdvReac Type Severity Reaction Status Date / Time atorvastatin [From Lipitor] AdvReac Muscle pain Verified 06/11/24 21:36 Review of Systems ROS Statement: Those systems with pertinent positive or pertinent negative responses have been documented in the HPI. ROS Other: All systems not noted in ROS Statement are negative. Past Medical History Past Medical History: Atrial Fibrillation, Cancer, COPD, Eye Disorder, Hearing Disorder / Deafness, Hyperlipidemia, Hypertension, Osteoarthritis (OA) Additional Past Medical History / Comment(s): Emphysema (takes inhalers and uses oxygen at home). Hx Kidney Cancer in 2007, R nephrectomy.q Left eye detached retina. Wet Macular Degeneration right eye. Hx Melanoma on back. Bilateral hearing aid use, legally blind. History of Any Multi-Drug Resistant Organisms: None Reported Past Surgical History: Back Surgery Additional Past Surgical History / Comment(s): Right kidney removed. Left eye surgery X3 for detacted retina. Bilateral cataract surgery. Mohs surgery thoracic spine for melanoma.plate in right arm, bilateral eye lids lifted Past Anesthesia/Blood Transfusion Reactions: Previous Problems w/ Anesthesia Additional Past Anesthesia/Blood Transfusion Reaction / Comment(s): States low heart rate, light-headed and low BP X1 with anesthesia. "Got broke vocal cord and could not talk for 2 months after anesthesia one time." Past Psychological History: Anxiety, Depression Smoking Status: Current some day smoker Past Alcohol Use History: Occasional Past Drug Use History: None Reported - Past Family History Mother Family Medical History: Cancer Additional Family Medical History / Comment(s): Brain Cancer. Father Family Medical History: CVA/TIA General Exam Limitations: no limitations General appearance: alert, in no apparent distress ENT exam: Present: normal exam, normal oropharynx, mucous membranes moist Respiratory exam: Present: decreased breath sounds (All lung farah) Cardiovascular Exam: Present: regular rate, normal rhythm, normal heart sounds. Absent: systolic murmur, diastolic murmur, rubs, gallop, clicks Extremities exam: Present: normal inspection, full ROM, normal capillary refill. Absent: tenderness, pedal edema, joint swelling, calf tenderness Neurological exam: Present: alert, oriented X3, CN II-XII intact Skin exam: Present: warm, dry, intact, normal color. Absent: rash Course Vital Signs 06/11/24 06/11/24 21:32 23:24 Temperature 97.8 F Pulse Rate 108 H 95 Respiratory 24 18 Rate Blood Pressure 117/58 115/57 O2 Sat by Pulse 93 L 98 Oximetry Medical Decision Making - Medical Decision Making Was pt. sent in by a medical professional or institution (, PA, HEALTH COACH, urgent care, hospital, or [facility]...) When possible be specific @ -[No] Did you speak to anyone other than the patient for history (EMS, parent, family, police, friend...)? What history was obtained from this source @ -[No] Did you review nursing and triage notes (agree or disagree)? Why? @ -[I reviewed and agree with nursing and triage notes] Were old charts reviewed (outside hosp., previous admission, EMS record, old EKG, old radiological studies, urgent care reports/EKG's, [facility] records)? Report findings @ -Yes, I reviewed previous medical records.] Differential Diagnosis (chest pain, altered mental status, abdominal pain women, abdominal pain men, vaginal bleeding, weakness, fever, dyspnea, syncope, headache, dizziness, GI bleed, back pain, seizure, CVA, palpatations, mental health, musculoskeletal)? @ -Hypotension, hypertension, syncope, electrolyte abnormality... This list is not meant to be all-inclusive EKG interpreted by me (3pts min.). @ -[As above] X-rays interpreted by me (1pt min.). @ -CXR interpreted by me negative for focal consolidations. Compared to prior. CT interpreted by me (1pt min.). @ -[None done] U/S interpreted by me (1pt. min.). @ -[None done] What testing was considered but not performed or refused? (CT, X-rays, U/S, labs)? Why? @ -[None] What meds were considered but not given or refused? Why? @ -[None] Did you discuss the management of the patient with other professionals (professionals i.e. , PA, HEALTH COACH, lab, RT, psych nurse, social services specialist, regional extension service specialist, teacher, mortgage loan officer, employment evaluator/case manager)? Give summary @ -[No] Was smoking cessation discussed for >3mins.? @ -I discussed smoking cessation for greater than 3 minutes. The risk of smoking were discussed with the patient including but not limited to risks of cancer, stroke, coronary artery disease and COPD. Also discussed with patient were multiple methods of quitting smoking. Lastly we discussed the financial cost of smoking. Was critical care preformed (if so, how long)? @ -[No] Were there social determinants of health that impacted care today? How? (Homelessness, low income, unemployed, alcoholism, drug addiction, trans portation, low edu. Level, literacy, decrease access to med. care, mcc, rehab)? @ -[No] Was there de-escalation of care discussed even if they declined (Discuss DNR or withdrawal of care, Hospice)? DNR status @ -[No] What co-morbidities impacted this encounter? (DM, HTN, Smoking, COPD, CAD, Cance r, CVA, ARF, Chemo, Hep., AIDS, mental health diagnosis, sleep apnea, morbid obesity)? @ -COPD Was patient admitted / discharged? Hospital course, mention meds given and route, prescriptions, significant lab abnormalities, going to OR and other pertinent info. @ -Discharge. 78-year-old male presented to the ER for evaluation of low blood pressure. Upon rooming, history and physical exam completed. Blood pressure 117/58 with tachycardia 108 which resolved upon examination to 80s. Vitals otherwise stable. Patient oxygen saturation 96% on room 2 L nasal cannula oxygen which is patient's baseline. Laboratory studies and chest x-ray will be obtained. CBC remarkable for leukocytosis of 15.9 with a left shift which is likely reactive from IV steroid use due to recent admission for COPD exacerbation. CO2 43 patient is a chronic retainer due to COPD. Laboratory studies otherwise at patient's baseline. Viral swabs negative. Chest x-ray comparable to prior. Patient given IV fluids in the ER. Upon reevaluation, patient resting comfortably exam no signs of acute distress. Patient reporting improvement of symptoms. Blood pressure remained stable throughout ER stay. Patient stable for discharge at this time. Strict return parameters discussed. Patient discharged in stable condition with follow-up to PCP. Patient verbally expressed understanding and agreement with care plan. Case discussed with ED attending, Dr. Carmen. Undiagnosed new problem with uncertain prognosis? @ -[No] Drug Therapy requiring intensive monitoring for toxicity (Heparin, Nitro, Insulin, Cardizem)? @ -[No] Were any procedures done? @ -[No] Diagnosis/symptom? @ -Blood pressure check/COPD Acute, or Chronic, or Acute on Chronic? @ -Acute Uncomplicated (without systemic symptoms) or Complicated (systemic symptoms)? @ -Uncomplicated Side effects of treatment? @ -[No] Exacerbation, Progression, or Severe Exacerbation? @ -[No] Poses a threat to life or bodily function? How? (Chest pain, USA, HI, pneumonia, PE, COPD, DKA, ARF, appy, cholecystitis, CVA, Diverticulitis, Homicidal, Suicidal, threat to staff... and all critical care pts) @ -[No] - Lab Data Result diagrams: 06/11/24 21:58 06/11/24 21:58 Lab Results 06/11/24 06/11/24 06/11/24 Range/Units 21:58 21:58 21:58 WBC 15.9 H (3.8-10.6) k/uL RBC 4.02 L (4.30-5.90) m/uL Hgb 12.9 L (13.0-17.5) gm/dL Hct 39.9 (39.0-53.0) % MCV 99.2 (80.0-100.0) fL MCH 32.0 (25.0-35.0) pg MCHC 32.3 (31.0-37.0) g/dL RDW 13.9 (11.5-15.5) % Plt Count 204 (150-450) k/uL MPV 7.2 Neutrophils % 90 % Lymphocytes % 4 % Monocytes % 5 % Eosinophils % 0 % Basophils % 0 % Neutrophils # 14.3 H (1.3-7.7) k/uL Lymphocytes # 0.6 L (1.0-4.8) k/uL Monocytes # 0.8 (0-1.0) k/uL Eosinophils # 0.0 (0-0.7) k/uL Basophils # 0.0 (0-0.2) k/uL Sodium 138 (137-145) mmol/L Potassium 4.6 (3.5-5.1) mmol/L Chloride 90 L (98-107) mmol/L Carbon Dioxide 43 H* (22-30) mmol/L Anion Gap 5 mmol/L BUN 54 H (9-20) mg/dL Creatinine 1.47 H (0.66-1.25) mg/dL Est GFR (CKD-EPI)AfAm 52 (>60 ml/min/1.73 sqM) Est GFR (CKD-EPI)NonAf 45 (>60 ml/min/1.73 sqM) Glucose 160 H (74-99) mg/dL Calcium 8.9 (8.4-10.2) mg/dL Total Bilirubin 0.3 (0.2-1.3) mg/dL AST 22 (17-59) U/L ALT 26 (4-49) U/L Alkaline Phosphatase 80 (38-126) U/L Total Protein 5.6 L (6.3-8.2) g/dL Albumin 3.3 L (3.5-5.0) g/dL Influenza Type A (PCR) Not Detected (Not Detectd) Influenza Type B (PCR) Not Detected (Not Detectd) RSV (PCR) Not Detected (Not Detectd) SARS-CoV-2 (PCR) Not Detected (Not Detectd) - EKG Data -: EKG Interpreted by Me EKG Comments: EKG taken at 21: 58 showing a sinus rhythm with frequent PACs. Right bundle branch block. No ST segment deviations. No T wave inversions. Normal axis. Ventricular rate 87, WI interval 135, QRS duration 148, QT/QTc 361/405. Disposition Clinical Impression: COPD (chronic obstructive pulmonary disease), Blood pressure check Disposition: HOME SELF-CARE Condition: Stable Additional Instructions: Follow-up with PCP in the next 2 to 3 days. Return to the ER for new or worsening concerns. Is patient prescribed a controlled substance at d/c from ED?: No Referrals: Sinan Kurtz DO [Primary Care Provider] - 1-2 days Time of Disposition: 23:30
[2024-06-11 22:27] LABS: Basophils % (A) 0 %; Eosinophils % (A) 0 %; HCT 39.9 % (39.0-53.0); HGB 12.9 gm/dL (13.0-17.5); Lymphocytes # (A) 0.6 k/uL (1.0-4.8); Lymphocytes % (A) 4 %; MCHC 32.3 g/dL (31.0-37.0); MCV 99.2 fL (80.0-100.0); Mean Platelet Volume 7.2; Monocytes # (A) 0.8 k/uL (0-1.0); Monocytes % (A) 5 %; Neutrophils # (A) 14.3 k/uL (1.3-7.7); Neutrophils % (A) 90 %; Platelet Count 204 k/uL (150-450); RBC 4.02 m/uL (4.30-5.90); RDW 13.9 % (11.5-15.5); WBC 15.9 k/uL (3.8-10.6)
[2024-06-11 22:48] LABS: ALT 26 U/L (4-49); AST 22 U/L (17-59); African American GFR (CKD) 52 (>60 ml/min/1.73 sqM); Albumin 3.3 g/dL (3.5-5.0); Alkaline Phosphatase 80 U/L (38-126); Blood Urea Nitrogen 54 mg/dL (9-20); Calcium 8.9 mg/dL (8.4-10.2); Chloride 90 mmol/L (98-107); Glucose 160 mg/dL (74-99); Non-African American GFR(CKD) 45 (>60 ml/min/1.73 sqM); Potassium 4.6 mmol/L (3.5-5.1); Sodium 138 mmol/L (137-145); Total Bilirubin 0.3 mg/dL (0.2-1.3); Total Protein 5.6 g/dL (6.3-8.2)
[2024-06-11 22:55] LABS: Anion Gap 5 mmol/L
[2024-06-11 23:00] LABS: Carbon Dioxide 43 mmol/L (22-30)
[2024-06-11] MEDS: SODIUM CHLORIDE 0.9% 500 ML 500 ML IV STA (23:00)
[2024-06-11 23:02] LABS: Influenza A Not Detected (Not Detectd); Influenza B Not Detected (Not Detectd); RSV Not Detected (Not Detectd)
[2024-06-11 23:27] VITALS: BP 115/57; PULSE 95; RESP 18
--- NOTE | 2024-06-11 23:56 | XR ---
EXAM: XR Chest, 2 Views CLINICAL HISTORY: ITS.REASON XR Reason: cough TECHNIQUE: Frontal and lateral views of the chest. COMPARISON: No relevant prior studies available. FINDINGS: Lungs: Unremarkable. No consolidation. Pleural space: Small bilateral pleural effusions. No pneumothorax. Heart: Unremarkable. No cardiomegaly. Mediastinum: Unremarkable. Normal mediastinal contour. Bones/joints: Unremarkable. No acute fracture. IMPRESSION: Small bilateral pleural effusions.
== END 2024-06-12 00:02 | disposition home or self-care (01) ==
LOC: EC 21:31
DX: J44.9 Chronic obstructive pulmonary disease, unspecified (principal); J90 Pleural effusion, not elsewhere classified; F17.200 Nicotine dependence, unspecified, uncomplicated; Z01.30 Encounter for examination of blood pressure without abnormal findings; Z88.8 Allergy status to other drugs, medicaments and biological substances
CPT/HCPCS: 36415; 71046; 80053; 85025; 87636; 93005; 96360; 99285

== ENCOUNTER 2024-06-29 09:09 | Inpatient (IN) | payer OTHER, MEDICARE ==
[2024-06-29 09:33] LABS: Basophils % (A) 0 %; Eosinophils # (A) 0.1 k/uL (0-0.7); Eosinophils % (A) 1 %; HCT 39.2 % (39.0-53.0); HGB 12.3 gm/dL (13.0-17.5); Hypochromasia Moderate; Lymphocytes # (A) 0.4 k/uL (1.0-4.8); Lymphocytes % (A) 4 %; MCH 31.8 pg (25.0-35.0); MCHC 31.3 g/dL (31.0-37.0); MCV 101.7 fL (80.0-100.0); Macrocytosis Slight; Mean Platelet Volume 6.8; Monocytes # (A) 0.9 k/uL (0-1.0); Monocytes % (A) 9 %; Neutrophils # (A) 8.9 k/uL (1.3-7.7); Neutrophils % (A) 84 %; Platelet Count 153 k/uL (150-450); RBC 3.86 m/uL (4.30-5.90); RDW 14.3 % (11.5-15.5); WBC 10.7 k/uL (3.8-10.6)
[2024-06-29] MEDS: IPRATROPIUM-ALBUTEROL 3 ML NEB INHALATION STA (09:37)
[2024-06-29 09:50] LABS: INR 0.9 (<1.2); Partial Thromboplastin Time 21.9 sec (22.0-30.0); Prothrombin Time 10.3 sec (10.0-12.5)
[2024-06-29 10:09] LABS: NT-Pro-B-Type Natriuretic Pept 717 pg/mL
[2024-06-29 10:10] LABS: Influenza A Detected (Not Detectd); Influenza B Not Detected (Not Detectd); RSV Not Detected (Not Detectd)
--- NOTE | 2024-06-29 10:21 | XR ---
EXAMINATION TYPE: XR chest 2V DATE OF EXAM: 06/29/2024 10:18 AM COMPARISON: 06/23/2014 CLINICAL INDICATION: Male, 78 years old with history of difficulty breathing, TECHNIQUE: XR chest 2V view(s) obtained. FINDINGS: The heart size is normal. The pulmonary vasculature is normal. The lungs are clear. Hyperinflation and flattened diaphragms is compatible with COPD. IMPRESSION: 1. No acute pulmonary process. 2. COPD [facility], , 06/29/2024 10:19 AM
[2024-06-29 10:28] LABS: ALT 20 U/L (4-49); AST 23 U/L (17-59); African American GFR (CKD) 51 (>60 ml/min/1.73 sqM); Albumin 3.6 g/dL (3.5-5.0); Alkaline Phosphatase 65 U/L (38-126); Anion Gap 8 mmol/L; Blood Urea Nitrogen 33 mg/dL (9-20); Calcium 8.8 mg/dL (8.4-10.2); Chloride 89 mmol/L (98-107); Glucose 109 mg/dL (74-99); Magnesium 1.8 mg/dL (1.6-2.3); Non-African American GFR(CKD) 44 (>60 ml/min/1.73 sqM); Sodium 137 mmol/L (137-145); Total Bilirubin 0.8 mg/dL (0.2-1.3); Total Protein 6.1 g/dL (6.3-8.2)
[2024-06-29 10:39] LABS: Carbon Dioxide 40 mmol/L (22-30)
[2024-06-29] MEDS: ACETAMINOPHEN TAB 500 MG TAB PO STA (10:43)
[2024-06-29] MEDS ORDERED: SODIUM CHLORIDE 0.9% 1,000 ML IV SCH (11:45)
--- NOTE | 2024-06-29 11:57 | ED ---
SOB HPI - General Chief Complaint: Shortness of Breath Stated Complaint: MANN Time Seen by Provider: 06/29/24 09:15 Source: patient Mode of arrival: EMS Limitations: no limitations - History of Present Illness Initial Comments: 78-year-old male with past medical history of A-fib, COPD, CHF on 2 L home O2 who presents to the emergency department with shortness of breath. Patient was just recently hospitalized and discharged on the after he was treated for a COPD exacerbation. Patient is supposed to wear 2 L of oxygen at home all the t meme. Patient states that he became more short of breath over the past day. He has been increasing his oxygen to 4 L. When he called EMS today they found him on the 4 L and he was saturating 78%. He was given an albuterol treatment on the way to the hospital. Patient admits to a nonproductive cough and bodyaches. He is found to be febrile upon hospital arrival. Does admit to some lower extremity swelling. He is not currently on any steroids. Does take Bumex daily. Denies chest pain. No other alleviating, precipitating or modifying factors - Related Data Home Medications Medication Instructions Recorded Confirmed Vit C/E/Zn/Coppr/Lutein/Zeaxan 1 cap PO BID 08/03/17 06/29/24 [Preservision Areds 2 Softgel] Amiodarone [Cordarone] 200 mg PO DAILY 12/02/20 06/29/24 Roflumilast [Daliresp] 500 mcg PO DAILY 01/17/21 06/29/24 Digoxin [Lanoxin] 125 mcg PO DAILY 11/15/21 06/29/24 Albuterol Inhaler [Ventolin Hfa 2 puff INHALATION RT-Q6H PRN 04/26/23 06/29/24 Inhaler] Cholecalciferol [Vitamin D3 (25 25 mcg PO DAILY 04/26/23 06/29/24 Mcg = 1000 Iu)] Fluticasone Propion/Salmeterol 1 puff INHALATION RT-BID 04/26/23 06/29/24 [Wixela 500-50 Inhub] Tiotropium 2.5 Mcg/Puff [Spiriva 2 puff INHALATION RT-DAILY 04/26/23 06/29/24 Respimat 2.5 Mcg] buPROPion [Wellbutrin] 150 mg PO BID 04/26/23 06/29/24 Albuterol Nebulized [Ventolin 2.5 mg INHALATION RT-Q4H 02/15/24 06/29/24 Nebulized] Bumetanide [BUMEX] 1 mg PO BID 02/15/24 06/29/24 Carboxymethylcellulose Sodium 1 drop BOTH EYES Q6H PRN 02/15/24 06/29/24 [Refresh Tears] Gabapentin [Neurontin] 200 mg PO BID 02/15/24 06/29/24 Lidocaine 5% Patch [Lidoderm 5% 1 patch TRANSDERM DAILY 02/15/24 06/29/24 Patch] traZODone HCL [Desyrel] 50 mg PO HS 02/15/24 06/29/24 Sennosides/Docusate Sodium [Senna 1 tab PO BID 05/02/24 06/29/24 Plus 8.6-50 mg Tablet] Previous Rx's Medication Instructions Recorded Apixaban [Eliquis] 5 mg PO BID 30 Days #60 tab 11/26/20 Potassium Chloride ER [K-Dur 20] 20 meq PO DAILY #30 tab 01/26/21 Aspirin 81 mg PO DAILY #90 tab 05/04/24 Melatonin 5 mg PO HS tab 05/04/24 Allergies Allergy/AdvReac Type Severity Reaction Status Date / Time atorvastatin [From Lipitor] AdvReac Muscle pain Verified 06/29/24 10:08 Review of Systems ROS Statement: Those systems with pertinent positive or pertinent negative responses have been documented in the HPI. ROS Other: All systems not noted in ROS Statement are negative. Past Medical History Past Medical History: Atrial Fibrillation, Cancer, Heart Failure, COPD, Eye Disorder, Hearing Disorder / Deafness, Hyperlipidemia, Hypertension, Osteoarthritis (OA) Additional Past Medical History / Comment(s): Emphysema (takes inhalers and uses oxygen at home). Hx Kidney Cancer in 2007, R nephrectomy.q Left eye detached retina. Wet Macular Degeneration right eye. Hx Melanoma on back. Bilateral hearing aid use, legally blind. History of Any Multi-Drug Resistant Organisms: None Reported Past Surgical History: Back Surgery Additional Past Surgical History / Comment(s): Right kidney removed. Left eye surgery X3 for detacted retina. Bilateral cataract surgery. surgery thoracic spine for melanoma.plate in right arm, bilateral eye lids lifted Past Anesthesia/Blood Transfusion Reactions: Previous Problems w/ Anesthesia Additional Past Anesthesia/Blood Transfusion Reaction / Comment(s): States low heart rate, light-headed and low BP X1 with anesthesia. "Got broke vocal cord and could not talk for 2 months after anesthesia one time." Past Psychological History: Anxiety, Depression Smoking Status: Former smoker Past Alcohol Use History: Occasional Past Drug Use History: None Reported - Past Family History Mother Family Medical History: Cancer Additional Family Medical History / Comment(s): Brain Cancer. Father Family Medical History: CVA/TIA General Exam Limitations: no limitations General appearance: alert, in distress Head exam: Present: atraumatic, normocephalic, normal inspection Eye exam: Present: normal appearance, PERRL, EOMI. Absent: scleral icterus, conjunctival injection, periorbital swelling ENT exam: Present: normal exam, mucous membranes moist Neck exam: Present: normal inspection. Absent: tenderness, meningismus, lymphadenopathy Respiratory exam: Present: respiratory distress, wheezes, rales, accessory muscle use Cardiovascular Exam: Present: normal rhythm, bradycardia GI/Abdominal exam: Present: soft, normal bowel sounds. Absent: distended, t enderness, guarding, rebound, rigid Neurological exam: Present: alert, oriented X3, CN II-XII intact Course Vital Signs 06/29/24 06/29/24 06/29/24 09:10 09:20 09:37 Temperature 100.9 F H Pulse Rate 51 L 110 H Respiratory 26 H 26 H Rate Blood Pressure 92/65 O2 Sat by Pulse 92 L Oximetry Fraction of Inspired Oxygen (FIO2) 06/29/24 06/29/24 06/29/24 09:47 10:01 10:41 Temperature Pulse Rate 108 H 109 H 112 H Respiratory 18 20 Rate Blood Pressure 132/68 103/59 O2 Sat by Pulse 96 95 Oximetry Fraction of Inspired Oxygen (FIO2) 06/29/24 06/29/24 06/29/24 12:07 12:45 12:46 Temperature 99.6 F Pulse Rate 96 Respiratory 20 Rate Blood Pressure 84/38 O2 Sat by Pulse 96 Oximetry Fraction of 35 35 Inspired Oxygen (FIO2) 06/29/24 06/29/24 06/29/24 13:20 13:25 14:35 Temperature Pulse Rate 82 75 Respiratory 26 H 20 Rate Blood Pressure 94/56 97/52 104/52 O2 Sat by Pulse 94 L 94 L Oximetry Fraction of Inspired Oxygen (FIO2) 06/29/24 06/29/24 06/29/24 15:37 15:38 15:42 Temperature 97.8 F Pulse Rate 80 80 Respiratory 24 Rate Blood Pressure 98/53 O2 Sat by Pulse 92 L Oximetry Fraction of 35 Inspired Oxygen (FIO2) 06/29/24 06/29/24 15:52 16:56 Temperature 97.5 F L Pulse Rate 76 84 Respiratory 20 Rate Blood Pressure 83/41 O2 Sat by Pulse 93 L Oximetry Fraction of Inspired Oxygen (FIO2) Procedures - ABG Interpretation Ph: 7.36 PCO2: 76 PO2: 81 Bicarbonate: 43 Medical Decision Making - Medical Decision Making Was pt. sent in by a medical professional or institution (, PA, [facility] [employer], urgent care, hospital, or [facility]...) When possible be specific @ -No Did you speak to anyone other than the patient for history (EMS, parent, family, police, friend...)? What history was obtained from this source @ -Spoke with EMS for history Did you review nursing and triage notes (agree or disagree)? Why? @ -I reviewed and agree with nursing and triage notes Were old charts reviewed (outside hosp., previous admission, EMS record, old EKG, old radiological studies, urgent care reports/EKG's, [facility] records)? Report findings @ -I reviewed discharge summary from the Differential Diagnosis (chest pain, altered mental status, abdominal pain women, abdominal pain men, vaginal bleeding, weakness, fever, dyspnea, syncope, headache, dizziness, GI bleed, back pain, seizure, CVA, palpatations, mental health, musculoskeletal)? @ -Differential Dyspnea: Coronary syndrome, arrhythmia, tamponade, asthma, COPD, pulmonary embolism, pneumonia, pneumothorax, pulmonary effusion, anaphylaxis, diabetic ketoacidosis, flailed chest, pulmonary contusion, diaphragmatic rupture, anemia, neuromuscular, this is not meant to be an all-inclusive list. EKG interpreted by me (3pts min.). @ -Yes and demonstrates significant baseline artifact. Sinus tachycardia with a rate of 109. AR interval 192. QRS 138. QTc of 376. Right bundle branch block. No acute ST segment elevations X-rays interpreted by me (1pt min.). @ -Yes which demonstrates COPD changes CT interpreted by me (1pt min.). @ -None done U/S interpreted by me (1pt. min.). @ -None done What testing was considered but not performed or refused? (CT, X-rays, U/S, labs)? Why? @ -None What meds were considered but not given or refused? Why? @ -None Did you discuss the management of the patient with other professionals (professionals i.e. , PA, [facility] [employer], lab, RT, psych nurse, social media intern, cosmetologist apprentice, te acher, commanding officer garage, family independence case manager)? Give summary @ -Spoke with [facility] Was smoking cessation discussed for >3mins.? @ -No Was critical care preformed (if so, how long)? @ -Yes, 35 minutes for management of BiPAP dependent respiratory failure with hypoxia and hypercarbia Were there social determinants of health that impacted care today? How? (Homelessness, low income, unemployed, alcoholism, drug addiction, transportation, low edu. Level, literacy, decrease access to med. care, detention, rehab)? @ -No Was there de-escalation of care discussed even if they declined (Discuss DNR or withdrawal of care, Hospice)? DNR status @ -No What co-morbidities impacted this encounter? (DM, HTN, Smoking, COPD, CAD, Cancer, CVA, ARF, Chemo, Hep., AIDS, mental health diagnosis, sleep apnea, morbi d obesity)? @ -COPD and CHF Was patient admitted / discharged? Hospital course, mention meds given and route, prescriptions, significant lab abnormalities, going to OR and other pertinent info. @ -Upon arrival patient seen and evaluated in bed 6. Thorough history and physical exam was performed. IV was established. Laboratory studies are conducted. Chest x-ray was performed. Patient was given a breathing treatment and 125 Solu-Medrol. He will be placed on scheduled breathing treatments and steroids. I did initiate him on Tamiflu. Patient was given Tylenol for fever control. Spoke with [facility] for admission. Patient was agreeable to admission. I did obtain a gas on the patient which shows that he does have an elevated CO2. Patient placed on BiPAP Undiagnosed new problem with uncertain prognosis? @ -No Drug Therapy requiring intensive monitoring for toxicity (Heparin, Nitro, Insulin, Cardizem)? @ -No Were any procedures done? @ -No Diagnosis/symptom? @ -Acute BiPAP dependent respiratory failure, acute exacerbation of COPD, influenza A Acute, or Chronic, or Acute on Chronic? @ -Acute Uncomplicated (without systemic symptoms) or Complicated (systemic symptoms)? @ -Complicated Side effects of treatment? @ -No Exacerbation, Progression, or Severe Exacerbation? @ -Yes Poses a threat to life or bodily function? How? (Chest pain, [place], [place], pneumonia, PE, COPD, DKA, ARF, appy, cholecystitis, CVA, Diverticulitis, Homicidal, Suicidal, threat to staff respiratory and all critical care pts) @ -Yes as patient does have to go on BiPAP for his increased work of breathing - Lab Data Result diagrams: 07/03/24 06:04 07/03/24 06:04 Lab Results 06/29/24 06/29/24 06/29/24 Range/Units 09:24 09:24 09:24 WBC 10.7 H (3.8-10.6) k/uL RBC 3.86 L (4.30-5.90) m/uL Hgb 12.3 L (13.0-17.5) gm/dL Hct 39.2 (39.0-53.0) % MCV 101.7 H (80.0-100.0) fL MCH 31.8 (25.0-35.0) pg MCHC 31.3 (31.0-37.0) g/dL RDW 14.3 (11.5-15.5) % Plt Count 153 (150-450) k/uL MPV 6.8 Neutrophils % 84 % Lymphocytes % 4 % Monocytes % 9 % Eosinophils % 1 % Basophils % 0 % Neutrophils # 8.9 H (1.3-7.7) k/uL Lymphocytes # 0.4 L (1.0-4.8) k/uL Monocytes # 0.9 (0-1.0) k/uL Eosinophils # 0.1 (0-0.7) k/uL Basophils # 0.0 (0-0.2) k/uL Hypochromasia Moderate Macrocytosis Slight PT 10.3 (10.0-12.5) sec INR 0.9 (<1.2) APTT 21.9 L (22.0-30.0) sec Sodium 137 (137-145) mmol/L Potassium 4.0 (3.5-5.1) mmol/L Chloride 89 L (98-107) mmol/L Carbon Dioxide 40 H (22-30) mmol/L Anion Gap 8 mmol/L BUN 33 H (9-20) mg/dL Creatinine 1.51 H (0.66-1.25) mg/dL Est GFR (CKD-EPI)AfAm 51 (>60 ml/min/1.73 sqM) Est GFR (CKD-EPI)NonAf 44 (>60 ml/min/1.73 sqM) Glucose 109 H (74-99) mg/dL Plasma Lactic Acid Fabiano (0.7-2.0) mmol/L Calcium 8.8 (8.4-10.2) mg/dL Magnesium 1.8 (1.6-2.3) mg/dL Total Bilirubin 0.8 (0.2-1.3) mg/dL AST 23 (17-59) U/L ALT 20 (4-49) U/L Alkaline Phosphatase 65 (38-126) U/L Troponin I (0.000-0.034) ng/mL NT-Pro-B Natriuret Pep 717 pg/mL Total Protein 6.1 L (6.3-8.2) g/dL Albumin 3.6 (3.5-5.0) g/dL Influenza Type A (PCR) (Not Detectd) Influenza Type B (PCR) (Not Detectd) RSV (PCR) (Not Detectd) SARS-CoV-2 (PCR) (Not Detectd) 06/29/24 06/29/24 06/29/24 Range/Units 09:24 09:24 09:24 WBC (3.8-10.6) k/uL RBC (4.30-5.90) m/uL Hgb (13.0-17.5) gm/dL Hct (39.0-53.0) % MCV (80.0-100.0) fL MCH (25.0-35.0) pg MCHC (31.0-37.0) g/dL RDW (11.5-15.5) % Plt Count (150-450) k/uL MPV Neutrophils % % Lymphocytes % % Monocytes % % Eosinophils % % Basophils % % Neutrophils # (1.3-7.7) k/uL Lymphocytes # (1.0-4.8) k/uL Monocytes # (0-1.0) k/uL Eosinophils # (0-0.7) k/uL Basophils # (0-0.2) k/uL Hypochromasia Macrocytosis PT (10.0-12.5) sec INR (<1.2) APTT (22.0-30.0) sec Sodium (137-145) mmol/L Potassium (3.5-5.1) mmol/L Chloride (98-107) mmol/L Carbon Dioxide (22-30) mmol/L Anion Gap mmol/L BUN (9-20) mg/dL Creatinine (0.66-1.25) mg/dL Est GFR (CKD-EPI)AfAm (>60 ml/min/1.73 sqM) Est GFR (CKD-EPI)NonAf (>60 ml/min/1.73 sqM) Glucose (74-99) mg/dL Plasma Lactic Acid Fabiano 1.1 (0.7-2.0) mmol/L Calcium (8.4-10.2) mg/dL Magnesium (1.6-2.3) mg/dL Total Bilirubin (0.2-1.3) mg/dL AST (17-59) U/L ALT (4-49) U/L Alkaline Phosphatase (38-126) U/L Troponin I 0.057 H* (0.000-0.034) ng/mL NT-Pro-B Natriuret Pep pg/mL Total Protein (6.3-8.2) g/dL Albumin (3.5-5.0) g/dL Influenza Type A (PCR) Detected A (Not Detectd) Influenza Type B (PCR) Not Detected (Not Detectd) RSV (PCR) Not Detected (Not Detectd) SARS-CoV-2 (PCR) Not Detected (Not Detectd) Disposition Clinical Impression: Chronic respiratory failure with hypoxia, COPD with acute exacerbation, Influenza A, Hypercarbia, BiPAP (biphasic positive airway pressure) dependence Disposition: ADMITTED IP TO THIS HOSP Condition: Serious Is patient prescribed a controlled substance at d/c from ED?: No Time of Disposition: 12:02 Decision to Admit Reason: Admit from EC Decision Date: 06/29/24 Decision Time: 12:02
[2024-06-29] MEDS ORDERED: NALOXONE 0.4 MG/ML 1 ML VIAL IV PRN (12:04)
[2024-06-29] MEDS: ASPIRIN 325 MG TAB PO STA (12:17)
[2024-06-29] MEDS: methylPREDNISolone SOD SUCCI 125 MG/2 ML VIAL IV STA (12:17)
[2024-06-29] MEDS: SODIUM CHLORIDE 0.9% 500 ML 500 ML IV ONE ×2 (12:19→17:03)
[2024-06-29] MEDS: OSELTAMIVIR 75 MG CAP PO SCH (12:19)
[2024-06-29 12:28] LABS: ABG Base Excess 15.5 mmol/L; ABG Oxygen Saturation 95.9 % (94-97); ABG PH 7.37 (7.35-7.45); ABG PO2 82 mmHg (83-108); ABG TCO2 46 mmol/L (19-24); Allen Test Performed? Yes
[2024-06-29] MEDS: IPRATROPIUM-ALBUTEROL 3 ML NEB INHALATION SCH (15:37)
[2024-06-29] MEDS ORDERED: ALBUTEROL NEBULIZED 2.5 MG/3 ML INHALATION SCH (16:00)
--- NOTE | 2024-06-29 16:26 | P.HPIM ---
History of Present Illness H&P Date: 06/29/24 History of Presenting Illness: Patient is a very pleasant 78-year-old male with a past medical history of COPD with chronic hypoxic respiratory failure home oxygen dependent on 2 L follows with airplane technician Dr. Ware, nicotine dependence, hypertension, hyperlipidemia, chronic heart failure with EF of 55 to 60%, paroxysmal atrial fibrillation on anticoagulation with Eliquis, renal cell carcinoma status post right nephrectomy with chronic kidney disease stage IIIa, macular degeneration, and peripheral neuropathy. He presented to the hospital with a chief complaint of shortness of breath. Patient recently underwent hospitalization for COPD exacerbation 06/23- 06/25 for COPD exacerbation. Patient reports going home, completing his steroids and feeling well up until about 2 days ago when he again began to develop worsening shortness of breath accompanied by a nonproductive cough. He reports that he was increasing his oxygen to 4 L but this did not even help and his shortness of breath progressively worsened accompanied by generalized bodyaches, diaphoresis and fatigue so he called EMS for transport to the hospital. He denies known fever but states he also did not check his temp at home, denies headache, lightheadedness, dizziness, chest pain, palpitations, abdominal pain, nausea, vomiting, diarrhea, or experiencing any numbness/tingling/ weakness/swelling in his extremities. Upon arrival to our facility, patient underwent evaluation in the emergency department. Vital signs upon arrival show blood pressure 92/65, heart rate 51, respiratory rate 26, temp 100.9 F, and SpO2 of 92% on 4 L. EKG was completed showing sinus tachycardia at 109 bpm with moderate interference. Chest x-ray completed showing findings of COPD with hyperinflation and flattening of the diaphragm but negative for acute cardiopulmonary process. Labs completed and reviewed. CBC showing leukocytosis with WBC count of 10.7, hemoglobin of 12.3, platelet count of 153 with mild macrocytosis with elevated MCV of 101.7. Coagulation profile showing a low PTT of 21.9. BMP showing metabolic alkalosis with chloride of 89, bicarb of 40, and anion gap of 8 and renal function consistent with known stage III CKD with BUN of 33, creatinine of 1.51, GFR 44. Blood glucose was 109. Lactic acid was 1.1. Calcium 8.8. Magnesium 1.8. Liver profile unremarkable. Troponin was elevated at 0.057 and proBNP 717. Patient initially requiring 4 L O2 in the emergency department however there were concerns for increasing lethargy with increased work of breathing and patient was placed on continuous BiPAP. Patient's mentation significantly improved shortly after being placed on BiPAP. Currently respirations even, regular, and unlabored on BiPAP and patient able to speak in full sentences at this time. Patient admitted under our services with consultation to cardiology for elevated troponins and pulmonology for acute on chronic respiratory failure. Review of systems: Pertinent positives and negatives as discussed in HPI, a complete review of systems was performed and all other systems are negative. Physical exam: Vital signs reviewed and stable. Currently blood pressure 94/56, heart rate 82, respiratory rate 26, temp 99.6 F, and SpO2 of 94% on BiPAP. General: Nontoxic and appears stated age. Derm: Skin warm and dry, normal coloration for ethnicity. Head: Atraumatic, normocephalic and symmetric. Eyes: EOM's intact, no lid lag, and anicteric sclera Mouth: no lip lesions, mucus membranes moist Cardiovascular: regular rate and rhythm with normal S1S2, systolic murmur, positive posterior tibial pulses bilaterally, and cap refill < 2 seconds. Lungs: Respirations even, regular, and unlabored on BiPAP. Lungs diminished with soft expiratory wheezes and diffuse rhonchi bilaterally. Patient speaking in full sentences on BiPAP. Abdominal: Obese abdomen, soft, nontender to palpation, no guarding, no appreciable organomegaly Ext: ROM intact. No gross muscle atrophy, scant lower extremity edema, no contractures Neuro: Speech clear, face symmetrical and CN II-XII grossly intact with no noted focal neuro deficits Psych: Alert and oriented to person, place, time, and situation. Appropriate and pleasant affect. Assessment and Plan of Care: Acute on chronic hypoxic and hypercarbic respiratory failure Acute COPD exacerbation Influenza A infection Sepsis on arrival, secondary to influenza infection -Consult to Pulmonology, appreciate recommendations -Continue BiPAP with IPAP of 10, EPAP 5, FiO2 30% and to be titrated accordingly to keep SpO2 equal to or greater than 90%. -Once weaned from BiPAP, patient to be placed on supplemental oxygen to maintain SPO2 equal to or greater than 90% -Telemetry monitoring. -Monitor pulse-oximetry -Duonebs scheduled 4 times daily and as needed for SOB and/or wheezing -Incentive Spirometry -Steroids: Solu-Medrol 40 mg IVP every 8 hours -Tamiflu, renal dosing at 30 mg twice daily x 5 days. Patient also started on doxycycline 100 mg twice daily pending procalcitonin results. -Continue Symbicort 160-4.5 mcg inhaler 2 puffs twice daily and Roflumilast 500 mcg daily. Elevated troponins, likely secondary to hypoxia and sepsis Paroxysmal atrial fibrillation Chronic diastolic heart failure with last known EF of 55 to 60% -Initial troponin 0.057 with repeat troponin of 0.086. Will continue to trend -Cardiology consulted, appreciate recommendations -Telemetry monitoring -Aspirin 325 mg p.o. x 1 dose followed by 81 mg daily, amiodarone 200 mg daily, Eliquis 5 mg twice daily, Bumex 1 mg twice daily, digoxin 125 mcg daily, and statin held at this time secondary to patient's reported intolerance of statins. CKD stage IIIa status post right nephrectomy. Baseline creatinine 1.3, renal adjust medications consider risk versus benefits of nephrotoxic agents. Peripheral neuropathy. Continue gabapentin 200 mg BID Depression with anxiety. Continue wellbutrin 150 mg BID. Insomina. Continue trazodone 50 mg daily Data and imaging reviewed: As stated above in HPI CODE STATUS: Full code DVT prophylaxis: Eliquis Anticipated discharge date: Pending clinical course Anticipated discharge place: Pending clinical course Patient was seen independently by Nurse Practitioner. This document was prepared using [employer] dictation software. Please allow for errors in biodiesel production associate while rare they do occur. Padilla Pham NP rendered care for this patient independently, reviewed the findings and plan as documented in the note above and agree with plan. I did not physically speak with or examine the patient on this date. Past Medical History Past Medical History: Atrial Fibrillation, Cancer, Heart Failure, COPD, Eye Disorder, Hearing Disorder / Deafness, Hyperlipidemia, Hypertension, Osteoarthritis (OA) Additional Past Medical History / Comment(s): Emphysema (takes inhalers and uses oxygen at home). Hx Kidney Cancer in 2007, R nephrectomy.q Left eye detached retina. Wet Macular Degeneration right eye. Hx Melanoma on back. Bilateral hearing aid use, legally blind. History of Any Multi-Drug Resistant Organisms: None Reported Past Surgical History: Back Surgery Additional Past Surgical History / Comment(s): Right kidney removed. Left eye surgery X3 for detacted retina. Bilateral cataract surgery. surgery thoracic spine for melanoma.plate in right arm, bilateral eye lids lifted Past Anesthesia/Blood Transfusion Reactions: Previous Problems w/ Anesthesia Additional Past Anesthesia/Blood Transfusion Reaction / Comment(s): States low heart rate, light-headed and low BP X1 with anesthesia. "Got broke vocal cord and could not talk for 2 months after anesthesia one time." Past Psychological History: Anxiety, Depression Smoking Status: Former smoker Past Alcohol Use History: Occasional Past Drug Use History: None Reported - Past Family History Mother Family Medical History: Cancer Additional Family Medical History / Comment(s): Brain Cancer. Father Family Medical History: CVA/TIA Medications and Allergies Home Medications Medication Instructions Recorded Confirmed Type Vit C/E/Zn/Coppr/Lutein/Zeaxan 1 cap PO BID 08/03/17 06/29/24 History [Preservision Areds 2 Softgel] Apixaban [Eliquis] 5 mg PO BID 30 Days #60 tab 11/26/20 06/29/24 Rx Amiodarone [Cordarone] 200 mg PO DAILY 12/02/20 06/29/24 History Roflumilast [Daliresp] 500 mcg PO DAILY 01/17/21 06/29/24 History Potassium Chloride ER [K-Dur 20] 20 meq PO DAILY #30 tab 01/26/21 06/29/24 Rx Digoxin [Lanoxin] 125 mcg PO DAILY 11/15/21 06/29/24 History Albuterol Inhaler [Ventolin Hfa 2 puff INHALATION RT-Q6H PRN 04/26/23 06/29/24 History Inhaler] Cholecalciferol [Vitamin D3 (25 25 mcg PO DAILY 04/26/23 06/29/24 History Mcg = 1000 Iu)] Fluticasone Propion/Salmeterol 1 puff INHALATION RT-BID 04/26/23 06/29/24 History [Wixela 500-50 Inhub] Tiotropium 2.5 Mcg/Puff [Spiriva 2 puff INHALATION RT-DAILY 04/26/23 06/29/24 History Respimat 2.5 Mcg] buPROPion [Wellbutrin] 150 mg PO BID 04/26/23 06/29/24 History Albuterol Nebulized [Ventolin 2.5 mg INHALATION RT-Q4H 02/15/24 06/29/24 History Nebulized] Bumetanide [BUMEX] 1 mg PO BID 02/15/24 06/29/24 History Carboxymethylcellulose Sodium 1 drop BOTH EYES Q6H PRN 02/15/24 06/29/24 History [Refresh Tears] Gabapentin [Neurontin] 200 mg PO BID 02/15/24 06/29/24 History Lidocaine 5% Patch [Lidoderm 5% 1 patch TRANSDERM DAILY 02/15/24 06/29/24 History Patch] traZODone HCL [Desyrel] 50 mg PO HS 02/15/24 06/29/24 History Sennosides/Docusate Sodium [Senna 1 tab PO BID 05/02/24 06/29/24 History Plus 8.6-50 mg Tablet] Aspirin 81 mg PO DAILY #90 tab 05/04/24 06/29/24 Rx Melatonin 5 mg PO HS tab 05/04/24 06/29/24 Rx Allergies Allergy/AdvReac Type Severity Reaction Status Date / Time atorvastatin [From Lipitor] AdvReac Muscle pain Verified 06/29/24 10:08 Physical Exam Vitals: Vital Signs Temp Pulse Resp BP Pulse Ox FiO2 06/29/24 12:46 35 06/29/24 12:45 35 06/29/24 12:07 99.6 F 96 20 84/38 96 06/29/24 10:41 112 H 20 103/59 95 06/29/24 10:01 109 H 18 132/68 96 06/29/24 09:47 108 H 06/29/24 09:37 110 H 06/29/24 09:20 26 H 06/29/24 09:10 100.9 F H 51 L 26 H 92/65 92 L Intake and Output 06/28/24 06/29/24 06/29/24 22:59 06:59 14:59 Other: Weight 104.326 kg Results CBC & Chem 7: 06/29/24 09:24 06/29/24 09:24 Labs: Abnormal Lab Results - Last 24 Hours (Table) 06/29/24 06/29/24 06/29/24 Range/Units 09:24 09:24 09:24 WBC 10.7 H (3.8-10.6) k/uL RBC 3.86 L (4.30-5.90) m/uL Hgb 12.3 L (13.0-17.5) gm/dL MCV 101.7 H (80.0-100.0) fL Neutrophils # 8.9 H (1.3-7.7) k/uL Lymphocytes # 0.4 L (1.0-4.8) k/uL APTT 21.9 L (22.0-30.0) sec Chloride 89 L (98-107) mmol/L Carbon Dioxide 40 H (22-30) mmol/L BUN 33 H (9-20) mg/dL Creatinine 1.51 H (0.66-1.25) mg/dL Glucose 109 H (74-99) mg/dL Troponin I (0.000-0.034) ng/mL Total Protein 6.1 L (6.3-8.2) g/dL Influenza Type A (PCR) (Not Detectd) 06/29/24 06/29/24 Range/Units 09:24 09:24 WBC (3.8-10.6) k/uL RBC (4.30-5.90) m/uL Hgb (13.0-17.5) gm/dL MCV (80.0-100.0) fL Neutrophils # (1.3-7.7) k/uL Lymphocytes # (1.0-4.8) k/uL APTT (22.0-30.0) sec Chloride (98-107) mmol/L Carbon Dioxide (22-30) mmol/L BUN (9-20) mg/dL Creatinine (0.66-1.25) mg/dL Glucose (74-99) mg/dL Troponin I 0.057 H* (0.000-0.034) ng/mL Total Protein (6.3-8.2) g/dL Influenza Type A (PCR) Detected A (Not Detectd)
[2024-06-29 16:44] LABS: ABG PCO2 77 mmHg (35-45)
[2024-06-29 16:45] LABS: ABG HCO3 44 mmol/L (21-25)
[2024-06-29 17:35] LABS: Glucose,Whole Blood 125 mg/dL (70-110)
[2024-06-29] MEDS: DOXYCYCLINE 100 MG CAP PO SCH (17:41)
[2024-06-29] MEDS ORDERED: DEXTROSE 50% SYRINGE 50 ML IVP PRN ×2 (20:16)
[2024-06-29 20:19] LABS: Glucose,Whole Blood 253 mg/dL (70-110)
[2024-06-29] MEDS: MELATONIN 5 MG TABLET PO SCH (20:34)
[2024-06-29] MEDS: traZODone HCL 50 MG TAB PO SCH (20:34)
[2024-06-29] MEDS: BUMETANIDE 1 MG TAB PO SCH (20:34)
[2024-06-29] MEDS: SENNOSIDES-DOCUSATE SODIUM 1 EACH TAB PO SCH (20:34)
[2024-06-29] MEDS: APIXABAN 5 MG TAB PO SCH (20:34)
[2024-06-29] MEDS: methylPREDNISolone SOD SUCCI 40 MG/ML 1 ML VIAL IV SCH (20:35)
[2024-06-29] MEDS: INSULIN LISPRO (HumaLOG) 100 UNIT/ML 10 mL VL SQ SCH (20:35)
[2024-06-29] MEDS: buPROPion 75 MG TAB PO SCH (20:35)
[2024-06-29] MEDS: GABAPENTIN 100 MG CAP PO SCH (20:35)
[2024-06-29] MEDS: OSELTAMIVIR 30 MG CAP PO SCH (20:35)
[2024-06-29] MEDS: VIT A,C & E-LUTEIN-MINERALS 1 EACH TAB PO SCH (20:35)
[2024-06-29] MEDS: SYMBICORT 160-4.5 MCG INHALER INHALATION SCH (20:56)
[2024-06-30 01:59] LABS: Glucose,Whole Blood 160 mg/dL (70-110)
[2024-06-30 06:20] LABS: Glucose,Whole Blood 143 mg/dL (70-110)
[2024-06-30] MEDS: TIOTROPIUM 2.5 MCG INHALER INHALATION SCH (08:15)
[2024-06-30 08:31] LABS: Basophils % (A) 0 %; Eosinophils % (A) 0 %; HCT 36.2 % (39.0-53.0); HGB 11.4 gm/dL (13.0-17.5); Hypochromasia Marked; Lymphocytes # (A) 0.2 k/uL (1.0-4.8); Lymphocytes % (A) 2 %; MCH 32.2 pg (25.0-35.0); MCHC 31.3 g/dL (31.0-37.0); MCV 102.7 fL (80.0-100.0); Macrocytosis Slight; Mean Platelet Volume 7.2; Monocytes # (A) 0.4 k/uL (0-1.0); Monocytes % (A) 4 %; Neutrophils # (A) 8.1 k/uL (1.3-7.7); Neutrophils % (A) 93 %; Platelet Count 153 k/uL (150-450); RBC 3.53 m/uL (4.30-5.90); RDW 14.1 % (11.5-15.5); WBC 8.7 k/uL (3.8-10.6)
[2024-06-30 08:42] LABS: African American GFR (CKD) 51 (>60 ml/min/1.73 sqM); Blood Urea Nitrogen 39 mg/dL (9-20); Calcium 8.3 mg/dL (8.4-10.2); Chloride 88 mmol/L (98-107); Glucose 137 mg/dL (74-99); Magnesium 2.1 mg/dL (1.6-2.3); Non-African American GFR(CKD) 44 (>60 ml/min/1.73 sqM); Potassium 4.4 mmol/L (3.5-5.1); Sodium 135 mmol/L (137-145)
[2024-06-30 08:49] LABS: Anion Gap 6 mmol/L
[2024-06-30 09:00] LABS: Carbon Dioxide 41 mmol/L (22-30)
[2024-06-30 09:15] LABS: Glucose,Whole Blood 145 mg/dL (70-110)
[2024-06-30] MEDS: DIGOXIN 125 MCG TAB PO SCH (09:46)
[2024-06-30] MEDS: CHOLECALCIFEROL 25 MCG (1000 IU) TABLET PO SCH (09:46)
[2024-06-30] MEDS: ASPIRIN 81 MG PO SCH (09:46)
[2024-06-30] MEDS: AMIODARONE 200 MG TAB PO SCH (09:46)
[2024-06-30] MEDS: LIDOCAINE 4% PATCH TOPICAL SCH (09:46)
[2024-06-30] MEDS: DOXYCYCLINE 50 MG CAP PO SCH (09:48)
[2024-06-30] MEDS: NON FORMULARY DRUG (Roflumilast [Daliresp] 500 MCG Tablet) PO SCH (10:00)
[2024-06-30 10:52] LABS: VBG PH 7.26 (7.31-7.41)
--- NOTE | 2024-06-30 11:25 | P.CRDCN ---
History of Present Illness History of present illness: HISTORY OF PRESENT ILLNESS: This is a 78-year-old male with a past medical history significant for coronary artery disease, chronic hypoxic respiratory failure on oxygen, obstructive sleep apnea with CPAP use, paroxysmal atrial fibrillation, cardioversion, hypertension, hyperlipidemia, obesity, and nicotine dependence. Patient follows in the office with Dr. Adler. We have been asked to see the patient in consultation for elevated troponins. Patient examined at the bedside. Patient was recently hospitalized for COPD exacerbation. Patient presented back to the hospital with a chief complaint of shortness of breath. Patient was found to be positive for influenza A. The patient denied having any fever or chills at home. He reports an occasional cough but states it is not worse than his baseline. He denied having any chest pain or pressure. DIAGNOSTICS: - EKG reveals sinus tachycardia with right bundle branch block. - Chest xray negative for acute process. COPD. - Laboratory data: WBC 8.7. Hemoglobin 11.4. Platelet count 153. Sodium 135. Potassium 4.4. BUN 39. Creatinine 1.49. Magnesium 2.1. proBNP 717. Troponin 0.057. 0.086. 0.092. - Current home cardiac medications include amiodarone 200 mg daily, Eliquis 5 mg twice a day, aspirin 81 mg daily, Bumex 1 mg twice a day. - Most recent echocardiogram obtained in April 2024 revealed ejection fraction 55 to 60% with mild TR - Cardiac catheterization history: February 2019 revealing minimal CAD and 50% lesion in the distal left circumflex REVIEW OF SYSTEMS: At the time of my exam: CONSTITUTIONAL: Denies fever or chills. HEENT: Denies blurred vision, vision changes, or eye pain. Denies hemoptysis CARDIOVASCULAR: Denies chest pain. Denies orthopnea. Denies PND. Denies palpitations RESPIRATORY: Reports shortness of breath. GASTROINTESTINAL: Denies abdominal pain. Denies nausea or vomiting. HEMATOLOGIC: Denies bleeding disorders. GENITOURINARY: Denies any blood in urine. SKIN: Denies pruitis. Denies rash. PHYSICAL EXAM: VITAL SIGNS: Reviewed. GENERAL: Well-developed in no acute distress. HEENT: Head is normocephalic. Pupils are equal, round. Sclerae anicteric. Mucous membranes of the mouth are moist. Neck supple. No JVD or thyromegaly LUNGS: Respirations even and unlabored. Lungs with bibasilar crackles. Currently on BiPAP. HEART: Regular rate and rhythm. S1 and S2 heard. ABDOMEN: Soft. Nondistended. Nontender. EXTREMITIES: Normal range of motion. No clubbing or cyanosis. Peripheral pulses intact. No lower extremity edema NEUROLOGIC: Awake and alert. Oriented x 3. ASSESSMENT: Shortness of breath Acute on chronic hypoxic respiratory failure, currently on BiPAP Acute influenza A Elevated troponins, likely type II IN secondary to oxygen supply and demand mismatch Recent hospitalization for COPD exacerbation Paroxysmal atrial fibrillation History of cardioversion, 2020 Hypertension Hyperlipidemia Obesity: BMI 32.2 Nicotine dependence PLAN: An acute coronary event has been ruled out No need to repeat echocardiogram as this was performed in April 2024 Resume home cardiac medications Discontinue digoxin Add Zetia 10 mg daily Recommend addition of Farxiga when patient's kidney function normalizes Continue telemetry monitoring Further recommendations pending patient course Nurse practitioner note has been reviewed by physician. Signing provider agrees with the documented findings, assessment, and plan of care documented by LOGISTIC MANAGER as a scribe. Past Medical History Past Medical History: Atrial Fibrillation, Cancer, Heart Failure, COPD, Eye Disorder, Hearing Disorder / Deafness, Hyperlipidemia, Hypertension, Osteo arthritis (OA) Additional Past Medical History / Comment(s): Emphysema (takes inhalers and uses oxygen at home). Hx Kidney Cancer in 2006, R nephrectomy.q Left eye detached re anita. Wet Macular Degeneration right eye. Hx Melanoma on back. Bilateral hearing aid use, legally blind. History of Any Multi-Drug Resistant Organisms: None Reported Past Surgical History: Back Surgery Additional Past Surgical History / Comment(s): Right kidney removed. Left eye surgery X3 for detacted retina. Bilateral cataract surgery. surgery thoracic spine for melanoma.plate in right arm, bilateral eye lids lifted Past Anesthesia/Blood Transfusion Reactions: Previous Problems w/ Anesthesia Additional Past Anesthesia/Blood Transfusion Reaction / Comment(s): States low heart rate, light-headed and low BP X1 with anesthesia. "Got broke vocal cord and could not talk for 2 months after anesthesia one time." Past Psychological History: Anxiety, Depression Smoking Status: Former smoker Past Alcohol Use History: Occasional Additional Past Alcohol Use History / Comment(s): States that he drinks maybe a case a month Past Drug Use History: None Reported Additional Drug Use History / Comment(s): currently smokes 1-2 cigarettes a day - Past Family History Mother Family Medical History: Cancer Additional Family Medical History / Comment(s): Brain Cancer. Father Family Medical History: CVA/TIA Medications and Allergies Home Medications Medication Instructions Recorded Confirmed Type Vit C/E/Zn/Coppr/Lutein/Zeaxan 1 cap PO BID 08/03/17 06/29/24 History [Preservision Areds 2 Softgel] Apixaban [Eliquis] 5 mg PO BID 30 Days #60 tab 11/26/20 06/29/24 Rx Amiodarone [Cordarone] 200 mg PO DAILY 12/02/20 06/29/24 History Roflumilast [Daliresp] 500 mcg PO DAILY 01/17/21 06/29/24 History Potassium Chloride ER [K-Dur 20] 20 meq PO DAILY #30 tab 01/26/21 06/29/24 Rx Digoxin [Lanoxin] 125 mcg PO DAILY 11/15/21 06/29/24 History Albuterol Inhaler [Ventolin Hfa 2 puff INHALATION RT-Q6H PRN 04/26/23 06/29/24 History Inhaler] Cholecalciferol [Vitamin D3 (25 25 mcg PO DAILY 04/26/23 06/29/24 History Mcg = 1000 Iu)] Fluticasone Propion/Salmeterol 1 puff INHALATION RT-BID 04/26/23 06/29/24 History [Wixela 500-50 Inhub] Tiotropium 2.5 Mcg/Puff [Spiriva 2 puff INHALATION RT-DAILY 04/26/23 06/29/24 History Respimat 2.5 Mcg] buPROPion [Wellbutrin] 150 mg PO BID 04/26/23 06/29/24 History Albuterol Nebulized [Ventolin 2.5 mg INHALATION RT-Q4H 02/15/24 06/29/24 History Nebulized] Bumetanide [BUMEX] 1 mg PO BID 02/15/24 06/29/24 History Carboxymethylcellulose Sodium 1 drop BOTH EYES Q6H PRN 02/15/24 06/29/24 History [Refresh Tears] Gabapentin [Neurontin] 200 mg PO BID 02/15/24 06/29/24 History Lidocaine 5% Patch [Lidoderm 5% 1 patch TRANSDERM DAILY 10/09/24 02/21/25 History Patch] traZODone HCL [Desyrel] 50 mg PO HS 02/15/24 06/29/24 History Sennosides/Docusate Sodium [Senna 1 tab PO BID 05/02/24 06/29/24 History Plus 8.6-50 mg Tablet] Aspirin 81 mg PO DAILY #90 tab 05/04/24 06/29/24 Rx Melatonin 5 mg PO HS tab 05/04/24 06/29/24 Rx Allergies Allergy/AdvReac Type Severity Reaction Status Date / Time atorvastatin [From Lipitor] AdvReac Muscle pain Verified 06/29/24 10:08 Physical Exam Vitals: Vital Signs Temp Pulse Pulse Resp BP BP Pulse Ox 06/30/24 07:56 88 06/30/24 07:40 88 06/30/24 04:14 90 06/30/24 03:42 97.2 F L 68 21 123/68 96 06/30/24 02:00 76 20 06/30/24 00:54 87 06/30/24 00:38 85 06/30/24 00:00 97.4 F L 74 19 94/53 94 L 06/29/24 21:08 86 06/29/24 20:57 84 06/29/24 20:00 97.5 F L 82 19 113/64 94 L 06/29/24 18:00 97.2 F L 83 20 92/59 92 L 06/29/24 16:56 97.5 F L 84 20 83/41 93 L 06/29/24 15:52 76 06/29/24 15:42 97.8 F 80 24 98/53 92 L 06/29/24 15:38 80 06/29/24 15:37 06/29/24 14:35 75 20 104/52 94 L 06/29/24 13:25 97/52 06/29/24 13:20 82 26 H 94/56 94 L 06/29/24 12:46 06/29/24 12:45 06/29/24 12:07 99.6 F 96 20 84/38 96 06/29/24 10:41 112 H 20 103/59 95 06/29/24 10:01 109 H 18 132/68 96 06/29/24 09:47 108 H 06/29/24 09:37 110 H 06/29/24 09:20 26 H 06/29/24 09:10 100.9 F H 51 L 26 H 92/65 92 L FiO2 06/30/24 07:56 06/30/24 07:40 35 06/30/24 04:14 35 06/30/24 03:42 35 06/30/24 02:00 06/30/24 00:54 06/30/24 00:38 35 06/30/24 00:00 06/29/24 21:08 06/29/24 20:57 06/29/24 20:00 06/29/24 18:00 35 06/29/24 16:56 06/29/24 15:52 06/29/24 15:42 06/29/24 15:38 06/29/24 15:37 35 06/29/24 14:35 06/29/24 13:25 06/29/24 13:20 06/29/24 12:46 35 06/29/24 12:45 35 06/29/24 12:07 06/29/24 10:41 06/29/24 10:01 06/29/24 09:47 06/29/24 09:37 06/29/24 09:20 06/29/24 09:10 Intake and Output 06/29/24 06/30/24 06/30/24 22:59 06:59 14:59 Intake Total 10 Output Total 300 400 Balance -290 -400 Intake: IV 10 Invasive Line 1 10 Output: Urine 300 400 Other: Voiding Method Urinal Urinal # Voids 2 Weight 104.326 kg 101.7 kg Results 06/30/24 07:22 06/30/24 07:22 Cardiac Enzymes 06/29/24 06/29/24 06/29/24 Range/Units 09:24 09:24 14:14 AST 23 (17-59) U/L Troponin I 0.057 H* 0.086 H* (0.000-0.034) ng/mL 06/29/24 Range/Units 16:51 AST (17-59) U/L Troponin I 0.092 H* (0.000-0.034) ng/mL Coagulation 06/29/24 Range/Units 09:24 PT 10.3 (10.0-12.5) sec APTT 21.9 L (22.0-30.0) sec CBC 06/29/24 06/30/24 Range/Units 09:24 07:22 WBC 10.7 H 8.7 (3.8-10.6) k/uL RBC 3.86 L 3.53 L (4.30-5.90) m/uL Hgb 12.3 L 11.4 L (13.0-17.5) gm/dL Hct 39.2 36.2 L (39.0-53.0) % Plt Count 153 153 (150-450) k/uL Comprehensive Metabolic Panel 06/29/24 Range/Units 09:24 Sodium 137 (137-145) mmol/L Potassium 4.0 (3.5-5.1) mmol/L Chloride 89 L (98-107) mmol/L Carbon Dioxide 40 H (22-30) mmol/L BUN 33 H (9-20) mg/dL Creatinine 1.51 H (0.66-1.25) mg/dL Glucose 109 H (74-99) mg/dL Calcium 8.8 (8.4-10.2) mg/dL AST 23 (17-59) U/L ALT 20 (4-49) U/L Alkaline Phosphatase 65 (38-126) U/L Total Protein 6.1 L (6.3-8.2) g/dL Albumin 3.6 (3.5-5.0) g/dL Current Medications Generic Name Dose Route Start Last Admin Trade Name Freq PRN Reason Stop Dose Admin Acetaminophen 650 mg 06/29/24 12:04 Acetaminophen Tab 325 Mg Tab PO Q6HR PRN Mild Pain or Fever > 100.5 Albuterol/Ipratropium 3 ml 06/29/24 16:00 06/30/24 07:40 Ipratropium-Albuterol 3 Ml Neb INHALATION 3 ml RT-Q4H ELKE Administration Albuterol/Ipratropium 3 ml 06/29/24 12:57 Ipratropium-Albuterol 3 Ml Neb INHALATION RT-Q2H PRN Shortness Of Breath Or Wheezing Amiodarone HCl 200 mg 06/30/24 09:00 Amiodarone 200 Mg Tab PO DAILY ELKE Apixaban 5 mg 06/29/24 21:00 06/29/24 20:34 Apixaban 5 Mg Tab PO 5 mg BID ELKE Administration Protocol Artificial Tears 1 drops 06/29/24 12:53 Artificial Tears-Hypromellose Drops 15 Ml Btl BOTH EYES Q6H PRN Dry Eye(s) Aspirin 81 mg 06/30/24 09:00 Aspirin 81 Mg PO DAILY ELKE Budesonide/Formoterol Fumarate 2 puff 06/29/24 20:00 06/30/24 07:40 Symbicort 160-4.5 Mcg Inhaler INHALATION 2 puff RT-BID ELKE Administration Bumetanide 1 mg 06/29/24 21:00 06/29/24 20:34 Bumetanide 1 Mg Tab PO 1 mg BID ELKE Administration Bupropion HCl 150 mg 06/29/24 21:00 06/29/24 20:35 Bupropion 75 Mg Tab PO 150 mg BID ELKE Administration Cholecalciferol 25 mcg 06/30/24 09:00 Cholecalciferol 25 Mcg (1000 Iu) Tablet PO DAILY ELKE Dextrose/Water 25 ml 06/29/24 20:16 Dextrose 50% Syringe 50 Ml IVP PER PROTOCOL PRN Hypoglycemia Protocol Dextrose/Water 50 ml 06/29/24 20:16 Dextrose 50% Syringe 50 Ml IVP PER PROTOCOL PRN Hypoglycemia Protocol Digoxin 125 mcg 06/30/24 09:00 Digoxin 125 Mcg Tab PO DAILY [facility] Doxycycline Monohydrate 100 mg 06/30/24 09:00 Doxycycline 50 Mg Cap PO BID [facility] Gabapentin 200 mg 06/29/24 21:00 06/29/24 20:35 Gabapentin 100 Mg Cap PO 200 mg BID ELKE Administration Insulin Human Lispro 0 unit 06/29/24 20:30 06/30/24 03:10 Insulin Lispro (Humalog) 100 Unit/Ml 10 Ml Vl SQ 2 unit Q6H ELKE Administration Protocol Lidocaine 1 patch 06/30/24 09:00 Lidocaine 4% Patch TOPICAL DAILY ELKE Melatonin 5 mg 06/29/24 21:00 06/29/24 20:34 Melatonin 5 Mg Tablet PO 5 mg HS ELKE Administration Methylprednisolone Sodium Succinate 40 mg 06/29/24 20:00 06/30/24 03:10 Methylprednisolone Sod Succi 40 Mg/Ml 1 Ml Vial IV 40 mg Q8H ELKE Administration Multivitamins/Minerals 1 each 06/29/24 21:00 06/29/24 20:35 Vit A,C & P-[id number] 1 Each Tab PO 1 each BID ELKE Administration Naloxone HCl 0.2 mg 06/29/24 12:04 Naloxone 0.4 Mg/Ml 1 Ml Vial IV Q2M PRN Opioid Reversal Non-Formulary Medication 500 mcg 06/30/24 09:00 Roflumilast [Daliresp] PO DAILY ELKE Oseltamivir Phosphate 30 mg 06/29/24 21:00 06/29/24 20:35 Oseltamivir 30 Mg Cap PO 07/03/24 21:01 30 mg BID ELKE Administration Protocol Senna/Docusate Sodium 1 each 06/29/24 21:00 06/29/24 20:34 Sennosides-Docusate Sodium 1 Each Tab PO 1 each BID ELKE Administration Trazodone HCl 50 mg 06/29/24 21:00 06/29/24 20:34 Trazodone Hcl 50 Mg Tab PO 50 mg HS ELKE Administration Intake and Output 06/29/24 06/30/24 06/30/24 22:59 06:59 14:59 Intake Total 10 Output Total 300 400 Balance -290 -400 Intake: IV 10 Invasive Line 1 10 Output: Urine 300 400 Other: Voiding Method Urinal Urinal # Voids 2 Weight 104.326 kg 101.7 kg 06/30/24 07:22 06/29/24 09:24
[2024-06-30 11:34] LABS: Glucose,Whole Blood 209 mg/dL (70-110)
[2024-06-30] MEDS: INSULIN LISPRO (HumaLOG) 100 UNIT/ML 10 mL VL SQ SCH (12:15)
[2024-06-30] MEDS: ARTIFICIAL TEARS-HYPROMELLOSE DROPS 15 ML BTL BOTH EYES PRN (12:37)
--- NOTE | 2024-06-30 14:13 | P.CNPUL ---
History of Present Illness Consult date: 06/29/24 Reason for consult: dyspnea, COPD History of present illness: 78-year-old male patient, admitted through emergency department for worsening shortness of breath. He has had multiple hospitalizations for the same. He was recently hospitalized and discharged on 05/25/2024 after being treated for an acute COPD exacerbation. He wears oxygen at home at 2 L/min nasal cannula and his oxygen requirements apparently been going up and while on 4 L of O2 the patient's pulse ox was 78%. Based on that, the patient came into the emergency and he was hospitalized. He has a cough, nonproductive. He was febrile upon arrival to the hospital. Based on that, the patient was admitted. His temperature was 100.9. Hemodynamically stable, slightly tachycardic, his blood work showed a white cell count of 10.7 and he was 12.3 and platelet count of 153. Sodium level is at 137, BUN 33 with a creatinine of 1.5 and a glucose of 109. The blood gas was done that showed chronic hypercapnic respiratory failure compensated with a pH of 7.37 and a pCO2 of 77 and pO2 of 82 and this was done while the patient was on a BiPAP at a pressure of 10/5 with an FiO2 of 35%. Reviewed the chest x-ray from this current admission and it is consistent with COPD. No airspace disease. No consolidation. No pneumothorax. The patient also had a viral screen that was positive for influenza A and this could have exacerbated his underlying COPD. He is currently on DuoNeb nebulized treatments [id number]. He was also started on Tamiflu. He was started on IV Solu- Medrol 40 mg every 8 hours. He also had a COVID-19 infection back in May 2024. In terms of his respiratory status, the patient COPD is advanced. He has an FEV1 of 19% of predicted. He has been maintained on a combination of Spiriva and Wixela and outpatient basis. He is also oxygen dependent. He also has a AVAPS machine at home. Other comorbidities include atrial fibrillation, macular degeneration, and renal cancer for which the patient has undergone a right nephrectomy. He has also hypertension hyperlipidemia and impaired hearing. Review of Systems CONSTITUTIONAL: Denies any recent significant weight loss or weight gain. EYES: Denies change in vision. EARS, NOSE, MOUTH, THROAT: Denies headaches, denies sore throat. CARDIOVASCULAR: Denies chest pain, palpitations or syncopal episodes. RESPIRATORY: Positive for shortness of breath, cough, congestion no hemoptysis. GASTROINTESTINAL: Denies change in appetite, denies abdominal pain GENITOURINARY: Denies hematuria, denies infections. MUSKULOSKELETAL: Denies pain, denies swelling. INTEGUMENTARY: Denies rash, denies eczema. NEUROLOGICAL: Denies recent memory loss, no recent seizure activity. PSYCHIATRIC: Denies anxiety, denies depression. HEMATOLOGIC/LYMPHATIC: Denies anemia, denies enlarged lymph nodes. Past Medical History Past Medical History: Atrial Fibrillation, Cancer, Heart Failure, COPD, Eye Disorder, Hearing Disorder / Deafness, Hyperlipidemia, Hypertension, Osteoarthritis (OA) Additional Past Medical History / Comment(s): Emphysema (takes inhalers and uses oxygen at home). Hx Kidney Cancer in 2006, R nephrectomy.q Left eye detached retina. Wet Macular Degeneration right eye. Hx Melanoma on back. Bilateral hearing aid use, legally blind. History of Any Multi-Drug Resistant Organisms: None Reported Past Surgical History: Back Surgery Additional Past Surgical History / Comment(s): Right kidney removed. Left eye surgery X3 for detacted retina. Bilateral cataract surgery. surgery thoracic spine for melanoma.plate in right arm, bilateral eye lids lifted Past Anesthesia/Blood Transfusion Reactions: Previous Problems w/ Anesthesia Additional Past Anesthesia/Blood Transfusion Reaction / Comment(s): States low heart rate, light-headed and low BP X1 with anesthesia. "Got broke vocal cord and could not talk for 2 months after anesthesia one time." Past Psychological History: Anxiety, Depression Smoking Status: Former smoker Past Alcohol Use History: Occasional Past Drug Use History: None Reported - Past Family History Mother Family Medical History: Cancer Additional Family Medical History / Comment(s): Brain Cancer. Father Family Medical History: CVA/TIA Medications and Allergies Home Medications Medication Instructions Recorded Confirmed Type Vit C/E/Zn/Coppr/Lutein/Zeaxan 1 cap PO BID 08/03/17 06/29/24 History [Preservision Areds 2 Softgel] Apixaban [Eliquis] 5 mg PO BID 30 Days #60 tab 11/26/20 06/29/24 Rx Amiodarone [Cordarone] 200 mg PO DAILY 12/02/20 06/29/24 History Roflumilast [Daliresp] 500 mcg PO DAILY 01/17/21 06/29/24 History Potassium Chloride ER [K-Dur 20] 20 meq PO DAILY #30 tab 01/26/21 06/29/24 Rx Digoxin [Lanoxin] 125 mcg PO DAILY 11/15/21 06/29/24 History Albuterol Inhaler [Ventolin Hfa 2 puff INHALATION RT-Q6H PRN 04/26/23 06/29/24 History Inhaler] Cholecalciferol [Vitamin D3 (25 25 mcg PO DAILY 04/26/23 06/29/24 History Mcg = 1000 Iu)] Fluticasone Propion/Salmeterol 1 puff INHALATION RT-BID 04/26/23 06/29/24 History [Wixela 500-50 Inhub] Tiotropium 2.5 Mcg/Puff [Spiriva 2 puff INHALATION RT-DAILY 04/26/23 06/29/24 History Respimat 2.5 Mcg] buPROPion [Wellbutrin] 150 mg PO BID 04/26/23 06/29/24 History Albuterol Nebulized [Ventolin 2.5 mg INHALATION RT-Q4H 02/15/24 06/29/24 History Nebulized] Bumetanide [BUMEX] 1 mg PO BID 02/15/24 06/29/24 History Carboxymethylcellulose Sodium 1 drop BOTH EYES Q6H PRN 02/15/24 06/29/24 History [Refresh Tears] Gabapentin [Neurontin] 200 mg PO BID 02/15/24 06/29/24 History Lidocaine 5% Patch [Lidoderm 5% 1 patch TRANSDERM DAILY 02/15/24 06/29/24 History Patch] traZODone HCL [Desyrel] 50 mg PO HS 02/15/24 06/29/24 History Sennosides/Docusate Sodium [Senna 1 tab PO BID 05/02/24 06/29/24 History Plus 8.6-50 mg Tablet] Aspirin 81 mg PO DAILY #90 tab 05/04/24 06/29/24 Rx Melatonin 5 mg PO HS tab 05/04/24 06/29/24 Rx Allergies Allergy/AdvReac Type Severity Reaction Status Date / Time atorvastatin [From Lipitor] AdvReac Muscle pain Verified 06/29/24 10:08 Physical Exam Vitals: Vital Signs Temp Pulse Resp BP Pulse Ox FiO2 06/29/24 15:52 76 06/29/24 15:42 97.8 F 80 24 98/53 92 L 06/29/24 15:38 80 06/29/24 15:37 35 06/29/24 14:35 75 20 104/52 94 L 06/29/24 13:25 97/52 06/29/24 13:20 82 26 H 94/56 94 L 06/29/24 12:46 35 06/29/24 12:45 35 06/29/24 12:07 99.6 F 96 20 84/38 96 06/29/24 10:41 112 H 20 103/59 95 06/29/24 10:01 109 H 18 132/68 96 06/29/24 09:47 108 H 06/29/24 09:37 110 H 06/29/24 09:20 26 H 06/29/24 09:10 100.9 F H 51 L 26 H 92/65 92 L Intake and Output 06/29/24 06/29/24 06/29/24 06:59 14:59 22:59 Other: Weight 104.326 kg GENERAL EXAM: Alert, 78-year-old male, obese, currently on a BiPAP pressure of 10/5 with an FiO2 of 35% HEAD: Normocephalic and atraumatic EYES: Normal reaction of pupils, equal size. NOSE: Clear with pink turbinates. THROAT: No erythema or exudates. NECK: No masses, no JVD. CHEST: No chest wall deformity. LUNGS: Equal air entry with diminished lung sounds throughout with faint end expiratory wheezes. No crackles, rhonchi or focal dullness. On 2 L/min nasal cannula. No conversational dyspnea or accessory muscle use while at rest. CVS: S1 and S2 normal with no audible murmur, regular rhythm. No extra heart sounds ABDOMEN: No hepatosplenomegaly, active bowel sounds, no guarding or rigidity. SPINE: No scoliosis or deformity SKIN: No rashes CENTRAL NERVOUS SYSTEM: No focal deficits, tone is normal in all 4 extremities. EXTREMITIES: There is no peripheral edema, clubbing, or cyanosis. Peripheral pulses are intact. Results - Laboratory Findings CBC and BMP: 06/30/24 07:22 06/30/24 07:22 PT/INR, D-dimer PT 10.3 sec (10.0-12.5) 06/29/24 09:24 INR 0.9 (<1.2) 06/29/24 09:24 Abnormal lab findings: Abnormal Labs 06/29/24 06/29/24 06/29/24 09:24 09:24 09:24 WBC 10.7 H RBC 3.86 L Hgb 12.3 L MCV 101.7 H Neutrophils # 8.9 H Lymphocytes # 0.4 L APTT 21.9 L Chloride 89 L Carbon Dioxide 40 H BUN 33 H Creatinine 1.51 H Glucose 109 H Troponin I Total Protein 6.1 L Influenza Type A (PCR) 06/29/24 06/29/24 06/29/24 09:24 09:24 14:14 WBC RBC Hgb MCV Neutrophils # Lymphocytes # APTT Chloride Carbon Dioxide BUN Creatinine Glucose Troponin I 0.057 H* 0.086 H* Total Protein Influenza Type A (PCR) Detected A - Diagnostic Findings Chest x-ray: image reviewed Assessment and Plan Plan: Acute COPD exacerbation secondary to influenza A infection, currently on BiPAP at a pressure of 10 over 5 cm of water with an FiO2 of 35% Acute on chronic hypoxic respiratory failure Chronic hypercapnic respiratory failure, acid-base status and blood gas is compensated. Acute influenza infection without evidence of any pneumonia. Chest x-ray shows chronic changes consistent with COPD Severe oxygen and steroid dependent chronic obstructive pulmonary disease, most recent FEV1 19 % of predicted, maintained on AVAPS machine at home. The patient is also oxygen dependent and the patient has been maintained on a combination of Wixela and Spiriva on outpatient basis. Chronic hypoxemic and hypercapnic respiratory, normally on 2-4 L/min nasal cannula 29/11 Chronic ongoing tobacco dependence and secondhand smoke exposure Obstructive sleep apnea, with home AVAPS machine Recent acute COVID-19 infection Obesity, with a BMI of 33 kg/m Paroxysmal atrial fibrillation, currently in normal sinus rhythm, anticoagulated on Eliquis Hypertension History of renal cancer status post right nephrectomy Plan: Continue BiPAP for respiratory support Will transition the patient to nasal cannula once he is more comfortable Chest x-ray findings, felt to be chronic Start the patient on Tamiflu Continue combination of bronchodilators IV Solu-Medrol 40 mg every 8 hours Smoking cessation counseling performed Continue amiodarone 200 mg p.o. daily the patient is also on anticoagulation with Eliquis regarding paroxysmal atrial fibrillation. Current rhythm is sinus. Continue digoxin Resume home medications including Wellbutrin and Desyrel Resume home medications. 3
--- NOTE | 2024-06-30 14:16 | P.PN ---
Subjective Progress Note Date: 06/30/24 78-year-old male patient, admitted through emergency department for worsening shortness of breath. He has had multiple hospitalizations for the same. He was recently hospitalized and discharged on 05/25/2024 after being treated for an acute COPD exacerbation. He wears oxygen at home at 2 L/min nasal cannula and his oxygen requirements apparently been going up and while on 4 L of O2 the patient's pulse ox was 78%. Based on that, the patient came into the emergency and he was hospitalized. He has a cough, nonproductive. He was febrile upon arrival to the hospital. Based on that, the patient was admitted. His temperature was 100.9. Hemodynamically stable, slightly tachycardic, his blood work showed a white cell count of 10.7 and he was 12.3 and platelet count of 153. Sodium level is at 137, BUN 33 with a creatinine of 1.5 and a glucose of 109. The blood gas was done that showed chronic hypercapnic respiratory failure compensated with a pH of 7.37 and a pCO2 of 77 and pO2 of 82 and this was done while the patient was on a BiPAP at a pressure of 10/5 with an FiO2 of 35%. Reviewed the chest x-ray from this current admission and it is consistent with COPD. No airspace disease. No consolidation. No pneumothorax. The patient also had a viral screen that was positive for influenza A and this could have exacerbated his underlying COPD. He is currently on DuoNeb nebulized treatments [id number]. He was also started on Tamiflu. He was started on IV Solu- Medrol 40 mg every 8 hours. He also had a COVID-19 infection back in May 2024. In terms of his respiratory status, the patient COPD is advanced. He has an FEV1 of 19% of predicted. He has been maintained on a combination of Spiriva and Wixela and outpatient basis. He is also oxygen dependent. He also has a AVAPS machine at home. Other comorbidities include atrial fibrillation, macular degeneration, and renal cancer for which the patient has undergone a right nephrectomy. He has also hypertension hyperlipidemia and impaired hearing. On today's evaluation of 06/30/2024, the patient is being seen for a follow-up. The patient seems to be much more comfortable compared to yesterday. Remains on a BiPAP. On and off, he is being given brief periods of the BiPAP. At the time of my evaluation, the patient was still on the BiPAP pressure of 10 over 5 cm of water and the patient was able to generate good tidal volumes above 600 and the patient's respiratory rate is around 20. The patient remains on DuoNeb updrafts. The patient remains on Symbicort. The patient remains on IV Solu- Medrol 40 mg every 8 hours. Rest of the home medication resumed. He remains on Tamiflu. White cell count 8.7, hemoglobin 11.4 and platelet count of 153. Serum bicarb is at 41. BUN 39 with a creatinine of 1.4 and sodium levels at 135 and potassium level is at 4.4. Note that the patient has history of chronic kidney disease. No altered mentation the patient was awake and alert and communicating and following commands and answering questions appropriately. He does have chronic hypoxic and hypercapnic respiratory failure. He has a AVAPS device at home. Objective - Vital Signs Vital signs: Vital Signs Temp 97.2 F L 06/30/24 09:00 Pulse 90 06/30/24 12:19 Resp 22 06/30/24 12:19 BP 118/63 06/30/24 12:19 Pulse Ox 93 L 06/30/24 12:19 FiO2 35 06/30/24 09:00 Intake & Output 06/29/24 06/30/24 06/30/24 18:59 06:59 18:59 Intake Total 10 260 Output Total 300 400 900 Balance -300 -390 -640 Weight 104.326 kg 101.7 kg Intake: IV 10 20 Invasive Line 1 10 20 Oral 240 Output: Urine 300 400 900 Other: Voiding Method Urinal Urinal # Voids 2 - Exam GENERAL EXAM: Alert, 78-year-old male, obese, currently on a BiPAP pressure of 10/5 with an FiO2 of 35% HEAD: Normocephalic and atraumatic EYES: Normal reaction of pupils, equal size. NOSE: Clear with pink turbinates. THROAT: No erythema or exudates. NECK: No masses, no JVD. CHEST: No chest wall deformity. LUNGS: Equal air entry with diminished lung sounds throughout with faint end expiratory wheezes. No crackles, rhonchi or focal dullness. On 2 L/min nasal cannula. No conversational dyspnea or accessory muscle use while at rest. CVS: S1 and S2 normal with no audible murmur, regular rhythm. No extra heart sounds ABDOMEN: No hepatosplenomegaly, active bowel sounds, no guarding or rigidity. SPINE: No scoliosis or deformity SKIN: No rashes CENTRAL NERVOUS SYSTEM: No focal deficits, tone is normal in all 4 extremities. EXTREMITIES: There is no peripheral edema, clubbing, or cyanosis. Peripheral pulses are intact. - Labs CBC & Chem 7: 06/30/24 07:22 06/30/24 07:22 Labs: Abnormal Lab Results - Last 24 Hours (Table) 06/29/24 06/29/24 06/29/24 Range/Units 12:23 14:14 16:51 RBC (4.30-5.90) m/uL Hgb (13.0-17.5) gm/dL Hct (39.0-53.0) % MCV (80.0-100.0) fL Neutrophils # (1.3-7.7) k/uL Lymphocytes # (1.0-4.8) k/uL ABG pCO2 77 H* (35-45) mmHg ABG pO2 82 L (83-108) mmHg ABG HCO3 44 H* (21-25) mmol/L ABG Total CO2 46 H (19-24) mmol/L VBG pH (7.31-7.41) VBG pCO2 (37-51) mmHg VBG HCO3 (24-28) mmol/L Hemoglobin 11.1 L (13.0-17.5) gm/dL Sodium (137-145) mmol/L Chloride (98-107) mmol/L Carbon Dioxide (22-30) mmol/L BUN (9-20) mg/dL Creatinine (0.66-1.25) mg/dL Glucose (74-99) mg/dL POC Glucose (mg/dL) (70-110) mg/dL Calcium (8.4-10.2) mg/dL Troponin I 0.086 H* 0.092 H* (0.000-0.034) ng/mL Procalcitonin (0.02-0.50) ng/mL 06/29/24 06/29/24 06/29/24 Range/Units 16:51 17:33 19:52 RBC (4.30-5.90) m/uL Hgb (13.0-17.5) gm/dL Hct (39.0-53.0) % MCV (80.0-100.0) fL Neutrophils # (1.3-7.7) k/uL Lymphocytes # (1.0-4.8) k/uL ABG pCO2 (35-45) mmHg ABG pO2 (83-108) mmHg ABG HCO3 (21-25) mmol/L ABG Total CO2 (19-24) mmol/L VBG pH (7.31-7.41) VBG pCO2 (37-51) mmHg VBG HCO3 (24-28) mmol/L Hemoglobin (13.0-17.5) gm/dL Sodium (137-145) mmol/L Chloride (98-107) mmol/L Carbon Dioxide (22-30) mmol/L BUN (9-20) mg/dL Creatinine (0.66-1.25) mg/dL Glucose (74-99) mg/dL POC Glucose (mg/dL) 125 H 253 H (70-110) mg/dL Calcium (8.4-10.2) mg/dL Troponin I (0.000-0.034) ng/mL Procalcitonin 0.53 H (0.02-0.50) ng/mL 06/30/24 06/30/24 06/30/24 Range/Units 01:56 05:39 07:22 RBC (4.30-5.90) m/uL Hgb (13.0-17.5) gm/dL Hct (39.0-53.0) % MCV (80.0-100.0) fL Neutrophils # (1.3-7.7) k/uL Lymphocytes # (1.0-4.8) k/uL ABG pCO2 (35-45) mmHg ABG pO2 (83-108) mmHg ABG HCO3 (21-25) mmol/L ABG Total CO2 (19-24) mmol/L VBG pH (7.31-7.41) VBG pCO2 (37-51) mmHg VBG HCO3 (24-28) mmol/L Hemoglobin (13.0-17.5) gm/dL Sodium 135 L (137-145) mmol/L Chloride 88 L (98-107) mmol/L Carbon Dioxide 41 H* (22-30) mmol/L BUN 39 H (9-20) mg/dL Creatinine 1.49 H (0.66-1.25) mg/dL Glucose 137 H (74-99) mg/dL POC Glucose (mg/dL) 160 H 143 H (70-110) mg/dL Calcium 8.3 L (8.4-10.2) mg/dL Troponin I (0.000-0.034) ng/mL Procalcitonin (0.02-0.50) ng/mL 06/30/24 06/30/24 06/30/24 Range/Units 07:22 09:12 09:51 RBC 3.53 L (4.30-5.90) m/uL Hgb 11.4 L (13.0-17.5) gm/dL Hct 36.2 L (39.0-53.0) % MCV 102.7 H (80.0-100.0) fL Neutrophils # 8.1 H (1.3-7.7) k/uL Lymphocytes # 0.2 L (1.0-4.8) k/uL ABG pCO2 (35-45) mmHg ABG pO2 (83-108) mmHg ABG HCO3 (21-25) mmol/L ABG Total CO2 (19-24) mmol/L VBG pH 7.26 L (7.31-7.41) VBG pCO2 92 H* (37-51) mmHg VBG HCO3 42 H (24-28) mmol/L Hemoglobin (13.0-17.5) gm/dL Sodium (137-145) mmol/L Chloride (98-107) mmol/L Carbon Dioxide (22-30) mmol/L BUN (9-20) mg/dL Creatinine (0.66-1.25) mg/dL Glucose (74-99) mg/dL POC Glucose (mg/dL) 145 H (70-110) mg/dL Calcium (8.4-10.2) mg/dL Troponin I (0.000-0.034) ng/mL Procalcitonin (0.02-0.50) ng/mL 06/30/24 Range/Units 11:32 RBC (4.30-5.90) m/uL Hgb (13.0-17.5) gm/dL Hct (39.0-53.0) % MCV (80.0-100.0) fL Neutrophils # (1.3-7.7) k/uL Lymphocytes # (1.0-4.8) k/uL ABG pCO2 (35-45) mmHg ABG pO2 (83-108) mmHg ABG HCO3 (21-25) mmol/L ABG Total CO2 (19-24) mmol/L VBG pH (7.31-7.41) VBG pCO2 (37-51) mmHg VBG HCO3 (24-28) mmol/L Hemoglobin (13.0-17.5) gm/dL Sodium (137-145) mmol/L Chloride (98-107) mmol/L Carbon Dioxide (22-30) mmol/L BUN (9-20) mg/dL Creatinine (0.66-1.25) mg/dL Glucose (74-99) mg/dL POC Glucose (mg/dL) 209 H (70-110) mg/dL Calcium (8.4-10.2) mg/dL Troponin I (0.000-0.034) ng/mL Procalcitonin (0.02-0.50) ng/mL Assessment and Plan Plan: Acute COPD exacerbation secondary to influenza A infection, currently on BiPAP at a pressure of 10 over 5 cm of water with an FiO2 of 35%. Clinically improved and the patient seems to be less short of breath. No signs of any CO2 narcosis. Acute on chronic hypoxic respiratory failure, secondary to above Chronic hypercapnic respiratory failure, acid-base status and blood gas is compensated. Acute influenza infection without evidence of any pneumonia. Chest x-ray shows chronic changes consistent with COPD, the patient is currently on Tamiflu Severe oxygen and steroid dependent chronic obstructive pulmonary disease, most recent FEV1 19 % of predicted, maintained on AVAPS machine at home. The patient is also oxygen dependent and the patient has been maintained on a combination of Wixela and Spiriva on outpatient basis. Chronic hypoxemic and hypercapnic respiratory, normally on 2-4 L/min nasal cannula 29/11 Chronic ongoing tobacco dependence and secondhand smoke exposure Obstructive sleep apnea, with home AVAPS machine Recent acute COVID-19 infection Obesity, with a BMI of 33 kg/m Paroxysmal atrial fibrillation, currently in normal sinus rhythm, anticoagulated on Eliquis Hypertension History of renal cancer status post right nephrectomy Plan: Continue BiPAP for respiratory support. May give the patient some time off the BiPAP and will use it continuously overnight. Will transition the patient to nasal cannula once he is more comfortable Chest x-ray findings, felt to be chronic Start the patient on Tamiflu Continue combination of bronchodilators IV Solu-Medrol 40 mg every 8 hours Smoking cessation counseling performed Continue amiodarone 200 mg p.o. daily the patient is also on anticoagulation with Eliquis regarding paroxysmal atrial fibrillation. Current rhythm is sinus. Resume home medications including Wellbutrin and Desyrel Will continue to follow 3
[2024-06-30 16:13] LABS: Glucose,Whole Blood 111 mg/dL (70-110)
[2024-06-30] MEDS: guaiFENesin SYRUP 100MG/5ML 200 MG/10 ML CUP PO PRN (16:30)
[2024-06-30 17:11] LABS: Glucose,Whole Blood 131 mg/dL (70-110)
--- NOTE | 2024-06-30 18:01 | P.PN ---
Subjective Progress Note Date: 06/30/24 Hospital Course: Patient is a very pleasant 78-year-old male with a past medical history of COPD with chronic hypoxic respiratory failure home oxygen dependent on 2 L follows with oil burner servicer and installer Dr. Ware, nicotine dependence, hypertension, hyperlipidemia, chronic heart failure with EF of 55 to 60%, paroxysmal atrial fibrillation on anticoagulation with Eliquis, renal cell carcinoma status post right nephrectomy with chronic kidney disease stage IIIa, macular degeneration, and peripheral neuropathy. He presented to the hospital with a chief complaint of shortness of breath. Patient recently underwent hospitalization for COPD exacerbation 06/23- 06/25 for COPD exacerbation. Patient reports going home, completing his steroids and feeling well up until about 2 days ago when he again began to develop worsening shortness of breath accompanied by a nonproductive cough. He reports that he was increasing his oxygen to 4 L but this did not even help and his shortness of breath progressively worsened accompanied by generalized bodyaches, diaphoresis and fatigue so he called EMS for transport to the hospital. He denies known fever but states he also did not check his temp at home, denies headache, lightheadedness, dizziness, chest pain, palpitations, abdominal pain, nausea, vomiting, diarrhea, or experiencing any numbness/tingling/weakness/swelling in his extremities. Upon arrival to our facility, patient underwent evaluation in the emergency department. Vital signs upon arrival show blood pressure 92/65, heart rate 51, respiratory rate 26, temp 100.9 F, and SpO2 of 92% on 4 L. EKG was completed showing sinus tachycardia at 109 bpm with moderate interference. Chest x-ray completed showing findings of COPD with hyperinflation and flattening of the diaphragm but negative for acute cardiopulmonary process. Labs completed and reviewed. CBC showing leukocytosis with WBC count of 10.7, hemoglobin of 12.3, platelet count of 153 with mild macrocytosis with elevated MCV of 101.7. Coagulation profile showing a low PTT of 21.9. BMP showing metabolic alkalosis with chloride of 89, bicarb of 40, and anion gap of 8 and renal function consistent with known stage III CKD with BUN of 33, creatinine of 1.51, GFR 44. Blood glucose was 109. Lactic acid was 1.1. Calcium 8.8. Magnesium 1.8. Liver profile unremarkable. Troponin was elevated at 0.057 and proBNP 717. Patient initially requiring 4 L O2 in the emergency department however there were concerns for increasing lethargy with increased work of breathing and patient was placed on continuous BiPAP. Patient's mentation significantly improved shortly after being placed on BiPAP. Currently respirations even, regular, and unlabored on BiPAP and patient able to speak in full sentences at this time. Patient admitted under our services with consultation to cardiology for elevated troponins and pulmonology for acute on chronic respiratory failure. Physical exam: Patient seen and fully evaluated at bedside this morning. He was sitting up in chair on BiPAP. Respirations even and not labored at this time. Patient reports breathing comfortable on BiPAP and states feeling better than he did upon arrival to our facility. Discussed plan of care in detail with Dr. Huerta, oil burner servicer and installer also at bedside. Vital signs reviewed and stable. General: Nontoxic and appears stated age. Derm: Skin warm and dry, normal coloration for ethnicity. Head: Atraumatic, normocephalic and symmetric. Eyes: EOM's intact, no lid lag, and anicteric sclera Mouth: no lip lesions, mucus membranes moist Cardiovascular: regular rate and rhythm with normal S1S2, systolic murmur, positive posterior tibial pulses bilaterally, and cap refill < 2 seconds. Lungs: Respirations even, regular, and unlabored on BiPAP. Lungs diminished with soft expiratory wheezes and diffuse rhonchi bilaterally. Patient speaking in full sentences on BiPAP. Abdominal: Obese abdomen, soft, nontender to palpation, no guarding, no appreciable organomegaly Ext: ROM intact. No gross muscle atrophy, scant lower extremity edema, no contractures Neuro: Speech clear, face symmetrical and CN II-XII grossly intact with no noted focal neuro deficits Psych: Alert and oriented to person, place, time, and situation. Appropriate and pleasant affect. Assessment and Plan of Care: Acute on chronic hypoxic and hypercarbic respiratory failure Acute COPD exacerbation Influenza A infection Sepsis on arrival, secondary to influenza infection -Pulmonology following, discussed plan of care at bedside with Dr. Jones. -Continue BiPAP with IPAP of 10, EPAP 5, FiO2 35% and to be titrated accordingly to keep SpO2 equal to or greater than 90%. -Once weaned from BiPAP, patient to be placed on supplemental oxygen to maintain SPO2 equal to or greater than 90% -Telemetry monitoring. -Monitor pulse-oximetry -Duonebs scheduled 4 times daily and as needed for SOB and/or wheezing -Incentive Spirometry -Steroids: Solu-Medrol 40 mg IVP every 8 hours -Tamiflu, renal dosing at 30 mg twice daily x 5 days. Patient also started on doxycycline 100 mg twice daily pending procalcitonin results. -Continue Symbicort 160-4.5 mcg inhaler 2 puffs twice daily and Roflumilast 500 mcg daily. Elevated troponins, likely secondary to hypoxia and sepsis Paroxysmal atrial fibrillation Chronic diastolic heart failure with last known EF of 55 to 60% -Troponins trended at 0.057, 0.086, and 0.092. -Cardiology following, reviewed documentation in chart. -Telemetry monitoring -Continue aspirin 81 mg daily, amiodarone 200 mg daily, Eliquis 5 mg twice daily, Bumex 1 mg twice daily, digoxin 125 mcg daily, and secondary to statin allergy cardiology started patient on Zetia 10 mg daily. CKD stage IIIa status post right nephrectomy. Baseline creatinine 1.3, renal adjust medications consider risk versus benefits of nephrotoxic agents. Peripheral neuropathy. Continue gabapentin 200 mg BID Depression with anxiety. Continue wellbutrin 150 mg BID. Insomina. Continue trazodone 50 mg daily Data and imaging reviewed: Vital signs reviewed. Blood pressure 97/59, heart rate 75, respiratory rate 20, temp 97.2 F, and SpO2 of 98% on BiPAP with FiO2 of 35%. Morning labs reviewed. CBC showing stable macrocytic anemia with hemoglobin of 11.4 and MCV of 102.7. BMP showing persistent metabolic alkalosis with chloride of 88, bicarb of 41, and anion gap of 6 and stable renal function for known CKD with BUN of 39, creatinine 1.49 and GFR 44. Blood glucose 137. Magnesium 2.1. CODE STATUS: Full code DVT prophylaxis: Eliquis Anticipated discharge date: Pending clinical course Anticipated discharge place: Pending clinical course Patient was seen independently by Nurse Practitioner. This document was prepared using [employer] dictation software. Please allow for errors in headmaster/mistress while rare they do occur. Padilla Pham NP rendered care for this patient independently, reviewed the findings and plan as documented in the note above and agree with plan. I did n ot physically speak with or examine the patient on this date. Objective - Vital Signs Vital signs: Vital Signs Temp 97.2 F L 06/30/24 09:00 Pulse 75 06/30/24 09:00 Resp 20 06/30/24 09:00 BP 97/59 06/30/24 09:00 Pulse Ox 98 06/30/24 09:00 FiO2 35 06/30/24 09:00 Intake & Output 06/29/24 06/30/24 06/30/24 18:59 06:59 18:59 Intake Total 10 Output Total 300 400 Balance -300 -390 Weight 104.326 kg 101.7 kg Intake: IV 10 Invasive Line 1 10 Output: Urine 300 400 Other: Voiding Method Urinal # Voids 2 - Labs CBC & Chem 7: 06/30/24 07:22 06/30/24 07:22 Labs: Abnormal Lab Results - Last 24 Hours (Table) 06/29/24 06/29/24 06/29/24 Range/Units 09:24 09:24 09:24 WBC 10.7 H (3.8-10.6) k/uL RBC 3.86 L (4.30-5.90) m/uL Hgb 12.3 L (13.0-17.5) gm/dL Hct (39.0-53.0) % MCV 101.7 H (80.0-100.0) fL Neutrophils # 8.9 H (1.3-7.7) k/uL Lymphocytes # 0.4 L (1.0-4.8) k/uL APTT 21.9 L (22.0-30.0) sec ABG pCO2 (35-45) mmHg ABG pO2 (83-108) mmHg ABG HCO3 (21-25) mmol/L ABG Total CO2 (19-24) mmol/L Hemoglobin (13.0-17.5) gm/dL Sodium (137-145) mmol/L Chloride 89 L (98-107) mmol/L Carbon Dioxide 40 H (22-30) mmol/L BUN 33 H (9-20) mg/dL Creatinine 1.51 H (0.66-1.25) mg/dL Glucose 109 H (74-99) mg/dL POC Glucose (mg/dL) (70-110) mg/dL Calcium (8.4-10.2) mg/dL Troponin I (0.000-0.034) ng/mL Total Protein 6.1 L (6.3-8.2) g/dL Procalcitonin (0.02-0.50) ng/mL Influenza Type A (PCR) (Not Detectd) 06/29/24 06/29/24 06/29/24 Range/Units 09:24 09:24 12:23 WBC (3.8-10.6) k/uL RBC (4.30-5.90) m/uL Hgb (13.0-17.5) gm/dL Hct (39.0-53.0) % MCV (80.0-100.0) fL Neutrophils # (1.3-7.7) k/uL Lymphocytes # (1.0-4.8) k/uL APTT (22.0-30.0) sec ABG pCO2 77 H* (35-45) mmHg ABG pO2 82 L (83-108) mmHg ABG HCO3 44 H* (21-25) mmol/L ABG Total CO2 46 H (19-24) mmol/L Hemoglobin 11.1 L (13.0-17.5) gm/dL Sodium (137-145) mmol/L Chloride (98-107) mmol/L Carbon Dioxide (22-30) mmol/L BUN (9-20) mg/dL Creatinine (0.66-1.25) mg/dL Glucose (74-99) mg/dL POC Glucose (mg/dL) (70-110) mg/dL Calcium (8.4-10.2) mg/dL Troponin I 0.057 H* (0.000-0.034) ng/mL Total Protein (6.3-8.2) g/dL Procalcitonin (0.02-0.50) ng/mL Influenza Type A (PCR) Detected A (Not Detectd) 06/29/24 06/29/24 06/29/24 Range/Units 14:14 16:51 16:51 WBC (3.8-10.6) k/uL RBC (4.30-5.90) m/uL Hgb (13.0-17.5) gm/dL Hct (39.0-53.0) % MCV (80.0-100.0) fL Neutrophils # (1.3-7.7) k/uL Lymphocytes # (1.0-4.8) k/uL APTT (22.0-30.0) sec ABG pCO2 (35-45) mmHg ABG pO2 (83-108) mmHg ABG HCO3 (21-25) mmol/L ABG Total CO2 (19-24) mmol/L Hemoglobin (13.0-17.5) gm/dL Sodium (137-145) mmol/L Chloride (98-107) mmol/L Carbon Dioxide (22-30) mmol/L BUN (9-20) mg/dL Creatinine (0.66-1.25) mg/dL Glucose (74-99) mg/dL POC Glucose (mg/dL) (70-110) mg/dL Calcium (8.4-10.2) mg/dL Troponin I 0.086 H* 0.092 H* (0.000-0.034) ng/mL Total Protein (6.3-8.2) g/dL Procalcitonin 0.53 H (0.02-0.50) ng/mL Influenza Type A (PCR) (Not Detectd) 06/29/24 06/29/24 06/30/24 Range/Units 17:33 19:52 01:56 WBC (3.8-10.6) k/uL RBC (4.30-5.90) m/uL Hgb (13.0-17.5) gm/dL Hct (39.0-53.0) % MCV (80.0-100.0) fL Neutrophils # (1.3-7.7) k/uL Lymphocytes # (1.0-4.8) k/uL APTT (22.0-30.0) sec ABG pCO2 (35-45) mmHg ABG pO2 (83-108) mmHg ABG HCO3 (21-25) mmol/L ABG Total CO2 (19-24) mmol/L Hemoglobin (13.0-17.5) gm/dL Sodium (137-145) mmol/L Chloride (98-107) mmol/L Carbon Dioxide (22-30) mmol/L BUN (9-20) mg/dL Creatinine (0.66-1.25) mg/dL Glucose (74-99) mg/dL POC Glucose (mg/dL) 125 H 253 H 160 H (70-110) mg/dL Calcium (8.4-10.2) mg/dL Troponin I (0.000-0.034) ng/mL Total Protein (6.3-8.2) g/dL Procalcitonin (0.02-0.50) ng/mL Influenza Type A (PCR) (Not Detectd) 06/30/24 06/30/24 06/30/24 Range/Units 05:39 07:22 07:22 WBC (3.8-10.6) k/uL RBC 3.53 L (4.30-5.90) m/uL Hgb 11.4 L (13.0-17.5) gm/dL Hct 36.2 L (39.0-53.0) % MCV 102.7 H (80.0-100.0) fL Neutrophils # 8.1 H (1.3-7.7) k/uL Lymphocytes # 0.2 L (1.0-4.8) k/uL APTT (22.0-30.0) sec ABG pCO2 (35-45) mmHg ABG pO2 (83-108) mmHg ABG HCO3 (21-25) mmol/L ABG Total CO2 (19-24) mmol/L Hemoglobin (13.0-17.5) gm/dL Sodium 135 L (137-145) mmol/L Chloride 88 L (98-107) mmol/L Carbon Dioxide 41 H* (22-30) mmol/L BUN 39 H (9-20) mg/dL Creatinine 1.49 H (0.66-1.25) mg/dL Glucose 137 H (74-99) mg/dL POC Glucose (mg/dL) 143 H (70-110) mg/dL Calcium 8.3 L (8.4-10.2) mg/dL Troponin I (0.000-0.034) ng/mL Total Protein (6.3-8.2) g/dL Procalcitonin (0.02-0.50) ng/mL Influenza Type A (PCR) (Not Detectd)
[2024-07-01 00:12] LABS: Glucose,Whole Blood 157 mg/dL (70-110)
[2024-07-01 06:24] LABS: Glucose,Whole Blood 159 mg/dL (70-110)
[2024-07-01 06:53] LABS: HCT 34.2 % (39.0-53.0); HGB 10.8 gm/dL (13.0-17.5); MCH 31.6 pg (25.0-35.0); MCHC 31.7 g/dL (31.0-37.0); MCV 99.8 fL (80.0-100.0); Macrocytosis Slight; Mean Platelet Volume 7.8; Platelet Count 153 k/uL (150-450); RBC 3.42 m/uL (4.30-5.90); RDW 14.4 % (11.5-15.5); WBC 12.7 k/uL (3.8-10.6)
[2024-07-01 07:07] LABS: African American GFR (CKD) 57 (>60 ml/min/1.73 sqM); Blood Urea Nitrogen 38 mg/dL (9-20); Calcium 8.2 mg/dL (8.4-10.2); Chloride 87 mmol/L (98-107); Glucose 125 mg/dL (74-99); Magnesium 1.8 mg/dL (1.6-2.3); Non-African American GFR(CKD) 49 (>60 ml/min/1.73 sqM); Potassium 4.2 mmol/L (3.5-5.1); Sodium 132 mmol/L (137-145)
[2024-07-01 07:16] LABS: Anion Gap 2 mmol/L
[2024-07-01 07:24] LABS: Carbon Dioxide 43 mmol/L (22-30)
[2024-07-01] MEDS: EZETIMIBE 10 MG TAB PO SCH (07:44)
[2024-07-01 11:06] LABS: Glucose,Whole Blood 99 mg/dL (70-110)
[2024-07-01] MEDS: INSULIN LISPRO (HumaLOG) 100 UNIT/ML 10 mL VL SQ SCH (11:32)
[2024-07-01] MEDS: DAPAGLIFLOZIN PROPANEDIOL 10 MG TABLET PO SCH (11:47)
--- NOTE | 2024-07-01 12:15 | P.PN ---
Subjective HISTORY OF PRESENT ILLNESS: This is a 78-year-old male with a past medical history significant for coronary artery disease, chronic hypoxic respiratory failure on oxygen, obstructive sleep apnea with CPAP use, paroxysmal atrial fibrillation, cardioversion, hypertension, hyperlipidemia, obesity, and nicotine dependence. Patient follows in the office with Dr. Adler. We have been asked to see the patient in consultation for elevated troponins. Patient examined at the bedside. Patient was recently hospitalized for COPD exacerbation. Patient presented back to the hospital with a chief complaint of shortness of breath. Patient was found to be positive for influenza A. The patient denied having any fever or chills at home. He reports an occasional cough but states it is not worse than his baseline. He denied having any chest pain or pressure. DIAGNOSTICS: - EKG reveals sinus tachycardia with right bundle branch block. - Chest xray negative for acute process. COPD. - Laboratory data: WBC 8.7. Hemoglobin 11.4. Platelet count 153. Sodium 135. Potassium 4.4. BUN 39. Creatinine 1.49. Magnesium 2.1. proBNP 717. Troponin 0.057. 0.086. 0.092. - Current home cardiac medications include amiodarone 200 mg daily, Eliquis 5 mg twice a day, aspirin 81 mg daily, Bumex 1 mg twice a day. - Most recent echocardiogram obtained in April 2024 revealed ejection fraction 55 to 60% with mild TR - Cardiac catheterization history: February 2019 revealing minimal CAD and 50% lesion in the distal left circumflex 07/01/2024 Patient examined this morning. He is sitting up in the chair. He denies chest pain or pressure. He continues to report shortness of breath today that he states is unchanged from yesterday. Telemetry reveals sinus mechanism with a heart rate in the 80s. Creatinine slightly better today at 1.37. BUN 38. PHYSICAL EXAM: VITAL SIGNS: Reviewed. GENERAL: Well-developed in no acute distress. HEENT: Head is normocephalic. Pupils are equal, round. Sclerae anicteric. Mucous membranes of the mouth are moist. Neck supple. No JVD or thyromegaly LUNGS: Respirations even and unlabored. Lungs with bibasilar crackles. HEART: Regular rate and rhythm. S1 and S2 heard. ABDOMEN: Soft. Nondistended. Nontender. EXTREMITIES: Normal range of motion. No clubbing or cyanosis. Peripheral pulses intact. No lower extremity edema NEUROLOGIC: Awake and alert. Oriented x 3. ASSESSMENT: Shortness of breath Acute on chronic hypoxic respiratory failure, currently on BiPAP Acute influenza A Elevated troponins, likely type II OR secondary to oxygen supply and demand mismatch Recent hospitalization for COPD exacerbation Paroxysmal atrial fibrillation History of cardioversion, 2020 Hypertension Hyperlipidemia Obesity: BMI 32.2 Nicotine dependence PLAN: An acute coronary event has been ruled out No need to repeat echocardiogram as this was performed in April 2024 Digoxin discontinued yesterday Add Farxiga 10 mg daily Continue to monitor kidney function Continue telemetry monitoring Further recommendations pending patient course Nurse practitioner note has been reviewed by physician. Signing provider agrees with the documented findings, assessment, and plan of care documented by ENGINE LATHE TENDER as a scribe. Objective - Vital Signs Vital signs: Vital Signs Temp 98.1 F 07/01/24 11:34 Pulse 80 07/01/24 12:01 Resp 20 07/01/24 11:34 BP 132/66 07/01/24 11:34 Pulse Ox 91 L 07/01/24 11:34 FiO2 35 06/30/24 23:31 Intake & Output 06/30/24 07/01/24 07/01/24 18:59 06:59 18:59 Intake Total 500 250 Output Total 1600 2750 Balance -1100 -2750 250 Weight 103 kg Intake: IV 20 10 Invasive Line 1 20 10 Oral 480 240 Output: Urine 1600 2750 Other: Voiding Method Urinal Urinal Urinal # Voids 3 - Labs CBC & Chem 7: 07/01/24 06:17 07/01/24 06:17 Labs: Abnormal Lab Results - Last 24 Hours (Table) 06/30/24 06/30/24 06/30/24 Range/Units 16:04 17:09 23:58 WBC (3.8-10.6) k/uL RBC (4.30-5.90) m/uL Hgb (13.0-17.5) gm/dL Hct (39.0-53.0) % Sodium (137-145) mmol/L Chloride (98-107) mmol/L Carbon Dioxide (22-30) mmol/L BUN (9-20) mg/dL Creatinine (0.66-1.25) mg/dL Glucose (74-99) mg/dL POC Glucose (mg/dL) 111 H 131 H 157 H (70-110) mg/dL Calcium (8.4-10.2) mg/dL 07/01/24 07/01/24 07/01/24 Range/Units 05:50 06:17 06:17 WBC 12.7 H (3.8-10.6) k/uL RBC 3.42 L (4.30-5.90) m/uL Hgb 10.8 L (13.0-17.5) gm/dL Hct 34.2 L (39.0-53.0) % Sodium 132 L (137-145) mmol/L Chloride 87 L (98-107) mmol/L Carbon Dioxide 43 H* (22-30) mmol/L BUN 38 H (9-20) mg/dL Creatinine 1.37 H (0.66-1.25) mg/dL Glucose 125 H (74-99) mg/dL POC Glucose (mg/dL) 159 H (70-110) mg/dL Calcium 8.2 L (8.4-10.2) mg/dL
--- NOTE | 2024-07-01 13:49 | P.PN ---
Subjective Progress Note Date: 07/01/24 78-year-old male patient, admitted through emergency department for worsening shortness of breath. He has had multiple hospitalizations for the same. He was recently hospitalized and discharged on 05/25/2024 after being treated for an acute COPD exacerbation. He wears oxygen at home at 2 L/min nasal cannula and his oxygen requirements apparently been going up and while on 4 L of O2 the patient's pulse ox was 78%. Based on that, the patient came into the emergency and he was hospitalized. He has a cough, nonproductive. He was febrile upon arrival to the hospital. Based on that, the patient was admitted. His temperature was 100.9. Hemodynamically stable, slightly tachycardic, his blood work showed a white cell count of 10.7 and he was 12.3 and platelet count of 153. Sodium level is at 137, BUN 33 with a creatinine of 1.5 and a glucose of 109. The blood gas was done that showed chronic hypercapnic respiratory failure compensated with a pH of 7.37 and a pCO2 of 77 and pO2 of 82 and this was done while the patient was on a BiPAP at a pressure of 10/5 with an FiO2 of 35%. Reviewed the chest x-ray from this current admission and it is consistent with COPD. No airspace disease. No consolidation. No pneumothorax. The patient also had a viral screen that was positive for influenza A and this could have exacerbated his underlying COPD. He is currently on DuoNeb nebulized treatments [id number]. He was also started on Tamiflu. He was started on IV Solu- Medrol 40 mg every 8 hours. He also had a COVID-19 infection back in May 2024. In terms of his respiratory status, the patient COPD is advanced. He has an FEV1 of 19% of predicted. He has been maintained on a combination of Spiriva and Wixela and outpatient basis. He is also oxygen dependent. He also has a AVAPS machine at home. Other comorbidities include atrial fibrillation, macular degeneration, and renal cancer for which the patient has undergone a right nephrectomy. He has also hypertension hyperlipidemia and impaired hearing. On today's evaluation of 06/30/2024, the patient is being seen for a follow-up. The patient seems to be much more comfortable compared to yesterday. Remains on a BiPAP. On and off, he is being given brief periods of the BiPAP. At the time of my evaluation, the patient was still on the BiPAP pressure of 10 over 5 cm of water and the patient was able to generate good tidal volumes above 600 and the patient's respiratory rate is around 20. The patient remains on DuoNeb updrafts. The patient remains on Symbicort. The patient remains on IV Solu- Medrol 40 mg every 8 hours. Rest of the home medication resumed. He remains on Tamiflu. White cell count 8.7, hemoglobin 11.4 and platelet count of 153. Serum bicarb is at 41. BUN 39 with a creatinine of 1.4 and sodium levels at 135 and potassium level is at 4.4. Note that the patient has history of chronic kidney disease. No altered mentation the patient was awake and alert and communicating and following commands and answering questions appropriately. He does have chronic hypoxic and hypercapnic respiratory failure. He has a AVAPS device at home. On 07/01/2024, patient is being seen for a follow-up. Continues to have cough and congestion. Modest improvement over the past 24 hours. He is using our BiPAP device on and off during the day at a pressure of 10 over 5 cm of water. Remains on bronchodilators. Remains on steroids. Remains on Symbicort 2 puffs twice a day, DuoNeb updrafts 4 times a day, and the patient is completing course of Tamiflu. Remains on IV Solu-Medrol 40 mg every 8 hours. Oxygenation is stable on 4 L of oxygen by nasal cannula with a pulse ox of 91%. No new comp laints for now. The patient COPD is advanced with an FEV1 of 19% of predicted.Blood work from today shows a white cell count of 12.7, hemoglobin 10.8 and a platelet count of 153. BUN 38 with a creatinine 1.37 and a sodium levels at 132. Objective - Vital Signs Vital signs: Vital Signs Temp 98.0 F 07/01/24 07:35 Pulse 88 07/01/24 08:27 Resp 20 07/01/24 07:35 BP 118/66 07/01/24 07:35 Pulse Ox 90 L 07/01/24 08:10 FiO2 35 06/30/24 23:31 Intake & Output 06/30/24 07/01/24 07/01/24 18:59 06:59 18:59 Intake Total 500 250 Output Total 1600 2750 Balance -1100 -2750 250 Weight 103 kg Intake: IV 20 10 Invasive Line 1 20 10 Oral 480 240 Output: Urine 1600 2750 Other: Voiding Method Urinal Urinal Urinal # Voids 3 - Exam GENERAL EXAM: Alert, 78-year-old male, obese, currently off BiPAP HEAD: Normocephalic and atraumatic EYES: Normal reaction of pupils, equal size. NOSE: Clear with pink turbinates. THROAT: No erythema or exudates. NECK: No masses, no JVD. CHEST: No chest wall deformity. LUNGS: Equal air entry with diminished lung sounds throughout with faint end expiratory wheezes. No crackles, rhonchi or focal dullness. No conversational dyspnea or accessory muscle use while at rest. CVS: S1 and S2 normal with no audible murmur, regular rhythm. No extra heart sounds ABDOMEN: No hepatosplenomegaly, active bowel sounds, no guarding or rigidity. SPINE: No scoliosis or deformity SKIN: No rashes CENTRAL NERVOUS SYSTEM: No focal deficits, tone is normal in all 4 extremities. EXTREMITIES: There is no peripheral edema, clubbing, or cyanosis. Peripheral pulses are intact. - Labs CBC & Chem 7: 07/01/24 06:17 07/01/24 06:17 Labs: Abnormal Lab Results - Last 24 Hours (Table) 06/30/24 06/30/24 06/30/24 Range/Units 09:51 11:32 16:04 WBC (3.8-10.6) k/uL RBC (4.30-5.90) m/uL Hgb (13.0-17.5) gm/dL Hct (39.0-53.0) % VBG pH 7.26 L (7.31-7.41) VBG pCO2 92 H* (37-51) mmHg VBG HCO3 42 H (24-28) mmol/L Sodium (137-145) mmol/L Chloride (98-107) mmol/L Carbon Dioxide (22-30) mmol/L BUN (9-20) mg/dL Creatinine (0.66-1.25) mg/dL Glucose (74-99) mg/dL POC Glucose (mg/dL) 209 H 111 H (70-110) mg/dL Calcium (8.4-10.2) mg/dL 0206/30/24 07/01/24 Range/Units 17:09 23:58 05:50 WBC (3.8-10.6) k/uL RBC (4.30-5.90) m/uL Hgb (13.0-17.5) gm/dL Hct (39.0-53.0) % VBG pH (7.31-7.41) VBG pCO2 (37-51) mmHg VBG HCO3 (24-28) mmol/L Sodium (137-145) mmol/L Chloride (98-107) mmol/L Carbon Dioxide (22-30) mmol/L BUN (9-20) mg/dL Creatinine (0.66-1.25) mg/dL Glucose (74-99) mg/dL POC Glucose (mg/dL) 131 H 157 H 159 H (70-110) mg/dL Calcium (8.4-10.2) mg/dL 07/01/24 07/01/24 Range/Units 06:17 06:17 WBC 12.7 H (3.8-10.6) k/uL RBC 3.42 L (4.30-5.90) m/uL Hgb 10.8 L (13.0-17.5) gm/dL Hct 34.2 L (39.0-53.0) % VBG pH (7.31-7.41) VBG pCO2 (37-51) mmHg VBG HCO3 (24-28) mmol/L Sodium 132 L (137-145) mmol/L Chloride 87 L (98-107) mmol/L Carbon Dioxide 43 H* (22-30) mmol/L BUN 38 H (9-20) mg/dL Creatinine 1.37 H (0.66-1.25) mg/dL Glucose 125 H (74-99) mg/dL POC Glucose (mg/dL) (70-110) mg/dL Calcium 8.2 L (8.4-10.2) mg/dL Assessment and Plan Plan: Acute COPD exacerbation secondary to influenza A infection, currently on BiPAP at a pressure of 10 /5 cm of water with an FiO2 of 35%. Clinically improved and the patient seems to be less short of breath. No signs of any CO2 narcosis. The patient is currently off BiPAP. Acute on chronic hypoxic respiratory failure, secondary to above Chronic hypercapnic respiratory failure, acid-base status and blood gas is compensated. Acute influenza infection without evidence of any pneumonia. Chest x-ray shows chronic changes consistent with COPD, the patient is currently on Tamiflu Severe oxygen and steroid dependent chronic obstructive pulmonary disease, most recent FEV1 19 % of predicted, maintained on AVAPS machine at home. The patient is also oxygen dependent and the patient has been maintained on a combination of Wixela and Spiriva on outpatient basis. Chronic hypoxemic and hypercapnic respiratory, normally on 2-4 L/min nasal cannula 29/11 Chronic ongoing tobacco dependence and secondhand smoke exposure Obstructive sleep apnea, with home AVAPS machine Recent acute COVID-19 infection Obesity, with a BMI of 33 kg/m Paroxysmal atrial fibrillation, currently in normal sinus rhythm, anticoagulated on Eliquis Hypertension History of renal cancer status post right nephrectomy Plan: May continue using the BiPAP on and off during the day and continuously at nighttime Oxygen by nasal cannula at 4 L/min Chest x-ray findings, felt to be chronic Continue Tamiflu Continue combination of bronchodilators IV Solu-Medrol 40 mg every 8 hours Smoking cessation counseling performed Continue amiodarone 200 mg p.o. daily the patient is also on anticoagulation with Eliquis regarding paroxysmal atrial fibrillation. Current rhythm is sinus. Resume home medications including Wellbutrin and Desyrel Will continue to follow 3 Time with Patient: Greater than 30
--- NOTE | 2024-07-01 15:21 | P.PN ---
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 Ware, nicotine dependence, hypertension, hyperlipidemia, chronic heart failure with EF of 55 to 60%, paroxysmal atrial fibrillation on anticoagulation with Eliquis, renal cell carcinoma status post right nephrectomy with chronic kidney disease stage IIIa, macular degeneration, and peripheral neuropathy. He presented to the hospital with a chief complaint of shortness of breath. Patient recently underwent hospitalization for COPD exacerbation 06/23- 06/25 for COPD exacerbation. Patient reports going home, completing his steroids and feeling well up until about 2 days ago when he again began to develop worsening shortness of breath accompanied by a nonproductive cough. He reports that he was increasing his oxygen to 4 L but this did not even help and his shortness of breath progressively worsened accompanied by generalized bodyaches, diaphoresis and fatigue so he called EMS for transport to the hospital. He denies known fever but states he also did not check his temp at home, denies headache, lightheadedness, dizziness, chest pain, palpitations, abdominal pain, nausea, vomiting, diarrhea, or experiencing any numbness/tingling/weakness/swelling in his extremities. Upon arrival to our facility, patient underwent evaluation in the emergency department. Vital signs upon arrival show blood pressure 92/65, heart rate 51, respiratory rate 26, temp 100.9 F, and SpO2 of 92% on 4 L. EKG was completed showing sinus tachycardia at 109 bpm with moderate interference. Chest x-ray completed showing findings of COPD with hyperinflation and flattening of the diaphragm but negative for acute cardiopulmonary process. Labs completed and reviewed. CBC showing leukocytosis with WBC count of 10.7, hemoglobin of 12.3, platelet count of 153 with mild macrocytosis with elevated MCV of 101.7. Coagulation profile showing a low PTT of 21.9. BMP showing metabolic alkalosis with chloride of 89, bicarb of 40, and anion gap of 8 and renal function consistent with known stage III CKD with BUN of 33, creatinine of 1.51, GFR 44. Blood glucose was 109. Lactic acid was 1.1. Calcium 8.8. Magnesium 1.8. Liver profile unremarkable. Troponin was elevated at 0.057 and proBNP 717. Patient initially requiring 4 L O2 in the emergency department however there were concerns for increasing lethargy with increased work of breathing and patient was placed on continuous BiPAP. Patient's mentation significantly improved shortly after being placed on BiPAP. Currently respirations even, regular, and unlabored on BiPAP and patient able to speak in full sentences at this time. Patient admitted under our services with consultation to cardiology for elevated troponins and pulmonology for acute on chronic respiratory failure. Physical exam: Patient seen and fully evaluated at bedside this morning. He was sitting up in chair currently on 4 L O2 via nasal cannula. Patient currently short of breath and mildly hypoxic with SpO2 of 88% but improving as he just returned from ambulating to restroom. Patient and RN at bedside reports that patient's oxygen saturations decreased down to 80% with ambulation on 4 L walking to the bathroom but is recovering with rest. Patient reports continued dry cough. Lungs diminished with diffuse expiratory wheezes. Vital signs reviewed and stable. General: Nontoxic and appears stated age. Derm: Skin warm and dry, normal coloration for ethnicity. Head: Atraumatic, normocephalic and symmetric. Eyes: EOM's intact, no lid lag, and anicteric sclera Mouth: no lip lesions, mucus membranes moist Cardiovascular: regular rate and rhythm with normal S1S2, systolic murmur, positive posterior tibial pulses bilaterally, and cap refill < 2 seconds. Lungs: Respirations even, regular, and unlabored on 4 L O2 via nasal cannula. Lungs diminished with soft expiratory wheezes. No rhonchi, rales, or crackles noted this morning. Abdominal: Obese abdomen, soft, nontender to palpation, no guarding, no appreciable organomegaly Ext: ROM intact. No gross muscle atrophy, scant lower extremity edema, no contractures Neuro: Speech clear, face symmetrical and CN II-XII grossly intact with no noted focal neuro deficits Psych: Alert and oriented to person, place, time, and situation. Appropriate and pleasant affect. Assessment and Plan of Care: Acute on chronic hypoxic and hypercarbic respiratory failure Acute COPD exacerbation Influenza A infection Sepsis on arrival, secondary to influenza infection -Pulmonology following, discussed plan of care at bedside with Dr. Huerta. -Continue BiPAP with IPAP of 10, EPAP 5, FiO2 35% and to be titrated accordingly to keep SpO2 equal to or greater than 90%. -Once weaned from BiPAP, patient to be placed on supplemental oxygen to maintain SPO2 equal to or greater than 90% -Telemetry monitoring. -Monitor pulse-oximetry -Duonebs scheduled 4 times daily and as needed for SOB and/or wheezing -Incentive Spirometry -Steroids: Solu-Medrol 40 mg IVP every 8 hours -Tamiflu, renal dosing at 30 mg twice daily x 5 days and doxycycline 100 mg twice daily. -Continue Symbicort 160-4.5 mcg inhaler 2 puffs twice daily and Roflumilast 500 mcg daily. Elevated troponins, likely secondary to hypoxia and sepsis Paroxysmal atrial fibrillation Chronic diastolic heart failure with last known EF of 55 to 60% -Troponins trended at 0.057, 0.086, and 0.092. -Cardiology following, reviewed documentation in chart. -Telemetry monitoring -Continue aspirin 81 mg daily, amiodarone 200 mg daily, Eliquis 5 mg twice daily, Bumex 1 mg twice daily, digoxin 125 mcg daily, and secondary to statin allergy cardiology started patient on Zetia 10 mg daily. CKD stage IIIa status post right nephrectomy. Baseline creatinine 1.3, renal adjust medications consider risk versus benefits of nephrotoxic agents. Peripheral neuropathy. Continue gabapentin 200 mg BID Depression with anxiety. Continue wellbutrin 150 mg BID. Insomina. Continue trazodone 50 mg daily Data and imaging reviewed: -Vital signs reviewed. Blood pressure 132/66, heart rate 80, respiratory rate 20, temp 98.1 F, and SpO2 of 91% on 4 L. -Morning labs reviewed. CBC showing leukocytosis with elevated WBC count of 12.7 and stable normocytic anemia with hemoglobin of 10.8. BMP showing hyponatremia with sodium of 132 and metabolic alkalosis with chloride of 87, bicarb of 43, and anion gap of 2. Renal function consistent with baseline with BUN of 38, creatinine 1.37, GFR 49. Blood glucose 125. Magnesium 1.8. CODE STATUS: Full code DVT prophylaxis: Eliquis Anticipated discharge date: Pending clinical course Anticipated discharge place: Pending clinical course Patient was seen independently by Nurse Practitioner. This document was prepared using [employer] dictation software. Please allow for errors in x ray physician while rare they do occur. Padilla Pham NP rendered care for this patient independently, reviewed the findings and plan as documented in the note above and agree with plan. I did not physically speak with or examine the patient on this date. Objective - Vital Signs Vital signs: Vital Signs Temp 98.0 F 07/01/24 07:35 Pulse 88 07/01/24 08:27 Resp 20 07/01/24 07:35 BP 118/66 07/01/24 07:35 Pulse Ox 90 L 07/01/24 08:10 FiO2 35 06/30/24 23:31 Intake & Output 06/30/24 07/01/24 07/01/24 18:59 06:59 18:59 Intake Total 500 10 Output Total 1600 2750 Balance -1100 -2750 10 Weight 103 kg Intake: IV 20 10 Invasive Line 1 20 10 Oral 480 Output: Urine 1600 2750 Other: Voiding Method Urinal Urinal Urinal # Voids 3 - Labs CBC & Chem 7: 07/01/24 06:17 07/01/24 06:17 Labs: Abnormal Lab Results - Last 24 Hours (Table) 06/30/24 06/30/24 06/30/24 Range/Units 07:22 09:12 09:51 WBC (3.8-10.6) k/uL RBC (4.30-5.90) m/uL Hgb (13.0-17.5) gm/dL Hct (39.0-53.0) % VBG pH 7.26 L (7.31-7.41) VBG pCO2 92 H* (37-51) mmHg VBG HCO3 42 H (24-28) mmol/L Sodium 135 L (137-145) mmol/L Chloride 88 L (98-107) mmol/L Carbon Dioxide 41 H* (22-30) mmol/L BUN 39 H (9-20) mg/dL Creatinine 1.49 H (0.66-1.25) mg/dL Glucose 137 H (74-99) mg/dL POC Glucose (mg/dL) 145 H (70-110) mg/dL Calcium 8.3 L (8.4-10.2) mg/dL 06/30/24 06/30/24 06/30/24 Range/Units 11:32 16:04 17:09 WBC (3.8-10.6) k/uL RBC (4.30-5.90) m/uL Hgb (13.0-17.5) gm/dL Hct (39.0-53.0) % VBG pH (7.31-7.41) VBG pCO2 (37-51) mmHg VBG HCO3 (24-28) mmol/L Sodium (137-145) mmol/L Chloride (98-107) mmol/L Carbon Dioxide (22-30) mmol/L BUN (9-20) mg/dL Creatinine (0.66-1.25) mg/dL Glucose (74-99) mg/dL POC Glucose (mg/dL) 209 H 111 H 131 H (70-110) mg/dL Calcium (8.4-10.2) mg/dL 06/30/24 07/01/24 07/01/24 Range/Units 23:58 05:50 06:17 WBC (3.8-10.6) k/uL RBC (4.30-5.90) m/uL Hgb (13.0-17.5) gm/dL Hct (39.0-53.0) % VBG pH (7.31-7.41) VBG pCO2 (37-51) mmHg VBG HCO3 (24-28) mmol/L Sodium 132 L (137-145) mmol/L Chloride 87 L (98-107) mmol/L Carbon Dioxide 43 H* (22-30) mmol/L BUN 38 H (9-20) mg/dL Creatinine 1.37 H (0.66-1.25) mg/dL Glucose 125 H (74-99) mg/dL POC Glucose (mg/dL) 157 H 159 H (70-110) mg/dL Calcium 8.2 L (8.4-10.2) mg/dL 07/01/24 Range/Units 06:17 WBC 12.7 H (3.8-10.6) k/uL RBC 3.42 L (4.30-5.90) m/uL Hgb 10.8 L (13.0-17.5) gm/dL Hct 34.2 L (39.0-53.0) % VBG pH (7.31-7.41) VBG pCO2 (37-51) mmHg VBG HCO3 (24-28) mmol/L Sodium (137-145) mmol/L Chloride (98-107) mmol/L Carbon Dioxide (22-30) mmol/L BUN (9-20) mg/dL Creatinine (0.66-1.25) mg/dL Glucose (74-99) mg/dL POC Glucose (mg/dL) (70-110) mg/dL Calcium (8.4-10.2) mg/dL
[2024-07-01 16:08] LABS: Glucose,Whole Blood 140 mg/dL (70-110)
[2024-07-01 19:59] LABS: Glucose,Whole Blood 139 mg/dL (70-110)
[2024-07-01] MEDS: SODIUM CHLORIDE 0.65% NASAL SPRAY 44 ML BTL NASAL PRN (23:20)
[2024-07-01] MEDS: ACETAMINOPHEN TAB 325 MG TAB PO PRN (23:42)
[2024-07-02] MEDS: IPRATROPIUM-ALBUTEROL 3 ML NEB INHALATION PRN (00:12)
[2024-07-02 05:55] LABS: Glucose,Whole Blood 155 mg/dL (70-110)
[2024-07-02 06:53] LABS: African American GFR (CKD) 55 (>60 ml/min/1.73 sqM); Blood Urea Nitrogen 40 mg/dL (9-20); Calcium 8.5 mg/dL (8.4-10.2); Chloride 88 mmol/L (98-107); Glucose 120 mg/dL (74-99); Non-African American GFR(CKD) 48 (>60 ml/min/1.73 sqM); Potassium 4.7 mmol/L (3.5-5.1); Sodium 135 mmol/L (137-145)
[2024-07-02 06:59] LABS: Anion Gap 4 mmol/L
[2024-07-02 07:09] LABS: Carbon Dioxide 43 mmol/L (22-30)
--- NOTE | 2024-07-02 10:16 | P.PN ---
Subjective Progress Note Date: 07/02/24 HISTORY OF PRESENT ILLNESS: This is a 78-year-old male with a past medical history significant for coronary artery disease, chronic hypoxic respiratory failure on oxygen, obstructive sleep apnea with CPAP use, paroxysmal atrial fibrillation, cardioversion, hypertension, hyperlipidemia, obesity, and nicotine dependence. Patient follows in the office with Dr. Adler. We have been asked to see the patient in consultation for elevated troponins. Patient examined at the bedside. Patient was recently hospitalized for COPD exacerbation. Patient presented back to the hospital with a chief complaint of shortness of breath. Patient was found to be positive for influenza A. The patient denied having any fever or chills at home. He reports an occasional cough but states it is not worse than his basel ine. He denied having any chest pain or pressure. DIAGNOSTICS: - EKG reveals sinus tachycardia with right bundle branch block. - Chest xray negative for acute process. COPD. - Laboratory data: WBC 8.7. Hemoglobin 11.4. Platelet count 153. Sodium 135. Potassium 4.4. BUN 39. Creatinine 1.49. Magnesium 2.1. proBNP 717. Troponin 0.057. 0.086. 0.092. - Current home cardiac medications include amiodarone 200 mg daily, Eliquis 5 mg twice a day, aspirin 81 mg daily, Bumex 1 mg twice a day. - Most recent echocardiogram obtained in April 2024 revealed ejection fraction 55 to 60% with mild TR - Cardiac catheterization history: February 2019 revealing minimal CAD and 50% lesion in the distal left circumflex 07/01/2024 Patient examined this morning. He is sitting up in the chair. He denies chest pain or pressure. He continues to report shortness of breath today that he states is unchanged from yesterday. Telemetry reveals sinus mechanism with a heart rate in the 80s. Creatinine slightly better today at 1.37. BUN 38. 07/02 Patient is seen and examined. Patient complains of difficulty in breathing and not feeling any better since he arrived. No chest pain at this time. No fever or chills. Yesterday, Farxiga was added and the previous day digoxin was discontinued. Blood pressure 122/66, heart rate in the 60s to 80s, pulse ox 98% on room air. Repeat blood work reveals sodium 135, potassium 4.7, chloride 88, CO2 43, BUN 40 creatinine 1.41. Telemetry is sinus rhythm with right BBB. PHYSICAL EXAM: VITAL SIGNS: Reviewed. GENERAL: Well-developed in no acute distress. HEENT: Head is normocephalic. Pupils are equal, round. Sclerae anicteric. Mucous membranes of the mouth are moist. Neck supple. No JVD or thyromegaly LUNGS: Respirations even and unlabored. Lungs with bibasilar crackles. HEART: Regular rate and rhythm. S1 and S2 heard. ABDOMEN: Soft. Nondistended. Nontender. EXTREMITIES: No clubbing or cyanosis. Peripheral pulses intact. Trace lower extremity edema NEUROLOGIC: Awake and alert. Oriented x 3. ASSESSMENT: Shortness of breath Acute on chronic hypoxic respiratory failure initially requiring BiPAP, now on nasal cannula Acute influenza A Elevated troponins, likely type II [place] secondary to oxygen supply and demand mismatch Recent hospitalization for COPD exacerbation Paroxysmal atrial fibrillation History of cardioversion, 2020 Hypertension Hyperlipidemia Obesity: BMI 32.2 Nicotine dependence PLAN: An acute coronary event has been ruled out No need to repeat echocardiogram as this was performed in April 2024 Continue Farxiga 10 mg daily Continue oral Bumex 1 mg twice daily Continue to monitor kidney function Continue telemetry monitoring Further recommendations pending patient course Nurse practitioner note has been reviewed by physician. Signing provider agrees with the documented findings, assessment, and plan of care documented by LINING STAMPER as a scribe. , Objective - Vital Signs Vital signs: Vital Signs Temp 98.5 F 07/02/24 03:57 Pulse 84 07/02/24 04:06 Resp 18 07/02/24 03:57 BP 122/66 07/02/24 03:57 Pulse Ox 98 07/02/24 03:57 FiO2 35 07/01/24 15:35 Intake & Output 07/01/24 07/02/24 07/02/24 18:59 06:59 18:59 Intake Total 730 540 Output Total 1525 1100 Balance -795 -560 Intake: IV 10 Invasive Line 1 10 Oral 720 540 Output: Urine 1525 1100 Other: Voiding Method Urinal Urinal # Voids 0 - Labs CBC & Chem 7: 07/01/24 06:17 07/02/24 05:55 Labs: Abnormal Lab Results - Last 24 Hours (Table) 07/01/24 07/01/24 07/02/24 Range/Units 16:06 19:57 05:54 Sodium (137-145) mmol/L Chloride (98-107) mmol/L Carbon Dioxide (22-30) mmol/L BUN (9-20) mg/dL Creatinine (0.66-1.25) mg/dL Glucose (74-99) mg/dL POC Glucose (mg/dL) 140 H 139 H 155 H (70-110) mg/dL 07/02/24 Range/Units 05:55 Sodium 135 L (137-145) mmol/L Chloride 88 L (98-107) mmol/L Carbon Dioxide 43 H* (22-30) mmol/L BUN 40 H (9-20) mg/dL Creatinine 1.41 H (0.66-1.25) mg/dL Glucose 120 H (74-99) mg/dL POC Glucose (mg/dL) (70-110) mg/dL
[2024-07-02 11:22] LABS: Glucose,Whole Blood 116 mg/dL (70-110)
--- NOTE | 2024-07-02 14:15 | P.PN ---
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 He presented to the hospital with a chief complaint of shortness of breath. Patient recently underwent hospitalization for COPD exacerbation 06/23- 06/25 for COPD exacerbation. Patient reports going home, completing his steroids and feeling well up until about 2 days ago when he again began to develop worsening shortness of breath accompanied by a nonproductive cough. He reports that he was increasing his oxygen to 4 L but this did not even help and his shortness of breath progressively worsened accompanied by generalized bodyaches, diaphoresis and fatigue so he called EMS for transport to the hospital. He denies known fever but states he also did not check his temp at home, denies headache, lightheadedness, dizziness, chest pain, palpitations, abdominal pain, nausea, vomiting, diarrhea, or experiencing any numbness/tingling/weakness/swelling in his extremities. Upon arrival to our facility, patient underwent evaluation in the emergency department. Vital signs upon arrival show blood pressure 92/65, heart rate 51, respiratory rate 26, temp 100.9 F, and SpO2 of 92% on 4 L. EKG was completed showing sinus tachycardia at 109 bpm with moderate interference. Chest x-ray completed showing findings of COPD with hyperinflation and flattening of the diaphragm but negative for acute cardiopulmonary process. Labs completed and reviewed. CBC showing leukocytosis with WBC count of 10.7, hemoglobin of 12.3, platelet count of 153 with mild macrocytosis with elevated MCV of 101.7. Coagulation profile showing a low PTT of 21.9. BMP showing metabolic alkalosis with chloride of 89, bicarb of 40, and anion gap of 8 and renal function consistent with known stage III CKD with BUN of 33, creatinine of 1.51, GFR 44. Blood glucose was 109. Lactic acid was 1.1. Calcium 8.8. Magnesium 1.8. Liver profile unremarkable. Troponin was elevated at 0.057 and proBNP 717. Patient initially requiring 4 L O2 in the emergency department however there were concerns for increasing lethargy with increased work of breathing and patient was placed on continuous BiPAP. Patient's mentation significantly improved shortly after being placed on BiPAP. Currently respirations even, regular, and unlabored on BiPAP and patient able to speak in full sentences at this time. Patient admitted under our services with consultation to cardiology for elevated troponins and pulmonology for acute on chronic respiratory failure. Physical exam: Patient seen and fully evaluated at bedside at 10:30 AM. He was sitting up in chair currently on 4 L O2 via nasal cannula. Respirations currently even, regular, and unlabored at rest. Shortness of breath appears to have improved and patient is agreeable that it is improving but states he continues to have a difficult time with cough and quickly desaturates with any exertion. He denies having any headache, lightheadedness, dizziness, chest pain, palpitations, della sea, or vomiting. Vital signs reviewed and stable. General: Nontoxic and appears stated age. Derm: Skin warm and dry, normal coloration for ethnicity. Head: Atraumatic, normocephalic and symmetric. Eyes: EOM's intact, no lid lag, and anicteric sclera Mouth: no lip lesions, mucus membranes moist Cardiovascular: regular rate and rhythm with normal S1S2, systolic murmur, positive posterior tibial pulses bilaterally, and cap refill < 2 seconds. Lungs: Respirations even, regular, and unlabored on 4 L O2 via nasal cannula. Lungs diminished with diffuse expiratory wheezes. No rhonchi, rales, or crackles noted this morning. Abdominal: Obese abdomen, soft, nontender to palpation, no guarding, no appreciable organomegaly Ext: ROM intact. No gross muscle atrophy, scant lower extremity edema, no contractures Neuro: Speech clear, face symmetrical and CN II-XII grossly intact with no noted focal neuro deficits Psych: Alert and oriented to person, place, time, and situation. Appropriate and pleasant affect. Assessment and Plan of Care: Acute on chronic hypoxic and hypercarbic respiratory failure Acute COPD exacerbation Influenza A infection Sepsis on arrival, secondary to influenza infection -Pulmonology following, reviewed documentation in chart -Continue supplemental oxygen titrate as needed to maintain SPO2 equal to or greater than 90%. Currently on 4 L O2 via nasal cannula. -Telemetry monitoring. -Monitor pulse-oximetry -Duonebs scheduled 4 times daily and as needed for SOB and/or wheezing -Incentive Spirometry -Steroids: Solu-Medrol 40 mg IVP every 8 hours -Tamiflu, renal dosing at 30 mg twice daily x 5 days and doxycycline 100 mg twice daily. -Continue Symbicort 160-4.5 mcg inhaler 2 puffs twice daily and Roflumilast 500 mcg daily. Elevated troponins, likely secondary to hypoxia and sepsis Paroxysmal atrial fibrillation Chronic diastolic heart failure with last known EF of 55 to 60% -Troponins trended at 0.057, 0.086, and 0.092. -Cardiology following, reviewed documentation in chart. -Telemetry monitoring -Continue aspirin 81 mg daily, amiodarone 200 mg daily, Eliquis 5 mg twice daily, Bumex 1 mg twice daily, digoxin 125 mcg daily, and secondary to statin allergy cardiology started patient on Zetia 10 mg daily. CKD stage IIIa status post right nephrectomy. Baseline creatinine 1.3, renal adjust medications consider risk versus benefits of nephrotoxic agents. Peripheral neuropathy. Continue gabapentin 200 mg BID Depression with anxiety. Continue wellbutrin 150 mg BID. Insomina. Continue trazodone 50 mg daily Data and imaging reviewed: -Vital signs reviewed. Blood pressure 123/66, heart rate 75, respiratory rate 18, temp 97.9 F, and SpO2 of 95% on 4 L -Morning labs reviewed. Sodium is 135, chloride 88, bicarb 43, and anion gap of 4 with renal function stable with BUN of 40, creatinine of 1.41, GFR 48. Blood glucose 120. CODE STATUS: Full code DVT prophylaxis: Eliquis Anticipated discharge date: Pending clinical course, case management also working on placement in SNF once medically optimized for discharge Anticipated discharge place: SNF Patient was seen independently by Nurse Practitioner. This document was prepared using [employer] dictation software. Please allow for errors in plasma specialist while rare they do occur. Padilla Pham NP rendered care for this patient independently, reviewed the findings and plan as documented in the note above and agree with plan. I did not physically speak with or examine the patient on this date. Objective - Vital Signs Vital signs: Vital Signs Temp 97.9 F 07/02/24 08:00 Pulse 72 07/02/24 12:00 Resp 18 07/02/24 12:00 BP 130/76 07/02/24 12:00 Pulse Ox 96 07/02/24 12:00 FiO2 35 07/01/24 15:35 Intake & Output 07/01/24 07/02/24 07/02/24 18:59 06:59 18:59 Intake Total 730 540 780 Output Total 1525 1100 1300 Balance -795 -560 -520 Intake: IV 10 Invasive Line 1 10 Oral 720 540 780 Output: Urine 1525 1100 1300 Other: Voiding Method Urinal Urinal # Voids 0 - Labs CBC & Chem 7: 07/01/24 06:17 07/02/24 05:55 Labs: Abnormal Lab Results - Last 24 Hours (Table) 07/01/24 07/01/24 07/02/24 Range/Units 16:06 19:57 05:54 Sodium (137-145) mmol/L Chloride (98-107) mmol/L Carbon Dioxide (22-30) mmol/L BUN (9-20) mg/dL Creatinine (0.66-1.25) mg/dL Glucose (74-99) mg/dL POC Glucose (mg/dL) 140 H 139 H 155 H (70-110) mg/dL 07/02/24 07/02/24 Range/Units 05:55 11:19 Sodium 135 L (137-145) mmol/L Chloride 88 L (98-107) mmol/L Carbon Dioxide 43 H* (22-30) mmol/L BUN 40 H (9-20) mg/dL Creatinine 1.41 H (0.66-1.25) mg/dL Glucose 120 H (74-99) mg/dL POC Glucose (mg/dL) 116 H (70-110) mg/dL
[2024-07-02 16:25] LABS: Glucose,Whole Blood 98 mg/dL (70-110)
--- NOTE | 2024-07-02 17:49 | P.PN ---
Subjective Progress Note Date: 07/02/24 78-year-old male patient, admitted through emergency department for worsening shortness of breath. He has had multiple hospitalizations for the same. He was recently hospitalized and discharged on 05/25/2024 after being treated for an acute COPD exacerbation. He wears oxygen at home at 2 L/min nasal cannula and his oxygen requirements apparently been going up and while on 4 L of O2 the patient's pulse ox was 78%. Based on that, the patient came into the emergency and he was hospitalized. He has a cough, nonproductive. He was febrile upon arrival to the hospital. Based on that, the patient was admitted. His temperature was 100.9. Hemodynamically stable, slightly tachycardic, his blood work showed a white cell count of 10.7 and he was 12.3 and platelet count of 153. Sodium level is at 137, BUN 33 with a creatinine of 1.5 and a glucose of 109. The blood gas was done that showed chronic hypercapnic respiratory failure compensated with a pH of 7.37 and a pCO2 of 77 and pO2 of 82 and this was done while the patient was on a BiPAP at a pressure of 10/5 with an FiO2 of 35%. Reviewed the chest x-ray from this current admission and it is consistent with COPD. No airspace disease. No consolidation. No pneumothorax. The patient also had a viral screen that was positive for influenza A and this could have exacerbated his underlying COPD. He is currently on DuoNeb nebulized treatments [id number]. He was also started on Tamiflu. He was started on IV Solu- Medrol 40 mg every 8 hours. He also had a COVID-19 infection back in May 2024. In terms of his respiratory status, the patient COPD is advanced. He has an FEV1 of 19% of predicted. He has been maintained on a combination of Spiriva and Wixela and outpatient basis. He is also oxygen dependent. He also has a AVAPS machine at home. Other comorbidities include atrial fibrillation, macular degeneration, and renal cancer for which the patient has undergone a right nephrectomy. He has also hypertension hyperlipidemia and impaired hearing. On today's evaluation of 06/30/2024, the patient is being seen for a follow-up. The patient seems to be much more comfortable compared to yesterday. Remains on a BiPAP. On and off, he is being given brief periods of the BiPAP. At the time of my evaluation, the patient was still on the BiPAP pressure of 10 over 5 cm of water and the patient was able to generate good tidal volumes above 600 and the patient's respiratory rate is around 20. The patient remains on DuoNeb updrafts. The patient remains on Symbicort. The patient remains on IV Solu- Medrol 40 mg every 8 hours. Rest of the home medication resumed. He remains on Tamiflu. White cell count 8.7, hemoglobin 11.4 and platelet count of 153. Serum bicarb is at 41. BUN 39 with a creatinine of 1.4 and sodium levels at 135 and potassium level is at 4.4. Note that the patient has history of chronic kidney disease. No altered mentation the patient was awake and alert and communicating and following commands and answering questions appropriately. He does have chronic hypoxic and hypercapnic respiratory failure. He has a AVAPS device at home. On 07/01/2024, patient is being seen for a follow-up. Continues to have cough and congestion. Modest improvement over the past 24 hours. He is using our BiPAP device on and off during the day at a pressure of 10 over 5 cm of water. Remains on bronchodilators. Remains on steroids. Remains on Symbicort 2 puffs twice a day, DuoNeb updrafts 4 times a day, and the patient is completing course of Tamiflu. Remains on IV Solu-Medrol 40 mg every 8 hours. Oxygenation is stable on 4 L of oxygen by nasal cannula with a pulse ox of 91%. No new compl aints for now. The patient COPD is advanced with an FEV1 of 19% of predicted.Blood work from today shows a white cell count of 12.7, hemoglobin 10.8 and a platelet count of 153. BUN 38 with a creatinine 1.37 and a sodium levels at 132. The patient is seen today July 02, 2024 in follow-up on the care unit. He is currently sitting up in the chair at the bedside. Awake and alert in no acute distress. Still with a loose nonproductive cough. He remains on DuoNeb inhalations, Symbicort, Solu-Medrol. Anticoagulated with Eliquis. Procalcitonin was 0.53. He is being treated for influenza A and had recently been treated for COVID infection. Sodium 135. Potassium 4.7. Bicarb 43. BUN 40. Creatinine 1.41. Glucose 120. Containing O2 saturations in the 90s on 4 L/min per nasal cannula. He is been afebrile. Hemodynamically stable. Objective - Vital Signs Vital signs: Vital Signs Temp 97.9 F 07/02/24 15:48 Pulse 84 07/02/24 16:31 Resp 22 07/02/24 15:48 BP 134/69 07/02/24 15:48 Pulse Ox 90 L 07/02/24 15:48 FiO2 35 07/01/24 15:35 Intake & Output 07/01/24 07/02/24 07/02/24 18:59 06:59 18:59 Intake Total 730 540 780 Output Total 1525 1100 1650 Balance -795 -560 -870 Intake: IV 10 Invasive Line 1 10 Oral 720 540 780 Output: Urine 1525 1100 1650 Other: Voiding Method Urinal Urinal # Voids 0 - Exam GENERAL EXAM: Alert, 78-year-old male, up in a chair, on 4 L nasal cannula, fairly comfortable in no apparent distress. HEAD: Normocephalic. EYES: Normal reaction of pupils, equal size. NOSE: Clear with pink turbinates. THROAT: No erythema or exudates. NECK: No masses, no JVD. CHEST: No chest wall deformity. LUNGS: Equal air entry with bilateral wheeze, few scattered rhonchi. CVS: S1 and S2 normal with no audible murmur, regular rhythm. ABDOMEN: No hepatosplenomegaly, normal bowel sounds, no guarding or rigidity. SPINE: No scoliosis or deformity SKIN: No rashes CENTRAL NERVOUS SYSTEM: No focal deficits, tone is normal in all 4 extremities. EXTREMITIES: There is no peripheral edema. No clubbing, no cyanosis. Peripheral pulses are intact. - Labs CBC & Chem 7: 07/01/24 06:17 07/02/24 05:55 Labs: Abnormal Lab Results - Last 24 Hours (Table) 07/01/24 07/02/24 07/02/24 Range/Units 19:57 05:54 05:55 Sodium 135 L (137-145) mmol/L Chloride 88 L (98-107) mmol/L Carbon Dioxide 43 H* (22-30) mmol/L BUN 40 H (9-20) mg/dL Creatinine 1.41 H (0.66-1.25) mg/dL Glucose 120 H (74-99) mg/dL POC Glucose (mg/dL) 139 H 155 H (70-110) mg/dL 07/02/24 Range/Units 11:19 Sodium (137-145) mmol/L Chloride (98-107) mmol/L Carbon Dioxide (22-30) mmol/L BUN (9-20) mg/dL Creatinine (0.66-1.25) mg/dL Glucose (74-99) mg/dL POC Glucose (mg/dL) 116 H (70-110) mg/dL Assessment and Plan Assessment: Acute COPD exacerbation secondary to influenza A infection, currently on 4 L/min per nasal cannula. Clinically improved and the patient seems to be less short of breath. No signs of any CO2 narcosis. The patient is currently off BiPAP Acute influenza A infection. Chest x-ray shows chronic changes consistent with COPD, the patient is currently on Tamiflu Acute on chronic hypoxic respiratory failure, secondary to above Chronic hypercapnic respiratory failure, acid-base status and blood gas is compensated. Severe oxygen and steroid dependent chronic obstructive pulmonary disease, most recent FEV1 19 % of predicted, maintained on AVAPS machine at home. The patient is also oxygen dependent and the patient has been maintained on a combination of Wixela and Spiriva on outpatient basis. Chronic hypoxemic and hypercapnic respiratory, normally on 2-4 L/min nasal cannula 29/11 Chronic ongoing tobacco dependence and secondhand smoke exposure Obstructive sleep apnea, with home AVAPS machine Recent acute COVID-19 infection Obesity, with a BMI of 33 kg/m Paroxysmal atrial fibrillation, currently in normal sinus rhythm, anticoagulated on Eliquis Hypertension History of renal cancer status post right nephrectomy Plan: The patient was seen and evaluated Labs and medications reviewed Continue bronchodilators, steroids Continue Tamiflu Empiric antibiotics Titrate the FiO2 as tolerated Again educated regarding smoking cessation Anticoagulated with Eliquis We will continue to follow I have personally seen and examined the patient, performed the documentation and the assessment and plan as written. Number of minutes spent on the visit: 10 Dictation was produced using [employer] dictation software. Please excuse any grammatical, word or spelling errors.
[2024-07-02 20:32] LABS: Glucose,Whole Blood 143 mg/dL (70-110)
[2024-07-03 06:17] LABS: Glucose,Whole Blood 125 mg/dL (70-110)
[2024-07-03 07:17] LABS: HCT 38.5 % (39.0-53.0); HGB 11.6 gm/dL (13.0-17.5); Hypochromasia Moderate; MCH 30.9 pg (25.0-35.0); MCHC 30.2 g/dL (31.0-37.0); MCV 102.4 fL (80.0-100.0); Macrocytosis Slight; Mean Platelet Volume 7.2; Platelet Count 188 k/uL (150-450); RBC 3.76 m/uL (4.30-5.90); WBC 11.5 k/uL (3.8-10.6)
[2024-07-03 07:30] LABS: ALT 31 U/L (4-49); AST 33 U/L (17-59); African American GFR (CKD) 64 (>60 ml/min/1.73 sqM); Albumin 3.1 g/dL (3.5-5.0); Alkaline Phosphatase 72 U/L (38-126); Blood Urea Nitrogen 38 mg/dL (9-20); Calcium 8.7 mg/dL (8.4-10.2); Chloride 86 mmol/L (98-107); Glucose 90 mg/dL (74-99); Non-African American GFR(CKD) 55 (>60 ml/min/1.73 sqM); Sodium 136 mmol/L (137-145); Total Bilirubin 0.3 mg/dL (0.2-1.3); Total Protein 5.6 g/dL (6.3-8.2)
[2024-07-03 07:36] LABS: Anion Gap 4 mmol/L
[2024-07-03 07:57] LABS: Carbon Dioxide 46 mmol/L (22-30)
[2024-07-03 11:48] LABS: Glucose,Whole Blood 95 mg/dL (70-110)
--- NOTE | 2024-07-03 13:01 | P.PN ---
Subjective Progress Note Date: 07/03/24 Hospital Course: Patient is a very pleasant 78-year-old male with a past medical history of COPD with chronic hypoxic respiratory failure home oxygen dependent on 2 L follows with dispatch officer Dr. Ware, nicotine dependence, hypertension, hyperlipidemia, chronic heart failure with EF of 55 to 60%, paroxysmal atrial fibrillation on anticoagulation with Eliquis, renal cell carcinoma status post right nephrectomy with chronic kidney disease stage IIIa, macular degeneration, and peripheral neuropathy. He presented to the hospital with a chief complaint of shortness of breath. Patient recently underwent hospitalization for COPD exacerbation 06/23- 06/25 for COPD exacerbation. Patient reports going home, completing his steroids and feeling well up until about 2 days ago when he again began to develop worsening shortness of breath accompanied by a nonproductive cough. He reports that he was increasing his oxygen to 4 L but this did not even help and his shortness of breath progressively worsened accompanied by generalized bodyaches, diaphoresis and fatigue so he called EMS for transport to the hospital. Upon arrival to our facility, patient underwent evaluation in the emergency department. Vital signs upon arrival show blood pressure 92/65, heart rate 51, respiratory rate 26, temp 100.9 F, and SpO2 of 92% on 4 L. EKG was completed showing sinus tachycardia at 109 bpm with moderate interference. Chest x-ray completed showing findings of COPD with hyperinflation and flattening of the diaphragm but negative for acute cardiopulmonary process. Labs completed and reviewed. CBC showing leukocytosis with WBC count of 10.7, hemoglobin of 12.3, platelet count of 153 with mild macrocytosis with elevated MCV of 101.7. Coagulation profile showing a low PTT of 21.9. BMP showing metabolic alkalosis with chloride of 89, bicarb of 40, and anion gap of 8 and renal function consistent with known stage III CKD with BUN of 33, creatinine of 1.51, GFR 44. Blood glucose was 109. Lactic acid was 1.1. Calcium 8.8. Magnesium 1.8. Liver profile unremarkable. Troponin was elevated at 0.057 and proBNP 717. Patient initially requiring 4 L O2 in the emergency department however there were concerns for increasing lethargy with increased work of breathing and patient was placed on continuous BiPAP. Patient's mentation significantly improved shortly after being placed on BiPAP. Currently respirations even, regular, and unlabored on BiPAP and patient able to speak in full sentences at this time. Patient admitted under our services with consultation to cardiology for elevated troponins and pulmonology for acute on chronic respiratory failure. Physical exam: Patient seen and fully evaluated at bedside this morning. He was sitting up in the chair and currently on 4 L O2 via nasal cannula. Patient reports being frustrated stating his breathing is not better and he is very stuffy and plugged . Oxygen has been placed on humidified oxygen and patient has saline nasal flush/lubricant at bedside. Patient also reports having a headache yesterday but does admit that headache has improved this morning. Patient denies having any further complaints or concerns at this time. Vital signs reviewed and stable. General: Nontoxic and appears stated age. Derm: Skin warm and dry, normal coloration for ethnicity. Head: Atraumatic, normocephalic and symmetric. Eyes: EOM's intact, no lid lag, and anicteric sclera Mouth: no lip lesions, mucus membranes moist Cardiovascular: regular rate and rhythm with normal S1S2, systolic murmur, positive posterior tibial pulses bilaterally, and cap refill < 2 seconds. Lungs: Respirations even, regular, and unlabored on 4 L O2 via nasal cannula. Lungs diminished with diffuse expiratory wheezes. No rhonchi, rales, or crackles noted this morning. Abdominal: Obese abdomen, soft, nontender to palpation, no guarding, no appreciable organomegaly Ext: ROM intact. No gross muscle atrophy, scant lower extremity edema, no contractures Neuro: Speech clear, face symmetrical and CN II-XII grossly intact with no noted focal neuro deficits Psych: Alert and oriented to person, place, time, and situation. Appropriate and pleasant affect. Assessment and Plan of Care: Acute on chronic hypoxic and hypercarbic respiratory failure Acute COPD exacerbation Influenza A infection Sepsis on arrival, secondary to influenza infection -Pulmonology following, reviewed documentation in chart -Continue supplemental oxygen titrate as needed to maintain SPO2 equal to or greater than 90%. Currently on 4 L O2 via nasal cannula. -Telemetry monitoring. -Monitor pulse-oximetry -Duonebs scheduled 4 times daily and as needed for SOB and/or wheezing -Incentive Spirometry -Steroids: Solu-Medrol 40 mg IVP every 8 hours -Tamiflu, renal dosing at 30 mg twice daily x 5 days and doxycycline 100 mg twice daily. (Day 09/10) -Continue Symbicort 160-4.5 mcg inhaler 2 puffs twice daily and Roflumilast 500 mcg daily. Elevated troponins, likely secondary to hypoxia and sepsis Paroxysmal atrial fibrillation Chronic diastolic heart failure with last known EF of 55 to 60% -Troponins trended at 0.057, 0.086, and 0.092. -Cardiology following, reviewed documentation in chart. -Telemetry monitoring -Continue aspirin 81 mg daily, amiodarone 200 mg daily, Eliquis 5 mg twice daily, Bumex 1 mg twice daily, digoxin 125 mcg daily, and secondary to statin allergy cardiology started patient on Zetia 10 mg daily. CKD stage IIIa status post right nephrectomy. Baseline creatinine 1.3, renal adjust medications consider risk versus benefits of nephrotoxic agents. Peripheral neuropathy. Continue gabapentin 200 mg BID Depression with anxiety. Continue wellbutrin 150 mg BID. Insomina. Continue trazodone 50 mg daily Data and imaging reviewed: -Vital signs reviewed. Blood pressure 119/65, heart rate 89, respiratory rate 18, temp 98.1 F, and SpO2 of 92% on 4 L. -Morning labs reviewed. CBC showing leukocytosis with WBC count of 11.5, and macrocytic anemia with hemoglobin of 11.6 and MCV of 102.4. BMP showing persistent metabolic alkalosis with chloride of 86, bicarb of 46, and anion gap of 4 along with prerenal azotemia with BUN of 38, creatinine 1.25, GFR 55. Blood glucose was 90. Magnesium 2.0. Liver profile unremarkable. Albumin was low at 3.1. CODE STATUS: Full code DVT prophylaxis: Eliquis Anticipated discharge date: Pending clinical course, case management also working on placement in SNF once medically optimized for discharge Anticipated discharge place: SNF Patient was seen independently by Nurse Practitioner. This document was prepared using [employer] dictation software. Please allow for errors in pega developer while rare they do occur. Padilla Pham NP rendered care for this patient independently, reviewed the findings and plan as documented in the note above and agree with plan. I did not physically speak with or examine the patient on this date. Objective - Vital Signs Vital signs: Vital Signs Temp 98.1 F 07/03/24 04:00 Pulse 76 07/03/24 04:19 Resp 18 07/03/24 04:00 BP 119/65 07/03/24 04:00 Pulse Ox 92 L 07/03/24 04:00 FiO2 35 07/03/24 00:15 Intake & Output 07/02/24 07/03/24 07/03/24 18:59 06:59 18:59 Intake Total 1020 240 Output Total 1650 1100 Balance -630 -1100 240 Weight 102.8 kg Intake: Oral 1020 240 Output: Urine 1650 1100 Other: Voiding Method Urinal - Labs CBC & Chem 7: 07/03/24 06:04 07/03/24 06:04 Labs: Abnormal Lab Results - Last 24 Hours (Table) 07/02/24 07/02/24 07/03/24 Range/Units 11:19 20:28 06:04 WBC 11.5 H (3.8-10.6) k/uL RBC 3.76 L (4.30-5.90) m/uL Hgb 11.6 L (13.0-17.5) gm/dL Hct 38.5 L (39.0-53.0) % MCV 102.4 H (80.0-100.0) fL MCHC 30.2 L (31.0-37.0) g/dL Sodium (137-145) mmol/L Chloride (98-107) mmol/L Carbon Dioxide (22-30) mmol/L BUN (9-20) mg/dL POC Glucose (mg/dL) 116 H 143 H (70-110) mg/dL Total Protein (6.3-8.2) g/dL Albumin (3.5-5.0) g/dL 07/03/24 07/03/24 Range/Units 06:04 06:15 WBC (3.8-10.6) k/uL RBC (4.30-5.90) m/uL Hgb (13.0-17.5) gm/dL Hct (39.0-53.0) % MCV (80.0-100.0) fL MCHC (31.0-37.0) g/dL Sodium 136 L (137-145) mmol/L Chloride 86 L (98-107) mmol/L Carbon Dioxide 46 H* (22-30) mmol/L BUN 38 H (9-20) mg/dL POC Glucose (mg/dL) 125 H (70-110) mg/dL Total Protein 5.6 L (6.3-8.2) g/dL Albumin 3.1 L (3.5-5.0) g/dL
--- NOTE | 2024-07-03 13:48 | P.PN ---
Subjective Progress Note Date: 07/03/24 HISTORY OF PRESENT ILLNESS: This is a 78-year-old male with a past medical history significant for coronary artery disease, chronic hypoxic respiratory failure on oxygen, obstructive sleep apnea with CPAP use, paroxysmal atrial fibrillation, cardioversion, hypertension, hyperlipidemia, obesity, and nicotine dependence. Patient follows in the office with Dr. Adler. We have been asked to see the patient in consultation for elevated troponins. Patient examined at the bedside. Patient was recently hospitalized for COPD exacerbation. Patient presented back to the hospital with a chief complaint of shortness of breath. Patient was found to be positive for influenza A. The patient denied having any fever or chills at home. He reports an occasional cough but states it is not worse than his basel ine. He denied having any chest pain or pressure. DIAGNOSTICS: - EKG reveals sinus tachycardia with right bundle branch block. - Chest xray negative for acute process. COPD. - Laboratory data: WBC 8.7. Hemoglobin 11.4. Platelet count 153. Sodium 135. Potassium 4.4. BUN 39. Creatinine 1.49. Magnesium 2.1. proBNP 717. Troponin 0.057. 0.086. 0.092. - Current home cardiac medications include amiodarone 200 mg daily, Eliquis 5 mg twice a day, aspirin 81 mg daily, Bumex 1 mg twice a day. - Most recent echocardiogram obtained in April 2024 revealed ejection fraction 55 to 60% with mild TR - Cardiac catheterization history: February 2019 revealing minimal CAD and 50% lesion in the distal left circumflex 07/01/2024 Patient examined this morning. He is sitting up in the chair. He denies chest pain or pressure. He continues to report shortness of breath today that he states is unchanged from yesterday. Telemetry reveals sinus mechanism with a heart rate in the 80s. Creatinine slightly better today at 1.37. BUN 38. 07/02 Patient is seen and examined. Patient complains of difficulty in breathing and not feeling any better since he arrived. No chest pain at this time. No fever or chills. Yesterday, Farxiga was added and the previous day digoxin was discontinued. Blood pressure 122/66, heart rate in the 60s to 80s, pulse ox 98% on room air. Repeat blood work reveals sodium 135, potassium 4.7, chloride 88, CO2 43, BUN 40 creatinine 1.41. Telemetry is sinus rhythm with right BBB. 07/03 Patient seen and examined. Patient states that he is still having significant shortness of breath. He has difficulty walking short distance. He also complains of decreased appetite and nasal congestion. He denies chest pain. Patient is currently on 4 L nasal cannula with pulse ox 93%, blood pressure 120/61, heart rate 82. Repeat blood work reveals WBC 11.5, hemoglobin 11.6. Sodium 136, potassium 4, CO2 46, BUN 38, creatinine 1.25. We did not make any medication changes yesterday. PHYSICAL EXAM: VITAL SIGNS: Reviewed. GENERAL: Well-developed in no acute distress. HEENT: Head is normocephalic. Pupils are equal, round. Sclerae anicteric. Mucous membranes of the mouth are moist. Neck supple. No JVD or thyromegaly LUNGS: Respirations even and unlabored. Lungs with bibasilar crackles. HEART: Regular rate and rhythm. S1 and S2 heard. ABDOMEN: Soft. Nondistended. Nontender. EXTREMITIES: No clubbing or cyanosis. Peripheral pulses intact. Trace lower extremity edema NEUROLOGIC: Awake and alert. Oriented x 3. ASSESSMENT: Shortness of breath Acute on chronic hypoxic respiratory failure initially requiring BiPAP, now on nasal cannula Acute influenza A Elevated troponins, likely type II MN secondary to oxygen supply and demand mismatch Recent hospitalization for COPD exacerbation Paroxysmal atrial fibrillation History of cardioversion, 2020 Hypertension Hyperlipidemia Obesity: BMI 32.2 Nicotine dependence PLAN: An acute coronary event has been ruled out No need to repeat echocardiogram as this was performed in April 2024 Continue Farxiga 10 mg daily Continue oral Bumex 1 mg twice daily Continue to monitor kidney function No further cardiac workup at this time Cardiology will sign off this case and follow on an as-needed basis. Please r econsult for any new concerns. Patient may follow-up in the office in one to [address] Adler. Nurse practitioner note has been reviewed by physician. Signing provider agrees with the documented findings, assessment, and plan of care documented by SAP DEVELOPER as a scribe. , Objective - Vital Signs Vital signs: Vital Signs Temp 97.7 F 07/03/24 08:00 Pulse 84 07/03/24 09:24 Resp 20 07/03/24 08:00 BP 120/61 07/03/24 08:00 Pulse Ox 93 L 07/03/24 09:13 FiO2 35 07/03/24 00:15 Intake & Output 07/02/24 07/03/24 07/03/24 18:59 06:59 18:59 Intake Total 1020 240 Output Total 1650 1100 400 Balance -630 -1100 -160 Weight 102.8 kg Intake: Oral 1020 240 Output: Urine 1650 1100 400 Other: Voiding Method Urinal - Labs CBC & Chem 7: 07/03/24 06:04 07/03/24 06:04 Labs: Abnormal Lab Results - Last 24 Hours (Table) 07/02/24 07/02/24 07/03/24 Range/Units 11:19 20:28 06:04 WBC 11.5 H (3.8-10.6) k/uL RBC 3.76 L (4.30-5.90) m/uL Hgb 11.6 L (13.0-17.5) gm/dL Hct 38.5 L (39.0-53.0) % MCV 102.4 H (80.0-100.0) fL MCHC 30.2 L (31.0-37.0) g/dL Sodium (137-145) mmol/L Chloride (98-107) mmol/L Carbon Dioxide (22-30) mmol/L BUN (9-20) mg/dL POC Glucose (mg/dL) 116 H 143 H (70-110) mg/dL Total Protein (6.3-8.2) g/dL Albumin (3.5-5.0) g/dL 07/03/24 07/03/24 Range/Units 06:04 06:15 WBC (3.8-10.6) k/uL RBC (4.30-5.90) m/uL Hgb (13.0-17.5) gm/dL Hct (39.0-53.0) % MCV (80.0-100.0) fL MCHC (31.0-37.0) g/dL Sodium 136 L (137-145) mmol/L Chloride 86 L (98-107) mmol/L Carbon Dioxide 46 H* (22-30) mmol/L BUN 38 H (9-20) mg/dL POC Glucose (mg/dL) 125 H (70-110) mg/dL Total Protein 5.6 L (6.3-8.2) g/dL Albumin 3.1 L (3.5-5.0) g/dL
--- NOTE | 2024-07-03 15:45 | P.PN ---
Subjective Progress Note Date: 07/03/24 Principal diagnosis: Acute exacerbation of COPD secondary to influenza A infection and acute on chronic hypoxic respiratory failure 78-year-old male patient, admitted through emergency department for worsening shortness of breath. He has had multiple hospitalizations for the same. He was recently hospitalized and discharged on 05/25/2024 after being treated for an acute COPD exacerbation. He wears oxygen at home at 2 L/min nasal cannula and his oxygen requirements apparently been going up and while on 4 L of O2 the patient's pulse ox was 78%. Based on that, the patient came into the emergency and he was hospitalized. He has a cough, nonproductive. He was febrile upon arrival to the hospital. Based on that, the patient was admitted. His temperature was 100.9. Hemodynamically stable, slightly tachycardic, his blood work showed a white cell count of 10.7 and he was 12.3 and platelet count of 153. Sodium level is at 137, BUN 33 with a creatinine of 1.5 and a glucose of 109. The blood gas was done that showed chronic hypercapnic respiratory failure compensated with a pH of 7.37 and a pCO2 of 77 and pO2 of 82 and this was done while the patient was on a BiPAP at a pressure of 10/5 with an FiO2 of 35%. Reviewed the chest x-ray from this current admission and it is consistent with COPD. No airspace disease. No consolidation. No pneumothorax. The patient also had a viral screen that was positive for influenza A and this could have exacerbated his underlying COPD. He is currently on DuoNeb nebulized treatments [id number]. He was also started on Tamiflu. He was started on IV Solu- Medrol 40 mg every 8 hours. He also had a COVID-19 infection back in May 2024. In terms of his respiratory status, the patient COPD is advanced. He has an FEV1 of 19% of predicted. He has been maintained on a combination of Spiriva and Wixela and outpatient basis. He is also oxygen dependent. He also has a AVAPS machine at home. Other comorbidities include atrial fibrillation, macular degeneration, and renal cancer for which the patient has undergone a right nephrectomy. He has also hypertension hyperlipidemia and impaired hearing. On today's evaluation of 06/30/2024, the patient is being seen for a follow-up. The patient seems to be much more comfortable compared to yesterday. Remains on a BiPAP. On and off, he is being given brief periods of the BiPAP. At the time of my evaluation, the patient was still on the BiPAP pressure of 10 over 5 cm of water and the patient was able to generate good tidal volumes above 600 and the patient's respiratory rate is around 20. The patient remains on DuoNeb updrafts. The patient remains on Symbicort. The patient remains on IV Solu- Medrol 40 mg every 8 hours. Rest of the home medication resumed. He remains on Tamiflu. White cell count 8.7, hemoglobin 11.4 and platelet count of 153. Serum bicarb is at 41. BUN 39 with a creatinine of 1.4 and sodium levels at 135 and potassium level is at 4.4. Note that the patient has history of chronic kidney disease. No altered mentation the patient was awake and alert and communicating and following commands and answering questions appropriately. He does have chronic hypoxic and hypercapnic respiratory failure. He has a AVAPS device at home. On 07/01/2024, patient is being seen for a follow-up. Continues to have cough and congestion. Modest improvement over the past 24 hours. He is using our BiPAP device on and off during the day at a pressure of 10 over 5 cm of water. Remains on bronchodilators. Remains on steroids. Remains on Symbicort 2 puffs twice a day, DuoNeb updrafts 4 times a day, and the patient is completing course of Tamiflu. Remains on IV Solu-Medrol 40 mg every 8 hours. Oxygenation is stable on 4 L of oxygen by nasal cannula with a pulse ox of 91%. No new complaints for now. The patient COPD is advanced with an FEV1 of 19% of predicted.Blood work from today shows a white cell count of 12.7, hemoglobin 10.8 and a platelet count of 153. BUN 38 with a creatinine 1.37 and a sodium levels at 132. The patient is seen today July 02, 2024 in follow-up on the care unit. He is currently sitting up in the chair at the bedside. Awake and alert in no acute distress. Still with a loose nonproductive cough. He remains on DuoNeb inhalations, Symbicort, Solu-Medrol. Anticoagulated with Eliquis. Procalcitonin was 0.53. He is being treated for influenza A and had recently been treated for COVID infection. Sodium 135. Potassium 4.7. Bicarb 43. BUN 40. Creatinine 1.41. Glucose 120. Containing O2 saturations in the 90s on 4 L/min per nasal cannula. He is been afebrile. Hemodynamically stable. Seen today on 07/03/2024, patient remains quite symptomatic continues to have cough wheezing and shortness of breath patient is on maximal therapy including oxygen, bronchodilators, steroids, and on Tamiflu. Patient does not believe that he is improving although on physical examination he does have diminished breath sounds bilaterally with minimal wheezing more so on forced expiratory m aneuver. Labs showed WBC count of 11.5 hemoglobin 11.6 electrolytes are normal except for elevated bicarb of 46 which is expected BUN is 38 creatinine 1.25. Chest x-ray on admission showed mostly COPD, no acute process was noted, no evidence of pneumonia. Objective - Vital Signs Vital signs: Vital Signs Temp 98.3 F 07/03/24 12:00 Pulse 89 07/03/24 12:00 Resp 20 07/03/24 14:00 BP 128/53 07/03/24 12:00 Pulse Ox 93 L 07/03/24 12:00 FiO2 35 07/03/24 00:15 Intake & Output 07/02/24 07/03/24 07/03/24 18:59 06:59 18:59 Intake Total 1020 240 Output Total 1650 1100 1200 Balance -630 -1100 -960 Weight 102.8 kg Intake: Oral 1020 240 Output: Urine 1650 1100 1200 Other: Voiding Method Urinal - Exam GENERAL EXAM: Revealed 78-year-old white male on 4 L nasal cannula seems to be comfortable HEAD: Normocephalic. Atraumatic EYES: Normal reaction of pupils, equal size. NOSE: Clear with pink turbinates. THROAT: No erythema or exudates. NECK: No masses, no JVD. CHEST: No chest wall deformity. LUNGS: Diminished breath sound bilaterally some wheezing on forced expiratory maneuver CVS: S1 and S2 normal with no audible murmur, regular rhythm. ABDOMEN: No hepatosplenomegaly, normal bowel sounds, no guarding or rigidity. SKIN: No rashes CENTRAL NERVOUS SYSTEM: Alert and oriented x 3 no gross focal deficit EXTREMITIES: No clubbing edema or cyanosis - Labs CBC & Chem 7: 07/03/24 06:04 07/03/24 06:04 Labs: Abnormal Lab Results - Last 24 Hours (Table) 07/02/24 07/03/24 07/03/24 Range/Units 20:28 06:04 06:04 WBC 11.5 H (3.8-10.6) k/uL RBC 3.76 L (4.30-5.90) m/uL Hgb 11.6 L (13.0-17.5) gm/dL Hct 38.5 L (39.0-53.0) % MCV 102.4 H (80.0-100.0) fL MCHC 30.2 L (31.0-37.0) g/dL Sodium 136 L (137-145) mmol/L Chloride 86 L (98-107) mmol/L Carbon Dioxide 46 H* (22-30) mmol/L BUN 38 H (9-20) mg/dL POC Glucose (mg/dL) 143 H (70-110) mg/dL Total Protein 5.6 L (6.3-8.2) g/dL Albumin 3.1 L (3.5-5.0) g/dL 07/03/24 Range/Units 06:15 WBC (3.8-10.6) k/uL RBC (4.30-5.90) m/uL Hgb (13.0-17.5) gm/dL Hct (39.0-53.0) % MCV (80.0-100.0) fL MCHC (31.0-37.0) g/dL Sodium (137-145) mmol/L Chloride (98-107) mmol/L Carbon Dioxide (22-30) mmol/L BUN (9-20) mg/dL POC Glucose (mg/dL) 125 H (70-110) mg/dL Total Protein (6.3-8.2) g/dL Albumin (3.5-5.0) g/dL Assessment and Plan Assessment: Impression: Acute COPD exacerbation secondary to influenza A infection, currently on 4 L/min per nasal cannula. Clinically improved and the patient seems to be less short of breath. Acute influenza A infection. Chest x-ray shows chronic changes consistent with COPD, the patient is currently on Tamiflu Acute on chronic hypoxic respiratory failure, secondary to above Chronic hypercapnic respiratory failure, acid-base status and blood gas is compensated. Severe oxygen and steroid dependent chronic obstructive pulmonary disease, most recent FEV1 19 % of predicted, maintained on AVAPS machine at home. The patient is also oxygen dependent and the patient has been maintained on a combination of Wixela and Spiriva on outpatient basis. Chronic hypoxemic and hypercapnic respiratory, normally on 2-4 L/min nasal cannula 29/11 Chronic ongoing tobacco dependence and secondhand smoke exposure Obstructive sleep apnea, with home AVAPS machine Recent acute COVID-19 infection Obesity, with a BMI of 33 kg/m Paroxysmal atrial fibrillation, currently in normal sinus rhythm, anticoagulated on Eliquis Hypertension History of renal cancer status post right nephrectomy Recommendation: Continue present supportive care measures Continue bronchodilators and continue Solu-Medrol Continue Tamiflu a total of 5-day course Continue empiric antibiotics Titrate FiO2 accordingly Continue cardiac meds including Eliquis Will continue to follow Not ready for discharge planning remains relatively ill. Time with Patient: Less than 30
[2024-07-03 16:48] LABS: Glucose,Whole Blood 119 mg/dL (70-110)
[2024-07-03 20:07] LABS: Glucose,Whole Blood 127 mg/dL (70-110)
[2024-07-04 05:58] LABS: Glucose,Whole Blood 132 mg/dL (70-110)
[2024-07-04 07:04] LABS: HCT 41.2 % (39.0-53.0); HGB 12.4 gm/dL (13.0-17.5); Hypochromasia Marked; MCV 103.2 fL (80.0-100.0); Macrocytosis Slight; Mean Platelet Volume 7.2; Platelet Count 205 k/uL (150-450); RBC 3.99 m/uL (4.30-5.90); RDW 13.9 % (11.5-15.5); WBC 12.3 k/uL (3.8-10.6)
[2024-07-04 07:08] LABS: ALT 32 U/L (4-49); AST 25 U/L (17-59); African American GFR (CKD) 58 (>60 ml/min/1.73 sqM); Albumin 3.3 g/dL (3.5-5.0); Alkaline Phosphatase 77 U/L (38-126); Blood Urea Nitrogen 35 mg/dL (9-20); Calcium 8.7 mg/dL (8.4-10.2); Chloride 87 mmol/L (98-107); Glucose 97 mg/dL (74-99); Non-African American GFR(CKD) 50 (>60 ml/min/1.73 sqM); Potassium 4.3 mmol/L (3.5-5.1); Sodium 137 mmol/L (137-145); Total Bilirubin 0.4 mg/dL (0.2-1.3)
[2024-07-04 07:15] LABS: Anion Gap 4 mmol/L
[2024-07-04 07:34] LABS: Carbon Dioxide 46 mmol/L (22-30)
--- NOTE | 2024-07-04 10:36 | P.PN ---
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 He presented to the hospital with a chief complaint of shortness of breath. Patient recently underwent hospitalization for COPD exacerbation 06/23- 06/25 for COPD exacerbation. Patient reports going home, completing his steroids and feeling well up until about 2 days ago when he again began to develop worsening shortness of breath accompanied by a nonproductive cough. He reports that he was increasing his oxygen to 4 L but this did not even help and his shortness of breath progressively worsened accompanied by generalized bodyaches, diaphoresis and fatigue so he called EMS for transport to the hospital. Upon arrival to our facility, patient underwent evaluation in the emergency department. Vital signs upon arrival show blood pressure 92/65, heart rate 51, respiratory rate 26, temp 100.9 F, and SpO2 of 92% on 4 L. EKG was completed showing sinus tachycardia at 109 bpm with moderate interference. Chest x-ray completed showing findings of COPD with hyperinflation and flattening of the diaphragm but negative for acute cardiopulmonary process. Labs completed and reviewed. CBC showing leukocytosis with WBC count of 10.7, hemoglobin of 12.3, platelet count of 153 with mild macrocytosis with elevated MCV of 101.7. Coagulation profile showing a low PTT of 21.9. BMP showing metabolic alkalosis with chloride of 89, bicarb of 40, and anion gap of 8 and renal function consistent with known stage III CKD with BUN of 33, creatinine of 1.51, GFR 44. Blood glucose was 109. Lactic acid was 1.1. Calcium 8.8. Magnesium 1.8. Liver profile unremarkable. Troponin was elevated at 0.057 and proBNP 717. Patient initially requiring 4 L O2 in the emergency department however there were concerns for increasing lethargy with increased work of breathing and patient was placed on continuous BiPAP. Patient's mentation significantly improved shortly after being placed on BiPAP. At time of admission respirations even, regular, and unlabored on BiPAP and patient able to speak in full sentences at this time. Patient admitted under our services with consultation to cardiology for elevated troponins and pulmonology for acute on chronic respi ratory failure. Physical exam: Patient seen and fully evaluated at bedside this morning. Patient reporting persistent headache secondary to nasal stuffiness and congestion. Discussed with patient that we will order a one-time dose for migraine cocktail with Benadryl, Compazine, and Toradol. Patient reports breathing remains difficult. Discussed with patient that it was noted that he has not been using his CPAP or our BiPAP nightly and informed him that his bicarb is trending upwards each day and it is important to wear the BiPAP nightly. Patient verbalized understanding and stated he is in agreement to wear tonight. Vital signs reviewed and stable. General: Nontoxic and appears stated age. Derm: Skin warm and dry, normal coloration for ethnicity. Head: Atraumatic, normocephalic and symmetric. Eyes: EOM's intact, no lid lag, and anicteric sclera Mouth: no lip lesions, mucus membranes moist Cardiovascular: regular rate and rhythm with normal S1S2, systolic murmur, positive posterior tibial pulses bilaterally, and cap refill < 2 seconds. Lungs: Respirations even, regular, and unlabored on 4 L O2 via nasal cannula. Lungs diminished with diffuse expiratory wheezes. No rhonchi, rales, or crackles noted this morning. Abdominal: Obese abdomen, soft, nontender to palpation, no guarding, no appreciable organomegaly Ext: ROM intact. No gross muscle atrophy, scant lower extremity edema, no contractures Neuro: Speech clear, face symmetrical and CN II-XII grossly intact with no noted focal neuro deficits Psych: Alert and oriented to person, place, time, and situation. Appropriate and pleasant affect. 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 -Continue supplemental oxygen titrate as needed to maintain SPO2 equal to or greater than 90%. Currently on 4 L O2 via nasal cannula. -Telemetry monitoring. -Monitor pulse-oximetry -Duonebs scheduled 4 times daily and as needed for SOB and/or wheezing -Incentive Spirometry -Steroids: Solu-Medrol 40 mg IVP every 8 hours -Completed 5-day course of Tamiflu on 07/03/2024. -Continue Symbicort 160-4.5 mcg inhaler 2 puffs twice daily and Roflumilast 500 mcg daily. Elevated troponins, likely secondary to hypoxia and sepsis Paroxysmal atrial fibrillation Chronic diastolic heart failure with last known EF of 55 to 60% -Troponins trended at 0.057, 0.086, and 0.092. -Cardiology evaluated ruling out an acute coronary event stating no need to repeat echocardiogram clearing patient from cardiac perspective recommending outpatient follow-up with Dr. Adler in 2 weeks. -Telemetry monitoring -Continue aspirin 81 mg daily, amiodarone 200 mg daily, Eliquis 5 mg twice daily, Bumex 1 mg twice daily, digoxin 125 mcg daily, and secondary to statin allergy cardiology started patient on Zetia 10 mg daily. CKD stage IIIa status post right nephrectomy. Baseline creatinine 1.3, renal adjust medications consider risk versus benefits of nephrotoxic agents. Peripheral neuropathy. Continue gabapentin 200 mg BID Depression with anxiety. Continue wellbutrin 150 mg BID. Insomina. Continue trazodone 50 mg daily Data and imaging reviewed: -Vital signs reviewed. Blood pressure 124/58, heart rate 90, respiratory rate 16, temp 97.7 F, and SpO2 of 92% on 4 L. -Morning labs reviewed. CBC showing leukocytosis with WBC count of 12.3 macrocytic anemia with hemoglobin of 12.4 and MCV of 103.2. BMP showing persistent metabolic alkalosis with worsening bicarb with chloride of 87, bicarb of 46, and anion gap of 4 continued elevated but stable renal function with BUN of 35, creatinine 1.35, and GFR of 50. Blood glucose was 97. Magnesium 2.0. Liver profile unremarkable with the exception of hypoalbuminemia with albumin of 3.3. CODE STATUS: Full code DVT prophylaxis: Eliquis Anticipated discharge date: Pending clinical course, case management also wor jasmyne on placement in SNF once medically optimized for discharge Anticipated discharge place: SNF Patient was seen independently by Nurse Practitioner. This document was prepared using [employer] dictation software. Please allow for errors in deputy sheriff bailiff while rare they do occur. Padilla Pham NP rendered care for this patient independently, reviewed the findings and plan as documented in the note above and agree with plan. I did not physically speak with or examine the patient on this date. Objective - Vital Signs Vital signs: Vital Signs Temp 98.2 F 07/04/24 04:00 Pulse 84 07/04/24 04:00 Resp 18 07/04/24 04:00 BP 119/68 07/04/24 04:00 Pulse Ox 95 07/04/24 04:00 FiO2 35 07/03/24 00:15 Intake & Output 07/03/24 07/04/24 07/04/24 18:59 06:59 18:59 Intake Total 240 Output Total 1700 950 Balance -1460 -950 Weight 102.8 kg Intake: Oral 240 Output: Urine 1700 950 Other: Voiding Method Urinal - Labs CBC & Chem 7: 07/04/24 06:23 07/04/24 06:23 Labs: Abnormal Lab Results - Last 24 Hours (Table) 07/03/24 07/03/24 07/03/24 Range/Units 06:04 16:46 20:01 WBC (3.8-10.6) k/uL RBC (4.30-5.90) m/uL Hgb (13.0-17.5) gm/dL MCV (80.0-100.0) fL MCHC (31.0-37.0) g/dL Sodium 136 L (137-145) mmol/L Chloride 86 L (98-107) mmol/L Carbon Dioxide 46 H* (22-30) mmol/L BUN 38 H (9-20) mg/dL Creatinine (0.66-1.25) mg/dL POC Glucose (mg/dL) 119 H 127 H (70-110) mg/dL Total Protein 5.6 L (6.3-8.2) g/dL Albumin 3.1 L (3.5-5.0) g/dL 07/04/24 07/04/24 07/04/24 Range/Units 05:56 06:23 06:23 WBC 12.3 H (3.8-10.6) k/uL RBC 3.99 L (4.30-5.90) m/uL Hgb 12.4 L (13.0-17.5) gm/dL MCV 103.2 H (80.0-100.0) fL MCHC 30.0 L (31.0-37.0) g/dL Sodium (137-145) mmol/L Chloride 87 L (98-107) mmol/L Carbon Dioxide 46 H* (22-30) mmol/L BUN 35 H (9-20) mg/dL Creatinine 1.35 H (0.66-1.25) mg/dL POC Glucose (mg/dL) 132 H (70-110) mg/dL Total Protein 6.0 L (6.3-8.2) g/dL Albumin 3.3 L (3.5-5.0) g/dL
[2024-07-04 11:24] LABS: Glucose,Whole Blood 96 mg/dL (70-110)
[2024-07-04] MEDS: KETOROLAC 15 MG/ML 1 ML VIAL IVP STA (11:29)
[2024-07-04] MEDS: diphenhydrAMINE 50 MG/ML 1 ML VIAL IVP STA (11:29)
[2024-07-04] MEDS: PROCHLORPERAZINE INJ 10 MG/2 ML VIAL IVP STA (11:31)
--- NOTE | 2024-07-04 16:36 | P.PN ---
Subjective Progress Note Date: 07/04/24 Principal diagnosis: Acute exacerbation of COPD secondary to influenza A infection and acute on chronic hypoxic respiratory failure 78-year-old male patient, admitted through emergency department for worsening shortness of breath. He has had multiple hospitalizations for the same. He was recently hospitalized and discharged on 05/25/2024 after being treated for an acute COPD exacerbation. He wears oxygen at home at 2 L/min nasal cannula and his oxygen requirements apparently been going up and while on 4 L of O2 the patient's pulse ox was 78%. Based on that, the patient came into the emergency and he was hospitalized. He has a cough, nonproductive. He was febrile upon arrival to the hospital. Based on that, the patient was admitted. His temperature was 100.9. Hemodynamically stable, slightly tachycardic, his blood work showed a white cell count of 10.7 and he was 12.3 and platelet count of 153. Sodium level is at 137, BUN 33 with a creatinine of 1.5 and a glucose of 109. The blood gas was done that showed chronic hypercapnic respiratory failure compensated with a pH of 7.37 and a pCO2 of 77 and pO2 of 82 and this was done while the patient was on a BiPAP at a pressure of 10/5 with an FiO2 of 35%. Reviewed the chest x-ray from this current admission and it is consistent with COPD. No airspace disease. No consolidation. No pneumothorax. The patient also had a viral screen that was positive for influenza A and this could have exacerbated his underlying COPD. He is currently on DuoNeb nebulized treatments [id number]. He was also started on Tamiflu. He was started on IV Solu- Medrol 40 mg every 8 hours. He also had a COVID-19 infection back in May 2024. In terms of his respiratory status, the patient COPD is advanced. He has an FEV1 of 19% of predicted. He has been maintained on a combination of Spiriva and Wixela and outpatient basis. He is also oxygen dependent. He also has a AVAPS machine at home. Other comorbidities include atrial fibrillation, macular degeneration, and renal cancer for which the patient has undergone a right nephrectomy. He has also hypertension hyperlipidemia and impaired hearing. On today's evaluation of 06/30/2024, the patient is being seen for a follow-up. The patient seems to be much more comfortable compared to yesterday. Remains on a BiPAP. On and off, he is being given brief periods of the BiPAP. At the time of my evaluation, the patient was still on the BiPAP pressure of 10 over 5 cm of water and the patient was able to generate good tidal volumes above 600 and the patient's respiratory rate is around 20. The patient remains on DuoNeb updrafts. The patient remains on Symbicort. The patient remains on IV Solu- Medrol 40 mg every 8 hours. Rest of the home medication resumed. He remains on Tamiflu. White cell count 8.7, hemoglobin 11.4 and platelet count of 153. Serum bicarb is at 41. BUN 39 with a creatinine of 1.4 and sodium levels at 135 and potassium level is at 4.4. Note that the patient has history of chronic kidney disease. No altered mentation the patient was awake and alert and communicating and following commands and answering questions appropriately. He does have chronic hypoxic and hypercapnic respiratory failure. He has a AVAPS device at home. On 07/01/2024, patient is being seen for a follow-up. Continues to have cough and congestion. Modest improvement over the past 24 hours. He is using our BiPAP device on and off during the day at a pressure of 10 over 5 cm of water. Remains on bronchodilators. Remains on steroids. Remains on Symbicort 2 puffs twice a day, DuoNeb updrafts 4 times a day, and the patient is completing course of Tamiflu. Remains on IV Solu-Medrol 40 mg every 8 hours. Oxygenation is stable on 4 L of oxygen by nasal cannula with a pulse ox of 91%. No new complaints for now. The patient COPD is advanced with an FEV1 of 19% of predicted.Blood work from today shows a white cell count of 12.7, hemoglobin 10.8 and a platelet count of 153. BUN 38 with a creatinine 1.37 and a sodium levels at 132. The patient is seen today July 02, 2024 in follow-up on the care unit. He is currently sitting up in the chair at the bedside. Awake and alert in no acute distress. Still with a loose nonproductive cough. He remains on DuoNeb inhalations, Symbicort, Solu-Medrol. Anticoagulated with Eliquis. Procalcitonin was 0.53. He is being treated for influenza A and had recently been treated for COVID infection. Sodium 135. Potassium 4.7. Bicarb 43. BUN 40. Creatinine 1.41. Glucose 120. Containing O2 saturations in the 90s on 4 L/min per nasal cannula. He is been afebrile. Hemodynamically stable. Seen today on 07/03/2024, patient remains quite symptomatic continues to have cough wheezing and shortness of breath patient is on maximal therapy including oxygen, bronchodilators, steroids, and on Tamiflu. Patient does not believe that he is improving although on physical examination he does have diminished breath sounds bilaterally with minimal wheezing more so on forced expiratory m aneuver. Labs showed WBC count of 11.5 hemoglobin 11.6 electrolytes are normal except for elevated bicarb of 46 which is expected BUN is 38 creatinine 1.25. Chest x-ray on admission showed mostly COPD, no acute process was noted, no evidence of pneumonia. Patient was seen on 07/04/2024, remains quite symptomatic with intermittent episodes of cough and wheezing and shortness of breath, patient tells me that he is even short of breath at rest and with any minimal activity. On physical examination continues to have wheezing bilaterally more so on forced expiratory maneuver labs today showed leukocytosis and elevated bicarb of 46, otherwise the rest of his labs were unremarkable he does have chronic kidney disease, creatinine today is 1.35 slightly improved compared to creatinine on admission of 1.51 Objective - Vital Signs Vital signs: Vital Signs Temp 97.7 F 07/04/24 08:00 Pulse 74 07/04/24 15:49 Resp 16 07/04/24 11:40 BP 121/69 07/04/24 11:40 Pulse Ox 94 L 07/04/24 11:40 FiO2 35 07/03/24 00:15 Intake & Output 07/03/24 07/04/24 07/04/24 18:59 06:59 18:59 Intake Total 240 480 Output Total 1700 950 600 Balance -1460 -950 -120 Weight 102.8 kg Intake: Oral 240 480 Output: Urine 1700 950 600 Other: Voiding Method Urinal Urinal - Exam GENERAL EXAM: Revealed 78-year-old white male on 4 L nasal cannula seems to be comfortable HEAD: Normocephalic. Atraumatic EYES: Normal reaction of pupils, equal size. NOSE: Clear with pink turbinates. THROAT: No erythema or exudates. NECK: No masses, no JVD. CHEST: No chest wall deformity. LUNGS: Diminished breath sound bilaterally some wheezing bilaterally is noted CVS: S1 and S2 normal with no audible murmur, regular rhythm. ABDOMEN: No hepatosplenomegaly, normal bowel sounds, no guarding or rigidity. SKIN: No rashes CENTRAL NERVOUS SYSTEM: Alert and oriented x 3 no gross focal deficit EXTREMITIES: No clubbing edema or cyanosis - Labs CBC & Chem 7: 07/04/24 06:23 07/04/24 06:23 Labs: Abnormal Lab Results - Last 24 Hours (Table) 07/03/24 07/03/24 07/04/24 Range/Units 16:46 20:01 05:56 WBC (3.8-10.6) k/uL RBC (4.30-5.90) m/uL Hgb (13.0-17.5) gm/dL MCV (80.0-100.0) fL MCHC (31.0-37.0) g/dL Chloride (98-107) mmol/L Carbon Dioxide (22-30) mmol/L BUN (9-20) mg/dL Creatinine (0.66-1.25) mg/dL POC Glucose (mg/dL) 119 H 127 H 132 H (70-110) mg/dL Total Protein (6.3-8.2) g/dL Albumin (3.5-5.0) g/dL 07/04/24 07/04/24 Range/Units 06:23 06:23 WBC 12.3 H (3.8-10.6) k/uL RBC 3.99 L (4.30-5.90) m/uL Hgb 12.4 L (13.0-17.5) gm/dL MCV 103.2 H (80.0-100.0) fL MCHC 30.0 L (31.0-37.0) g/dL Chloride 87 L (98-107) mmol/L Carbon Dioxide 46 H* (22-30) mmol/L BUN 35 H (9-20) mg/dL Creatinine 1.35 H (0.66-1.25) mg/dL POC Glucose (mg/dL) (70-110) mg/dL Total Protein 6.0 L (6.3-8.2) g/dL Albumin 3.3 L (3.5-5.0) g/dL Assessment and Plan Assessment: Impression: Acute COPD exacerbation secondary to influenza A infection, currently on 4 L/min per nasal cannula. Clinically improved and the patient seems to be less short of breath. Acute influenza A infection. Chest x-ray shows chronic changes consistent with COPD, the patient is currently on Tamiflu Acute on chronic hypoxic respiratory failure, secondary to above Chronic hypercapnic respiratory failure, acid-base status and blood gas is compensated. Severe oxygen and steroid dependent chronic obstructive pulmonary disease, most recent FEV1 19 % of predicted, maintained on AVAPS machine at home. The patient is also oxygen dependent and the patient has been maintained on a combination of Wixela and Spiriva on outpatient basis. Chronic hypoxemic and hypercapnic respiratory, normally on 2-4 L/min nasal cannula 29/11 Chronic ongoing tobacco dependence and secondhand smoke exposure Obstructive sleep apnea, with home AVAPS machine Recent acute COVID-19 infection Obesity, with a BMI of 33 kg/m Paroxysmal atrial fibrillation, currently in normal sinus rhythm, anticoagulated on Eliquis Hypertension History of renal cancer status post right nephrectomy Recommendation: Continue present supportive care measures Continue bronchodilators and continue Solu-Medrol Finish 5-day course of Tamiflu Continue empiric antibiotics, patient is on doxycycline Titrate FiO2 accordingly Remains quite symptomatic and not ready for discharge Will continue to follow Time with Patient: Less than 30
[2024-07-04 16:57] LABS: Glucose,Whole Blood 159 mg/dL (70-110)
[2024-07-04 20:22] LABS: Glucose,Whole Blood 194 mg/dL (70-110)
[2024-07-04] MEDS: DOXYCYCLINE 100 MG TABLET PO SCH (20:51)
[2024-07-05 05:55] LABS: Glucose,Whole Blood 153 mg/dL (70-110)
[2024-07-05 06:25] LABS: HCT 40.3 % (39.0-53.0); Hypochromasia Slight; MCH 30.6 pg (25.0-35.0); MCHC 29.9 g/dL (31.0-37.0); MCV 102.5 fL (80.0-100.0); Macrocytosis Slight; Mean Platelet Volume 7.8; Platelet Count 239 k/uL (150-450); RBC 3.93 m/uL (4.30-5.90); RDW 14.2 % (11.5-15.5); WBC 16.9 k/uL (3.8-10.6)
[2024-07-05 07:34] LABS: ALT 30 U/L (4-49); AST 21 U/L (17-59); African American GFR (CKD) 56 (>60 ml/min/1.73 sqM); Albumin 3.1 g/dL (3.5-5.0); Alkaline Phosphatase 70 U/L (38-126); Blood Urea Nitrogen 39 mg/dL (9-20); Calcium 8.7 mg/dL (8.4-10.2); Chloride 86 mmol/L (98-107); Glucose 139 mg/dL (74-99); Magnesium 2.1 mg/dL (1.6-2.3); Non-African American GFR(CKD) 49 (>60 ml/min/1.73 sqM); Potassium 4.6 mmol/L (3.5-5.1); Sodium 133 mmol/L (137-145); Total Bilirubin 0.3 mg/dL (0.2-1.3); Total Protein 5.8 g/dL (6.3-8.2)
[2024-07-05 08:06] LABS: Anion Gap 2 mmol/L; Carbon Dioxide 45 mmol/L (22-30)
[2024-07-05 11:13] LABS: Glucose,Whole Blood 144 mg/dL (70-110)
--- NOTE | 2024-07-05 12:45 | P.PN ---
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 He presented to the hospital with a chief complaint of shortness of breath. Patient recently underwent hospitalization for COPD exacerbation 06/23-06/25 for COPD exacerbation. Patient reports going home, completing his steroids and feeling well up until about 2 days ago when he again began to develop worsening shortness of breath accompanied by a nonproductive cough. He reports that he was increasing his oxygen to 4 L but this did not even help and his shortness of breath progressively worsened accompanied by generalized bodyaches, diaphoresis and fatigue so he called EMS for transport to the hospital. Upon arrival to our facility, patient underwent evaluation in the emergency department. Vital signs upon arrival show blood pressure 92/65, heart rate 51, respiratory rate 26, temp 100.9 F, and SpO2 of 92% on 4 L. EKG was completed showing sinus tachycardia at 109 bpm with moderate interference. Chest x-ray completed showing findings of COPD with hyperinflation and flattening of the diaphragm but negative for acute cardiopulmonary process. Labs completed and reviewed. CBC showing leukocytosis with WBC count of 10.7, hemoglobin of 12.3, platelet count of 153 with mild macrocytosis with elevated MCV of 101.7. Coagulation profile showing a low PTT of 21.9. BMP showing metabolic alkalosis with chloride of 89, bicarb of 40, and anion gap of 8 and renal function consistent with known stage III CKD with BUN of 33, creatinine of 1.51, GFR 44. Blood glucose was 109. Lactic acid was 1.1. Calcium 8.8. Magnesium 1.8. Liver profile unremarkable. Troponin was elevated at 0.057 and proBNP 717. Patient initially requiring 4 L O2 in the emergency department however there were concerns for increasing lethargy with increased work of breathing and patient was placed on continuous BiPAP. Yumiko ent's mentation significantly improved shortly after being placed on BiPAP. At time of admission respirations even, regular, and unlabored on BiPAP and patient able to speak in full sentences at this time. Patient admitted under our services with consultation to cardiology for elevated troponins and pulmonology for acute on chronic respiratory failure. Cardiology not recommending any further interventions. Influenza A positive. Patient still requiring high amounts of oxygen, and BiPAP at night. Completed course of Tamiflu. Subjective: Patient seen and examined at bedside. No acute events overnight. Still having cough mostly nonproductive. Uses 2 L of oxygen at home. Currently on 4 L. Pertinent positives and negatives as discussed above, a complete review of systems was performed and all other systems are negative. Vitals Signs Reviewed. General: Nontoxic, no distress, appears at stated age Derm: Warm, dry Head: Atraumatic, normocephalic, symmetric Eyes: EOMI, no lid lag, anicteric sclera Mouth: No lip lesion, mucus membranes moist Cardiovascular: S1S2 reg, no murmur Lungs: Bibasilar rhonchi, no accessory muscle use, supplemental oxygen Abdominal: Soft, nontender to palpation, no guarding, no appreciable organomegaly Ext: No gross muscle atrophy, no edema, no contractures Neuro: CN II-XI grossly intact, no focal neuro deficits Psych: Alert, oriented, appropriate affect Data Reviewed Today: Pertinent Labs: WBC 16.9, hemoglobin 12, sodium 133, bicarb 45, creatinine 1.38, magnesium 2.1, blood sugars range between 1 44-1 94 Imaging: No new imaging Assessment and Plan: Acute on chronic hypoxic and hypercarbic respiratory failure Acute COPD exacerbation Influenza A infection Sepsis on arrival, secondary to influenza infection -Pulmonology following, plan as below -Wean oxygen -Duonebs scheduled 4 times daily and as needed for SOB and/or wheezing -Steroids: Solu-Medrol 40 mg IVP every 8 hours, will consider switching to oral steroids tomorrow -Completed 5-day course of Tamiflu on 07/03/2024. -Continue Symbicort 160-4.5 mcg inhaler 2 puffs twice daily and Roflumilast 500 mcg daily. -Patient also continued on doxycycline 100 twice daily -Wean BiPAP Elevated troponins, likely secondary to hypoxia and sepsis Paroxysmal atrial fibrillation Chronic diastolic heart failure with last known EF of 55 to 60% -Troponin flat -Cardiology evaluated ruling out an acute coronary event stating no need to repeat echocardiogram clearing patient from cardiac perspective recommending outpatient follow-up with Dr. Adler in 2 weeks. -Telemetry monitoring -Continue aspirin 81 mg daily, amiodarone 200 mg daily, Eliquis 5 mg twice daily, Bumex 1 mg twice daily, digoxin 125 mcg daily, and secondary to statin allergy cardiology started patient on Zetia 10 mg daily. CKD stage IIIa status post right nephrectomy. Baseline creatinine 1.3, renal adjust medications consider risk versus benefits of nephrotoxic agents. Peripheral neuropathy. Continue gabapentin 200 mg BID Depression with anxiety. Continue wellbutrin 150 mg BID. Insomina. Continue trazodone 50 mg daily DVT ppx: Eliquis Code status: Full code Anticipated discharge place: Pending clinical course Anticipated discharge time: Pending clinical course Objective - Vital Signs Vital signs: Vital Signs Temp 97.8 F 07/05/24 10:01 Pulse 86 07/05/24 12:25 Resp 18 07/05/24 11:45 BP 136/66 07/05/24 11:45 Pulse Ox 93 L 07/05/24 11:45 FiO2 35 07/05/24 03:59 Intake & Output 07/04/24 07/05/24 07/05/24 18:59 06:59 18:59 Intake Total 480 240 180 Output Total 800 950 700 Balance -320 710 -520 Weight 102.7 kg Intake: Oral 480 240 180 Output: Urine 800 950 700 Other: Voiding Method Urinal Urinal Urinal - Labs CBC & Chem 7: 07/05/24 05:59 07/05/24 05:59 Labs: Abnormal Lab Results - Last 24 Hours (Table) 07/04/24 07/04/24 07/05/24 Range/Units 16:54 20:20 05:49 WBC (3.8-10.6) k/uL RBC (4.30-5.90) m/uL Hgb (13.0-17.5) gm/dL MCV (80.0-100.0) fL MCHC (31.0-37.0) g/dL Sodium (137-145) mmol/L Chloride (98-107) mmol/L Carbon Dioxide (22-30) mmol/L BUN (9-20) mg/dL Creatinine (0.66-1.25) mg/dL Glucose (74-99) mg/dL POC Glucose (mg/dL) 159 H 194 H 153 H (70-110) mg/dL Total Protein (6.3-8.2) g/dL Albumin (3.5-5.0) g/dL 07/05/24 07/05/24 07/05/24 Range/Units 05:59 05:59 11:11 WBC 16.9 H (3.8-10.6) k/uL RBC 3.93 L (4.30-5.90) m/uL Hgb 12.0 L (13.0-17.5) gm/dL MCV 102.5 H (80.0-100.0) fL MCHC 29.9 L (31.0-37.0) g/dL Sodium 133 L (137-145) mmol/L Chloride 86 L (98-107) mmol/L Carbon Dioxide 45 H* (22-30) mmol/L BUN 39 H (9-20) mg/dL Creatinine 1.38 H (0.66-1.25) mg/dL Glucose 139 H (74-99) mg/dL POC Glucose (mg/dL) 144 H (70-110) mg/dL Total Protein 5.8 L (6.3-8.2) g/dL Albumin 3.1 L (3.5-5.0) g/dL
[2024-07-05 13:55] VITALS: BMI 32.5
--- NOTE | 2024-07-05 14:07 | P.PN ---
Subjective Progress Note Date: 07/05/24 Principal diagnosis: Acute exacerbation of COPD secondary to influenza A infection and acute on chronic hypoxic respiratory failure 78-year-old male patient, admitted through emergency department for worsening shortness of breath. He has had multiple hospitalizations for the same. He was recently hospitalized and discharged on 05/25/2024 after being treated for an acute COPD exacerbation. He wears oxygen at home at 2 L/min nasal cannula and his oxygen requirements apparently been going up and while on 4 L of O2 the patient's pulse ox was 78%. Based on that, the patient came into the emergency and he was hospitalized. He has a cough, nonproductive. He was febrile upon arrival to the hospital. Based on that, the patient was admitted. His temperature was 100.9. Hemodynamically stable, slightly tachycardic, his blood work showed a white cell count of 10.7 and he was 12.3 and platelet count of 153. Sodium level is at 137, BUN 33 with a creatinine of 1.5 and a glucose of 109. The blood gas was done that showed chronic hypercapnic respiratory failure compensated with a pH of 7.37 and a pCO2 of 77 and pO2 of 82 and this was done while the patient was on a BiPAP at a pressure of 10/5 with an FiO2 of 35%. Reviewed the chest x-ray from this current admission and it is consistent with COPD. No airspace disease. No consolidation. No pneumothorax. The patient also had a viral screen that was positive for influenza A and this could have exacerbated his underlying COPD. He is currently on DuoNeb nebulized treatments [id number]. He was also started on Tamiflu. He was started on IV Solu- Medrol 40 mg every 8 hours. He also had a COVID-19 infection back in May 2024. In terms of his respiratory status, the patient COPD is advanced. He has an FEV1 of 19% of predicted. He has been maintained on a combination of Spiriva and Wixela and outpatient basis. He is also oxygen dependent. He also has a AVAPS machine at home. Other comorbidities include atrial fibrillation, macular degeneration, and renal cancer for which the patient has undergone a right nephrectomy. He has also hypertension hyperlipidemia and impaired hearing. On today's evaluation of 06/30/2024, the patient is being seen for a follow-up. The patient seems to be much more comfortable compared to yesterday. Remains on a BiPAP. On and off, he is being given brief periods of the BiPAP. At the time of my evaluation, the patient was still on the BiPAP pressure of 10 over 5 cm of water and the patient was able to generate good tidal volumes above 600 and the patient's respiratory rate is around 20. The patient remains on DuoNeb updrafts. The patient remains on Symbicort. The patient remains on IV Solu- Medrol 40 mg every 8 hours. Rest of the home medication resumed. He remains on Tamiflu. White cell count 8.7, hemoglobin 11.4 and platelet count of 153. Serum bicarb is at 41. BUN 39 with a creatinine of 1.4 and sodium levels at 135 and potassium level is at 4.4. Note that the patient has history of chronic kidney disease. No altered mentation the patient was awake and alert and communicating and following commands and answering questions appropriately. He does have chronic hypoxic and hypercapnic respiratory failure. He has a AVAPS device at home. On 07/01/2024, patient is being seen for a follow-up. Continues to have cough and congestion. Modest improvement over the past 24 hours. He is using our BiPAP device on and off during the day at a pressure of 10 over 5 cm of water. Remains on bronchodilators. Remains on steroids. Remains on Symbicort 2 puffs twice a day, DuoNeb updrafts 4 times a day, and the patient is completing course of Tamiflu. Remains on IV Solu-Medrol 40 mg every 8 hours. Oxygenation is stable on 4 L of oxygen by nasal cannula with a pulse ox of 91%. No new complaints for now. The patient COPD is advanced with an FEV1 of 19% of predicted.Blood work from today shows a white cell count of 12.7, hemoglobin 10.8 and a platelet count of 153. BUN 38 with a creatinine 1.37 and a sodium levels at 132. The patient is seen today July 02, 2024 in follow-up on the care unit. He is currently sitting up in the chair at the bedside. Awake and alert in no acute distress. Still with a loose nonproductive cough. He remains on DuoNeb inhalations, Symbicort, Solu-Medrol. Anticoagulated with Eliquis. Procalcitonin was 0.53. He is being treated for influenza A and had recently been treated for COVID infection. Sodium 135. Potassium 4.7. Bicarb 43. BUN 40. Creatinine 1.41. Glucose 120. Containing O2 saturations in the 90s on 4 L/min per nasal cannula. He is been afebrile. Hemodynamically stable. Seen today on 07/03/2024, patient remains quite symptomatic continues to have cough wheezing and shortness of breath patient is on maximal therapy including oxygen, bronchodilators, steroids, and on Tamiflu. Patient does not believe that he is improving although on physical examination he does have diminished breath sounds bilaterally with minimal wheezing more so on forced expiratory m aneuver. Labs showed WBC count of 11.5 hemoglobin 11.6 electrolytes are normal except for elevated bicarb of 46 which is expected BUN is 38 creatinine 1.25. Chest x-ray on admission showed mostly COPD, no acute process was noted, no evidence of pneumonia. Patient was seen on 07/04/2024, remains quite symptomatic with intermittent episodes of cough and wheezing and shortness of breath, patient tells me that he is even short of breath at rest and with any minimal activity. On physical examination continues to have wheezing bilaterally more so on forced expiratory maneuver labs today showed leukocytosis and elevated bicarb of 46, otherwise the rest of his labs were unremarkable he does have chronic kidney disease, creatinine today is 1.35 slightly improved compared to creatinine on admission of 1.51 Patient was seen today on 07/05/2024, remains symptomatic continues to have cough wheezing and shortness of breath, patient keeps complaining of no significant improvement, and he is not back to his baseline. In the meantime he seems to be very comfortable, not in any distress, on physical examination he has diminished breath sound bilaterally some wheezing on forced expiratory maneuver. His WBC count is 16.9 hemoglobin is 12.0 basic metabolic profile is normal bicarb is 45 BUN is 39 creatinine 1.39 Objective - Vital Signs Vital signs: Vital Signs Temp 97.8 F 07/05/24 10:01 Pulse 76 07/05/24 13:27 Resp 18 07/05/24 13:27 BP 136/66 07/05/24 11:45 Pulse Ox 93 L 07/05/24 11:45 FiO2 35 07/05/24 03:59 Intake & Output 07/04/24 07/05/24 07/05/24 18:59 06:59 18:59 Intake Total 480 240 180 Output Total 800 950 700 Balance -320 -710 -520 Weight 102.7 kg 102.7 kg Intake: Oral 480 240 180 Output: Urine 800 950 700 Other: Voiding Method Urinal Urinal Urinal - Exam GENERAL EXAM: Revealed 78-year-old white male on 4 L nasal cannula seems to be comfortable, O2 saturation 93% HEAD: Normocephalic. Atraumatic EYES: Normal reaction of pupils, equal size. NOSE: Clear with pink turbinates. THROAT: No erythema or exudates. NECK: No masses, no JVD. CHEST: No chest wall deformity. LUNGS: Diminished breath sound bilaterally some wheezing bilaterally is noted CVS: S1 and S2 normal with no audible murmur, regular rhythm. ABDOMEN: No hepatosplenomegaly, normal bowel sounds, no guarding or rigidity. SKIN: No rashes CENTRAL NERVOUS SYSTEM: Alert and oriented x 3 no gross focal deficit EXTREMITIES: No clubbing edema or cyanosis - Labs CBC & Chem 7: 07/05/24 05:59 07/05/24 05:59 Labs: Abnormal Lab Results - Last 24 Hours (Table) 07/04/24 07/04/24 07/05/24 Range/Units 16:54 20:20 05:49 WBC (3.8-10.6) k/uL RBC (4.30-5.90) m/uL Hgb (13.0-17.5) gm/dL MCV (80.0-100.0) fL MCHC (31.0-37.0) g/dL Sodium (137-145) mmol/L Chloride (98-107) mmol/L Carbon Dioxide (22-30) mmol/L BUN (9-20) mg/dL Creatinine (0.66-1.25) mg/dL Glucose (74-99) mg/dL POC Glucose (mg/dL) 159 H 194 H 153 H (70-110) mg/dL Total Protein (6.3-8.2) g/dL Albumin (3.5-5.0) g/dL 07/05/24 07/05/24 07/05/24 Range/Units 05:59 05:59 11:11 WBC 16.9 H (3.8-10.6) k/uL RBC 3.93 L (4.30-5.90) m/uL Hgb 12.0 L (13.0-17.5) gm/dL MCV 102.5 H (80.0-100.0) fL MCHC 29.9 L (31.0-37.0) g/dL Sodium 133 L (137-145) mmol/L Chloride 86 L (98-107) mmol/L Carbon Dioxide 45 H* (22-30) mmol/L BUN 39 H (9-20) mg/dL Creatinine 1.38 H (0.66-1.25) mg/dL Glucose 139 H (74-99) mg/dL POC Glucose (mg/dL) 144 H (70-110) mg/dL Total Protein 5.8 L (6.3-8.2) g/dL Albumin 3.1 L (3.5-5.0) g/dL Assessment and Plan Assessment: Impression: Acute COPD exacerbation secondary to influenza A infection, currently on 4 L/min per nasal cannula. Acute influenza A infection. Chest x-ray shows chronic changes consistent with COPD, the patient is currently on Tamiflu Acute on chronic hypoxic respiratory failure, secondary to above Chronic hypercapnic respiratory failure, acid-base status and blood gas is compensated. Severe oxygen and steroid dependent chronic obstructive pulmonary disease, most recent FEV1 19 % of predicted, maintained on AVAPS machine at home. The patient is also oxygen dependent and the patient has been maintained on a combination of Wixela and Spiriva on outpatient basis. Chronic hypoxemic and hypercapnic respiratory, normally on 2-4 L/min nasal cannula 29/11 Chronic ongoing tobacco dependence and secondhand smoke exposure Obstructive sleep apnea, with home AVAPS machine Recent acute COVID-19 infection Obesity, with a BMI of 33 kg/m Paroxysmal atrial fibrillation, currently in normal sinus rhythm, anticoagulated on Eliquis Hypertension History of renal cancer status post right nephrectomy Recommendation: Continue present supportive care measures Continue bronchodilators and continue Solu-Medrol Continue empiric antibiotics, patient is on doxycycline Titrate FiO2 accordingly Remains quite symptomatic and not ready for discharge Will continue to follow Time with Patient: Less than 30
[2024-07-05 16:50] LABS: Glucose,Whole Blood 141 mg/dL (70-110)
[2024-07-05 20:18] LABS: Glucose,Whole Blood 170 mg/dL (70-110)
[2024-07-06 06:26] LABS: Glucose,Whole Blood 171 mg/dL (70-110)
[2024-07-06 07:05] LABS: Basophils % (A) 0 %; Eosinophils % (A) 0 %; HCT 39.1 % (39.0-53.0); HGB 11.9 gm/dL (13.0-17.5); Hypochromasia Moderate; Lymphocytes # (A) 0.4 k/uL (1.0-4.8); Lymphocytes % (A) 2 %; MCH 30.9 pg (25.0-35.0); MCHC 30.4 g/dL (31.0-37.0); MCV 101.5 fL (80.0-100.0); Macrocytosis Slight; Mean Platelet Volume 7.2; Monocytes # (A) 0.6 k/uL (0-1.0); Monocytes % (A) 4 %; Neutrophils # (A) 15.4 k/uL (1.3-7.7); Neutrophils % (A) 93 %; Platelet Count 232 k/uL (150-450); RBC 3.86 m/uL (4.30-5.90); RDW 13.9 % (11.5-15.5); WBC 16.6 k/uL (3.8-10.6)
[2024-07-06 07:34] LABS: ALT 30 U/L (4-49); AST 22 U/L (17-59); African American GFR (CKD) 66 (>60 ml/min/1.73 sqM); Albumin 3.1 g/dL (3.5-5.0); Alkaline Phosphatase 66 U/L (38-126); Anion Gap 6 mmol/L; Blood Urea Nitrogen 46 mg/dL (9-20); Calcium 8.6 mg/dL (8.4-10.2); Chloride 88 mmol/L (98-107); Glucose 139 mg/dL (74-99); Non-African American GFR(CKD) 57 (>60 ml/min/1.73 sqM); Potassium 4.5 mmol/L (3.5-5.1); Sodium 134 mmol/L (137-145); Total Bilirubin 0.4 mg/dL (0.2-1.3); Total Protein 5.7 g/dL (6.3-8.2)
[2024-07-06 07:46] LABS: Carbon Dioxide 40 mmol/L (22-30)
[2024-07-06 11:14] LABS: Glucose,Whole Blood 122 mg/dL (70-110)
--- NOTE | 2024-07-06 14:08 | P.PN ---
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 He presented to the hospital with a chief complaint of shortness of breath. Patient recently underwent hospitalization for COPD exacerbation 06/23-06/25 for COPD exacerbation. Patient reports going home, completing his steroids and feeling well up until about 2 days ago when he again began to develop worsening shortness of breath accompanied by a nonproductive cough. He reports that he was increasing his oxygen to 4 L but this did not even help and his shortness of breath progressively worsened accompanied by generalized bodyaches, diaphoresis and fatigue so he called EMS for transport to the hospital. Upon arrival to our facility, patient underwent evaluation in the emergency department. Vital signs upon arrival show blood pressure 92/65, heart rate 51, respiratory rate 26, temp 100.9 F, and SpO2 of 92% on 4 L. EKG was completed showing sinus tachycardia at 109 bpm with moderate interference. Chest x-ray completed showing findings of COPD with hyperinflation and flattening of the diaphragm but negative for acute cardiopulmonary process. Labs completed and reviewed. CBC showing leukocytosis with WBC count of 10.7, hemoglobin of 12.3, platelet count of 153 with mild macrocytosis with elevated MCV of 101.7. Coagulation profile showing a low PTT of 21.9. BMP showing metabolic alkalosis with chloride of 89, bicarb of 40, and anion gap of 8 and renal function consistent with known stage III CKD with BUN of 33, creatinine of 1.51, GFR 44. Blood glucose was 109. Lactic acid was 1.1. Calcium 8.8. Magnesium 1.8. Liver profile unremarkable. Troponin was elevated at 0.057 and proBNP 717. Patient initially requiring 4 L O2 in the emergency department however there were concerns for increasing lethargy with increased work of breathing and patient was placed on continuous BiPAP. Yumiko ent's mentation significantly improved shortly after being placed on BiPAP. At time of admission respirations even, regular, and unlabored on BiPAP and patient able to speak in full sentences at this time. Patient admitted under our services with consultation to cardiology for elevated troponins and pulmonology for acute on chronic respiratory failure. Cardiology not recommending any further interventions. Influenza A positive. Patient still requiring high amounts of oxygen, and BiPAP at night. Completed course of Tamiflu. Subjective: Patient seen and examined at bedside. No acute events overnight. Still having cough mostly nonproductive. Uses 2 L of oxygen at home. Currently on 4 L. Pertinent positives and negatives as discussed above, a complete review of systems was performed and all other systems are negative. Vitals Signs Reviewed. General: Nontoxic, no distress, appears at stated age Derm: Warm, dry Head: Atraumatic, normocephalic, symmetric Eyes: EOMI, no lid lag, anicteric sclera Mouth: No lip lesion, mucus membranes moist Cardiovascular: S1S2 reg, no murmur Lungs: Bibasilar rhonchi, no accessory muscle use, supplemental oxygen Abdominal: Soft, nontender to palpation, no guarding, no appreciable organomegaly Ext: No gross muscle atrophy, no edema, no contractures Neuro: CN II-XI grossly intact, no focal neuro deficits Psych: Alert, oriented, appropriate affect Data Reviewed Today: Pertinent Labs: WBC 16.6, hemoglobin 11.9, bicarb 40, creatinine 1.22, blood sugars range between 1 22-1 71 Imaging: No new imaging Assessment and Plan: Acute on chronic hypoxic and hypercarbic respiratory failure Acute COPD exacerbation Influenza A infection Sepsis on arrival, secondary to influenza infection -Pulmonology following, plan as below -Wean oxygen -Duonebs scheduled 4 times daily and as needed for SOB and/or wheezing -Steroids: Switch to prednisone 40 daily -Completed 5-day course of Tamiflu on 07/03/2024. -Continue Symbicort 160-4.5 mcg inhaler 2 puffs twice daily and Roflumilast 500 mcg daily. -Patient also continued on doxycycline 100 twice daily -Patient uses CPAP at night at home, continue BiPAP for now at night Elevated troponins, likely secondary to hypoxia and sepsis Paroxysmal atrial fibrillation Chronic diastolic heart failure with last known EF of 55 to 60% -Troponin flat -Cardiology evaluated ruling out an acute coronary event stating no need to repeat echocardiogram clearing patient from cardiac perspective recommending outpatient follow-up with Dr. Adler in 2 weeks. -Telemetry monitoring -Continue aspirin 81 mg daily, amiodarone 200 mg daily, Eliquis 5 mg twice daily, Bumex 1 mg twice daily, digoxin 125 mcg daily, and secondary to statin allergy cardiology started patient on Zetia 10 mg daily. CKD stage IIIa status post right nephrectomy. Baseline creatinine 1.3, renal adjust medications consider risk versus benefits of nephrotoxic agents. Peripheral neuropathy. Continue gabapentin 200 mg BID Depression with anxiety. Continue wellbutrin 150 mg BID. Insomina. Continue trazodone 50 mg daily DVT ppx: Eliquis Code status: Full code Anticipated discharge place: Pending clinical course Anticipated discharge time: Pending clinical course Objective - Vital Signs Vital signs: Vital Signs Temp 97.8 F 07/06/24 03:45 Pulse 77 07/06/24 13:48 Resp 18 07/06/24 13:48 BP 138/80 07/06/24 11:36 Pulse Ox 90 L 07/06/24 11:36 FiO2 35 07/06/24 00:04 Intake & Output 07/05/24 07/06/24 07/06/24 18:59 06:59 18:59 Intake Total 660 480 Output Total 1700 600 Balance -1040 -120 Weight 102.7 kg 102.6 kg Intake: Oral 660 480 Output: Urine 1700 600 Other: Voiding Method Urinal Urinal Urinal - Labs CBC & Chem 7: 07/06/24 06:44 07/06/24 06:44 Labs: Abnormal Lab Results - Last 24 Hours (Table) 07/05/24 07/05/24 07/06/24 Range/Units 16:49 20:16 06:24 WBC (3.8-10.6) k/uL RBC (4.30-5.90) m/uL Hgb (13.0-17.5) gm/dL MCV (80.0-100.0) fL MCHC (31.0-37.0) g/dL Neutrophils # (1.3-7.7) k/uL Lymphocytes # (1.0-4.8) k/uL Sodium (137-145) mmol/L Chloride (98-107) mmol/L Carbon Dioxide (22-30) mmol/L BUN (9-20) mg/dL Glucose (74-99) mg/dL POC Glucose (mg/dL) 141 H 170 H 171 H (70-110) mg/dL Total Protein (6.3-8.2) g/dL Albumin (3.5-5.0) g/dL 07/06/24 07/06/24 07/06/24 Range/Units 06:44 06:44 11:12 WBC 16.6 H (3.8-10.6) k/uL RBC 3.86 L (4.30-5.90) m/uL Hgb 11.9 L (13.0-17.5) gm/dL MCV 101.5 H (80.0-100.0) fL MCHC 30.4 L (31.0-37.0) g/dL Neutrophils # 15.4 H (1.3-7.7) k/uL Lymphocytes # 0.4 L (1.0-4.8) k/uL Sodium 134 L (137-145) mmol/L Chloride 88 L (98-107) mmol/L Carbon Dioxide 40 H (22-30) mmol/L BUN 46 H (9-20) mg/dL Glucose 139 H (74-99) mg/dL POC Glucose (mg/dL) 122 H (70-110) mg/dL Total Protein 5.7 L (6.3-8.2) g/dL Albumin 3.1 L (3.5-5.0) g/dL
--- NOTE | 2024-07-06 16:12 | P.PN ---
Subjective Progress Note Date: 07/06/24 Principal diagnosis: Acute exacerbation of COPD secondary to influenza A infection and acute on chronic hypoxic respiratory failure 78-year-old male patient, admitted through emergency department for worsening shortness of breath. He has had multiple hospitalizations for the same. He was recently hospitalized and discharged on 05/25/2024 after being treated for an acute COPD exacerbation. He wears oxygen at home at 2 L/min nasal cannula and his oxygen requirements apparently been going up and while on 4 L of O2 the patient's pulse ox was 78%. Based on that, the patient came into the emergency and he was hospitalized. He has a cough, nonproductive. He was febrile upon arrival to the hospital. Based on that, the patient was admitted. His temperature was 100.9. Hemodynamically stable, slightly tachycardic, his blood work showed a white cell count of 10.7 and he was 12.3 and platelet count of 153. Sodium level is at 137, BUN 33 with a creatinine of 1.5 and a glucose of 109. The blood gas was done that showed chronic hypercapnic respiratory failure compensated with a pH of 7.37 and a pCO2 of 77 and pO2 of 82 and this was done while the patient was on a BiPAP at a pressure of 10/5 with an FiO2 of 35%. Reviewed the chest x-ray from this current admission and it is consistent with COPD. No airspace disease. No consolidation. No pneumothorax. The patient also had a viral screen that was positive for influenza A and this could have exacerbated his underlying COPD. He is currently on DuoNeb nebulized treatments [id number]. He was also started on Tamiflu. He was started on IV Solu- Medrol 40 mg every 8 hours. He also had a COVID-19 infection back in May 2024. In terms of his respiratory status, the patient COPD is advanced. He has an FEV1 of 19% of predicted. He has been maintained on a combination of Spiriva and Wixela and outpatient basis. He is also oxygen dependent. He also has a AVAPS machine at home. Other comorbidities include atrial fibrillation, macular degeneration, and renal cancer for which the patient has undergone a right nephrectomy. He has also hypertension hyperlipidemia and impaired hearing. On today's evaluation of 06/30/2024, the patient is being seen for a follow-up. The patient seems to be much more comfortable compared to yesterday. Remains on a BiPAP. On and off, he is being given brief periods of the BiPAP. At the time of my evaluation, the patient was still on the BiPAP pressure of 10 over 5 cm of water and the patient was able to generate good tidal volumes above 600 and the patient's respiratory rate is around 20. The patient remains on DuoNeb updrafts. The patient remains on Symbicort. The patient remains on IV Solu- Medrol 40 mg every 8 hours. Rest of the home medication resumed. He remains on Tamiflu. White cell count 8.7, hemoglobin 11.4 and platelet count of 153. Serum bicarb is at 41. BUN 39 with a creatinine of 1.4 and sodium levels at 135 and potassium level is at 4.4. Note that the patient has history of chronic kidney disease. No altered mentation the patient was awake and alert and communicating and following commands and answering questions appropriately. He does have chronic hypoxic and hypercapnic respiratory failure. He has a AVAPS device at home. On 07/01/2024, patient is being seen for a follow-up. Continues to have cough and congestion. Modest improvement over the past 24 hours. He is using our BiPAP device on and off during the day at a pressure of 10 over 5 cm of water. Remains on bronchodilators. Remains on steroids. Remains on Symbicort 2 puffs twice a day, DuoNeb updrafts 4 times a day, and the patient is completing course of Tamiflu. Remains on IV Solu-Medrol 40 mg every 8 hours. Oxygenation is stable on 4 L of oxygen by nasal cannula with a pulse ox of 91%. No new complaints for now. The patient COPD is advanced with an FEV1 of 19% of predicted.Blood work from today shows a white cell count of 12.7, hemoglobin 10.8 and a platelet count of 153. BUN 38 with a creatinine 1.37 and a sodium levels at 132. The patient is seen today July 02, 2024 in follow-up on the care unit. He is currently sitting up in the chair at the bedside. Awake and alert in no acute distress. Still with a loose nonproductive cough. He remains on DuoNeb inhalations, Symbicort, Solu-Medrol. Anticoagulated with Eliquis. Procalcitonin was 0.53. He is being treated for influenza A and had recently been treated for COVID infection. Sodium 135. Potassium 4.7. Bicarb 43. BUN 40. Creatinine 1.41. Glucose 120. Containing O2 saturations in the 90s on 4 L/min per nasal cannula. He is been afebrile. Hemodynamically stable. Seen today on 07/03/2024, patient remains quite symptomatic continues to have cough wheezing and shortness of breath patient is on maximal therapy including oxygen, bronchodilators, steroids, and on Tamiflu. Patient does not believe that he is improving although on physical examination he does have diminished breath sounds bilaterally with minimal wheezing more so on forced expiratory m aneuver. Labs showed WBC count of 11.5 hemoglobin 11.6 electrolytes are normal except for elevated bicarb of 46 which is expected BUN is 38 creatinine 1.25. Chest x-ray on admission showed mostly COPD, no acute process was noted, no evidence of pneumonia. Patient was seen on 07/04/2024, remains quite symptomatic with intermittent episodes of cough and wheezing and shortness of breath, patient tells me that he is even short of breath at rest and with any minimal activity. On physical examination continues to have wheezing bilaterally more so on forced expiratory maneuver labs today showed leukocytosis and elevated bicarb of 46, otherwise the rest of his labs were unremarkable he does have chronic kidney disease, creatinine today is 1.35 slightly improved compared to creatinine on admission of 1.51 Patient was seen today on 07/05/2024, remains symptomatic continues to have cough wheezing and shortness of breath, patient keeps complaining of no significant improvement, and he is not back to his baseline. In the meantime he seems to be very comfortable, not in any distress, on physical examination he has diminished breath sound bilaterally some wheezing on forced expiratory maneuver. His WBC count is 16.9 hemoglobin is 12.0 basic metabolic profile is normal bicarb is 45 BUN is 39 creatinine 1.39 Patient was seen today on 07/06/2024, continues to complain of not feeling well, less cough less wheezing, but complaining of shortness of breath, no fever no chills no hemoptysis. No fever no chills no hemoptysis Objective - Vital Signs Vital signs: Vital Signs Temp 98.2 F 07/06/24 15:30 Pulse 87 07/06/24 15:30 Resp 20 07/06/24 15:30 BP 143/71 07/06/24 15:30 Pulse Ox 91 L 07/06/24 15:30 FiO2 35 07/06/24 00:04 Intake & Output 07/05/24 07/06/24 07/06/24 18:59 06:59 18:59 Intake Total 660 480 Output Total 1700 600 Balance -1040 -120 Weight 102.7 kg 102.6 kg Intake: Oral 660 480 Output: Urine 1700 600 Other: Voiding Method Urinal Urinal Urinal # Voids 1 - Exam GENERAL EXAM: Revealed 78-year-old white male on 4 L nasal cannula seems to be comfortable, O2 saturation 93% HEAD: Normocephalic. Atraumatic EYES: Normal reaction of pupils, equal size. NOSE: Clear with pink turbinates. THROAT: No erythema or exudates. NECK: No masses, no JVD. CHEST: No chest wall deformity. LUNGS: Diminished breath sound bilaterally some wheezing bilaterally is noted CVS: S1 and S2 normal with no audible murmur, regular rhythm. ABDOMEN: No hepatosplenomegaly, normal bowel sounds, no guarding or rigidity. SKIN: No rashes CENTRAL NERVOUS SYSTEM: Alert and oriented x 3 no gross focal deficit EXTREMITIES: No clubbing edema or cyanosis - Labs CBC & Chem 7: 07/06/24 06:44 07/06/24 06:44 Labs: Abnormal Lab Results - Last 24 Hours (Table) 07/05/24 07/05/24 07/06/24 Range/Units 16:49 20:16 06:24 WBC (3.8-10.6) k/uL RBC (4.30-5.90) m/uL Hgb (13.0-17.5) gm/dL MCV (80.0-100.0) fL MCHC (31.0-37.0) g/dL Neutrophils # (1.3-7.7) k/uL Lymphocytes # (1.0-4.8) k/uL Sodium (137-145) mmol/L Chloride (98-107) mmol/L Carbon Dioxide (22-30) mmol/L BUN (9-20) mg/dL Glucose (74-99) mg/dL POC Glucose (mg/dL) 141 H 170 H 171 H (70-110) mg/dL Total Protein (6.3-8.2) g/dL Albumin (3.5-5.0) g/dL 07/06/24 07/06/24 07/06/24 Range/Units 06:44 06:44 11:12 WBC 16.6 H (3.8-10.6) k/uL RBC 3.86 L (4.30-5.90) m/uL Hgb 11.9 L (13.0-17.5) gm/dL MCV 101.5 H (80.0-100.0) fL MCHC 30.4 L (31.0-37.0) g/dL Neutrophils # 15.4 H (1.3-7.7) k/uL Lymphocytes # 0.4 L (1.0-4.8) k/uL Sodium 134 L (137-145) mmol/L Chloride 88 L (98-107) mmol/L Carbon Dioxide 40 H (22-30) mmol/L BUN 46 H (9-20) mg/dL Glucose 139 H (74-99) mg/dL POC Glucose (mg/dL) 122 H (70-110) mg/dL Total Protein 5.7 L (6.3-8.2) g/dL Albumin 3.1 L (3.5-5.0) g/dL Assessment and Plan Assessment: Impression: Acute COPD exacerbation secondary to influenza A infection, currently on 4 L/min per nasal cannula. Acute influenza A infection. Chest x-ray shows chronic changes consistent with COPD, the patient is currently on Tamiflu Acute on chronic hypoxic respiratory failure, secondary to above Chronic hypercapnic respiratory failure, acid-base status and blood gas is compensated. Severe oxygen and steroid dependent chronic obstructive pulmonary disease, most recent FEV1 19 % of predicted, maintained on AVAPS machine at home. The patient is also oxygen dependent and the patient has been maintained on a combination of Wixela and Spiriva on outpatient basis. Chronic hypoxemic and hypercapnic respiratory, normally on 2-4 L/min nasal cannula 29/11 Chronic ongoing tobacco dependence and secondhand smoke exposure Obstructive sleep apnea, with home AVAPS machine Recent acute COVID-19 infection Obesity, with a BMI of 33 kg/m Paroxysmal atrial fibrillation, currently in normal sinus rhythm, anticoagulated on Eliquis Hypertension History of renal cancer status post right nephrectomy Recommendation: Continue present supportive care measures Continue bronchodilators and continue Solu-Medrol Continue doxycycline Titrate FiO2 accordingly Remains quite symptomatic and not ready for discharge If no improvement by next week, may have to be considered for bronchoscopy and BAL Will continue to follow Time with Patient: Less than 30
[2024-07-06 16:57] LABS: Glucose,Whole Blood 132 mg/dL (70-110)
[2024-07-06 20:04] LABS: Glucose,Whole Blood 154 mg/dL (70-110)
[2024-07-07] MEDS: FLUTICASONE NASAL 50MCG/SPRAY 16GM BTL EA NOSTRIL PRN (00:24)
[2024-07-07 06:32] LABS: Glucose,Whole Blood 109 mg/dL (70-110)
[2024-07-07 07:17] LABS: Basophils % (A) 0 %; Eosinophils % (A) 0 %; HGB 11.5 gm/dL (13.0-17.5); Hypochromasia Moderate; Lymphocytes # (A) 0.8 k/uL (1.0-4.8); Lymphocytes % (A) 7 %; MCH 30.9 pg (25.0-35.0); MCHC 30.4 g/dL (31.0-37.0); MCV 101.6 fL (80.0-100.0); Macrocytosis Slight; Mean Platelet Volume 7.2; Monocytes # (A) 0.8 k/uL (0-1.0); Monocytes % (A) 7 %; Neutrophils # (A) 10.3 k/uL (1.3-7.7); Neutrophils % (A) 84 %; Platelet Count 250 k/uL (150-450); RBC 3.74 m/uL (4.30-5.90); WBC 12.3 k/uL (3.8-10.6)
[2024-07-07 07:26] LABS: African American GFR (CKD) 54 (>60 ml/min/1.73 sqM); Blood Urea Nitrogen 43 mg/dL (9-20); Chloride 85 mmol/L (98-107); Glucose 92 mg/dL (74-99); Non-African American GFR(CKD) 47 (>60 ml/min/1.73 sqM); Potassium 4.2 mmol/L (3.5-5.1); Sodium 134 mmol/L (137-145)
[2024-07-07 07:35] LABS: Anion Gap 4 mmol/L
[2024-07-07 07:43] LABS: Carbon Dioxide 45 mmol/L (22-30)
[2024-07-07] MEDS: predniSONE 20 MG TAB PO SCH (09:24)
[2024-07-07 12:06] LABS: Glucose,Whole Blood 235 mg/dL (70-110)
--- NOTE | 2024-07-07 13:20 | P.PN ---
Subjective Progress Note Date: 07/07/24 Hospital Course: 78-year-old male with a past medical history of COPD with chronic hypoxic resp iratory failure home oxygen dependent on 2 L follows with help aid Dr. Ware, nicotine dependence, hypertension, hyperlipidemia, chronic heart failure with EF of 55 to 60%, paroxysmal atrial fibrillation on anticoagulation with Eliquis, renal cell carcinoma status post right nephrectomy with chronic kidney disease stage IIIa, macular degeneration, and peripheral neuropathy. He presented to the hospital with a chief complaint of shortness of breath. Patient recently underwent hospitalization for COPD exacerbation 06/23-06/25 for COPD exacerbation. Patient reports going home, completing his steroids and feeling well up until about 2 days ago when he again began to develop worsening shortness of breath accompanied by a nonproductive cough. He reports that he was increasing his oxygen to 4 L but this did not even help and his shortness of breath progressively worsened accompanied by generalized bodyaches, diaphoresis and fatigue so he called EMS for transport to the hospital. Upon arrival to our facility, patient underwent evaluation in the emergency department. Vital signs upon arrival show blood pressure 92/65, heart rate 51, respiratory rate 26, temp 100.9 F, and SpO2 of 92% on 4 L. EKG was completed showing sinus tachycardia at 109 bpm with moderate interference. Chest x-ray completed showing findings of COPD with hyperinflation and flattening of the diaphragm but negative for acute cardiopulmonary process. Labs completed and reviewed. CBC showing leukocytosis with WBC count of 10.7, hemoglobin of 12.3, platelet count of 153 with mild macrocytosis with elevated MCV of 101.7. Coagulation profile showing a low PTT of 21.9. BMP showing metabolic alkalosis with chloride of 89, bicarb of 40, and anion gap of 8 and renal function consistent with known stage III CKD with BUN of 33, creatinine of 1.51, GFR 44. Blood glucose was 109. Lactic acid was 1.1. Calcium 8.8. Magnesium 1.8. Liver profile unremarkable. Troponin was elevated at 0.057 and proBNP 717. Patient initially requiring 4 L O2 in the emergency department however there were concerns for increasing lethargy with increased work of breathing and patient was placed on continuous BiPAP. Yumiko ent's mentation significantly improved shortly after being placed on BiPAP. At time of admission respirations even, regular, and unlabored on BiPAP and patient able to speak in full sentences at this time. Patient admitted under our services with consultation to cardiology for elevated troponins and pulmonology for acute on chronic respiratory failure. Cardiology not recommending any further interventions. Influenza A positive. Patient still requiring high amounts of oxygen, and BiPAP at night. Completed course of Tamiflu. Subjective: Patient seen and examined at bedside. No acute events overnight. Still having cough mostly nonproductive. Uses 2 L of oxygen at home. Currently on 4 L. Pertinent positives and negatives as discussed above, a complete review of systems was performed and all other systems are negative. Vitals Signs Reviewed. General: Nontoxic, no distress, appears at stated age Derm: Warm, dry Head: Atraumatic, normocephalic, symmetric Eyes: EOMI, no lid lag, anicteric sclera Mouth: No lip lesion, mucus membranes moist Cardiovascular: S1S2 reg, no murmur Lungs: Bibasilar rhonchi, no accessory muscle use, supplemental oxygen Abdominal: Soft, nontender to palpation, no guarding, no appreciable organomegaly Ext: No gross muscle atrophy, no edema, no contractures Neuro: CN II-XI grossly intact, no focal neuro deficits Psych: Alert, oriented, appropriate affect Data Reviewed Today: Pertinent Labs: WBC 12.3, hemoglobin 11.5, bicarb 45, creatinine 1.43, blood glucose range between 92-2 35 Imaging: No new imaging Assessment and Plan: Acute on chronic hypoxic and hypercarbic respiratory failure Acute COPD exacerbation Influenza A infection Sepsis on arrival, secondary to influenza infection -Pulmonology following, plan as below, may need a bronch if no improvement -Wean oxygen -Duonebs scheduled 4 times daily and as needed for SOB and/or wheezing -Steroids: prednisone 40 daily -Completed 5-day course of Tamiflu on 07/03/2024. -Continue Symbicort 160-4.5 mcg inhaler 2 puffs twice daily and Roflumilast 500 mcg daily. -Patient also continued on doxycycline 100 twice daily -Patient uses CPAP at night at home, continue BiPAP for now at night Elevated troponins, likely secondary to hypoxia and sepsis Paroxysmal atrial fibrillation Chronic diastolic heart failure with last known EF of 55 to 60% -Troponin flat -Cardiology evaluated ruling out an acute coronary event stating no need to repeat echocardiogram clearing patient from cardiac perspective recommending outpatient follow-up with Dr. Adler in 2 weeks. -Telemetry monitoring -Continue aspirin 81 mg daily, amiodarone 200 mg daily, Eliquis 5 mg twice daily, Bumex 1 mg twice daily, digoxin 125 mcg daily, and secondary to statin allergy cardiology started patient on Zetia 10 mg daily. CKD stage IIIa status post right nephrectomy. Baseline creatinine 1.3, renal adjust medications consider risk versus benefits of nephrotoxic agents. Peripheral neuropathy. Continue gabapentin 200 mg BID Depression with anxiety. Continue wellbutrin 150 mg BID. Insomina. Continue trazodone 50 mg daily DVT ppx: Eliquis Code status: Full code Anticipated discharge place: Pending clinical course Anticipated discharge time: Pending clinical course Objective - Vital Signs Vital signs: Vital Signs Temp 97.6 F 07/07/24 07:13 Pulse 84 07/07/24 13:18 Resp 18 07/07/24 07:13 BP 120/68 07/07/24 07:13 Pulse Ox 90 L 07/07/24 07:13 FiO2 35 07/06/24 00:04 Intake & Output 07/06/24 07/07/24 07/07/24 18:59 06:59 18:59 Weight 102.257 kg Other: Voiding Method Urinal # Voids 1 1 - Labs CBC & Chem 7: 07/07/24 05:48 07/07/24 05:48 Labs: Abnormal Lab Results - Last 24 Hours (Table) 07/06/24 07/06/24 07/07/24 Range/Units 16:56 20:03 05:48 WBC 12.3 H (3.8-10.6) k/uL RBC 3.74 L (4.30-5.90) m/uL Hgb 11.5 L (13.0-17.5) gm/dL Hct 38.0 L (39.0-53.0) % MCV 101.6 H (80.0-100.0) fL MCHC 30.4 L (31.0-37.0) g/dL Neutrophils # 10.3 H (1.3-7.7) k/uL Lymphocytes # 0.8 L (1.0-4.8) k/uL Sodium (137-145) mmol/L Chloride (98-107) mmol/L Carbon Dioxide (22-30) mmol/L BUN (9-20) mg/dL Creatinine (0.66-1.25) mg/dL POC Glucose (mg/dL) 132 H 154 H (70-110) mg/dL 07/07/24 07/07/24 Range/Units 05:48 12:05 WBC (3.8-10.6) k/uL RBC (4.30-5.90) m/uL Hgb (13.0-17.5) gm/dL Hct (39.0-53.0) % MCV (80.0-100.0) fL MCHC (31.0-37.0) g/dL Neutrophils # (1.3-7.7) k/uL Lymphocytes # (1.0-4.8) k/uL Sodium 134 L (137-145) mmol/L Chloride 85 L (98-107) mmol/L Carbon Dioxide 45 H* (22-30) mmol/L BUN 43 H (9-20) mg/dL Creatinine 1.43 H (0.66-1.25) mg/dL POC Glucose (mg/dL) 235 H (70-110) mg/dL
--- NOTE | 2024-07-07 14:00 | P.PN ---
Subjective Progress Note Date: 07/07/24 78-year-old male patient, admitted through emergency department for worsening shortness of breath. He has had multiple hospitalizations for the same. He was recently hospitalized and discharged on 05/25/2024 after being treated for an acute COPD exacerbation. He wears oxygen at home at 2 L/min nasal cannula and his oxygen requirements apparently been going up and while on 4 L of O2 the patient's pulse ox was 78%. Based on that, the patient came into the emergency and he was hospitalized. He has a cough, nonproductive. He was febrile upon arrival to the hospital. Based on that, the patient was admitted. His temperature was 100.9. Hemodynamically stable, slightly tachycardic, his blood work showed a white cell count of 10.7 and he was 12.3 and platelet count of 153. Sodium level is at 137, BUN 33 with a creatinine of 1.5 and a glucose of 109. The blood gas was done that showed chronic hypercapnic respiratory failure compensated with a pH of 7.37 and a pCO2 of 77 and pO2 of 82 and this was done while the patient was on a BiPAP at a pressure of 10/5 with an FiO2 of 35%. Reviewed the chest x-ray from this current admission and it is consistent with COPD. No airspace disease. No consolidation. No pneumothorax. The patient also had a viral screen that was positive for influenza A and this could have exacerbated his underlying COPD. He is currently on DuoNeb nebulized treatments [id number]. He was also started on Tamiflu. He was started on IV Solu- Medrol 40 mg every 8 hours. He also had a COVID-19 infection back in May 2024. In terms of his respiratory status, the patient COPD is advanced. He has an FEV1 of 19% of predicted. He has been maintained on a combination of Spiriva and Wixela and outpatient basis. He is also oxygen dependent. He also has a AVAPS machine at home. Other comorbidities include atrial fibrillation, macular degeneration, and renal cancer for which the patient has undergone a right nephrectomy. He has also hypertension hyperlipidemia and impaired hearing. On today's evaluation of 06/30/2024, the patient is being seen for a follow-up. The patient seems to be much more comfortable compared to yesterday. Remains on a BiPAP. On and off, he is being given brief periods of the BiPAP. At the time of my evaluation, the patient was still on the BiPAP pressure of 10 over 5 cm of water and the patient was able to generate good tidal volumes above 600 and the patient's respiratory rate is around 20. The patient remains on DuoNeb updrafts. The patient remains on Symbicort. The patient remains on IV Solu- Medrol 40 mg every 8 hours. Rest of the home medication resumed. He remains on Tamiflu. White cell count 8.7, hemoglobin 11.4 and platelet count of 153. Serum bicarb is at 41. BUN 39 with a creatinine of 1.4 and sodium levels at 135 and potassium level is at 4.4. Note that the patient has history of chronic kidney disease. No altered mentation the patient was awake and alert and communicating and following commands and answering questions appropriately. He does have chronic hypoxic and hypercapnic respiratory failure. He has a AVAPS device at home. On 07/01/2024, patient is being seen for a follow-up. Continues to have cough and congestion. Modest improvement over the past 24 hours. He is using our BiPAP device on and off during the day at a pressure of 10 over 5 cm of water. Remains on bronchodilators. Remains on steroids. Remains on Symbicort 2 puffs twice a day, DuoNeb updrafts 4 times a day, and the patient is completing course of Tamiflu. Remains on IV Solu-Medrol 40 mg every 8 hours. Oxygenation is stable on 4 L of oxygen by nasal cannula with a pulse ox of 91%. No new compl aints for now. The patient COPD is advanced with an FEV1 of 19% of predicted.Blood work from today shows a white cell count of 12.7, hemoglobin 10.8 and a platelet count of 153. BUN 38 with a creatinine 1.37 and a sodium levels at 132. The patient is seen today July 02, 2024 in follow-up on the care unit. He is currently sitting up in the chair at the bedside. Awake and alert in no acute distress. Still with a loose nonproductive cough. He remains on DuoNeb inhalations, Symbicort, Solu-Medrol. Anticoagulated with Eliquis. Procalcitonin was 0.53. He is being treated for influenza A and had recently been treated for COVID infection. Sodium 135. Potassium 4.7. Bicarb 43. BUN 40. Creatinine 1.41. Glucose 120. Containing O2 saturations in the 90s on 4 L/min per nasal cannula. He is been afebrile. Hemodynamically stable. The patient is seen today July 07, 2024 in follow-up on the regular medical floor. He is currently sitting up in the chair. Awake and alert in no acute distress. Maintaining O2 saturations in the 90s on 4 L/min per nasal cannula. He has been afebrile. Hemodynamically stable. White count 12.3. Hemoglobin 11.5. Platelets 250. Sodium 134. Potassium 4.2. Bicarb 45. BUN 43. Creatinine 1.43. Glucose 92. He remains on DuoNeb inhalations, Symbicort, Daliresp, Robitussin. Empiric antibiotics in the form of doxycycline. Remains on a prednisone taper. Anticoagulated with Eliquis. Objective - Vital Signs Vital signs: Vital Signs Temp 97.6 F 07/07/24 07:13 Pulse 84 07/07/24 13:18 Resp 18 07/07/24 07:13 BP 120/68 07/07/24 07:13 Pulse Ox 90 L 07/07/24 07:13 FiO2 35 07/06/24 00:04 Intake & Output 07/06/24 07/07/24 07/07/24 18:59 06:59 18:59 Weight 102.257 kg Other: Voiding Method Urinal # Voids 1 1 - Exam GENERAL EXAM: Alert, 78-year-old male, up in a chair, on 4 L nasal cannula, in no apparent distress. HEAD: Normocephalic. EYES: Normal reaction of pupils, equal size. NOSE: Clear with pink turbinates. THROAT: No erythema or exudates. NECK: No masses, no JVD. CHEST: No chest wall deformity. LUNGS: Equal air entry with bilateral wheeze, few scattered rhonchi. CVS: S1 and S2 normal with no audible murmur, regular rhythm. ABDOMEN: No hepatosplenomegaly, normal bowel sounds, no guarding or rigidity. SPINE: No scoliosis or deformity SKIN: No rashes CENTRAL NERVOUS SYSTEM: No focal deficits, tone is normal in all 4 extremities. EXTREMITIES: There is no peripheral edema. No clubbing, no cyanosis. Peripheral pulses are intact. - Labs CBC & Chem 7: 07/07/24 05:48 07/07/24 05:48 Labs: Abnormal Lab Results - Last 24 Hours (Table) 07/06/24 07/06/24 07/07/24 Range/Units 16:56 20:03 05:48 WBC 12.3 H (3.8-10.6) k/uL RBC 3.74 L (4.30-5.90) m/uL Hgb 11.5 L (13.0-17.5) gm/dL Hct 38.0 L (39.0-53.0) % MCV 101.6 H (80.0-100.0) fL MCHC 30.4 L (31.0-37.0) g/dL Neutrophils # 10.3 H (1.3-7.7) k/uL Lymphocytes # 0.8 L (1.0-4.8) k/uL Sodium (137-145) mmol/L Chloride (98-107) mmol/L Carbon Dioxide (22-30) mmol/L BUN (9-20) mg/dL Creatinine (0.66-1.25) mg/dL POC Glucose (mg/dL) 132 H 154 H (70-110) mg/dL 07/07/24 07/07/24 Range/Units 05:48 12:05 WBC (3.8-10.6) k/uL RBC (4.30-5.90) m/uL Hgb (13.0-17.5) gm/dL Hct (39.0-53.0) % MCV (80.0-100.0) fL MCHC (31.0-37.0) g/dL Neutrophils # (1.3-7.7) k/uL Lymphocytes # (1.0-4.8) k/uL Sodium 134 L (137-145) mmol/L Chloride 85 L (98-107) mmol/L Carbon Dioxide 45 H* (22-30) mmol/L BUN 43 H (9-20) mg/dL Creatinine 1.43 H (0.66-1.25) mg/dL POC Glucose (mg/dL) 235 H (70-110) mg/dL Assessment and Plan Assessment: Acute COPD exacerbation secondary to influenza A infection, currently on 4 L/min per nasal cannula. Clinically improved and the patient seems to be less short of breath. No signs of any CO2 narcosis. The patient is currently off BiPAP Acute influenza A infection. Chest x-ray shows chronic changes consistent with COPD, the patient is currently on Tamiflu Acute on chronic hypoxic respiratory failure, secondary to above Chronic hypercapnic respiratory failure, acid-base status and blood gas is com pensated. Severe oxygen and steroid dependent chronic obstructive pulmonary disease, most recent FEV1 19 % of predicted, maintained on AVAPS machine at home. The patient is also oxygen dependent and the patient has been maintained on a combination of Wixela and Spiriva on outpatient basis. Chronic hypoxemic and hypercapnic respiratory, normally on 2-4 L/min nasal cannula 29/11 Chronic ongoing tobacco dependence and secondhand smoke exposure Obstructive sleep apnea, with home AVAPS machine Recent acute COVID-19 infection Obesity, with a BMI of 33 kg/m Paroxysmal atrial fibrillation, currently in normal sinus rhythm, anticoagulated on Eliquis Hypertension History of renal cancer status post right nephrectomy Plan: The patient was seen and evaluated He has been slow to progress Needs increased encouragement to increase his activity Labs and medications reviewed Continue bronchodilators, steroids Continue his home Daliresp Empiric antibiotics Titrate the FiO2 as tolerated Anticoagulated with Eliquis Plan is for [facility] at discharge I have personally seen and examined the patient, performed the documentation and the assessment and plan as written. Number of minutes spent on the visit: 10 Dictation was produced using [employer] dictation software. Please excuse any grammatical, word or spelling errors.
[2024-07-07] MEDS: guaiFENesin 600 MG TABLET.ER PO PRN (16:38)
[2024-07-07 17:15] LABS: Glucose,Whole Blood 126 mg/dL (70-110)
[2024-07-07 20:44] LABS: Glucose,Whole Blood 117 mg/dL (70-110)
[2024-07-07] MEDS ORDERED: MELATONIN 5 MG TABLET PO PRN (23:16)
[2024-07-07] MEDS: ONDANSETRON 4 MG/2 ML VIAL IM STA (23:35)
[2024-07-08 06:24] LABS: Glucose,Whole Blood 107 mg/dL (70-110)
[2024-07-08 07:44] VITALS: RESP 18
--- NOTE | 2024-07-08 09:32 | XR ---
EXAMINATION TYPE: XR chest 1V DATE OF EXAM: 07/08/2024 9:26 AM COMPARISON: Multiple radiographs, with the most recent on 06/29/2024. TECHNIQUE: XR chest 1V Frontal view of the chest. CLINICAL INDICATION:Male, 78 years old with history of COPD; FINDINGS: Lungs/Pleura: Hyperinflation. No evidence of pneumothorax, pleural effusion or focal consolidation. C hronic senescent parenchymal change. Pulmonary vascularity: Unremarkable. Heart/mediastinum: Cardiomediastinal silhouette is prominent in size. Musculoskeletal: No acute osseous pathology. IMPRESSION: 1. No acute cardiopulmonary disease process. 2. COPD changes. [facility], , 07/08/2024 9:29 AM
[2024-07-08 09:46] LABS: Basophils # (A) 0.08 X 10*3/uL (0.00-0.10); Basophils % (A) 0.6 %; Eosinophils # (A) 0.02 X 10*3/uL (0.04-0.35); Eosinophils % (A) 0.1 %; HCT 45.9 % (39.6-50.0); HGB 13.7 g/dL (13.0-17.0); Lymphocytes # (A) 0.29 X 10*3/uL (0.90-5.00); Lymphocytes % (A) 2.1 %; MCH 30.9 pg (27.0-32.0); MCHC 29.8 g/dL (32.0-37.0); MCV 103.4 FL (80.0-97.0); Mean Platelet Volume 9.5 FL (9.5-12.2); Monocytes # (A) 0.75 X 10*3/uL (0.20-1.00); Monocytes % (A) 5.5 %; NRBC Per 100 WBC 0 X 10*3/uL (0.00-0.01); Neutrophils # (A) 12.16 X 10*3/uL (1.80-7.70); Neutrophils % (A) 88.9 %; Platelet Count 288 X 10*3/uL (140-440); RBC 4.44 X 10*6/uL (4.40-5.60); RDW 14.2 % (11.5-14.5); WBC 13.69 X 10*3/uL (4.50-10.00)
[2024-07-08 10:24] LABS: Calcium 8.6 mg/dL (8.7-10.3); Carbon Dioxide 39.7 mmol/L (21.6-31.8); Chloride 92 mmol/L (96-109); Glucose 106 mg/dL (70-110); Potassium 4.4 mmol/L (3.5-5.5); Sodium 144 mmol/L (135-145)
[2024-07-08 11:40] LABS: Glucose,Whole Blood 132 mg/dL (70-110)
--- NOTE | 2024-07-08 11:53 | P.PN ---
Subjective Progress Note Date: 07/08/24 Hospital Course: 78-year-old male with a past medical history of COPD with chronic hypoxic resp iratory failure home oxygen dependent on 2 L follows with kitchen designer Dr. Ware, nicotine dependence, hypertension, hyperlipidemia, chronic heart failure with EF of 55 to 60%, paroxysmal atrial fibrillation on anticoagulation with Eliquis, renal cell carcinoma status post right nephrectomy with chronic kidney disease stage IIIa, macular degeneration, and peripheral neuropathy. He presented to the hospital with a chief complaint of shortness of breath. Patient recently underwent hospitalization for COPD exacerbation 06/23-06/25 for COPD exacerbation. Patient reports going home, completing his steroids and feeling well up until about 2 days ago when he again began to develop worsening shortness of breath accompanied by a nonproductive cough. He reports that he was increasing his oxygen to 4 L but this did not even help and his shortness of breath progressively worsened accompanied by generalized bodyaches, diaphoresis and fatigue so he called EMS for transport to the hospital. Upon arrival to our facility, patient underwent evaluation in the emergency department. Vital signs upon arrival show blood pressure 92/65, heart rate 51, respiratory rate 26, temp 100.9 F, and SpO2 of 92% on 4 L. EKG was completed showing sinus tachycardia at 109 bpm with moderate interference. Chest x-ray completed showing findings of COPD with hyperinflation and flattening of the diaphragm but negative for acute cardiopulmonary process. Labs completed and reviewed. CBC showing leukocytosis with WBC count of 10.7, hemoglobin of 12.3, platelet count of 153 with mild macrocytosis with elevated MCV of 101.7. Coagulation profile showing a low PTT of 21.9. BMP showing metabolic alkalosis with chloride of 89, bicarb of 40, and anion gap of 8 and renal function consistent with known stage III CKD with BUN of 33, creatinine of 1.51, GFR 44. Blood glucose was 109. Lactic acid was 1.1. Calcium 8.8. Magnesium 1.8. Liver profile unremarkable. Troponin was elevated at 0.057 and proBNP 717. Patient initially requiring 4 L O2 in the emergency department however there were concerns for increasing lethargy with increased work of breathing and patient was placed on continuous BiPAP. Yumiko ent's mentation significantly improved shortly after being placed on BiPAP. At time of admission respirations even, regular, and unlabored on BiPAP and patient able to speak in full sentences at this time. Patient admitted under our services with consultation to cardiology for elevated troponins and pulmonology for acute on chronic respiratory failure. Cardiology not recommending any further interventions. Influenza A positive. Patient still requiring high amounts of oxygen, and BiPAP at night. Completed course of Tamiflu. Subjective: Patient seen and examined at bedside. No acute events overnight. Still having cough mostly nonproductive. Uses 2 L of oxygen at home. Currently on 4 L. Pertinent positives and negatives as discussed above, a complete review of systems was performed and all other systems are negative. Vitals Signs Reviewed. General: Nontoxic, no distress, appears at stated age Derm: Warm, dry Head: Atraumatic, normocephalic, symmetric Eyes: EOMI, no lid lag, anicteric sclera Mouth: No lip lesion, mucus membranes moist Cardiovascular: S1S2 reg, no murmur Lungs: Bibasilar rhonchi, no accessory muscle use, supplemental oxygen Abdominal: Soft, nontender to palpation, no guarding, no appreciable organomegaly Ext: No gross muscle atrophy, no edema, no contractures Neuro: CN II-XI grossly intact, no focal neuro deficits Psych: Alert, oriented, appropriate affect Data Reviewed Today: Pertinent Labs: WBC 13.6, Bicarb 39.7, creatinine 1.6, blood sugars range between 10 6-1 32 Imaging: No new imaging Assessment and Plan: Acute on chronic hypoxic and hypercarbic respiratory failure Acute COPD exacerbation Influenza A infection Sepsis on arrival, secondary to influenza infection -Pulmonology following, plan as below, may need a bronch if no improvement -Wean oxygen -Duonebs scheduled 4 times daily and as needed for SOB and/or wheezing -Steroids: prednisone 40 daily, will need a taper -Completed 5-day course of Tamiflu on 07/03/2024. -Continue Symbicort 160-4.5 mcg inhaler 2 puffs twice daily and Roflumilast 500 mcg daily. -Patient also continued on doxycycline 100 twice daily -Patient uses CPAP at night at home, continue BiPAP for now at night Elevated troponins, likely secondary to hypoxia and sepsis Paroxysmal atrial fibrillation Chronic diastolic heart failure with last known EF of 55 to 60% -Troponin flat -Cardiology evaluated ruling out an acute coronary event stating no need to repeat echocardiogram clearing patient from cardiac perspective recommending outpatient follow-up with Dr. Adler in 2 weeks. -Telemetry monitoring -Continue aspirin 81 mg daily, amiodarone 200 mg daily, Eliquis 5 mg twice daily, Bumex 1 mg twice daily, digoxin 125 mcg daily, and secondary to statin allergy cardiology started patient on Zetia 10 mg daily. CKD stage IIIa status post right nephrectomy. Baseline creatinine 1.3, renal adjust medications consider risk versus benefits of nephrotoxic agents. -Creatinine slightly up trended, continue to follow Peripheral neuropathy. Continue gabapentin 200 mg BID Depression with anxiety. Continue wellbutrin 150 mg BID. Insomina. Continue trazodone 50 mg daily DVT ppx: Eliquis Code status: Full code Anticipated discharge place: [facility] Anticipated discharge time: Pending clinical course Objective - Vital Signs Vital signs: Vital Signs Temp 99.1 F 07/08/24 07:19 Pulse 89 07/08/24 09:02 Resp 18 07/08/24 07:19 BP 100/66 07/08/24 07:19 Pulse Ox 93 L 07/08/24 08:55 FiO2 35 07/06/24 00:04 Intake & Output 07/07/24 07/08/24 07/08/24 18:59 06:59 18:59 Output Total 450 Balance -450 Weight 99.7 kg Output: Urine 450 Other: Voiding Method Urinal # Voids 4 1 # Bowel Movements 1 1 - Labs CBC & Chem 7: 07/08/24 05:36 07/08/24 05:36 Labs: Abnormal Lab Results - Last 24 Hours (Table) 07/07/24 07/07/24 07/07/24 Range/Units 12:05 17:13 20:43 WBC (4.50-10.00) X 10*3/uL MCV (80.0-97.0) FL MCHC (32.0-37.0) g/dL Immature Gran # (0.00-0.04) X 10*3/uL Neutrophils # (1.80-7.70) X 10*3/uL Lymphocytes # (0.90-5.00) X 10*3/uL Eosinophils # (0.04-0.35) X 10*3/uL Chloride (96-109) mmol/L Carbon Dioxide (21.6-31.8) mmol/L Anion Gap (4.00-12.00) mmol/L BUN (9.0-27.0) mg/dL Creatinine (0.6-1.5) mg/dL Est GFR (CKD-EPI) (>=60) BUN/Creatinine Ratio (12.00-20.00) Ratio POC Glucose (mg/dL) 235 H 126 H 117 H (70-110) mg/dL Calcium (8.7-10.3) mg/dL 07/08/24 07/08/24 07/08/24 Range/Units 05:36 05:36 11:39 WBC 13.69 H (4.50-10.00) X 10*3/uL MCV 103.4 H (80.0-97.0) FL MCHC 29.8 L (32.0-37.0) g/dL Immature Gran # 0.39 H (0.00-0.04) X 10*3/uL Neutrophils # 12.16 H (1.80-7.70) X 10*3/uL Lymphocytes # 0.29 L (0.90-5.00) X 10*3/uL Eosinophils # 0.02 L (0.04-0.35) X 10*3/uL Chloride 92 L (96-109) mmol/L Carbon Dioxide 39.7 H (21.6-31.8) mmol/L Anion Gap 12.30 H (4.00-12.00) mmol/L BUN 48.0 H (9.0-27.0) mg/dL Creatinine 1.6 H (0.6-1.5) mg/dL Est GFR (CKD-EPI) 44 L (>=60) BUN/Creatinine Ratio 30.00 H (12.00-20.00) Ratio POC Glucose (mg/dL) 132 H (70-110) mg/dL Calcium 8.6 L (8.7-10.3) mg/dL
--- NOTE | 2024-07-08 12:54 | P.PN ---
Subjective Progress Note Date: 07/08/24 78-year-old male patient, admitted through emergency department for worsening shortness of breath. He has had multiple hospitalizations for the same. He was recently hospitalized and discharged on 05/25/2024 after being treated for an acute COPD exacerbation. He wears oxygen at home at 2 L/min nasal cannula and his oxygen requirements apparently been going up and while on 4 L of O2 the patient's pulse ox was 78%. Based on that, the patient came into the emergency and he was hospitalized. He has a cough, nonproductive. He was febrile upon arrival to the hospital. Based on that, the patient was admitted. His temperature was 100.9. Hemodynamically stable, slightly tachycardic, his blood work showed a white cell count of 10.7 and he was 12.3 and platelet count of 153. Sodium level is at 137, BUN 33 with a creatinine of 1.5 and a glucose of 109. The blood gas was done that showed chronic hypercapnic respiratory failure compensated with a pH of 7.37 and a pCO2 of 77 and pO2 of 82 and this was done while the patient was on a BiPAP at a pressure of 10/5 with an FiO2 of 35%. Reviewed the chest x-ray from this current admission and it is consistent with COPD. No airspace disease. No consolidation. No pneumothorax. The patient also had a viral screen that was positive for influenza A and this could have exacerbated his underlying COPD. He is currently on DuoNeb nebulized treatments [id number]. He was also started on Tamiflu. He was started on IV Solu- Medrol 40 mg every 8 hours. He also had a COVID-19 infection back in May 2024. In terms of his respiratory status, the patient COPD is advanced. He has an FEV1 of 19% of predicted. He has been maintained on a combination of Spiriva and Wixela and outpatient basis. He is also oxygen dependent. He also has a AVAPS machine at home. Other comorbidities include atrial fibrillation, macular degeneration, and renal cancer for which the patient has undergone a right nephrectomy. He has also hypertension hyperlipidemia and impaired hearing. On today's evaluation of 06/30/2024, the patient is being seen for a follow-up. The patient seems to be much more comfortable compared to yesterday. Remains on a BiPAP. On and off, he is being given brief periods of the BiPAP. At the time of my evaluation, the patient was still on the BiPAP pressure of 10 over 5 cm of water and the patient was able to generate good tidal volumes above 600 and the patient's respiratory rate is around 20. The patient remains on DuoNeb updrafts. The patient remains on Symbicort. The patient remains on IV Solu- Medrol 40 mg every 8 hours. Rest of the home medication resumed. He remains on Tamiflu. White cell count 8.7, hemoglobin 11.4 and platelet count of 153. Serum bicarb is at 41. BUN 39 with a creatinine of 1.4 and sodium levels at 135 and potassium level is at 4.4. Note that the patient has history of chronic kidney disease. No altered mentation the patient was awake and alert and communicating and following commands and answering questions appropriately. He does have chronic hypoxic and hypercapnic respiratory failure. He has a AVAPS device at home. On 07/01/2024, patient is being seen for a follow-up. Continues to have cough and congestion. Modest improvement over the past 24 hours. He is using our BiPAP device on and off during the day at a pressure of 10 over 5 cm of water. Remains on bronchodilators. Remains on steroids. Remains on Symbicort 2 puffs twice a day, DuoNeb updrafts 4 times a day, and the patient is completing course of Tamiflu. Remains on IV Solu-Medrol 40 mg every 8 hours. Oxygenation is stable on 4 L of oxygen by nasal cannula with a pulse ox of 91%. No new compl aints for now. The patient COPD is advanced with an FEV1 of 19% of predicted.Blood work from today shows a white cell count of 12.7, hemoglobin 10.8 and a platelet count of 153. BUN 38 with a creatinine 1.37 and a sodium levels at 132. The patient is seen today July 02, 2024 in follow-up on the care unit. He is currently sitting up in the chair at the bedside. Awake and alert in no acute distress. Still with a loose nonproductive cough. He remains on DuoNeb inhalations, Symbicort, Solu-Medrol. Anticoagulated with Eliquis. Procalcitonin was 0.53. He is being treated for influenza A and had recently been treated for COVID infection. Sodium 135. Potassium 4.7. Bicarb 43. BUN 40. Creatinine 1.41. Glucose 120. Containing O2 saturations in the 90s on 4 L/min per nasal cannula. He is been afebrile. Hemodynamically stable. The patient is seen today July 07, 2024 in follow-up on the regular medical floor. He is currently sitting up in the chair. Awake and alert in no acute distress. Maintaining O2 saturations in the 90s on 4 L/min per nasal cannula. He has been afebrile. Hemodynamically stable. White count 12.3. Hemoglobin 11.5. Platelets 250. Sodium 134. Potassium 4.2. Bicarb 45. BUN 43. Creatinine 1.43. Glucose 92. He remains on DuoNeb inhalations, Symbicort, Daliresp, Robitussin. Empiric antibiotics in the form of doxycycline. Remains on a prednisone taper. Anticoagulated with Eliquis. The patient is seen today July 08, 2024 in follow-up on the regular medical floor. He is awake and alert in no acute distress. Sitting up in a chair. Denies any worsening shortness of breath, cough or congestion. Maintaining O2 saturations in the 90s on 4 L/min per nasal cannula. He has been slow to progress. Needs increased encouragement regarding increasing his activity. He is continued on DuoNeb and elations, Symbicort, Robitussin, Mucinex, Daliresp, prednisone. He is anticoagulated with Eliquis. He is on empiric antibiotics in the form of doxycycline. Follow-up chest x-ray continues to show no acute pulmonary process. Evidence of COPD. White count 13.6. Hemoglobin 13.7. Platelets 288. Sodium 144. Potassium 4.4. Bicarb 40. BUN 48. Creatinine 1.6. Glucose 106. Objective - Vital Signs Vital signs: Vital Signs Temp 99.1 F 07/08/24 07:19 Pulse 89 07/08/24 09:02 Resp 18 07/08/24 07:19 BP 100/66 07/08/24 07:19 Pulse Ox 93 L 07/08/24 08:55 FiO2 35 07/06/24 00:04 Intake & Output 07/07/24 07/08/24 07/08/24 18:59 06:59 18:59 Output Total 450 Balance -450 Weight 99.7 kg Output: Urine 450 Other: Voiding Method Urinal # Voids 4 1 # Bowel Movements 1 1 - Exam GENERAL EXAM: Alert, weak 78-year-old male, up in a chair, on 4 L nasal cannula, in no apparent distress. HEAD: Normocephalic. EYES: Normal reaction of pupils, equal size. NOSE: Clear with pink turbinates. THROAT: No erythema or exudates. NECK: No masses, no JVD. CHEST: No chest wall deformity. LUNGS: Equal air entry with bilateral wheeze, few scattered rhonchi. CVS: S1 and S2 normal with no audible murmur, regular rhythm. ABDOMEN: No hepatosplenomegaly, normal bowel sounds, no guarding or rigidity. SPINE: No scoliosis or deformity SKIN: No rashes CENTRAL NERVOUS SYSTEM: No focal deficits, tone is normal in all 4 extremities. EXTREMITIES: There is no peripheral edema. No clubbing, no cyanosis. Peripheral pulses are intact. - Labs CBC & Chem 7: 07/08/24 05:36 07/08/24 05:36 Labs: Abnormal Lab Results - Last 24 Hours (Table) 07/07/24 07/07/24 07/08/24 Range/Units 17:13 20:43 05:36 WBC 13.69 H (4.50-10.00) X 10*3/uL MCV 103.4 H (80.0-97.0) FL MCHC 29.8 L (32.0-37.0) g/dL Immature Gran # 0.39 H (0.00-0.04) X 10*3/uL Neutrophils # 12.16 H (1.80-7.70) X 10*3/uL Lymphocytes # 0.29 L (0.90-5.00) X 10*3/uL Eosinophils # 0.02 L (0.04-0.35) X 10*3/uL Chloride (96-109) mmol/L Carbon Dioxide (21.6-31.8) mmol/L Anion Gap (4.00-12.00) mmol/L BUN (9.0-27.0) mg/dL Creatinine (0.6-1.5) mg/dL Est GFR (CKD-EPI) (>=60) BUN/Creatinine Ratio (12.00-20.00) Ratio POC Glucose (mg/dL) 126 H 117 H (70-110) mg/dL Calcium (8.7-10.3) mg/dL 07/08/24 07/08/24 Range/Units 05:36 11:39 WBC (4.50-10.00) X 10*3/uL MCV (80.0-97.0) FL MCHC (32.0-37.0) g/dL Immature Gran # (0.00-0.04) X 10*3/uL Neutrophils # (1.80-7.70) X 10*3/uL Lymphocytes # (0.90-5.00) X 10*3/uL Eosinophils # (0.04-0.35) X 10*3/uL Chloride 92 L (96-109) mmol/L Carbon Dioxide 39.7 H (21.6-31.8) mmol/L Anion Gap 12.30 H (4.00-12.00) mmol/L BUN 48.0 H (9.0-27.0) mg/dL Creatinine 1.6 H (0.6-1.5) mg/dL Est GFR (CKD-EPI) 44 L (>=60) BUN/Creatinine Ratio 30.00 H (12.00-20.00) Ratio POC Glucose (mg/dL) 132 H (70-110) mg/dL Calcium 8.6 L (8.7-10.3) mg/dL Assessment and Plan Assessment: Acute COPD exacerbation secondary to influenza A infection, currently on 4 L/min per nasal cannula. Clinically improved and the patient seems to be less short of breath. No signs of any CO2 narcosis. The patient is currently off BiPAP. Chest x-rays continue to show no acute pulmonary process. Evidence of COPD. Acute influenza A infection. Completed Tamiflu Acute on chronic hypoxic respiratory failure, secondary to above Chronic hypercapnic respiratory failure, acid-base status and blood gas is compensated Severe oxygen and steroid dependent chronic obstructive pulmonary disease, most recent FEV1 19 % of predicted, maintained on AVAPS machine at home. The patient is also oxygen dependent and the patient has been maintained on a combination of Wixela and Spiriva on outpatient basis. Chronic hypoxemic and hypercapnic respiratory, normally on 2-4 L/min nasal cannula 29/11 Chronic ongoing tobacco dependence and secondhand smoke exposure Obstructive sleep apnea, with home AVAPS machine Recent acute COVID-19 infection Obesity, with a BMI of 33 kg/m Paroxysmal atrial fibrillation, currently in normal sinus rhythm, anticoagulated on Eliquis Hypertension History of renal cancer status post right nephrectomy Plan: The patient was seen and evaluated Chest x-ray, labs and medications were reviewed Still no acute pulmonary process Stable on 4 L nasal cannula Needs increased encouragement to increase his activity Continue bronchodilators, steroids Continue his home Daliresp Empiric antibiotics Anticoagulated with Eliquis Plan is for [facility] at discharge I have personally seen and examined the patient, performed the documentation and the assessment and plan as written. Number of minutes spent on the visit: 10 Dictation was produced using [employer] dictation software. Please excuse any grammatical, word or spelling errors.
[2024-07-08 16:45] LABS: Glucose,Whole Blood 136 mg/dL (70-110)
[2024-07-08 20:56] LABS: Glucose,Whole Blood 132 mg/dL (70-110)
[2024-07-09 06:51] LABS: Glucose,Whole Blood 101 mg/dL (70-110)
[2024-07-09 08:34] VITALS: BP 102/55; TEMP 97.1
[2024-07-09 10:25] LABS: HCT 38.5 % (39.6-50.0); HGB 11.7 g/dL (13.0-17.0); MCH 31.5 pg (27.0-32.0); MCHC 30.4 g/dL (32.0-37.0); MCV 103.5 FL (80.0-97.0); Mean Platelet Volume 9.5 FL (9.5-12.2); NRBC Per 100 WBC 0 X 10*3/uL (0.00-0.01); Platelet Count 249 X 10*3/uL (140-440); RBC 3.72 X 10*6/uL (4.40-5.60); RDW 14.4 % (11.5-14.5)
[2024-07-09 10:52] LABS: Basophils # (M) 0 X 10*3/uL (0.00-0.10); Eosinophils # (M) 0 X 10*3/uL (0.04-0.35); Monocytes # (M) 0.87 X 10*3/uL (0.20-1.00); Myelocytes % 2 % (0-0); Neutrophils # (M) 8.54 X 10*3/uL (1.80-7.70); Neutrophils % (M) 88 %
[2024-07-09 11:00] LABS: BUN/Creat Ratio 32.44 Ratio (12.00-20.00); Blood Urea Nitrogen 51.9 mg/dL (9.0-27.0); Calcium 8.1 mg/dL (8.7-10.3); Carbon Dioxide 41.1 mmol/L (21.6-31.8); Chloride 93 mmol/L (96-109); Glucose 92 mg/dL (70-110); Potassium 4.4 mmol/L (3.5-5.5); Sodium 140 mmol/L (135-145)
--- NOTE | 2024-07-09 11:40 | P.DS ---
Providers Date of admission: 06/29/24 12:04 Expected date of discharge: 07/09/24 Attending physician: Oliver Garcia Consults: 06/29/24 12:04 Consult Physician Urgent Consulting Provider: Chacho James Consult Reason/Comments: acute/chronic hypoxic resp failure, influenza a, copd Do you want consulting provider notified?: Yes 06/29/24 15:56 Consult Physician Routine Consulting Provider: Karla Biswas Consult Reason/Comments: elevated troponins Do you want consulting provider notified?: Yes Primary care physician: Sinan Kurtz [facility] Course: Discharge Diagnosis: Acute on chronic hypoxic and hypercarbic respiratory failure Acute COPD exacerbation Influenza A infection Sepsis on arrival, secondary to influenza infection Type 2 NSTEMI / above Paroxysmal atrial fibrillation Chronic diastolic heart failure CKD stage IIIa status post right nephrectomy. Peripheral neuropathy Depression with anxiety [facility] Hospital Course: 78-year-old male with a past medical history of COPD with chronic hypoxic respiratory failure home oxygen dependent on 2 L follows with solution manager Dr. Ware, nicotine dependence, hypertension, hyperlipidemia, chronic heart failure with EF of 55 to 60%, paroxysmal atrial fibrillation on anticoagulation with Eliquis, renal cell carcinoma status post right nephrectomy with chronic kidney disease stage IIIa, macular degeneration, and peripheral neuropathy. He presented to the hospital with a chief complaint of shortness of breath. Patient recently underwent hospitalization for COPD exacerbation 06/23-06/25 for COPD exacerbation. Patient reports going home, completing his steroids and feeling well up until about 2 days ago when he again began to develop worsening shortness of breath accompanied by a nonproductive cough. He reports that he was increasing his oxygen to 4 L but this did not even help and his shortness of breath progressively worsened accompanied by generalized bodyaches, diaphoresis and fatigue so he called EMS for transport to the hospital. Upon arrival to our facility, patient underwent evaluation in the emergency department. Vital signs upon arrival show blood pressure 92/65, heart rate 51, respiratory rate 26, temp 100.9 F, and SpO2 of 92% on 4 L. EKG was completed showing sinus tachycardia at 109 bpm with moderate interference. Chest x-ray completed showing findings of COPD with hyperinflation and flattening of the diaphragm but negative for acute cardiopulmonary process. Labs completed and reviewed. CBC showing leukocytosis with WBC count of 10.7, hemoglobin of 12.3, platelet count of 153 with mild macrocytosis with elevated MCV of 101.7. Coagulation profile showing a low PTT of 21.9. BMP showing metabolic alkalosis with chloride of 89, bicarb of 40, and anion gap of 8 and renal function consistent with known stage III CKD with BUN of 33, creatinine of 1.51, GFR 44. Blood glucose was 109. Lactic acid was 1.1. Calcium 8.8. Magnesium 1.8. Liver profile unremarkable. Troponin was elevated at 0.057 and proBNP 717. Patient initially requiring 4 L O2 in the emergency department however there were concerns for increasing lethargy with increased work of breathing and patient was placed on continuous BiPAP. Patient's mentation significantly improved shortly after being placed on BiPAP. At time of admission respirations even, regular, and unlabored on BiPAP and patient able to speak in full sentences at this time. Patient admitted under our services with consultation to cardiology for elevated troponins and pulmonology for acute on chronic respiratory failure. Cardiology not recommending any further interventions. Influenza A positive. Patient was requiring high amounts of oxygen, and BiPAP at night. Completed course of Tamiflu. Completed course of oral doxycycline. Being discharged to subacute rehab with steroid taper. Follow-up outpatient with pulmonology, cardiology and PCP. Patient seen and examined at bedside. Vital signs reviewed and stable. General: Nontoxic, no distress, appears at stated age, chronically ill-appearing Derm: Warm, dry Head: Atraumatic, normocephalic, symmetric Eyes: EOMI, no lid lag, anicteric sclera Mouth: No lip lesion, mucus membranes moist Cardiovascular: S1S2 reg, no murmur Lungs: Bibasilar rhonchi, no accessory muscle use, supplemental oxygen Abdominal: Soft, nontender to palpation, no guarding, no appreciable organomegaly Ext: No gross muscle atrophy, no edema, no contractures Neuro: CN II-XI grossly intact, no focal neuro deficits Psych: Alert, oriented, appropriate affect A total of 36 minutes of time were spent preparing this complex discharge summary. Patient was discharged on 07/09/2024 at 947. Patient Condition at Discharge: Stable Plan - Discharge Summary Discharge Rx Participant: Yes New Discharge Prescriptions: New predniSONE [Deltasone] See Rx Instructions .ROUTE .COMPLEX tab Ezetimibe [Zetia] 10 mg PO DAILY #0 tab Dapagliflozin Propanediol [Farxiga] 10 mg PO DAILY tab Acetaminophen Tab [Tylenol] 650 mg PO Q6HR PRN tab PRN Reason: Mild Pain Or Fever > 100.5 guaiFENesin [Mucinex] 400 mg PO Q4HR PRN tab PRN Reason: Sinus Symptoms Continue Vit C/E/Zn/Coppr/Lutein/Zeaxan [Preservision Areds 2 Softgel] 1 cap PO BID Apixaban [Eliquis] 5 mg PO BID 30 Days #60 tab buPROPion [Wellbutrin] 150 mg PO BID Albuterol Inhaler [Ventolin Hfa Inhaler] 2 puff INHALATION RT-Q6H PRN PRN Reason: Shortness Of Breath Gabapentin [Neurontin] 200 mg PO BID Albuterol Nebulized [Ventolin Nebulized] 2.5 mg INHALATION RT-Q4H Bumetanide [BUMEX] 1 mg PO BID Sennosides/Docusate Sodium [Senna Plus 8.6-50 mg Tablet] 1 tab PO BID Amiodarone [Cordarone] 200 mg PO DAILY Roflumilast [Daliresp] 500 mcg PO DAILY Potassium Chloride ER [K-Dur 20] 20 meq PO DAILY #30 tab Fluticasone Propion/Salmeterol [Wixela 500-50 Inhub] 1 puff INHALATION RT-BID Cholecalciferol [Vitamin D3 (25 Mcg = 1000 Iu)] 25 mcg PO DAILY Tiotropium 2.5 Mcg/Puff [Spiriva Respimat 2.5 Mcg] 2 puff INHALATION RT-DAILY traZODone HCL [Desyrel] 50 mg PO HS Carboxymethylcellulose Sodium [Refresh Tears] 1 drop BOTH EYES Q6H PRN PRN Reason: Dry Eye(S) Melatonin 5 mg PO HS tab Aspirin 81 mg PO DAILY #90 tab Discontinued Digoxin [Lanoxin] 125 mcg PO DAILY No Action Lidocaine 5% Patch [Lidoderm 5% Patch] 1 patch TRANSDERM DAILY Discharge Medication List Vit C/E/Zn/Coppr/Lutein/Zeaxan [Preservision Areds 2 Softgel] 1 cap PO BID 08/03/17 [History] Apixaban [Eliquis] 5 mg PO BID 30 Days #60 tab 11/26/20 [Rx] Amiodarone [Cordarone] 200 mg PO DAILY 12/02/20 [History] Roflumilast [Daliresp] 500 mcg PO DAILY 01/17/21 [History] Potassium Chloride ER [K-Dur 20] 20 meq PO DAILY #30 tab 01/26/21 [Rx] Albuterol Inhaler [Ventolin Hfa Inhaler] 2 puff INHALATION RT-Q6H PRN 04/26/23 [History] Cholecalciferol [Vitamin D3 (25 Mcg = 1000 Iu)] 25 mcg PO DAILY 04/26/23 [History] Fluticasone Propion/Salmeterol [Wixela 500-50 Inhub] 1 puff INHALATION RT-BID 04/26/23 [History] Tiotropium 2.5 Mcg/Puff [Spiriva Respimat 2.5 Mcg] 2 puff INHALATION RT-DAILY 04/26/23 [History] buPROPion [Wellbutrin] 150 mg PO BID 04/26/23 [History] Albuterol Nebulized [Ventolin Nebulized] 2.5 mg INHALATION RT-Q4H 02/15/24 [History] Bumetanide [BUMEX] 1 mg PO BID 02/15/24 [History] Carboxymethylcellulose Sodium [Refresh Tears] 1 drop BOTH EYES Q6H PRN 02/15/24 [History] Gabapentin [Neurontin] 200 mg PO BID 02/15/24 [History] Lidocaine 5% Patch [Lidoderm 5% Patch] 1 patch TRANSDERM DAILY 02/15/24 [History] traZODone HCL [Desyrel] 50 mg PO HS 02/15/24 [History] Sennosides/Docusate Sodium [Senna Plus 8.6-50 mg Tablet] 1 tab PO BID 05/02/24 [History] Aspirin 81 mg PO DAILY #90 tab 05/04/24 [Rx] Melatonin 5 mg PO HS tab 05/04/24 [Rx] Acetaminophen Tab [Tylenol] 650 mg PO Q6HR PRN tab 07/09/24 [Rx] Dapagliflozin Propanediol [Farxiga] 10 mg PO DAILY tab 07/09/24 [Rx] Ezetimibe [Zetia] 10 mg PO DAILY #0 tab 07/09/24 [Rx] guaiFENesin [Mucinex] 400 mg PO Q4HR PRN tab 07/09/24 [Rx] predniSONE [Deltasone] See Rx Instructions .ROUTE .COMPLEX tab 07/09/24 [Rx] Follow up Appointment(s)/Referral(s): Sinan Kurtz DO [Primary Care Provider] - 1-2 days (ECF please call for follow-up appointment.) Paul Adler MD [STAFF PHYSICIAN] - 2 Weeks (Office is not answering at time of discharge. Please call for follow-up appointment.) Chacho James MD [STAFF PHYSICIAN] - 07/24/24 9:30 am (With Dr. Ware) Patient Instructions/Handouts: Influenza (DC), COPD (Chronic Obstructive Pulmonary Disease) (DC) Activity/Diet/Wound Care/Special Instructions: Please see PCP, cardiology and pulmonology. Discharge Disposition: TRANSFER TO SNF/ECF
[2024-07-09 12:01] LABS: Glucose,Whole Blood 111 mg/dL (70-110)
[2024-07-09 12:13] VITALS: PULSE 92
--- NOTE | 2024-07-09 14:02 | P.PN ---
Subjective Progress Note Date: 07/09/24 78-year-old male patient, admitted through emergency department for worsening shortness of breath. He has had multiple hospitalizations for the same. He was recently hospitalized and discharged on 05/25/2024 after being treated for an acute COPD exacerbation. He wears oxygen at home at 2 L/min nasal cannula and his oxygen requirements apparently been going up and while on 4 L of O2 the patient's pulse ox was 78%. Based on that, the patient came into the emergency and he was hospitalized. He has a cough, nonproductive. He was febrile upon arrival to the hospital. Based on that, the patient was admitted. His temperature was 100.9. Hemodynamically stable, slightly tachycardic, his blood work showed a white cell count of 10.7 and he was 12.3 and platelet count of 153. Sodium level is at 137, BUN 33 with a creatinine of 1.5 and a glucose of 109. The blood gas was done that showed chronic hypercapnic respiratory failure compensated with a pH of 7.37 and a pCO2 of 77 and pO2 of 82 and this was done while the patient was on a BiPAP at a pressure of 10/5 with an FiO2 of 35%. Reviewed the chest x-ray from this current admission and it is consistent with COPD. No airspace disease. No consolidation. No pneumothorax. The patient also had a viral screen that was positive for influenza A and this could have exacerbated his underlying COPD. He is currently on DuoNeb nebulized treatments [id number]. He was also started on Tamiflu. He was started on IV Solu- Medrol 40 mg every 8 hours. He also had a COVID-19 infection back in May 2024. In terms of his respiratory status, the patient COPD is advanced. He has an FEV1 of 19% of predicted. He has been maintained on a combination of Spiriva and Wixela and outpatient basis. He is also oxygen dependent. He also has a AVAPS machine at home. Other comorbidities include atrial fibrillation, macular degeneration, and renal cancer for which the patient has undergone a right nephrectomy. He has also hypertension hyperlipidemia and impaired hearing. On today's evaluation of 06/30/2024, the patient is being seen for a follow-up. The patient seems to be much more comfortable compared to yesterday. Remains on a BiPAP. On and off, he is being given brief periods of the BiPAP. At the time of my evaluation, the patient was still on the BiPAP pressure of 10 over 5 cm of water and the patient was able to generate good tidal volumes above 600 and the patient's respiratory rate is around 20. The patient remains on DuoNeb updrafts. The patient remains on Symbicort. The patient remains on IV Solu- Medrol 40 mg every 8 hours. Rest of the home medication resumed. He remains on Tamiflu. White cell count 8.7, hemoglobin 11.4 and platelet count of 153. Serum bicarb is at 41. BUN 39 with a creatinine of 1.4 and sodium levels at 135 and potassium level is at 4.4. Note that the patient has history of chronic kidney disease. No altered mentation the patient was awake and alert and communicating and following commands and answering questions appropriately. He does have chronic hypoxic and hypercapnic respiratory failure. He has a AVAPS device at home. On 07/01/2024, patient is being seen for a follow-up. Continues to have cough and congestion. Modest improvement over the past 24 hours. He is using our BiPAP device on and off during the day at a pressure of 10 over 5 cm of water. Remains on bronchodilators. Remains on steroids. Remains on Symbicort 2 puffs twice a day, DuoNeb updrafts 4 times a day, and the patient is completing course of Tamiflu. Remains on IV Solu-Medrol 40 mg every 8 hours. Oxygenation is stable on 4 L of oxygen by nasal cannula with a pulse ox of 91%. No new compl aints for now. The patient COPD is advanced with an FEV1 of 19% of predicted.Blood work from today shows a white cell count of 12.7, hemoglobin 10.8 and a platelet count of 153. BUN 38 with a creatinine 1.37 and a sodium levels at 132. The patient is seen today July 02, 2024 in follow-up on the care unit. He is currently sitting up in the chair at the bedside. Awake and alert in no acute distress. Still with a loose nonproductive cough. He remains on DuoNeb inhalations, Symbicort, Solu-Medrol. Anticoagulated with Eliquis. Procalcitonin was 0.53. He is being treated for influenza A and had recently been treated for COVID infection. Sodium 135. Potassium 4.7. Bicarb 43. BUN 40. Creatinine 1.41. Glucose 120. Containing O2 saturations in the 90s on 4 L/min per nasal cannula. He is been afebrile. Hemodynamically stable. The patient is seen today July 07, 2024 in follow-up on the regular medical floor. He is currently sitting up in the chair. Awake and alert in no acute distress. Maintaining O2 saturations in the 90s on 4 L/min per nasal cannula. He has been afebrile. Hemodynamically stable. White count 12.3. Hemoglobin 11.5. Platelets 250. Sodium 134. Potassium 4.2. Bicarb 45. BUN 43. Creatinine 1.43. Glucose 92. He remains on DuoNeb inhalations, Symbicort, Daliresp, Robitussin. Empiric antibiotics in the form of doxycycline. Remains on a prednisone taper. Anticoagulated with Eliquis. The patient is seen today July 08, 2024 in follow-up on the regular medical floor. He is awake and alert in no acute distress. Sitting up in a chair. Denies any worsening shortness of breath, cough or congestion. Maintaining O2 saturations in the 90s on 4 L/min per nasal cannula. He has been slow to progress. Needs increased encouragement regarding increasing his activity. He is continued on DuoNeb and elations, Symbicort, Robitussin, Mucinex, Daliresp, prednisone. He is anticoagulated with Eliquis. He is on empiric antibiotics in the form of doxycycline. Follow-up chest x-ray continues to show no acute pulmonary process. Evidence of COPD. White count 13.6. Hemoglobin 13.7. Platelets 288. Sodium 144. Potassium 4.4. Bicarb 40. BUN 48. Creatinine 1.6. Glucose 106. The patient is seen today July 09, 2024 in follow-up on the regular medical floor. He is sitting up in a chair at the bedside. Awake and alert in no acute distress. Maintaining good O2 saturations in the 90s on 4 L/min per nasal cannula. He has been afebrile. Hemodynamically stable. White count 9.7. Hemoglobin 11.7. Platelets 249. Sodium 140. Potassium 4.4. Bicarb 41. BUN 52. Creatinine 1.6. Glucose 92. He remains on DuoNeb inhalations, Symbicort, prednisone taper. Anticoagulated with Eliquis. Objective - Vital Signs Vital signs: Vital Signs Temp 97.1 F L 07/09/24 07:50 Pulse 92 07/09/24 12:12 Resp 18 07/09/24 07:50 BP 102/55 07/09/24 07:50 Pulse Ox 89 L 07/09/24 07:50 FiO2 35 07/06/24 00:04 Intake & Output 07/08/24 07/09/24 07/09/24 18:59 06:59 18:59 Intake Total 240 Output Total 800 600 Balance -560 -600 Intake: Oral 240 Output: Urine 800 600 Other: Voiding Method Urinal - Exam GENERAL EXAM: Alert, 78-year-old male, on 4 L nasal cannula, in no apparent distress. HEAD: Normocephalic. EYES: Normal reaction of pupils, equal size. NOSE: Clear with pink turbinates. THROAT: No erythema or exudates. NECK: No masses, no JVD. CHEST: No chest wall deformity. LUNGS: Equal air entry with bilateral wheeze, few scattered rhonchi. CVS: S1 and S2 normal with no audible murmur, regular rhythm. ABDOMEN: No hepatosplenomegaly, normal bowel sounds, no guarding or rigidity. SPINE: No scoliosis or deformity SKIN: No rashes CENTRAL NERVOUS SYSTEM: No focal deficits, tone is normal in all 4 extremities. EXTREMITIES: There is no peripheral edema. No clubbing, no cyanosis. Peripheral pulses are intact. - Labs CBC & Chem 7: 07/09/24 06:33 07/09/24 06:33 Labs: Abnormal Lab Results - Last 24 Hours (Table) 07/08/24 07/08/24 07/09/24 Range/Units 16:42 20:54 06:33 RBC 3.72 L (4.40-5.60) X 10*6/uL Hgb 11.7 L (13.0-17.0) g/dL Hct 38.5 L (39.6-50.0) % MCV 103.5 H (80.0-97.0) FL MCHC 30.4 L (32.0-37.0) g/dL Neutrophils # (Manual) 8.54 H (1.80-7.70) X 10*3/uL Lymphocytes # (Manual) 0.10 L (0.90-5.00) X 10*3/uL Eosinophils # (Manual) 0 L (0.04-0.35) X 10*3/uL Chloride (96-109) mmol/L Carbon Dioxide (21.6-31.8) mmol/L BUN (9.0-27.0) mg/dL Creatinine (0.6-1.5) mg/dL Est GFR (CKD-EPI) (>=60) BUN/Creatinine Ratio (12.00-20.00) Ratio POC Glucose (mg/dL) 136 H 132 H (70-110) mg/dL Calcium (8.7-10.3) mg/dL 07/09/24 07/09/24 Range/Units 06:33 12:00 RBC (4.40-5.60) X 10*6/uL Hgb (13.0-17.0) g/dL Hct (39.6-50.0) % MCV (80.0-97.0) FL MCHC (32.0-37.0) g/dL Neutrophils # (Manual) (1.80-7.70) X 10*3/uL Lymphocytes # (Manual) (0.90-5.00) X 10*3/uL Eosinophils # (Manual) (0.04-0.35) X 10*3/uL Chloride 93 L (96-109) mmol/L Carbon Dioxide 41.1 A* (21.6-31.8) mmol/L BUN 51.9 H (9.0-27.0) mg/dL Creatinine 1.6 H (0.6-1.5) mg/dL Est GFR (CKD-EPI) 44 L (>=60) BUN/Creatinine Ratio 32.44 H (12.00-20.00) Ratio POC Glucose (mg/dL) 111 H (70-110) mg/dL Calcium 8.1 L (8.7-10.3) mg/dL Assessment and Plan Assessment: Acute COPD exacerbation secondary to influenza A infection, currently on 4 L/min per nasal cannula. Clinically improved and the patient seems to be less short of breath. No signs of any CO2 narcosis. The patient is currently off BiPAP. Chest x-rays continue to show no acute pulmonary process. Evidence of COPD. Acute influenza A infection. Completed Tamiflu Acute on chronic hypoxic respiratory failure, secondary to above Chronic hypercapnic respiratory failure, acid-base status and blood gas is com pensated Severe oxygen and steroid dependent chronic obstructive pulmonary disease, most recent FEV1 19 % of predicted, maintained on AVAPS machine at home. The patient is also oxygen dependent and the patient has been maintained on a combination of Wixela and Spiriva on outpatient basis. Chronic hypoxemic and hypercapnic respiratory, normally on 2-4 L/min nasal cannula 29/11 Chronic ongoing tobacco dependence and secondhand smoke exposure Obstructive sleep apnea, with home AVAPS machine Recent acute COVID-19 infection Obesity, with a BMI of 33 kg/m Paroxysmal atrial fibrillation, currently in normal sinus rhythm, anticoagulated on Eliquis Hypertension History of renal cancer status post right nephrectomy Plan: The patient was seen and evaluated Labs and medications were reviewed Stable on 4 L nasal cannula Needs increased encouragement to increase his activity Continue bronchodilators, steroids Continue his home Daliresp Anticoagulated with Eliquis Plan is for [facility] today I have personally seen and examined the patient, performed the documentation and the assessment and plan as written. Number of minutes spent on the visit: 10 Dictation was produced using Printi dictation software. Please excuse any grammatical, word or spelling errors.
== END 2024-07-09 15:04 | DRG 871 ==
LOC: EC 09:09 → 4SSUR 12:04 → 3SCARD 16:22 → 4SSUR 07-06 14:38
PROVIDERS: ADMIT Student in an Organized Health Care Education/Training Program; ATTEND Student in an Organized Health Care Education/Training Program
PROC: 5A09357 Assistance with Respiratory Ventilation, Less than 24 Consecutive Hours, Continuous Positive Airway Pressure (ICD-10-PCS; principal; 2024-06-29)
DX: A41.89 Other specified sepsis (principal); I21.A1 Myocardial infarction type 2; J96.21 Acute and chronic respiratory failure with hypoxia; J96.22 Acute and chronic respiratory failure with hypercapnia; E87.3 Alkalosis; G62.9 Polyneuropathy, unspecified; I48.0 Paroxysmal atrial fibrillation; J44.1 Chronic obstructive pulmonary disease with (acute) exacerbation; I13.0 Hypertensive heart and chronic kidney disease with heart failure and stage 1 through stage 4 chronic kidney disease, or unspecified chronic kidney disease; N18.31 Chronic kidney disease, stage 3a; E66.9 Obesity, unspecified; F32.A Depression, unspecified; I50.32 Chronic diastolic (congestive) heart failure; J43.9 Emphysema, unspecified; H35.3290 Exudative age-related macular degeneration, unspecified eye, stage unspecified; D75.89 Other specified diseases of blood and blood-forming organs; E78.5 Hyperlipidemia, unspecified; F17.210 Nicotine dependence, cigarettes, uncomplicated; F41.9 Anxiety disorder, unspecified; G47.33 Obstructive sleep apnea (adult) (pediatric); M19.90 Unspecified osteoarthritis, unspecified site; H35.30 Unspecified macular degeneration; Z68.33 Body mass index [BMI] 33.0-33.9, adult; Z99.81 Dependence on supplemental oxygen; H54.8 Legal blindness, as defined in USA; G47.00 Insomnia, unspecified; H91.90 Unspecified hearing loss, unspecified ear; I25.10 Atherosclerotic heart disease of native coronary artery without angina pectoris; I45.10 Unspecified right bundle-branch block; J10.1 Influenza due to other identified influenza virus with other respiratory manifestations; Z20.822 Contact with and (suspected) exposure to COVID-19; Z79.01 Long term (current) use of anticoagulants; Z79.51 Long term (current) use of inhaled steroids; Z79.52 Long term (current) use of systemic steroids; Z79.82 Long term (current) use of aspirin; Z79.899 Other long term (current) drug therapy; Z85.528 Personal history of other malignant neoplasm of kidney; Z85.820 Personal history of malignant melanoma of skin; Z86.16 Personal history of COVID-19; Z88.8 Allergy status to other drugs, medicaments and biological substances; Z90.5 Acquired absence of kidney; Z97.4 Presence of external hearing-aid
CPT/HCPCS: 36415; 36600; 71045; 71046; 80048; 80053; 82803; 82805; 83605; 83735; 83880; 84145; 84484; 85025; 85027; 85610; 85730; 87636; 93005; 94640; 94660; 94760; 96374; 99291

== ENCOUNTER 2024-10-11 18:06 | Inpatient (IN) | payer OTHER, MEDICARE ==
--- NOTE | 2024-10-11 19:11 | ED ---
General Adult HPI - General Chief complaint: Shortness of Breath Stated complaint: SOB,Hypotension Time Seen by Provider: 10/11/24 18:40 Source: patient, RN notes reviewed, old records reviewed Mode of arrival: ambulatory Limitations: no limitations - History of Present Illness Initial comments: This is a 78-year-old male who presents to the emergency department complaining of shortness of breath. Patient states he was walking across room his pulse ox dropped down to 80. Patient also states he got up to make dinner and he went to the frie rater and he felt like he almost passed out. Patient states this is at least the second time this has happened the last couple of days. Patient also states he has had a little upset stomach. Patient states he has not passed out but is afraid that he is going to.. Patient denies any headache patient has numbness weakness. Patient has any fever chills or cough. Patient denies chest pain. Patient denies any swelling to the legs or calf tenderness. Patient states he normally can walk around the house occasionally without oxygen but as of late he has to have it on and he still is short of breath - Related Data Home Medications Medication Instructions Recorded Confirmed Vit C/E/Zn/Coppr/Lutein/Zeaxan 1 cap PO BID 08/03/17 06/29/24 [Preservision Areds 2 Softgel] Amiodarone [Cordarone] 200 mg PO DAILY 12/02/20 06/29/24 Roflumilast [Daliresp] 500 mcg PO DAILY 01/17/21 06/29/24 Albuterol Inhaler [Ventolin Hfa 2 puff INHALATION RT-Q6H PRN 04/26/23 06/29/24 Inhaler] Cholecalciferol [Vitamin D3 (25 25 mcg PO DAILY 04/26/23 06/29/24 Mcg = 1000 Iu)] Fluticasone Propion/Salmeterol 1 puff INHALATION RT-BID 04/26/23 06/29/24 [Wixela 500-50 Inhub] Tiotropium 2.5 Mcg/Puff [Spiriva 2 puff INHALATION RT-DAILY 04/26/23 06/29/24 Respimat 2.5 Mcg] buPROPion [Wellbutrin] 150 mg PO BID 04/26/23 06/29/24 Albuterol Nebulized [Ventolin 2.5 mg INHALATION RT-Q4H 02/15/24 06/29/24 Nebulized] Bumetanide [BUMEX] 1 mg PO BID 02/15/24 06/29/24 Carboxymethylcellulose Sodium 1 drop BOTH EYES Q6H PRN 02/15/24 06/29/24 [Refresh Tears] Gabapentin [Neurontin] 200 mg PO BID 02/15/24 06/29/24 Lidocaine 5% Patch [Lidoderm 5% 1 patch TRANSDERM DAILY 02/15/24 06/29/24 Patch] traZODone HCL [Desyrel] 50 mg PO HS 02/15/24 06/29/24 Sennosides/Docusate Sodium [Senna 1 tab PO BID 05/02/24 06/29/24 Plus 8.6-50 mg Tablet] Previous Rx's Medication Instructions Recorded Apixaban [Eliquis] 5 mg PO BID 30 Days #60 tab 11/26/20 Potassium Chloride ER [K-Dur 20] 20 meq PO DAILY #30 tab 01/26/21 Aspirin 81 mg PO DAILY #90 tab 05/04/24 Melatonin 5 mg PO HS tab 05/04/24 Acetaminophen Tab [Tylenol] 650 mg PO Q6HR PRN tab 07/09/24 Dapagliflozin Propanediol [Farxiga] 10 mg PO DAILY tab 07/09/24 Ezetimibe [Zetia] 10 mg PO DAILY #0 tab 07/09/24 guaiFENesin [Mucinex] 400 mg PO Q4HR PRN tab 07/09/24 predniSONE [Deltasone] See Rx Instructions .ROUTE 07/09/24 .COMPLEX tab Allergies Allergy/AdvReac Type Severity Reaction Status Date / Time atorvastatin [From Lipitor] AdvReac Muscle pain Verified 10/11/24 18:42 Review of Systems ROS Statement: Those systems with pertinent positive or pertinent negative responses have been documented in the HPI. ROS Other: All systems not noted in ROS Statement are negative. Past Medical History Past Medical History: Atrial Fibrillation, Cancer, Heart Failure, COPD, Eye Disorder, Hearing Disorder / Deafness, Hyperlipidemia, Hypertension, Osteoarthritis (OA) Additional Past Medical History / Comment(s): Emphysema (takes inhalers and uses oxygen at home). Hx Kidney Cancer in 2007, R nephrectomy.q Left eye detached retina. Wet Macular Degeneration right eye. Hx Melanoma on back. Bilateral hearing aid use, legally blind. History of Any Multi-Drug Resistant Organisms: None Reported Past Surgical History: Back Surgery Additional Past Surgical History / Comment(s): Right kidney removed. Left eye surgery X3 for detacted retina. Bilateral cataract surgery. surgery thoracic spine for melanoma.plate in right arm, bilateral eye lids lifted Past Anesthesia/Blood Transfusion Reactions: Previous Problems w/ Anesthesia Additional Past Anesthesia/Blood Transfusion Reaction / Comment(s): States low heart rate, light-headed and low BP X1 with anesthesia. "Got broke vocal cord and could not talk for 2 months after anesthesia one time." Past Psychological History: Anxiety, Depression Smoking Status: Former smoker Past Alcohol Use History: Occasional Past Drug Use History: None Reported - Past Family History Mother Family Medical History: Cancer Additional Family Medical History / Comment(s): Brain Cancer. Father Family Medical History: CVA/TIA General Exam - General Exam Comments Initial Comments: GENERAL: Patient is well-developed and well-nourished. Patient is nontoxic and well- hydrated and is in mild distress. ENT: Neck is soft and supple. No significant lymphadenopathy is noted. Oropharynx is clear. Moist mucous membranes. Neck has full range of motion without eliciting any pain. EYES: The sclera were anicteric and conjunctiva were pink and moist. Extraocular movements were intact and pupils were equal round and reactive to light. Eyelids were unremarkable. PULMONARY: Unlabored respirations. Good breath sounds bilaterally. No audible rales rhonchi or wheezing was noted. CARDIOVASCULAR: There is a regular rate and rhythm without any murmurs gallops or rubs. ABDOMEN: Soft and nontender with normal bowel sounds. SKIN: Skin is clear with no lesions or rashes and otherwise unremarkable. NEUROLOGIC: Patient is alert and oriented x3. Cranial nerves II through XII are grossly intact. Motor and sensory are also intact. Normal speech, volume and content. Symmetrical smile. MUSCULOSKELETAL: Normal extremities with adequate strength and full range of motion. LYMPHATICS: No significant lymphadenopathy is noted PSYCHIATRIC: Normal psychiatric evaluation. Limitations: no limitations Course Vital Signs 10/11/24 10/11/24 10/11/24 18:36 18:41 19:25 Temperature 98.1 F 98.4 F Pulse Rate 89 85 Respiratory 22 18 18 Rate Blood Pressure 93/53 126/58 O2 Sat by Pulse 92 L 93 L Oximetry Medical Decision Making - Medical Decision Making EKG is interpreted by myself. EKG shows a sinus rhythm at 77 bpm parable 249 QRS is 153 QT interval is 4 2 QTc is 434. Patient's EKG shows no ST segment elevation patient does have a right bundle branch block Was pt. sent in by a medical professional or institution (SOTERO Loyola, TOOL MACHINE SET UP OPERATOR, urgent care, hospital, or penitentiary...) When possible be specific @ -No Did you speak to anyone other than the patient for history (EMS, parent, family, police, friend...)? What history was obtained from this source @ -No Did you review nursing and triage notes (agree or disagree)? Why? @ -I reviewed and agree with nursing and triage notes Were old charts reviewed (outside hosp., previous admission, EMS record, old EKG, old radiological studies, urgent care reports/EKG's, penitentiary records)? Report findings @ -No old charts were reviewed Differential Diagnosis? @ -Differential Dyspnea: Coronary syndrome, arrhythmia, tamponade, asthma, COPD, pulmonary embolism, pneumonia, pneumothorax, pulmonary effusion, anaphylaxis, diabetic ketoacidosis, flailed chest, pulmonary contusion, diaphragmatic rupture, anemia, neuromuscul ar, this is not meant to be an all-inclusive list. EKG interpreted by me (3pts min.). @ -As above X-rays interpreted by me (1pt min.). @ -Chest x-ray shows pulmonary edema CT interpreted by me (1pt min.). @ -None done U/S interpreted by me (1pt. min.). @ -None done What testing was considered but not performed or refused? (CT, X-rays, U/S, labs)? Why? @ -None What meds were considered but not given or refused? Why? @ -None Did you discuss the management of the patient with other professionals (professionals i.e. SOTERO Loyola, TOOL MACHINE SET UP OPERATOR, lab, RT, psych nurse, social service liaison, sports director, teacher, hydrographical technical officer, casework specialist)? Give summary @ -I spoke with sound physicians agreed to admit the patient admit the patient wrote admitting orders Was smoking cessation discussed for >3mins.? @ -No Was critical care preformed (if so, how long)? @ -No Were there social determinants of health that impacted care today? How? (Homelessness, low income, unemployed, alcoholism, drug addiction, transportation, low edu. Level, literacy, decrease access to med. care, half-way, rehab)? @ -No Was there de-escalation of care discussed even if they declined (Discuss DNR or withdrawal of care, Hospice)? DNR status @ -No What co-morbidities impacted this encounter? (DM, HTN, Smoking, COPD, CAD, Cancer, CVA, ARF, Chemo, Hep., AIDS, mental health diagnosis, sleep apnea, morbid obesity)? @ -None Was patient admitted / discharged? Hospital course, mention meds given and route, prescriptions, significant lab abnormalities, going to OR and other pertinent info. @ -Patient has some pulmonary edema on the x-ray. Patient also had multiple near syncopal episodes and I will keep the patient admit the patient to sound and consult cardiology Undiagnosed new problem with uncertain prognosis? @ -No Drug Therapy requiring intensive monitoring for toxicity (Heparin, Nitro, Insulin, Cardizem)? @ -No Were any procedures done? @ -No Diagnosis/symptom? @ -Pulmonary edema Acute, or Chronic, or Acute on Chronic? @ -Acute Uncomplicated (without systemic symptoms) or Complicated (systemic symptoms)? @ -Complicated Side effects of treatment? @ -No Exacerbation, Progression, or Severe Exacerbation? @ -No Poses a threat to life or bodily function? How? (Chest pain, [place], [place], pneumonia, PE, COPD, DKA, ARF, appy, cholecystitis, CVA, Diverticulitis, Homicidal, Suicidal, threat to staff... and all critical care pts) @ -Yes this can lead to hypoxia and endorgan dysfunction Diagnosis/symptom? @ -Near syncope Acute, or Chronic, or Acute on Chronic? @ -Acute Uncomplicated (without systemic symptoms) or Complicated (systemic symptoms)? @ -Complicated Side effects of treatment? @ -None Exacerbation, Progression, or Severe Exacerbation] @ -No Poses a threat to life or bodily function? @ -Yes this can be secondary to an arrhythmia - Lab Data Result diagrams: 10/11/24 19:21 10/11/24 19:21 Lab Results 10/11/24 10/11/24 10/11/24 Range/Units 19:21 19:21 19:21 WBC 9.60 (4.50-10.00) 10*3/uL RBC 3.64 L (4.40-5.60) 10*6/uL Hgb 10.7 L (13.0-17.0) g/dL Hct 34.5 L (39.6-50.0) % MCV 94.8 (80.0-97.0) fL MCH 29.4 (27.0-32.0) pg MCHC 31.0 L (32.0-37.0) g/dL Plt Count 212 (140-440) 10*3/uL MPV 9.4 L (9.5-12.2) fL Immature Gran % (Auto) 0.3 % Neutrophils % 65.3 % Lymphocytes % 12.4 % Monocytes % 17.4 % Eosinophils % 4.0 % Basophils % 0.6 % Immature Gran # 0.03 (0.00-0.04) 10*3/uL Neutrophils # 6.27 (1.80-7.70) 10*3/uL Lymphocytes # 1.19 (0.90-5.00) 10*3/uL Monocytes # 1.67 H (0.20-1.00) 10*3/uL Eosinophils # 0.38 H (0.04-0.35) 10*3/uL Basophils # 0.06 (0.00-0.10) 10*3/uL PT 10.3 (10.0-12.5) sec INR 0.9 (<1.2) APTT 24.7 (22.0-30.0) sec D-Dimer 0.26 (<0.60) mg/L FEU Sodium 140 (137-145) mmol/L Potassium 3.9 (3.5-5.1) mmol/L Chloride 98 (98-107) mmol/L Carbon Dioxide 36 H (22-30) mmol/L Anion Gap 6 mmol/L BUN 31 H (9-20) mg/dL Creatinine 1.70 H (0.66-1.25) mg/dL Est GFR (CKD-EPI)AfAm 44 (>60 ml/min/1.73 sqM) Est GFR (CKD-EPI)NonAf 38 (>60 ml/min/1.73 sqM) Glucose 108 H (74-99) mg/dL Plasma Lactic Acid Fabiano (0.7-2.0) mmol/L Calcium 9.1 (8.4-10.2) mg/dL Magnesium 2.3 (1.6-2.3) mg/dL Total Bilirubin 0.4 (0.2-1.3) mg/dL AST 22 (17-59) U/L ALT 14 (4-49) U/L Alkaline Phosphatase 84 (38-126) U/L Troponin I (0.000-0.034) ng/mL NT-Pro-B Natriuret Pep 394 pg/mL Total Protein 6.5 (6.3-8.2) g/dL Albumin 3.6 (3.5-5.0) g/dL Lipase 134 (23-300) U/L 10/11/24 10/11/24 Range/Units 19:21 19:21 WBC (4.50-10.00) 10*3/uL RBC (4.40-5.60) 10*6/uL Hgb (13.0-17.0) g/dL Hct (39.6-50.0) % MCV (80.0-97.0) fL MCH (27.0-32.0) pg MCHC (32.0-37.0) g/dL Plt Count (140-440) 10*3/uL MPV (9.5-12.2) fL Immature Gran % (Auto) % Neutrophils % % Lymphocytes % % Monocytes % % Eosinophils % % Basophils % % Immature Gran # (0.00-0.04) 10*3/uL Neutrophils # (1.80-7.70) 10*3/uL Lymphocytes # (0.90-5.00) 10*3/uL Monocytes # (0.20-1.00) 10*3/uL Eosinophils # (0.04-0.35) 10*3/uL Basophils # (0.00-0.10) 10*3/uL PT (10.0-12.5) sec INR (<1.2) APTT (22.0-30.0) sec D-Dimer (<0.60) mg/L FEU Sodium (137-145) mmol/L Potassium (3.5-5.1) mmol/L Chloride (98-107) mmol/L Carbon Dioxide (22-30) mmol/L Anion Gap mmol/L BUN (9-20) mg/dL Creatinine (0.66-1.25) mg/dL Est GFR (CKD-EPI)AfAm (>60 ml/min/1.73 sqM) Est GFR (CKD-EPI)NonAf (>60 ml/min/1.73 sqM) Glucose (74-99) mg/dL Plasma Lactic Acid Fabiano 1.5 (0.7-2.0) mmol/L Calcium (8.4-10.2) mg/dL Magnesium (1.6-2.3) mg/dL Total Bilirubin (0.2-1.3) mg/dL AST (17-59) U/L ALT (4-49) U/L Alkaline Phosphatase (38-126) U/L Troponin I <0.012 (0.000-0.034) ng/mL NT-Pro-B Natriuret Pep pg/mL Total Protein (6.3-8.2) g/dL Albumin (3.5-5.0) g/dL Lipase (23-300) U/L Disposition Clinical Impression: Near syncope, Pulmonary edema Disposition: ADMITTED IP TO THIS HOSP Referrals: Sinan Kurtz DO [Primary Care Provider] - 1-2 days Time of Disposition: 20:36
[2024-10-11 19:44] LABS: Basophils # (A) 0.06 10*3/uL (0.00-0.10); Basophils % (A) 0.6 %; Eosinophils # (A) 0.38 10*3/uL (0.04-0.35); HCT 34.5 % (39.6-50.0); HGB 10.7 g/dL (13.0-17.0); Lymphocytes # (A) 1.19 10*3/uL (0.90-5.00); Lymphocytes % (A) 12.4 %; MCH 29.4 pg (27.0-32.0); MCV 94.8 fL (80.0-97.0); Mean Platelet Volume 9.4 fL (9.5-12.2); Monocytes # (A) 1.67 10*3/uL (0.20-1.00); Monocytes % (A) 17.4 %; Neutrophils # (A) 6.27 10*3/uL (1.80-7.70); Neutrophils % (A) 65.3 %; Platelet Count 212 10*3/uL (140-440); RBC 3.64 10*6/uL (4.40-5.60); RDW 13.4 % (11.5-14.5)
[2024-10-11 19:59] LABS: INR 0.9 (<1.2); Partial Thromboplastin Time 24.7 sec (22.0-30.0); Prothrombin Time 10.3 sec (10.0-12.5)
[2024-10-11 20:08] LABS: ALT 14 U/L (4-49); AST 22 U/L (17-59); African American GFR (CKD) 44 (>60 ml/min/1.73 sqM); Albumin 3.6 g/dL (3.5-5.0); Alkaline Phosphatase 84 U/L (38-126); Anion Gap 6 mmol/L; Blood Urea Nitrogen 31 mg/dL (9-20); Calcium 9.1 mg/dL (8.4-10.2); Carbon Dioxide 36 mmol/L (22-30); Chloride 98 mmol/L (98-107); Glucose 108 mg/dL (74-99); Lipase 134 U/L (23-300); Magnesium 2.3 mg/dL (1.6-2.3); Non-African American GFR(CKD) 38 (>60 ml/min/1.73 sqM); Potassium 3.9 mmol/L (3.5-5.1); Sodium 140 mmol/L (137-145); Total Bilirubin 0.4 mg/dL (0.2-1.3); Total Protein 6.5 g/dL (6.3-8.2)
[2024-10-11 20:16] LABS: NT-Pro-B-Type Natriuretic Pept 394 pg/mL
--- NOTE | 2024-10-11 20:19 | XR ---
EXAMINATION TYPE: XR chest 2V DATE OF EXAM: 10/11/2024 7:43 PM COMPARISON: Chest radiographs from 10/02/2024 CLINICAL INDICATION: Male, 78 years old with history of difficulty breathing; [facility] TECHNIQUE: XR chest 2V Frontal and lateral views of the chest. FINDINGS: Lungs/Pleura: Prominent interstitial lung markings are seen scattered throughout the lungs with gene ening of the diaphragm and increased lucency of the lung apices. No evidence of focal consolidation, pneumothorax or pleural effusion. Pulmonary vascularity: Unremarkable. Heart/mediastinum: Cardiomediastinal silhouette is unremarkable. Musculoskeletal: No acute osseous pathology. IMPRESSION: Cardiomegaly, pulmonary vascular congestion and bilateral pleural effusions. Correlate with BNP for c ongestive heart failure. [facility], , 10/11/2024 8:16 PM
[2024-10-11] MEDS ORDERED: IPRATROPIUM-ALBUTEROL 3 ML NEB INHALATION PRN ×2 (20:38)
[2024-10-11] MEDS: FUROSEMIDE 10 MG/ML 4 ML VIAL IV SCH (21:11)
[2024-10-11] MEDS ORDERED: MELATONIN 5 MG TABLET PO PRN (21:36)
[2024-10-11] MEDS: traZODone HCL 50 MG TAB PO SCH (22:16)
[2024-10-11] MEDS: GABAPENTIN 100 MG CAP PO SCH (22:16)
[2024-10-11] MEDS: APIXABAN 5 MG TAB PO SCH (22:16)
--- NOTE | 2024-10-11 22:32 | P.HPIM ---
History of Present Illness H&P Date: 10/11/24 History of present illness; 78-year-old with PMH of COPD home oxygen dependent on [address] Ware (pulmonology), nicotine dependence, hypertension, hyperlipidemia, HFpEF (most recent echocardiogram from 05/03/2024 showed EF 55-60%), paroxysmal atrial fibrillation maintained on Eliquis, renal cell carcinoma s/p right nephrectomy with CKD stage IIIa, macular degeneration and peripheral neuropathy. He presents to the emergency department with complaint of shortness of breath. He states that when he was walking across the room without his home oxygen, his SpO2 dropped into the mid 80%. Additionally, notes that he got up to make himself dinner and when he went to the refrigerator he had a near syncopal episode. He states this happened a couple of times over the last couple of days, and he has not passed out however he is now afraid that he might. He states that lately he has occasional minimal to walk around his house without his home oxygen and been okay, however recently he is needed to maintain his home oxygen at all times and has become short of breath even with it on. He denies any headache, numbness/weakness, fever, chills, cough, chest pain. Social history: - Smoking history: 1 pack/day for 60 years, quit earlier this year in June or July - Alcohol use: Social - Recreational drug use: Denies Labratory review: -WBCs 9.60, hemoglobin 10.7, hematocrit 34.5, platelet 212; sodium 140, potassium 3.9, bicarb 36, BUN 31, creatinine 1.70, lactic acid 1.5, calcium 9.1, magnesium 2.3, total bilirubin 0.4, AST 22, ALT 14, alkaline phosphatase 84 - Troponin <0.012; proBNP 394 -Respiratory viral panel all negative Imaging: - Chest x-ray done in the ED independently read and interpreted showed pulmonary vascular congestion and bilateral pleural effusions - EKG done in the ER showed heart rate of 77, sinus rhythm, no ST segment elevation or depression seen, no T-wave inversions seen; QTc 434 Vitals: - On arrival: Blood pressure 93/53, heart rate 89, respiratory rate 22, SpO2 92% on 3 L nasal cannula - Most recently: Blood pressure 127/64, heart rate 84, respiratory 18, SpO2 90% on 4 L of cannula Patient admitted to internal medicine service REVIEW OF SYSTEMS: Pertinent positives and negatives noted in HPI. The rest of the 14-point review of systems is negative. Physical Exam: General: nontoxic, no distress, appears at stated age Derm: warm, dry, intact Head: atraumatic, normocephalic, symmetric Eyes: EOMI, anicteric sclera Mouth: no lip lesion, mucus membranes moist Cardiovascular: S1 S2 reg, no murmur, rubs, or gallops Lungs: CTA bilateral, no rales, no accessory muscle use Abdominal: soft, non-tender to palpataion, no appreciable organomegaly Extremities: Bilateral 1+ pitting edema up to the knee Neuro: Alert, Oriented, CNII-XII grossly intact, gait normal Psych: well appearing, appropriate affect Assessment and plan 78-year-old with PMH of COPD home oxygen dependent on 2 L [address] follows [address] Dr[address] Ware (pulmonology), nicotine dependence, hypertension, hyperlipidemia, HFpEF (most recent echocardiogram from April 2024 showed EF 55-60%), paroxysmal atrial fibrillation maintained on Eliquis, renal cell carcinoma s/p right nephrectomy with CKD stage IIIa, macular degeneration and peripheral neuropathy. He presents to the emergency department with complaint of shortness of breath. #Acute hypoxic respiratory failure likely secondary to HFpEF (most recent echocardiogram on 05/03/2024 showed EF 55 to 60%) exacerbation #Chronic COPD, maintained on 2 L nasal cannula at home #Non-anion gap metabolic alkalosis, chronic CO2 retainer secondary to above - Chest x-ray done in the ED showed pulmonary vascular congestion and bilateral pleural effusions; bilateral lower extremity 1+ pitting edema present - Troponin <0.012, proBNP 394 - Received 40 mg IVP Lasix in the ED; Home medications include Bumex 1 mg twice daily - Continue with Bumex 1 mg IV twice daily - Strict I's and O's, daily weights - Fluid restrict 1500 cc - Most recent echocardiogram 05/03/2024 showed EF 55-60%, will defer to cardiology determination whether to repeat echocardiogram - Cardiology consulted - Cardiac monitoring - Monitor electrolytes daily #Paroxysmal atrial fibrillation, maintained on Eliquis - Continue amiodarone 200 mg daily, Eliquis 5 mg twice daily, digoxin 125 mcg daily - Cardiac monitoring #CKD stage IIIa s/p right nephrectomy, baseline creatinine 1.3 - Adjust medications for renal dosing if necessary - Avoid nephrotoxic agents #Peripheral neuropathy - Continue gabapentin 200 mg twice daily #Depression/anxiety - Continue Wellbutrin 150 mg twice daily #Insomnia - Continue trazodone 50 mg daily GI prophylaxis: None DVT prophylaxis: Eliquis 5 mg twice daily The patient is admitted with an anticipated more than than 2 midnight stay for evaluation of acute hypoxic respiratory failure possibly secondary to HFpEF exacerbation v COPD exacerbation. CODE STATUS: Full code Discussed with: Patient Anticipated discharge place: Pending clinical course Dictation was produced using [employer] dictation software. please excuse any grammatical, word or spelling errors. Albino Kirkland MD PGY-1 IM Attestation : patient seen and examined with site medical director. Agree with above assessment and plan. Patient is a 78-year-old with a past medical history of chronic hypoxic respiratory failure and patient is usually on 2 L nasal cannula oxygen at home, COPD, chronic diastolic heart failure, stage IIIa chronic kidney disease status post right nephrectomy with baseline creatinine 1.3 and paroxysmal A-fib chronically anticoagulated on Eliquis who presented for evaluation of acute hypoxic respiratory failure. Patient reported that he was not feeling well and hypoxic at home. Chest x-ray was done showing vascular congestion. Physical exam remarkable for bilateral lower extremity edema +2 with slight rhonchi bilaterally on lung auscultation. Patient will be diuresed and cardiology consult was placed . Last echocardiogram was done in April 2024 showing ejection fraction 55 to 60%. Will defer repeating echo for now. Continue to monitor kidney function while patient on diuresis. Patient reports that he has been taking Bumex at home with good urine output . Will have PT evaluate patient. Time spent : 55 min Past Medical History Past Medical History: Atrial Fibrillation, Cancer, Heart Failure, COPD, Eye Disorder, Hearing Disorder / Deafness, Hyperlipidemia, Hypertension, O steoarthritis (OA) Additional Past Medical History / Comment(s): Emphysema (takes inhalers and uses oxygen at home). Hx Kidney Cancer in 2006, R nephrectomy.q Left eye detached retina. Wet Macular Degeneration right eye. Hx Melanoma on back. Bilateral hearing aid use, legally blind. History of Any Multi-Drug Resistant Organisms: None Reported Past Surgical History: Back Surgery Additional Past Surgical History / Comment(s): Right kidney removed. Left eye surgery X3 for detacted retina. Bilateral cataract surgery. surgery thoracic spine for melanoma.plate in right arm, bilateral eye lids lifted Past Anesthesia/Blood Transfusion Reactions: Previous Problems w/ Anesthesia Additional Past Anesthesia/Blood Transfusion Reaction / Comment(s): States low heart rate, light-headed and low BP X1 with anesthesia. "Got broke vocal cord and could not talk for 2 months after anesthesia one time." Past Psychological History: Anxiety, Depression Smoking Status: Former smoker Past Alcohol Use History: Occasional Past Drug Use History: None Reported - Past Family History Mother Family Medical History: Cancer Additional Family Medical History / Comment(s): Brain Cancer. Father Family Medical History: CVA/TIA Medications and Allergies Home Medications Medication Instructions Recorded Confirmed Type Apixaban [Eliquis] 5 mg PO BID 30 Days #60 tab 11/26/20 10/11/24 Rx Amiodarone [Cordarone] 100 mg PO DAILY 12/02/20 10/11/24 History Roflumilast [Daliresp] 500 mcg PO DAILY 01/17/21 10/11/24 History Potassium Chloride ER [K-Dur 20] 20 meq PO DAILY #30 tab 01/26/21 10/11/24 Rx Albuterol Inhaler [Ventolin Hfa 2 puff INHALATION RT-Q6H PRN 04/26/23 10/11/24 History Inhaler] Cholecalciferol [Vitamin D3 (25 25 mcg PO DAILY 04/26/23 10/11/24 History Mcg = 1000 Iu)] Fluticasone Propion/Salmeterol 1 puff INHALATION DIRECTED 04/26/23 10/11/24 History [Wixela 500-50 Inhub] Tiotropium 2.5 Mcg/Puff [Spiriva 2 puff INHALATION DIRECTED 04/26/23 10/11/24 History Respimat 2.5 Mcg] Albuterol Nebulized [Ventolin 2.5 mg INHALATION DIRECTED 02/15/24 10/11/24 History Nebulized] Bumetanide [BUMEX] 1 mg PO BID 02/15/24 10/11/24 History Carboxymethylcellulose Sodium 1 drop BOTH EYES Q6H PRN 02/15/24 10/11/24 History [Refresh Tears] Gabapentin [Neurontin] 200 mg PO DIRECTED 02/15/24 10/11/24 History traZODone HCL [Desyrel] 50 mg PO DIRECTED 02/15/24 10/11/24 History Sennosides/Docusate Sodium [Senna 1 tab PO BID 05/02/24 10/11/24 History Plus 8.6-50 mg Tablet] Aspirin 81 mg PO DAILY #90 tab 05/04/24 10/11/24 Rx Melatonin 5 mg PO HS tab 05/04/24 10/11/24 Rx Digoxin [Lanoxin] 125 mcg PO DIRECTED 10/11/24 10/11/24 History buPROPion SR [Wellbutrin SR] 150 mg PO BID 10/11/24 10/11/24 History Allergies Allergy/AdvReac Type Severity Reaction Status Date / Time atorvastatin [From Lipitor] AdvReac Muscle pain Verified 10/11/24 20:50 Physical Exam Vitals: Vital Signs Temp Pulse Resp BP Pulse Ox 10/11/24 21:13 84 18 127/64 90 L 10/11/24 19:25 18 10/11/24 18:41 98.4 F 85 18 126/58 93 L 10/11/24 18:36 98.1 F 89 22 93/53 92 L Intake and Output 10/11/24 10/11/24 10/11/24 06:59 14:59 22:59 Other: Weight 101.151 kg Results CBC & Chem 7: 10/11/24 19:21 10/11/24 19:21 Labs: Abnormal Lab Results - Last 24 Hours (Table) 10/11/24 10/11/24 Range/Units 19:21 19:21 RBC 3.64 L (4.40-5.60) 10*6/uL Hgb 10.7 L (13.0-17.0) g/dL Hct 34.5 L (39.6-50.0) % MCHC 31.0 L (32.0-37.0) g/dL MPV 9.4 L (9.5-12.2) fL Monocytes # 1.67 H (0.20-1.00) 10*3/uL Eosinophils # 0.38 H (0.04-0.35) 10*3/uL Carbon Dioxide 36 H (22-30) mmol/L BUN 31 H (9-20) mg/dL Creatinine 1.70 H (0.66-1.25) mg/dL Glucose 108 H (74-99) mg/dL
[2024-10-12] MEDS: NITROGLYCERIN OINT 1 INCH/GM PACKET TOPICAL SCH (01:10)
[2024-10-12] MEDS: buPROPion SR 150 MG TABLET.ER PO SCH (08:01)
[2024-10-12] MEDS: POTASSIUM CHLORIDE ER 20 MEQ TAB.ER PO SCH (08:01)
[2024-10-12] MEDS: DIGOXIN 125 MCG TAB PO SCH (08:01)
[2024-10-12] MEDS: ASPIRIN 81 MG PO SCH (08:08)
[2024-10-12] MEDS: BUMETANIDE 0.25 MG/ML 4 ML VIAL IVP SCH (08:25)
[2024-10-12] MEDS: AMIODARONE 100 MG TAB PO SCH (08:25)
[2024-10-12] MEDS: NON FORMULARY DRUG (Roflumilast [Daliresp] 500 MCG Tablet) PO SCH (08:29)
[2024-10-12] MEDS: TIOTROPIUM 2.5 MCG INHALER INHALATION SCH ×2 (08:46→12:19)
[2024-10-12] MEDS: SYMBICORT 160-4.5 MCG INHALER INHALATION SCH (08:47)
--- NOTE | 2024-10-12 08:49 | P.CRDCN ---
History of Present Illness Consult date: 10/12/24 Reason for Consult (text): Near syncope, acute pulmonary edema History of present illness: This is a 78-year-old male patient of Dr. Rodgers with past medical history of chronic hypoxic respiratory failure on home O2, obstructive sleep apnea on CPAP, paroxysmal atrial fibrillation on Eliquis, hypertension, dyslipidemia, remote history of smoking, history of coronary artery disease. We have been asked to evaluate the patient for near syncope and pulmonary edema. Patient states that his blood pressure was found to be low at home at 98/31. He states he had a little bit of difficulty breathing but no chest pain. He has had more shortness of breath from his baseline. He denies cough. He denies any congestion or sputum production. He denies syncopal episodes. Blood pressure 110/59, heart rate 75, pulse ox 98% on 4 L.Patient has been started on IV Bumex 1 mg twice daily. Patient is seen today in the emergency center waiting for a bed on the cardiac stepdown unit. -EKG:sinus rhythm -Chest x-ray: Cardiomegaly, pulmonary venous congestion and bilateral pleural effusion -Laboratory studies: WBC 9.6, hemoglobin 10.7. D-dimer 0.26. Troponin negative x 1. proBNP 394. Digoxin 0.16. BUN 31 creatinine 1.7. -Home cardiac medications: Amiodarone 100 mg daily, Eliquis 5 mg twice daily, aspirin 81 mg daily, Bumex 1 mg twice daily, digoxin 125 mcg daily, potassium chloride 20 mill equivalents daily, Crestor 10 mg daily. -Echocardiogram performed at [facility] on 05/03/2024 revealed EF of 55 to 60%. -Cardiac catheterization performed in 2019 revealed minimal CAD, 50% lesion in the distal left circumflex. -Holter monitor in 01/17/2024 revealed sinus rhythm with atrial tachycardia. Review Of Systems: At the time of my exam: CONSTITUTIONAL: Denies fever or chills. HEENT: Denies blurred vision, vision changes, or eye pain. Denies hemoptysis CARDIOVASCULAR: Denies chest pain. Denies orthopnea. Denies PND. Denies pa lpitations RESPIRATORY: Denies shortness of breath. GASTROINTESTINAL: Denies abdominal pain. Denies nausea or vomiting. HEMATOLOGIC: Denies bleeding disorders. GENITOURINARY: Denies any blood in urine. SKIN: Denies puritis. Denies rash. Physical examination: Gen: This is 78-year-old male in no acute distress. VS: reviewed HEENT: Head is atraumatic, normocephalic. Pupils equal, round. Sclerae is anicteric. NECK: Supple. No JVD. LUNGS: Diminished breath sounds. No intercostal retractions. HEART: Regular rate and rhythm. Soft systolic murmur. ABDOMEN: Soft No tenderness. EXTREMITIES: Bilateral lower extremity edema. No calf tenderness. NEUROLOGICAL: Patient is awake, alert and oriented x3. Assessment: Hypotension Near syncope Acute diastolic heart failure Paroxysmal atrial fibrillation on Eliquis Hypertension Dyslipidemia CAD with known 50% lesion in the distal left circumflex Chronic hypoxic respiratory failure on home O2 Obstructive sleep apnea on CPAP Remote history of tobacco use Plan: Resume patient's home cardiac medications Continue patient on IV Bumex 1 mg twice daily Monitor AMAIRANI, daily weights, electrolytes and renal function No need to repeat echocardiogram Further recommendations to follow based upon clinical course Thank you kindly for this consultation. Nurse practitioner note has been reviewed, I agree with documented findings and plan of care. Patient was seen and examined. Past Medical History Past Medical History: Atrial Fibrillation, Cancer, Heart Failure, COPD, Eye Disorder, Hearing Disorder / Deafness, Hyperlipidemia, Hypertension, Osteoarthritis (OA) Additional Past Medical History / Comment(s): Emphysema (takes inhalers and uses oxygen at home). Hx Kidney Cancer in 2006, R nephrectomy.q Left eye detached retina. Wet Macular Degeneration right eye. Hx Melanoma on back. Bilateral hearing aid use, legally blind. History of Any Multi-Drug Resistant Organisms: None Reported Past Surgical History: Back Surgery Additional Past Surgical History / Comment(s): Right kidney removed. Left eye surgery X3 for detacted retina. Bilateral cataract surgery. surgery thoracic spine for melanoma.plate in right arm, bilateral eye lids lifted Past Anesthesia/Blood Transfusion Reactions: Previous Problems w/ Anesthesia Additional Past Anesthesia/Blood Transfusion Reaction / Comment(s): States low heart rate, light-headed and low BP X1 with anesthesia. "Got broke vocal cord and could not talk for 2 months after anesthesia one time." Past Psychological History: Anxiety, Depression Smoking Status: Former smoker Past Alcohol Use History: Occasional Past Drug Use History: None Reported - Past Family History Mother Family Medical History: Cancer Additional Family Medical History / Comment(s): Brain Cancer. Father Family Medical History: CVA/TIA Medications and Allergies Home Medications Medication Instructions Recorded Confirmed Type Apixaban [Eliquis] 5 mg PO BID 30 Days #60 tab 11/26/20 10/11/24 Rx Roflumilast [Daliresp] 500 mcg PO DAILY 01/17/21 10/11/24 History Potassium Chloride ER [K-Dur 20] 20 meq PO DAILY #30 tab 01/26/21 10/11/24 Rx Albuterol Inhaler [Ventolin Hfa 2 puff INHALATION RT-Q6H PRN 04/26/23 10/11/24 History Inhaler] Cholecalciferol [Vitamin D3 (25 25 mcg PO DAILY 04/26/23 10/11/24 History Mcg = 1000 Iu)] Fluticasone Propion/Salmeterol 1 puff INHALATION RT-BID 04/26/23 10/12/24 History [Wixela 500-50 Inhub] Tiotropium 2.5 Mcg/Puff [Spiriva 2 puff INHALATION RT-DAILY 04/26/23 10/12/24 History Respimat 2.5 Mcg] Albuterol Nebulized [Ventolin 2.5 mg INHALATION RT-Q4H 02/15/24 10/12/24 History Nebulized] Bumetanide [BUMEX] 1 mg PO BID 02/15/24 10/11/24 History Carboxymethylcellulose Sodium 1 drop BOTH EYES Q6H PRN 02/15/24 10/11/24 History [Refresh Tears] traZODone HCL [Desyrel] 50 mg PO HS 02/15/24 10/12/24 History Sennosides/Docusate Sodium [Senna 1 tab PO BID 05/02/24 10/11/24 History Plus 8.6-50 mg Tablet] Aspirin 81 mg PO DAILY #90 tab 05/04/24 10/11/24 Rx Melatonin 5 mg PO HS tab 05/04/24 10/11/24 Rx Digoxin [Lanoxin] 125 mcg PO DAILY 10/11/24 10/12/24 History Amiodarone [Cordarone] 100 mg PO DAILY 10/12/24 10/12/24 History Gabapentin 300 mg PO BID 10/12/24 10/12/24 History Lidocaine 5% Patch [Lidoderm] 1 patch TOPICAL DAILY 10/12/24 10/12/24 History Rosuvastatin [Crestor] 10 mg PO DAILY 10/12/24 10/12/24 History Vit C/E/Zn/Coppr/Lutein/Zeaxan 1 cap PO BID 10/12/24 10/12/24 History [Preservision Areds 2 Softgel] buPROPion [Wellbutrin] 150 mg PO BID 10/12/24 10/12/24 History methocarbamoL [Robaxin] 500 mg PO TID 10/12/24 10/12/24 History predniSONE 5 mg PO DAILY 10/12/24 10/12/24 History Allergies Allergy/AdvReac Type Severity Reaction Status Date / Time atorvastatin [From Lipitor] AdvReac Muscle pain Verified 10/12/24 08:28 Physical Exam Vitals: Vital Signs Temp Pulse Resp BP Pulse Ox 10/12/24 05:58 98.0 F 75 17 110/59 98 10/12/24 01:14 98.4 F 76 17 127/64 97 10/11/24 21:13 84 18 127/64 90 L 10/11/24 19:25 18 10/11/24 18:41 98.4 F 85 18 126/58 93 L 10/11/24 18:36 98.1 F 89 22 93/53 92 L Intake and Output 10/11/24 10/11/24 10/12/24 14:59 22:59 06:59 Output Total 1100 1000 Balance -1100 -1000 Output: Urine 1100 1000 Other: Weight 101.151 kg Results 10/11/24 19:21 10/11/24 19:21 Cardiac Enzymes 10/11/24 10/11/24 Range/Units 19:21 19:21 AST 22 (17-59) U/L Troponin I <0.012 (0.000-0.034) ng/mL Coagulation 10/11/24 Range/Units 19:21 PT 10.3 (10.0-12.5) sec APTT 24.7 (22.0-30.0) sec CBC 10/11/24 Range/Units 19:21 WBC 9.60 (4.50-10.00) 10*3/uL RBC 3.64 L (4.40-5.60) 10*6/uL Hgb 10.7 L (13.0-17.0) g/dL Hct 34.5 L (39.6-50.0) % Plt Count 212 (140-440) 10*3/uL Comprehensive Metabolic Panel 10/11/24 Range/Units 19:21 Sodium 140 (137-145) mmol/L Potassium 3.9 (3.5-5.1) mmol/L Chloride 98 (98-107) mmol/L Carbon Dioxide 36 H (22-30) mmol/L BUN 31 H (9-20) mg/dL Creatinine 1.70 H (0.66-1.25) mg/dL Glucose 108 H (74-99) mg/dL Calcium 9.1 (8.4-10.2) mg/dL AST 22 (17-59) U/L ALT 14 (4-49) U/L Alkaline Phosphatase 84 (38-126) U/L Total Protein 6.5 (6.3-8.2) g/dL Albumin 3.6 (3.5-5.0) g/dL Current Medications Generic Name Dose Route Start Last Admin Trade Name Freq PRN Reason Stop Dose Admin Albuterol/Ipratropium 3 ml 10/11/24 20:38 Ipratropium-Albuterol 3 Ml Neb INHALATION RT-QID PRN Shortness Of Breath Or Wheezing Albuterol/Ipratropium 3 ml 10/11/24 20:38 Ipratropium-Albuterol 3 Ml Neb INHALATION RT-Q2H PRN Shortness Of Breath Or Wheezing Amiodarone HCl 100 mg 10/12/24 09:00 Amiodarone 100 Mg Tab PO DAILY [facility] Apixaban 5 mg 10/11/24 21:45 10/11/24 22:16 Apixaban 5 Mg Tab PO 5 mg BID [facility] Administration Protocol Aspirin 81 mg 10/12/24 09:00 Aspirin 81 Mg PO DAILY [facility] Budesonide/Formoterol Fumarate 2 puff 10/12/24 08:00 Symbicort 160-4.5 Mcg Inhaler INHALATION RT-BID [facility] Bumetanide 1 mg 10/12/24 09:00 Bumetanide 0.25 Mg/Ml 4 Ml Vial IVP BID [facility] Bupropion HCl 150 mg 10/12/24 09:00 Bupropion Sr 150 Mg Tablet.Er PO BID [facility] Digoxin 125 mcg 10/12/24 09:00 Digoxin 125 Mcg Tab PO DAILY [facility] Gabapentin 200 mg 10/11/24 21:45 10/11/24 22:16 Gabapentin 100 Mg Cap PO 200 mg BID [facility] Administration Melatonin 5 mg 10/11/24 21:36 Melatonin 5 Mg Tablet PO HS PRN Insomnia Nitroglycerin 1 inch 10/12/24 00:00 10/12/24 05:56 Nitroglycerin Oint 1 Inch/Gm Packet TOPICAL 10/13/24 00:00 1 inch Q6HR [facility] Administration Non-Formulary Medication 500 mcg 10/12/24 09:00 Roflumilast [Daliresp] PO DAILY [facility] Potassium Chloride 20 meq 10/12/24 09:00 Potassium Chloride Er 20 Meq Tab.Er PO DAILY [facility] Tiotropium [place] 2.5 puff 10/12/24 08:00 Tiotropium 2.5 Mcg Inhaler INHALATION RT-DAILY [facility] Trazodone HCl 50 mg 10/11/24 21:45 10/11/24 22:16 Trazodone Hcl 50 Mg Tab PO 50 mg HS [facility] Administration Intake and Output 10/11/24 10/11/24 10/12/24 14:59 22:59 06:59 Output Total 1100 1000 Balance -1100 -1000 Output: Urine 1100 1000 Other: Weight 101.151 kg Patient Weight 10/12/24 06:59 Weight 101.151 kg 10/11/24 19:21 10/11/24 19:21
--- NOTE | 2024-10-12 12:40 | P.PN ---
Subjective Progress Note Date: 10/12/24 Subjective: Patient seen and examined at bedside. No acute events overnight. Claims that breathing has improved. Uses 2 L of oxygen via nasal cannula at home. Pertinent positives and negatives as discussed above, a complete review of systems was performed and all other systems are negative. Vitals Signs Reviewed. General: Nontoxic, no distress, appears at stated age Derm: Warm, dry Head: Atraumatic, normocephalic, symmetric Eyes: EOMI, no lid lag, anicteric sclera Mouth: No lip lesion, mucus membranes moist Cardiovascular: S1S2 reg, no murmur Lungs: Bibasilar Rales, no accessory muscle use, supplemental oxygen Abdominal: Soft, nontender to palpation, no guarding, no appreciable organomegaly Ext: No gross muscle atrophy, trace peripheral edema, no contractures Neuro: CN II-XI grossly intact, no focal neuro deficits Psych: Alert, oriented, appropriate affect Data Reviewed Today: Pertinent Labs: No new labs, repeat BMP and magnesium pending, will be reviewed when available Imaging: No new imaging Assessment and Plan: Active: Acute diastolic heart failure exacerbation Acute on chronic hypoxic respiratory failure Near syncopal episodes Paroxysmal A-fib Hypotension - Patient currently maintained on IV Bumex 1 mg twice daily, monitor electrolytes and renal function - Heart rate under control, possibly causing presyncopal episodes - Orthostatic vitals to be checked as well - Continue telemetry monitoring - Continue amiodarone 100 mg daily, Eliquis 5 mg twice daily, digoxin 125 mcg daily - Cardiology note reviewed, patient had recent echo echocardiogram, no need to r epeat, continue current management Chronic: CAD COPD, not in exacerbation Peripheral neuropathy Depression/anxiety Insomnia CKD stage III DVT ppx: Eliquis Code status: Full code Anticipated discharge place: Pending clinical course Anticipated discharge time: Pending clinical course Objective - Vital Signs Vital signs: Vital Signs Temp 98.0 F 10/12/24 05:58 Pulse 80 10/12/24 11:00 Resp 18 10/12/24 11:00 BP 125/60 10/12/24 11:00 Pulse Ox 95 10/12/24 11:00 FiO2 Intake & Output 10/11/24 10/12/24 10/12/24 18:59 06:59 18:59 Output Total 2100 Balance -2100 Weight 101.151 kg Output: Urine 2100 - Labs CBC & Chem 7: 10/11/24 19:21 10/11/24 19:21 Labs: Abnormal Lab Results - Last 24 Hours (Table) 10/11/24 10/11/24 Range/Units 19:21 19:21 RBC 3.64 L (4.40-5.60) 10*6/uL Hgb 10.7 L (13.0-17.0) g/dL Hct 34.5 L (39.6-50.0) % MCHC 31.0 L (32.0-37.0) g/dL MPV 9.4 L (9.5-12.2) fL Monocytes # 1.67 H (0.20-1.00) 10*3/uL Eosinophils # 0.38 H (0.04-0.35) 10*3/uL Carbon Dioxide 36 H (22-30) mmol/L BUN 31 H (9-20) mg/dL Creatinine 1.70 H (0.66-1.25) mg/dL Glucose 108 H (74-99) mg/dL
[2024-10-12 14:01] LABS: African American GFR (CKD) 55 (>60 ml/min/1.73 sqM); Anion Gap 8 mmol/L; Blood Urea Nitrogen 26 mg/dL (9-20); Carbon Dioxide 37 mmol/L (22-30); Chloride 93 mmol/L (98-107); Glucose 128 mg/dL (74-99); Non-African American GFR(CKD) 47 (>60 ml/min/1.73 sqM); Potassium 3.9 mmol/L (3.5-5.1); Sodium 138 mmol/L (137-145)
[2024-10-13 08:51] LABS: African American GFR (CKD) 55 (>60 ml/min/1.73 sqM); Anion Gap 5 mmol/L; Blood Urea Nitrogen 26 mg/dL (9-20); Calcium 8.8 mg/dL (8.4-10.2); Carbon Dioxide 38 mmol/L (22-30); Chloride 95 mmol/L (98-107); Glucose 144 mg/dL (74-99); Magnesium 1.9 mg/dL (1.6-2.3); Non-African American GFR(CKD) 48 (>60 ml/min/1.73 sqM); Potassium 3.9 mmol/L (3.5-5.1); Sodium 138 mmol/L (137-145)
--- NOTE | 2024-10-13 12:26 | P.PN ---
Subjective Progress Note Date: 10/13/24 Subjective: Patient seen and examined at bedside. No acute events overnight. Claims that breathing has improved. Uses 2 L of oxygen via nasal cannula at home. Pertinent positives and negatives as discussed above, a complete review of systems was performed and all other systems are negative. Vitals Signs Reviewed. General: Nontoxic, no distress, appears at stated age Derm: Warm, dry Head: Atraumatic, normocephalic, symmetric Eyes: EOMI, no lid lag, anicteric sclera Mouth: No lip lesion, mucus membranes moist Cardiovascular: S1S2 reg, no murmur Lungs: Bibasilar Rales, no accessory muscle use, supplemental oxygen Abdominal: Soft, nontender to palpation, no guarding, no appreciable organomegaly Ext: No gross muscle atrophy, trace peripheral edema, no contractures Neuro: CN II-XI grossly intact, no focal neuro deficits Psych: Alert, oriented, appropriate affect Data Reviewed Today: Pertinent Labs: Creatinine 1.41, potassium 3.9, magnesium 1 point Imaging: No new imaging Assessment and Plan: Active: Acute diastolic heart failure exacerbation Acute on chronic hypoxic respiratory failure Near syncopal episodes Paroxysmal A-fib Hypotension - Patient currently maintained on IV Bumex 1 mg twice daily, monitor electrolytes and renal function - Heart rate under control, possibly causing presyncopal episodes - Orthostatic vitals to be checked as well - Continue telemetry monitoring - Continue amiodarone 100 mg daily, Eliquis 5 mg twice daily, digoxin 125 mcg daily - Cardiology following patient had recent echo echocardiogram, no need to repeat, continue current management Chronic: CAD COPD, not in exacerbation Peripheral neuropathy Depression/anxiety Insomnia CKD stage III DVT ppx: Eliquis Code status: Full code Anticipated discharge place: Pending clinical course Anticipated discharge time: Pending clinical course Objective - Vital Signs Vital signs: Vital Signs Temp 98.2 F 10/13/24 11:40 Pulse 77 10/13/24 11:40 Resp 18 10/13/24 11:40 BP 118/66 10/13/24 11:40 Pulse Ox 96 10/13/24 11:40 FiO2 Intake & Output 10/12/24 10/13/24 10/13/24 18:59 06:59 18:59 Intake Total 240 540 730 Output Total 1000 Balance -760 540 730 Weight 101.151 kg 97.1 kg Intake: IV 10 Invasive Line 1 10 Oral 240 540 720 Output: Urine 1000 Other: Voiding Method Toilet Toilet - Labs CBC & Chem 7: 10/11/24 19:21 10/13/24 08:01 Labs: Abnormal Lab Results - Last 24 Hours (Table) 10/12/24 10/13/24 Range/Units 13:17 08:01 Chloride 93 L 95 L (98-107) mmol/L Carbon Dioxide 37 H 38 H (22-30) mmol/L BUN 26 H 26 H (9-20) mg/dL Creatinine 1.42 H 1.41 H (0.66-1.25) mg/dL Glucose 128 H 144 H (74-99) mg/dL
[2024-10-13 12:47] VITALS: BMI 30.7
[2024-10-14] MEDS: BUMETANIDE 1 MG TAB PO SCH (09:48)
--- NOTE | 2024-10-14 11:20 | P.DS ---
Providers Date of admission: 10/11/24 20:38 Attending physician: Erik Song MD Consults: 10/11/24 20:36 Consult Physician Routine Consulting Provider: [facility] Consult Reason/Comments: Near syncope, pulmonary edema Do you want consulting provider notified?: Yes Primary care physician: Sinan Kurtz [facility] Hospital Course: Discharge Diagnosis: Acute diastolic heart failure exacerbation Acute on chronic hypoxic respiratory failure Near syncopal episodes Paroxysmal A-fib Hypotension CAD COPD, not in exacerbation Peripheral neuropathy Depression/anxiety Insomnia CKD stage III Hospital Course: 78-year-old with PMH of COPD home oxygen dependent on 2 L [address] Ware (pulmonology), nicotine dependence, hypertension, hyperlipidemia, HFpEF (most recent echocardiogram from 05/03/2024 showed EF 55-60%), paroxysmal atrial fibrillation maintained on Eliquis, renal cell carcinoma s/p right nephrectomy with CKD stage IIIa, macular degeneration and peripheral neuropathy. He presents to the emergency department with complaint of shortness of breath. Labratory review: -WBCs 9.60, hemoglobin 10.7, hematocrit 34.5, platelet 212; sodium 140, potassium 3.9, bicarb 36, BUN 31, creatinine 1.70, lactic acid 1.5, calcium 9.1, magnesium 2.3, total bilirubin 0.4, AST 22, ALT 14, alkaline phosphatase 84 - Troponin <0.012; proBNP 394 -Respiratory viral panel all negative Imaging: - Chest x-ray done in the ED independently read and interpreted showed pulmonary vascular congestion and bilateral pleural effusions - EKG done in the ER showed heart rate of 77, sinus rhythm, no ST segment elevation or depression seen, no T-wave inversions seen; QTc 434 Vitals: - On arrival: Blood pressure 93/53, heart rate 89, respiratory rate 22, SpO2 92% on 3 L nasal cannula Patient was started on IV Bumex 1 mg twice daily. Respiratory function improved over the course of his inpatient stay. Denies any further episodes of near syncope. being discharged on oral Bumex. Follow-up outpatient with PCP and cardiology. Patient seen and examined at bedside. Vital signs reviewed and stable. General: Nontoxic, no distress, appears at stated age Derm: Warm, dry Head: Atraumatic, normocephalic, symmetric Eyes: EOMI, no lid lag, anicteric sclera Mouth: No lip lesion, mucus membranes moist Cardiovascular: S1S2 reg, no murmur Lungs: CTA bilateral, no rhonchi, no rales, no accessory muscle use, supplemental oxygen Abdominal: Soft, nontender to palpation, no guarding, no appreciable organomegaly Ext: No gross muscle atrophy, trace peripheral edema, no contractures Neuro: CN II-XI grossly intact, no focal neuro deficits Psych: Alert, oriented, appropriate affect A total of 38 minutes of time were spent preparing this complex discharge summary. Patient was discharged on 10/14/2024 at 822. Plan - Discharge Summary Discharge Rx Participant: No New Discharge Prescriptions: Continue Apixaban [Eliquis] 5 mg PO BID 30 Days #60 tab Albuterol Inhaler [Ventolin Hfa Inhaler] 2 puff INHALATION RT-Q6H PRN PRN Reason: Shortness Of Breath Albuterol Nebulized [Ventolin Nebulized] 2.5 mg INHALATION RT-Q4H Bumetanide [BUMEX] 1 mg PO BID Sennosides/Docusate Sodium [Senna Plus 8.6-50 mg Tablet] 1 tab PO BID Digoxin [Lanoxin] 125 mcg PO DAILY Amiodarone [Cordarone] 100 mg PO DAILY buPROPion [Wellbutrin] 150 mg PO BID Gabapentin 300 mg PO BID Rosuvastatin [Crestor] 10 mg PO DAILY Roflumilast [Daliresp] 500 mcg PO DAILY Potassium Chloride ER [K-Dur 20] 20 meq PO DAILY #30 tab Fluticasone Propion/Salmeterol [Wixela 500-50 Inhub] 1 puff INHALATION RT-BID Cholecalciferol [Vitamin D3 (25 Mcg = 1000 Iu)] 25 mcg PO DAILY Tiotropium 2.5 Mcg/Puff [Spiriva Respimat 2.5 Mcg] 2 puff INHALATION RT-DAILY traZODone HCL [Desyrel] 50 mg PO HS Carboxymethylcellulose Sodium [Refresh Tears] 1 drop BOTH EYES Q6H PRN PRN Reason: Dry Eye(S) Melatonin 5 mg PO HS tab Aspirin 81 mg PO DAILY #90 tab predniSONE 5 mg PO DAILY methocarbamoL [Robaxin] 500 mg PO TID Vit C/E/Zn/Coppr/Lutein/Zeaxan [Preservision Areds 2 Softgel] 1 cap PO BID Lidocaine 5% Patch [Lidoderm 5% Patch] 1 patch TOPICAL DAILY Discharge Medication List Apixaban [Eliquis] 5 mg PO BID 30 Days #60 tab 11/26/20 [Rx] Roflumilast [Daliresp] 500 mcg PO DAILY 01/17/21 [History] Potassium Chloride ER [K-Dur 20] 20 meq PO DAILY #30 tab 01/26/21 [Rx] Albuterol Inhaler [Ventolin Hfa Inhaler] 2 puff INHALATION RT-Q6H PRN 04/26/23 [History] Cholecalciferol [Vitamin D3 (25 Mcg = 1000 Iu)] 25 mcg PO DAILY 04/26/23 [History] Fluticasone Propion/Salmeterol [Wixela 500-50 Inhub] 1 puff INHALATION RT-BID 04/26/23 [History] Tiotropium 2.5 Mcg/Puff [Spiriva Respimat 2.5 Mcg] 2 puff INHALATION RT-DAILY 04/26/23 [History] Albuterol Nebulized [Ventolin Nebulized] 2.5 mg INHALATION RT-Q4H 02/15/24 [History] Bumetanide [BUMEX] 1 mg PO BID 02/15/24 [History] Carboxymethylcellulose Sodium [Refresh Tears] 1 drop BOTH EYES Q6H PRN 02/15/24 [History] traZODone HCL [Desyrel] 50 mg PO HS 02/15/24 [History] Sennosides/Docusate Sodium [Senna Plus 8.6-50 mg Tablet] 1 tab PO BID 05/02/24 [History] Aspirin 81 mg PO DAILY #90 tab 05/04/24 [Rx] Melatonin 5 mg PO HS tab 05/04/24 [Rx] Digoxin [Lanoxin] 125 mcg PO DAILY 10/11/24 [History] Amiodarone [Cordarone] 100 mg PO DAILY 10/12/24 [History] Gabapentin 300 mg PO BID 10/12/24 [History] Lidocaine 5% Patch [Lidoderm 5% Patch] 1 patch TOPICAL DAILY 10/12/24 [History] Rosuvastatin [Crestor] 10 mg PO DAILY 10/12/24 [History] Vit C/E/Zn/Coppr/Lutein/Zeaxan [Preservision Areds 2 Softgel] 1 cap PO BID 10/12/24 [History] buPROPion [Wellbutrin] 150 mg PO BID 10/12/24 [History] methocarbamoL [Robaxin] 500 mg PO TID 10/12/24 [History] predniSONE 5 mg PO DAILY 10/12/24 [History] Follow up Appointment(s)/Referral(s): Efe Dolan MD [Medical Doctor] - 1 Week (please call and make appointment) Sinan Kurtz DO [Primary Care Provider] - 1-2 days (please call and make appointment) Patient Instructions/Handouts: Heart Failure (DC), Pulmonary Edema (DC), Near Syncope (DC), Fluid Restriction (GEN) Activity/Diet/Wound Care/Special Instructions: Please see PCP and cardiology. Discharge Disposition: HOME SELF-CARE
[2024-10-14 11:26] VITALS: BP 118/64; PULSE 80; RESP 18; TEMP 98.1
== END 2024-10-14 11:31 | disposition home or self-care (01) | DRG 291 ==
LOC: EC 18:06 → UNDOADMOB 20:38 → 3SCARD 20:38 → OBSVTOIN 20:39 → 3SCARD 10-12 14:51 → UNDODISOB 10-14 11:31
PROVIDERS: ADMIT Student in an Organized Health Care Education/Training Program; ATTEND Student in an Organized Health Care Education/Training Program
DX: I13.0 Hypertensive heart and chronic kidney disease with heart failure and stage 1 through stage 4 chronic kidney disease, or unspecified chronic kidney disease (principal); I50.33 Acute on chronic diastolic (congestive) heart failure; J96.21 Acute and chronic respiratory failure with hypoxia; E87.3 Alkalosis; I95.9 Hypotension, unspecified; F32.A Depression, unspecified; I48.0 Paroxysmal atrial fibrillation; E78.5 Hyperlipidemia, unspecified; G62.9 Polyneuropathy, unspecified; N18.31 Chronic kidney disease, stage 3a; J43.9 Emphysema, unspecified; H35.3210 Exudative age-related macular degeneration, right eye, stage unspecified; Z79.01 Long term (current) use of anticoagulants; I25.10 Atherosclerotic heart disease of native coronary artery without angina pectoris; H54.8 Legal blindness, as defined in USA; H91.90 Unspecified hearing loss, unspecified ear; F41.9 Anxiety disorder, unspecified; G47.00 Insomnia, unspecified; G47.33 Obstructive sleep apnea (adult) (pediatric); Z99.81 Dependence on supplemental oxygen; Z79.82 Long term (current) use of aspirin; Z79.51 Long term (current) use of inhaled steroids; Z79.899 Other long term (current) drug therapy; Z87.891 Personal history of nicotine dependence; Z85.528 Personal history of other malignant neoplasm of kidney; Z85.820 Personal history of malignant melanoma of skin; Z88.8 Allergy status to other drugs, medicaments and biological substances
CPT/HCPCS: 36415; 71046; 80048; 80053; 80162; 83605; 83690; 83735; 83880; 84484; 85025; 85379; 85610; 85730; 93005; 94640; 94760; 96374; 96375; 96376; 99285

== ENCOUNTER 2024-10-18 00:09 | Emergency (ER) | payer MEDICARE, OTHER ==
[2024-10-18 00:17] VITALS: RESP 18; TEMP 98.3
--- NOTE | 2024-10-18 01:19 | ED ---
General Adult HPI - General Chief complaint: Chest Pain Stated complaint: Irregular BP Time Seen by Provider: 10/18/24 00:44 Source: patient, RN notes reviewed, old records reviewed Mode of arrival: wheelchair Limitations: no limitations - History of Present Illness Initial comments: 78-year-old male presenting for evaluation of low blood pressure. Patient had taken his blood pressure several times at home and this was noted to be low. He does have history of heart failure and COPD for which he is oxygen dependent. He denies any chest pain currently. He states he has chronic dyspnea which is unchanged from baseline. No fever. No vomiting or diarrhea. - Related Data Home Medications Medication Instructions Recorded Confirmed Roflumilast [Daliresp] 500 mcg PO DAILY 01/17/21 10/11/24 Albuterol Inhaler [Ventolin Hfa 2 puff INHALATION RT-Q6H PRN 04/26/23 10/11/24 Inhaler] Cholecalciferol [Vitamin D3 (25 25 mcg PO DAILY 04/26/23 10/11/24 Mcg = 1000 Iu)] Fluticasone Propion/Salmeterol 1 puff INHALATION RT-BID 04/26/23 10/12/24 [Wixela 500-50 Inhub] Tiotropium 2.5 Mcg/Puff [Spiriva 2 puff INHALATION RT-DAILY 04/26/23 10/12/24 Respimat 2.5 Mcg] Albuterol Nebulized [Ventolin 2.5 mg INHALATION RT-Q4H 02/15/24 10/12/24 Nebulized] Bumetanide [BUMEX] 1 mg PO BID 02/15/24 10/11/24 Carboxymethylcellulose Sodium 1 drop BOTH EYES Q6H PRN 02/15/24 10/11/24 [Refresh Tears] traZODone HCL [Desyrel] 50 mg PO HS 02/15/24 10/12/24 Sennosides/Docusate Sodium [Senna 1 tab PO BID 05/02/24 10/11/24 Plus 8.6-50 mg Tablet] Digoxin [Lanoxin] 125 mcg PO DAILY 10/11/24 10/12/24 Amiodarone [Cordarone] 100 mg PO DAILY 10/12/24 10/12/24 Gabapentin 300 mg PO BID 10/12/24 10/12/24 Lidocaine 5% Patch [Lidoderm 5% 1 patch TOPICAL DAILY 10/12/24 10/12/24 Patch] Rosuvastatin [Crestor] 10 mg PO DAILY 10/12/24 10/12/24 Vit C/E/Zn/Coppr/Lutein/Zeaxan 1 cap PO BID 10/12/24 10/12/24 [Preservision Areds 2 Softgel] buPROPion [Wellbutrin] 150 mg PO BID 10/12/24 10/12/24 methocarbamoL [Robaxin] 500 mg PO TID 10/12/24 10/12/24 predniSONE 5 mg PO DAILY 10/12/24 10/12/24 Previous Rx's Medication Instructions Recorded Apixaban [Eliquis] 5 mg PO BID 30 Days #60 tab 11/26/20 Potassium Chloride ER [K-Dur 20] 20 meq PO DAILY #30 tab 01/26/21 Aspirin 81 mg PO DAILY #90 tab 05/04/24 Melatonin 5 mg PO HS tab 05/04/24 Allergies Allergy/AdvReac Type Severity Reaction Status Date / Time atorvastatin [From Lipitor] AdvReac Muscle pain Verified 10/18/24 00:11 Review of Systems ROS Statement: Those systems with pertinent positive or pertinent negative responses have been documented in the HPI. ROS Other: All systems not noted in ROS Statement are negative. Past Medical History Past Medical History: Atrial Fibrillation, Cancer, Heart Failure, COPD, Eye Disorder, Hearing Disorder / Deafness, Hyperlipidemia, Hypertension, Osteoarthritis (OA) Additional Past Medical History / Comment(s): Emphysema (takes inhalers and uses oxygen at home). Hx Kidney Cancer in 2006, R nephrectomy.q Left eye detached retina. Wet Macular Degeneration right eye. Hx Melanoma on back. Bilateral hearing aid use, legally blind. History of Any Multi-Drug Resistant Organisms: None Reported Past Surgical History: Back Surgery Additional Past Surgical History / Comment(s): Right kidney removed. Left eye surgery X3 for detacted retina. Bilateral cataract surgery. surgery thoracic spine for melanoma.plate in right arm, bilateral eye lids lifted Past Anesthesia/Blood Transfusion Reactions: Previous Problems w/ Anesthesia Additional Past Anesthesia/Blood Transfusion Reaction / Comment(s): States low heart rate, light-headed and low BP X1 with anesthesia. "Got broke vocal cord and could not talk for 2 months after anesthesia one time." Past Psychological History: Anxiety, Depression Smoking Status: Former smoker Past Alcohol Use History: Daily Past Drug Use History: Marijuana - Past Family History Mother Family Medical History: Cancer Additional Family Medical History / Comment(s): Brain Cancer. Father Family Medical History: CVA/TIA General Exam Limitations: no limitations General appearance: alert, in no apparent distress Head exam: Present: atraumatic, normocephalic Eye exam: Present: normal appearance, PERRL ENT exam: Present: normal exam Neck exam: Present: normal inspection. Absent: tenderness, meningismus Respiratory exam: Present: decreased breath sounds. Absent: respiratory distress, wheezes, rhonchi Cardiovascular Exam: Present: regular rate, normal rhythm GI/Abdominal exam: Present: soft. Absent: distended, tenderness Extremities exam: Present: pedal edema Neurological exam: Present: alert, oriented X3, CN II-XII intact. Absent: motor sensory deficit Psychiatric exam: Present: normal affect, normal mood Skin exam: Present: warm, dry, intact Course Vital Signs 10/18/24 10/18/24 10/18/24 00:12 01:04 01:22 Temperature 98.3 F Pulse Rate 83 75 73 Pulse Rate [ 75 Right Sitting Radial] Respiratory 18 18 18 Rate Blood Pressure 121/65 111/74 111/74 O2 Sat by Pulse 92 L 94 L 95 Oximetry Medical Decision Making - Medical Decision Making Was pt. sent in by a medical professional or institution ([facility], EDIPHONE OPERATOR, urgent care, hospital, or shelter...) When possible be specific @ -No Did you speak to anyone other than the patient for history (EMS, parent, family, police, friend...)? What history was obtained from this source @ -No Did you review nursing and triage notes (agree or disagree)? Why? @ -I reviewed and agree with nursing and triage notes Were old charts reviewed (outside hosp., previous admission, EMS record, old EKG, old radiological studies, urgent care reports/EKG's, shelter records)? Report findings @ -No old charts were reviewed Differential Dyspnea: Coronary syndrome, arrhythmia, tamponade, asthma, COPD, pulmonary embolism, pneumonia, pneumothorax, pulmonary effusion, anaphylaxis, diabetic ketoacidosis, flailed chest, pulmonary contusion, diaphragmatic rupture, anemia, neuromusc ular, this is not meant to be an all-inclusive list. EKG interpreted by me (3pts min.). @ -Sinus rhythm right bundle branch block rate of 79, ME interval 156, QRS duration 149, QTc 411 X-rays interpreted by me (1pt min.). @Chest x-ray showing chronic changes without consolidative pneumonia or pne umothorax CT interpreted by me (1pt min.). @ -None done U/S interpreted by me (1pt. min.). @ -None done What testing was considered but not performed or refused? (CT, X-rays, U/S, labs)? Why? @ -None What meds were considered but not given or refused? Why? @ -None Did you discuss the management of the patient with other professionals (professionals i.e. , PA, EDIPHONE OPERATOR, lab, RT, psych nurse, social work lecturer, shim plug cutter, teacher, drug abuse resistance education officer, bilingual patient support caseworker)? Give summary @ -No Was smoking cessation discussed for >3mins.? @ -No Was critical care preformed (if so, how long)? @ -No Were there social determinants of health that impacted care today? How? (Homelessness, low income, unemployed, alcoholism, drug addiction, transportation, low edu. Level, literacy, decrease access to med. care, alf, rehab)? @ -No Was there de-escalation of care discussed even if they declined (Discuss DNR or withdrawal of care, Hospice)? DNR status @ -No What co-morbidities impacted this encounter? (DM, HTN, Smoking, COPD, CAD, Cancer, CVA, ARF, Chemo, Hep., AIDS, mental health diagnosis, sleep apnea, morbid obesity)? @Oxygen dependent COPD, congestive heart failure Was patient admitted / discharged? Hospital course, mention meds given and route, prescriptions, significant lab abnormalities, going to OR and other pertinent info. @ -78-year-old male presenting with low blood pressure. Patient does not have any other specific complaints at the time my evaluation. His blood pressure is checked on several occasions in the emergency department and is stable. Patient is in sinus rhythm no ST segment elevation. He has a negative troponin, negative BNP, CBC showing chronic anemia with hemoglobin 9.5. Normal white blood cell count. Chronic stable chronic kidney disease. Patient informed of results. He is eager for discharge. He is attempting to obtain a new blood pressure cuff from the CT. Will monitor and return with development of symptoms. Undiagnosed new problem with uncertain prognosis? @ -No Drug Therapy requiring intensive monitoring for toxicity (Heparin, Nitro, Insulin, Cardizem)? @ -No Were any procedures done? @ -No Diagnosis/symptom? @ -[Blood pressure check, hypotensive at home normotensive in the emergency department Acute, or Chronic, or Acute on Chronic? @ -Acute Uncomplicated (without systemic symptoms) or Complicated (systemic symptoms)? @ -Default Side effects of treatment? @ -No Exacerbation, Progression, or Severe Exacerbation? @ -No Poses a threat to life or bodily function? How? (Chest pain, [place], [place], pneumonia, PE, COPD, DKA, ARF, appy, cholecystitis, CVA, Diverticulitis, Homicidal, Suicidal, threat to staff... and all critical care pts) @ -No - Lab Data Result diagrams: 10/18/24 01:21 10/18/24 01:21 Lab Results 10/18/24 10/18/24 10/18/24 Range/Units 01:21 01:21 01:21 WBC 6.31 (4.50-10.00) 10*3/uL RBC 3.20 L (4.40-5.60) 10*6/uL Hgb 9.5 L (13.0-17.0) g/dL Hct 29.9 L (39.6-50.0) % MCV 93.4 (80.0-97.0) fL MCH 29.7 (27.0-32.0) pg MCHC 31.8 L (32.0-37.0) g/dL Plt Count 171 (140-440) 10*3/uL MPV 9.1 L (9.5-12.2) fL Immature Gran % (Auto) 0.5 % Neutrophils % 58.6 % Lymphocytes % 18.2 % Monocytes % 15.5 % Eosinophils % 6.2 % Basophils % 1.0 % Immature Gran # 0.03 (0.00-0.04) 10*3/uL Neutrophils # 3.70 (1.80-7.70) 10*3/uL Lymphocytes # 1.15 (0.90-5.00) 10*3/uL Monocytes # 0.98 (0.20-1.00) 10*3/uL Eosinophils # 0.39 H (0.04-0.35) 10*3/uL Basophils # 0.06 (0.00-0.10) 10*3/uL PT 10.9 (10.0-12.5) sec INR 1.0 (<1.2) APTT 24.8 (22.0-30.0) sec Sodium 136 L (137-145) mmol/L Potassium 3.9 (3.5-5.1) mmol/L Chloride 94 L (98-107) mmol/L Carbon Dioxide 36 H (22-30) mmol/L Anion Gap 6 mmol/L BUN 33 H (9-20) mg/dL Creatinine 1.71 H (0.66-1.25) mg/dL Est GFR (CKD-EPI)AfAm 43 (>60 ml/min/1.73 sqM) Est GFR (CKD-EPI)NonAf 38 (>60 ml/min/1.73 sqM) Glucose 87 (74-99) mg/dL Calcium 9.0 (8.4-10.2) mg/dL Magnesium 2.0 (1.6-2.3) mg/dL Total Bilirubin 0.3 (0.2-1.3) mg/dL AST 20 (17-59) U/L ALT 15 (4-49) U/L Alkaline Phosphatase 72 (38-126) U/L Troponin I (0.000-0.034) ng/mL NT-Pro-B Natriuret Pep 354 pg/mL Total Protein 5.8 L (6.3-8.2) g/dL Albumin 3.3 L (3.5-5.0) g/dL 10/18/24 Range/Units 01:21 WBC (4.50-10.00) 10*3/uL RBC (4.40-5.60) 10*6/uL Hgb (13.0-17.0) g/dL Hct (39.6-50.0) % MCV (80.0-97.0) fL MCH (27.0-32.0) pg MCHC (32.0-37.0) g/dL Plt Count (140-440) 10*3/uL MPV (9.5-12.2) fL Immature Gran % (Auto) % Neutrophils % % Lymphocytes % % Monocytes % % Eosinophils % % Basophils % % Immature Gran # (0.00-0.04) 10*3/uL Neutrophils # (1.80-7.70) 10*3/uL Lymphocytes # (0.90-5.00) 10*3/uL Monocytes # (0.20-1.00) 10*3/uL Eosinophils # (0.04-0.35) 10*3/uL Basophils # (0.00-0.10) 10*3/uL PT (10.0-12.5) sec INR (<1.2) APTT (22.0-30.0) sec Sodium (137-145) mmol/L Potassium (3.5-5.1) mmol/L Chloride (98-107) mmol/L Carbon Dioxide (22-30) mmol/L Anion Gap mmol/L BUN (9-20) mg/dL Creatinine (0.66-1.25) mg/dL Est GFR (CKD-EPI)AfAm (>60 ml/min/1.73 sqM) Est GFR (CKD-EPI)NonAf (>60 ml/min/1.73 sqM) Glucose (74-99) mg/dL Calcium (8.4-10.2) mg/dL Magnesium (1.6-2.3) mg/dL Total Bilirubin (0.2-1.3) mg/dL AST (17-59) U/L ALT (4-49) U/L Alkaline Phosphatase (38-126) U/L Troponin I <0.012 (0.000-0.034) ng/mL NT-Pro-B Natriuret Pep pg/mL Total Protein (6.3-8.2) g/dL Albumin (3.5-5.0) g/dL Disposition Clinical Impression: CKD (chronic kidney disease) Disposition: HOME SELF-CARE Condition: Fair Additional Instructions: Please monitor blood pressure at home and return if symptoms should develop or there is any new or worsening concerns. Is patient prescribed a controlled substance at d/c from ED?: No Referrals: Sinan Kurtz DO [Primary Care Provider] - 1-2 days Time of Disposition: 02:29
[2024-10-18 01:30] LABS: Basophils # (A) 0.06 10*3/uL (0.00-0.10); Eosinophils # (A) 0.39 10*3/uL (0.04-0.35); Eosinophils % (A) 6.2 %; HCT 29.9 % (39.6-50.0); HGB 9.5 g/dL (13.0-17.0); Lymphocytes # (A) 1.15 10*3/uL (0.90-5.00); Lymphocytes % (A) 18.2 %; MCH 29.7 pg (27.0-32.0); MCHC 31.8 g/dL (32.0-37.0); MCV 93.4 fL (80.0-97.0); Mean Platelet Volume 9.1 fL (9.5-12.2); Monocytes # (A) 0.98 10*3/uL (0.20-1.00); Monocytes % (A) 15.5 %; Neutrophils % (A) 58.6 %; Platelet Count 171 10*3/uL (140-440); RDW 13.2 % (11.5-14.5); WBC 6.31 10*3/uL (4.50-10.00)
[2024-10-18 01:48] LABS: Partial Thromboplastin Time 24.8 sec (22.0-30.0); Prothrombin Time 10.9 sec (10.0-12.5)
[2024-10-18 02:16] LABS: ALT 15 U/L (4-49); AST 20 U/L (17-59); African American GFR (CKD) 43 (>60 ml/min/1.73 sqM); Albumin 3.3 g/dL (3.5-5.0); Alkaline Phosphatase 72 U/L (38-126); Anion Gap 6 mmol/L; Blood Urea Nitrogen 33 mg/dL (9-20); Carbon Dioxide 36 mmol/L (22-30); Chloride 94 mmol/L (98-107); Glucose 87 mg/dL (74-99); Non-African American GFR(CKD) 38 (>60 ml/min/1.73 sqM); Potassium 3.9 mmol/L (3.5-5.1); Sodium 136 mmol/L (137-145); Total Bilirubin 0.3 mg/dL (0.2-1.3); Total Protein 5.8 g/dL (6.3-8.2)
[2024-10-18 02:24] LABS: NT-Pro-B-Type Natriuretic Pept 354 pg/mL
[2024-10-18 02:45] VITALS: BP 123/64; PULSE 77
--- NOTE | 2024-10-18 05:05 | XR ---
EXAM: XR Chest, 2 Views CLINICAL HISTORY: ITS.REASON XR Reason: Chest Pain TECHNIQUE: Frontal and lateral views of the chest. COMPARISON: No relevant prior studies available. FINDINGS: Lungs: Unremarkable. No consolidation. Pleural space: Unremarkable. No pneumothorax. Heart: Unremarkable. No cardiomegaly. Mediastinum: Unremarkable. Bones/joints: Unremarkable. IMPRESSION: No consolidation.
== END 2024-10-18 02:48 | disposition home or self-care (01) ==
LOC: EC 00:09
DX: I13.0 Hypertensive heart and chronic kidney disease with heart failure and stage 1 through stage 4 chronic kidney disease, or unspecified chronic kidney disease (principal); N18.9 Chronic kidney disease, unspecified; I50.9 Heart failure, unspecified; J43.9 Emphysema, unspecified; I45.10 Unspecified right bundle-branch block; Z79.899 Other long term (current) drug therapy; Z88.8 Allergy status to other drugs, medicaments and biological substances; Z87.891 Personal history of nicotine dependence
CPT/HCPCS: 36415; 71046; 80053; 83735; 83880; 84484; 85025; 85610; 85730; 93005; 99285

== ENCOUNTER → 2024-11-06 | Outpatient (CLI) | payer OTHER ==
--- NOTE | 2024-11-06 14:40 | MR ---
INDICATION: Patient age:Male; 78 years old; Reason for study: M54.59 OTHER LOW BACK PAIN; [facility]. COMPARISONS: CT lumbar spine 10/02/2024 TECHNIQUE: Multi planar, multi sequence imaging was performed utilizing: T1-weighted, T2-weighted, a nd turbo inversion recovery imaging of the lumbar spine. The patient was not given contrast. FINDINGS: The lumbar vertebral bodies do have preserved heights. Grade 1 retrolisthesis of L2 on L3 and L5 on S1. Mild dextrocurvature of the lumbar spine with apex at L3. Multilevel anterior osteophyt osis and facet arthropathy of the lumbar spine. Postsurgical changes from laminectomy at L3-L5. Multi level disc desiccation is present. The conus medullaris and the distal spinal cord do appear unremar kable with regards to their signal intensity and morphology. Subcutaneous edema of the back and poste rior right lower paravertebral musculature. T12-L1: No significant disc pathology is identified. The spinal canal and neural foramen are patent L1-L2: No significant disc pathology is identified. The spinal canal and neural foramen are patent. L2-L3: Grade 1 retrolisthesis. Broad-based disc bulge resulting in minimal central canal stenosis. B ilateral facet arthropathy. Mild right and moderate left neural foraminal stenosis. L3-L4: Postsurgical changes from laminectomy. Broad-based disc bulge without significant spinal daxa l stenosis. Bilateral facet arthropathy. Moderate bilateral neural foraminal stenosis. L4-L5: Postsurgical changes from laminectomy. Minimal broad-based disc bulge. No significant spinal c anal stenosis. Bilateral facet arthropathy. Mild to moderate bilateral neural foraminal stenosis. L5-S1: Postsurgical changes from laminectomy. Grade 1 retrolisthesis. Tiny central disc protrusion ndiaye perimposed upon a broad-based disc bulge. No significant spinal canal stenosis. Bilateral facet arthr opathy. Moderate to severe bilateral neural foraminal stenosis. Other significant findings: Postsurgical changes from right nephrectomy. IMPRESSION: 1. No evidence for significant spinal canal stenosis. 2. L2 level disc degeneration with associated osteoarthritic changes as described above. 3. Postsurgical changes from laminectomy at L3-L5. [facility], , 11/06/2024 2:38 PM
== END | disposition home or self-care (01) ==
LOC: RADMRIMAIN 11:39
PROVIDERS: ATTEND Family Medicine
DX: M51.360 Other intervertebral disc degeneration, lumbar region with discogenic back pain only (principal); M47.816 Spondylosis without myelopathy or radiculopathy, lumbar region
CPT/HCPCS: 72148